=== PATIENT | female | born 1995 | race Caucasian/White ===

== ENCOUNTER 2024-02-11 08:08 | Outpatient (OUT) | payer OTHER, SELFPAY ==
--- NOTE | 2024-02-11 08:11 | US_ITS ---
[address] [address] Patient Name: RADAMES BENJAMIN MRN: [id number] date: 1995 Sex: F Assigned Patient Location: [facility] Current Patient Location: [facility] Accession/Order Number: [id number] Exam Date: 02/11/2024 08:11 Report Date: 02/11/2024 08:47 At the request of: SCOTTY SULLIVAN Procedure: US OB transvaginal EXAMINATION: US OB transvaginal HISTORY: MISSED MENSES COMPARISON: No relevant comparison available. FINDINGS: Gutierres intrauterine gestation Gestational sac: Normal morphology, 2.27 cm, 6 weeks 6 days CRL: 4.6 mm, 6 weeks 1 day Yolk sac: 1.5 mm Heart rate: 142 beats minute Cervix: Closed, 3.5 cm The uterus is normal, anteverted, retroflexed The right ovary is normal. The left ovary is not visualized Clinical age: 7 weeks 3 days Clinical SUSANNA: 09/26/2024 Ultrasound age: 6 weeks 1 day Ultrasound SUSANNA: 10/05/2024 US/US OB transvaginal IMPRESSION: Viable gutierres intrauterine gestation measuring 6 weeks 1 day Electronically authenticated by: IRINEO COMBS Date: 02/11/2024 08:47
== END 2024-02-11 08:09 | disposition home or self-care (01) ==
LOC: NOMS 08:08
PROVIDERS: PCP Family Medicine; Visit Provider Obstetrics & Gynecology
DX: Z34.91 Encounter for supervision of normal pregnancy, unspecified, first trimester (principal)
CPT/HCPCS: 76817

== ENCOUNTER 2024-02-18 11:48 | Emergency (ER) | payer SELFPAY ==
[2024-02-18 12:01] VITALS: BP 160/84; PULSE 98; TEMP 36.8; O2SAT 98
[2024-02-18 12:43] LABS: Bilirubin Urine NEGATIVE (NEGATIVE); Blood Urine NEGATIVE (NEGATIVE); Clarity Urine CLEAR (CLEAR); Color Urine YELLOW (YELLOW); Glucose Urine UA NEGATIVE (NEGATIVE); Ketones Urine NEGATIVE (NEGATIVE); Leukocyte Esterase Urine NEGATIVE (NEGATIVE); Nitrite Urine NEGATIVE (NEGATIVE); Protein Urine NEGATIVE (NEG/TRACE); Specific Gravity Urine 1.025 (1.005-1.025); pH Urine 6.5 (5.0-9.0)
[2024-02-18 12:55] LABS: Bacteria Urine MODERATE #/HPF (NONE SEEN); Cast Seen? NONE SEEN #/LPF (NONE SEEN); Crystals Seen? None Seen #/HPF (None Seen); Mucus Urine LARGE (NONE SEEN); RBC Urine 0-2 #/HPF (0-2); Squamous Epithelial Cell Urine MODERATE #/LPF (NONE/RARE); Urine Culture Indicated YES
[2024-02-18 13:38] VITALS: BP 131/77
--- NOTE | 2024-02-18 14:21 | ED.GENADUL1 ---
HPI HPI - General Adult General Chief complaint: OB/Uterine Contractions Stated complaint: HIGH BLOOD PRESSURE Time Seen by Provider: 02/18/24 13:44 Source: patient Mode of arrival: walk-in History of Present Illness HPI narrative: Pt is a 28yo female who is presenting to the ER today with chief complaint of hypertension. Patient has multiple mild side effects that she is relating to either side effects of labetalol or hypertension. Patient is a . Patient's [employer] is Dr. Dhillon. Patient came into the ER today because she knows that her [employer] will be out of town tomorrow. Patient had elevated blood pressure at home today so came to the ER for evaluation and helps to get recommendations from Dr. Dhillon and what to do with her blood pressure before he goes out of town. Patient has a intake appointment next week on February 23. Patient has no vaginal bleeding, no discharge. No belly pain nausea or vomiting. Patient intermittently feels lightheaded, sometimes dizzy, sometimes minimal headache. Patient sometimes feels itchy. Patient has been on labetalol, she increased her dose from 100 to 200 mg twice a day. Patient was sitting in the ER secondary to ER volume and computer national difficulties with [employer]. Patient blood pressure came down to the 130s over 70s in the ER. Patient will check her blood pressure with a wrist cuff at work. Patient does not have her own blood pressure cuff at home. Patient had hypertension throughout her first . No other acute complaints at this time. Patient currently has no headache, vision or hearing changes. No chest pain or shortness of breath. Patient has 2 family members at bedside. REVIEW OF SYSTEMS: Unless otherwise stated in this report the patient's positive and negative responses for review of systems for constitutional, eyes, ENT, cardiovascular, respiratory, gastrointestinal, neurological, , musculoskeletal, and integument systems and related systems to the presenting problem are either stated in the history of present illness or were not pertinent or were negative for the symptoms and/or complaints related to the presenting medical problem vital signs reviewed and patient is not hypoxic. ? General: The patient appears well and in no apparent distress. Patient is resting comfortably on cart. Not toxic, lethargic, or listless. Skin: Warm, dry, no pallor noted. There is no rash noted. Head: Normocephalic, atraumatic Eye: Normal conjunctiva, no drainage, EOMI. PERRL. Ears, Nose, Mouth, and Throat: oral mucosa is moist. Nares patent. Mouth without vesicles. Cardiovascular: Regular Rate and Rhythm, no murmurs, gallops, or rubs Respiratory: Patient is in no distress, no accessory muscle use, lungs are clear to auscultation, no wheezing, rales or rhonchi Back: non-tender, no CVA tenderness bilaterally to percussion. NO CTLS midline or paracervical tenderness to palpation. GI: Soft, no tenderness to palpation, no masses appreciated. No rebound, guarding, or rigidity noted. Musculoskeletal: The patient has full range of motion of all extremities and joints with no difficulty. Patient has no motor, no sensory deficits. Neurological: A&O x4, normal speech, no focal neurological deficits. Psychiatric: Cooperative Musculoskeletal: The patient has full range of motion of all extremities and joints with no difficulty. Patient has no motor, no sensory deficits. Neurological: A&O x4, normal speech, no focal neurological deficits. Psychiatric: Cooperative Related Data Home Medications ?Medication ?Instructions ?Recorded ?Confirmed citalopram 20 mg tablet 20 mg PO DAILY 02/18/24 02/18/24 labetalol 100 mg tablet 200 mg PO Q12H 02/18/24 02/18/24 Previous Rx's ?Medication ?Instructions ?Recorded ondansetron 4 mg disintegrating 4 mg PO Q4H PRN nausea and 02/18/24 tablet vomiting 3 days #6 tabs Allergies Allergy/AdvReac Type Severity Reaction Status Date / Time No Known Drug Allergies Allergy Verified 02/18/24 12:01 Opioid HPI Opioid Management Most Recent Opioid Data: No Data to Display Exam Constitutional Vital Signs, click to edit/add: Last Vital Signs Temp 98.2 F 02/18/24 12:01 Pulse 82 02/18/24 14:25 Resp 18 02/18/24 14:25 BP 130/70 02/18/24 14:25 Pulse Ox 100 02/18/24 14:25 O2 Del Method Room Air 02/18/24 12:01 Course Vital Signs Vital signs: Vital Signs Temperature 98.2 F 02/18/24 12:01 Pulse Rate 98 H 02/18/24 12:01 Respiratory Rate 18 02/18/24 12:01 Blood Pressure 160/84 H 02/18/24 12:01 Pulse Oximetry 98 02/18/24 12:01 Oxygen Delivery Method Room Air 02/18/24 12:01 Temperature 98.2 F 02/18/24 12:01 Pulse Rate 82 02/18/24 14:25 Respiratory Rate 18 02/18/24 14:25 Blood Pressure 130/70 02/18/24 14:25 Pulse Oximetry 100 02/18/24 14:25 Oxygen Delivery Method Room Air 02/18/24 12:01 Medical Decision Making MDM Narrative Medical decision making narrative: Patient blood pressure has come down on its own. Patient's case was discussed with LUIS F Ceballos from the [employer] office who is also working the ER today. I also discussed the case with Dr. Dhillon. Patient will be starting to take 200 mg of labetalol 3 times a day. Patient will follow-up next Wednesday on February 21 in the office with Madisyn Silvestre for reevaluation of hypertension in the OB office. Patient is asymptomatic at discharge. Dr. Dhillon was kind enough to speak to the patient in the room on the telephone in the ER today. Madisyn Silvestre spoke to the patient at discharge as well and spoke to members in the room in the ER Lab Data Labs: Lab Results 02/18/24 Range/Units 12:07 Urine Color Yellow (YELLOW) Urine Clarity Clear (CLEAR) Urine pH 6.5 (5.0-9.0) Ur Specific [place] 1.025 (1.005-1.025) Urine Protein Negative (NEG/TRACE) mg/dL Urine Glucose (UA) Negative (NEGATIVE) mg/dL Urine Ketones Negative (NEGATIVE) mg/dL Urine Occult Blood Negative (NEGATIVE) Urine Nitrite Negative (NEGATIVE) Urine Bilirubin Negative (NEGATIVE) Urine Urobilinogen 1.0 (0.2-1.0) EU/dL Ur Leukocyte Esterase Negative (NEGATIVE) Urine RBC 0-2 (0-2) #/HPF Urine WBC 2-5 A (NONE SEEN) #/HPF Ur Squamous Epith Cells Moderate A (NONE/RARE) #/LPF Urine Crystals None seen (None Seen) #/HPF Urine Bacteria Moderate A (NONE SEEN) #/HPF Urine Casts None seen (NONE SEEN) #/LPF Urine Mucus Large A (NONE SEEN) Ur Culture Indicated? Yes Discharge Plan Discharge Stand Alone Forms: Portal Instructions Chief Complaint: OB/Uterine Contractions Clinical Impression: Hypertension, Patient Disposition: Home, Self-Care Time of Disposition Decision: 14:16 Condition: Fair Prescriptions / Home Meds: New ondansetron 4 mg tablet,disintegrating 4 mg PO Q4H PRN (Reason: nausea and vomiting) 3 Days Qty: 6 0RF No Action citalopram 20 mg tablet 20 mg PO DAILY labetalol 100 mg tablet 200 mg PO Q12H Print Language: Luxembourger Instructions: (ED), Hypertension (ED) Additional Instructions: Increase your labetolol 200mg to three times a day Call Wednesday AM to be on the schedule for Wednesday to Madisyn KERNS in Dr Dhillon office Use zofran as needed for nausea Referrals: Hernán Mccarthy MD [Primary Care Provider] - 1 week Discharge Date/Time: 02/18/24 14:26
[2024-02-18 14:25] VITALS: BP 130/70; PULSE 82; O2SAT 100
== END 2024-02-18 14:26 | disposition home or self-care (01) ==
PROVIDERS: Emergency Provider Emergency Medicine; PCP Family Medicine
DX: O16.1 Unspecified maternal hypertension, first trimester (principal); Z3A.08 8 weeks gestation of pregnancy
CPT/HCPCS: 81001; 87086; 99283

== ENCOUNTER 2024-03-15 13:40 | Outpatient (OUT) | payer OTHER, SELFPAY ==
[2024-03-15 14:59] LABS: Basophils Absolute Auto 0.1 10^3/uL (0.0-0.1); Basophils Percent Auto 0.4 % (0.2-2.0); Eosinophils Absolute Auto 0.1 10^3/uL (0.0-0.7); Eosinophils Percent Auto 0.3 % (0.9-7.0); Hematocrit 42.7 % (36.0-48.0); Hemoglobin 14.7 g/dL (12.0-16.0); Immature Granulocytes Abs Auto 0.17 10^3/uL (0.00-0.03); Lymphocytes Absolute Auto 1.8 10^3/uL (1.2-3.8); Lymphocytes Percent Auto 10.4 % (20.5-60.0); Mean Corpuscular HGB Conc 34.4 g/dL (29.9-35.2); Mean Corpuscular Hemoglobin 31.1 pg (26.7-34.0); Mean Corpuscular Volume 90.3 fL (81.0-99.0); Mean Platelet Volume 10.8 fL (9.5-13.5); Monocytes Absolute Auto 0.8 10^3/uL (0.3-0.8); Monocytes Percent Auto 4.5 % (1.7-12.0); Neutrophils Absolute Auto 14.1 10^3/uL (1.4-6.5); Neutrophils Percent Auto 83.4 % (43.0-75.0); Platelet Count 278 10^3/uL (150-450); Red Blood Count 4.73 10^6/uL (4.20-5.40); Red Cell Distribution Width 11.6 % (11.0-15.0); White Blood Count 16.8 10^3/uL (4.0-11.0)
[2024-03-15 16:12] LABS: Estimated Average Glucose 91 mg/dL; Glycohemoglobin A1C 4.8 % (4.5-6.2)
[2024-03-16 06:10] LABS: HBsAg Screen Negative (Negative); HCV Ab Non Reactive (Non Reactive)
[2024-03-16 07:11] LABS: Rubella Antibodies, IgG 1.94 index (Immune >0.99)
[2024-03-16 13:09] LABS: Rapid Plasma Reagin, Quant Non Reactive titer (NonRea<1:1)
[2024-03-18 01:08] LABS: Final Interpretation HIV Negative (.); HIV 1 Ab Non Reactive (Non Reactive); HIV 2 Ab Non Reactive (Non Reactive); HIV Ab/p24 Ag Screen Preliminary Reactive (Non Reactive); HIV-1 RNA Non Reactive (Non Reactive); HIV-2 RNA Non Reactive (Non Reactive); Interpretation: Negative (.)
== END 2024-03-15 13:41 | disposition home or self-care (01) ==
LOC: LAB 13:41
PROVIDERS: PCP Family Medicine; Visit Provider Obstetrics & Gynecology
DX: Z36.0 Encounter for antenatal screening for chromosomal anomalies (principal); N92.6 Irregular menstruation, unspecified
CPT/HCPCS: 36415; 83036; 85025; 86592; 86702; 86762; 86803; 86850; 86900; 86901; 87086; 87340; 87389; 87535

== ENCOUNTER 2024-05-18 10:35 | Outpatient (OUT) | payer OTHER, SELFPAY ==
--- NOTE | 2024-05-18 10:39 | US_ITS ---
[address] [address] Patient Name: RADAMES BENJAMIN MRN: [id number] date: 1995 Sex: F Assigned Patient Location: [facility] Current Patient Location: [facility] Accession/Order Number: [id number] Exam Date: 05/18/2024 10:40 Report Date: 05/18/2024 12:45 At the request of: SCOTTY SULLIVAN Procedure: US OB anatomy EXAMINATION: US OB anatomy, US OB cervical length HISTORY: ANATOMY COMPARISON: No relevant comparison available. TECHNIQUE: Transabdominal sonographic examination was performed for obstetrical and evaluation. FINDINGS: Number: 1 Heart Rate: 159 bpm H.B. /min Amniotic Fluid Volume: Subjectively normal position: Transverse presentation, transverse lie Placental Location: Anterior, the placental edge is 5.4 cm in the internal cervical os Cervix Length: 4.91 cm , closed Normal anatomy: Lateral ventricles, cerebellum, posterior fossa, nose, lips, orbits, four-chamber heart, diaphragm, stomach, kidneys, abdominal cord insertion, bladder, umbilical arteries, extremities Nonvisualized: RVOT, LVOT Suboptimal visualization, three-vessel cord, spine BIOMETRY: BPD: 4.82 cm; 20 weeks 4 days; 73.50 % HC: 18.55 cm; 20 weeks 6 days; 80.70 % AC: 17.28 cm; 22 weeks 2 days; 96.20 % FL: 3.29 cm; 20 weeks 2 days; 52.60 % EFW:433.92 g; 97 %, 15 ounces FL/AC: 19.04 FL/BPD: 68.26 HC/AC: 1.07 GESTATIONAL AGE: Age by EDC: 20 weeks 0 days SUSANNA by EDC: 2024-10-05 Age by current US: 21 weeks 0 days SUSANNA by current US: 2024-09-28 US/US OB anatomy IMPRESSION: Suboptimal nonvisualization of anatomy as detailed related to maternal body habitus and position Viable intrauterine gestation measuring 20 weeks 0 days Closed cervix measuring 5 cm in length *Reference: [employer] Practice Guideline for the performance of Obstetric Ultrasound Examinations, May 02, 2007. Electronically authenticated by: IRINEO COMBS Date: 05/18/2024 12:45
--- NOTE | 2024-05-18 10:39 | US_ITS ---
[address] [address] Patient Name: RADAMES BENJAMIN MRN: [id number] date: 1995 Sex: F Assigned Patient Location: [facility] Current Patient Location: [facility] Accession/Order Number: [id number] Exam Date: 05/18/2024 10:40 Report Date: 05/18/2024 12:45 At the request of: SCOTTY SULLIVAN Procedure: US OB cervical length EXAMINATION: US OB anatomy, US OB cervical length HISTORY: ANATOMY COMPARISON: No relevant comparison available. TECHNIQUE: Transabdominal sonographic examination was performed for obstetrical and evaluation. FINDINGS: Number: 1 Heart Rate: 159 bpm H.B. /min Amniotic Fluid Volume: Subjectively normal position: Transverse presentation, transverse lie Placental Location: Anterior, the placental edge is 5.4 cm in the internal cervical os Cervix Length: 4.91 cm , closed Normal anatomy: Lateral ventricles, cerebellum, posterior fossa, nose, lips, orbits, four-chamber heart, diaphragm, stomach, kidneys, abdominal cord insertion, bladder, umbilical arteries, extremities Nonvisualized: RVOT, LVOT Suboptimal visualization, three-vessel cord, spine BIOMETRY: BPD: 4.82 cm; 20 weeks 4 days; 73.50 % HC: 18.55 cm; 20 weeks 6 days; 80.70 % AC: 17.28 cm; 22 weeks 2 days; 96.20 % FL: 3.29 cm; 20 weeks 2 days; 52.60 % EFW:433.92 g; 97 %, 15 ounces FL/AC: 19.04 FL/BPD: 68.26 HC/AC: 1.07 GESTATIONAL AGE: Age by EDC: 20 weeks 0 days SUSANNA by EDC: 2024-10-05 Age by current US: 21 weeks 0 days SUSANNA by current US: 2024-09-28 US/US OB cervical length IMPRESSION: Suboptimal nonvisualization of anatomy as detailed related to maternal body habitus and position Viable intrauterine gestation measuring 20 weeks 0 days Closed cervix measuring 5 cm in length *Reference: [employer] Practice Guideline for the performance of Obstetric Ultrasound Examinations, May 02, 2007. Electronically authenticated by: IRINEO COMBS Date: 05/18/2024 12:45
--- OUTSIDE RECORDS SUMMARY | 2024-05-18 10:39 | XMS_ITS | CCD ---
Author Organization [facility] Care Team Providers Care Client Director Name Role Phone LAURIE, DR FAJARDO Consulting Unavailable LAURIE, DR FAJARDO Primary Care Unavailable LAURIE, DR FAJARDO Attending Unavailable LAURIE, DR FAJARDO Admitting Unavailable LAURIE, DR FAJARDO Consulting Unavailable LUIS MIGUEL, PENELOPE Admitting Unavailable LUIS MIGUEL, PENELOPE Attending Unavailable MIGUEL ÁNGEL, DR HANNA Primary Care Unavailable DOMINGO, DR MICHELLE Matthews Consulting Unavailable PENELOPE BOLANOS Consulting Unavailable LAURIE, DR FAJARDO Consulting Unavailable LAURIE, DR FAJARDO Attending Unavailable MIGUEL ÁNGEL, DR HANNA Primary Care Unavailable LAURIE, DR FAJARDO Admitting Unavailable LAURIE, DR FAJARDO Attending Unavailable CIRO, DR HILL Consulting Unavailable MIGUEL ÁNGEL, DR HANNA Primary Care Unavailable LAURIE, DR FAJARDO Admitting Unavailable LAURIE, DR FAJARDO Procedure Practitioner Unavailab le LAUIRE, DR FAJARDO Consulting Unavailable PILY VANG Consulting Unavailab LEXIE Bender Consulting Unavailable LAURIE, DR FAJARDO Admitting Unavailable MIGUEL ÁNGEL, DR HANNA Primary Care Unavailable LAURIE, DR FAJARDO Attending Unavailable LAURIE, DR FAJARDO Consulting Unavailable LAURIE, DR FAJARDO Attending Unavailable MIGUEL ÁNGEL, DR HANNA Primary Care Unavailable LAURIE, DR FAJARDO Admitting Unavailable LAURIE, DR FAJARDO Consulting Unavailable LAURIE, DR FAJARDO Admitting Unavailable LAURIE, DR FAJARDO Attending Unavailable MIGUEL ÁNGEL, DR HANNA Primary Care Unavailable GARRET, DR IRINEO Pompa Consulting Unavailable LAURIE, DR FAJARDO Attending Unavailable LAURIE, DR FAJARDO Admitting Unavailable MIGUEL ÁNGEL, DR HANNA Primary Care Unavailable LAURIE, DR FAJARDO Consulting Unavailable LAURIE, DR FAJARDO Attending Unavailable LAURIE, DR FAJARDO Consulting Unavailable MIGUEL ÁNGEL, DR HANNA Primary Care Unavailable LAURIE, DR FAJARDO Admitting Unavailable LAURIE, DR FAJARDO Consulting Unavailable PENELOPE BOLANOS Admitting Unavailable MIGUEL ÁNGEL, DR HANNA [facility] Care Unavailable PENELOPE BOLANOS Attending Unavailable MANUELEBER, DR MICHELLE Matthews Consulting Unavailable PENELOPE BOLANOS Consulting Unavailable MIGUEL ÁNGEL, DR HANNA [facility] Care Unavailable GARRET, DR IRINEO [place] Consulting Unavailable LAURIE, DR FAJARDO Attending Unavailable LAURIE, DR FAJARDO Admitting Unavailable LAURIE, DR FAJARDO Consulting Unavailable LAURIE, DR FAJARDO Consulting Unavailable LUIS MIGUEL, PENELOPE Admitting Unavailable LUIS MIGUEL, PENELOPE Attending Unavailable MIGUEL ÁNGEL, DR HANNA [facility] Care Unavailable DOMNIGO, DR MICHELLE Matthews Consulting Unavailable LAURIE, DR FAJARDO Attending Unavailable LAURIE, DR FAJARDO Admitting Unavailable DAIANAY, DR HANNA [facility] Care Unavailable DAIANAY, DR HANNA [facility] Care Unavailable LAURIE, DR FAJARDO Attending Unavailable LAURIE, DR FAJARDO Admitting Unavailable LAURIE, DR FAJARDO Attending Unavailable LAURIE, DR FAJARDO Admitting Unavailable DAIANAY, DR HANNA [facility] Unavailable LAURIE, DR FAJARDO Consulting Unavailable LAURIE, DR FAJARDO Attending Unavailable MIGUEL ÁNGEL, DR HANNA [facility] Unavailable LAURIE, DR FAJARDO Admitting Unavailable LAURIE, DR FAJARDO Admitting Unavailable GARRET, DR IRINEO [place] Consulting Unavailable MIGUEL ÁNGEL, DR HANNA [facility] Unavailable LAURIE, DR FAJARDO Attending Unavailable LAURIE, DR FAJARDO Consulting Unavailable LAURIE, DR FAJARDO Attending Unavailable MIGUEL ÁNGEL, DR HANNA [facility] Unavailable LAURIE, DR FAJARDO Admitting Unavailable MD Jacques Mccarthy Primary Care Provider [phone] DO Terry Dudley Emergency Provider Terry Dudley Admitting Unavailable Terry Dudley Attending Unavailable Jacques Mccarthy Primary Care Unavailable SCOTTY SULLIVAN Attending Unavailable CARYL GAONA Attending Unavailable SCOTTY SULLIVAN Attending Unavailable CARYL GAONA Attending Unavailable Medications Current Medications Medication Drug Class(es) Dates Sig (Normalized) Sig (Original) citalopram 20 mg oral tablet (1 source) Serotonin Reuptake Inhibitor Start: 01-31-2024 take 1 tablet by mouth once daily Citalopram (Celexa) 20 mg tablet Active 20 MG PO Daily January 31, 2024 12:00am labetalol hydrochloride 100 mg oral tablet (1 source) beta-Adrenergic All Start: 01-31-2024 take 100 mg by mouth twice daily Labetalol Active 100 MG PO Twice daily January 31, 2024 12:00am Problems Active Problems Problem Classification Problem Date Documented Date Episodic/Chronic Anxiety disorders (1 source) Anxiety disorder, unspecified; Translations: [ANXIETY DISORDER UNSPECIFIED] Onset: 01-15-2021 Chronic Essential hypertension (1 source) Hypertensive disorder; Translations: [Essential (primary) hypertension] 01-31-2024 Chronic Hypertension complicating ; childbirth and the puerperium (9 sources) Unspecified pre-existing hypertension complicating , third trimester; Translations: [Pre-existing hypertension with pre-eclampsia, complicating childbirth] Onset: 01-08-2021 Chronic Hypertension complicating ; childbirth and the puerperium (5 sources) Unspecified pre-eclampsia, third trimester; Translations: [Gestational [-induced] hypertension without significant proteinuria, first trimester] Onset: 01-14-2021 Episodic Immunizations and screening for infectious disease (1 source) Encounter for screening for human papillomavirus (HPV); Translations: [ENC SCREENING HUMAN PAPILLOMAVIRUS] Onset: 10-09-2021 Episodic Other and delivery including normal (6 sources) Encounter for care and examination of lactating mother; Translations: [Single live ] Onset: 02-11-2021 Episodic Other screening for suspected conditions (not mental disorders or infectious disease) (12 sources) Encounter for screening for malignant neoplasm of cervix; Translations: [Encounter for screening for Streptococcus B] Onset: 12-05-2020 Episodic Unclassified (1 source) CONTACT W/AND (SUSP) EXPOS COVID-19; Translations: [CONTACT W/AND (SUSP) EXPOS COVID-19] Onset: 02-27-2021 Past or Other Problems Problem Classification Problem Date Documented Da te Episodic/Chronic Diabetes mellitus without complication (4 sources) Other abnormal glucose; Translations: [OTHER ABNORMAL GLUCOSE] Onset: 12-12-2020 Episodic Diabetes or abnormal glucose tolerance complicating ; childbirth; or the puerperium (6 sources) Gestational diabetes mellitus in childbirth, diet controlled; Translations: [Gestational diabetes mellitus in , diet controlled] Onset: 05-20-2021 Episodic distress and abnormal forces of labor (1 source) Labor and delivery complicated by stress, unspecified; Translations: [LABOR AND DEL COMP STRESS UNS] Onset: 02-27-2021 Episodic Other complications of (1 source) Other mental disorders complicating , third trimester; Translations: [OTH MENTAL D/O COMP PREG THIRD TRI] Onset: 01-15-2021 Episodic Other connective tissue disease (3 sources) Other specified soft tissue disorders; Translations: [OTHER SPEC SOFT TISSUE DISORDERS] Onset: 01-13-2021 Episodic Residual codes; unclassified (1 source) 37 weeks gestation of ; Translations: [37 WEEKS GESTATION OF ] Onset: 02-27-2021 Episodic Residual codes; unclassified (1 source) 36 weeks gestation of ; Translations: [36 WEEKS GESTATION OF ] Onset: 01-31-2021 Episodic Residual codes; unclassified (1 source) 35 weeks gestation of ; Translations: [35 WEEKS GESTATION OF ] Onset: 01-26-2021 Episodic Residual codes; unclassified (1 source) 34 weeks gestation of ; Translations: [34 WEEKS GESTATION OF ] Onset: 01-24-2021 Episodic Residual codes; unclassified (1 source) 28 weeks gestation of ; Translations: [28 WEEKS GESTATION OF ] Onset: 12-10-2020 Episodic Results Test Name Value Interpretation Reference Range Facility Activated partial thrombopla stin time (aPTT) in platelet poor plasma by coagulation aOrdered By: Terry Dudley on 01-31-2024 aPTT Coag (PPP) [Time] 26.1 s 25.1-36.5 [facility] Comment on above: A hematocrit value g reater than 55% may lead to inaccurate results in coagulation testing. Patients having hematocrit values >55% require a special collection tube for coagulation studies. Please contact the laboratory at [phone] for redraw instructions. Alanine aminotransferase [En zymatic activity/volume] in Serum or PlasmaOrdered By: Terry Dudley on 01-31-2024 ALT [Catalytic activity/Vol] 22 U/L Normal 7-52 [facility] Comment on above: Performed By: #### H S TROP, PTT, CMP, DDIMER, BNP, CK, PT, CBC #### [address] Albumin [Mass/volume] in Ser um or Plasma by Bromocresol green (BCG) dye binding methoOrdered By: Terry Dudley on 01-31-2024 Albumin BCG dye [Mass/Vol] 4.7 g/dL 3.5-5.7 [facility] Alkaline phosphatase [Enzyma tic activity/volume] in Serum or PlasmaOrdered By: Terry Dudley on 01-31-2024 ALP [Catalytic activity/Vol] 67 U/L Normal 34-104 [facility] Comment on above: Performed By: #### H S TROP, PTT, CMP, DDIMER, BNP, CK, PT, CBC #### [address] Aspartate aminotransferase [ Enzymatic activity/volume] in Serum or PlasmaOrdered By: Terry Dudley on 01-31-2024 AST [Catalytic activity/Vol] 17 U/L Normal 13-39 [facility] Comment on above: Performed By: #### H S TROP, PTT, CMP, DDIMER, BNP, CK, PT, CBC #### [address] Automated basophil %Ordered By: Terry Dudley on 01-31-2024 Basophils/100 WBC (Bld) 0.6 % Normal . [facility] Comment on above: Performed By: #### H S TROP, PTT, CMP, DDIMER, BNP, CK, PT, CBC #### [address] Automated basophil countOrde red By: Terry Dudley on 01-31-2024 Basophils (Bld) [#/Vol] 0.1 10*3/uL Normal 0.0-0.2 [facility] Comment on above: Result Comment: PERF ORMED BY: [place] [address] PATHOLOGIST MEDICAL APPOINTMENT CLERK CARLOS HITCHCOCK M.D. Performed By: #### H S TROP, PTT, CMP, DDIMER, BNP, CK, PT, CBC #### [address] Automated blood monocyte cou ntOrdered By: Terry Dudley on 01-31-2024 Monocytes (Bld) [#/Vol] 1.3 10*3/uL High 0.0-0.8 [facility] Comment on above: Performed By: #### H S TROP, PTT, CMP, DDIMER, BNP, CK, PT, CBC #### [facility] [address] [place] [address] Automated eosinophil %Ordere d By: Terry Dudley on 01-31-2024 Eosinophils/100 WBC (Bld) 0.3 % Normal . [facility] Comment on above: Performed By: #### H S TROP, PTT, CMP, DDIMER, BNP, CK, PT, CBC #### [address] Automated eosinophil countOr dered By: Terry Dudley on 01-31-2024 Eosinophils (Bld) [#/Vol] 0.1 10*3/uL Normal 0.0-0.45 [facility] Comment on above: Performed By: #### H S TROP, PTT, CMP, DDIMER, BNP, CK, PT, CBC #### [address] Automated monocyte %Ordered By: Terry Dudley on 01-31-2024 Monocytes/100 WBC (Bld) 7.5 % Normal . [facility] Comment on above: Performed By: #### H S TROP, PTT, CMP, DDIMER, BNP, CK, PT, CBC #### [address] Automated neutrophil %Ordere d By: Terry Dudley on 01-31-2024 Neutrophils/100 WBC (Bld) 79.8 % Normal . [facility] Comment on above: Performed By: #### H S TROP, PTT, CMP, DDIMER, BNP, CK, PT, CBC #### [address] BNP ser/plasOrdered By: Delgado Dudley on 01-31-2024 Natriuretic peptide B (Bld) [Mass/Vol] 30.0 pg/mL Normal 5-100 [facility] Comment on above: Result Comment: PERF ORMED BY: [place] [address] PATHOLOGIST MEDICAL APPOINTMENT CLERK CARLOS HITCHCOCK M.D. Performed By: #### H S TROP, PTT, CMP, DDIMER, BNP, CK, PT, CBC #### [address] Bilirubin Test strip Ql (U)O rdered By: Terry Dudley on 01-31-2024 Bilirubin Ql (U) Negative Negative [facility] Bilirubin.total [Mass/volume ] in Serum or PlasmaOrdered By: Terry Dudley on 01-31-2024 Bilirubin [Mass/Vol] 0.5 mg/dL Normal 0.3-1.0 [facility] Comment on above: Performed By: #### H S TROP, PTT, CMP, DDIMER, BNP, CK, PT, CBC #### [place] [address] [place] Calcium [Mass/volume] in Ser um or PlasmaOrdered By: Terry Dudley on 01-31-2024 Calcium [Mass/Vol] 9.6 mg/dL Normal 8.6-10.3 [facility] Comment on above: Performed By: #### H S TROP, PTT, CMP, DDIMER, BNP, CK, PT, CBC #### [place] [address] [place] Carbon dioxide, total [Moles /volume] in Serum or PlasmaOrdered By: Terry Dudley on 01-31-2024 CO2 [Moles/Vol] 30.1 mmol/L Normal 21.0-31.0 [facility] Comment on above: Performed By: #### H S TROP, PTT, CMP, DDIMER, BNP, CK, PT, CBC #### [place] [address] [place] Chloride [Moles/volume] in S marty or PlasmaOrdered By: Terry Dudley on 01-31-2024 Chloride [Moles/Vol] 101 mmol/L Normal 98-107 [facility] Comment on above: Performed By: #### H S TROP, PTT, CMP, DDIMER, BNP, CK, PT, CBC #### [address] Color of Urine by AutoOrdere d By: Terry Dudley on 01-31-2024 Color (U) Colorless Normal Yellow [facility] Comment on above: Order Comment: Name Collection Type:: Clean-Voided Midstream Performed By: #### U A, UHCG #### [address] Complete Blood Count Auto Di ffon 01-31-2024 Mean Corpuscular HGB Conc 34.6 g/dL Normal 32.0-35.0 [facility] Comment on above: Performed By: #### H S TROP, PTT, CMP, DDIMER, BNP, CK, PT, CBC #### [address] Monocytes/100 WBC (Bld) 14.85 % Normal 0.00-20.00 [facility] Comment on above: Performed By: #### H S TROP, PTT, CMP, DDIMER, BNP, CK, PT, CBC #### [address] NRBC% 0.0 /100{WBC} Normal 0-0.5 [facility] Comment on above: Performed By: #### H S TROP, PTT, CMP, DDIMER, BNP, CK, PT, CBC #### [address] Comprehensive Metabolic Pane urszula 01-31-2024 Albumin [Mass/Vol] 4.7 g/dL Normal 3.5-5.7 [facility] Comment on above: Performed By: #### H S TROP, PTT, CMP, DDIMER, BNP, CK, PT, CBC #### [address] Creatinine Clr Calc Pharmacy 119.17 Normal [facility] Comment on above: Result Comment: PERF ORMED BY: [place] [address] PATHOLOGIST MEDICAL APPOINTMENT CLERK CARLOS HITCHCOCK M.D. Performed By: #### H S TROP, PTT, CMP, DDIMER, BNP, CK, PT, CBC #### [address] GFR/1.73 sq M.predicted MDRD (S/P/Bld) [Vol rate/Area] mL/min/{1.73_m2} Normal [facility] Comment on above: Performed By: #### H S TROP, PTT, CMP, DDIMER, BNP, CK, PT, CBC #### [address] Creatine kinase [Enzymatic a ctivity/volume] in Serum or PlasmaOrdered By: Terry Dudley on 01-31-2024 CK [Catalytic activity/Vol] 76 U/L Normal 30-223 [facility] Comment on above: Performed By: #### H S TROP, PTT, CMP, DDIMER, BNP, CK, PT, CBC #### [address] Creatinine [Mass/volume] in Serum or PlasmaOrdered By: Terry Dudley on 01-31-2024 Creatinine [Mass/Vol] 0.80 mg/dL Normal 0.60-1.20 [facility] Comment on above: Performed By: #### H S TROP, PTT, CMP, DDIMER, BNP, CK, PT, CBC #### [address] D-Dimer High Sensitivityon 0 01-31-2024 D-Dimer High Sensitivity < 200 Normal 0-243 [facility] Comment on above: Result Comment: The reference range for D-dimer is <243 ng/mL D-dimer units. D-dimer results must be used in conjunction with a clinical pretest probability (PTP) assessment model for deep vein thrombosis (DVT) and pulmonary embolism (PE). Results <230 ng/mL d-dimer units can be used as a negative predictor in patients with low or moderate probability for DVT/PE. Results above the exclusion threshold of 230 ng/ml D-dimer units for DVT/PE may indicate the need for further diagnostic testing. D-Dimer can be increased in hospitalized patients due to co-morbid conditions. A hematocrit value greater than 55% may lead to inaccurate results in coagulation testing. Patients having hematocrit values >55% require a special collection tube for coagulation studies. Please contact the laboratory at [phone] for redraw instructions. PERFORMED BY: [place] [address] PATHOLOGIST MEDICAL APPOINTMENT CLERK CARLOS HITCHCOCK M.D. Performed By: #### H S TROP, PTT, CMP, DDIMER, BNP, CK, PT, CBC #### [place] [id number] [facility] ECG 12 lead ECGon 01-31-2024 ECG 12 lead ECG [facility] [place] [address] [place] [address] Electrocardiograph Report Signed Patient: Samantha Benjamin MR#: [id number] : 1995 Acct:[id number] Age/Sex: 28 / F ADM Date: 01/31/24 Loc: ER Room: Type: [facility] ER Attending Dr: Ordering Provider: Terry Dudley DO Date of Service: 01/31/2408/25/1404 ECG/ECG 12 lead ECG: Recheck/Abnormal Lab/Rx Copies to: Test Reason : Blood Pressure : 168/091 mmHG Vent. Rate : 111 BPM Atrial Rate : 111 BPM P-R Int : 126 ms QRS Dur : 080 ms QT Int : 318 ms P-R-T Axes : 079 098 057 degrees QTc Int : 432 ms Sinus tachycardia Rightward axis Borderline ECG No previous ECGs available Confirmed by TERRY DUDLEY DO ([id number]) on 01/31/2024 7:24:49 PM Referred By: Electronically Signed By:TERRY DUDLEY DO Transcribed By: MUS Signed By Terry Dudley DO 1923 Normal [facility] Erythrocyte distribution wid th [Ratio] by Automated countOrdered By: Terry Dudley on 01-31-2024 Erythrocyte distribution width (RBC) [Ratio] 12.4 % Normal 11.9-15.3 [facility] Comment on above: Performed By: #### H S TROP, PTT, CMP, DDIMER, BNP, CK, PT, CBC #### [facility] [address] [id number] [facility] Erythrocytes [#/volume] in B lood by Automated countOrdered By: Terry Dudley on 01-31-2024 RBC (Bld) [#/Vol] 4.93 10*6/uL Normal 3.60-5.00 [facility] Comment on above: Performed By: #### H S TROP, PTT, CMP, DDIMER, BNP, CK, PT, CBC #### [facility] [address] [place] [address] [facility] Fibrin D-dimer [Presence] in Platelet poor plasma by Latex agglutinationOrdered By: Terry Dudley on 01-31-2024 Fibrin D-dimer LA Ql (PPP) < 200 ng/mL 0-243 [facility] Comment on above: The reference range for D-dimer is <243 ng/mL D-dimer units.D-dimer results must be used in conjunction with a clinicalpretest probability (PTP) assessment model for deep veinthrombosis (DVT) and pulmonary embolism (PE). Results <230ng/mL d-dimer units can be used as a negative predictor inpatients with low or moderate probability for DVT/PE.Results above the exclusion threshold of 230 ng/ml D-dimerunits for DVT/PE may indicate the need for furtherdiagnostic testing.D-Dimer can be increased in hospitalized patients due toco-morbid conditions.A hematocrit value greater than 55% may lead to inaccurate results in coagulation testing. Patients having hematocrit values >55% require a special collection tube for coagulation studies. Please contact the laboratory at [phone] for redraw instructions. Glucose [Mass/volume] in Ser um or PlasmaOrdered By: Terry Dudley on 01-31-2024 Glucose [Mass/Vol] 91 mg/dL Normal 70-100 [facility] Comment on above: ADA recommended refe rence rangeRandom Glucose Reference Range is dependent on time and content of last meal. Glucose of more than 200 mg/dL in a nonstressed, ambulatory subject supports the diagnosis of Diabetes Mellitus. Result Comment: [place] om Glucose Reference Range is dependent on time and content of last meal. Glucose of more than 200 mg/dL in a nonstressed, ambulatory subject supports the diagnosis of Diabetes Mellitus. ADA recommended reference range Performed By: #### H S TROP, PTT, CMP, DDIMER, BNP, CK, PT, CBC #### [facility] [address] [place] [address] Glucose [Mass/volume] in Uri ne by Test stripOrdered By: Terry Dudley on 01-31-2024 Glucose Test strip (U) [Mass/Vol] Normal mg/dL Normal [facility] HCG ( test) IA.rapi d Ql (U)Ordered By: Terry Dudley on 01-31-2024 HCG ( test) Ql (U) Positive High [facility] HCG,Urineon 01-31-2024 Beta HCG ( test) Ql (U) Positive High [facility] Comment on above: Order Comment: Name Collection Type:: Clean-Voided Midstream Result Comment: PERF ORMED BY: [place] [address] PATHOLOGIST MEDICAL APPOINTMENT CLERK CARLOS HITCHCOCK M.D. Performed By: #### H S TROP, PTT, CMP, DDIMER, BNP, CK, PT, CBC #### [address] Hematocrit [Volume Fraction] of Blood by Automated countOrdered By: Terry Dudley on 01-31-2024 Hematocrit (Bld) [Volume fraction] 45.1 % Normal 34.0-46.4 [facility] Comment on above: Performed By: #### H S TROP, PTT, CMP, DDIMER, BNP, CK, PT, CBC #### [address] Hemoglobin Test strip Ql (U) Ordered By: Terry Dudley on 01-31-2024 Hemoglobin Ql (U) Negative Negative [facility] Hemoglobin [Mass/volume] in BloodOrdered By: Terry Dudley on 01-31-2024 Hemoglobin (Bld) [Mass/Vol] 15.6 g/dL High 11.8-15.4 [facility] Comment on above: Performed By: #### H S TROP, PTT, CMP, DDIMER, BNP, CK, PT, CBC #### [facility] [address] [place] [address] [place] INR in Platelet poor plasma by Coagulation assayOrdered By: Terry Dudley on 01-31-2024 INR Coag (PPP) [Relative time] 1.2 {INR} Normal [facility] Comment on above: INR Therapeutic Rang e A) Pre- and Peroperative OAT started two weeks before surgery. NOT HIP SURGERY: 1.5 - 2.5 HIP SURGERY: 2 - 3B) Primary and secondary prevention of venous THROMBOSIS: 2 - 3C) Active venous thrombosis, pulmonary embolismand prevention of recurrent venous thrombosis: 2 - 3D) Prevention of arterial thromboembolismincluding patients with mechanical heart valves: 3 - 4.5 Result Comment: INR Therapeutic Range A) Pre- and Peroperative OAT started two weeks before surgery. NOT HIP SURGERY: 1.5 - 2.5 HIP SURGERY: 2 - 3 B) Primary and secondary prevention of venous THROMBOSIS: 2 - 3 C) Active venous thrombosis, pulmonary embolism and prevention of recurrent venous thrombosis: 2 - 3 D) Prevention of arterial thromboembolism including patients with mechanical heart valves: 3 - 4.5 Performed By: #### H S TROP, PTT, CMP, DDIMER, BNP, CK, PT, CBC #### [facility] [address] [place] [address] [place] Ketones [Presence] in Urine by Test stripOrdered By: Terry Dudley on 01-31-2024 Ketones Ql (U) Negative Normal Negative [facility] Comment on above: Order Comment: Name Collection Type:: Clean-Voided Midstream Performed By: #### U A, UHCG #### [facility] [address] [place] [address] [place] Leukocyte esterase [Presence ] in Urine by Test stripOrdered By: Terry Dudley on 01-31-2024 Leukocyte esterase Test strip Ql (U) Negative Normal Negative [facility] Comment on above: Order Comment: Name Collection Type:: Clean-Voided Midstream Performed By: #### U A, UHCG #### [place] [address] [place] Leukocytes [#/volume] correc edna for nucleated erythrocytes in Blood by Automated counOrdered By: Terry Dudley on 01-31-2024 WBC corrected for nucl RBC Auto (Bld) [#/Vol] 17.5 10*3/uL High 3.8-11.6 [facility] Leukocytes [#/volume] in Blo od by Automated countOrdered By: Terry Dudley on 01-31-2024 WBC (Bld) [#/Vol] 17.5 10*3/uL High 3.8-11.6 [facility] Comment on above: Performed By: #### H S TROP, PTT, CMP, DDIMER, BNP, CK, PT, CBC #### [facility] [address] [place] [address] Lymphocytes [#/volume] in Bl ood by Automated countOrdered By: Terry Dudley on 01-31-2024 Lymphocytes (Bld) [#/Vol] 2.1 10*3/uL Normal 1.00-4.8 [facility] Comment on above: Performed By: #### H S TROP, PTT, CMP, DDIMER, BNP, CK, PT, CBC #### [facility] [address] [place] [address] [place] Lymphocytes/100 leukocytes i n Blood by Automated countOrdered By: Terry Dudley on 01-31-2024 Lymphocytes/100 WBC (Bld) 11.8 % Normal . [facility] Comment on above: Performed By: #### H S TROP, PTT, CMP, DDIMER, BNP, CK, PT, CBC #### [facility] [address] [place] [address] [place] MCH [Entitic mass] by Automa edna countOrdered By: Terry Dudley on 01-31-2024 MCH (RBC) [Entitic mass] 31.7 pg Normal 24.7-34.3 [facility] Comment on above: Performed By: #### H S TROP, PTT, CMP, DDIMER, BNP, CK, PT, CBC #### [facility] [address] [place] [address] MCHC Auto (RBC) [Mass/Vol]Or dered By: Terry Dudley on 01-31-2024 MCHC (RBC) [Mass/Vol] 34.6 g/dL 32.0-35.0 [facility] MCV [Entitic volume] by Auto mated countOrdered By: Terry Dudley on 01-31-2024 MCV (RBC) [Entitic vol] 91.4 fL Normal 80-100 [facility] Comment on above: Performed By: #### H S TROP, PTT, CMP, DDIMER, BNP, CK, PT, CBC #### [facility] [address] [place] [address] [place] Monocyte distribution width [Entitic volume] in Blood by AutomatedOrdered By: Terry Dudley on 01-31-2024 Monocyte distribution width Auto (Bld) [Entitic vol] 14.85 % 0.00-20.00 [facility] Neutrophils [#/volume] in Bl ood by Automated countOrdered By: Terry Dudley on 01-31-2024 Neutrophils (Bld) [#/Vol] 14.0 10*3/uL High 1.8-7.7 [facility] Comment on above: Performed By: #### H S TROP, PTT, CMP, DDIMER, BNP, CK, PT, CBC #### [facility] [address] Nitrite Test strip Ql (U)Ord ered By: Terry Dudley on 01-31-2024 Nitrite Ql (U) Negative Negative [facility] No Panel InformationOrdered By: Terry Dudley on 01-31-2024 Estimated GFR (CKD-EPI) > 60.0 mL/Min [facility] Creatinine Clearance (Chem 119.17 [facility] Nucleated erythrocytes [Pres ence] in Blood by Automated countOrdered By: Terry Dudley on 01-31-2024 Nucleated RBC Auto Ql (Bld) 0.0 /100{WBC} 0-0.5 [facility] Partial Thromboplastin Timeo n 01-31-2024 aPTT Coag (Bld) [Time] 26.1 s Normal 25.1-36.5 [facility] e [facility] Comment on above: Result Comment: A he matocrit value greater than 55% may lead to inaccurate results in coagulation testing. Patients having hematocrit values >55% require a special collection tube for coagulation studies. Please contact the laboratory at [phone] for redraw instructions. Performed By: #### H S TROP, PTT, CMP, DDIMER, BNP, CK, PT, CBC #### [facility] [address] Platelet mean volume [Entiti c volume] in Blood by Automated countOrdered By: Terry Dudley on 01-31-2024 Platelet mean volume (Bld) [Entitic vol] 8.7 fL Normal 6.3-10.7 [facility] Comment on above: Performed By: #### H S TROP, PTT, CMP, DDIMER, BNP, CK, PT, CBC #### [facility] [address] Platelets [#/volume] in Bloo d by Automated countOrdered By: Terry Dudley on 01-31-2024 Platelets (Bld) [#/Vol] 297 10*3/uL Normal 150-450 [facility] Comment on above: Performed By: #### H S TROP, PTT, CMP, DDIMER, BNP, CK, PT, CBC #### [facility] [address] Potassium [Moles/volume] in Serum or PlasmaOrdered By: Terry Dudley on 01-31-2024 Potassium [Moles/Vol] 3.4 mmol/L Low 3.5-5.1 [facility] Comment on above: Performed By: #### H S TROP, PTT, CMP, DDIMER, BNP, CK, PT, CBC #### [facility] [address] Protein Test strip (U) [Mass /Vol]Ordered By: Terry Dudley on 01-31-2024 Protein (U) [Mass/Vol] Negative Negative [facility] Protein [Mass/volume] in Ser um or PlasmaOrdered By: Terry Dudley on 01-31-2024 Protein [Mass/Vol] 7.7 g/dL Normal 6.4-8.9 [facility] Comment on above: Performed By: #### H S TROP, PTT, CMP, DDIMER, BNP, CK, PT, CBC #### [facility] [address] [place] [address] Prothrombin time (PT)Ordered By: Terry Dudley on 01-31-2024 PT Coag (PPP) [Time] 14.0 s High 9.0-12.9 [facility] Comment on above: A hematocrit value g reater than 55% may lead to inaccurate results in coagulation testing. Patients having hematocrit values >55% require a special collection tube for coagulation studies. Please contact the laboratory at [phone] for redraw instructions. Result Comment: A he matocrit value greater than 55% may lead to inaccurate results in coagulation testing. Patients having hematocrit values >55% require a special collection tube for coagulation studies. Please contact the laboratory at [phone] for redraw instructions. Performed By: #### H S TROP, PTT, CMP, DDIMER, BNP, CK, PT, CBC #### [address] Serum globulin measurement b y calculation (mass/volume)Ordered By: Terry Dudley on 01-31-2024 Globulin (S) [Mass/Vol] 3.0 g/dL [facility] Comment on above: Performed By: #### H S TROP, PTT, CMP, DDIMER, BNP, CK, PT, CBC #### [address] Serum or plasma albumin/glob ulin mass ratioOrdered By: Terry Dudley on 01-31-2024 Albumin/Globulin [Mass ratio] 1.6 {ratio} [facility] Comment on above: Performed By: #### H S TROP, PTT, CMP, DDIMER, BNP, CK, PT, CBC #### [address] Serum or plasma anion gap de terminationOrdered By: Terry Dudley on 01-31-2024 Anion gap [Moles/Vol] 8.3 mmol/L Normal 6.0-15.0 [facility] Comment on above: Performed By: #### H S TROP, PTT, CMP, DDIMER, BNP, CK, PT, CBC #### [facility] [address] Sodium [Moles/volume] in Ser um or PlasmaOrdered By: Terry Dudley on 01-31-2024 Sodium [Moles/Vol] 136 mmol/L Normal 136-145 [facility] Comment on above: Performed By: #### H S TROP, PTT, CMP, DDIMER, BNP, CK, PT, CBC #### [address] Specific gravity Test strip (U) [Rel density]Ordered By: Terry Dudley on 01-31-2024 Specific gravity (U) [Rel density] 1.005 1.001-1.030 [facility] Troponin I High Sensitivityo n 01-31-2024 Troponin I High Sensitivity 3.5 pg/mL Normal 0.0-15.0 [facility] Comment on above: Result Comment: PERF ORMED BY: [place] [address] PATHOLOGIST MEDICAL APPOINTMENT CLERK CARLOS HITCHCOCK M.D. Performed By: #### H S TROP, PTT, CMP, DDIMER, BNP, CK, PT, CBC #### [address] Troponin I.cardiac [Mass/vol ume] in Serum or Plasma by Detection limit <= 0.01 ng/Ordered By: Terry Dudley on 01-31-2024 Troponin I.cardiac DL <= 0.01 ng/mL [Mass/Vol] 3.5 pg/mL 0.0-15.0 [facility] Urea nitrogen [Mass/volume] in Serum or PlasmaOrdered By: Terry Dudley on 01-31-2024 Urea nitrogen [Mass/Vol] 10 mg/dL Normal 7-25 [facility] Comment on above: Performed By: #### H S TROP, PTT, CMP, DDIMER, BNP, CK, PT, CBC #### [address] Urinalysison 01-31-2024 Bilirubin,Urine Negative Normal Negative [facility] Comment on above: Order Comment: Name Collection Type:: Clean-Voided Midstream Performed By: #### U A, UHCG #### [address] Glucose Ql (U) Normal Normal Normal [facility] Comment on above: Order Comment: Name Collection Type:: Clean-Voided Midstream Performed By: #### U A, UHCG #### [address] Nitrite,Urine Negative Normal Negative [facility] Comment on above: Order Comment: Name Collection Type:: Clean-Voided Midstream Performed By: #### U A, UHCG #### [address] Occult Blood,Urine Negative Normal Negative [facility] Comment on above: Order Comment: Name Collection Type:: Clean-Voided Midstream Performed By: #### U A, UHCG #### [address] Protein,Urine Negative Normal Negative [facility] Comment on above: Order Comment: Name Collection Type:: Clean-Voided Midstream Performed By: #### U A, UHCG #### [address] Specificy [place],Urine 1.005 Normal 1.001-1.030 [facility] Comment on above: Order Comment: Name Collection Type:: Clean-Voided Midstream Performed By: #### U A, UHCG #### [address] Urobilinogen,Urine Normal Normal Normal [facility] Comment on above: Order Comment: Name Collection Type:: Clean-Voided Midstream Performed By: #### U A, UHCG #### [address] Urine appearanceOrdered By: Terry Dudley on 01-31-2024 Appearance (U) Clear Normal Clear [facility] Comment on above: Order Comment: Name Collection Type:: Clean-Voided Midstream Performed By: #### U A, UHCG #### [facility] [address] [place] [id number] [facility] Urobilinogen Test strip (U) [Mass/Vol]Ordered By: Terrythom Dudley on 01-31-2024 Urobilinogen (U) [Mass/Vol] Normal mg/dL Normal [facility] pH of Urine by Test stripOrd ered By: Terrythom Dudley on 01-31-2024 pH (U) 6.5 [pH] Normal 5.0-9.0 [facility] Comment on above: Order Comment: Name Collection Type:: Clean-Voided Midstream Performed By: #### U A, UHCG #### [facility] [address] PAP ACOG PANEL 2: 23 to 31on 10-14-2021 . . Normal [facility] Comment on above: Performed By: #### P TT #### [facility] [address] [place] [address] Kaela Dimas Age Gdln ACOG Testing - Normal [facility] Comment on above: Performed By: #### P TT #### [facility] [address] [place] [address] Kaela Dimas DIAGNOSIS: Comment Normal [facility] Comment on above: Result Comment: NEGA TIVE FOR INTRAEPITHELIAL LESION OR MALIGNANCY. CELLULAR CHANGES ASSOCIATED WITH INFLAMMATION ARE PRESENT. Performed By: #### P TT #### [facility] [address] [place] [address] Kaela Dimas Methodology: Comment Normal [facility] Comment on above: Result Comment: This liquid based ThinPrep(R) pap test was screened with the use of an image guided system. Performed By: #### P TT #### [facility] [address] [place] [address] Kaela Dimas Note: Comment Normal [facility] Comment on above: Result Comment: The Pap smear is a screening test designed to aid in the detection of premalignant and malignant conditions of the uterine cervix. It is not a diagnostic procedure and should not be used as the sole means of detecting cervical cancer. Both false-positive and false-negative reports do occur. . Performed By: #### P TT #### [facility] [address] [place] [address] Kaela Judie Performed by: Comment Normal [facility] Comment on above: Result Comment: Nancy Collins, Photocopy Operator (ASCP) Performed By: #### P TT #### [facility] [address] [place] [address] Kaela Judie Reflex Criteria: Comment Normal [facility] Comment on above: Result Comment: The HPV DNA reflex criteria were not met with this specimen result therefore, no HPV testing was performed. . Performed By: #### P TT #### [facility] [address] [place] [address] Kaela Judie Specimen adequacy: Comment Normal [facility] Comment on above: Result Comment: Sati sfactory for evaluation. Endocervical and/or squamous metaplastic cells (endocervical component) are present. Performed By: #### P TT #### [facility] [address] [place] [address] Kaela Judie CBC AUTO DIFFon 02-07-2021 BASO # 0.1 103/ul Normal 0.0-0.1 [facility] Comment on above: Performed By: #### C BC #### [facility] [address] [place] [address] Kaela Judie Basophils/100 WBC (Bld) 0.3 % Normal 0.2-2.0 [facility] Comment on above: Performed By: #### C BC #### [facility] [address] [place] [address] Kaela Judie EO # 0.1 103/ul Normal 0.0-0.7 [facility] Comment on above: Performed By: #### C BC #### [facility] [address] [place] [address] Kaela Judie Eosinophils/100 WBC (Bld) 0.5 % Critically low 0.9-7.0 [facility] Comment on above: Performed By: #### C BC #### [facility] [address] [place] [address] Kaela Judie Erythrocyte distribution width (RBC) [Ratio] 12.3 % Normal 11.0-15.0 [facility] Comment on above: Performed By: #### C BC #### [facility] [address] [place] [address] Kaela Dimas Hematocrit (Bld) [Volume fraction] 33.8 % Critically low 36.0-48.0 [facility] Comment on above: Performed By: #### C BC #### [facility] [address] [place] [address] Kaela Dimas Hemoglobin (Bld) [Mass/Vol] 11.6 g/dL Critically low 12.0-16.0 [facility] Comment on above: Performed By: #### C BC #### [facility] [address] [place] [address] Kaela Dimas IG # 0.20 10e3/ul Critically high 0.00-0.03 [facility] Comment on above: Performed By: #### C BC #### [facility] [address] [place] [address] Kaela Dimas IG % 1.2 % Critically high 0.0-0.5 [facility] Comment on above: Performed By: #### C BC #### [facility] [address] [place] [address] Kaela Dimas LYMPH # 1.6 103/ul Normal 1.2-3.8 [facility] Comment on above: Performed By: #### C BC #### [facility] [address] [place] [address] Kaela Dimas Lymphocytes/100 WBC (Bld) 9.2 % Critically low 20.5-60.0 [facility] Comment on above: Performed By: #### C BC #### [facility] [address] [place] [address] Kaela Dimas MANUAL DIFF REQ NO Normal [facility] Comment on above: Performed By: #### C BC #### [facility] [address] [place] [address] Kaela Dimas MCH (RBC) [Entitic mass] 30.8 pg Normal 26.7-34.0 [facility] Comment on above: Performed By: #### C BC #### [facility] [address] [place], [place] [address] Kaelastephanie Dimas MCHC (RBC) [Mass/Vol] 34.3 g/dL Normal 29.9-35.2 [facility] Comment on above: Performed By: #### C BC #### [facility] [address] [place], [place] [address] Kaelastephanie Dimas MCV (RBC) [Entitic vol] 89.7 fL Normal 81.0-99.0 [facility] Comment on above: Performed By: #### C BC #### [facility] [address] [place] [id number] Kaela Judie MONO # 0.9 103/ul Critically high 0.3-0.8 [facility] Comment on above: Performed By: #### C BC #### [facility] [address] [place] [id number] Kaela Judie Monocytes/100 WBC (Bld) 5.5 % Normal 1.7-12.0 [facility] Comment on above: Performed By: #### C BC #### [facility] [address] [place] [id number] Kaela Judie NEUT # 14.1 103/ul Critically high 1.4-6.5 [facility] Comment on above: Performed By: #### C BC #### [facility] [address] [place], [place] [id number] Kaela Judie Neutrophils/100 WBC (Bld) 83.3 % Critically high 43.0-75.0 [facility] Comment on above: Performed By: #### C BC #### [facility] [address] [place], [place] [address] Kaela Judie Platelet mean volume (Bld) [Entitic vol] 11.0 fL Normal 9.5-13.5 [facility] Comment on above: Performed By: #### C BC #### [facility] [address] [place], [place] [address] Kaela Judie PLT 192 103/ul Normal 150-450 [facility] Comment on above: Performed By: #### C BC #### [facility] [address] [place] [address] Kaela Dimas RBC 3.77 106/ul Critically low 4.20-5.40 [facility] Comment on above: Performed By: #### C BC #### [facility] [address] [place], [place] [address] Kaela Dimas WBC 16.9 103/ul Critically high 4.0-11.0 [facility] Comment on above: Performed By: #### C BC #### [facility] [address] [place], [place] [address] Kaela Dimas ASYMPTOMATIC COVID-19 ANTIGE Non 02-05-2021 EUA Statement SEE BELOW Normal [facility] Comment on above: Result Comment: This test has not been FDA cleared or approved, but has been authorized by the FDA under an Emergency Use Authorization (EUA) for use by authorized laboratories certified under CLIA that meet the requirements to perform moderate or high complexity testing. This test has been authorized only for the detection of proteins from SARS-CoV-2, not for any other viruses or pathogens. The emergency use of this test is authorized for the duration of the declaration that circumstances exist justifying the authorization of emergency use of in vitro diagnostic tests for detection and/or diagnosis of Covid-19 under section 564(b)(1) of the Act, 21 U.S.C. 360bbb-3(b)(1), unless the declaration is terminated or authorization is revoked sooner. Performed By: #### G TT3P #### [facility] [address] [place] [address] Kaela Dimas SARS-CoV-2 (COVID-19) RNA RIGOBERTO+probe Ql (Unsp spec) Negative Normal NEGATIVE [facility] Comment on above: Result Comment: Nega tive results are presumptive. They do not preclude infection and should not be used as the sole basis for treatment decisions. Additional confirmatory testing by a molecular method should be considered. Performed By: #### G TT3P #### [facility] [address] [place] [address] Kaela Dimas CBC AUTO DIFFon 02-05-2021 BASO # 0.1 103/ul Normal 0.0-0.1 [facility] Comment on above: Performed By: #### C BC #### [facility] [address] [place], [place] [address] Kaela Judie Basophils/100 WBC (Bld) 0.3 % Normal 0.2-2.0 [facility] Comment on above: Performed By: #### C BC #### [facility] [address] [place] [id number] Kaela Judie EO # 0.1 103/ul Normal 0.0-0.7 [facility] Comment on above: Performed By: #### C BC #### [facility] [address] [place] [address] Kaela Judie Eosinophils/100 WBC (Bld) 0.3 % Critically low 0.9-7.0 [facility] Comment on above: Performed By: #### C BC #### [facility] [address] [place], [place] [address] Kaela Judie Erythrocyte distribution width (RBC) [Ratio] 12.0 % Normal 11.0-15.0 [facility] Comment on above: Performed By: #### C BC #### [facility] [address] [place], [place] [address] Kaela Judie Hematocrit (Bld) [Volume fraction] 36.9 % Normal 36.0-48.0 [facility] Comment on above: Performed By: #### C BC #### [facility] [address] [place], [place] [address] Kaela Judie Hemoglobin (Bld) [Mass/Vol] 12.7 g/dL Normal 12.0-16.0 [facility] Comment on above: Performed By: #### C BC #### [facility] [address] [place] [address] Kaela Judie IG # 0.19 10e3/ul Critically high 0.00-0.03 [facility] Comment on above: Performed By: #### C BC #### [facility] [address] [place], [place] [address] Kaela Judie IG % 1.0 % Critically high 0.0-0.5 [facility] Comment on above: Performed By: #### C BC #### [facility] [address] [place] [address] Kaela Judie LYMPH # 1.4 103/ul Normal 1.2-3.8 [facility] Comment on above: Performed By: #### C BC #### [facility] [address] [place] [id number] Kaela Judie Lymphocytes/100 WBC (Bld) 7.6 % Critically low 20.5-60.0 [facility] Comment on above: Performed By: #### C BC #### [facility] [address] [place], [place] [address] Kaela Judie MANUAL DIFF REQ NO Normal [facility] Comment on above: Performed By: #### C BC #### [facility] [address] [place] [address] Kaela Judie MCH (RBC) [Entitic mass] 30.5 pg Normal 26.7-34.0 [facility] Comment on above: Performed By: #### C BC #### [facility] [address] [place], [place] [address] Kaela Judie MCHC (RBC) [Mass/Vol] 34.4 g/dL Normal 29.9-35.2 [facility] Comment on above: Performed By: #### C BC #### [facility] [address] [place], [place] [address] Kaela Judie MCV (RBC) [Entitic vol] 88.5 fL Normal 81.0-99.0 [facility] Comment on above: Performed By: #### C BC #### [facility] [address] [place], [place] [address] Kaela Judie MONO # 1.0 103/ul Critically high 0.3-0.8 [facility] Comment on above: Performed By: #### C BC #### [facility] [address] [place], [place] [address] Kaela Judie Monocytes/100 WBC (Bld) 5.5 % Normal 1.7-12.0 [facility] Comment on above: Performed By: #### C BC #### [facility] [address] [place] [address] Kaela Dimas NEUT # 15.7 103/ul Critically high 1.4-6.5 [facility] Comment on above: Performed By: #### C BC #### [facility] [address] [place], [place] [address] Kaela Dimas Neutrophils/100 WBC (Bld) 85.3 % Critically high 43.0-75.0 [facility] Comment on above: Performed By: #### C BC #### [facility] [address] [place], [place] [address] Kaela Dimas Platelet mean volume (Bld) [Entitic vol] 11.8 fL Normal 9.5-13.5 [facility] Comment on above: Performed By: #### C BC #### [facility] [address] [place] [address] Kaela Sahuen PLT 226 103/ul Normal 150-450 [facility] Comment on above: Performed By: #### C BC #### [facility] [address] [place] [address] Kaela Judie RBC 4.17 106/ul Critically low 4.20-5.40 [facility] Comment on above: Performed By: #### C BC #### [facility] [address] [place], [place] [address] Kaela Dimas WBC 18.5 103/ul Critically high 4.0-11.0 [facility] Comment on above: Performed By: #### C BC #### [facility] [address] [place], [place] [id number] Kaela Dimas DRUG SCREEN RAPID (URINE)on 02-05-2021 AMP Negative Normal NEGATIVE [facility] Comment on above: Performed By: #### D RUGRPD #### [facility] [address] [place], [place] [id number] Kaela Judie BAR Negative Normal NEGATIVE [facility] Comment on above: Performed By: #### D RUGRPD #### [facility] [address] [place], [place] [id number] Kaela Judie BUP Negative Normal NEGATIVE The [facility] Comment on above: Performed By: #### D RUGRPD #### [facility] [address] [place] [address] Kaela Judie BZO Negative Normal NEGATIVE [facility] Comment on above: Performed By: #### D RUGRPD #### [facility] [address] [place] [address] Kaela Judie JERRY Negative Normal NEGATIVE [facility] Comment on above: Performed By: #### D RUGRPD #### [facility] [address] [place] [address] Kaela Judie CUT-OFFS SEE BELOW Normal [facility] Comment on above: Result Comment: AMP (Amphetamine): 500ng/mL, BAR (Barbituates): 200 ng/mL, BZO (Benzodiazepines): 150 ng/mL, BUP (Buprenorphine): 10 ng/mL, JERRY (Cocaine): 150 ng/mL, mAMP (Methamphetamine): 500 ng/mL, MTD (Methadone): 200 ng/mL, OPI (Opiates): 100 ng/mL, OXY (Oxycodone): 100 ng/mL, PCP (Phencyclidine): 25 ng/mL, PPX (Propoxyphene): 300 ng/mL, THC (Cannabinoids): 50 ng/mL, TCA (Trycyclic Antidepressants): 300 ng/mL Performed By: #### D RUGRPD #### [facility] [address] [place] [address] Kaela Judie DRUG CUT HEADER DRUG CLASS TEST SYST EM CUT-OFF CONCENTRATIONS ARE FOLLOWS: Normal [facility] Comment on above: Performed By: #### D RUGRPD #### [facility] [address] [place] [address] Kaeal Judie mAMP Negative Normal NEGATIVE The [facility] Comment on above: Performed By: #### D RUGRPD #### [facility] [address] [place] [address] Kaela Judie MTD Negative Normal NEGATIVE The [facility] Comment on above: Performed By: #### D RUGRPD #### [facility] [address] [place] [address] Kaela Judie OPI Negative Normal NEGATIVE [facility] Comment on above: Performed By: #### D RUGRPD #### [facility] [address] [place] [address] Kaela Judie OXY Negative Normal NEGATIVE The [facility] Comment on above: Performed By: #### D RUGRPD #### [facility] [address] [place] [address] Kaela Judie PCP Negative Normal NEGATIVE [facility] Comment on above: Performed By: #### D RUGRPD #### [facility] [address] [place] [address] Kaela Judie PPX Negative Normal NEGATIVE [facility] Comment on above: Performed By: #### D RUGRPD #### [facility] [address] [place] [address] Kaela Judie TCA Negative Normal NEGATIVE [facility] Comment on above: Performed By: #### D RUGRPD #### [facility] [address] [place] [address] Kaela Judie THC Negative Normal NEGATIVE [facility] Comment on above: Performed By: #### D RUGRPD #### [facility] [address] [place] [address] Kaela Judie TYPE AND SCREENon 02-05-2021 TYPE AND SCREEN Negative Normal [facility] Comment on above: Performed By: #### P TT #### [facility] [address] [place] [address] Kaelastephanie Dimas GROUP B STREP CULTUREon S. agalactiae Ag Ql (Unsp spec) Culture Observations: NEGATIVE FOR GROUP B STREPTOCOCCUS. Normal [facility] Comment on above: Performed By: #### P TT #### [facility] [address] [place] [address] Kaela Judie US PREG BIOPHY W NON STRESSo n 01-30-2021 US PREG BIOPHY W NON STRESS EXAMINATION: US PREG BIOPHY W NON STRESS HISTORY: Pre-existing hypertension complicating , childbirth and puerperium COMPARISON: Ultrasound biophysical 01/22/2021 TECHNIQUE: Ultrasound biophysical profile was performed in the radiology department. non-reactive stress testing was performed by nursing staff in the birthing center. FINDINGS: BREATHING MOVEMENTS: 2.0 GROSS BODY MOVEMENTS: 2.0 TONE: 2.0 QUALITATIVE AMNIOTIC FLUID VOLUME: 2.0 PRESENTATION: CEPHALIC HEART RATE: 136.7 bpm AMNIOTIC FLUID VOLUME: 14.8 cm GESTATIONAL AGE: 36 weeks 2 days IMPRESSION: Total biophysical profile score: 8.0 Electronically authenticated by: MICHELLE LANE Date: 2021-01-30 08:23 Normal [facility] US PREG GROWTHon 01-30-2021 US PREG GROWTH EXAMINATION: US PREG GROWTH HISTORY: Pre-existing hypertension complicating , childbirth and puerperium COMPARISON: Ultrasound gross 12/31/2020 FINDINGS: Heart Rate: 136.7 bpm Number: 1.0 Position: CEPHALIC Amniotic Fluid Volume: 14.8 cm Maximum Vertical Pocket: 4.6 cm BIOMETRY: BPD: 8.5 cm cm; 34 weeks 2 days HC: 31.0 cmcm; 34 weeks 5 days AC: 30.3 cm cm; 34 weeks 2 days FL: 6.5 cm cm; 33 weeks 2 days EFW: 2337.4 grams; 7th percentile FL/AC: 21.3 FL/BPD: 75.7 HC/AC: 1.0 GESTATIONAL AGE: Age by EDC: 36 weeks 2 days SUSANNA by EDC: 02/24/2021 Age by US: 34 weeks, 1 day SUSANNA by US: 03/11/2021 IMPRESSION: 1. Single live intrauterine with growth detailed above. 2. Estimated weight is at 7th percentile. Head circumference and femur length are less than 3rd percentile. Electronically authenticated by: MICHELLE LANE Date: 2021-01-30 08:25 Normal [facility] US PREG BIOPHY W NON STRESSo n 01-23-2021 US PREG BIOPHY W NON STRESS EXAMINATION: US PREG BIOPHY W NON STRESS HISTORY: Pre-existing hypertension complicating , childbirth and puerperium COMPARISON: No relevant comparison available. TECHNIQUE: Ultrasound biophysical profile was performed in the radiology department. non-reactive stress testing was performed by nursing staff in the birthing center. FINDINGS: BREATHING MOVEMENTS: 2.0 GROSS BODY MOVEMENTS: 2.0 TONE: 2.0 QUALITATIVE AMNIOTIC FLUID VOLUME: 2.0 PRESENTATION: CEPHALIC HEART RATE: 142.1 bpm AMNIOTIC FLUID VOLUME: 15.6 cm GESTATIONAL AGE: 35 weeks 2 days IMPRESSION: Total biophysical profile score: 8.0 Electronically authenticated by: MICHELLE LANE Date: 2021-01-23 07:22 Normal [facility] US PREG BIOPHY W NON STRESSo n 01-16-2021 US PREG BIOPHY W NON STRESS EXAMINATION: US PREG BIOPHY W NON STRESS HISTORY: Pre-existing hypertension complicating , childbirth and puerperium COMPARISON: No relevant comparison available. TECHNIQUE: Ultrasound biophysical profile was performed in the radiology department. non-reactive stress testing was performed by nursing staff in the birthing center. FINDINGS: BREATHING MOVEMENTS: 0.0 GROSS BODY MOVEMENTS: 2.0 TONE: 2.0 QUALITATIVE AMNIOTIC FLUID VOLUME: 2.0 PRESENTATION: CEPHALIC HEART RATE: 145.6 bpm AMNIOTIC FLUID VOLUME: 12.1 cm GESTATIONAL AGE: 34 weeks 2 days IMPRESSION: Total biophysical profile score: 6.0 Electronically authenticated by: MICHELLE LANE Date: 2021-01-16 07:31 Normal [facility] PROTEIN 24HR URINEon 021 T PROT, 24 HR UR 603.9 mg/24 hr Critically high 42.0-225.0 [facility] Comment on above: Performed By: #### G TT3P #### [facility] [address] [place] [address] Kaela Judie UR PROT 12.2 mg/dL Critically high <=12.0 [facility] Comment on above: Performed By: #### G TT3P #### [facility] [address] [place] [address] Kaela Judie UR TOT VOL 4950 ml/24 HR Normal [facility] Comment on above: Performed By: #### G TT3P #### [facility] [address] [place] [address] Kaela Judie CBC AUTO DIFFon 01-13-2021 BASO # 0.0 103/ul Normal 0.0-0.1 [facility] Comment on above: Performed By: #### G TT3P #### [facility] [address] [place] [address] Kaela Judie Basophils/100 WBC (Bld) 0.2 % Normal 0.2-2.0 [facility] Comment on above: Performed By: #### G TT3P #### [facility] [address] [place], [place] [address] Kaela Judie EO # 0.1 103/ul Normal 0.0-0.7 [facility] Comment on above: Performed By: #### G TT3P #### [facility] [address] [place] [address] Kaela Judie Eosinophils/100 WBC (Bld) 0.6 % Critically low 0.9-7.0 [facility] Comment on above: Performed By: #### G TT3P #### [facility] [address] [place] [address] Kaela Judie Erythrocyte distribution width (RBC) [Ratio] 11.7 % Normal 11.0-15.0 [facility] Comment on above: Performed By: #### G TT3P #### [facility] [address] [place] [address] Kaela Judie Hematocrit (Bld) [Volume fraction] 34.5 % Critically low 36.0-48.0 [facility] Comment on above: Performed By: #### G TT3P #### [facility] [address] [place] [address] Kaela Judie Hemoglobin (Bld) [Mass/Vol] 12.1 g/dL Normal 12.0-16.0 [facility] Comment on above: Performed By: #### G TT3P #### [facility] [address] [place] [address] Kaela Judie IG # 0.20 10e3/ul Critically high 0.00-0.03 [facility] Comment on above: Performed By: #### G TT3P #### [facility] [address] [place] [address] Kaela Judie IG % 1.2 % Critically high 0.0-0.5 [facility] Comment on above: Performed By: #### G TT3P #### [facility] [address] [place] [address] Kaela Judie LYMPH # 1.5 103/ul Normal 1.2-3.8 [facility] Comment on above: Performed By: #### G TT3P #### [facility] [address] [place], [place] [address] Kaelastephanie Dimas Lymphocytes/100 WBC (Bld) 8.6 % Critically low 20.5-60.0 [facility] Comment on above: Performed By: #### G TT3P #### [facility] [address] [place], [place] [address] Kaela Judie MANUAL DIFF REQ NO Normal [facility] Comment on above: Performed By: #### G TT3P #### [facility] [address] [place], [place] [address] Kaelastephanie Dimas MCH (RBC) [Entitic mass] 30.6 pg Normal 26.7-34.0 [facility] Comment on above: Performed By: #### G TT3P #### [facility] [address] [place] [address] Kaelastephanie Dimas MCHC (RBC) [Mass/Vol] 35.1 g/dL Normal 29.9-35.2 [facility] Comment on above: Performed By: #### G TT3P #### [facility] [address] [place] [address] Kaelastephanie Dimas MCV (RBC) [Entitic vol] 87.3 fL Normal 81.0-99.0 [facility] Comment on above: Performed By: #### G TT3P #### [facility] [address] [place] [address] Kaela Judie MONO # 1.2 103/ul Critically high 0.3-0.8 [facility] Comment on above: Performed By: #### G TT3P #### [facility] [address] [place] [address] Kaela Judie Monocytes/100 WBC (Bld) 6.6 % Normal 1.7-12.0 [facility] Comment on above: Performed By: #### G TT3P #### [facility] [address] [place] [address] Kaela Judie NEUT # 14.4 103/ul Critically high 1.4-6.5 [facility] Comment on above: Performed By: #### G TT3P #### [facility] [address] [id number] Kaela Dimas Neutrophils/100 WBC (Bld) 82.8 % Critically high 43.0-75.0 [facility] Comment on above: Performed By: #### G TT3P #### [facility] [address] [place] [id number] Kaela Dimas Platelet mean volume (Bld) [Entitic vol] 12.1 fL Normal 9.5-13.5 [facility] Comment on above: Performed By: #### G TT3P #### [facility] [address] [place], [place] [address] Kaela Dimas PLT 216 103/ul Normal 150-450 [facility] Comment on above: Performed By: #### G TT3P #### [facility] [address] [place] [address] Kaela Dimas RBC 3.95 106/ul Critically low 4.20-5.40 [facility] Comment on above: Performed By: #### G TT3P #### [facility] [address] [place] [address] Kaela Dimas WBC 17.4 103/ul Critically high 4.0-11.0 [facility] Comment on above: Performed By: #### G TT3P #### [facility] [address] [place], [place] [address] Kaela Dimas CULTURE URINEon 01-13-2021 CULTURE URINE Culture Observations : LIGHT GROWTH OF MIXED GENITAL TINO. NO POTENTIAL PATHOGENS SEEN. Normal [facility] Comment on above: Performed By: #### P TT #### [facility] [address] [place], [place] [address] Kaela Diams LDHon 01-13-2021 LDH 194 U/L Normal 122-222 [facility] Comment on above: Performed By: #### U ELIZABETH, LDH #### [facility] [address] [place], [place] [address] Kaela Dimas PROF 14(COMP METB)on 021 Albumin [Mass/Vol] 2.7 g/dL Critically low 3.5-5.0 [facility] Comment on above: Performed By: #### G TT3P #### [facility] [address] [id number] Kaela Judie Albumin/Globulin [Mass ratio] 0.9 {ratio} Normal [facility] Comment on above: Performed By: #### G TT3P #### [facility] [address] [address] Kaela Judie ALP [Catalytic activity/Vol] 134 U/L Critically high 38-126 [facility] Comment on above: Performed By: #### G TT3P #### [facility] [address] [place] [address] Kaela Judie ALT [Catalytic activity/Vol] 21 U/L Normal 9-52 [facility] Comment on above: Performed By: #### G TT3P #### [facility] [address] [place] [address] Kaela Judie Anion gap [Moles/Vol] 11.6 mmol/L Normal [facility] Comment on above: Performed By: #### G TT3P #### [facility] [address] [place] [address] Kaela Judie AST [Catalytic activity/Vol] 17 U/L Normal 14-36 [facility] Comment on above: Performed By: #### G TT3P #### [facility] [address] [place] [address] Kaela Judie Bilirubin [Mass/Vol] 0.2 mg/dL Normal 0.2-1.3 [facility] Comment on above: Performed By: #### G TT3P #### [facility] [address] [place] [address] Kaela Judie Calcium [Mass/Vol] 9.1 mg/dL Normal 8.4-10.2 [facility] Comment on above: Performed By: #### G TT3P #### [facility] [address] [place] [address] Kaela Judie Chloride [Moles/Vol] 106 mmol/L Normal 98-107 [facility] Comment on above: Performed By: #### G TT3P #### [facility] [address] [place] [address] Kaela Judie CO2 [Moles/Vol] 25.8 mmol/L Normal 22.0-30.0 [facility] Comment on above: Performed By: #### G TT3P #### [facility] [address] [place] [address] Kaela Judie Creatinine [Mass/Vol] 0.53 mg/dL Normal 0.52-1.04 [facility] Comment on above: Performed By: #### G TT3P #### [facility] [address] [place] [address] Kaela Judie EGFR-AF ITALIAN >60 Normal >=60 [facility] Comment on above: Performed By: #### G TT3P #### [facility] [address] [place] [address] Kaela Judie EGFR-NON AF ITALIAN >60 Normal >=60 [facility] Comment on above: Performed By: #### G TT3P #### [facility] [address] [place] [address] Kaela Judie Globulin (S) [Mass/Vol] 3.0 g/dL Normal [facility] Comment on above: Performed By: #### G TT3P #### [facility] [address] [place] [address] Kaela Judie Glucose [Mass/Vol] 85 mg/dL Normal 74-106 [facility] Comment on above: Performed By: #### G TT3P #### [facility] [address] [place] [address] Kaela Judie Potassium [Moles/Vol] 3.4 mmol/L Normal 3.4-5.0 [facility] Comment on above: Performed By: #### G TT3P #### [facility] [address] [place] [address] Kaela Judie Protein [Mass/Vol] 5.7 g/dL Critically low 6.1-8.2 Th e [facility] Comment on above: Performed By: #### G TT3P #### [facility] [address] [place] [address] Kaela Judie Sodium [Moles/Vol] 140 mmol/L Normal 137-145 [facility] Comment on above: Performed By: #### G TT3P #### [facility] [address] [place] [address] Kaela Judie Urea nitrogen [Mass/Vol] 10.0 mg/dL Normal 7.0-17.0 [facility] Comment on above: Performed By: #### G TT3P #### [facility] [address] [place] [address] Kaela Judie Urea nitrogen/Creatinine [Mass ratio] 18.9 mg/mg Normal [facility] Comment on above: Performed By: #### G TT3P #### [facility] [address] [place] [address] Kaela Judie PTTon 01-13-2021 aPTT Coag (Bld) [Time] 23.6 s Normal 22.3-36.2 Th [facility] Comment on above: Performed By: #### P TT #### [facility] [address] [place] [address] Kaela Judie URIC ACID SERUMon 01-13-2021 Urate [Mass/Vol] 3.7 mg/dL Normal 2.5-6.2 [facility] Comment on above: Performed By: #### U ELIZABETH, LDH #### [facility] [address] [place] [address] Kaela Judie UA (CLEAN/CATCH) 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 YELLOW Normal YELLOW [facility] Comment on above: Performed By: #### U MICRO, UACSIND #### [facility] [address] [place] [address] Kaela Judie Glucose Ql (U) Negative Normal NEGATIVE The [facility] Comment on above: Performed By: #### U MICRO, UACSIND #### [facility] [address] [place] [address] Kaela Judie Hemoglobin Ql (U) Negative Normal NEGATIVE [facility] Comment on above: Performed By: #### U MICRO, UACSIND #### [facility] [address] [place] [address] Kaela Judie Ketones Ql (U) Negative Normal NEGATIVE The [facility] Comment on above: Performed By: #### U MICRO, UACSIND #### [facility] [address] [place] [address] Kaela Judie LEUKOCYTES TRACE Abnormal NEGATIVE [facility] Comment on above: Performed By: #### U MICRO, UACSIND #### [facility] [address] [place] [address] Kaela Judie Nitrite Ql (U) Negative Normal NEGATIVE [facility] Comment on above: Performed By: #### U MICRO, UACSIND #### [facility] [address] [place] [address] Kaela Judie pH (U) 6.0 [pH] Normal 5-9 [facility] Comment on above: Performed By: #### U MICRO, UACSIND #### [facility] [address] [place] [address] Kaela Judie SPEC GRAVITY 1.025 Normal 1.005-<=1.0 25 [facility] Comment on above: Performed By: #### U MICRO, UACSIND #### [facility] [address] [place] [address] Kaela Judie UA PROTEIN Negative Normal NEGATIVE/ TRACE The [facility] Comment on above: Performed By: #### U MICRO, UACSIND #### [facility] [address] [place] [address] Kaela Judie UR MICRO IND INDICATED Normal [facility] Comment on above: Performed By: #### U MICRO, UACSIND #### [facility] [address] [place] [address] Kaela Judie Urobilinogen Qn (U) 0.2 {Sylvester'U}/dL Normal 0.2 - 1. 0 The [facility] Comment on above: Performed By: #### U MICRO, UACSIND #### [facility] [address] [place] [address] Kaela Judie URINE MICROSCOPIC ONLYon BACTERIA TRACE Abnormal NONE SEEN The [facility] Comment on above: Performed By: #### U MICRO, UACSIND #### [facility] [address] [place] [address] Kaela Judie Bacteria identified Cx Nom (U) INDICATED Normal [facility] Comment on above: Performed By: #### U MICRO, UACSIND #### [facility] [address] [place] [address] Kaela Judie CAST NONE SEEN Normal NONE SEEN The [facility] Comment on above: Performed By: #### U MICRO, UACSIND #### [facility] [address] [place] [address] Kaela Judie Crystals LM Nom (Urine sed) NONE SEEN Normal NONE SEEN [facility] Comment on above: Performed By: #### U MICRO, UACSIND #### [facility] [address] [place] [address] Kaela Judie Epithelial cells LM Ql (Urine sed) FEW Abnormal NONE SEEN /RARE [facility] Comment on above: Performed By: #### U MICRO, UACSIND #### [facility] [address] [place] [address] Kaela Judie MUCOUS SMALL Abnormal NONE SEEN The [facility] Comment on above: Performed By: #### U MICRO, UACSIND #### [facility] [address] [place] [address] Kaela Judie RBC 0-2 Normal 0-2 The [facility] Comment on above: Performed By: #### U MICRO, UACSIND #### [facility] [address] [place] [address] Kaela Judie WBC 2-5 Abnormal NONE SEEN The [facility] Comment on above: Performed By: #### U MICRO, UACSIND #### [facility] [address] [place], [place] [id number] Kaela Dimas US PREG BIOPHY W NON STRESSo n 01-09-2021 US PREG BIOPHY W NON STRESS EXAMINATION: US PREG BIOPHY W NON STRESS HISTORY: Pre-existing hypertension complicating , childbirth and puerperium COMPARISON: No relevant comparison available. TECHNIQUE: Ultrasound biophysical profile was performed in the radiology department. non-reactive stress testing was performed by nursing staff in the birthing center. FINDINGS: BREATHING MOVEMENTS: 2.0 GROSS BODY MOVEMENTS: 2.0 TONE: 2.0 QUALITATIVE AMNIOTIC FLUID VOLUME: 2.0 PRESENTATION: CEPHALIC HEART RATE: 141.0 bpm H.B./min AMNIOTIC FLUID VOLUME: 17.9 cm cm GESTATIONAL AGE: 33 weeks 2 days CONCLUSION: Total biophysical profile score: 8.0 Electronically authenticated by: IRINEO COMBS Date: 2021-01-09 07:18 Normal The [facility] US PREG GROWTHon 12-31-2020 US PREG GROWTH EXAMINATION: US PREG GROWTH HISTORY: Pre-existing hypertension complicating , childbirth and puerperium COMPARISON: No relevant comparison available. FINDINGS: Heart Rate: 131 Amniotic Fluid Volume: 11.2 cm Number: 1.0 Position: Cephalic presentation, longitudinal lie Maximum Vertical Pocket: 3.0 cm cm 2.1 cm cm 3.5 cm cm 2.8 cm cm BIOMETRY: BPD: 8.1 cm cm; 32 weeks 2 days; HC: 28.7 cmcm; 31 weeks 4 days AC: 27.8 cm cm; 31 weeks 5 days FL: 6.3 cm cm; 32 weeks 2 days; % EFW: 4.407340, 39% FL/AC: 0.373396 FL/BPD: 0.781959 HC/AC: 1.101701 GESTATIONAL AGE: Age by EDC: 32 weeks 1 day SUSANNA by EDC: 02/24/2021 Age by US: 32 weeks 0 days SUSANNA by US: 02/25/2021 IMPRESSION: Normal interval growth Electronically authenticated by: IRINEO COMBS Date: 2020-12-31 09:38 Normal [facility] GTT 3 HR PREGon 12-12-2020 Glucose [Mass/Vol] 86 mg/dL Normal 74-106 [facility] Comment on above: Performed By: #### G TT3P #### [facility] [address] [id number] Kaela Judie Glucose [Mass/Vol] 179 mg/dL Normal [facility] Comment on above: Performed By: #### G TT3P #### [facility] [address] [id number] Kaela Judie Glucose [Mass/Vol] 131 mg/dL Normal [facility] Comment on above: Performed By: #### G TT3P #### [facility] [address] [address] Kaela Judie Glucose [Mass/Vol] 145 mg/dL Normal [facility] Comment on above: Performed By: #### G TT3P #### [facility] [address] [place] [address] Kaela Judie GLUCOSE - 1HRon 12-05-2020 Glucose [Mass/Vol] 151 mg/dL Critically high 74-106 T he [facility] Comment on above: Result Comment: sherri ent was approximately 5 minutes late for draw Performed By: #### G LU1HR #### [facility] [address] [place] [address] Kaela Judie HEMOGRAM AND PLATELon 2020 Hematocrit (Bld) [Volume fraction] 38.4 % Normal 36.0-48.0 [facility] Comment on above: Performed By: #### G TT3P #### [facility] [address] [place], [place] [id number] Kaela Judie Hemoglobin (Bld) [Mass/Vol] 13.2 g/dL Normal 12.0-16.0 [facility] Comment on above: Performed By: #### G TT3P #### [facility] [address] [place], [place] [id number] Kaela Judie MCH (RBC) [Entitic mass] 30.8 pg Normal 26.7-34.0 [facility] Comment on above: Performed By: #### G TT3P #### [facility] [address] [place], [place] [address] Kaela Judie MCHC (RBC) [Mass/Vol] 34.4 g/dL Normal 29.9-35.2 [facility] Comment on above: Performed By: #### G TT3P #### [facility] [address] [place], [place] [address] Kaela Dimas MCV (RBC) [Entitic vol] 89.5 fL Normal 81.0-99.0 [facility] Comment on above: Performed By: #### G TT3P #### [facility] [address] [place], [place] [address] Kaela Dimas PLT 238 103/ul Normal 150-450 The [facility] Comment on above: Performed By: #### G TT3P #### [facility] [address] [place], [place] [address] Kaela Dimas RBC 4.29 106/ul Normal 4.20-5.40 The [facility] Comment on above: Performed By: #### G TT3P #### [facility] [address] [place], [place] [address] Kaela Dimas WBC 17.0 103/ul Critically high 4.0-11.0 [facility] Comment on above: Performed By: #### G TT3P #### [facility] [address] [place], [place] [address] Kaela Dimas US PREG GROWTHon 12-03-2020 US PREG GROWTH EXAMINATION: US PREG GROWTH HISTORY: Pre-existing hypertension complicating , childbirth and puerperium COMPARISON: No relevant comparison available. FINDINGS: Heart Rate: 140 Amniotic Fluid Volume: 19.1 cm Number: 1.0 Position: Cephalic presentation, longitudinal lie Maximum Vertical Pocket: 7.1 cm cm 3.5 cm cm 3.3 cm cm 5.2 cm cm BIOMETRY: BPD: 7.3 cm cm; 29 weeks 2 days; HC: 26.0 cmcm; 28 weeks 1 days AC: 23.9 cm cm; 28 weeks 1 days FL: 5.3 cm cm; 28 weeks 0 days; % EFW: 2.507278, 2 lbs. 10 oz., 40% FL/AC: 0.964876 FL/BPD: 0.548794 HC/AC: 1.540463 GESTATIONAL AGE: Age by EDC: 28 weeks 1 day SUSANNA by EDC: 02/24/2021 Age by US: 20 weeks 2 days SUSANNA by US: 02/23/2021 IMPRESSION: Normal interval growth Electronically authenticated by: IRINEO COMBS Date: 2020-12-03 10:04 Normal [facility] Vital Signs Date Time Vital Sign Value Performing Clinician Zen desouza 01-31-2024 18:14-0400 Diastolic blood pressure 74 mm[Hg] MD Jacques Mccarthy Work Phone: [facility] 01-31-2024 18:14-0400 Heart rate 100 /min MD Jacques Mccarthy Work Phone: [facility] 01-31-2024 18:14-0400 Respiratory rate 18 /min MD Jacques Mccarthy Work Phone: [facility] 01-31-2024 18:14-0400 SaO2% (BldA) [Mass fraction] 100 % MD Jacques Mccarthy Work Phone: [facility] 01-31-2024 18:14-0400 Systolic blood pressure 156 mm[Hg] MD Jacques Mccarthy Work Phone: [facility] 01-31-2024 14:04-0400 Body height 160.02 cm MD Jacques Mccarthy Work Phone: [facility] 01-31-2024 14:04-0400 Body temperature 97.4 [degF] MD Jacques Mccarthy Work Phone: [facility] 01-31-2024 14:04-0400 Body weight 98.5 kg MD Jacques Mccarthy Work Phone: [facility] Encounters Encounter Date Encounter Type Care Provider Facility Start: 04-20-2024 End: 04-20-2024 ambulatory CARYL JIMENEZ Not Available Start: 03-22-2024 End: 03-22-2024 ambulatory SCOTTY LAURIE Not Available Start: 02-24-2024 End: 02-24-2024 ambulatory SCOTTY LAURIE Not Available Start: 02-22-2024 End: 02-22-2024 ambulatory CARYL JIMENEZ Not Available Start: 02-11-2024 End: 02-11-2024 ambulatory SCOTTY LAURIE Not Available Start: 02-08-2024 End: 02-08-2024 ambulatory SCOTTY SULLIVAN Not Available Start: 01-31-2024 End: 01-31-2024 Emergency department patient visit MD Jacques Mccarthy Work Phone: [facility] Work Phone: Start: 10-08-2021 End: 10-08-[address] SCOTTY SULLIVAN Facility:[facility] Start: 02-19-[address] SCOTTY SULLIVAN Facility :[facility] Start: 02-11-2021 End: 02-11-[address] SCOTTY SULLIVAN Facility:[facility] Start: 02-06-2021 Evaluation and management of inpatient DR SCOTTY SULLIVAN Facility:[facility] Start: 02-05-2021 End: 02-09-2021 Evaluation and management of inpatient DR SCOTTY SULLIVAN Facility:[facility] Start: 01-30-2021 End: 01-30-[address] SCOTTY SULLIVAN Facility:[facility] Start: 01-29-2021 End: 01-29-[address] SCOTTY SULLIVAN Facility:[facility] Start: 01-22-2021 End: 01-22-[address] SCOTTY SULLIVAN Facility:[facility] Start: 01-15-2021 End: 01-15-[address] SCOTTY SULLIVAN Facility:[facility] Start: 01-14-2021 End: 01-14-[address] SCOTTY SULLIVAN Facility:[facility] Start: 01-13-2021 End: 01-13-[address] SCOTTY SULLIVAN Facility:[facility] Start: 01-08-2021 End: 01-08-[address] JACQUES MCCARTHY Facility:[facility] Start: 12-31-2020 End: 01-01-[address] IRINEO COMBS Facility:[facility] Start: 12-19-2020 End: 12-20-[address] JACQUES MCCARTHY Facility:[facility] Start: 12-12-2020 End: 12-13-[address] SCOTTY SULLIVAN Facility:[facility] Start: 12-05-2020 End: 12-06-[address] SCOTTY SULLIVAN Facility:[facility] Start: 12-03-2020 End: 12-04-[address] SCOTTY SULLIVAN Facility:[facility] Start: 11-01-[address] SCOTTY SULLIVAN Facility :[facility] Procedures Date Procedure Procedure Detail Performing Clinician Start: 02-06-2021 Extraction of Produc ts of Conception, Low Cervical, Open Approach DR SCOTTY SULLIVAN Start: 02-05-2021 Introduction of Othe r Hormone into Peripheral Vein, Percutaneous Approach DR SCOTTY SULLIVAN Plan of Treatment Date Care Activity Detail Author Patient Education - Th e Second Month High Blood Pressure ED [facility] Work Phone: Patient referral [facility] Work Phone: Payers Date Payer Category Payer Private Health Insurance [id number] [id number] Self-pay 1997 Unknown [id number] 2.16.84 0.1.017378.3.579.2.593 1997 Unknown [id number] 2.16.84 0.1.645645.3.579.2.593 1997 Unknown [id number] 2.16.84 0.1.036266.3.579.2.593 1997 Unknown [id number] 2.16.84 0.1.785018.3.579.2.593 1997 Unknown [id number] 2.16.84 0.1.047664.3.579.2.593 1997 Unknown [id number] 2.16.84 0.1.825668.3.579.2.593 1997 Unknown [id number] 2.16.84 0.1.511818.3.579.2.593 1997 Unknown [id number] 2.16.84 0.1.681700.3.579.2.593 1997 Unknown [id number] 2.16.84 0.1.585896.3.579.2.593 1997 Unknown [id number] 2.16.84 0.1.597813.3.579.2.593 1997 Unknown [id number] 2.16.84 0.1.803413.3.579.2.593 1997 Unknown [id number] 2.16.84 0.1.006850.3.579.2.593 1997 Unknown [id number] 2.16.84 0.1.085570.3.579.2.593 1997 Unknown [id number] 2.16.84 0.1.813250.3.579.2.593 1997 Unknown [id number] 2.16.84 0.1.053822.3.579.2.593 1997 Unknown [id number] 2.16.84 0.1.927347.3.579.2.593 1997 Unknown [id number] 2.16.84 0.1.422652.3.579.2.593 1997 Unknown [id number] 2.16.84 0.1.604933.3.579.2.593 1997 Unknown [id number] 2.16.84 0.1.189652.3.579.2.9 1997 Unknown [id number] 2.16.84 0.1.931513.3.579.2.9 1997 Unknown [id number] 2.16.84 0.1.082743.3.579.2.9 1997 Unknown [id number] 2.16.84 0.1.031995.3.579.2.1259 1997 Unknown [id number] 2.16.84 0.1.103678.3.579.2.9 1997 Unknown [id number] 2.16.84 0.1.929985.3.579.2.1259 1959 Unknown [id number] 1959 Unknown [id number] 1959 Unknown [id number] Unknown [id number] 2.16.8 40.1.425904.3.579.2.531 Social History Date Type Detail Facility [facility] Start: 01-31-2024 Tobacco smoking stat us NHIS Never smoked tobacco (finding) [facility] Start: 1995 Sex Assigned At Female F [facility] Clinical Note 02-05-2021 Note Date & Type Note Facility 02-05-2021 Note OPERATIVE NOTE OPERATION DATE: 02-06-21 ANESTHETIC:Spinal with Duramorph. CLINICAL HAEMATOLOGIST:ELVIA Prajapati PREOPERATIVE DIAGNOSIS: 1. Intrauterine at 37 weeks and 3/7 days. 2. Chronic hypertension. 3. Gestational diabetes mellitus, diet controlled. POSTOPERATIVE DIAGNOSIS:Same as above. PROCEDURE NAME:Primary low transverse Caesarean section. URINE OUTPUT: Yellow and clear. BLOOD LOSS:575 mL. FINDINGS: Viable , Apgars and weight unknown at this time. SPECIMEN:Placenta. PROCEDURE: Patient was taken back to the Operating Room where she was given a spinal anesthesia with Duramorph without difficulty. She was prepped and draped in the normal sterile fashion. A Pfannenstiel skin incision was then made 2 cm above the symphysis pubis and carried down to underlying rectus fascia using a Bovie. The fascia was incised in the midline and extended laterally using Webb scissors. Two Chidi clamps were placed on the superior aspect of the fascia and dissected off the underlying rectus muscles. The same was performed on the inferior aspect as well. The muscles were then in the midline. Peritoneum was identified and entered bluntly. The peritoneum was then extended superiorly and inferiorly with good visualization of the bladder. The bladder blade was inserted. Vesicouterine peritoneum was identified, tented up, and entered with Metzenbaum scissors. A bladder flap was then created digitally. The bladder blade was reinserted. A low transverse incision was made on the patient's uterus and extended laterally digitally. The infant was then delivered atraumatically after the bladder blade was removed in the cephalic position. The cord was clamped and cut. Cord blood was obtained. The was handed off to awaiting team. The patient's placenta was spontaneously delivered. The uterus was then exteriorized. The uterus was cleared of all clots and debris. The bladder blade was reinserted. The patient's uterine incision was closed using #0 Vicryl in a running lock fashion. Excellent hemostasis was assured. The uterus was then returned to the patient's abdomen. The patient's abdomen was copiously irrigated using warm saline. Peritoneal gutters were cleared of all clots and debris. Again excellent hemostasis was assured. The patient's peritoneum was closed using 3-0 Vicryl in a running fashion. The patient's fascia was closed using #0 Vicryl in a running fashion. The patient's skin was closed using 4-0 Vicryl subcuticularly. The patient tolerated the procedure well. Sponge, lap, and needle counts were correct x2. The patient was taken to the Recovery Room in stable condition. [facility] Signed and Approved by: DR SCOTTY SULLIVAN . 02/11/2021 11:15:00 [facility] Discharge summary note 02-05-2021 Note Date & Type Note Facility 02-05-2021 Note DISCHARGE SUMMARY Discharge Date: 02-09-21 PRIMARY DIAGNOSIS: 1. Intrauterine at 37 and 3/7 weeks. 2. Chronic hypertension. 3. Gestational diabetes mellitus, diet controlled. PROCEDURE: Primary low transverse Caesarean section. CONSULTATION: Anesthesia. HOSPITAL COURSE: Was as expected, please see chart for full details. LABS: Please see chart. DISCHARGE CONDITION: Stable. DISCHARGE PLAN: ACTIVITY: Pelvic rest for 6 weeks. No heavy lifting for 6 weeks greater than [address] when pain free and no longer on narcotics. DIET: Regular. MEDICATIONS: Percocet, 5/325, 1-2 p.o. q4-5h p.r.n. pain. Motrin, 800, 1 p.o. q8h p.r.n. pain. FOLLOW-UP: In 1 week. The patient was instructed to return to the hospital with any vaginal bleeding greater than a period. Any fever unrelieved by Tylenol, any abdominal pain unrelieved with narcotics. [facility] Signed and Approved by: DR SCOTTY SULLIVAN . 02/25/2021 23:13:00 [facility] Evaluation note Note Date & Type Note Facility Evaluation note No assessment information availa [facility] Work Phone: Summary Purpose Family History No Family History Records FoundNo Family History Records FoundNo Family History Records Found Advance Directives No Advanced Directives Records Found Advance Directive Response Recorded Date/ Time Advance Directives No January 30 3:45pm Chief Complaint and Reason for Visit Chief Complaint 6 wks high blood pressure Additional Source Comments INFORMATION SOURCE (unrecogn ized section and content) DATE CREATED AUTHOR 10/15/2021 [facility] DATE CREATED AUTHOR AUTHOR'S ORGANIZ ATION 02/19/2024 [facility] DATE CREATED AUTHOR AUTHOR'S ORGANIZ ATION 04/22/2024 [facility] EPIC Care Teams (unrecognized sec tion and content) Team Status: Active Member Role Status Dates Jacques Mccarthy MD Primary Care Provider Active Team Status: Inactive Member Role Status Dates Jacques Mccarthy MD Primary Care Provider Active Start: January 31, 2024 End: January 31, 2024 Terry Dudley DO Emergency Provider Active St art: January 31, 2024 End: January 31, 2024 Goals (unrecognized section and content) Goals may be documented in a n alternate section FOR RECORDS PERTAINING TO PATIENTS WHO ARE OR HAVE BEEN ENROLLED IN A CHEMICAL DEPENDENCY/SUBSTANCEABUSE PROGRAM, SOME INFORMATION MAY BE OMITTED. This clinical summary was aggregated from multiple sources. Caution should be exercised in using it in the provision of clinical care. This summary normalizes information from multiple sources, and as a consequence, information in this document may materially change the coding, format and clinical context of patient data. In addition, data may be omitted in some cases. CLINICAL DECISIONS SHOULD BE BASED ON THE PRIMARY CLINICAL RECORDS. [facility]. provides no warranty or guarantee of the accuracy or completeness of information in this document.
== END 2024-05-18 10:36 | disposition home or self-care (01) ==
LOC: NOMS 10:36
PROVIDERS: PCP Family Medicine; Visit Provider Obstetrics & Gynecology
DX: Z36.89 Encounter for other specified antenatal screening (principal); Z3A.20 20 weeks gestation of pregnancy
CPT/HCPCS: 76805; 76817

== ENCOUNTER 2024-06-15 14:39 | Outpatient (OUT) | payer OTHER, SELFPAY ==
--- NOTE | 2024-06-15 14:40 | US_ITS ---
[address] [address] Patient Name: RADAMES BENJAMIN MRN: [id number] date: 1995 Sex: F Assigned Patient Location: [facility] Current Patient Location: [facility] Accession/Order Number: [id number] Exam Date: 06/15/2024 14:41 Report Date: 06/17/2024 06:19 At the request of: SCOTTY SULLIVAN Procedure: US OB incomplete anatomy EXAM: US OB incomplete anatomy HISTORY: INCOMPLETE ANATOMY COMPARISON: Ultrasound OB anatomy 05/18/2024 TECHNIQUE: Transabdominal ultrasound FINDINGS: Presentation: Cephalic Heart rate: 154 bpm Anatomy: Spine, three-vessel cord, cord insertion visualized without appreciable abnormality. Suboptimally anatomy: Cardiac outflow tracts could not be adequately evaluated on today's study. GA: 24 weeks 0 days SUSANNA: 10/05/2024 US/US OB incomplete anatomy IMPRESSION: 1. Suboptimal visualization of the cardiac outflow tracts. 2. Adequate visualization of the spine, three-vessel cord, cord insertion; no appreciable abnormality. Electronically authenticated by: MICHELLE LANE Date: 06/17/2024 06:19
== END 2024-06-15 14:40 | disposition home or self-care (01) ==
LOC: NOMS 14:39
PROVIDERS: PCP Family Medicine; Visit Provider Obstetrics & Gynecology
DX: Z36.2 Encounter for other antenatal screening follow-up (principal); Z3A.24 24 weeks gestation of pregnancy
CPT/HCPCS: 76815

== ENCOUNTER 2024-07-13 15:06 | Outpatient (OUT) | payer MEDICAID, SELFPAY ==
--- OUTSIDE RECORDS SUMMARY | 2024-07-13 15:22 | XMS_ITS | CCD ---
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 Name Role Phone JACQUIE, DR FAJARDO Consulting Unavailable JACQUIE, DR FAJARDO Primary Care Unavailable JACQUIE, DR FAJARDO Attending Unavailable JACQUIE, DR FAJARDO Admitting Unavailable JACQUIE, DR FAJARDO Consulting Unavailable LUIS MIGUEL, PENELOPE Admitting Unavailable LUIS MIGUEL, PENELOPE Attending Unavailable MIGUEL ÁNGEL, DR HANNA Primary Care Unavailable DOMINGO, DR MICHELLE Matthews Consulting Unavailable PENELOPE BOLANOS Consulting Unavailable JACQUIE, DR FAJARDO Consulting Unavailable JACQUIE, DR FAJARDO Attending Unavailable MIGUEL ÁNGEL, DR HANNA Primary Care Unavailable JACQUIE, DR FAJARDO Admitting Unavailable JACQUIE, DR FAJARDO Attending Unavailable KARALIZAK, DR HILL Consulting Unavailable MIGUEL ÁNGEL, DR HANNA Primary Care Unavailable JACQUIE, DR FAJARDO Admitting Unavailable JACQUIE, DR FAJARDO Procedure Practitioner Unavailab le JACQUIE, DR FAJARDO Consulting Unavailable PILY VANG Consulting Unavailab LEXIE Bender Consulting Unavailable JACQUIE, DR FAJARDO Admitting Unavailable MIGUEL ÁNGEL, DR HANNA Primary Care Unavailable JACQUIE, DR FAJARDO Attending Unavailable JACQUIE, DR FAJARDO Consulting Unavailable JACQUIE, DR FAJARDO Attending Unavailable MIGUEL ÁNGEL, DR HANNA Primary Care Unavailable JACQUIE, DR FAJARDO Admitting Unavailable JACQUIE, DR FAJARDO Consulting Unavailable JACQUIE, DR FAJARDO Admitting Unavailable JACQUIE, DR FAJARDO Attending Unavailable MIGUEL ÁNGEL, DR HANNA Primary Care Unavailable ASHLEY, DR IRINEO Pompa Consulting Unavailable JACQUIE, DR FAJARDO Attending Unavailable JACQUIE, DR FAJARDO Admitting Unavailable MIGUEL ÁNGEL, DR HANNA Primary Care Unavailable JACQUIE, DR FAJARDO Consulting Unavailable JACQUIE, DR FAJARDO Attending Unavailable JACQUIE, DR FAJARDO Consulting Unavailable MIGUEL ÁNGEL, DR HANNA Primary Care Unavailable JACQUIE, DR FAJARDO Admitting Unavailable JACQUIE, DR FAJARDO Consulting Unavailable PENELOPE BOLANOS Admitting Unavailable MIGUEL ÁNGEL, DR HANNA Primary Care Unavailable PENELOPE BOLANOS Attending Unavailable DOMINGO, DR MICHELLE Matthews Consulting Unavailable PENELOPE BOLANOS Consulting Unavailable MIGUEL ÁNGEL, DR HANNA Primary Care Unavailable GARRET, DR IRINEO Pompa Consulting Unavailable JACQUIE, DR FAJARDO Attending Unavailable JACQUIE, DR FAJARDO Admitting Unavailable JACQUIE, DR FAJARDO Consulting Unavailable JACQUIE, DR FAJARDO Consulting Unavailable LUIS MIGUEL, PENELOPE Admitting Unavailable PENELOPE BOLANOS Attending Unavailable MIGUEL ÁNGEL, DR HANNA Primary Care Unavailable ZIEBER, DR MICHELLE Matthews Consulting Unavailable JACQUIE, DR FAJARDO Attending Unavailable JACQUIE, DR FAJARDO Admitting Unavailable DAIANAY, DR HANNA [facility] Care Unavailable DAIANAY, DR HANNA [facility] Care Unavailable JACQUIE, DR FAJARDO Attending Unavailable JACQUIE, DR FAJARDO Admitting Unavailable JACQUIE, DR FAJARDO Attending Unavailable JACQUIE, DR FAJARDO Admitting Unavailable DAIANAY, DR HANNA [facility] Care Unavailable JACQUIE, DR FAJARDO Consulting Unavailable JACQUIE, DR FAJARDO Attending Unavailable HOY, DR HANNA [facility] Care Unavailable JACQUIE, DR FAJARDO Admitting Unavailable JACQUIE, DR FAJARDO Admitting Unavailable GARRET, DR IRINEO [place] Consulting Unavailable MIGUEL ÁNGEL, DR HANNA [facility] Unavailable JACQUIE, DR FAJARDO Attending Unavailable JACQUIE, DR FAJARDO Consulting Unavailable JACQUIE, DR FAJARDO Attending Unavailable MIGUEL ÁNGEL, DR HANNA [facility] Unavailable JACQUIE, DR FAJARDO Admitting Unavailable MD Jacques Mccarthy Primary Care Provider [phone] DO Terry Dudley Emergency Provider Terry Dudley Admitting Unavailable Terry Dudley Attending Unavailable Jacques Mccarthy Primary Care Unavailable Jacques Mccarthy MD Primary Care Provider [phone] SCOTTY DHILLON Attending Unavailable MADISYN GAONA Attending Unavailable SCOTTY DHILLON Attending Unavailable MADISYN GAONA Attending Unavailable SCOTTY DHILLON Attending Unavailable MADISYN GAONA Attending Unavailable Jacques Mccarthy MD Primary Care Provider [phone] Medications Current Medications Medication Drug Class(es) Dates Sig (Normalized) Sig (Original) citalopram 20 mg oral tablet (8 sources) Serotonin Reuptake Inhibitor Start: 04-04-2024 End: 03-14-2028 take 1 tablet by mouth in the morning citalopram (CeleXA) 20 MG tablet Indications: Anxiety, generalized (CMS/HCC) Take 1 tablet (20 mg) by mouth in the morning. 360 tablet 3 04/04/2024 03/14/2028 Active Start: 01-31-2024 take 1 tablet by yasmeen th once daily Citalopram (Celexa) 20 mg tablet Active 20 MG PO Daily January 31, 2024 12:00am take 2 tablets by mo uth in the morning citalopram (CeleXA) 10 mg tablet Take 2 tablets (20 mg total) by mouth in the morning. Active miscellaneous medical supply misc (1 source) miscellaneous me dical supply misc by miscellaneous route once. Active omeprazole 20 mg delayed release oral capsule (3 sources) Proton Pump Inhibitor Start: 06-15-20 End: 06-15-20 25 take 1 capsule by mouth once before mealtime omeprazole (PriLOSEC) [address] capsule Indications: Heartburn during in second trimester Take 1 capsule (20 mg) by mouth in the morning. Take before meals. Do not crush or chew.. 30 capsule 06/15/2024 06/15/2025 Active take 1 capsule by mouth in the m orning omeprazole (PriLOSEC) 20 mg capsule Take 1 capsule (20 mg total) by mouth in the morning. Active ondansetron 4 mg oral tablet (1 source) Serotonin-3 Receptor Antagonist take 1 tablet by mouth every eight hours as needed for nausea and vomiting ondansetron (ZOFRAN) 4 mg tablet Take 4 mg by mouth every 8 (eight) hours as needed for nausea or vomiting. Active vits62/FA/om3/dha/epa ( GUMMY ORAL) (1 source) vits62/FA/om3/dha/epa ( GUMMY ORAL) Take by mouth. Active Completed/Discontinued Medications Medication Drug Class(es) Dates Sig (Normalized) Sig (Original) labetalol hydrochloride 200 mg oral tablet (10 sources) beta-Adrenergic All Start: 05-01-2024 End: 09-13-2024 take 1 tablet by mouth in the morning, then take 1 tablet by mouth in the evening, then take 1 tablet by mouth at bedtime labetalol (Normodyne) 200 MG tablet Indications: Elevated blood pressure affecting in first trimester, antepartum , High blood pressure affecting in first trimester, antepartum Take 1 tablet (200 mg) by mouth in the morning and 1 tablet (200 mg) in the evening and 1 tablet (200 mg) before bedtime. 270 tablet 05/29/2024 06/15/2024 Discontinued (Reorder) Start: 01-31-2024 take 100 mg by mouth twice kandace ly Labetalol Active 100 MG PO Twice daily January 31, 2024 12:00am take 2 tablets by mo uth in the morning, then take 2 tablets by mouth at bedtime labetaloL (NORMODYNE) 100 mg tablet Take 2 tablets (200 mg total) by mouth in the morning and 2 tablets (200 mg total) before bedtime. Active Problems Active Problems Problem Classification Problem Date Documented Date Episodic/Chronic Anxiety disorders (1 source) Anxiety disorder, unspecified; Translations: [ANXIETY DISORDER UNSPECIFIED] Onset: 01-15-2021 Chronic Diabetes or abnormal glucose tolerance complicating ; childbirth; or the puerperium (7 sources) Gestational diabetes mellitus in childbirth, diet controlled; Translations: [Gestational diabetes mellitus in , diet controlled] Onset: 12-19-2020 Episodic Essential hypertension (1 source) Hypertensive disorder; Translations: [Essential (primary) hypertension] 01-31-2024 Chronic Hypertension complicating ; childbirth and the puerperium (14 sources) Unspecified pre-existing hypertension complicating , third [...] SCREENING HUMAN PAPILLOMAVIRUS] Onset: 10-09-2021 Episodic Other complications of (1 source) ultrasound scan abnormal; Translations: [Abnormal ultrasonic finding on screening of mother] Onset: 06-21-2024 06-21-2024 Episodic Other complications of (2 sources) Heartburn; Translations: [Other specified related conditions, second trimester] 06-15-2024 Episodic Other nutritional; endocrine; and metabolic disorders (1 source) Body mass index 40+ - severely obese; Translations: [Body mass index (BMI) 40.0-44.9, adult] Onset: 06-21-2024 06-21-2024 Chronic Other and delivery including normal (10 sources) Encounter for care and examination of lactating mother; Translations: [Single live ] Onset: 02-11-2021 Episodic Other screening for suspected conditions (not mental disorders or infectious disease) (14 sources) Encounter for screening for malignant neoplasm of cervix; Translations: [Encounter for screening for Streptococcus B] Onset: 12-05-2020 Episodic Residual codes; unclassified (2 sources) Gestation period, 20 weeks; Translations: [20 weeks gestation of ] 05-18-2024 Episodic Residual codes; unclassified (2 sources) Gestation period, 24 weeks; Translations: [24 weeks gestation of ] 06-15-2024 Episodic Unclassified (1 source) CONTACT W/AND (SUSP) EXPOS COVID-19; Translations: [CONTACT W/AND (SUSP) EXPOS COVID-19] Onset: 02-27-2021 Past or Other Problems Problem Classification Problem Date Documented Da te Episodic/Chronic Diabetes mellitus without complication (4 sources) Other abnormal glucose; Translations: [OTHER ABNORMAL GLUCOSE] Onset: 12-12-2020 Episodic distress and abnormal forces of labor [...] Test Name Value Interpretation Reference Range Facility Urinalysis macro (dipstick) panel (U)on 06-15-2024 Bilirubin, UA Negative Negative - 4(70) +++ mg/dL [facility] Blood, UA Negative Negative - 50 Hardeep/mcL [facility] Clarity, UA Clear [facility] Color, UA Yellow [facility] Glucose, UA Positive Negative - 1999(110) ++++ mg/dL [facility] Interpretation and review of laboratory results Abnormal [facility] Ketones, UA Negative Negative - 160(16) ++++ mg/dL [facility] Leukocytes, UA Positive Negative - 500+++ Renee/mcL [facility] Nitrite, UA Negative Negative - Positive [facility] pH, UA 5.5 5 - 9 [facility] Protein, UA Negative Negative - 1999(20) ++++ mg/dL [facility] Spec Grav, UA 1.02 1 - 1.03 [facility] Urobilinogen, UA 1.0 0.2 - 12 mg/dL [facility] Urinalysis macro (dipstick) panel (U)on 05-18-2024 Bilirubin, UA Negative Negative - 4(70) +++ mg/dL [facility] Blood, UA Negative Negative - 50 Hardeep/mcL [facility] Clarity, UA Clear [facility] Color, UA Yellow [facility] Glucose, UA Negative Negative - 1999(110) ++++ mg/dL [facility] Interpretation and review of laboratory results Normal [facility] Ketones, UA Negative Negative - 160(16) ++++ mg/dL [facility] Leukocytes, UA Negative Negative - 500+++ Renee/mcL [facility] Nitrite, UA Negative Negative - Positive [facility] pH, UA 7 5 - 9 [facility] Protein, UA Negative Negative - 1999(20) ++++ mg/dL [facility] Spec Grav, UA 1.025 1 - 1.03 [facility] Urobilinogen, UA 0.2 0.2 - 12 mg/dL [facility] Activated partial thrombopla stin time (aPTT) in platelet poor plasma by coagulation aOrdered By: Terry Dudley on 01-31-2024 aPTT Coag (PPP) [Time] 26.1 s 25.1-36.5 [facility] Comment on above: A hematocrit value g reater than 55% may lead to inaccurate results in coagulation testing. Patients having hematocrit values >55% require a special collection tube for coagulation studies. Please contact the laboratory at [phone] for redraw instructions. Alanine aminotransferase [En zymatic activity/volume] in Serum or PlasmaOrdered By: Terry Dudley on 01-31-2024 ALT [Catalytic activity/Vol] 22 U/L Normal 7-52 [facility] Comment on above: Performed By: #### H S TROP, PTT, CMP, DDIMER, BNP, CK, PT, CBC #### [facility] [address] [place] [address] [place] Albumin [Mass/volume] in Ser um or Plasma by Bromocresol green (BCG) dye binding methoOrdered By: Terry Dudley on 01-31-2024 Albumin BCG dye [Mass/Vol] 4.7 g/dL 3.5-5.7 [facility] Alkaline phosphatase [Enzyma tic activity/volume] in Serum or PlasmaOrdered By: Terry Dudley on 01-31-2024 ALP [Catalytic activity/Vol] 67 U/L Normal 34-104 [facility] Comment on above: Performed By: #### H S TROP, PTT, CMP, DDIMER, BNP, CK, PT, CBC #### [facility] [address] [place] [address] [place] Aspartate aminotransferase [ Enzymatic activity/volume] in Serum or PlasmaOrdered By: Terry Dudley on 01-31-2024 AST [Catalytic activity/Vol] 17 U/L Normal 13-39 [facility] Comment on above: Performed By: #### H S TROP, PTT, CMP, DDIMER, BNP, CK, PT, CBC #### [address] Automated basophil %Ordered By: Terry Dudley on 01-31-2024 Basophils/100 WBC (Bld) 0.6 % Normal . [facility] Comment on above: Performed By: #### H S TROP, PTT, CMP, DDIMER, BNP, CK, PT, CBC #### [address] Automated basophil countOrde red By: Terry Dudley on 01-31-2024 Basophils (Bld) [#/Vol] 0.1 10*3/uL Normal 0.0-0.2 [facility] Comment on above: Result Comment: PERF ORMED BY: [place] [address] PATHOLOGIST [employer] CARLOS HITCHCOCK M.D. Performed By: #### H S TROP, PTT, CMP, DDIMER, BNP, CK, PT, CBC #### [address] Automated blood monocyte cou ntOrdered By: Terry Dudley on 01-31-2024 Monocytes (Bld) [#/Vol] 1.3 10*3/uL High 0.0-0.8 [facility] Comment on above: Performed By: #### H S TROP, PTT, CMP, DDIMER, BNP, CK, PT, CBC #### [address] Automated eosinophil %Ordere d By: Terry Dudley on 01-31-2024 Eosinophils/100 WBC (Bld) 0.3 % Normal . [facility] Comment on above: Performed By: #### H S TROP, PTT, CMP, DDIMER, BNP, CK, PT, CBC #### [address] Automated eosinophil countOr dered By: Terry Dudley on 01-31-2024 Eosinophils (Bld) [#/Vol] 0.1 10*3/uL Normal 0.0-0.45 [facility] Comment on above: Performed By: #### H S TROP, PTT, CMP, DDIMER, BNP, CK, PT, CBC #### [address] Automated monocyte %Ordered By: Terry Dudley on 01-31-2024 Monocytes/100 WBC (Bld) 7.5 % Normal . [facility] Comment on above: Performed By: #### H S TROP, PTT, CMP, DDIMER, BNP, CK, PT, CBC #### [address] Automated neutrophil %Ordere d By: Terry Dudley on 01-31-2024 Neutrophils/100 WBC (Bld) 79.8 % Normal . [facility] Comment on above: Performed By: #### H S TROP, PTT, CMP, DDIMER, BNP, CK, PT, CBC #### [address] BNP ser/plasOrdered By: Delgado Dudley on 01-31-2024 Natriuretic peptide B (Bld) [Mass/Vol] 30.0 pg/mL Normal 5-100 [facility] Comment on above: Result Comment: PERF ORMED BY: [place] [address] PATHOLOGIST [employer] CARLOS HITCHCOCK M.D. Performed By: #### H S TROP, PTT, CMP, DDIMER, BNP, CK, PT, CBC #### [address] Bilirubin Test strip Ql (U)O rdered By: Terry Dudley on 01-31-2024 Bilirubin Ql (U) Negative Negative [facility] Bilirubin.total [Mass/volume ] in Serum or PlasmaOrdered By: Terry Dudley on 01-31-2024 Bilirubin [Mass/Vol] 0.5 mg/dL Normal 0.3-1.0 [facility] Comment on above: Performed By: #### H S TROP, PTT, CMP, DDIMER, BNP, CK, PT, CBC #### [address] Calcium [Mass/volume] in Ser um or PlasmaOrdered By: Terry Dudley on 01-31-2024 Calcium [Mass/Vol] 9.6 mg/dL Normal 8.6-10.3 [facility] Comment on above: Performed By: #### H S TROP, PTT, CMP, DDIMER, BNP, CK, PT, CBC #### [facility] [address] Carbon dioxide, total [Moles /volume] in Serum or PlasmaOrdered By: Terry Dudley on 01-31-2024 CO2 [Moles/Vol] 30.1 mmol/L Normal 21.0-31.0 [facility] Comment on above: Performed By: #### H S TROP, PTT, CMP, DDIMER, BNP, CK, PT, CBC #### [address] Chloride [Moles/volume] in S marty or PlasmaOrdered By: Terry Dudley on 01-31-2024 Chloride [Moles/Vol] 101 mmol/L Normal 98-107 [facility] Comment on above: Performed By: #### H S TROP, PTT, CMP, DDIMER, BNP, CK, PT, CBC #### [address] Color of Urine by AutoOrdere d By: Terry Dudley on 01-31-2024 Color (U) Colorless Normal Yellow [facility] Comment on above: Order Comment: Name Collection Type:: Clean-Voided Midstream Performed By: #### U A, UHCG #### [address] Complete Blood Count Auto Di ffon 01-31-2024 Mean Corpuscular HGB Conc 34.6 g/dL Normal 32.0-35.0 [facility] Comment on above: Performed By: #### H S TROP, PTT, CMP, DDIMER, BNP, CK, PT, CBC #### [place] [address] [place] Monocytes/100 WBC (Bld) 14.85 % Normal 0.00-20.00 [facility] Comment on above: Performed By: #### H S TROP, PTT, CMP, DDIMER, BNP, CK, PT, CBC #### [address] NRBC% 0.0 /100{WBC} Normal 0-0.5 [facility] Comment on above: Performed By: #### H S TROP, PTT, CMP, DDIMER, BNP, CK, PT, CBC #### [address] Comprehensive Metabolic Pane urszula 01-31-2024 Albumin [Mass/Vol] 4.7 g/dL Normal 3.5-5.7 [facility] Comment on above: Performed By: #### H S TROP, PTT, CMP, DDIMER, BNP, CK, PT, CBC #### [address] Creatinine Clr Calc Pharmacy 119.17 Normal [facility] Comment on above: Result Comment: PERF ORMED BY: [place] [address] PATHOLOGIST [employer] CARLOS HITCHCOCK M.D. Performed By: #### H S TROP, PTT, CMP, DDIMER, BNP, CK, PT, CBC #### [address] GFR/1.73 sq M.predicted MDRD (S/P/Bld) [Vol rate/Area] mL/min/{1.73_m2} Normal [facility] Comment on above: Performed By: #### H S TROP, PTT, CMP, DDIMER, BNP, CK, PT, CBC #### [address] Creatine kinase [Enzymatic a ctivity/volume] in Serum or PlasmaOrdered By: Terry Dudley on 01-31-2024 CK [Catalytic activity/Vol] 76 U/L Normal 30-223 [facility] Comment on above: Performed By: #### H S TROP, PTT, CMP, DDIMER, BNP, CK, PT, CBC #### [address] [place] [address] [facility] Creatinine [Mass/volume] in Serum or PlasmaOrdered By: Terry Dudley on 01-31-2024 Creatinine [Mass/Vol] 0.80 mg/dL Normal 0.60-1.20 [facility] Comment on above: Performed By: #### H S TROP, PTT, CMP, DDIMER, BNP, CK, PT, CBC #### [facility] [address] [place] [id number] [facility] D-Dimer High Sensitivityon 0 01-31-2024 D-Dimer High Sensitivity < 200 Normal 0-243 [facility] Comment on above: Result Comment: [...] coagulation studies. Please contact the laboratory at [phone] for redraw instructions. PERFORMED BY: [place] [address] PATHOLOGIST [employer] CARLOS HITCHCOCK M.D. Performed By: #### H S TROP, PTT, CMP, DDIMER, BNP, CK, PT, CBC #### [address] [address] [facility] ECG 12 lead ECGon 01-31-2024 ECG 12 lead ECG [facility] Main [place] [address] [place], [place] [id number] Electrocardiograph Report Signed Patient: Samantha Taylor MR#: [id number] : 1995 Acct:[id number] Age/Sex: 28 / F ADM Date: 01/31/24 Loc: ER Room: Type: [facility] ER Attending Dr: Ordering Provider: [...] By Terry Dudley DO 1923 Normal [facility] Erythrocyte distribution wid th [Ratio] by Automated countOrdered By: Terry Dudley on 01-31-2024 Erythrocyte distribution width (RBC) [Ratio] 12.4 % Normal 11.9-15.3 [facility] Comment on above: Performed By: #### H S TROP, PTT, CMP, DDIMER, BNP, CK, PT, CBC #### [facility] [address] Erythrocytes [#/volume] in B lood by Automated countOrdered By: Terry Dudley on 01-31-2024 RBC (Bld) [#/Vol] 4.93 10*6/uL Normal 3.60-5.00 [facility] Comment on above: Performed By: #### H S TROP, PTT, CMP, DDIMER, BNP, CK, PT, CBC #### [facility] [address] Fibrin D-dimer [Presence] in Platelet poor plasma by Latex agglutinationOrdered By: Terry Dudley on 01-31-2024 Fibrin D-dimer LA Ql (PPP) < 200 ng/mL 0-243 [facility] Comment on above: The reference range for [...] coagulation studies. Please contact the laboratory at [phone] for redraw instructions. Glucose [Mass/volume] in Ser um or PlasmaOrdered By: Terry Dudley on 01-31-2024 Glucose [Mass/Vol] 91 mg/dL Normal 70-100 [facility] Comment on above: ADA recommended refe rence rangeRandom Glucose Reference Range is dependent on time and content of last meal. Glucose of more than 200 mg/dL in a nonstressed, ambulatory subject supports the diagnosis of Diabetes Mellitus. Result Comment: [place] om Glucose Reference Range is dependent on time and content of last meal. Glucose of more than 200 mg/dL in a nonstressed, ambulatory subject supports the diagnosis of Diabetes Mellitus. ADA recommended reference range Performed By: #### H S TROP, PTT, CMP, DDIMER, BNP, CK, PT, CBC #### [place] [id number] [facility] Glucose [Mass/volume] in Uri ne by Test stripOrdered By: Terry Dudley on 01-31-2024 Glucose Test strip (U) [Mass/Vol] Normal mg/dL Normal [facility] HCG ( test) IA.rapi d Ql (U)Ordered By: Terry Dudley on 01-31-2024 HCG ( test) Ql (U) Positive [facility] HCG,Urineon 01-31-2024 Beta HCG ( test) Ql (U) Positive High [facility] Comment on above: Order Comment: Name Collection Type:: Clean-Voided Midstream Result Comment: PERF ORMED BY: [place] [address] PATHOLOGIST [employer] CARLOS HITCHCOCK M.D. Performed By: #### H S TROP, PTT, CMP, DDIMER, BNP, CK, PT, CBC #### [facility] [address] Hematocrit [Volume Fraction] of Blood by Automated countOrdered By: Terry Dudley on 01-31-2024 Hematocrit (Bld) [Volume fraction] 45.1 % Normal 34.0-46.4 [facility] Comment on above: Performed By: #### H S TROP, PTT, CMP, DDIMER, BNP, CK, PT, CBC #### [facility] [address] Hemoglobin Test strip Ql (U) Ordered By: Terry Dudley on 01-31-2024 Hemoglobin Ql (U) Negative Negative [facility] Hemoglobin [Mass/volume] in BloodOrdered By: Terry Dudley on 01-31-2024 Hemoglobin (Bld) [Mass/Vol] 15.6 g/dL High 11.8-15.4 [facility] Comment on above: Performed By: #### H S TROP, PTT, CMP, DDIMER, BNP, CK, PT, CBC #### [facility] [address] INR in Platelet poor plasma by Coagulation assayOrdered By: Terry Dudley on 01-31-2024 INR Coag (PPP) [Relative time] 1.2 {INR} Normal [facility] Comment on above: INR Therapeutic Rang e [...] CMP, DDIMER, BNP, CK, PT, CBC #### [address] Ketones [Presence] in Urine by Test stripOrdered By: Terry Dudley on 01-31-2024 Ketones Ql (U) Negative Normal Negative [facility] Comment on above: Order Comment: Name Collection Type:: Clean-Voided Midstream Performed By: #### U A, CG #### [address] Leukocyte esterase [Presence ] in Urine by Test stripOrdered By: Terry Dudley on 01-31-2024 Leukocyte esterase Test strip Ql (U) Negative Normal Negative [facility] Comment on above: Order Comment: Name Collection Type:: Clean-Voided Midstream Performed By: #### U A, UHCG #### [address] Leukocytes [#/volume] correc edna for nucleated erythrocytes in Blood by Automated counOrdered By: Terry Dudley on 01-31-2024 WBC corrected for nucl RBC Auto (Bld) [#/Vol] 17.5 10*3/uL High 3.8-11.6 [facility] Leukocytes [#/volume] in Blo od by Automated countOrdered By: Terry Dudley on 01-31-2024 WBC (Bld) [#/Vol] 17.5 10*3/uL High 3.8-11.6 [facility] Comment on above: Performed By: #### H S TROP, PTT, CMP, DDIMER, BNP, CK, PT, CBC #### [address] Lymphocytes [#/volume] in Bl ood by Automated countOrdered By: Terry Dudley on 01-31-2024 Lymphocytes (Bld) [#/Vol] 2.1 10*3/uL Normal 1.00-4.8 [facility] Comment on above: Performed By: #### H S TROP, PTT, CMP, DDIMER, BNP, CK, PT, CBC #### [facility] [address] [place] [address] Lymphocytes/100 leukocytes i n Blood by Automated countOrdered By: Terry Dudley on 01-31-2024 Lymphocytes/100 WBC (Bld) 11.8 % Normal . [facility] Comment on above: Performed By: #### H S TROP, PTT, CMP, DDIMER, BNP, CK, PT, CBC #### [facility] [address] [place] [address] MCH [Entitic mass] by Automa edna countOrdered By: Terry Dudley on 01-31-2024 MCH (RBC) [Entitic mass] 31.7 pg Normal 24.7-34.3 [facility] Comment on above: Performed By: #### H S TROP, PTT, CMP, DDIMER, BNP, CK, PT, CBC #### [address] MCHC Auto (RBC) [Mass/Vol]Or dered By: Terry Dudley on 01-31-2024 MCHC (RBC) [Mass/Vol] 34.6 g/dL 32.0-35.0 [facility] MCV [Entitic volume] by Auto mated countOrdered By: Terry Dudley on 01-31-2024 MCV (RBC) [Entitic vol] 91.4 fL Normal 80-100 [facility] Comment on above: Performed By: #### H S TROP, PTT, CMP, DDIMER, BNP, CK, PT, CBC #### [facility] [address] [place] [address] Monocyte distribution width [Entitic volume] in Blood by AutomatedOrdered By: Terry Dudley on 01-31-2024 Monocyte distribution width Auto (Bld) [Entitic vol] 14.85 % 0.00-20.00 [facility] Neutrophils [#/volume] in Bl ood by Automated countOrdered By: Terry Dudley on 01-31-2024 Neutrophils (Bld) [#/Vol] 14.0 10*3/uL High 1.8-7.7 [facility] Comment on above: Performed By: #### H S TROP, PTT, CMP, DDIMER, BNP, CK, PT, CBC #### [facility] [address] Nitrite Test strip Ql (U)Ord ered By: Terry Dudley on 01-31-2024 Nitrite Ql (U) Negative Negative [facility] No Panel InformationOrdered By: Terry Dudley on 01-31-2024 Estimated GFR (CKD-EPI) > 60.0 mL/Min [facility] Creatinine Clearance (Chem 119.17 [facility] Nucleated erythrocytes [Pres ence] in Blood by Automated countOrdered By: Terry Dudley on 01-31-2024 Nucleated RBC Auto Ql (Bld) 0.0 /100{WBC} 0-0.5 [facility] Partial Thromboplastin Timeo n 01-31-2024 aPTT Coag (Bld) [Time] 26.1 s Normal 25.1-36.5 [facility] Comment on above: Result Comment: A he matocrit value greater than 55% may lead to inaccurate results in coagulation testing. Patients having hematocrit values >55% require a special collection tube for coagulation studies. Please contact the laboratory at [phone] for redraw instructions. Performed By: #### H S TROP, PTT, CMP, DDIMER, BNP, CK, PT, CBC #### [facility] [address] Platelet mean volume [Entiti c volume] in Blood by Automated countOrdered By: Terry Dudley on 01-31-2024 Platelet mean volume (Bld) [Entitic vol] 8.7 fL Normal 6.3-10.7 [facility] Comment on above: Performed By: #### H S TROP, PTT, CMP, DDIMER, BNP, CK, PT, CBC #### [facility] [address] [place] [address] [place] Platelets [#/volume] in Bloo d by Automated countOrdered By: Terry Dudley on 01-31-2024 Platelets (Bld) [#/Vol] 297 10*3/uL Normal 150-450 [facility] Comment on above: Performed By: #### H S TROP, PTT, CMP, DDIMER, BNP, CK, PT, CBC #### [facility] [address] [place] [address] [place] Potassium [Moles/volume] in Serum or PlasmaOrdered By: Terry Dudley on 01-31-2024 Potassium [Moles/Vol] 3.4 mmol/L Low 3.5-5.1 [facility] Comment on above: Performed By: #### H S TROP, PTT, CMP, DDIMER, BNP, CK, PT, CBC #### [facility] [address] [place] [id number] [facility] Protein Test strip (U) [Mass /Vol]Ordered By: Terry Dudley on 01-31-2024 Protein (U) [Mass/Vol] Negative Negative [facility] Protein [Mass/volume] in Ser um or PlasmaOrdered By: Terry Dudley on 01-31-2024 Protein [Mass/Vol] 7.7 g/dL Normal 6.4-8.9 [facility] Comment on above: Performed By: #### H S TROP, PTT, CMP, DDIMER, BNP, CK, PT, CBC #### [facility] [address] [place] [id number] [facility] Prothrombin time (PT)Ordered By: Terry Dudley on 01-31-2024 PT Coag (PPP) [Time] 14.0 s High 9.0-12.9 [facility] Comment on above: A hematocrit value g reater than 55% may lead to inaccurate results in coagulation testing. Patients having hematocrit values >55% require a special collection tube for coagulation studies. Please contact the laboratory at [phone] for redraw instructions. Result Comment: A he matocrit value greater than 55% may lead to inaccurate results in coagulation testing. Patients having hematocrit values >55% require a special collection tube for coagulation studies. Please contact the laboratory at [phone] for redraw instructions. Performed By: #### H S TROP, PTT, CMP, DDIMER, BNP, CK, PT, CBC #### [facility] [address] Serum globulin measurement b y calculation (mass/volume)Ordered By: Terry Dudley on 01-31-2024 Globulin (S) [Mass/Vol] 3.0 g/dL Normal [facility] Comment on above: Performed By: #### H S TROP, PTT, CMP, DDIMER, BNP, CK, PT, CBC #### [facility] [address] [place] [address] Serum or plasma albumin/glob ulin mass ratioOrdered By: Terry Dudley on 01-31-2024 Albumin/Globulin [Mass ratio] 1.6 {ratio} [facility] Comment on above: Performed By: #### H S TROP, PTT, CMP, DDIMER, BNP, CK, PT, CBC #### [facility] [address] [place] [address] Serum or plasma anion gap de terminationOrdered By: Terry Dudley on 01-31-2024 Anion gap [Moles/Vol] 8.3 mmol/L Normal 6.0-15.0 [facility] Comment on above: Performed By: #### H S TROP, PTT, CMP, DDIMER, BNP, CK, PT, CBC #### [address] Sodium [Moles/volume] in Ser um or PlasmaOrdered By: Terry Dudley on 01-31-2024 Sodium [Moles/Vol] 136 mmol/L Normal 136-145 [facility] Comment on above: Performed By: #### H S TROP, PTT, CMP, DDIMER, BNP, CK, PT, CBC #### [address] Specific gravity Test strip (U) [Rel density]Ordered By: Terry Dudley on 01-31-2024 Specific gravity (U) [Rel density] 1.005 1.001-1.03 0 [facility] Troponin I High Sensitivityo n 01-31-2024 Troponin I High Sensitivity 3.5 pg/mL Normal 0.0-15.0 [facility] Comment on above: Result Comment: PERF ORMED BY: [place] [address] PATHOLOGIST [employer] CARLOS HITCHCOCK M.D. Performed By: #### H S TROP, PTT, CMP, DDIMER, BNP, CK, PT, CBC #### [facility] [address] [place] [address] [place] Troponin I.cardiac [Mass/vol ume] in Serum or Plasma by Detection limit <= 0.01 ng/Ordered By: Terry Dudley on 01-31-2024 Troponin I.cardiac DL <= 0.01 ng/mL [Mass/Vol] 3.5 pg/mL 0.0-15.0 [facility] Urea nitrogen [Mass/volume] in Serum or PlasmaOrdered By: Terry Dudley on 01-31-2024 Urea nitrogen [Mass/Vol] 10 mg/dL Normal 7-25 [facility] Comment on above: Performed By: #### H S TROP, PTT, CMP, DDIMER, BNP, CK, PT, CBC #### [facility] [address] [place] [address] [place] Urinalysison 01-31-2024 Bilirubin,Urine Negative Normal Negative [facility] Comment on above: Order Comment: Name Collection Type:: Clean-Voided Midstream Performed By: #### U A, UHCG #### [facility] [address] [place] [address] [place] Glucose Ql (U) Normal Normal Normal [facility] Comment on above: Order Comment: Name Collection Type:: Clean-Voided Midstream Performed By: #### U A, UHCG #### [place] [address] [place] Nitrite,Urine Negative Normal Negative [facility] Comment on above: Order Comment: Name Collection Type:: Clean-Voided Midstream Performed By: #### U A, UHCG #### [facility] [address] [place] [id number] [place] Occult Blood,Urine Negative Normal Negative [facility] Comment on above: Order Comment: Name Collection Type:: Clean-Voided Midstream Performed By: #### U A, UHCG #### [facility] [address] [place] [id number] [place] Protein,Urine Negative Normal Negative [facility] Comment on above: Order Comment: Name Collection Type:: Clean-Voided Midstream Performed By: #### U A, UHCG #### [address] Specificy Chauncey,Urine 1.005 Normal 1.001-1.03 0 [facility] Comment on above: Order Comment: Name Collection Type:: Clean-Voided Midstream Performed By: #### U A, UHCG #### [address] Urobilinogen,Urine Normal Normal Normal [facility] Comment on above: Order Comment: Name Collection Type:: Clean-Voided Midstream Performed By: #### U A, UHCG #### [address] Urine appearanceOrdered By: Terry Dudley on 01-31-2024 Appearance (U) Clear Normal Clear [facility] Comment on above: Order Comment: Name Collection Type:: Clean-Voided Midstream Performed By: #### U A, UHCG #### [address] Urobilinogen Test strip (U) [Mass/Vol]Ordered By: Terry Dudley on 01-31-2024 Urobilinogen (U) [Mass/Vol] Normal mg/dL Normal [facility] pH of Urine by Test stripOrd ered By: Terry Dudley on 01-31-2024 pH (U) 6.5 [pH] Normal 5.0-9.0 [facility] Comment on above: Order Comment: Name Collection Type:: Clean-Voided Midstream Performed By: #### U A, UHCG #### [address] PAP ACOG PANEL 2: 23 to 31on 10-14-2021 . . Normal [facility] Comment on above: Performed By: #### P TT #### [facility] [address] [address] Kaela Dimas Age Gdln ACOG Testing - Normal [facility] Comment on above: Performed By: #### P TT #### [facility] [address] [address] Kaela Dimas DIAGNOSIS: Comment Normal [facility] Comment on above: Result Comment: NEGA TIVE FOR INTRAEPITHELIAL LESION OR MALIGNANCY. CELLULAR CHANGES ASSOCIATED WITH INFLAMMATION ARE PRESENT. Performed By: #### P TT #### [facility] [address] [place] [address] Kaela Dimas Methodology: Comment Normal [facility] Comment on above: Result Comment: This liquid based ThinPrep(R) pap test was screened with the use of an image guided system. Performed By: #### P TT #### [facility] [address] [place] [address] Kaela Dimas Note: Comment Normal [facility] Comment on above: Result Comment: The Pap smear is a screening test designed to aid in the detection of premalignant and malignant conditions of the uterine cervix. It is not a diagnostic procedure and should not be used as the sole means of detecting cervical cancer. Both false-positive and false-negative reports do occur. . Performed By: #### P TT #### [facility] [address] [place] [address] Kaela Dimas Performed by: Comment Normal [facility] Comment on above: Result Comment: Nancy Collins, Bonded Structures Repairer (ASCP) Performed By: #### P TT #### [facility] [address] [place] [address] Kaela iDmas Reflex Criteria: Comment Normal [facility] Comment on above: Result Comment: The HPV DNA reflex criteria were not met with this specimen result therefore, no HPV testing was performed. . Performed By: #### P TT #### [facility] [address] [place] [address] Kaela Dimas Specimen adequacy: Comment Normal [facility] Comment on above: Result Comment: Sati sfactory for evaluation. Endocervical and/or squamous metaplastic cells (endocervical component) are present. Performed By: #### P TT #### [facility] [address] [place] [address] Kaela Dimas CBC AUTO DIFFon 02-07-2021 BASO # 0.1 103/ul Normal 0.0-0.1 [facility] Comment on above: Performed By: #### C BC #### [facility] [address] [place], [place] [id number] Kaela Judie Basophils/100 WBC (Bld) 0.3 % Normal 0.2-2.0 [facility] Comment on above: Performed By: #### C BC #### [facility] [address] [place], [place] [id number] Kaela Judie EO # 0.1 103/ul Normal 0.0-0.7 [facility] Comment on above: Performed By: #### C BC #### [facility] [address] [place], [place] [id number] Kaela Judie Eosinophils/100 WBC (Bld) 0.5 % Critically low 0.9-7.0 [facility] Comment on above: Performed By: #### C BC #### [facility] [address] [place], [place] [id number] Kaela Judie Erythrocyte distribution width (RBC) [Ratio] 12.3 % Normal 11.0-15.0 [facility] Comment on above: Performed By: #### C BC #### [facility] [address] [place], [place] [id number] Kaela Judie Hematocrit (Bld) [Volume fraction] 33.8 % Critically low 36.0-48.0 [facility] Comment on above: Performed By: #### C BC #### [facility] [address] [place], [place] [id number] Kaela Judie Hemoglobin (Bld) [Mass/Vol] 11.6 g/dL Critically low 12.0-16.0 [facility] Comment on above: Performed By: #### C BC #### [facility] [address] [place], [place] [id number] Kaela Judie IG # 0.20 10e3/ul Critically high 0.00-0.03 [facility] Comment on above: Performed By: #### C BC #### [facility] [address] [place], [place] [id number] Kaela Judie IG % 1.2 % Critically high 0.0-0.5 [facility] Comment on above: Performed By: #### C BC #### [facility] [address] [place] [address] Kaela Dimas LYMPH # 1.6 103/ul Normal 1.2-3.8 [facility] Comment on above: Performed By: #### C BC #### [facility] [address] [place], [place] [id number] Kaela Dimas Lymphocytes/100 WBC (Bld) 9.2 % Critically low 20.5-60.0 [facility] Comment on above: Performed By: #### C BC #### [facility] [address] [place] [address] Kaela Dimas MANUAL DIFF REQ NO Normal [facility] Comment on above: Performed By: #### C BC #### [facility] [address] [place] [address] Kaela Dimas MCH (RBC) [Entitic mass] 30.8 pg Normal 26.7-34.0 [facility] Comment on above: Performed By: #### C BC #### [facility] [address] [place], [place] [id number] Kaela Dimas MCHC (RBC) [Mass/Vol] 34.3 g/dL Normal 29.9-35.2 [facility] Comment on above: Performed By: #### C BC #### [facility] [address] [place] [address] Kaela Dimas MCV (RBC) [Entitic vol] 89.7 fL Normal 81.0-99.0 [facility] Comment on above: Performed By: #### C BC #### [facility] [address] [place], [place] [id number] Kaela Judie MONO # 0.9 103/ul Critically high 0.3-0.8 [facility] Comment on above: Performed By: #### C BC #### [facility] [address] [place] [address] Kaela Dimas Monocytes/100 WBC (Bld) 5.5 % Normal 1.7-12.0 [facility] Comment on above: Performed By: #### C BC #### [facility] [address] [id number] Kaela Dimas NEUT # 14.1 103/ul Critically high 1.4-6.5 [facility] Comment on above: Performed By: #### C BC #### [facility] [address] [place] [address] Kaela Dimas Neutrophils/100 WBC (Bld) 83.3 % Critically high 43.0-75.0 [facility] Comment on above: Performed By: #### C BC #### [facility] [address] [place] [address] Kaela Dimas Platelet mean volume (Bld) [Entitic vol] 11.0 fL Normal 9.5-13.5 [facility] Comment on above: Performed By: #### C BC #### [facility] [address] [place] [address] Kaela Dimas PLT 192 103/ul Normal 150-450 [facility] Comment on above: Performed By: #### C BC #### [facility] [address] [place] [address] Kaela Dimas RBC 3.77 106/ul Critically low 4.20-5.40 [facility] Comment on above: Performed By: #### C BC #### [facility] [address] [place] [address] Kaela Dimas WBC 16.9 103/ul Critically high 4.0-11.0 [facility] Comment on above: Performed By: #### C BC #### [facility] [address] [place], [place] [id number] Kaela Dimas ASYMPTOMATIC COVID-19 ANTIGE Non 02-05-2021 EUA Statement SEE BELOW Normal [facility] Comment on above: Result Comment: This test [...] sooner. Performed By: #### G TT3P #### [facility] [address] [place] [address] Kaela Dimas SARS-CoV-2 (COVID-19) RNA RIGOBERTO+probe Ql (Unsp spec) Negative Normal NEGATIVE [facility] Comment on above: Result Comment: Nega tive results are presumptive. They do not preclude infection and should not be used as the sole basis for treatment decisions. Additional confirmatory testing by a molecular method should be considered. Performed By: #### G TT3P #### [facility] [address] [place] [address] Kaela Dimas CBC AUTO DIFFon 02-05-2021 BASO # 0.1 103/ul Normal 0.0-0.1 [facility] Comment on above: Performed By: #### C BC #### [facility] [address] [place] [address] Kaela Dimas Basophils/100 WBC (Bld) 0.3 % Normal 0.2-2.0 [facility] Comment on above: Performed By: #### C BC #### [facility] [address] [place] [address] Kaela Dimas EO # 0.1 103/ul Normal 0.0-0.7 [facility] Comment on above: Performed By: #### C BC #### [facility] [address] [place], [place] [id number] Kaela Dimas Eosinophils/100 WBC (Bld) 0.3 % Critically low 0.9-7.0 [facility] Comment on above: Performed By: #### C BC #### [facility] [address] [place] [address] Kaela Dimas Erythrocyte distribution width (RBC) [Ratio] 12.0 % Normal 11.0-15.0 [facility] Comment on above: Performed By: #### C BC #### [facility] [address] [place] [address] Kaela Dimas Hematocrit (Bld) [Volume fraction] 36.9 % Normal 36.0-48.0 [facility] Comment on above: Performed By: #### C BC #### [facility] [address] [place], [place] [id number] Kaela Dimas Hemoglobin (Bld) [Mass/Vol] 12.7 g/dL Normal 12.0-16.0 [facility] Comment on above: Performed By: #### C BC #### [facility] [address] [place] [address] Kaela Dimas IG # 0.19 10e3/ul Critically high 0.00-0.03 [facility] Comment on above: Performed By: #### C BC #### [facility] [address] [place] [address] Kaela Dimas IG % 1.0 % Critically high 0.0-0.5 [facility] Comment on above: Performed By: #### C BC #### [facility] [address] [place] [address] Kaela Dimas LYMPH # 1.4 103/ul Normal 1.2-3.8 [facility] Comment on above: Performed By: #### C BC #### [facility] [address] [place] [address] Kaela Dimas Lymphocytes/100 WBC (Bld) 7.6 % Critically low 20.5-60.0 [facility] Comment on above: Performed By: #### C BC #### [facility] [address] [place], [place] [id number] Kaela Dimas MANUAL DIFF REQ NO Normal [facility] Comment on above: Performed By: #### C BC #### [facility] [address] [place], [place] [id number] Kaela Dimas MCH (RBC) [Entitic mass] 30.5 pg Normal 26.7-34.0 [facility] Comment on above: Performed By: #### C BC #### [facility] [address] [place], [place] [address] Kaela Dimas MCHC (RBC) [Mass/Vol] 34.4 g/dL Normal 29.9-35.2 [facility] Comment on above: Performed By: #### C BC #### [facility] [address] [place], [place] [address] Kaela Dimas MCV (RBC) [Entitic vol] 88.5 fL Normal 81.0-99.0 [facility] Comment on above: Performed By: #### C BC #### [facility] [address] [place], [place] [address] Kaela Judie MONO # 1.0 103/ul Critically high 0.3-0.8 [facility] Comment on above: Performed By: #### C BC #### [facility] [address] [place] [id number] Kaela Judie Monocytes/100 WBC (Bld) 5.5 % Normal 1.7-12.0 [facility] Comment on above: Performed By: #### C BC #### [facility] [address] [place], [place] [address] Kaela Judie NEUT # 15.7 103/ul Critically high 1.4-6.5 [facility] Comment on above: Performed By: #### C BC #### [facility] [address] [place], [place] [address] Kaela Judie Neutrophils/100 WBC (Bld) 85.3 % Critically high 43.0-75.0 [facility] Comment on above: Performed By: #### C BC #### [facility] [address] [place], [place] [address] Kaelastephanie Dimas Platelet mean volume (Bld) [Entitic vol] 11.8 fL Normal 9.5-13.5 [facility] Comment on above: Performed By: #### C BC #### [facility] [address] [place], [place] [address] Kaela Judie PLT 226 103/ul Normal 150-450 [facility] Comment on above: Performed By: #### C BC #### [facility] [address] [place] [address] Kaela Dimas RBC 4.17 106/ul Critically low 4.20-5.40 [facility] Comment on above: Performed By: #### C BC #### [facility] [address] [place] [address] Kaela Dimas WBC 18.5 103/ul Critically high 4.0-11.0 [facility] Comment on above: Performed By: #### C BC #### [facility] [address] [place] [address] Kaela Dimas DRUG SCREEN RAPID (URINE)on 02-05-2021 AMP Negative Normal NEGATIVE [facility] Comment on above: Performed By: #### D RUGRPD #### [facility] [address] [place] [address] Kaelastephanie Dimas BAR Negative Normal NEGATIVE [facility] Comment on above: Performed By: #### D RUGRPD #### [facility] [address] [place] [address] Kaela Judie BUP Negative Normal NEGATIVE [facility] Comment on above: Performed By: #### D RUGRPD #### [facility] [address] [place] [address] Kaela Judie BZO Negative Normal NEGATIVE [facility] Comment on above: Performed By: #### D RUGRPD #### [facility] [address] [place] [address] Kaela Judie JERRY Negative Normal NEGATIVE [facility] Comment on above: Performed By: #### D RUGRPD #### [facility] [address] [place] [address] Kaelastephanie Dimas CUT-OFFS SEE BELOW Normal [facility] Comment on above: Result Comment: AMP (Amphetamine): 500ng/mL, BAR (Barbituates): 200 ng/mL, BZO (Benzodiazepines): 150 ng/mL, BUP (Buprenorphine): 10 ng/mL, JERRY (Cocaine): 150 ng/mL, mAMP (Methamphetamine): 500 ng/mL, MTD (Methadone): 200 ng/mL, OPI (Opiates): 100 ng/mL, OXY (Oxycodone): 100 ng/mL, PCP (Phencyclidine): 25 ng/mL, PPX (Propoxyphene): 300 ng/mL, THC (Cannabinoids): 50 ng/mL, TCA (Trycyclic Antidepressants): 300 ng/mL Performed By: #### D RUGRPD #### [facility] [address] [place] [address] Kaela Judie DRUG CUT HEADER DRUG CLASS TEST SYST EM CUT-OFF CONCENTRATIONS ARE FOLLOWS: Normal [facility] Comment on above: Performed By: #### D RUGRPD #### [facility] [address] [place] [address] Kaela Judie mAMP Negative Normal NEGATIVE [facility] Comment on above: Performed By: #### D RUGRPD #### [facility] [address] [place] [address] Kaela Judie MTD Negative Normal NEGATIVE [facility] Comment on above: Performed By: #### Roxanne RUGRPD #### [facility] [address] [place] [address] Kaela Judie OPI Negative Normal NEGATIVE [facility] Comment on above: Performed By: #### Roxanne RUGRPD #### [facility] [address] [place] [address] Kaela Judie OXY Negative Normal NEGATIVE [facility] Comment on above: Performed By: #### D RUGRPD #### [facility] [address] [place] [address] Kaela Judie PCP Negative Normal NEGATIVE [facility] Comment on above: Performed By: #### D RUGRPD #### [facility] [address] [place] [address] Kalea Judie PPX Negative Normal NEGATIVE [facility] Comment on above: Performed By: #### D RUGRPD #### [facility] [address] [place] [address] Kaela Judie TCA Negative Normal NEGATIVE [facility] Comment on above: Performed By: #### Roxanne RUGRPD #### [facility] [address] [place] [address] Kaela Judie THC Negative Normal NEGATIVE [facility] Comment on above: Performed By: #### D RUGRPD #### [facility] [address], [place] [address] Kaela Dimas TYPE AND SCREENon 02-05-2021 TYPE AND SCREEN Negative Normal [facility] Comment on above: Performed By: #### P TT #### [facility] [address], [place] [address] Kaela Dimas GROUP B STREP CULTUREon S. agalactiae Ag Ql (Unsp spec) Culture Observations: NEGATIVE FOR GROUP B STREPTOCOCCUS. Normal [facility] Comment on above: Performed By: #### P TT #### [facility] [address], [place] [address] Kaela Dimas US PREG BIOPHY W NON [...] by: MICHELLE LANE Date: 2021-01-30 08:23 Normal [facility] US PREG GROWTHon 01-30-2021 US PREG GROWTH [...] by: MICHELLE LANE Date: 2021-01-30 08:25 Normal [facility] US PREG BIOPHY W NON [...] by: MICHELLE LANE Date: 2021-01-23 07:22 Normal [facility] US PREG BIOPHY W NON [...] by: MICHELLE LANE Date: 2021-01-16 07:31 Normal [facility] PROTEIN 24HR URINEon 021 T PROT, 24 HR UR 603.9 mg/24 hr Critically high 42.0-225.0 [facility] Comment on above: Performed By: #### G TT3P #### [facility] [address] [place], [place] [id number] Kaelastephanie Sahuen UR PROT 12.2 mg/dL Critically high <=12.0 [facility] Comment on above: Performed By: #### G TT3P #### [facility] [address] [place], [place] [id number] Kaela Judie UR TOT VOL 4950 ml/24 HR Normal [facility] Comment on above: Performed By: #### G TT3P #### [facility] [address] [place] [address] Kaela Judie CBC AUTO DIFFon 01-13-2021 BASO # 0.0 103/ul Normal 0.0-0.1 [facility] Comment on above: Performed By: #### G TT3P #### [facility] [address] [place] [address] Kaela Dimas Basophils/100 WBC (Bld) 0.2 % Normal 0.2-2.0 [facility] Comment on above: Performed By: #### G TT3P #### [facility] [address] [place], [place] [id number] Kaelastephanie Dimas EO # 0.1 103/ul Normal 0.0-0.7 [facility] Comment on above: Performed By: #### G TT3P #### [facility] [address] [place] [address] Kaela Dimas Eosinophils/100 WBC (Bld) 0.6 % Critically low 0.9-7.0 [facility] Comment on above: Performed By: #### G TT3P #### [facility] [address] [place], [place] [id number] Kaelastephanie Dimas Erythrocyte distribution width (RBC) [Ratio] 11.7 % Normal 11.0-15.0 [facility] Comment on above: Performed By: #### G TT3P #### [facility] [address] [place], [place] [id number] Kaela Judie Hematocrit (Bld) [Volume fraction] 34.5 % Critically low 36.0-48.0 [facility] Comment on above: Performed By: #### G TT3P #### [facility] [address] [place] [address] Kaela Dimas Hemoglobin (Bld) [Mass/Vol] 12.1 g/dL Normal 12.0-16.0 [facility] Comment on above: Performed By: #### G TT3P #### [facility] [address] [place] [address] Kaela Dimas IG # 0.20 10e3/ul Critically high 0.00-0.03 [facility] Comment on above: Performed By: #### G TT3P #### [facility] [address] [place] [address] Kaela Dimas IG % 1.2 % Critically high 0.0-0.5 [facility] Comment on above: Performed By: #### G TT3P #### [facility] [address] [place] [address] Kaela Dimas LYMPH # 1.5 103/ul Normal 1.2-3.8 [facility] Comment on above: Performed By: #### G TT3P #### [facility] [address] [place] [address] Kaela Dimas Lymphocytes/100 WBC (Bld) 8.6 % Critically low 20.5-60.0 [facility] Comment on above: Performed By: #### G TT3P #### [facility] [address] [place] [address] Kaela Dimas MANUAL DIFF REQ NO Normal [facility] Comment on above: Performed By: #### G TT3P #### [facility] [address] [place] [address] Kaela Dimas MCH (RBC) [Entitic mass] 30.6 pg Normal 26.7-34.0 [facility] Comment on above: Performed By: #### G TT3P #### [facility] [address] [place] [address] Kaela Dimas MCHC (RBC) [Mass/Vol] 35.1 g/dL Normal 29.9-35.2 [facility] Comment on above: Performed By: #### G TT3P #### [facility] [address], [place] [address] Kaela Dimas MCV (RBC) [Entitic vol] 87.3 fL Normal 81.0-99.0 [facility] Comment on above: Performed By: #### G TT3P #### [facility] [address], [place] [address] Kaela Dimas MONO # 1.2 103/ul Critically high 0.3-0.8 [facility] Comment on above: Performed By: #### G TT3P #### [facility] [address] [place], [place] [address] Kaela Dimas Monocytes/100 WBC (Bld) 6.6 % Normal 1.7-12.0 [facility] Comment on above: Performed By: #### G TT3P #### [facility] [address] [place], [place] [address] Kaela Sahuen NEUT # 14.4 103/ul Critically high 1.4-6.5 [facility] Comment on above: Performed By: #### G TT3P #### [facility] [address] [place], [place] [address] Kaela Dimas Neutrophils/100 WBC (Bld) 82.8 % Critically high 43.0-75.0 [facility] Comment on above: Performed By: #### G TT3P #### [facility] [address] [place], [place] [address] Kaela Dimas Platelet mean volume (Bld) [Entitic vol] 12.1 fL Normal 9.5-13.5 [facility] Comment on above: Performed By: #### G TT3P #### [facility] [address] [place], [place] [address] Kaela Judie PLT 216 103/ul Normal 150-450 [facility] Comment on above: Performed By: #### G TT3P #### [facility] [address] [place], [place] [address] Kaela Judie RBC 3.95 106/ul Critically low 4.20-5.40 [facility] Comment on above: Performed By: #### G TT3P #### [facility] [address] [place] [address] Kaela Judie WBC 17.4 103/ul Critically high 4.0-11.0 [facility] Comment on above: Performed By: #### G TT3P #### [facility] [address] [place] [address] Kaela Judie CULTURE URINEon 01-13-2021 CULTURE URINE Culture Observations : LIGHT GROWTH OF MIXED GENITAL TINO. NO POTENTIAL PATHOGENS SEEN. Normal [facility] Comment on above: Performed By: #### P TT #### [facility] [address] [place], [place] [id number] Kaela Judie LDHon 01-13-2021 LDH 194 U/L Normal 122-222 [facility] Comment on above: Performed By: #### U ELIZABETH, LDH #### [facility] [address] [place] [address] Kaelastephanie Sahuen PROF 14(COMP METB)on 021 Albumin [Mass/Vol] 2.7 g/dL Critically low 3.5-5.0 [facility] Comment on above: Performed By: #### G TT3P #### [facility] [address] [place], [place] [id number] Kaela Judie Albumin/Globulin [Mass ratio] 0.9 {ratio} Normal [facility] Comment on above: Performed By: #### G TT3P #### [facility] [address] [place], [place] [id number] Kaela Judie ALP [Catalytic activity/Vol] 134 U/L Critically high 38-126 [facility] Comment on above: Performed By: #### G TT3P #### [facility] [address] [place], [place] [id number] Kaela Judie ALT [Catalytic activity/Vol] 21 U/L Normal 9-52 [facility] Comment on above: Performed By: #### G TT3P #### [facility] [address] [place], [place] [id number] Kaela Judie Anion gap [Moles/Vol] 11.6 mmol/L Normal [facility] Comment on above: Performed By: #### G TT3P #### [facility] [address] [place] [id number] Kaela Judie AST [Catalytic activity/Vol] 17 U/L Normal 14-36 [facility] Comment on above: Performed By: #### G TT3P #### [facility] [address] [place] [id number] Kaela Judie Bilirubin [Mass/Vol] 0.2 mg/dL Normal 0.2-1.3 [facility] Comment on above: Performed By: #### G TT3P #### [facility] [address] [place] [address] Kaela Judie Calcium [Mass/Vol] 9.1 mg/dL Normal 8.4-10.2 [facility] Comment on above: Performed By: #### G TT3P #### [facility] [address] [place] [address] Kaela Judie Chloride [Moles/Vol] 106 mmol/L Normal 98-107 [facility] Comment on above: Performed By: #### G TT3P #### [facility] [address] [place] [address] Kaela Judie CO2 [Moles/Vol] 25.8 mmol/L Normal 22.0-30.0 [facility] Comment on above: Performed By: #### G TT3P #### [facility] [address] [place] [address] Kaela Judie Creatinine [Mass/Vol] 0.53 mg/dL Normal 0.52-1.04 [facility] Comment on above: Performed By: #### G TT3P #### [facility] [address] [place], [place] [id number] Kaela Judie EGFR-AF KENYAN >60 Normal >=60 [facility] Comment on above: Performed By: #### G TT3P #### [facility] [address] [place], [place] [id number] Kaela Judie EGFR-NON AF KENYAN >60 Normal >=60 [facility] Comment on above: Performed By: #### G TT3P #### [facility] [address] [place], [place] [id number] Kaela Judie Globulin (S) [Mass/Vol] 3.0 g/dL Normal [facility] Comment on above: Performed By: #### G TT3P #### [facility] [address] [place] [address] Kaela Judie Glucose [Mass/Vol] 85 mg/dL Normal 74-106 [facility] Comment on above: Performed By: #### G TT3P #### [facility] [address] [place] [address] Kaela Judie Potassium [Moles/Vol] 3.4 mmol/L Normal 3.4-5.0 [facility] Comment on above: Performed By: #### G TT3P #### [facility] [address] [place] [address] Kaela Judie Protein [Mass/Vol] 5.7 g/dL Critically low 6.1-8.2 [facility] Comment on above: Performed By: #### G TT3P #### [facility] [address] [place] [address] Kaela Judie Sodium [Moles/Vol] 140 mmol/L Normal 137-145 [facility] Comment on above: Performed By: #### G TT3P #### [facility] [address] [place] [address] Kaela Judie Urea nitrogen [Mass/Vol] 10.0 mg/dL Normal 7.0-17.0 [facility] Comment on above: Performed By: #### G TT3P #### [facility] [address] [place], [place] [id number] Kaela Judie Urea nitrogen/Creatinine [Mass ratio] 18.9 mg/mg Normal [facility] Comment on above: Performed By: #### G TT3P #### [facility] [address] [place], [place] [id number] Kaela Judie PTTon 01-13-2021 aPTT Coag (Bld) [Time] 23.6 s Normal 22.3-36.2 Th [facility] Comment on above: Performed By: #### P TT #### [facility] [address] [place], [place] [id number] Kaela Judie URIC ACID SERUMon 01-13-2021 Urate [Mass/Vol] 3.7 mg/dL Normal 2.5-6.2 [facility] Comment on above: Performed By: #### U ELIZABETH, LDH #### [facility] [address] [place] [address] Kaela Judie UA (CLEAN/CATCH) LODE MINER BLASTING/MICRO I F IND.on 01-12-2021 Bilirubin Ql (U) Negative Normal NEGATIVE [facility] Comment on above: Performed By: #### U MICRO, UACSIND #### [facility] [address] [place] [address] Kaela Judie Clarity (U) CLEAR Normal CLEAR [facility] Comment on above: Performed By: #### U MICRO, UACSIND #### [facility] [address] [place] [address] Kaela Judie Color (U) LT. YELLOW Normal YELLOW [facility] Comment on above: Performed By: #### U MICRO, UACSIND #### [facility] [address] [place] [address] Kaela Judie Glucose Ql (U) Negative Normal NEGATIVE [facility] Comment on above: Performed By: #### U MICRO, UACSIND #### [facility] [address] [place] [address] Kaela Judie Hemoglobin Ql (U) Negative Normal NEGATIVE [facility] Comment on above: Performed By: #### U MICRO, UACSIND #### [facility] [address] [place] [address] Kaela Judie Ketones Ql (U) Negative Normal NEGATIVE [facility] Comment on above: Performed By: #### U MICRO, UACSIND #### [facility] [address] [place] [address] Kaela Judie LEUKOCYTES TRACE Abnormal NEGATIVE [facility] Comment on above: Performed By: #### U MICRO, UACSIND #### [facility] [address] [place] [address] Kaela Judie Nitrite Ql (U) Negative Normal NEGATIVE [facility] Comment on above: Performed By: #### U MICRO, UACSIND #### [facility] [address] [place] [address] Kaela Dimas pH (U) 6.0 [pH] Normal 5-9 [facility] Comment on above: Performed By: #### U MICRO, UACSIND #### [facility] [address] [place] [address] Kaela Dimas SPEC GRAVITY 1.025 Normal 1.005-<=1. 025 [facility] Comment on above: Performed By: #### U MICRO, UACSIND #### [facility] [address] [place] [address] Kaela Dimas UA PROTEIN Negative Normal NEGATIVE/ TRACE [facility] Comment on above: Performed By: #### U MICRO, UACSIND #### [facility] [address] [place] [address] Kaela Dimas UR MICRO IND INDICATED Normal [facility] Comment on above: Performed By: #### U MICRO, UACSIND #### [facility] [address] [place] [address] Kaela Dimas Urobilinogen Qn (U) 0.2 {Sylvester'U}/dL Normal 0.2 - 1. 0 [facility] Comment on above: Performed By: #### U MICRO, UACSIND #### [facility] [address] [place] [address] Kaela Dimas URINE MICROSCOPIC ONLYon BACTERIA TRACE Abnormal NONE SEEN [facility] Comment on above: Performed By: #### U MICRO, UACSIND #### [facility] [address] [place] [address] Kaela Dimas Bacteria identified Cx Nom (U) INDICATED Normal [facility] Comment on above: Performed By: #### U MICRO, UACSIND #### [facility] [address] [place] [address] Kaelastephanie Dimas CAST NONE SEEN Normal NONE SEEN [facility] Comment on above: Performed By: #### U MICRO, UACSIND #### [facility] [address] [place] [address] Kaelastephanie Dimas Crystals LM Nom (Urine sed) NONE SEEN Normal NONE SEEN [facility] Comment on above: Performed By: #### U MICRO, UACSIND #### [facility] [address] [place] [address] Kaela Judie Epithelial cells LM Ql (Urine sed) FEW Abnormal NONE SEEN /RARE [facility] Comment on above: Performed By: #### U MICRO, UACSIND #### [facility] [address] [place] [address] Kaela Judie MUCOUS SMALL Abnormal NONE SEEN [facility] Comment on above: Performed By: #### U MICRO, UACSIND #### [facility] [address] [place] [address] Kaela Judie RBC 0-2 Normal 0-2 [facility] Comment on above: Performed By: #### U MICRO, UACSIND #### [facility] [address] [place] [address] Kaela Judie WBC 2-5 Abnormal NONE SEEN [facility] Comment on above: Performed By: #### U MICRO, UACSIND #### [facility] [address] [place], [place] [id number] Kaela Judie US PREG BIOPHY W NON [...] IRINEO COMBS Date: 2021-01-09 07:18 Normal [facility] US PREG GROWTHon 12-31-2020 US PREG GROWTH [...] cm; 32 weeks 2 days; % EFW: [id number], 39% FL/AC: [id number] FL/BPD: [id number] HC/AC: 1.892382 GESTATIONAL AGE: Age by EDC: 32 weeks 1 day SUSANNA by EDC: 02/24/2021 Age by US: 32 weeks 0 days SUSANNA by US: 02/25/2021 IMPRESSION: Normal interval growth Electronically authenticated by: IRINEO COMBS Date: 2020-12-31 09:38 Normal [facility] GTT 3 HR PREGon 12-12-2020 Glucose [Mass/Vol] 86 mg/dL Normal 74-106 [facility] Comment on above: Performed By: #### G TT3P #### [facility] [address] [place] [address] Kaela Judie Glucose [Mass/Vol] 179 mg/dL Normal [facility] Comment on above: Performed By: #### G TT3P #### [facility] [address] [place] [address] Kaela Judie Glucose [Mass/Vol] 131 mg/dL Normal [facility] Comment on above: Performed By: #### G TT3P #### [facility] [address] [place] [address] Kaela Judie Glucose [Mass/Vol] 145 mg/dL Normal [facility] Comment on above: Performed By: #### G TT3P #### [facility] [address] [place] [address] Kaela Judie GLUCOSE - 1HRon 12-05-2020 Glucose [Mass/Vol] 151 mg/dL Critically high 74-106 [facility] Comment on above: Result Comment: sherri ent was approximately 5 minutes late for draw Performed By: #### G LU1HR #### [facility] [address] [place] [address] Kaela Dimas HEMOGRAM AND PLATELon 2020 Hematocrit (Bld) [Volume fraction] 38.4 % Normal 36.0-48.0 [facility] Comment on above: Performed By: #### G TT3P #### [facility] [address] [place] [address] Kaela Judie Hemoglobin (Bld) [Mass/Vol] 13.2 g/dL Normal 12.0-16.0 [facility] [place] Comment on above: Performed By: #### G TT3P #### [facility] [address] [place] [address] Kaela Dimas MCH (RBC) [Entitic mass] 30.8 pg Normal 26.7-34.0 [facility] Comment on above: Performed By: #### G TT3P #### [facility] [address] [place] [address] Kaela Dimas MCHC (RBC) [Mass/Vol] 34.4 g/dL Normal 29.9-35.2 [facility] Comment on above: Performed By: #### G TT3P #### [facility] [address] [place] [address] Kaela Dimas MCV (RBC) [Entitic vol] 89.5 fL Normal 81.0-99.0 [facility] Comment on above: Performed By: #### G TT3P #### [facility] [address] [place] [address] Kaelastephanie Sahuen PLT 238 103/ul Normal 150-450 [facility] Comment on above: Performed By: #### G TT3P #### [facility] [address] [place] [address] Kaela Judie RBC 4.29 106/ul Normal 4.20-5.40 [facility] Comment on above: Performed By: #### G TT3P #### [facility] [address] [place] [address] Kaela Judie WBC 17.0 103/ul Critically high 4.0-11.0 [facility] Comment on above: Performed By: #### G TT3P #### [facility] [address] [place] [address] Kaela Dimas PREG GROWTHon 12-03-2020 US PREG GROWTH EXAMINATION: [...] cm; 28 weeks 0 days; % EFW: 2.544064, 2 lbs. 10 oz., 40% FL/AC: 0.173736 FL/BPD: 0.370961 HC/AC: 1.088141 GESTATIONAL AGE: Age by EDC: 28 weeks 1 day SUSANNA by EDC: 02/24/2021 Age by US: 20 weeks 2 days SUSANNA by US: 02/23/2021 IMPRESSION: Normal interval growth Electronically authenticated by: IRINEO COMBS Date: 2020-12-03 10:04 Normal [facility] Vital Signs Date Time Vital Sign Value Performing Clinician Facility 06-15-2024 15:34-0500 Body mass index (BMI) [Ratio] 40.6 kg/m2 Madisyn KERNS Work Phone: [facility] 06-15-2024 15:34-0500 Body weight 103.96 kg Madisyn KERNS Work Phone: [facility] 06-15-2024 15:34-0500 Diastolic blood pressure 76 mm[Hg] Madisyn KERNS Work Phone: [facility] 06-15-2024 15:34-0500 Systolic blood pressure 122 mm[Hg] Madisyn KERNS Work Phone: [facility] 05-18-2024 12:07-0400 Body mass index (BMI) [Ratio] 39.5 kg/m2 Scotty Jacquie DO Work Phone: [facility] 05-18-2024 12:07-0400 Body weight 101.15 kg Scotty Jacquie DO Work Phone: [facility] 05-18-2024 12:07-0400 Diastolic blood pressure 78 mm[Hg] Scotty Jacquie DO Work Phone: [facility] 05-18-2024 12:07-0400 Systolic blood pressure 124 mm[Hg] Scotty Jacquie DO Work Phone: [facility] 01-31-2024 18:14-0400 Diastolic blood pressure 74 mm[Hg] MD Jacques Mccarthy Work Phone: [facility] 01-31-2024 18:14-0400 Heart rate 100 /min MD Jacques Mccarthy Work Phone: [facility] 01-31-2024 18:14-0400 Respiratory rate 18 /min MD Jacques Mccarthy Work Phone: [facility] 01-31-2024 18:14-0400 SaO2% (BldA) [Mass fraction] 100 % MD Jacques Mccarthy Work Phone: [facility] 01-31-2024 18:14-0400 Systolic blood pressure 156 mm[Hg] MD Jacques Mccarthy Work Phone: [facility] 01-31-2024 14:04-0400 Body height 160.02 cm MD Jacques Mccarthy Work Phone: [facility] 01-31-2024 14:04-0400 Body temperature 97.4 [degF] MD Jacques Mccarthy Work Phone: [facility] 01-31-2024 14:04-0400 Body weight 98.5 kg MD Jacques Mccarthy Work Phone: [facility] Encounters Encounter Date Encounter Type Care Provider Facility Start: 06-21-2024 End: 06-21-2024 Chart abstracting Aniceto Esteban MD Work Phone: [facility] Start: 06-15-2024 End: 06-15-2024 flow sheet Madisyn KERNS Work Phone: [facility] Comment on above: Second trimester pre gnancy; 24 weeks gestation of ; Diabetes mellitus screening; Elevated blood pressure affecting in first trimester, antepartum; High blood pressure affecting in first trimester, antepartum; Heartburn during in second trimester Start: 06-15-2024 End: 06-15-2024 ambulatory MADISYN GAONA Not Available Start: 06-15-2024 End: 06-15-2024 Bamboo flowsheet Madisyn KERNS Work Phone: [facility] Start: 06-15-2024 End: 06-15-2024 Bamboo flowsheet Madisyn KERNS Work Phone: [facility] Start: 05-18-2024 End: 05-18-2024 Bamboo flowsheet Scotty Jacquie DO Work Phone: [facility] Start: 05-18-2024 End: 05-18-2024 Bamboo flowsheet Scotty Jacquie DO Work Phone: [facility] Start: 05-18-2024 End: 05-18-2024 ambulatory SCOTTY JACQUIE Not Available Start: 05-18-2024 End: 05-18-2024 flow sheet Scotty Jacquie DO Work Phone: [facility] Comment on above: 20 weeks gestation o f ; Second trimester Start: 04-20-2024 End: 04-20-2024 ambulatory MADISYN JIMENEZ Not Available Start: 03-22-2024 End: 03-22-2024 ambulatory SCOTTY JACQUIE Not Available Start: 02-24-2024 End: 02-24-2024 ambulatory SCOTTY JACQUIE Not Available Start: 02-22-2024 End: 02-22-2024 ambulatory MADISYN JIMENEZ Not Available Start: 02-11-2024 End: 02-11-2024 ambulatory SCOTTY JACQUIE Not Available Start: 02-08-2024 End: 02-08-2024 ambulatory SCOTTY JACQUIE Not Available Start: 01-31-2024 End: 01-31-2024 Emergency department patient visit MD Jacques Mccarthy Work Phone: [facility] Work Phone: Start: 10-08-2021 End: 10-08-[address] SCOTTY DHILLON Facility:[facility]1 Start: 02-19-[address] SCOTTY DHILLON Facility :[facility] Start: 02-11-2021 End: 02-11-[address] SCOTTY DHILLON Facility:[facility] Start: 02-06-2021 Evaluation and management of inpatient DR SCOTTY DHILLON Facility:[facility] Start: 02-05-2021 End: 02-09-2021 Evaluation and management of inpatient DR SCOTTY DHILLON Facility:[facility] Start: 01-30-2021 End: 01-30-[address] SCOTTY DHILLON Facility:[facility] Start: 01-29-2021 End: 01-29-[address] SCOTTY DHILLON Facility:[facility] Start: 01-22-2021 End: 01-22-[address] SCOTTY DHILLON Facility:[facility] Start: 01-15-2021 End: 01-15-[address] SCOTTY DHILLON Facility:[facility] Start: 01-14-2021 End: 01-14-[address] SCOTTY DHILLON Facility:[facility] Start: 01-13-2021 End: 01-13-[address] SCOTTY DHILLON Facility:[facility] Start: 01-08-2021 End: 01-08-[address] JACQUES MCCARTHY Facility:[facility] Start: 12-31-2020 End: 01-01-[address] IRINEO COMBS Facility:[facility] Start: 12-19-2020 End: 12-20-[address] JACQUES MCCARTHY Facility:[facility] Start: 12-12-2020 End: 12-13-[address] SCOTTY DHILLON Facility:[facility] Start: 12-05-2020 End: 12-06-[address] SCOTTY DHILLON Facility:[facility] Start: 12-03-2020 End: 12-04-[address] SCOTTY DHILLON Facility:[facility] Start: 11-01-[address] SCOTTY DHILLON Facility :[facility]1 Procedures Date Procedure Procedure Detail Performing Clinician Start: 06-15-2024 Urnls dip stick/tabl et rgnt non-auto w/o micrscp Madisyn KERNS Work Phone: Start: 05-18-2024 Urnls dip stick/tabl et rgnt non-auto w/o micrscp Scotty Dhillon DO Work Phone: Start: 02-06-2021 Extraction of Produc ts of Conception, Low Cervical, Open Approach DR SCOTTY DHILLON Start: 02-05-2021 Introduction of Othe r Hormone into Peripheral Vein, Percutaneous Approach DR SCOTTY DHILLON Plan of Treatment Date Care Activity Detail Author Start: 07-17-2024 End: 07-17-2024 Patient encounter procedure 07/17/2024 3:20 PM EST Routine [facility] [address] [place] [id number] Scotty Dhillon, [address] [place] [address] [facility] Start: 07-17-2024 End: 07-17-2024 Professional / ancillary services management 07/17/2024 3:00 PM EST Ancillary Procedure [facility] [address] [place] [id number] [facility] Start: 07-14-2024 End: 07-14-2024 Patient encounter procedure [facility] Start: 06-15-2024 End: 06-15-2024 Patient encounter procedure 06/15/2024 3:30 PM EST Routine [facility] [address] [place] [phone] Madisyn Gaona PA [address] [place], [place] [id number] [facility] Start: 06-15-2024 End: 06-15-2025 CBC panel - Blood by Automated count CBC Lab Routine Diabetes mellitus screening Expected: 06/15/2024 (Approximate), Expires: 06/15/2025 [facility] Work Phone: Comment on above: Expected: 06/15/2024 (Approximate), Expires: 06/15/2025 Start: 06-15-2024 End: 06-15-2025 Measurement of glucose 1 hour after glucose challenge for glucose tolerance test Glucose tolerance, 1 hour Lab Routine Diabetes mellitus screening Expected: 06/15/2024 (Approximate), Expires: 06/15/2025 [facility] Comment on above: Expected: 06/15/2024 (Approximate), Expires: 06/15/2025 Start: 04-02-2024 Influenza vaccination Influenza Vacc ine [facility] Start: 2018 Screening for malign ant neoplasm of cervix Pap Smear [facility] Start: 2016 DTaP,Tdap and Td Vaccines (1 - Tdap) DTaP,Tdap and Td Vaccines (1 - Tdap) [facility] Start: 2015 Adult BMI Screening Adult BMI Screen ing [facility] Start: 2009 Depression Screening Depression Scre ening [facility] Start: 2009 Tobacco Screening Tobacco Screening [facility] Patient Education - Th e Second Month High Blood Pressure ED [facility] Work Phone: Patient referral [facility] Work Phone: Payers Date Payer Category Payer Private Health Insurance [id number] 2024 Private Health Insurance [id number] 2024 Self-pay 2022 Medicaid [facility] [id number] 1997 Unknown [id number] 2.16.840.1.764128.3.579.2. 593 1997 Unknown [id number] 2.16.840.1.629050.3.579.2. 593 1997 Unknown [id number] 2.16.840.1.981515.3.579.2. 593 1997 Unknown [id number] 2.16.840.1.053097.3.579.2. 593 1997 Unknown [id number] 2.16.840.1.340853.3.579.2. 593 1997 Unknown [id number] 2.16.840.1.259030.3.579.2. 593 1997 Unknown [id number] 2.16.840.1.504125.3.579.2. 593 1997 Unknown [id number] 2.16.840.1.001616.3.579.2. 593 1997 Unknown [id number] 2.16.840.1.403970.3.579.2. 593 1997 Unknown [id number] 2.16.840.1.676919.3.579.2. 593 1997 Unknown [id number] 2.16.840.1.206785.3.579.2. 593 1997 Unknown [id number] 2.16.840.1.964706.3.579.2. 593 1997 Unknown [id number] 2.16.840.1.153693.3.579.2. 593 1997 Unknown [id number] 2.16.840.1.266119.3.579.2. 593 1997 Unknown [id number] 2.16.840.1.059589.3.579.2. 593 1997 Unknown [id number] 2.16.840.1.821265.3.579.2. 593 1997 Unknown [id number] 2.16.840.1.606118.3.579.2. 593 1997 Unknown [id number] 2.16.840.1.220544.3.579.2. 593 1997 Unknown [id number] 2.16.840.1.233551.3.579.2. 1259 1997 Unknown [id number] 2.16.840.1.216532.3.579.2. 9 1997 Unknown [id number] 2.16.840.1.408853.3.579.2. 9 1997 Unknown [id number] 2.16.840.1.319525.3.579.2. 9 1997 Unknown [id number] 2.16.840.1.491663.3.579.2. 9 1997 Unknown [id number] 2.16.840.1.852168.3.579.2. 9 1997 Unknown [id number] 2.16.840.1.038979.3.579.2. 9 1997 Unknown [id number] 2.16840.1.553742.3.579.2. 1259 1959 Unknown [id number] 1959 Unknown [id number] 1959 Unknown [id number] Unknown [id number] 2.16.840.1.852291.3.579.2. 531 Social History Date Type Detail Facility Start: 01-13-2024 [facility] Start: 01-31-2024 Tobacco smoking stat [facility] Never smoked tobacco (finding) [facility] Start: 1997 Sex Assigned At Female [facility] smoking consumption unknown [facility] Start: 1997 Sex assigned at Not on file [facility] Start: 08-23-2020 End: 06-21-2024 Gender identity Not on file [facility] Start: 10-07-2020 Tobacco [facility] History of tobacco use Current smoker [facility] Start: 10-07-2020 Tobacco use and exposure Smokeless tobacco non-user [facility] Start: 06-21-2024 Alcoholic beverage intake Ex-drinker (finding) [facility] Start: 08-23-2020 End: 06-21-2024 History of Social function [facility] Childcare Unknown [facility] Start: 10-07-2020 Tobacco Comment quit 3 years ago [facility] Start: 08-23-2020 Sex Female (finding) [facility] History of Present illness Narrative 06-15-2024 LUIS F Tarango - 06/15/2024 3:30 PM EST Note Date & Type Note Facility 06-15-2024 History of Presen t illness Narrative Reason for Appointment: Patient ID: Samantha Taylor is a 29 y.o. female who presents for Routine Visit Patient presents today for Return OB appointment. MEDICATIONS Current Outpatient Medications Medication Instructions citalopram (CELEXA) 20 mg, Oral, Every morning labetalol (NORMODYNE) 200 mg, Oral, 3 times daily omeprazole (PRILOSEC) 20 mg, Oral, Daily before breakfast, Do not crush or chew. ALLERGIES No Known Allergies PROBLEMS Active Ambulatory Problems Diagnosis Date Noted No Active Ambulatory Problems Resolved Ambulatory Problems Diagnosis Date Noted No Resolved Ambulatory Problems No Additional Past Medical History HISTORY PAST MEDICAL HISTORY SOCIAL HISTORY History reviewed. No pertinent past medical history. Social History Tobacco Use Smoking status: Not on file Smokeless tobacco: Not on file Substance Use Topics Alcohol use: Not on file Drug use: Not on file FAMILY HISTORY Family History Problem Relation Name Age of Onset Sleep apnea Father SURGICAL HISTORY Past Surgical History: Procedure Laterality Date SECTION, LOW TRANSVERSE REVIEW OF SYSTEMS Review of Systems: Review of Systems Constitutional: Negative. HENT: Negative. Eyes: Negative. Respiratory: Negative. Cardiovascular: Negative. Gastrointestinal: Negative. Genitourinary: Negative. Musculoskeletal: Negative. Skin: Negative. Neurological: Negative. All other systems reviewed and are negative. Hematological: Negative. Endocrine: Negative. Allergic/Immunologic: Negative. OBJECTIVE Objective: Physical Exam Constitutional: Appearance: Normal appearance. She is normal weight. HENT: Head: Normocephalic. Cardiovascular: Rate and Rhythm: Normal rate. Pulses: Normal pulses. Pulmonary: Effort: Pulmonary effort is normal. Breath sounds: Normal breath sounds. Abdominal: Palpations: Abdomen is soft. Musculoskeletal: General: Normal range of motion. Neurological: General: No focal deficit present. Mental Status: She is alert and oriented to person, place, and time. Psychiatric: Mood and Affect: Mood normal. Behavior: Behavior normal. Thought Content: Thought content normal. Judgment: Judgment normal. Vitals and nursing note reviewed. Vitals: Estimated body mass index is 40.6 kg/m as calculated from the following: Height as of 02/22/24: 5' 3 . Weight as of this encounter: 229 lb 3.2 oz. BP: 122/76 Patient's last menstrual period was 12/21/2023. ASSESSMENT & PLAN ICD-10-CM 1. Second trimester Z34.92 POCT urinalysis dipstick manually resulted 2. 24 weeks gestation of Z3A.24 POCT urinalysis dipstick manually resulted 3. Diabetes mellitus screening Z13.1 CBC Glucose tolerance, 1 hour 4. Elevated blood pressure affecting in first trimester, antepartum O16.1 labetalol (Normodyne) 200 MG tablet 5. High blood pressure affecting in first trimester, antepartum O16.1 labetalol (Normodyne) 200 MG tablet 6. Heartburn during in second trimester O26.892 omeprazole (PriLOSEC) [address] capsule R12 Return OB: Patient presents today for a routine obstetrics appointment. Patient is currently 24w0d . Patient states she is doing well but has complaints of being tired due to current . Patient has verbalizes frequent movement. Orders Placed This Encounter Procedures CBC Glucose tolerance, 1 hour POCT urinalysis dipstick manually resulted Follow Up: Patient is to return to office in 4 week for routine OB appointment. Documented by LUIS F Tarango on behalf of: LUIS F Tarango documented in this encounter [facility] History of Present illness Narrative 05-18-2024 Angela AISA Butt - 05/18/2024 11:40 AM EDT Note Date & Type Note Facility 05-18-2024 History of Presen t illness Narrative Reason for Appointment: Patient ID: Samantha Taylor is a 29 y.o. female who presents for Routine Visit Patient presents today for Return OB appointment. MEDICATIONS Current Outpatient Medications Medication Instructions citalopram (CELEXA) 20 mg, Oral, Every morning labetalol (NORMODYNE) 200 mg, Oral, 3 times daily ALLERGIES No Known Allergies PROBLEMS Active Ambulatory Problems Diagnosis Date Noted No Active Ambulatory Problems Resolved Ambulatory Problems Diagnosis Date Noted No Resolved Ambulatory Problems No Additional Past Medical History HISTORY PAST MEDICAL HISTORY SOCIAL HISTORY History reviewed. No pertinent past medical history. Social History Tobacco Use Smoking status: Not on file Smokeless tobacco: Not on file Substance Use Topics Alcohol use: Not on file Drug use: Not on file FAMILY HISTORY Family History Problem Relation Name Age of Onset Sleep apnea Father SURGICAL HISTORY Past Surgical History: Procedure Laterality Date SECTION, LOW TRANSVERSE REVIEW OF SYSTEMS Review of Systems: Review of Systems All other systems reviewed and are negative. OBJECTIVE Objective: Physical Exam Constitutional: Appearance: Normal appearance. She is well-developed. Cardiovascular: Rate and Rhythm: Normal rate and regular rhythm. Pulmonary: Effort: Pulmonary effort is normal. Breath sounds: Normal breath sounds. Abdominal: General: Bowel sounds are normal. There is no distension. Palpations: Abdomen is soft. Tenderness: There is no abdominal tenderness. There is no guarding or rebound. Musculoskeletal: General: No swelling. Normal range of motion. Right lower leg: No edema. Left lower leg: No edema. Neurological: Mental Status: She is alert and oriented to person, place, and time. Skin: General: Skin is warm and dry. Psychiatric: Mood and Affect: Mood normal. Behavior: Behavior normal. Vitals and nursing note reviewed. Exam conducted with a greenhouse superintendent present. Vitals: Estimated body mass index is 39.5 kg/m as calculated from the following: Height as of 02/22/24: 5' 3 . Weight as of this encounter: 223 lb. BP: 124/78 Patient's last menstrual period was 12/21/2023. ASSESSMENT & PLAN ICD-10-CM 1. 20 weeks gestation of Z3A.20 2. Second trimester Z34.92 POCT urinalysis dipstick manually resulted CANCELED: Alpha fetoprotein, maternal CANCELED: Alpha fetoprotein, maternal Patient presents today for a routine obstetrics appointment. Patient is currently 20w0d with a Estimated Date of Delivery: 10/05/24. Patient had anatomy scan done today, so annual appointment will be deferred to next appointment. Patient to return to clinic in 4 weeks for routine OB annual appointment. Patients BP's are doing well at the moment on current regimen. Patient was given printout of MSAFP orders to have drawn at [facility] in [place]. Documented by Angela Butt LPN on behalf of: Scotty Dhillon DO documented in this encounter [facility] Clinical Note 02-05-2021 Note Date & Type Note Facility 02-05-2021 Note OPERATIVE NOTE OPERATION DATE: 02-06-21 ANESTHETIC:Spinal with Duramorph. WORK ORDER SORTING CLERK:ELVIA Prajapati PREOPERATIVE DIAGNOSIS: 1. Intrauterine at 37 [...] and cut. Cord blood was obtained. The infant was handed off to awaiting team. The [...] to the Recovery Room in stable condition. [facility] Signed and Approved by: DR SCOTTY DHILLON . 02/11/2021 11:15:00 [facility] Discharge summary note 02-05-2021 Note Date & [...] Tylenol, any abdominal pain unrelieved with narcotics. [facility] Signed and Approved by: DR SCOTTY DHILLON . 02/25/2021 23:13:00 [facility] Evaluation note Note Date & Type Note Facility Evaluation note No assessment information availa [facility] Work Phone: Evaluation note Note Date & Type Note Facility Evaluation note Diagnosis 20 weeks gestation of Second trimester state, incidental documented in this encounter [facility] Evaluation note Note Date & Type Note Facility Evaluation note Diagnosis Second trimester state, incidental 24 weeks gestation of Diabetes mellitus screening Screening for diabetes mellitus Elevated blood pressure affecting in first trimester, antepartum High blood pressure affecting in first trimester, antepartum Heartburn during in second trimester documented in this encounter [facility] Instructions Note Date & Type Note Facility Instructions Not on filedocumented in this en counter [facility] Summary Purpose Family History No Family History Records FoundNo Family History Records FoundNo Family History Records Found Advance Directives Advance Directive Response Recorded Date/ Time Advance Directives No January 30 3:45pm Chief Complaint and Reason for Visit Chief Complaint 6 wks high blood pressure Additional Source Comments INFORMATION SOURCE (unrecogn ized section and content) DATE CREATED AUTHOR 10/15/[address] [facility] DATE CREATED AUTHOR AUTHOR'S ORGANIZ ATION 02/19/2024 [facility] DATE CREATED AUTHOR AUTHOR'S ORGANIZ ATION 06/18/2024 [facility] EPIC Care Teams (unrecognized sec tion and content) Team Status: Active Member Role Status Dates Jacques Mccarthy MD Primary Care Provider Active Team Status: Inactive Member Role Status Dates Jacques Mccarthy MD Primary Care Provider Active Start: January 31, 2024 End: January 31, 2024 Terry Dudley DO Emergency Provider Active St art: January 31, 2024 End: January 31, 2024 Flooring Mechanic Relationship Specialty Start Date End Date Jacques Mccarthy MD [address] [place] [phone] PCP - General Family Medicine 02/08/24 Flooring Mechanic Relationship Specialty Start Date End Date Jacques Mccarthy MD [address] [place] [address] PCP - General Family Medicine 02/08/24 Flooring Mechanic Relationship Specialty Start Date End Date Jacques Mccarthy MD PCP - General Family Medicine 10/07/20 Flooring Mechanic Relationship Specialty Start Date End Date Jacques Mccarthy MD [address] [place] [address] PCP - General Family Medicine 02/08/24 Flooring Mechanic Relationship Specialty Start Date End Date Jacques Mccarthy MD [address] [place] [address] PCP - General Family Medicine 02/08/24 Goals (unrecognized section and content) Goals may be documented in a n alternate sectionNot on filedocumented as of this encounter Reason for Visit (unrecogniz ed section and content) Reason Comments Routine Visit FOR RECORDS PERTAINING TO PATIENTS WHO ARE [...] BE BASED ON THE PRIMARY CLINICAL RECORDS. [employer] provides no warranty or guarantee of the accuracy or completeness of information in this document.
[2024-07-13 16:55] LABS: Basophils Absolute Auto 0.1 10^3/uL (0.0-0.1); Basophils Percent Auto 0.3 % (0.2-2.0); Eosinophils Absolute Auto 0.1 10^3/uL (0.0-0.7); Eosinophils Percent Auto 0.3 % (0.9-7.0); Hematocrit 37.3 % (36.0-48.0); Hemoglobin 12.7 g/dL (12.0-16.0); Immature Granulocytes Abs Auto 0.32 10^3/uL (0.00-0.03); Immature Granulocytes Pct Auto 1.8 % (0.0-0.5); Lymphocytes Absolute Auto 1.5 10^3/uL (1.2-3.8); Lymphocytes Percent Auto 8.3 % (20.5-60.0); Mean Corpuscular Hemoglobin 30.3 pg (26.7-34.0); Mean Platelet Volume 10.4 fL (9.5-13.5); Monocytes Absolute Auto 0.9 10^3/uL (0.3-0.8); Monocytes Percent Auto 5.2 % (1.7-12.0); Neutrophils Percent Auto 84.1 % (43.0-75.0); Platelet Count 255 10^3/uL (150-450); Red Blood Count 4.19 10^6/uL (4.20-5.40); Red Cell Distribution Width 12.1 % (11.0-15.0); White Blood Count 17.8 10^3/uL (4.0-11.0)
[2024-07-13 17:10] LABS: Glucose 1 Hour 160 mg/dL (<130)
== END 2024-07-13 15:07 | disposition home or self-care (01) ==
LOC: LAB 15:11
PROVIDERS: PCP Family Medicine; Visit Provider Physician Assistant
DX: Z13.1 Encounter for screening for diabetes mellitus (principal)
CPT/HCPCS: 36415; 82950; 85025

== ENCOUNTER 2024-07-17 15:07 | Outpatient (OUT) | payer MEDICAID, SELFPAY ==
--- NOTE | 2024-07-17 15:10 | US_ITS ---
[address] [address] Patient Name: RADAMES BENJAMIN MRN: [id number] date: 1995 Sex: F Assigned Patient Location: [facility] Current Patient Location: [facility] Accession/Order Number: [id number] Exam Date: 07/17/2024 15:11 Report Date: 07/17/2024 15:54 At the request of: SCOTTY SULLIVAN Procedure: US OB incomplete anatomy EXAM: US OB incomplete anatomy HISTORY: Follow-up ultrasound of anatomy Z36.2 COMPARISON: 06/15/2024 TECHNIQUE: Transabdominal images FINDINGS: position: Breech presentation, oblique lie Heart rate: 167 beats minute Normal observed anatomy: RVOT, four-chamber heart Non observed anatomy: LVOT Abnormalities: Incidental hyperechogenic focus in the ventricle US/US OB incomplete anatomy IMPRESSION: The left ventricular outflow track could not be visualized Electronically authenticated by: IRINEO COMBS Date: 07/17/2024 15:54
== END 2024-07-17 15:08 | disposition home or self-care (01) ==
LOC: NOMS 15:07
PROVIDERS: PCP Family Medicine; Visit Provider Obstetrics & Gynecology
DX: Z36.2 Encounter for other antenatal screening follow-up (principal)
CPT/HCPCS: 76815

== ENCOUNTER 2024-08-04 13:56 | Observation (INO) | payer OTHER, MEDICAID, SELFPAY ==
--- OUTSIDE RECORDS SUMMARY | 2024-08-04 14:03 | XMS_ITS | CCD ---
Author Organization [facility] Care Team Providers Care Renal Nurse Name Role Phone JACQUIE, DR FAJARDO Consulting Unavailable JACQUIE, DR FAJARDO Primary Care Unavailable JACQUIE, DR FAJARDO Attending Unavailable JACQUIE, DR FAJARDO Admitting Unavailable JACQUIE, DR FAJARDO Consulting Unavailable PENELOPE BOLANOS Admitting Unavailable LUIS MIGUEL, PENELOPE Attending Unavailable [...] MIGUEL ÁNGEL, DR HANNA Primary Care Unavailable CHOTEAU, DR IRINEO Pompa Consulting Unavailable JACQUIE, DR FAJARDO Attending Unavailable JACQUIE, DR FAJARDO Admitting Unavailable MIGUEL ÁNGEL, DR HANNA Primary Care Unavailable JACQUIE, DR FAJARDO Consulting Unavailable JACQUIE, DR FAJARDO Attending Unavailable JACQUIE, DR FAJARDO Consulting Unavailable MIGUEL ÁNGEL, DR HANNA Primary Care Unavailable JACQUIE, DR FAJARDO Admitting Unavailable JACQUIE, DR FAJARDO Consulting Unavailable LUIS MIGUEL, PENELOPE Admitting Unavailable DAIANAY, DR HANNA Primary Care Unavailable LUIS MIGUEL, PENELOPE Attending Unavailable ZIEBER, DR MICHELLE Matthews Consulting Unavailable LUIS MIGUEL, PENELOPE Consulting Unavailable DAIANAY, DR HANNA Primary Care Unavailable WEST, DR IRINEO [place] Consulting Unavailable JACQUIE, DR FAJARDO Attending Unavailable JACQUIE, DR FAJARDO Admitting Unavailable JACQUIE, DR FAJARDO Consulting Unavailable JACQUIE, DR FAJARDO Consulting Unavailable LUIS MIGUEL, PENELOPE Admitting Unavailable LUIS MIGUEL, PENELOPE Attending Unavailable DAIANAY, DR HANNA Primary Care Unavailable ZIEBER, DR MICHELLE Matthews Consulting Unavailable JACQUIE, DR FAJARDO Attending Unavailable JACQUIE, DR FAJARDO Admitting Unavailable DAIANAY, DR HANNA [facility] Care Unavailable DAIANAY, DR HANNA Primary Care Unavailable JACQUIE, DR FAJARDO Attending Unavailable JACQUIE, DR FAJARDO Admitting Unavailable JACQUIE, DR FAJARDO Attending Unavailable JACQUIE, DR FAJARDO Admitting Unavailable DAIANAY, DR HANNA [facility] Care Unavailable JACQUIE, DR FAJARDO Consulting Unavailable JACQUIE, DR FAJARDO Attending Unavailable HOY, DR HANNA [facility] Care Unavailable JACQUIE, DR FAJARDO Admitting Unavailable JACQUIE, DR FAJARDO Admitting Unavailable WEST, DR IRINEO [place] Consulting Unavailable MIGUEL ÁNGEL, DR HANNA [facility] Care Unavailable JACQUIE, DR FAJARDO Attending Unavailable JACQUIE, DR FAJARDO Consulting Unavailable JACQUIE, DR FAJARDO Attending Unavailable MIGUEL ÁNGEL, DR HANNA [facility] Unavailable JACQUIE, DR FAJARDO Admitting Unavailable MD Jacques Mccarthy Primary Care Provider [phone] DO Terry Dudley Emergency Provider [phone] Terry Dudley Admitting Unavailable Terry Dudley Attending Unavailable Jacques Mccarthy Primary Care Unavailable Jacques Mccarthy MD Primary Care Provider [phone] Jacques Mccarthy MD Primary Care Provider [phone] ANICETO FOX Attending Unavailable SCOTTY DHILLON R Referring Unavailable JACQUES MCCARTHY Primary Care Unavailable SCOTTY DHILLON Attending Unavailable JIMENEZ, MADISYN Attending Unavailable SCOTTY DHILLON Attending Unavailable JIMENEZ, MADISYN Attending Unavailable JACQUIESCOTTY CARR Attending Unavailable JIMENEZ, MADISYN Attending Unavailable JACQUIE, SCOTTY Attending Unavailable JIMENEZ, MADISYN Attending Unavailable Medications Current Medications Medication Drug Class(es) Dates Sig (Normalized) Sig (Original) Blood Glucose Monitoring Suppl (D-Care Glucometer) w/Device kit (5 sources) Start: 07-17-2024 End: 07-17-2025 Blood Glucose Monitoring Suppl (D-Care Glucometer) w/Device kit Indications: Gestational diabetes mellitus (GDM) in third trimester, gestational diabetes method of control unspecified , Gestational diabetes mellitus (GDM), antepartum, gestational diabetes method of control unspecified , Elevated glucose tolerance test 1 kit Daily Use four times daily to check FSBS. In the morning prior to breakfast & 1 hour after each meal for a total of 4times daily. 1 kit 07/17/2024 07/17/2025 Active citalopram 20 mg oral tablet (20 sources) Serotonin Reuptake Inhibitor Start: 10-05-2023 End: 03-14-2028 take 1 tablet by mouth in the morning citalopram (CeleXA) 20 MG tablet Indications: Anxiety, generalized (CMS/HCC) Take 1 tablet (20 mg) by mouth in the morning. 360 tablet 3 04/04/2024 03/14/2028 Active End: 07-14-2024 take 2 tablets by mouth in the morning citalopram (CeleXA) 10 mg tablet Take 2 tablets (20 mg total) by mouth in the morning. 07/14/2024 Discontinued (Reorder) isopropyl alcohol 0.7 ml/ml medicated pad (5 sources) Start: 07-17-2024 Alcohol Swabs (Alcohol Prep Pad) 70 % pads Indications: Gestational diabetes mellitus (GDM) in third trimester, gestational diabetes method of control unspecified , Gestational diabetes mellitus (GDM), antepartum, gestational diabetes method of control unspecified , Elevated glucose tolerance test Apply 1 Pad topically Daily Use four times daily to check FSBS. 150 each 3 07/17/2024 Active labetalol hydrochloride 200 mg oral tablet (20 sources) beta-Adrenergi c All Start: 05-01-2024 End: 09-13-2024 take 1 [...] tablet (200 mg) before bedtime. 270 tablet 06/15/2024 09/13/2024 Active Start: 03-02-2024 End: 04-01-2024 take 1 tablet by mouth in the morning labetalol (Normodyne) 200 MG tablet Indications: Elevated blood pressure affecting in first trimester, antepartum , High blood pressure affecting in first trimester, antepartum Take 1 tablet (200 mg) by mouth in the morning and 1 tablet (200 mg) before bedtime. 60 tablet 6 03/02/2024 Active Start: 01-31-2024 take 100 mg by mouth twice daily Labetalol Active 100 MG PO Twice daily January 31, 2024 12:00am labetaloL (NORMO DYNE) 100 mg tablet Take 2 tablets (200 mg total) by mouth in the morning and 2 tablets (200 mg total) at noon and 2 tablets (200 mg total) in the evening. Active miscellaneous medical supply misc (2 sources) miscellaneous me dical supply misc by miscellaneous route once. Active omeprazole 20 mg delayed release oral capsule (11 sources) Proton Pump Inhibitor Start: End: take 1 capsule by mouth in the morning omeprazole (PriLOSEC) 20 mg capsule Indications: Gestational diabetes mellitus (GDM), antepartum, gestational diabetes method of control unspecified Take 1 capsule (20 mg total) by mouth in the morning. 90 capsule 3 07/14/2024 Active Start: 06-15-2024 End: 06-15-2025 take 1 capsule by mouth once before mealtime omeprazole (PriLOSEC) [address] capsule Indications: Heartburn during in second trimester Take 1 capsule (20 mg) by mouth in the morning. Take before meals. Do not crush or chew.. 30 capsule 06/15/2024 06/15/2025 Active ondansetron 4 mg oral tablet (2 sources) Serotonin-3 Receptor Antagonist take 1 tablet by mouth every eight hours as needed for nausea and vomiting ondansetron (ZOFRAN) 4 mg tablet Take 4 mg by mouth every 8 (eight) hours as needed for nausea or vomiting. Active vits62/FA/om3/dha/epa ( GUMMY ORAL) (2 sources) vits62/FA/om3/dha/epa ( GUMMY ORAL) Take by mouth. Active Problems Active Problems Problem Classification Problem Date Documented Date Episodic/Chronic Anxiety disorders (1 source) Anxiety disorder, unspecified; Translations: [ANXIETY DISORDER UNSPECIFIED] Onset: 01-15-2021 Chronic Diabetes mellitus without complication (6 sources) Other abnormal glucose; Translations: [Abnormal glucose tolerance test] Onset: 12-12-2020 Episodic Diabetes or abnormal glucose tolerance complicating ; childbirth; or the puerperium (14 sources) Gestational diabetes mellitus in childbirth, diet controlled; Translations: [Gestational diabetes mellitus in , diet controlled] Onset: 12-19-2020 Episodic Essential hypertension (4 sources) Hypertensive disorder; Translations: [Essential (primary) hypertension] Onset: 07-14-2024 01-31-2024 Chronic Hypertension complicating ; childbirth and the puerperium (17 sources) Unspecified pre-existing hypertension complicating , third trimester; Translations: [Pre-existing hypertension with pre-eclampsia, complicating childbirth] Onset: 08-26-2020 Chronic Hypertension complicating ; childbirth and the puerperium (5 sources) Unspecified pre-eclampsia, third trimester; Translations: [Gestational [-induced] hypertension without significant proteinuria, first trimester] Onset: 01-14-2021 Episodic Other complications of (2 sources) ultrasound scan abnormal; Translations: [Abnormal ultrasonic finding on screening of mother] Onset: 06-21-2024 06-21-2024 Episodic Other complications of (2 sources) Heartburn; Translations: [Other specified related conditions, second trimester] 06-15-2024 Episodic Other nutritional; endocrine; and metabolic disorders (2 sources) Body mass index 40+ - severely obese; Translations: [Body mass index (BMI) 40.0-44.9, adult] Onset: 06-21-2024 06-21-2024 Chronic Other and delivery including normal (18 sources) Encounter for care and examination of lactating mother; Translations: [Single live ] Onset: 02-11-2021 Episodic Other screening for suspected conditions (not mental disorders or infectious disease) (18 sources) Encounter for screening for malignant neoplasm of cervix; Translations: [Encounter for screening for Streptococcus B] Onset: 12-05-2020 Episodic Residual codes; unclassified (2 sources) Gestation period, 20 weeks; Translations: [20 weeks gestation of ] 05-18-2024 Episodic Residual codes; unclassified (2 sources) Gestation period, 24 weeks; Translations: [24 weeks gestation of ] 06-15-2024 Episodic Residual codes; unclassified (2 sources) Gestation period, 28 weeks; Translations: [28 weeks gestation of ] 07-17-2024 Episodic Residual codes; unclassified (2 sources) Gestation period, 30 weeks; Translations: [30 weeks gestation of ] 07-31-2024 Episodic Unclassified (1 source) CONTACT W/AND (SUSP) EXPOS COVID-19; Translations: [CONTACT W/AND (SUSP) EXPOS COVID-19] Onset: 02-27-2021 Unclassified (1 source) elevated blood glucose levels Onset: 07-14-2024 Past or Other Problems Problem Classification Problem Date Documented Date Episodic/Chronic distress and abnormal forces of labor (1 source) Labor and delivery complicated by stress, unspecified; Translations: [LABOR AND DEL COMP STRESS UNS] Onset: 02-27-2021 Episodic Immunizations and screening for infectious disease (3 sources) Encounter for screening for human papillomavirus (HPV); Translations: [Patient encounter status] Onset: 10-09-2021 04-20-2024 Episodic Other complications of (1 source) Other mental disorders complicating , third trimester; Translations: [OTH MENTAL D/O COMP PREG THIRD TRI] Onset: 01-15-2021 Episodic Other connective tissue disease (3 sources) Other specified soft tissue disorders; Translations: [OTHER SPEC SOFT TISSUE DISORDERS] Onset: 01-13-2021 Episodic Other female genital disorders (2 sources) Vaginal discharge; Translations: [Other specified noninflammatory disorders of vagina] 04-20-2024 Episodic Residual codes; unclassified (1 source) 37 weeks gestation of ; Translations: [37 WEEKS GESTATION OF ] Onset: 02-27-2021 Episodic Residual codes; unclassified (1 source) 36 weeks gestation of ; Translations: [36 WEEKS GESTATION OF ] Onset: 07-02-2021 Episodic Residual codes; unclassified (1 source) 35 [...] [facility] Facility Urinalysis macro (dipstick) panel (U)on 07-31-2024 Bilirubin, UA Negative Negative - 4(70) +++ mg/dL [facility] Blood, UA Positive Negative - 50 Hardeep/mcL [facility] Comment on above: small Clarity, UA Clear [facility] Color, UA Yellow [facility] Glucose, UA Positive Negative - 1999(110) ++++ mg/dL [facility] Comment on above: 250 Interpretation and review of laboratory results Abnormal [facility] Ketones, UA Negative Negative - 160(16) ++++ mg/dL [facility] Leukocytes, UA Negative Negative - 500+++ Renee/mcL [facility] Nitrite, UA Negative Negative - Positive [facility] pH, UA 6 5 - 9 [facility] Protein, UA Trace Negative - 1999(20) ++++ mg/dL [facility] Spec Grav, UA 1.02 1 - 1.03 [facility] Urobilinogen, UA 0.2 0.2 - 12 mg/dL [facility] Urinalysis macro (dipstick) panel (U)on 07-17-2024 Bilirubin, UA Negative Negative - 4(70) +++ mg/dL [facility] Blood, UA Negative Negative - 50 Hardeep/mcL [facility] Clarity, UA Clear [facility] Color, UA Yellow [facility] Glucose, UA Positive Negative - 1999(110) ++++ mg/dL [facility] Comment on above: 500 Interpretation and review of laboratory results Abnormal [facility] Ketones, UA Positive Negative - 160(16) ++++ mg/dL [facility] Comment on above: TRACE Leukocytes, UA Negative Negative - 500+++ Renee/mcL [facility] Nitrite, UA Negative Negative - Positive [facility] pH, UA 5.5 5 - 9 [facility] Protein, UA Negative Negative - 1999(20) ++++ mg/dL [facility] Spec Grav, UA 1.02 1 - 1.03 [facility] Urobilinogen, UA 0.2 0.2 - 12 mg/dL [facility] Glucose random or fasting- P OCTon 07-14-2024 External Glucose Fasting Or Random (Fbs) 169 [facility] ALL CBC WITH AUTO DIFFon BASOPHILS ABSOLUTE AUTO 0.1 [facility] Basophils/100 WBC (Bld) 0.3 % 0.2 - 2.0 % [facility] Eosinophils/100 WBC (Bld) 0.3 % Low 0.9 - 7.0 % [facility] Erythrocyte distribution width (RBC) [Ratio] 12.1 % 11.0 - 15.0 % [facility] Hematocrit (Bld) [Volume fraction] 37.3 % 36.0 - 48.0 % [facility] Hemoglobin (Bld) [Mass/Vol] 12.7 g/dL 12.0 - 16.0 g/dL [facility] IMMATURE GRANULOCYTES ABS AUTO 0.32 High [facility] Immature granulocytes/100 WBC (Bld) 1.8 % High 0.0 - 0.5 % [facility] Interpretation and review of laboratory results Abnormal [facility] LYMPHOCYTES ABSOLUTE AUTO 1.5 [facility] Lymphocytes/100 WBC (Bld) 8.3 % Low 20.5 - 60.0 % [facility] MCH (RBC) [Entitic mass] 30.3 pg 26.7 - 34.0 pg [facility] MCHC (RBC) [Mass/Vol] 34 g/dL 29.9 - 35.2 g/dL [facility] MCV (RBC) [Entitic vol] 89 fL 81.0 - 99.0 fL [facility] MONOCYTES ABSOLUTE AUTO 0.9 High [facility] Monocytes/100 WBC (Bld) 5.2 % 1.7 - 12.0 % [facility] NEUTROPHILS ABSOLUTE AUTO 15 High [facility] Neutrophils/100 WBC (Bld) 84.1 % High 43.0 - 75.0 % [facility] Platelet mean volume (Bld) [Entitic vol] 10.4 fL 9.5 - 13.5 fL [facility] TBH EO # 0.1 [facility] TB PLT [address] [facility] RBC 4.[address] [facility] WBC 17.8 High [facility] Urinalysis macro (dipstick) panel (U)on 06-15-2024 Bilirubin, UA Negative Negative - 4(70) +++ mg/dL [facility] Blood, UA Negative Negative - 50 Hardeep/mcL [facility] Clarity, UA Clear [facility] Color, UA Yellow [facility] Glucose, UA Positive Negative - 1999(110) ++++ mg/dL [facility] Interpretation and review of laboratory results Abnormal [facility] Ketones, UA Negative Negative - 160(16) ++++ mg/dL [facility] Leukocytes, UA Positive Negative - 500+++ Renee/mcL [facility] Nitrite, UA Negative Negative - Positive [facility] pH, UA 5.5 5 - 9 [facility] Protein, UA Negative Negative - 1999(20) ++++ mg/dL [facility] Spec Grav, UA 1.02 1 - 1.03 [facility] Urobilinogen, UA 1.0 0.2 - 12 mg/dL [facility] Urinalysis macro (dipstick) panel (U)on 05-18-2024 Bilirubin, UA Negative Negative - 4(70) +++ mg/dL [facility] Blood, UA Negative Negative - 50 Hardeep/mcL [facility] Clarity, UA Clear [facility] Color, UA Yellow [facility] Glucose, UA Negative Negative - 1999(110) ++++ mg/dL [facility] Interpretation and review of laboratory results Normal [facility] Ketones, UA Negative Negative - 160(16) ++++ mg/dL [facility] Leukocytes, UA Negative Negative - 500+++ Renee/mcL [facility] Nitrite, UA Negative Negative - Positive [facility] pH, UA 7 5 - 9 [facility] Protein, UA Negative Negative - 1999(20) ++++ mg/dL [facility] Spec Grav, UA 1.025 1 - 1.03 [facility] Urobilinogen, UA 0.2 0.2 - 12 mg/dL [facility] Urinalysis macro (dipstick) panel (U)on 04-20-2024 Bilirubin, UA Positive Negative - 4(70) +++ mg/dL [facility] Comment on above: small Blood, UA Negative Negative - 50 Hardeep/mcL [facility] Clarity, UA Clear [facility] Color, UA Yellow [facility] Glucose, UA Negative Negative - 2000(110) ++++ mg/dL [facility] Interpretation and review of laboratory results Abnormal [facility] Ketones, UA Positive Negative - 160(16) ++++ mg/dL [facility] Comment on above: trace Leukocytes, UA Negative Negative - 500+++ Renee/mcL [facility] Nitrite, UA Negative Negative - Positive [facility] pH, UA 6.5 5 - 9 [facility] Protein, UA Trace Negative - 1999(20) ++++ mg/dL [facility] Spec Grav, UA 1.030 1 - 1.03 [facility] Urobilinogen, UA 1.0 0.2 - 12 mg/dL [facility] Activated partial thrombopla stin time (aPTT) in platelet poor plasma by coagulation aOrdered By: Terry Dudley on 01-31-2024 aPTT Coag (PPP) [Time] 26.1 s 25.1-36.5 [facility] Comment on above: A hematocrit value g reater than 55% may lead to inaccurate results in coagulation testing. Patients having hematocrit values >55% require a special collection tube for coagulation studies. Please contact the laboratory at [phone] for redraw instructions. Alanine aminotransferase [En zymatic activity/volume] in Serum or PlasmaOrdered By: Terry Dudley on 01-31-2024 ALT [Catalytic activity/Vol] 22 U/L Normal 7-52 [facility] Comment on above: Performed By: #### H S TROP, PTT, CMP, DDIMER, BNP, CK, PT, CBC #### [facility] [address] Albumin [Mass/volume] in Ser um or Plasma by Bromocresol green (BCG) dye binding methoOrdered By: Terry Dudley on 01-31-2024 Albumin BCG dye [Mass/Vol] 4.7 g/dL 3.5-5.7 [facility] Alkaline phosphatase [Enzyma tic activity/volume] in Serum or PlasmaOrdered By: Terry Dudley on 01-31-2024 ALP [Catalytic activity/Vol] 67 U/L Normal 34-104 [facility] Comment on above: Performed By: #### H S TROP, PTT, CMP, DDIMER, BNP, CK, PT, CBC #### [address] Aspartate aminotransferase [ Enzymatic activity/volume] in Serum or PlasmaOrdered By: Terry Dudley on 01-31-2024 AST [Catalytic activity/Vol] 17 U/L Normal 13-39 [facility] Comment on above: Performed By: #### H S TROP, PTT, CMP, DDIMER, BNP, CK, PT, CBC #### [address] Automated basophil %Ordered By: Terry Dudley on 01-31-2024 Basophils/100 WBC (Bld) 0.6 % Normal . [facility] Comment on above: Performed By: #### H S TROP, PTT, CMP, DDIMER, BNP, CK, PT, CBC #### [address] Automated basophil countOrde red By: Terry Dudley on 01-31-2024 Basophils (Bld) [#/Vol] 0.1 10*3/uL Normal 0.0-0.2 [facility] Comment on above: Result Comment: PERF ORMED BY: [place] [address] PATHOLOGIST CALCULATION REVIEWER CARLOS HITCHCOCK M.D. Performed By: #### H S TROP, PTT, CMP, DDIMER, BNP, CK, PT, CBC #### [address] Automated blood monocyte cou ntOrdered By: Terry Dudley on 01-31-2024 Monocytes (Bld) [#/Vol] 1.3 10*3/uL High 0.0-0.8 [facility] Comment on above: Performed By: #### H S TROP, PTT, CMP, DDIMER, BNP, CK, PT, CBC #### [address] Automated eosinophil %Ordere d By: Terry Dudley on 07-01-2024 Eosinophils/100 WBC (Bld) 0.3 % Normal . [facility] Comment on above: Performed By: #### H S TROP, PTT, CMP, DDIMER, BNP, CK, PT, CBC #### [address] Automated eosinophil countOr dered By: Terry Dudley on 01-31-2024 Eosinophils (Bld) [#/Vol] 0.1 10*3/uL Normal 0.0-0.45 [facility] Comment on above: Performed By: #### H S TROP, PTT, CMP, DDIMER, BNP, CK, PT, CBC #### [address] Automated monocyte %Ordered By: Terry Dudley on 01-31-2024 Monocytes/100 WBC (Bld) 7.5 % Normal . [facility] Comment on above: Performed By: #### H S TROP, PTT, CMP, DDIMER, BNP, CK, PT, CBC #### [address] Automated neutrophil %Ordere d By: Terry Dudley on 01-31-2024 Neutrophils/100 WBC (Bld) 79.8 % Normal . [facility] Comment on above: Performed By: #### H S TROP, PTT, CMP, DDIMER, BNP, CK, PT, CBC #### [address] BNP ser/plasOrdered By: Delgado Dudley on 01-31-2024 Natriuretic peptide B (Bld) [Mass/Vol] 30.0 pg/mL Normal 5-100 [facility] Comment on above: Result Comment: PERF ORMED BY: [place] [address] PATHOLOGIST CALCULATION REVIEWER CARLOS HITCHCOCK M.D. Performed By: #### H S TROP, PTT, CMP, DDIMER, BNP, CK, PT, CBC #### [address] Bilirubin Test strip Ql (U)O rdered By: Terry Dudley on 01-31-2024 Bilirubin Ql (U) Negative Negative [facility] Bilirubin.total [Mass/volume ] in Serum or PlasmaOrdered By: Terry Luis Enrique on 01-31-2024 Bilirubin [Mass/Vol] 0.5 mg/dL Normal 0.3-1.0 [facility] Comment on above: Performed By: #### H S TROP, PTT, CMP, DDIMER, BNP, CK, PT, CBC #### [facility] [address] [place] [address] [place] Calcium [Mass/volume] in Ser um or PlasmaOrdered By: Terry Dudley on 01-31-2024 Calcium [Mass/Vol] 9.6 mg/dL Normal 8.6-10.3 [facility] Comment on above: Performed By: #### H S TROP, PTT, CMP, DDIMER, BNP, CK, PT, CBC #### [place] [address] [place] Carbon dioxide, total [Moles /volume] in Serum or PlasmaOrdered By: Terry Dudley on 01-31-2024 CO2 [Moles/Vol] 30.1 mmol/L Normal 21.0-31.0 [facility] Comment on above: Performed By: #### H S TROP, PTT, CMP, DDIMER, BNP, CK, PT, CBC #### [place] [address] [place] Chloride [Moles/volume] in S marty or PlasmaOrdered By: Terry Dudley on 01-31-2024 Chloride [Moles/Vol] 101 mmol/L Normal 98-107 [facility] Comment on above: Performed By: #### H S TROP, PTT, CMP, DDIMER, BNP, CK, PT, CBC #### [facility] [address] [place] [address] [place] Color of Urine by AutoOrdere d By: Terry Dudley on 01-31-2024 Color (U) Colorless Normal Yellow [facility] Comment on above: Order Comment: Name Collection Type:: Clean-Voided Midstream Performed By: #### U A, UHCG #### [address] Complete Blood Count Auto Di ffon 01-31-2024 Mean Corpuscular HGB Conc 34.6 g/dL Normal 32.0-35.0 [facility] Comment on above: Performed By: #### H S TROP, PTT, CMP, DDIMER, BNP, CK, PT, CBC #### [address] Monocytes/100 WBC (Bld) 14.85 % Normal 0.00-20.00 [facility] Comment on above: Performed By: #### H S TROP, PTT, CMP, DDIMER, BNP, CK, PT, CBC #### [address] NRBC% 0.0 /100{WBC} Normal 0-0.5 [facility] Comment on above: Performed By: #### H S TROP, PTT, CMP, DDIMER, BNP, CK, PT, CBC #### [address] Comprehensive Metabolic Pane urszula 01-31-2024 Albumin [Mass/Vol] 4.7 g/dL Normal 3.5-5.7 [facility] Comment on above: Performed By: #### H S TROP, PTT, CMP, DDIMER, BNP, CK, PT, CBC #### [address] Creatinine Clr Calc Pharmacy 119.17 Normal [facility] Comment on above: Result Comment: PERF ORMED BY: [place] [address] PATHOLOGIST CALCULATION REVIEWER CARLOS HITCHCOCK M.D. Performed By: #### H S TROP, PTT, CMP, DDIMER, BNP, CK, PT, CBC #### [address] GFR/1.73 sq M.predicted MDRD (S/P/Bld) [Vol rate/Area] mL/min/{1.73_m2} Normal [facility] Comment on above: Performed By: #### H S TROP, PTT, CMP, DDIMER, BNP, CK, PT, CBC #### [address] Creatine kinase [Enzymatic a ctivity/volume] in Serum or PlasmaOrdered By: Terry Luis Enrique on 01-31-2024 CK [Catalytic activity/Vol] 76 U/L Normal 30-223 [facility] Comment on above: Performed By: #### H S TROP, PTT, CMP, DDIMER, BNP, CK, PT, CBC #### [address] Creatinine [Mass/volume] in Serum or PlasmaOrdered By: Terry Dudley on 01-31-2024 Creatinine [Mass/Vol] 0.80 mg/dL Normal 0.60-1.[address] [facility] Comment on above: Performed By: #### H S TROP, PTT, CMP, DDIMER, BNP, CK, PT, CBC #### [address] D-Dimer High Sensitivityon 0 01-31-2024 D-Dimer High Sensitivity < 200 Normal 0-243 [facility] Comment on above: Result Comment: [...] coagulation studies. Please contact the laboratory at [phone] for redraw instructions. PERFORMED BY: [place] [address] PATHOLOGIST CALCULATION REVIEWER CARLOS HITCHCOCK M.D. Performed By: #### H S TROP, PTT, CMP, DDIMER, BNP, CK, PT, CBC #### [facility] [address] [id number] [facility] ECG 12 lead ECGon 01-31-2024 ECG 12 lead ECG [facility] [place] [address] [place] [address] Electrocardiograph Report Signed Patient: Samantha Taylor MR#: [id number] : 1995 Acct:[id number] Age/Sex: 28 / F ADM Date: 01/31/24 Loc: ER Room: Type: [facility] ER Attending Dr: Ordering Provider: [...] By Terry Dudley DO 1923 Normal [facility] Erythrocyte distribution wid th [Ratio] by Automated countOrdered By: Terry Dudley on 01-31-2024 Erythrocyte distribution width (RBC) [Ratio] 12.4 % Normal 11.9-15.3 [facility] Comment on above: Performed By: #### H S TROP, PTT, CMP, DDIMER, BNP, CK, PT, CBC #### [facility] [address] [place] [address] Erythrocytes [#/volume] in B lood by Automated countOrdered By: Terry Dudley on 01-31-2024 RBC (Bld) [#/Vol] 4.93 10*6/uL Normal 3.60-5.00 [facility] Comment on above: Performed By: #### H S TROP, PTT, CMP, DDIMER, BNP, CK, PT, CBC #### [facility] [address] Fibrin D-dimer [Presence] in Platelet poor plasma by Latex agglutinationOrdered By: Terry Dudley on 01-31-2024 Fibrin D-dimer LA Ql (PPP) < 200 ng/mL 0-243 [facility] Comment on above: The reference range for [...] coagulation studies. Please contact the laboratory at [phone] for redraw instructions. Glucose [Mass/volume] in Ser um or PlasmaOrdered By: Terry Dudley on 01-31-2024 Glucose [Mass/Vol] 91 mg/dL Normal 70-100 [facility] Comment on above: ADA recommended refe rence rangeRandom Glucose Reference Range is dependent on time and content of last meal. Glucose of more than 200 mg/dL in a nonstressed, ambulatory subject supports the diagnosis of Diabetes Mellitus. Result Comment: Gordon om Glucose Reference Range is dependent on time and content of last meal. Glucose of more than 200 mg/dL in a nonstressed, ambulatory subject supports the diagnosis of Diabetes Mellitus. ADA recommended reference range Performed By: #### H S TROP, PTT, CMP, DDIMER, BNP, CK, PT, CBC #### [facility] [address] [id number] [facility] Glucose [Mass/volume] in Uri ne by Test stripOrdered By: Terry Dudley on 01-31-2024 Glucose Test strip (U) [Mass/Vol] Normal mg/dL Normal [facility] HCG ( test) IA.rapi d Ql (U)Ordered By: Terry Dudley on 01-31-2024 HCG ( test) Ql (U) Positive High [facility] HCG,Urineon 01-31-2024 Beta HCG ( test) Ql (U) Positive [facility] Comment on above: Order Comment: Name Collection Type:: Clean-Voided Midstream Result Comment: PERF ORMED BY: [place] [address] PATHOLOGIST CALCULATION REVIEWER CARLOS HITCHCOCK M.D. Performed By: #### H S TROP, PTT, CMP, DDIMER, BNP, CK, PT, CBC #### [facility] [address] Hematocrit [Volume Fraction] of Blood by Automated countOrdered By: Terry Dudley on 01-31-2024 Hematocrit (Bld) [Volume fraction] 45.1 % Normal 34.0-46.4 [facility] Comment on above: Performed By: #### H S TROP, PTT, CMP, DDIMER, BNP, CK, PT, CBC #### [facility] [address] Hemoglobin Test strip Ql (U) Ordered By: Terry Dudley on 01-31-2024 Hemoglobin Ql (U) Negative Negative [facility] Hemoglobin [Mass/volume] in BloodOrdered By: Terry Dudley on 01-31-2024 Hemoglobin (Bld) [Mass/Vol] 15.6 g/dL High 11.8-15.4 [facility] Comment on above: Performed By: #### H S TROP, PTT, CMP, DDIMER, BNP, CK, PT, CBC #### [facility] [address] [place] [address] [place] INR in Platelet poor plasma by Coagulation assayOrdered By: Terry Dudley on 01-31-2024 INR Coag (PPP) [Relative time] 1.2 {INR} Normal [facility] Comment on above: INR Therapeutic Rang e [...] CMP, DDIMER, BNP, CK, PT, CBC #### [facility] [address] [place] [address] [place] Ketones [Presence] in Urine by Test stripOrdered By: Terry Dudley on 01-31-2024 Ketones Ql (U) Negative Normal Negative [facility] Comment on above: Order Comment: Name Collection Type:: Clean-Voided Midstream Performed By: #### U A, UHCG #### [place] [address] [place] Leukocyte esterase [Presence ] in Urine by Test stripOrdered By: Terry Dudley on 01-31-2024 Leukocyte esterase Test strip Ql (U) Negative Normal Negative [facility] Comment on above: Order Comment: Name Collection Type:: Clean-Voided Midstream Performed By: #### U A, UHCG #### [address] Leukocytes [#/volume] correc edna for nucleated erythrocytes in Blood by Automated counOrdered By: Terry Dudley on 01-31-2024 WBC corrected for nucl RBC Auto (Bld) [#/Vol] 17.5 10*3/uL High 3.8-11.6 [facility] Leukocytes [#/volume] in Blo od by Automated countOrdered By: Terry Dudley on 01-31-2024 WBC (Bld) [#/Vol] 17.5 10*3/uL High 3.8-11.6 [facility] Comment on above: Performed By: #### H S TROP, PTT, CMP, DDIMER, BNP, CK, PT, CBC #### [address] Lymphocytes [#/volume] in Bl ood by Automated countOrdered By: Terry Dudley on 01-31-2024 Lymphocytes (Bld) [#/Vol] 2.1 10*3/uL Normal 1.00-4.8 [facility] Comment on above: Performed By: #### H S TROP, PTT, CMP, DDIMER, BNP, CK, PT, CBC #### [address] Lymphocytes/100 leukocytes i n Blood by Automated countOrdered By: Terry Dudley on 01-31-2024 Lymphocytes/100 WBC (Bld) 11.8 % Normal . [facility] Comment on above: Performed By: #### H S TROP, PTT, CMP, DDIMER, BNP, CK, PT, CBC #### [address] MCH [Entitic mass] by Automa edna countOrdered By: Terry Dudley on 01-31-2024 MCH (RBC) [Entitic mass] 31.7 pg Normal 24.7-34.3 [facility] Comment on above: Performed By: #### H S TROP, PTT, CMP, DDIMER, BNP, CK, PT, CBC #### [address] MCHC Auto (RBC) [Mass/Vol]Or dered By: Terry Dudley on 01-31-2024 MCHC (RBC) [Mass/Vol] 34.6 g/dL 32.0-35.[address] [facility] MCV [Entitic volume] by Auto mated countOrdered By: Terry Dudley on 01-31-2024 MCV (RBC) [Entitic vol] 91.4 fL Normal 80-100 [facility] Comment on above: Performed By: #### H S TROP, PTT, CMP, DDIMER, BNP, CK, PT, CBC #### [place] [address] [place] Monocyte distribution width [Entitic volume] in Blood by AutomatedOrdered By: Terry Dudley on 01-31-2024 Monocyte distribution width Auto (Bld) [Entitic vol] 14.85 % 0.00-20.00 [facility] Neutrophils [#/volume] in Bl ood by Automated countOrdered By: Terry Dudley on 01-31-2024 Neutrophils (Bld) [#/Vol] 14.0 10*3/uL High 1.8-7.7 [facility] Comment on above: Performed By: #### H S TROP, PTT, CMP, DDIMER, BNP, CK, PT, CBC #### [facility] [address] Nitrite Test strip Ql (U)Ord ered By: Terry Dudley on 01-31-2024 Nitrite Ql (U) Negative Negative [facility] No Panel InformationOrdered By: Terry Dudley on 01-31-2024 Estimated GFR (CKD-EPI) > 60.0 mL/Min [facility] Pharmacy Creatinine Clearance (Chem 119.17 [facility] Nucleated erythrocytes [Pres ence] in Blood by Automated countOrdered By: Terry Dudley on 01-31-2024 Nucleated RBC Auto Ql (Bld) 0.0 /100{WBC} 0-0.5 [facility] Partial Thromboplastin Timeo n 01-31-2024 aPTT Coag (Bld) [Time] 26.1 s Normal 25.1-36.5 [facility] Comment on above: Result Comment: A he matocrit value greater than 55% may lead to inaccurate results in coagulation testing. Patients having hematocrit values >55% require a special collection tube for coagulation studies. Please contact the laboratory at [phone] for redraw instructions. Performed By: #### H S TROP, PTT, CMP, DDIMER, BNP, CK, PT, CBC #### [facility] [address] Platelet mean volume [Entiti c volume] in Blood by Automated countOrdered By: Terry Dudley on 01-31-2024 Platelet mean volume (Bld) [Entitic vol] 8.7 fL Normal 6.3-10.7 [facility] Comment on above: Performed By: #### H S TROP, PTT, CMP, DDIMER, BNP, CK, PT, CBC #### [facility] [address] [place] [address] [place] Platelets [#/volume] in Bloo d by Automated countOrdered By: Terry Dudley on 01-31-2024 Platelets (Bld) [#/Vol] 297 10*3/uL Normal 150-450 [facility] Comment on above: Performed By: #### H S TROP, PTT, CMP, DDIMER, BNP, CK, PT, CBC #### [facility] [address] Potassium [Moles/volume] in Serum or PlasmaOrdered By: Terry Dudley on 01-31-2024 Potassium [Moles/Vol] 3.4 mmol/L Low 3.5-5.[address] [facility] Comment on above: Performed By: #### H S TROP, PTT, CMP, DDIMER, BNP, CK, PT, CBC #### [facility] [address] Protein Test strip (U) [Mass /Vol]Ordered By: Terry Dudley on 01-31-2024 Protein (U) [Mass/Vol] Negative Negative [facility] Protein [Mass/volume] in Ser um or PlasmaOrdered By: Terry Dudley on 01-31-2024 Protein [Mass/Vol] 7.7 g/dL Normal 6.4-8.9 [facility] Comment on above: Performed By: #### H S TROP, PTT, CMP, DDIMER, BNP, CK, PT, CBC #### [facility] [address] [id number] [facility] Prothrombin time (PT)Ordered By: Terry Dudley on 01-31-2024 PT Coag (PPP) [Time] 14.0 s High 9.0-12.9 [facility] Comment on above: A hematocrit value g reater than 55% may lead to inaccurate results in coagulation testing. Patients having hematocrit values >55% require a special collection tube for coagulation studies. Please contact the laboratory at [phone] for redraw instructions. Result Comment: A he matocrit value greater than 55% may lead to inaccurate results in coagulation testing. Patients having hematocrit values >55% require a special collection tube for coagulation studies. Please contact the laboratory at [phone] for redraw instructions. Performed By: #### H S TROP, PTT, CMP, DDIMER, BNP, CK, PT, CBC #### [address] Serum globulin measurement b y calculation (mass/volume)Ordered By: Terry Dudley on 01-31-2024 Globulin (S) [Mass/Vol] 3.0 g/dL [facility] Comment on above: Performed By: #### H S TROP, PTT, CMP, DDIMER, BNP, CK, PT, CBC #### [address] Serum or plasma albumin/glob ulin mass ratioOrdered By: Terry Dudley on 01-31-2024 Albumin/Globulin [Mass ratio] 1.6 {ratio} [facility] Comment on above: Performed By: #### H S TROP, PTT, CMP, DDIMER, BNP, CK, PT, CBC #### [address] Serum or plasma anion gap de terminationOrdered By: Terry Dudley on 01-31-2024 Anion gap [Moles/Vol] 8.3 mmol/L Normal 6.0-15.[address] [facility] Comment on above: Performed By: #### H S TROP, PTT, CMP, DDIMER, BNP, CK, PT, CBC #### [address] Sodium [Moles/volume] in Ser um or PlasmaOrdered By: Terry Dudley on 01-31-2024 Sodium [Moles/Vol] 136 mmol/L Normal 136-145 [facility] Comment on above: Performed By: #### H S TROP, PTT, CMP, DDIMER, BNP, CK, PT, CBC #### [address] Specific gravity Test strip (U) [Rel density]Ordered By: Terry Dudley on 01-31-2024 Specific gravity (U) [Rel density] 1.005 1.001-1.03 0 [facility] Troponin I High Sensitivityo n 01-31-2024 Troponin I High Sensitivity 3.5 pg/mL Normal 0.0-15.0 [facility] Comment on above: Result Comment: PERF ORMED BY: [place] [address] PATHOLOGIST CALCULATION REVIEWER CARLOS HITCHCOCK M.D. Performed By: #### H S TROP, PTT, CMP, DDIMER, BNP, CK, PT, CBC #### [facility] [address] [place] [address] Troponin I.cardiac [Mass/vol ume] in Serum or Plasma by Detection limit <= 0.01 ng/Ordered By: Terry Dudley on 01-31-2024 Troponin I.cardiac DL <= 0.01 ng/mL [Mass/Vol] 3.5 pg/mL 0.0-15.0 [facility] Urea nitrogen [Mass/volume] in Serum or PlasmaOrdered By: Terry Dudley on 01-31-2024 Urea nitrogen [Mass/Vol] 10 mg/dL Normal 7-25 [facility] Comment on above: Performed By: #### H S TROP, PTT, CMP, DDIMER, BNP, CK, PT, CBC #### [facility] [address] [place] [address] [place] Urinalysison 01-31-2024 Bilirubin,Urine Negative Normal Negative [facility] Comment on above: Order Comment: Name Collection Type:: Clean-Voided Midstream Performed By: #### U A, UHCG #### [place] [address] [place] Glucose Ql (U) Normal Normal Normal [facility] Comment on above: Order Comment: Name Collection Type:: Clean-Voided Midstream Performed By: #### U A, UHCG #### [place] [address] [place] Nitrite,Urine Negative Normal Negative [facility] Comment on above: Order Comment: Name Collection Type:: Clean-Voided Midstream Performed By: #### U A, UHCG #### [address] Occult Blood,Urine Negative Normal Negative [facility] Comment on above: Order Comment: Name Collection Type:: Clean-Voided Midstream Performed By: #### U A, UHCG #### [address] Protein,Urine Negative Normal Negative [facility] Comment on above: Order Comment: Name Collection Type:: Clean-Voided Midstream Performed By: #### U A, UHCG #### [address] Specificy [place],Urine 1.005 Normal 1.001-1.03 0 [facility] Comment on above: Order Comment: Name Collection Type:: Clean-Voided Midstream Performed By: #### U A, UHCG #### [address] Urobilinogen,Urine Normal Normal Normal [facility] Comment on above: Order Comment: Name Collection Type:: Clean-Voided Midstream Performed By: #### U A, UHCG #### [address] Urine appearanceOrdered By: Terry Dudley on 01-31-2024 Appearance (U) Clear Normal Clear [facility] Comment on above: Order Comment: Name Collection Type:: Clean-Voided Midstream Performed By: #### U A, UHCG #### [address] Urobilinogen Test strip (U) [Mass/Vol]Ordered By: Terry Dudley on 01-31-2024 Urobilinogen (U) [Mass/Vol] Normal mg/dL Normal [facility] pH of Urine by Test stripOrd ered By: Terry Dudley on 01-31-2024 pH (U) 6.5 [pH] Normal 5.0-9.0 [facility] Comment on above: Order Comment: Name Collection Type:: Clean-Voided Midstream Performed By: #### [place], [facility] #### [facility] [address] PAP ACOG PANEL 2: 21 to 29on 10-14-2021 . . Normal [facility] Comment on above: Performed By: #### P TT #### [facility] [address] [place] [address] Kaela Judie Age Gdln ACOG Testing 21-29 Normal [facility] Comment on above: Performed By: #### P TT #### [facility] [address] [address] Kaelastephanie Sahuen DIAGNOSIS: Comment Normal [facility] Comment on above: Result Comment: NEGA TIVE FOR INTRAEPITHELIAL LESION OR MALIGNANCY. CELLULAR CHANGES ASSOCIATED WITH INFLAMMATION ARE PRESENT. Performed By: #### P TT #### [facility] [address] [place] [address] Kaela Dimas Methodology: Comment Normal [facility] Comment on above: Result Comment: This liquid based ThinPrep(R) pap test was screened with the use of an image guided system. Performed By: #### P TT #### [facility] [address] [place] [address] Kaela Dimas Note: Comment [facility] Comment on above: Result Comment: The Pap smear is a screening test designed to aid in the detection of premalignant and malignant conditions of the uterine cervix. It is not a diagnostic procedure and should not be used as the sole means of detecting cervical cancer. Both false-positive and false-negative reports do occur. . Performed By: #### P TT #### [facility] [address] [place] [address] Kaela Dimas Performed by: Comment [facility] Comment on above: Result Comment: Nancy Collins, Certified Lactation Educator (ASCP) Performed By: #### P TT #### [facility] [address] [place] [address] Kaela Dimas Reflex Criteria: Comment [facility] Comment on above: Result Comment: The HPV DNA reflex criteria were not met with this specimen result therefore, no HPV testing was performed. . Performed By: #### P TT #### [facility] [address] [place], [place] [id number] Kaela Judie Specimen adequacy: Comment Normal [facility] Comment on above: Result Comment: Sati sfactory for evaluation. Endocervical and/or squamous metaplastic cells (endocervical component) are present. Performed By: #### P TT #### [facility] [address] [place] [address] Kaela Judie CBC AUTO DIFFon 02-07-2021 BASO # 0.1 103/ul Normal 0.0-0.1 [facility] Comment on above: Performed By: #### C BC #### [facility] [address] [place] [address] Kaela Judie Basophils/100 WBC (Bld) 0.3 % Normal 0.2-2.0 [facility] Comment on above: Performed By: #### C BC #### [facility] [address] [place] [address] Kaela Judie EO # 0.1 103/ul Normal 0.0-0.7 [facility] Comment on above: Performed By: #### C BC #### [facility] [address] [place] [address] Kaela Judie Eosinophils/100 WBC (Bld) 0.5 % Critically low 0.9-7.0 [facility] Comment on above: Performed By: #### C BC #### [facility] [address] [place] [address] Kaela Judie Erythrocyte distribution width (RBC) [Ratio] 12.3 % Normal 11.0-15.0 [facility] Comment on above: Performed By: #### C BC #### [facility] [address] [place], [place] [id number] Kaela Judie Hematocrit (Bld) [Volume fraction] 33.8 % Critically low 36.0-48.0 [facility] Comment on above: Performed By: #### C BC #### [facility] [address] [place] [address] Kaela Judie Hemoglobin (Bld) [Mass/Vol] 11.6 g/dL Critically low 12.0-16.0 [facility] Comment on above: Performed By: #### C BC #### [facility] [address] [place] [address] Kaela Dimas IG # 0.20 10e3/ul Critically high 0.00-0.03 [facility] Comment on above: Performed By: #### C BC #### [facility] [address] [place] [address] Kaealstephanie Dimas IG % 1.2 % Critically high 0.0-0.5 [facility] Comment on above: Performed By: #### C BC #### [facility] [address] [place] [address] Kaela Dimas LYMPH # 1.6 103/ul Normal 1.2-3.8 [facility] Comment on above: Performed By: #### C BC #### [facility] [address] [place] [address] Kaela Dimas Lymphocytes/100 WBC (Bld) 9.2 % Critically low 20.5-60.0 [facility] Comment on above: Performed By: #### C BC #### [facility] [address] [place] [address] Kaela Dimas MANUAL DIFF REQ NO Normal [facility] Comment on above: Performed By: #### C BC #### [facility] [address] [place] [address] Kaela Dimas MCH (RBC) [Entitic mass] 30.8 pg Normal 26.7-34.0 [facility] Comment on above: Performed By: #### C BC #### [facility] [address] [place] [address] Kaelastephanie Dimas MCHC (RBC) [Mass/Vol] 34.3 g/dL Normal 29.9-35.2 [facility] Comment on above: Performed By: #### C BC #### [facility] [address] [place] [address] Kaelastephanie Dimas MCV (RBC) [Entitic vol] 89.7 fL Normal 81.0-99.0 [facility] Comment on above: Performed By: #### C BC #### [facility] [address] [place], [place] [address] Kaela Judie MONO # 0.9 103/ul Critically high 0.3-0.8 [facility] Comment on above: Performed By: #### C BC #### [facility] [address] [id number] Kaela Sahuen Monocytes/100 WBC (Bld) 5.5 % Normal 1.7-12.0 [facility] Comment on above: Performed By: #### C BC #### [facility] [address] [address] Kaela Judie NEUT # 14.1 103/ul Critically high 1.4-6.5 [facility] Comment on above: Performed By: #### C BC #### [facility] [address] [place] [address] Kaela Judie Neutrophils/100 WBC (Bld) 83.3 % Critically high 43.0-75.0 [facility] Comment on above: Performed By: #### C BC #### [facility] [address] [place], [place] [id number] Kaela Sahuen Platelet mean volume (Bld) [Entitic vol] 11.0 fL Normal 9.5-13.5 [facility] Comment on above: Performed By: #### C BC #### [facility] [address] [place], [place] [id number] Kaela Judie PLT 192 103/ul Normal 150-450 [facility] Comment on above: Performed By: #### C BC #### [facility] [facility] [address] [place], [place] [id number] Kaela Judie RBC 3.77 106/ul Critically low 4.20-5.40 [facility] Comment on above: Performed By: #### C BC #### [facility] [address] [place] [address] Kaela Judie WBC 16.9 103/ul Critically high 4.0-11.0 [facility] Comment on above: Performed By: #### C BC #### [facility] [address] [place] [address] Kaela Dimas ASYMPTOMATIC COVID-19 ANTIGE Non 02-05-2021 EUA Statement SEE BELOW Normal [facility] Comment on above: Result Comment: This [...] sooner. Performed By: #### G TT3P #### [facility] [address] [place] [address] Kaela Dimas SARS-CoV-2 (COVID-19) RNA RIGOBERTO+probe Ql (Unsp spec) Negative Normal NEGATIVE [facility] Comment on above: Result Comment: Nega tive results are presumptive. They do not preclude infection and should not be used as the sole basis for treatment decisions. Additional confirmatory testing by a molecular method should be considered. Performed By: #### G TT3P #### [facility] [address] [place] [address] Kaela Dimas CBC AUTO DIFFon 02-05-2021 BASO # 0.1 103/ul Normal 0.0-0.1 [facility] Comment on above: Performed By: #### C BC #### [facility] [address] [place], [place] [id number] Kaela Dimas Basophils/100 WBC (Bld) 0.3 % Normal 0.2-2.0 [facility] Comment on above: Performed By: #### C BC #### [facility] [address] [place] [address] Kaela Dimas EO # 0.1 103/ul Normal 0.0-0.7 [facility] Comment on above: Performed By: #### C BC #### [facility] [address] [id number] Kaela Judie Eosinophils/100 WBC (Bld) 0.3 % Critically low 0.9-7.0 [facility] Comment on above: Performed By: #### C BC #### [facility] [address] [place], [place] [address] Keala Judie Erythrocyte distribution width (RBC) [Ratio] 12.0 % Normal 11.0-15.0 [facility] Comment on above: Performed By: #### C BC #### [facility] [address] [place], [place] [id number] Kaela Judie Hematocrit (Bld) [Volume fraction] 36.9 % Normal 36.0-48.0 [facility] Comment on above: Performed By: #### C BC #### [facility] [address] [place], [place] [id number] Kaela Judie Hemoglobin (Bld) [Mass/Vol] 12.7 g/dL Normal 12.0-16.0 [facility] Comment on above: Performed By: #### C BC #### [facility] [address] [place] [address] Kaela Judie IG # 0.19 10e3/ul Critically high 0.00-0.03 [facility] Comment on above: Performed By: #### C BC #### [facility] [address] [place], [place] [id number] Kaela Judie IG % 1.0 % Critically high 0.0-0.5 [facility] Comment on above: Performed By: #### C BC #### [facility] [address] [place] [address] Kaela Judie LYMPH # 1.4 103/ul Normal 1.2-3.8 [facility] Comment on above: Performed By: #### C BC #### [facility] [address] [place], [place] [address] Kaela Judie Lymphocytes/100 WBC (Bld) 7.6 % Critically low 20.5-60.0 [facility] Comment on above: Performed By: #### C BC #### [facility] [address] [place], [place] [id number] Kaela Dimas MANUAL DIFF REQ NO Normal [facility] Comment on above: Performed By: #### C BC #### [facility] [address] [place] [address] Kaela Dimas MCH (RBC) [Entitic mass] 30.5 pg Normal 26.7-34.0 [facility] Comment on above: Performed By: #### C BC #### [facility] [address] [place] [address] Kaela Dimas MCHC (RBC) [Mass/Vol] 34.4 g/dL Normal 29.9-35.2 [facility] Comment on above: Performed By: #### C BC #### [facility] [address] [place] [address] Kaela Dimas MCV (RBC) [Entitic vol] 88.5 fL Normal 81.0-99.0 [facility] Comment on above: Performed By: #### C BC #### [facility] [address] [place] [address] Kaela Dimas MONO # 1.0 103/ul Critically high 0.3-0.8 [facility] Comment on above: Performed By: #### C BC #### [facility] [address] [place], [place] [id number] Kaela Dimas Monocytes/100 WBC (Bld) 5.5 % Normal 1.7-12.0 [facility] Comment on above: Performed By: #### C BC #### [facility] [address] [place] [address] Kaela Judie NEUT # 15.7 103/ul Critically high 1.4-6.5 [facility] Comment on above: Performed By: #### C BC #### [facility] [address] [place], [place] [id number] Kaela Dimas Neutrophils/100 WBC (Bld) 85.3 % Critically high 43.0-75.0 [facility] Comment on above: Performed By: #### C BC #### [facility] [address] [place] [address] Kaelastephanie Dimas Platelet mean volume (Bld) [Entitic vol] 11.8 fL Normal 9.5-13.5 [facility] Comment on above: Performed By: #### C BC #### [facility] [address] [place] [address] Kaelastephanie Sahuen PLT 226 103/ul Normal 150-450 [facility] Comment on above: Performed By: #### C BC #### [facility] [address] [place] [address] Kaela Judie RBC 4.17 106/ul Critically low 4.20-5.40 [facility] Comment on above: Performed By: #### C BC #### [facility] [address] [place] [address] Kaelastephanie Sahuen WBC 18.5 103/ul Critically high 4.0-11.0 [facility] Comment on above: Performed By: #### C BC #### [facility] [address] [place] [address] Kaela Judie DRUG SCREEN RAPID (URINE)on 02-05-2021 AMP Negative Normal NEGATIVE [facility] Comment on above: Performed By: #### D RUGRPD #### [facility] [address] [place] [address] Kaela Judie BAR Negative Normal NEGATIVE [facility] Comment on above: Performed By: #### D RUGRPD #### [facility] [address] [place] [address] Kaela Judie BUP Negative Normal NEGATIVE [facility] Comment on above: Performed By: #### D RUGRPD #### [facility] [address] [place] [address] Kaela Judie BZO Negative Normal NEGATIVE [facility] Comment on above: Performed By: #### D RUGRPD #### [facility] [address] [place] [address] Kaeal Judie JERRY Negative Normal NEGATIVE [facility] Comment on above: Performed By: #### D RUGRPD #### [facility] [address] [place] [address] Kaela Judie CUT-OFFS SEE BELOW Normal [facility] Comment on above: Result Comment: AMP (Amphetamine): 500ng/mL, BAR (Barbituates): 200 ng/mL, BZO (Benzodiazepines): 150 ng/mL, BUP (Buprenorphine): 10 ng/mL, JERRY (Cocaine): 150 ng/mL, mAMP (Methamphetamine): 500 ng/mL, MTD (Methadone): 200 ng/mL, OPI (Opiates): 100 ng/mL, OXY (Oxycodone): 100 ng/mL, PCP (Phencyclidine): 25 ng/mL, PPX (Propoxyphene): 300 ng/mL, THC (Cannabinoids): 50 ng/mL, TCA (Trycyclic Antidepressants): 300 ng/mL Performed By: #### D RUGRPD #### [facility] [address] [place] [address] Kaela Dimas DRUG CUT HEADER DRUG CLASS TEST SYST EM CUT-OFF CONCENTRATIONS ARE FOLLOWS: Normal [facility] Comment on above: Performed By: #### D RUGRPD #### [facility] [address] [place] [address] Kaela Judie mAMP Negative Normal NEGATIVE [facility] Comment on above: Performed By: #### D RUGRPD #### [facility] [address] [place] [address] Kaela Judie MTD Negative Normal NEGATIVE [facility] Comment on above: Performed By: #### D RUGRPD #### [facility] [address] [place] [address] Kaela Judie OPI Negative Normal NEGATIVE [facility] Comment on above: Performed By: #### D RUGRPD #### [facility] [address] [place] [address] Kaela Judie OXY Negative Normal NEGATIVE [facility] Comment on above: Performed By: #### D RUGRPD #### [facility] [address] [place] [address] Kaela Judie PCP Negative Normal NEGATIVE [facility] Comment on above: Performed By: #### D RUGRPD #### [facility] [address] [place] [address] Kaela Judie PPX Negative Normal NEGATIVE [facility] Comment on above: Performed By: #### D RUGRPD #### [facility] [address] [place] [address] Kaela Dimas TCA Negative Normal NEGATIVE [facility] Comment on above: Performed By: #### D RUGRPD #### [facility] [address] [place] [address] Kaela Dimas THC Negative Normal NEGATIVE [facility] Comment on above: Performed By: #### D RUGRPD #### [facility] [address] [place] [address] Kaela Sahuen TYPE AND SCREENon 02-05-2021 TYPE AND SCREEN Negative Normal [facility] Comment on above: Performed By: #### P TT #### [facility] [address] [place] [address] Kaela Dimas GROUP B STREP CULTUREon S. agalactiae Ag Ql (Unsp spec) Culture Observations: NEGATIVE FOR GROUP B STREPTOCOCCUS. Normal [facility] Comment on above: Performed By: #### P TT #### [facility] [address] [place] [address] Kaela Dimas US PREG BIOPHY W NON [...] by: MICHELLE LANE Date: 2021-01-30 08:23 Normal [facility] US PREG GROWTHon 01-30-2021 US PREG [...] by: MICHELLE LANE Date: 2021-01-30 08:25 Normal [facility] US PREG BIOPHY W NON STRESSo [...] by: MICHELLE LANE Date: 2021-01-23 07:22 Normal [facility] US PREG BIOPHY W NON STRESSo [...] MICHELLE LANE Date: 2021-01-16 07:31 Normal [facility] PROTEIN 24HR URINEon 021 T PROT, 24 HR UR 603.9 mg/24 hr Critically high 42.0-225.0 [facility] Comment on above: Performed By: #### G TT3P #### [facility] [address] [place] [address] Kaela Judie UR PROT 12.2 mg/dL Critically high <=12.0 [facility] Comment on above: Performed By: #### G TT3P #### [facility] [address] [place] [address] Kaela Judie UR TOT VOL 4950 ml/24 HR Normal [facility] Comment on above: Performed By: #### G TT3P #### [facility] [address] [place], [place] [id number] Kaela Judie CBC AUTO DIFFon 01-13-2021 BASO # 0.0 103/ul Normal 0.0-0.1 [facility] Comment on above: Performed By: #### G TT3P #### [facility] [address] [place] [address] Kaela Judie Basophils/100 WBC (Bld) 0.2 % Normal 0.2-2.0 [facility] Comment on above: Performed By: #### G TT3P #### [facility] [address] [place], [place] [address] Kaela Judie EO # 0.1 103/ul Normal 0.0-0.7 [facility] Comment on above: Performed By: #### G TT3P #### [facility] [address] [place] [address] Kaela Judie Eosinophils/100 WBC (Bld) 0.6 % Critically low 0.9-7.0 [facility] Comment on above: Performed By: #### G TT3P #### [facility] [address] [place] [address] Kaela Dimas Erythrocyte distribution width (RBC) [Ratio] 11.7 % Normal 11.0-15.0 [facility] Comment on above: Performed By: #### G TT3P #### [facility] [address] [place] [address] Kaelastephanie Dimas Hematocrit (Bld) [Volume fraction] 34.5 % Critically low 36.0-48.0 [facility] Comment on above: Performed By: #### G TT3P #### [facility] [address] [place] [address] Kaela Dimas Hemoglobin (Bld) [Mass/Vol] 12.1 g/dL Normal 12.0-16.0 [facility] Comment on above: Performed By: #### G TT3P #### [facility] [address] [place] [address] Kaela Judie IG # 0.20 10e3/ul Critically high 0.00-0.03 [facility] Comment on above: Performed By: #### G TT3P #### [facility] [address] [place] [address] Kaela Judie IG % 1.2 % Critically high 0.0-0.5 [facility] Comment on above: Performed By: #### G TT3P #### [facility] [address] [place] [address] Kaela Judie LYMPH # 1.5 103/ul Normal 1.2-3.8 [facility] Comment on above: Performed By: #### G TT3P #### [facility] [address] [place] [address] Kaela Judie Lymphocytes/100 WBC (Bld) 8.6 % Critically low 20.5-60.0 [facility] Comment on above: Performed By: #### G TT3P #### [facility] [address] [place] [address] Kaela Dimas MANUAL DIFF REQ NO Normal [facility] Comment on above: Performed By: #### G TT3P #### [facility] [address], [place] [address] Kaela Dimas MCH (RBC) [Entitic mass] 30.6 pg Normal 26.7-34.0 [facility] Comment on above: Performed By: #### G TT3P #### [facility] [address] [place], [place] [id number] Kaela Dimas MCHC (RBC) [Mass/Vol] 35.1 g/dL Normal 29.9-35.2 [facility] Comment on above: Performed By: #### G TT3P #### [facility] [address] [place] [address] Kaelastephanie Dimas MCV (RBC) [Entitic vol] 87.3 fL Normal 81.0-99.0 [facility] Comment on above: Performed By: #### G TT3P #### [facility] [address] [place] [address] Kaela Judie MONO # 1.2 103/ul Critically high 0.3-0.8 [facility] Comment on above: Performed By: #### G TT3P #### [facility] [address] [place] [address] Kaela Judie Monocytes/100 WBC (Bld) 6.6 % Normal 1.7-12.0 [facility] Comment on above: Performed By: #### G TT3P #### [facility] [address] [place] [address] Kaelastephanie Sahuen NEUT # 14.4 103/ul Critically high 1.4-6.5 [facility] Comment on above: Performed By: #### G TT3P #### [facility] [address] [place], [place] [address] Kaela Judie Neutrophils/100 WBC (Bld) 82.8 % Critically high 43.0-75.0 [facility] Comment on above: Performed By: #### G TT3P #### [facility] [address] [place], [place] [address] Kaela Judie Platelet mean volume (Bld) [Entitic vol] 12.1 fL Normal 9.5-13.5 [facility] Comment on above: Performed By: #### G TT3P #### [facility] [address], [place] [address] Kaela Judie PLT 216 103/ul Normal 150-450 [facility] Comment on above: Performed By: #### G TT3P #### [facility] [address], [place] [address] Kaela Judie RBC 3.95 106/ul Critically low 4.20-5.40 [facility] Comment on above: Performed By: #### G TT3P #### [facility] [address], [place] [address] Kaela Judie WBC 17.4 103/ul Critically high 4.0-11.0 [facility] Comment on above: Performed By: #### G TT3P #### [facility] [address] [place] [address] Kaela Judie CULTURE URINEon 01-13-2021 CULTURE URINE Culture Observations : LIGHT GROWTH OF MIXED GENITAL TINO. NO POTENTIAL PATHOGENS SEEN. Normal [facility] Comment on above: Performed By: #### P TT #### [facility] [address] [place] [address] Kaela Judie LDHon 01-13-2021 LDH 194 U/L Normal 122-222 [facility] Comment on above: Performed By: #### U ELIZABETH, LDH #### [facility] [address] [place] [address] Kaela Judie PROF 14(COMP METB)on 021 Albumin [Mass/Vol] 2.7 g/dL Critically low 3.5-5.0 [facility] Comment on above: Performed By: #### G TT3P #### [facility] [address] [place] [address] Kaela Judie Albumin/Globulin [Mass ratio] 0.9 {ratio} Normal [facility] Comment on above: Performed By: #### G TT3P #### [facility] [address] [place] [address] Kaela Judie ALP [Catalytic activity/Vol] 134 U/L Critically high 38-126 [facility] Comment on above: Performed By: #### G TT3P #### [facility] [address], [place] [address] Kaela Judie ALT [Catalytic activity/Vol] 21 U/L Normal 9-52 [facility] Comment on above: Performed By: #### G TT3P #### [facility] [address], [place] [address] Kaela Judie Anion gap [Moles/Vol] 11.6 mmol/L Normal Th e [facility] Comment on above: Performed By: #### G TT3P #### [facility] [address] [id number] Kaela Judie AST [Catalytic activity/Vol] 17 U/L Normal 14-36 [facility] Comment on above: Performed By: #### G TT3P #### [facility] [address] [address] Kaela Judie Bilirubin [Mass/Vol] 0.2 mg/dL Normal 0.2-1.3 [facility] Comment on above: Performed By: #### G TT3P #### [facility] [address] [place], [place] [address] Kaela Judie Calcium [Mass/Vol] 9.1 mg/dL Normal 8.4-10.2 [facility] Comment on above: Performed By: #### G TT3P #### [facility] [address] [place] [address] Kaela Judie Chloride [Moles/Vol] 106 mmol/L Normal 98-107 [facility] Comment on above: Performed By: #### G TT3P #### [facility] [address] [address] Kaela Judie CO2 [Moles/Vol] 25.8 mmol/L Normal 22.0-30.0 [facility] Comment on above: Performed By: #### G TT3P #### [facility] [address] [place], [place] [address] Kaela Judie Creatinine [Mass/Vol] 0.53 mg/dL Normal 0.52-1.04 [facility] Comment on above: Performed By: #### G TT3P #### [facility] [address], [place] [address] Kaela Judie EGFR-AF ESTONIAN >60 Normal >=60 [facility] Comment on above: Performed By: #### G TT3P #### [facility] [address] [id number] Kaela Judie EGFR-NON AF ESTONIAN >60 Normal >=60 [facility] Comment on above: Performed By: #### G TT3P #### [facility] [address] [id number] Kaela Judie Globulin (S) [Mass/Vol] 3.0 g/dL Normal [facility] Comment on above: Performed By: #### G TT3P #### [facility] [address] [place] [address] Kaela Judie Glucose [Mass/Vol] 85 mg/dL Normal 74-106 [facility] Comment on above: Performed By: #### G TT3P #### [facility] [address] [place] [address] Kaela Judie Potassium [Moles/Vol] 3.4 mmol/L Normal 3.4-5.0 [facility] Comment on above: Performed By: #### G TT3P #### [facility] [address] [place] [address] Kaela Judie Protein [Mass/Vol] 5.7 g/dL Critically low 6.1-8.[address] [facility] Comment on above: Performed By: #### G TT3P #### [facility] [address] [place] [address] Kaela Judie Sodium [Moles/Vol] 140 mmol/L Normal 137-145 [facility] Comment on above: Performed By: #### G TT3P #### [facility] [address] [place] [address] Kaela Judie Urea nitrogen [Mass/Vol] 10.0 mg/dL Normal 7.0-17.0 [facility] Comment on above: Performed By: #### G TT3P #### [facility] [address] [place] [address] Kaela Judie Urea nitrogen/Creatinine [Mass ratio] 18.9 mg/mg Normal [facility] Comment on above: Performed By: #### G TT3P #### [facility] [address] [place] [address] Kaelastephanie Sahuen PTTon 01-13-2021 aPTT Coag (Bld) [Time] 23.6 s Normal 22.3-36.2 Th e [facility] Comment on above: Performed By: #### P TT #### [facility] [address] [place] [address] Kaela Judie URIC ACID SERUMon 01-13-2021 Urate [Mass/Vol] 3.7 mg/dL Normal 2.5-6.2 [facility] Comment on above: Performed By: #### U ELIZABETH, LDH #### [facility] [address] [place] [address] Kaela Judie UA (CLEAN/CATCH) CHILD CARE TEACHER/MICRO I F IND.on 01-12-2021 Bilirubin Ql (U) Negative Normal NEGATIVE [facility] Comment on above: Performed By: #### U MICRO, UACSIND #### [facility] [address] [place] [address] Kaela Judie Clarity (U) CLEAR Normal CLEAR [facility] Comment on above: Performed By: #### U MICRO, UACSIND #### [facility] [address] [place] [address] Kaela Judie Color (U) LT. YELLOW Normal YELLOW [facility] Comment on above: Performed By: #### U MICRO, UACSIND #### [facility] [address] [place] [address] Kaela Judie Glucose Ql (U) Negative Normal NEGATIVE [facility] Comment on above: Performed By: #### U MICRO, UACSIND #### [facility] [address] [place] [address] Kaela Judie Hemoglobin Ql (U) Negative Normal NEGATIVE [facility] Comment on above: Performed By: #### U MICRO, UACSIND #### [facility] [address] [place] [address] Kaela Judie Ketones Ql (U) Negative Normal NEGATIVE [facility] Comment on above: Performed By: #### U MICRO, UACSIND #### [facility] [address] [place] [address] Kaela Judie LEUKOCYTES TRACE Abnormal NEGATIVE [facility] Comment on above: Performed By: #### U MICRO, UACSIND #### [facility] [address] [place] [address] Kaela Judie Nitrite Ql (U) Negative Normal NEGATIVE [facility] Comment on above: Performed By: #### U MICRO, UACSIND #### [facility] [address] [place] [address] Kaela Judie pH (U) 6.0 [pH] Normal 5-9 [facility] Comment on above: Performed By: #### U MICRO, UACSIND #### [facility] [address] [place] [address] Kaela Dimas SPEC GRAVITY 1.025 Normal 1.005-<=1. 025 [facility] Comment on above: Performed By: #### U MICRO, UACSIND #### [facility] [address] [place] [address] Kaela Judie UA PROTEIN Negative Normal NEGATIVE/ TRACE [facility] Comment on above: Performed By: #### U MICRO, UACSIND #### [facility] [address] [place] [address] Kaela Dimas UR MICRO IND INDICATED Normal [facility] Comment on above: Performed By: #### U MICRO, UACSIND #### [facility] [address] [place] [address] Kaelastephanie Dimas Urobilinogen Qn (U) 0.2 {Sylvester'U}/dL Normal 0.2 - 1. 0 [facility] Comment on above: Performed By: #### U MICRO, UACSIND #### [facility] [address] [place] [address] Kaela Dimas URINE MICROSCOPIC ONLYon BACTERIA TRACE Abnormal NONE SEEN [facility] Comment on above: Performed By: #### U MICRO, UACSIND #### [facility] [address] [place] [address] Kaela Judie Bacteria identified Cx Nom (U) INDICATED Normal [facility] Comment on above: Performed By: #### U MICRO, UACSIND #### [facility] [address] [address] Kaela Judie CAST NONE SEEN Normal NONE SEEN [facility] Comment on above: Performed By: #### U MICRO, UACSIND #### [facility] [address] [address] Kaela Judie Crystals LM Nom (Urine sed) NONE SEEN Normal NONE SEEN [facility] Comment on above: Performed By: #### U MICRO, UACSIND #### [facility] [address] [place] [address] Kaela Judie Epithelial cells LM Ql (Urine sed) FEW Abnormal NONE SEEN /RARE [facility] Comment on above: Performed By: #### U MICRO, UACSIND #### [facility] [address] [place] [address] Kaela Judie MUCOUS SMALL Abnormal NONE SEEN [facility] Comment on above: Performed By: #### U MICRO, UACSIND #### [facility] [address] [place] [address] Kaela Judie RBC 0-2 Normal 0-2 [facility] Comment on above: Performed By: #### U MICRO, UACSIND #### [facility] [address] [place] [address] Kaela Judie WBC 2-5 Abnormal NONE SEEN [facility] Comment on above: Performed By: #### U MICRO, UACSIND #### [facility] [address] [address] Kaela Judie US PREG BIOPHY W NON [...] IRINEO COMBS Date: 2021-01-09 07:18 Normal [facility] US PREG GROWTHon 12-31-2020 US PREG [...] cm; 32 weeks 2 days; % EFW: 4.692738, 39% FL/AC: 0.149756 FL/BPD: 0.342586 HC/AC: 1.525810 GESTATIONAL AGE: Age by EDC: 32 weeks 1 day SUSANNA by EDC: 02/24/2021 Age by US: 32 weeks 0 days SUSANNA by US: 02/25/2021 IMPRESSION: Normal interval growth Electronically authenticated by: IRINEO COMBS Date: 2020-12-31 09:38 Normal [facility] GTT 3 HR PREGon 12-12-2020 Glucose [Mass/Vol] 86 mg/dL Normal 74-106 [facility] Comment on above: Performed By: #### G TT3P #### [facility] [address] [place] [address] Kaela Judie Glucose [Mass/Vol] 179 mg/dL Normal [facility] Comment on above: Performed By: #### G TT3P #### [facility] [address] [place] [address] Kaela Judie Glucose [Mass/Vol] 131 mg/dL Normal [facility] Comment on above: Performed By: #### G TT3P #### [facility] [address] [place] [address] Kaela Dimas Glucose [Mass/Vol] 145 mg/dL Normal [facility] Comment on above: Performed By: #### G TT3P #### [facility] [address] [place], [place] [id number] Kalea Dimas GLUCOSE - 1HRon 12-05-2020 Glucose [Mass/Vol] 151 mg/dL Critically high 74-106 [facility] Comment on above: Result Comment: sherri ent was approximately 5 minutes late for draw Performed By: #### G LU1HR #### [facility] [address] [place], [place] [address] Kaela Dimas HEMOGRAM AND PLATELon 2020 Hematocrit (Bld) [Volume fraction] 38.4 % Normal 36.0-48.0 [facility] Comment on above: Performed By: #### G TT3P #### [facility] [address] [place] [address] Kaela Dimas Hemoglobin (Bld) [Mass/Vol] 13.2 g/dL Normal 12.0-16.0 [facility] Comment on above: Performed By: #### G TT3P #### [facility] [address] [place], [place] [address] Kaela Dimas MCH (RBC) [Entitic mass] 30.8 pg Normal 26.7-34.0 [facility] Comment on above: Performed By: #### G TT3P #### [facility] [address] [place], [place] [address] Kaela Dimas MCHC (RBC) [Mass/Vol] 34.4 g/dL Normal 29.9-35.2 [facility] Comment on above: Performed By: #### G TT3P #### [facility] [address] [place], [place] [address] Kaela Dimas MCV (RBC) [Entitic vol] 89.5 fL Normal 81.0-99.0 [facility] Comment on above: Performed By: #### G TT3P #### [facility] [address] [place], [place] [address] Kaela Dimas PLT 238 103/ul Normal 150-450 [facility] Comment on above: Performed By: #### G TT3P #### [facility] [address], [place] [address] Kaela Dimas RBC 4.29 106/ul Normal 4.20-5.40 [facility] Comment on above: Performed By: #### G TT3P #### [facility] [address], [place] [address] Kaela Dimas WBC 17.0 103/ul Critically high 4.0-11.0 [facility] Comment on above: Performed By: #### G TT3P #### [facility] [address], [place] [address] Kaela Dimas US PREG GROWTHon 12-03-2020 US [...] cm; 28 weeks 0 days; % EFW: 2.185754, 2 lbs. 10 oz., 40% FL/AC: 0.492171 FL/BPD: 0.846692 HC/AC: 1.470367 GESTATIONAL AGE: Age by EDC: 28 weeks 1 day SUSANNA by EDC: 02/24/2021 Age by US: 20 weeks 2 days SUSANNA by US: 02/23/2021 IMPRESSION: Normal interval growth Electronically authenticated by: IRINEO COMBS Date: 2020-12-03 10:04 Normal [facility] Vital Signs Date Time Vital Sign Value Performing Clinician Facility 07-31-2024 15:22-050 Body mass index (BMI) [Ratio] 41.81 kg/m2 Madisyn KERNS Work Phone: [facility] 07-31-2024 15:22-050 Body weight 107.05 kg Madisyn KERNS Work Phone: [facility] 07-31-2024 15:22-0500 Diastolic blood pressure 72 mm[Hg] Madisyn KERNS Work Phone: [facility] 07-31-2024 15:22-0500 Systolic blood pressure 122 mm[Hg] Madisyn KERNS Work Phone: [facility] 07-17-2024 16:19-0500 Body mass index (BMI) [Ratio] 41.81 kg/m2 Scotty Jacquie DO Work Phone: [facility] 07-17-2024 16:19-0500 Body weight 107.05 kg Scotty Jacquie DO Work Phone: [facility] 07-17-2024 16:19-0500 Diastolic blood pressure 72 mm[Hg] Scotty Jacquie DO Work Phone: [facility] 07-17-2024 16:19-0500 Systolic blood pressure 122 mm[Hg] Scotty Jacquie DO Work Phone: [facility] 07-14-2024 11:13-0500 Body height 160 cm Aniceto Fox MD Work Phone: [facility] 07-14-2024 11:13-0500 Body mass index (BMI) [Ratio] 40.74 kg/m2 Aniceto Fox MD Work Phone: [facility] 07-14-2024 11:13-0500 Body weight 104.33 kg Aniceto Fox MD Work Phone: [facility] 07-14-2024 11:13-0500 Diastolic blood pressure 84 mm[Hg] Aniceto Fox MD Work Phone: [facility] 07-14-2024 11:13-0500 Heart rate 104 /min Aniceto Fox MD Work Phone: [facility] 07-14-2024 11:13-0500 Systolic blood pressure 144 mm[Hg] Aniceto Fox MD Work Phone: [facility] 06-15-2024 15:34-0500 Body mass index (BMI) [Ratio] 40.6 kg/m2 Madisyn Jimenez PA Work Phone: [facility] 06-15-2024 15:34-0500 Body weight 103.96 kg Madisyn Jimenez PA Work Phone: [facility] 06-15-2024 15:34-0500 Diastolic blood pressure 76 mm[Hg] Madisyn Jimenez PA Work Phone: [facility] 06-15-2024 15:34-0500 Systolic blood pressure 122 mm[Hg] Madisyn [place]park PA Work Phone: [facility] 05-18-2024 12:07-0400 Body mass index (BMI) [Ratio] 39.5 kg/m2 Scotty Jacquie DO Work Phone: [facility] 05-18-2024 12:07-0400 Body weight 101.15 kg Scotty Jacquie DO Work Phone: [facility] 05-18-2024 12:07-0400 Diastolic blood pressure 78 mm[Hg] Scotty Jacquie DO Work Phone: [facility] 05-18-2024 12:07-0400 Systolic blood pressure 124 mm[Hg] Scotty Jacquie DO Work Phone: [facility] 04-20-2024 08:46-0400 Body mass index (BMI) [Ratio] 39.41 kg/m2 Madisyn Jimenez PA Work Phone: [facility] 04-20-2024 08:46-0400 Body weight 100.92 kg Madisyn Jimenez PA Work Phone: [facility] 04-20-2024 08:46-0400 Diastolic blood pressure 82 mm[Hg] Madisyn Jimenez PA Work Phone: [facility] 04-20-2024 08:46-0400 Systolic blood pressure 122 mm[Hg] Madisyn Jimenez PA Work Phone: [facility] 03-22-2024 11:34-0400 Body mass index (BMI) [Ratio] 39.5 kg/m2 Scotty Jacquie DO Work Phone: [facility] 03-22-2024 11:34-0400 Body weight 101.15 kg Scotty Jacquie DO Work Phone: [facility] 03-22-2024 11:34-0400 Diastolic blood pressure 74 mm[Hg] Scotty Jacquie DO Work Phone: [facility] 03-22-2024 11:34-0400 Systolic blood pressure 122 mm[Hg] Scotty Jacquie DO Work Phone: [facility] 01-31-2024 18:14-0400 Diastolic blood pressure 74 mm[Hg] MD Jacques Mccarthy Work Phone: [facility] 01-31-2024 18:14-0400 Heart rate 100 /min MD Jacques Mccarthy Work Phone: [facility] 01-31-2024 18:14-0400 Respiratory rate 18 /min MD Jacques Mccarthy Work Phone: [facility] 01-31-2024 18:14-0400 SaO2% (BldA) [Mass fraction] 100 % MD Jacques Mccarthy Work Phone: [facility] 01-31-2024 18:14-0400 Systolic blood pressure 156 mm[Hg] MD Jacques Mccarthy Work Phone: [facility] 01-31-2024 14:04-0400 Body height 160.02 cm MD Jacques Mccarthy Work Phone: [facility] 01-31-2024 14:04-0400 Body temperature 97.4 [degF] MD Jacques Mccarthy Work Phone: [facility] 01-31-2024 14:04-0400 Body weight 98.5 kg MD Jacques Mccarthy Work Phone: [facility] Encounters Encounter Date Encounter Type Care Provider Facility Start: 07-31-2024 End: 07-31-2024 flow sheet Madisyn KERNS Work Phone: [facility] Comment on above: Third trimester preg red; 30 weeks gestation of Start: 07-31-2024 End: 07-31-2024 ambulatory MADISYN GAONA Not Available Start: 07-31-2024 End: 07-31-2024 Bamboo flowsheet Madisyn KERNS Work Phone: [facility] Start: 07-31-2024 End: 07-31-2024 Bamboo flowsheet Madisyn KERNS Work Phone: [facility] Start: 07-17-2024 End: 07-17-2024 ambulatory SCOTTY CONNELLYO Not Available Start: 07-17-2024 End: 07-17-2024 flow sheet Scotty Jacquie DO Work Phone: [facility] Comment on above: Third trimester preg red; 28 weeks gestation of ; Gestational diabetes mellitus (GDM) in third trimester, gestational diabetes method of control unspecified; Hypertension, unspecified type ([facility]/HCC); Gestational diabetes mellitus (GDM), antepartum, gestational diabetes method of control unspecified; Elevated glucose tolerance test Start: 07-14-2024 End: 07-14-2024 Office consultation new/estab patient 60 min Aniceto Fox MD Work Phone: [facility] Comment on above: Gestational diabetes mellitus (GDM), antepartum, gestational diabetes method of control unspecified (Primary Dx); Chronic hypertension affecting Start: 07-14-2024 End: 07-14-2024 ambulatory [facility] Start: 07-13-2024 End: 07-13-2024 Clinisync Result Encounter Madisyn KERNS Work Phone: [facility] Unsolicited Start: 07-13-2024 End: 07-13-2024 Clinisync Result Encounter Madisyn KERNS Work Phone: [facility] Unsolicited Start: 06-21-2024 End: 06-21-2024 Chart abstracting Aniceto Fox MD Work Phone: [facility] Start: 06-15-2024 End: 06-15-2024 flow sheet Madisyn KERNS Work Phone: [facility] Comment on above: Second trimester pre gnancy; 24 weeks gestation of ; Diabetes mellitus screening; Elevated blood pressure affecting in first trimester, antepartum; High blood pressure affecting in first trimester, antepartum; Heartburn during in second trimester Start: 06-15-2024 End: 06-15-2024 ambulatory MADISYN GAONA Not Available Start: 06-15-2024 End: 06-15-2024 Bamboo flowsheet Madisyn KERNS Work Phone: [facility] Start: 06-15-2024 End: 06-15-2024 Bamboo flowsheet Madisyn KERNS Work Phone: [facility] Start: 05-18-2024 End: 05-18-2024 Bamboo flowsheet Scotty Jacquie DO Work Phone: [facility] Start: 05-18-2024 End: 05-18-2024 Bamboo flowsheet Scotty Jacquie DO Work Phone: [facility] Start: 05-18-2024 End: 05-18-2024 ambulatory SCOTTY JACQUIE Not Available Start: 05-18-2024 End: 05-18-2024 flow sheet Scotty Jacquie DO Work Phone: [facility] Comment on above: 20 weeks gestation o f ; Second trimester Start: 04-20-2024 End: 04-20-2024 Bamboo flowsheet Madisyn KERNS Work Phone: [facility] Start: 04-20-2024 End: 04-20-2024 Bamboo flowsheet Madisyn KERNS Work Phone: [facility] Start: 04-20-2024 End: 04-20-2024 Office outpatient visit 15 minutes Madisyn KERNS Work Phone: [facility] Comment on above: Screening, , for anatomic survey; Well woman exam with routine gynecological exam; Screen for STD (sexually transmitted disease); Vaginal discharge; Second trimester Start: 04-20-2024 End: 04-20-2024 Patient encounter procedure Madisyn KERNS Work Phone: [facility] Start: 04-20-2024 End: 04-20-2024 ambulatory MADISYN GAONA Not Available Start: 03-22-2024 End: 03-22-2024 Bamboo flowsheet Scotty Jacquie DO Work Phone: [facility] Start: 03-22-2024 End: 03-22-2024 Bamboo flowsheet Scotty Jacquie DO Work Phone: [facility] Start: 03-22-2024 End: 03-22-2024 flow sheet Scotty Jacquie DO Work Phone: [facility] Comment on above: Second trimester pre gnancy; Abnormal CBC Start: 03-22-2024 End: 03-22-2024 ambulatory SCOTTY JACQUIE Not Available Start: 02-24-2024 End: 02-24-2024 ambulatory SCOTTY JACQUIE Not Available Start: 02-22-2024 End: 02-22-2024 ambulatory MADISYN GAONA Not Available Start: 02-11-2024 End: 02-11-2024 ambulatory SCOTTY JACQUIE Not Available Start: 02-08-2024 End: 02-08-2024 ambulatory SCOTTY JACQUIE Not Available Start: 01-31-2024 End: 01-31-2024 Emergency department patient visit MD Jacques Mccarthy Work Phone: [facility] Work Phone: Start: 10-08-2021 End: 10-08-[address] SCOTTY DHILLON Facility:[facility] Start: 02-19-[address] SCOTTY DHILLON Facility :[facility] Start: 02-11-2021 End: 02-11-[address] SCOTTY DHILLON Facility:[facility] Start: 02-06-2021 Evaluation and manag ement of inpatient DR SCOTTY DHILLON Facility:[facility] Start: [...] Date Procedure Procedure Detail Performing Clinician Start: 07-31-2024 Urnls dip stick/tabl et rgnt non-auto w/o micrscp Madisyn KERNS Work Phone: Start: 07-17-2024 Urnls dip stick/tabl et rgnt non-auto w/o micrscp Scotty Dhillon DO Work Phone: Start: 07-14-2024 Glucose quantitative blood xcpt reagent strip Aniceto Fox MD Work Phone: Start: 07-13-2024 ALL CBC WITH AUTO DIFF Madisyn KERNS Work Phone: Start: 06-15-2024 Urnls dip stick/tabl et rgnt non-auto w/o micrscp Madisyn KERNS Work Phone: Start: 05-18-2024 Urnls dip stick/tabl et rgnt non-auto w/o micrscp Scotty Dhillon DO Work Phone: Start: 04-20-2024 Urnls dip stick/tabl et rgnt non-auto w/o micrscp Madisyn KERNS Work Phone: Start: 02-06-2021 Extraction of Produc ts of Conception, Low Cervical, Open Approach DR SCOTTY DHILOLN Start: 02-05-2021 Introduction of Othe r Hormone into Peripheral Vein, Percutaneous Approach DR SCOTTY DHILLON Plan of Treatment Date Care Activity Detail Author Start: 06-21-2025 Adult BMI Screening Adult BMI Screen [facility] Start: 08-14-2024 End: 08-14-2024 Patient encounter procedure 08/14/2024 3:30 PM EST Routine [facility] [address] [place] [phone] Scotty Dhillon, DO [address] [place] [address] [facility] Start: 07-31-2024 End: 07-31-2024 Patient encounter procedure [facility] Comment on above: Arrived Start: 07-17-2024 End: 07-17-2024 Patient encounter procedure 07/17/2024 3:20 PM EST Routine [facility] [address] [place] [id number] Scotty Dhillon, DO [address] [place] [address] [facility] Start: 07-17-2024 End: 07-17-2024 Professional / ancillary services management 07/17/2024 3:00 PM EST Ancillary Procedure [facility] [address] [place] [phone] [facility] Start: 07-17-2024 End: 07-17-2025 US biophysical profile w non stress test US biophysical profile w non stress test Imaging Routine Third trimester Gestational diabetes mellitus (GDM) in third trimester, gestational diabetes method of control unspecified Hypertension, unspecified type (CMS/HCC) Expected: 07/17/2024 (Approximate), Expires: 07/17/2025 [facility] Comment on above: Expected: 07/17/2024 (Approximate), Expires: 07/17/2025 Start: 07-17-2024 End: 07-17-2025 US for US OB SCAN FOR GROWTH Imaging Routine Third trimester Gestational diabetes mellitus (GDM) in third trimester, gestational diabetes method of control unspecified Hypertension, unspecified type (CMS/HCC) Expected: 07/17/2024 (Approximate), Expires: 07/17/2025 [facility] Work Phone: Comment on above: Expected: 07/17/2024 (Approximate), Expires: 07/17/2025 Start: 07-14-2024 End: 07-14-2024 Patient encounter procedure [facility] Start: 06-15-2024 End: 06-15-2024 Patient encounter procedure 06/15/2024 3:30 PM EST Routine [facility] [address] [facility] [place] [phone] Madisyn Gaona PA [address] [facility] [place] [address] [facility] Start: 06-15-2024 End: 06-15-2025 CBC panel - Blood by Automated count CBC Lab Routine Diabetes mellitus screening Expected: 06/15/2024 (Approximate), Expires: 06/15/2025 [facility] Work Phone: Comment on above: Expected: 06/15/2024 (Approximate), Expires: 06/15/2025 Start: 06-15-2024 End: 06-15-2025 Measurement of glucose 1 hour after glucose challenge for glucose tolerance test Glucose tolerance, 1 hour Lab Routine Diabetes mellitus screening Expected: 06/15/2024 (Approximate), Expires: 06/15/2025 [facility] Comment on above: Expected: 06/15/2024 (Approximate), Expires: 06/15/2025 Start: 05-18-2024 End: 05-18-2024 Patient encounter procedure 05/18/2024 11:40 AM EDT Office Visit [facility] [address] [facility] [place] [phone] Scotty Dhillon, DO [address] [place] [address] [facility] Start: 05-18-2024 End: 05-18-2024 Professional / ancillary services management 05/18/2024 10:30 AM EDT Ancillary Procedure [facility] [address] [facility] [place] [phone] [facility] Start: 04-20-2024 End: 04-20-2025 Alpha fetoprotein, maternal Alpha fetoprotein, maternal Lab Routine Second trimester Expected: 04/20/2024 (Approximate), Expires: 04/20/2025 [facility] Work Phone: Comment on above: Expected: 04/20/2024 (Approximate), Expires: 04/20/2025 Start: 04-20-2024 End: 04-20-2025 US for US OB ANATOMY SINGLE W US OB CERVICAL LENGTH Imaging Routine Screening, , for anatomic survey Expected: 04/20/2024 (Approximate), Expires: 04/20/2025 [facility] Comment on above: Expected: 04/20/2024 (Approximate), Expires: 04/20/2025 Start: 04-20-2024 End: 04-20-2024 Patient encounter procedure [facility] Comment on above: Arrived Start: 04-02-2024 Influenza vaccination Influenza Vacc ine [facility] Start: 03-22-2024 End: 03-22-2024 Patient encounter procedure 03/22/2024 11:20 AM EDT Routine [facility] [address] [facility] [place] [phone] Scotty Dhillon, DO [address] [place] [address] Arrived [facility] Comment on above: Arrived Start: 2018 Screening for malign ant neoplasm of cervix Pap Smear [facility] Start: 2016 DTaP,Tdap and Td Vaccines (1 - Tdap) DTaP,Tdap and Td Vaccines (1 - Tdap) [facility] Start: 2015 Adult BMI Follow Up Plan Adult BMI Follow Up Plan [facility] Start: 2015 Adult BMI Screening Adult BMI Screen ing [facility] Start: 2009 Depression Screening Depression Scre ening [facility] Start: 2009 Tobacco Screening Tobacco Screening [facility] CBC W Auto Different ial panel - Blood CBC and differential Lab Routine Abnormal CBC Ordered: 03/22/2024 [facility] Work Phone: Comment on above: Ordered: 03/22/2024 Patient Education - Th e Second Month High Blood Pressure ED [facility] Work Phone: Patient referral [facility] Work Phone: Payers Date Payer Category Payer Medicaid [id number] 2024 Medicaid [id number] 2024 Private Health Insurance [id number] 2024 Private Health Insurance [id number] 2024 Self-pay 2022 Medicaid HMO [employer] [id number] 1997 Unknown [id number] 593 1997 Unknown [id number]. 593 1997 Unknown [id number] [id number]. 593 1997 Unknown [id number] [id number]. 593 1997 Unknown [id number] [id number]. 593 1997 Unknown [id number] [id number]. 593 1997 Unknown [id number] [id number]. 593 1997 Unknown [id number] 2.16.840.1.484149.3.579.2. 593 1997 Unknown [id number] 2.16.840.1.160121.3.579.2. 593 1997 Unknown [id number] 2.16.840.1.627058.3.579.2. 593 1997 Unknown [id number] 2.16.840.1.278898.3.579.2. 593 1997 Unknown [id number] 2.16.840.1.403371.3.579.2. 593 1997 Unknown [id number] 2.16.840.1.726935.3.579.2. 593 1997 Unknown [id number] 2.16.840.1.611393.3.579.2. 593 1997 Unknown [id number] 2.16.840.1.922227.3.579.2. 593 1997 Unknown [id number] 2.16.840.1.918873.3.579.2. 593 1997 Unknown [id number] 2.16.840.1.562642.3.579.2. 593 1997 Unknown [id number] 2.16.840.1.791874.3.579.2. 593 1997 Unknown [id number] 2.16.840.1.339874.3.579.2. 1286 1997 Unknown [id number] 2.16.840.1.140264.3.579.2. 9 1997 Unknown [id number] 2.16.840.1.395262.3.579.2. 9 1997 Unknown [id number] 2.16.840.1.508421.3.579.2. 9 1997 Unknown [id number] 2.16.840.1.187619.3.579.2. 1258 1997 Unknown [id number] 2.16.840.1.807588.3.579.2. 9 1997 Unknown [id number] 2.16.840.1.615693.3.579.2. 9 1997 Unknown [id number] 2.16.840.1.443156.3.579.2. 9 1997 Unknown [id number] 2.16.840.1.418724.3.579.2. 1258 1997 Unknown [id number] 2.16.840.1.186783.3.579.2. 9 1997 Unknown [id number] 2.16.840.1.506306.3.579.2. 9 1959 Unknown [id number] 1959 Unknown [id number] 1959 Unknown [id number] Unknown [id number] 2.16.840.1.390815.3.579.2. 531 Social History Date Type Detail Facility Start: 01-13-2024 [facility] Start: 01-31-2024 Tobacco smoking stat [facility] Never smoked tobacco (finding) [facility] Start: 1997 Sex Assigned At Female [facility] Start: 1997 Sex assigned at Not on file [facility] Start: 08-23-2020 End: 06-21-2024 Gender identity Not on file [facility] Start: 10-07-2020 End: 07-14-2024 Tobacco smoking status NHIS Ex-smoker [facility] History of tobacco use Current smoker [facility] Start: 10-07-2020 End: 07-14-2024 Tobacco use and exposure Smokeless tobacco non-user [facility] Start: 06-21-2024 End: 07-14-2024 Alcoholic beverage intake Ex-drinker (finding) [facility] Start: 08-23-2020 End: 06-21-2024 History of Social function [facility] Childcare Unknown [facility] Start: 10-07-2020 End: 07-14-2024 Tobacco Comment quit 3 years ago [facility] Start: 08-23-2020 Sex Female (finding) [facility] History of tobacco use Cigarette Smoker P [facility] Medical Equipment Procedure Code Equipment Code Equipment Origin al Text Equipment Identifier Dates 1 strip by In Vi tro route Daily Use in the morning prior to breakfast, 1 hour after each meal for a total of 4times daily. [id number] Start: 07-17-2024 End: 08-16-2024 1 each by In Vit ro route Daily Use to check FSBS four times daily [id number] Start: 07-17-2024 End: 08-16-2024 Clinical Notes 02-05-2021 to 07-31-2024 LUIS F Tarango - 07/31/2024 3:10 PM Richar Butt LPN - 07/17/2024 3:20 PM Nixon Nails RN - 07/14/2024 11:00 AM Angel Fox MD - 07/14/2024 11:00 AM EST Note Date & Type Note Facility 07-31-2024 History of Present illness Narrative Reason for Appointment: Patient ID: Samantha Taylor is a 29 y.o. female who presents for Routine Visit Patient presents today for Return OB appointment. MEDICATIONS Current Outpatient Medications Medication Instructions Alcohol Swabs (Alcohol Prep Pad) 70 % pads 1 Pad, Topical, Daily, Use four times daily to check FSBS. Blood Glucose Monitoring Suppl (DICOM Grid Glucometer) w/Device kit 1 kit, Does not apply, Daily, Use four times daily to check FSBS. In the morning prior to breakfast & 1 hour after each meal for a total of 4times daily. citalopram (CELEXA) 20 mg, Oral, Every morning Glucose Blood (Blood Glucose Test) strip 1 strip, In Vitro, Daily, Use in the morning prior to breakfast, 1 hour after each meal for a total of 4times daily. labetalol (NORMODYNE) 200 mg, Oral, 3 times daily Lancets Ultra Thin misc 1 each, In Vitro, Daily, Use to check FSBS four times daily omeprazole (PRILOSEC) 20 mg, Oral, Daily before breakfast, Do not crush or chew. ALLERGIES No Known Allergies PROBLEMS Active Ambulatory Problems Diagnosis Date Noted No Active Ambulatory Problems Resolved Ambulatory Problems Diagnosis Date Noted No Resolved Ambulatory Problems No Additional Past Medical History HISTORY PAST MEDICAL HISTORY SOCIAL HISTORY No past medical history on file. Social History Tobacco Use Smoking status: Not [...] reviewed. Vitals: Estimated body mass index is 41.81 kg/m as calculated from the following: Height as of 02/22/24: 5' 3 . Weight as of 07/17/24: 236 lb. BP: Patient's last menstrual period was 12/21/2023. ASSESSMENT & PLAN ICD-10-CM 1. Third trimester Z34.93 POCT urinalysis dipstick manually resulted 2. 30 weeks gestation of Z3A.30 Return OB: Patient presents today for a routine obstetrics appointment. Patient is currently 30w4d . Patient states she is doing well but has complaints of being tired due to current . Patient has verbalizes frequent movement. labor precautions was discussed/given and patient was instructed to perform kick counts three times a day. Orders Placed This Encounter Procedures POCT urinalysis dipstick manually resulted Follow Up: Patient is to return to office in 2 week for routine OB appointment. Documented by Tashia Moore MA on behalf of: LUIS F Tarango documented in this encounter [facility] 07-17-2024 History of Present illness Narrative Reason for Appointment: Patient ID: [...] History HISTORY PAST MEDICAL HISTORY SOCIAL HISTORY No past medical history on file. Social History Tobacco Use Smoking status: Not [...] systems reviewed and are negative. OBJECTIVE Objective: OBGyn Exam Vitals: Estimated body mass index is 41.81 kg/m as calculated from the following: Height as of 02/22/24: 5' 3 . Weight as of this encounter: 236 lb. BP: 122/72 Patient's last menstrual period was 12/21/2023. ASSESSMENT & PLAN ICD-10-CM 1. Third trimester Z34.93 US OB SCAN FOR GROWTH US biophysical profile w non stress test POCT urinalysis dipstick manually resulted 2. 28 weeks gestation of Z3A.28 3. Gestational diabetes mellitus (GDM) in third trimester, gestational diabetes method of control unspecified O24.419 US OB SCAN FOR GROWTH US biophysical profile w non stress test 4. Hypertension, unspecified type (CMS/HCC) I10 US OB SCAN FOR GROWTH US biophysical profile w non stress test Patient presents today for a routine obstetrics appointment. Patient is currently 28w4d with a Estimated Date of Delivery: 10/05/24. Patient to check FSBS and supplies sent to patients pharmacy. Patient given orders for growth scan and NST/BPP. Patient to return to clinic in 2-3 weeks for routine OB appointment. Documented by Angela Butt LPN on behalf of: Scotty Dhillon DO documented in this encounter [facility] 07-14-2024 History of Present illness Narrative Headache/epigastric pain/blurry vision/swelling? no Cramping/contractions? no Abnormal vaginal discharge? no Spotting/vaginal bleeding? no Loss or gush of fluid like your water may have broken? no Do you have cats at home? no Do you change the litter box (reason: risk of toxoplasmosis)? Genetic testing done this here or other office? yes Have you been seen here at [facility] in a previous ? no Recent ER visits or hospitalizations? no Bring blood sugar log or meter with you today? (Please bring them with you for every visit at [facility]) no Flu vaccine (Jun-September)? no Any concerns that you would like me to mention to the provider today? no REASON FOR CONSULTATION: Maternal Essential hypertension. HISTORY OF PRESENT ILLNESS: Samantha Taylor is a pleasant 29 y.o. G 2 P1 001. at 28w1d due on Estimated Date of Delivery: 10/05/24 . Patient was seen today due to the following 1. Maternal essential hypertension currently on labetalol 200 mg p.o. q.8 hours with good blood pressure control. Low-dose aspirin therapy was started today. 2. Patient failed her 1 hour glucose tolerance test. Patient is going to go through her 3 hour glucose tolerance test. Previous also complicated with gestational diabetes. 3. Limited cardiac use at her OB office. Unfortunately patient came late to her appointment and therefore ultrasound was rescheduled. 4. Maternal increased BMI of 40 and is a candidate for testing. 5. History of prior 1 . Patient is scheduled for repeat at her local hospital. Currently the patient has no complaints. The patient denies nausea, vomiting, abdominal pain, vaginal bleeding, SOB or chest pain. Patient's PMH/PSH,SH,PSYCH Hx, MEDs, ALLERGIES, and ROS were all reviewed and updated in the appropriate sections. 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 (Patient not taking: Reported on 07/14/2024), Disp: , Rfl: labetaloL (NORMODYNE) 100 mg tablet, Take 2 tablets (200 mg total) by mouth in the morning and 2 tablets (200 mg total) at noon and 2 tablets (200 mg total) in the evening., Disp: , Rfl: miscellaneous medical supply [facility], by miscellaneous route once., Disp: , Rfl: omeprazole (PriLOSEC) 20 mg capsule, Take 1 capsule (20 mg total) by mouth in the morning., Disp: , Rfl: ondansetron (ZOFRAN) 4 mg tablet, Take 4 mg by mouth every 8 (eight) hours as needed for nausea or vomiting. (Patient not taking: Reported on 07/14/2024), Disp: , Rfl: vits62/FA/om3/dha/epa ( GUMMY ORAL), Take by mouth., Disp: , Rfl: FAMILY/GENETIC HISTORY: No family history of VTE, cardiac defects and mental retardation . SOCIAL HISTORY:Patient denies tobacco use, alcohol use, or drug use. RECENT HOSPITALIZATION: none I did review all the labs results available in addition to labs which were ordered by the primary care physician, and the other consultants, we search on [employer] and all the available care everywhere epic I did review all the imaging studies of the patient available on EMR, ordered by the primary care physician and the other clinical science consultant HABITS: Patient activity no restrictions, diet no restrictions REVIEW OF SYSTEM: Head and Neck: Negative for any dizziness and headaches. Cardiovascular and Respiratory System: Denies any chest pain, shortness of breath, and coughing. Abdominal and System: Denies any abdominal pain, nausea, vomiting, vaginal bleeding, and vaginal discharge Social Determinants of Health Financial Resource Strain: n Food Insecurity: n Transportation Needs: n Physical Activity: y Social Connections: y Intimate Partner Violence: n Housing Stability: y PHYSICAL EXAMINATION: BP 144/84 (BP Site: Left Arm, BP Postition: Sitting, BP CUFF SIZE: Other) Comment (BP CUFF SIZE): adult 11 navy Pulse 104 LMP 12/21/2023 . Gravid abdomen, Respirations not labored. Well oriented time place person, normal gait MEDICAL DECISION MAKING DISCUSSION: I informed the patient that unlike other hypertensive disorders in essential hypertension needs to be treated with a goal of keeping the blood pressure less than 140/90 and therefore medication can be titrated accordingly. Labetalol can be increased and Procardia can also be added. should be continue with serial growth ultrasounds every 4 weeks at her OB office. Initiate testing at 32 weeks gestation with delivery at 38 weeks gestation via repeat at her local hospital. RECOMMENDATION: 1. Continue labetalol with a goal of keeping the blood pressure below 140/90 and therefore medication can be titrated upwards and Procardia can be added. 2. Patient was started on low-dose aspirin therapy 81 mg p.o. daily which can be discontinued . 3. Serial growth ultrasounds every 4 weeks at her OB office. 4. Initiate testing form once a week NST and JANES 32 weeks gestation. 5. Increase testing twice weekly NST and weekly JANES at 36 weeks gestation OB office. 6. Delivery at 38 weeks gestation via repeat at her local hospital based on maternal essential hypertension on medication criteria. 7. Patient encouraged to complete her 3 hour glucose tolerance test. Patient failed her 3 hour glucose tolerance test, refer M for diabetes management.. 8. Patient came more than 1 hour late for her ultrasound appointment and therefore has been rescheduled at our [facility] site. DISPOSITION: At this point the patient is in complete care of her inventory coordinator. Patient does have ultrasound appointment scheduled with us. Thank you for allowing me to participate in Samantha Taylor . If there any questions please do not hesitate to contact us. Sincerely, ANICETO FOX MD documented in this encounter [facility] 06-15-2024 History of Present illness Narrative Reason for Appointment: Patient ID: [...] LUIS F Tarango documented in this encounter [facility] 05-18-2024 History of Present illness Narrative Reason for Appointment: Patient ID: [...] nursing note reviewed. Exam conducted with a software application tester present. Vitals: Estimated body mass index is [...] of MSAFP orders to have drawn at [facility] in [place]. Documented by Angela Butt LPN on behalf of: Scotty Dhillon DO documented in this encounter [facility] 04-20-2024 History of Present illness Narrative Reason for Appointment: Patient ID: Samantha Taylor is a 29 y.o. female who presents for Routine Visit Patient presents today for Return OB appointment. MEDICATIONS Current Outpatient Medications Medication Instructions citalopram (CELEXA) 20 mg, Oral, Every morning labetalol (NORMODYNE) 200 mg, Oral, 2 times daily ALLERGIES No Known Allergies PROBLEMS [...] reviewed. Vitals: Estimated body mass index is 39.41 kg/m as calculated from the following: Height as of 02/22/24: 5' 3 . Weight as of this encounter: 222 lb 8 oz. BP: 122/82 Patient's last menstrual period was 12/21/2023. ASSESSMENT & PLAN ICD-10-CM 1. Screening, , for anatomic survey Z36.89 US OB ANATOMY SINGLE W US OB CERVICAL LENGTH 2. Well woman exam with routine gynecological exam Z01.419 Pap Smear 3. Screen for STD (sexually transmitted disease) Z11.3 SURESWAB(R) ADVANCED VAGINITIS PLUS, TMA CHLAMYDIA TRACHOMATIS (GENITO/STI) Neisseria gonorrhea DNA probe, direct 4. Vaginal discharge N89.8 SURESWAB(R) ADVANCED VAGINITIS PLUS, TMA CHLAMYDIA TRACHOMATIS (GENITO/STI) Neisseria gonorrhea DNA probe, direct 5. Second trimester Z34.92 POCT urinalysis dipstick manually resulted SURESWAB(R) ADVANCED VAGINITIS PLUS, TMA CHLAMYDIA TRACHOMATIS (GENITO/STI) Neisseria gonorrhea DNA probe, direct Alpha fetoprotein, maternal Alpha fetoprotein, maternal Return OB: Patient presents today for a routine obstetrics appointment. Patient is currently 16w0d . Patient states she is doing well but has complaints of being tired due to current . Patient has verbalizes frequent movement. Pap and cultures at next appointment at 20 weeks Orders Placed This Encounter Procedures US OB ANATOMY SINGLE W US OB CERVICAL LENGTH CHLAMYDIA TRACHOMATIS (GENITO/STI) Neisseria gonorrhea DNA probe, direct Alpha fetoprotein, maternal POCT urinalysis dipstick manually resulted Follow Up: Patient is to return to office in 2 week for routine OB appointment. Documented by LUIS F Tarango on behalf of: LUIS F Tarango documented in this encounter [facility] 03-22-2024 History of Present illness Narrative Reason for Appointment: Patient ID: Samantha Taylor is a 29 y.o. female who presents for Routine Visit Patient presents today for Return OB appointment. MEDICATIONS Current Outpatient Medications Medication Instructions citalopram (CELEXA) 20 mg, Oral, Every morning labetalol (NORMODYNE) 200 mg, Oral, 2 times daily ALLERGIES No Known Allergies PROBLEMS [...] nursing note reviewed. Exam conducted with a software application tester present. Vitals: Estimated body mass index is 39.5 kg/m as calculated from the following: Height as of 02/22/24: 5' 3 . Weight as of this encounter: 223 lb. BP: 122/74 Patient's last menstrual period was 12/21/2023. ASSESSMENT & PLAN ICD-10-CM 1. Second trimester Z34.92 New OB: Patient presents today for 1st time obstetrics appointment with provider. Patient is currently 11w6d . Patients history has been reviewed in great detail including any potential risks. Patient stated she currently has no complaints. Expectations throughout regarding labs, ultrasounds, and appointments have been discussed with the patient in detail. It was reiterated that the patient is to drink 6-8 glasses of water a day, eat 6 small meals a day, do not consume raw or undercooked meat, and stay away from [facility]. Patient has been consulted regarding any further do's and don'ts of . Patient voiced understanding and all questions and concerns were answered. Scheduled 09/14/24. No orders of the defined types were placed in this encounter. Follow Up: Patient is to return in 4 weeks for routine OB appointment. Documented by Judie Gutierrez LPN on behalf of: Scotty Dhillon DO documented in this encounter [facility] 02-05-2021 Note OPERATIVE NOTE OPERATION DATE: 02-06-21 ANESTHETIC:Spinal with Duramorph. CARDIAC RN:ELVIA Prajapati PREOPERATIVE DIAGNOSIS: 1. Intrauterine at 37 weeks and 3/7 days. 2. Chronic hypertension. 3. Gestational diabetes mellitus, diet controlled. POSTOPERATIVE DIAGNOSIS:Same as above. PROCEDURE NAME:Primary low transverse Caesarean section. URINE OUTPUT: Yellow and clear. BLOOD LOSS:575 mL. FINDINGS: Viable infant, Apgars and weight unknown at this time. [...] patient's uterus and extended laterally digitally. The was then delivered atraumatically after the bladder [...] to the Recovery Room in stable condition. [facility] Signed and Approved by: DR SCOTTY DHILLON . 02/11/2021 11:15:00 [facility] 02-05-2021 Note DISCHARGE SUMMARY Discharge Date: 02-09-21 [...] Tylenol, any abdominal pain unrelieved with narcotics. [facility] Signed and Approved by: DR SCOTTY DHILLON . 02/25/2021 23:13:00 [facility] Evaluation note No assessment inform ation available [facility] Work Phone: Evaluation note Diagnosis 20 weeks gestation of Second trimester state, incidental [facility] Diagnosis Second trimester state, incidental 24 weeks gestation of Diabetes mellitus screening Screening for diabetes mellitus Elevated blood pressure affecting in first trimester, antepartum High blood pressure affecting in first trimester, antepartum Heartburn during in second trimester [facility] Diagnosis Gestational diabetes mellitus (GDM), antepartum, gestational diabetes method of control unspecified- Primary Chronic hypertension affecting [facility] Diagnosis Third trimester state, incidental 28 weeks gestation of Gestational diabetes mellitus (GDM) in third trimester, gestational diabetes method of control unspecified Hypertension, unspecified type ([facility]) Gestational diabetes mellitus (GDM), antepartum, gestational diabetes method of control unspecified Elevated glucose tolerance test Impaired glucose tolerance test [facility] Diagnosis Second trimester state, incidental Abnormal CBC Other abnormal blood chemistry [facility] Diagnosis Screening, , for anatomic survey Encounter for anatomic survey Well woman exam with routine gynecological exam Routine gynecological examination Screen for STD (sexually transmitted disease) Screening examination for venereal disease Vaginal discharge Leukorrhea, not specified as infective Second trimester state, incidental [facility] Diagnosis Third trimester state, incidental 30 weeks gestation of documented in this encounter [facility]InstructionsNot on filedocumented in this encounterProMedica Health SystemInstructionsNot on filedocumented in this encounterProMedica Health System Summary Purpose Family History No [...] and content) DATE CREATED AUTHOR 10/15/2021 [facility] DATE CREATED AUTHOR AUTHOR'S ORGANIZ ATION 02/19/2024 [facility] DATE CREATED AUTHOR AUTHOR'S ORGANIZ ATION 07/17/2024 [facility] DATE CREATED AUTHOR AUTHOR'S ORGANIZ ATION 08/02/2024 [facility] [employer] Care Teams (unrecognized sec tion and content) Team Status: Active Member Role Status Dates Jacques Mccarthy MD Primary Care Provider Active Team Status: Inactive Member Role Status Dates Jacques Mccarthy MD Primary Care Provider Active Start: January 31, 2024 End: January 31, 2024 Terry Dudley DO Emergency Provider Active St art: January 31, 2024 End: January 31, 2024 Renal Nurse Relationship Specialty Start Date End Date Jacques Mccarthy MD [address] [place] [address] PCP - General Family Medicine 02/08/24 Renal Nurse Relationship Specialty Start Date End Date Jacques Mccarthy MD [address] [place] [address] PCP - General Family Medicine 02/08/24 Renal Nurse Relationship Specialty Start Date End Date Jacques Mccarthy MD PCP - General Family Medicine 10/07/20 Renal Nurse Relationship Specialty Start Date End Date Jacques Mccarthy MD [address] [place] [facility] [address] PCP - General Family Medicine 02/08/24 Renal Nurse Relationship Specialty Start Date End Date Jacques Mccarthy MD [address] [place] [facility] [address] PCP - General Family Medicine 02/08/24 Renal Nurse Relationship Specialty Start Date End Date Jacques Mccarthy MD [address] [place] [facility] [address] PCP - General Family Medicine 02/08/24 Renal Nurse Relationship Specialty Start Date End Date Jacques Mccarthy MD PCP - General Family Medicine 10/07/20 Renal Nurse Relationship Specialty Start Date End Date Jacques Mccarthy MD [address] [place] [facility] [address] PCP - General Family Medicine 02/08/24 Renal Nurse Relationship Specialty Start Date End Date Jacques Mccarthy MD [address] [place] [facility] [address] PCP - General Family Medicine 02/08/24 Renal Nurse Relationship Specialty Start Date End Date Jacques Mccarthy MD [address] [place] [facility] [address] PCP - General Family Medicine 02/08/24 Renal Nurse Relationship Specialty Start Date End Date Jacques Mccarthy MD [address] [place] [facility] [address] PCP - General Family Medicine 02/08/24 Renal Nurse Relationship Specialty Start Date End Date Jacques Mccarthy MD [address] [facility] [place] [phone] PCP - General Family Medicine 02/08/24 Renal Nurse Relationship Specialty Start Date End Date Jacques Mccarthy MD [address] [facility] [place] [phone] PCP - General Family Medicine 02/08/24 Goals (unrecognized section and content) Goals may be documented in a n alternate sectionNot on filedocumented as of this encounterNot on filedocumented as of this encounter Reason for Visit (unrecogniz ed section and content) Reason Comments Routine Visit Reason Comments elevated blood glucose levels Hypertension FOR RECORDS PERTAINING TO PATIENTS WHO ARE [...] BE BASED ON THE PRIMARY CLINICAL RECORDS. [employer] provides no warranty or guarantee of the accuracy or completeness of information in this document.
[2024-08-04 14:11] VITALS: BP 162/83; PULSE 118
[2024-08-04 14:41] LABS: Bilirubin Urine NEGATIVE (NEGATIVE); Blood Urine NEGATIVE (NEGATIVE); Clarity Urine CLEAR (CLEAR); Color Urine YELLOW (YELLOW); Glucose Urine UA 500 mg/dL (NEGATIVE); Ketones Urine NEGATIVE (NEGATIVE); Leukocyte Esterase Urine NEGATIVE (NEGATIVE); Nitrite Urine NEGATIVE (NEGATIVE); Protein Urine NEGATIVE (NEG/TRACE); Specific Gravity Urine 1.025 (1.005-1.025); Urobilinogen Urine 0.2 EU/dL (0.2-1.0)
[2024-08-04 14:52] LABS: Urine Microscopic Indicated NO
[2024-08-04] MEDS: 0.9 % SODIUM CHLORIDE 1,000 ML 999 ML IV (15:30)
[2024-08-04 15:38] VITALS: BP 155/73; PULSE 99
[2024-08-04] MEDS: FLUCONAZOLE 150 MG TABLET PO (15:38)
[2024-08-04] MEDS: LABETALOL HCL 100 MG TABLET 300 MG PO (15:38)
[2024-08-04 15:43] LABS: Basophils Absolute Auto 0.1 10^3/uL (0.0-0.1); Basophils Percent Auto 0.3 % (0.2-2.0); Eosinophils Percent Auto 0.1 % (0.9-7.0); Hematocrit 36.4 % (36.0-48.0); Hemoglobin 12.7 g/dL (12.0-16.0); Immature Granulocytes Abs Auto 0.38 10^3/uL (0.00-0.03); Lymphocytes Absolute Auto 1.3 10^3/uL (1.2-3.8); Lymphocytes Percent Auto 6.9 % (20.5-60.0); Mean Corpuscular HGB Conc 34.9 g/dL (29.9-35.2); Mean Corpuscular Hemoglobin 30.2 pg (26.7-34.0); Mean Corpuscular Volume 86.7 fL (81.0-99.0); Mean Platelet Volume 10.4 fL (9.5-13.5); Monocytes Absolute Auto 1.1 10^3/uL (0.3-0.8); Monocytes Percent Auto 5.9 % (1.7-12.0); Neutrophils Absolute Auto 16.1 10^3/uL (1.4-6.5); Neutrophils Percent Auto 84.8 % (43.0-75.0); Platelet Count 275 10^3/uL (150-450); Red Cell Distribution Width 12.1 % (11.0-15.0); White Blood Count 19.1 10^3/uL (4.0-11.0)
[2024-08-04 15:57] LABS: Alanine Aminotransferase 16 U/L (14-59); Aspartate Amino Transferase 9 U/L (15-37); Estimated GFR (African America >60 (>=60 mL/min/1.73m^2); Estimated GFR (Non-African Ame >60 (>=60 mL/min/1.73m^2); Prothrombin Time 10.6 sec (9.0-11.6); Uric Acid 2.8 mg/dL (2.6-6.0)
[2024-08-04 15:58] LABS: Lactate Dehydrogenase 163 U/L (81-234)
[2024-08-04 16:18] LABS: Partial Thromboplastin Time <20.0 sec (22.3-36.2)
[2024-08-04] MEDS: 0.9 % SODIUM CHLORIDE 1,000 ML 125 ML IV (16:29)
[2024-08-04 16:32] VITALS: BP 149/71; PULSE 97
--- NOTE | 2024-08-04 17:46 | US_ITS ---
[address] [address] Patient Name: RADAMES BENJAMIN MRN: [id number] date: 1995 Sex: F Assigned Patient Location: [facility] Current Patient Location: [facility] Accession/Order Number: [id number] Exam Date: 08/04/2024 18:00 Report Date: 08/04/2024 21:12 At the request of: SCOTTY SULLIVAN Procedure: US OB cervical length EXAMINATION: US OB placenta, US OB cervical length HISTORY: abdominal pain COMPARISON: Ultrasound OB incomplete anatomy 07/17/2024 FINDINGS: PLACENTA: Anterior. CERVIX LENGTH: 4.0 cm in length with small amount of fluid within cervical canal. HEART RATE: 149 bpm OTHER: Cephalic presentation. AMNIOTIC FLUID: 13.1 cm (polyhydramnios). US/US OB cervical length IMPRESSION: 1. Anterior placenta without evidence of abruption or subchorionic hematoma. 2. Small amount of fluid within the cervical canal. Cervix is 4.0 cm in length. 3. Single live intrauterine . 4. Polyhydramnios. Electronically authenticated by: MICHELLE LANE Date: 08/04/2024 21:12
--- NOTE | 2024-08-04 17:46 | US_ITS ---
[address] [address] Patient Name: RADAMES BENJAMIN MRN: [id number] date: 1995 Sex: F Assigned Patient Location: [facility] Current Patient Location: [facility] Accession/Order Number: [id number] Exam Date: 08/04/2024 18:00 Report Date: 08/04/2024 21:12 At the request of: SCOTTY SULLIVAN Procedure: US OB placenta EXAMINATION: US OB placenta, US OB cervical length HISTORY: abdominal pain COMPARISON: Ultrasound OB incomplete anatomy 07/17/2024 FINDINGS: PLACENTA: Anterior. CERVIX LENGTH: 4.0 cm in length with small amount of fluid within cervical canal. HEART RATE: 149 bpm OTHER: Cephalic presentation. AMNIOTIC FLUID: 13.1 cm (polyhydramnios). US/US OB placenta IMPRESSION: 1. Anterior placenta without evidence of abruption or subchorionic hematoma. 2. Small amount of fluid within the cervical canal. Cervix is 4.0 cm in length. 3. Single live intrauterine . 4. Polyhydramnios. Electronically authenticated by: MICHELLE LANE Date: 08/04/2024 21:12
[2024-08-04] MEDS: AMPICILLIN SODIUM 2,000 MG in 0.9 % SODIUM CHLORIDE 100 ML 200 MG IV (18:13)
--- NOTE | 2024-08-04 18:30 | PC.NURSE ---
1730: Dr Dhillon called and report given. Orders received. Plan of care discussed with patient and mother. 1735- Up to bathroom and 24 hour urine protein started and efm removed. 1800- Transferred from triage to room 258 ambulatory. 1820- US at bedside for placenta and cervical length.
[2024-08-04 21:17] VITALS: BP 145/75; PULSE 101
[2024-08-04] MEDS: LABETALOL HCL 200 MG TABLET 300 MG PO (23:41)
[2024-08-05] MEDS: 0.9 % SODIUM CHLORIDE 1,000 ML 125 ML IV (00:40)
--- NOTE | 2024-08-05 01:21 | P.OBPN_ITS ---
OB - PN: Subj Subjective Interval history: ptc Narrative: 28 yo presents with complaints of lower abdominal cramping and ctxns, ho of non compliant gestational dm, ho chronic htn, pt complains of mild suprapubic pain, pt denies vb, lof, sve cl thick high, cl 4cm, toco q10min labs reviewed, elevated wbc 19 Exam Constitutional Vital Signs, click to edit/add: Last Vital Signs Pulse 101 H 08/04/24 21:17 BP 145/75 H 08/04/24 21:17 Documenting provider has reviewed patient's vital signs: yes Common normals: no apparent distress Respiratory Common normals: clear to auscultation bilaterally Cardio Common normals: regular rate and regular rhythm GI Common normals: Normal to inspection, nondistended, normoactive bowel sounds present Extremity Common normals: normal to inspection and no calf tenderness Results Labs Labs: Short CBC 08/04/24 Range/Units 14:52 WBC 19.1 H (4.0-11.0) 10^3/uL Hgb 12.7 (12.0-16.0) g/dL Hct 36.4 (36.0-48.0) % Plt Count 275 (150-450) 10^3/uL BMP 08/04/24 14:52 BUN 7.0 Creatinine 0.72 Liver Function 08/04/24 Range/Units 14:52 AST 9 L (15-37) U/L ALT 16 (14-59) U/L Urine 08/04/24 Range/Units 14:10 Urine Color Yellow (YELLOW) Urine Clarity Clear (CLEAR) Urine pH 6.0 (5.0-9.0) Ur Specific [place] 1.025 (1.005-1.025) Urine Protein Negative (NEG/TRACE) mg/dL Urine Glucose (UA) 500 A (NEGATIVE) mg/dL OB - PN: A/P Assessment and Plan (1) Intrauterine : (2) Gestational diabetes mellitus: (3) Chronic hypertension: Assessment and Plan: increase labetalol 300mg po tid, start procardia, iv hydration,iv, iv abx, cont efm, repeat labs in am Time Spent with Patient Time: Total time spent is greater than 50% in coordination of care (as documented) at patient's floor/unit and/or counseling patient: Total time spent with greater than 50% in coordination of care (as documented) at patient's floor/unit and/or counseling patient: less than 15 minutes
[2024-08-05] MEDS: AMPICILLIN SODIUM 1,000 MG in 0.9 % SODIUM CHLORIDE 50 ML 100 MG IV (04:46)
[2024-08-05 04:47] VITALS: BP 141/71
[2024-08-05] MEDS: NIFEdipine 10 MG CAPSULE 20 MG PO (04:47)
[2024-08-05 04:48] VITALS: BP 141/71; PULSE 96
[2024-08-05] MEDS: 0.9 % SODIUM CHLORIDE 1,000 ML 999 ML IV (06:07)
[2024-08-05 06:35] LABS: Basophils Absolute Auto 0.1 10^3/uL (0.0-0.1); Basophils Percent Auto 0.3 % (0.2-2.0); Eosinophils Percent Auto 0.2 % (0.9-7.0); Hematocrit 35.3 % (36.0-48.0); Hemoglobin 12.1 g/dL (12.0-16.0); Immature Granulocytes Abs Auto 0.31 10^3/uL (0.00-0.03); Immature Granulocytes Pct Auto 1.7 % (0.0-0.5); Lymphocytes Absolute Auto 1.4 10^3/uL (1.2-3.8); Lymphocytes Percent Auto 7.9 % (20.5-60.0); Mean Corpuscular HGB Conc 34.3 g/dL (29.9-35.2); Mean Corpuscular Hemoglobin 29.8 pg (26.7-34.0); Mean Corpuscular Volume 86.9 fL (81.0-99.0); Mean Platelet Volume 10.5 fL (9.5-13.5); Monocytes Absolute Auto 1.3 10^3/uL (0.3-0.8); Monocytes Percent Auto 7.1 % (1.7-12.0); Neutrophils Absolute Auto 15.1 10^3/uL (1.4-6.5); Neutrophils Percent Auto 82.8 % (43.0-75.0); Platelet Count 217 10^3/uL (150-450); Red Blood Count 4.06 10^6/uL (4.20-5.40); Red Cell Distribution Width 12.1 % (11.0-15.0); White Blood Count 18.2 10^3/uL (4.0-11.0)
[2024-08-05 06:39] VITALS: BP 127/60; PULSE 107
[2024-08-05] MEDS: LABETALOL HCL 200 MG TABLET 300 MG PO (06:40)
[2024-08-05 06:44] LABS: Alanine Aminotransferase 15 U/L (14-59); Aspartate Amino Transferase 10 U/L (15-37); Estimated GFR (African America >60 (>=60 mL/min/1.73m^2); Estimated GFR (Non-African Ame >60 (>=60 mL/min/1.73m^2); Uric Acid 2.8 mg/dL (2.6-6.0)
[2024-08-05 06:45] LABS: INR 1.03; Partial Thromboplastin Time 22.8 sec (22.3-36.2); Prothrombin Time 10.9 sec (9.0-11.6)
[2024-08-05 07:32] VITALS: BP 133/73; PULSE 100; TEMP 36.8
[2024-08-05 08:03] LABS: Glucometer 117 mg/dL (74-106)
[2024-08-05 10:51] LABS: Fibrinogen 425 mg/dL (200-400)
--- NOTE | 2024-08-05 10:59 | US_ITS ---
[address] [address] Patient Name: RADAMES BENJAMIN MRN: [facility]:[id number] date: 1995 Sex: F Assigned Patient Location: [facility] Current Patient Location: Accession/Order Number: [id number] Exam Date: 08/05/2024 11:25 Report Date: 08/05/2024 12:28 At the request of: SCOTTY SULLIVAN Procedure: US OB BPP wo non-stress EXAM: US OB BPP wo non-stress HISTORY: poly COMPARISON: Ultrasound obstetrical placenta dated 08/04/2024. TECHNIQUE: Routine sonographic biophysical profile. FINDINGS: Single live intrauterine in cephalic presentation with a heart rate of 150 bpm. Sonographic biophysical profile: breathing movements: Adequate, score 2 gross body movements: Adequate, score 2 tone: Adequate, score 2 Qualitative amniotic fluid volume: Adequate, score 2 Total sonographic biophysical profile score: 8/8 Polyhydramnios with the amniotic fluid index measuring 27.2 cm with the largest pocket measuring 8.9 cm on the current examination and 30.1 cm with the largest pocket measuring 10 cm on the previous examination. US/US OB BPP wo non-stress IMPRESSION: Single live intrauterine in cephalic presentation with a heart rate of 150 bpm. Normal sonographic physical profile with a score of 8/8. Stable polyhydramnios with the amniotic fluid index measuring 27.2 cm with the largest pocket measuring 8.9 cm Electronically authenticated by: REMI REESE Date: 08/05/2024 12:28
[2024-08-05 19:16] LABS: Protein Creatinine Ratio Urine 0.24
[2024-08-05 19:19] LABS: Creatinine Urine Random 30.54 mg/dL (20.00-300.00); Total Protein Urine Random 7.4 mg/dL (<=11.9)
== END 2024-08-05 12:19 | disposition home or self-care (01) ==
PROVIDERS: Admitting Provider Obstetrics & Gynecology; PCP Family Medicine; Visit Provider Obstetrics & Gynecology
DX: O10.919 Unspecified pre-existing hypertension complicating pregnancy, unspecified trimester (principal); O24.419 Gestational diabetes mellitus in pregnancy, unspecified control; O40.9XX0 Polyhydramnios, unspecified trimester, not applicable or unspecified; Z3A.00 Weeks of gestation of pregnancy not specified; O26.899 Other specified pregnancy related conditions, unspecified trimester; R10.30 Lower abdominal pain, unspecified
CPT/HCPCS: 36415; 59025; 76815; 76817; 76819; 81003; 82565; 82570; 83615; 84156; 84450; 84460; 84520; 84550; 85025; 85384; 85610; 85730; 96365; 96376; G0378; G0379; J0290

== ENCOUNTER 2024-08-07 21:00 | Observation (INO) | payer OTHER, MEDICAID, SELFPAY ==
[2024-08-07 18:07] VITALS: BP 140/67; PULSE 106
--- NOTE | 2024-08-07 18:27 | US_ITS ---
[address] [address] Patient Name: RADAMES BENJAMIN MRN: [facility]:[id number] date: 1995 Sex: F Assigned Patient Location: [facility] Current Patient Location: [facility] Accession/Order Number: [id number] Exam Date: 08/07/2024 18:35 Report Date: 08/08/2024 08:56 At the request of: SCOTTY SULLIVAN Procedure: US OB BPP w non-stress EXAMINATION: US OB BPP w non-stress HISTORY:GDM COMPARISON: Ultrasound OB biophysical 08/05/2024 TECHNIQUE: Ultrasound biophysical profile was performed in the radiology department. BREATHING MOVEMENTS: 0 GROSS BODY MOVEMENTS: 2 TONE: 2 QUALITATIVE AMNIOTIC FLUID VOLUME: 2 PRESENTATION: Cephalic HEART RATE: 142 bpm AMNIOTIC FLUID VOLUME: 29.8 cm (greater than 95th percentile) GESTATIONAL AGE: 31 weeks 4 days US/US OB BPP w non-stress IMPRESSION: 1. Total biophysical profile score: 6 2. Polyhydramnios. Electronically authenticated by: MICHELLE LANE Date: 08/08/2024 08:56
--- NOTE | 2024-08-07 18:48 | US_ITS ---
[address] [address] Patient Name: RADAMES BENJAMIN MRN: [id number] date: 1995 Sex: F Assigned Patient Location: [facility] Current Patient Location: [facility] Accession/Order Number: [id number] Exam Date: 08/07/2024 19:10 Report Date: 08/07/2024 21:20 At the request of: SCOTTY SULLIVAN Procedure: US OB umbilical artery Examination:US OB umbilical artery INDICATION:non reactive NST COMPARISON:08/05/2023 biophysical profile TECHNIQUE:Limited ultrasonography was performed. FINDINGS:There is a single live intrauterine gestation in cephalic presentation demonstrating spontaneous motion. heartbeat 142 bpm was obtained. A three-vessel cord is visualized. There is normal flow of the umbilical arteries. There is persistent polyhydramnios with JANES of 29.8 cm. The largest pocket of fluid measures 9.2 cm. US/US OB umbilical artery IMPRESSION: Single live intrauterine gestation with spontaneous motion and cardiac activity. presentation is cephalic. A three-vessel cord is visualized demonstrating normal flow. Persistent polyhydramnios as discussed above. Electronically authenticated by: MACARIO HURT Date: 08/07/2024 21:20
[2024-08-07 20:35] LABS: Basophils Absolute Auto 0.1 10^3/uL (0.0-0.1); Basophils Percent Auto 0.3 % (0.2-2.0); Eosinophils Absolute Auto 0.1 10^3/uL (0.0-0.7); Eosinophils Percent Auto 0.6 % (0.9-7.0); Hematocrit 36.7 % (36.0-48.0); Hemoglobin 12.5 g/dL (12.0-16.0); Immature Granulocytes Abs Auto 0.33 10^3/uL (0.00-0.03); Lymphocytes Absolute Auto 1.6 10^3/uL (1.2-3.8); Lymphocytes Percent Auto 9.9 % (20.5-60.0); Mean Corpuscular HGB Conc 34.1 g/dL (29.9-35.2); Mean Corpuscular Hemoglobin 29.7 pg (26.7-34.0); Mean Corpuscular Volume 87.2 fL (81.0-99.0); Mean Platelet Volume 10.5 fL (9.5-13.5); Monocytes Percent Auto 6.3 % (1.7-12.0); Neutrophils Absolute Auto 13.2 10^3/uL (1.4-6.5); Neutrophils Percent Auto 80.9 % (43.0-75.0); Platelet Count 247 10^3/uL (150-450); Red Blood Count 4.21 10^6/uL (4.20-5.40); Red Cell Distribution Width 12.2 % (11.0-15.0); White Blood Count 16.3 10^3/uL (4.0-11.0)
[2024-08-07] MEDS: LACTATED RINGER'S SOLUTION 1,000 ML 150 ML IV (21:25)
[2024-08-07 21:26] VITALS: BP 142/66
[2024-08-07] MEDS: NIFEdipine 10 MG CAPSULE PO (21:26)
[2024-08-07 21:28] VITALS: BP 142/66; PULSE 96
[2024-08-07] MEDS: CEPHALEXIN 500 MG CAPSULE PO (21:29)
[2024-08-07] MEDS: LABETALOL HCL 100 MG TABLET 300 MG PO (21:29)
[2024-08-07 21:33] LABS: Estimated Average Glucose 111 mg/dL; Glycohemoglobin A1C 5.5 % (4.5-6.2)
[2024-08-08] MEDS: LACTATED RINGER'S SOLUTION 1,000 ML 150 ML IV (03:35)
[2024-08-08 06:33] VITALS: BP 141/73
[2024-08-08] MEDS: NIFEdipine 10 MG CAPSULE PO (06:33)
[2024-08-08 06:35] VITALS: BP 141/73; PULSE 87
[2024-08-08] MEDS: CEPHALEXIN 500 MG CAPSULE PO (06:35)
[2024-08-08] MEDS: LABETALOL HCL 100 MG TABLET 300 MG PO (06:35)
[2024-08-08 06:38] LABS: Glucometer 88 mg/dL (74-106)
--- NOTE | 2024-08-08 07:00 | US_ITS ---
[address] [address] Patient Name: RADAMES BENJAMIN MRN: [facility]:[id number] date: 1995 Sex: F Assigned Patient Location: [facility] Current Patient Location: [facility] Accession/Order Number: [id number] Exam Date: 08/08/2024 07:01 Report Date: 08/08/2024 08:57 At the request of: SCOTTY SULLIVAN Procedure: US OB BPP wo non-stress EXAMINATION: US OB BPP wo non-stress HISTORY:repeat BPP, 01/07 COMPARISON: Ultrasound OB biophysical 08/07/2024 TECHNIQUE: Ultrasound biophysical profile was performed in the radiology department. BREATHING MOVEMENTS: 0 GROSS BODY MOVEMENTS: 2 TONE: 2 QUALITATIVE AMNIOTIC FLUID VOLUME: 2 PRESENTATION: CEPHALIC HEART RATE: 142.86 bpm AMNIOTIC FLUID VOLUME: 30.44 cm GESTATIONAL AGE: 31 weeks 5 days US/US OB BPP wo non-stress IMPRESSION: 1. Total biophysical profile score: 6 2. Polyhydramnios. Electronically authenticated by: MICHELLE LANE Date: 08/08/2024 08:57
[2024-08-08 07:50] VITALS: BP 119/58; PULSE 110
[2024-08-08] MEDS: CITALOPRAM HYDROBROMIDE 20 MG TABLET PO (09:18)
[2024-08-08] MEDS: ASPIRIN 81 MG TABLET.DR PO (09:18)
[2024-08-08 09:22] VITALS: BP 137/79; PULSE 98
[2024-08-08 10:23] LABS: Glucometer 111 mg/dL (74-106)
--- NOTE | 2024-08-08 10:45 | PC.NURSE ---
given dc instructions and iv removed, bs 118 and reviewed logging sugars and dietary restrictions at home
[2024-08-14 09:41] LABS: Glucometer 129 mg/dL (74-106)
[2024-08-14 09:42] LABS: Glucometer 108 mg/dL (74-106)
== END 2024-08-08 10:49 | disposition home or self-care (01) ==
LOC: FBCO 21:12 → FBC 21:13
PROVIDERS: Admitting Provider Obstetrics & Gynecology; PCP Family Medicine; Visit Provider Obstetrics & Gynecology
DX: O26.893 Other specified pregnancy related conditions, third trimester (principal); O40.3XX0 Polyhydramnios, third trimester, not applicable or unspecified; Z3A.31 31 weeks gestation of pregnancy
CPT/HCPCS: 36415; 59025; 76818; 76819; 76820; 82948; 83036; 85025; G0378; G0379

== ENCOUNTER 2024-08-10 01:15 | Outpatient (OUT) | payer OTHER, MEDICAID, SELFPAY ==
--- NOTE | 2024-08-10 14:12 | US_ITS ---
[address] [address] Patient Name: RADAMES BENJAMIN MRN: [id number] date: 1995 Sex: F Assigned Patient Location: [facility] Current Patient Location: [facility] Accession/Order Number: [id number] Exam Date: 08/10/2024 14:15 Report Date: 08/10/2024 14:45 At the request of: SCOTTY SULLIVAN Procedure: US OB BPP w non-stress EXAMINATION: US OB BPP w non-stress HISTORY: Gestational diabetes mellitus COMPARISON: No relevant comparison available. TECHNIQUE: Ultrasound biophysical profile was performed in the radiology department. non-reactive stress testing was performed by nursing staff in the birthing center. FINDINGS: BREATHING MOVEMENTS: 2 GROSS BODY MOVEMENTS: 2 TONE: 2 QUALITATIVE AMNIOTIC FLUID VOLUME: 2 PRESENTATION: CEPHALIC HEART RATE: 156.98 bpm AMNIOTIC FLUID VOLUME: 28.3 cm, polyhydramnios GESTATIONAL AGE: 32 weeks 0 days US/US OB BPP w non-stress IMPRESSION: Total biophysical profile score: 8 Polyhydramnios Electronically authenticated by: IRINEO COMBS Date: 08/10/2024 14:45
[2024-08-10 14:41] VITALS: BP 149/74; PULSE 106
--- NOTE | 2024-08-10 15:04 | PC.NURSE ---
Reveiwed importance of monitoring carb and protein intake to maintain blood sugars in expected range. Aware of need for FBS to be 60-94, and 1 hour post meals to be below 140. Pt has been logging blood sugars and Fasting blood sugars are all in range, occasional 1 hours sugar is above 140. Aware to continue to monitor blood sugars and report to Dr Dhillon at office visits. Pt verbalized understanding.
== END 2024-08-10 15:50 | disposition home or self-care (01) ==
LOC: FBCO 01:15 → FBC 14:09
PROVIDERS: PCP Family Medicine; Visit Provider Obstetrics & Gynecology
DX: O24.419 Gestational diabetes mellitus in pregnancy, unspecified control (principal); I10 Essential (primary) hypertension; Z3A.32 32 weeks gestation of pregnancy
CPT/HCPCS: 76818

== ENCOUNTER 2024-08-14 00:38 | Outpatient (OUT) | payer OTHER, MEDICAID, SELFPAY ==
--- OUTSIDE RECORDS SUMMARY | 2024-08-14 00:42 | XMS_ITS | CCD ---
Author Organization [facility] Care Team Providers Care Party Plan Sales Unit Advisor Name Role Phone JACQUIE, DR FAJARDO Consulting [...] MIGUEL ÁNGEL, DR HANNA Primary Care Unavailable [place], DR IRINEO [place] Consulting Unavailable JACQUIE, DR [...] DR FAJARDO Admitting Unavailable DAIANAY, DR HANNA [facility] Unavailable DAIANAY, DR HANNA Primary Care Unavailable JACQUIE, DR FAJARDO Attending Unavailable JACQUIE, DR FAJARDO Admitting Unavailable JACQUIE, DR FAJARDO Attending Unavailable JACQUIE, DR FAJARDO Admitting Unavailable DAIANAY, DR HANNA [facility] Unavailable JACQUIE, DR FAJARDO Consulting Unavailable JACQUIE, DR FAJARDO Attending Unavailable HOY, DR HANNA [facility] Unavailable JACQUIE, DR FAJARDO Admitting Unavailable JACQUIE, DR FAJARDO Admitting Unavailable [place]ST, DR IRINEO [place] Consulting Unavailable MIGUEL ÁNGEL, DR HANNA [facility] Unavailable JACQUIE, DR FAJARDO Attending Unavailable JACQUIE, DR FAJARDO Consulting Unavailable JACQUIE, DR FAJARDO Attending Unavailable MIGUEL ÁNGEL, DR HANNA [facility] Unavailable JACQUIE, DR FAJARDO Admitting Unavailable MD Jacques Mccarthy Primary Care Provider [phone] DO Terry Dudley Emergency Provider [phone] Terry Dudley Admitting Unavailable Terry Dudley Attending Unavailable Jacques Mccarthy Primary Care Unavailable Jacques Mccarthy MD Primary Care Provider [phone] Jacques Mccarthy MD Primary Care Provider [phone] ANICETO FOX Attending Unavailable SCOTTY DHILLON R [...] Glucose Monitoring Suppl (D-Care Glucometer) w/Device kit (8 sources) Start: 07-17-2024 End: 07-17-2025 Blood Glucose [...] (Reorder) isopropyl alcohol 0.7 ml/ml medicated pad (8 sources) Start: 07-17-2024 Alcohol Swabs (Alcohol Prep [...] omeprazole 20 mg delayed release oral capsule (14 sources) Proton Pump Inhibitor Start: End: take [...] Test Name Value Interpretation Reference Range Facility ALL CBC WITH AUTO DIFFon BASOPHILS ABSOLUTE AUTO 0.1 [facility] Basophils/100 WBC (Bld) 0.3 % 0.2 - 2.0 % [facility] Eosinophils/100 WBC (Bld) 0.6 % Low 0.9 - 7.0 % [facility] Erythrocyte distribution width (RBC) [Ratio] 12.2 % 11.0 - 15.0 % [facility] Hematocrit (Bld) [Volume fraction] 36.7 % 36.0 - 48.0 % [facility] Hemoglobin (Bld) [Mass/Vol] 12.5 g/dL 12.0 - 16.0 g/dL [facility] IMMATURE GRANULOCYTES ABS AUTO 0.33 High [facility] Immature granulocytes/100 WBC (Bld) 2 % High 0.0 - 0.5 % [facility] Interpretation and review of laboratory results Abnormal [facility] LYMPHOCYTES ABSOLUTE AUTO 1.6 [facility] Lymphocytes/100 WBC (Bld) 9.9 % Low 20.5 - 60.0 % [facility] MCH (RBC) [Entitic mass] 29.7 pg 26.7 - 34.0 pg [facility] MCHC (RBC) [Mass/Vol] 34.1 g/dL 29.9 - 35.2 g/dL [facility] MCV (RBC) [Entitic vol] 87.2 fL 81.0 - 99.0 fL [facility] MONOCYTES ABSOLUTE AUTO 1 High [facility] Monocytes/100 WBC (Bld) 6.3 % 1.7 - 12.0 % [facility] NEUTROPHILS ABSOLUTE AUTO 13.2 High [facility] Neutrophils/100 WBC (Bld) 80.9 % High 43.0 - 75.0 % [facility] Platelet mean volume (Bld) [Entitic vol] 10.5 fL 9.5 - 13.5 fL [facility] EO # 0.1 [facility] PLT 247 [facility] RBC 4.21 [facility] WBC 16.3 High [facility] ALL CBC WITH AUTO DIFFon BASOPHILS ABSOLUTE AUTO 0.1 [facility] Basophils/100 WBC (Bld) 0.3 % 0.2 - 2.0 % [facility] Eosinophils/100 WBC (Bld) 0.2 % Low 0.9 - 7.0 % [facility] Erythrocyte distribution width (RBC) [Ratio] 12.1 % 11.0 - 15.0 % [facility] Hematocrit (Bld) [Volume fraction] 35.3 % Low 36.0 - 48.0 % [facility] Hemoglobin (Bld) [Mass/Vol] 12.1 g/dL 12.0 - 16.0 g/dL [facility] IMMATURE GRANULOCYTES ABS AUTO 0.31 High [facility] Immature granulocytes/100 WBC (Bld) 1.7 % High 0.0 - 0.5 % [facility] Interpretation and review of laboratory results Abnormal [facility] LYMPHOCYTES ABSOLUTE AUTO 1.4 [facility] Lymphocytes/100 WBC (Bld) 7.9 % Low 20.5 - 60.0 % [facility] MCH (RBC) [Entitic mass] 29.8 pg 26.7 - 34.0 pg [facility] MCHC (RBC) [Mass/Vol] 34.3 g/dL 29.9 - 35.2 g/dL [facility] MCV (RBC) [Entitic vol] 86.9 fL 81.0 - 99.0 fL [facility] MONOCYTES ABSOLUTE AUTO 1.3 High [facility] Monocytes/100 WBC (Bld) 7.1 % 1.7 - 12.0 % [facility] NEUTROPHILS ABSOLUTE AUTO 15.1 High [facility] Neutrophils/100 WBC (Bld) 82.8 % High 43.0 - 75.0 % [facility] Platelet mean volume (Bld) [Entitic vol] 10.5 fL 9.5 - 13.5 fL [facility] EO # 0 [facility] PLT 217 [facility] RBC 4.06 Low [facility] WBC 18.2 High [facility] UA (CLEAN/CATCH) MILIT[employer] EXCHANGE WIRELESS MANAGER/KEYLA RO IF IND.on 08-04-2024 BILIRUBIN URINE Negative NEGATIVE [facility] BLOOD URINE Negative NEGATIVE [facility] Clarity (U) CLEAR CLEAR [facility] Color (U) YELLOW YELLOW [facility] GLUCOSE URINE UA 500 mg/dL Abnormal NEGATIVE [facility] Interpretation and review of laboratory results Abnormal [facility] Ketones Ql (U) Negative NEGATIVE mg/dL [facility] Leukocyte esterase Test strip Ql (U) Negative NEGATIVE [facility] NITRITE URINE Negative NEGATIVE [facility] pH (U) 6.0 [pH] 5.0 - 9.0 [facility] PROTEIN URINE Negative NEG/TRACE mg/dL [facility] SPECIFIC GRAVITY URINE 1.025 1.005 - 1.025 [facility] URINE MICROSCOPIC INDICATED NO [facility] UROBILINOGEN URINE 0.2 EU/dL 0.2 - 1.0 EU/dL [facility] Urinalysis macro (dipstick) panel (U)on 07-31-2024 Bilirubin, UA Negative Negative - 4(70) +++ mg/dL [facility] Blood, UA Positive Negative - 50 Hardeep/mcL [facility] Comment on above: small Clarity, UA Clear [facility] Color, UA Yellow [facility] Glucose, UA Positive Negative - 1999(110) ++++ mg/dL [facility] Comment on above: 250 Interpretation and review of laboratory results Abnormal [facility] Ketones, UA Negative Negative - 160(16) ++++ mg/dL [facility] Leukocytes, UA Negative Negative - 500+++ Renee/mcL [facility] Nitrite, UA Negative Negative - Positive [facility] pH, UA 6 5 - 9 [facility] Protein, UA Trace Negative - 1999(20) ++++ mg/dL [facility] Spec Grav, UA 1.02 1 - 1.03 [facility] Urobilinogen, UA 0.2 0.2 - 12 mg/dL [facility] Urinalysis macro (dipstick) panel (U)on 07-17-2024 Bilirubin, UA Negative Negative - 4(70) +++ mg/dL [facility] Blood, UA Negative Negative - 50 Hardeep/mcL [facility] Clarity, UA Clear [facility] Color, UA Yellow [facility] Glucose, UA Positive Negative - 1999(110) ++++ mg/dL [facility] Comment on above: 500 Interpretation and review of laboratory results Abnormal [facility] Ketones, UA Positive Negative - 160(16) ++++ mg/dL [facility] Comment on above: TRACE Leukocytes, UA Negative Negative - 500+++ Renee/mcL [facility] Nitrite, UA Negative Negative - Positive [facility] pH, UA 5.5 5 - 9 [facility] Protein, UA Negative Negative - 2000(20) ++++ mg/dL [facility] Spec Grav, UA 1.02 1 - 1.03 [facility] Urobilinogen, UA 0.2 0.2 - 12 mg/dL [facility] Glucose random or fasting- P OCTon 07-14-2024 External Glucose Fasting Or Random (Fbs) 169 [facility] ALL CBC WITH AUTO DIFFon BASOPHILS ABSOLUTE AUTO 0.1 [facility] Basophils/100 WBC (Bld) 0.3 % 0.2 - 2.0 % [facility] Eosinophils/100 WBC (Bld) 0.3 % Low 0.9 - 7.0 % [facility] Erythrocyte distribution width (RBC) [Ratio] 12.1 % 11.0 - 15.0 % [facility] Hematocrit (Bld) [Volume fraction] 37.3 % 36.0 - 48.0 % [facility] Hemoglobin (Bld) [Mass/Vol] 12.7 g/dL 12.0 - 16.0 g/dL [facility] IMMATURE GRANULOCYTES ABS AUTO 0.32 High [facility] Immature granulocytes/100 WBC (Bld) 1.8 % High 0.0 - 0.5 % [facility] Interpretation and review of laboratory results Abnormal [facility] LYMPHOCYTES ABSOLUTE AUTO 1.5 [facility] Lymphocytes/100 WBC (Bld) 8.3 % Low 20.5 - 60.0 % [facility] MCH (RBC) [Entitic mass] 30.3 pg 26.7 - 34.0 pg [facility] MCHC (RBC) [Mass/Vol] 34 g/dL 29.9 - 35.2 g/dL [facility] MCV (RBC) [Entitic vol] 89 fL 81.0 - 99.0 fL [facility] MONOCYTES ABSOLUTE AUTO 0.9 High [facility] Monocytes/100 WBC (Bld) 5.2 % 1.7 - 12.0 % [facility] NEUTROPHILS ABSOLUTE AUTO 15 High [facility] Neutrophils/100 WBC (Bld) 84.1 % High 43.0 - 75.0 % [facility] Platelet mean volume (Bld) [Entitic vol] 10.4 fL 9.5 - 13.5 fL [facility]1 [facility] PLT 255 [facility] RBC 4.19 Low [facility] WBC 17.8 High [facility] Urinalysis macro (dipstick) panel (U)on 06-15-2024 Bilirubin, UA Negative Negative - 4(70) +++ mg/dL [facility] Blood, UA Negative Negative - 50 Hardeep/mcL [facility] Clarity, UA Clear [facility] Color, UA Yellow [facility] Glucose, UA Positive Negative - 1999(110) ++++ mg/dL [facility] Interpretation and review of laboratory results Abnormal [facility] Ketones, UA Negative Negative - 160(16) ++++ mg/dL [facility] Leukocytes, UA Positive Negative - 500+++ Renee/mcL [facility] Nitrite, UA Negative Negative - Positive [facility] pH, UA 5.5 5 - 9 [facility] Protein, UA Negative Negative - 1999(20) ++++ mg/dL [facility] Spec Grav, UA 1.02 1 - 1.03 [facility] Urobilinogen, UA 1.0 0.2 - 12 mg/dL [facility] Urinalysis macro (dipstick) panel (U)on 05-18-2024 Bilirubin, UA Negative Negative - 4(70) +++ mg/dL [facility] Blood, UA Negative Negative - 50 Hardeep/mcL [facility] Clarity, UA Clear [facility] Color, UA Yellow [facility] Glucose, UA Negative Negative - 1999(110) ++++ mg/dL [facility] Interpretation and review of laboratory results Normal [facility] Ketones, UA Negative Negative - 160(16) ++++ mg/dL [facility] Leukocytes, UA Negative Negative - 500+++ Renee/mcL [facility] Nitrite, UA Negative Negative - Positive [facility] pH, UA 7 5 - 9 [facility] Protein, UA Negative Negative - 1999(20) ++++ mg/dL [facility] Spec Grav, UA 1.025 1 - 1.03 [facility] Urobilinogen, UA 0.2 0.2 - 12 mg/dL [facility] Urinalysis macro (dipstick) panel (U)on 04-20-2024 Bilirubin, UA Positive Negative - 4(70) +++ mg/dL [facility] Comment on above: small Blood, UA Negative Negative - 50 Hardeep/mcL [facility] Clarity, UA Clear [facility] Color, UA Yellow [facility] Glucose, UA Negative Negative - 2000(110) ++++ mg/dL [facility] Interpretation and review of laboratory results Abnormal [facility] Ketones, UA Positive Negative - 160(16) ++++ mg/dL [facility] Comment on above: trace Leukocytes, UA Negative Negative - 500+++ Renee/mcL [facility] Nitrite, UA Negative Negative - Positive [facility] pH, UA 6.5 5 - 9 [facility] Protein, UA Trace Negative - 2000(20) ++++ mg/dL [facility] Spec Grav, UA 1.030 1 - 1.03 [facility] Urobilinogen, UA 1.0 0.2 - 12 mg/dL [facility] Activated partial thrombopla stin time (aPTT) in platelet poor plasma by coagulation aOrdered By: Terry Dudley on 01-31-2024 aPTT Coag (PPP) [Time] 26.1 s 25.1-36.5 [facility] Comment on above: A hematocrit value g reater than 55% may lead to inaccurate results in coagulation testing. Patients having hematocrit values >55% require a special collection tube for coagulation studies. Please contact the laboratory at [phone] for redraw instructions. Alanine aminotransferase [En zymatic activity/volume] in Serum or PlasmaOrdered By: Terry Dudley on 01-31-2024 ALT [Catalytic activity/Vol] 22 U/L Normal 7-52 [facility] Comment on above: Performed By: #### H S TROP, PTT, CMP, DDIMER, BNP, CK, PT, CBC #### [address] Albumin [Mass/volume] in Ser um or Plasma by Bromocresol green (BCG) dye binding methoOrdered By: Terry Dudley on 01-31-2024 Albumin BCG dye [Mass/Vol] 4.7 g/dL 3.5-5.7 [facility] Alkaline phosphatase [Enzyma tic activity/volume] in Serum or PlasmaOrdered By: Terry Dudley on 01-31-2024 ALP [Catalytic activity/Vol] 67 U/L Normal 34-104 [facility] Comment on above: Performed By: #### H S TROP, PTT, CMP, DDIMER, BNP, CK, PT, CBC #### [address] Aspartate aminotransferase [ Enzymatic activity/volume] in Serum or PlasmaOrdered By: Terry Dudley on 01-31-2024 AST [Catalytic activity/Vol] 17 U/L Normal 13-39 [facility] Comment on above: Performed By: #### H S TROP, PTT, CMP, DDIMER, BNP, CK, PT, CBC #### [address] Automated basophil %Ordered By: Terry Dudley on 01-31-2024 Basophils/100 WBC (Bld) 0.6 % Normal . [facility] Comment on above: Performed By: #### H S TROP, PTT, CMP, DDIMER, BNP, CK, PT, CBC #### [address] Automated basophil countOrde red By: Terry Dudley on 01-31-2024 Basophils (Bld) [#/Vol] 0.1 10*3/uL Normal 0.0-0.2 [facility] Comment on above: Result Comment: PERF ORMED BY: [place] [address] PATHOLOGIST AUTOMATIC QUILLING MACHINE OPERATOR CARLOS HITCHCOCK M.D. Performed By: #### H S TROP, PTT, CMP, DDIMER, BNP, CK, PT, CBC #### [address] Automated blood monocyte cou ntOrdered By: Terry Dudley on 01-31-2024 Monocytes (Bld) [#/Vol] 1.3 10*3/uL High 0.0-0.8 [facility] Comment on above: Performed By: #### H S TROP, PTT, CMP, DDIMER, BNP, CK, PT, CBC #### [address] Automated eosinophil %Ordere d By: Terry Dudley on 01-31-2024 Eosinophils/100 WBC (Bld) 0.3 % Normal . [facility] Comment on above: Performed By: #### H S TROP, PTT, CMP, DDIMER, BNP, CK, PT, CBC #### [address] Automated eosinophil countOr dered By: Terry Dudley on 01-31-2024 Eosinophils (Bld) [#/Vol] 0.1 10*3/uL Normal 0.0-0.45 [facility] Comment on above: Performed By: #### H S TROP, PTT, CMP, DDIMER, BNP, CK, PT, CBC #### [address] Automated monocyte %Ordered By: Terry Dudley on 01-31-2024 Monocytes/100 WBC (Bld) 7.5 % Normal . [facility] Comment on above: Performed By: #### H S TROP, PTT, CMP, DDIMER, BNP, CK, PT, CBC #### [address] Automated neutrophil %Ordere d By: Terry Dudley on 01-31-2024 Neutrophils/100 WBC (Bld) 79.8 % Normal . [facility] Comment on above: Performed By: #### H S TROP, PTT, CMP, DDIMER, BNP, CK, PT, CBC #### [address] BNP ser/plasOrdered By: Delgado Dudley on 01-31-2024 Natriuretic peptide B (Bld) [Mass/Vol] 30.0 pg/mL Normal 5-100 [facility] Comment on above: Result Comment: PERF ORMED BY: [place] [address] PATHOLOGIST AUTOMATIC QUILLING MACHINE OPERATOR CARLOS HITCHCOCK M.D. Performed By: #### H S TROP, PTT, CMP, DDIMER, BNP, CK, PT, CBC #### [facility] [address] Bilirubin Test strip Ql (U)O rdered By: Terry Dudley on 01-31-2024 Bilirubin Ql (U) Negative Negative [facility] Bilirubin.total [Mass/volume ] in Serum or PlasmaOrdered By: Terry Dudley on 01-31-2024 Bilirubin [Mass/Vol] 0.5 mg/dL Normal 0.3-1.0 [facility] Comment on above: Performed By: #### H S TROP, PTT, CMP, DDIMER, BNP, CK, PT, CBC #### [facility] [address] Calcium [Mass/volume] in Ser um or PlasmaOrdered By: Terry Dudley on 01-31-2024 Calcium [Mass/Vol] 9.6 mg/dL Normal 8.6-10.3 [facility] Comment on above: Performed By: #### H S TROP, PTT, CMP, DDIMER, BNP, CK, PT, CBC #### [facility] [address] Carbon dioxide, total [Moles /volume] in Serum or PlasmaOrdered By: Terry Dudley on 01-31-2024 CO2 [Moles/Vol] 30.1 mmol/L Normal 21.0-31.0 [facility] Comment on above: Performed By: #### H S TROP, PTT, CMP, DDIMER, BNP, CK, PT, CBC #### [facility] [address] [place] [address] [place] Chloride [Moles/volume] in S marty or PlasmaOrdered By: Terry Dudley on 01-31-2024 Chloride [Moles/Vol] 101 mmol/L Normal 98-107 [facility] Comment on above: Performed By: #### H S TROP, PTT, CMP, DDIMER, BNP, CK, PT, CBC #### [facility] [address] [place] [address] [place] Color of Urine by AutoOrdere d By: Terry Dudley on 01-31-2024 Color (U) Colorless Normal Yellow [facility] Comment on above: Order Comment: Name Collection Type:: Clean-Voided Midstream Performed By: #### U [place], UHCG #### [address] Complete Blood Count Auto Di ffon 01-31-2024 Mean Corpuscular HGB Conc 34.6 g/dL Normal 32.0-35.0 [facility] Comment on above: Performed By: #### H S TROP, PTT, CMP, DDIMER, BNP, CK, PT, CBC #### [address] Monocytes/100 WBC (Bld) 14.85 % Normal 0.00-20.00 [facility] Comment on above: Performed By: #### H S TROP, PTT, CMP, DDIMER, BNP, CK, PT, CBC #### [address] NRBC% 0.0 /100{WBC} Normal 0-0.5 [facility] Comment on above: Performed By: #### H S TROP, PTT, CMP, DDIMER, BNP, CK, PT, CBC #### [address] Comprehensive Metabolic Pane urszula 01-31-2024 Albumin [Mass/Vol] 4.7 g/dL Normal 3.5-5.7 [facility] Comment on above: Performed By: #### H S TROP, PTT, CMP, DDIMER, BNP, CK, PT, CBC #### [address] Creatinine Clr Calc Pharmacy 119.17 Normal [facility] Comment on above: Result Comment: PERF ORMED BY: [place] [address] PATHOLOGIST AUTOMATIC QUILLING MACHINE OPERATOR CARLOS HITCHCOCK M.D. Performed By: #### H S TROP, PTT, CMP, DDIMER, BNP, CK, PT, CBC #### [place] [address] [place] GFR/1.73 sq M.predicted MDRD (S/P/Bld) [Vol rate/Area] mL/min/{1.73_m2} Normal [facility] Comment on above: Performed By: #### H S TROP, PTT, CMP, DDIMER, BNP, CK, PT, CBC #### [facility] [address] Creatine kinase [Enzymatic a ctivity/volume] in Serum or PlasmaOrdered By: Terry Dudley on 01-31-2024 CK [Catalytic activity/Vol] 76 U/L Normal 30-223 [facility] Comment on above: Performed By: #### H S TROP, PTT, CMP, DDIMER, BNP, CK, PT, CBC #### [facility] [address] Creatinine [Mass/volume] in Serum or PlasmaOrdered By: Terry Dudley on 01-31-2024 Creatinine [Mass/Vol] 0.80 mg/dL Normal 0.60-1.20 [facility] Comment on above: Performed By: #### H S TROP, PTT, CMP, DDIMER, BNP, CK, PT, CBC #### [address] D-Dimer High Sensitivityon 0 - D-Dimer High Sensitivity < 200 Normal 0-243 [facility] Comment on above: Result Comment: [...] coagulation studies. Please contact the laboratory at [phone] for redraw instructions. PERFORMED BY: [place] [address] PATHOLOGIST AUTOMATIC QUILLING MACHINE OPERATOR CARLOS HITCHCOCK M.D. Performed By: #### H S TROP, PTT, CMP, DDIMER, BNP, CK, PT, CBC #### [facility] [address] [place], [place] [id number] [facility] [[email or web address]] ECG 12 lead ECGon 01-31-2024 ECG 12 lead ECG [facility] [place] [address] [place] [address] Electrocardiograph Report Signed Patient: Samantha Taylor MR#: [id number] : 1995 Acct:[id number] Age/Sex: 28 / F ADM Date: 01/31/24 Loc: ER Room: Type: [facility] ER Attending Dr: Ordering Provider: Terry Dudley [...] By Terry Dudley DO 1923 Normal [facility] Erythrocyte distribution wid th [Ratio] by Automated countOrdered By: Terry Dudley on 01-31-2024 Erythrocyte distribution width (RBC) [Ratio] 12.4 % Normal 11.9-15.3 [facility] Comment on above: Performed By: #### H S TROP, PTT, CMP, DDIMER, BNP, CK, PT, CBC #### [place] [id number] [place] Erythrocytes [#/volume] in B lood by Automated countOrdered By: Terry Dudley on 01-31-2024 RBC (Bld) [#/Vol] 4.93 10*6/uL Normal 3.60-5.00 [facility] Comment on above: Performed By: #### H S TROP, PTT, CMP, DDIMER, BNP, CK, PT, CBC #### [facility] [address] [place] [address] [facility] [[email or web address]] Fibrin D-dimer [Presence] in Platelet poor plasma by Latex agglutinationOrdered By: Terry Luis Enrique on 01-31-2024 Fibrin D-dimer LA Ql (PPP) < 200 ng/mL 0-243 [facility] Comment on above: The reference range for [...] coagulation studies. Please contact the laboratory at [phone] for redraw instructions. Glucose [Mass/volume] in Ser um or PlasmaOrdered By: Terrythom Dudley on 01-31-2024 Glucose [Mass/Vol] 91 mg/dL Normal 70-100 [facility] Comment on above: ADA recommended refe rence rangeRandom Glucose Reference Range is dependent on time and content of last meal. Glucose of more than 200 mg/dL in a nonstressed, ambulatory subject supports the diagnosis of Diabetes Mellitus. Result Comment: [place] om Glucose Reference Range is dependent on time and content of last meal. Glucose of more than 200 mg/dL in a nonstressed, ambulatory subject supports the diagnosis of Diabetes Mellitus. ADA recommended reference range Performed By: #### H S TROP, PTT, CMP, DDIMER, BNP, CK, PT, CBC #### [facility] [address] [place] [address] Glucose [Mass/volume] in Uri ne by Test stripOrdered By: Terry Dudley on 01-31-2024 Glucose Test strip (U) [Mass/Vol] Normal mg/dL Normal [facility] HCG ( test) [place].rapi d Ql (U)Ordered By: Terry Dudley on 01-31-2024 HCG ( test) Ql (U) Positive High [facility] HCG,Urineon 01-31-2024 Beta HCG ( test) Ql (U) Positive [facility] Comment on above: Order Comment: Name Collection Type:: Clean-Voided Midstream Result Comment: PERF ORMED BY: [place] [address] PATHOLOGIST AUTOMATIC QUILLING MACHINE OPERATOR CARLOS HITCHCOCK M.D. Performed By: #### H S TROP, PTT, CMP, DDIMER, BNP, CK, PT, CBC #### [address] Hematocrit [Volume Fraction] of Blood by Automated countOrdered By: Terry Dudley on 01-31-2024 Hematocrit (Bld) [Volume fraction] 45.1 % Normal 34.0-46.4 [facility] Comment on above: Performed By: #### H S TROP, PTT, CMP, DDIMER, BNP, CK, PT, CBC #### [address] Hemoglobin Test strip Ql (U) Ordered By: Terry Dudley on 01-31-2024 Hemoglobin Ql (U) Negative Negative [facility] Hemoglobin [Mass/volume] in BloodOrdered By: Terry Dudley on 01-31-2024 Hemoglobin (Bld) [Mass/Vol] 15.6 g/dL High 11.8-15.4 [facility] Comment on above: Performed By: #### H S TROP, PTT, CMP, DDIMER, BNP, CK, PT, CBC #### [address] INR in Platelet poor plasma by Coagulation assayOrdered By: Terry Dudley on 01-31-2024 INR Coag (PPP) [Relative time] 1.2 {INR} Normal [facility] Comment on above: INR Therapeutic Rang e [...] CMP, DDIMER, BNP, CK, PT, CBC #### [facility] [address] [place] [address] [place] Ketones [Presence] in Urine by Test stripOrdered By: Terry Dudley on 01-31-2024 Ketones Ql (U) Negative Normal Negative [facility] Comment on above: Order Comment: Name Collection Type:: Clean-Voided Midstream Performed By: #### U A, UHCG #### [facility] [address] [place] [address] [place] Leukocyte esterase [Presence ] in Urine by Test stripOrdered By: Terry Dudley on 01-31-2024 Leukocyte esterase Test strip Ql (U) Negative Normal Negative [facility] Comment on above: Order Comment: Name Collection Type:: Clean-Voided Midstream Performed By: #### U A, UHCG #### [facility] [address] [place] [address] [place] Leukocytes [#/volume] correc edna for nucleated erythrocytes in Blood by Automated counOrdered By: Terry Dudley on 01-31-2024 WBC corrected for nucl RBC Auto (Bld) [#/Vol] 17.5 10*3/uL High 3.8-11.6 [facility] Leukocytes [#/volume] in Blo od by Automated countOrdered By: Terry Dudley on 01-31-2024 WBC (Bld) [#/Vol] 17.5 10*3/uL High 3.8-11.6 [facility] Comment on above: Performed By: #### H S TROP, PTT, CMP, DDIMER, BNP, CK, PT, CBC #### [facility] [address] Lymphocytes [#/volume] in Bl ood by Automated countOrdered By: Terry Dudley on 01-31-2024 Lymphocytes (Bld) [#/Vol] 2.1 10*3/uL Normal 1.00-4.8 [facility] Comment on above: Performed By: #### H S TROP, PTT, CMP, DDIMER, BNP, CK, PT, CBC #### [facility] [address] Lymphocytes/100 leukocytes i n Blood by Automated countOrdered By: Terry Dudley on 01-31-2024 Lymphocytes/100 WBC (Bld) 11.8 % Normal . [facility] Comment on above: Performed By: #### H S TROP, PTT, CMP, DDIMER, BNP, CK, PT, CBC #### [facility] [address] [place] [address] MCH [Entitic mass] by Automa edna countOrdered By: Terry Dudley on 01-31-2024 MCH (RBC) [Entitic mass] 31.7 pg Normal 24.7-34.3 [facility] Comment on above: Performed By: #### H S TROP, PTT, CMP, DDIMER, BNP, CK, PT, CBC #### [facility] [address] [place] [address] MCHC Auto (RBC) [Mass/Vol]Or dered By: Terry Dudley on 01-31-2024 MCHC (RBC) [Mass/Vol] 34.6 g/dL 32.0-35.0 [facility] MCV [Entitic volume] by Auto mated countOrdered By: Terry Dudley on 01-31-2024 MCV (RBC) [Entitic vol] 91.4 fL Normal 80-100 [facility] Comment on above: Performed By: #### H S TROP, PTT, CMP, DDIMER, BNP, CK, PT, CBC #### [facility] [address] Monocyte distribution width [Entitic volume] in Blood by AutomatedOrdered By: Terry Dudley on 01-31-2024 Monocyte distribution width Auto (Bld) [Entitic vol] 14.85 % 0.00-20.00 [facility] Neutrophils [#/volume] in Bl ood by Automated countOrdered By: Terry Dudley on 01-31-2024 Neutrophils (Bld) [#/Vol] 14.0 10*3/uL High 1.8-7.7 [facility] Comment on above: Performed By: #### H S TROP, PTT, CMP, DDIMER, BNP, CK, PT, CBC #### [facility] [address] Nitrite Test strip Ql (U)Ord ered By: Terry Dudley on 01-31-2024 Nitrite Ql (U) Negative Negative [facility] No Panel InformationOrdered By: Terry Dudley on 01-31-2024 Estimated GFR (CKD-EPI) > 60.0 mL/Min [facility] Creatinine Clearance (Chem 119.17 [facility] Nucleated erythrocytes [Pres ence] in Blood by Automated countOrdered By: Terry Dudley on 01-31-2024 Nucleated RBC Auto Ql (Bld) 0.0 /100{WBC} 0-0.5 [facility] Partial Thromboplastin Timeo n 01-31-2024 aPTT Coag (Bld) [Time] 26.1 s Normal 25.1-36.5 [facility] Comment on above: Result Comment: A he matocrit value greater than 55% may lead to inaccurate results in coagulation testing. Patients having hematocrit values >55% require a special collection tube for coagulation studies. Please contact the laboratory at [phone] for redraw instructions. Performed By: #### H S TROP, PTT, CMP, DDIMER, BNP, CK, PT, CBC #### [facility] [address] [place] [address] Platelet mean volume [Entiti c volume] in Blood by Automated countOrdered By: Terry Dudley on 01-31-2024 Platelet mean volume (Bld) [Entitic vol] 8.7 fL Normal 6.3-10.7 [facility] Comment on above: Performed By: #### H S TROP, PTT, CMP, DDIMER, BNP, CK, PT, CBC #### [address] Platelets [#/volume] in Bloo d by Automated countOrdered By: Terry Dudley on 01-31-2024 Platelets (Bld) [#/Vol] 297 10*3/uL Normal 150-450 [facility] Comment on above: Performed By: #### H S TROP, PTT, CMP, DDIMER, BNP, CK, PT, CBC #### [address] Potassium [Moles/volume] in Serum or PlasmaOrdered By: Terry Dudley on 01-31-2024 Potassium [Moles/Vol] 3.4 mmol/L Low 3.5-5.1 [facility] Comment on above: Performed By: #### H S TROP, PTT, CMP, DDIMER, BNP, CK, PT, CBC #### [address] Protein Test strip (U) [Mass /Vol]Ordered By: Terry Dudley on 01-31-2024 Protein (U) [Mass/Vol] Negative Negative [facility] Protein [Mass/volume] in Ser um or PlasmaOrdered By: Terry Dudley on 01-31-2024 Protein [Mass/Vol] 7.7 g/dL Normal 6.4-8.9 [facility] Comment on above: Performed By: #### H S TROP, PTT, CMP, DDIMER, BNP, CK, PT, CBC #### [address] Prothrombin time (PT)Ordered By: Terry Dudley on 01-31-2024 PT Coag (PPP) [Time] 14.0 s High 9.0-12.9 [facility] Comment on above: A hematocrit value g reater than 55% may lead to inaccurate results in coagulation testing. Patients having hematocrit values >55% require a special collection tube for coagulation studies. Please contact the laboratory at [phone] for redraw instructions. Result Comment: A he matocrit value greater than 55% may lead to inaccurate results in coagulation testing. Patients having hematocrit values >55% require a special collection tube for coagulation studies. Please contact the laboratory at [phone] for redraw instructions. Performed By: #### H S TROP, PTT, CMP, DDIMER, BNP, CK, PT, CBC #### [facility] [address] [place] [address] Serum globulin measurement b y calculation (mass/volume)Ordered By: Terry Dudley on 01-31-2024 Globulin (S) [Mass/Vol] 3.0 g/dL [facility] Comment on above: Performed By: #### H S TROP, PTT, CMP, DDIMER, BNP, CK, PT, CBC #### [address] Serum or plasma albumin/glob ulin mass ratioOrdered By: Terry Dudley on 01-31-2024 Albumin/Globulin [Mass ratio] 1.6 {ratio} [facility] Comment on above: Performed By: #### H S TROP, PTT, CMP, DDIMER, BNP, CK, PT, CBC #### [facility] [address] [place] [address] Serum or plasma anion gap de terminationOrdered By: Terry Dudley on 01-31-2024 Anion gap [Moles/Vol] 8.3 mmol/L Normal 6.0-15.0 [facility] Comment on above: Performed By: #### H S TROP, PTT, CMP, DDIMER, BNP, CK, PT, CBC #### [address] Sodium [Moles/volume] in Ser um or PlasmaOrdered By: Terry Dudley on 01-31-2024 Sodium [Moles/Vol] 136 mmol/L Normal 136-145 [facility] Comment on above: Performed By: #### H S TROP, PTT, CMP, DDIMER, BNP, CK, PT, CBC #### [facility] [address] Specific gravity Test strip (U) [Rel density]Ordered By: Terry Dudley on 01-31-2024 Specific gravity (U) [Rel density] 1.005 1.001-1.03 0 [facility] Troponin I High Sensitivityo n 01-31-2024 Troponin I High Sensitivity 3.5 pg/mL Normal 0.0-15.0 [facility] Comment on above: Result Comment: PERF ORMED BY: [place] [address] PATHOLOGIST AUTOMATIC QUILLING MACHINE OPERATOR CARLOS HITCCHOCK M.D. Performed By: #### H S TROP, PTT, CMP, DDIMER, BNP, CK, PT, CBC #### [address] Troponin I.cardiac [Mass/vol ume] in Serum or Plasma by Detection limit <= 0.01 ng/Ordered By: Terry Dudley on 01-31-2024 Troponin I.cardiac DL <= 0.01 ng/mL [Mass/Vol] 3.5 pg/mL 0.0-15.0 [facility] Urea nitrogen [Mass/volume] in Serum or PlasmaOrdered By: Terry Dudley on 01-31-2024 Urea nitrogen [Mass/Vol] 10 mg/dL Normal 7-25 [facility] Comment on above: Performed By: #### H S TROP, PTT, CMP, DDIMER, BNP, CK, PT, CBC #### [facility] [address] Urinalysison 01-31-2024 Bilirubin,Urine Negative Normal Negative [facility] Comment on above: Order Comment: Name Collection Type:: Clean-Voided Midstream Performed By: #### U A, UHCG #### [address] Glucose Ql (U) Normal Normal Normal [facility] Comment on above: Order Comment: Name Collection Type:: Clean-Voided Midstream Performed By: #### U A, UHCG #### [place] [address] [place] Nitrite,Urine Negative Normal Negative [facility] Comment on above: Order Comment: Name Collection Type:: Clean-Voided Midstream Performed By: #### U A, UHCG #### [place] [address] [place] Occult Blood,Urine Negative Normal Negative [facility] Comment on above: Order Comment: Name Collection Type:: Clean-Voided Midstream Performed By: #### U A, UHCG #### [place] [address] [place] Protein,Urine Negative Normal Negative [facility] Comment on above: Order Comment: Name Collection Type:: Clean-Voided Midstream Performed By: #### U A, UHCG #### [address] Specificy [place],Urine 1.005 Normal 1.001-1.03 0 [facility] Comment on above: Order Comment: Name Collection Type:: Clean-Voided Midstream Performed By: #### U A, UHCG #### [address] Urobilinogen,Urine Normal Normal Normal [facility] Comment on above: Order Comment: Name Collection Type:: Clean-Voided Midstream Performed By: #### U A, UHCG #### [address] Urine appearanceOrdered By: Terry Dudley on 01-31-2024 Appearance (U) Clear Normal Clear [facility] Comment on above: Order Comment: Name Collection Type:: Clean-Voided Midstream Performed By: #### U A, UHCG #### [address] Urobilinogen Test strip (U) [Mass/Vol]Ordered By: Terry Dudley on 01-31-2024 Urobilinogen (U) [Mass/Vol] Normal mg/dL Normal [facility] pH of Urine by Test stripOrd ered By: Terry Dudley on 01-31-2024 pH (U) 6.5 [pH] Normal 5.0-9.0 [facility] Comment on above: Order Comment: Name Collection Type:: Clean-Voided Midstream Performed By: #### U A, UHCG #### [facility] [address] PAP ACOG PANEL 2: 23 to 31on 10-14-2021 . . Normal [facility] Comment on above: Performed By: #### P TT #### [facility] [address] [address] Kaela Dimas Age Gdln ACOG Testing [facility] Comment on above: Performed By: #### P TT #### [facility] [address] [place] [address] Kaela Dimas DIAGNOSIS: Comment [facility] Comment on above: Result Comment: NEGA TIVE FOR INTRAEPITHELIAL LESION OR MALIGNANCY. CELLULAR CHANGES ASSOCIATED WITH INFLAMMATION ARE PRESENT. Performed By: #### P TT #### [facility] [address] [address] Kaela Dimas Methodology: Comment [facility] Comment on above: Result Comment: This liquid based ThinPrep(R) pap test was screened with the use of an image guided system. Performed By: #### P TT #### [facility] [address] [address] Kaela Dimas Note: Comment Normal [facility] Comment on above: Result Comment: The Pap smear is a screening test designed to aid in the detection of premalignant and malignant conditions of the uterine cervix. It is not a diagnostic procedure and should not be used as the sole means of detecting cervical cancer. Both false-positive and false-negative reports do occur. . Performed By: #### P TT #### [facility] [address] [address] Kaela Dimas Performed by: Comment [facility] Comment on above: Result Comment: Nancy Collins, Equipment Sterilizer (ASCP) Performed By: #### P TT #### [facility] [address] [place] [address] Kaela Judie Reflex Criteria: Comment Normal [facility] Comment on above: Result Comment: The HPV DNA reflex criteria were not met with this specimen result therefore, no HPV testing was performed. . Performed By: #### P TT #### [facility] [address] [place] [address] Kaela Judie Specimen adequacy: Comment Normal [facility] Comment on above: Result Comment: Sati sfactory for evaluation. Endocervical and/or squamous metaplastic cells (endocervical component) are present. Performed By: #### P TT #### [facility] [address] [place] [address] Kaela Judie CBC AUTO DIFFon 02-07-2021 BASO # 0.1 103/ul Normal 0.0-0.1 [facility] Comment on above: Performed By: #### C BC #### [facility] [address] [place] [address] Kaela Judie Basophils/100 WBC (Bld) 0.3 % Normal 0.2-2.0 [facility] Comment on above: Performed By: #### C BC #### [facility] [address] [place] [address] Kaela Judie EO # 0.1 103/ul Normal 0.0-0.7 [facility] Comment on above: Performed By: #### C BC #### [facility] [address] [place] [address] Kaela Judie Eosinophils/100 WBC (Bld) 0.5 % Critically low 0.9-7.0 [facility] Comment on above: Performed By: #### C BC #### [facility] [address] [place] [address] Kaela Juide Erythrocyte distribution width (RBC) [Ratio] 12.3 % Normal 11.0-15.0 [facility] Comment on above: Performed By: #### C BC #### [facility] [address] [place] [address] Kaela Judie Hematocrit (Bld) [Volume fraction] 33.8 % Critically low 36.0-48.0 [facility] Comment on above: Performed By: #### C BC #### [facility] [address] [place] [address] Kaela Dimas Hemoglobin (Bld) [Mass/Vol] 11.6 g/dL Critically low 12.0-16.0 [facility] Comment on above: Performed By: #### C BC #### [facility] [address] [place] [address] Kaelastephanie Dimas IG # 0.20 10e3/ul Critically high 0.00-0.03 [facility] Comment on above: Performed By: #### C BC #### [facility] [address] [place] [address] Kaela Dimas IG % 1.2 % Critically high 0.0-0.5 [facility] Comment on above: Performed By: #### C BC #### [facility] [address] [place] [address] Kaela Dimas LYMPH # 1.6 103/ul Normal 1.2-3.8 [facility] Comment on above: Performed By: #### C BC #### [facility] [address] [place] [address] Kaela Dimas Lymphocytes/100 WBC (Bld) 9.2 % Critically low 20.5-60.0 [facility] Comment on above: Performed By: #### C BC #### [facility] [address] [place] [address] Kaela Dimas MANUAL DIFF REQ NO Normal [facility] Comment on above: Performed By: #### C BC #### [facility] [address] [place] [address] Kaela Dimas MCH (RBC) [Entitic mass] 30.8 pg Normal 26.7-34.0 [facility] Comment on above: Performed By: #### C BC #### [facility] [address] [place] [address] Kaelastephanie Dimas MCHC (RBC) [Mass/Vol] 34.3 g/dL Normal 29.9-35.2 [facility] Comment on above: Performed By: #### C BC #### [facility] [address] [place], [place] [address] Kaela Dimas MCV (RBC) [Entitic vol] 89.7 fL Normal 81.0-99.0 [facility] Comment on above: Performed By: #### C BC #### [facility] [address] [place], [place] [address] Kaela Dimas MONO # 0.9 103/ul Critically high 0.3-0.8 [facility] Comment on above: Performed By: #### C BC #### [facility] [address] [id number] Kaela Dimas Monocytes/100 WBC (Bld) 5.5 % Normal 1.7-12.0 [facility] Comment on above: Performed By: #### C BC #### [facility] [address] [address] Kaela Sahuen NEUT # 14.1 103/ul Critically high 1.4-6.5 [facility] Comment on above: Performed By: #### C BC #### [facility] [address] [id number] Kaela Dimas Neutrophils/100 WBC (Bld) 83.3 % Critically high 43.0-75.0 [facility] Comment on above: Performed By: #### C BC #### [facility] [address] [place], [place] [address] Kaela Dimas Platelet mean volume (Bld) [Entitic vol] 11.0 fL Normal 9.5-13.5 [facility] Comment on above: Performed By: #### C BC #### [facility] [address] [id number] Kaela Judie PLT 192 103/ul Normal 150-450 [facility] Comment on above: Performed By: #### C BC #### [facility] [address] [place], [place] [address] Kaela Judie RBC 3.77 106/ul Critically low 4.20-5.40 [facility] Comment on above: Performed By: #### C BC #### [facility] [address] [place], [place] [id number] Kaela Dimas WBC 16.9 103/ul Critically high 4.0-11.0 [facility] Comment on above: Performed By: #### C BC #### [facility] [address] [place], [place] [id number] Kaela Dimas ASYMPTOMATIC COVID-19 ANTIGE Non 02-05-2021 EUA Statement SEE BELOW Normal [facility] Comment on above: Result Comment: This test [...] sooner. Performed By: #### G TT3P #### [facility] [address] [place], [place] [id number] Kaela Dimas SARS-CoV-2 (COVID-19) RNA RIGOBERTO+probe Ql (Unsp spec) Negative Normal NEGATIVE [facility] Comment on above: Result Comment: Nega tive results are presumptive. They do not preclude infection and should not be used as the sole basis for treatment decisions. Additional confirmatory testing by a molecular method should be considered. Performed By: #### G TT3P #### [facility] [address] [place], [place] [id number] Kaela Dimas CBC AUTO DIFFon 02-05-2021 BASO # 0.1 103/ul Normal 0.0-0.1 [facility] Comment on above: Performed By: #### C BC #### [facility] [address] [place], [place] [id number] Kaela Dimas Basophils/100 WBC (Bld) 0.3 % Normal 0.2-2.0 [facility] Comment on above: Performed By: #### C BC #### [facility] [address] [place], [place] [id number] Kaela Judie EO # 0.1 103/ul Normal 0.0-0.7 [facility] Comment on above: Performed By: #### C BC #### [facility] [address] [place], [place] [id number] Kaela Judie Eosinophils/100 WBC (Bld) 0.3 % Critically low 0.9-7.0 [facility] Comment on above: Performed By: #### C BC #### [facility] [address] [place] [address] Kaela Judie Erythrocyte distribution width (RBC) [Ratio] 12.0 % Normal 11.0-15.0 [facility] Comment on above: Performed By: #### C BC #### [facility] [address] [place] [address] Kaela Judie Hematocrit (Bld) [Volume fraction] 36.9 % Normal 36.0-48.0 [facility] Comment on above: Performed By: #### C BC #### [facility] [address] [place] [address] Kaela Judie Hemoglobin (Bld) [Mass/Vol] 12.7 g/dL Normal 12.0-16.0 [facility] Comment on above: Performed By: #### C BC #### [facility] [address] [place] [address] Kaela Judie IG # 0.19 10e3/ul Critically high 0.00-0.03 [facility] Comment on above: Performed By: #### C BC #### [facility] [address] [place] [address] Kaela Judie IG % 1.0 % Critically high 0.0-0.5 [facility] Comment on above: Performed By: #### C BC #### [facility] [address] [place] [address] Kaela Judie LYMPH # 1.4 103/ul Normal 1.2-3.8 [facility] Comment on above: Performed By: #### C BC #### [facility] [address] [place], [place] [id number] Kaela Judie Lymphocytes/100 WBC (Bld) 7.6 % Critically low 20.5-60.0 [facility] Comment on above: Performed By: #### C BC #### [facility] [address] [place], [place] [id number] Kaela Judie MANUAL DIFF REQ NO Normal [facility] Comment on above: Performed By: #### C BC #### [facility] [address] [place], [place] [id number] Kaela Judie MCH (RBC) [Entitic mass] 30.5 pg Normal 26.7-34.0 [facility] Comment on above: Performed By: #### C BC #### [facility] [address] [place] [address] Kaelastephanie Dimas MCHC (RBC) [Mass/Vol] 34.4 g/dL Normal 29.9-35.2 [facility] Comment on above: Performed By: #### C BC #### [facility] [address] [place], [place] [id number] Kaela Judie MCV (RBC) [Entitic vol] 88.5 fL Normal 81.0-99.0 [facility] Comment on above: Performed By: #### C BC #### [facility] [address] [place] [address] Kaela Judie MONO # 1.0 103/ul Critically high 0.3-0.8 [facility] Comment on above: Performed By: #### C BC #### [facility] [address] [place], [place] [id number] Kaela Judie Monocytes/100 WBC (Bld) 5.5 % Normal 1.7-12.0 [facility] Comment on above: Performed By: #### C BC #### [facility] [address] [place] [address] Kaela Judie NEUT # 15.7 103/ul Critically high 1.4-6.5 [facility] Comment on above: Performed By: #### C BC #### [facility] [address] [place] [address] Kaela Dimas Neutrophils/100 WBC (Bld) 85.3 % Critically high 43.0-75.0 [facility] Comment on above: Performed By: #### C BC #### [facility] [address] [place], [place] [id number] Kaela Dimas Platelet mean volume (Bld) [Entitic vol] 11.8 fL Normal 9.5-13.5 [facility] [facility] Comment on above: Performed By: #### C BC #### [facility] [address] [place], [place] [id number] Kaelastephanie Dimas PLT 226 103/ul Normal 150-450 [facility] Comment on above: Performed By: #### C BC #### [facility] [address] [place] [address] Kaelastephanie Sahuen RBC 4.17 106/ul Critically low 4.20-5.40 [facility] Comment on above: Performed By: #### C BC #### [facility] [address] [place] [address] Kaelastephanie Dimas WBC 18.5 103/ul Critically high 4.0-11.0 [facility] Comment on above: Performed By: #### C BC #### [facility] [address] [place], [place] [id number] Kaela Dimas DRUG SCREEN RAPID (URINE)on 02-05-2021 AMP Negative Normal NEGATIVE [facility] Comment on above: Performed By: #### D RUGRPD #### [facility] [address] [place], [place] [id number] Kaela Judie BAR Negative Normal NEGATIVE [facility] Comment on above: Performed By: #### D RUGRPD #### [facility] [address] [place], [place] [id number] Kaela Judie BUP Negative Normal NEGATIVE [facility] Comment on above: Performed By: #### D RUGRPD #### [facility] [address] [place], [place] [id number] Kaela Judie BZO Negative Normal NEGATIVE [facility] Comment on above: Performed By: #### D RUGRPD #### [facility] [address] [address] Kaela Judie JERRY Negative Normal NEGATIVE [facility] Comment on above: Performed By: #### D RUGRPD #### [facility] [address] [address] Kaela Judie CUT-OFFS SEE BELOW Normal [facility] Comment on above: Result Comment: AMP [...] ng/mL Performed By: #### D RUGRPD #### [facility] [address] [place] [address] Kaela Judie DRUG CUT HEADER DRUG CLASS TEST SYST EM CUT-OFF CONCENTRATIONS ARE FOLLOWS: Normal [facility] Comment on above: Performed By: #### D RUGRPD #### [facility] [address] [address] Kaela Judie mAMP Negative Normal NEGATIVE [facility] Comment on above: Performed By: #### D RUGRPD #### [facility] [address] [address] Kaela Judie MTD Negative Normal NEGATIVE [facility] Comment on above: Performed By: #### D RUGRPD #### [facility] [address] [address] Kaela Judie OPI Negative Normal NEGATIVE [facility] Comment on above: Performed By: #### D RUGRPD #### [facility] [address] [address] Kaela Judie OXY Negative Normal NEGATIVE [facility] Comment on above: Performed By: #### D RUGRPD #### [facility] [address] [place] [address] Kaela Dimas PCP Negative Normal NEGATIVE [facility] Comment on above: Performed By: #### D RUGRPD #### [facility] [address] [place] [address] Kaela Dimas PPX Negative Normal NEGATIVE [facility] Comment on above: Performed By: #### D RUGRPD #### [facility] [address] [place] [address] Kaela Dimas TCA Negative Normal NEGATIVE [facility] Comment on above: Performed By: #### D RUGRPD #### [facility] [address] [place] [address] Kaela Dimas THC Negative Normal NEGATIVE [facility] Comment on above: Performed By: #### D RUGRPD #### [facility] [address] [place] [address] Kaela Judie TYPE AND SCREENon 02-05-2021 TYPE AND SCREEN Negative Normal [facility] Comment on above: Performed By: #### P TT #### [facility] [address] [place] [address] Kaela Dimas GROUP B STREP CULTUREon S. agalactiae Ag Ql (Unsp spec) Culture Observations: NEGATIVE FOR GROUP B STREPTOCOCCUS. Normal [facility] Comment on above: Performed By: #### P TT #### [facility] [address] [place] [address] Kaela Dimas US PREG BIOPHY W NON [...] by: MICHELLE LANE Date: 2021-01-30 08:23 Normal [facility] US PREG GROWTHon 01-30-2021 US PREG [...] by: MICHELLE LANE Date: 2021-01-30 08:25 Normal [facility] US PREG BIOPHY W NON STRESSo [...] by: MICHELLE LANE Date: 2021-01-23 07:22 Normal [facility] PREG BIOPHY W NON STRESSo n 01-16-2021 [...] by: MICHELLE LANE Date: 2021-01-16 07:31 Normal [facility] PROTEIN 24HR URINEon 021 T PROT, 24 HR UR 603.9 mg/24 hr Critically high 42.0-225.0 [facility] Comment on above: Performed By: #### G TT3P #### [facility] [address] [place], [place] [id number] Kaela Judie UR PROT 12.2 mg/dL Critically high <=12.0 [facility] Comment on above: Performed By: #### G TT3P #### [facility] [address] [place], [place] [address] Kaela Judie UR TOT VOL 4950 ml/24 HR Normal [facility] Comment on above: Performed By: #### G TT3P #### [facility] [address] [place], [place] [address] Kaela Judie CBC AUTO DIFFon 01-13-2021 BASO # 0.0 103/ul Normal 0.0-0.1 [facility] Comment on above: Performed By: #### G TT3P #### [facility] [address] [place], [place] [address] Kaela Judie Basophils/100 WBC (Bld) 0.2 % Normal 0.2-2.0 [facility] Comment on above: Performed By: #### G TT3P #### [facility] [address] [place], [place] [address] Kaela Judie EO # 0.1 103/ul Normal 0.0-0.7 [facility] Comment on above: Performed By: #### G TT3P #### [facility] [address] [place], [place] [address] Kaela Judie Eosinophils/100 WBC (Bld) 0.6 % Critically low 0.9-7.0 [facility] Comment on above: Performed By: #### G TT3P #### [facility] [address] [place], [place] [address] Kaela Judie Erythrocyte distribution width (RBC) [Ratio] 11.7 % Normal 11.0-15.0 [facility] Comment on above: Performed By: #### G TT3P #### [facility] [address] [place] [address] Kaela Judie Hematocrit (Bld) [Volume fraction] 34.5 % Critically low 36.0-48.0 [facility] Comment on above: Performed By: #### G TT3P #### [facility] [address] [place] [address] Kaela Judie Hemoglobin (Bld) [Mass/Vol] 12.1 g/dL Normal 12.0-16.0 [facility] Comment on above: Performed By: #### G TT3P #### [facility] [address] [place] [address] Kaela Judie IG # 0.20 10e3/ul Critically high 0.00-0.03 [facility] Comment on above: Performed By: #### G TT3P #### [facility] [address] [place] [address] Kaela Judie IG % 1.2 % Critically high 0.0-0.5 [facility] Comment on above: Performed By: #### G TT3P #### [facility] [address] [place], [place] [address] Kaela Judie LYMPH # 1.5 103/ul Normal 1.2-3.8 [facility] Comment on above: Performed By: #### G TT3P #### [facility] [address] [place] [address] Kaela Judie Lymphocytes/100 WBC (Bld) 8.6 % Critically low 20.5-60.0 [facility] Comment on above: Performed By: #### G TT3P #### [facility] [address] [place] [address] Kaela Dimas MANUAL DIFF REQ NO Normal [facility] Comment on above: Performed By: #### G TT3P #### [facility] [address] [place] [address] Kaela Dimas MCH (RBC) [Entitic mass] 30.6 pg Normal 26.7-34.0 [facility] Comment on above: Performed By: #### G TT3P #### [facility] [address] [place] [address] Kaela Dimas MCHC (RBC) [Mass/Vol] 35.1 g/dL Normal 29.9-35.2 [facility] Comment on above: Performed By: #### G TT3P #### [facility] [address] [place], [place] [address] Kaelastephanie Dimas MCV (RBC) [Entitic vol] 87.3 fL Normal 81.0-99.0 [facility] Comment on above: Performed By: #### G TT3P #### [facility] [address] [place], [place] [address] Kaela Judie MONO # 1.2 103/ul Critically high 0.3-0.8 [facility] Comment on above: Performed By: #### G TT3P #### [facility] [address] [place], [place] [address] Kaela Judie Monocytes/100 WBC (Bld) 6.6 % Normal 1.7-12.0 [facility] Comment on above: Performed By: #### G TT3P #### [facility] [address] [place], [place] [address] Kaela Judie NEUT # 14.4 103/ul Critically high 1.4-6.5 [facility] Comment on above: Performed By: #### G TT3P #### [facility] [address] [place], [place] [address] Kaela Judie Neutrophils/100 WBC (Bld) 82.8 % Critically high 43.0-75.0 [facility] Comment on above: Performed By: #### G TT3P #### [facility] [address] [place], [place] [address] Kaela Dimas Platelet mean volume (Bld) [Entitic vol] 12.1 fL Normal 9.5-13.5 [facility] Comment on above: Performed By: #### G TT3P #### [facility] [address] [place], [place] [address] Kaelastephanie Dimas PLT 216 103/ul Normal 150-450 [facility] Comment on above: Performed By: #### G TT3P #### [facility] [address] [place], [place] [address] Kaelastephanie Dimas RBC 3.95 106/ul Critically low 4.20-5.40 [facility] Comment on above: Performed By: #### G TT3P #### [facility] [address] [place] [address] Kaela Dimas WBC 17.4 103/ul Critically high 4.0-11.0 [facility] Comment on above: Performed By: #### G TT3P #### [facility] [address] [place], [place] [id number] Kaela Dimas CULTURE URINEon 01-13-2021 CULTURE URINE Culture Observations : LIGHT GROWTH OF MIXED GENITAL TINO. NO POTENTIAL PATHOGENS SEEN. Normal [facility] Comment on above: Performed By: #### P TT #### [facility] [address] [place], [place] [address] Kaela Dimas LDHon 01-13-2021 LDH 194 U/L Normal 122-222 [facility] Comment on above: Performed By: #### U ELIZABETH, LDH #### [facility] [address] [place] [address] Kaela Dimas PROF 14(COMP METB)on 021 Albumin [Mass/Vol] 2.7 g/dL Critically low 3.5-5.0 [facility] Comment on above: Performed By: #### G TT3P #### [facility] [address] [place], [place] [address] Kaela Dimas Albumin/Globulin [Mass ratio] 0.9 {ratio} Normal [facility] Comment on above: Performed By: #### G TT3P #### [facility] [address] [id number] Kaela Judie ALP [Catalytic activity/Vol] 134 U/L Critically high 38-126 [facility] Comment on above: Performed By: #### G TT3P #### [facility] [address] [address] Kaela Judie ALT [Catalytic activity/Vol] 21 U/L Normal 9-52 [facility] Comment on above: Performed By: #### G TT3P #### [facility] [address] [address] Kaela Judie Anion gap [Moles/Vol] 11.6 mmol/L Normal [facility] Comment on above: Performed By: #### G TT3P #### [facility] [address] [place] [address] Kaela Judie AST [Catalytic activity/Vol] 17 U/L Normal 14-36 [facility] Comment on above: Performed By: #### G TT3P #### [facility] [address] [place] [address] Kaela Judie Bilirubin [Mass/Vol] 0.2 mg/dL Normal 0.2-1.3 [facility] Comment on above: Performed By: #### G TT3P #### [facility] [address] [place] [address] Kaela Judie Calcium [Mass/Vol] 9.1 mg/dL Normal 8.4-10.2 [facility] Comment on above: Performed By: #### G TT3P #### [facility] [address] [place] [address] Kaela Judie Chloride [Moles/Vol] 106 mmol/L Normal 98-107 [facility] Comment on above: Performed By: #### G TT3P #### [facility] [address] [place] [address] Kaela Judie CO2 [Moles/Vol] 25.8 mmol/L Normal 22.0-30.0 [facility] Comment on above: Performed By: #### G TT3P #### [facility] [address] [id number] Kaela Judie Creatinine [Mass/Vol] 0.53 mg/dL Normal 0.52-1.04 [facility] Comment on above: Performed By: #### G TT3P #### [facility] [address] [id number] Kaela Judie EGFR-AF SLOVENIAN >60 Normal >=60 [facility] Comment on above: Performed By: #### G TT3P #### [facility] [address] [address] Kaela Judie EGFR-NON AF SLOVENIAN >60 Normal >=60 [facility] Comment on above: Performed By: #### G TT3P #### [facility] [address] [place] [address] Kaela Judie Globulin (S) [Mass/Vol] 3.0 g/dL Normal [facility] Comment on above: Performed By: #### G TT3P #### [facility] [address] [place] [address] Kaela Judie Glucose [Mass/Vol] 85 mg/dL Normal 74-106 [facility] Comment on above: Performed By: #### G TT3P #### [facility] [address] [place] [address] Kaela Judie Potassium [Moles/Vol] 3.4 mmol/L Normal 3.4-5.0 [facility] Comment on above: Performed By: #### G TT3P #### [facility] [address] [place] [address] Kaela Judie Protein [Mass/Vol] 5.7 g/dL Critically low 6.1-8.2 Th [facility] Comment on above: Performed By: #### G TT3P #### [facility] [address] [place] [address] Kaela Judie Sodium [Moles/Vol] 140 mmol/L Normal 137-145 [facility] Comment on above: Performed By: #### G TT3P #### [facility] [address] [place] [address] Kaela Judie Urea nitrogen [Mass/Vol] 10.0 mg/dL Normal 7.0-17.0 [facility] Comment on above: Performed By: #### G TT3P #### [facility] [address] [place] [address] Kaela Dimas Urea nitrogen/Creatinine [Mass ratio] 18.9 mg/mg Normal [facility] Comment on above: Performed By: #### G TT3P #### [facility] [address] [place] [address] Kaelastephanie Sahuen PTTon 01-13-2021 aPTT Coag (Bld) [Time] 23.6 s Normal 22.3-36.2 Th [facility] Comment on above: Performed By: #### P TT #### [facility] [address] [place] [address] Kaela Dimas URIC ACID SERUMon 01-13-2021 Urate [Mass/Vol] 3.7 mg/dL Normal 2.5-6.2 [facility] Comment on above: Performed By: #### U ELIZABETH, LDH #### [facility] [address] [place] [address] Kaela Judie UA (CLEAN/CATCH) [employer] WIRELESS MANAGER/MICRO I F IND.on 01-12-2021 Bilirubin Ql (U) Negative Normal NEGATIVE [facility] Comment on above: Performed By: #### U MICRO, UACSIND #### [facility] [address] [place] [address] Kaela Judie Clarity (U) CLEAR Normal CLEAR [facility] Comment on above: Performed By: #### U MICRO, UACSIND #### [facility] [address] [place] [address] Kaela Judie Color (U) LT. YELLOW Normal YELLOW [facility] Comment on above: Performed By: #### U MICRO, UACSIND #### [facility] [address] [place] [address] Kaela Judie Glucose Ql (U) Negative Normal NEGATIVE [facility] Comment on above: Performed By: #### U MICRO, UACSIND #### [facility] [address] [place] [address] Kaela Judie Hemoglobin Ql (U) Negative Normal NEGATIVE [facility] Comment on above: Performed By: #### U MICRO, UACSIND #### [facility] [address] [place] [address] Kaela Judie Ketones Ql (U) Negative Normal NEGATIVE [facility] Comment on above: Performed By: #### U MICRO, UACSIND #### [facility] [address] [place] [address] Kaela Judie LEUKOCYTES TRACE Abnormal NEGATIVE [facility] Comment on above: Performed By: #### U MICRO, UACSIND #### [facility] [address] [place] [address] Kaela Judie Nitrite Ql (U) Negative Normal NEGATIVE [facility] Comment on above: Performed By: #### U MICRO, UACSIND #### [facility] [address] [place] [address] Kaela Judie pH (U) 6.0 [pH] Normal 5-9 [facility] Comment on above: Performed By: #### U MICRO, UACSIND #### [facility] [address] [place] [address] Kaela Judie SPEC GRAVITY 1.025 Normal 1.005-<=1. 025 [facility] Comment on above: Performed By: #### U MICRO, UACSIND #### [facility] [address] [place] [address] Kaela Judie UA PROTEIN Negative Normal NEGATIVE/ TRACE [facility] Comment on above: Performed By: #### U MICRO, UACSIND #### [facility] [address] [place] [address] Kaela Judie UR MICRO IND INDICATED Normal [facility] Comment on above: Performed By: #### U MICRO, UACSIND #### [facility] [address] [place] [address] Kaela Judie Urobilinogen Qn (U) 0.2 {Sylvester'U}/dL Normal 0.2 - 1. 0 [facility] Comment on above: Performed By: #### U MICRO, UACSIND #### [facility] [address] [place], [place] [id number] Kaela Judie URINE MICROSCOPIC ONLYon BACTERIA TRACE Abnormal NONE SEEN [facility] Comment on above: Performed By: #### U MICRO, UACSIND #### [facility] [address] [place] [address] Kaela Judie Bacteria identified Cx Nom (U) INDICATED Normal [facility] Comment on above: Performed By: #### U MICRO, UACSIND #### [facility] [address] [place] [address] Kaela Judie CAST NONE SEEN Normal NONE SEEN [facility] Comment on above: Performed By: #### U MICRO, UACSIND #### [facility] [address] [place] [address] Kaela Judie Crystals LM Nom (Urine sed) NONE SEEN Normal NONE SEEN [facility] Comment on above: Performed By: #### U MICRO, UACSIND #### [facility] [address] [place] [address] Kaelastephanie Dimas Epithelial cells LM Ql (Urine sed) FEW Abnormal NONE SEEN /RARE [facility] Comment on above: Performed By: #### U MICRO, UACSIND #### [facility] [address] [place] [address] Kaela Judie MUCOUS SMALL Abnormal NONE SEEN [facility] Comment on above: Performed By: #### U MICRO, UACSIND #### [facility] [address] [place] [address] Kaela Judie RBC 0-2 Normal 0-2 [facility] Comment on above: Performed By: #### U MICRO, UACSIND #### [facility] [address] [place] [address] Kaela Judie WBC 2-5 Abnormal NONE SEEN [facility] Comment on above: Performed By: #### U MICRO, UACSIND #### [facility] [address] [place] [address] Kaela Judie US PREG BIOPHY W NON [...] IRINEO COMBS Date: 2021-01-09 07:18 Normal [facility] US PREG GROWTHon 12-31-2020 US PREG GROWTH [...] cm; 32 weeks 2 days; % EFW: [id number], 39% FL/AC: [id number] FL/BPD: 0.647960 HC/AC: 1.333673 GESTATIONAL AGE: Age by EDC: 32 weeks 1 day SUSANNA by EDC: 02/24/2021 Age by US: 32 weeks 0 days SUSANNA by US: 02/25/2021 IMPRESSION: Normal interval growth Electronically authenticated by: IRINEO COMBS Date: 2020-12-31 09:38 Normal [facility] GTT 3 HR PREGon 12-12-2020 Glucose [Mass/Vol] 86 mg/dL Normal 74-106 [facility] Comment on above: Performed By: #### G TT3P #### [facility] [address] [address] Kaela Dimas Glucose [Mass/Vol] 179 mg/dL Normal [facility] Comment on above: Performed By: #### G TT3P #### [facility] [address] [id number] Kaela Judie Glucose [Mass/Vol] 131 mg/dL Normal [facility] Comment on above: Performed By: #### G TT3P #### [facility] [address] [id number] Kaela Judie Glucose [Mass/Vol] 145 mg/dL Normal [facility] Comment on above: Performed By: #### G TT3P #### [facility] [address] [place], [place] [address] Kaela Judie GLUCOSE - 1HRon 12-05-2020 Glucose [Mass/Vol] 151 mg/dL Critically high 74-106 T [facility] Comment on above: Result Comment: sherri ent was approximately 5 minutes late for draw Performed By: #### G LU1HR #### [facility] [address] [place] [address] Kaela Judie HEMOGRAM AND PLATELon 2020 Hematocrit (Bld) [Volume fraction] 38.4 % Normal 36.0-48.0 [facility] Comment on above: Performed By: #### G TT3P #### [facility] [address] [place], [place] [address] Kaela Judie Hemoglobin (Bld) [Mass/Vol] 13.2 g/dL Normal 12.0-16.0 [facility] Comment on above: Performed By: #### G TT3P #### [facility] [address] [place], [place] [address] Kaela Judie MCH (RBC) [Entitic mass] 30.8 pg Normal 26.7-34.0 [facility] Comment on above: Performed By: #### G TT3P #### [facility] [address] [place], [place] [address] Kaelastephanie Sahuen MCHC (RBC) [Mass/Vol] 34.4 g/dL Normal 29.9-35.2 [facility] Comment on above: Performed By: #### G TT3P #### [facility] [address] [place], [place] [address] Kaela Judie MCV (RBC) [Entitic vol] 89.5 fL Normal 81.0-99.0 [facility] Comment on above: Performed By: #### G TT3P #### [facility] [facility] [address], [place] [address] Kaela Dimas PLT 238 103/ul Normal 150-450 [facility] Comment on above: Performed By: #### G TT3P #### [facility] [address] [place], [place] [address] Kaelastephanie Sahuen RBC 4.29 106/ul Normal 4.20-5.40 [facility] Comment on above: Performed By: #### G TT3P #### [facility] [address] [place], [place] [address] Kaela Dimas WBC 17.0 103/ul Critically high 4.0-11.0 [facility] Comment on above: Performed By: #### G TT3P #### [facility] [address] [place], [place] [address] Kaela Dimas US PREG GROWTHon 12-03-2020 US [...] cm; 28 weeks 0 days; % EFW: 2.017603, 2 lbs. 10 oz., 40% FL/AC: 0.702068 FL/BPD: 0.723258 HC/AC: 1.640270 GESTATIONAL AGE: Age by EDC: 28 weeks 1 day SUSANNA by EDC: 02/24/2021 Age by US: 20 weeks 2 days SUSANNA by US: 02/23/2021 IMPRESSION: Normal interval growth Electronically authenticated by: IRINEO COMBS Date: 2020-12-03 10:04 Normal [facility] Vital Signs Date Time Vital Sign Value Performing Clinician Facility 07-31-2024 15:22-0500 Body mass index (BMI) [Ratio] 41.81 kg/m2 Madisyn Gaona PA Work Phone: [facility] 07-31-2024 15:22-0500 Body weight 107.05 kg Madisyn Gaona PA Work Phone: [facility] 07-31-2024 15:22-0500 Diastolic blood pressure 72 mm[Hg] Madisyn Gaona PA Work Phone: [facility] 07-31-2024 15:22-0500 Systolic blood pressure 122 mm[Hg] Madisyn Gaona PA Work Phone: [facility] 07-17-2024 16:19-0500 Body mass index (BMI) [Ratio] 41.81 kg/m2 Scotty Jacquie DO Work Phone: [facility] 07-17-2024 16:19-0500 Body weight 107.05 kg Scotty Jacquie DO Work Phone: [facility] 07-17-2024 16:19-0500 Diastolic blood pressure 72 mm[Hg] Scotty Jacquie DO Work Phone: [facility] 07-17-2024 16:19-0500 Systolic blood pressure 122 mm[Hg] Scotty Jacquie DO Work Phone: [facility] 07-14-2024 11:13-0500 Body height 160 cm Aniceto Fox MD Work Phone: [facility] 07-14-2024 11:13-0500 Body mass index (BMI) [Ratio] 40.74 kg/m2 Aniceto Fox MD Work Phone: [facility] 07-14-2024 11:13-0500 Body weight 104.33 kg Aniceto Fox MD Work Phone: [facility] 07-14-2024 11:13-0500 Diastolic blood pressure 84 mm[Hg] Aniceto Fox MD Work Phone: [facility] 07-14-2024 11:13-0500 Heart rate 104 /min Aniceto Fox MD Work Phone: [facility] 07-14-2024 11:13-0500 Systolic blood pressure 144 mm[Hg] Aniceto Fox MD Work Phone: [facility] 06-15-2024 15:34-0500 Body mass index (BMI) [Ratio] 40.6 kg/m2 Madisyn Jimenez PA Work Phone: [facility] 06-15-2024 15:34-0500 Body weight 103.96 kg Madisyn Noxapater PA Work Phone: [facility] 06-15-2024 15:34-0500 Diastolic blood pressure 76 mm[Hg] Madisyn Noxapater PA Work Phone: [facility] 06-15-2024 15:34-0500 Systolic blood pressure 122 mm[Hg] Madisyn Jimenez PA Work Phone: [facility] 05-18-2024 12:07-0400 Body mass index (BMI) [Ratio] 39.5 kg/m2 Scotty Jacquie DO Work Phone: [facility] 05-18-2024 12:07-0400 Body weight 101.15 kg Scotty Jacquie DO Work Phone: [facility] 05-18-2024 12:07-0400 Diastolic blood pressure 78 mm[Hg] Scotty Jacquie DO Work Phone: [facility] 05-18-2024 12:07-0400 Systolic blood pressure 124 mm[Hg] Scotty Jacquie DO Work Phone: [facility] 04-20-2024 08:46-0400 Body mass index (BMI) [Ratio] 39.41 kg/m2 Madisyn Jimenez PA Work Phone: [facility] 04-20-2024 08:46-0400 Body weight 100.92 kg Madisyn Jimenez PA Work Phone: [facility] 04-20-2024 08:46-0400 Diastolic blood pressure 82 mm[Hg] Madisyn Gaona PA Work Phone: [facility] 04-20-2024 08:46-0400 Systolic blood pressure 122 mm[Hg] Madisyn KERNS Work Phone: [facility] 03-22-2024 11:34-0400 Body mass index (BMI) [Ratio] 39.5 kg/m2 Scotty Jacquie DO Work Phone: [facility] 03-22-2024 11:34-0400 Body weight 101.15 kg Scotty Jacquie DO Work Phone: [facility] 03-22-2024 11:34-0400 Diastolic blood pressure 74 mm[Hg] Scotty Jacquie DO Work Phone: [facility] 03-22-2024 11:34-0400 Systolic blood pressure 122 mm[Hg] Scotty Jacquie DO Work Phone: [facility] 01-31-2024 18:14-0400 Diastolic blood pressure 74 mm[Hg] MD Jacques Mccarthy Work Phone: [facility] 01-31-2024 18:14-0400 Heart rate 100 /min MD Jacques Mccarthy Work Phone: [facility] 01-31-2024 18:14-0400 Respiratory rate 18 /min MD Jacques Mccarthy Work Phone: [facility] 01-31-2024 18:14-0400 SaO2% (BldA) [Mass fraction] 100 % MD Jacques Mccarthy Work Phone: [facility] 01-31-2024 18:14-0400 Systolic blood pressure 156 mm[Hg] MD Jacques Mccarthy Work Phone: [facility] 01-31-2024 14:04-0400 Body height 160.02 cm MD Jacques Mccarthy Work Phone: [facility] 01-31-2024 14:04-0400 Body temperature 97.4 [degF] MD Jacques Mccarthy Work Phone: [facility] 01-31-2024 14:04-0400 Body weight 98.5 kg MD Jacques Mccarthy Work Phone: [facility] Encounters Encounter Date Encounter Type Care Provider Facility Start: 08-07-2024 End: 08-07-2024 Clinisync Result Encounter Scotty Jacquie DO Work Phone: [facility] Unsolicited Start: 08-07-2024 End: 08-07-2024 Clinisync Result Encounter Scotty Jacquie DO Work Phone: [facility] Unsolicited Start: 08-05-2024 End: 08-05-2024 Clinisync Result Encounter Scotty Jacquie DO Work Phone: [facility] Unsolicited Start: 08-05-2024 End: 08-05-2024 Clinisync Result Encounter Scotty Jacquie DO Work Phone: [facility] Unsolicited Start: 08-04-2024 End: 08-04-2024 Clinisync Result Encounter Scotty Jacquie DO Work Phone: [facility] Unsolicited Start: 08-04-2024 End: 08-04-2024 Clinisync Result Encounter Scotty Jacquie DO Work Phone: [facility] Unsolicited Start: 07-31-2024 End: 07-31-2024 flow sheet Madisyn [...] OB Start: 07-17-2024 End: 07-17-2024 ambulatory SCOTTY JACQUIE Not Available Start: 07-17-2024 End: 07-17-2024 flow sheet Scotty Dhillon Work Phone: [facility] Comment on above: Third trimester preg red; 28 weeks gestation of ; Gestational diabetes mellitus (GDM) in third trimester, gestational diabetes method of control unspecified; Hypertension, unspecified type ([facility]/HCC); Gestational diabetes mellitus (GDM), antepartum, gestational diabetes method of control unspecified; Elevated glucose tolerance test Start: 07-14-2024 End: 07-14-2024 Office consultation new/estab patient 60 min Aniceto Fox MD Work Phone: [facility] [place] Comment on above: Gestational diabetes mellitus (GDM), antepartum, gestational diabetes method of control unspecified (Primary Dx); Chronic hypertension affecting Start: 07-14-2024 End: 07-14-2024 ambulatory Health system [facility] Start: 07-13-2024 End: 07-13-2024 Clinisync Result Encounter Madisyn KERNS Work Phone: [facility] External Department Unsolicited Start: 07-13-2024 End: 07-13-2024 Clinisync Result Encounter Madisyn KERNS Work Phone: [facility] External Department Unsolicited Start: 06-21-2024 End: 06-21-2024 Chart abstracting Aniceto Fox MD Work Phone: [facility] Start: 06-15-2024 End: 06-15-2024 flow sheet [...] Bamboo flowsheet Scotty Jacquie DO Work Phone: [facility] Start: 05-18-2024 End: 05-18-2024 Bamboo flowsheet Scotty Jacquie DO Work Phone: [facility] Start: 05-18-2024 End: 05-18-2024 ambulatory SCOTTY JACQUIE Not Available Start: 05-18-2024 End: 05-18-2024 flow sheet Scotty Jacquie DO Work Phone: [facility] Comment on above: 20 weeks gestation o f ; Second trimester Start: 04-20-2024 End: 04-20-2024 Bamboo flowsheet Madisyn KERNS Work Phone: [facility] Start: 04-20-2024 End: 04-20-2024 Bamboo flowsheet Madisyn KERNS Work Phone: [facility] Start: 04-20-2024 End: 04-20-2024 Office outpatient visit 15 minutes Madisyn KERNS Work Phone: [facility] Comment on above: Screening, , for anatomic survey; Well woman exam with routine gynecological exam; Screen for STD (sexually transmitted disease); Vaginal discharge; Second trimester Start: 04-20-2024 End: 04-20-2024 Patient encounter procedure Madisyn KERNS Work Phone: [facility] Start: 04-20-2024 End: 04-20-2024 ambulatory MADISYN GAONA Not Available Start: 03-22-2024 End: 03-22-2024 Bamboo flowsheet Scotty Jacquie DO Work Phone: [facility] Start: 03-22-2024 End: 03-22-2024 Bamboo flowsheet Scotty Jacquie DO Work Phone: [facility] Start: 03-22-2024 End: 03-22-2024 flow sheet Scotty Dhillon DO Work Phone: [facility] Comment on above: Second trimester pre gnancy; Abnormal CBC Start: 03-22-2024 End: 03-22-2024 ambulatory SCOTTY DHILLON Not Available Start: 02-24-2024 End: 02-24-2024 ambulatory SCOTTY CONNELLYO Not Available Start: 02-22-2024 End: 02-22-2024 ambulatory MADISYN GAONA Not Available Start: 02-11-2024 End: 02-11-2024 ambulatory SCOTTY CONNELLYO Not Available Start: 02-08-2024 End: 02-08-2024 ambulatory SCOTTY DHILLON Not Available Start: 01-31-2024 End: 01-31-2024 Emergency department patient visit MD Jacques Mccarthy Work Phone: [place] [facility] Work Phone: Start: 10-08-2021 End: [...] Date Procedure Procedure Detail Performing Clinician Start: 08-07-2024 ALL CBC WITH AUTO DIFF Scotty Jacquie DO Work Phone: Start: 08-05-2024 ALL CBC WITH AUTO DIFF Scotty Jacquie DO Work Phone: Start: 08-04-2024 TB UA (CLEAN/CATCH) MILITARY EXCHANGE WIRELESS MANAGER/MICRO IF IND. Scotty Jacquie DO Work Phone: Start: 07-31-2024 Urnls dip stick/tabl et rgnt non-auto w/o micrscp Madisyn KERNS Work Phone: Start: 07-17-2024 Urnls dip stick/tabl et rgnt non-auto w/o micrscp Scotty Jacquie DO Work Phone: Start: 07-14-2024 Glucose quantitative blood xcpt reagent strip Aniceto Fox MD Work Phone: Start: 07-13-2024 ALL CBC WITH AUTO DIFF Madisyn KERNS Work Phone: Start: 06-15-2024 Urnls dip stick/tabl et rgnt non-auto w/o micrscp Madisyn KERNS Work Phone: Start: 05-18-2024 Urnls dip stick/tabl et rgnt non-auto w/o micrscp Scotty Jacquie DO Work Phone: Start: 04-20-2024 Urnls dip stick/tabl et rgnt non-auto w/o micrscp Madisyn KERNS Work Phone: Start: 02-06-2021 Extraction of Produc ts of Conception, Low Cervical, Open Approach DR SCOTTY DHILLON Start: 02-05-2021 Introduction of Othe r Hormone into Peripheral Vein, Percutaneous Approach DR SCOTTY DHILLON Plan of Treatment Date Care Activity Detail Author Start: 06-21-2025 Adult BMI Screening Adult BMI Screen [facility] Start: 08-14-2024 End: 08-14-2024 Patient encounter procedure 08/14/2024 3:30 PM EST Routine [facility] [address] [place] [id number] Scotty Dhillon, DO [address] [place] [address] [facility] Start: 07-31-2024 End: 07-31-2024 Patient encounter procedure [facility] Comment on above: Arrived Start: 07-17-2024 End: 07-17-2024 Patient encounter procedure 07/17/2024 3:20 PM EST Routine [facility] [address] [place] [phone] Scotty Dhillon, DO [address] [place] [address] [facility] Start: 07-17-2024 End: 07-17-2024 Professional / ancillary services management 07/17/2024 3:00 PM EST Ancillary Procedure [facility] [address] [place] [address] [facility] Start: 07-17-2024 End: 07-17-2025 US biophysical profile w non stress test US biophysical profile w non stress test Imaging Routine Third trimester Gestational diabetes mellitus (GDM) in third trimester, gestational diabetes method of control unspecified Hypertension, unspecified type (CMS/HCC) Expected: 07/17/2024 (Approximate), Expires: 07/17/2025 [facility] Comment on above: Expected: 07/17/2024 (Approximate), Expires: 07/17/2025 Start: 07-17-2024 End: 07-17-2025 US for US OB SCAN FOR GROWTH Imaging Routine Third trimester Gestational diabetes mellitus (GDM) in third trimester, gestational diabetes method of control unspecified Hypertension, unspecified type ([facility]) Expected: 07/17/2024 (Approximate), Expires: 07/17/2025 [facility] Work Phone: Comment on above: Expected: 07/17/2024 (Approximate), Expires: 07/17/2025 Start: 07-14-2024 End: 07-14-2024 Patient encounter procedure [facility] [place] Start: 06-15-2024 End: 06-15-2024 Patient encounter procedure 06/15/2024 3:30 PM EST Routine [facility] [address] [phone] Madisyn Gaona PA [address] [facility] [address] [place], [place] [id number] [facility] Start: 06-15-2024 End: 06-15-2025 CBC panel - Blood by Automated count CBC Lab Routine Diabetes mellitus screening Expected: 06/15/2024 (Approximate), Expires: 06/15/2025 [facility] Work Phone: Comment on above: Expected: 06/15/2024 (Approximate), Expires: 06/15/2025 Start: 06-15-2024 End: 06-15-2025 Measurement of glucose 1 hour after glucose challenge for glucose tolerance test Glucose tolerance, 1 hour Lab Routine Diabetes mellitus screening Expected: 06/15/2024 (Approximate), Expires: 06/15/2025 [facility] Comment on above: Expected: 06/15/2024 (Approximate), Expires: 06/15/2025 Start: 05-18-2024 End: 05-18-2024 Patient encounter procedure 05/18/2024 11:40 AM EDT Office Visit [facility] [address] [facility] [place] [phone] Scotty Dhillon, DO [address] [place] [address] [facility] Start: 05-18-2024 End: 05-18-2024 Professional / ancillary services management 05/18/2024 10:30 AM EDT Ancillary Procedure [facility] [address] [place] [phone] [facility] Start: 04-20-2024 End: 04-20-2025 [...] Start: 04-02-2024 Influenza vaccination Influenza Vacc ine [facility] Start: 03-22-2024 End: 03-22-2024 Patient encounter procedure 03/22/2024 11:20 AM EDT Routine [facility] [address] [place] [phone] Scotty Dhillon, DO [address] [place] [address] Arrived [facility] Comment on above: Arrived Start: 2018 Screening for malign ant neoplasm of cervix Pap Smear [facility] Start: 2016 DTaP,Tdap and Td Vaccines (1 - Tdap) DTaP,Tdap and Td Vaccines (1 - Tdap) [facility] Start: 2015 Adult BMI Follow Up Plan Adult BMI Follow Up Plan [facility] Start: 2015 Adult BMI Screening Adult BMI Screen ing [facility] Start: 2009 Depression Screening Depression Scre ening [facility] Start: 2009 Tobacco Screening Tobacco Screening [facility] CBC W Auto Different ial panel - Blood CBC and differential Lab Routine Abnormal CBC Ordered: 03/22/2024 [facility] Work Phone: Comment on above: Ordered: 03/22/2024 Patient Education - Th e Second Month High Blood Pressure ED [facility] Work Phone: Patient referral [facility] Work Phone: Payers Date Payer Category Payer Medicaid [id number] 2024 Medicaid [id number] 2024 Private Health Insurance [id number] 2024 Private Health Insurance [id number] 2024 Self-pay 2022 Medicaid [facility] [id number] 1997 Unknown [id number] 2.16.840.1.782056.3.579.2. 593 1997 Unknown [id number] 2.16.840.1.103205.3.579.2. 593 1997 Unknown [id number] 2.16.840.1.886103.3.579.2. 593 1997 Unknown [id number] 2.16.840.1.699898.3.579.2. 593 1997 Unknown [id number] 2.16.840.1.920673.3.579.2. 593 1997 Unknown [id number] 2.16.840.1.351990.3.579.2. 593 1997 Unknown [id number] 2.16.840.1.169784.3.579.2. 593 1997 Unknown [id number] 2.16.840.1.787222.3.579.2. 593 1997 Unknown [id number] 2.16.840.1.628218.3.579.2. 593 1997 Unknown [id number] 2.16.840.1.140307.3.579.2. 593 1997 Unknown [id number] 2.16.840.1.303910.3.579.2. 593 1997 Unknown [id number] 2.16.840.1.470971.3.579.2. 593 1997 Unknown [id number] 2.16.840.1.017365.3.579.2. 593 1997 Unknown [id number] 2.16.840.1.870413.3.579.2. 593 1997 Unknown [id number] 2.16.840.1.056633.3.579.2. 593 1997 Unknown [id number] 2.16.840.1.589043.3.579.2. 593 1997 Unknown [id number] 2.16.840.1.402286.3.579.2. 593 1997 Unknown [id number] 2.16.840.1.470099.3.579.2. 593 1997 Unknown [id number] 2.16.840.1.790993.3.579.2. 1286 1997 Unknown [id number] 2.16.840.1.073868.3.579.2. 1259 1997 Unknown [id number] 2.16.840.1.993303.3.579.2. 9 1997 Unknown [id number] 2.16.840.1.109963.3.579.2. 9 1997 Unknown [id number] 2.16.840.1.579500.3.579.2. 9 1997 Unknown [id number] 2.16.840.1.682453.3.579.2. 1259 1997 Unknown [id number] 2.16.840.1.886955.3.579.2. 9 1997 Unknown [id number] 2.16.840.1.853699.3.579.2. 9 1997 Unknown [id number] 2.16.840.1.632052.3.579.2. 9 1997 Unknown [id number] 2.16.840.1.551257.3.579.2. 9 1997 Unknown [id number] 2.16.840.1.633873.3.579.2. 1259 1959 Unknown [id number] 1959 Unknown [id number] 1959 Unknown [id number] Unknown [id number] 2.16.840.1.324065.3.579.2. 531 Social History Date Type Detail Facility Start: 01-13-2024 [facility] Start: 01-31-2024 Tobacco smoking stat [facility] Never smoked tobacco (finding) [facility] Start: 1995 Sex Assigned At Female [facility] Start: 1997 Sex assigned at Not on file [facility] Start: 08-23-2020 End: 06-21-2024 Gender identity Not on file [facility] Start: 10-07-2020 End: 07-14-2024 Tobacco smoking status NHIS Ex-smoker [facility] History of tobacco use Current smoker [facility] Start: 10-07-2020 End: 07-14-2024 Tobacco use and exposure Smokeless tobacco non-user [facility] Start: 06-21-2024 End: 07-14-2024 Alcoholic beverage intake Ex-drinker (finding) [facility] Start: 08-23-2020 End: 06-21-2024 History of Social function [facility] Childcare Unknown [facility] Start: 10-07-2020 End: 07-14-2024 Tobacco Comment quit 3 years ago [facility] Start: 08-23-2020 Sex Female (finding) [facility] History of tobacco use Cigarette Smoker P [facility] Medical Equipment Procedure Code Equipment Code Equipment Origin al Text Equipment Identifier Dates 1 strip by In Vi tro route Daily Use in the morning prior to breakfast, 1 hour after each meal for a total of 4times daily. [id number] Start: 07-17-2024 End: 08-16-2024 1 each by In Vit ro route Daily Use to check FSBS four times daily [id number] Start: 07-17-2024 End: 08-16-2024 Clinical Notes 02-05-2021 to 07-31-2024 LUIS F Tarango - 07/31/2024 3:10 PM Richar Butt LPN - 07/17/2024 3:20 PM Nixon Nalis RN - 07/14/2024 11:00 AM Angel Fox [...] to check FSBS. Blood Glucose Monitoring Suppl ([employer] Glucometer) w/Device kit 1 kit, Does not [...] LUIS F Tarango documented in this encounter [facility] 07-17-2024 History of Present illness Narrative [...] Scotty Dhillon DO documented in this encounter [facility] 07-14-2024 History of Present illness Narrative [...] yes Have you been seen here at [facility] in a previous ? no Recent ER visits or hospitalizations? no Bring blood sugar log or meter with you today? (Please bring them with you for every visit at [facility]) no Flu vaccine (Jun-September)? no Any [...] outflow tracts on ultrasound BMI 40.0-44.9, adult ([facility]) Past Medical History: Diagnosis Date Anxiety Chronic [...] evening., Disp: , Rfl: miscellaneous medical supply [facility] by miscellaneous route once., Disp: , Rfl: [...] and the other consultants, we search on [facility] and all the available care everywhere epic I did review all the imaging studies of the patient available on EMR, ordered by the primary care physician and the other absence management consultant HABITS: Patient activity no restrictions, diet [...] her 3 hour glucose tolerance test, refer [facility] for diabetes management.. 8. Patient came more than 1 hour late for her ultrasound appointment and therefore has been rescheduled at our [facility] site. DISPOSITION: At this point the patient is in complete care of her window framer. Patient does have ultrasound appointment scheduled with us. Thank you for allowing me to participate in Samantha Taylor . If there any questions please do not hesitate to contact us. Sincerely, ANICETO FOX MD documented in this encounter [facility] 06-15-2024 History of Present illness Narrative Reason [...] LUIS F Tarango documented in this encounter [facility] 05-18-2024 History of Present illness Narrative [...] nursing note reviewed. Exam conducted with a hvac field service technician present. Vitals: Estimated body mass index is [...] of MSAFP orders to have drawn at [facility] in [place]. Documented by Angela Butt LPN on behalf of: Scotty Dhillon DO documented in this encounter [facility] 04-20-2024 History of Present illness Narrative [...] LUIS F Tarango documented in this encounter [facility] 03-22-2024 History of Present illness Narrative [...] nursing note reviewed. Exam conducted with a hvac field service technician present. Vitals: Estimated body mass index is [...] or undercooked meat, and stay away from formerly [facility]. Patient has been consulted regarding any [...] Scotty Dhillon DO documented in this encounter [facility] 02-05-2021 Note OPERATIVE NOTE OPERATION DATE: 02-06-21 ANESTHETIC:Spinal with Duramorph. INSPECTOR GENERAL:ELVIA Prajapati PREOPERATIVE DIAGNOSIS: 1. Intrauterine at 39 [...] to the Recovery Room in stable condition. [facility] Signed and Approved by: DR SCOTTY DHILLON . 02/11/2021 11:15:00 [facility] 02-05-2021 Note DISCHARGE SUMMARY Discharge Date: [...] Tylenol, any abdominal pain unrelieved with narcotics. [facility] Signed and Approved by: DR SCOTTY DHILLON . 02/25/2021 23:13:00 [facility] Evaluation note No assessment inform ation available [facility] Work Phone: Evaluation note Diagnosis 20 [...] Chronic hypertension affecting [facility] Diagnosis Third trimester state, incidental 28 weeks gestation of Gestational diabetes mellitus (GDM) in third trimester, gestational diabetes method of control unspecified Hypertension, unspecified type ([facility]) Gestational diabetes mellitus (GDM), antepartum, gestational diabetes [...] encounter [facility] HealthcareInstructionsNot on filedocumented in this encounterProMedi[facility] SystemInstructionsNot on filedocumented in this encounterProMedica Health [...] CREATED AUTHOR AUTHOR'S ORGANIZ ATION 02/19/2024 [facility] DATE CREATED AUTHOR AUTHOR'S ORGANIZ ATION 07/17/2024 [facility] DATE CREATED AUTHOR AUTHOR'S ORGANIZ ATION 08/02/2024 [facility] Special[facility] Care Teams (unrecognized sec tion and content) Team Status: Active Member Role Status Dates Jacques Mccarthy MD Primary Care Provider Active Team Status: Inactive Member Role Status Dates Jacques Mccarthy MD Primary Care Provider Active Start: January 31, 2024 End: January 31, 2024 Terry Dudley DO Emergency Provider Active St art: January 31, 2024 End: January 31, 2024 Party Plan Sales Unit Advisor Relationship Specialty Start Date End Date Jacques Mccarthy MD [address] [place] [address] PCP - General Family Medicine 02/08/24 Party Plan Sales Unit Advisor Relationship Specialty Start Date End Date Jacques Mccarthy MD [address] [place] [address] PCP - General Family Medicine 02/08/24 Party Plan Sales Unit Advisor Relationship Specialty Start Date End Date Jacques Mccarthy MD PCP - General Family Medicine 10/07/20 Party Plan Sales Unit Advisor Relationship Specialty Start Date End Date Jacques Mccarthy MD [address] [place] [address] PCP - General Family Medicine 02/08/24 Party Plan Sales Unit Advisor Relationship Specialty Start Date End Date Jacques Mccarthy MD [address] [place] [phone] PCP - General Family Medicine 02/08/24 Party Plan Sales Unit Advisor Relationship Specialty Start Date End Date Jacques Mccarthy MD [address] [place] [phone] PCP - General Family Medicine 02/08/24 Party Plan Sales Unit Advisor Relationship Specialty Start Date End Date Jacques Mccarthy MD PCP - General Family Medicine 10/07/20 Party Plan Sales Unit Advisor Relationship Specialty Start Date End Date Jacques Mccarthy MD [address] [place] [address] PCP - General Family Medicine 02/08/24 Party Plan Sales Unit Advisor Relationship Specialty Start Date End Date Jacques Mccarthy MD [address] [place] [address] PCP - General Family Medicine 02/08/24 Party Plan Sales Unit Advisor Relationship Specialty Start Date End Date Jacques Mccarthy MD [address] [place] [address] PCP - General Family Medicine 02/08/24 Party Plan Sales Unit Advisor Relationship Specialty Start Date End Date Jacques Mccarthy MD [address] [place] [address] PCP - General Family Medicine 02/08/24 Party Plan Sales Unit Advisor Relationship Specialty Start Date End Date Jacques Mccarthy MD [address] [place] [phone] PCP - General Family Medicine 02/08/24 Party Plan Sales Unit Advisor Relationship Specialty Start Date End Date Jacques Mccarthy MD [address] [facility] [place] [phone] PCP - General Family Medicine 02/08/24 Goals [...] BE BASED ON THE PRIMARY CLINICAL RECORDS. [email or web address] provides no warranty or guarantee of the accuracy or completeness of information in this document.
[2024-08-14 18:11] VITALS: BP 144/88; PULSE 98
--- NOTE | 2024-08-14 19:26 | US_ITS ---
[address] [address] Patient Name: RADAMES BENJAMIN MRN: [id number] date: 1995 Sex: F Assigned Patient Location: [facility] Current Patient Location: [facility] Accession/Order Number: [id number] Exam Date: 08/14/2024 19:50 Report Date: 08/14/2024 20:39 At the request of: SCOTTY SULLIVAN Procedure: US OB BPP wo non-stress EXAMINATION: US OB BPP wo non-stress HISTORY:Non-reactive NST COMPARISON: Ultrasound OB biophysical 08/10/2024 TECHNIQUE: Ultrasound biophysical profile was performed in the radiology department. BREATHING MOVEMENTS: 2 GROSS BODY MOVEMENTS: 2 TONE: 2 QUALITATIVE AMNIOTIC FLUID VOLUME: 2 PRESENTATION: CEPHALIC HEART RATE: 139.90 bpm AMNIOTIC FLUID VOLUME: 30.10 cm GESTATIONAL AGE: 32 weeks 4 days US/US OB BPP wo non-stress IMPRESSION: 1. Total biophysical profile score: 8 2. Polyhydramnios; stable to slightly increased. 3. 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 Electronically authenticated by: MICHELLE LANE Date: 08/14/2024 20:39
== END 2024-08-14 20:24 | disposition home or self-care (01) ==
LOC: FBCO 00:56 → FBC 17:56
PROVIDERS: PCP Family Medicine; Visit Provider Obstetrics & Gynecology
DX: O24.419 Gestational diabetes mellitus in pregnancy, unspecified control (principal); Z3A.32 32 weeks gestation of pregnancy
CPT/HCPCS: 76819

== ENCOUNTER 2024-08-17 01:06 | Outpatient (OUT) | payer OTHER, MEDICAID, SELFPAY ==
--- OUTSIDE RECORDS SUMMARY | 2024-08-17 01:09 | XMS_ITS | CCD ---
Author Organization [facility] Care Team Providers Care Sap Bpc Developer Name Role Phone JACQUIE, DR FAJARDO Consulting [...] JACQUIE, DR FAJARDO Admitting Unavailable JACQUIE, DR FAJRADO Attending Unavailable MIGUEL ÁNGEL, DR HANNA Primary Care Unavailable HOUMA, DR IRINEO Pompa Consulting Unavailable JACQUIE, DR [...] Unavailable DAIANAY, DR HANNA Primary Care Unavailable PENELOPE BOLANOS Attending Unavailable ZIEBER, DR MICHELLE Matthews Consulting Unavailable LUIS MIGUEL, PENELOPE Consulting Unavailable DAIANAY, DR HANNA Primary Care Unavailable HOUMA, DR IRINEO Pompa Consulting Unavailable JACQUIE, DR FAJARDO Attending Unavailable JACQUIE, DR FAJARDO Admitting Unavailable JACQUIE, DR FAJARDO Consulting Unavailable JACQUIE, DR FAJARDO Consulting Unavailable LUIS MIGUEL, PENELOPE Admitting Unavailable LUIS MIGUEL, PENELOPE Attending Unavailable DAIANAY, DR HANNA Primary Care Unavailable ZIEBER, DR MICHELLE Matthews Consulting Unavailable JACQUIE, DR FAJARDO Attending Unavailable JACQUIE, DR FAJARDO Admitting Unavailable DAIANAY, DR HANNA Primary Care Unavailable HOY, DR HANNA Primary Care Unavailable JACQUIE, DR FAJARDO Attending Unavailable JACQUIE, DR FAJARDO Admitting Unavailable JACQUIE, DR FAJARDO Attending Unavailable JACQUIE, DR FAJARDO Admitting Unavailable DAIANAY, DR HANNA [facility] Care Unavailable JACQUIE, DR FAJARDO Consulting Unavailable JACQUIE, DR FAJARDO Attending Unavailable HOY, DR HANNA [facility] Care Unavailable JACQUIE, DR FAJARDO Admitting Unavailable JACQUIE, DR FAJARDO Admitting Unavailable WEST, DR IRINEO Pompa Consulting Unavailable MIGUEL ÁNGEL, DR HANNA [facility] Care Unavailable JACQUIE, DR FAJARDO Attending Unavailable JACQUIE, DR FAJARDO Consulting Unavailable JACQUIE, DR FAJARDO Attending Unavailable MIGUEL ÁNGEL, DR HANNA [facility] Unavailable JACQUIE, DR FAJARDO Admitting Unavailable MD Jacques Mccarthy Primary Care Provider [phone] DO Terry Dudley Emergency Provider Terry Dudley Admitting Unavailable Terry Dudley Attending Unavailable Jacques Mccarthy Primary Care Unavailable Jacques Mccarthy MD Primary Care Provider [phone] Jacques Mccarthy MD Primary Care Provider [phone] ANICETO FOX Attending Unavailable SCOTTY DHILLON R Referring Unavailable JACQUES MCCARTHY Primary Care Unavailable SCOTTY DHILLON Attending Unavailable MADISYN GAONA Attending Unavailable SCOTTY DHILLON Attending Unavailable MADISYN GAONA Attending Unavailable SCOTTY DHILLON Attending Unavailable JIMENEZ, MADISYN Attending Unavailable SCOTTY DHILLON Attending Unavailable MADISYN GAONA Attending Unavailable Medications Current Medications Medication Drug Class(es) Dates Sig (Normalized) Sig (Original) Blood Glucose Monitoring Suppl (D-Care Glucometer) w/Device kit (11 sources) Start: 07-17-2024 End: 07-17-2025 Blood Glucose [...] 4times daily. 1 kit 07/17/2024 07/17/2025 Active cephalexin 500 mg oral capsule (2 sources) Cephalosporin Antibacterial Start: 08-05-2024 cephalexin (Keflex) 500 MG capsule Take 500 mg by mouth in the morning and 500 mg at noon and 500 mg in the evening and 500 mg before bedtime. 08/05/2024 Active citalopram 20 mg oral tablet (20 sources) Serotonin Reuptake Inhibitor Start: 10-05-2023 End: 03-14-2028 take 1 tablet by mouth in the morning citalopram (CeleXA) 20 mg tablet Indications: Gestational diabetes mellitus (GDM), antepartum, gestational diabetes method of control unspecified Take 1 tablet (20 mg total) by mouth in the morning. 30 tablet 07/14/2024 Active End: 07-14-2024 take 2 tablets by mouth in the morning citalopram (CeleXA) 10 mg tablet Take 2 tablets (20 mg total) by mouth in the morning. 07/14/2024 Discontinued (Reorder) isopropyl alcohol 0.7 ml/ml medicated pad (11 sources) Start: 07-17-2024 Alcohol Swabs (Alcohol Prep Pad) 70 % pads Indications: Gestational diabetes mellitus (GDM) in third trimester, gestational diabetes method of control unspecified , Gestational diabetes mellitus (GDM), antepartum, gestational diabetes method of control unspecified , Elevated glucose tolerance test Apply 1 Pad topically Daily Use four times daily to check FSBS. 150 each 3 07/17/2024 Active labetalol hydrochloride 300 mg oral tablet (20 sources) beta-Adrenergi c All Start: 08-05-2024 take 1 tablet by mouth in the morning, then take 1 tablet by mouth in the evening, then take 1 tablet by mouth at bedtime labetalol (Normodyne) 300 MG tablet Take 1 tablet by mouth in the morning and 1 tablet in the evening and 1 tablet before bedtime. 08/05/2024 Active Start: 05-01-2024 End: 09-13-2024 take 1 tablet [...] (200 mg) before bedtime. 270 tablet 06/15/2024 08/14/2024 Discontinued Start: 03-02-2024 End: 04-01-2024 take 1 tablet [...] the evening. Active miscellaneous medical supply misc (5 sources) miscellaneous medical supply misc by miscellaneous route once. Active NIFEdipine 10 mg oral capsule (2 sources) Dihydropyridine Calcium Channel All Start: take 1 capsule by mouth every six hours NIFEdipine (Procardia) 10 MG capsule Take 10 mg by mouth every 6 (six) hours 08/05/2024 Active omeprazole 20 mg delayed release oral capsule (20 sources) Proton Pump Inhibitor Start: End: take [...] Do not crush or chew.. 30 capsule 11 06/15/2024 06/15/2025 Active ondansetron 4 mg oral tablet (5 sources) Serotonin-3 Receptor Antagonist take 1 tablet by mouth every eight hours as needed for nausea and vomiting ondansetron (ZOFRAN) 4 mg tablet Take 4 mg by mouth every 8 (eight) hours as needed for nausea or vomiting. Active vits62/FA/om3/dha/epa ( GUMMY ORAL) (5 sources) vits62/FA/om3/dha/epa ( GUMMY ORAL) Take by mouth. Active Problems Active Problems Problem Classification Problem Date Documented Date Episodic/Chronic Anxiety disorders (1 source) Anxiety disorder, unspecified; Translations: [ANXIETY DISORDER UNSPECIFIED] Onset: 01-15-2021 Chronic Diabetes mellitus without complication (6 sources) Other abnormal glucose; Translations: [Abnormal glucose tolerance test] Onset: 12-12-2020 Episodic Diabetes or abnormal glucose tolerance complicating ; childbirth; or the puerperium (20 sources) Gestational diabetes mellitus in childbirth, diet controlled; Translations: [Gestational diabetes mellitus in , diet controlled] Onset: 12-19-2020 Episodic Essential hypertension (4 sources) Hypertensive disorder; Translations: [Essential (primary) hypertension] Onset: 07-14-2024 01-31-2024 Chronic Hypertension complicating ; childbirth and the puerperium (20 sources) Unspecified pre-existing hypertension complicating , third trimester; Translations: [Pre-existing hypertension with pre-eclampsia, complicating childbirth] Onset: 08-26-2020 Chronic Hypertension complicating ; childbirth and the puerperium (5 sources) Unspecified pre-eclampsia, third trimester; Translations: [Gestational [-induced] hypertension without significant proteinuria, first trimester] Onset: 01-14-2021 Episodic Other complications of (5 sources) ultrasound scan abnormal; Translations: [Abnormal ultrasonic finding on screening of mother] Onset: 06-21-2024 06-21-2024 Episodic Other complications of (2 sources) Heartburn; Translations: [Other specified related conditions, second trimester] 06-15-2024 Episodic Other complications of (4 sources) condition affecting obstetrical care of mother; Translations: [Maternal care for abnormalities of the heart rate or rhythm, unspecified trimester, not applicable or unspecified] Onset: 08-15-2024 08-15-2024 Episodic Other complications of (2 sources) ultrasound scan abnormal; Translations: [Abnormal ultrasonic finding on screening of mother] 08-15-2024 Episodic Other nutritional; endocrine; and metabolic disorders (6 sources) Body mass index 40+ - severely obese; Translations: [Body mass index (BMI) 40.0-44.9, adult] Onset: 06-21-2024 06-21-2024 Chronic Other and delivery including normal (20 sources) Encounter for care and examination of lactating mother; Translations: [Single live ] Onset: 02-11-2021 Episodic Other screening for suspected conditions (not mental disorders or infectious disease) (18 sources) Encounter for screening for malignant neoplasm of cervix; Translations: [Encounter for screening for Streptococcus B] Onset: 12-05-2020 Episodic Polyhydramnios and other problems of amniotic cavity (8 sources) Polyhydramnios; Translations: [Polyhydramnios, unspecified trimester, not applicable or unspecified] Onset: 08-15-2024 08-15-2024 Episodic Residual codes; unclassified (2 sources) Gestation [...] [30 weeks gestation of ] 07-31-2024 Episodic Residual codes; unclassified (3 sources) Gestation period, 32 weeks; Translations: [32 weeks gestation of ] 08-14-2024 Episodic Unclassified (1 source) CONTACT W/AND (SUSP) [...] Range Facility Urinalysis macro (dipstick) panel (U)on 08-14-2024 Bilirubin, UA Negative Negative - 4(70) +++ mg/dL [facility] Blood, UA Positive Negative - 50 Hardeep/mcL [facility] Comment on above: trace-intact Clarity, UA Clear [facility] Color, UA Yellow [facility] Glucose, UA Negative Negative - 1999(110) ++++ mg/dL [facility] Interpretation and review of laboratory results Abnormal [facility] Ketones, UA Positive Negative - 160(16) ++++ mg/dL [facility] Comment on above: 40 Leukocytes, UA Negative Negative - 500+++ Renee/mcL [facility] Nitrite, UA Negative Negative - Positive [facility] pH, UA 6 5 - 9 [facility] Protein, UA Trace Negative - 1999(20) ++++ mg/dL [facility] Spec Grav, UA 1.02 1 - 1.03 [facility] Urobilinogen, UA 0.2 0.2 - 12 mg/dL [facility] ALL CBC WITH AUTO DIFFon BASOPHILS ABSOLUTE AUTO 0.1 [facility] Basophils/100 WBC (Bld) 0.3 % 0.2 - 2.0 % [facility] Eosinophils/100 WBC (Bld) 0.6 % Low 0.9 - 7.0 % [facility] Erythrocyte distribution width (RBC) [Ratio] 12.2 % 11.0 - 15.0 % [facility] Hematocrit (Bld) [Volume fraction] 36.7 % 36.0 - 48.0 % [facility] Hemoglobin (Bld) [Mass/Vol] 12.5 g/dL 12.0 - 16.0 g/dL [facility] IMMATURE GRANULOCYTES ABS AUTO 0.33 High [facility] Immature granulocytes/100 WBC (Bld) 2 % High 0.0 - 0.5 % [facility] Interpretation and review of laboratory results Abnormal [facility] LYMPHOCYTES ABSOLUTE AUTO 1.6 [facility] Lymphocytes/100 WBC (Bld) 9.9 % Low 20.5 - 60.0 % [facility] MCH (RBC) [Entitic mass] 29.7 pg 26.7 - 34.0 pg [facility] MCHC (RBC) [Mass/Vol] 34.1 g/dL 29.9 - 35.2 g/dL [facility] MCV (RBC) [Entitic vol] 87.2 fL 81.0 - 99.0 fL [facility] MONOCYTES ABSOLUTE AUTO 1 High [facility] Monocytes/100 WBC (Bld) 6.3 % 1.7 - 12.0 % [facility] NEUTROPHILS ABSOLUTE AUTO 13.2 High [facility] Neutrophils/100 WBC (Bld) 80.9 % High 43.0 - 75.0 % [facility] Platelet mean volume (Bld) [Entitic vol] 10.5 fL 9.5 - [facility] [facility] PLT 247 [facility] RBC 4.21 [facility] WBC 16.3 High [facility] ALL CBC WITH AUTO DIFFon BASOPHILS ABSOLUTE AUTO 0.1 [facility] Basophils/100 WBC (Bld) 0.3 % 0.2 - 2.0 % [facility] Eosinophils/100 WBC (Bld) 0.2 % Low 0.9 - 7.0 % [facility] Erythrocyte distribution width (RBC) [Ratio] 12.1 % 11.0 - 15.0 % [facility] Hematocrit (Bld) [Volume fraction] 35.3 % Low 36.0 - 48.0 % [facility] Hemoglobin (Bld) [Mass/Vol] 12.1 g/dL 12.0 - 16.0 g/dL [facility] IMMATURE GRANULOCYTES ABS AUTO 0.31 High [facility] Immature granulocytes/100 WBC (Bld) 1.7 % High 0.0 - 0.5 % [facility] Interpretation and review of laboratory results Abnormal [facility] LYMPHOCYTES ABSOLUTE AUTO 1.4 [facility] Lymphocytes/100 WBC (Bld) 7.9 % Low 20.5 - 60.0 % [facility] MCH (RBC) [Entitic mass] 29.8 pg 26.7 - 34.0 pg [facility] MCHC (RBC) [Mass/Vol] 34.3 g/dL 29.9 - 35.2 g/dL [facility] MCV (RBC) [Entitic vol] 86.9 fL 81.0 - 99.0 fL [facility] MONOCYTES ABSOLUTE AUTO 1.3 High [facility] Monocytes/100 WBC (Bld) 7.1 % 1.7 - 12.0 % [facility] NEUTROPHILS ABSOLUTE AUTO 15.1 High [facility] Neutrophils/100 WBC (Bld) 82.8 % High 43.0 - 75.0 % [facility] Platelet mean volume (Bld) [Entitic vol] 10.5 fL 9.5 - 13.[address] [facility] PLT 217 [facility] RBC 4.06 Low [facility] WBC 18.2 High [facility] UA (CLEAN/CATCH) MEDICAL BILLING INSTRUCTOR/KEYLA RO IF IND.on 08-04-2024 BILIRUBIN URINE Negative NEGATIVE [facility] BLOOD URINE Negative NEGATIVE [facility] Clarity (U) CLEAR CLEAR [facility] Color (U) YELLOW YELLOW [facility] GLUCOSE URINE UA 500 mg/dL Abnormal NEGATIVE [facility] Interpretation and review of laboratory results Abnormal [facility] Ketones Ql (U) Negative NEGATIVE mg/dL [facility] Leukocyte esterase Test strip Ql (U) Negative NEGATIVE [facility] NITRITE URINE Negative NEGATIVE [facility] pH (U) 6.0 [pH] 5.0 - 9.0 [facility] PROTEIN URINE Negative NEG/TRACE mg/dL [facility] SPECIFIC GRAVITY URINE 1.025 1.005 - 1.025 [facility] URINE MICROSCOPIC INDICATED NO [facility] UROBILINOGEN URINE 0.2 EU/dL 0.2 - 1.0 EU/dL [facility] Urinalysis macro (dipstick) panel (U)on 07-31-2024 Bilirubin, UA Negative Negative - 4(70) +++ mg/dL [facility] Blood, UA Positive Negative - 50 Hardeep/mcL [facility] Comment on above: small Clarity, UA Clear [facility] Color, UA Yellow [facility] Glucose, UA Positive Negative - 1999(110) ++++ mg/dL [facility] Comment on above: 250 Interpretation and review of laboratory results Abnormal [facility] Ketones, UA Negative Negative - 160(16) ++++ mg/dL [facility] Leukocytes, UA Negative Negative - 500+++ Renee/mcL [facility] Nitrite, UA Negative Negative - Positive [facility] pH, UA 6 5 - 9 [facility] Protein, UA Trace Negative - 1999(20) ++++ mg/dL [facility] Spec Grav, UA 1.02 1 - 1.03 [facility] Urobilinogen, UA 0.2 0.2 - 12 mg/dL [facility] Urinalysis macro (dipstick) panel (U)on 07-17-2024 [...] mg/dL [facility] Comment on above: 500 Interpretation and review of laboratory results Abnormal [facility] Ketones, UA Positive Negative - 160(16) ++++ mg/dL [facility] Comment on above: TRACE Leukocytes, UA Negative [...] Urobilinogen, UA 0.2 0.2 - 12 mg/dL [facility] Glucose random or fasting- P OCTon 07-14-2024 External Glucose Fasting Or Random (Fbs) 169 [facility] ALL CBC WITH AUTO DIFFon BASOPHILS ABSOLUTE AUTO 0.1 [facility] Basophils/100 WBC (Bld) 0.3 % 0.2 - 2.0 % [facility] Eosinophils/100 WBC (Bld) 0.3 % Low 0.9 - 7.0 % [facility] Erythrocyte distribution width (RBC) [Ratio] 12.1 % 11.0 - 15.0 % [facility] Hematocrit (Bld) [Volume fraction] 37.3 % 36.0 - 48.0 % [facility] Hemoglobin (Bld) [Mass/Vol] 12.7 g/dL 12.0 - 16.0 g/dL [facility] IMMATURE GRANULOCYTES ABS AUTO 0.32 High [facility] Immature granulocytes/100 WBC (Bld) 1.8 % High 0.0 - 0.5 % [facility] Interpretation and review of laboratory results Abnormal [facility] LYMPHOCYTES ABSOLUTE AUTO 1.5 [facility] Lymphocytes/100 WBC (Bld) 8.3 % Low 20.5 - 60.0 % [facility] MCH (RBC) [Entitic mass] 30.3 pg 26.7 - 34.0 pg [facility] MCHC (RBC) [Mass/Vol] 34 g/dL 29.9 - 35.2 g/dL [facility] MCV (RBC) [Entitic vol] 89 fL 81.0 - 99.0 fL [facility] MONOCYTES ABSOLUTE AUTO 0.9 High [facility] Monocytes/100 WBC (Bld) 5.2 % 1.7 - 12.0 % [facility] NEUTROPHILS ABSOLUTE AUTO 15 High [facility] Neutrophils/100 WBC (Bld) 84.1 % High 43.0 - 75.0 % [facility] Platelet mean volume (Bld) [Entitic vol] 10.4 fL 9.5 - 13.5 fL [facility] TBH EO # 0.1 [facility] TB PLT 255 [facility] RBC 4.19 Low [facility] WBC 17.8 High [facility] Urinalysis macro (dipstick) panel (U)on 06-15-2024 Bilirubin, [...] Urobilinogen, UA 1.0 0.2 - 12 mg/dL [facility] Urinalysis macro (dipstick) panel (U)on 05-18-2024 [...] [facility] Protein, UA Negative Negative - 2000(20) ++++ mg/dL [facility] Spec Grav, UA 1.025 1 - 1.03 [facility] Urobilinogen, UA 0.2 0.2 - 12 mg/dL [facility] Urinalysis macro (dipstick) panel (U)on 04-20-2024 Bilirubin, UA Positive Negative - 4(70) +++ mg/dL [facility] Comment on above: small Blood, UA Negative [facility] Ketones, UA Positive Negative - 160(16) ++++ mg/dL [facility] Comment on above: trace Leukocytes, UA Negative Negative - 500+++ Renee/mcL [facility] Nitrite, UA Negative Negative - Positive [facility] pH, UA 6.5 5 - 9 [facility] Protein, UA Trace Negative - 1999(20) ++++ mg/dL [facility] Spec Grav, UA 1.030 1 - 1.03 [facility] Urobilinogen, UA 1.0 0.2 - 12 mg/dL [facility] Activated partial thrombopla stin time (aPTT) in platelet poor plasma by coagulation aOrdered By: Terry Dudley on 01-31-2024 aPTT Coag (PPP) [Time] 26.1 s 25.1-36.5 [facility] Comment on above: A hematocrit value g reater than 55% may lead to inaccurate results in coagulation testing. Patients having hematocrit values >55% require a special collection tube for coagulation studies. Please contact the laboratory at [phone] for redraw instructions. Alanine aminotransferase [En zymatic activity/volume] in Serum or PlasmaOrdered By: Terry Dudley on 01-31-2024 ALT [Catalytic activity/Vol] 22 U/L Normal 7-52 [facility] Comment on above: Performed By: #### H S TROP, PTT, CMP, DDIMER, BNP, CK, PT, CBC #### [facility] [address] [place] [address] Albumin [Mass/volume] in Ser um or Plasma by Bromocresol green (BCG) dye binding methoOrdered By: Terry Dudley on 01-31-2024 Albumin BCG dye [Mass/Vol] 4.7 g/dL 3.5-5.7 [facility] Alkaline phosphatase [Enzyma tic activity/volume] in Serum or PlasmaOrdered By: Terry Dudley on 01-31-2024 ALP [Catalytic activity/Vol] 67 U/L Normal 34-104 [facility] Comment on above: Performed By: #### H S TROP, PTT, CMP, DDIMER, BNP, CK, PT, CBC #### [facility] [address] [place] [address] Aspartate aminotransferase [ Enzymatic activity/volume] in Serum or PlasmaOrdered By: Terry Dudley on 01-31-2024 AST [Catalytic activity/Vol] 17 U/L Normal 13-39 [facility] Comment on above: Performed By: #### H S TROP, PTT, CMP, DDIMER, BNP, CK, PT, CBC #### [facility] [address] [place] [address] Automated basophil %Ordered By: Terry Dudley on 01-31-2024 Basophils/100 WBC (Bld) 0.6 % Normal . [facility] Comment on above: Performed By: #### H S TROP, PTT, CMP, DDIMER, BNP, CK, PT, CBC #### [facility] [address] [place] [address] Automated basophil countOrde red By: Terry Dudley on 01-31-2024 Basophils (Bld) [#/Vol] 0.1 10*3/uL Normal 0.0-0.2 [facility] Comment on above: Result Comment: PERF ORMED BY: [place] [address] PATHOLOGIST INSURANCE ACCOUNT REPRESENTATIVE CARLOS HITCHCOCK M.D. Performed By: #### H S TROP, PTT, CMP, DDIMER, BNP, CK, PT, CBC #### [address] Automated blood monocyte cou ntOrdered By: Terry Dudley on 01-31-2024 Monocytes (Bld) [#/Vol] 1.3 10*3/uL High 0.0-0.8 [facility] Comment on above: Performed By: #### H S TROP, PTT, CMP, DDIMER, BNP, CK, PT, CBC #### [address] Automated eosinophil %Ordere d By: Terry Dudley on 01-31-2024 Eosinophils/100 WBC (Bld) 0.3 % Normal . [facility] Comment on above: Performed By: #### H S TROP, PTT, CMP, DDIMER, BNP, CK, PT, CBC #### [address] Automated eosinophil countOr dered By: Terry Dudley on 01-31-2024 Eosinophils (Bld) [#/Vol] 0.1 10*3/uL Normal 0.0-0.45 [facility] Comment on above: Performed By: #### H S TROP, PTT, CMP, DDIMER, BNP, CK, PT, CBC #### [address] Automated monocyte %Ordered By: Terry Dudley on 01-31-2024 Monocytes/100 WBC (Bld) 7.5 % Normal . [facility] Comment on above: Performed By: #### H S TROP, PTT, CMP, DDIMER, BNP, CK, PT, CBC #### [address] Automated neutrophil %Ordere d By: Terry Dudlye on 01-31-2024 Neutrophils/100 WBC (Bld) 79.8 % Normal . [facility] Comment on above: Performed By: #### H S TROP, PTT, CMP, DDIMER, BNP, CK, PT, CBC #### [address] BNP ser/plasOrdered By: Delgado Dudley on 01-31-2024 Natriuretic peptide B (Bld) [Mass/Vol] 30.0 pg/mL Normal 5-100 [facility] Comment on above: Result Comment: PERF ORMED BY: [place] [address] PATHOLOGIST INSURANCE ACCOUNT REPRESENTATIVE CARLOS HITCHCOCK M.D. Performed By: #### H S TROP, PTT, CMP, DDIMER, BNP, CK, PT, CBC #### [address] Bilirubin Test strip Ql (U)O rdered By: Terry Dudley on 01-31-2024 Bilirubin Ql (U) Negative Negative [facility] Bilirubin.total [Mass/volume ] in Serum or PlasmaOrdered By: Terry Dudley on 01-31-2024 Bilirubin [Mass/Vol] 0.5 mg/dL Normal 0.3-1.[address] [facility] Comment on above: Performed By: #### H S TROP, PTT, CMP, DDIMER, BNP, CK, PT, CBC #### [place] [address] [place] Calcium [Mass/volume] in Ser um or PlasmaOrdered By: Terry Dudley on 01-31-2024 Calcium [Mass/Vol] 9.6 mg/dL Normal 8.6-10.3 [facility] Comment on above: Performed By: #### H S TROP, PTT, CMP, DDIMER, BNP, CK, PT, CBC #### [place] [address] [place] Carbon dioxide, total [Moles /volume] in Serum or PlasmaOrdered By: Terry Dudley on 01-31-2024 CO2 [Moles/Vol] 30.1 mmol/L Normal 21.0-31.0 [facility] Comment on above: Performed By: #### H S TROP, PTT, CMP, DDIMER, BNP, CK, PT, CBC #### [facility] [address] [place] [address] [place] Chloride [Moles/volume] in S marty or PlasmaOrdered By: Terry Dudley on 01-31-2024 Chloride [Moles/Vol] 101 mmol/L Normal 98-[address] [facility] Comment on above: Performed By: #### H S TROP, PTT, CMP, DDIMER, BNP, CK, PT, CBC #### [address] Color of Urine by AutoOrdere d By: Terry Dudley on 01-31-2024 Color (U) Colorless Normal Yellow [facility] Comment on above: Order Comment: Name Collection Type:: Clean-Voided Midstream Performed By: #### U A, UHCG #### [address] Complete Blood Count Auto Di ffon 01-31-2024 Mean Corpuscular HGB Conc 34.6 g/dL Normal 32.0-35.0 [facility] Comment on above: Performed By: #### H S TROP, PTT, CMP, DDIMER, BNP, CK, PT, CBC #### [address] Monocytes/100 WBC (Bld) 14.85 % Normal 0.00-20.00 [facility] Comment on above: Performed By: #### H S TROP, PTT, CMP, DDIMER, BNP, CK, PT, CBC #### [address] NRBC% 0.0 /100{WBC} Normal 0-0.5 [facility] Comment on above: Performed By: #### H S TROP, PTT, CMP, DDIMER, BNP, CK, PT, CBC #### [address] Comprehensive Metabolic Pane urszula 01-31-2024 Albumin [Mass/Vol] 4.7 g/dL Normal 3.5-5.7 [facility] Comment on above: Performed By: #### H S TROP, PTT, CMP, DDIMER, BNP, CK, PT, CBC #### [address] Creatinine Clr Calc Pharmacy 119.17 Normal [facility] Comment on above: Result Comment: PERF ORMED BY: [place] [address] PATHOLOGIST INSURANCE ACCOUNT REPRESENTATIVE CARLOS HITCHCOCK M.D. Performed By: #### H S TROP, PTT, CMP, DDIMER, BNP, CK, PT, CBC #### [address] GFR/1.73 sq M.predicted MDRD (S/P/Bld) [Vol rate/Area] mL/min/{1.73_m2} Normal [facility] Comment on above: Performed By: #### H S TROP, PTT, CMP, DDIMER, BNP, CK, PT, CBC #### [address] Creatine kinase [Enzymatic a ctivity/volume] in Serum or PlasmaOrdered By: Terry Dudley on 01-31-2024 CK [Catalytic activity/Vol] 76 U/L Normal 30-223 [facility] Comment on above: Performed By: #### H S TROP, PTT, CMP, DDIMER, BNP, CK, PT, CBC #### [address] Creatinine [Mass/volume] in Serum or PlasmaOrdered By: Terry Dudley on 01-31-2024 Creatinine [Mass/Vol] 0.80 mg/dL Normal 0.60-1.20 [facility] Comment on above: Performed By: #### H S TROP, PTT, CMP, DDIMER, BNP, CK, PT, CBC #### [address] D-Dimer High Sensitivityon 0 01-31-2024 D-Dimer High Sensitivity < 200 Normal 0-243 [facility] Comment on above: Result [...] coagulation studies. Please contact the laboratory at [phone] for redraw instructions. PERFORMED BY: [place] [address] PATHOLOGIST INSURANCE ACCOUNT REPRESENTATIVE CARLOS HITCHCOCK M.D. Performed By: #### H S TROP, PTT, CMP, DDIMER, BNP, CK, PT, CBC #### [place] [id number] [facility] ECG 12 lead ECGon 01-31-2024 ECG 12 lead ECG [facility] [place] [address] [place] [address] Electrocardiograph Report Signed Patient: Samantha Taylor MR#: [id number] : 1995 Acct:[id number] Age/Sex: 28 / F ADM Date: 01/31/24 Loc: ER Room: Type: [facility] ER Attending Dr: Ordering Provider: Terry [...] By Terry Dudley DO 1923 Normal [facility] Erythrocyte distribution wid th [Ratio] by Automated countOrdered By: Terry Dudley on 01-31-2024 Erythrocyte distribution width (RBC) [Ratio] 12.4 % Normal 11.9-15.3 [facility] Comment on above: Performed By: #### H S TROP, PTT, CMP, DDIMER, BNP, CK, PT, CBC #### [facility] [address] Erythrocytes [#/volume] in B lood by Automated countOrdered By: Terry Dudley on 01-31-2024 RBC (Bld) [#/Vol] 4.93 10*6/uL Normal 3.60-5.00 [facility] Comment on above: Performed By: #### H S TROP, PTT, CMP, DDIMER, BNP, CK, PT, CBC #### [facility] [address] Fibrin D-dimer [Presence] in Platelet poor plasma by Latex agglutinationOrdered By: Terry Dudley on 01-31-2024 Fibrin D-dimer LA Ql (PPP) < 200 ng/mL 0-243 [facility] Comment on above: The reference range for [...] coagulation studies. Please contact the laboratory at [phone] for redraw instructions. Glucose [Mass/volume] in Ser um or PlasmaOrdered By: Terry Dudley on 01-31-2024 Glucose [Mass/Vol] 91 mg/dL Normal 70-100 [facility] Comment on above: ADA recommended refe rence rangeRandom Glucose Reference Range is dependent on time and content of last meal. Glucose of more than 200 mg/dL in a nonstressed, ambulatory subject supports the diagnosis of Diabetes Mellitus. Result Comment: [facility] Glucose Reference Range is dependent on time and content of last meal. Glucose of more than 200 mg/dL in a nonstressed, ambulatory subject supports the diagnosis of Diabetes Mellitus. ADA recommended reference range Performed By: #### H S TROP, PTT, CMP, DDIMER, BNP, CK, PT, CBC #### [address] Glucose [Mass/volume] in Uri ne by Test stripOrdered By: Terry Dudley on 01-31-2024 Glucose Test strip (U) [Mass/Vol] Normal mg/dL Normal [facility] HCG ( test) IA.rapi d Ql (U)Ordered By: Terry Dudley on 01-31-2024 HCG ( test) Ql (U) Positive High [facility] HCG,Urineon 01-31-2024 Beta HCG ( test) Ql (U) Positive [facility] Comment on above: Order Comment: Name Collection Type:: Clean-Voided Midstream Result Comment: PERF ORMED BY: [place] [address] PATHOLOGIST INSURANCE ACCOUNT REPRESENTATIVE CARLOS HITCHCOCK M.D. Performed By: #### H S TROP, PTT, CMP, DDIMER, BNP, CK, PT, CBC #### [address] Hematocrit [Volume Fraction] of Blood by Automated countOrdered By: Terry Dudley on 01-31-2024 Hematocrit (Bld) [Volume fraction] 45.1 % Normal 34.0-46.4 [facility] Comment on above: Performed By: #### H S TROP, PTT, CMP, DDIMER, BNP, CK, PT, CBC #### [address] Hemoglobin Test strip Ql (U) Ordered By: Terry Dudley on 01-31-2024 Hemoglobin Ql (U) Negative Negative [facility] Hemoglobin [Mass/volume] in BloodOrdered By: Terry Dudley on 01-31-2024 Hemoglobin (Bld) [Mass/Vol] 15.6 g/dL High 11.8-15.4 [facility] Comment on above: Performed By: #### H S TROP, PTT, CMP, DDIMER, BNP, CK, PT, CBC #### [facility] [address] [place] [address] INR in Platelet poor plasma by Coagulation assayOrdered By: Terry Dudley on 01-31-2024 INR Coag (PPP) [Relative time] 1.2 {INR} Normal [facility] Comment on above: INR Therapeutic Rang e [...] CMP, DDIMER, BNP, CK, PT, CBC #### [facility] [address] [place] [address] [place] Ketones [Presence] in Urine by Test stripOrdered By: Terry Dudley on 01-31-2024 Ketones Ql (U) Negative Normal Negative [facility] Comment on above: Order Comment: Name Collection Type:: Clean-Voided Midstream Performed By: #### U A UHCG #### [facility] [address] [place] [address] [place] Leukocyte esterase [Presence ] in Urine by Test stripOrdered By: Terry Dudley on 01-31-2024 Leukocyte esterase Test strip Ql (U) Negative Normal Negative [facility] Comment on above: Order Comment: Name Collection Type:: Clean-Voided Midstream Performed By: #### U A UHCG #### [address] Leukocytes [#/volume] correc edna for nucleated erythrocytes in Blood by Automated counOrdered By: Terry Dudley on 01-31-2024 WBC corrected for nucl RBC Auto (Bld) [#/Vol] 17.5 10*3/uL High 3.8-11.6 [facility] Leukocytes [#/volume] in Blo od by Automated countOrdered By: Terry Dudley on 01-31-2024 WBC (Bld) [#/Vol] 17.5 10*3/uL High 3.8-11.6 [facility] Comment on above: Performed By: #### H S TROP, PTT, CMP, DDIMER, BNP, CK, PT, CBC #### [address] Lymphocytes [#/volume] in Bl ood by Automated countOrdered By: Terry Dudley on 01-31-2024 Lymphocytes (Bld) [#/Vol] 2.1 10*3/uL Normal 1.00-4.8 [facility] Comment on above: Performed By: #### H S TROP, PTT, CMP, DDIMER, BNP, CK, PT, CBC #### [address] Lymphocytes/100 leukocytes i n Blood by Automated countOrdered By: Terry Dudley on 01-31-2024 Lymphocytes/100 WBC (Bld) 11.8 % Normal . [facility] Comment on above: Performed By: #### H S TROP, PTT, CMP, DDIMER, BNP, CK, PT, CBC #### [address] MCH [Entitic mass] by Automa edna countOrdered By: Terry Dudley on 01-31-2024 MCH (RBC) [Entitic mass] 31.7 pg Normal 24.7-34.3 [facility] Comment on above: Performed By: #### H S TROP, PTT, CMP, DDIMER, BNP, CK, PT, CBC #### [place] [address] [place] MCHC Auto (RBC) [Mass/Vol]Or dered By: Terry Dudley on 01-31-2024 MCHC (RBC) [Mass/Vol] 34.6 g/dL 32.0-35.0 [facility] MCV [Entitic volume] by Auto mated countOrdered By: Terry Dudley on 01-31-2024 MCV (RBC) [Entitic vol] 91.4 fL Normal 80-100 [facility] Comment on above: Performed By: #### H S TROP, PTT, CMP, DDIMER, BNP, CK, PT, CBC #### [facility] [address] [place] [address] [place] Monocyte distribution width [Entitic volume] in Blood by AutomatedOrdered By: Terry Dudley on 01-31-2024 Monocyte distribution width Auto (Bld) [Entitic vol] 14.85 % 0.00-20.00 [facility] Neutrophils [#/volume] in Bl ood by Automated countOrdered By: Terry Dudley on 01-31-2024 Neutrophils (Bld) [#/Vol] 14.0 10*3/uL High 1.8-7.7 [facility] Comment on above: Performed By: #### H S TROP, PTT, CMP, DDIMER, BNP, CK, PT, CBC #### [facility] [address] Nitrite Test strip Ql (U)Ord ered By: Terry Dudley on 01-31-2024 Nitrite Ql (U) Negative Negative [facility] No Panel InformationOrdered By: Terry Dudley on 01-31-2024 Estimated GFR (CKD-EPI) > 60.0 mL/Min [facility] Creatinine Clearance (Chem 119.17 [facility] Nucleated erythrocytes [Pres ence] in Blood by Automated countOrdered By: Terry Dudley on 01-31-2024 Nucleated RBC Auto Ql (Bld) 0.0 /100{WBC} 0-0.5 [facility] Partial Thromboplastin Timeo n 01-31-2024 aPTT Coag (Bld) [Time] 26.1 s Normal 25.1-36.5 [facility] Comment on above: Result Comment: A he matocrit value greater than 55% may lead to inaccurate results in coagulation testing. Patients having hematocrit values >55% require a special collection tube for coagulation studies. Please contact the laboratory at [phone] for redraw instructions. Performed By: #### H S TROP, PTT, CMP, DDIMER, BNP, CK, PT, CBC #### [facility] [address] Platelet mean volume [Entiti c volume] in Blood by Automated countOrdered By: Terry Dudley on 01-31-2024 Platelet mean volume (Bld) [Entitic vol] 8.7 fL Normal 6.3-10.7 [facility] Comment on above: Performed By: #### H S TROP, PTT, CMP, DDIMER, BNP, CK, PT, CBC #### [facility] [address] Platelets [#/volume] in Bloo d by Automated countOrdered By: Terry Dudley on 01-31-2024 Platelets (Bld) [#/Vol] 297 10*3/uL Normal 150-450 [facility] Comment on above: Performed By: #### H S TROP, PTT, CMP, DDIMER, BNP, CK, PT, CBC #### [address] Potassium [Moles/volume] in Serum or PlasmaOrdered By: Terry Dudley on 01-31-2024 Potassium [Moles/Vol] 3.4 mmol/L Low 3.5-5.1 [facility] Comment on above: Performed By: #### H S TROP, PTT, CMP, DDIMER, BNP, CK, PT, CBC #### [address] Protein Test strip (U) [Mass /Vol]Ordered By: Terry Dudley on 01-31-2024 Protein (U) [Mass/Vol] Negative Negative [facility] Protein [Mass/volume] in Ser um or PlasmaOrdered By: Terry Dudley on 01-31-2024 Protein [Mass/Vol] 7.7 g/dL Normal 6.4-8.9 [facility] Comment on above: Performed By: #### H S TROP, PTT, CMP, DDIMER, BNP, CK, PT, CBC #### [address] Prothrombin time (PT)Ordered By: Terry Dudley on 01-31-2024 PT Coag (PPP) [Time] 14.0 s High 9.0-12.[address] [facility] Comment on above: A hematocrit value g reater than 55% may lead to inaccurate results in coagulation testing. Patients having hematocrit values >55% require a special collection tube for coagulation studies. Please contact the laboratory at [phone] for redraw instructions. Result Comment: A he matocrit value greater than 55% may lead to inaccurate results in coagulation testing. Patients having hematocrit values >55% require a special collection tube for coagulation studies. Please contact the laboratory at [phone] for redraw instructions. Performed By: #### H S TROP, PTT, CMP, DDIMER, BNP, CK, PT, CBC #### [address] Serum globulin measurement b y calculation (mass/volume)Ordered By: Terry Dudley on 01-31-2024 Globulin (S) [Mass/Vol] 3.0 g/dL [facility] Comment on above: Performed By: #### H S TROP, PTT, CMP, DDIMER, BNP, CK, PT, CBC #### [facility] [address] [place] [address] Serum or plasma albumin/glob ulin mass ratioOrdered By: Terry Dudley on 01-31-2024 Albumin/Globulin [Mass ratio] 1.6 {ratio} [facility] Comment on above: Performed By: #### H S TROP, PTT, CMP, DDIMER, BNP, CK, PT, CBC #### [address] Serum or plasma anion gap de terminationOrdered By: Terry Dudley on 01-31-2024 Anion gap [Moles/Vol] 8.3 mmol/L Normal 6.0-15.0 [facility] Comment on above: Performed By: #### H S TROP, PTT, CMP, DDIMER, BNP, CK, PT, CBC #### [facility] [address] Sodium [Moles/volume] in Ser um or PlasmaOrdered By: Terry Dudley on 01-31-2024 Sodium [Moles/Vol] 136 mmol/L Normal 136-145 [facility] Comment on above: Performed By: #### H S TROP, PTT, CMP, DDIMER, BNP, CK, PT, CBC #### [address] Specific gravity Test strip (U) [Rel density]Ordered By: Terry Dudley on 01-31-2024 Specific gravity (U) [Rel density] 1.005 1.001-1.03 0 [facility] Troponin I High Sensitivityo n 01-31-2024 Troponin I High Sensitivity 3.5 pg/mL Normal 0.0-15.0 [facility] Comment on above: Result Comment: PERF ORMED BY: [place] [address] PATHOLOGIST INSURANCE ACCOUNT REPRESENTATIVE CARLOS HITCHCOCK M.D. Performed By: #### H S TROP, PTT, CMP, DDIMER, BNP, CK, PT, CBC #### [address] Troponin I.cardiac [Mass/vol ume] in Serum or Plasma by Detection limit <= 0.01 ng/Ordered By: Terry Dudley on 01-31-2024 Troponin I.cardiac DL <= 0.01 ng/mL [Mass/Vol] 3.5 pg/mL 0.0-15.0 [facility] Urea nitrogen [Mass/volume] in Serum or PlasmaOrdered By: Terry Dudley on 01-31-2024 Urea nitrogen [Mass/Vol] 10 mg/dL Normal 7-25 [facility] Comment on above: Performed By: #### H S TROP, PTT, CMP, DDIMER, BNP, CK, PT, CBC #### [facility] [address] Urinalysison 01-31-2024 Bilirubin,Urine Negative Normal Negative [facility] Comment on above: Order Comment: Name Collection Type:: Clean-Voided Midstream Performed By: #### U A, UHCG #### [address] Glucose Ql (U) Normal Normal Normal [facility] Comment on above: Order Comment: Name Collection Type:: Clean-Voided Midstream Performed By: #### U A, UHCG #### [address] Nitrite,Urine Negative Normal Negative [facility] Comment on above: Order Comment: Name Collection Type:: Clean-Voided Midstream Performed By: #### U A, UHCG #### [address] Occult Blood,Urine Negative Normal Negative [facility] Comment on above: Order Comment: Name Collection Type:: Clean-Voided Midstream Performed By: #### U A, UHCG #### [place] [address] [place] Protein,Urine Negative Normal Negative [facility] Comment on above: Order Comment: Name Collection Type:: Clean-Voided Midstream Performed By: #### U A, UHCG #### [address] Specificy [place],Urine 1.005 Normal 1.001-1.03 0 [facility] Comment on above: Order Comment: Name Collection Type:: Clean-Voided Midstream Performed By: #### U A, UHCG #### [place] [address] [place] Urobilinogen,Urine Normal Normal Normal [facility] Comment on above: Order Comment: Name Collection Type:: Clean-Voided Midstream Performed By: #### U A, UHCG #### [address] Urine appearanceOrdered By: Terry Dudley on 01-31-2024 Appearance (U) Clear Normal Clear [facility] Comment on above: Order Comment: Name Collection Type:: Clean-Voided Midstream Performed By: #### U A, UHCG #### [facility] [address] [place] [id number] [facility] Urobilinogen Test strip (U) [Mass/Vol]Ordered By: Terry Dudley on 01-31-2024 Urobilinogen (U) [Mass/Vol] Normal mg/dL Normal [facility] pH of Urine by Test stripOrd ered By: Terry Dudley on 01-31-2024 pH (U) 6.5 [pH] Normal 5.0-9.0 [facility] Comment on above: Order Comment: Name Collection Type:: Clean-Voided Midstream Performed By: #### U [place] UHCG #### [facility] [address] [place] [address] PAP ACOG PANEL 2: 23 to 31on 10-14-2021 . . Normal [facility] Comment on above: Performed By: #### P TT #### [facility] [address] [place] [address] Kaela Judie Age Gdln ACOG Testing 23- Normal [facility] Comment on above: Performed By: #### P TT #### [facility] [address] [place] [address] Kaela Dimas DIAGNOSIS: Comment Normal [facility] Comment on above: Result Comment: NEGA TIVE FOR INTRAEPITHELIAL LESION OR MALIGNANCY. CELLULAR CHANGES ASSOCIATED WITH INFLAMMATION ARE PRESENT. Performed By: #### P TT #### [facility] [address] [place] [address] Kaela Dimas Methodology: Comment Normal [facility] Comment on above: Result Comment: This liquid based ThinPrep(R) pap test was screened with the use of an image guided system. Performed By: #### P TT #### [facility] [address] [place] [address] Kaela Dimas Note: Comment Normal [facility] Comment on above: Result Comment: The Pap smear is a screening test designed to aid in the detection of premalignant and malignant conditions of the uterine cervix. It is not a diagnostic procedure and should not be used as the sole means of detecting cervical cancer. Both false-positive and false-negative reports do occur. . Performed By: #### P TT #### [facility] [address] [place] [address] Kaela Judie Performed by: Comment Normal [facility] Comment on above: Result Comment: Nancy Collins, Wiener Packer (ASCP) Performed By: #### P TT #### [facility] [address] [place] [address] Kaela Judie Reflex Criteria: Comment Normal [facility] Comment on above: Result Comment: The HPV DNA reflex criteria were not met with this specimen result therefore, no HPV testing was performed. . Performed By: #### P TT #### [facility] [address] [place] [address] Kaela Judie Specimen adequacy: Comment Normal [facility] Comment on above: Result Comment: Sati sfactory for evaluation. Endocervical and/or squamous metaplastic cells (endocervical component) are present. Performed By: #### P TT #### [facility] [address] [place] [address] Kaela Judie CBC AUTO DIFFon 02-07-2021 BASO # 0.1 103/ul Normal 0.0-0.1 [facility] Comment on above: Performed By: #### C BC #### [facility] [address] [place] [address] Kaela Judie Basophils/100 WBC (Bld) 0.3 % Normal 0.2-2.0 [facility] Comment on above: Performed By: #### C BC #### [facility] [address] [place] [address] Kaela Judie EO # 0.1 103/ul Normal 0.0-0.7 [facility] Comment on above: Performed By: #### C BC #### [facility] [address] [place] [address] Kaela Judie Eosinophils/100 WBC (Bld) 0.5 % Critically low 0.9-7.0 [facility] Comment on above: Performed By: #### C BC #### [facility] [address] [place] [address] Kaela Judie Erythrocyte distribution width (RBC) [Ratio] 12.3 % Normal 11.0-15.0 [facility] Comment on above: Performed By: #### C BC #### [facility] [address] [place] [address] Kaela Judie Hematocrit (Bld) [Volume fraction] 33.8 % Critically low 36.0-48.0 [facility] Comment on above: Performed By: #### C BC #### [facility] [address] [place] [address] Kaela Judie Hemoglobin (Bld) [Mass/Vol] 11.6 g/dL Critically low 12.0-16.0 [facility] Comment on above: Performed By: #### C BC #### [facility] [address] [place] [address] Kaela Judie IG # 0.20 10e3/ul Critically high 0.00-0.03 [facility] Comment on above: Performed By: #### C BC #### [facility] [address] [place] [address] Kaela Judie IG % 1.2 % Critically high 0.0-0.5 [facility] Comment on above: Performed By: #### C BC #### [facility] [address] [place] [address] Kaela Judie LYMPH # 1.6 103/ul Normal 1.2-3.8 [facility] Comment on above: Performed By: #### C BC #### [facility] [address] [place] [address] Kaela Judie Lymphocytes/100 WBC (Bld) 9.2 % Critically low 20.5-60.0 [facility] Comment on above: Performed By: #### C BC #### [facility] [address] [place] [address] Kaela Judie MANUAL DIFF REQ NO Normal [facility] Comment on above: Performed By: #### C BC #### [facility] [address] [place] [address] Kaela Dimas MCH (RBC) [Entitic mass] 30.8 pg Normal 26.7-34.0 [facility] Comment on above: Performed By: #### C BC #### [facility] [address] [id number] Kaela Dimas MCHC (RBC) [Mass/Vol] 34.3 g/dL Normal 29.9-35.2 [facility] Comment on above: Performed By: #### C BC #### [facility] [address] [place] [id number] Kaela Dimas MCV (RBC) [Entitic vol] 89.7 fL Normal 81.0-99.0 [facility] Comment on above: Performed By: #### C BC #### [facility] [address] [place] [address] Kaela Dimas MONO # 0.9 103/ul Critically high 0.3-0.8 [facility] Comment on above: Performed By: #### C BC #### [facility] [address] [id number] Kaela Dimas Monocytes/100 WBC (Bld) 5.5 % Normal 1.7-12.0 [facility] Comment on above: Performed By: #### C BC #### [facility] [address] [place] [address] Kaela Dimas NEUT # 14.1 103/ul Critically high 1.4-6.5 [facility] Comment on above: Performed By: #### C BC #### [facility] [address] [place], [place] [id number] Kaela Dimas Neutrophils/100 WBC (Bld) 83.3 % Critically high 43.0-75.0 [facility] Comment on above: Performed By: #### C BC #### [facility] [address] [id number] Kaela Dimas Platelet mean volume (Bld) [Entitic vol] 11.0 fL Normal 9.5-13.5 [facility] [facility] Comment on above: Performed By: #### C BC #### [facility] [address] [place] [address] Kaela Dimas PLT 192 103/ul Normal 150-450 [facility] Comment on above: Performed By: #### C BC #### [facility] [address] [place], [place] [id number] Kaela Dimas RBC 3.77 106/ul Critically low 4.20-5.40 [facility] Comment on above: Performed By: #### C BC #### [facility] [address] [place], [place] [id number] Kaela Dimas WBC 16.9 103/ul Critically high 4.0-11.0 [facility] Comment on above: Performed By: #### C BC #### [facility] [address] [place] [address] Kaela Dimas ASYMPTOMATIC COVID-19 ANTIGE Non 02-05-2021 EUA Statement SEE BELOW Normal [facility] Comment on above: Result Comment: This [...] sooner. Performed By: #### G TT3P #### [facility] [address] [place], [place] [id number] Kaela Dimas SARS-CoV-2 (COVID-19) RNA RIGOBERTO+probe Ql (Unsp spec) Negative Normal NEGATIVE [facility] Comment on above: Result Comment: Nega tive results are presumptive. They do not preclude infection and should not be used as the sole basis for treatment decisions. Additional confirmatory testing by a molecular method should be considered. Performed By: #### G TT3P #### [facility] [address] [id number] Kaela Judie CBC AUTO DIFFon 02-05-2021 BASO # 0.1 103/ul Normal 0.0-0.1 [facility] Comment on above: Performed By: #### C BC #### [facility] [address] [id number] Kaela Judie Basophils/100 WBC (Bld) 0.3 % Normal 0.2-2.0 [facility] Comment on above: Performed By: #### C BC #### [facility] [address] [place], [place] [id number] Kaela Judie EO # 0.1 103/ul Normal 0.0-0.7 [facility] Comment on above: Performed By: #### C BC #### [facility] [address] [place], [place] [id number] Kaela Judie Eosinophils/100 WBC (Bld) 0.3 % Critically low 0.9-7.0 [facility] Comment on above: Performed By: #### C BC #### [facility] [address] [place], [place] [id number] Kaela Judie Erythrocyte distribution width (RBC) [Ratio] 12.0 % Normal 11.0-15.0 [facility] Comment on above: Performed By: #### C BC #### [facility] [address] [place], [place] [id number] Kaela Judie Hematocrit (Bld) [Volume fraction] 36.9 % Normal 36.0-48.0 [facility] Comment on above: Performed By: #### C BC #### [facility] [address] [place], [place] [id number] Kaela Judie Hemoglobin (Bld) [Mass/Vol] 12.7 g/dL Normal 12.0-16.0 [facility] Comment on above: Performed By: #### C BC #### [facility] [address] [place], [place] [id number] Kaela Judie IG # 0.19 10e3/ul Critically high 0.00-0.03 [facility] Comment on above: Performed By: #### C BC #### [facility] [address] [place] [address] Kaelastephanie Dimas IG % 1.0 % Critically high 0.0-0.5 [facility] Comment on above: Performed By: #### C BC #### [facility] [address] [place], [place] [id number] Kaelastephanie Dimas LYMPH # 1.4 103/ul Normal 1.2-3.8 [facility] Comment on above: Performed By: #### C BC #### [facility] [address] [place] [address] Kaela Dimas Lymphocytes/100 WBC (Bld) 7.6 % Critically low 20.5-60.0 [facility] Comment on above: Performed By: #### C BC #### [facility] [address] [place] [address] Kaela Dimas MANUAL DIFF REQ NO Normal [facility] Comment on above: Performed By: #### C BC #### [facility] [address] [place] [address] Kaelastephanie Dimas MCH (RBC) [Entitic mass] 30.5 pg Normal 26.7-34.0 [facility] Comment on above: Performed By: #### C BC #### [facility] [address] [place], [place] [id number] Kaela Dimas MCHC (RBC) [Mass/Vol] 34.4 g/dL Normal 29.9-35.2 [facility] Comment on above: Performed By: #### C BC #### [facility] [address] [place] [address] Kaelastephanie Dimas MCV (RBC) [Entitic vol] 88.5 fL Normal 81.0-99.0 [facility] Comment on above: Performed By: #### C BC #### [facility] [address] [place], [place] [id number] Kaela Judie MONO # 1.0 103/ul Critically high 0.3-0.8 [facility] Comment on above: Performed By: #### C BC #### [facility] [address] [place], [place] [address] Kaela Judie Monocytes/100 WBC (Bld) 5.5 % Normal 1.7-12.0 [facility] Comment on above: Performed By: #### C BC #### [facility] [address] [place], [place] [id number] Kaela Dimas NEUT # 15.7 103/ul Critically high 1.4-6.5 [facility] Comment on above: Performed By: #### C BC #### [facility] [address] [place], [place] [id number] Kaela Dimas Neutrophils/100 WBC (Bld) 85.3 % Critically high 43.0-75.0 [facility] Comment on above: Performed By: #### C BC #### [facility] [address] [place], [place] [id number] Kaela Dimas Platelet mean volume (Bld) [Entitic vol] 11.8 fL Normal 9.5-13.5 [facility] Comment on above: Performed By: #### C BC #### [facility] [address] [place] [address] Kaela Dimas PLT 226 103/ul Normal 150-450 [facility] Comment on above: Performed By: #### C BC #### [facility] [address] [place], [place] [address] Kaela Sahuen RBC 4.17 106/ul Critically low 4.20-5.40 [facility] Comment on above: Performed By: #### C BC #### [facility] [address] [place], [place] [id number] Kaela Dimas WBC 18.5 103/ul Critically high 4.0-11.0 [facility] Comment on above: Performed By: #### C BC #### [facility] [address] [place], [place] [id number] Kaela Dimas DRUG SCREEN RAPID (URINE)on 02-05-2021 AMP Negative Normal NEGATIVE [facility] Comment on above: Performed By: #### D RUGRPD #### [facility] [address] [place], [place] [address] Kaela Dimas BAR Negative Normal NEGATIVE [facility] Comment on above: Performed By: #### D RUGRPD #### [facility] [address] [place] [address] Kaela Judie BUP Negative Normal NEGATIVE [facility] Comment on above: Performed By: #### D RUGRPD #### [facility] [address] [place] [address] Kaela Judie BZO Negative Normal NEGATIVE [facility] Comment on above: Performed By: #### D RUGRPD #### [facility] [address] [place] [address] Kaela Judie JERRY Negative Normal NEGATIVE [facility] Comment on above: Performed By: #### D RUGRPD #### [facility] [address] [place] [address] Kaela Judie CUT-OFFS SEE BELOW Normal [facility] Comment on above: Result Comment: AMP [...] ng/mL Performed By: #### D RUGRPD #### [facility] [address] [place] [address] Kaela Judie DRUG CUT HEADER DRUG CLASS TEST SYST EM CUT-OFF CONCENTRATIONS ARE FOLLOWS: Normal [facility] Comment on above: Performed By: #### D RUGRPD #### [facility] [address] [place] [address] Kaela Judie mAMP Negative Normal NEGATIVE [facility] Comment on above: Performed By: #### D RUGRPD #### [facility] [address] [place] [address] Kaela Judie MTD Negative Normal NEGATIVE [facility] Comment on above: Performed By: #### D RUGRPD #### [facility] [address] [place] [address] Kaela Judie OPI Negative Normal NEGATIVE [facility] Comment on above: Performed By: #### D RUGRPD #### [facility] [address] [place] [address] Kaela Judie OXY Negative Normal NEGATIVE [facility] Comment on above: Performed By: #### D RUGRPD #### [facility] [address] [place] [address] Kaela Judie PCP Negative Normal NEGATIVE [facility] Comment on above: Performed By: #### D RUGRPD #### [facility] [address] [place] [address] Kaela Judie PPX Negative Normal NEGATIVE [facility] Comment on above: Performed By: #### D RUGRPD #### [facility] [address] [place] [address] Kaela Judie TCA Negative Normal NEGATIVE [facility] Comment on above: Performed By: #### D RUGRPD #### [facility] [address] [place] [address] Kaela Judie THC Negative Normal NEGATIVE [facility] Comment on above: Performed By: #### D RUGRPD #### [facility] [address] [place] [address] Kaela Judie TYPE AND SCREENon 02-05-2021 TYPE AND SCREEN Negative Normal [facility] Comment on above: Performed By: #### P TT #### [facility] [address] [place] [address] Kaela Dimas GROUP B STREP CULTUREon S. agalactiae Ag Ql (Unsp spec) Culture Observations: NEGATIVE FOR GROUP B STREPTOCOCCUS. Normal [facility] Comment on above: Performed By: #### P TT #### [facility] [address] [place] [address] Kaela Dimas US PREG BIOPHY W NON [...] by: MICHELLE LANE Date: 2021-01-30 08:23 Normal [facility] US PREG GROWTHon 01-30-2021 US PREG [...] by: MICHELLE LANE Date: 2021-01-30 08:25 Normal [facility] US PREG BIOPHY W NON [...] MICHELLE LANE Date: 2021-01-23 07:22 Normal [facility] US PREG BIOPHY W NON STRESSo [...] MICHELLE LANE Date: 2021-01-16 07:31 Normal [facility] PROTEIN 24HR URINEon 021 T PROT, 24 HR UR 603.9 mg/24 hr Critically high 42.0-225.0 [facility] Comment on above: Performed By: #### G TT3P #### [facility] [address] [place] [address] Kaela Judie UR PROT 12.2 mg/dL Critically high <=12.0 [facility] Comment on above: Performed By: #### G TT3P #### [facility] [address] [place] [address] Kaela Judie UR TOT VOL 4950 ml/24 HR Normal [facility] Comment on above: Performed By: #### G TT3P #### [facility] [address] [place] [address] Kaela Judie CBC AUTO DIFFon 01-13-2021 BASO # 0.0 103/ul Normal 0.0-0.1 [facility] Comment on above: Performed By: #### G TT3P #### [facility] [address] [place], [place] [address] Kaela Judie Basophils/100 WBC (Bld) 0.2 % Normal 0.2-2.0 [facility] Comment on above: Performed By: #### G TT3P #### [facility] [address] [id number] Kaela Judie EO # 0.1 103/ul Normal 0.0-0.7 [facility] Comment on above: Performed By: #### G TT3P #### [facility] [address] [id number] Kaela Judie Eosinophils/100 WBC (Bld) 0.6 % Critically low 0.9-7.0 [facility] Comment on above: Performed By: #### G TT3P #### [facility] [address] [place] [address] Kaela Judie Erythrocyte distribution width (RBC) [Ratio] 11.7 % Normal 11.0-15.0 [facility] Comment on above: Performed By: #### G TT3P #### [facility] [address] [place] [address] Kaela Judie Hematocrit (Bld) [Volume fraction] 34.5 % Critically low 36.0-48.0 [facility] Comment on above: Performed By: #### G TT3P #### [facility] [address] [place], [place] [id number] Kaela Judie Hemoglobin (Bld) [Mass/Vol] 12.1 g/dL Normal 12.0-16.0 [facility] Comment on above: Performed By: #### G TT3P #### [facility] [address] [address] Kaela Judie IG # 0.20 10e3/ul Critically high 0.00-0.03 [facility] Comment on above: Performed By: #### G TT3P #### [facility] [address] [address] Kaela Ujdie IG % 1.2 % Critically high 0.0-0.5 [facility] Comment on above: Performed By: #### G TT3P #### [facility] [address] [place] [address] Kaela Judie LYMPH # 1.5 103/ul Normal 1.2-3.8 [facility] Comment on above: Performed By: #### G TT3P #### [facility] [address] [place] [address] Kaelastephanie Dimas Lymphocytes/100 WBC (Bld) 8.6 % Critically low 20.5-60.0 [facility] Comment on above: Performed By: #### G TT3P #### [facility] [address] [place] [address] Kaela Dimas MANUAL DIFF REQ NO Normal [facility] Comment on above: Performed By: #### G TT3P #### [facility] [address] [place] [address] Kaelastephanie Dimas MCH (RBC) [Entitic mass] 30.6 pg Normal 26.7-34.0 [facility] Comment on above: Performed By: #### G TT3P #### [facility] [address] [place] [address] Kaelastephanie Dimas MCHC (RBC) [Mass/Vol] 35.1 g/dL Normal 29.9-35.2 [facility] Comment on above: Performed By: #### G TT3P #### [facility] [address] [place] [address] Kaelastephanie Dimas MCV (RBC) [Entitic vol] 87.3 fL Normal 81.0-99.0 [facility] Comment on above: Performed By: #### G TT3P #### [facility] [address] [place] [address] Kaela Judie MONO # 1.2 103/ul Critically high 0.3-0.8 [facility] Comment on above: Performed By: #### G TT3P #### [facility] [address] [place] [address] Kaela Judie Monocytes/100 WBC (Bld) 6.6 % Normal 1.7-12.0 [facility] Comment on above: Performed By: #### G TT3P #### [facility] [address] [place] [address] Kaela Dimas NEUT # 14.4 103/ul Critically high 1.4-6.5 [facility] Comment on above: Performed By: #### G TT3P #### [facility] [address] [place] [address] Kaela Dimas Neutrophils/100 WBC (Bld) 82.8 % Critically high 43.0-75.0 [facility] Comment on above: Performed By: #### G TT3P #### [facility] [address] [place] [address] Kaela Dimas Platelet mean volume (Bld) [Entitic vol] 12.1 fL Normal 9.5-13.5 [facility] Comment on above: Performed By: #### G TT3P #### [facility] [address] [place] [address] Kaela Dimas PLT 216 103/ul Normal 150-450 [facility] Comment on above: Performed By: #### G TT3P #### [facility] [address] [place] [address] Kaela Dimas RBC 3.95 106/ul Critically low 4.20-5.40 [facility] Comment on above: Performed By: #### G TT3P #### [facility] [address] [place] [address] Kaela Dimas WBC 17.4 103/ul Critically high 4.0-11.0 [facility] Comment on above: Performed By: #### G TT3P #### [facility] [address] [place] [address] Kaela Dimas CULTURE URINEon 01-13-2021 CULTURE URINE Culture Observations : LIGHT GROWTH OF MIXED GENITAL TINO. NO POTENTIAL PATHOGENS SEEN. Normal [facility] Comment on above: Performed By: #### P TT #### [facility] [address] [place] [address] Kaela Dimas LDHon 01-13-2021 LDH 194 U/L Normal 122-222 [facility] Comment on above: Performed By: #### U ELIZABETH, LDH #### [facility] [address] [place] [address] Kaela Sahuen PROF 14(COMP METB)on 021 Albumin [Mass/Vol] 2.7 g/dL Critically low 3.5-5.0 [facility] Comment on above: Performed By: #### G TT3P #### [facility] [address] [place], [place] [id number] Kaela Judie Albumin/Globulin [Mass ratio] 0.9 {ratio} Normal [facility] Comment on above: Performed By: #### G TT3P #### [facility] [address] [place] [address] Kaela Judie ALP [Catalytic activity/Vol] 134 U/L Critically high 38-126 [facility] Comment on above: Performed By: #### G TT3P #### [facility] [address] [place] [address] Kaela Judie ALT [Catalytic activity/Vol] 21 U/L Normal 9-52 [facility] Comment on above: Performed By: #### G TT3P #### [facility] [address] [place] [address] Kaela Judie Anion gap [Moles/Vol] 11.6 mmol/L Normal [facility] Comment on above: Performed By: #### G TT3P #### [facility] [address] [place] [address] Kaela Judie AST [Catalytic activity/Vol] 17 U/L Normal 14-36 [facility] Comment on above: Performed By: #### G TT3P #### [facility] [address] [place] [address] Kaela Judie Bilirubin [Mass/Vol] 0.2 mg/dL Normal 0.2-1.3 [facility] Comment on above: Performed By: #### G TT3P #### [facility] [address] [place] [address] Kaela Judie Calcium [Mass/Vol] 9.1 mg/dL Normal 8.4-10.2 [facility] Comment on above: Performed By: #### G TT3P #### [facility] [address] [place] [address] Kaela Judie Chloride [Moles/Vol] 106 mmol/L Normal 98-107 [facility] Comment on above: Performed By: #### G TT3P #### [facility] [address] [place] [address] Kaela Judie CO2 [Moles/Vol] 25.8 mmol/L Normal 22.0-30.0 [facility] Comment on above: Performed By: #### G TT3P #### [facility] [address] [place] [address] Kaela Judie Creatinine [Mass/Vol] 0.53 mg/dL Normal 0.52-1.04 [facility] Comment on above: Performed By: #### G TT3P #### [facility] [address] [place] [address] Kaela Judie EGFR-AF TONGAN >60 Normal >=60 [facility] Comment on above: Performed By: #### G TT3P #### [facility] [address] [place] [address] Kaela Judie EGFR-NON AF TONGAN >60 Normal >=60 [facility] Comment on above: Performed By: #### G TT3P #### [facility] [address] [place] [address] Kaela Judie Globulin (S) [Mass/Vol] 3.0 g/dL Normal [facility] Comment on above: Performed By: #### G TT3P #### [facility] [address] [place] [address] Kaela Judie Glucose [Mass/Vol] 85 mg/dL Normal 74-106 [facility] Comment on above: Performed By: #### G TT3P #### [facility] [address] [place] [address] Kaela Judie Potassium [Moles/Vol] 3.4 mmol/L Normal 3.4-5.0 [facility] Comment on above: Performed By: #### G TT3P #### [facility] [address] [place] [address] Kaela Judie Protein [Mass/Vol] 5.7 g/dL Critically low 6.1-8.2 [facility] Comment on above: Performed By: #### G TT3P #### [facility] [address] [place] [address] Kaela Judie Sodium [Moles/Vol] 140 mmol/L Normal 137-145 [facility] Comment on above: Performed By: #### G TT3P #### [facility] [address] [place] [address] Kaela Judie Urea nitrogen [Mass/Vol] 10.0 mg/dL Normal 7.0-17.0 [facility] Comment on above: Performed By: #### G TT3P #### [facility] [address] [place] [address] Kaela Judie Urea nitrogen/Creatinine [Mass ratio] 18.9 mg/mg Normal [facility] Comment on above: Performed By: #### G TT3P #### [facility] [address] [place] [address] Kaela Judie PTTon 01-13-2021 aPTT Coag (Bld) [Time] 23.6 s Normal 22.3-36.2 [facility] Comment on above: Performed By: #### P TT #### [facility] [address] [place] [address] Kaelastephanie Dimas URIC ACID SERUMon 01-13-2021 Urate [Mass/Vol] 3.7 mg/dL Normal 2.5-6.2 [facility] Comment on above: Performed By: #### U ELIZABETH, LDH #### [facility] [address] [place] [address] Kaela Judie UA (CLEAN/CATCH) MEDICAL BILLING INSTRUCTOR/MICRO I F IND.on 01-12-2021 Bilirubin Ql (U) Negative Normal NEGATIVE [facility] Comment on above: Performed By: #### U MICRO, UACSIND #### [facility] [address] [place] [address] Kaela Judie Clarity (U) CLEAR Normal CLEAR [facility] Comment on above: Performed By: #### U MICRO, UACSIND #### [facility] [address] [place] [address] Kaela Judie Color (U) LT. YELLOW Normal YELLOW [facility] Comment on above: Performed By: #### U MICRO, UACSIND #### [facility] [address] [address] Kaela Judie Glucose Ql (U) Negative Normal NEGATIVE [facility] Comment on above: Performed By: #### U MICRO, UACSIND #### [facility] [address] [place] [address] Kaela Judie Hemoglobin Ql (U) Negative Normal NEGATIVE [facility] Comment on above: Performed By: #### U MICRO, UACSIND #### [facility] [address] [place] [address] Kaela Judie Ketones Ql (U) Negative Normal NEGATIVE [facility] Comment on above: Performed By: #### U MICRO, UACSIND #### [facility] [address] [place] [address] Kaela Judie LEUKOCYTES TRACE Abnormal NEGATIVE [facility] Comment on above: Performed By: #### U MICRO, UACSIND #### [facility] [address] [place] [address] Kaela Judie Nitrite Ql (U) Negative Normal NEGATIVE [facility] Comment on above: Performed By: #### U MICRO, UACSIND #### [facility] [address] [place] [address] Kaela Judie pH (U) 6.0 [pH] Normal 5-9 [facility] Comment on above: Performed By: #### U MICRO, UACSIND #### [facility] [address] [place] [address] Kaela Judie SPEC GRAVITY 1.025 Normal 1.005-<=1. 025 [facility] Comment on above: Performed By: #### U MICRO, UACSIND #### [facility] [address] [place] [address] Kaela Judie UA PROTEIN Negative Normal NEGATIVE/ TRACE [facility] Comment on above: Performed By: #### U MICRO, UACSIND #### [facility] [address] [place] [address] Kaela Judie UR MICRO IND INDICATED Normal [facility] Comment on above: Performed By: #### U MICRO, UACSIND #### [facility] [address] [place] [address] Kaela Judie Urobilinogen Qn (U) 0.2 {Sylvester'U}/dL Normal 0.2 - 1. 0 [facility] Comment on above: Performed By: #### U MICRO, UACSIND #### [facility] [address] [place] [address] Kaela Judie URINE MICROSCOPIC ONLYon BACTERIA TRACE Abnormal NONE SEEN [facility] Comment on above: Performed By: #### U MICRO, UACSIND #### [facility] [address] [place] [address] Kaela Judie Bacteria identified Cx Nom (U) INDICATED Normal [facility] Comment on above: Performed By: #### U MICRO, UACSIND #### [facility] [address] [place] [address] Kaela Judie CAST NONE SEEN Normal NONE SEEN [facility] Comment on above: Performed By: #### U MICRO, UACSIND #### [facility] [address] [place] [address] Kaela Judie Crystals LM Nom (Urine sed) NONE SEEN Normal NONE SEEN [facility] Comment on above: Performed By: #### U MICRO, UACSIND #### [facility] [address] [place] [address] Kaela Judie Epithelial cells LM Ql (Urine sed) FEW Abnormal NONE SEEN /RARE [facility] Comment on above: Performed By: #### U MICRO, UACSIND #### [facility] [address] [place] [address] Kaela Judie MUCOUS SMALL Abnormal NONE SEEN [facility] Comment on above: Performed By: #### U MICRO, UACSIND #### [facility] [address] [place] [address] Kaela Judie RBC 0-2 Normal 0-2 [facility] Comment on above: Performed By: #### U MICRO, UACSIND #### [facility] [address] [place] [address] Kaela Judie WBC 2-5 Abnormal NONE SEEN [facility] Comment on above: Performed By: #### U MICRO, UACSIND #### [facility] [address] [place] [address] Kaela Dimas US PREG BIOPHY W NON [...] IRINEO COMBS Date: 2021-01-09 07:18 Normal [facility] US PREG GROWTHon 12-31-2020 US PREG [...] cm; 32 weeks 2 days; % EFW: 4.130432, 39% FL/AC: 0.543692 FL/BPD: 0.114169 HC/AC: 1.746408 GESTATIONAL AGE: Age by EDC: 32 weeks 1 day SUSANNA by EDC: 02/24/2021 Age by US: 32 weeks 0 days SUSANNA by US: 02/25/2021 IMPRESSION: Normal interval growth Electronically authenticated by: IRINEO COMBS Date: 2020-12-31 09:38 Normal [facility] GTT 3 HR PREGon 12-12-2020 Glucose [Mass/Vol] 86 mg/dL Normal 74-106 [facility] Comment on above: Performed By: #### G TT3P #### [facility] [address] [place] [address] Kaela Judie Glucose [Mass/Vol] 179 mg/dL Normal [facility] Comment on above: Performed By: #### G TT3P #### [facility] [address] [place] [address] Kaela Judie Glucose [Mass/Vol] 131 mg/dL Normal [facility] Comment on above: Performed By: #### G TT3P #### [facility] [address] [place] [address] Kaela Judie Glucose [Mass/Vol] 145 mg/dL Normal [facility] Comment on above: Performed By: #### G TT3P #### [facility] [address] [place] [address] Kaela Judie GLUCOSE - 1HRon 12-05-2020 Glucose [Mass/Vol] 151 mg/dL Critically high 74-106 T [facility] Comment on above: Result Comment: sherri ent was approximately 5 minutes late for draw Performed By: #### G LU1HR #### [facility] [address] [place] [address] Kaela Judie HEMOGRAM AND PLATELon 2020 Hematocrit (Bld) [Volume fraction] 38.4 % Normal 36.0-48.0 [facility] Comment on above: Performed By: #### G TT3P #### [facility] [address] [place] [address] Kaela Judie Hemoglobin (Bld) [Mass/Vol] 13.2 g/dL Normal 12.0-16.0 [facility] Comment on above: Performed By: #### G TT3P #### [facility] [address] [place] [address] Kaela Judie MCH (RBC) [Entitic mass] 30.8 pg Normal 26.7-34.0 [facility] Comment on above: Performed By: #### G TT3P #### [facility] [address] [place], [place] [address] Kaela Dimas MCHC (RBC) [Mass/Vol] 34.4 g/dL Normal 29.9-35.2 [facility] Comment on above: Performed By: #### G TT3P #### [facility] [address] [place] [address] Kaela Dimas MCV (RBC) [Entitic vol] 89.5 fL Normal 81.0-99.0 [facility] Comment on above: Performed By: #### G TT3P #### [facility] [address] [place] [address] Kaela Dimas PLT 238 103/ul Normal 150-450 [facility] Comment on above: Performed By: #### G TT3P #### [facility] [address] [place], [place] [id number] Kaela Dimas RBC 4.29 106/ul Normal 4.20-5.40 [facility] Comment on above: Performed By: #### G TT3P #### [facility] [address] [place] [address] Kaela Dimas WBC 17.0 103/ul Critically high 4.0-11.0 [facility] Comment on above: Performed By: #### G TT3P #### [facility] [address] [place] [address] Kaela Dimas US PREG GROWTHon 12-03-2020 US [...] cm; 28 weeks 0 days; % EFW: 2.088049, 2 lbs. 10 oz., 40% FL/AC: 0.384500 FL/BPD: 0.266501 HC/AC: 1.176299 GESTATIONAL AGE: Age by EDC: 28 weeks 1 day SUSANNA by EDC: 02/24/2021 Age by US: 20 weeks 2 days SUSANNA by US: 02/23/2021 IMPRESSION: Normal interval growth Electronically authenticated by: IRINEO COMBS Date: 2020-12-03 10:04 Normal [facility] Vital Signs Date Time Vital Sign Value Performing Clinician Facility 08-14-2024 16:26-0500 Body mass index (BMI) [Ratio] 41.65 kg/m2 Scotty Jacquie DO Work Phone: [facility] 08-14-2024 16:26-0500 Body weight 106.65 kg Scotty Jacquie DO Work Phone: [facility] 08-14-2024 16:26-0500 Diastolic blood pressure 80 mm[Hg] Scotty Jacquie DO Work Phone: [facility] 08-14-2024 16:26-0500 Systolic blood pressure 130 mm[Hg] Scotty Jacquie DO Work Phone: [facility] 07-31-2024 15:22-0500 Body mass index (BMI) [Ratio] 41.81 kg/m2 Madisyn KERNS Work Phone: [facility] 07-31-2024 15:22-0500 Body weight 107.05 kg Madisyn KERNS Work Phone: [facility] 07-31-2024 15:22-0500 Diastolic blood pressure 72 mm[Hg] Madisyn Gaona PA Work Phone: [facility] 07-31-2024 15:22-0500 Systolic blood pressure 122 mm[Hg] Madisyn KERNS Work Phone: [facility] 07-17-2024 16:19-0500 Body mass index (BMI) [Ratio] 41.81 kg/m2 Scotty Jacquie DO Work Phone: [facility] 07-17-2024 16:19-0500 Body weight 107.05 kg Scotty Jacquie DO Work Phone: [facility] 07-17-2024 16:19-0500 Diastolic blood pressure 72 mm[Hg] Scotty Jacquie DO Work Phone: [facility] 07-17-2024 16:19-0500 Systolic blood pressure 122 mm[Hg] Scotty Jacquie DO Work Phone: [facility] 07-14-2024 11:13-0500 Body height 160 cm Aniceto Fox MD Work Phone: [facility] 07-14-2024 11:13-0500 Body mass index (BMI) [Ratio] 40.74 kg/m2 Aniceto Fox MD Work Phone: [facility] 07-14-2024 11:13-0500 Body weight 104.33 kg Aniceto Fox MD Work Phone: [facility] 07-14-2024 11:13-0500 Diastolic blood pressure 84 mm[Hg] Aniceto Fox MD Work Phone: [facility] 07-14-2024 11:13-0500 Heart rate 104 /min Aniceto Fox MD Work Phone: [facility] 07-14-2024 11:13-0500 Systolic blood pressure 144 mm[Hg] Aniceto Fox MD Work Phone: [facility] 06-15-2024 15:34-0500 Body mass index (BMI) [...] Phone: [facility] 04-20-2024 08:46-0400 Body mass index (BMI) [Ratio] 39.41 kg/m2 Madisyn Gaona PA Work Phone: [facility] 04-20-2024 08:46-0400 Body weight 100.92 kg Madisyn Jimenez PA Work Phone: [facility] 04-20-2024 08:46-0400 Diastolic blood pressure 82 mm[Hg] Madisyn Meeker PA Work Phone: [facility] 04-20-2024 08:46-0400 Systolic blood pressure 122 mm[Hg] Madisyn Meeker PA Work Phone: [facility] 03-22-2024 11:34-0400 Body mass index (BMI) [Ratio] 39.5 kg/m2 Scotty Jacquie DO Work Phone: [facility] 03-22-2024 11:34-0400 Body weight 101.15 kg Scotty Jacquie DO Work Phone: [facility] 03-22-2024 11:34-0400 Diastolic blood pressure 74 mm[Hg] Scotty Jacquie DO Work Phone: [facility] 03-22-2024 11:34-0400 Systolic blood pressure 122 mm[Hg] Scotty Jacquie DO Work Phone: [facility] 01-31-2024 18:14-0400 Diastolic blood pressure 74 mm[Hg] MD Jacques Mccarthy Work Phone: [facility] 01-31-2024 18:14-0400 Heart rate 100 /min MD Jacques Mccarthy Work Phone: [facility] 01-31-2024 18:14-0400 Respiratory rate 18 /min MD Jacques Mccarthy Work Phone: [facility] 01-31-2024 18:14-0400 SaO2% (BldA) [Mass fraction] 100 % MD Jacques Mccarthy Work Phone: [facility] 01-31-2024 18:14-0400 Systolic blood pressure 156 mm[Hg] MD Jacques Mccarthy Work Phone: [facility] 01-31-2024 14:04-0400 Body height 160.02 cm MD Jacques Mccarthy Work Phone: [facility] 01-31-2024 14:04-0400 Body temperature 97.4 [degF] MD Jacques Mccarthy Work Phone: [facility] 01-31-2024 14:04-0400 Body weight 98.5 kg MD Jacques Mccarthy Work Phone: [facility] Encounters Encounter Date Encounter Type Care Provider Facility Start: 08-16-2024 End: 08-16-2024 Documentation procedure Judie Stearns [facility] Start: 08-15-2024 End: 08-15-2024 Orders Only Judie Stearns [facility] Comment on above: Abnormal ultrasonic finding on screening of mother, antepartum (Primary Dx) Start: 08-15-2024 End: 08-15-2024 Office outpatient visit 25 minutes Terra Lundberg MD Work Phone: [facility] Comment on above: 32 weeks gestation o f (Primary Dx); Gestational diabetes mellitus (GDM) in third trimester, gestational diabetes method of control unspecified; Chronic hypertension affecting ; BMI 40.0-44.9, adult ([facility]); arrhythmia affecting , antepartum; Polyhydramnios affecting ; Separation of chorion and amnion membranes, antepartum Start: 08-14-2024 End: 08-14-2024 flow sheet Scotty Jacquie DO Work Phone: [facility] Comment on above: 32 weeks gestation o f ; Third trimester Start: 08-14-2024 End: 08-14-2024 Bamboo flowsheet Scotty Jacquie DO Work Phone: [facility] Start: 08-14-2024 End: 08-14-2024 Bamboo flowsheet Scotty Jacquie DO Work Phone: [facility] Start: 08-07-2024 End: 08-07-2024 Clinisync Result Encounter [...] 07-31-2024 flow sheet Madisyn KERNS Work Phone: [facility] Comment on above: Third trimester preg red; 30 weeks gestation of Start: 07-31-2024 End: 07-31-2024 ambulatory MADISYN GAONA Not Available Start: 07-31-2024 End: 07-31-2024 Bamboo flowsheet Madisyn KERNS Work Phone: [facility] Start: 07-31-2024 End: 07-31-2024 Bamboo flowsheet Madisyn KERNS Work Phone: [facility] Start: 07-17-2024 End: 07-17-2024 ambulatory SCOTTYNona CONNELLYO Not Available Start: 07-17-2024 End: 07-17-2024 flow sheet Scotty Connellyo DO Work Phone: [facility] Comment on above: Third trimester preg red; 28 weeks gestation of ; Gestational diabetes mellitus (GDM) in third trimester, gestational diabetes method of control unspecified; Hypertension, unspecified type (CMS/HCC); Gestational diabetes mellitus (GDM), antepartum, gestational diabetes method of control unspecified; Elevated glucose tolerance test Start: 07-14-2024 End: 07-14-2024 Office consultation new/estab patient 60 min Aniceto Fox MD Work Phone: [facility] [place] Comment on above: Gestational diabetes mellitus (GDM), antepartum, gestational diabetes method of control unspecified (Primary Dx); Chronic hypertension affecting Start: 07-14-2024 End: 07-14-2024 ambulatory [facility] Start: 07-13-2024 End: 07-13-2024 Clinisync Result Encounter Madisyn KERNS Work Phone: [facility] External Department Unsolicited Start: 07-13-2024 End: 07-13-2024 Clinisync Result Encounter Madisyn KERNS Work Phone: [facility] External Department Unsolicited Start: 06-21-2024 End: 06-21-2024 Chart abstracting Aniceto Fox MD Work Phone: [facility] Start: 06-15-2024 End: 06-15-2024 flow sheet Madisyn [...] 06-15-2024 Bamboo flowsheet Madisyn KERNS Work Phone: [facility] Start: 06-15-2024 End: 06-15-2024 Bamboo flowsheet Madisyn KERNS Work Phone: [facility] Start: 05-18-2024 End: 05-18-2024 Bamboo flowsheet Scotty Jacquie DO Work Phone: [facility] Start: 05-18-2024 End: 05-18-2024 Bamboo flowsheet Scotty Jacquie DO Work Phone: [facility] Start: 05-18-2024 End: 05-18-2024 ambulatory SCOTTY JACQUIE Not Available Start: 05-18-2024 End: 05-18-2024 flow sheet Scotty Jacquie DO Work Phone: [facility] Comment on above: 20 weeks gestation o f ; Second trimester Start: 04-20-2024 End: 04-20-2024 Bamboo flowsheet Madisyn KERNS Work Phone: [facility] Start: 04-20-2024 End: 04-20-2024 Bamboo flowsheet Madisyn KERNS Work Phone: [facility] Start: 04-20-2024 End: 04-20-2024 Office outpatient visit 15 minutes Madisyn KERNS Work Phone: [facility] Comment on above: Screening, , for anatomic survey; Well woman exam with routine gynecological exam; Screen for STD (sexually transmitted disease); Vaginal discharge; Second trimester Start: 04-20-2024 End: 04-20-2024 Patient encounter procedure Madisyn KERNS Work Phone: [facility] Start: 04-20-2024 End: 04-20-2024 ambulatory MADISYN [...] patient visit MD Jacques Mccarthy Work Phone: [facility] Work Phone: Start: 10-08-2021 End: [...] Date Procedure Procedure Detail Performing Clinician Start: 08-14-2024 Urnls dip stick/tabl et rgnt non-auto w/o micrscp Scotty Jacquie DO Work Phone: Start: 08-07-2024 ALL CBC WITH AUTO DIFF Scotty Jacquie DO Work Phone: Start: 08-05-2024 ALL CBC WITH AUTO DIFF Scotty Jacquie DO Work Phone: Start: 08-04-2024 [facility]A (CLEAN/CATCH) MEDICAL BILLING INSTRUCTOR/MICRO IF IND. Scotty Jacquie DO Work Phone: [...] Treatment Date Care Activity Detail Author Start: 08-15-2025 Tobacco Screening Tobacco Screening [facility] Start: 07-14-2025 Adult BMI Screening Adult BMI Screen ing [facility] Start: 06-21-2025 Adult BMI Screening Adult BMI Screen ing [facility] Start: 08-30-2024 End: 08-30-2024 Patient encounter procedure 08/30/2024 10:30 AM EST Office Visit [facility] [address], [place] [id number] Eliud Wilson MD [address] [place] [address] [facility] Start: 08-22-2024 End: 08-22-2024 Patient encounter procedure 08/22/2024 2:30 PM EST Routine [facility] [address] [place] [address] Scotty Dhillon, DO [address] [place] [address] [facility] Start: 08-14-2024 End: 08-14-2024 Patient encounter procedure 08/14/2024 3:30 PM EST Routine [facility] [address] [place] [address] Scotty Dhillon, DO [address] [place] [address] [facility] Start: 07-31-2024 End: 07-31-2024 Patient encounter procedure [facility] Comment on above: Arrived Start: 07-17-2024 End: 07-17-2024 Patient encounter procedure 07/17/2024 3:20 PM EST Routine [facility] [address] [place] [address] Scotty Dhillon, DO [address] [place] [address] [facility] Start: 07-17-2024 End: 07-17-2024 Professional / ancillary services management 07/17/2024 3:00 PM EST Ancillary Procedure [facility] [address] [place] [phone] [facility] Start: 07-17-2024 End: 07-17-2025 US biophysical profile w non stress test US biophysical profile w non stress test Imaging Routine Third trimester Gestational diabetes mellitus (GDM) in third trimester, gestational diabetes method of control unspecified Hypertension, unspecified type ([facility]) Expected: 07/17/2024 (Approximate), Expires: 07/17/2025 [facility] Comment on above: Expected: 07/17/2024 (Approximate), Expires: 07/17/2025 Start: 07-17-2024 End: 07-17-2025 US for US OB SCAN FOR GROWTH Imaging Routine Third trimester Gestational diabetes mellitus (GDM) in third trimester, gestational diabetes method of control unspecified Hypertension, unspecified type ([facility]) Expected: 07/17/2024 (Approximate), Expires: 07/17/2025 [facility] Work Phone: Comment on above: Expected: 07/17/2024 (Approximate), Expires: 07/17/2025 Start: 07-14-2024 End: 07-14-2024 Patient encounter procedure [facility] [place] Start: 06-15-2024 End: 06-15-2024 Patient encounter procedure 06/15/2024 3:30 PM EST Routine [facility] [address] [place] [address] Madisyn Gaona PA [address] [place], [place] [id number] [facility] Start: 06-15-2024 End: 06-15-2025 CBC panel - Blood by Automated count CBC Lab Routine Diabetes mellitus screening Expected: 06/15/2024 (Approximate), Expires: 06/15/2025 [facility] Work Phone: Comment on above: Expected: 06/15/2024 (Approximate), Expires: 06/15/2025 Start: 06-15-2024 End: 06-15-2025 Measurement of glucose 1 hour after glucose challenge for glucose tolerance test Glucose tolerance, 1 hour Lab Routine Diabetes mellitus screening Expected: 06/15/2024 (Approximate), Expires: 06/15/2025 [facility] Comment on above: Expected: 06/15/2024 (Approximate), Expires: 06/15/2025 Start: 05-18-2024 End: 05-18-2024 Patient encounter procedure 05/18/2024 11:40 AM EDT Office Visit [facility] [address] [place] [phone] Scotty Dhillon DO [address] [place], [place] [id number] [facility] Start: 05-18-2024 End: 05-18-2024 Professional / ancillary services management 05/18/2024 10:30 AM EDT Ancillary Procedure [facility] [address] [place] [phone] [facility] Start: 04-20-2024 End: 04-20-2025 [...] Start: 04-20-2024 End: 04-20-2024 Patient encounter procedure [facility] Comment on above: Arrived Start: 04-02-2024 Influenza vaccination Influenza Vacc ine [facility] Start: 03-22-2024 End: 03-22-2024 Patient encounter procedure 03/22/2024 11:20 AM EDT Routine [facility] [address] [place] [phone] Scotty Dhillon DO [address] [place] [address] Arrived [facility] Comment on above: Arrived Start: 2018 Screening for malign ant neoplasm of cervix Pap Smear [facility] Start: 2016 DTaP,Tdap and Td Vaccines (1 - Tdap) DTaP,Tdap and Td Vaccines (1 - Tdap) [facility] Start: 2015 Adult BMI Follow Up Plan Adult BMI Follow Up Plan [facility] Start: 2015 Adult BMI Screening Adult BMI Screen ing [facility] Start: 2009 Depression Screening Depression Scre ening [facility] Start: 2009 Tobacco Screening Tobacco Screening [facility] CBC W Auto Different ial panel - Blood CBC and differential Lab Routine Abnormal CBC Ordered: 03/22/2024 [facility] Work Phone: Comment on above: Ordered: 03/22/2024 Patient Education - Th e Second Month High Blood Pressure ED [facility] Work Phone: Patient referral [facility] Work Phone: Payers Date Payer Category Payer Medicaid [id number] 2024 Medicaid [id number] 2024 Private Health Insurance [id number] 2024 Self-pay 2023 Private Health Insurance [id number] 2022 Medicaid HMO [employer] [id number] 1997 Unknown [id number] 2.16.840.1.873254.3.579.2. 593 1997 Unknown [id number] 2.16.840.1.743046.3.579.2. 593 1997 Unknown [id number] 2.16.840.1.305922.3.579.2. 593 1997 Unknown [id number] 2.16.840.1.760644.3.579.2. 593 1997 Unknown [id number] 2.16.840.1.731645.3.579.2. 593 1997 Unknown [id number] 2.16.840.1.236548.3.579.2. 593 1997 Unknown [id number] 2.16.840.1.986498.3.579.2. 593 1997 Unknown [id number] 2.16.840.1.907709.3.579.2. 593 1997 Unknown [id number] 2.16.840.1.273738.3.579.2. 593 1997 Unknown [id number] 2.16.840.1.966409.3.579.2. 593 1997 Unknown [id number] 2.16.840.1.709332.3.579.2. 593 1997 Unknown [id number] 2.16.840.1.279854.3.579.2. 593 1997 Unknown [id number] 2.16.840.1.487818.3.579.2. 593 1997 Unknown [id number] 2.16.840.1.860308.3.579.2. 593 1997 Unknown [id number] 2.16.840.1.219020.3.579.2. 593 1997 Unknown [id number] 2.16.840.1.035523.3.579.2. 593 1997 Unknown [id number] 2.16.840.1.695108.3.579.2. 593 1997 Unknown [id number] 2.16.840.1.280907.3.579.2. 593 1997 Unknown [id number] 2.16.840.1.264324.3.579.2. 1286 1997 Unknown [id number] 2.16.840.1.053104.3.579.2. 9 1997 Unknown [id number] 2.16.840.1.909004.3.579.2. 9 1997 Unknown [id number] 2.16.840.1.055860.3.579.2. 9 1997 Unknown [id number] 2.16.840.1.872747.3.579.2. 9 1997 Unknown [id number] 2.16.840.1.269837.3.579.2. 9 1997 Unknown [id number] 2.16.840.1.409449.3.579.2. 9 1997 Unknown [id number] 2.16.840.1.901473.3.579.2. 9 1997 Unknown [id number] 2.16.840.1.963149.3.579.2. 9 1997 Unknown [id number] 2.16.840.1.976642.3.579.2. 9 1997 Unknown [id number] 2.16.840.1.097115.3.579.2. 1259 1959 Unknown [id number] 1959 Unknown [id number] 1959 Unknown [id number] Unknown [id number] 2.16.840.1.423543.3.579.2. 531 Social History Date Type Detail Facility Start: 01-13-2024 [facility] Start: 01-31-2024 [facility] Start: 1995 Sex Assigned At [facility] consumption unknown [facility] Start: 1997 Sex assigned at Not on file [facility] Start: 08-23-2020 End: 06-21-2024 Gender identity Not on file [facility] Start: 10-07-2020 End: 07-14-2024 Tobacco smoking status NHIS Ex-smoker [facility] History of tobacco use Current smoker [facility] Start: 10-07-2020 End: 07-14-2024 Tobacco use and exposure Smokeless tobacco non-user [facility] Start: 06-21-2024 End: 08-15-2024 Alcoholic beverage intake Ex-drinker (finding) [facility] Start: 08-23-2020 End: 06-21-2024 History of Social function [facility] Childcare Unknown [facility] Start: 10-07-2020 End: 07-14-2024 Tobacco Comment quit 3 years ago [facility] Start: 08-23-2020 Sex Female (finding) [facility] History of tobacco use Cigarette Smoker P [facility] Medical Equipment Procedure Code Equipment Code Equipment Origin al Text Equipment Identifier Dates 1 strip by In Vi tro route Daily Use in the morning prior to breakfast, 1 hour after each meal for a total of 4times daily. [id number] Start: 07-17-2024 End: 08-16-2024 1 each by In Vit ro route Daily Use to check FSBS four times daily [id number] Start: 07-17-2024 End: 08-16-2024 Clinical Notes 02-05-2021 to 08-16-2024 Judie Stearns RDMS - 08/16/2024 1:35 PM Era Lundberg MD - 08/15/2024 9:15 AM Richar Butt LPN - 08/14/2024 3:30 PM LUIS F Maldonado - 07/31/2024 3:10 PM EST Note Date & Type Note Facility 08-16-2024 History of Present illness Narrative Called patient 08/15/24 and 08/16/24 to inform patient of date and time for the Pediatric Cardiology Consultation. L/M for patient to return my call. documented in this encounter [facility] 08-15-2024 History of Present illness Narrative Video Visit via Real-time Synchronous Audiovisual Provider Location: [facility] AT [address] [facility] [id number] Patient Location: Other [place] Office Patient Location Flight Agent: None Video Visit Consent Statement: I discussed risks, benefits, and alternatives of a real-time synchronous audiovisual consultation with the patient (and any accompanying persons) including the risks that the patient's personal health details and medical records will be discussed over real-time, synchronous, interactive video/audio/telecommunication technology, the visit will not be recorded without the express consent of both the provider and the patient, and that there are some limitations compared to [id number] evaluations. We elected to proceed. REASON FOR OFFICE VISIT: ADD on for polyhydramnios, PACs and chorion amnion separation HISTORY OF PRESENT ILLNESS: Samantha Taylor is a pleasant 29 y.o. G 2 P1 001. at 32w5d due on Estimated Date of Delivery: 10/05/24 . Patient was seen today due to the following 1. Maternal essential hypertension currently on labetalol 300 mg p.o. q.8 hours with good blood pressure control. Low-dose aspirin therapy was started today. BP < 140/90 2. Gestational diabetes managed by the primary OB. Reports fastings 80-93, 1h pp reports <140 aside from 1,2 numbers 3. Maternal increased BMI of 40 and is a candidate for testing. 4. History of prior 1 . Patient is scheduled for repeat at her local hospital. 5. Polyhydramnios 6. PACs 7. Chorion amnion separation Currently the patient has no complaints. The patient denies nausea, vomiting, abdominal pain, vaginal bleeding, SOB or chest pain. Reports good movement. Reports contractions. She tells me she on tocolysis Patient's PMH/PSH,SH,PSYCH Hx, MEDs, ALLERGIES, and ROS were all reviewed and updated in the appropriate sections. Patient Active Problem List Diagnosis Chronic hypertension affecting Gestational diabetes mellitus (GDM), antepartum cardiac outflow tracts on ultrasound BMI 40.0-44.9, adult ([facility]) Past Medical History: Diagnosis Date Anxiety Chronic hypertension affecting PAST OBSTETRICAL HISTORY: OB History 2 Para 1 Term 1 AB Living 1 SAB IAB Ectopic Multiple Live Births 1 SURGICAL HISTORY: Past Surgical History: Procedure Laterality Date SECTION ALLERGIES: No Known Allergies CURRENT MEDICATIONS: Current Outpatient Medications: citalopram (CeleXA) 20 mg tablet, Take 1 tablet (20 mg total) by mouth in the morning., Disp: 30 tablet, Rfl: 0 labetaloL (NORMODYNE) 100 mg tablet, Take 2 tablets (200 mg total) by mouth in the morning and 2 tablets (200 mg total) at noon and 2 tablets (200 mg total) in the evening., Disp: , Rfl: miscellaneous medical supply misc, by miscellaneous route once., Disp: , Rfl: omeprazole (PriLOSEC) 20 mg capsule, Take 1 capsule (20 mg total) by mouth in the morning., Disp: 90 capsule, Rfl: 3 ondansetron (ZOFRAN) 4 mg tablet, Take 4 [...] and the other consultants, we search on [employer] and all the available care everywhere epic I did review all the imaging studies of the patient available on EMR, ordered by the primary care physician and the other life consultant HABITS: Patient activity no restrictions, diet [...] Violence: n Housing Stability: y PHYSICAL EXAMINATION: LMP 12/21/2023 . Video visit appears alert and oriented. Assessment and plan Samantha Taylor is 29 y.o. at 32w5d 1. 32 weeks gestation of 2. Gestational diabetes mellitus (GDM) in third trimester, gestational diabetes method of control unspecified We first started discussing the pathophysiology of metabolic syndrome and gestational diabetes and how it affects her care. We informed the patient that gestational diabetes is a state of carbohydrate intolerance with subsequently insulin resistance and hyperglycemia. This is a malfunction or dysfunction of glucose sensors in the liver with inappropriate release of glucose followed by hyperinsulinemia followed by normal insulin secretion and then relatively deficiency in insulin secretion resulting in both hyperglycemia and associated hypertriglyceridemia. This along with placental hormones such as human placental lactogen and TNF alpha cause hyperglycemia. The patient eventually develops insulin resistance and hyperglycemia Thus the patient's insulin is not sufficient to achieve a normal glycemic state. I informed the patient that maternal hyperglycemia results in hyperglycemia leading to adverse outcomes in the growth and development. This includes development of macrosomia and excess fat deposits in the fetus because of excess insulin released from the pancreas. In addition to that, we spoke to her regarding relative oxygen deficiency resulting in polycythemia. This can result in sludging of blood in small capillaries which if it occurs in critical areas as brain can result in seizures. We also explained regarding the risk of developing hyperbilirubinemia because of rapid destruction of excess red blood cells after the has been delivered. We reviewed with her the strategy for improving and outcome should be to achieve euglycemic state. We explained to the patient that she will need to maintain close contact with or diabetic team both in terms of frequent visits with her during her visits and also through electronic communication. The patient has already initiated this process and is very comfortable with this. We then discussed regarding the monitoring of the fetus in context with these risks and explained to the patient that she would require growth assessment every 4 weeks gestation. Patient was explained that the high risk of shoulder dystocia in fetuses with EFW 4500 gm or higher. I also reviewed with her the long-term risk of developing type 2 diabetes which can be as high as 70-80%. She will need to be screened for diabetes in the . Close follow-up with PCP long-term also recommended. Treatment for diabetes in : Lifestyle modification with a healthy diet and increasing physical activity can help manage hyperglycemia, and is therefore always encouraged. We briefly discussed diet modifications and physical activity. The mainstay of pharmacotherapy for the treatment of diabetes in remains insulin. Oral hypoglycemics, such as metformin, both cross the placenta and are more likely to fail compared to insulin. skilled nursing data on children whose mothers took oral hypoglycemic agents while is limited. Medication is typically initiated when >20-30% of the blood glucose values in one week are out of range. Glucose goals in : Fasting 60 - 95: Mean fasting glucose values are important in managing diabetes in women because they provide overall glycemic estimate, and are predictive of increased fat mass in the women s offspring. Increased fat mass has been shown to be associated with the development of childhood obesity, and diabetes. One hour postprandial 90 - 140: Postprandial measurements are important in management of diabetes in because they are associated with incidence of large for gestational age infants, and lower rates of delivery for cephalopelvic disproportion when well controlled. Discussed monitoring for hypogylcemia, and treatment of hypoglycemia. Discussed her current diet and her awareness of grams of carbohydrate per meal. Encouraged her to be aware of carbohydrate intake and note which foods causing values above goal. Encouraged her on diet modifications. Encouraged patient to check post prandials for all three meals, as we cannot support her to limit risk of hyperglycemia without knowing her BG Also requested she check fasting BG levels 8-10hrs from last eating. The patient desires to have the management of the diabetes by her primary OB and declined further management by MFM 3. Chronic hypertension affecting 4. BMI 40.0-44.9, adult ([facility]) Denies signs and symptoms of preeclampsia and reports stable blood pressure. Precautions given 5. arrhythmia affecting , antepartum premature atrial contractions (PACs) are typically benign, but some cases can be secondary to structural heart disease, and rare cases with frequent PACs can progress to tachyarrhythmia which can compromise well-being. Progression to tachyarrhythmia is more common in cases of frequent PACs, or PACs in a bigeminal or trigeminal pattern. PACs can be intermittent with days or weeks without arrhythmia with later recurrence, but PACs typically improve as gestation progresses. Overall implications of PAC are rare but can result in demise, thus weekly heart-rate monitoring remains advisable to enable early detection of SVT and to prevent cardiac failure. Would recommend at a minimum weekly heart rate evaluation. echocardiogram recommended as congenital heart defects can be associated with the premature atrial contractions. Pediatric cardiology referral initiated I recommended she avoids caffeinated drinks 6. Polyhydramnios affecting Polyhydramnios was noted on sonographic assessment today. The degree of polyhydramnios is frequently categorized as mild, moderate, or severe, based on an JANES of 24.0-29.9 cm, 30.0-34.9 cm, and >=35 cm, or a DVP of 8-11 cm, 12-15 cm, or >=16 cm, respectively. Using these definitions, she has mild polyhydramnios noted today and that accounts for approximately 65-70% of cases. The identification of polyhydramnios should prompt a search for an underlying etiology. The 2 most common causes of polyhydramnios are maternal diabetes mellitus and anomalies. The patient has gestational diabetes. I discussed with the patient the potential etiologies and complications of polyhydramnios. The most common cause is idiopathic with no known etiology. The second most common etiology is diabetes. Other less likely causes include chromosomal or genetic abnormalities and/or anatomic abnormalities that inhibit normal swallowing. I discussed with her the potential for amniocentesis for definitive diagnosis. She desires evaluation if indicated. In addition we discussed the increased risk for complications including premature labor, malpresentation, stillbirth, and hemorrhage. Even in the absence of diabetes, idiopathic polyhydramnios is associated with macrosomia in approximately 15-30% of cases, and affected patients are significantly more likely to undergo delivery. Progression of polyhydramnios is suggestive of an underlying structural or genetic etiology. Reports associating idiopathic polyhydramnios with mortality have been inconsistent and there are no data to suggest that surveillance improves outcomes and surveillance is not required for the sole indication of mild idiopathic polyhydramnios.Women with severe polyhydramnios should be delivered at a tertiary center due to the significant possibility that anomalies may be present. 7. Separation of chorion and amnion membranes, antepartum On ultrasound today there is a chorion amnion separation. This increases the patient risk for complications such as labor, premature rupture of membranes, placental abruption, cord accidents as well as stillbirth. surveillance recommended and weekly fluid checks as well as evaluation of the chorion amnion separation. The patient desires this to be done through primary OB office due to insurance issues. The patient tells me that she has been prescribed nifedipine for contractions. ACOG guidelines were reviewed with the patient. Tocolysis is recommended only for patients receiving corticosteroids to get them through the steroid window. Side effects of the nifedipine were discussed. Long-term use of tocolysis has not been shown to decrease rates of delivery. She desires to further discuss the nifedipine with her primary OB RECOMMENDATION: - Please see original Maternal- medicine consultation note - continue current dose of labetalol - monitor for signs and symptoms of labor - if you would like MFM to start managing the patient diabetes please initiate diabetic education and referral. The patient for now declined - please readdress with the patient the nifedipine use for tocolysis please see above - serial growth ultrasounds every 4 weeks at her OB office - continue with weekly NST and DVP check increase NSTs to twice weekly at 36 weeks. With each ultrasound please evaluate the chorion amnion separation - we will initiate referral to pediatric cardiology - delivery recommended at 37 weeks in the setting of chronic hypertension on medications and now chorion amnion separation. Earlier delivery if indicated clinically - please obtain maternal baseline EKG DISPOSITION: At this point the patient is in complete care of her terminal clerk. Patient does have ultrasound appointment scheduled with us. Thank you for allowing me to participate in Samantha Taylor . If there any questions please do not hesitate to contact us. Sincerely, Terra Lundberg MD, FACOG (she/hers) Maternal- Medicine [address] [place] [address] documented in this encounter [facility] 08-14-2024 History of Present illness Narrative Reason for Appointment: Patient ID: Samantha Taylor is a 29 y.o. female who presents for No chief complaint on file. Patient presents today for Return OB appointment. MEDICATIONS Current Outpatient Medications Medication Instructions Alcohol Swabs (Alcohol Prep Pad) 70 % pads 1 Pad, Topical, Daily, Use four times daily to check FSBS. Blood Glucose Monitoring Suppl ([employer] Glucometer) w/Device kit 1 kit, Does not apply, Daily, Use four times daily to check FSBS. In the morning prior to breakfast & 1 hour after each meal for a total of 4times daily. cephalexin (KEFLEX) 500 mg, 4 times daily citalopram (CELEXA) 20 mg, Oral, Every morning Glucose Blood (Blood Glucose Test) strip 1 strip, In Vitro, Daily, Use in the morning prior to breakfast, 1 hour after each meal for a total of 4times daily. labetalol (Normodyne) 300 MG tablet 1 tablet, 3 times daily Lancets Ultra Thin misc 1 each, In Vitro, Daily, Use to check FSBS four times daily NIFEdipine (PROCARDIA) 10 mg, Every 6 hours scheduled omeprazole (PRILOSEC) 20 mg, Oral, Daily before [...] nursing note reviewed. Exam conducted with a rn long term care present. Vitals: Estimated body mass index is 41.65 kg/m as calculated from the following: Height as of 7/23/24: 5' 3 . Weight as of this encounter: 235 lb 1.9 oz. BP: 130/80 Patient's last menstrual period was 12/21/2023. ASSESSMENT & PLAN ICD-10-CM 1. 32 weeks gestation of Z3A.32 POCT urinalysis dipstick manually resulted 2. Third trimester Z34.93 POCT urinalysis dipstick manually resulted Patient presents today for a routine obstetrics appointment. Patient is currently 32w4d with a Estimated Date of Delivery: 10/05/24. Patient forgot to bring her FSBS log for review. Patient to return to clinic in 1 week. Documented by Angela Butt LPN on behalf of: Scotty Dhillon DO documented in this encounter [facility] 07-31-2024 History of Present illness Narrative Reason for Appointment: Patient ID: Samantha Taylor is a 29 y.o. female who presents for Routine Visit Patient presents today for Return OB appointment. MEDICATIONS Current Outpatient Medications Medication Instructions Alcohol Swabs (Alcohol Prep Pad) 70 % pads 1 Pad, Topical, Daily, Use four times daily to check FSBS. Blood Glucose Monitoring Suppl ([facility] Glucometer) w/Device kit 1 kit, Does not [...] LUIS F Tarango documented in this encounter [facility] 07-17-2024 History of Present illness Narrative Reason [...] encounter [facility] 07-14-2024 History of Present illness Narrative Headache/epigastric pain/blurry vision/swelling? no Cramping/contractions? no Abnormal vaginal discharge? no Spotting/vaginal bleeding? no Loss or gush of fluid like your water may have broken? no Do you have cats at home? no Do you change the litter box (reason: risk of toxoplasmosis)? Genetic testing done this here or other office? yes Have you been seen here at [facility] in a previous ? no Recent ER visits or hospitalizations? no Bring blood sugar log or meter with you today? (Please bring them with you for every visit at [facility]) no Flu vaccine (Jun-September)? no Any [...] outflow tracts on ultrasound BMI 40.0-44.9, adult ([facility]) Past Medical History: Diagnosis Date Anxiety Chronic [...] evening., Disp: , Rfl: miscellaneous medical supply [facility], by miscellaneous route once., Disp: , Rfl: [...] and the other consultants, we search on [employer] and all the available care everywhere [facility] I did review all the imaging studies of the patient available on EMR, ordered by the primary care physician and the other life consultant HABITS: Patient activity no restrictions, diet [...] Other) Comment (BP CUFF SIZE): adult 11 navnona Pulse 104 LMP 12/21/2023 . Gravid abdomen, [...] her 3 hour glucose tolerance test, refer [facility] for diabetes management.. 8. Patient came more than 1 hour late for her ultrasound appointment and therefore has been rescheduled at our [facility] site. DISPOSITION: At this point the patient is in complete care of her terminal clerk. Patient does have ultrasound appointment scheduled with us. Thank you for allowing me to participate in Samantha Taylor . If there any questions please do not hesitate to contact us. Sincerely, ANICETO FOX MD documented in this encounter [facility] 06-15-2024 History of Present illness Narrative Reason [...] LUIS F Tarango documented in this encounter [facility] 05-18-2024 History of Present illness Narrative Reason [...] nursing note reviewed. Exam conducted with a rn long term care present. Vitals: Estimated body mass index is [...] of MSAFP orders to have drawn at [facility] in [place]. Documented by Angela Butt LPN on behalf of: Scotty Dhillon DO documented in this encounter [facility] 04-20-2024 History of Present illness Narrative Reason [...] LUIS F Tarango documented in this encounter [facility] 03-22-2024 History of Present illness Narrative Reason [...] nursing note reviewed. Exam conducted with a rn long term care present. Vitals: Estimated body mass index is [...] or undercooked meat, and stay away from [facility]. Patient has been consulted regarding any further [...] encounter [facility] 02-05-2021 Note OPERATIVE NOTE OPERATION DATE: 02-06-21 ANESTHETIC:Spinal with Duramorph. ENVIRONMENTAL SCIENCE PROFESSOR:ELVIA Prajapati PREOPERATIVE DIAGNOSIS: 1. Intrauterine at 37 [...] to the Recovery Room in stable condition. [facility] Signed and Approved by: DR SCOTTY DHILLON . 02/11/2021 11:15:00 [facility] 02-05-2021 Note DISCHARGE SUMMARY Discharge [...] Tylenol, any abdominal pain unrelieved with narcotics. [facility] Signed and Approved by: DR SCOTTY DHILLON . 02/25/2021 23:13:00 [facility] Evaluation note No assessment inform ation available [facility] Work Phone: Evaluation note Diagnosis [...] Chronic hypertension affecting [facility] Diagnosis Third trimester state, incidental 28 weeks gestation of Gestational diabetes mellitus (GDM) in third trimester, gestational diabetes method of control unspecified Hypertension, unspecified type ([facility]) Gestational diabetes mellitus (GDM), antepartum, [...] gestation of [facility] Diagnosis 32 weeks gestation of Third trimester state, incidental [facility] Diagnosis 32 weeks gestation of - Primary Gestational diabetes mellitus (GDM) in third trimester, gestational diabetes method of control unspecified Chronic hypertension affecting BMI 40.0-44.9, adult ([facility]) arrhythmia affecting , antepartum Abnormality in heart rate/rhythm, antepartum condition or complication Polyhydramnios affecting Separation of chorion and amnion membranes, antepartum [facility] Abnormal ultrasonic finding on screening of mother, antepartum- Primary documented [facility] filedocumented in this encounter [facility] on filedocumented in this [facility]* Attachments The following attachments cannot be sent through Care Everywhere. * Preeclampsia (Serbian) * labor (Serbian) documented in this encounter[facility]ructionsNot on file documented in this encounterProMedin[facility] [employer] SystemInstructionsNot on file [facility] Purpose Family History No Family History Records FoundNo Family History Records FoundNo Family History Records FoundNo Family History Records Found Advance Directives Advance Directive Response Recorded Date/ Time Advance Directives No January 30 4 3:45pm Chief Complaint and Reason for Visit Chief Complaint 6 wks high blood pressure Additional Source Comments INFORMATION SOURCE (unrecogn ized section and content) DATE CREATED AUTHOR 10/15/2021 [facility] DATE CREATED AUTHOR AUTHOR'S ORGANIZ ATION 02/19/2024 [facility] DATE CREATED AUTHOR AUTHOR'S ORGANIZ ATION 07/17/2024 [facility] DATE CREATED AUTHOR AUTHOR'S ORGANIZ ATION 08/02/2024 [facility] EPIC Care Teams (unrecognized sec tion and content) Team Status: Active Member Role Status Dates Jacques Mccarthy MD Primary Care Provider Active Team Status: Inactive Member Role Status Dates Jacques Mccarthy MD Primary Care Provider Active Start: January 31, 2024 End: January 31, 2024 Terry Dudley DO Emergency Provider Active St art: January 31, 2024 End: January 31, 2024 [employer]ap Bpc Developer Relationship Specialty Start Date End Date Jacques Mccarthy MD [address] [place] [address] PCP - General Family Medicine 02/08/24 Sap Bpc Developer Relationship Specialty Start Date End Date Jacques Mccarthy MD [address] [place] [address] PCP - General Family Medicine 02/08/24 Sap Bpc Developer Relationship Specialty Start Date End Date Jacques Mccarthy MD PCP - General Family Medicine 10/07/20 [employer] Bpc Developer Relationship Specialty Start Date End Date Jacques Mccarthy MD [address] [place] [address] PCP - General Family Medicine 02/08/24 Sap Bpc Developer Relationship Specialty Start Date End Date Jacques Mccarthy MD [address] [place] [address] PCP - General Family Medicine 02/08/24 Sap Bpc Developer Relationship Specialty Start Date End Date Jacques Mccarthy MD [address] [facility] [place] [address] PCP - General Family Medicine 02/08/24 Sap Bpc Developer Relationship Specialty Start Date End Date Jacques Mccarthy MD PCP - General Family Medicine 10/07/20 Sap Bpc Developer Relationship Specialty Start Date End Date Jacques Mccarthy MD [address] [facility] [place] [address] PCP - General Family Medicine 02/08/24 Sap Bpc Developer Relationship Specialty Start Date End Date Jacques Mccarthy MD [address] [facility] [place] [address] PCP - General Family Medicine 02/08/24 Sap Bpc Developer Relationship Specialty Start Date End Date Jacques Mccarthy MD [address] [facility] [place] [address] PCP - General Family Medicine 02/08/24 Sap Bpc Developer Relationship Specialty Start Date End Date Jacques Mccarthy MD [address] [facility] [place] [address] PCP - General Family Medicine 02/08/24 Sap Bpc Developer Relationship Specialty Start Date End Date Jacques Mccarthy MD [address] [facility] [place] [place] [address] PCP - General Family Medicine 02/08/24 Sap Bpc Developer Relationship Specialty Start Date End Date Jacques Mccarthy MD [address] [facility] [place] [address] PCP - General Family Medicine 02/08/24 Sap Bpc Developer Relationship Specialty Start Date End Date Jacques Mccarthy MD [address] [place] [address] PCP - General Family Medicine 02/08/24 Sap Bpc Developer Relationship Specialty Start Date End Date Jacques Mccarthy MD [address] [place] [address] PCP - General Family Medicine 02/08/24 Sap Bpc Developer Relationship Specialty Start Date End Date Jacques Mccarthy MD PCP - General Family Medicine 10/07/20 Sap Bpc Developer Relationship Specialty Start Date End Date Jacques Mccarthy MD PCP - General Family Medicine 10/07/20 Sap Bpc Developer Relationship Specialty Start Date End Date Jacques Mccarthy MD PCP - General Family Medicine 10/07/20 Goals (unrecognized section and content) Goals may be documented in a n alternate sectionNot on filedocumented as of this encounterNot on filedocumented as of this encounterNot on filedocumented as of this encounterNot on filedocumented as of this encounterNot on [...] BE BASED ON THE PRIMARY CLINICAL RECORDS. [facility]. provides no warranty or guarantee of the accuracy or completeness of information in this document.
--- NOTE | 2024-08-17 17:08 | US_ITS ---
[address] [address] Patient Name: RADAMES BENJAMIN MRN: [facility]:[id number] date: 1995 Sex: F Assigned Patient Location: [facility] Current Patient Location: Accession/Order Number: [id number] Exam Date: 08/17/2024 17:15 Report Date: 08/17/2024 23:54 At the request of: SCOTTY SULLIVAN Procedure: US OB BPP w non-stress EXAMINATION: US OB BPP w non-stress HISTORY:GESTATIONAL DIABETES MELLITUS O24.419 COMPARISON: Ultrasound OB biophysical 08/10/2024 TECHNIQUE: Ultrasound biophysical profile was performed in the radiology department. BREATHING MOVEMENTS: 2 GROSS BODY MOVEMENTS: 2 TONE: 2 QUALITATIVE AMNIOTIC FLUID VOLUME: 2 PRESENTATION: Cephalic HEART RATE: 148 bpm AMNIOTIC FLUID VOLUME: 25.1 cm; polyhydramnios GESTATIONAL AGE: 33 weeks 0 days US/US OB BPP w non-stress IMPRESSION: 1. Total biophysical profile score: 8 2. Polyhydramnios. Electronically authenticated by: MICHELEL LANE Date: 08/17/2024 23:54
--- NOTE | 2024-08-17 17:10 | US_ITS ---
[address] [address] Patient Name: RADAMES BENJAMIN MRN: [id number] date: 1995 Sex: F Assigned Patient Location: [facility] [place] [facility] [place]ion/Order Number: [id number] Exam Date: 08/17/2024 17:15 Report Date: 08/18/2024 00:01 At the request of: SCOTTY SULLIVAN Procedure: US OB umbilical artery EXAMINATION: US OB umbilical artery HISTORY: GESTATIONAL DIABETES MELLITUS O24.419 COMPARISON: No relevant comparison available. TECHNIQUE: Duplex Doppler evaluation of the umbilical arteries. FINDINGS: HEART RATE: 148 bpm UMBILICAL ARTERIES: 2 GESTATIONAL AGE: 33 weeks 0 days WAVEFORM: Normal upstroke. No notching. Forward flow in diastole. PEAK SYSTOLIC VELOCITY: 78.0 cm/s END DIASTOLIC VELOCITY: 28.3 cm/s SYST/DIAST RATIO (S:D): 2.8 RESISTIVE INDEX: Not calculated US/US OB umbilical artery IMPRESSION: 1. Class 0 = Normal umbilical artery blood velocity Electronically authenticated by: MICHELLE LANE Date: 08/18/2024 00:01
--- NOTE | 2024-08-17 17:22 | US_ITS ---
[address] [address] Patient Name: RADAMES BENJAMIN MRN: [id number] date: 1995 Sex: F Assigned Patient Location: [facility] Current Patient Location: [facility] [place] Accession/Order Number: [id number] Exam Date: 08/17/2024 17:15 Report Date: 08/17/2024 23:58 At the request of: SCOTTY SULLIVAN Procedure: US OB growth EXAMINATION: US OB growth HISTORY: GDM COMPARISON: Ultrasound OB anatomy 05/18/2024 FINDINGS: Heart Rate: 148 bpm Amniotic Fluid Volume: 25.1 cm; greater than 95th percentile. Number: 1 Position: Cephalic BIOMETRY: BPD: 8.94 cm; 36 weeks 1 day; greater than 97th percentile; ; HC: 32.08 cm;; 36 weeks 1 day;; 89% AC: 30.95 cm;; 34 weeks 6 days;; 93% FL: 6.40 cm;; 33 weeks 0 days;; 39% EFW: 2481 g;; 88% FL/AC: 20.66 FL/BPD: 71.57 HC/AC: 1.04 GESTATIONAL AGE: Age by EDC: 33 weeks 0 days SUSANNA by EDC: 10/05/2024 Age by US: 35 weeks 0 days SUSANNA by US: 09/21/2024 US/US OB growth IMPRESSION: 1. Single live intrauterine with growth detailed above. 2. Polyhydramnios. 3. BPD is greater than 97th percentile. Electronically authenticated by: MICHELLE LANE Date: 08/17/2024 23:58
[2024-08-17 18:12] VITALS: BP 142/91; PULSE 86
[2024-08-17 18:23] VITALS: BP 146/91; PULSE 88
[2024-08-17 18:33] VITALS: BP 149/86; PULSE 85
[2024-08-17 18:43] VITALS: BP 165/83; PULSE 86
== END 2024-08-17 18:45 | disposition home or self-care (01) ==
LOC: FBCO 01:06 → FBC 17:02
PROVIDERS: PCP Family Medicine; Visit Provider Obstetrics & Gynecology
DX: O24.419 Gestational diabetes mellitus in pregnancy, unspecified control (principal); O16.3 Unspecified maternal hypertension, third trimester; O41.8X30 Other specified disorders of amniotic fluid and membranes, third trimester, not applicable or unspecified; Z3A.33 33 weeks gestation of pregnancy; O40.3XX0 Polyhydramnios, third trimester, not applicable or unspecified
CPT/HCPCS: 76816; 76818; 76820

== ENCOUNTER 2024-08-21 04:07 | Outpatient (OUT) | payer OTHER, MEDICAID, SELFPAY ==
[2024-08-21] VITALS (11 sets, daily range): BP systolic 144–164; BP diastolic 74–89; PULSE 78–90
--- OUTSIDE RECORDS SUMMARY | 2024-08-21 04:10 | XMS_ITS | CCD ---
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 Name Role Phone JACQUIE, DR FAJARDO Consulting [...] MIGUEL ÁNGEL, DR HANNA Primary Care Unavailable [place], DR IRINEO Pompa Consulting Unavailable JACQUIE, DR [...] Unavailable DAIANAY, DR HANNA Primary Care Unavailable [place], DR IRINEO Pompa Consulting Unavailable JACQUIE, DR [...] DR FAJARDO Admitting Unavailable DAIANAY, DR HANNA [facility] Care Unavailable JACQUIE, DR FAJARDO Consulting Unavailable JACQUIE, DR FAJARDO Attending Unavailable HOY, DR HANNA [facility] Care Unavailable JACQUIE, DR FAJARDO Admitting Unavailable JACQUIE, DR FAJARDO Admitting Unavailable WEST, DR IRINEO Pompa Consulting Unavailable MIGUEL ÁNGEL, DR HANNA [facility] Care Unavailable JACQUIE, DR FAJARDO Attending Unavailable JACQUIE, DR FAJARDO Consulting Unavailable JACQUIE, DR FAJARDO Attending Unavailable MIGUEL ÁNGEL, DR HANNA [facility] Unavailable JACQUIE, DR FAJARDO Admitting Unavailable MD Jacques Mccarthy Primary Care Provider [phone] DO Terry Dudley Emergency Provider Terry Dudley Admitting Unavailable Terry Dudley Attending Unavailable Jacques Mccarthy Primary Care Unavailable Jacques Mccarthy MD Primary Care Provider [phone] Jacques Mccarthy MD Primary Care Provider [phone] ANICETO FOX Attending Unavailable SCOTTY DHILLON R Referring Unavailable JACQUES MCCARTHY Primary Care Unavailable SCOTTY DHILLON Attending Unavailable MADISYN GAONA Attending Unavailable SCOTTY DHILLON Attending Unavailable MADISYN GAONA Attending Unavailable SCOTTY DHILLON Attending Unavailable JIMENEZ, MADISYN Attending Unavailable SCOTTY DHILLON Attending Unavailable MADISYN GAONA Attending Unavailable SCOTTY DHILLON Attending Unavailable JACQUES MCCARTHY Primary Care Unavailable SCOTTY DHILLON Referring Unavailable NUBIA LUNDBERG Attending Unavailable SCOTTY DHILLON Referring Unavailable JACQUES MCCARTHY Primary Care Unavailable Medications Current Medications Medication Drug Class(es) [...] on screening of mother] 08-15-2024 Episodic Other complications of (1 source) Maternal care for abnormalities of the heart rate or rhythm, unspecified trimester, not applicable or unspecified; Translations: [Maternal care for abnormalities of the heart rate or rhythm, unspecified trimester, not applicable or unspecified] Onset: 08-15-2024 Episodic Other nutritional; endocrine; and metabolic disorders (6 sources) Body mass index 40+ - severely obese; Translations: [Body mass index (BMI) 40.0-44.9, adult] Onset: 06-21-2024 06-21-2024 Chronic Other nutritional; endocrine; and metabolic disorders (1 source) Body mass index (BMI) 40.0-44.9, adult; Translations: [Body mass index (BMI) 40.0-44.9, adult] Onset: 06-21-2024 Chronic Other and delivery including normal (20 sources) Encounter for care and examination of lactating mother; Translations: [Single live ] Onset: 02-11-2021 Episodic Other screening for suspected conditions (not mental disorders or infectious disease) (19 sources) Encounter for screening for malignant neoplasm of cervix; Translations: [Encounter for screening for Streptococcus B] Onset: 12-05-2020 Episodic Polyhydramnios and other problems of amniotic cavity (10 sources) Polyhydramnios; Translations: [Polyhydramnios, unspecified trimester, not [...] [32 weeks gestation of ] 08-14-2024 Episodic Residual codes; unclassified (1 source) 32 weeks gestation of ; Translations: [32 weeks gestation of ] Onset: 08-15-2024 Episodic Unclassified (1 source) CONTACT W/AND (SUSP) [...] UA Negative Negative - 4(70) +++ mg/dL [facility] Blood, UA Positive Negative - 50 Hardeep/mcL [facility] Comment on above: trace-intact Clarity, UA Clear [facility] Color, UA Yellow [facility] Glucose, UA Negative Negative - 1999(110) ++++ mg/dL [facility] Interpretation and review of laboratory results Abnormal [facility] Ketones, UA Positive Negative - 160(16) ++++ mg/dL [facility] Comment on above: 40 Leukocytes, UA Negative Negative - 500+++ Renee/mcL [facility] Nitrite, UA Negative Negative - Positive [facility] pH, UA 6 5 - 9 [facility] Protein, UA Trace Negative - 2000(20) ++++ mg/dL [facility] Spec Grav, UA 1.02 1 - 1.03 [facility] Urobilinogen, UA 0.2 0.2 - 12 mg/dL [facility] ALL CBC WITH AUTO DIFFon BASOPHILS ABSOLUTE AUTO 0.1 [facility] Basophils/100 WBC (Bld) 0.3 % 0.2 - 2.0 % [facility] Eosinophils/100 WBC (Bld) 0.6 % Low 0.9 - 7.0 % [facility] Erythrocyte distribution width (RBC) [Ratio] 12.2 % 11.0 - 15.0 % [facility] Hematocrit (Bld) [Volume fraction] 36.7 % 36.0 - 48.0 % [facility] Hemoglobin (Bld) [Mass/Vol] 12.5 g/dL 12.0 - 16.0 g/dL [facility] IMMATURE GRANULOCYTES ABS AUTO 0.33 High [facility] Immature granulocytes/100 WBC (Bld) 2 % High 0.0 - 0.5 % [facility] Interpretation and review of laboratory results Abnormal [facility] LYMPHOCYTES ABSOLUTE AUTO 1.6 [facility] Lymphocytes/100 WBC (Bld) 9.9 % Low 20.5 - 60.0 % [facility] MCH (RBC) [Entitic mass] 29.7 pg 26.7 - 34.0 pg [facility] MCHC (RBC) [Mass/Vol] 34.1 g/dL 29.9 - 35.2 g/dL [facility] MCV (RBC) [Entitic vol] 87.2 fL 81.0 - 99.0 fL [facility] MONOCYTES ABSOLUTE AUTO 1 High [facility] Monocytes/100 WBC (Bld) 6.3 % 1.7 - 12.0 % [facility] NEUTROPHILS ABSOLUTE AUTO 13.2 High [facility] Neutrophils/100 WBC (Bld) 80.9 % High 43.0 - 75.0 % [facility] Platelet mean volume (Bld) [Entitic vol] 10.5 fL 9.5 - 13.5 fL [facility] EO # 0.1 [facility] PLT 247 [facility] RBC 4.21 [facility] WBC 16.3 High [facility] ALL CBC WITH AUTO DIFFon BASOPHILS ABSOLUTE AUTO 0.1 [facility] Basophils/100 WBC (Bld) 0.3 % 0.2 - 2.0 % [facility] Eosinophils/100 WBC (Bld) 0.2 % Low 0.9 - 7.0 % [facility] Erythrocyte distribution width (RBC) [Ratio] 12.1 % 11.0 - 15.0 % [facility] Hematocrit (Bld) [Volume fraction] 35.3 % Low 36.0 - 48.0 % [facility] Hemoglobin (Bld) [Mass/Vol] 12.1 g/dL 12.0 - 16.0 g/dL [facility] IMMATURE GRANULOCYTES ABS AUTO 0.31 High [facility] Immature granulocytes/100 WBC (Bld) 1.7 % High 0.0 - 0.5 % [facility] Interpretation and review of laboratory results Abnormal [facility] LYMPHOCYTES ABSOLUTE AUTO 1.4 [facility] Lymphocytes/100 WBC (Bld) 7.9 % Low 20.5 - 60.0 % [facility] MCH (RBC) [Entitic mass] 29.8 pg 26.7 - 34.0 pg [facility] MCHC (RBC) [Mass/Vol] 34.3 g/dL 29.9 - 35.2 g/dL [facility] MCV (RBC) [Entitic vol] 86.9 fL 81.0 - 99.0 fL [facility] MONOCYTES ABSOLUTE AUTO 1.3 High [facility] Monocytes/100 WBC (Bld) 7.1 % 1.7 - 12.0 % [facility] NEUTROPHILS ABSOLUTE AUTO 15.1 High [facility] Neutrophils/100 WBC (Bld) 82.8 % High 43.0 - 75.0 % [facility] Platelet mean volume (Bld) [Entitic vol] 10.5 fL 9.5 - 13.5 fL [facility] EO # 0 [facility] PLT 217 [facility] RBC 4.06 Low [facility] TB WBC 18.2 High [facility] TB UA (CLEAN/CATCH) WORKFORCE ANALYST/KEYLA RO IF IND.on 08-04-2024 BILIRUBIN URINE Negative NEGATIVE [facility] BLOOD URINE Negative NEGATIVE [facility] Clarity (U) CLEAR CLEAR [facility] Color (U) YELLOW YELLOW [facility] GLUCOSE URINE UA 500 mg/dL Abnormal NEGATIVE [facility] Interpretation and review of laboratory results Abnormal [facility] Ketones Ql (U) Negative NEGATIVE mg/dL [facility] Leukocyte esterase Test strip Ql (U) Negative NEGATIVE [facility] NITRITE URINE Negative NEGATIVE [facility] pH (U) 6.0 [pH] 5.0 - 9.0 [facility] PROTEIN URINE Negative NEG/TRACE mg/dL [facility] SPECIFIC GRAVITY URINE 1.025 1.005 - 1.025 [facility] URINE MICROSCOPIC INDICATED NO [facility] UROBILINOGEN URINE 0.2 EU/dL 0.2 - 1.0 EU/dL [facility] Urinalysis macro (dipstick) panel (U)on 07-31-2024 Bilirubin, UA Negative Negative - 4(70) +++ mg/dL [facility] Blood, UA Positive Negative - 50 Hardeep/mcL [facility] Comment on above: small Clarity, UA Clear [facility] Color, UA Yellow [facility] Glucose, UA Positive Negative - 1999(110) ++++ mg/dL [facility] Comment on above: 250 Interpretation and review of laboratory results Abnormal [facility] Ketones, UA Negative Negative - 160(16) ++++ mg/dL [facility] Leukocytes, UA Negative Negative - 500+++ Renee/mcL [facility] Nitrite, UA Negative Negative - Positive [facility] pH, UA 6 5 - 9 [facility] Protein, UA Trace Negative - 1999(20) ++++ mg/dL [facility] Spec Grav, UA 1.02 1 - 1.03 [facility] Urobilinogen, UA 0.2 0.2 - 12 mg/dL [facility] Urinalysis macro (dipstick) panel (U)on 07-17-2024 Bilirubin, UA Negative Negative - 4(70) +++ mg/dL [facility] Blood, UA Negative Negative - 50 Hardeep/mcL [facility] Clarity, UA Clear [facility] Color, UA Yellow [facility] Glucose, UA Positive Negative - 1999(110) ++++ mg/dL [facility] Comment on above: 500 Interpretation and review of laboratory results Abnormal [facility] Ketones, UA Positive Negative - 160(16) ++++ mg/dL [facility] Comment on above: TRACE Leukocytes, UA Negative Negative - 500+++ Renee/mcL [facility] Nitrite, UA Negative Negative - Positive [facility] pH, UA 5.5 5 - 9 [facility] Protein, UA Negative Negative - 1999(20) ++++ mg/dL [facility] Spec Grav, UA 1.02 1 - 1.03 [facility] Urobilinogen, UA 0.2 0.2 - 12 mg/dL [facility] Glucose random or fasting- P OCTon 07-14-2024 External Glucose Fasting Or Random (Fbs) 169 [facility] ALL CBC WITH AUTO DIFFon BASOPHILS ABSOLUTE AUTO 0.1 [facility] Basophils/100 WBC (Bld) 0.3 % 0.2 - 2.0 % [facility] Eosinophils/100 WBC (Bld) 0.3 % Low 0.9 - 7.0 % [facility] Erythrocyte distribution width (RBC) [Ratio] 12.1 % 11.0 - 15.0 % [facility] Hematocrit (Bld) [Volume fraction] 37.3 % 36.0 - 48.0 % [facility] Hemoglobin (Bld) [Mass/Vol] 12.7 g/dL 12.0 - 16.0 g/dL [facility] IMMATURE GRANULOCYTES ABS AUTO 0.32 High [facility] Immature granulocytes/100 WBC (Bld) 1.8 % High 0.0 - 0.5 % [facility] Interpretation and review of laboratory results Abnormal [facility] LYMPHOCYTES ABSOLUTE AUTO 1.5 [facility] Lymphocytes/100 WBC (Bld) 8.3 % Low 20.5 - 60.0 % [facility] MCH (RBC) [Entitic mass] 30.3 pg 26.7 - 34.0 pg [facility] MCHC (RBC) [Mass/Vol] 34 g/dL 29.9 - 35.2 g/dL [facility] MCV (RBC) [Entitic vol] 89 fL 81.0 - 99.0 fL [facility] MONOCYTES ABSOLUTE AUTO 0.9 High [facility] Monocytes/100 WBC (Bld) 5.2 % 1.7 - 12.0 % [facility] NEUTROPHILS ABSOLUTE AUTO 15 High [facility] Neutrophils/100 WBC (Bld) 84.1 % High 43.0 - 75.0 % [facility] Platelet mean volume (Bld) [Entitic vol] 10.4 fL 9.5 - 13.5 fL [facility] EO # 0.1 [facility] PLT 255 [facility] RBC 4.19 Low [facility] WBC 17.8 High [facility] Urinalysis macro (dipstick) panel (U)on 06-15-2024 Bilirubin, UA Negative Negative - 4(70) +++ mg/dL [facility] Blood, UA Negative Negative - 50 Hardeep/mcL [facility] Clarity, UA Clear [facility] Color, UA Yellow [facility] Glucose, UA Positive Negative - 2000(110) ++++ mg/dL [facility] Interpretation and review of laboratory results Abnormal [facility] Ketones, UA Negative Negative - 160(16) ++++ mg/dL [facility] Leukocytes, UA Positive Negative - 500+++ Renee/mcL [facility] Nitrite, UA Negative Negative - Positive [facility] pH, UA 5.5 5 - 9 [facility] Protein, UA Negative Negative - 1999(20) ++++ mg/dL [facility] Spec Grav, UA 1.02 1 - 1.03 [facility] Urobilinogen, UA 1.0 0.2 - 12 mg/dL [facility] Urinalysis macro (dipstick) panel (U)on 05-18-2024 Bilirubin, UA Negative Negative - 4(70) +++ mg/dL [facility] Blood, UA Negative Negative - 50 Hardeep/mcL [facility] Clarity, UA Clear [facility] Color, UA Yellow [facility] Glucose, UA Negative Negative - 1999(110) ++++ mg/dL [facility] Interpretation and review of laboratory results Normal [facility] Ketones, UA Negative Negative - 160(16) ++++ mg/dL [facility] Leukocytes, UA Negative Negative - 500+++ Renee/mcL [facility] Nitrite, UA Negative Negative - Positive [facility] pH, UA 7 5 - 9 [facility] Protein, UA Negative Negative - 1999(20) ++++ mg/dL [facility] Spec Grav, UA 1.025 1 - 1.03 [facility] Urobilinogen, UA 0.2 0.2 - 12 mg/dL [facility] Urinalysis macro (dipstick) panel (U)on 04-20-2024 Bilirubin, UA Positive Negative - 4(70) +++ mg/dL [facility] Comment on above: small Blood, UA Negative Negative - 50 Hardeep/mcL [facility] Clarity, UA Clear [facility] Color, UA Yellow [facility] Glucose, UA Negative Negative - 1999(110) ++++ mg/dL [facility] Interpretation and review of laboratory results Abnormal [facility] Ketones, UA Positive Negative - 160(16) ++++ mg/dL [facility] Comment on above: trace Leukocytes, UA Negative Negative - 500+++ Renee/mcL [facility] Nitrite, UA Negative Negative - Positive [facility] pH, UA 6.5 5 - 9 [facility] Protein, UA Trace Negative - 1999(20) ++++ mg/dL [facility] Spec Grav, UA 1.030 1 - 1.03 [facility] Urobilinogen, UA 1.0 0.2 - 12 mg/dL [facility] Activated partial thrombopla stin time (aPTT) in platelet poor plasma by coagulation aOrdered By: Terry Dudley on 01-31-2024 aPTT Coag (PPP) [Time] 26.1 s 25.1-36.5 [facility] Comment on above: A hematocrit value g reater than 55% may lead to inaccurate results in coagulation testing. Patients having hematocrit values >55% require a special collection tube for coagulation studies. Please contact the laboratory at [phone] for redraw instructions. Alanine aminotransferase [En zymatic activity/volume] in Serum or PlasmaOrdered By: Terry Dudley on 01-31-2024 ALT [Catalytic activity/Vol] 22 U/L Normal 7-52 [facility] Comment on above: Performed By: #### H S TROP, PTT, CMP, DDIMER, BNP, CK, PT, CBC #### [facility] [address] [place] [address] [place] Albumin [Mass/volume] in Ser um or Plasma by Bromocresol green (BCG) dye binding methoOrdered By: Terry Dudley on 01-31-2024 Albumin BCG dye [Mass/Vol] 4.7 g/dL 3.5-5.7 [facility] Alkaline phosphatase [Enzyma tic activity/volume] in Serum or PlasmaOrdered By: Terry Dudley on 01-31-2024 ALP [Catalytic activity/Vol] 67 U/L Normal 34-104 [facility] Comment on above: Performed By: #### H S TROP, PTT, CMP, DDIMER, BNP, CK, PT, CBC #### [facility] [address] [place] [address] [place] Aspartate aminotransferase [ Enzymatic activity/volume] in Serum or PlasmaOrdered By: Terry Dudley on 01-31-2024 AST [Catalytic activity/Vol] 17 U/L Normal 13-39 [facility] Comment on above: Performed By: #### H S TROP, PTT, CMP, DDIMER, BNP, CK, PT, CBC #### [address] Automated basophil %Ordered By: Terry Dudley on 01-31-2024 Basophils/100 WBC (Bld) 0.6 % Normal . [facility] Comment on above: Performed By: #### H S TROP, PTT, CMP, DDIMER, BNP, CK, PT, CBC #### [address] Automated basophil countOrde red By: Terry Dudley on 01-31-2024 Basophils (Bld) [#/Vol] 0.1 10*3/uL Normal 0.0-0.2 [facility] Comment on above: Result Comment: PERF ORMED BY: [place] [address] PATHOLOGIST [employer] PERSON CARLOS HITCHCOCK M.D. Performed By: #### H S TROP, PTT, CMP, DDIMER, BNP, CK, PT, CBC #### [address] Automated blood monocyte cou ntOrdered By: Terry Dudley on 01-31-2024 Monocytes (Bld) [#/Vol] 1.3 10*3/uL High 0.0-0.8 [facility] Comment on above: Performed By: #### H S TROP, PTT, CMP, DDIMER, BNP, CK, PT, CBC #### [address] Automated eosinophil %Ordere d By: Terry Dudley on 01-31-2024 Eosinophils/100 WBC (Bld) 0.3 % Normal . [facility] Comment on above: Performed By: #### H S TROP, PTT, CMP, DDIMER, BNP, CK, PT, CBC #### [address] Automated eosinophil countOr dered By: Terry Dudley on 01-31-2024 Eosinophils (Bld) [#/Vol] 0.1 10*3/uL Normal 0.0-0.45 [facility] Comment on above: Performed By: #### H S TROP, PTT, CMP, DDIMER, BNP, CK, PT, CBC #### [address] Automated monocyte %Ordered By: Terry Dudley on 01-31-2024 Monocytes/100 WBC (Bld) 7.5 % Normal . [facility] Comment on above: Performed By: #### H S TROP, PTT, CMP, DDIMER, BNP, CK, PT, CBC #### [address] Automated neutrophil %Ordere d By: Terry Dudley on 01-31-2024 Neutrophils/100 WBC (Bld) 79.8 % Normal . [facility] Comment on above: Performed By: #### H S TROP, PTT, CMP, DDIMER, BNP, CK, PT, CBC #### [address] BNP ser/plasOrdered By: Delgado Dudley on 01-31-2024 Natriuretic peptide B (Bld) [Mass/Vol] 30.0 pg/mL Normal 5-100 [facility] Comment on above: Result Comment: PERF ORMED BY: [place] [address] PATHOLOGIST [employer] PERSON CARLOS HITCHCOCK M.D. Performed By: #### H S TROP, PTT, CMP, DDIMER, BNP, CK, PT, CBC #### [address] Bilirubin Test strip Ql (U)O rdered By: Terry Dudley on 01-31-2024 Bilirubin Ql (U) Negative Negative [facility] Bilirubin.total [Mass/volume ] in Serum or PlasmaOrdered By: Terry Dudley on 01-31-2024 Bilirubin [Mass/Vol] 0.5 mg/dL Normal 0.3-1.0 [facility] Comment on above: Performed By: #### H S TROP, PTT, CMP, DDIMER, BNP, CK, PT, CBC #### [address] Calcium [Mass/volume] in Ser um or PlasmaOrdered By: Terry Dudley on 01-31-2024 Calcium [Mass/Vol] 9.6 mg/dL Normal 8.6-10.3 [facility] Comment on above: Performed By: #### H S TROP, PTT, CMP, DDIMER, BNP, CK, PT, CBC #### [address] Carbon dioxide, total [Moles /volume] in Serum or PlasmaOrdered By: Terry Dudley on 01-31-2024 CO2 [Moles/Vol] 30.1 mmol/L Normal 21.0-31.0 [facility] Comment on above: Performed By: #### H S TROP, PTT, CMP, DDIMER, BNP, CK, PT, CBC #### [address] Chloride [Moles/volume] in S marty or PlasmaOrdered By: Terry Dudley on 01-31-2024 Chloride [Moles/Vol] 101 mmol/L Normal 98-107 [facility] Comment on above: Performed By: #### H S TROP, PTT, CMP, DDIMER, BNP, CK, PT, CBC #### [address] Color of Urine by AutoOrdere d By: Terry Dudley on 01-31-2024 Color (U) Colorless Normal Yellow [facility] Comment on above: Order Comment: Name Collection Type:: Clean-Voided Midstream Performed By: #### U A, UHCG #### [address] Complete Blood Count Auto Di ffon 01-31-2024 Mean Corpuscular HGB Conc 34.6 g/dL Normal 32.0-35.0 [facility] Comment on above: Performed By: #### H S TROP, PTT, CMP, DDIMER, BNP, CK, PT, CBC #### [address] Monocytes/100 WBC (Bld) 14.85 % Normal 0.00-20.00 [facility] Comment on above: Performed By: #### H S TROP, PTT, CMP, DDIMER, BNP, CK, PT, CBC #### [address] NRBC% 0.0 /100{WBC} Normal 0-0.5 [facility] Comment on above: Performed By: #### H S TROP, PTT, CMP, DDIMER, BNP, CK, PT, CBC #### [address] Comprehensive Metabolic Pane urszula 01-31-2024 Albumin [Mass/Vol] 4.7 g/dL Normal 3.5-5.7 [facility] Comment on above: Performed By: #### H S TROP, PTT, CMP, DDIMER, BNP, CK, PT, CBC #### [address] Creatinine Clr Calc Pharmacy 119.17 Normal [facility] Comment on above: Result Comment: PERF ORMED BY: [place] [address] PATHOLOGIST [employer] PERSON CARLOS HITCHCOCK M.D. Performed By: #### H S TROP, PTT, CMP, DDIMER, BNP, CK, PT, CBC #### [address] GFR/1.73 sq M.predicted MDRD (S/P/Bld) [Vol rate/Area] mL/min/{1.73_m2} Normal [facility] Comment on above: Performed By: #### H S TROP, PTT, CMP, DDIMER, BNP, CK, PT, CBC #### [address] Creatine kinase [Enzymatic a ctivity/volume] in Serum or PlasmaOrdered By: Terry Dudley on 01-31-2024 CK [Catalytic activity/Vol] 76 U/L Normal 30-223 [facility] Comment on above: Performed By: #### H S TROP, PTT, CMP, DDIMER, BNP, CK, PT, CBC #### [place] [id number] [facility] Creatinine [Mass/volume] in Serum or PlasmaOrdered By: Terry Dudley on 01-31-2024 Creatinine [Mass/Vol] 0.80 mg/dL Normal 0.60-1.20 [facility] Comment on above: Performed By: #### H S TROP, PTT, CMP, DDIMER, BNP, CK, PT, CBC #### [facility] [address] [place] [id number] [facility] D-Dimer High Sensitivityon 0 01-31-2024 D-Dimer High Sensitivity < 200 Normal 0-243 [facility] Comment on above: Result [...] coagulation studies. Please contact the laboratory at [phone] for redraw instructions. PERFORMED BY: [place] [address] PATHOLOGIST [employer] PERSON CARLOS HITCHCOCK M.D. Performed By: #### H S TROP, PTT, CMP, DDIMER, BNP, CK, PT, CBC #### [address] [address] [facility] ECG 12 lead ECGon 01-31-2024 ECG 12 lead ECG [facility] Main [place] [address] [place], [place] [id number] Electrocardiograph Report Signed Patient: Samantha Taylor MR#: [id number] : 1995 Acct:[id number] Age/Sex: 28 / F ADM Date: 01/31/24 Loc: ER Room: Type: DEP ER Attending Dr: Ordering Provider: Terry Dudley [...] Terry Dudley DO 1921 Normal [facility] Erythrocyte distribution wid th [Ratio] by Automated countOrdered By: Terry Dudley on 01-31-2024 Erythrocyte distribution width (RBC) [Ratio] 12.4 % Normal 11.9-15.3 [facility] Comment on above: Performed By: #### H S TROP, PTT, CMP, DDIMER, BNP, CK, PT, CBC #### [facility] [address] Erythrocytes [#/volume] in B lood by Automated countOrdered By: Terry Dudley on 01-31-2024 RBC (Bld) [#/Vol] 4.93 10*6/uL Normal 3.60-5.00 [facility] Comment on above: Performed By: #### H S TROP, PTT, CMP, DDIMER, BNP, CK, PT, CBC #### [facility] [address] Fibrin D-dimer [Presence] in Platelet poor plasma by Latex agglutinationOrdered By: Terry Dudley on 01-31-2024 Fibrin D-dimer LA Ql (PPP) < 200 ng/mL 0-243 [facility] Comment on above: The reference range [...] coagulation studies. Please contact the laboratory at [phone] for redraw instructions. Glucose [Mass/volume] in Ser um or PlasmaOrdered By: Terry Dudley on 01-31-2024 Glucose [Mass/Vol] 91 mg/dL Normal 70-100 [facility] Comment on above: ADA recommended refe rence rangeRandom Glucose Reference Range is dependent on time and content of last meal. Glucose of more than 200 mg/dL in a nonstressed, ambulatory subject supports the diagnosis of Diabetes Mellitus. Result Comment: Valier om Glucose Reference Range is dependent on time and content of last meal. Glucose of more than 200 mg/dL in a nonstressed, ambulatory subject supports the diagnosis of Diabetes Mellitus. ADA recommended reference range Performed By: #### H S TROP, PTT, CMP, DDIMER, BNP, CK, PT, CBC #### [address] Glucose [Mass/volume] in Uri ne by Test stripOrdered By: Terry Dudley on 01-31-2024 Glucose Test strip (U) [Mass/Vol] Normal mg/dL Normal [facility] HCG ( test) IA.rapi d Ql (U)Ordered By: Terry Dudley on 01-31-2024 HCG ( test) Ql (U) Positive High [facility] HCG,Urineon 01-31-2024 Beta HCG ( test) Ql (U) Positive High [facility] Comment on above: Order Comment: Name Collection Type:: Clean-Voided Midstream Result Comment: PERF ORMED BY: [facility] [address] [place] [address] PATHOLOGIST [employer] PERSON CARLOS HITCHCOCK M.D. Performed By: #### H S TROP, PTT, CMP, DDIMER, BNP, CK, PT, CBC #### [facility] [address] Hematocrit [Volume Fraction] of Blood by Automated countOrdered By: Terry Dudley on 01-31-2024 Hematocrit (Bld) [Volume fraction] 45.1 % Normal 34.0-46.4 [facility] Comment on above: Performed By: #### H S TROP, PTT, CMP, DDIMER, BNP, CK, PT, CBC #### [facility] [address] Hemoglobin Test strip Ql (U) Ordered By: Terry Dudley on 01-31-2024 Hemoglobin Ql (U) Negative Negative [facility] Hemoglobin [Mass/volume] in BloodOrdered By: Terry Dudley on 01-31-2024 Hemoglobin (Bld) [Mass/Vol] 15.6 g/dL High 11.8-15.4 [facility] Comment on above: Performed By: #### H S TROP, PTT, CMP, DDIMER, BNP, CK, PT, CBC #### [facility] [address] INR in Platelet poor plasma by Coagulation assayOrdered By: Terry Dudley on 01-31-2024 INR Coag (PPP) [Relative time] 1.2 {INR} Normal [facility] Comment on above: INR Therapeutic Rang [...] CMP, DDIMER, BNP, CK, PT, CBC #### [place] [address] [place] Ketones [Presence] in Urine by Test stripOrdered By: Terry Dudley on 01-31-2024 Ketones Ql (U) Negative Normal Negative [facility] Comment on above: Order Comment: Name Collection Type:: Clean-Voided Midstream Performed By: #### U A, CG #### [address] Leukocyte esterase [Presence ] in Urine by Test stripOrdered By: Terry Dudley on 01-31-2024 Leukocyte esterase Test strip Ql (U) Negative Normal Negative [facility] Comment on above: Order Comment: Name Collection Type:: Clean-Voided Midstream Performed By: #### U A, CG #### [address] Leukocytes [#/volume] correc edna for nucleated erythrocytes in Blood by Automated counOrdered By: Terry Dudley on 01-31-2024 WBC corrected for nucl RBC Auto (Bld) [#/Vol] 17.5 10*3/uL High 3.8-11.6 [facility] Leukocytes [#/volume] in Blo od by Automated countOrdered By: Terry Dudley on 01-31-2024 WBC (Bld) [#/Vol] 17.5 10*3/uL High 3.8-11.6 [facility] Comment on above: Performed By: #### H S TROP, PTT, CMP, DDIMER, BNP, CK, PT, CBC #### [place] [address] [place] Lymphocytes [#/volume] in Bl ood by Automated countOrdered By: Terry Dudley on 01-31-2024 Lymphocytes (Bld) [#/Vol] 2.1 10*3/uL Normal 1.00-4.8 [facility] Comment on above: Performed By: #### H S TROP, PTT, CMP, DDIMER, BNP, CK, PT, CBC #### [facility] [address] Lymphocytes/100 leukocytes i n Blood by Automated countOrdered By: Terry Dudley on 01-31-2024 Lymphocytes/100 WBC (Bld) 11.8 % Normal . [facility] Comment on above: Performed By: #### H S TROP, PTT, CMP, DDIMER, BNP, CK, PT, CBC #### [facility] [address] [place] [address] MCH [Entitic mass] by Automa edna countOrdered By: Terry Dudley on 01-31-2024 MCH (RBC) [Entitic mass] 31.7 pg Normal 24.7-34.3 [facility] Comment on above: Performed By: #### H S TROP, PTT, CMP, DDIMER, BNP, CK, PT, CBC #### [address] MCHC Auto (RBC) [Mass/Vol]Or dered By: Terry Dudley on 01-31-2024 MCHC (RBC) [Mass/Vol] 34.6 g/dL 32.0-35.0 [facility] MCV [Entitic volume] by Auto mated countOrdered By: Terry Dudley on 01-31-2024 MCV (RBC) [Entitic vol] 91.4 fL Normal 80-100 [facility] Comment on above: Performed By: #### H S TROP, PTT, CMP, DDIMER, BNP, CK, PT, CBC #### [address] Monocyte distribution width [Entitic volume] in Blood by AutomatedOrdered By: Terry Dudley on 01-31-2024 Monocyte distribution width Auto (Bld) [Entitic vol] 14.85 % 0.00-20.00 [facility] Neutrophils [#/volume] in Bl ood by Automated countOrdered By: Terry Dudley on 01-31-2024 Neutrophils (Bld) [#/Vol] 14.0 10*3/uL High 1.8-7.7 [facility] Comment on above: Performed By: #### H S TROP, PTT, CMP, DDIMER, BNP, CK, PT, CBC #### [facility] [address] Nitrite Test strip Ql (U)Ord ered By: Terry Dudley on 01-31-2024 Nitrite Ql (U) Negative Negative [facility] No Panel InformationOrdered By: Terry Dudley on 01-31-2024 Estimated GFR (CKD-EPI) > 60.0 mL/Min [facility] Creatinine Clearance (Chem 119.17 [facility] Nucleated erythrocytes [Pres ence] in Blood by Automated countOrdered By: Terry Dudley on 01-31-2024 Nucleated RBC Auto Ql (Bld) 0.0 /100{WBC} 0-0.5 [facility] Partial Thromboplastin Timeo n 01-31-2024 aPTT Coag (Bld) [Time] 26.1 s Normal 25.1-36.5 [facility] Comment on above: Result Comment: A he matocrit value greater than 55% may lead to inaccurate results in coagulation testing. Patients having hematocrit values >55% require a special collection tube for coagulation studies. Please contact the laboratory at [phone] for redraw instructions. Performed By: #### H S TROP, PTT, CMP, DDIMER, BNP, CK, PT, CBC #### [facility] [address] [place] [address] [place] Platelet mean volume [Entiti c volume] in Blood by Automated countOrdered By: Terry Dudley on 01-31-2024 Platelet mean volume (Bld) [Entitic vol] 8.7 fL Normal 6.3-10.7 [facility] Comment on above: Performed By: #### H S TROP, PTT, CMP, DDIMER, BNP, CK, PT, CBC #### [facility] [address] [place] [address] [place] Platelets [#/volume] in Bloo d by Automated countOrdered By: Terry Dudley on 01-31-2024 Platelets (Bld) [#/Vol] 297 10*3/uL Normal 150-450 [facility] Comment on above: Performed By: #### H S TROP, PTT, CMP, DDIMER, BNP, CK, PT, CBC #### [facility] [address] [id number] [facility] Potassium [Moles/volume] in Serum or PlasmaOrdered By: Terry Dudley on 01-31-2024 Potassium [Moles/Vol] 3.4 mmol/L Low 3.5-5.1 [facility] Comment on above: Performed By: #### H S TROP, PTT, CMP, DDIMER, BNP, CK, PT, CBC #### [facility] [address] [id number] [facility] Protein Test strip (U) [Mass /Vol]Ordered By: Terry Dudley on 01-31-2024 Protein (U) [Mass/Vol] Negative Negative [facility] Protein [Mass/volume] in Ser um or PlasmaOrdered By: Terry Dudley on 01-31-2024 Protein [Mass/Vol] 7.7 g/dL Normal 6.4-8.9 [facility] Comment on above: Performed By: #### H S TROP, PTT, CMP, DDIMER, BNP, CK, PT, CBC #### [facility] [address] [place] [address] [facility] Prothrombin time (PT)Ordered By: Terry Dudley on 01-31-2024 PT Coag (PPP) [Time] 14.0 s High 9.0-12.9 [facility] Comment on above: A hematocrit value g reater than 55% may lead to inaccurate results in coagulation testing. Patients having hematocrit values >55% require a special collection tube for coagulation studies. Please contact the laboratory at [phone] for redraw instructions. Result Comment: A he matocrit value greater than 55% may lead to inaccurate results in coagulation testing. Patients having hematocrit values >55% require a special collection tube for coagulation studies. Please contact the laboratory at [phone] for redraw instructions. Performed By: #### H S TROP, PTT, CMP, DDIMER, BNP, CK, PT, CBC #### [facility] [address] [id number] [facility] Serum globulin measurement b y calculation (mass/volume)Ordered By: Terry Dudley on 01-31-2024 Globulin (S) [Mass/Vol] 3.0 g/dL Normal [facility] Comment on above: Performed By: #### H S TROP, PTT, CMP, DDIMER, BNP, CK, PT, CBC #### [facility] [address] Serum or plasma albumin/glob ulin mass ratioOrdered By: Terry Dudley on 01-31-2024 Albumin/Globulin [Mass ratio] 1.6 {ratio} [facility] Comment on above: Performed By: #### H S TROP, PTT, CMP, DDIMER, BNP, CK, PT, CBC #### [facility] [address] [place] [address] Serum or plasma anion gap de terminationOrdered By: Terry Dudley on 01-31-2024 Anion gap [Moles/Vol] 8.3 mmol/L Normal 6.0-15.0 [facility] Comment on above: Performed By: #### H S TROP, PTT, CMP, DDIMER, BNP, CK, PT, CBC #### [address] Sodium [Moles/volume] in Ser um or PlasmaOrdered By: Terry Dudley on 01-31-2024 Sodium [Moles/Vol] 136 mmol/L Normal 136-145 [facility] Comment on above: Performed By: #### H S TROP, PTT, CMP, DDIMER, BNP, CK, PT, CBC #### [facility] [address] [place] [address] Specific gravity Test strip (U) [Rel density]Ordered By: Terry Dudley on 01-31-2024 Specific gravity (U) [Rel density] 1.005 1.001-1.03 0 [facility] Troponin I High Sensitivityo n 01-31-2024 Troponin I High Sensitivity 3.5 pg/mL Normal 0.0-15.0 [facility] Comment on above: Result Comment: PERF ORMED BY: [place] [address] PATHOLOGIST [employer] PERSON CARLOS HITCHCOCK M.D. Performed By: #### H S TROP, PTT, CMP, DDIMER, BNP, CK, PT, CBC #### [facility] [address] [place] [address] [place] Troponin I.cardiac [Mass/vol ume] in Serum or Plasma by Detection limit <= 0.01 ng/Ordered By: Terry Dudley on 01-31-2024 Troponin I.cardiac DL <= 0.01 ng/mL [Mass/Vol] 3.5 pg/mL 0.0-15.0 [facility] Urea nitrogen [Mass/volume] in Serum or PlasmaOrdered By: Terry Dudley on 01-31-2024 Urea nitrogen [Mass/Vol] 10 mg/dL Normal 7-25 [facility] Comment on above: Performed By: #### H S TROP, PTT, CMP, DDIMER, BNP, CK, PT, CBC #### [facility] [address] [place] [address] [place] Urinalysison 01-31-2024 Bilirubin,Urine Negative Normal Negative [facility] Comment on above: Order Comment: Name Collection Type:: Clean-Voided Midstream Performed By: #### U A, UHCG #### [place] [address] [place] Glucose Ql (U) Normal Normal Normal [facility] Comment on above: Order Comment: Name Collection Type:: Clean-Voided Midstream Performed By: #### U A, UHCG #### [place] [address] [place] Nitrite,Urine Negative Normal Negative [facility] Comment on above: Order Comment: Name Collection Type:: Clean-Voided Midstream Performed By: #### U A, UHCG #### [facility] [address] [place] [id number] [place] Occult Blood,Urine Negative Normal Negative [facility] Comment on above: Order Comment: Name Collection Type:: Clean-Voided Midstream Performed By: #### U A, UHCG #### [place] [id number] [place] Protein,Urine Negative Normal Negative [facility] Comment on above: Order Comment: Name Collection Type:: Clean-Voided Midstream Performed By: #### U A, UHCG #### [address] Specificy [place],Urine 1.005 Normal 1.001-1.03 0 [facility] Comment on above: Order Comment: Name Collection Type:: Clean-Voided Midstream Performed By: #### U A, UHCG #### [address] Urobilinogen,Urine Normal Normal Normal [facility] Comment on above: Order Comment: Name Collection Type:: Clean-Voided Midstream Performed By: #### U A, UHCG #### [address] Urine appearanceOrdered By: Terry Dudley on 01-31-2024 Appearance (U) Clear Normal Clear [facility] Comment on above: Order Comment: Name Collection Type:: Clean-Voided Midstream Performed By: #### U A, UHCG #### [address] Urobilinogen Test strip (U) [Mass/Vol]Ordered By: Terry Dudley on 01-31-2024 Urobilinogen (U) [Mass/Vol] Normal mg/dL Normal [facility] pH of Urine by Test stripOrd ered By: Terry Dudley on 01-31-2024 pH (U) 6.5 [pH] Normal 5.0-9.0 [facility] Comment on above: Order Comment: Name Collection Type:: Clean-Voided Midstream Performed By: #### U A, UHCG #### [address] PAP ACOG PANEL 2: 23 to 31on 10-14-2021 . . Normal [facility] Comment on above: Performed By: #### P TT #### [facility] [address] [address] Kaela Dimas Age Gdln ACOG Testing - Normal [facility] Comment on above: Performed By: #### P TT #### [facility] [address] [address] Kaela Dimas DIAGNOSIS: Comment Normal [facility] Comment on above: Result Comment: NEGA TIVE FOR INTRAEPITHELIAL LESION OR MALIGNANCY. CELLULAR CHANGES ASSOCIATED WITH INFLAMMATION ARE PRESENT. Performed By: #### P TT #### [facility] [address] [place] [address] Kaelastephanie Dimas Methodology: Comment Normal [facility] Comment on above: Result Comment: This liquid based ThinPrep(R) pap test was screened with the use of an image guided system. Performed By: #### P TT #### [facility] [address] [place] [address] Kaelastephanie Dimas Note: Comment Normal [facility] Comment on above: Result Comment: The Pap smear is a screening test designed to aid in the detection of premalignant and malignant conditions of the uterine cervix. It is not a diagnostic procedure and should not be used as the sole means of detecting cervical cancer. Both false-positive and false-negative reports do occur. . Performed By: #### P TT #### [facility] [address] [place] [address] Kaela Judie Performed by: Comment Normal [facility] Comment on above: Result Comment: Nancy Collins, Continuous Pillowcase Cutter (ASCP) Performed By: #### P TT #### [facility] [address] [place] [address] Kaela Dimas Reflex Criteria: Comment Normal [facility] Comment on above: Result Comment: The HPV DNA reflex criteria were not met with this specimen result therefore, no HPV testing was performed. . Performed By: #### P TT #### [facility] [address] [place] [address] Kaela Dimas Specimen adequacy: Comment Normal [facility] Comment on above: Result Comment: Sati sfactory for evaluation. Endocervical and/or squamous metaplastic cells (endocervical component) are present. Performed By: #### P TT #### [facility] [address] [place] [address] Kaela Judie CBC AUTO DIFFon 02-07-2021 BASO # 0.1 103/ul Normal 0.0-0.1 [facility] Comment on above: Performed By: #### C BC #### [facility] [address] [place], [place] [id number] Kaela Judie Basophils/100 WBC (Bld) 0.3 % Normal 0.2-2.0 [facility] Comment on above: Performed By: #### C BC #### [facility] [address] [place], [place] [id number] Kaela Judie EO # 0.1 103/ul Normal 0.0-0.7 [facility] Comment on above: Performed By: #### C BC #### [facility] [address] [place], [place] [id number] Kaela Judie Eosinophils/100 WBC (Bld) 0.5 % Critically low 0.9-7.0 [facility] Comment on above: Performed By: #### C BC #### [facility] [address] [place] [address] Kaela Judie Erythrocyte distribution width (RBC) [Ratio] 12.3 % Normal 11.0-15.0 [facility] Comment on above: Performed By: #### C BC #### [facility] [address] [place] [address] Kaela Judie Hematocrit (Bld) [Volume fraction] 33.8 % Critically low 36.0-48.0 [facility] Comment on above: Performed By: #### C BC #### [facility] [address] [place] [address] Kaela Judie Hemoglobin (Bld) [Mass/Vol] 11.6 g/dL Critically low 12.0-16.0 [facility] Comment on above: Performed By: #### C BC #### [facility] [address] [place] [address] Kaela Judie IG # 0.20 10e3/ul Critically high 0.00-0.03 [facility] Comment on above: Performed By: #### C BC #### [facility] [address] [place] [address] Kaela Judie IG % 1.2 % Critically high 0.0-0.5 [facility] Comment on above: Performed By: #### C BC #### [facility] [address] [place], [place] [id number] Kaela Judie LYMPH # 1.6 103/ul Normal 1.2-3.8 [facility] Comment on above: Performed By: #### C BC #### [facility] [address] [place], [place] [id number] Kaela Judie Lymphocytes/100 WBC (Bld) 9.2 % Critically low 20.5-60.0 [facility] Comment on above: Performed By: #### C BC #### [facility] [address] [place], [place] [id number] Kaela Judie MANUAL DIFF REQ NO Normal [facility] Comment on above: Performed By: #### C BC #### [facility] [address] [place] [address] Kaelastephanie Sauhen MCH (RBC) [Entitic mass] 30.8 pg Normal 26.7-34.0 [facility] Comment on above: Performed By: #### C BC #### [facility] [address] [place], [place] [id number] Kaelastephanie Dimas MCHC (RBC) [Mass/Vol] 34.3 g/dL Normal 29.9-35.2 [facility] Comment on above: Performed By: #### C BC #### [facility] [address] [place], [place] [id number] Kaelastephanie Sahuen MCV (RBC) [Entitic vol] 89.7 fL Normal 81.0-99.0 [facility] Comment on above: Performed By: #### C BC #### [facility] [address] [place] [address] Kaela Judie MONO # 0.9 103/ul Critically high 0.3-0.8 [facility] Comment on above: Performed By: #### C BC #### [facility] [address] [place], [place] [id number] Kaela Judie Monocytes/100 WBC (Bld) 5.5 % Normal 1.7-12.0 [facility] Comment on above: Performed By: #### C BC #### [facility] [address] [place] [address] Kaela Dimas NEUT # 14.1 103/ul Critically high 1.4-6.5 [facility] Comment on above: Performed By: #### C BC #### [facility] [address] [place] [address] Kaela Dimas Neutrophils/100 WBC (Bld) 83.3 % Critically high 43.0-75.0 [facility] Comment on above: Performed By: #### C BC #### [facility] [address] [place] [address] Kaela Dimas Platelet mean volume (Bld) [Entitic vol] 11.0 fL Normal 9.5-13.5 [facility] Comment on above: Performed By: #### C BC #### [facility] [address] [place] [address] Kaela Dimas PLT 192 103/ul Normal 150-450 [facility] Comment on above: Performed By: #### C BC #### [facility] [address] [place] [address] Kaela Dimas RBC 3.77 106/ul Critically low 4.20-5.40 [facility] Comment on above: Performed By: #### C BC #### [facility] [address] [place] [address] Kaela Dimas WBC 16.9 103/ul Critically high 4.0-11.0 [facility] Comment on above: Performed By: #### C BC #### [facility] [address] [place] [address] Kaela Dimas ASYMPTOMATIC COVID-19 ANTIGE Non 02-05-2021 EUA Statement SEE BELOW Normal [facility] Comment on above: Result Comment: This [...] sooner. Performed By: #### G TT3P #### [facility] [address] [place] [address] Kaela Dimas SARS-CoV-2 (COVID-19) RNA RIGOBERTO+probe Ql (Unsp spec) Negative Normal NEGATIVE [facility] Comment on above: Result Comment: Nega tive results are presumptive. They do not preclude infection and should not be used as the sole basis for treatment decisions. Additional confirmatory testing by a molecular method should be considered. Performed By: #### G TT3P #### [facility] [address] [place] [address] Kaela Dimas CBC AUTO DIFFon 02-05-2021 BASO # 0.1 103/ul Normal 0.0-0.1 [facility] Comment on above: Performed By: #### C BC #### [facility] [address] [place], [place] [id number] Kaela Dimas Basophils/100 WBC (Bld) 0.3 % Normal 0.2-2.0 [facility] Comment on above: Performed By: #### C BC #### [facility] [address] [place] [address] Kaela Dimas EO # 0.1 103/ul Normal 0.0-0.7 [facility] Comment on above: Performed By: #### C BC #### [facility] [address] [place] [address] Kaela Dimas Eosinophils/100 WBC (Bld) 0.3 % Critically low 0.9-7.0 [facility] Comment on above: Performed By: #### C BC #### [facility] [address] [place] [address] Kaela Dimas Erythrocyte distribution width (RBC) [Ratio] 12.0 % Normal 11.0-15.0 [facility] Comment on above: Performed By: #### C BC #### [facility] [address] [id number] Kaela Dimas Hematocrit (Bld) [Volume fraction] 36.9 % Normal 36.0-48.0 [facility] Comment on above: Performed By: #### C BC #### [facility] [address] [address] Kaelastephanie Dimas Hemoglobin (Bld) [Mass/Vol] 12.7 g/dL Normal 12.0-16.0 [facility] Comment on above: Performed By: #### C BC #### [facility] [address] [place] [address] Kaelastephanie Dimas IG # 0.19 10e3/ul Critically high 0.00-0.03 [facility] Comment on above: Performed By: #### C BC #### [facility] [address] [place] [address] Kaela Judie IG % 1.0 % Critically high 0.0-0.5 [facility] Comment on above: Performed By: #### C BC #### [facility] [address] [place] [address] Kaelastephanie Dimas LYMPH # 1.4 103/ul Normal 1.2-3.8 [facility] Comment on above: Performed By: #### C BC #### [facility] [address] [place] [address] Kaela Dimas Lymphocytes/100 WBC (Bld) 7.6 % Critically low 20.5-60.0 [facility] Comment on above: Performed By: #### C BC #### [facility] [address] [place], [place] [id number] Kaela Dimas MANUAL DIFF REQ NO Normal [facility] Comment on above: Performed By: #### C BC #### [facility] [address] [place], [place] [id number] Kaela Dimas MCH (RBC) [Entitic mass] 30.5 pg Normal 26.7-34.0 [facility] Comment on above: Performed By: #### C BC #### [facility] [address] [place], [place] [address] Kaela Dimas MCHC (RBC) [Mass/Vol] 34.4 g/dL Normal 29.9-35.2 [facility] Comment on above: Performed By: #### C BC #### [facility] [address] [place], [place] [address] Kaela Dimas MCV (RBC) [Entitic vol] 88.5 fL Normal 81.0-99.0 [facility] Comment on above: Performed By: #### C BC #### [facility] [address] [place], [place] [address] Kaela Judie MONO # 1.0 103/ul Critically high 0.3-0.8 [facility] Comment on above: Performed By: #### C BC #### [facility] [address] [id number] Kaela Sahuen Monocytes/100 WBC (Bld) 5.5 % Normal 1.7-12.0 [facility] Comment on above: Performed By: #### C BC #### [facility] [address] [id number] Kaela Judie NEUT # 15.7 103/ul Critically high 1.4-6.5 [facility] Comment on above: Performed By: #### C BC #### [facility] [address] [id number] Kaela Judie Neutrophils/100 WBC (Bld) 85.3 % Critically high 43.0-75.0 [facility] Comment on above: Performed By: #### C BC #### [facility] [address] [place], [place] [address] Kaelastephanie Dimas Platelet mean volume (Bld) [Entitic vol] 11.8 fL Normal 9.5-13.5 [facility] Comment on above: Performed By: #### C BC #### [facility] [address] [id number] Kaela Judie PLT 226 103/ul Normal 150-450 [facility] Comment on above: Performed By: #### C BC #### [facility] [address] [place], [place] [address] Kaela Judie RBC 4.17 106/ul Critically low 4.20-5.40 [facility] Comment on above: Performed By: #### C BC #### [facility] [address] [place] [address] Kaela Dimas WBC 18.5 103/ul Critically high 4.0-11.0 [facility] Comment on above: Performed By: #### C BC #### [facility] [address] [place] [address] Kaela Judie DRUG SCREEN RAPID (URINE)on 02-05-2021 AMP Negative Normal NEGATIVE [facility] Comment on above: Performed By: #### D RUGRPD #### [facility] [address] [place] [address] Kaela Judie BAR Negative Normal NEGATIVE [facility] Comment on above: Performed By: #### D RUGRPD #### [facility] [address] [place] [address] Kaela Judie BUP Negative Normal NEGATIVE [facility] Comment on above: Performed By: #### D RUGRPD #### [facility] [address] [place] [address] Kaela Judie BZO Negative Normal NEGATIVE [facility] Comment on above: Performed By: #### D RUGRPD #### [facility] [address] [place] [address] Kaela Judie JERRY Negative Normal NEGATIVE [facility] Comment on above: Performed By: #### D RUGRPD #### [facility] [address] [place] [address] Kaela Judie CUT-OFFS SEE BELOW Normal [facility] Comment on above: Result Comment: AMP [...] ng/mL Performed By: #### D RUGRPD #### [facility] [address] [place] [address] Kaela Judie DRUG CUT HEADER DRUG CLASS TEST SYST EM CUT-OFF CONCENTRATIONS ARE FOLLOWS: Normal [facility] Comment on above: Performed By: #### D RUGRPD #### [facility] [address] [place] [address] Kaela Judie mAMP Negative Normal NEGATIVE [facility] Comment on above: Performed By: #### D RUGRPD #### [facility] [address] [place] [address] Kaela Judie MTD Negative Normal NEGATIVE [facility] Comment on above: Performed By: #### D RUGRPD #### [facility] [address] [place] [address] Kaela Judie OPI Negative Normal NEGATIVE [facility] Comment on above: Performed By: #### D RUGRPD #### [facility] [address] [place] [address] Kaela Judie OXY Negative Normal NEGATIVE [facility] Comment on above: Performed By: #### D RUGRPD #### [facility] [address] [place] [address] Kaela Judie PCP Negative Normal NEGATIVE [facility] Comment on above: Performed By: #### D RUGRPD #### [facility] [address] [place] [address] Kaela Judie PPX Negative Normal NEGATIVE [facility] Comment on above: Performed By: #### D RUGRPD #### [facility] [address] [place] [address] Kaela Judie TCA Negative Normal NEGATIVE [facility] Comment on above: Performed By: #### D RUGRPD #### [facility] [address] [place] [address] Kaela Judie THC Negative Normal NEGATIVE [facility] Comment on above: Performed By: #### D RUGRPD #### [facility] [address] [place], [place] [address] Kaela Dimas TYPE AND SCREENon 02-05-2021 TYPE AND SCREEN Negative Normal [facility] Comment on above: Performed By: #### P TT #### [facility] [address] [place], [place] [address] Kaela Dimas GROUP B STREP CULTUREon S. agalactiae Ag Ql (Unsp spec) Culture Observations: NEGATIVE FOR GROUP B STREPTOCOCCUS. Normal [facility] Comment on above: Performed By: #### P TT #### [facility] [address] [place], [place] [address] Kaela Dimas US PREG BIOPHY W NON [...] by: MICHELLE LANE Date: 2021-01-30 08:23 Normal [facility] US PREG GROWTHon 01-30-2021 US [...] by: MICHELLE LANE Date: 2021-01-30 08:25 Normal [facility] US PREG BIOPHY W NON [...] by: MICHELLE LANE Date: 2021-01-23 07:22 Normal [facility] US PREG BIOPHY W NON [...] by: MICHELLE LANE Date: 2021-01-16 07:31 Normal [facility] PROTEIN 24HR URINEon 021 T PROT, 24 HR UR 603.9 mg/24 hr Critically high 42.0-225.0 [facility] Comment on above: Performed By: #### G TT3P #### [facility] [address] [place], [place] [address] Kaela Judie UR PROT 12.2 mg/dL Critically high <=12.0 [facility] Comment on above: Performed By: #### G TT3P #### [facility] [address] [place], [place] [address] Kaela Judie UR TOT VOL 4950 ml/24 HR Normal [facility] Comment on above: Performed By: #### G TT3P #### [facility] [address] [place] [address] Kaela Judie CBC AUTO DIFFon 01-13-2021 BASO # 0.0 103/ul Normal 0.0-0.1 [facility] Comment on above: Performed By: #### G TT3P #### [facility] [address] [place], [place] [address] Kaela Judie Basophils/100 WBC (Bld) 0.2 % Normal 0.2-2.0 [facility] Comment on above: Performed By: #### G TT3P #### [facility] [address] [place], [place] [address] Kaela Judie EO # 0.1 103/ul Normal 0.0-0.7 [facility] Comment on above: Performed By: #### G TT3P #### [facility] [address] [place], [place] [address] Kaela Judie Eosinophils/100 WBC (Bld) 0.6 % Critically low 0.9-7.0 [facility] Comment on above: Performed By: #### G TT3P #### [facility] [address] [place], [place] [address] Kaela Judie Erythrocyte distribution width (RBC) [Ratio] 11.7 % Normal 11.0-15.0 [facility] Comment on above: Performed By: #### G TT3P #### [facility] [address] [place], [place] [address] Kaela Judie Hematocrit (Bld) [Volume fraction] 34.5 % Critically low 36.0-48.0 [facility] Comment on above: Performed By: #### G TT3P #### [facility] [address] [address] Kaela Dimas Hemoglobin (Bld) [Mass/Vol] 12.1 g/dL Normal 12.0-16.0 [facility] Comment on above: Performed By: #### G TT3P #### [facility] [address] [address] Kaela Dimas IG # 0.20 10e3/ul Critically high 0.00-0.03 [facility] Comment on above: Performed By: #### G TT3P #### [facility] [address] [place] [address] Kaela Dimas IG % 1.2 % Critically high 0.0-0.5 [facility] Comment on above: Performed By: #### G TT3P #### [facility] [address] [place] [address] Kaela Dimas LYMPH # 1.5 103/ul Normal 1.2-3.8 [facility] Comment on above: Performed By: #### G TT3P #### [facility] [address] [place] [address] Kaela Dimas Lymphocytes/100 WBC (Bld) 8.6 % Critically low 20.5-60.0 [facility] Comment on above: Performed By: #### G TT3P #### [facility] [address] [place] [address] Kaela Dimas MANUAL DIFF REQ NO Normal [facility] Comment on above: Performed By: #### G TT3P #### [facility] [address] [place] [address] Kaela Dimas MCH (RBC) [Entitic mass] 30.6 pg Normal 26.7-34.0 [facility] Comment on above: Performed By: #### G TT3P #### [facility] [address] [place] [address] Kaela Dimas MCHC (RBC) [Mass/Vol] 35.1 g/dL Normal 29.9-35.2 [facility] Comment on above: Performed By: #### G TT3P #### [facility] [address] [place], [place] [address] Kaela Dimas MCV (RBC) [Entitic vol] 87.3 fL Normal 81.0-99.0 [facility] Comment on above: Performed By: #### G TT3P #### [facility] [address] [address] Kaelastephanie Dimas MONO # 1.2 103/ul Critically high 0.3-0.8 [facility] Comment on above: Performed By: #### G TT3P #### [facility] [address] [address] Kaela Judie Monocytes/100 WBC (Bld) 6.6 % Normal 1.7-12.0 [facility] Comment on above: Performed By: #### G TT3P #### [facility] [address] [place] [address] Kaela Judie NEUT # 14.4 103/ul Critically high 1.4-6.5 [facility] Comment on above: Performed By: #### G TT3P #### [facility] [address] [place], [place] [address] Kaela Judie Neutrophils/100 WBC (Bld) 82.8 % Critically high 43.0-75.0 [facility] Comment on above: Performed By: #### G TT3P #### [facility] [address] [place], [place] [address] Kaela Dimas Platelet mean volume (Bld) [Entitic vol] 12.1 fL Normal 9.5-13.5 [facility] Comment on above: Performed By: #### G TT3P #### [facility] [address] [place], [place] [address] Kaela Judie PLT 216 103/ul Normal 150-450 [facility] Comment on above: Performed By: #### G TT3P #### [facility] [address] [address] Kaela Judie RBC 3.95 106/ul Critically low 4.20-5.40 [facility] Comment on above: Performed By: #### G TT3P #### [facility] [address] [place] [address] Kaela Judie WBC 17.4 103/ul Critically high 4.0-11.0 [facility] Comment on above: Performed By: #### G TT3P #### [facility] [address] [place] [address] Kaela Judie CULTURE URINEon 01-13-2021 CULTURE URINE Culture Observations : LIGHT GROWTH OF MIXED GENITAL TINO. NO POTENTIAL PATHOGENS SEEN. Normal [facility] Comment on above: Performed By: #### P TT #### [facility] [address] [place] [address] Kaela Judie LDHon 01-13-2021 LDH 194 U/L Normal 122-222 [facility] Comment on above: Performed By: #### U ELIZABETH, LDH #### [facility] [address] [place] [address] Kaela Judie PROF 14(COMP METB)on 021 Albumin [Mass/Vol] 2.7 g/dL Critically low 3.5-5.0 [facility] Comment on above: Performed By: #### G TT3P #### [facility] [address] [place], [place] [address] Kaela Judie Albumin/Globulin [Mass ratio] 0.9 {ratio} Normal [facility] Comment on above: Performed By: #### G TT3P #### [facility] [address] [place], [place] [address] Kaela Judie ALP [Catalytic activity/Vol] 134 U/L Critically high 38-126 [facility] Comment on above: Performed By: #### G TT3P #### [facility] [address] [place], [place] [address] Kaela Judie ALT [Catalytic activity/Vol] 21 U/L Normal 9-52 [facility] Comment on above: Performed By: #### G TT3P #### [facility] [address] [place], [place] [address] Kaela Judie Anion gap [Moles/Vol] 11.6 mmol/L Normal [facility] Comment on above: Performed By: #### G TT3P #### [facility] [address] [address] Kaela Judie AST [Catalytic activity/Vol] 17 U/L Normal 14-36 [facility] Comment on above: Performed By: #### G TT3P #### [facility] [address] [address] Kaela Judie Bilirubin [Mass/Vol] 0.2 mg/dL Normal 0.2-1.3 [facility] Comment on above: Performed By: #### G TT3P #### [facility] [address] [place] [address] Kaela Judie Calcium [Mass/Vol] 9.1 mg/dL Normal 8.4-10.2 [facility] Comment on above: Performed By: #### G TT3P #### [facility] [address] [place] [address] Kaela Judie Chloride [Moles/Vol] 106 mmol/L Normal 98-107 [facility] Comment on above: Performed By: #### G TT3P #### [facility] [address] [place] [address] Kaela Judie CO2 [Moles/Vol] 25.8 mmol/L Normal 22.0-30.0 [facility] Comment on above: Performed By: #### G TT3P #### [facility] [address] [place], [place] [address] Kaela Judie Creatinine [Mass/Vol] 0.53 mg/dL Normal 0.52-1.04 [facility] Comment on above: Performed By: #### G TT3P #### [facility] [address] [place] [address] Kaela Judie EGFR-AF MALTESE >60 Normal >=60 [facility] Comment on above: Performed By: #### G TT3P #### [facility] [address] [place], [place] [address] Kaela Judie EGFR-NON AF MALTESE >60 Normal >=60 [facility] Comment on above: Performed By: #### G TT3P #### [facility] [address] [place], [place] [address] Kaela Judie Globulin (S) [Mass/Vol] 3.0 g/dL Normal [facility] Comment on above: Performed By: #### G TT3P #### [facility] [address] [place] [address] Kaela Judie Glucose [Mass/Vol] 85 mg/dL Normal 74-106 [facility] Comment on above: Performed By: #### G TT3P #### [facility] [address] [place] [address] Kaela Judie Potassium [Moles/Vol] 3.4 mmol/L Normal 3.4-5.0 [facility] Comment on above: Performed By: #### G TT3P #### [facility] [address] [place] [address] Kaela Judie Protein [Mass/Vol] 5.7 g/dL Critically low 6.1-8.2 [facility] Comment on above: Performed By: #### G TT3P #### [facility] [address] [place] [address] Kaela Judie Sodium [Moles/Vol] 140 mmol/L Normal 137-145 [facility] Comment on above: Performed By: #### G TT3P #### [facility] [address] [place] [address] Kaela Judie Urea nitrogen [Mass/Vol] 10.0 mg/dL Normal 7.0-17.0 [facility] Comment on above: Performed By: #### G TT3P #### [facility] [address] [place] [address] Kaela Judie Urea nitrogen/Creatinine [Mass ratio] 18.9 mg/mg Normal [facility] Comment on above: Performed By: #### G TT3P #### [facility] [address] [place], [place] [address] Kaela Judie PTTon 01-13-2021 aPTT Coag (Bld) [Time] 23.6 s Normal 22.3-36.2 Th [facility] Comment on above: Performed By: #### P TT #### [facility] [address] [place] [address] Kaela Judie URIC ACID SERUMon 01-13-2021 Urate [Mass/Vol] 3.7 mg/dL Normal 2.5-6.2 [facility] Comment on above: Performed By: #### U ELIZABETH, LDH #### [facility] [address] [place] [address] Kaela Judie UA (CLEAN/CATCH) WORKFORCE ANALYST/MICRO I F IND.on 01-12-2021 Bilirubin Ql (U) Negative Normal NEGATIVE [facility] Comment on above: Performed By: #### U MICRO, UACSIND #### [facility] [address] [place] [address] Kaela Judie Clarity (U) CLEAR Normal CLEAR [facility] Comment on above: Performed By: #### U MICRO, UACSIND #### [facility] [address] [place] [address] Kaela Judie Color (U) LT. YELLOW Normal YELLOW [facility] Comment on above: Performed By: #### U MICRO, UACSIND #### [facility] [address] [place] [address] Kaela Judie Glucose Ql (U) Negative Normal NEGATIVE [facility] Comment on above: Performed By: #### U MICRO, UACSIND #### [facility] [address] [place] [address] Kaela Judie Hemoglobin Ql (U) Negative Normal NEGATIVE [facility] Comment on above: Performed By: #### U MICRO, UACSIND #### [facility] [address] [place] [address] Kaela Judie Ketones Ql (U) Negative Normal NEGATIVE [facility] Comment on above: Performed By: #### U MICRO, UACSIND #### [facility] [address] [place] [address] Kaela Judie LEUKOCYTES TRACE Abnormal NEGATIVE [facility] Comment on above: Performed By: #### U MICRO, UACSIND #### [facility] [address] [place] [address] Kaela Judie Nitrite Ql (U) Negative Normal NEGATIVE [facility] Comment on above: Performed By: #### U MICRO, UACSIND #### [facility] [address] [place] [address] Kaela Dimas pH (U) 6.0 [pH] Normal 5-9 [facility] Comment on above: Performed By: #### U MICRO, UACSIND #### [facility] [address] [place] [address] Kaela Dimas SPEC GRAVITY 1.025 Normal 1.005-<=1. 025 [facility] Comment on above: Performed By: #### U MICRO, UACSIND #### [facility] [address] [place] [address] Kaela Dimas UA PROTEIN Negative Normal NEGATIVE/ TRACE [facility] Comment on above: Performed By: #### U MICRO, UACSIND #### [facility] [address] [place] [address] Kaela Dimas UR MICRO IND INDICATED Normal [facility] Comment on above: Performed By: #### U MICRO, UACSIND #### [facility] [address] [place] [address] Kaela Dimas Urobilinogen Qn (U) 0.2 {Sylvester'U}/dL Normal 0.2 - 1. 0 [facility] Comment on above: Performed By: #### U MICRO, UACSIND #### [facility] [address] [place] [address] Kaela Dimas URINE MICROSCOPIC ONLYon BACTERIA TRACE Abnormal NONE SEEN [facility] Comment on above: Performed By: #### U MICRO, UACSIND #### [facility] [address] [place] [address] Kaela Dimas Bacteria identified Cx Nom (U) INDICATED Normal [facility] Comment on above: Performed By: #### U MICRO, UACSIND #### [facility] [address] [place] [address] Kaela Dimas CAST NONE SEEN Normal NONE SEEN [facility] Comment on above: Performed By: #### U MICRO, UACSIND #### [facility] [address] [place] [address] Kaelastephanie Dimas Crystals LM Nom (Urine sed) NONE SEEN Normal NONE SEEN [facility] Comment on above: Performed By: #### U MICRO, UACSIND #### [facility] [address] [id number] Kaela Judie Epithelial cells LM Ql (Urine sed) FEW Abnormal NONE SEEN /RARE [facility] Comment on above: Performed By: #### U MICRO, UACSIND #### [facility] [address] [address] Kaela Judie MUCOUS SMALL Abnormal NONE SEEN [facility] Comment on above: Performed By: #### U MICRO, UACSIND #### [facility] [address] [address] Kaela Judie RBC 0-2 Normal 0-2 [facility] Comment on above: Performed By: #### U MICRO, UACSIND #### [facility] [address] [place] [address] Kaela Judie WBC 2-5 Abnormal NONE SEEN [facility] Comment on above: Performed By: #### U MICRO, UACSIND #### [facility] [address] [place], [place] [address] Kaela Judie US PREG BIOPHY W NON [...] IRINEO COMBS Date: 2021-01-09 07:18 Normal [facility] US PREG GROWTHon 12-31-2020 US PREG [...] cm; 32 weeks 2 days; % EFW: [id number], 39% FL/AC: 0.137386 FL/BPD: 0.036371 HC/AC: 1.726358 GESTATIONAL AGE: Age by EDC: 32 weeks 1 day SUSANNA by EDC: 02/24/2021 Age by US: 32 weeks 0 days SUSANNA by US: 02/25/2021 IMPRESSION: Normal interval growth Electronically authenticated by: IRINEO COMBS Date: 2020-12-31 09:38 Normal [facility] GTT 3 HR PREGon 12-12-2020 Glucose [Mass/Vol] 86 mg/dL Normal 74-106 [facility] Comment on above: Performed By: #### G TT3P #### [facility] [address] [address] Kaela Judie Glucose [Mass/Vol] 179 mg/dL Normal [facility] Comment on above: Performed By: #### G TT3P #### [facility] [address] [address] Kaela Judie Glucose [Mass/Vol] 131 mg/dL Normal [facility] Comment on above: Performed By: #### G TT3P #### [facility] [address] [address] Kaela Judie Glucose [Mass/Vol] 145 mg/dL Normal [facility] Comment on above: Performed By: #### G TT3P #### [facility] [address] [address] Kaela Judie GLUCOSE - 1HRon 12-05-2020 Glucose [Mass/Vol] 151 mg/dL Critically high 74-106 T [facility] Comment on above: Result Comment: sherri ent was approximately 5 minutes late for draw Performed By: #### G LU1HR #### [facility] [address] [place], [place] [id number] Kaela Dimas HEMOGRAM AND PLATELon 2020 Hematocrit (Bld) [Volume fraction] 38.4 % Normal 36.0-48.0 [facility] Comment on above: Performed By: #### G TT3P #### [facility] [address] [place] [address] Kaelastephanie Dimas Hemoglobin (Bld) [Mass/Vol] 13.2 g/dL Normal 12.0-16.0 [facility] Comment on above: Performed By: #### G TT3P #### [facility] [address] [place] [address] Kaela Dimas MCH (RBC) [Entitic mass] 30.8 pg Normal 26.7-34.0 [facility] Comment on above: Performed By: #### G TT3P #### [facility] [address] [place] [address] Kaela Dimas MCHC (RBC) [Mass/Vol] 34.4 g/dL Normal 29.9-35.2 [facility] Comment on above: Performed By: #### G TT3P #### [facility] [address] [place] [address] Kaela Dimas MCV (RBC) [Entitic vol] 89.5 fL Normal 81.0-99.0 [facility] Comment on above: Performed By: #### G TT3P #### [facility] [address] [place] [address] Kaelastephanie Sahuen PLT 238 103/ul Normal 150-450 [facility] Comment on above: Performed By: #### G TT3P #### [facility] [address] [place] [address] Kaela Judie RBC 4.29 106/ul Normal 4.20-5.40 [facility] Comment on above: Performed By: #### G TT3P #### [facility] [address] [place] [address] Kaela Judie WBC 17.0 103/ul Critically high 4.0-11.0 [facility] Comment on above: Performed By: #### G TT3P #### [facility] [address] [address] Kaela Dimas PREG GROWTHon 12-03-2020 US PREG [...] cm; 28 weeks 0 days; % EFW: 2.766827, 2 lbs. 10 oz., 40% FL/AC: 0.356890 FL/BPD: 0.609439 HC/AC: 1.865473 GESTATIONAL AGE: Age by EDC: 28 weeks 1 day SUSANNA by EDC: 02/24/2021 Age by US: 20 weeks 2 days SUSANNA by US: 02/23/2021 IMPRESSION: Normal interval growth Electronically authenticated by: IRINEO COMBS Date: 2020-12-03 10:04 Normal [facility] Vital Signs Date Time Vital Sign Value Performing Clinician Facility 08-14-2024 16:26-0500 Body mass index (BMI) [Ratio] 41.65 kg/m2 [address] Work Phone: [facility] 08-14-2024 16:26-0500 Body weight 106.[address] Work Phone: [facility] 08-14-2024 16:26-0500 Diastolic blood pressure 80 mm[Hg] [address] Work Phone: [facility] 08-14-2024 16:26-0500 Systolic blood pressure 130 mm[Hg] [address] Work Phone: [facility] 07-31-2024 15:22-0500 Body mass index (BMI) [Ratio] 41.81 kg/m2 Madisyn KERNS Work Phone: [facility] 07-31-2024 15:22-0500 Body weight 107.05 kg Madisyn Gaona PA Work Phone: [facility] 07-31-2024 15:22-0500 Diastolic blood pressure 72 mm[Hg] Madisyn Gaona PA Work Phone: [facility] 07-31-2024 15:22-0500 Systolic blood pressure 122 mm[Hg] Madisyn Gaona PA Work Phone: [facility] 07-17-2024 16:19-0500 Body mass index (BMI) [Ratio] 41.81 kg/m2 Scotty Jacquie DO Work Phone: [facility] 07-17-2024 16:19-0500 Body weight 107.05 kg Scotty Jacquie DO Work Phone: [facility] 07-17-2024 16:19-0500 Diastolic blood pressure 72 mm[Hg] Scotty Jacquie DO Work Phone: [facility] 07-17-2024 16:19-0500 Systolic blood pressure 122 mm[Hg] Scotty Jacquie DO Work Phone: [facility] 07-14-2024 11:13-0500 Body height 160 cm Aniceto Fox MD Work Phone: [facility] 07-14-2024 11:13-0500 Body mass index (BMI) [Ratio] 40.74 kg/m2 Aniceto Fox MD Work Phone: [facility] 07-14-2024 11:13-0500 Body weight 104.33 kg Aniceto Fox MD Work Phone: [facility] 07-14-2024 11:13-0500 Diastolic blood pressure 84 mm[Hg] Aniceto Fox MD Work Phone: [facility] 07-14-2024 11:13-0500 Heart rate 104 /min Aniceto Fox MD Work Phone: [facility] 07-14-2024 11:13-0500 Systolic blood pressure 144 mm[Hg] Aniceto Fox MD Work Phone: [facility] 06-15-2024 15:34-0500 Body mass index (BMI) [Ratio] 40.6 kg/m2 Madisyn KERNS Work Phone: [facility] 06-15-2024 15:34-0500 Body weight 103.96 kg Madisyn KERNS Work Phone: [facility] 06-15-2024 15:34-0500 Diastolic blood pressure 76 mm[Hg] Madisyn KERNS Work Phone: [facility] 06-15-2024 15:34-0500 Systolic blood pressure 122 mm[Hg] Madisyn KERNS Work Phone: [facility] 05-18-2024 12:07-0400 Body mass index (BMI) [Ratio] 39.5 kg/m2 Scotty Jacquie DO Work Phone: [facility] 05-18-2024 12:07-0400 Body weight 101.15 kg Scotty Jacquie DO Work Phone: [facility] 05-18-2024 12:07-0400 Diastolic blood pressure 78 mm[Hg] Scotty Jacquie DO Work Phone: [facility] 05-18-2024 12:07-0400 Systolic blood pressure 124 mm[Hg] Scotty Jacquie DO Work Phone: [facility] 04-20-2024 08:46-0400 Body mass index (BMI) [Ratio] 39.41 kg/m2 Madisyn KERNS Work Phone: [facility] 04-20-2024 08:46-0400 Body weight 100.92 kg Madisyn KERNS Work Phone: [facility] 04-20-2024 08:46-0400 Diastolic blood pressure 82 mm[Hg] Madisyn KERNS Work Phone: [facility] 04-20-2024 08:46-0400 Systolic blood pressure 122 mm[Hg] Madisyn Jimenez PA Work Phone: [facility] 03-22-2024 11:34-0400 Body mass index (BMI) [Ratio] 39.5 kg/m2 Scotty Jacquie DO Work Phone: [facility] 03-22-2024 11:34-0400 Body weight 101.15 kg Scotty Jacquie DO Work Phone: [facility] 03-22-2024 11:34-0400 Diastolic blood pressure 74 mm[Hg] Scotty Jacquie DO Work Phone: [facility] 03-22-2024 11:34-0400 Systolic blood pressure 122 mm[Hg] Scotty Jacquie DO Work Phone: [facility] 01-31-2024 18:14-0400 Diastolic blood pressure 74 mm[Hg] MD Jacques Mccarthy Work Phone: [facility] 01-31-2024 18:14-0400 Heart rate 100 /min MD Jacques Mccarthy Work Phone: [facility] 01-31-2024 18:14-0400 Respiratory rate 18 /min MD Jacques Mccarthy Work Phone: [facility] 01-31-2024 18:14-0400 SaO2% (BldA) [Mass fraction] 100 % MD Jacques Mccarthy Work Phone: [facility] 01-31-2024 18:14-0400 Systolic blood pressure 156 mm[Hg] MD Jacques Mccarthy Work Phone: [facility] 01-31-2024 14:04-0400 Body height 160.02 cm MD Jacques Mccarthy Work Phone: [facility] 01-31-2024 14:04-0400 Body temperature 97.4 [degF] MD Jacques Mccarthy Work Phone: [facility] 01-31-2024 14:04-0400 Body weight 98.5 kg MD Jacques Mccarthy Work Phone: [facility] Encounters Encounter Date Encounter Type Care Provider Facility Start: 08-16-2024 End: 08-16-2024 Documentation procedure Judie Stearns [facility]- Medicine at [facility] Start: 08-15-2024 End: 08-15-2024 Office outpatient visit 25 minutes Nubia Lundberg MD Work Phone: [facility] at [facility] Comment on above: 32 weeks gestation o f (Primary Dx); Gestational diabetes mellitus (GDM) in third trimester, gestational diabetes method of control unspecified; Chronic hypertension affecting ; BMI 40.0-44.9, adult ([facility]); arrhythmia affecting , antepartum; Polyhydramnios affecting ; Separation of chorion and amnion membranes, antepartum Start: 08-15-2024 End: 08-15-2024 Orders Only Judie Jinny [facility] Maternal- Medicine at [facility] Comment on above: Abnormal ultrasonic finding on screening of mother, antepartum (Primary Dx) Start: 08-14-2024 End: 08-14-2024 ambulatory SCOTTY JACQUIE Not Available Start: 08-14-2024 End: 08-14-2024 flow sheet Scotty Jacquie DO Work Phone: [facility] Comment on above: 32 weeks gestation o f ; Third trimester Start: 08-14-2024 End: 08-14-2024 Bamboo flowsheet Scotty Jacquie DO Work Phone: [facility] Start: 08-14-2024 End: 08-14-2024 Bamboo [...] Aniceto Fox MD Work Phone: [facility] Comment on above: Gestational diabetes mellitus (GDM), antepartum, gestational diabetes method of control unspecified (Primary Dx); Chronic hypertension affecting Start: 07-14-2024 End: 07-14-2024 ambulatory ANICETO FOX [facility] Start: 07-13-2024 End: 07-13-2024 Clinisync Result Encounter Madisyn KERNS Work Phone: [facility] Unsolicited Start: 07-13-2024 End: 07-13-2024 Clinisync Result Encounter Madisyn KERNS Work Phone: [facility] Unsolicited Start: 06-21-2024 End: 06-21-2024 Chart abstracting Aniceto Fox MD Work Phone: [facility]- Medicine at [facility] Start: 06-15-2024 End: 06-15-2024 flow sheet [...] flow sheet Scotty Jacquie DO Work Phone: [facility] Comment on above: 20 weeks gestation o f ; Second trimester Start: 04-20-2024 End: 04-20-2024 Bamboo flowsheet Madisyn KERNS Work Phone: [facility] Start: 04-20-2024 End: 04-20-2024 Bamboo flowsheet Madisyn KERNS Work Phone: [facility] Start: 04-20-2024 End: 04-20-2024 Office outpatient visit 15 minutes Madisyn KERNS Work Phone: [facility] Comment on above: Screening, , for anatomic survey; Well woman exam with routine gynecological exam; Screen for STD (sexually transmitted disease); Vaginal discharge; Second trimester Start: 04-20-2024 End: 04-20-2024 Patient encounter procedure Madisyn KERNS Work Phone: [facility] Start: 04-20-2024 End: 04-20-2024 ambulatory MADISYN GAONA Not Available Start: 03-22-2024 End: 03-22-2024 Bamboo flowsheet Scotty Jacquie DO Work Phone: [facility] Start: 03-22-2024 End: 03-22-2024 Bamboo flowsheet Scotty Jacquie DO Work Phone: [facility] Start: 03-22-2024 End: 03-22-2024 flow sheet Scotty Jacquie DO Work Phone: [facility] Comment on above: Second trimester pre [...] patient visit MD Jacques Mccarthy Work Phone: [facility] Work Phone: Start: 10-08-2021 End: 10-08-2021 [...] Work Phone: Start: 08-04-2024 [facility] UA (CLEAN/CATCH) WORKFORCE ANALYST/MICRO IF IND. Scotty Dhillon DO Work Phone: Start: 07-31-2024 Urnls dip stick/tabl et rgnt non-auto w/o micrscp Madisyn KERNS Work Phone: Start: 07-17-2024 Urnls dip stick/tabl et rgnt non-auto w/o micrscp Scottynona Braggo DO Work Phone: Start: 07-14-2024 Glucose quantitative blood xcpt reagent strip Aniceto Fox MD Work Phone: Start: 07-13-2024 ALL CBC WITH AUTO DIFF Madisyn KERNS Work Phone: Start: 06-15-2024 Urnls dip stick/tabl et rgnt non-auto w/o micrscp Madisyn KERNS Work Phone: Start: 05-18-2024 Urnls dip stick/tabl et rgnt non-auto w/o micrscp Scottynona Braggo DO Work Phone: Start: 04-20-2024 Urnls dip stick/tabl et rgnt non-auto w/o micrscp Madisyn KERNS Work Phone: Start: 02-06-2021 Extraction of Produc ts of Conception, Low Cervical, Open Approach DR SCOTTY DHILLON Start: 02-05-2021 Introduction of Othe r Hormone into Peripheral Vein, Percutaneous Approach DR SCOTTY DHILLON Plan of Treatment Date Care Activity Detail Author Start: 08-15-2025 Tobacco Screening Tobacco Screening [facility] Start: 07-14-2025 Adult BMI Screening Adult BMI Screen ing [facility] Start: 06-21-2025 Adult BMI Screening Adult BMI Screen ing [facility] Start: 08-30-2024 End: 08-30-2024 Patient encounter procedure 08/30/2024 10:30 AM EST Office Visit [facility] [address] [place] [address] Eliud Wilson MD [address] [place] [address] [facility] Start: 08-22-2024 End: 08-22-2024 Patient encounter procedure 08/22/2024 2:30 PM EST Routine [facility] [address] [place] [phone] Scotty Dhillon, [address] [place] [address] [facility] Start: 08-14-2024 End: 08-14-2024 Patient encounter procedure 08/14/2024 3:30 PM EST Routine [facility] [address] [place] [id number] Scotty Dhillon, [address] [place] [address] [facility] Start: 07-31-2024 End: 07-31-2024 Patient encounter procedure [facility] Comment on above: Arrived Start: 07-17-2024 End: 07-17-2024 Patient encounter procedure 07/17/2024 3:20 PM EST Routine [facility] [address] [place] [phone] Scotty Dhillon, [address] [place] [address] [facility] Start: 07-17-2024 End: 07-17-2024 Professional / ancillary services management 07/17/2024 3:00 PM EST Ancillary Procedure [facility] [address] [place] [phone] [facility] Start: 07-17-2024 End: 07-17-2025 US biophysical profile w non stress test US biophysical profile w non stress test Imaging Routine Third trimester Gestational diabetes mellitus (GDM) in third trimester, gestational diabetes method of control unspecified Hypertension, unspecified type (CMS/HCC) Expected: 07/17/2024 (Approximate), Expires: 07/17/2025 [facility] Comment on above: Expected: 07/17/2024 (Approximate), Expires: 07/17/2025 Start: 07-17-2024 End: 07-17-2025 US for US OB SCAN FOR GROWTH Imaging Routine Third trimester Gestational diabetes mellitus (GDM) in third trimester, gestational diabetes method of control unspecified Hypertension, unspecified type (CMS/HCC) Expected: 07/17/2024 (Approximate), Expires: 07/17/2025 [facility] Work Phone: Comment on above: Expected: 07/17/2024 (Approximate), Expires: 07/17/2025 Start: 07-14-2024 End: 07-14-2024 Patient encounter procedure [facility] Start: 06-15-2024 End: 06-15-2024 Patient encounter procedure 06/15/2024 3:30 PM EST Routine [facility] [address] [place] [phone] Madisyn Gaona PA [address] [place] [address] [facility] Start: 06-15-2024 End: 06-15-2025 CBC panel - Blood by Automated count CBC Lab Routine Diabetes mellitus screening Expected: 06/15/2024 (Approximate), Expires: 06/15/2025 [facility] Work Phone: Comment on above: Expected: 06/15/2024 (Approximate), Expires: 06/15/2025 Start: 06-15-2024 End: 06-15-2025 Measurement of glucose 1 hour after glucose challenge for glucose tolerance test Glucose tolerance, 1 hour Lab Routine Diabetes mellitus screening Expected: 06/15/2024 (Approximate), Expires: 06/15/2025 [facility] Comment on above: Expected: 06/15/2024 (Approximate), Expires: 06/15/2025 Start: 05-18-2024 End: 05-18-2024 Patient encounter procedure 05/18/2024 11:40 AM EDT Office Visit [facility] [address] [place] [address] Scotty Dhillon, DO [address] [place], [place] [id number] [facility] Start: 05-18-2024 End: 05-18-2024 Professional / ancillary services management 05/18/2024 10:30 AM EDT Ancillary Procedure [facility] [address] [place] [place] [address] [facility] Start: 04-20-2024 End: 04-20-2025 Alpha fetoprotein, maternal Alpha fetoprotein, maternal Lab Routine Second trimester Expected: 04/20/2024 (Approximate), Expires: 04/20/2025 [facility] Work Phone: Comment on above: Expected: 04/20/2024 (Approximate), Expires: 04/20/2025 Start: 04-20-2024 End: 04-20-2025 US for US OB ANATOMY SINGLE W US OB CERVICAL LENGTH Imaging Routine Screening, , for anatomic survey Expected: 04/20/2024 (Approximate), Expires: 04/20/2025 [facility] Comment on above: Expected: 04/20/2024 (Approximate), Expires: 04/20/2025 Start: 04-20-2024 End: 04-20-2024 Patient encounter procedure [facility] Comment on above: Arrived Start: 04-02-2024 Influenza vaccination Influenza Vacc ine [facility] Start: 03-22-2024 End: 03-22-2024 Patient encounter procedure 03/22/2024 11:20 AM EDT Routine [facility] [address] [place] [phone] Scotty Dhillon, [address] [facility] [place] [address] Arrived [facility] Comment on above: Arrived Start: 2018 Screening for malign ant neoplasm of cervix Pap Smear [facility] Start: 2016 DTaP,Tdap and Td Vaccines (1 - Tdap) DTaP,Tdap and Td Vaccines (1 - Tdap) [facility] Start: 2015 Adult BMI Follow Up Plan Adult BMI Follow Up Plan [facility] Start: 2015 Adult BMI Screening Adult BMI Screen ing [facility] Start: 2009 Depression Screening Depression Scre ening [facility] Start: 2009 Tobacco Screening Tobacco Screening [facility] CBC W Auto Different ial panel - Blood CBC and differential Lab Routine Abnormal CBC Ordered: 03/22/2024 [facility] Work Phone: Comment on above: Ordered: 03/22/2024 Patient Education - Th e Second Month High Blood Pressure ED [facility] Work Phone: Patient referral [facility] Work Phone: Payers Date Payer Category Payer Medicaid [id number] 2024 Medicaid [id number] 2024 Self-pay 2023 Private Health Insurance [id number] 2023 Private Health Insurance [id number] 2022 Medicaid HMO [facility] MEDIC A[facility] [id number] 1997 Unknown [id number] 2.16.840.1.024808.3.579.2. 593 1997 Unknown [id number] 2.16.840.1.507327.3.579.2. 593 1997 Unknown [id number] 2.16.840.1.176145.3.579.2. 593 1997 Unknown [id number] 2.16.840.1.812572.3.579.2. 593 1997 Unknown [id number] 2.16.840.1.578028.3.579.2. 593 1997 Unknown [id number] 2.16.840.1.106821.3.579.2. 593 1997 Unknown [id number] 2.16.840.1.548353.3.579.2. 593 1997 Unknown [id number] 2.16.840.1.562647.3.579.2. 593 1997 Unknown [id number] 2.16.840.1.861698.3.579.2. 593 1997 Unknown [id number] 2.16.840.1.793835.3.579.2. 593 1997 Unknown [id number] 2.16.840.1.233859.3.579.2. 593 1997 Unknown [id number] 2.16.840.1.954277.3.579.2. 593 1997 Unknown [id number] 2.16.840.1.090280.3.579.2. 593 1997 Unknown [id number] 2.16.840.1.123018.3.579.2. 593 1997 Unknown [id number] 2.16.840.1.969527.3.579.2. 593 1997 Unknown [id number] 2.16.840.1.743540.3.579.2. 593 1997 Unknown [id number] 2.16.840.1.445817.3.579.2. 593 1997 Unknown [id number] 2.16.840.1.924451.3.579.2. 593 1997 Unknown [id number] 2.16.840.1.486284.3.579.2. 1286 1997 Unknown [id number] 2.16.840.1.700602.3.579.2. 1258 1997 Unknown [id number] 2.16.840.1.630406.3.579.2. 9 1997 Unknown [id number] 2.16.840.1.940267.3.579.2. 1259 1997 Unknown [id number] 2.16.840.1.325569.3.579.2. 1259 1997 Unknown [id number] 2.16.840.1.133271.3.579.2. 9 1997 Unknown [id number] 2.16.840.1.030915.3.579.2. 9 1997 Unknown [id number] 2.16.840.1.937845.3.579.2. 9 1997 Unknown [id number] 2.16.840.1.574152.3.579.2. 1259 1997 Unknown [id number] 2.16.840.1.432951.3.579.2. 1259 1997 Unknown [id number] 2.16.840.1.044350.3.579.2. 1259 1997 Unknown [id number] 2.16.840.1.644764.3.579.2. 1259 1997 Unknown [id number] 2.16.840.1.516789.3.579.2. 1286 1997 Unknown [id number] 2.16.840.1.255947.3.579.2. 1286 1959 Unknown [id number] 1959 Unknown [id number] 1959 Unknown [id number] Unknown [id number] 2.16.840.1.935381.3.579.2. 531 Social History Date Type Detail Facility Start: 01-13-2024 [facility] Start: 01-31-2024 Tobacco smoking stat [facility] Never smoked tobacco (finding) [facility] Start: 1995 Sex Assigned At Female F [facility] Tobacco smoking stat [facility] Tobacco smoking consumption unknown [facility] Start: 1997 Sex assigned at Not on file N [facility] Start: 08-23-2020 End: 06-21-2024 Gender identity Not on file [facility] Start: 10-07-2020 End: 07-14-2024 Tobacco smoking status NHIS Ex-smoker [facility] History of tobacco use Current smoker [facility] Start: 10-07-2020 End: 07-14-2024 Tobacco use and exposure Smokeless tobacco non-user [facility] Start: 06-21-2024 End: 08-15-2024 Alcoholic beverage intake Ex-drinker (finding) [facility] Start: 08-23-2020 End: 06-21-2024 History of Social function [facility] Childcare Unknown [facility] Start: 10-07-2020 End: 07-14-2024 Tobacco Comment quit 3 years ago [facility] Start: 08-23-2020 Sex Female (finding) [facility] History of tobacco use Cigarette Smoker P [facility] Medical Equipment Procedure Code Equipment Code Equipment Origin al Text Equipment Identifier Dates 1 strip by In Vi tro route Daily Use in the morning prior to breakfast, 1 hour after each meal for a total of 4times daily. [id number] Start: 07-17-2024 End: 08-16-2024 1 each by In Vit ro route Daily Use to check FSBS four times daily [id number] Start: 07-17-2024 End: 08-16-2024 Clinical Notes 02-05-2021 [...] return my call. documented in this encounter [facility] 08-15-2024 History of Present illness Narrative Video Visit via Real-time Synchronous Audiovisual Provider Location: [facility]- [facility]INE AT [address] [address] Patient Location: Other [place] Office Patient Location Log Stacker Operator: None Video Visit Consent Statement: I discussed [...] that there are some limitations compared to [id number] evaluations. We elected to proceed. REASON FOR [...] outflow tracts on ultrasound BMI 40.0-44.9, adult ([facility]) Past Medical History: Diagnosis Date Anxiety Chronic [...] evening., Disp: , Rfl: miscellaneous medical supply mis, by miscellaneous route once., Disp: , Rfl: [...] and the other consultants, we search on [employer] and all the available care everywhere epic I did review all the imaging studies of the patient available on EMR, ordered by the primary care physician and the other client development consultant HABITS: Patient activity no restrictions, diet [...] more likely to fail compared to insulin. FDC data on children whose mothers took oral [...] Chronic hypertension affecting 4. BMI 40.0-44.9, adult ([facility]) Denies signs and symptoms of preeclampsia and [...] of labor - if you would like [facility] to start managing the patient diabetes please [...] patient is in complete care of her information strategist. Patient does have ultrasound appointment scheduled with us. Thank you for allowing me to participate in Samantha Taylor . If there any questions please do not hesitate to contact us. Sincerely, Nubia Lundberg MD, FACOG (she/hers) Maternal- Medicine [address] [place] [address] documented in this encounter [facility] 08-14-2024 History of Present illness Narrative Reason for Appointment: Patient ID: Samantha Taylor is a 29 y.o. female who presents for No chief complaint on file. Patient presents today for Return OB appointment. MEDICATIONS Current Outpatient Medications Medication Instructions Alcohol Swabs (Alcohol Prep Pad) 70 % pads 1 Pad, Topical, Daily, Use four times daily to check FSBS. Blood Glucose Monitoring Suppl ([employer] Glucometer) w/Device kit 1 kit, Does not [...] nursing note reviewed. Exam conducted with a co founder and director present. Vitals: Estimated body mass index is [...] Scotty Dhillon DO documented in this encounter [facility] 07-31-2024 History of Present illness Narrative Reason for Appointment: Patient ID: Samantha Taylor is a 29 y.o. female who presents for Routine Visit Patient presents today for Return OB appointment. MEDICATIONS Current Outpatient Medications Medication Instructions Alcohol Swabs (Alcohol Prep Pad) 70 % pads 1 Pad, Topical, Daily, Use four times daily to check FSBS. Blood Glucose Monitoring Suppl ([employer] Glucometer) w/Device kit 1 kit, Does not [...] LUIS F Tarango documented in this encounter [facility] 07-17-2024 History of Present illness Narrative [...] Scotty Dhillon DO documented in this encounter [facility] 07-14-2024 History of Present illness Narrative [...] yes Have you been seen here at [facility] in a previous ? no Recent ER visits or hospitalizations? no Bring blood sugar log or meter with you today? (Please bring them with you for every visit at [facility]) no Flu vaccine (Jun-September)? no Any [...] outflow tracts on ultrasound BMI 40.0-44.9, adult ([facility]) Past Medical History: Diagnosis Date Anxiety Chronic [...] and the other consultants, we search on [employer] and all the available care everywhere epic I did review all the imaging studies of the patient available on EMR, ordered by the primary care physician and the other client development consultant HABITS: Patient activity no restrictions, diet [...] and therefore has been rescheduled at our [facility] site. DISPOSITION: At this point the patient is in complete care of her information strategist. Patient does have ultrasound appointment scheduled with us. Thank you for allowing me to participate in Samantha Taylor . If there any questions please do not hesitate to contact us. Sincerely, ANICETO FOX MD documented in this encounter [facility] 06-15-2024 History of Present illness Narrative Reason [...] LUIS F Tarango documented in this encounter [facility] 05-18-2024 History of Present illness Narrative [...] nursing note reviewed. Exam conducted with a co founder and director present. Vitals: Estimated body mass index is [...] of [facility] orders to have drawn at [facility] in [place]. Documented by Angela Butt LPN on behalf of: Scotty Dhillon DO documented in this encounter [facility] 04-20-2024 History of Present illness Narrative [...] LUIS F Tarango documented in this encounter [facility] 03-22-2024 History of Present illness Narrative [...] nursing note reviewed. Exam conducted with a co founder and director present. Vitals: Estimated body mass index is [...] or undercooked meat, and stay away from [facility]. Patient has been consulted regarding any [...] Scotty Dhillon DO documented in this encounter [facility] 02-05-2021 Note OPERATIVE NOTE OPERATION DATE: 02-06-21 ANESTHETIC:Spinal with Duramorph. RESEARCH TECH:ELVIA Prajapati PREOPERATIVE DIAGNOSIS: 1. Intrauterine at 37 [...] to the Recovery Room in stable condition. [facility] Signed and Approved by: DR SCOTTY DHILLON . 02/11/2021 11:15:00 [facility] 02-05-2021 Note DISCHARGE SUMMARY Discharge Date: 02-09-21 [...] Tylenol, any abdominal pain unrelieved with narcotics. [facility] Signed and Approved by: DR SCOTTY DHILLON . 02/25/2021 23:13:00 [facility] Evaluation note No assessment inform ation available [facility] Work Phone: Evaluation note Diagnosis [...] Chronic hypertension affecting [facility] Diagnosis Third trimester state, incidental 28 weeks gestation of Gestational diabetes mellitus (GDM) in third trimester, gestational diabetes method of control unspecified Hypertension, unspecified type ([facility]) Gestational diabetes mellitus (GDM), antepartum, gestational diabetes [...] trimester state, incidental [facility] Diagnosis 32 weeks gestation of - Primary Gestational diabetes mellitus (GDM) in third trimester, gestational diabetes method of control unspecified Chronic hypertension affecting BMI 40.0-44.9, adult ([facility]) arrhythmia affecting , antepartum Abnormality in heart rate/rhythm, antepartum condition or complication Polyhydramnios affecting Separation of chorion and amnion membranes, antepartum [facility] Diagnosis Abnormal ultrasonic finding on screening of mother, antepartum- Primary [facility] filedocumented in [facility] filedocumented in this [facility]* Attachments The following attachments cannot be sent through Care Everywhere. * Preeclampsia (Burmese) * labor (Burmese) [facility] Purpose Family History No Family [...] and content) DATE CREATED AUTHOR 10/15/2021 [facility] DATE CREATED AUTHOR AUTHOR'S ORGANIZ ATION 02/19/2024 [facility] DATE CREATED AUTHOR AUTHOR'S ORGANIZ ATION 07/17/2024 [facility] DATE CREATED AUTHOR AUTHOR'S ORGANIZ ATION 08/18/2024 [facility]IC DATE CREATED AUTHOR AUTHOR'S ORGANIZ ATION 08/18/2024 [facility] DATE CREATED AUTHOR AUTHOR'S ORGANIZ ATION 08/18/2024 [facility] Care Teams (unrecognized sec tion and content) Team Status: Active Member Role Status Dates Jacques Mccarthy MD Primary Care Provider Active Team Status: Inactive Member Role Status Dates Jacques Mccarthy MD Primary Care Provider Active Start: January 31, 2024 End: January 31, 2024 Terry Dudley DO Emergency Provider Active St art: January 31, 2024 End: January 31, 2024 Internal Combustion Engine Inspector Relationship Specialty Start Date End Date Jacques Mccarthy MD [address] [place] [address] PCP - General Family Medicine 02/08/24 Internal Combustion Engine Inspector Relationship Specialty Start Date End Date Jacques Mccarthy MD [address] [place] [address] PCP - General Family Medicine 02/08/24 Internal Combustion Engine Inspector Relationship Specialty Start Date End Date Jacques Mccarthy MD PCP - General Family Medicine 10/07/20 Internal Combustion Engine Inspector Relationship Specialty Start Date End Date Jacques Mccarthy MD [address] [place] [address] PCP - General Family Medicine 02/08/24 Internal Combustion Engine Inspector Relationship Specialty Start Date End Date Jacques Mccarthy MD [address] [place] [address] PCP - General Family Medicine 02/08/24 Internal Combustion Engine Inspector Relationship Specialty Start Date End Date Jacques Mccarthy MD [address] [place] [address] PCP - General Family Medicine 02/08/24 Internal Combustion Engine Inspector Relationship Specialty Start Date End Date Jacques Mccarthy MD PCP - General Family Medicine 10/07/20 Internal Combustion Engine Inspector Relationship Specialty Start Date End Date Jacques Mccarthy MD [address] [place] [facility] [place] [address] PCP - General Family Medicine 02/08/24 Internal Combustion Engine Inspector Relationship Specialty Start Date End Date Jacques Mccarthy MD [address] [place] [facility] [place] [address] PCP - General Family Medicine 02/08/24 Internal Combustion Engine Inspector Relationship Specialty Start Date End Date Jacques Mccarthy MD [address] [place] [facility] [place] [address] PCP - General Family Medicine 02/08/24 Internal Combustion Engine Inspector Relationship Specialty Start Date End Date Jacques Mccarthy MD [address] [place] [facility] [place] [address] PCP - General Family Medicine 02/08/24 Internal Combustion Engine Inspector Relationship Specialty Start Date End Date Jacques Mccarthy MD [address] [place] [facility] [place] [address] PCP - General Family Medicine 02/08/24 Internal Combustion Engine Inspector Relationship Specialty Start Date End Date Jacques Mccarthy MD [address] [place] [facility] [place] [address] PCP - General Family Medicine 02/08/24 Internal Combustion Engine Inspector Relationship Specialty Start Date End Date Jacques Mccarthy MD [address] [place] [facility] [place] [address] PCP - General Family Medicine 02/08/24 Internal Combustion Engine Inspector Relationship Specialty Start Date End Date Jacques Mccarthy MD [address] [place] [address] PCP - General Family Medicine 02/08/24 Internal Combustion Engine Inspector Relationship Specialty Start Date End Date Jacques Mccarthy MD PCP - General Family Medicine 10/07/20 Internal Combustion Engine Inspector Relationship Specialty Start Date End Date Jacques Mccarthy MD PCP - General Family Medicine 10/07/20 Internal Combustion Engine Inspector Relationship Specialty Start Date End Date Jacques [...] BE BASED ON THE PRIMARY CLINICAL RECORDS. [employer] [facility]. provides no warranty or guarantee of the accuracy or completeness of information in this document.
--- NOTE | 2024-08-21 19:26 | US_ITS ---
[address] [address] Patient Name: RADAMES BENJAMIN MRN: [facility]:[id number] date: 1995 Sex: F Assigned Patient Location: [facility] Current Patient Location: [facility] Accession/Order Number: [id number] Exam Date: 08/21/2024 20:06 Report Date: 08/21/2024 22:18 At the request of: KIANNA GOLDSTEIN Procedure: US OB BPP w non-stress EXAM: US OB BPP w non-stress HISTORY: Increased BPs COMPARISON: 08/17/2024 TECHNIQUE: Transabdominal pelvic ultrasound was performed. FINDINGS: There is a single live intrauterine gestation in cephalic presentation. A heartbeat of 138 bpm was obtained. JANES is 24.5 cm program assistant with polyhydramnios. Similar findings were present previously. breathing movements: 2 / 2 Gross body movements: 2 / 2 tone: 2 / 2 Qualitative amniotic fluid volume: 2 / 2 Total biophysical profile score: 8 / 8 US/US OB BPP w non-stress IMPRESSION: 1. Biophysical profile score is 8/8. 2. There is a single live intrauterine gestation. presentation is cephalic. 3. JANES is 24.5 cm consistent with polyhydramnios. Similar findings were seen previously. Electronically authenticated by: MACARIO HURT Date: 08/21/2024 22:18
[2024-08-21 20:13] LABS: Creatinine Urine Random 182.92 mg/dL (20.00-300.00); Protein Creatinine Ratio Urine 0.24; Total Protein Urine Random 44.6 mg/dL (<=11.9)
== END 2024-08-21 21:45 | disposition home or self-care (01) ==
LOC: FBCO 04:07 → FBC 18:05
PROVIDERS: Obstetrics & Gynecology; PCP Family Medicine; Visit Provider Obstetrics & Gynecology
DX: O24.419 Gestational diabetes mellitus in pregnancy, unspecified control (principal); O40.3XX0 Polyhydramnios, third trimester, not applicable or unspecified; Z3A.33 33 weeks gestation of pregnancy
CPT/HCPCS: 59025; 76818; 82570; 84156

== ENCOUNTER 2024-08-24 01:16 | Outpatient (OUT) | payer OTHER, MEDICAID, SELFPAY ==
--- OUTSIDE RECORDS SUMMARY | 2024-08-24 01:21 | XMS_ITS | CCD ---
Author Organization [facility] Care Team Providers Care Drawer Maker Name Role Phone JACQUIE, DR FAJARDO Consulting [...] MIGUEL ÁNGEL, DR HANNA Primary Care Unavailable FAIR[place], DR IRINEO Pompa Consulting Unavailable JACQUIE, DR [...] JACQUIE, DR FAJARDO Consulting Unavailable JACQUIE, DR FJAARDO Consulting Unavailable LUIS MIGUEL, PENELOPE Admitting Unavailable LUIS MIGUEL, PENELOPE Attending Unavailable DAIANAY, DR HANNA Primary Care Unavailable ZIEBER, DR MICHELLE Matthews Consulting Unavailable JACQUIE, DR FAJARDO Attending Unavailable JACQUIE, DR FAJARDO Admitting Unavailable DAIANAY, DR HANNA [facility] Care Unavailable DAIANAY, DR HANNA Primary Care Unavailable JACQUIE, DR FAJARDO Attending Unavailable JACQUIE, DR FAJARDO Admitting Unavailable JACQUIE, DR FAJARDO Attending Unavailable JACQUIE, DR FAJARDO Admitting Unavailable DAIANAY, DR HANNA [facility] Care Unavailable JACQUIE, DR FAJARDO Consulting Unavailable JACQUIE, DR FAJARDO Attending Unavailable HOY, DR HANNA [facility] Care Unavailable JACQUIE, DR FAJARDO Admitting Unavailable JACQUIE, DR FAJARDO Admitting Unavailable WEST, DR IRINEO Pom[place] Consulting Unavailable MIGUEL ÁNGEL, DR HANNA [facility] Care Unavailable JACQUIE, DR FAJARDO Attending Unavailable JACQUIE, DR FAJARDO Consulting Unavailable JACQUIE, DR FAJARDO Attending Unavailable MIGUEL ÁNGEL, DR HANNA [facility] Unavailable JACQUIE, DR FAJARDO Admitting Unavailable MD Jacques Mccarthy Primary Care Provider [phone] DO Terry Dudley Emergency Provider [phone] Terry Dudley Admitting Unavailable Terry Dudley Attending Unavailable Jacques Mccarthy Primary Care Unavailable Jacques Mccarthy MD Primary Care Provider [phone] Jacques Mccarthy MD Primary Care Provider [phone] ANICETO FOX Attending Unavailable SCOTTY DHILLON R Referring Unavailable JACQUES MCCARTHY Primary Care Unavailable SCOTTY DHILLON Attending Unavailable JIMENEZ, MADISYN Attending Unavailable SCOTTY DHILLON Attending Unavailable JIMENEZ, MADISYN Attending Unavailable JACQUIESCOTTY CARR Attending Unavailable JIMENEZ, MADISYN Attending Unavailable JACQUIE, SCOTTY Attending Unavailable JIMENEZ, MADISYN Attending Unavailable SCOTTY DHILLON Attending Unavailable JACQUES MCCARTHY Primary Care Unavailable SCOTTY DHILLON Referring Unavailable NUBIA LUNDBERG Attending Unavailable SCOTTY DHILLON Referring Unavailable JACQUES MCCARTHY Primary Care Unavailable Medications Current Medications Medication Drug Class(es) Dates Sig (Normalized) Sig (Original) Blood Glucose Monitoring Suppl (D-Care Glucometer) w/Device kit (12 sources) Start: 07-17-2024 End: 07-17-2025 Blood Glucose [...] 07/17/2025 Active cephalexin 500 mg oral capsule (3 sources) Cephalosporin Antibacterial Start: 08-05-2024 cephalexin (Keflex) [...] (Reorder) isopropyl alcohol 0.7 ml/ml medicated pad (12 sources) Start: 07-17-2024 Alcohol Swabs (Alcohol Prep [...] once. Active NIFEdipine 10 mg oral capsule (3 sources) Dihydropyridine Calcium Channel All Start: 025 take 1 capsule by mouth every six [...] Hardeep/mcL [facility] Comment on above: trace-intact Clarity, UA Clear [facility] Color, UA Yellow [facility] Glucose, UA Negative Negative - 2000(110) ++++ mg/dL [facility] Interpretation and review of laboratory results Abnormal [facility] Ketones, UA Positive Negative - 160(16) ++++ mg/dL [facility] Comment on above: 40 Leukocytes, UA Negative Negative - 500+++ Renee/mcL [facility] Nitrite, UA Negative Negative - Positive [facility] pH, UA 6 5 - 9 [facility] Protein, UA Trace Negative - 2000(20) ++++ mg/dL [facility] Spec Grav, UA 1.02 1 - 1.03 [facility] Urobilinogen, UA 0.2 0.2 - 12 mg/dL [facility] ALL CBC WITH AUTO DIFFon BASOPHILS ABSOLUTE [...] vol] 10.5 fL 9.5 - 13.5 [facility] PLT 247 [facility] RBC 4.21 [facility] WBC 16.3 High [facility] CLINISYNC [...] vol] 10.5 fL 9.5 - 13.5 fL [facility] EO # 0 [facility] PLT 217 [facility] RBC 4.06 Low [facility] TB WBC 18.2 High [facility] TB UA (CLEAN/CATCH) SPOT WELDER/KEYLA RO IF IND.on 08-04-2024 BILIRUBIN URINE Negative [...] Urobilinogen, UA 0.2 0.2 - 12 mg/dL [facility] Urinalysis macro (dipstick) panel (U)on 07-17-2024 Bilirubin, [...] Urobilinogen, UA 0.2 0.2 - 12 mg/dL [facility] Glucose random or fasting- P OCTon 07-14-2024 External Glucose Fasting Or Random (Fbs) 169 [facility] ALL CBC WITH AUTO DIFFon BASOPHILS ABSOLUTE [...] vol] 10.4 fL 9.5 - 13.5 fL [facility] TBH EO # 0.1 [facility] PLT 255 [facility] RBC 4.19 Low [facility] WBC 17.8 High [facility] Urinalysis macro (dipstick) panel (U)on 06-15-2024 Bilirubin, UA Negative Negative - 4(70) +++ mg/dL [facility] Blood, UA Negative Negative - 50 Hardeep/mcL [facility] Clarity, UA Clear [facility] Color, UA Yellow [facility] Glucose, UA Positive Negative - 2000(110) ++++ mg/dL [facility] Interpretation and review of laboratory results Abnormal [facility] Ketones, UA Negative Negative - 160(16) ++++ mg/dL [facility] Leukocytes, UA Positive Negative - 500+++ Renee/mcL [facility] Nitrite, UA Negative Negative - Positive [facility] pH, UA 5.5 5 - 9 [facility] Protein, UA Negative Negative - 1999(20) ++++ mg/dL [facility] Spec Grav, UA 1.02 1 - 1.03 [facility] Urobilinogen, UA 1.0 0.2 - 12 mg/dL [facility] Urinalysis macro (dipstick) panel (U)on 05-18-2024 Bilirubin, [...] Urobilinogen, UA 0.2 0.2 - 12 mg/dL [facility] Urinalysis macro (dipstick) panel (U)on 04-20-2024 Bilirubin, UA Positive Negative - 4(70) +++ mg/dL [facility] Comment on above: small Blood, UA Negative Negative - 50 Hardeep/mcL [facility] Clarity, UA Clear [facility] Color, [...] Hospital pH, UA 6.5 5 - 9 [facility] Protein, UA Trace Negative - 1999(20) ++++ mg/dL [facility] Spec Grav, UA 1.030 1 - 1.03 [facility] Urobilinogen, UA 1.0 0.2 - 12 mg/dL [facility] Activated partial thrombopla stin time (aPTT) in platelet poor plasma by coagulation aOrdered By: Terry Dudley on 01-31-2024 aPTT Coag (PPP) [Time] 26.1 s 25.1-36.[address] [facility] Comment on above: A hematocrit value g reater than 55% may lead to inaccurate results in coagulation testing. Patients having hematocrit values >55% require a special collection tube for coagulation studies. Please contact the laboratory at [phone] for redraw instructions. Alanine aminotransferase [En zymatic activity/volume] in Serum or PlasmaOrdered By: Terry Dudley on 01-31-2024 ALT [Catalytic activity/Vol] 22 U/L Normal 7-52 [facility] Comment on above: Performed By: #### H S TROP, PTT, CMP, DDIMER, BNP, CK, PT, CBC #### [facility] [address] [place] [address] [place] Albumin [Mass/volume] in Ser um or Plasma by Bromocresol green (BCG) dye binding methoOrdered By: Terry Dudley on 01-31-2024 Albumin BCG dye [Mass/Vol] 4.7 g/dL 3.5-5.7 [facility] Alkaline phosphatase [Enzyma tic activity/volume] in Serum or PlasmaOrdered By: Terry Dudley on 01-31-2024 ALP [Catalytic activity/Vol] 67 U/L Normal 34-104 [facility] Comment on above: Performed By: #### H S TROP, PTT, CMP, DDIMER, BNP, CK, PT, CBC #### [facility] [address] [place] [address] [place] Aspartate aminotransferase [ Enzymatic activity/volume] in Serum or PlasmaOrdered By: Terry Dudley on 01-31-2024 AST [Catalytic activity/Vol] 17 U/L Normal 13-39 [facility] Comment on above: Performed By: #### H S TROP, PTT, CMP, DDIMER, BNP, CK, PT, CBC #### [address] Automated basophil %Ordered By: Terry Dudley on 01-31-2024 Basophils/100 WBC (Bld) 0.6 % Normal . [facility] Comment on above: Performed By: #### H S TROP, PTT, CMP, DDIMER, BNP, CK, PT, CBC #### [address] Automated basophil countOrde red By: Terry Dudley on 01-31-2024 Basophils (Bld) [#/Vol] 0.1 10*3/uL Normal 0.0-0.2 [facility] Comment on above: Result Comment: PERF ORMED BY: [place] [address] PATHOLOGIST SUPERVISOR [employer] CARLOS HITCHCOCK M.D. Performed By: #### H S TROP, PTT, CMP, DDIMER, BNP, CK, PT, CBC #### [address] Automated blood monocyte cou ntOrdered By: Terry Dudley on 01-31-2024 Monocytes (Bld) [#/Vol] 1.3 10*3/uL High 0.0-0.8 [facility] Comment on above: Performed By: #### H S TROP, PTT, CMP, DDIMER, BNP, CK, PT, CBC #### [address] Automated eosinophil %Ordere d By: Terry Dudley on 01-31-2024 Eosinophils/100 WBC (Bld) 0.3 % Normal . [facility] Comment on above: Performed By: #### H S TROP, PTT, CMP, DDIMER, BNP, CK, PT, CBC #### [address] Automated eosinophil countOr dered By: Terry Dudley on 01-31-2024 Eosinophils (Bld) [#/Vol] 0.1 10*3/uL Normal 0.0-0.45 [facility] Comment on above: Performed By: #### H S TROP, PTT, CMP, DDIMER, BNP, CK, PT, CBC #### [address] Automated monocyte %Ordered By: Terry Dudley on 01-31-2024 Monocytes/100 WBC (Bld) 7.5 % Normal . [facility] Comment on above: Performed By: #### H S TROP, PTT, CMP, DDIMER, BNP, CK, PT, CBC #### [address] Automated neutrophil %Ordere d By: Terry Dudley on 01-31-2024 Neutrophils/100 WBC (Bld) 79.8 % Normal . [facility] Comment on above: Performed By: #### H S TROP, PTT, CMP, DDIMER, BNP, CK, PT, CBC #### [address] BNP ser/plasOrdered By: Delgado Dudley on 01-31-2024 Natriuretic peptide B (Bld) [Mass/Vol] 30.0 pg/mL Normal 5-100 [facility] Comment on above: Result Comment: PERF ORMED BY: [place] [address] PATHOLOGIST SUPERVISOR [employer] CARLOS HITCHCOCK M.D. Performed By: #### H S TROP, PTT, CMP, DDIMER, BNP, CK, PT, CBC #### [address] Bilirubin Test strip Ql (U)O rdered By: Terry Dudley on 01-31-2024 Bilirubin Ql (U) Negative Negative [facility] Bilirubin.total [Mass/volume ] in Serum or PlasmaOrdered By: Terry Dudley on 01-31-2024 Bilirubin [Mass/Vol] 0.5 mg/dL Normal 0.3-1.0 [facility] Comment on above: Performed By: #### H S TROP, PTT, CMP, DDIMER, BNP, CK, PT, CBC #### [address] Calcium [Mass/volume] in Ser um or PlasmaOrdered By: Terry Dudley on 01-31-2024 Calcium [Mass/Vol] 9.6 mg/dL Normal 8.6-10.3 [facility] Comment on above: Performed By: #### H S TROP, PTT, CMP, DDIMER, BNP, CK, PT, CBC #### [address] Carbon dioxide, total [Moles /volume] in Serum or PlasmaOrdered By: Terry Dudley on 01-31-2024 CO2 [Moles/Vol] 30.1 mmol/L Normal 21.0-31.0 [facility] Comment on above: Performed By: #### H S TROP, PTT, CMP, DDIMER, BNP, CK, PT, CBC #### [address] Chloride [Moles/volume] in S marty or PlasmaOrdered By: Terry Dudley on 01-31-2024 Chloride [Moles/Vol] 101 mmol/L Normal 98-107 [facility] Comment on above: Performed By: #### H S TROP, PTT, CMP, DDIMER, BNP, CK, PT, CBC #### [address] Color of Urine by AutoOrdere d By: Terry Dudley on 01-31-2024 Color (U) Colorless Normal Yellow [facility] Comment on above: Order Comment: Name Collection Type:: Clean-Voided Midstream Performed By: #### U A, UHCG #### [address] Complete Blood Count Auto Di ffon 01-31-2024 Mean Corpuscular HGB Conc 34.6 g/dL Normal 32.0-35.0 [facility] Comment on above: Performed By: #### H S TROP, PTT, CMP, DDIMER, BNP, CK, PT, CBC #### [place] [address] [place] Monocytes/100 WBC (Bld) 14.85 % Normal 0.00-20.00 [facility] Comment on above: Performed By: #### H S TROP, PTT, CMP, DDIMER, BNP, CK, PT, CBC #### [address] NRBC% 0.0 /100{WBC} Normal 0-0.5 [facility] Comment on above: Performed By: #### H S TROP, PTT, CMP, DDIMER, BNP, CK, PT, CBC #### [address] Comprehensive Metabolic Pane urszula 01-31-2024 Albumin [Mass/Vol] 4.7 g/dL Normal 3.5-5.7 [facility] Comment on above: Performed By: #### H S TROP, PTT, CMP, DDIMER, BNP, CK, PT, CBC #### [address] Creatinine Clr Calc Pharmacy 119.17 Normal [facility] Comment on above: Result Comment: PERF ORMED BY: [place] [address] PATHOLOGIST SUPERVISOR [employer] CARLOS HITCHCOCK M.D. Performed By: #### H S TROP, PTT, CMP, DDIMER, BNP, CK, PT, CBC #### [address] GFR/1.73 sq M.predicted MDRD (S/P/Bld) [Vol rate/Area] mL/min/{1.73_m2} Normal [facility] Comment on above: Performed By: #### H S TROP, PTT, CMP, DDIMER, BNP, CK, PT, CBC #### [address] Creatine kinase [Enzymatic a ctivity/volume] in Serum or PlasmaOrdered By: Terry Dudley on 01-31-2024 CK [Catalytic activity/Vol] 76 U/L Normal 30-223 [facility] Comment on above: Performed By: #### H S TROP, PTT, CMP, DDIMER, BNP, CK, PT, CBC #### [address] Creatinine [Mass/volume] in Serum or PlasmaOrdered By: Terry Dudley on 01-31-2024 Creatinine [Mass/Vol] 0.80 mg/dL Normal 0.60-1.20 [facility] Comment on above: Performed By: #### H S TROP, PTT, CMP, DDIMER, BNP, CK, PT, CBC #### [place] [id number] [facility] D-Dimer High Sensitivityon 0 01-31-2024 D-Dimer High Sensitivity < 200 Normal 0-243 [facility] Comment on above: Result Comment: [...] coagulation studies. Please contact the laboratory at [phone] for redraw instructions. PERFORMED BY: [place] [address] PATHOLOGIST SUPERVISOR [employer] CARLOS HITCHCOCK M.D. Performed By: #### H S TROP, PTT, CMP, DDIMER, BNP, CK, PT, CBC #### [address] [address] [facility] ECG 12 lead ECGon 01-31-2024 ECG 12 lead ECG [facility] [place] [address] [place] [address] Electrocardiograph Report Signed Patient: Samantha Taylor MR#: [id number] : 1995 Acct:[id number] Age/Sex: 28 / F ADM Date: 01/31/24 Loc: ER Room: Type: [facility] ER Attending Dr: Ordering Provider: Terry [...] Terry Dudley DO 1921 Normal [facility] Erythrocyte distribution wid th [Ratio] by Automated countOrdered By: Terry Dudley on 01-31-2024 Erythrocyte distribution width (RBC) [Ratio] 12.4 % Normal 11.9-15.3 [facility] Comment on above: Performed By: #### H S TROP, PTT, CMP, DDIMER, BNP, CK, PT, CBC #### [facility] [address] Erythrocytes [#/volume] in B lood by Automated countOrdered By: Terry Dudley on 01-31-2024 RBC (Bld) [#/Vol] 4.93 10*6/uL Normal 3.60-5.00 [facility] Comment on above: Performed By: #### H S TROP, PTT, CMP, DDIMER, BNP, CK, PT, CBC #### [facility] [address] Fibrin D-dimer [Presence] in Platelet poor plasma by Latex agglutinationOrdered By: Terry Dudley on 01-31-2024 Fibrin D-dimer LA Ql (PPP) < 200 ng/mL 0-243 [facility] Comment on above: The reference range [...] coagulation studies. Please contact the laboratory at [phone] for redraw instructions. Glucose [Mass/volume] in Ser um or PlasmaOrdered By: Terry Dudley on 01-31-2024 Glucose [Mass/Vol] 91 mg/dL Normal 70-100 [facility] Comment on above: ADA recommended refe rence rangeRandom Glucose Reference Range is dependent on time and content of last meal. Glucose of more than 200 mg/dL in a nonstressed, ambulatory subject supports the diagnosis of Diabetes Mellitus. Result Comment: [place] om Glucose Reference Range is dependent on time and content of last meal. Glucose of more than 200 mg/dL in a nonstressed, ambulatory subject supports the diagnosis of Diabetes Mellitus. ADA recommended reference range Performed By: #### H S TROP, PTT, CMP, DDIMER, BNP, CK, PT, CBC #### [address] Glucose [Mass/volume] in Uri ne by Test stripOrdered By: Terry Dudley on 01-31-2024 Glucose Test strip (U) [Mass/Vol] Normal mg/dL Normal [facility] HCG ( test) IA.rapi d Ql (U)Ordered By: Terry Dudley on 01-31-2024 HCG ( test) Ql (U) Positive [facility] HCG,Urineon 01-31-2024 Beta HCG ( test) Ql (U) Positive High [facility] Comment on above: Order Comment: Name Collection Type:: Clean-Voided Midstream Result Comment: PERF ORMED BY: [facility] [address] [place] [address] PATHOLOGIST SUPERVISOR [employer]MING JIANLAN SUN M.D. Performed By: #### H S TROP, PTT, CMP, DDIMER, BNP, CK, PT, CBC #### [facility] [address] Hematocrit [Volume Fraction] of Blood by Automated countOrdered By: Terry Dudley on 01-31-2024 Hematocrit (Bld) [Volume fraction] 45.1 % Normal 34.0-46.4 [facility] Comment on above: Performed By: #### H S TROP, PTT, CMP, DDIMER, BNP, CK, PT, CBC #### [facility] [address] Hemoglobin Test strip Ql (U) Ordered By: Terry Dudley on 01-31-2024 Hemoglobin Ql (U) Negative Negative [facility] Hemoglobin [Mass/volume] in BloodOrdered By: Terry Dudley on 01-31-2024 Hemoglobin (Bld) [Mass/Vol] 15.6 g/dL High 11.8-15.4 [facility] Comment on above: Performed By: #### H S TROP, PTT, CMP, DDIMER, BNP, CK, PT, CBC #### [address] INR in Platelet poor plasma by Coagulation assayOrdered By: Terry Dudley on 01-31-2024 INR Coag (PPP) [Relative time] 1.2 {INR} Normal [facility] Comment on above: INR Therapeutic Rang [...] CMP, DDIMER, BNP, CK, PT, CBC #### [place] [address] [place] Ketones [Presence] in Urine by Test stripOrdered By: Terry Dudley on 01-31-2024 Ketones Ql (U) Negative Normal Negative [facility] Comment on above: Order Comment: Name Collection Type:: Clean-Voided Midstream Performed By: #### U A, CG #### [facility] [address] Leukocyte esterase [Presence ] in Urine by Test stripOrdered By: Terry Dudley on 01-31-2024 Leukocyte esterase Test strip Ql (U) Negative Normal Negative [facility] Comment on above: Order Comment: Name Collection Type:: Clean-Voided Midstream Performed By: #### U A, CG #### [address] Leukocytes [#/volume] correc edna for nucleated erythrocytes in Blood by Automated counOrdered By: Terry Dudley on 01-31-2024 WBC corrected for nucl RBC Auto (Bld) [#/Vol] 17.5 10*3/uL High 3.8-11.6 [facility] Leukocytes [#/volume] in Blo od by Automated countOrdered By: Terry Dudley on 01-31-2024 WBC (Bld) [#/Vol] 17.5 10*3/uL High 3.8-11.6 [facility] Comment on above: Performed By: #### H S TROP, PTT, CMP, DDIMER, BNP, CK, PT, CBC #### [place] [address] [place] Lymphocytes [#/volume] in Bl ood by Automated countOrdered By: Terry Dudley on 01-31-2024 Lymphocytes (Bld) [#/Vol] 2.1 10*3/uL Normal 1.00-4.8 [facility] Comment on above: Performed By: #### H S TROP, PTT, CMP, DDIMER, BNP, CK, PT, CBC #### [place] [address] [place] Lymphocytes/100 leukocytes i n Blood by Automated countOrdered By: Terry Dudley on 01-31-2024 Lymphocytes/100 WBC (Bld) 11.8 % Normal . [facility] Comment on above: Performed By: #### H S TROP, PTT, CMP, DDIMER, BNP, CK, PT, CBC #### [facility] [address] [place] [address] MCH [Entitic mass] by Automa edna countOrdered By: Terry Dudley on 01-31-2024 MCH (RBC) [Entitic mass] 31.7 pg Normal 24.7-34.3 [facility] Comment on above: Performed By: #### H S TROP, PTT, CMP, DDIMER, BNP, CK, PT, CBC #### [address] MCHC Auto (RBC) [Mass/Vol]Or dered By: Terry Dudley on 01-31-2024 MCHC (RBC) [Mass/Vol] 34.6 g/dL 32.0-35.0 [facility] MCV [Entitic volume] by Auto mated countOrdered By: Terry Dudley on 01-31-2024 MCV (RBC) [Entitic vol] 91.4 fL Normal 80-100 [facility] Comment on above: Performed By: #### H S TROP, PTT, CMP, DDIMER, BNP, CK, PT, CBC #### [address] Monocyte distribution width [Entitic volume] in Blood by AutomatedOrdered By: Terry Dudley on 01-31-2024 Monocyte distribution width Auto (Bld) [Entitic vol] 14.85 % 0.00-20.00 [facility] Neutrophils [#/volume] in Bl ood by Automated countOrdered By: Terry Dudley on 01-31-2024 Neutrophils (Bld) [#/Vol] 14.0 10*3/uL High 1.8-7.7 [facility] Comment on above: Performed By: #### H S TROP, PTT, CMP, DDIMER, BNP, CK, PT, CBC #### [facility] [address] Nitrite Test strip Ql (U)Ord ered By: Terry Dudley on 01-31-2024 Nitrite Ql (U) Negative Negative [facility] No Panel InformationOrdered By: Terry Dudley on 01-31-2024 Estimated GFR (CKD-EPI) > 60.0 mL/Min [facility] Creatinine Clearance (Chem 119.17 [facility] Nucleated erythrocytes [Pres ence] in Blood by Automated countOrdered By: Terry Dudley on 01-31-2024 Nucleated RBC Auto Ql (Bld) 0.0 /100{WBC} 0-0.5 [facility] Partial Thromboplastin Timeo n 01-31-2024 aPTT Coag (Bld) [Time] 26.1 s Normal 25.1-36.5 [facility] Comment on above: Result Comment: A he matocrit value greater than 55% may lead to inaccurate results in coagulation testing. Patients having hematocrit values >55% require a special collection tube for coagulation studies. Please contact the laboratory at [phone] for redraw instructions. Performed By: #### H S TROP, PTT, CMP, DDIMER, BNP, CK, PT, CBC #### [facility] [address] [place] [address] Platelet mean volume [Entiti c volume] in Blood by Automated countOrdered By: Terry Dudley on 01-31-2024 Platelet mean volume (Bld) [Entitic vol] 8.7 fL Normal 6.3-10.7 [facility] Comment on above: Performed By: #### H S TROP, PTT, CMP, DDIMER, BNP, CK, PT, CBC #### [facility] [address] [place] [address] [place] Platelets [#/volume] in Bloo d by Automated countOrdered By: Terry Dudley on 01-31-2024 Platelets (Bld) [#/Vol] 297 10*3/uL Normal 150-450 [facility] Comment on above: Performed By: #### H S TROP, PTT, CMP, DDIMER, BNP, CK, PT, CBC #### [facility] [address] Potassium [Moles/volume] in Serum or PlasmaOrdered By: Terry Dudley on 01-31-2024 Potassium [Moles/Vol] 3.4 mmol/L Low 3.5-5.1 [facility] Comment on above: Performed By: #### H S TROP, PTT, CMP, DDIMER, BNP, CK, PT, CBC #### [facility] [address] Protein Test strip (U) [Mass /Vol]Ordered By: Terry Dudley on 01-31-2024 Protein (U) [Mass/Vol] Negative Negative [facility] Protein [Mass/volume] in Ser um or PlasmaOrdered By: Terry Dudley on 01-31-2024 Protein [Mass/Vol] 7.7 g/dL Normal 6.4-8.9 [facility] Comment on above: Performed By: #### H S TROP, PTT, CMP, DDIMER, BNP, CK, PT, CBC #### [facility] [address] [place] [id number] [facility] Prothrombin time (PT)Ordered By: Terry Dudley on 01-31-2024 PT Coag (PPP) [Time] 14.0 s High 9.0-12.9 [facility] Comment on above: A hematocrit value g reater than 55% may lead to inaccurate results in coagulation testing. Patients having hematocrit values >55% require a special collection tube for coagulation studies. Please contact the laboratory at [phone] for redraw instructions. Result Comment: A he matocrit value greater than 55% may lead to inaccurate results in coagulation testing. Patients having hematocrit values >55% require a special collection tube for coagulation studies. Please contact the laboratory at [phone] for redraw instructions. Performed By: #### H S TROP, PTT, CMP, DDIMER, BNP, CK, PT, CBC #### [facility] [address] [place] [address] [facility] Serum globulin measurement b y calculation (mass/volume)Ordered By: Terry Dudley on 01-31-2024 Globulin (S) [Mass/Vol] 3.0 g/dL [facility] Comment on above: Performed By: #### H S TROP, PTT, CMP, DDIMER, BNP, CK, PT, CBC #### [facility] [address] [place] [address] Serum or plasma albumin/glob ulin mass ratioOrdered By: Terry Dudley on 01-31-2024 Albumin/Globulin [Mass ratio] 1.6 {ratio} [facility] Comment on above: Performed By: #### H S TROP, PTT, CMP, DDIMER, BNP, CK, PT, CBC #### [address] Serum or plasma anion gap de terminationOrdered By: Terry Dudley on 01-31-2024 Anion gap [Moles/Vol] 8.3 mmol/L Normal 6.0-15.0 [facility] Comment on above: Performed By: #### H S TROP, PTT, CMP, DDIMER, BNP, CK, PT, CBC #### [address] Sodium [Moles/volume] in Ser um or PlasmaOrdered By: Terry Dudley on 01-31-2024 Sodium [Moles/Vol] 136 mmol/L Normal 136-145 [facility] Comment on above: Performed By: #### H S TROP, PTT, CMP, DDIMER, BNP, CK, PT, CBC #### [address] Specific gravity Test strip (U) [Rel density]Ordered By: Terry Dudley on 01-31-2024 Specific gravity (U) [Rel density] 1.005 1.001-1.03 0 [facility] Troponin I High Sensitivityo n 01-31-2024 Troponin I High Sensitivity 3.5 pg/mL Normal 0.0-15.0 [facility] Comment on above: Result Comment: PERF ORMED BY: [place] [address] PATHOLOGIST SUPER[employer] JIANLAN SUN M.D. Performed By: #### H S TROP, PTT, CMP, DDIMER, BNP, CK, PT, CBC #### [facility] [address] [place] [address] [place] Troponin I.cardiac [Mass/vol ume] in Serum or Plasma by Detection limit <= 0.01 ng/Ordered By: Terry Dudley on 01-31-2024 Troponin I.cardiac DL <= 0.01 ng/mL [Mass/Vol] 3.5 pg/mL 0.0-15.0 [facility] Urea nitrogen [Mass/volume] in Serum or PlasmaOrdered By: Terry Dudley on 01-31-2024 Urea nitrogen [Mass/Vol] 10 mg/dL Normal 7-25 [facility] Comment on above: Performed By: #### H S TROP, PTT, CMP, DDIMER, BNP, CK, PT, CBC #### [facility] [address] [place] [address] [place] Urinalysison 01-31-2024 Bilirubin,Urine Negative Normal Negative [facility] Comment on above: Order Comment: Name Collection Type:: Clean-Voided Midstream Performed By: #### U A, UHCG #### [facility] [address] [place] [address] [place] Glucose Ql (U) Normal Normal Normal [facility] Comment on above: Order Comment: Name Collection Type:: Clean-Voided Midstream Performed By: #### U A, UHCG #### [facility] [address] [place] [address] [place] Nitrite,Urine Negative Normal Negative [facility] Comment on above: Order Comment: Name Collection Type:: Clean-Voided Midstream Performed By: #### U A, UHCG #### [facility] [address] [place] [id number] [place] Occult Blood,Urine Negative Normal Negative [facility] Comment on above: Order Comment: Name Collection Type:: Clean-Voided Midstream Performed By: #### U A, UHCG #### [facility] [address] [place] [id number] [place] Protein,Urine Negative Normal Negative [facility] Comment on above: Order Comment: Name Collection Type:: Clean-Voided Midstream Performed By: #### U A, UHCG #### [address] Specificy [place],Urine 1.005 Normal 1.001-1.03 0 [facility] Comment on above: Order Comment: Name Collection Type:: Clean-Voided Midstream Performed By: #### U A, UHCG #### [address] Urobilinogen,Urine Normal Normal Normal [facility] Comment on above: Order Comment: Name Collection Type:: Clean-Voided Midstream Performed By: #### U A, UHCG #### [address] Urine appearanceOrdered By: Terry Dudely on 01-31-2024 Appearance (U) Clear Normal Clear [facility] Comment on above: Order Comment: Name Collection Type:: Clean-Voided Midstream Performed By: #### U A, UHCG #### [address] Urobilinogen Test strip (U) [Mass/Vol]Ordered By: Terry Dudley on 01-31-2024 Urobilinogen (U) [Mass/Vol] Normal mg/dL Normal [facility] pH of Urine by Test stripOrd ered By: Terry Dudley on 01-31-2024 pH (U) 6.5 [pH] Normal 5.0-9.0 [facility] Comment on above: Order Comment: Name Collection Type:: Clean-Voided Midstream Performed By: #### U A, UHCG #### [address] PAP ACOG PANEL 2: 23 to 31on 10-14-2021 . . Normal [facility] Comment on above: Performed By: #### P TT #### [facility] [address] [address] Kaela Dimas Age Gdln ACOG Testing - Normal [facility] Comment on above: Performed By: #### P TT #### [facility] [address] [address] Kaela Judie DIAGNOSIS: Comment Normal [facility] Comment on above: Result Comment: NEGA TIVE FOR INTRAEPITHELIAL LESION OR MALIGNANCY. CELLULAR CHANGES ASSOCIATED WITH INFLAMMATION ARE PRESENT. Performed By: #### P TT #### [facility] [address] [place] [address] Kaela Judie Methodology: Comment Normal [facility] Comment on above: Result Comment: This liquid based ThinPrep(R) pap test was screened with the use of an image guided system. Performed By: #### P TT #### [facility] [address] [place] [address] Kaela Judie Note: Comment Normal [facility] Comment on above: Result Comment: The Pap smear is a screening test designed to aid in the detection of premalignant and malignant conditions of the uterine cervix. It is not a diagnostic procedure and should not be used as the sole means of detecting cervical cancer. Both false-positive and false-negative reports do occur. . Performed By: #### P TT #### [facility] [address] [place] [address] Kaelastephanie Dimas Performed by: Comment Normal [facility] Comment on above: Result Comment: Nancy Collins, Recovery Auditor (ASCP) Performed By: #### P TT #### [facility] [address] [place] [address] Kaelastephanie Dimas Reflex Criteria: Comment Normal [facility] Comment on above: Result Comment: The HPV DNA reflex criteria were not met with this specimen result therefore, no HPV testing was performed. . Performed By: #### P TT #### [facility] [address] [place] [address] Kaela Judie Specimen adequacy: Comment Normal [facility] Comment on above: Result Comment: Sati sfactory for evaluation. Endocervical and/or squamous metaplastic cells (endocervical component) are present. Performed By: #### P TT #### [facility] [address] [place] [address] Kaela Judie CBC AUTO DIFFon 02-07-2021 BASO # 0.1 103/ul Normal 0.0-0.1 [facility] Comment on above: Performed By: #### C BC #### [facility] [address] [place], [place] [address] Kaela Judie Basophils/100 WBC (Bld) 0.3 % Normal 0.2-2.0 [facility] Comment on above: Performed By: #### C BC #### [facility] [address] [place], [place] [address] Kaela Judie EO # 0.1 103/ul Normal 0.0-0.7 [facility] Comment on above: Performed By: #### C BC #### [facility] [address] [place], [place] [address] Kaela Judie Eosinophils/100 WBC (Bld) 0.5 % Critically low 0.9-7.0 [facility] Comment on above: Performed By: #### C BC #### [facility] [address] [place] [address] Kaela Judie Erythrocyte distribution width (RBC) [Ratio] 12.3 % Normal 11.0-15.0 [facility] Comment on above: Performed By: #### C BC #### [facility] [address] [place], [place] [address] Kaela Judie Hematocrit (Bld) [Volume fraction] 33.8 % Critically low 36.0-48.0 [facility] Comment on above: Performed By: #### C BC #### [facility] [address] [place], [place] [address] Kaela Judie Hemoglobin (Bld) [Mass/Vol] 11.6 g/dL Critically low 12.0-16.0 [facility] Comment on above: Performed By: #### C BC #### [facility] [address] [place], [place] [address] Kaela Judie IG # 0.20 10e3/ul Critically high 0.00-0.03 [facility] Comment on above: Performed By: #### C BC #### [facility] [address] [place], [place] [address] Kaela Judie IG % 1.2 % Critically high 0.0-0.5 [facility] Comment on above: Performed By: #### C BC #### [facility] [address] [place], [place] [address] Kaela Judie LYMPH # 1.6 103/ul Normal 1.2-3.8 [facility] Comment on above: Performed By: #### C BC #### [facility] [address] [place], [place] [address] Kaela Judie Lymphocytes/100 WBC (Bld) 9.2 % Critically low 20.5-60.0 [facility] Comment on above: Performed By: #### C BC #### [facility] [address] [place], [place] [address] Kaela Judie MANUAL DIFF REQ NO Normal [facility] Comment on above: Performed By: #### C BC #### [facility] [address] [place] [address] Kaela Judie MCH (RBC) [Entitic mass] 30.8 pg Normal 26.7-34.0 [facility] Comment on above: Performed By: #### C BC #### [facility] [address] [place], [place] [address] Kaelastephanie Dimas MCHC (RBC) [Mass/Vol] 34.3 g/dL Normal 29.9-35.2 [facility] Comment on above: Performed By: #### C BC #### [facility] [address] [place], [place] [address] Kaela Judie MCV (RBC) [Entitic vol] 89.7 fL Normal 81.0-99.0 [facility] Comment on above: Performed By: #### C BC #### [facility] [address] [place], [place] [address] Kaela Judie MONO # 0.9 103/ul Critically high 0.3-0.8 [facility] Comment on above: Performed By: #### C BC #### [facility] [address] [place], [place] [address] Kaela Judie Monocytes/100 WBC (Bld) 5.5 % Normal 1.7-12.0 [facility] Comment on above: Performed By: #### C BC #### [facility] [address] [place] [address] Kaela Dimas NEUT # 14.1 103/ul Critically high 1.4-6.5 [facility] Comment on above: Performed By: #### C BC #### [facility] [address] [place] [address] Kaela Dimas Neutrophils/100 WBC (Bld) 83.3 % Critically high 43.0-75.0 [facility] Comment on above: Performed By: #### C BC #### [facility] [address] [place] [address] Kaela Dimas Platelet mean volume (Bld) [Entitic vol] 11.0 fL Normal 9.5-13.5 [facility] Comment on above: Performed By: #### C BC #### [facility] [address] [place] [address] Kaela Sahuen PLT 192 103/ul Normal 150-450 [facility] Comment on above: Performed By: #### C BC #### [facility] [address] [place] [address] Kaela Sahuen RBC 3.77 106/ul Critically low 4.20-5.40 [facility] Comment on above: Performed By: #### C BC #### [facility] [address] [place] [address] Kaela Dimas WBC 16.9 103/ul Critically high 4.0-11.0 [facility] Comment on above: Performed By: #### C BC #### [facility] [address] [place] [address] Kaela Dimas ASYMPTOMATIC COVID-19 ANTIGE Non 02-05-2021 EUA Statement SEE BELOW Normal [facility] Comment on above: Result [...] sooner. Performed By: #### G TT3P #### [facility] [address] [place] [address] Kaela Dimas SARS-CoV-2 (COVID-19) RNA RIGOBERTO+probe Ql (Unsp spec) Negative Normal NEGATIVE [facility] Comment on above: Result Comment: Nega tive results are presumptive. They do not preclude infection and should not be used as the sole basis for treatment decisions. Additional confirmatory testing by a molecular method should be considered. Performed By: #### G TT3P #### [facility] [address] [place] [address] Kaela Dimas CBC AUTO DIFFon 02-05-2021 BASO # 0.1 103/ul Normal 0.0-0.1 [facility] Comment on above: Performed By: #### C BC #### [facility] [address] [place], [place] [address] Kaela Dimas Basophils/100 WBC (Bld) 0.3 % Normal 0.2-2.0 [facility] Comment on above: Performed By: #### C BC #### [facility] [address] [place], [place] [address] Kaela Dimas EO # 0.1 103/ul Normal 0.0-0.7 [facility] Comment on above: Performed By: #### C BC #### [facility] [address] [place], [place] [address] Kaela Dimas Eosinophils/100 WBC (Bld) 0.3 % Critically low 0.9-7.0 [facility] Comment on above: Performed By: #### C BC #### [facility] [address] [place], [place] [address] Kaela Dimas Erythrocyte distribution width (RBC) [Ratio] 12.0 % Normal 11.0-15.0 [facility] Comment on above: Performed By: #### C BC #### [facility] [address] [place] [address] Kaelastephanie Dimas Hematocrit (Bld) [Volume fraction] 36.9 % Normal 36.0-48.0 [facility] Comment on above: Performed By: #### C BC #### [facility] [address] [place] [address] Kaela Judie Hemoglobin (Bld) [Mass/Vol] 12.7 g/dL Normal 12.0-16.0 [facility] Comment on above: Performed By: #### C BC #### [facility] [address] [place] [address] Kaela Judie IG # 0.19 10e3/ul Critically high 0.00-0.03 [facility] Comment on above: Performed By: #### C BC #### [facility] [address] [place] [address] Kaela Judie IG % 1.0 % Critically high 0.0-0.5 [facility] Comment on above: Performed By: #### C BC #### [facility] [address] [place] [address] Kaela Judie LYMPH # 1.4 103/ul Normal 1.2-3.8 [facility] Comment on above: Performed By: #### C BC #### [facility] [address] [place] [address] Kaela Dimas Lymphocytes/100 WBC (Bld) 7.6 % Critically low 20.5-60.0 [facility] Comment on above: Performed By: #### C BC #### [facility] [address] [place] [address] Kaela Sahuen MANUAL DIFF REQ NO Normal [facility] Comment on above: Performed By: #### C BC #### [facility] [address] [place] [address] Kaela Judie MCH (RBC) [Entitic mass] 30.5 pg Normal 26.7-34.0 [facility] Comment on above: Performed By: #### C BC #### [facility] [address] [place], [place] [address] Kaela Dimas MCHC (RBC) [Mass/Vol] 34.4 g/dL Normal 29.9-35.2 [facility] Comment on above: Performed By: #### C BC #### [facility] [address] [place], [place] [address] Kaela Dimas MCV (RBC) [Entitic vol] 88.5 fL Normal 81.0-99.0 [facility] Comment on above: Performed By: #### C BC #### [facility] [address] [place], [place] [address] Kaela Dimas MONO # 1.0 103/ul Critically high 0.3-0.8 [facility] Comment on above: Performed By: #### C BC #### [facility] [address] [place], [place] [address] Kaela Dimas Monocytes/100 WBC (Bld) 5.5 % Normal 1.7-12.0 [facility] Comment on above: Performed By: #### C BC #### [facility] [address] [place], [place] [address] Kaela Sahuen NEUT # 15.7 103/ul Critically high 1.4-6.5 [facility] Comment on above: Performed By: #### C BC #### [facility] [address] [place], [place] [address] Kaela Dimas Neutrophils/100 WBC (Bld) 85.3 % Critically high 43.0-75.0 [facility] Comment on above: Performed By: #### C BC #### [facility] [address] [place], [place] [address] Kaela Dimas Platelet mean volume (Bld) [Entitic vol] 11.8 fL Normal 9.5-13.5 [facility] Comment on above: Performed By: #### C BC #### [facility] [address] [place], [place] [address] Kaela Judie PLT 226 103/ul Normal 150-450 [facility] Comment on above: Performed By: #### C BC #### [facility] [address] [place], [place] [address] Kaela Judie RBC 4.17 106/ul Critically low 4.20-5.40 [facility] Comment on above: Performed By: #### C BC #### [facility] [address] [place] [address] Kaela Dimas WBC 18.5 103/ul Critically high 4.0-11.0 [facility] Comment on above: Performed By: #### C BC #### [facility] [address] [place] [address] Kaela Dimas DRUG SCREEN RAPID (URINE)on 02-05-2021 AMP Negative Normal NEGATIVE [facility] Comment on above: Performed By: #### D RUGRPD #### [facility] [address] [place] [address] Kaelastephanie Dimas BAR Negative Normal NEGATIVE [facility] Comment on above: Performed By: #### D RUGRPD #### [facility] [address] [place] [address] Kaelastephanie Sahuen BUP Negative Normal NEGATIVE [facility] Comment on above: Performed By: #### D RUGRPD #### [facility] [address] [place] [address] Kaela Judie BZO Negative Normal NEGATIVE [facility] Comment on above: Performed By: #### D RUGRPD #### [facility] [address] [place] [address] Kaelastephanie Dimas JERRY Negative Normal NEGATIVE [facility] Comment on above: Performed By: #### D RUGRPD #### [facility] [address] [place] [address] Kaela Dmias CUT-OFFS SEE BELOW Normal [facility] Comment on above: Result Comment: AMP [...] ng/mL Performed By: #### D RUGRPD #### [facility] [address] [place] [address] Kaela Judie DRUG CUT HEADER DRUG CLASS TEST SYST EM CUT-OFF CONCENTRATIONS ARE FOLLOWS: Normal [facility] Comment on above: Performed By: #### D RUGRPD #### [facility] [address] [address] Kaela Judie mAMP Negative Normal NEGATIVE [facility] Comment on above: Performed By: #### D RUGRPD #### [facility] [address] [place] [address] Kaela Judie MTD Negative Normal NEGATIVE [facility] Comment on above: Performed By: #### D RUGRPD #### [facility] [address] [place] [address] Kaela Judie OPI Negative Normal NEGATIVE [facility] Comment on above: Performed By: #### D RUGRPD #### [facility] [address] [place] [address] Kaela Judie OXY Negative Normal NEGATIVE [facility] Comment on above: Performed By: #### D RUGRPD #### [facility] [address] [place] [address] Kaela Judie PCP Negative Normal NEGATIVE [facility] Comment on above: Performed By: #### D RUGRPD #### [facility] [address] [place] [address] Kaela Judie PPX Negative Normal NEGATIVE [facility] Comment on above: Performed By: #### D RUGRPD #### [facility] [address] [place] [address] Kaela Judie TCA Negative Normal NEGATIVE [facility] Comment on above: Performed By: #### D RUGRPD #### [facility] [address] [place] [address] Kaela Judie THC Negative Normal NEGATIVE [facility] Comment on above: Performed By: #### D RUGRPD #### [facility] [address] [place], [place] [address] Kaela Dimas TYPE AND SCREENon 02-05-2021 TYPE AND SCREEN Negative Normal [facility] Comment on above: Performed By: #### P TT #### [facility] [address] [place], [place] [address] Kaela Dimas GROUP B STREP CULTUREon - S. agalactiae Ag Ql (Unsp spec) Culture Observations: NEGATIVE FOR GROUP B STREPTOCOCCUS. Normal [facility] Comment on above: Performed By: #### P TT #### [facility] [address] [place], [place] [address] Kaela Dimas US PREG BIOPHY W NON [...] by: MICHELLE LANE Date: 2021-01-30 08:23 Normal [facility] US PREG GROWTHon 01-30-2021 US PREG GROWTH [...] MICHELLE LANE Date: 2021-01-30 08:25 Normal [facility] US PREG BIOPHY W [...] MICHELLE LANE Date: 2021-01-23 07:22 Normal [facility] US PREG BIOPHY W [...] by: MICHELLE LANE Date: 2021-01-16 07:31 Normal [facility] PROTEIN 24HR URINEon 021 T PROT, 24 HR UR 603.9 mg/24 hr Critically high 42.0-225.0 [facility] Comment on above: Performed By: #### G TT3P #### [facility] [address] [place] [id number] Kaela Judie UR PROT 12.2 mg/dL Critically high <=12.0 [facility] Comment on above: Performed By: #### G TT3P #### [facility] [address] [place], [place] [address] Kaela Judie UR TOT VOL 4950 ml/24 HR Normal [facility] Comment on above: Performed By: #### G TT3P #### [facility] [address] [place] [address] Kaela Judie CBC AUTO DIFFon 01-13-2021 BASO # 0.0 103/ul Normal 0.0-0.1 [facility] Comment on above: Performed By: #### G TT3P #### [facility] [address] [place], [place] [address] Kaela Judie Basophils/100 WBC (Bld) 0.2 % Normal 0.2-2.0 [facility] Comment on above: Performed By: #### G TT3P #### [facility] [address] [place], [place] [address] Kaela Judie EO # 0.1 103/ul Normal 0.0-0.7 [facility] Comment on above: Performed By: #### G TT3P #### [facility] [address] [place], [place] [address] Kaela Judie Eosinophils/100 WBC (Bld) 0.6 % Critically low 0.9-7.0 [facility] Comment on above: Performed By: #### G TT3P #### [facility] [address] [place], [place] [address] Kaela Judie Erythrocyte distribution width (RBC) [Ratio] 11.7 % Normal 11.0-15.0 [facility] Comment on above: Performed By: #### G TT3P #### [facility] [address] [place], [place] [address] Kaela Judie Hematocrit (Bld) [Volume fraction] 34.5 % Critically low 36.0-48.0 [facility] Comment on above: Performed By: #### G TT3P #### [facility] [address] [id number] Kaela Judie Hemoglobin (Bld) [Mass/Vol] 12.1 g/dL Normal 12.0-16.0 [facility] Comment on above: Performed By: #### G TT3P #### [facility] [address] [id number] Kaela Judie IG # 0.20 10e3/ul Critically high 0.00-0.03 [facility] Comment on above: Performed By: #### G TT3P #### [facility] [address] [id number] Kaela Judie IG % 1.2 % Critically high 0.0-0.5 [facility] Comment on above: Performed By: #### G TT3P #### [facility] [address] [id number] Kaela Judie LYMPH # 1.5 103/ul Normal 1.2-3.8 [facility] Comment on above: Performed By: #### G TT3P #### [facility] [address] [place], [place] [id number] Kaela Dimas Lymphocytes/100 WBC (Bld) 8.6 % Critically low 20.5-60.0 [facility] Comment on above: Performed By: #### G TT3P #### [facility] [address] [place], [place] [id number] Kaela Dimas MANUAL DIFF REQ NO Normal [facility] Comment on above: Performed By: #### G TT3P #### [facility] [address] [place], [place] [id number] Kaela Dimas MCH (RBC) [Entitic mass] 30.6 pg Normal 26.7-34.0 [facility] Comment on above: Performed By: #### G TT3P #### [facility] [address] [id number] Kaela Dimas MCHC (RBC) [Mass/Vol] 35.1 g/dL Normal 29.9-35.2 [facility] Comment on above: Performed By: #### G TT3P #### [facility] [address] [id number] Kaela Dimas MCV (RBC) [Entitic vol] 87.3 fL Normal 81.0-99.0 [facility] Comment on above: Performed By: #### G TT3P #### [facility] [address] [id number] Kaelastephanie Sahuen MONO # 1.2 103/ul Critically high 0.3-0.8 [facility] Comment on above: Performed By: #### G TT3P #### [facility] [address] [address] Kaela Judie Monocytes/100 WBC (Bld) 6.6 % Normal 1.7-12.0 [facility] Comment on above: Performed By: #### G TT3P #### [facility] [address] [place] [address] Kaela Judie NEUT # 14.4 103/ul Critically high 1.4-6.5 [facility] Comment on above: Performed By: #### G TT3P #### [facility] [address] [place], [place] [id number] Kaela Judie Neutrophils/100 WBC (Bld) 82.8 % Critically high 43.0-75.0 [facility] Comment on above: Performed By: #### G TT3P #### [facility] [address] [place], [place] [id number] Kaela Dimas Platelet mean volume (Bld) [Entitic vol] 12.1 fL Normal 9.5-13.5 [facility] Comment on above: Performed By: #### G TT3P #### [facility] [address] [place] [address] Kaela Judie PLT 216 103/ul Normal 150-450 [facility] Comment on above: Performed By: #### G TT3P #### [facility] [address] [id number] Kaela Judie RBC 3.95 106/ul Critically low 4.20-5.40 [facility] Comment on above: Performed By: #### G TT3P #### [facility] [address] [place], [place] [address] Kaela Judie WBC 17.4 103/ul Critically high 4.0-11.0 [facility] Comment on above: Performed By: #### G TT3P #### [facility] [address] [place] [id number] Kaela Judie CULTURE URINEon 01-13-2021 CULTURE URINE Culture Observations : LIGHT GROWTH OF MIXED GENITAL TINO. NO POTENTIAL PATHOGENS SEEN. Normal [facility] Comment on above: Performed By: #### P TT #### [facility] [address] [place] [id number] Kaela Judie LDHon 01-13-2021 LDH 194 U/L Normal 122-222 [facility] Comment on above: Performed By: #### U ELIZABETH, LDH #### [facility] [address] [place], [place] [id number] Kaela Judie PROF 14(COMP METB)on 021 Albumin [Mass/Vol] 2.7 g/dL Critically low 3.5-5.0 [facility] Comment on above: Performed By: #### G TT3P #### [facility] [address] [place], [place] [id number] Kaela Judie Albumin/Globulin [Mass ratio] 0.9 {ratio} Normal [facility] Comment on above: Performed By: #### G TT3P #### [facility] [address] [place], [place] [id number] Kaela Judie ALP [Catalytic activity/Vol] 134 U/L Critically high 38-126 [facility] Comment on above: Performed By: #### G TT3P #### [facility] [address] [place] [id number] Kaela Judie ALT [Catalytic activity/Vol] 21 U/L Normal 9-52 [facility] Comment on above: Performed By: #### G TT3P #### [facility] [address] [place] [address] Kaela Judie Anion gap [Moles/Vol] 11.6 mmol/L Normal [facility] Comment on above: Performed By: #### G TT3P #### [facility] [address] [address] Kaela Judie AST [Catalytic activity/Vol] 17 U/L Normal 14-36 [facility] Comment on above: Performed By: #### G TT3P #### [facility] [address] [address] Kaela Judie Bilirubin [Mass/Vol] 0.2 mg/dL Normal 0.2-1.3 [facility] Comment on above: Performed By: #### G TT3P #### [facility] [address] [address] Kaela Judie Calcium [Mass/Vol] 9.1 mg/dL Normal 8.4-10.2 [facility] Comment on above: Performed By: #### G TT3P #### [facility] [address] [place] [address] Kaela Judie Chloride [Moles/Vol] 106 mmol/L Normal 98-107 [facility] Comment on above: Performed By: #### G TT3P #### [facility] [address] [place] [address] Kaela Judie CO2 [Moles/Vol] 25.8 mmol/L Normal 22.0-30.0 [facility] Comment on above: Performed By: #### G TT3P #### [facility] [address] [place] [address] Kaela Judie Creatinine [Mass/Vol] 0.53 mg/dL Normal 0.52-1.04 [facility] Comment on above: Performed By: #### G TT3P #### [facility] [address] [place] [address] Kaela Judie EGFR-AF MACEDONIAN >60 Normal >=60 [facility] Comment on above: Performed By: #### G TT3P #### [facility] [address] [place] [address] Kaela Judie EGFR-NON AF MACEDONIAN >60 Normal >=60 [facility] Comment on above: Performed By: #### G TT3P #### [facility] [address] [place] [address] Kaela Judie Globulin (S) [Mass/Vol] 3.0 g/dL Normal [facility] Comment on above: Performed By: #### G TT3P #### [facility] [address] [place], [place] [id number] Kaela Judie Glucose [Mass/Vol] 85 mg/dL Normal 74-106 [facility] Comment on above: Performed By: #### G TT3P #### [facility] [address] [place], [place] [phone] Kaela Judie Potassium [Moles/Vol] 3.4 mmol/L Normal 3.4-5.0 [facility] Comment on above: Performed By: #### G TT3P #### [facility] [address] [place] [address] Kaela Judie Protein [Mass/Vol] 5.7 g/dL Critically low 6.1-8.2 [facility] Comment on above: Performed By: #### G TT3P #### [facility] [address] [place] [address] Kaela Judie Sodium [Moles/Vol] 140 mmol/L Normal 137-145 [facility] Comment on above: Performed By: #### G TT3P #### [facility] [address] [place] [address] Kaela Judie Urea nitrogen [Mass/Vol] 10.0 mg/dL Normal 7.0-17.0 [facility] Comment on above: Performed By: #### G TT3P #### [facility] [address] [place], [place] [id number] Kaela Judie Urea nitrogen/Creatinine [Mass ratio] 18.9 mg/mg Normal [facility] Comment on above: Performed By: #### G TT3P #### [facility] [address] [place] [address] Kaela Judie PTTon 01-13-2021 aPTT Coag (Bld) [Time] 23.6 s Normal 22.3-36.2 [facility] Comment on above: Performed By: #### P TT #### [facility] [address] [place], [place] [phone] Kaela Judie URIC ACID SERUMon 01-13-2021 Urate [Mass/Vol] 3.7 mg/dL Normal 2.5-6.2 [facility] Comment on above: Performed By: #### U ELIZABETH, LDH #### [facility] [address] [place] [address] Kaela Judie UA (CLEAN/CATCH) SPOT WELDER/MICRO I F IND.on 01-12-2021 Bilirubin Ql (U) Negative Normal NEGATIVE [facility] Comment on above: Performed By: #### U MICRO, UACSIND #### [facility] [address] [place] [address] Kaela Judie Clarity (U) CLEAR Normal CLEAR [facility] Comment on above: Performed By: #### U MICRO, UACSIND #### [facility] [address] [place] [address] Kaela Judie Color (U) LT. YELLOW Normal YELLOW [facility] Comment on above: Performed By: #### U MICRO, UACSIND #### [facility] [address] [place] [address] Kaela Judie Glucose Ql (U) Negative Normal NEGATIVE [facility] Comment on above: Performed By: #### U MICRO, UACSIND #### [facility] [address] [place] [address] Kaela Judie Hemoglobin Ql (U) Negative Normal NEGATIVE [facility] Comment on above: Performed By: #### U MICRO, UACSIND #### [facility] [address] [place] [address] Kaela Judie Ketones Ql (U) Negative Normal NEGATIVE [facility] Comment on above: Performed By: #### U MICRO, UACSIND #### [facility] [address] [place] [address] Kaela Judie LEUKOCYTES TRACE Abnormal NEGATIVE [facility] Comment on above: Performed By: #### U MICRO, UACSIND #### [facility] [address] [place] [address] Kaela Judie Nitrite Ql (U) Negative Normal NEGATIVE [facility] Comment on above: Performed By: #### U MICRO, UACSIND #### [facility] [address] [place] [address] Kaela Dimas pH (U) 6.0 [pH] Normal 5-9 [facility] Comment on above: Performed By: #### U MICRO, UACSIND #### [facility] [address] [place] [address] Kaela Dimas SPEC GRAVITY 1.025 Normal 1.005-<=1. 025 [facility] Comment on above: Performed By: #### U MICRO, UACSIND #### [facility] [address] [place] [address] Kaela Dimas UA PROTEIN Negative Normal NEGATIVE/ TRACE [facility] Comment on above: Performed By: #### U MICRO, UACSIND #### [facility] [address] [place] [address] Kaela Dimas UR MICRO IND INDICATED Normal [facility] Comment on above: Performed By: #### U MICRO, UACSIND #### [facility] [address] [place] [address] Kaela Dimas Urobilinogen Qn (U) 0.2 {Sylvester'U}/dL Normal 0.2 - 1. 0 [facility] Comment on above: Performed By: #### U MICRO, UACSIND #### [facility] [address] [place] [address] Kaela Dimas URINE MICROSCOPIC ONLYon BACTERIA TRACE Abnormal NONE SEEN [facility] Comment on above: Performed By: #### U MICRO, UACSIND #### [facility] [address] [place] [address] Kaela Dimas Bacteria identified Cx Nom (U) INDICATED Normal [facility] Comment on above: Performed By: #### U MICRO, UACSIND #### [facility] [address] [place] [address] Kaelastephanie Dimas CAST NONE SEEN Normal NONE SEEN [facility] Comment on above: Performed By: #### U MICRO, UACSIND #### [facility] [address] [place] [address] Kaela Sahuen Crystals LM Nom (Urine sed) NONE SEEN Normal NONE SEEN [facility] Comment on above: Performed By: #### U MICRO, UACSIND #### [facility] [address] [place], [place] [address] Kaela Judie Epithelial cells LM Ql (Urine sed) FEW Abnormal NONE SEEN /RARE [facility] Comment on above: Performed By: #### U MICRO, UACSIND #### [facility] [address] [id number] Kaela Judie MUCOUS SMALL Abnormal NONE SEEN [facility] Comment on above: Performed By: #### U MICRO, UACSIND #### [facility] [address] [phone] Kaela Judie RBC 0-2 Normal 0-2 [facility] Comment on above: Performed By: #### U MICRO, UACSIND #### [facility] [address] [address] Kaela Judie WBC 2-5 Abnormal NONE SEEN [facility] Comment on above: Performed By: #### U MICRO, UACSIND #### [facility] [address] [id number] Kaela Judie US PREG BIOPHY W NON [...] IRINEO COMBS Date: 2021-01-09 07:18 Normal [facility] US PREG GROWTHon 12-31-2020 [...] cm; 32 weeks 2 days; % EFW: 4.028931, 39% FL/AC: 0.855607 FL/BPD: 0.604114 HC/AC: 1.432797 GESTATIONAL AGE: Age by EDC: 32 weeks 1 day SUSANNA by EDC: 02/24/2021 Age by US: 32 weeks 0 days SUSANNA by US: 02/25/2021 IMPRESSION: Normal interval growth Electronically authenticated by: IRINEO COMBS Date: 2020-12-31 09:38 Normal [facility] GTT 3 HR PREGon 12-12-2020 Glucose [Mass/Vol] 86 mg/dL Normal 74-106 [facility] Comment on above: Performed By: #### G TT3P #### [facility] [address] [place] [address] Kaela Judie Glucose [Mass/Vol] 179 mg/dL Normal [facility] Comment on above: Performed By: #### G TT3P #### [facility] [address] [place] [address] Kaela Judie Glucose [Mass/Vol] 131 mg/dL Normal [facility] Comment on above: Performed By: #### G TT3P #### [facility] [address] [address] Kaela Judie Glucose [Mass/Vol] 145 mg/dL Normal [facility] Comment on above: Performed By: #### G TT3P #### [facility] [address] [place] [address] Kaela Judie GLUCOSE - 1HRon 12-05-2020 Glucose [Mass/Vol] 151 mg/dL Critically high 74-106 [facility] Comment on above: Result Comment: sherri ent was approximately 5 minutes late for draw Performed By: #### G LU1HR #### [facility] [address] [place] [address] Kaela Dimas HEMOGRAM AND PLATELon 2020 Hematocrit (Bld) [Volume fraction] 38.4 % Normal 36.0-48.0 [facility] Comment on above: Performed By: #### G TT3P #### [facility] [address] [place] [address] Kaela Judie Hemoglobin (Bld) [Mass/Vol] 13.2 g/dL Normal 12.0-16.0 [facility] Comment on above: Performed By: #### G TT3P #### [facility] [address] [place] [address] Kaela Dimas MCH (RBC) [Entitic mass] 30.8 pg Normal 26.7-34.0 [facility] Comment on above: Performed By: #### G TT3P #### [facility] [address] [place] [address] Kaela Dimas MCHC (RBC) [Mass/Vol] 34.4 g/dL Normal 29.9-35.2 [facility] Comment on above: Performed By: #### G TT3P #### [facility] [address] [place] [address] Kaela Dimas MCV (RBC) [Entitic vol] 89.5 fL Normal 81.0-99.0 [facility] Comment on above: Performed By: #### G TT3P #### [facility] [address] [place] [address] Kaelastephanie Sahuen PLT 238 103/ul Normal 150-450 [facility] Comment on above: Performed By: #### G TT3P #### [facility] [address] [place] [address] Kaela Judie RBC 4.29 106/ul Normal 4.20-5.40 [facility] Comment on above: Performed By: #### G TT3P #### [facility] [address] [place] [address] Kaela Judie WBC 17.0 103/ul Critically high 4.0-11.0 [facility] Comment on above: Performed By: #### G TT3P #### [facility] [address] [place] [address] Kaela Dimas PREG GROWTHon 12-03-2020 US PREG [...] cm; 28 weeks 0 days; % EFW: 2.525142, 2 lbs. 10 oz., 40% FL/AC: 0.091042 FL/BPD: 0.912485 HC/AC: 1.981994 GESTATIONAL AGE: Age by EDC: 28 weeks 1 day SUSANNA by EDC: 02/24/2021 Age by US: 20 weeks 2 days SUSANNA by US: 02/23/2021 IMPRESSION: Normal interval growth Electronically authenticated by: IRINEO COMBS Date: 2020-12-03 10:04 Normal [facility] Vital Signs Date Time Vital Sign Value Performing Clinician Facility 08-14-2024 16:26-0500 Body mass index (BMI) [Ratio] 41.65 kg/m2 [employer] Work Phone: [facility] 08-14-2024 16:26-0500 Body weight 106.65 kg [employer] Work Phone: [facility] 08-14-2024 16:26-0500 Diastolic blood pressure 80 mm[Hg] [employer] Work Phone: [facility] 08-14-2024 16:26-0500 Systolic blood pressure 130 mm[Hg] [employer] Work Phone: [facility] 07-31-2024 15:22-0500 Body mass index (BMI) [Ratio] 41.81 kg/m2 Madisyn KERNS Work Phone: [facility] 07-31-2024 15:22-0500 Body weight 107.05 kg Madisyn KERNS Work Phone: [facility] 07-31-2024 15:22-0500 Diastolic blood pressure 72 mm[Hg] Madisyn KERNS Work Phone: [facility] 07-31-2024 15:22-0500 Systolic blood pressure 122 mm[Hg] Madisyn KERNS Work Phone: [facility] 07-17-2024 16:19-0500 [...] 160 cm Aniceto Fox MD Work Phone: [facility] 07-14-2024 11:13-0500 Body mass index (BMI) [Ratio] 40.74 kg/m2 Aniceto Fox MD Work Phone: [facility] 07-14-2024 11:13-0500 Body weight 104.33 kg Aniceto Fox MD Work Phone: [facility] 07-14-2024 11:13-0500 Diastolic blood pressure 84 mm[Hg] Aniceto Fox MD Work Phone: [facility] 07-14-2024 11:13-0500 Heart rate 104 /min Aniceto Fox MD Work Phone: [facility] 07-14-2024 11:13-0500 Systolic blood pressure 144 mm[Hg] Aniceto Fox MD Work Phone: [facility] 06-15-2024 15:34-0500 Body mass index (BMI) [Ratio] 40.6 kg/m2 Madisyn KERNS Work Phone: [facility] 06-15-2024 15:34-0500 Body weight 103.96 kg Madisyn KERNS Work Phone: [facility] 06-15-2024 15:34-0500 Diastolic blood pressure 76 mm[Hg] Madisyn KERNS Work Phone: [facility] 06-15-2024 15:34-0500 Systolic blood pressure 122 mm[Hg] Madisyn KERNS Work Phone: [facility] 05-18-2024 12:07-0400 [...] [Ratio] 39.41 kg/m2 Madisyn KERNS Work Phone: [facility] 04-20-2024 08:46-0400 Body weight 100.92 kg Madisyn KERNS Work Phone: [facility] 04-20-2024 08:46-0400 Diastolic blood pressure 82 mm[Hg] Madisyn KERNS Work Phone: [facility] 04-20-2024 08:46-0400 Systolic blood pressure 122 mm[Hg] Madisyn Gaona PA Work Phone: [facility] 03-22-2024 11:34-0400 [...] 74 mm[Hg] MD Jacques Mccarthy Work Phone: [facility] 01-31-2024 18:14-0400 Heart rate 100 /min MD Jacques Mccarthy Work Phone: [facility] 01-31-2024 18:14-0400 Respiratory rate 18 /min MD Jacques Mccarthy Work Phone: [facility] 01-31-2024 18:14-0400 SaO2% (BldA) [Mass fraction] 100 % MD Jacques Mccarthy Work Phone: [facility] 01-31-2024 18:14-0400 Systolic blood pressure 156 mm[Hg] MD Jacques Mccarthy Work Phone: [facility] 01-31-2024 14:04-0400 Body height 160.02 cm MD Jacques Mccarthy Work Phone: [facility] 01-31-2024 14:04-0400 Body temperature 97.4 [degF] MD Jacques Mccarthy Work Phone: [facility] 01-31-2024 14:04-0400 Body weight 98.5 kg MD Jacques Mccarthy Work Phone: [facility] Encounters Encounter Date Encounter Type Care Provider Facility Start: 08-22-2024 End: 08-22-2024 Bamboo flowsheet Scotty Jacquie DO Work Phone: [facility] Start: 08-22-2024 End: 08-22-2024 Bamboo flowsheet Scotty Jacquie DO Work Phone: [facility] Start: 08-16-2024 End: 08-16-2024 Documentation procedure Judie Stearns [facility] Start: 08-15-2024 End: 08-15-2024 Office outpatient visit 25 minutes Nubia Lundberg MD Work Phone: [facility] Comment on above: 32 weeks gestation o f (Primary Dx); Gestational diabetes mellitus (GDM) in third trimester, gestational diabetes method of control unspecified; Chronic hypertension affecting ; BMI 40.0-44.9, adult ([facility]); arrhythmia affecting , antepartum; Polyhydramnios affecting ; Separation of chorion and amnion membranes, antepartum Start: 08-15-2024 End: 08-15-2024 Orders Only Judie Stearns [facility] Comment on above: Abnormal ultrasonic finding [...] method of control unspecified; Hypertension, unspecified type ([facility]); Gestational diabetes mellitus (GDM), antepartum, gestational diabetes method of control unspecified; Elevated glucose tolerance test Start: 07-14-2024 End: 07-14-2024 Office consultation new/estab patient 60 min Aniceto Fox MD Work Phone: [facility] Comment on above: Gestational diabetes mellitus (GDM), antepartum, gestational diabetes method of control unspecified (Primary Dx); Chronic hypertension affecting Start: 07-14-2024 End: 07-14-2024 ambulatory [facility] Start: 07-13-2024 End: 07-13-2024 Clinisync Result Encounter Madisyn KERNS Work Phone: [facility] Unsolicited Start: 07-13-2024 End: 07-13-2024 Clinisync Result Encounter Madisyn KERNS Work Phone: [facility] Unsolicited Start: 06-21-2024 End: 06-21-2024 Chart abstracting Aniceto Fox MD Work Phone: [facility] Start: 06-15-2024 End: 06-15-2024 flow sheet [...] Bamboo flowsheet Scotty Jacquie DO Work Phone: [facility] Start: 05-18-2024 End: 05-18-2024 Bamboo flowsheet Scotty Jacquie DO Work Phone: [facility] Start: 05-18-2024 End: 05-18-2024 ambulatory SCOTTY JACQUIE Not Available Start: 05-18-2024 End: 05-18-2024 flow sheet Scotty Jacquie DO Work Phone: [facility] Comment on above: 20 weeks gestation o f ; Second trimester Start: 04-20-2024 End: 04-20-2024 Bamboo flowsheet Madisyn KERNS Work Phone: [facility] Start: 04-20-2024 End: 04-20-2024 Bamboo flowsheet Madisyn KERNS Work Phone: [facility] Start: 04-20-2024 End: 04-20-2024 Office outpatient visit 15 minutes Madisyn KERNS Work Phone: [facility] Comment on above: Screening, , for anatomic survey; Well woman exam with routine gynecological exam; Screen for STD (sexually transmitted disease); Vaginal discharge; Second trimester Start: 04-20-2024 End: 04-20-2024 Patient encounter procedure Madisyn KERNS Work Phone: [facility] Start: 04-20-2024 End: 04-20-2024 ambulatory MADISYN GAONA Not Available Start: 03-22-2024 End: 03-22-2024 Bamboo flowsheet Scotty Jacquie DO Work Phone: [facility] Start: 03-22-2024 End: 03-22-2024 Bamboo flowsheet Scotty Jacquie DO Work Phone: [facility] Start: 03-22-2024 End: 03-22-2024 flow sheet Scotty Jacquie DO Work Phone: [employer] [facility] [facility] [facility] Comment on above: Second trimester pre gnancy; Abnormal CBC Start: 03-22-2024 End: 03-22-2024 ambulatory SCOTTY JACQUIE Not Available Start: 02-24-2024 End: 02-24-2024 ambulatory SCOTTY DHILLON Not Available Start: 02-22-2024 End: 02-22-2024 ambulatory MADISYN GAONA Not Available Start: 02-11-2024 End: 02-11-2024 ambulatory SCOTTY DHILLON Not Available Start: 02-08-2024 End: 02-08-2024 ambulatory SCOTTY DHILLON Not Available Start: 01-31-2024 End: 01-31-2024 Emergency department patient visit MD Jacques Mccarthy Work Phone: [facility] Work Phone: Start: 10-08-2021 End: 10-08-[address] SCOTTY DHILLON Facility:H1 Start: 02-19-[address] SCOTTY DHILLON Facility :H1 Start: 02-11-2021 End: 02-11-[address] SCOTTY DHILOLN Facility:H1 Start: 02-06-2021 Evaluation and manag ement [...] stick/tabl et rgnt non-auto w/o micrscp Scotty Jacqiue DO Work Phone: Start: 08-07-2024 ALL CBC WITH AUTO DIFF Scotty Jacquie DO Work Phone: Start: 08-05-2024 ALL CBC WITH AUTO DIFF Scotty Jacquie DO Work Phone: Start: 08-04-2024 [facility] UA (CLEAN/CATCH) SPOT WELDER/MICRO IF IND. Scotty Jacquie DO Work Phone: [...] Author Start: 08-15-2025 Tobacco Screening Tobacco Screening [facility] Start: 07-14-2025 Adult BMI Screening Adult BMI Screen ing [facility] Start: 06-21-2025 Adult BMI Screening Adult BMI Screen ing [facility] Start: 08-30-2024 End: 08-30-2024 Patient encounter procedure 08/30/2024 10:30 AM EST Office Visit [facility] [address] [place] [address] Eliud Wilson MD [address] [place] [address] [facility] Start: 08-22-2024 End: 08-22-2024 Patient encounter procedure 08/22/2024 2:30 PM EST Routine [facility] [address] [place] [phone] Scotty Dhillon, DO [address] [place] [address] [facility] Start: 08-14-2024 End: 08-14-2024 Patient encounter procedure 08/14/2024 3:30 PM EST Routine [facility] [address] [place] [address] Scotty Dhillon, DO [address] [place], [place] [id number] [facility] Start: 07-31-2024 End: 07-31-2024 Patient encounter procedure [facility] Comment on above: Arrived Start: 07-17-2024 End: 07-17-2024 Patient encounter procedure 07/17/2024 3:20 PM EST Routine [facility] [address] [place] [place] [phone] Scotty Dhillon DO [address] [place] [address] [facility] Start: 07-17-2024 End: 07-17-2024 Professional / ancillary services management 07/17/2024 3:00 PM EST Ancillary Procedure [facility] [address] [facility] [place] [address] [facility] Start: 07-17-2024 End: [...] type (CMS/HCC) Expected: 07/17/2024 (Approximate), Expires: 07/17/2025 [facility] Work Phone: Comment on above: Expected: 07/17/2024 (Approximate), Expires: 07/17/2025 Start: 07-14-2024 End: 07-14-2024 Patient encounter procedure [facility] Start: 06-15-2024 End: 06-15-2024 Patient encounter procedure 06/15/2024 3:30 PM EST Routine [facility] [address] [facility] [place] [phone] Madisyn Gaona PA [address] [place] [address] [facility] Start: 06-15-2024 End: 06-15-2025 CBC panel - Blood by Automated count CBC Lab Routine Diabetes mellitus screening Expected: 06/15/2024 (Approximate), Expires: 06/15/2025 [facility] Work Phone: Comment on above: Expected: 06/15/2024 (Approximate), Expires: 06/15/2025 Start: 06-15-2024 End: 06-15-2025 Measurement of glucose 1 hour after glucose challenge for glucose tolerance test Glucose tolerance, 1 hour Lab Routine Diabetes mellitus screening Expected: 06/15/2024 (Approximate), Expires: 06/15/2025 [facility] Comment on above: Expected: 06/15/2024 (Approximate), Expires: 06/15/2025 Start: 05-18-2024 End: 05-18-2024 Patient encounter procedure 05/18/2024 11:40 AM EDT Office Visit [facility] [address] [place] [phone] Scotty Dhillon, DO [address] [place] [address] [facility] Start: 05-18-2024 End: 05-18-2024 Professional / ancillary services management 05/18/2024 10:30 AM EDT Ancillary Procedure [facility] [address] [place] [phone] [facility] Start: 04-20-2024 End: 04-20-2025 Alpha fetoprotein, maternal Alpha fetoprotein, maternal Lab Routine Second trimester Expected: 04/20/2024 (Approximate), Expires: 04/20/2025 [facility] Work Phone: Comment on above: [...] Start: 04-02-2024 Influenza vaccination Influenza Vacc ine [facility] Start: 03-22-2024 End: 03-22-2024 Patient encounter procedure 03/22/2024 11:20 AM EDT Routine [facility] [address] [place] [address] Scotty Dhillon DO [address] [facility] [place] [address] Arrived [facility] Comment on above: Arrived Start: 2018 Screening for malign ant neoplasm of cervix Pap Smear [facility] Start: 2016 DTaP,Tdap and Td Vaccines (1 - Tdap) DTaP,Tdap and Td Vaccines (1 - Tdap) [facility] Start: 2015 Adult BMI Follow Up Plan Adult BMI Follow Up Plan [facility] Start: 2015 Adult BMI Screening Adult BMI Screen ing [facility] Start: 2009 Depression Screening Depression Scre ening [facility] Start: 2009 Tobacco Screening Tobacco Screening [facility] CBC W Auto Different ial panel - Blood CBC and differential Lab Routine Abnormal CBC Ordered: 03/22/2024 [facility] Work Phone: Comment on above: Ordered: 03/22/2024 Patient Education - Th e Second Month High Blood Pressure ED [facility] Work Phone: Patient referral [facility] Work Phone: Payers Date Payer Category Payer Medicaid [id number] 2024 Medicaid [id number] 2024 Self-pay 2023 Private Health Insurance [id number] 2023 Private Health Insurance [id number] 2022 Medicaid O [employer] [id number] 1997 Unknown [id number] 2.16.840.1.702479.3.579.2. 593 1997 Unknown [id number] 2.16.840.1.141288.3.579.2. 593 1997 Unknown [id number] 2.16.840.1.446864.3.579.2. 593 1997 Unknown [id number] 2.16.840.1.492793.3.579.2. 593 1997 Unknown [id number] 2.16.840.1.577056.3.579.2. 593 1997 Unknown [id number] 2.16.840.1.475238.3.579.2. 593 1997 Unknown [id number] 2.16.840.1.095860.3.579.2. 593 1997 Unknown [id number] 2.16.840.1.359434.3.579.2. 593 1997 Unknown [id number] 2.16.840.1.616377.3.579.2. 593 1997 Unknown [id number] 2.16.840.1.374172.3.579.2. 593 1997 Unknown [id number] 2.16.840.1.559196.3.579.2. 593 1997 Unknown [id number] 2.16.840.1.595092.3.579.2. 593 1997 Unknown [id number] 2.16.840.1.992487.3.579.2. 593 1997 Unknown [id number] 2.16.840.1.281105.3.579.2. 593 1997 Unknown [id number] 2.16.840.1.833024.3.579.2. 593 1997 Unknown [id number] 2.16.840.1.086695.3.579.2. 593 1997 Unknown [id number] 2.16.840.1.778398.3.579.2. 593 1997 Unknown [id number] 2.16.840.1.146620.3.579.2. 593 1997 Unknown [id number] 2.16.840.1.214667.3.579.2. 1286 1997 Unknown [id number] 2.16.840.1.461550.3.579.2. 1259 1997 Unknown [id number] 2.16.840.1.416978.3.579.2. 1259 1997 Unknown [id number] 2.16.840.1.423267.3.579.2. 9 1997 Unknown [id number] 2.16.840.1.098429.3.579.2. 1259 1997 Unknown [id number] 2.16.840.1.647101.3.579.2. 1259 1997 Unknown [id number] 2.16.840.1.737797.3.579.2. 9 1997 Unknown [id number] 2.16.840.1.066742.3.579.2. 9 1997 Unknown [id number] 2.16.840.1.269997.3.579.2. 1258 1997 Unknown [id number] 2.16.840.1.078667.3.579.2. 1258 1997 Unknown [id number] 2.16.840.1.019379.3.579.2. 1258 1997 Unknown [id number] 2.16.840.1.304795.3.579.2. 9 1997 Unknown [id number] 2.16.840.1.201084.3.579.2. 6 1997 Unknown [id number] 2.16.840.1.228631.3.579.2. 1286 1959 Unknown [id number] 1959 Unknown [id number] 1959 Unknown [id number] Unknown [id number] 2.16.840.1.099326.3.579.2. 531 Social History Date Type Detail Facility Start: 01-13-2024 [facility] Start: 01-31-2024 [facility] Start: 1995 Sex Assigned At Female F [facility] consumption unknown [facility] Start: 1997 Sex assigned at Not on file N [facility] Start: 08-23-2020 End: 06-21-2024 Gender identity Not on file [facility] Start: 10-07-2020 End: 07-14-2024 Tobacco smoking status AKIS Ex-smoker [facility] History of tobacco use Current smoker [facility] Start: 10-07-2020 End: 07-14-2024 Tobacco use and exposure Smokeless tobacco non-user [facility] Start: 06-21-2024 End: 08-15-2024 Alcoholic beverage intake Ex-drinker (finding) [facility] Start: 08-23-2020 End: 06-21-2024 History of Social function [facility] Childcare Unknown [facility] Start: 10-07-2020 End: 07-14-2024 Tobacco Comment quit 3 years ago [facility] Start: 08-23-2020 Sex Female (finding) [facility] History of tobacco use Cigarette Smoker P [facility] Medical Equipment Procedure Code Equipment Code Equipment Origin al Text Equipment Identifier Dates 1 strip by In Vi tro route Daily Use in the morning prior to breakfast, 1 hour after each meal for a total of 4times daily. [id number] Start: 07-17-2024 End: 08-16-2024 1 each by In Vit ro route Daily Use to check FSBS four times daily [id number] Start: 07-17-2024 End: 08-16-2024 Clinical Notes 02-05-2021 [...] return my call. 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 We elected to proceed. REASON FOR [...] outflow tracts on ultrasound BMI 40.0-44.9, adult ([facility]) Past Medical History: Diagnosis Date Anxiety Chronic [...] evening., Disp: , Rfl: miscellaneous medical supply [facility], by miscellaneous route once., Disp: , Rfl: [...] and the other consultants, we search on Superplayer and all the available care everywhere epic I did review all the imaging studies of the patient available on EMR, ordered by the primary care physician and the other real estate consultant HABITS: Patient activity no restrictions, diet [...] more likely to fail compared to insulin. terminal block assembler data on children whose mothers took oral [...] Chronic hypertension affecting 4. BMI 40.0-44.9, adult ([facility]) Denies signs and symptoms of preeclampsia and [...] of labor - if you would like M to start managing the patient diabetes please [...] patient is in complete care of her hospice rn. Patient does have ultrasound appointment scheduled with us. Thank you for allowing me to participate in Samantha Taylor . If there any questions please do not hesitate to contact us. Sincerely, Nubia Lundberg MD, FACOG (she/hers) Maternal- Medicine [address] [place] [address] documented in this encounter [facility] 08-14-2024 History of Present illness Narrative [...] nursing note reviewed. Exam conducted with a bottom ironer present. Vitals: Estimated body mass index is [...] documented in this encounter [facility] 07-31-2024 History of Present illness Narrative Reason for Appointment: Patient ID: Samantha Taylor is a 29 y.o. female who presents for Routine Visit Patient presents today for Return OB appointment. MEDICATIONS Current Outpatient Medications Medication Instructions Alcohol Swabs (Alcohol Prep Pad) 70 % pads 1 Pad, Topical, Daily, Use four times daily to check FSBS. Blood Glucose Monitoring Suppl ([employer] Glucometer) w/Device kit 1 kit, Does not [...] yes Have you been seen here at [facility] in a previous ? no Recent ER visits or hospitalizations? no Bring blood sugar log or meter with you today? (Please bring them with you for every visit at [facility]) no Flu vaccine (Jun-September)? no Any [...] outflow tracts on ultrasound BMI 40.0-44.9, adult ([facility]) Past Medical History: Diagnosis Date Anxiety Chronic [...] evening., Disp: , Rfl: miscellaneous medical supply [facility], by miscellaneous route once., Disp: , Rfl: [...] and the other consultants, we search on Superplayer and all the available care everywhere epic I did review all the imaging studies of the patient available on EMR, ordered by the primary care physician and the other real estate consultant HABITS: Patient activity no restrictions, diet [...] her 3 hour glucose tolerance test, refer [facility] for diabetes management.. 8. Patient came more than 1 hour late for her ultrasound appointment and therefore has been rescheduled at our [facility] site. DISPOSITION: At this point the patient is in complete care of her hospice rn. Patient does have ultrasound appointment scheduled with us. Thank you for allowing me to participate in Samantha Taylor . If there any questions please do not hesitate to contact us. Sincerely, ANICETO FOX MD documented in this encounter [address] 06-15-2024 History of Present illness Narrative Reason [...] nursing note reviewed. Exam conducted with a bottom ironer present. Vitals: Estimated body mass index is [...] of MSAFP orders to have drawn at [facility] in [place]. Documented by Angela Butt LPN on behalf [...] nursing note reviewed. Exam conducted with a bottom ironer present. Vitals: Estimated body mass index is [...] or undercooked meat, and stay away from [facility]. Patient has been consulted regarding any [...] OPERATION DATE: 02-06-21 ANESTHETIC:Spinal with Duramorph. CLINICAL MEDICAL ASSISTANT:ELVIA Prajapati PREOPERATIVE DIAGNOSIS: 1. Intrauterine at 37 [...] to the Recovery Room in stable condition. [facility] Signed and Approved by: DR SCOTTY DHILLON . 02/11/2021 11:15:00 [facility] 02-05-2021 Note DISCHARGE SUMMARY Discharge Date: 02-09-21 [...] Tylenol, any abdominal pain unrelieved with narcotics. [facility] Signed and Approved by: DR SCOTTY DHILLON . 02/25/2021 23:13:00 [facility] Evaluation note No assessment inform ation available [facility] Work Phone: Evaluation note Diagnosis 20 [...] hypertension affecting [facility] this encounter [facility]* Diagnosis Third trimester state, incidental 28 weeks gestation of Gestational diabetes mellitus (GDM) in third trimester, gestational diabetes method of control unspecified Hypertension, unspecified type ([facility]) Gestational diabetes mellitus (GDM), antepartum, gestational diabetes [...] unspecified Chronic hypertension affecting BMI 40.0-44.9, adult ([facility]) arrhythmia affecting , antepartum Abnormality in heart rate/rhythm, antepartum condition or complication Polyhydramnios affecting Separation of chorion and amnion membranes, antepartum [facility] in [facility]* Diagnosis Abnormal ultrasonic finding on screening of mother, antepartum- Primary documented in this encounter [facility] SystemInstructionsNot on filedocumented in this encounter [facility] SystemInstructionsNot on filedocumented in this encounter [facility]* Attachments The following attachments cannot be sent through Care Everywhere. * Preeclampsia (Angolan) * labor (Angolan) [facility] System[facility]ructionsNot on file documented in [facility] SystemInstructionsNot on file [facility] Summary Purpose Family History No [...] content) DATE CREATED AUTHOR 10/15/2021 [facility] DATE CREATED AUTHOR AUTHOR'S ORGANIZ ATION 02/19/2024 [facility] DATE CREATED AUTHOR AUTHOR'S ORGANIZ ATION 07/17/2024 [facility] DATE CREATED AUTHOR AUTHOR'S ORGANIZ ATION 08/18/2024 [facility] EPIC DATE CREATED AUTHOR AUTHOR'S ORGANIZ ATION 08/18/2024 [facility] DATE CREATED AUTHOR AUTHOR'S ORGANIZ ATION 08/18/2024 [facility] Care Teams (unrecognized sec tion and content) Team Status: Active Member Role Status Dates Jacques Mccarthy MD Primary Care Provider Active Team Status: Inactive Member Role Status Dates Jacques Mccarthy MD Primary Care Provider Active Start: January 31, 2024 End: January 31, 2024 Terry Dudley DO Emergency Provider Active St art: January 31, 2024 End: January 31, 2024 Drawer Maker Relationship Specialty Start Date End Date Jacques Mccarthy MD [address] [place] [address] PCP - General Family Medicine 02/08/24 Drawer Maker Relationship Specialty Start Date End Date Jacques Mccarthy MD [address] [place] [address] PCP - General Family Medicine 02/08/24 Drawer Maker Relationship Specialty Start Date End Date Jacques Mccarthy MD PCP - General Family Medicine 10/07/20 Drawer Maker Relationship Specialty Start Date End Date Jacques Mccarthy MD [address] [place] [address] PCP - General Family Medicine 02/08/24 Drawer Maker Relationship Specialty Start Date End Date Jacques Mccarthy MD [address] [place] [address] PCP - General Family Medicine 02/08/24 Drawer Maker Relationship Specialty Start Date End Date Jacques Mccarthy MD [address] [place] [address] PCP - General Family Medicine 02/08/24 Drawer Maker Relationship Specialty Start Date End Date Jacques Mccarthy MD PCP - General Family Medicine 10/07/20 Drawer Maker Relationship Specialty Start Date End Date Jacques Mccarthy MD [address] [place] [facility] [address] PCP - General Family Medicine 02/08/24 Drawer Maker Relationship Specialty Start Date End Date Jacques Mccarthy MD [address] [place] [facility] [address] PCP - General Family Medicine 02/08/24 Drawer Maker Relationship Specialty Start Date End Date Jacques Mccarthy MD [address] [place] [facility] [address] PCP - General Family Medicine 02/08/24 Drawer Maker Relationship Specialty Start Date End Date Jacques Mccarthy MD [address] [place] [facility] [address] PCP - General Family Medicine 02/08/24 Drawer Maker Relationship Specialty Start Date End Date Jacques Mccarthy MD [address] [place] [facility] [address] PCP - General Family Medicine 02/08/24 Drawer Maker Relationship Specialty Start Date End Date Jacques Mccarthy MD [address] [place] [facility] [address] PCP - General Family Medicine 02/08/24 Drawer Maker Relationship Specialty Start Date End Date Jacques Mccarthy MD [address] [place] [address] PCP - General Family Medicine 02/08/24 Drawer Maker Relationship Specialty Start Date End Date Jacques Mccarthy MD [address] [place] [address] PCP - General Family Medicine 02/08/24 Drawer Maker Relationship Specialty Start Date End Date Jacques Mccarthy MD PCP - General Family Medicine 10/07/20 Drawer Maker Relationship Specialty Start Date End Date Jacques Mccarthy MD PCP - General Family Medicine 10/07/20 Drawer Maker Relationship Specialty Start Date End Date Jacques Mccarthy MD PCP - General Family Medicine 10/07/20 Drawer Maker Relationship Specialty Start Date End Date Jacques Mccarthy MD [address] [place] [address] PCP - General Family Medicine 02/08/24 Goals [...] BE BASED ON THE PRIMARY CLINICAL RECORDS. [employer] [facility]. provides no warranty or guarantee of the accuracy or completeness of information in this document.
--- NOTE | 2024-08-24 17:09 | US_ITS ---
[address] [address] Patient Name: RADAMES BENJAMIN MRN: [id number] date: 1995 Sex: F Assigned Patient Location: US Current Patient Location: US Accession/Order Number: [id number] Exam Date: 08/24/2024 17:13 Report Date: 08/25/2024 06:26 At the request of: SCOTTY SULLIVAN Procedure: US OB growth EXAMINATION: US OB growth HISTORY: GESTATIONAL DIABETES MELLITUS O24.419 COMPARISON: Ultrasound OB growth 08/17/2024 FINDINGS: Heart Rate: 153 bpm Amniotic Fluid Volume: 28.1 cm; greater than 95th percentile Number: One Position: Cephalic BIOMETRY: BPD: 8.58 cm;; 34 weeks 4 days;; 66% HC: 31.39 cm; ; 35 weeks 1 day;; 44% AC: 31.82 cm;; ; 35 weeks 5 days; 92% FL: 6.56 cm;; 33 weeks 6 days;; 35% EFW: 2582 g;; 75% FL/AC: 20.62 FL/BPD: 76.44 HC/AC: 0.99 GESTATIONAL AGE: Age by EDC: 34 weeks 0 days SUSANNA by EDC: 10/05/2024 Age by US: 34 weeks 6 days SUSANNA by US: 09/29/2024 US/US OB growth IMPRESSION: 1. Single live intrauterine with growth detailed above. 2. Abdominal circumference is at 92nd percentile. 3. Polyhydramnios which is increased since prior study. Electronically authenticated by: MICHELLE LANE Date: 08/25/2024 06:26
--- NOTE | 2024-08-24 17:09 | US_ITS ---
[address] [address] Patient Name: RADAMES BENJAMIN MRN: [id number] date: 1995 Sex: F Assigned Patient Location: US Current Patient Location: US Accession/Order Number: [id number] Exam Date: 08/24/2024 17:13 Report Date: 08/25/2024 06:28 At the request of: SCOTTY SULLIVAN Procedure: US OB umbilical artery EXAMINATION: US OB umbilical artery HISTORY: GESTATIONAL DIABETES MELLITUS O24.419 COMPARISON: Ultrasound umbilical artery 08/17/2024 TECHNIQUE: Duplex Doppler evaluation of the umbilical arteries. FINDINGS: HEART RATE: 153 bpm UMBILICAL ARTERIES: 2 GESTATIONAL AGE: 34 weeks 0 days WAVEFORM: Normal upstroke. No notching. Forward flow in diastole. PEAK SYSTOLIC VELOCITY: 86 cm/s END DIASTOLIC VELOCITY: 33 cm/s SYST/DIAST RATIO (S:D): 2.6 RESISTIVE INDEX: 0.6 US/US OB umbilical artery IMPRESSION: 1. Class 0 = Normal umbilical artery blood velocity Electronically authenticated by: MICHELLE LANE Date: 08/25/2024 06:28
--- NOTE | 2024-08-24 17:09 | US_ITS ---
[address] [address] Patient Name: RADAMES BENJAMIN MRN: [id number] date: 1995 Sex: F Assigned Patient Location: US Current Patient Location: Accession/Order Number: [id number] Exam Date: 08/24/2024 17:13 Report Date: 08/25/2024 06:22 At the request of: SCOTTY SULLIVAN Procedure: US OB BPP w non-stress EXAMINATION: US OB BPP w non-stress HISTORY:GESTATIONAL DIABETES MELLITUS O24.419 COMPARISON: Ultrasound OB biophysical 08/21/2024 TECHNIQUE: Ultrasound biophysical profile was performed in the radiology department. BREATHING MOVEMENTS: 2 GROSS BODY MOVEMENTS: 2 TONE: 2 QUALITATIVE AMNIOTIC FLUID VOLUME: 2 PRESENTATION: Cephalic HEART RATE: 153 bpm AMNIOTIC FLUID VOLUME: 28.1 cm; greater than 95th percentile. GESTATIONAL AGE: 34 weeks 0 days US/US OB BPP w non-stress IMPRESSION: 1. Total biophysical profile score: 8 2. Polyhydramnios; increased since prior study. Electronically authenticated by: MICHELLE LANE Date: 08/25/2024 06:22
[2024-08-24 18:24] VITALS: BP 141/83; PULSE 97
== END 2024-08-24 18:30 | disposition home or self-care (01) ==
LOC: US 15:39 → FBC 17:06
PROVIDERS: PCP Family Medicine; Visit Provider Obstetrics & Gynecology
DX: O24.419 Gestational diabetes mellitus in pregnancy, unspecified control (principal); Z3A.34 34 weeks gestation of pregnancy; O40.3XX0 Polyhydramnios, third trimester, not applicable or unspecified
CPT/HCPCS: 76816; 76818; 76820

== ENCOUNTER 2024-08-25 14:05 | Outpatient (OUT) | payer MEDICAID, OTHER, SELFPAY ==
--- NOTE | 2024-08-25 14:16 | CA_ITS ---
Patient Name: RADAMES BENJAMIN MR#: [id number] : 1995 Exam Date: 08/25/2024 Ordering Doctor: DR Zhen Dhillon . ECHOCARDIOGRAM REPORT PROCEDURE: CA ECHO DOPPLER COMPLETE INDICATIONS: Hypertension in COMPARISON: None. DESCRIPTION: COMPLETE ECHOCARDIOGRAM Real-time transthoracic echocardiography with 2D, M-mode, spectral and color flow Doppler performed. QUALITY: Technical quality was good. LEFT VENTRICLE: Normal chamber size. Mild concentric left ventricular hypertrophy. Global left ventricular systolic function is normal. LV EF: Calculated left ventricular ejection fraction is 68%. DIASTOLIC: Diastolic function is indeterminate. ATRIAL SEPTUM: LEFT ATRIUM: Normal chamber size. RIGHT ATRIUM: Normal chamber size. RIGHT VENTRICLE: Normal chamber size. Normal right ventricular systolic function. TRICUSPID VALVE: Normal mobility and thickness. No stenosis with trivial regurgitation. Mild pulmonary hypertension. RVSP 37 mmHg MITRAL VALVE: Normal mobility and thickness. No evidence of mitral valve stenosis. There is no mitral annular calcification. No mitral regurgitation. AORTIC VALVE: Normal trileaflet appearance. No visible sclerosis. Normal leaflet mobility. No evidence of aortic valve stenosis. No aortic regurgitation. AORTIC ROOT: Normal diameter and appearance. PULMONIC VALVE: Normal thickness and mobility. No stenosis. Trivial regurgitation. PERICARDIUM: Trivial pericardial effusion. IVC: Collapses with inspirations. Normal size. PLEURA: CONCLUSION: 1. The left ventricle exhibits mild concentric hypertrophy with normal systolic function. Calculated LVEF is 68%. 2. Normal right ventricular size and systolic function. 3. No significant valvular dysfunction. 4. Mildly elevated right-sided pressures. 5. Trivial pericardial effusion. Adult Echocardiography Procedure Report Left Ventricle LVEDD (3.7 - 5.6 cm): 4.85 cm LVESD (2.2 - 4.0 cm): 3.33 cm LVIVS thickness (0.6 - 1.2 cm): 1.04 cm LVPW thickness (0.5 - 1.0 cm): 1.15 cm e': 0.09 m/s E - e': 8.24 LVOT Max Gradient: 6.38 mm[Hg] LVOT Area (cm2): 1.26 m/s Peak Velocity (LVOT): 1.26 m/s Mean Velocity (LVOT): 0.78 m/s LVOT Diameter 1.86 cm Left Ventricular Ejection Fraction: 68.19 % Left Atrium LA Volume Index (2D A2C): 30.30 ml/m2 Left Atrium Systolic Dimension: 3.73 cm Mitral Valve MV E to A Ratio: 1.39, 1.38 Mitral Valve A-Wave Peak Velocity: 0.56 m/s Mitral Valve E-Wave Peak Velocity: 0.78 m/s Right Ventricle RV Internal Diastolic Dimension: 3.23 cm Aorta AO Root Diam: 2.67 cm Ascending Ao Diam: 2.65 cm Aortic Valve AoV Area (Peak Buster): 2.04 cm2, 1.99 cm2 AoV Area (VTI): 1.87 cm2, 1.85 cm2 Peak Velocity(Antegrade Flow): 1.72 m/s, 1.64 m/s Peak Gradient(Antegrade Flow): 11.84 mm[Hg], 10.75 mm[Hg] Mean Velocity(Antegrade Flow): 1.10 m/s, 1.07 m/s Mean Gradient(Antegrade Flow): 5.77 mm[Hg], 5.46 mm[Hg] Velocity Time Integral: 34.61 cm, 33.99 cm Tricuspid Valve Peak Velocity (Regurgitant Flow): 2.34 m/s, 2.72 m/s, 2.63 m/s, 2.91 m/s Pulmonic Valve Mean Gradient: 4.47 mm[Hg], 4.52 mm[Hg], 5.19 mm[Hg], 5.13 mm[Hg] Mean Velocity: 0.99 m/s, 1.00 m/s, 1.07 m/s, 1.07 m/s Peak Velocity: 1.41 m/s Peak Gradient: 7.33 mm[Hg], 7.33 mm[Hg], 8.93 mm[Hg], 8.42 mm[Hg] Right Atrium Right Atrium Systolic Pressure: 46.98 ml, 46.98 ml Dictated by: Juan Bonilla M.D. on 08/28/2024 at 10:23 Approved by: Juan Bonilla M.D. on 08/28/2024 at 10:29
--- OUTSIDE RECORDS SUMMARY | 2024-08-25 14:19 | XMS_ITS | CCD ---
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 Name Role Phone JACQUIE, DR FAJARDO Consulting [...] Admitting Unavailable JACQUIE, DR FAJARDO Attending Unavailable CIRO, DR HILL [...] Unavailable DAIANAY, DR HANNA Primary Care Unavailable GARRET, DR [...] Attending Unavailable JACQUIE, DR FAJARDO Admitting Unavailable HOY, DR HANNA Primary Care Unavailable HOY, DR HANNA Primary Care Unavailable JACQUIE, DR FAJARDO Attending Unavailable JACQUIE, DR FAJARDO Admitting Unavailable JACQUIE, DR FAJARDO Attending Unavailable JACQUIE, DR FAJARDO Admitting Unavailable HOY, DR HANNA [facility] Care Unavailable JACQUIE, DR FAJARDO Consulting Unavailable JACQUIE, DR FAJARDO Attending Unavailable DAIANAY, DR HANNA [facility] Care Unavailable JACQUIE, DR FAJARDO Admitting Unavailable JACQUIE, DR FAJARDO Admitting Unavailable GARRET, DR IRINEO [place] Consulting Unavailable MIGUEL ÁNGEL, DR HANNA [facility] Care Unavailable JACQUIE, DR FAJARDO Attending Unavailable JACQUIE, DR FAJARDO Consulting Unavailable JACQUIE, DR FAJARDO Attending Unavailable MIGUEL ÁNGEL, DR HANNA [facility] Care Unavailable JACQUIE, DR FAJARDO Admitting Unavailable MD Jacques Mccarthy Primary Care Provider [phone] DO Terry Dudley Emergency Provider Terry Dudley Admitting Unavailable Terry Dudley Attending Unavailable Jacques Mccarthy Primary Care Unavailable Jacuqes Mccarthy MD Primary Care Provider [phone] Jacques Mccarthy MD Primary Care Provider [phone] ANICETO FOX Attending Unavailable SCOTTY DHILLON Referring Unavailable JACQUES MCCARTHY Primary Care Unavailable JACQUES MCCARTHY Primary Care Unavailable SCOTTY DHILLON Referring Unavailable NUBIA LUNDBERG Attending Unavailable JACQUIE, SCOTTY R Referring Unavailable JACQUES MCCARTHY Primary Care Unavailable JACQUIE, SCOTTY Attending Unavailable JACQUIE, SCOTTY Attending Unavailable JIMENEZ, MADISYN Attending Unavailable JACQUIE, SCOTTY Attending Unavailable JIMENEZ, MADISYN Attending Unavailable JACQUIE, SCOTTY Attending Unavailable JIMENEZ, MADISYN Attending Unavailable JACQUIE, SCOTTY Attending Unavailable JIMENEZ, MADISYN Attending Unavailable JACQUIE, SCOTTY Attending Unavailable Medications Current Medications Medication Drug [...] (3 sources) Dihydropyridine Calcium Channel All Start: 01-04-2 025 take 1 capsule by mouth every [...] UA Negative Negative - 4(70) +++ mg/dL [facility] Blood, UA Positive Negative - 50 Hardeep/mcL [facility] Comment on above: trace-intact Clarity, UA Clear [facility] Color, UA Yellow [facility] Glucose, UA Negative Negative - 1999(110) ++++ mg/dL [facility] Interpretation and review of laboratory results Abnormal [facility] Ketones, UA Positive Negative - 160(16) ++++ mg/dL [facility] Comment on above: 40 Leukocytes, UA Negative Negative - 500+++ Renee/mcL [facility] Nitrite, UA Negative Negative - Positive [facility] pH, UA 6 5 - 9 [facility] Protein, UA Trace Negative - 1999(20) ++++ mg/dL [facility] Spec Grav, UA 1.02 1 - 1.03 [facility] Urobilinogen, UA 0.2 0.2 - 12 mg/dL [facility] ALL CBC WITH AUTO DIFFon BASOPHILS ABSOLUTE AUTO 0.1 [facility] Basophils/100 WBC (Bld) 0.3 % 0.2 - 2.0 % [facility] Eosinophils/100 WBC (Bld) 0.6 % Low 0.9 - 7.0 % [facility] Erythrocyte distribution width (RBC) [Ratio] 12.2 % 11.0 - 15.0 % [facility] Hematocrit (Bld) [Volume fraction] 36.7 % 36.0 - 48.0 % [facility] Hemoglobin (Bld) [Mass/Vol] 12.5 g/dL 12.0 - 16.0 g/dL [facility] IMMATURE GRANULOCYTES ABS AUTO 0.33 High [facility] Immature granulocytes/100 WBC (Bld) 2 % High 0.0 - 0.5 % [facility] Interpretation and review of laboratory results Abnormal [facility] LYMPHOCYTES ABSOLUTE AUTO 1.6 [facility] Lymphocytes/100 WBC (Bld) 9.9 % Low 20.5 - 60.0 % [facility] MCH (RBC) [Entitic mass] 29.7 pg 26.7 - 34.0 pg [facility] MCHC (RBC) [Mass/Vol] 34.1 g/dL 29.9 - 35.2 g/dL [facility] MCV (RBC) [Entitic vol] 87.2 fL 81.0 - 99.0 fL [facility] MONOCYTES ABSOLUTE AUTO 1 High [facility] Monocytes/100 WBC (Bld) 6.3 % 1.7 - 12.0 % [facility] NEUTROPHILS ABSOLUTE AUTO 13.2 High [facility] Neutrophils/100 WBC (Bld) 80.9 % High 43.0 - 75.0 % [facility] Platelet mean volume (Bld) [Entitic vol] 10.5 fL 9.5 - 13.5 fL [facility] EO # 0.1 [facility] PLT 247 [facility] RBC 4.21 [facility] WBC 16.3 High [facility] ALL CBC WITH AUTO DIFFon BASOPHILS ABSOLUTE AUTO 0.1 [facility] Basophils/100 WBC (Bld) 0.3 % 0.2 - 2.0 % [facility] Eosinophils/100 WBC (Bld) 0.2 % Low 0.9 - 7.0 % [facility] Erythrocyte distribution width (RBC) [Ratio] 12.1 % 11.0 - 15.0 % [facility] Hematocrit (Bld) [Volume fraction] 35.3 % Low 36.0 - 48.0 % [facility] Hemoglobin (Bld) [Mass/Vol] 12.1 g/dL 12.0 - 16.0 g/dL [facility] IMMATURE GRANULOCYTES ABS AUTO 0.31 High [facility] Immature granulocytes/100 WBC (Bld) 1.7 % High 0.0 - 0.5 % [facility] Interpretation and review of laboratory results Abnormal [facility] LYMPHOCYTES ABSOLUTE AUTO 1.4 [facility] Lymphocytes/100 WBC (Bld) 7.9 % Low 20.5 - 60.0 % [facility] MCH (RBC) [Entitic mass] 29.8 pg 26.7 - 34.0 pg [facility] MCHC (RBC) [Mass/Vol] 34.3 g/dL 29.9 - 35.2 g/dL [facility] MCV (RBC) [Entitic vol] 86.9 fL 81.0 - 99.0 fL [facility] MONOCYTES ABSOLUTE AUTO 1.3 High [facility] Monocytes/100 WBC (Bld) 7.1 % 1.7 - 12.0 % [facility] NEUTROPHILS ABSOLUTE AUTO 15.1 High [facility] Neutrophils/100 WBC (Bld) 82.8 % High 43.0 - 75.0 % [facility] Platelet mean volume (Bld) [Entitic vol] 10.5 fL 9.5 - 13.5 fL [facility] EO # 0 [facility] PLT 217 [facility] RBC 4.06 Low [facility] WBC 18.2 High [facility] UA (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/CATCH) 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.on 08-04-2024 BILIRUBIN URINE Negative NEGATIVE [facility] BLOOD URINE Negative NEGATIVE [facility] Clarity (U) CLEAR CLEAR [facility] Color (U) YELLOW YELLOW [facility] GLUCOSE URINE UA 500 mg/dL Abnormal NEGATIVE [facility] Interpretation and review of laboratory results Abnormal [facility] Ketones Ql (U) Negative NEGATIVE mg/dL [facility] Leukocyte esterase Test strip Ql (U) Negative NEGATIVE [facility] NITRITE URINE Negative NEGATIVE [facility] pH (U) 6.0 [pH] 5.0 - 9.0 [facility] PROTEIN URINE Negative NEG/TRACE mg/dL [facility] SPECIFIC GRAVITY URINE 1.025 1.005 - 1.025 [facility] URINE MICROSCOPIC INDICATED NO [facility] UROBILINOGEN URINE 0.2 EU/dL 0.2 - 1.0 EU/dL [facility] Urinalysis macro (dipstick) panel (U)on 07-31-2024 Bilirubin, UA Negative Negative - 4(70) +++ mg/dL [facility] Blood, UA Positive Negative - 50 Hardeep/mcL [facility] Comment on above: small Clarity, UA Clear [facility] Color, UA Yellow [facility] Glucose, UA Positive Negative - 1999(110) ++++ mg/dL [facility] Comment on above: 250 Interpretation and review of laboratory results Abnormal [facility] Ketones, UA Negative Negative - 160(16) ++++ mg/dL [facility] Leukocytes, UA Negative Negative - 500+++ Renee/mcL [facility] Nitrite, UA Negative Negative - Positive [facility] pH, UA 6 5 - 9 [facility] Protein, UA Trace Negative - 1999(20) ++++ mg/dL [facility] Spec Grav, UA 1.02 1 - 1.03 [facility] Urobilinogen, UA 0.2 0.2 - 12 mg/dL [facility] Urinalysis macro (dipstick) panel (U)on 07-17-2024 Bilirubin, UA Negative Negative - 4(70) +++ mg/dL [facility] Blood, UA Negative Negative - 50 Hardeep/mcL [facility] Clarity, UA Clear [facility] Color, UA Yellow [facility] Glucose, UA Positive Negative - 1999(110) ++++ mg/dL [facility] Comment on above: 500 Interpretation and review of laboratory results Abnormal [facility] Ketones, UA Positive Negative - 160(16) ++++ mg/dL [facility] Comment on above: TRACE Leukocytes, UA Negative Negative - 500+++ Renee/mcL [facility] Nitrite, UA Negative Negative - Positive [facility] pH, UA 5.5 5 - 9 [facility] Protein, UA Negative Negative - 1999(20) ++++ mg/dL [facility] Spec Grav, UA 1.02 1 - 1.03 [facility] Urobilinogen, UA 0.2 0.2 - 12 mg/dL [facility] Glucose random or fasting- P OCTon 07-14-2024 External Glucose Fasting Or Random (Fbs) 169 [facility] ALL CBC WITH AUTO DIFFon BASOPHILS ABSOLUTE AUTO 0.1 [facility] Basophils/100 WBC (Bld) 0.3 % 0.2 - 2.0 % [facility] Eosinophils/100 WBC (Bld) 0.3 % Low 0.9 - 7.0 % [facility] Erythrocyte distribution width (RBC) [Ratio] 12.1 % 11.0 - 15.0 % [facility] Hematocrit (Bld) [Volume fraction] 37.3 % 36.0 - 48.0 % [facility] Hemoglobin (Bld) [Mass/Vol] 12.7 g/dL 12.0 - 16.0 g/dL [facility] IMMATURE GRANULOCYTES ABS AUTO 0.32 High [facility] Immature granulocytes/100 WBC (Bld) 1.8 % High 0.0 - 0.5 % [facility] Interpretation and review of laboratory results Abnormal [facility] LYMPHOCYTES ABSOLUTE AUTO 1.5 [facility] Lymphocytes/100 WBC (Bld) 8.3 % Low 20.5 - 60.0 % [facility] MCH (RBC) [Entitic mass] 30.3 pg 26.7 - 34.0 pg [facility] MCHC (RBC) [Mass/Vol] 34 g/dL 29.9 - 35.2 g/dL [facility] MCV (RBC) [Entitic vol] 89 fL 81.0 - 99.0 fL [facility] MONOCYTES ABSOLUTE AUTO 0.9 High [facility] Monocytes/100 WBC (Bld) 5.2 % 1.7 - 12.0 % [facility] NEUTROPHILS ABSOLUTE AUTO 15 High [facility] Neutrophils/100 WBC (Bld) 84.1 % High 43.0 - 75.0 % [facility] Platelet mean volume (Bld) [Entitic vol] 10.4 fL 9.5 - 13.5 fL [facility] EO # 0.1 [facility] PLT 255 [facility] RBC 4.19 Low [facility] WBC 17.8 High [facility] Urinalysis macro (dipstick) panel (U)on 06-15-2024 Bilirubin, UA Negative Negative - 4(70) +++ mg/dL [facility] Blood, UA Negative Negative - 50 Hardeep/mcL [facility] Clarity, UA Clear [facility] Color, UA Yellow [facility] Glucose, UA Positive Negative - 2000(110) ++++ mg/dL [facility] Interpretation and review of laboratory results Abnormal [facility] Ketones, UA Negative Negative - 160(16) ++++ mg/dL [facility] Leukocytes, UA Positive Negative - 500+++ Renee/mcL [facility] Nitrite, UA Negative Negative - Positive [facility] pH, UA 5.5 5 - 9 [facility] Protein, UA Negative Negative - 1999(20) ++++ mg/dL [facility] Spec Grav, UA 1.02 1 - 1.03 [facility] Urobilinogen, UA 1.0 0.2 - 12 mg/dL [facility] Urinalysis macro (dipstick) panel (U)on 05-18-2024 Bilirubin, UA Negative Negative - 4(70) +++ mg/dL [facility] Blood, UA Negative Negative - 50 Hardeep/mcL [facility] Clarity, UA Clear [facility] Color, UA Yellow [facility] Glucose, UA Negative Negative - 1999(110) ++++ mg/dL [facility] Interpretation and review of laboratory results Normal [facility] Ketones, UA Negative Negative - 160(16) ++++ mg/dL [facility] Leukocytes, UA Negative Negative - 500+++ Renee/mcL [facility] Nitrite, UA Negative Negative - Positive [facility] pH, UA 7 5 - 9 [facility] Protein, UA Negative Negative - 1999(20) ++++ mg/dL [facility] Spec Grav, UA 1.025 1 - 1.03 [facility] Urobilinogen, UA 0.2 0.2 - 12 mg/dL [facility] Urinalysis macro (dipstick) panel (U)on 04-20-2024 Bilirubin, UA Positive Negative - 4(70) +++ mg/dL [facility] Comment on above: small Blood, UA Negative Negative - 50 Hardeep/mcL [facility] Clarity, UA Clear [facility] Color, UA Yellow [facility] Glucose, UA Negative Negative - 1999(110) ++++ mg/dL [facility] Interpretation and review of laboratory results Abnormal [facility] Ketones, UA Positive Negative - 160(16) ++++ mg/dL [facility] Comment on above: trace Leukocytes, UA Negative Negative - 500+++ Renee/mcL [facility] Nitrite, UA Negative Negative - Positive [facility] pH, UA 6.5 5 - 9 [facility] Protein, UA Trace Negative - 2000(20) ++++ mg/dL [facility] Spec Grav, UA 1.030 1 - 1.03 [facility] Urobilinogen, UA 1.0 0.2 - 12 mg/dL [facility] Activated partial thrombopla stin time (aPTT) in platelet poor plasma by coagulation aOrdered By: Terry Dudley on 01-31-2024 aPTT Coag (PPP) [Time] 26.1 s 25.1-36.5 [facility] Comment on above: A hematocrit value g reater than 55% may lead to inaccurate results in coagulation testing. Patients having hematocrit values >55% require a special collection tube for coagulation studies. Please contact the laboratory at [phone] for redraw instructions. Alanine aminotransferase [En zymatic activity/volume] in Serum or PlasmaOrdered By: Terry Dudley on 01-31-2024 ALT [Catalytic activity/Vol] 22 U/L Normal 7-52 [facility] Comment on above: Performed By: #### H S TROP, PTT, CMP, DDIMER, BNP, CK, PT, CBC #### [facility] [address] [id number] [place] Albumin [Mass/volume] in Ser um or Plasma by Bromocresol green (BCG) dye binding methoOrdered By: Terry Dudley on 01-31-2024 Albumin BCG dye [Mass/Vol] 4.7 g/dL 3.5-5.7 [facility] Alkaline phosphatase [Enzyma tic activity/volume] in Serum or PlasmaOrdered By: Terry Dudley on 01-31-2024 ALP [Catalytic activity/Vol] 67 U/L Normal 34-104 [facility] Comment on above: Performed By: #### H S TROP, PTT, CMP, DDIMER, BNP, CK, PT, CBC #### [facility] [address] [id number] [place] Aspartate aminotransferase [ Enzymatic activity/volume] in Serum or PlasmaOrdered By: Terry Dudley on 01-31-2024 AST [Catalytic activity/Vol] 17 U/L Normal 13-39 [facility] Comment on above: Performed By: #### H S TROP, PTT, CMP, DDIMER, BNP, CK, PT, CBC #### [address] Automated basophil %Ordered By: Terry Dudley on 01-31-2024 Basophils/100 WBC (Bld) 0.6 % Normal . [facility] Comment on above: Performed By: #### H S TROP, PTT, CMP, DDIMER, BNP, CK, PT, CBC #### [address] Automated basophil countOrde red By: Terry Dudley on 01-31-2024 Basophils (Bld) [#/Vol] 0.1 10*3/uL Normal 0.0-0.2 [facility] Comment on above: Result Comment: PERF ORMED BY: [place] [address] PATHOLOGIST COTTON WEIGHER CARLOS HITCHCOCK M.D. Performed By: #### H S TROP, PTT, CMP, DDIMER, BNP, CK, PT, CBC #### [address] Automated blood monocyte cou ntOrdered By: Terry Dudley on 01-31-2024 Monocytes (Bld) [#/Vol] 1.3 10*3/uL High 0.0-0.8 [facility] Comment on above: Performed By: #### H S TROP, PTT, CMP, DDIMER, BNP, CK, PT, CBC #### [address] Automated eosinophil %Ordere d By: Terry Dudley on 01-31-2024 Eosinophils/100 WBC (Bld) 0.3 % Normal . [facility] Comment on above: Performed By: #### H S TROP, PTT, CMP, DDIMER, BNP, CK, PT, CBC #### [address] Automated eosinophil countOr dered By: Terry Dudley on 01-31-2024 Eosinophils (Bld) [#/Vol] 0.1 10*3/uL Normal 0.0-0.45 [facility] Comment on above: Performed By: #### H S TROP, PTT, CMP, DDIMER, BNP, CK, PT, CBC #### [address] Automated monocyte %Ordered By: Terry Dudley on 01-31-2024 Monocytes/100 WBC (Bld) 7.5 % Normal . [facility] Comment on above: Performed By: #### H S TROP, PTT, CMP, DDIMER, BNP, CK, PT, CBC #### [address] Automated neutrophil %Ordere d By: Terry Dudley on 01-31-2024 Neutrophils/100 WBC (Bld) 79.8 % Normal . [facility] Comment on above: Performed By: #### H S TROP, PTT, CMP, DDIMER, BNP, CK, PT, CBC #### [address] BNP ser/plasOrdered By: Delgado Dudley on 01-31-2024 Natriuretic peptide B (Bld) [Mass/Vol] 30.0 pg/mL Normal 5-100 [facility] Comment on above: Result Comment: PERF ORMED BY: [place] [address] PATHOLOGIST COTTON WEIGHER CARLOS HITCHCOCK M.D. Performed By: #### H S TROP, PTT, CMP, DDIMER, BNP, CK, PT, CBC #### [address] Bilirubin Test strip Ql (U)O rdered By: Terry Dudley on 01-31-2024 Bilirubin Ql (U) Negative Negative [facility] Bilirubin.total [Mass/volume ] in Serum or PlasmaOrdered By: eTrry Dudley on 01-31-2024 Bilirubin [Mass/Vol] 0.5 mg/dL Normal 0.3-1.0 [facility] Comment on above: Performed By: #### H S TROP, PTT, CMP, DDIMER, BNP, CK, PT, CBC #### [facility] [address] Calcium [Mass/volume] in Ser um or PlasmaOrdered By: Terry Dudley on 01-31-2024 Calcium [Mass/Vol] 9.6 mg/dL Normal 8.6-10.3 [facility] Comment on above: Performed By: #### H S TROP, PTT, CMP, DDIMER, BNP, CK, PT, CBC #### [address] Carbon dioxide, total [Moles /volume] in Serum or PlasmaOrdered By: Terry Dudley on 01-31-2024 CO2 [Moles/Vol] 30.1 mmol/L Normal 21.0-31.0 [facility] Comment on above: Performed By: #### H S TROP, PTT, CMP, DDIMER, BNP, CK, PT, CBC #### [address] Chloride [Moles/volume] in S marty or PlasmaOrdered By: Terry Dudley on 01-31-2024 Chloride [Moles/Vol] 101 mmol/L Normal 98-107 [facility] Comment on above: Performed By: #### H S TROP, PTT, CMP, DDIMER, BNP, CK, PT, CBC #### [address] Color of Urine by AutoOrdere d By: Terry Dudley on 01-31-2024 Color (U) Colorless Normal Yellow [facility] Comment on above: Order Comment: Name Collection Type:: Clean-Voided Midstream Performed By: #### U A, UHCG #### [address] Complete Blood Count Auto Di ffon 01-31-2024 Mean Corpuscular HGB Conc 34.6 g/dL Normal 32.0-35.0 [facility] Comment on above: Performed By: #### H S TROP, PTT, CMP, DDIMER, BNP, CK, PT, CBC #### [place] [address] [place] Monocytes/100 WBC (Bld) 14.85 % Normal 0.00-20.00 [facility] Comment on above: Performed By: #### H S TROP, PTT, CMP, DDIMER, BNP, CK, PT, CBC #### [address] NRBC% 0.0 /100{WBC} Normal 0-0.5 [facility] Comment on above: Performed By: #### H S TROP, PTT, CMP, DDIMER, BNP, CK, PT, CBC #### [address] Comprehensive Metabolic Pane urszula 01-31-2024 Albumin [Mass/Vol] 4.7 g/dL Normal 3.5-5.7 [facility] Comment on above: Performed By: #### H S TROP, PTT, CMP, DDIMER, BNP, CK, PT, CBC #### [address] Creatinine Clr Calc Pharmacy 119.17 Normal [facility] Comment on above: Result Comment: PERF ORMED BY: [place] [address] PATHOLOGIST COTTON WEIGHER CARLOS HITCHCOCK M.D. Performed By: #### H S TROP, PTT, CMP, DDIMER, BNP, CK, PT, CBC #### [address] GFR/1.73 sq M.predicted MDRD (S/P/Bld) [Vol rate/Area] mL/min/{1.73_m2} Normal [facility] Comment on above: Performed By: #### H S TROP, PTT, CMP, DDIMER, BNP, CK, PT, CBC #### [address] Creatine kinase [Enzymatic a ctivity/volume] in Serum or PlasmaOrdered By: Terry Dudley on 01-31-2024 CK [Catalytic activity/Vol] 76 U/L Normal 30-223 [facility] Comment on above: Performed By: #### H S TROP, PTT, CMP, DDIMER, BNP, CK, PT, CBC #### [address] [id number] [facility] Creatinine [Mass/volume] in Serum or PlasmaOrdered By: Terry Dudley on 01-31-2024 Creatinine [Mass/Vol] 0.80 mg/dL Normal 0.60-1.20 [facility] Comment on above: Performed By: #### H S TROP, PTT, CMP, DDIMER, BNP, CK, PT, CBC #### [address] [id number] [facility] D-Dimer High Sensitivityon 0 01-31-2024 D-Dimer High Sensitivity < 200 Normal 0-243 [facility] Comment on above: Result Comment: [...] coagulation studies. Please contact the laboratory at [phone] for redraw instructions. PERFORMED BY: [place] [address] PATHOLOGIST COTTON WEIGHER CARLOS HITCHCOCK M.D. Performed By: #### H S TROP, PTT, CMP, DDIMER, BNP, CK, PT, CBC #### [address] [id number] [facility] ECG 12 lead ECGon 01-31-2024 ECG 12 lead ECG [facility] [place] [address] [place] [id number] Electrocardiograph Report Signed Patient: Samantha Benjamin MR#: [id number] : 1995 Acct:[id number] Age/Sex: 28 / F ADM Date: 01/31/24 Loc: ER Room: Type: [facility] ER Attending Dr: Ordering Provider: Terry [...] Terry Dudley DO 1921 Normal [facility] Erythrocyte distribution wid th [Ratio] by Automated countOrdered By: Terry Dudley on 01-31-2024 Erythrocyte distribution width (RBC) [Ratio] 12.4 % Normal 11.9-15.3 [facility] Comment on above: Performed By: #### H S TROP, PTT, CMP, DDIMER, BNP, CK, PT, CBC #### [facility] [address] [place] [address] [place] Erythrocytes [#/volume] in B lood by Automated countOrdered By: Terry Dudley on 01-31-2024 RBC (Bld) [#/Vol] 4.93 10*6/uL Normal 3.60-5.00 [facility] Comment on above: Performed By: #### H S TROP, PTT, CMP, DDIMER, BNP, CK, PT, CBC #### [facility] [address] Fibrin D-dimer [Presence] in Platelet poor plasma by Latex agglutinationOrdered By: Terry Dudley on 01-31-2024 Fibrin D-dimer LA Ql (PPP) < 200 ng/mL 0-243 [facility] Comment on above: The reference range [...] coagulation studies. Please contact the laboratory at [phone] for redraw instructions. Glucose [Mass/volume] in Ser um or PlasmaOrdered By: Terry Dudley on 01-31-2024 Glucose [Mass/Vol] 91 mg/dL Normal 70-100 [facility] Comment on above: ADA recommended refe rence rangeRandom Glucose Reference Range is dependent on time and content of last meal. Glucose of more than 200 mg/dL in a nonstressed, ambulatory subject supports the diagnosis of Diabetes Mellitus. Result Comment: [place] om Glucose Reference Range is dependent on time and content of last meal. Glucose of more than 200 mg/dL in a nonstressed, ambulatory subject supports the diagnosis of Diabetes Mellitus. ADA recommended reference range Performed By: #### H S TROP, PTT, CMP, DDIMER, BNP, CK, PT, CBC #### [address] Glucose [Mass/volume] in Uri ne by Test stripOrdered By: Terry Dudley on 01-31-2024 Glucose Test strip (U) [Mass/Vol] Normal mg/dL Normal [facility] HCG ( test) IA.rapi d Ql (U)Ordered By: Terry Dudley on 01-31-2024 HCG ( test) Ql (U) Positive High [facility] HCG,Urineon 01-31-2024 Beta HCG ( test) Ql (U) Positive High [facility] Comment on above: Order Comment: Name Collection Type:: Clean-Voided Midstream Result Comment: PERF ORMED BY: [facility] [address] [place] [address] PATHOLOGIST COTTON WEIGHER CARLOS HITCHCOCK M.D. Performed By: #### H S TROP, PTT, CMP, DDIMER, BNP, CK, PT, CBC #### [facility] [address] Hematocrit [Volume Fraction] of Blood by Automated countOrdered By: Terry Dudley on 01-31-2024 Hematocrit (Bld) [Volume fraction] 45.1 % Normal 34.0-46.4 [facility] Comment on above: Performed By: #### H S TROP, PTT, CMP, DDIMER, BNP, CK, PT, CBC #### [facility] [address] Hemoglobin Test strip Ql (U) Ordered By: Terry Dudley on 01-31-2024 Hemoglobin Ql (U) Negative Negative [facility] Hemoglobin [Mass/volume] in BloodOrdered By: Terry Dudley on 01-31-2024 Hemoglobin (Bld) [Mass/Vol] 15.6 g/dL High 11.8-15.4 [facility] Comment on above: Performed By: #### H S TROP, PTT, CMP, DDIMER, BNP, CK, PT, CBC #### [facility] [address] INR in Platelet poor plasma by Coagulation assayOrdered By: Terry Dudley on 01-31-2024 INR Coag (PPP) [Relative time] 1.2 {INR} Normal [facility] Comment on above: INR Therapeutic Rang [...] CMP, DDIMER, BNP, CK, PT, CBC #### [facility] [address] Ketones [Presence] in Urine by Test stripOrdered By: Terry Dudley on 01-31-2024 Ketones Ql (U) Negative Normal Negative [facility] Comment on above: Order Comment: Name Collection Type:: Clean-Voided Midstream Performed By: #### U A, UHCG #### [address] Leukocyte esterase [Presence ] in Urine by Test stripOrdered By: Terry Dudley on 01-31-2024 Leukocyte esterase Test strip Ql (U) Negative Normal Negative [facility] Comment on above: Order Comment: Name Collection Type:: Clean-Voided Midstream Performed By: #### U A, UHCG #### [address] Leukocytes [#/volume] correc edna for nucleated erythrocytes in Blood by Automated counOrdered By: Terry Dudley on 01-31-2024 WBC corrected for nucl RBC Auto (Bld) [#/Vol] 17.5 10*3/uL High 3.8-11.6 [facility] Leukocytes [#/volume] in Blo od by Automated countOrdered By: Terry Dudley on 01-31-2024 WBC (Bld) [#/Vol] 17.5 10*3/uL High 3.8-11.6 [facility] Comment on above: Performed By: #### H S TROP, PTT, CMP, DDIMER, BNP, CK, PT, CBC #### [address] Lymphocytes [#/volume] in Bl ood by Automated countOrdered By: Terry Dudley on 01-31-2024 Lymphocytes (Bld) [#/Vol] 2.1 10*3/uL Normal 1.00-4.8 [facility] Comment on above: Performed By: #### H S TROP, PTT, CMP, DDIMER, BNP, CK, PT, CBC #### [facility] [address] [place] [address] Lymphocytes/100 leukocytes i n Blood by Automated countOrdered By: Terry Dudley on 01-31-2024 Lymphocytes/100 WBC (Bld) 11.8 % Normal . [facility] Comment on above: Performed By: #### H S TROP, PTT, CMP, DDIMER, BNP, CK, PT, CBC #### [facility] [address] MCH [Entitic mass] by Automa edna countOrdered By: Terry Dudley on 01-31-2024 MCH (RBC) [Entitic mass] 31.7 pg Normal 24.7-34.3 [facility] Comment on above: Performed By: #### H S TROP, PTT, CMP, DDIMER, BNP, CK, PT, CBC #### [address] MCHC Auto (RBC) [Mass/Vol]Or dered By: Terry Dudley on 01-31-2024 MCHC (RBC) [Mass/Vol] 34.6 g/dL 32.0-35.0 [facility] MCV [Entitic volume] by Auto mated countOrdered By: Terry Dudley on 01-31-2024 MCV (RBC) [Entitic vol] 91.4 fL Normal 80-100 [facility] Comment on above: Performed By: #### H S TROP, PTT, CMP, DDIMER, BNP, CK, PT, CBC #### [address] Monocyte distribution width [Entitic volume] in Blood by AutomatedOrdered By: Terry Dudley on 01-31-2024 Monocyte distribution width Auto (Bld) [Entitic vol] 14.85 % 0.00-20.00 [facility] Neutrophils [#/volume] in Bl ood by Automated countOrdered By: Terry Dudley on 01-31-2024 Neutrophils (Bld) [#/Vol] 14.0 10*3/uL High 1.8-7.7 [facility] Comment on above: Performed By: #### H S TROP, PTT, CMP, DDIMER, BNP, CK, PT, CBC #### [facility] [address] Nitrite Test strip Ql (U)Ord ered By: Terry Dudley on 01-31-2024 Nitrite Ql (U) Negative Negative [facility] No Panel InformationOrdered By: Terry Dudley on 01-31-2024 Estimated GFR (CKD-EPI) > 60.0 mL/Min [facility] Creatinine Clearance (Chem 119.17 [facility] Nucleated erythrocytes [Pres ence] in Blood by Automated countOrdered By: Terry Dudley on 01-31-2024 Nucleated RBC Auto Ql (Bld) 0.0 /100{WBC} 0-0.5 [facility] Partial Thromboplastin Timeo n 01-31-2024 aPTT Coag (Bld) [Time] 26.1 s Normal 25.1-36.5 [facility] Comment on above: Result Comment: A he matocrit value greater than 55% may lead to inaccurate results in coagulation testing. Patients having hematocrit values >55% require a special collection tube for coagulation studies. Please contact the laboratory at [phone] for redraw instructions. Performed By: #### H S TROP, PTT, CMP, DDIMER, BNP, CK, PT, CBC #### [facility] [address] [place] [address] Platelet mean volume [Entiti c volume] in Blood by Automated countOrdered By: Terry Dudley on 01-31-2024 Platelet mean volume (Bld) [Entitic vol] 8.7 fL Normal 6.3-10.7 [facility] Comment on above: Performed By: #### H S TROP, PTT, CMP, DDIMER, BNP, CK, PT, CBC #### [facility] [address] Platelets [#/volume] in Bloo d by Automated countOrdered By: Terry Dudley on 01-31-2024 Platelets (Bld) [#/Vol] 297 10*3/uL Normal 150-450 [facility] Comment on above: Performed By: #### H S TROP, PTT, CMP, DDIMER, BNP, CK, PT, CBC #### [facility] [address] Potassium [Moles/volume] in Serum or PlasmaOrdered By: Terry Dudley on 01-31-2024 Potassium [Moles/Vol] 3.4 mmol/L Low 3.5-5.1 [facility] Comment on above: Performed By: #### H S TROP, PTT, CMP, DDIMER, BNP, CK, PT, CBC #### [facility] [address] [place], [place] [address] Protein Test strip (U) [Mass /Vol]Ordered By: Terry Dudley on 01-31-2024 Protein (U) [Mass/Vol] Negative Negative [facility] Protein [Mass/volume] in Ser um or PlasmaOrdered By: Terry Dudley on 01-31-2024 Protein [Mass/Vol] 7.7 g/dL Normal 6.4-8.9 [facility] Comment on above: Performed By: #### H S TROP, PTT, CMP, DDIMER, BNP, CK, PT, CBC #### [facility] [address] [place] [id number] [facility] Prothrombin time (PT)Ordered By: Terry Dudley on 01-31-2024 PT Coag (PPP) [Time] 14.0 s High 9.0-12.9 [facility] Comment on above: A hematocrit value g reater than 55% may lead to inaccurate results in coagulation testing. Patients having hematocrit values >55% require a special collection tube for coagulation studies. Please contact the laboratory at [phone] for redraw instructions. Result Comment: A he matocrit value greater than 55% may lead to inaccurate results in coagulation testing. Patients having hematocrit values >55% require a special collection tube for coagulation studies. Please contact the laboratory at [phone] for redraw instructions. Performed By: #### H S TROP, PTT, CMP, DDIMER, BNP, CK, PT, CBC #### [facility] [address] [place] [id number] [facility] Serum globulin measurement b y calculation (mass/volume)Ordered By: Terry Dudley on 01-31-2024 Globulin (S) [Mass/Vol] 3.0 g/dL Normal [facility] Comment on above: Performed By: #### H S TROP, PTT, CMP, DDIMER, BNP, CK, PT, CBC #### [facility] [address] [place] [address] Serum or plasma albumin/glob ulin mass ratioOrdered By: Terry Dudley on 01-31-2024 Albumin/Globulin [Mass ratio] 1.6 {ratio} [facility] Comment on above: Performed By: #### H S TROP, PTT, CMP, DDIMER, BNP, CK, PT, CBC #### [address] Serum or plasma anion gap de terminationOrdered By: Terry Dudley on 01-31-2024 Anion gap [Moles/Vol] 8.3 mmol/L Normal 6.0-15.0 [facility] Comment on above: Performed By: #### H S TROP, PTT, CMP, DDIMER, BNP, CK, PT, CBC #### [address] Sodium [Moles/volume] in Ser um or PlasmaOrdered By: Terry Dudley on 01-31-2024 Sodium [Moles/Vol] 136 mmol/L Normal 136-145 [facility] Comment on above: Performed By: #### H S TROP, PTT, CMP, DDIMER, BNP, CK, PT, CBC #### [address] Specific gravity Test strip (U) [Rel density]Ordered By: Terry Dudley on 01-31-2024 Specific gravity (U) [Rel density] 1.005 1.001-1.03 0 [facility] Troponin I High Sensitivityo n 01-31-2024 Troponin I High Sensitivity 3.5 pg/mL Normal 0.0-15.0 [facility] Comment on above: Result Comment: PERF ORMED BY: [place] [address] PATHOLOGIST COTTON WEIGHER CARLOS HITCHCOCK M.D. Performed By: #### H S TROP, PTT, CMP, DDIMER, BNP, CK, PT, CBC #### [facility] [address] Troponin I.cardiac [Mass/vol ume] in Serum or Plasma by Detection limit <= 0.01 ng/Ordered By: Terry Dudley on 01-31-2024 Troponin I.cardiac DL <= 0.01 ng/mL [Mass/Vol] 3.5 pg/mL 0.0-15.0 [facility] Urea nitrogen [Mass/volume] in Serum or PlasmaOrdered By: Terry Dudley on 01-31-2024 Urea nitrogen [Mass/Vol] 10 mg/dL Normal 7-25 [facility] Comment on above: Performed By: #### H S TROP, PTT, CMP, DDIMER, BNP, CK, PT, CBC #### [address] Urinalysison 01-31-2024 Bilirubin,Urine Negative Normal Negative [facility] Comment on above: Order Comment: Name Collection Type:: Clean-Voided Midstream Performed By: #### U A, UHCG #### [address] Glucose Ql (U) Normal Normal Normal [facility] Comment on above: Order Comment: Name Collection Type:: Clean-Voided Midstream Performed By: #### U A, UHCG #### [place] [address] [place] Nitrite,Urine Negative Normal Negative [facility] Comment on above: Order Comment: Name Collection Type:: Clean-Voided Midstream Performed By: #### U A, UHCG #### [place] [id number] [place] Occult Blood,Urine Negative Normal Negative [facility] Comment on above: Order Comment: Name Collection Type:: Clean-Voided Midstream Performed By: #### U A, UHCG #### [place] [address] [place] Protein,Urine Negative Normal Negative [facility] Comment on above: Order Comment: Name Collection Type:: Clean-Voided Midstream Performed By: #### U A, UHCG #### [address] Specificy [place],Urine 1.005 Normal 1.001-1.03 0 [facility] Comment on above: Order Comment: Name Collection Type:: Clean-Voided Midstream Performed By: #### U A, UHCG #### [address] Urobilinogen,Urine Normal Normal Normal [facility] Comment on above: Order Comment: Name Collection Type:: Clean-Voided Midstream Performed By: #### U A, UHCG #### [address] Urine appearanceOrdered By: Terry Dudley on 01-31-2024 Appearance (U) Clear Normal Clear [facility] Comment on above: Order Comment: Name Collection Type:: Clean-Voided Midstream Performed By: #### U A, UHCG #### [address] Urobilinogen Test strip (U) [Mass/Vol]Ordered By: Terry Dudley on 01-31-2024 Urobilinogen (U) [Mass/Vol] Normal mg/dL Normal [facility] pH of Urine by Test stripOrd ered By: Terry Dudley on 01-31-2024 pH (U) 6.5 [pH] Normal 5.0-9.0 [facility] Comment on above: Order Comment: Name Collection Type:: Clean-Voided Midstream Performed By: #### U A, UHCG #### [address] PAP ACOG PANEL 2: 21 to 29on 10-14-2021 . . Normal [facility] Comment on above: Performed By: #### P TT #### [facility] [address] [place] [address] Kaela Judie Age Gdln ACOG Testing 21-29 Normal [facility] Comment on above: Performed By: #### P TT #### [facility] [address] [place] [address] Kaela Dimas DIAGNOSIS: Comment Normal [facility] Comment on above: Result Comment: NEGA TIVE FOR INTRAEPITHELIAL LESION OR MALIGNANCY. CELLULAR CHANGES ASSOCIATED WITH INFLAMMATION ARE PRESENT. Performed By: #### P TT #### [facility] [address] [place] [address] Kaela Dimas Methodology: Comment Normal [facility] Comment on above: Result Comment: This liquid based ThinPrep(R) pap test was screened with the use of an image guided system. Performed By: #### P TT #### [facility] [address] [place] [address] Kaela Dimas Note: Comment Normal [facility] Comment on above: Result Comment: The Pap smear is a screening test designed to aid in the detection of premalignant and malignant conditions of the uterine cervix. It is not a diagnostic procedure and should not be used as the sole means of detecting cervical cancer. Both false-positive and false-negative reports do occur. . Performed By: #### P TT #### [facility] [address] [place] [address] Kaela Dimas Performed by: Comment [facility] Comment on above: Result Comment: Nancy Collins, All Source Intelligence Analyst (ASCP) Performed By: #### P TT #### [facility] [address] [place] [address] Kaela Dimas Reflex Criteria: Comment Normal [facility] Comment on above: Result Comment: The HPV DNA reflex criteria were not met with this specimen result therefore, no HPV testing was performed. . Performed By: #### P TT #### [facility] [address] [place] [address] Kaela Dimas Specimen adequacy: Comment [facility] Comment on above: Result Comment: Sati sfactory for evaluation. Endocervical and/or squamous metaplastic cells (endocervical component) are present. Performed By: #### P TT #### [facility] [address] [place] [address] Kaela Judie CBC AUTO DIFFon 02-07-2021 BASO # 0.1 103/ul Normal 0.0-0.1 [facility] Comment on above: Performed By: #### C BC #### [facility] [address] [id number] Kaela Dimas Basophils/100 WBC (Bld) 0.3 % Normal 0.2-2.0 [facility] Comment on above: Performed By: #### C BC #### [facility] [address] [place] [address] Kaela Judie EO # 0.1 103/ul Normal 0.0-0.7 [facility] Comment on above: Performed By: #### C BC #### [facility] [address] [place] [address] Kaela Judie Eosinophils/100 WBC (Bld) 0.5 % Critically low 0.9-7.0 [facility] Comment on above: Performed By: #### C BC #### [facility] [address] [place] [address] Kaela Dimas Erythrocyte distribution width (RBC) [Ratio] 12.3 % Normal 11.0-15.0 [facility] Comment on above: Performed By: #### C BC #### [facility] [address] [place] [address] Kaela Sahuen Hematocrit (Bld) [Volume fraction] 33.8 % Critically low 36.0-48.0 [facility] Comment on above: Performed By: #### C BC #### [facility] [address] [place] [address] Kaela Judie Hemoglobin (Bld) [Mass/Vol] 11.6 g/dL Critically low 12.0-16.0 [facility] Comment on above: Performed By: #### C BC #### [facility] [address] [place] [address] Kaela Judie IG # 0.20 10e3/ul Critically high 0.00-0.03 [facility] Comment on above: Performed By: #### C BC #### [facility] [address] [place] [address] Kaelastephanie Sahuen IG % 1.2 % Critically high 0.0-0.5 [facility] Comment on above: Performed By: #### C BC #### [facility] [address] [place] [address] Kaelastephanie Dimas LYMPH # 1.6 103/ul Normal 1.2-3.8 [facility] Comment on above: Performed By: #### C BC #### [facility] [address] [place], [place] [id number] Kaela Dimas Lymphocytes/100 WBC (Bld) 9.2 % Critically low 20.5-60.0 [facility] Comment on above: Performed By: #### C BC #### [facility] [address] [place] [address] Kaela Dimas MANUAL DIFF REQ NO Normal [facility] Comment on above: Performed By: #### C BC #### [facility] [address] [place] [address] Kaelastephanie Dimas MCH (RBC) [Entitic mass] 30.8 pg Normal 26.7-34.0 [facility] Comment on above: Performed By: #### C BC #### [facility] [address] [place] [address] Kaela Dimas MCHC (RBC) [Mass/Vol] 34.3 g/dL Normal 29.9-35.2 [facility] Comment on above: Performed By: #### C BC #### [facility] [address] [place] [address] Kaela Dimas MCV (RBC) [Entitic vol] 89.7 fL Normal 81.0-99.0 [facility] Comment on above: Performed By: #### C BC #### [facility] [address] [place], [place] [id number] Kaela Judie MONO # 0.9 103/ul Critically high 0.3-0.8 [facility] Comment on above: Performed By: #### C BC #### [facility] [address] [place], [place] [id number] Kaelastephanie Dimas Monocytes/100 WBC (Bld) 5.5 % Normal 1.7-12.0 [facility] Comment on above: Performed By: #### C BC #### [facility] [address] [place] [address] Kaela Dimas NEUT # 14.1 103/ul Critically high 1.4-6.5 [facility] Comment on above: Performed By: #### C BC #### [facility] [address] [place], [place] [id number] Kaela Dimas Neutrophils/100 WBC (Bld) 83.3 % Critically high 43.0-75.0 [facility] Comment on above: Performed By: #### C BC #### [facility] [address] [place], [place] [id number] Kaela Dimas Platelet mean volume (Bld) [Entitic vol] 11.0 fL Normal 9.5-13.5 [facility] Comment on above: Performed By: #### C BC #### [facility] [address] [place] [address] Kaela Dimas PLT 192 103/ul Normal 150-450 [facility] Comment on above: Performed By: #### C BC #### [facility] [address] [place], [place] [id number] Kaela Dimas RBC 3.77 106/ul Critically low 4.20-5.40 [facility] Comment on above: Performed By: #### C BC #### [facility] [address] [place], [place] [id number] Kaela Dimas WBC 16.9 103/ul Critically high 4.0-11.0 [facility] Comment on above: Performed By: #### C BC #### [facility] [address] [place] [address] Kaela Dimas ASYMPTOMATIC COVID-19 ANTIGE Non 02-05-2021 EUA Statement SEE BELOW Normal [facility] Comment on above: Result Comment: This test [...] sooner. Performed By: #### G TT3P #### [facility] [address] [place] [address] Kaela Dimas SARS-CoV-2 (COVID-19) RNA RIGOBERTO+probe Ql (Unsp spec) Negative Normal NEGATIVE [facility] Comment on above: Result Comment: Nega tive results are presumptive. They do not preclude infection and should not be used as the sole basis for treatment decisions. Additional confirmatory testing by a molecular method should be considered. Performed By: #### G TT3P #### [facility] [address] [place] [address] Kaela Dimas CBC AUTO DIFFon 02-05-2021 BASO # 0.1 103/ul Normal 0.0-0.1 [facility] Comment on above: Performed By: #### C BC #### [facility] [address] [place], [place] [id number] Kaela Dimas Basophils/100 WBC (Bld) 0.3 % Normal 0.2-2.0 [facility] Comment on above: Performed By: #### C BC #### [facility] [address] [place] [address] Kaela Judie EO # 0.1 103/ul Normal 0.0-0.7 [facility] Comment on above: Performed By: #### C BC #### [facility] [address] [place], [place] [id number] Kaela Judie Eosinophils/100 WBC (Bld) 0.3 % Critically low 0.9-7.0 [facility] Comment on above: Performed By: #### C BC #### [facility] [address] [place] [address] Kaela Dimas Erythrocyte distribution width (RBC) [Ratio] 12.0 % Normal 11.0-15.0 [facility] Comment on above: Performed By: #### C BC #### [facility] [address] [place] [address] Kaela Dimas Hematocrit (Bld) [Volume fraction] 36.9 % Normal 36.0-48.0 [facility] Comment on above: Performed By: #### C BC #### [facility] [address] [place] [address] Kaela Dimas Hemoglobin (Bld) [Mass/Vol] 12.7 g/dL Normal 12.0-16.0 [facility] Comment on above: Performed By: #### C BC #### [facility] [address] [place], [place] [address] Kaela Dimas IG # 0.19 10e3/ul Critically high 0.00-0.03 [facility] Comment on above: Performed By: #### C BC #### [facility] [address] [place] [address] Kaela Dimas IG % 1.0 % Critically high 0.0-0.5 [facility] Comment on above: Performed By: #### C BC #### [facility] [address] [place] [address] Kaela Dimas LYMPH # 1.4 103/ul Normal 1.2-3.8 [facility] Comment on above: Performed By: #### C BC #### [facility] [address] [place] [address] Kaela Dimas Lymphocytes/100 WBC (Bld) 7.6 % Critically low 20.5-60.0 [facility] Comment on above: Performed By: #### C BC #### [facility] [address] [place] [address] Kaela Dimas MANUAL DIFF REQ NO Normal [facility] Comment on above: Performed By: #### C BC #### [facility] [address] [place] [address] Kaela Dimas MCH (RBC) [Entitic mass] 30.5 pg Normal 26.7-34.0 [facility] Comment on above: Performed By: #### C BC #### [facility] [address] [place], [place] [address] Kaela Dimas MCHC (RBC) [Mass/Vol] 34.4 g/dL Normal 29.9-35.2 [facility] Comment on above: Performed By: #### C BC #### [facility] [address] [place], [place] [address] Kaelastephanie Dimas MCV (RBC) [Entitic vol] 88.5 fL Normal 81.0-99.0 [facility] Comment on above: Performed By: #### C BC #### [facility] [address] [place], [place] [address] Kaela Judie MONO # 1.0 103/ul Critically high 0.3-0.8 [facility] Comment on above: Performed By: #### C BC #### [facility] [address] [place] [id number] Kaela Judie Monocytes/100 WBC (Bld) 5.5 % Normal 1.7-12.0 [facility] Comment on above: Performed By: #### C BC #### [facility] [address] [id number] Kaela Judie NEUT # 15.7 103/ul Critically high 1.4-6.5 [facility] Comment on above: Performed By: #### C BC #### [facility] [address] [id number] Kaela Judie Neutrophils/100 WBC (Bld) 85.3 % Critically high 43.0-75.0 [facility] Comment on above: Performed By: #### C BC #### [facility] [address] [place], [place] [address] Kaela Judie Platelet mean volume (Bld) [Entitic vol] 11.8 fL Normal 9.5-13.5 [facility] Comment on above: Performed By: #### C BC #### [facility] [address] [place], [place] [address] Kaela Judie PLT 226 103/ul Normal 150-450 [facility] Comment on above: Performed By: #### C BC #### [facility] [address] [place] [address] Kaela Dimas RBC 4.17 106/ul Critically low 4.20-5.40 [facility] Comment on above: Performed By: #### C BC #### [facility] [address] [place] [address] Kaela Dimas WBC 18.5 103/ul Critically high 4.0-11.0 [facility] Comment on above: Performed By: #### C BC #### [facility] [address] [place] [address] Kaelastephanie Dimas DRUG SCREEN RAPID (URINE)on 02-05-2021 AMP Negative Normal NEGATIVE [facility] Comment on above: Performed By: #### D RUGRPD #### [facility] [address] [place] [address] Kaela Judie BAR Negative Normal NEGATIVE [facility] Comment on above: Performed By: #### D RUGRPD #### [facility] [address] [place] [address] Kaela Judie BUP Negative Normal NEGATIVE [facility] Comment on above: Performed By: #### D RUGRPD #### [facility] [address] [place] [address] Kaela Judie BZO Negative Normal NEGATIVE [facility] Comment on above: Performed By: #### D RUGRPD #### [facility] [address] [place] [address] Kaela Judie JERRY Negative Normal NEGATIVE [facility] Comment on above: Performed By: #### D RUGRPD #### [facility] [address] [place] [address] Kaela Judie CUT-OFFS SEE BELOW Normal [facility] Comment on above: Result Comment: AMP (Amphetamine): 500ng/mL, BAR (Barbituates): 200 ng/mL, BZO (Benzodiazepines): 150 ng/mL, BUP (Buprenorphine): 10 ng/mL, JERRY (Cocaine): 150 ng/mL, mAMP (Methamphetamine): 500 ng/mL, MTD (Methadone): 200 ng/mL, OPI (Opiates): 100 ng/mL, OXY (Oxycodone): 100 ng/mL, PCP (Phencyclidine): 25 ng/mL, PPX (Propoxyphene): 300 ng/mL, THC (Cannabinoids): 50 ng/mL, TCA (Trycyclic Antidepressants): 300 ng/mL Performed By: #### D RUGRPD #### [facility] [address] [place] [address] Kaela Judie DRUG CUT HEADER DRUG CLASS TEST SYST EM CUT-OFF CONCENTRATIONS ARE FOLLOWS: Normal [facility] Comment on above: Performed By: #### D RUGRPD #### [facility] [address] [place] [address] Kaela Judie mAMP Negative Normal NEGATIVE [facility] Comment on above: Performed By: #### D RUGRPD #### [facility] [address] [place] [address] Kaela Judie MTD Negative Normal NEGATIVE [facility] Comment on above: Performed By: #### D RUGRPD #### [facility] [address] [place] [address] Kaela Judie OPI Negative Normal NEGATIVE [facility] Comment on above: Performed By: #### D RUGRPD #### [facility] [address] [place] [address] Kaela Judie OXY Negative Normal NEGATIVE [facility] Comment on above: Performed By: #### D RUGRPD #### [facility] [address] [place] [address] Kaela Judie PCP Negative Normal NEGATIVE [facility] Comment on above: Performed By: #### D RUGRPD #### [facility] [address] [place] [address] Kaela Judie PPX Negative Normal NEGATIVE [facility] Comment on above: Performed By: #### D RUGRPD #### [facility] [address] [place] [address] Kaela Judie TCA Negative Normal NEGATIVE [facility] Comment on above: Performed By: #### D RUGRPD #### [facility] [address] [place] [address] Kaela Judie THC Negative Normal NEGATIVE [facility] Comment on above: Performed By: #### D RUGRPD #### [facility] [address] [place], [place] [address] Kaela Dimas TYPE AND SCREENon 02-05-2021 TYPE AND SCREEN Negative Normal [facility] Comment on above: Performed By: #### P TT #### [facility] [address] [place] [address] Kaela Dimas GROUP B STREP CULTUREon S. agalactiae Ag Ql (Unsp spec) Culture Observations: NEGATIVE FOR GROUP B STREPTOCOCCUS. Normal [facility] Comment on above: Performed By: #### P TT #### [facility] [address] [place] [address] Kaela Dimas US PREG BIOPHY W NON [...] by: MICHELLE LANE Date: 2021-01-30 08:23 Normal [facility] US PREG GROWTHon 01-30-2021 US PREG [...] by: MICHELLE LANE Date: 2021-01-30 08:25 Normal [facility] US PREG BIOPHY W NON STRESSo [...] by: MICHELLE LANE Date: 2021-01-23 07:22 Normal [facility] US PREG BIOPHY W NON STRESSo [...] by: MICHELLE LANE Date: 2021-01-16 07:31 Normal [facility] PROTEIN 24HR URINEon 06-15-2 021 T PROT, 24 HR UR 603.9 mg/24 hr Critically high 42.0-225.0 [facility] Comment on above: Performed By: #### G TT3P #### [facility] [address] [place], [place] [id number] Kaelastephanie Dimas UR PROT 12.2 mg/dL Critically high <=12.0 [facility] Comment on above: Performed By: #### G TT3P #### [facility] [address] [place] [address] Kaela Judie UR TOT VOL 4950 ml/24 HR Normal [facility] Comment on above: Performed By: #### G TT3P #### [facility] [address] [place] [address] Kaela Judie CBC AUTO DIFFon 01-13-2021 BASO # 0.0 103/ul Normal 0.0-0.1 [facility] Comment on above: Performed By: #### G TT3P #### [facility] [address] [place] [address] Kaelastephanie Sahuen Basophils/100 WBC (Bld) 0.2 % Normal 0.2-2.0 [facility] Comment on above: Performed By: #### G TT3P #### [facility] [address] [place] [address] Kaelastephanie Sahuen EO # 0.1 103/ul Normal 0.0-0.7 [facility] Comment on above: Performed By: #### G TT3P #### [facility] [address] [place] [address] Kaelastephanie Dimas Eosinophils/100 WBC (Bld) 0.6 % Critically low 0.9-7.0 [facility] Comment on above: Performed By: #### G TT3P #### [facility] [address] [place] [address] Kaela Judie Erythrocyte distribution width (RBC) [Ratio] 11.7 % Normal 11.0-15.0 [facility] Comment on above: Performed By: #### G TT3P #### [facility] [address] [place] [address] Kaela Judie Hematocrit (Bld) [Volume fraction] 34.5 % Critically low 36.0-48.0 [facility] Comment on above: Performed By: #### G TT3P #### [facility] [address] [place] [address] Kaela Dimas Hemoglobin (Bld) [Mass/Vol] 12.1 g/dL Normal 12.0-16.0 [facility] Comment on above: Performed By: #### G TT3P #### [facility] [address] [place] [address] Kaela Dimas IG # 0.20 10e3/ul Critically high 0.00-0.03 [facility] Comment on above: Performed By: #### G TT3P #### [facility] [address] [place] [address] Kaela Dimas IG % 1.2 % Critically high 0.0-0.5 [facility] Comment on above: Performed By: #### G TT3P #### [facility] [address] [place] [address] Kaela Dimas LYMPH # 1.5 103/ul Normal 1.2-3.8 [facility] Comment on above: Performed By: #### G TT3P #### [facility] [address] [place] [address] Kaela Dimas Lymphocytes/100 WBC (Bld) 8.6 % Critically low 20.5-60.0 [facility] Comment on above: Performed By: #### G TT3P #### [facility] [address] [place] [address] Kaela Dimas MANUAL DIFF REQ NO Normal [facility] Comment on above: Performed By: #### G TT3P #### [facility] [address] [place], [place] [id number] Kaela Dimas MCH (RBC) [Entitic mass] 30.6 pg Normal 26.7-34.0 [facility] Comment on above: Performed By: #### G TT3P #### [facility] [address] [place] [address] Kaela Dimas MCHC (RBC) [Mass/Vol] 35.1 g/dL Normal 29.9-35.2 [facility] Comment on above: Performed By: #### G TT3P #### [facility] [address] [place] [id number] Kaela Dimas MCV (RBC) [Entitic vol] 87.3 fL Normal 81.0-99.0 [facility] Comment on above: Performed By: #### G TT3P #### [facility] [address] [place] [id number] Kaela Dimas MONO # 1.2 103/ul Critically high 0.3-0.8 [facility] Comment on above: Performed By: #### G TT3P #### [facility] [address] [place] [address] Kaela Dimas Monocytes/100 WBC (Bld) 6.6 % Normal 1.7-12.0 [facility] Comment on above: Performed By: #### G TT3P #### [facility] [address] [place] [address] Kaela Dimas NEUT # 14.4 103/ul Critically high 1.4-6.5 [facility] Comment on above: Performed By: #### G TT3P #### [facility] [address] [place], [place] [address] Kaela Dimas Neutrophils/100 WBC (Bld) 82.8 % Critically high 43.0-75.0 [facility] Comment on above: Performed By: #### G TT3P #### [facility] [address] [place] [address] Kaela Dimas Platelet mean volume (Bld) [Entitic vol] 12.1 fL Normal 9.5-13.5 [facility] Comment on above: Performed By: #### G TT3P #### [facility] [address] [place], [place] [address] Kaela Dimas PLT 216 103/ul Normal 150-450 [facility] Comment on above: Performed By: #### G TT3P #### [facility] [address] [place] [address] Kaela Judie RBC 3.95 106/ul Critically low 4.20-5.40 [facility] Comment on above: Performed By: #### G TT3P #### [facility] [address] [place] [address] Kaelastephanie Dimas WBC 17.4 103/ul Critically high 4.0-11.0 [facility] Comment on above: Performed By: #### G TT3P #### [facility] [address] [place] [address] Kaelastephanie Dimas CULTURE URINEon 01-13-2021 CULTURE URINE Culture Observations : LIGHT GROWTH OF MIXED GENITAL TINO. NO POTENTIAL PATHOGENS SEEN. Normal [facility] Comment on above: Performed By: #### P TT #### [facility] [address] [place] [address] Kaelastephanie Sahuen LDHon 01-13-2021 LDH 194 U/L Normal 122-222 [facility] Comment on above: Performed By: #### U ELIZABETH, LDH #### [facility] [address] [place], [place] [address] Kaela Dimas PROF 14(COMP METB)on 021 Albumin [Mass/Vol] 2.7 g/dL Critically low 3.5-5.0 [facility] Comment on above: Performed By: #### G TT3P #### [facility] [address] [place], [place] [address] Kaelastephanie Dimas Albumin/Globulin [Mass ratio] 0.9 {ratio} Normal [facility] Comment on above: Performed By: #### G TT3P #### [facility] [address] [place], [place] [address] Kaela Judie ALP [Catalytic activity/Vol] 134 U/L Critically high 38-126 [facility] Comment on above: Performed By: #### G TT3P #### [facility] [address] [place], [place] [address] Kaela Judie ALT [Catalytic activity/Vol] 21 U/L Normal 9-52 [facility] Comment on above: Performed By: #### G TT3P #### [facility] [address] [place], [place] [address] Kaela Judie Anion gap [Moles/Vol] 11.6 mmol/L Normal [facility] Comment on above: Performed By: #### G TT3P #### [facility] [address] [place] [id number] Kaela Judie AST [Catalytic activity/Vol] 17 U/L Normal 14-36 [facility] Comment on above: Performed By: #### G TT3P #### [facility] [address] [place] [id number] Kaela Judie Bilirubin [Mass/Vol] 0.2 mg/dL Normal 0.2-1.3 [facility] Comment on above: Performed By: #### G TT3P #### [facility] [address] [place] [address] Kaela Judie Calcium [Mass/Vol] 9.1 mg/dL Normal 8.4-10.2 [facility] Comment on above: Performed By: #### G TT3P #### [facility] [address] [place] [address] Kaela Judie Chloride [Moles/Vol] 106 mmol/L Normal 98-107 [facility] Comment on above: Performed By: #### G TT3P #### [facility] [address] [place] [address] Kaela Judie CO2 [Moles/Vol] 25.8 mmol/L Normal 22.0-30.0 [facility] Comment on above: Performed By: #### G TT3P #### [facility] [address] [place] [id number] Kaela Judie Creatinine [Mass/Vol] 0.53 mg/dL Normal 0.52-1.04 [facility] Comment on above: Performed By: #### G TT3P #### [facility] [address] [place] [id number] Kaela Judie EGFR-AF BELARUSIAN >60 Normal >=60 [facility] Comment on above: Performed By: #### G TT3P #### [facility] [address] [place] [id number] Kaela Judie EGFR-NON AF BELARUSIAN >60 Normal >=60 [facility] Comment on above: Performed By: #### G TT3P #### [facility] [address] [place] [address] Kaela Judie Globulin (S) [Mass/Vol] 3.0 g/dL Normal [facility] Comment on above: Performed By: #### G TT3P #### [facility] [address] [place], [place] [address] Kaela Judie Glucose [Mass/Vol] 85 mg/dL Normal 74-106 [facility] Comment on above: Performed By: #### G TT3P #### [facility] [address] [place] [address] Kaela Judie Potassium [Moles/Vol] 3.4 mmol/L Normal 3.4-5.0 [facility] Comment on above: Performed By: #### G TT3P #### [facility] [address] [place] [address] Kaela Judie Protein [Mass/Vol] 5.7 g/dL Critically low 6.1-8.2 [facility] Comment on above: Performed By: #### G TT3P #### [facility] [address] [place] [address] Kaela Judie Sodium [Moles/Vol] 140 mmol/L Normal 137-145 [facility] Comment on above: Performed By: #### G TT3P #### [facility] [address] [place] [address] Kaela Judie Urea nitrogen [Mass/Vol] 10.0 mg/dL Normal 7.0-17.0 [facility] Comment on above: Performed By: #### G TT3P #### [facility] [address] [place] [address] Kaela Judie Urea nitrogen/Creatinine [Mass ratio] 18.9 mg/mg Normal [facility] Comment on above: Performed By: #### G TT3P #### [facility] [address] [place], [place] [address] Kaela Judie PTTon 01-13-2021 aPTT Coag (Bld) [Time] 23.6 s Normal 22.3-36.2 Th [facility] Comment on above: Performed By: #### P TT #### [facility] [address] [place] [address] Kaela Judie URIC ACID SERUMon 01-13-2021 Urate [Mass/Vol] 3.7 mg/dL Normal 2.5-6.2 [facility] Comment on above: Performed By: #### U ELIZABETH, LDH #### [facility] [address] [place] [address] Kaela Judie UA (CLEAN/CATCH) SHOW OPERATIONS SUPERVISOR/MICRO I F IND.on 01-12-2021 Bilirubin Ql (U) Negative Normal NEGATIVE [facility] Comment on above: Performed By: #### U MICRO, UACSIND #### [facility] [address] [place] [address] Kaela Judie Clarity (U) CLEAR Normal CLEAR [facility] Comment on above: Performed By: #### U MICRO, UACSIND #### [facility] [address] [place] [address] Kaela Judie Color (U) LT. YELLOW Normal YELLOW [facility] Comment on above: Performed By: #### U MICRO, UACSIND #### [facility] [address] [place] [address] Kaela Judie Glucose Ql (U) Negative Normal NEGATIVE [facility] Comment on above: Performed By: #### U MICRO, UACSIND #### [facility] [address] [place] [address] Kaela Judie Hemoglobin Ql (U) Negative Normal NEGATIVE [facility] Comment on above: Performed By: #### U MICRO, UACSIND #### [facility] [address] [place] [address] Kaela Judie Ketones Ql (U) Negative Normal NEGATIVE [facility] Comment on above: Performed By: #### U MICRO, UACSIND #### [facility] [address] [place] [address] Kaela Judie LEUKOCYTES TRACE Abnormal NEGATIVE [facility] Comment on above: Performed By: #### U MICRO, UACSIND #### [facility] [address] [place] [address] Kaela Judie Nitrite Ql (U) Negative Normal NEGATIVE [facility] Comment on above: Performed By: #### U MICRO, UACSIND #### [facility] [address] [place] [address] Kaelastephanie Dimas pH (U) 6.0 [pH] Normal 5-9 [facility] Comment on above: Performed By: #### U MICRO, UACSIND #### [facility] [address] [place] [address] Kaelastephanie Dimas SPEC GRAVITY 1.025 Normal 1.005-<=1. 025 [facility] Comment on above: Performed By: #### U MICRO, UACSIND #### [facility] [address] [place] [address] Kaela Judie UA PROTEIN Negative Normal NEGATIVE/ TRACE [facility] Comment on above: Performed By: #### U MICRO, UACSIND #### [facility] [address] [place] [address] Kaelastephanie Dimas UR MICRO IND INDICATED Normal [facility] Comment on above: Performed By: #### U MICRO, UACSIND #### [facility] [address] [place] [address] Kaelastephanie Dimas Urobilinogen Qn (U) 0.2 {Sylvester'U}/dL Normal 0.2 - 1. 0 [facility] Comment on above: Performed By: #### U MICRO, UACSIND #### [facility] [address] [place] [address] Kaelastephanie Dimas URINE MICROSCOPIC ONLYon BACTERIA TRACE Abnormal NONE SEEN [facility] Comment on above: Performed By: #### U MICRO, UACSIND #### [facility] [address] [place] [address] Kaela Judie Bacteria identified Cx Nom (U) INDICATED Normal [facility] Comment on above: Performed By: #### U MICRO, UACSIND #### [facility] [address] [place] [address] Kaela Judie CAST NONE SEEN Normal NONE SEEN [facility] Comment on above: Performed By: #### U MICRO, UACSIND #### [facility] [address] [place] [address] Kaela Judie Crystals LM Nom (Urine sed) NONE SEEN Normal NONE SEEN [facility] Comment on above: Performed By: #### U MICRO, UACSIND #### [facility] [address] [place] [address] Kaelastephanie Dimas Epithelial cells LM Ql (Urine sed) FEW Abnormal NONE SEEN /RARE [facility] Comment on above: Performed By: #### U MICRO, UACSIND #### [facility] [address] [place] [address] Kaela Judie MUCOUS SMALL Abnormal NONE SEEN [facility] Comment on above: Performed By: #### U MICRO, UACSIND #### [facility] [address] [place] [address] Kaela Judie RBC 0-2 Normal 0-2 [facility] Comment on above: Performed By: #### U MICRO, UACSIND #### [facility] [address] [place] [address] Kaelastephanie Sahuen WBC 2-5 Abnormal NONE SEEN [facility] Comment on above: Performed By: #### U MICRO, UACSIND #### [facility] [address] [place] [address] Kaelastephanie Sahuen US PREG BIOPHY W NON STRESSo n [...] IRINEO COMBS Date: 2021-01-09 07:18 Normal [facility] US PREG GROWTHon 12-31-2020 US PREG GROWTH [...] cm; 32 weeks 2 days; % EFW: [id number], 39% FL/AC: 0.280700 FL/BPD: 0.735158 HC/AC: 1.928299 GESTATIONAL AGE: Age by EDC: 32 weeks 1 day SUSANNA by EDC: 02/24/2021 Age by US: 32 weeks 0 days SUSANNA by US: 02/25/2021 IMPRESSION: Normal interval growth Electronically authenticated by: IRINEO COMBS Date: 2020-12-31 09:38 Normal [facility] GTT 3 HR PREGon 12-12-2020 Glucose [Mass/Vol] 86 mg/dL Normal 74-106 [facility] Comment on above: Performed By: #### G TT3P #### [facility] [address] [place] [address] Kaela Judie Glucose [Mass/Vol] 179 mg/dL Normal [facility] Comment on above: Performed By: #### G TT3P #### [facility] [address] [place] [address] Kaela Judie Glucose [Mass/Vol] 131 mg/dL Normal [facility] Comment on above: Performed By: #### G TT3P #### [facility] [address] [address] Kaela Judie Glucose [Mass/Vol] 145 mg/dL Normal [facility] Comment on above: Performed By: #### G TT3P #### [facility] [address] [place] [address] Kaela Judie GLUCOSE - 1HRon 12-05-2020 Glucose [Mass/Vol] 151 mg/dL Critically high 74-106 [facility] Comment on above: Result Comment: sherri ent was approximately 5 minutes late for draw Performed By: #### G LU1HR #### [facility] [address] [place] [address] Kaela Dimas HEMOGRAM AND PLATELon 2020 Hematocrit (Bld) [Volume fraction] 38.4 % Normal 36.0-48.0 [facility] Comment on above: Performed By: #### G TT3P #### [facility] [address] [place] [address] Kaela Dimas Hemoglobin (Bld) [Mass/Vol] 13.2 g/dL Normal 12.0-16.0 [facility] Comment on above: Performed By: #### G TT3P #### [facility] [address] [place] [address] Kaela Dimas MCH (RBC) [Entitic mass] 30.8 pg Normal 26.7-34.0 [facility] Comment on above: Performed By: #### G TT3P #### [facility] [address] [place] [address] Kaela Dimas MCHC (RBC) [Mass/Vol] 34.4 g/dL Normal 29.9-35.2 [facility] Comment on above: Performed By: #### G TT3P #### [facility] [address] [place] [address] Kaela Dimas MCV (RBC) [Entitic vol] 89.5 fL Normal 81.0-99.0 [facility] Comment on above: Performed By: #### G TT3P #### [facility] [address] [place] [address] Kaelastephanie Sahuen PLT 238 103/ul Normal 150-450 [facility] Comment on above: Performed By: #### G TT3P #### [facility] [address] [place] [address] Kaelastephanie Dimas RBC 4.29 106/ul Normal 4.20-5.40 [facility] Comment on above: Performed By: #### G TT3P #### [facility] [address] [place] [address] Kaelastephanie Sahuen WBC 17.0 103/ul Critically high 4.0-11.0 [facility] Comment on above: Performed By: #### G TT3P #### [facility] [address] [place] [address] Kaela Dimas PREG GROWTHon 12-03-2020 PREG GROWTH EXAMINATION: US PREG GROWTH HISTORY: [...] cm; 28 weeks 0 days; % EFW: 2.657350, 2 lbs. 10 oz., 40% FL/AC: 0.209599 FL/BPD: 0.736138 HC/AC: 1.621659 GESTATIONAL AGE: Age by EDC: 28 weeks 1 day SUSANNA by EDC: 02/24/2021 Age by US: 20 weeks 2 days SUSANNA by US: 02/23/2021 IMPRESSION: Normal interval growth Electronically authenticated by: IRINEO COMBS Date: 2020-12-03 10:04 Normal [facility] Vital Signs Date Time Vital Sign Value Performing Clinician Facility 08-14-2024 16:26-0500 Body mass index (BMI) [Ratio] 41.65 kg/m2 [employer] Work Phone: [facility] 08-14-2024 16:26-0500 Body weight 106.65 kg [employer] Work Phone: [facility] 08-14-2024 16:26-0500 Diastolic blood pressure 80 mm[Hg] [employer] Work Phone: [facility] 08-14-2024 16:26-0500 Systolic blood pressure 130 mm[Hg] [employer] Work Phone: [facility] 07-31-2024 15:22-0500 Body mass index (BMI) [Ratio] 41.81 kg/m2 Madisyn Gaona PA Work Phone: [facility] 07-31-2024 15:22-0500 Body weight 107.05 kg Madisyn Gaona PA Work Phone: [facility] 07-31-2024 15:22-0500 Diastolic blood pressure 72 mm[Hg] Madisyn Gaona PA Work Phone: [facility] 07-31-2024 15:22-0500 Systolic blood pressure 122 mm[Hg] Madisyn Gaona PA Work Phone: [facility] 07-17-2024 16:19-0500 Body mass index (BMI) [Ratio] 41.81 kg/m2 Scotty Jacquie DO Work Phone: [facility] 07-17-2024 16:19-0500 Body weight 107.05 kg Scotty Jacquie DO Work Phone: [facility] 07-17-2024 16:19-0500 Diastolic blood pressure 72 mm[Hg] Scotty Jacquie DO Work Phone: [facility] 07-17-2024 16:19-0500 Systolic blood pressure 122 mm[Hg] Scotty Jacquie DO Work Phone: [facility] 07-14-2024 11:13-0500 Body height 160 cm Aniceto Fox MD Work Phone: [facility] 07-14-2024 11:13-0500 Body mass index (BMI) [Ratio] 40.74 kg/m2 Aniceto Fox MD Work Phone: [facility] 07-14-2024 11:13-0500 Body weight 104.33 kg Aniceto Fox MD Work Phone: [facility] 07-14-2024 11:13-0500 Diastolic blood pressure 84 mm[Hg] Aniceto Fox MD Work Phone: [facility] 07-14-2024 11:13-0500 Heart rate 104 /min Aniceto Fox MD Work Phone: [facility] 07-14-2024 11:13-0500 Systolic blood pressure 144 mm[Hg] Aniceto Fox MD Work Phone: [facility] 06-15-2024 15:34-0500 Body mass index (BMI) [Ratio] 40.6 kg/m2 Madisyn Gaona PA Work Phone: [facility] 06-15-2024 15:34-0500 Body weight 103.96 kg Madisyn Jimenez PA Work Phone: [facility] 06-15-2024 15:34-0500 Diastolic blood pressure 76 mm[Hg] Madisyn Jimenez PA Work Phone: [facility] 06-15-2024 15:34-0500 Systolic blood pressure 122 mm[Hg] Madisyn Jimenez PA Work Phone: [facility] 05-18-2024 12:07-0400 Body mass index (BMI) [Ratio] 39.5 kg/m2 Scotty Jacquie DO Work Phone: [facility] 05-18-2024 12:07-0400 Body weight 101.15 kg Scotty Jacquie DO Work Phone: [facility] 05-18-2024 12:07-0400 Diastolic blood pressure 78 mm[Hg] Scotty Jacquie DO Work Phone: [facility] 05-18-2024 12:07-0400 Systolic blood pressure 124 mm[Hg] Scotty Jacquie DO Work Phone: [facility] 04-20-2024 08:46-0400 Body mass index (BMI) [Ratio] 39.41 kg/m2 Madisyn Gaona PA Work Phone: [facility] 04-20-2024 08:46-0400 Body weight 100.92 kg Madisyn Gaona PA Work Phone: [facility] 04-20-2024 08:46-0400 Diastolic blood pressure 82 mm[Hg] Madisyn Gaona PA Work Phone: [facility] 04-20-2024 08:46-0400 Systolic blood pressure 122 mm[Hg] Madisyn Jimenez PA Work Phone: [facility] 03-22-2024 11:34-0400 Body mass index (BMI) [Ratio] 39.5 kg/m2 Scotty Jacquie DO Work Phone: [facility] 03-22-2024 11:34-0400 Body weight 101.15 kg Scotty Jacquie DO Work Phone: [facility] 03-22-2024 11:34-0400 Diastolic blood pressure 74 mm[Hg] Scotty Jacquie DO Work Phone: [facility] 03-22-2024 11:34-0400 Systolic blood pressure 122 mm[Hg] Scotty Jacquie DO Work Phone: [facility] 01-31-2024 18:14-0400 Diastolic blood pressure 74 mm[Hg] MD Jacques Mccarthy Work Phone: [facility] 01-31-2024 18:14-0400 Heart rate 100 /min MD Jacques Mccarthy Work Phone: [facility] 01-31-2024 18:14-0400 Respiratory rate 18 /min MD Jacques Mccarthy Work Phone: [facility] 01-31-2024 18:14-0400 SaO2% (BldA) [Mass fraction] 100 % MD Jacques Mccarthy Work Phone: [facility] 01-31-2024 18:14-0400 Systolic blood pressure 156 mm[Hg] MD Jacques Mccarthy Work Phone: [facility] 01-31-2024 14:04-0400 Body height 160.02 cm MD Jacques Mccarthy Work Phone: [facility] 01-31-2024 14:04-0400 Body temperature 97.4 [degF] MD Jacques Mccarthy Work Phone: [facility] 01-31-2024 14:04-0400 Body weight 98.5 kg MD Jacques Mccarthy Work Phone: [facility] Encounters Encounter Date Encounter Type Care Provider Facility Start: 08-22-2024 End: 08-22-2024 ambulatory SCOTTY JACQUIE Not Available Start: 08-22-2024 End: 08-22-2024 Bamboo flowsheet Scotty Jacquie DO Work Phone: [facility] Start: 08-22-2024 End: 08-22-2024 Bamboo flowsheet Scotty Jacquie DO Work Phone: [facility] Start: 08-16-2024 End: 08-16-2024 Documentation procedure Judie Stearns [facility] at [facility] Start: 08-15-2024 End: 08-15-2024 Office outpatient visit 25 minutes Nubia Lundberg MD Work Phone: [facility] Comment on above: 32 weeks gestation o f (Primary Dx); Gestational diabetes mellitus (GDM) in third trimester, gestational diabetes method of control unspecified; Chronic hypertension affecting ; BMI 40.0-44.9, adult ([facility]); arrhythmia affecting , antepartum; Polyhydramnios affecting ; Separation of chorion and amnion membranes, antepartum Start: 08-15-2024 End: 08-15-2024 Orders Only Judie Stearns [facility] at [facility] Comment on above: Abnormal ultrasonic finding [...] Aniceto Fox MD Work Phone: [facility] [place] Comment on above: Gestational diabetes mellitus (GDM), antepartum, gestational diabetes method of control unspecified (Primary Dx); Chronic hypertension affecting Start: 07-14-2024 End: 07-14-2024 ambulatory [facility] Start: 07-13-2024 End: 07-13-2024 Clinisync Result Encounter Madisyn KERNS Work Phone: [facility] External Department Unsolicited Start: 07-13-2024 End: 07-13-2024 Clinisync Result Encounter Madisyn KERNS Work Phone: [facility] External Department Unsolicited Start: 06-21-2024 End: 06-21-2024 Chart abstracting Aniceto Fox MD Work Phone: [facility] Start: 06-15-2024 End: 06-15-2024 flow sheet [...] 06-15-2024 Bamboo flowsheet Madisyn KERNS Work Phone: [facility] Start: 05-18-2024 End: 05-18-2024 Bamboo flowsheet Scotty Jacquie DO Work Phone: [facility] Start: 05-18-2024 End: 05-18-2024 Bamboo flowsheet Scotty Jacquie DO Work Phone: [facility] Start: 05-18-2024 End: 05-18-2024 ambulatory SCOTTY JACQUIE Not Available Start: 05-18-2024 End: 05-18-2024 flow sheet Scotty Jacquie DO Work Phone: [facility] Comment on above: 20 weeks gestation o f ; Second trimester Start: 04-20-2024 End: 04-20-2024 Bamboo flowsheet Madisyn KERNS Work Phone: [facility] Start: 04-20-2024 End: 04-20-2024 Bamboo flowsheet Madisyn KERNS Work Phone: [facility] Start: 04-20-2024 End: 04-20-2024 Office outpatient visit 15 minutes Madisyn KERNS Work Phone: [facility] Comment on above: Screening, , for anatomic survey; Well woman exam with routine gynecological exam; Screen for STD (sexually transmitted disease); Vaginal discharge; Second trimester Start: 04-20-2024 End: 04-20-2024 Patient encounter procedure Madisyn KERNS Work Phone: [facility] Start: 04-20-2024 End: 04-20-2024 ambulatory MADISYN GAONA Not Available Start: 03-22-2024 End: 03-22-2024 Bamboo flowsheet Scotty Jacquie DO Work Phone: [facility] Start: 03-22-2024 End: 03-22-2024 Bamboo flowsheet Scotty Jacquie DO Work Phone: [facility] Start: 03-22-2024 End: 03-22-2024 [...] patient visit MD Jacques Mccarthy Work Phone: [facility] Work Phone: Start: 10-08-2021 End: [...] Work Phone: Start: 08-04-2024 [facility] (CLEAN/CATCH) SHOW OPERATIONS SUPERVISOR/MICRO IF IND. Scotty Jacquie DO Work Phone: [...] Author Start: 08-15-2025 Tobacco Screening Tobacco Screening [facility] Start: 07-14-2025 Adult BMI Screening Adult BMI Screen ing [facility] Start: 06-21-2025 Adult BMI Screening Adult BMI Screen ing [facility] Start: 08-30-2024 End: 08-30-2024 Patient encounter procedure 08/30/2024 10:30 AM EST Office Visit [facility] [address] [place] [id number] Eliud Wilson MD [address] [place] [address] [facility] Start: 08-22-2024 End: 08-22-2024 Patient encounter procedure 08/22/2024 2:30 PM EST Routine [facility] [address] [facility] [place] [address] Scotty Dhillon, DO [address] [place] [address] [facility] Start: 08-14-2024 End: 08-14-2024 Patient encounter procedure 08/14/2024 3:30 PM EST Routine [facility] [address] [place] [address] Scotty Dhillon, DO [address] [place], [place] [id number] [facility] Start: 07-31-2024 End: 07-31-2024 Patient encounter procedure [facility] Comment on above: Arrived Start: 07-17-2024 End: 07-17-2024 Patient encounter procedure 07/17/2024 3:20 PM EST Routine [facility] [address] [place] [phone] Scotty Dhillon, [address] [facility] [place] [address] [facility] Start: 07-17-2024 End: 07-17-2024 Professional / ancillary services management 07/17/2024 3:00 PM EST Ancillary Procedure [facility] [address] [place] [phone] [facility] Start: 07-17-2024 End: 07-17-2025 US biophysical profile w non stress test US biophysical profile w non stress test Imaging Routine Third trimester Gestational diabetes mellitus (GDM) in third trimester, gestational diabetes method of control unspecified Hypertension, unspecified type (CMS/HCC) Expected: 07/17/2024 (Approximate), Expires: 07/17/2025 [facility] Comment on above: Expected: 07/17/2024 (Approximate), Expires: 07/17/2025 Start: 07-17-2024 End: 07-17-2025 US for US OB SCAN FOR GROWTH Imaging Routine Third trimester Gestational diabetes mellitus (GDM) in third trimester, gestational diabetes method of control unspecified Hypertension, unspecified type (CMS/HCC) Expected: 07/17/2024 (Approximate), Expires: 07/17/2025 [facility] Work Phone: Comment on above: Expected: 07/17/2024 (Approximate), Expires: 07/17/2025 Start: 07-14-2024 End: 07-14-2024 Patient encounter procedure [facility] [place] Start: 06-15-2024 End: 06-15-2024 Patient encounter procedure 06/15/2024 3:30 PM EST Routine [facility] [address] [facility] [place] [phone] Madisyn Gaona PA [address] [facility] [address] [place], [place] [id number] [facility] Start: 06-15-2024 End: 06-15-2025 [...] EDT Office Visit [facility] [address] [place] [phone] Scotty Dhillon DO [address] [facility] [place] [address] [facility] Start: 05-18-2024 End: 05-18-2024 Professional / ancillary services management 05/18/2024 10:30 AM EDT Ancillary Procedure [facility] [address] [facility] [place] [phone] [facility] Start: 04-20-2024 End: 04-20-2025 Alpha fetoprotein, maternal Alpha fetoprotein, maternal Lab Routine Second trimester Expected: 04/20/2024 (Approximate), Expires: 04/20/2025 [facility] Work Phone: Comment on above: Expected: 04/20/2024 (Approximate), Expires: 04/20/2025 Start: 04-20-2024 End: 04-20-2025 US for US OB ANATOMY SINGLE W US OB CERVICAL LENGTH Imaging Routine Screening, , for anatomic survey Expected: 04/20/2024 (Approximate), Expires: 04/20/2025 [facility] Comment on above: Expected: 04/20/2024 (Approximate), Expires: 04/20/2025 Start: 04-20-2024 End: 04-20-2024 Patient encounter procedure [facility] Comment on above: Arrived Start: 04-02-2024 Influenza vaccination Influenza Vacc ine [facility] Start: 03-22-2024 End: 03-22-2024 Patient encounter procedure 03/22/2024 11:20 AM EDT Routine [facility] [address] [place] [address] Scotty Dhillon, DO [address] [facility] [address] [place], [place] [phone] Arrived [facility] Comment on above: Arrived Start: 2018 Screening for malign ant neoplasm of cervix Pap Smear [facility] Start: 2016 DTaP,Tdap and Td Vaccines (1 - Tdap) DTaP,Tdap and Td Vaccines (1 - Tdap) [facility] Start: 2015 Adult BMI Follow Up Plan Adult BMI Follow Up Plan [facility] Start: 2015 Adult BMI Screening Adult BMI Screen ing [facility] Start: 2009 Depression Screening Depression Scre ening [facility] Start: 2009 Tobacco Screening Tobacco Screening [facility] CBC W Auto Different ial panel - Blood CBC and differential Lab Routine Abnormal CBC Ordered: 03/22/2024 [facility] Work Phone: Comment on above: Ordered: 03/22/2024 Patient Education - Th e Second Month High Blood Pressure ED [facility] Work Phone: Patient referral [facility] Work Phone: Payers Date Payer Category Payer Medicaid [id number] 2024 Medicaid [id number] 2024 Self-pay 2023 Private Health Insurance [id number] 2023 Private Health Insurance [id number] 2022 Medicaid HMO [employer] [id number] 1997 Unknown [id number] 2.16.840.1.435422.3.579.2. 593 1997 Unknown [id number] 2.16.840.1.680654.3.579.2. 593 1997 Unknown [id number] 2.16.840.1.291826.3.579.2. 593 1997 Unknown [id number] 2.16.840.1.618074.3.579.2. 593 1997 Unknown [id number] 2.16.840.1.075565.3.579.2. 593 1997 Unknown [id number] 2.16.840.1.414997.3.579.2. 593 1997 Unknown [id number] 2.16.840.1.501202.3.579.2. 593 1997 Unknown [id number] 2.16.840.1.475519.3.579.2. 593 1997 Unknown [id number] 2.16.840.1.915433.3.579.2. 593 1997 Unknown [id number] 2.16.840.1.387050.3.579.2. 593 1997 Unknown [id number] 2.16.840.1.277926.3.579.2. 593 1997 Unknown [id number] 2.16.840.1.190091.3.579.2. 593 1997 Unknown [id number] 2.16.840.1.683343.3.579.2. 593 1997 Unknown [id number] 2.16.840.1.343043.3.579.2. 593 1997 Unknown [id number] 2.16.840.1.772782.3.579.2. 593 1997 Unknown [id number] 2.16.840.1.076326.3.579.2. 593 1997 Unknown [id number] 2.16.840.1.757942.3.579.2. 593 1997 Unknown [id number] 2.16.840.1.783446.3.579.2. 593 1997 Unknown [id number] 2.16.840.1.661501.3.579.2. 1286 1997 Unknown [id number] 2.16.840.1.917255.3.579.2. 1286 1997 Unknown [id number] 2.16.840.1.115975.3.579.2. 1286 1997 Unknown [id number] 2.16.840.1.924919.3.579.2. 1259 1997 Unknown [id number] 2.16.840.1.402462.3.579.2. 9 1997 Unknown [id number] 2.16.840.1.427801.3.579.2. 1258 1997 Unknown [id number] 2.16.840.1.952828.3.579.2. 9 1997 Unknown [id number] 2.16.840.1.015239.3.579.2. 1258 1997 Unknown [id number] 2.16.840.1.683957.3.579.2. 1258 1997 Unknown [id number] 2.16.840.1.972883.3.579.2. 1258 1997 Unknown [id number] 2.16.840.1.339286.3.579.2. 1258 1997 Unknown [id number] 2.16.840.1.228960.3.579.2. 1258 1997 Unknown [id number] 2.16.840.1.515427.3.579.2. 1258 1997 Unknown [id number] 2.16.840.1.520291.3.579.2. 1258 1997 Unknown [id number] 2.16.840.1.951727.3.579.2. 1259 1959 Unknown [id number] 1959 Unknown [id number] 1959 Unknown [id number] Unknown [id number] 2.16.840.1.340130.3.579.2. 531 Social History Date Type Detail Facility Start: 01-13-2024 [facility] Start: 01-31-2024 [facility] Start: 1995 Sex Assigned At Female F [facility] smoking consumption unknown [facility] Start: 1997 Sex assigned at Not on file [facility] Start: 08-23-2020 End: 06-21-2024 Gender identity Not on file [facility] Start: 10-07-2020 End: 07-14-2024 Tobacco smoking status [facility]IS Ex-smoker [facility] History of tobacco use Current smoker [facility] Start: 10-07-2020 End: 07-14-2024 Tobacco use and exposure Smokeless tobacco non-user [facility] Start: 06-21-2024 End: 08-15-2024 Alcoholic beverage intake Ex-drinker (finding) [facility] Start: 08-23-2020 End: 06-21-2024 History of Social function [facility] Childcare Unknown [facility] Start: 10-07-2020 End: 07-14-2024 Tobacco Comment quit 3 years ago [facility] Start: 08-23-2020 Sex Female (finding) [facility] History of tobacco use Cigarette Smoker P [facility] Medical Equipment Procedure Code Equipment Code Equipment Origin al Text Equipment Identifier Dates 1 strip by In Vi tro route Daily Use in the morning prior to breakfast, 1 hour after each meal for a total of 4times daily. [id number] Start: 07-17-2024 End: 08-16-2024 1 each by In Vit ro route Daily Use to check FSBS four times daily [id number] Start: 07-17-2024 End: 08-16-2024 Clinical Notes 02-05-2021 [...] return my call. documented in this encounter [facility] 08-15-2024 History of Present illness Narrative Video Visit via Real-time Synchronous Audiovisual Provider Location: [facility]- [facility]ICINE AT [address] [address] Patient Location: Other [place] Office Patient Location [employer] Labourer: None Video Visit Consent Statement: I discussed [...] that there are some limitations compared to [id number] evaluations. We elected to proceed. REASON FOR OFFICE VISIT: ADD on for polyhydramnios, PACs and chorion amnion separation HISTORY OF PRESENT ILLNESS: Samantha Benjamin is a pleasant 29 y.o. G 2 [...] on ultrasound BMI 40.0-44.9, adult ([facility]) Past Medical History: Diagnosis Date Anxiety Chronic [...] and the other consultants, we search on [facility] and all the available care everywhere [facility] I did review all the imaging studies of the patient available on EMR, ordered by the primary care physician and the other car sales consultant HABITS: Patient activity no restrictions, diet [...] alert and oriented. Assessment and plan Samantha Benjamin is 29 y.o. at 32w5d 1. 32 [...] more likely to fail compared to insulin. 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 BMI 40.0-44.9, adult ([facility]) Denies signs and symptoms of preeclampsia and [...] of labor - if you would like [facility] to start managing the patient diabetes [...] patient is in complete care of her drawbridge tender. Patient does have ultrasound appointment scheduled with us. Thank you for allowing me to participate in Samantha Benjamin . If there any questions please do not hesitate to contact us. Sincerely, Nubia Lundberg MD, FACOG (she/hers) [facility] [address] [place] [address] documented in this encounter [facility] 08-14-2024 History of Present illness Narrative Reason for Appointment: Patient ID: Samantha Benjamin is a 29 y.o. female who presents [...] nursing note reviewed. Exam conducted with a it investment/portfolio manager present. Vitals: Estimated body mass index is [...] Scotty Dhillon DO documented in this encounter [facility] 07-31-2024 History of Present illness Narrative Reason for Appointment: Patient ID: Samantha Benjamin is a 29 y.o. female who presents for Routine Visit Patient presents today for Return OB appointment. MEDICATIONS Current Outpatient Medications Medication Instructions Alcohol Swabs (Alcohol Prep Pad) 70 % pads 1 Pad, Topical, Daily, Use four times daily to check FSBS. Blood Glucose Monitoring Suppl (D-Satmex Glucometer) w/Device kit 1 kit, Does not [...] LUIS F Tarango documented in this encounter [facility] 07-17-2024 History of Present illness Narrative Reason for Appointment: Patient ID: Samantha Benjamin is a 29 y.o. female who presents [...] Scotty Dhillon DO documented in this encounter [facility] 07-14-2024 History of Present [...] yes Have you been seen here at [facility] in a previous ? no Recent ER visits or hospitalizations? no Bring blood sugar log or meter with you today? (Please bring them with you for every visit at [facility]) no Flu vaccine (Jun-September)? no Any concerns that you would like me to mention to the provider today? no REASON FOR CONSULTATION: Maternal Essential hypertension. HISTORY OF PRESENT ILLNESS: Samantha Benjamin is a pleasant 29 y.o. G 2 [...] on ultrasound BMI 40.0-44.9, adult ([facility]) Past Medical History: Diagnosis Date Anxiety Chronic [...] evening., Disp: , Rfl: miscellaneous medical supply [facility], by miscellaneous route once., Disp: , Rfl: [...] and the other consultants, we search on [facility] and all the available care everywhere epic I did review all the imaging studies of the patient available on EMR, ordered by the primary care physician and the other car sales consultant HABITS: Patient activity no restrictions, diet [...] Other) Comment (BP CUFF SIZE): adult 11 Pulse 104 LMP 12/21/2023 . Gravid abdomen, [...] her 3 hour glucose tolerance test, refer [facility] for diabetes management.. 8. Patient came more than 1 hour late for her ultrasound appointment and therefore has been rescheduled at our [facility] site. DISPOSITION: At this point the patient is in complete care of her drawbridge tender. Patient does have ultrasound appointment scheduled with us. Thank you for allowing me to participate in Samantha Benjamin . If there any questions please do not hesitate to contact us. Sincerely, ANICETO FOX MD documented in this encounter [facility] [employer] 06-15-2024 History of Present illness Narrative Reason for Appointment: Patient ID: Samantha Benjamin is a 29 y.o. female who presents [...] LUIS F Tarango documented in this encounter [facility] 05-18-2024 History of Present illness Narrative Reason for Appointment: Patient ID: Samantha Benjamin is a 29 y.o. female who presents [...] nursing note reviewed. Exam conducted with a it investment/portfolio manager present. Vitals: Estimated body mass index is [...] have drawn at [facility] in [place]. Documented by Angela Butt LPN on behalf of: Scotty Dhillon DO documented in this encounter [facility] 04-20-2024 History of Present illness Narrative Reason for Appointment: Patient ID: Samantha Benjamin is a 29 y.o. female who presents [...] LUIS F Tarango documented in this encounter [facility] 03-22-2024 History of Present illness Narrative Reason for Appointment: Patient ID: Samantha Benjamin is a 29 y.o. female who presents [...] nursing note reviewed. Exam conducted with a it investment/portfolio manager present. Vitals: Estimated body mass index is [...] undercooked meat, and stay away from [facility]. Patient has been consulted regarding any [...] Scotty Dhillon DO documented in this encounter [facility] 02-05-2021 Note OPERATIVE NOTE OPERATION DATE: 02-06-21 ANESTHETIC:Spinal with [employer]am[employer]. PATIENT ACCESS REGISTRAR:ELVIA Prajapati PREOPERATIVE DIAGNOSIS: 1. Intrauterine at 37 [...] to the Recovery Room in stable condition. [facility] Signed and Approved by: DR SCOTTY DHILLON . 02/11/2021 11:15:00 [facility] 02-05-2021 Note DISCHARGE SUMMARY Discharge Date: [...] Tylenol, any abdominal pain unrelieved with narcotics. [facility] Signed and Approved by: DR SCOTTY DHILLON . 02/25/2021 23:13:00 [facility] Evaluation note No assessment inform ation available [facility] Work Phone: Evaluation note [...] Chronic hypertension affecting [facility] Diagnosis Third trimester state, incidental 28 weeks gestation of Gestational diabetes mellitus (GDM) in third trimester, gestational diabetes method of control unspecified Hypertension, unspecified type ([facility]) Gestational diabetes mellitus (GDM), antepartum, gestational diabetes [...] unspecified Chronic hypertension affecting BMI 40.0-44.9, adult ([facility]) arrhythmia affecting , antepartum Abnormality in heart [...] be sent through Care Everywhere. * Preeclampsia ([place]) * labor ([place]) documented in [facility] SystemInstructionsNot on file documented in this encounterProMedipr Health SystemInstructionsNot on file documented in this [facility]Pro[facility] Summary Purpose Family History No Family [...] and content) DATE CREATED AUTHOR 10/15/2021 [facility] DATE CREATED AUTHOR AUTHOR'S ORGANIZ ATION 02/19/2024 [facility] DATE CREATED AUTHOR AUTHOR'S ORGANIZ ATION 07/17/2024 [facility] DATE CREATED AUTHOR AUTHOR'S ORGANIZ ATION 08/18/2024 [facility] DATE CREATED AUTHOR AUTHOR'S ORGANIZ ATION 08/18/2024 [facility] DATE CREATED AUTHOR AUTHOR'S ORGANIZ ATION 08/24/2024 [facility] EPIC Care Teams (unrecognized sec tion and content) Team Status: Active Member Role Status Dates Jacques Mccarthy MD Primary Care Provider Active Team Status: Inactive Member Role Status Dates Jacques Mccarthy MD Primary Care Provider Active Start: January 31, 2024 End: January 31, 2024 Terry Dudley DO Emergency Provider Active St art: January 31, 2024 End: January 31, 2024 Paint Prepper Relationship Specialty Start Date End Date Jacques Mccarthy MD [address] [place] [address] PCP - General Family Medicine 02/08/24 Paint Prepper Relationship Specialty Start Date End Date Jacques Mccarthy MD [address] [place] [address] PCP - General Family Medicine 02/08/24 Paint Prepper Relationship Specialty Start Date End Date Jacques Mccarthy MD PCP - General Family Medicine 10/07/20 Paint Prepper Relationship Specialty Start Date End Date Jacques Mccarthy MD [address] [place] [address] PCP - General Family Medicine 02/08/24 Paint Prepper Relationship Specialty Start Date End Date Jacques Mccarthy MD [address] [place] [facility] [address] PCP - General Family Medicine 02/08/24 Paint Prepper Relationship Specialty Start Date End Date Jacques Mccarthy MD [address] [place] [facility] [address] PCP - General Family Medicine 02/08/24 Paint Prepper Relationship Specialty Start Date End Date Jacques Mccarthy MD PCP - General Family Medicine 10/07/20 Paint Prepper Relationship Specialty Start Date End Date Jacques Mccarthy MD [address] [place] [facility] [address] PCP - General Family Medicine 02/08/24 Paint Prepper Relationship Specialty Start Date End Date Jacques Mccarthy MD [address] [place] [facility] [address] PCP - General Family Medicine 02/08/24 Paint Prepper Relationship Specialty Start Date End Date Jacques Mccarthy MD [address] [place] [facility] [address] PCP - General Family Medicine 02/08/24 Paint Prepper Relationship Specialty Start Date End Date Jacques Mccarthy MD [address] [place] [facility] [place] [address] PCP - General Family Medicine 02/08/24 Paint Prepper Relationship Specialty Start Date End Date Jacques Mccarthy MD [address] [place] [facility] [place] [address] PCP - General Family Medicine 02/08/24 Paint Prepper Relationship Specialty Start Date End Date Jacques Mccarthy MD [address] [place] [facility] [address] PCP - General Family Medicine 02/08/24 Paint Prepper Relationship Specialty Start Date End Date Jacques Mccarthy MD [address] [place] [facility] [address] PCP - General Family Medicine 02/08/24 Paint Prepper Relationship Specialty Start Date End Date Jacques Mccarthy MD [address] [place] [facility] [address] PCP - General Family Medicine 02/08/24 Paint Prepper Relationship Specialty Start Date End Date Jacques Mccarthy MD PCP - General Family Medicine 10/07/20 Paint Prepper Relationship Specialty Start Date End Date Jacques Mccarthy MD PCP - General Family Medicine 10/07/20 Paint Prepper Relationship Specialty Start Date End Date Jacques Mccarthy MD PCP - General Family Medicine 10/07/20 Paint Prepper Relationship Specialty Start Date End Date Jacques Mccarthy MD [address] [place] [facility] [place] [address] PCP - General Family Medicine 02/08/24 Goals [...] BE BASED ON THE PRIMARY CLINICAL RECORDS. [employer] [facility]. provides no warranty or guarantee of the accuracy or completeness of information in this document.
== END 2024-08-25 14:06 | disposition home or self-care (01) ==
PROVIDERS: PCP Family Medicine; Visit Provider Obstetrics & Gynecology
DX: O16.3 Unspecified maternal hypertension, third trimester (principal)
CPT/HCPCS: 93306

== ENCOUNTER 2024-08-28 01:17 | Outpatient (OUT) | payer OTHER, MEDICAID, SELFPAY ==
--- OUTSIDE RECORDS SUMMARY | 2024-08-28 01:22 | XMS_ITS | CCD ---
Author Organization [facility] ion [facility] Care Team Providers Care Agricultural Inspector Name Role Phone JACQUIE, DR FAJARDO [...] JACQUIE, DR FAJARDO Attending Unavailable JACQUIE, DR FJAARDO Admitting Unavailable MIGUEL ÁNGEL, DR HANNA Primary [...] DR FAJARDO Admitting Unavailable HOY, DR HANNA [facility] Care Unavailable JACQUIE, DR FAJARDO Consulting Unavailable JACQUIE, DR FAJARDO Attending Unavailable DAIANAY, DR HANNA [facility] Care Unavailable JACQUIE, DR FAJARDO Admitting Unavailable JACQUIE, DR FAJARDO Admitting Unavailable GARRET, DR IRINEO [place] Consulting Unavailable MIGUEL ÁNGEL, DR HANNA [facility] Care Unavailable JACQUIE, DR FAJARDO Attending Unavailable JACQUIE, DR FAJARDO Consulting Unavailable JACQUIE, DR FAJARDO Attending Unavailable MIGUEL ÁNGEL, DR HANNA [facility] Care Unavailable JACQUIE, DR FAJARDO Admitting Unavailable MD Jacques Mccarthy Primary Care Provider [phone] DO Terry Dudley Emergency Provider Terry Dudley Admitting Unavailable Terry Dudley Attending Unavailable Jacques Mccarthy Primary Care Unavailable Jacques Mccarthy MD Primary Care Provider [phone] Jacques Mccarthy MD Primary Care Provider [phone] ANICETO FOX Attending Unavailable SCOTTY DHILLON Referring [...] UA Negative Negative - 4(70) +++ mg/dL [facility] Blood, UA Positive Negative - 50 Hardeep/mcL [facility] Comment on above: trace-intact Clarity, UA Clear [facility] Color, UA Yellow [facility] Glucose, UA Negative Negative - 1999(110) ++++ mg/dL [facility] Interpretation and review of laboratory results Abnormal [facility] Ketones, UA Positive Negative - 160(16) ++++ mg/dL [facility] Comment on above: 40 Leukocytes, UA Negative Negative - 500+++ Renee/mcL [facility] Nitrite, UA Negative Negative - Positive [facility] pH, UA 6 5 - 9 [facility] Protein, UA Trace Negative - 1999(20) ++++ mg/dL [facility] Spec Grav, UA 1.02 1 - 1.03 [facility] Urobilinogen, UA 0.2 0.2 - 12 mg/dL [facility] ALL CBC WITH AUTO DIFFon BASOPHILS ABSOLUTE AUTO 0.1 [facility] Basophils/100 WBC (Bld) 0.3 % 0.2 - 2.0 % [facility] Eosinophils/100 WBC (Bld) 0.6 % Low 0.9 - 7.0 % [facility] Erythrocyte distribution width (RBC) [Ratio] 12.2 % 11.0 - 15.0 % [facility] Hematocrit (Bld) [Volume fraction] 36.7 % 36.0 - 48.0 % [facility] Hemoglobin (Bld) [Mass/Vol] 12.5 g/dL 12.0 - 16.0 g/dL [facility] IMMATURE GRANULOCYTES ABS AUTO 0.33 High [facility] Immature granulocytes/100 WBC (Bld) 2 % High 0.0 - 0.5 % [facility] Interpretation and review of laboratory results Abnormal [facility] LYMPHOCYTES ABSOLUTE AUTO 1.6 [facility] Lymphocytes/100 WBC (Bld) 9.9 % Low 20.5 - 60.0 % [facility] MCH (RBC) [Entitic mass] 29.7 pg 26.7 - 34.0 pg [facility] MCHC (RBC) [Mass/Vol] 34.1 g/dL 29.9 - 35.2 g/dL [facility] MCV (RBC) [Entitic vol] 87.2 fL 81.0 - 99.0 fL [facility] MONOCYTES ABSOLUTE AUTO 1 High [facility] Monocytes/100 WBC (Bld) 6.3 % 1.7 - 12.0 % [facility] NEUTROPHILS ABSOLUTE AUTO 13.2 High [facility] Neutrophils/100 WBC (Bld) 80.9 % High 43.0 - 75.0 % [facility] Platelet mean volume (Bld) [Entitic vol] 10.5 fL 9.5 - 13.5 fL [facility] EO # 0.1 [facility] PLT 247 [facility] RBC 4.21 [facility] WBC 16.3 High [facility] ALL CBC WITH AUTO DIFFon BASOPHILS ABSOLUTE AUTO 0.1 [facility] Basophils/100 WBC (Bld) 0.3 % 0.2 - 2.0 % [facility] Eosinophils/100 WBC (Bld) 0.2 % Low 0.9 - 7.0 % [facility] Erythrocyte distribution width (RBC) [Ratio] 12.1 % 11.0 - 15.0 % [facility] Hematocrit (Bld) [Volume fraction] 35.3 % Low 36.0 - 48.0 % [facility] Hemoglobin (Bld) [Mass/Vol] 12.1 g/dL 12.0 - 16.0 g/dL [facility] IMMATURE GRANULOCYTES ABS AUTO 0.31 High [facility] Immature granulocytes/100 WBC (Bld) 1.7 % High 0.0 - 0.5 % [facility] Interpretation and review of laboratory results Abnormal [facility] LYMPHOCYTES ABSOLUTE AUTO 1.4 [facility] Lymphocytes/100 WBC (Bld) 7.9 % Low 20.5 - 60.0 % [facility] MCH (RBC) [Entitic mass] 29.8 pg 26.7 - 34.0 pg [facility] MCHC (RBC) [Mass/Vol] 34.3 g/dL 29.9 - 35.2 g/dL [facility] MCV (RBC) [Entitic vol] 86.9 fL 81.0 - 99.0 fL [facility] MONOCYTES ABSOLUTE AUTO 1.3 High [facility] Monocytes/100 WBC (Bld) 7.1 % 1.7 - 12.0 % [facility] NEUTROPHILS ABSOLUTE AUTO 15.1 High [facility] Neutrophils/100 WBC (Bld) 82.8 % High 43.0 - 75.0 % [facility] Platelet mean volume (Bld) [Entitic vol] 10.5 fL 9.5 - 13.5 fL [facility] EO # 0 [facility] PLT 217 [facility] RBC 4.06 Low [facility] WBC 18.2 High [facility] UA (CLEAN/CATCH) BOW MAKER/KEYLA RO IF IND.on 08-04-2024 BILIRUBIN URINE Negative NEGATIVE [facility] BLOOD URINE Negative NEGATIVE [facility] Clarity (U) CLEAR CLEAR [facility] Color (U) YELLOW YELLOW [facility] GLUCOSE URINE UA 500 mg/dL Abnormal NEGATIVE [facility] Interpretation and review of laboratory results Abnormal [facility] Ketones Ql (U) Negative NEGATIVE mg/dL [facility] Leukocyte esterase Test strip Ql (U) Negative NEGATIVE [facility] NITRITE URINE Negative NEGATIVE [facility] pH (U) 6.0 [pH] 5.0 - 9.0 [facility] PROTEIN URINE Negative NEG/TRACE mg/dL [facility] SPECIFIC GRAVITY URINE 1.025 1.005 - 1.025 [facility] URINE MICROSCOPIC INDICATED NO [facility] UROBILINOGEN URINE 0.2 EU/dL 0.2 - 1.0 EU/dL [facility] Urinalysis macro (dipstick) panel (U)on 07-31-2024 Bilirubin, UA Negative Negative - 4(70) +++ mg/dL [facility] Blood, UA Positive Negative - 50 Hardeep/mcL [facility] Comment on above: small Clarity, UA Clear [facility] Color, UA Yellow [facility] Glucose, UA Positive Negative - 1999(110) ++++ mg/dL [facility] Comment on above: 250 Interpretation and review of laboratory results Abnormal [facility] Ketones, UA Negative Negative - 160(16) ++++ mg/dL [facility] Leukocytes, UA Negative Negative - 500+++ Renee/mcL [facility] Nitrite, UA Negative Negative - Positive [facility] pH, UA 6 5 - 9 [facility] Protein, UA Trace Negative - 1999(20) ++++ mg/dL [facility] Spec Grav, UA 1.02 1 - 1.03 [facility] Urobilinogen, UA 0.2 0.2 - 12 mg/dL [facility] Urinalysis macro (dipstick) panel (U)on 07-17-2024 Bilirubin, UA Negative Negative - 4(70) +++ mg/dL [facility] Blood, UA Negative Negative - 50 Hardeep/mcL [facility] Clarity, UA Clear [facility] Color, UA Yellow [facility] Glucose, UA Positive Negative - 1999(110) ++++ mg/dL [facility] Comment on above: 500 Interpretation and review of laboratory results Abnormal [facility] Ketones, UA Positive Negative - 160(16) ++++ mg/dL [facility] Comment on above: TRACE Leukocytes, UA Negative Negative - 500+++ Renee/mcL [facility] Nitrite, UA Negative Negative - Positive [facility] pH, UA 5.5 5 - 9 [facility] Protein, UA Negative Negative - 1999(20) ++++ mg/dL [facility] Spec Grav, UA 1.02 1 - 1.03 [facility] Urobilinogen, UA 0.2 0.2 - 12 mg/dL [facility] Glucose random or fasting- P OCTon 07-14-2024 External Glucose Fasting Or Random (Fbs) 169 [facility] ALL CBC WITH AUTO DIFFon BASOPHILS ABSOLUTE AUTO 0.1 [facility] Basophils/100 WBC (Bld) 0.3 % 0.2 - 2.0 % [facility] Eosinophils/100 WBC (Bld) 0.3 % Low 0.9 - 7.0 % [facility] Erythrocyte distribution width (RBC) [Ratio] 12.1 % 11.0 - 15.0 % [facility] Hematocrit (Bld) [Volume fraction] 37.3 % 36.0 - 48.0 % [facility] Hemoglobin (Bld) [Mass/Vol] 12.7 g/dL 12.0 - 16.0 g/dL [facility] IMMATURE GRANULOCYTES ABS AUTO 0.32 High [facility] Immature granulocytes/100 WBC (Bld) 1.8 % High 0.0 - 0.5 % [facility] Interpretation and review of laboratory results Abnormal [facility] LYMPHOCYTES ABSOLUTE AUTO 1.5 [facility] Lymphocytes/100 WBC (Bld) 8.3 % Low 20.5 - 60.0 % [facility] MCH (RBC) [Entitic mass] 30.3 pg 26.7 - 34.0 pg [facility] MCHC (RBC) [Mass/Vol] 34 g/dL 29.9 - 35.2 g/dL [facility] MCV (RBC) [Entitic vol] 89 fL 81.0 - 99.0 fL [facility] MONOCYTES ABSOLUTE AUTO 0.9 High [facility] Monocytes/100 WBC (Bld) 5.2 % 1.7 - 12.0 % [facility] NEUTROPHILS ABSOLUTE AUTO 15 High [facility] Neutrophils/100 WBC (Bld) 84.1 % High 43.0 - 75.0 % [facility] Platelet mean volume (Bld) [Entitic vol] 10.4 fL 9.5 - 13.5 fL [facility] EO # 0.1 [facility] PLT 255 [facility] RBC 4.19 Low [facility] WBC 17.8 High [facility] Urinalysis macro (dipstick) panel (U)on 06-15-2024 Bilirubin, UA Negative Negative - 4(70) +++ mg/dL [facility] Blood, UA Negative Negative - 50 Hardeep/mcL [facility] Clarity, UA Clear [facility] Color, UA Yellow [facility] Glucose, UA Positive Negative - 2000(110) ++++ mg/dL [facility] Interpretation and review of laboratory results Abnormal [facility] Ketones, UA Negative Negative - 160(16) ++++ mg/dL [facility] Leukocytes, UA Positive Negative - 500+++ Renee/mcL [facility] Nitrite, UA Negative Negative - Positive [facility] pH, UA 5.5 5 - 9 [facility] Protein, UA Negative Negative - 1999(20) ++++ mg/dL [facility] Spec Grav, UA 1.02 1 - 1.03 [facility] Urobilinogen, UA 1.0 0.2 - 12 mg/dL [facility] Urinalysis macro (dipstick) panel (U)on 05-18-2024 Bilirubin, UA Negative Negative - 4(70) +++ mg/dL [facility] Blood, UA Negative Negative - 50 Hardeep/mcL [facility] Clarity, UA Clear [facility] Color, UA Yellow [facility] Glucose, UA Negative Negative - 1999(110) ++++ mg/dL [facility] Interpretation and review of laboratory results Normal [facility] Ketones, UA Negative Negative - 160(16) ++++ mg/dL [facility] Leukocytes, UA Negative Negative - 500+++ Renee/mcL [facility] Nitrite, UA Negative Negative - Positive [facility] pH, UA 7 5 - 9 [facility] Protein, UA Negative Negative - 1999(20) ++++ mg/dL [facility] Spec Grav, UA 1.025 1 - 1.03 [facility] Urobilinogen, UA 0.2 0.2 - 12 mg/dL [facility] Urinalysis macro (dipstick) panel (U)on 04-20-2024 Bilirubin, UA Positive Negative - 4(70) +++ mg/dL [facility] Comment on above: small Blood, UA Negative Negative - 50 Hardeep/mcL [facility] Clarity, UA Clear [facility] Color, UA Yellow [facility] Glucose, UA Negative Negative - 1999(110) ++++ mg/dL [facility] Interpretation and review of laboratory results Abnormal [facility] Ketones, UA Positive Negative - 160(16) ++++ mg/dL [facility] Comment on above: trace Leukocytes, UA Negative Negative - 500+++ Renee/mcL [facility] Nitrite, UA Negative Negative - Positive [facility] pH, UA 6.5 5 - 9 [facility] Protein, UA Trace Negative - 2000(20) ++++ mg/dL [facility] Spec Grav, UA 1.030 1 - 1.03 [facility] Urobilinogen, UA 1.0 0.2 - 12 mg/dL [facility] Activated partial thrombopla stin time (aPTT) in platelet poor plasma by coagulation aOrdered By: Terry Dudley on 01-31-2024 aPTT Coag (PPP) [Time] 26.1 s 25.1-36.5 [facility] Comment on above: A hematocrit value g reater than 55% may lead to inaccurate results in coagulation testing. Patients having hematocrit values >55% require a special collection tube for coagulation studies. Please contact the laboratory at [phone] for redraw instructions. Alanine aminotransferase [En zymatic activity/volume] in Serum or PlasmaOrdered By: Terry Dudley on 01-31-2024 ALT [Catalytic activity/Vol] 22 U/L Normal 7-52 [facility] Comment on above: Performed By: #### H S TROP, PTT, CMP, DDIMER, BNP, CK, PT, CBC #### [facility] [address] [place] [id number] [place] Albumin [Mass/volume] in Ser um or Plasma by Bromocresol green (BCG) dye binding methoOrdered By: Terry Dudley on 01-31-2024 Albumin BCG dye [Mass/Vol] 4.7 g/dL 3.5-5.7 [facility] Alkaline phosphatase [Enzyma tic activity/volume] in Serum or PlasmaOrdered By: Terry Dudley on 01-31-2024 ALP [Catalytic activity/Vol] 67 U/L Normal 34-104 [facility] Comment on above: Performed By: #### H S TROP, PTT, CMP, DDIMER, BNP, CK, PT, CBC #### [facility] [address] [place] [id number] [place] Aspartate aminotransferase [ Enzymatic activity/volume] in Serum or PlasmaOrdered By: Terry Dudley on 01-31-2024 AST [Catalytic activity/Vol] 17 U/L Normal 13-39 [facility] Comment on above: Performed By: #### H S TROP, PTT, CMP, DDIMER, BNP, CK, PT, CBC #### [address] Automated basophil %Ordered By: Terry Dudley on 01-31-2024 Basophils/100 WBC (Bld) 0.6 % Normal . [facility] Comment on above: Performed By: #### H S TROP, PTT, CMP, DDIMER, BNP, CK, PT, CBC #### [address] Automated basophil countOrde red By: Terry Dudley on 01-31-2024 Basophils (Bld) [#/Vol] 0.1 10*3/uL Normal 0.0-0.2 [facility] Comment on above: Result Comment: PERF ORMED BY: [place] [address] PATHOLOGIST [employer] CARLOS HITCHCOCK M.D. Performed By: #### H S TROP, PTT, CMP, DDIMER, BNP, CK, PT, CBC #### [address] Automated blood monocyte cou ntOrdered By: Terry Dudley on 01-31-2024 Monocytes (Bld) [#/Vol] 1.3 10*3/uL High 0.0-0.8 [facility] Comment on above: Performed By: #### H S TROP, PTT, CMP, DDIMER, BNP, CK, PT, CBC #### [address] Automated eosinophil %Ordere d By: Terry Dudley on 01-31-2024 Eosinophils/100 WBC (Bld) 0.3 % Normal . [facility] Comment on above: Performed By: #### H S TROP, PTT, CMP, DDIMER, BNP, CK, PT, CBC #### [address] Automated eosinophil countOr dered By: Terry Dudley on 01-31-2024 Eosinophils (Bld) [#/Vol] 0.1 10*3/uL Normal 0.0-0.45 [facility] Comment on above: Performed By: #### H S TROP, PTT, CMP, DDIMER, BNP, CK, PT, CBC #### [address] Automated monocyte %Ordered By: Terry Dudley on 01-31-2024 Monocytes/100 WBC (Bld) 7.5 % Normal . [facility] Comment on above: Performed By: #### H S TROP, PTT, CMP, DDIMER, BNP, CK, PT, CBC #### [address] Automated neutrophil %Ordere d By: Terry Dudley on 01-31-2024 Neutrophils/100 WBC (Bld) 79.8 % Normal . [facility] Comment on above: Performed By: #### H S TROP, PTT, CMP, DDIMER, BNP, CK, PT, CBC #### [address] BNP ser/plasOrdered By: Delgado Dudley on 01-31-2024 Natriuretic peptide B (Bld) [Mass/Vol] 30.0 pg/mL Normal 5-100 [facility] Comment on above: Result Comment: PERF ORMED BY: [place] [address] PATHOLOGIST [employer] CARLOS HITCHCOCK M.D. Performed By: #### H S TROP, PTT, CMP, DDIMER, BNP, CK, PT, CBC #### [address] Bilirubin Test strip Ql (U)O rdered By: Terry Dudley on 01-31-2024 Bilirubin Ql (U) Negative Negative [facility] Bilirubin.total [Mass/volume ] in Serum or PlasmaOrdered By: Terry Dudley on 01-31-2024 Bilirubin [Mass/Vol] 0.5 mg/dL Normal 0.3-1.0 [facility] Comment on above: Performed By: #### H S TROP, PTT, CMP, DDIMER, BNP, CK, PT, CBC #### [facility] [address] Calcium [Mass/volume] in Ser um or PlasmaOrdered By: Terry Dudley on 01-31-2024 Calcium [Mass/Vol] 9.6 mg/dL Normal 8.6-10.3 [facility] Comment on above: Performed By: #### H S TROP, PTT, CMP, DDIMER, BNP, CK, PT, CBC #### [address] Carbon dioxide, total [Moles /volume] in Serum or PlasmaOrdered By: Terry Dudley on 01-31-2024 CO2 [Moles/Vol] 30.1 mmol/L Normal 21.0-31.0 [facility] Comment on above: Performed By: #### H S TROP, PTT, CMP, DDIMER, BNP, CK, PT, CBC #### [address] Chloride [Moles/volume] in S marty or PlasmaOrdered By: Terry Dudley on 01-31-2024 Chloride [Moles/Vol] 101 mmol/L Normal 98-107 [facility] Comment on above: Performed By: #### H S TROP, PTT, CMP, DDIMER, BNP, CK, PT, CBC #### [address] Color of Urine by AutoOrdere d By: Terry Dudley on 01-31-2024 Color (U) Colorless Normal Yellow [facility] Comment on above: Order Comment: Name Collection Type:: Clean-Voided Midstream Performed By: #### U A, UHCG #### [address] Complete Blood Count Auto Di ffon 01-31-2024 Mean Corpuscular HGB Conc 34.6 g/dL Normal 32.0-35.0 [facility] Comment on above: Performed By: #### H S TROP, PTT, CMP, DDIMER, BNP, CK, PT, CBC #### [place] [address] [place] Monocytes/100 WBC (Bld) 14.85 % Normal 0.00-20.00 [facility] Comment on above: Performed By: #### H S TROP, PTT, CMP, DDIMER, BNP, CK, PT, CBC #### [address] NRBC% 0.0 /100{WBC} Normal 0-0.5 [facility] Comment on above: Performed By: #### H S TROP, PTT, CMP, DDIMER, BNP, CK, PT, CBC #### [address] Comprehensive Metabolic Pane urszula 01-31-2024 Albumin [Mass/Vol] 4.7 g/dL Normal 3.5-5.7 [facility] Comment on above: Performed By: #### H S TROP, PTT, CMP, DDIMER, BNP, CK, PT, CBC #### [address] Creatinine Clr Calc Pharmacy 119.17 Normal [facility] Comment on above: Result Comment: PERF ORMED BY: [place] [address] PATHOLOGIST [employer] CARLOS HITCHCOCK M.D. Performed By: #### H S TROP, PTT, CMP, DDIMER, BNP, CK, PT, CBC #### [address] GFR/1.73 sq M.predicted MDRD (S/P/Bld) [Vol rate/Area] mL/min/{1.73_m2} Normal [facility] Comment on above: Performed By: #### H S TROP, PTT, CMP, DDIMER, BNP, CK, PT, CBC #### [address] Creatine kinase [Enzymatic a ctivity/volume] in Serum or PlasmaOrdered By: Terry Dudley on 01-31-2024 CK [Catalytic activity/Vol] 76 U/L Normal 30-223 [facility] Comment on above: Performed By: #### H S TROP, PTT, CMP, DDIMER, BNP, CK, PT, CBC #### [place] [id number] [facility] Creatinine [Mass/volume] in Serum or PlasmaOrdered By: Terry Dudley on 01-31-2024 Creatinine [Mass/Vol] 0.80 mg/dL Normal 0.60-1.20 [facility] Comment on above: Performed By: #### H S TROP, PTT, CMP, DDIMER, BNP, CK, PT, CBC #### [place] [id number] [facility] D-Dimer High Sensitivityon 0 01-31-2024 D-Dimer High Sensitivity < 200 Normal 0-243 [facility] Comment on above: Result [...] coagulation studies. Please contact the laboratory at [phone] for redraw instructions. PERFORMED BY: [place] [address] PATHOLOGIST [employer] CARLOS HITCHCOCK M.D. Performed By: #### H S TROP, PTT, CMP, DDIMER, BNP, CK, PT, CBC #### [address] [id number] [facility] ECG 12 lead ECGon 01-31-2024 ECG 12 lead ECG [facility] [place] [address] [place] [id number] Electrocardiograph Report Signed Patient: Saamntha Benjamin MR#: [id number] : 1995 Acct:[id number] Age/Sex: 28 / F ADM Date: 01/31/24 Loc: ER Room: Type: [facility] ER Attending Dr: Ordering [...] By Terry Dudley DO 1923 Normal [facility] Erythrocyte distribution wid th [Ratio] by Automated countOrdered By: Terry Dudley on 01-31-2024 Erythrocyte distribution width (RBC) [Ratio] 12.4 % Normal 11.9-15.3 [facility] Comment on above: Performed By: #### H S TROP, PTT, CMP, DDIMER, BNP, CK, PT, CBC #### [facility] [address] [place] [address] [place] Erythrocytes [#/volume] in B lood by Automated countOrdered By: Terry Dudley on 01-31-2024 RBC (Bld) [#/Vol] 4.93 10*6/uL Normal 3.60-5.00 [facility] Comment on above: Performed By: #### H S TROP, PTT, CMP, DDIMER, BNP, CK, PT, CBC #### [facility] [address] Fibrin D-dimer [Presence] in Platelet poor plasma by Latex agglutinationOrdered By: Terry Dudley on 01-31-2024 Fibrin D-dimer LA Ql (PPP) < 200 ng/mL 0-243 [facility] Comment on above: The reference range [...] coagulation studies. Please contact the laboratory at [phone] for redraw instructions. Glucose [Mass/volume] in Ser um or PlasmaOrdered By: Terry Dudley on 01-31-2024 Glucose [Mass/Vol] 91 mg/dL Normal 70-100 [facility] Comment on above: ADA recommended refe rence rangeRandom Glucose Reference Range is dependent on time and content of last meal. Glucose of more than 200 mg/dL in a nonstressed, ambulatory subject supports the diagnosis of Diabetes Mellitus. Result Comment: [place] om Glucose Reference Range is dependent on time and content of last meal. Glucose of more than 200 mg/dL in a nonstressed, ambulatory subject supports the diagnosis of Diabetes Mellitus. ADA recommended reference range Performed By: #### H S TROP, PTT, CMP, DDIMER, BNP, CK, PT, CBC #### [address] Glucose [Mass/volume] in Uri ne by Test stripOrdered By: Terry Dudley on 01-31-2024 Glucose Test strip (U) [Mass/Vol] Normal mg/dL Normal [facility] HCG ( test) IA.rapi d Ql (U)Ordered By: Terry Dudley on 01-31-2024 HCG ( test) Ql (U) Positive High [facility] HCG,Urineon 01-31-2024 Beta HCG ( test) Ql (U) Positive High [facility] Comment on above: Order Comment: Name Collection Type:: Clean-Voided Midstream Result Comment: PERF ORMED BY: [facility] [address] [place] [address] PATHOLOGIST [employer] CARLOS HITCHCOCK M.D. Performed By: #### H S TROP, PTT, CMP, DDIMER, BNP, CK, PT, CBC #### [facility] [address] Hematocrit [Volume Fraction] of Blood by Automated countOrdered By: Terry Dudley on 01-31-2024 Hematocrit (Bld) [Volume fraction] 45.1 % Normal 34.0-46.4 [facility] Comment on above: Performed By: #### H S TROP, PTT, CMP, DDIMER, BNP, CK, PT, CBC #### [facility] [address] Hemoglobin Test strip Ql (U) Ordered By: Terry Dudley on 01-31-2024 Hemoglobin Ql (U) Negative Negative [facility] Hemoglobin [Mass/volume] in BloodOrdered By: Terry Dudley on 01-31-2024 Hemoglobin (Bld) [Mass/Vol] 15.6 g/dL High 11.8-15.4 [facility] Comment on above: Performed By: #### H S TROP, PTT, CMP, DDIMER, BNP, CK, PT, CBC #### [facility] [address] INR in Platelet poor plasma by Coagulation assayOrdered By: Terry Dudley on 01-31-2024 INR Coag (PPP) [Relative time] 1.2 {INR} Normal [facility] Comment on above: INR Therapeutic Rang [...] CMP, DDIMER, BNP, CK, PT, CBC #### [facility] [address] Ketones [Presence] in Urine by Test stripOrdered By: Terry Dudley on 01-31-2024 Ketones Ql (U) Negative Normal Negative [facility] Comment on above: Order Comment: Name Collection Type:: Clean-Voided Midstream Performed By: #### U A, UHCG #### [address] Leukocyte esterase [Presence ] in Urine by Test stripOrdered By: Terry Dudley on 01-31-2024 Leukocyte esterase Test strip Ql (U) Negative Normal Negative [facility] Comment on above: Order Comment: Name Collection Type:: Clean-Voided Midstream Performed By: #### U A, UHCG #### [address] Leukocytes [#/volume] correc edna for nucleated erythrocytes in Blood by Automated counOrdered By: Terry Dudley on 01-31-2024 WBC corrected for nucl RBC Auto (Bld) [#/Vol] 17.5 10*3/uL High 3.8-11.6 [facility] Leukocytes [#/volume] in Blo od by Automated countOrdered By: Terry Dudley on 01-31-2024 WBC (Bld) [#/Vol] 17.5 10*3/uL High 3.8-11.6 [facility] Comment on above: Performed By: #### H S TROP, PTT, CMP, DDIMER, BNP, CK, PT, CBC #### [address] Lymphocytes [#/volume] in Bl ood by Automated countOrdered By: Terry Dudley on 01-31-2024 Lymphocytes (Bld) [#/Vol] 2.1 10*3/uL Normal 1.00-4.8 [facility] Comment on above: Performed By: #### H S TROP, PTT, CMP, DDIMER, BNP, CK, PT, CBC #### [facility] [address] [place] [address] Lymphocytes/100 leukocytes i n Blood by Automated countOrdered By: Terry Dudley on 01-31-2024 Lymphocytes/100 WBC (Bld) 11.8 % Normal . [facility] Comment on above: Performed By: #### H S TROP, PTT, CMP, DDIMER, BNP, CK, PT, CBC #### [facility] [address] MCH [Entitic mass] by Automa edna countOrdered By: Terry Dudley on 01-31-2024 MCH (RBC) [Entitic mass] 31.7 pg Normal 24.7-34.3 [facility] Comment on above: Performed By: #### H S TROP, PTT, CMP, DDIMER, BNP, CK, PT, CBC #### [address] MCHC Auto (RBC) [Mass/Vol]Or dered By: Terry Dudley on 01-31-2024 MCHC (RBC) [Mass/Vol] 34.6 g/dL 32.0-35.0 [facility] MCV [Entitic volume] by Auto mated countOrdered By: Terry Dudley on 01-31-2024 MCV (RBC) [Entitic vol] 91.4 fL Normal 80-100 [facility] Comment on above: Performed By: #### H S TROP, PTT, CMP, DDIMER, BNP, CK, PT, CBC #### [address] Monocyte distribution width [Entitic volume] in Blood by AutomatedOrdered By: Terry Dudley on 01-31-2024 Monocyte distribution width Auto (Bld) [Entitic vol] 14.85 % 0.00-20.00 [facility] Neutrophils [#/volume] in Bl ood by Automated countOrdered By: Terry Dudley on 01-31-2024 Neutrophils (Bld) [#/Vol] 14.0 10*3/uL High 1.8-7.7 [facility] Comment on above: Performed By: #### H S TROP, PTT, CMP, DDIMER, BNP, CK, PT, CBC #### [facility] [address] Nitrite Test strip Ql (U)Ord ered By: Terry Dudley on 01-31-2024 Nitrite Ql (U) Negative Negative [facility] No Panel InformationOrdered By: Terry Dudley on 01-31-2024 Estimated GFR (CKD-EPI) > 60.0 mL/Min [facility] Creatinine Clearance (Chem 119.17 [facility] Nucleated erythrocytes [Pres ence] in Blood by Automated countOrdered By: Terry Dudley on 01-31-2024 Nucleated RBC Auto Ql (Bld) 0.0 /100{WBC} 0-0.5 [facility] Partial Thromboplastin Timeo n 01-31-2024 aPTT Coag (Bld) [Time] 26.1 s Normal 25.1-36.5 [facility] Comment on above: Result Comment: A he matocrit value greater than 55% may lead to inaccurate results in coagulation testing. Patients having hematocrit values >55% require a special collection tube for coagulation studies. Please contact the laboratory at [phone] for redraw instructions. Performed By: #### H S TROP, PTT, CMP, DDIMER, BNP, CK, PT, CBC #### [facility] [address] [place] [address] Platelet mean volume [Entiti c volume] in Blood by Automated countOrdered By: Terry Dudley on 01-31-2024 Platelet mean volume (Bld) [Entitic vol] 8.7 fL Normal 6.3-10.7 [facility] Comment on above: Performed By: #### H S TROP, PTT, CMP, DDIMER, BNP, CK, PT, CBC #### [facility] [address] Platelets [#/volume] in Bloo d by Automated countOrdered By: Terry Dudley on 01-31-2024 Platelets (Bld) [#/Vol] 297 10*3/uL Normal 150-450 [facility] Comment on above: Performed By: #### H S TROP, PTT, CMP, DDIMER, BNP, CK, PT, CBC #### [facility] [address] Potassium [Moles/volume] in Serum or PlasmaOrdered By: Terry Dudley on 01-31-2024 Potassium [Moles/Vol] 3.4 mmol/L Low 3.5-5.1 [facility] Comment on above: Performed By: #### H S TROP, PTT, CMP, DDIMER, BNP, CK, PT, CBC #### [facility] [address] [place], [place] [address] Protein Test strip (U) [Mass /Vol]Ordered By: Terry Dudley on 01-31-2024 Protein (U) [Mass/Vol] Negative Negative [facility] Protein [Mass/volume] in Ser um or PlasmaOrdered By: Terry Dudley on 01-31-2024 Protein [Mass/Vol] 7.7 g/dL Normal 6.4-8.9 [facility] Comment on above: Performed By: #### H S TROP, PTT, CMP, DDIMER, BNP, CK, PT, CBC #### [facility] [address] [place] [id number] [facility] Prothrombin time (PT)Ordered By: Terry Dudley on 01-31-2024 PT Coag (PPP) [Time] 14.0 s High 9.0-12.9 [facility] Comment on above: A hematocrit value g reater than 55% may lead to inaccurate results in coagulation testing. Patients having hematocrit values >55% require a special collection tube for coagulation studies. Please contact the laboratory at [phone] for redraw instructions. Result Comment: A he matocrit value greater than 55% may lead to inaccurate results in coagulation testing. Patients having hematocrit values >55% require a special collection tube for coagulation studies. Please contact the laboratory at [phone] for redraw instructions. Performed By: #### H S TROP, PTT, CMP, DDIMER, BNP, CK, PT, CBC #### [facility] [address] [place] [id number] [facility] Serum globulin measurement b y calculation (mass/volume)Ordered By: Terry Dudley on 01-31-2024 Globulin (S) [Mass/Vol] 3.0 g/dL Normal [facility] Comment on above: Performed By: #### H S TROP, PTT, CMP, DDIMER, BNP, CK, PT, CBC #### [facility] [address] [place] [address] Serum or plasma albumin/glob ulin mass ratioOrdered By: Terry Dudley on 01-31-2024 Albumin/Globulin [Mass ratio] 1.6 {ratio} [facility] Comment on above: Performed By: #### H S TROP, PTT, CMP, DDIMER, BNP, CK, PT, CBC #### [address] Serum or plasma anion gap de terminationOrdered By: Terry Dudley on 01-31-2024 Anion gap [Moles/Vol] 8.3 mmol/L Normal 6.0-15.0 [facility] Comment on above: Performed By: #### H S TROP, PTT, CMP, DDIMER, BNP, CK, PT, CBC #### [address] Sodium [Moles/volume] in Ser um or PlasmaOrdered By: Terry Dudley on 01-31-2024 Sodium [Moles/Vol] 136 mmol/L Normal 136-145 [facility] Comment on above: Performed By: #### H S TROP, PTT, CMP, DDIMER, BNP, CK, PT, CBC #### [address] Specific gravity Test strip (U) [Rel density]Ordered By: Terry Dudley on 01-31-2024 Specific gravity (U) [Rel density] 1.005 1.001-1.03 0 [facility] Troponin I High Sensitivityo n 01-31-2024 Troponin I High Sensitivity 3.5 pg/mL Normal 0.0-15.0 [facility] Comment on above: Result Comment: PERF ORMED BY: [place] [address] PATHOLOGIST [employer] CARLOS HITCHCOCK M.D. Performed By: #### H S TROP, PTT, CMP, DDIMER, BNP, CK, PT, CBC #### [facility] [address] Troponin I.cardiac [Mass/vol ume] in Serum or Plasma by Detection limit <= 0.01 ng/Ordered By: Terry Dudley on 01-31-2024 Troponin I.cardiac DL <= 0.01 ng/mL [Mass/Vol] 3.5 pg/mL 0.0-15.0 [facility] Urea nitrogen [Mass/volume] in Serum or PlasmaOrdered By: Terry Dudley on 01-31-2024 Urea nitrogen [Mass/Vol] 10 mg/dL Normal 7-25 [facility] Comment on above: Performed By: #### H S TROP, PTT, CMP, DDIMER, BNP, CK, PT, CBC #### [address] Urinalysison 01-31-2024 Bilirubin,Urine Negative Normal Negative [facility] Comment on above: Order Comment: Name Collection Type:: Clean-Voided Midstream Performed By: #### U A, UHCG #### [address] Glucose Ql (U) Normal Normal Normal [facility] Comment on above: Order Comment: Name Collection Type:: Clean-Voided Midstream Performed By: #### U A, UHCG #### [place] [address] [place] Nitrite,Urine Negative Normal Negative [facility] Comment on above: Order Comment: Name Collection Type:: Clean-Voided Midstream Performed By: #### U A, UHCG #### [place] [id number] [place] Occult Blood,Urine Negative Normal Negative [facility] Comment on above: Order Comment: Name Collection Type:: Clean-Voided Midstream Performed By: #### U A, UHCG #### [place] [address] [place] Protein,Urine Negative Normal Negative [facility] Comment on above: Order Comment: Name Collection Type:: Clean-Voided Midstream Performed By: #### U A, UHCG #### [address] Specificy Lyles,Urine 1.005 Normal 1.001-1.03 0 [facility] Comment on above: Order Comment: Name Collection Type:: Clean-Voided Midstream Performed By: #### U A, UHCG #### [address] Urobilinogen,Urine Normal Normal Normal [facility] Comment on above: Order Comment: Name Collection Type:: Clean-Voided Midstream Performed By: #### U A, UHCG #### [address] Urine appearanceOrdered By: Terry Dudley on 01-31-2024 Appearance (U) Clear Normal Clear [facility] Comment on above: Order Comment: Name Collection Type:: Clean-Voided Midstream Performed By: #### U A, UHCG #### [address] Urobilinogen Test strip (U) [Mass/Vol]Ordered By: Terry Dudley on 01-31-2024 Urobilinogen (U) [Mass/Vol] Normal mg/dL Normal [facility] pH of Urine by Test stripOrd ered By: Terry Dudley on 01-31-2024 pH (U) 6.5 [pH] Normal 5.0-9.0 [facility] Comment on above: Order Comment: Name Collection Type:: Clean-Voided Midstream Performed By: #### U A, UHCG #### [address] PAP ACOG PANEL 2: 21 to 29on 10-14-2021 . . Normal [facility] Comment on above: Performed By: #### P TT #### [facility] [address] [address] Kaela Judie Age Gdln ACOG Testing 21-29 Normal [facility] Comment on above: Performed By: #### P TT #### [facility] [address] [address] Kaela Dimas DIAGNOSIS: Comment Normal [facility] Comment on above: Result Comment: NEGA TIVE FOR INTRAEPITHELIAL LESION OR MALIGNANCY. CELLULAR CHANGES ASSOCIATED WITH INFLAMMATION ARE PRESENT. Performed By: #### P TT #### [facility] [address] [place] [address] Kaela Dimas Methodology: Comment Normal [facility] Comment on above: Result Comment: This liquid based ThinPrep(R) pap test was screened with the use of an image guided system. Performed By: #### P TT #### [facility] [address] [place] [address] Kaela Dimas Note: Comment Normal [facility] Comment on above: Result Comment: The Pap smear is a screening test designed to aid in the detection of premalignant and malignant conditions of the uterine cervix. It is not a diagnostic procedure and should not be used as the sole means of detecting cervical cancer. Both false-positive and false-negative reports do occur. . Performed By: #### P TT #### [facility] [address] [place] [address] Kaela Dimas Performed by: Comment [facility] Comment on above: Result Comment: Nancy Collins, Weight Tester (ASCP) Performed By: #### P TT #### [facility] [address] [place] [address] Kaela Dimas Reflex Criteria: Comment Normal [facility] Comment on above: Result Comment: The HPV DNA reflex criteria were not met with this specimen result therefore, no HPV testing was performed. . Performed By: #### P TT #### [facility] [address] [place] [address] Kaela Dimas Specimen adequacy: Comment [facility] Comment on above: Result Comment: Sati sfactory for evaluation. Endocervical and/or squamous metaplastic cells (endocervical component) are present. Performed By: #### P TT #### [facility] [address] [place] [address] Kaela Judie CBC AUTO DIFFon 02-07-2021 BASO # 0.1 103/ul Normal 0.0-0.1 [facility] Comment on above: Performed By: #### C BC #### [facility] [address] [id number] Kaela Dimas Basophils/100 WBC (Bld) 0.3 % Normal 0.2-2.0 [facility] Comment on above: Performed By: #### C BC #### [facility] [address] [address] Kaela Judie EO # 0.1 103/ul Normal 0.0-0.7 [facility] Comment on above: Performed By: #### C BC #### [facility] [address] [place] [address] Kaela Judie Eosinophils/100 WBC (Bld) 0.5 % Critically low 0.9-7.0 [facility] Comment on above: Performed By: #### C BC #### [facility] [address] [place] [address] Kaela iDmas Erythrocyte distribution width (RBC) [Ratio] 12.3 % Normal 11.0-15.0 [facility] Comment on above: Performed By: #### C BC #### [facility] [address] [place] [address] Kaela Sahuen Hematocrit (Bld) [Volume fraction] 33.8 % Critically low 36.0-48.0 [facility] Comment on above: Performed By: #### C BC #### [facility] [address] [place] [address] Kaela Judie Hemoglobin (Bld) [Mass/Vol] 11.6 g/dL Critically low 12.0-16.0 [facility] Comment on above: Performed By: #### C BC #### [facility] [address] [place] [address] Kaela Judie IG # 0.20 10e3/ul Critically high 0.00-0.03 [facility] Comment on above: Performed By: #### C BC #### [facility] [address] [place] [address] Kaelastephanie Sahuen IG % 1.2 % Critically high 0.0-0.5 [facility] Comment on above: Performed By: #### C BC #### [facility] [address] [place] [address] Kaelastephanie Dimas LYMPH # 1.6 103/ul Normal 1.2-3.8 [facility] Comment on above: Performed By: #### C BC #### [facility] [address] [place], [place] [id number] Kaela Dimas Lymphocytes/100 WBC (Bld) 9.2 % Critically low 20.5-60.0 [facility] Comment on above: Performed By: #### C BC #### [facility] [address] [place] [address] Kaela Dimas MANUAL DIFF REQ NO Normal [facility] Comment on above: Performed By: #### C BC #### [facility] [address] [place] [address] Kaelastephanie Dimas MCH (RBC) [Entitic mass] 30.8 pg Normal 26.7-34.0 [facility] Comment on above: Performed By: #### C BC #### [facility] [address] [place] [address] Kaela Dimas MCHC (RBC) [Mass/Vol] 34.3 g/dL Normal 29.9-35.2 [facility] Comment on above: Performed By: #### C BC #### [facility] [address] [place] [address] Kaela Dimas MCV (RBC) [Entitic vol] 89.7 fL Normal 81.0-99.0 [facility] Comment on above: Performed By: #### C BC #### [facility] [address] [place], [place] [address] Kaela Judie MONO # 0.9 103/ul Critically high 0.3-0.8 [facility] Comment on above: Performed By: #### C BC #### [facility] [address] [place], [place] [address] Kaelastephanie Dimas Monocytes/100 WBC (Bld) 5.5 % Normal 1.7-12.0 [facility] Comment on above: Performed By: #### C BC #### [facility] [address] [place] [address] Kaela Dimas NEUT # 14.1 103/ul Critically high 1.4-6.5 [facility] Comment on above: Performed By: #### C BC #### [facility] [address] [place], [place] [address] Kaela Dimas Neutrophils/100 WBC (Bld) 83.3 % Critically high 43.0-75.0 [facility] Comment on above: Performed By: #### C BC #### [facility] [address] [place], [place] [address] Kaela Dimas Platelet mean volume (Bld) [Entitic vol] 11.0 fL Normal 9.5-13.5 [facility] Comment on above: Performed By: #### C BC #### [facility] [address] [place] [address] Kaela Dimas PLT 192 103/ul Normal 150-450 [facility] Comment on above: Performed By: #### C BC #### [facility] [address] [place], [place] [address] Kaela Dimas RBC 3.77 106/ul Critically low 4.20-5.40 [facility] Comment on above: Performed By: #### C BC #### [facility] [address] [place], [place] [address] Kaela Dimas WBC 16.9 103/ul Critically high 4.0-11.0 [facility] Comment on above: Performed By: #### C BC #### [facility] [address] [place] [address] Kaela Dimas ASYMPTOMATIC COVID-19 ANTIGE Non 02-05-2021 EUA Statement SEE BELOW Normal [facility] Comment on above: Result Comment: [...] sooner. Performed By: #### G TT3P #### [facility] [address] [place] [address] Kaela Dimas SARS-CoV-2 (COVID-19) RNA RIGOBERTO+probe Ql (Unsp spec) Negative Normal NEGATIVE [facility] Comment on above: Result Comment: Nega tive results are presumptive. They do not preclude infection and should not be used as the sole basis for treatment decisions. Additional confirmatory testing by a molecular method should be considered. Performed By: #### G TT3P #### [facility] [address] [place] [address] Kaela Dimas CBC AUTO DIFFon 02-05-2021 BASO # 0.1 103/ul Normal 0.0-0.1 [facility] Comment on above: Performed By: #### C BC #### [facility] [address] [place], [place] [address] Kaela Dimas Basophils/100 WBC (Bld) 0.3 % Normal 0.2-2.0 [facility] Comment on above: Performed By: #### C BC #### [facility] [address] [place] [address] Kaela Judie EO # 0.1 103/ul Normal 0.0-0.7 [facility] Comment on above: Performed By: #### C BC #### [facility] [address] [place], [place] [address] Kaela Judie Eosinophils/100 WBC (Bld) 0.3 % Critically low 0.9-7.0 [facility] Comment on above: Performed By: #### C BC #### [facility] [address] [place] [address] Kaela Dimas Erythrocyte distribution width (RBC) [Ratio] 12.0 % Normal 11.0-15.0 [facility] Comment on above: Performed By: #### C BC #### [facility] [address] [place] [address] Kaela Dimas Hematocrit (Bld) [Volume fraction] 36.9 % Normal 36.0-48.0 [facility] Comment on above: Performed By: #### C BC #### [facility] [address] [place] [address] Kaela Dimas Hemoglobin (Bld) [Mass/Vol] 12.7 g/dL Normal 12.0-16.0 [facility] Comment on above: Performed By: #### C BC #### [facility] [address] [place] [address] Kaela Dimas IG # 0.19 10e3/ul Critically high 0.00-0.03 [facility] Comment on above: Performed By: #### C BC #### [facility] [address] [place] [address] Kaela Dimas IG % 1.0 % Critically high 0.0-0.5 [facility] Comment on above: Performed By: #### C BC #### [facility] [address] [place] [address] Kaela Dimas LYMPH # 1.4 103/ul Normal 1.2-3.8 [facility] Comment on above: Performed By: #### C BC #### [facility] [address] [place] [address] Kaela Dimas Lymphocytes/100 WBC (Bld) 7.6 % Critically low 20.5-60.0 [facility] Comment on above: Performed By: #### C BC #### [facility] [address] [place] [address] Kaela Dimas MANUAL DIFF REQ NO Normal [facility] Comment on above: Performed By: #### C BC #### [facility] [address] [place] [address] Kaela Dimas MCH (RBC) [Entitic mass] 30.5 pg Normal 26.7-34.0 [facility] Comment on above: Performed By: #### C BC #### [facility] [address] [place], [place] [address] Kaela Dimas MCHC (RBC) [Mass/Vol] 34.4 g/dL Normal 29.9-35.2 [facility] Comment on above: Performed By: #### C BC #### [facility] [address] [place], [place] [address] Kaelastephanie Dimas MCV (RBC) [Entitic vol] 88.5 fL Normal 81.0-99.0 [facility] Comment on above: Performed By: #### C BC #### [facility] [address] [place], [place] [address] Kaela Judie MONO # 1.0 103/ul Critically high 0.3-0.8 [facility] Comment on above: Performed By: #### C BC #### [facility] [address] [address] Kaela Judie Monocytes/100 WBC (Bld) 5.5 % Normal 1.7-12.0 [facility] Comment on above: Performed By: #### C BC #### [facility] [address] [address] Kaela Judie NEUT # 15.7 103/ul Critically high 1.4-6.5 [facility] Comment on above: Performed By: #### C BC #### [facility] [address] [address] Kaela Judei Neutrophils/100 WBC (Bld) 85.3 % Critically high 43.0-75.0 [facility] Comment on above: Performed By: #### C BC #### [facility] [address] [place], [place] [address] Kaela Judie Platelet mean volume (Bld) [Entitic vol] 11.8 fL Normal 9.5-13.5 [facility] Comment on above: Performed By: #### C BC #### [facility] [address] [place], [place] [address] Kaela Judie PLT 226 103/ul Normal 150-450 [facility] Comment on above: Performed By: #### C BC #### [facility] [address] [place] [address] Kaela Dimas RBC 4.17 106/ul Critically low 4.20-5.40 [facility] Comment on above: Performed By: #### C BC #### [facility] [address] [place] [address] Kaela Dimas WBC 18.5 103/ul Critically high 4.0-11.0 [facility] Comment on above: Performed By: #### C BC #### [facility] [address] [place] [address] Kaelastephanie Dimas DRUG SCREEN RAPID (URINE)on 02-05-2021 AMP Negative Normal NEGATIVE [facility] Comment on above: Performed By: #### D RUGRPD #### [facility] [address] [place] [address] Kaela Judie BAR Negative Normal NEGATIVE [facility] Comment on above: Performed By: #### D RUGRPD #### [facility] [address] [place] [address] Kaela Judie BUP Negative Normal NEGATIVE [facility] Comment on above: Performed By: #### D RUGRPD #### [facility] [address] [place] [address] Kaela Judie BZO Negative Normal NEGATIVE [facility] Comment on above: Performed By: #### D RUGRPD #### [facility] [address] [place] [address] Kaela Judie JERRY Negative Normal NEGATIVE [facility] Comment on above: Performed By: #### D RUGRPD #### [facility] [address] [place] [address] Kaela Judie CUT-OFFS SEE BELOW Normal [facility] Comment on above: Result Comment: [...] ng/mL Performed By: #### D RUGRPD #### [facility] [address] [place] [address] Kaela Judie DRUG CUT HEADER DRUG CLASS TEST SYST EM CUT-OFF CONCENTRATIONS ARE FOLLOWS: Normal [facility] Comment on above: Performed By: #### D RUGRPD #### [facility] [address] [place] [address] Kaela Judie mAMP Negative Normal NEGATIVE [facility] Comment on above: Performed By: #### D RUGRPD #### [facility] [address] [place] [address] Kaela Judie MTD Negative Normal NEGATIVE [facility] Comment on above: Performed By: #### D RUGRPD #### [facility] [address] [place] [address] Kaela Judie OPI Negative Normal NEGATIVE [facility] Comment on above: Performed By: #### D RUGRPD #### [facility] [address] [place] [address] Kaela Judie OXY Negative Normal NEGATIVE [facility] Comment on above: Performed By: #### D RUGRPD #### [facility] [address] [place] [address] Kaela Judie PCP Negative Normal NEGATIVE [facility] Comment on above: Performed By: #### D RUGRPD #### [facility] [address] [place] [address] Kaela Judie PPX Negative Normal NEGATIVE [facility] Comment on above: Performed By: #### D RUGRPD #### [facility] [address] [place] [address] Kaela Judie TCA Negative Normal NEGATIVE [facility] Comment on above: Performed By: #### D RUGRPD #### [facility] [address] [place] [address] Keala Judie THC Negative Normal NEGATIVE [facility] Comment on above: Performed By: #### D RUGRPD #### [facility] [address], [place] [address] Kaela Dimas TYPE AND SCREENon 02-05-2021 TYPE AND SCREEN Negative Normal [facility] Comment on above: Performed By: #### P TT #### [facility] [address] [address] Kaela Dimas GROUP B STREP CULTUREon S. agalactiae Ag Ql (Unsp spec) Culture Observations: NEGATIVE FOR GROUP B STREPTOCOCCUS. Normal [facility] Comment on above: Performed By: #### P TT #### [facility] [address] [place] [address] Kaela Dimas US PREG BIOPHY W NON [...] by: MICHELLE LANE Date: 2021-01-30 08:23 Normal [facility] US PREG GROWTHon 01-30-2021 US PREG [...] by: MICHELLE LANE Date: 2021-01-30 08:25 Normal [facility] US PREG BIOPHY W NON STRESSo [...] by: MICHELLE LANE Date: 2021-01-23 07:22 Normal [facility] US PREG BIOPHY W NON STRESSo [...] by: MICHELLE LANE Date: 2021-01-16 07:31 Normal [facility] PROTEIN 24HR URINEon 06-15-2 021 T PROT, 24 HR UR 603.9 mg/24 hr Critically high 42.0-225.0 [facility] Comment on above: Performed By: #### G TT3P #### [facility] [address] [place], [place] [id number] Kaelastephanie Dimas UR PROT 12.2 mg/dL Critically high <=12.0 [facility] Comment on above: Performed By: #### G TT3P #### [facility] [address] [place] [address] Kaela Judie UR TOT VOL 4950 ml/24 HR Normal [facility] Comment on above: Performed By: #### G TT3P #### [facility] [address] [place] [address] Kaela Judie CBC AUTO DIFFon 01-13-2021 BASO # 0.0 103/ul Normal 0.0-0.1 [facility] Comment on above: Performed By: #### G TT3P #### [facility] [address] [place] [address] Kaelastephanie Sahuen Basophils/100 WBC (Bld) 0.2 % Normal 0.2-2.0 [facility] Comment on above: Performed By: #### G TT3P #### [facility] [address] [place] [address] Kaelastephanie Sahuen EO # 0.1 103/ul Normal 0.0-0.7 [facility] Comment on above: Performed By: #### G TT3P #### [facility] [address] [place] [address] Kaelastephanie Dimas Eosinophils/100 WBC (Bld) 0.6 % Critically low 0.9-7.0 [facility] Comment on above: Performed By: #### G TT3P #### [facility] [address] [place] [address] Kaela Judie Erythrocyte distribution width (RBC) [Ratio] 11.7 % Normal 11.0-15.0 [facility] Comment on above: Performed By: #### G TT3P #### [facility] [address] [place] [address] Kaela Judie Hematocrit (Bld) [Volume fraction] 34.5 % Critically low 36.0-48.0 [facility] Comment on above: Performed By: #### G TT3P #### [facility] [address] [place] [address] Kaela Dimas Hemoglobin (Bld) [Mass/Vol] 12.1 g/dL Normal 12.0-16.0 [facility] Comment on above: Performed By: #### G TT3P #### [facility] [address] [place] [address] Kaela Dimas IG # 0.20 10e3/ul Critically high 0.00-0.03 [facility] Comment on above: Performed By: #### G TT3P #### [facility] [address] [place] [address] Kaela Dimas IG % 1.2 % Critically high 0.0-0.5 [facility] Comment on above: Performed By: #### G TT3P #### [facility] [address] [place] [address] Kaela Dimas LYMPH # 1.5 103/ul Normal 1.2-3.8 [facility] Comment on above: Performed By: #### G TT3P #### [facility] [address] [place] [address] Kaela Dimas Lymphocytes/100 WBC (Bld) 8.6 % Critically low 20.5-60.0 [facility] Comment on above: Performed By: #### G TT3P #### [facility] [address] [place] [address] Kaela Dimas MANUAL DIFF REQ NO Normal [facility] Comment on above: Performed By: #### G TT3P #### [facility] [address] [place], [place] [address] Kaela Dimas MCH (RBC) [Entitic mass] 30.6 pg Normal 26.7-34.0 [facility] Comment on above: Performed By: #### G TT3P #### [facility] [address] [place] [address] Kaela Dimas MCHC (RBC) [Mass/Vol] 35.1 g/dL Normal 29.9-35.2 [facility] Comment on above: Performed By: #### G TT3P #### [facility] [address] [id number] Kaela Dimas MCV (RBC) [Entitic vol] 87.3 fL Normal 81.0-99.0 [facility] Comment on above: Performed By: #### G TT3P #### [facility] [address] [address] Kaela Dimas MONO # 1.2 103/ul Critically high 0.3-0.8 [facility] Comment on above: Performed By: #### G TT3P #### [facility] [address] [place] [address] Kaela Dimas Monocytes/100 WBC (Bld) 6.6 % Normal 1.7-12.0 [facility] Comment on above: Performed By: #### G TT3P #### [facility] [address] [place] [address] Kaela Dimas NEUT # 14.4 103/ul Critically high 1.4-6.5 [facility] Comment on above: Performed By: #### G TT3P #### [facility] [address] [place], [place] [address] Kaela Dimas Neutrophils/100 WBC (Bld) 82.8 % Critically high 43.0-75.0 [facility] Comment on above: Performed By: #### G TT3P #### [facility] [address] [place] [address] Kaela Dimas Platelet mean volume (Bld) [Entitic vol] 12.1 fL Normal 9.5-13.5 [facility] Comment on above: Performed By: #### G TT3P #### [facility] [address] [place], [place] [address] Kaela Dimas PLT 216 103/ul Normal 150-450 [facility] Comment on above: Performed By: #### G TT3P #### [facility] [address] [place] [address] Kaela Judie RBC 3.95 106/ul Critically low 4.20-5.40 [facility] Comment on above: Performed By: #### G TT3P #### [facility] [address] [place] [address] Kaelastephanie Dimas WBC 17.4 103/ul Critically high 4.0-11.0 [facility] Comment on above: Performed By: #### G TT3P #### [facility] [address] [place] [address] Kaelastephanie Dimas CULTURE URINEon 01-13-2021 CULTURE URINE Culture Observations : LIGHT GROWTH OF MIXED GENITAL TINO. NO POTENTIAL PATHOGENS SEEN. Normal [facility] Comment on above: Performed By: #### P TT #### [facility] [address] [place] [address] Kaelastephanie Sahuen LDHon 01-13-2021 LDH 194 U/L Normal 122-222 [facility] Comment on above: Performed By: #### U ELIZABETH, LDH #### [facility] [address] [place], [place] [address] Kaela Dimas PROF 14(COMP METB)on 021 Albumin [Mass/Vol] 2.7 g/dL Critically low 3.5-5.0 [facility] Comment on above: Performed By: #### G TT3P #### [facility] [address] [place], [place] [address] Kaelastephanie Dimas Albumin/Globulin [Mass ratio] 0.9 {ratio} Normal [facility] Comment on above: Performed By: #### G TT3P #### [facility] [address] [place], [place] [address] Kaela Judie ALP [Catalytic activity/Vol] 134 U/L Critically high 38-126 [facility] Comment on above: Performed By: #### G TT3P #### [facility] [address] [place], [place] [address] Kaela Judie ALT [Catalytic activity/Vol] 21 U/L Normal 9-52 [facility] Comment on above: Performed By: #### G TT3P #### [facility] [address] [place], [place] [address] Kaela Judie Anion gap [Moles/Vol] 11.6 mmol/L Normal [facility] Comment on above: Performed By: #### G TT3P #### [facility] [address] [address] Kaela Judie AST [Catalytic activity/Vol] 17 U/L Normal 14-36 [facility] Comment on above: Performed By: #### G TT3P #### [facility] [address] [address] Kaela Judie Bilirubin [Mass/Vol] 0.2 mg/dL Normal 0.2-1.3 [facility] Comment on above: Performed By: #### G TT3P #### [facility] [address] [address] Kaela Judie Calcium [Mass/Vol] 9.1 mg/dL Normal 8.4-10.2 [facility] Comment on above: Performed By: #### G TT3P #### [facility] [address] [address] Kaela Judie Chloride [Moles/Vol] 106 mmol/L Normal 98-107 [facility] Comment on above: Performed By: #### G TT3P #### [facility] [address] [address] Kaela Judie CO2 [Moles/Vol] 25.8 mmol/L Normal 22.0-30.0 [facility] Comment on above: Performed By: #### G TT3P #### [facility] [address] [address] Kaela Judie Creatinine [Mass/Vol] 0.53 mg/dL Normal 0.52-1.04 [facility] Comment on above: Performed By: #### G TT3P #### [facility] [address] [address] Kaela Judie EGFR-AF BANGLADESHI >60 Normal >=60 [facility] Comment on above: Performed By: #### G TT3P #### [facility] [address] [address] Kaela Judie EGFR-NON AF BANGLADESHI >60 Normal >=60 [facility] Comment on above: Performed By: #### G TT3P #### [facility] [address] [address] Kaela Judie Globulin (S) [Mass/Vol] 3.0 g/dL Normal [facility] Comment on above: Performed By: #### G TT3P #### [facility] [address] [place], [place] [address] Kaela Judie Glucose [Mass/Vol] 85 mg/dL Normal 74-106 [facility] Comment on above: Performed By: #### G TT3P #### [facility] [address] [address] Kaela Judie Potassium [Moles/Vol] 3.4 mmol/L Normal 3.4-5.0 [facility] Comment on above: Performed By: #### G TT3P #### [facility] [address] [place] [address] Kaela Judie Protein [Mass/Vol] 5.7 g/dL Critically low 6.1-8.2 [facility] Comment on above: Performed By: #### G TT3P #### [facility] [address] [place] [address] Kaela Judie Sodium [Moles/Vol] 140 mmol/L Normal 137-145 [facility] Comment on above: Performed By: #### G TT3P #### [facility] [address] [place] [address] Kaela Judie Urea nitrogen [Mass/Vol] 10.0 mg/dL Normal 7.0-17.0 [facility] Comment on above: Performed By: #### G TT3P #### [facility] [address] [place] [address] Kaela Judie Urea nitrogen/Creatinine [Mass ratio] 18.9 mg/mg Normal [facility] Comment on above: Performed By: #### G TT3P #### [facility] [address] [place], [place] [address] Kaela Judie PTTon 01-13-2021 aPTT Coag (Bld) [Time] 23.6 s Normal 22.3-36.2 Th [facility] Comment on above: Performed By: #### P TT #### [facility] [address] [place] [address] Kaela Judie URIC ACID SERUMon 01-13-2021 Urate [Mass/Vol] 3.7 mg/dL Normal 2.5-6.2 [facility] Comment on above: Performed By: #### U ELIZABETH, LDH #### [facility] [address] [place] [address] Kaela Judie UA (CLEAN/CATCH) BOW MAKER/MICRO I F IND.on 01-12-2021 Bilirubin Ql (U) Negative Normal NEGATIVE [facility] Comment on above: Performed By: #### U MICRO, UACSIND #### [facility] [address] [place] [address] Kaela Judie Clarity (U) CLEAR Normal CLEAR [facility] Comment on above: Performed By: #### U MICRO, UACSIND #### [facility] [address] [place] [address] Kaela Judie Color (U) LT. YELLOW Normal YELLOW [facility] Comment on above: Performed By: #### U MICRO, UACSIND #### [facility] [address] [place] [address] Kaela Judie Glucose Ql (U) Negative Normal NEGATIVE [facility] Comment on above: Performed By: #### U MICRO, UACSIND #### [facility] [address] [place] [address] Kaela Judie Hemoglobin Ql (U) Negative Normal NEGATIVE [facility] Comment on above: Performed By: #### U MICRO, UACSIND #### [facility] [address] [place] [address] Kaela Judie Ketones Ql (U) Negative Normal NEGATIVE [facility] Comment on above: Performed By: #### U MICRO, UACSIND #### [facility] [address] [place] [address] Kaela Judie LEUKOCYTES TRACE Abnormal NEGATIVE [facility] Comment on above: Performed By: #### U MICRO, UACSIND #### [facility] [address] [place] [address] Kaela Judie Nitrite Ql (U) Negative Normal NEGATIVE [facility] Comment on above: Performed By: #### U MICRO, UACSIND #### [facility] [address] [place] [address] Kaelastephanie Dimas pH (U) 6.0 [pH] Normal 5-9 [facility] Comment on above: Performed By: #### U MICRO, UACSIND #### [facility] [address] [place] [address] Kaelastephanie Dimas SPEC GRAVITY 1.025 Normal 1.005-<=1. 025 [facility] Comment on above: Performed By: #### U MICRO, UACSIND #### [facility] [address] [place] [address] Kaela Judie UA PROTEIN Negative Normal NEGATIVE/ TRACE [facility] Comment on above: Performed By: #### U MICRO, UACSIND #### [facility] [address] [place] [address] Kaelastephanie Dimas UR MICRO IND INDICATED Normal [facility] Comment on above: Performed By: #### U MICRO, UACSIND #### [facility] [address] [place] [address] Kaelastephanie Dimas Urobilinogen Qn (U) 0.2 {Sylvester'U}/dL Normal 0.2 - 1. 0 [facility] Comment on above: Performed By: #### U MICRO, UACSIND #### [facility] [address] [place] [address] Kaelastephanie Dimas URINE MICROSCOPIC ONLYon BACTERIA TRACE Abnormal NONE SEEN [facility] Comment on above: Performed By: #### U MICRO, UACSIND #### [facility] [address] [place] [address] Kaela Judie Bacteria identified Cx Nom (U) INDICATED Normal [facility] Comment on above: Performed By: #### U MICRO, UACSIND #### [facility] [address] [place] [address] Kaela Judie CAST NONE SEEN Normal NONE SEEN [facility] Comment on above: Performed By: #### U MICRO, UACSIND #### [facility] [address] [place] [address] Kaela Judie Crystals LM Nom (Urine sed) NONE SEEN Normal NONE SEEN [facility] Comment on above: Performed By: #### U MICRO, UACSIND #### [facility] [address] [place] [address] Kaelastephanie Dimas Epithelial cells LM Ql (Urine sed) FEW Abnormal NONE SEEN /RARE [facility] Comment on above: Performed By: #### U MICRO, UACSIND #### [facility] [address] [place] [address] Kaela Judie MUCOUS SMALL Abnormal NONE SEEN [facility] Comment on above: Performed By: #### U MICRO, UACSIND #### [facility] [address] [place] [address] Kaela Judie RBC 0-2 Normal 0-2 [facility] Comment on above: Performed By: #### U MICRO, UACSIND #### [facility] [address] [place] [address] Kaelastephanie Sahuen WBC 2-5 Abnormal NONE SEEN [facility] Comment on above: Performed By: #### U MICRO, UACSIND #### [facility] [address] [place] [address] Kaelastephanie Sahuen US PREG BIOPHY W NON [...] IRINEO COMBS Date: 2021-01-09 07:18 Normal [facility] US PREG GROWTHon 12-31-2020 US [...] cm; 32 weeks 2 days; % EFW: [id number], 39% FL/AC: [id number] FL/BPD: [id number] HC/AC: 1.584617 GESTATIONAL AGE: Age by EDC: 32 weeks 1 day SUSANNA by EDC: 02/24/2021 Age by US: 32 weeks 0 days SUSANNA by US: 02/25/2021 IMPRESSION: Normal interval growth Electronically authenticated by: IRINEO COMBS Date: 2020-12-31 09:38 Normal [facility] GTT 3 HR PREGon 12-12-2020 Glucose [Mass/Vol] 86 mg/dL Normal 74-106 [facility] Comment on above: Performed By: #### G TT3P #### [facility] [address] [place] [address] Kaela Judie Glucose [Mass/Vol] 179 mg/dL Normal [facility] Comment on above: Performed By: #### G TT3P #### [facility] [address] [address] Kaela Judie Glucose [Mass/Vol] 131 mg/dL Normal [facility] Comment on above: Performed By: #### G TT3P #### [facility] [address] [address] Kaela Judie Glucose [Mass/Vol] 145 mg/dL Normal [facility] Comment on above: Performed By: #### G TT3P #### [facility] [address] [place] [address] Kaela Judie GLUCOSE - 1HRon 12-05-2020 Glucose [Mass/Vol] 151 mg/dL Critically high 74-106 [facility] Comment on above: Result Comment: sherri ent was approximately 5 minutes late for draw Performed By: #### G LU1HR #### [facility] [address] [place] [address] Kaela Dimas HEMOGRAM AND PLATELon 2020 Hematocrit (Bld) [Volume fraction] 38.4 % Normal 36.0-48.0 [facility] Comment on above: Performed By: #### G TT3P #### [facility] [address] [place] [address] Kaela Dimas Hemoglobin (Bld) [Mass/Vol] 13.2 g/dL Normal 12.0-16.0 [facility] Comment on above: Performed By: #### G TT3P #### [facility] [address] [place] [address] Kaela Dimas MCH (RBC) [Entitic mass] 30.8 pg Normal 26.7-34.0 [facility] Comment on above: Performed By: #### G TT3P #### [facility] [address] [place] [address] Kaela Dimas MCHC (RBC) [Mass/Vol] 34.4 g/dL Normal 29.9-35.2 [facility] Comment on above: Performed By: #### G TT3P #### [facility] [address] [place] [address] Kaela Dimas MCV (RBC) [Entitic vol] 89.5 fL Normal 81.0-99.0 [facility] Comment on above: Performed By: #### G TT3P #### [facility] [address] [place] [address] Kaelastephanie Sahuen PLT 238 103/ul Normal 150-450 [facility] Comment on above: Performed By: #### G TT3P #### [facility] [address] [place] [address] Kaelastephanie Dimas RBC 4.29 106/ul Normal 4.20-5.40 [facility] Comment on above: Performed By: #### G TT3P #### [facility] [address] [place] [address] Kaelastephanie Sahuen WBC 17.0 103/ul Critically high 4.0-11.0 [facility] Comment on above: Performed By: #### G TT3P #### [facility] [address] [place] [address] Kaela Dimas PREG GROWTHon 12-03-2020 PREG GROWTH [...] cm; 28 weeks 0 days; % EFW: 2.118801, 2 lbs. 10 oz., 40% FL/AC: 0.553742 FL/BPD: 0.261745 HC/AC: 1.493278 GESTATIONAL AGE: Age by EDC: 28 weeks 1 day SUSANNA by EDC: 02/24/2021 Age by US: 20 weeks 2 days SUSANNA by US: 02/23/2021 IMPRESSION: Normal interval growth Electronically authenticated by: IRINEO COMBS Date: 2020-12-03 10:04 Normal [facility] Vital Signs Date Time Vital Sign Value Performing Clinician Facility 08-14-2024 16:26-0500 Body mass index (BMI) [Ratio] 41.65 kg/m2 [facility] Work Phone: [facility] 08-14-2024 16:26-0500 Body weight 106.65 kg [facility] Work Phone: [facility] 08-14-2024 16:26-0500 Diastolic blood pressure 80 mm[Hg] [facility] Work Phone: [facility] 08-14-2024 16:26-0500 Systolic blood pressure 130 mm[Hg] [facility] Work Phone: [facility] 07-31-2024 15:22-0500 Body mass index (BMI) [Ratio] 41.81 kg/m2 Madisyn Gaona PA Work Phone: [facility] 07-31-2024 15:22-0500 Body weight 107.05 kg Madisyn Gaona PA Work Phone: [facility] 07-31-2024 15:22-0500 Diastolic blood pressure 72 mm[Hg] Madisyn Gaona PA Work Phone: [facility] 07-31-2024 15:22-0500 Systolic blood pressure 122 mm[Hg] Madisyn Gaona PA Work Phone: [facility] 07-17-2024 16:19-0500 Body mass index (BMI) [Ratio] 41.81 kg/m2 Scotty Jacquie DO Work Phone: [facility] 07-17-2024 16:19-0500 Body weight 107.05 kg Scotty Jacquie DO Work Phone: [facility] 07-17-2024 16:19-0500 Diastolic blood pressure 72 mm[Hg] Scotty Jacquie DO Work Phone: [facility] 07-17-2024 16:19-0500 Systolic blood pressure 122 mm[Hg] Scotty Jacquie DO Work Phone: [facility] 07-14-2024 11:13-0500 Body height 160 cm Aniceto Fox MD Work Phone: [facility] 07-14-2024 11:13-0500 Body mass index (BMI) [Ratio] 40.74 kg/m2 Aniceto Fox MD Work Phone: [facility] 07-14-2024 11:13-0500 Body weight 104.33 kg Aniceto Fox MD Work Phone: [facility] 07-14-2024 11:13-0500 Diastolic blood pressure 84 mm[Hg] Aniceto Fox MD Work Phone: [facility] 07-14-2024 11:13-0500 Heart rate 104 /min Aniceto Fox MD Work Phone: [facility] 07-14-2024 11:13-0500 Systolic blood pressure 144 mm[Hg] Aniceto Fox MD Work Phone: [facility] 06-15-2024 15:34-0500 Body mass index (BMI) [Ratio] 40.6 kg/m2 Madisyn Gaona PA Work Phone: [facility] 06-15-2024 15:34-0500 Body weight 103.96 kg Madisyn Jimenez PA Work Phone: [facility] 06-15-2024 15:34-0500 Diastolic blood pressure 76 mm[Hg] Madisyn Jimenez PA Work Phone: [facility] 06-15-2024 15:34-0500 Systolic blood pressure 122 mm[Hg] Madisyn Jimenez PA Work Phone: [facility] 05-18-2024 12:07-0400 Body mass index (BMI) [Ratio] 39.5 kg/m2 Scotty Jacquie DO Work Phone: [facility] 05-18-2024 12:07-0400 Body weight 101.15 kg Scotty Jacquie DO Work Phone: [facility] 05-18-2024 12:07-0400 Diastolic blood pressure 78 mm[Hg] Scotty Jacquie DO Work Phone: [facility] 05-18-2024 12:07-0400 Systolic blood pressure 124 mm[Hg] Scotty Jacquie DO Work Phone: [facility] 04-20-2024 08:46-0400 Body mass index (BMI) [Ratio] 39.41 kg/m2 Madisyn Gaona PA Work Phone: [facility] 04-20-2024 08:46-0400 Body weight 100.92 kg Madisyn Gaona PA Work Phone: [facility] 04-20-2024 08:46-0400 Diastolic blood pressure 82 mm[Hg] Madisyn Gaona PA Work Phone: [facility] 04-20-2024 08:46-0400 Systolic blood pressure 122 mm[Hg] Madisyn Jimenez PA Work Phone: [facility] 03-22-2024 11:34-0400 Body mass index (BMI) [Ratio] 39.5 kg/m2 Scotty Jacquie DO Work Phone: [facility] 03-22-2024 11:34-0400 Body weight 101.15 kg Scotty Jacquie DO Work Phone: [facility] 03-22-2024 11:34-0400 Diastolic blood pressure 74 mm[Hg] Scotty Jacquie DO Work Phone: [facility] 03-22-2024 11:34-0400 Systolic blood pressure 122 mm[Hg] Scotty Jacquie DO Work Phone: [facility] 01-31-2024 18:14-0400 Diastolic blood pressure 74 mm[Hg] MD Jacques Mccarthy Work Phone: [facility] 01-31-2024 18:14-0400 Heart rate 100 /min MD Jacques Mccarthy Work Phone: [facility] 01-31-2024 18:14-0400 Respiratory rate 18 /min MD Jacques Mccarthy Work Phone: [facility] 01-31-2024 18:14-0400 SaO2% (BldA) [Mass fraction] 100 % MD Jacques Mccarthy Work Phone: [facility] 01-31-2024 18:14-0400 Systolic blood pressure 156 mm[Hg] MD Jacques Mccarthy Work Phone: [facility] 01-31-2024 14:04-0400 Body height 160.02 cm MD Jacques Mccarthy Work Phone: [facility] 01-31-2024 14:04-0400 Body temperature 97.4 [degF] MD Jacques Mccarthy Work Phone: [facility] 01-31-2024 14:04-0400 Body weight 98.5 kg MD Jacques Mccarthy Work Phone: [facility] Encounters Encounter Date Encounter Type Care Provider Facility Start: 08-22-2024 End: 08-22-2024 ambulatory SCOTTY JACQUIE Not Available Start: 08-22-2024 End: 08-22-2024 Bamboo flowsheet Scotty Jacquie DO Work Phone: [facility] Start: 08-22-2024 End: 08-22-2024 Bamboo flowsheet Scotty Jacquie DO Work Phone: [facility] Start: 08-16-2024 End: 08-16-2024 Documentation procedure Judie Stearns [facility] Start: 08-15-2024 End: 08-15-2024 Office outpatient visit 25 minutes Nubia Lundberg MD Work Phone: [facility] Comment on above: 32 weeks gestation o f (Primary Dx); Gestational diabetes mellitus (GDM) in third trimester, gestational diabetes method of control unspecified; Chronic hypertension affecting ; BMI 40.0-44.9, adult ([facility]); arrhythmia affecting , antepartum; Polyhydramnios affecting ; Separation of chorion and amnion membranes, antepartum Start: 08-15-2024 End: 08-15-2024 Orders Only Judie Stearns [facility] Comment on above: Abnormal ultrasonic finding on [...] Aniceto Fox MD Work Phone: [facility] [place] Comment on above: Gestational diabetes mellitus (GDM), antepartum, gestational diabetes method of control unspecified (Primary Dx); Chronic hypertension affecting Start: 07-14-2024 End: 07-14-2024 [facility] Start: 07-13-2024 End: 07-13-2024 Clinisync Result Encounter Madisyn KERNS Work Phone: [facility] External Department Unsolicited Start: 07-13-2024 End: 07-13-2024 Clinisync Result Encounter Madisyn KERNS Work Phone: [facility] External Department Unsolicited Start: 06-21-2024 End: 06-21-2024 Chart abstracting Aniceto Fox MD Work Phone: [facility] Start: 06-15-2024 End: 06-15-2024 flow sheet Madisyn [...] 06-15-2024 Bamboo flowsheet Madisyn KERNS Work Phone: [facility] Start: 05-18-2024 End: 05-18-2024 Bamboo flowsheet Scotty Jacquie DO Work Phone: [facility] Start: 05-18-2024 End: 05-18-2024 Bamboo flowsheet Scotty Jacquie DO Work Phone: [facility] Start: 05-18-2024 End: 05-18-2024 ambulatory SCOTTY JACQUIE Not Available Start: 05-18-2024 End: 05-18-2024 flow sheet Scotty Jacquie DO Work Phone: [facility] Comment on above: 20 weeks gestation o f ; Second trimester Start: 04-20-2024 End: 04-20-2024 Bamboo flowsheet Madisyn KERNS Work Phone: [facility] Start: 04-20-2024 End: 04-20-2024 Bamboo flowsheet Madisyn KERNS Work Phone: [facility] Start: 04-20-2024 End: 04-20-2024 Office outpatient visit 15 minutes Madisyn KERNS Work Phone: [facility] Comment on above: Screening, , for anatomic survey; Well woman exam with routine gynecological exam; Screen for STD (sexually transmitted disease); Vaginal discharge; Second trimester Start: 04-20-2024 End: 04-20-2024 Patient encounter procedure Madisyn KERNS Work Phone: [facility] Start: 04-20-2024 End: 04-20-2024 ambulatory MADISYN GAONA Not Available Start: 03-22-2024 End: 03-22-2024 Bamboo flowsheet Scotty Jacquie DO Work Phone: [facility] Start: 03-22-2024 End: 03-22-2024 Bamboo flowsheet Scotty Jacquie DO Work Phone: [facility] Start: 03-22-2024 End: 03-22-2024 flow [...] patient visit MD Jacques Mccarthy Work Phone: [facility] Work Phone: Start: 10-08-2021 End: 10-08-2021 [...] Work Phone: Start: 08-04-2024 [facility] UA (CLEAN/CATCH) BOW MAKER/MICRO IF IND. Scotty Jacquie DO Work Phone: [...] Author Start: 08-15-2025 Tobacco Screening Tobacco Screening [facility] Start: 07-14-2025 Adult BMI Screening Adult BMI Screen ing [facility] Start: 06-21-2025 Adult BMI Screening Adult BMI Screen ing [facility] Start: 08-30-2024 End: 08-30-2024 Patient encounter procedure 08/30/2024 10:30 AM EST Office Visit [facility] [address] [place] [phone] Eliud Wilson MD [address] [place] [address] [facility] Start: 08-22-2024 End: 08-22-2024 Patient encounter procedure 08/22/2024 2:30 PM EST Routine [facility] [address] [facility] [place] [address] Scotty Dhillon, DO [address] [place] [address] [facility] Start: 08-14-2024 End: 08-14-2024 Patient encounter procedure 08/14/2024 3:30 PM EST Routine [facility] [address] [place] [address] Scotty Dhillon, DO [address] [place], [place] [id number] [facility] Start: 07-31-2024 End: 07-31-2024 Patient encounter procedure [facility] Comment on above: Arrived Start: 07-17-2024 End: 07-17-2024 Patient encounter procedure 07/17/2024 3:20 PM EST Routine [facility] [address] [facility] [address] [phone] Scotty Dhillon, [address] [facility] [place] [address] [facility] Start: 07-17-2024 End: 07-17-2024 Professional / ancillary services management 07/17/2024 3:00 PM EST Ancillary Procedure [facility] [address] [facility] [place] [phone] [facility] Start: 07-17-2024 End: 07-17-2025 US biophysical profile w non stress test US biophysical profile w non stress test Imaging Routine Third trimester Gestational diabetes mellitus (GDM) in third trimester, gestational diabetes method of control unspecified Hypertension, unspecified type (CMS/HCC) Expected: 07/17/2024 (Approximate), Expires: 07/17/2025 [facility] Comment on above: Expected: 07/17/2024 (Approximate), [...] End: 07-14-2024 Patient encounter procedure [facility] [place] Start: 06-15-2024 End: 06-15-2024 Patient encounter procedure 06/15/2024 3:30 PM EST Routine [facility] [address] [facility] [phone] Madisyn Gaona PA [address] [facility] [address] [place], [place] [phone] [facility] Start: 06-15-2024 End: 06-15-2025 [...] EDT Office Visit [facility] [address] [place] [phone] Scotty Dhillon DO [address] [facility] [place] [address] [facility] Start: 05-18-2024 End: 05-18-2024 Professional / ancillary services management 05/18/2024 10:30 AM EDT Ancillary Procedure [facility] [address] [facility] [place] [phone] [facility] Start: 04-20-2024 End: 04-20-2025 Alpha fetoprotein, maternal Alpha fetoprotein, maternal Lab Routine Second trimester Expected: 04/20/2024 (Approximate), Expires: 04/20/2025 [facility] Work Phone: Comment on above: Expected: 04/20/2024 (Approximate), Expires: 04/20/2025 Start: 04-20-2024 End: 04-20-2025 US for US OB ANATOMY SINGLE W US OB CERVICAL LENGTH Imaging Routine Screening, , for anatomic survey Expected: 04/20/2024 (Approximate), Expires: 04/20/2025 [facility] Comment on above: Expected: 04/20/2024 (Approximate), Expires: 04/20/2025 Start: 04-20-2024 End: 04-20-2024 Patient encounter procedure [facility] Comment on above: Arrived Start: 04-02-2024 Influenza vaccination Influenza Vacc ine [facility] Start: 03-22-2024 End: 03-22-2024 Patient encounter procedure 03/22/2024 11:20 AM EDT Routine [facility] [address] [place] [address] Scotty Dhillon, DO [address] [facility] [address] [place] [place], [place] [phone] Arrived [facility] Comment on above: Arrived Start: 2018 Screening for malign ant neoplasm of cervix Pap Smear [facility] Start: 2016 DTaP,Tdap and Td Vaccines (1 - Tdap) DTaP,Tdap and Td Vaccines (1 - Tdap) [facility] Start: 2015 Adult BMI Follow Up Plan Adult BMI Follow Up Plan [facility] Start: 2015 Adult BMI Screening Adult BMI Screen ing [facility] Start: 2009 Depression Screening Depression Scre ening [facility] Start: 2009 Tobacco Screening Tobacco Screening [facility] CBC W Auto Different ial panel - Blood CBC and differential Lab Routine Abnormal CBC Ordered: 03/22/2024 [facility] Work Phone: Comment on above: Ordered: 03/22/2024 Patient Education - Th e Second Month High Blood Pressure ED [facility] Work Phone: Patient referral [facility] Work Phone: Payers Date Payer Category Payer Medicaid [id number] 2024 Medicaid [id number] 2024 Self-pay 2023 Private Health Insurance [id number] 2023 Private Health Insurance [id number] 2022 Medicaid HMO [employer] [id number] 1997 Unknown [id number] 2.16.840.1.199701.3.579.2. 593 1997 Unknown [id number] 2.16.840.1.435232.3.579.2. 593 1997 Unknown [id number] 2.16.840.1.445136.3.579.2. 593 1997 Unknown [id number] 2.16.840.1.167212.3.579.2. 593 1997 Unknown [id number] 2.16.840.1.816087.3.579.2. 593 1997 Unknown [id number] 2.16.840.1.836647.3.579.2. 593 1997 Unknown [id number] 2.16.840.1.645035.3.579.2. 593 1997 Unknown [id number] 2.16.840.1.971983.3.579.2. 593 1997 Unknown [id number] 2.16.840.1.145485.3.579.2. 593 1997 Unknown [id number] 2.16.840.1.961734.3.579.2. 593 1997 Unknown [id number] 2.16.840.1.176328.3.579.2. 593 1997 Unknown [id number] 2.16.840.1.400096.3.579.2. 593 1997 Unknown [id number] 2.16.840.1.314375.3.579.2. 593 1997 Unknown [id number] 2.16.840.1.297158.3.579.2. 593 1997 Unknown [id number] 2.16.840.1.731129.3.579.2. 593 1997 Unknown [id number] 2.16.840.1.608869.3.579.2. 593 1997 Unknown [id number] 2.16.840.1.953619.3.579.2. 593 1997 Unknown [id number] 2.16.840.1.647422.3.579.2. 593 1997 Unknown [id number] 2.16.840.1.931042.3.579.2. 1286 1997 Unknown [id number] 2.16.840.1.340891.3.579.2. 1286 1997 Unknown [id number] 2.16.840.1.460140.3.579.2. 1286 1997 Unknown [id number] 2.16.840.1.103047.3.579.2. 1259 1997 Unknown [id number] 2.16.840.1.894305.3.579.2. 9 1997 Unknown [id number] 2.16.840.1.460965.3.579.2. 1258 1997 Unknown [id number] 2.16.840.1.200106.3.579.2. 9 1997 Unknown [id number] 2.16.840.1.570175.3.579.2. 1258 1997 Unknown [id number] 2.16.840.1.703154.3.579.2. 1258 1997 Unknown [id number] 2.16.840.1.360003.3.579.2. 1258 1997 Unknown [id number] 2.16.840.1.761042.3.579.2. 1258 1997 Unknown [id number] 2.16.840.1.182830.3.579.2. 1258 1997 Unknown [id number] 2.16.840.1.713047.3.579.2. 1258 1997 Unknown [id number] 2.16.840.1.524918.3.579.2. 1258 1997 Unknown [id number] 2.16.840.1.531549.3.579.2. 1259 1959 Unknown [id number] 1959 Unknown [id number] 1959 Unknown [id number] Unknown [id number] 2.16.840.1.315830.3.579.2. 531 Social History Date Type Detail Facility Start: 01-13-2024 [facility] Start: 01-31-2024 [facility] Start: 1995 Sex Assigned At Female F [facility] consumption unknown [facility] Start: 1997 Sex assigned at Not on file [facility] Start: 08-23-2020 End: 06-21-2024 Gender identity Not on file [facility] Start: 10-07-2020 End: 07-14-2024 Tobacco smoking status NHIS Ex-smoker [facility] History of tobacco use Current smoker [facility] Start: 10-07-2020 End: 07-14-2024 Tobacco use and exposure Smokeless tobacco non-user [facility] Start: 06-21-2024 End: 08-15-2024 Alcoholic beverage intake Ex-drinker (finding) [facility] Start: 08-23-2020 End: 06-21-2024 History of Social function [facility] Childcare Unknown [facility] Start: 10-07-2020 End: 07-14-2024 Tobacco Comment quit 3 years ago [facility] Start: 08-23-2020 Sex Female (finding) [facility] History of tobacco use Cigarette Smoker P [facility] Medical Equipment Procedure Code Equipment Code Equipment Origin al Text Equipment Identifier Dates 1 strip by In Vi tro route Daily Use in the morning prior to breakfast, 1 hour after each meal for a total of 4times daily. [id number] Start: 07-17-2024 End: 08-16-2024 1 each by In Vit ro route Daily Use to check FSBS four times daily [id number] Start: 07-17-2024 End: 08-16-2024 Clinical Notes 02-05-2021 [...] return my call. documented in this encounter [facility] 08-15-2024 History of Present illness Narrative Video Visit via Real-time Synchronous Audiovisual Provider Location: [facility]- MEDICINE AT [address] [address] Patient Location: Other [place] Office Patient Location Quality Control: None Video Visit Consent Statement: I discussed [...] that there are some limitations compared to [id number]-[id number] evaluations. We elected to proceed. REASON FOR [...] outflow tracts on ultrasound BMI 40.0-44.9, adult ([facility]) Past Medical History: Diagnosis Date Anxiety Chronic [...] and the other consultants, we search on [employer] and all the available care everywhere [facility] I did review all the imaging studies of the patient available on EMR, ordered by the primary care physician and the other sales consultant residential manager HABITS: Patient activity no restrictions, diet no [...] more likely to fail compared to insulin. sign wirer data on children whose mothers took oral [...] Chronic hypertension affecting 4. BMI 40.0-44.9, adult ([facility]) Denies signs and symptoms of preeclampsia and [...] of labor - if you would like [facility] to start managing the patient diabetes [...] patient is in complete care of her acoustical carpenter. Patient does have ultrasound appointment scheduled with us. Thank you for allowing me to participate in Samantah Benjamin . If there any questions please do not hesitate to contact us. Sincerely, Nubia Lundberg MD, FACOG (she/hers) [facility] [address] [place] [address] documented in this encounter [facility] 08-14-2024 History of Present illness Narrative [...] nursing note reviewed. Exam conducted with a drywall foreman present. Vitals: Estimated body mass index is [...] Scotty Dhillon DO documented in this encounter [facility] 07-31-2024 History of Present illness Narrative Reason for Appointment: Patient ID: Samantha Benjamin is a 29 y.o. female who presents for Routine Visit Patient presents today for Return OB appointment. MEDICATIONS Current Outpatient Medications Medication Instructions Alcohol Swabs (Alcohol Prep Pad) 70 % pads 1 Pad, Topical, Daily, Use four times daily to check FSBS. Blood Glucose Monitoring Suppl ([employer] [facility] Glucometer) w/Device kit 1 kit, Does [...] LUIS F Tarango documented in this encounter [facility] 07-17-2024 History of Present illness Narrative Reason [...] Scotty Dhillon DO documented in this encounter [facility] 07-14-2024 History of Present illness Narrative Headache/epigastric pain/blurry vision/swelling? no Cramping/contractions? no Abnormal vaginal discharge? no Spotting/vaginal bleeding? no Loss or gush of fluid like your water may have broken? no Do you have cats at home? no Do you change the litter box (reason: risk of toxoplasmosis)? Genetic testing done this here or other office? yes Have you been seen here at [facility] in a previous ? no Recent ER visits or hospitalizations? no Bring blood sugar log or meter with you today? (Please bring them with you for every visit at [facility]) no Flu vaccine (Jun-September)? no Any [...] outflow tracts on ultrasound BMI 40.0-44.9, adult ([facility]) Past Medical History: Diagnosis Date Anxiety Chronic [...] evening., Disp: , Rfl: miscellaneous medical supply [facility] by miscellaneous route once., Disp: , Rfl: [...] and the other consultants, we search on [employer] and all the available care everywhere [facility] I did review all the imaging studies of the patient available on EMR, ordered by the primary care physician and the other sales consultant residential manager HABITS: Patient activity no restrictions, diet no [...] her 3 hour glucose tolerance test, refer [facility] for diabetes management.. 8. Patient came more than 1 hour late for her ultrasound appointment and therefore has been rescheduled at our [facility] site. DISPOSITION: At this point the patient is in complete care of her acoustical carpenter. Patient does have ultrasound appointment scheduled with us. Thank you for allowing me to participate in Samantha Benjamin . If there any questions please do not hesitate to contact us. Sincerely, ANICETO FOX MD documented in this encounter [facility] 06-15-2024 History of Present illness Narrative Reason [...] LUIS F Tarango documented in this encounter [facility] 05-18-2024 History of Present illness Narrative Reason [...] nursing note reviewed. Exam conducted with a drywall foreman present. Vitals: Estimated body mass index is [...] of MSAFP orders to have drawn at [facility] in [place]. Documented by Angela Butt LPN on behalf of: Scotty Dhillon DO documented in this encounter [facility] 04-20-2024 History of Present illness Narrative Reason [...] LUIS F Tarango documented in this encounter [facility] 03-22-2024 History of Present illness Narrative Reason [...] nursing note reviewed. Exam conducted with a drywall foreman present. Vitals: Estimated body mass index is [...] or undercooked meat, and stay away from [facility]. Patient has been consulted regarding any [...] Scotty Dhillon DO documented in this encounter [facility] 02-05-2021 Note OPERATIVE NOTE OPERATION DATE: 02-06-21 ANESTHETIC:Spinal with [employer]. BUSINESS SERVICES SALES REPRESENTATIVE:ELVIA Prajapati PREOPERATIVE DIAGNOSIS: 1. Intrauterine at 37 [...] the Recovery Room in stable condition. [facility] Signed and Approved by: DR SCOTTY DHILLON . 02/11/2021 11:15:00 [facility] 02-05-2021 Note DISCHARGE SUMMARY Discharge Date: [...] any abdominal pain unrelieved with narcotics. [facility] Signed and Approved by: DR SCOTTY DHILLON . 02/25/2021 23:13:00 [facility] Evaluation note No assessment inform ation available [facility] Work Phone: Evaluation note Diagnosis 20 [...] Chronic hypertension affecting documented in this encounter [facility]* Diagnosis Third trimester state, incidental 28 weeks gestation of Gestational diabetes mellitus (GDM) in third trimester, gestational diabetes method of control unspecified Hypertension, unspecified type ([facility]) Gestational diabetes mellitus (GDM), antepartum, gestational diabetes [...] unspecified Chronic hypertension affecting BMI 40.0-44.9, adult ([facility]) arrhythmia affecting , antepartum Abnormality in heart [...] be sent through Care Everywhere. * Preeclampsia (Kinyarwanda) * labor (Kinyarwanda) documented in this encounterProMediar Health SystemInstructionsNot on file documented in this encounterProMediar Health SystemInstructionsNot on file documented in this encounterProHolzer Health System System Summary Purpose Family History No Family [...] and content) DATE CREATED AUTHOR 10/15/2021 [facility] DATE CREATED AUTHOR AUTHOR'S ORGANIZ ATION 02/19/2024 [facility] DATE CREATED AUTHOR AUTHOR'S ORGANIZ ATION 07/17/2024 [facility] DATE CREATED AUTHOR AUTHOR'S ORGANIZ ATION 08/18/2024 [facility] DATE CREATED AUTHOR AUTHOR'S ORGANIZ ATION 08/18/2024 [facility] DATE CREATED AUTHOR AUTHOR'S ORGANIZ ATION 08/24/2024 [facility] EPIC Care Teams (unrecognized sec tion and content) Team Status: Active Member Role Status Dates Jacques Mccarthy MD Primary Care Provider Active Team Status: Inactive Member Role Status Dates Jacques Mccarthy MD Primary Care Provider Active Start: January 31, 2024 End: January 31, 2024 Terry Dudley DO Emergency Provider Active St art: January 31, 2024 End: January 31, 2024 Agricultural Inspector Relationship Specialty Start Date End Date Jacques Mccarthy MD [address] [place] [address] PCP - General Family Medicine 02/08/24 Agricultural Inspector Relationship Specialty Start Date End Date Jacques Mccarthy MD [address] [place] [address] PCP - General Family Medicine 02/08/24 Agricultural Inspector Relationship Specialty Start Date End Date Jacques Mccarthy MD PCP - General Family Medicine 10/07/20 Agricultural Inspector Relationship Specialty Start Date End Date Jacques Mccarthy MD [address] [place] [address] PCP - General Family Medicine 02/08/24 Agricultural Inspector Relationship Specialty Start Date End Date Jacques Mccarthy MD [address] [facility] [place] [address] PCP - General Family Medicine 02/08/24 Agricultural Inspector Relationship Specialty Start Date End Date Jacques Mccarthy MD [address] [facility] [place] [address] PCP - General Family Medicine 02/08/24 Agricultural Inspector Relationship Specialty Start Date End Date Jacques Mccarthy MD PCP - General Family Medicine 10/07/20 Agricultural Inspector Relationship Specialty Start Date End Date Jacques Mccarthy MD [address] [facility] [place] [address] PCP - General Family Medicine 02/08/24 Agricultural Inspector Relationship Specialty Start Date End Date Jacques Mccarthy MD [address] [facility] [place] [address] PCP - General Family Medicine 02/08/24 Agricultural Inspector Relationship Specialty Start Date End Date Jacques Mccarthy MD [address] [facility] [place] [address] PCP - General Family Medicine 02/08/24 Agricultural Inspector Relationship Specialty Start Date End Date Jacques Mccarthy MD [address] [facility] [place] [address] PCP - General Family Medicine 02/08/24 Agricultural Inspector Relationship Specialty Start Date End Date Jacques Mccarthy MD [address] [facility] [place] [address] PCP - General Family Medicine 02/08/24 Agricultural Inspector Relationship Specialty Start Date End Date Jacques Mccarthy MD [address] [facility] [place] [address] PCP - General Family Medicine 02/08/24 Agricultural Inspector Relationship Specialty Start Date End Date Jacques Mccarthy MD [address] [facility] [place] [address] PCP - General Family Medicine 02/08/24 Agricultural Inspector Relationship Specialty Start Date End Date Jacques Mccarthy MD [address] [facility] [place] [address] PCP - General Family Medicine 02/08/24 Agricultural Inspector Relationship Specialty Start Date End Date Jacques Mccarthy MD PCP - General Family Medicine 10/07/20 Agricultural Inspector Relationship Specialty Start Date End Date Jacques Mccarthy MD PCP - General Family Medicine 10/07/20 Agricultural Inspector Relationship Specialty Start Date End Date Jacques Mccarthy MD PCP - General Family Medicine 10/07/20 Agricultural Inspector Relationship Specialty Start Date End Date Jacques Mccarthy MD [address] [facility] [place] [address] PCP - General Family Medicine 02/08/24 Goals [...] BE BASED ON THE PRIMARY CLINICAL RECORDS. [employer] [facility]. provides no warranty or guarantee of the accuracy or completeness of information in this document.
[2024-08-28 18:15] VITALS: BP 149/87; PULSE 102
[2024-08-28 18:30] VITALS: BP 145/84; PULSE 99
[2024-08-28 18:45] VITALS: BP 148/77; PULSE 93
--- OUTSIDE RECORDS SUMMARY | 2024-08-31 05:43 | XMS_ITS | CCD ---
Author Organization [facility] Care Team Providers Care Loss Prevention Guard Name Role Phone JACQUIE, DR FAJARDO Consulting Unavailable JACQUIE, DR FAJARDO Primary Care Unavailable JACQUIE, DR FAJARDO Attending Unavailable JACQUIE, DR FAJARDO Admitting Unavailable JACQUIE, DR FAJARDO Consulting Unavailable PENELOPE BOLANOS Admitting Unavailable LUIS MIGUEL, PENELOPE Attending Unavailable MIGUEL ÁNEGL, DR HANNA Primary Care Unavailable DOMINGO, DR [...] MIGUEL ÁNGEL, DR HANNA Primary Care Unavailable DULUTH, DR IRINEO [place] Consulting Unavailable JACQUIE, DR [...] MIGUEL ÁNGEL, DR HANNA [facility] Care Unavailable JACQUIE, DR FAJARDO Attending Unavailable JACQUIE, DR FAJARDO Consulting Unavailable JACQUIE, DR FAJARDO Attending Unavailable HOY, DR HANNA [facility] Care Unavailable JACQUIE, DR FAJARDO Admitting Unavailable MD Jacques Mccarthy Primary Care Provider [phone] DO Terry Dudley Emergency Provider Terry Dudley Admitting Unavailable Terry Dudley Attending Unavailable Jacques Mccarthy Primary Care Unavailable Jacques Mccarthy MD Primary Care Provider [phone] Jacques Mccarthy MD Primary Care Provider [phone] ANICETO FOX Attending Unavailable SCOTTY DHILLON Referring Unavailable JACQUES MCCARTHY Primary Care Unavailable JACQUES MCCARTHY Primary Care Unavailable SCOTTY DHILLON Referring Unavailable NUBAI LUNDBERG Attending Unavailable SCOTTY DHILLON Referring Unavailable JACQUES MCCARTHY Primary Care Unavailable JACQUIE, SCOTTY Attending Unavailable JACQUIE, SCOTTY Attending Unavailable JACQUIE, SCOTTY Attending Unavailable JIMENEZ, MADISYN Attending Unavailable JACQUIE, SCOTTY Attending Unavailable JIMENEZ, MADISYN Attending Unavailable JACQUIE, SCOTTY Attending Unavailable JIMENEZ, MADISYN Attending Unavailable JACQUIE, SCOTTY Attending Unavailable JIMENEZ, MADISYN Attending Unavailable JACQUIE, SCOTTY Attending Unavailable Medications Current Medications Medication Drug Class(es) Dates Sig (Normalized) Sig (Original) aspirin 81 mg delayed release oral tablet (4 sources) Platelet Aggregation Inhibitor, Nonsteroidal Anti-inflammatory Drug take 1 tablet by mouth once daily aspirin 81 MG EC tablet Take 81 mg by mouth Daily Active Blood Glucose Monitoring Suppl (D-Care Glucometer) w/Device kit (19 sources) Start: 07-17-2024 End: 07-17-2025 Blood Glucose [...] ml insulin glargine 100 unt/ml pen injector (9 sources) Insulin Analog Start: 08-23-2024 End: 09-22-2024 [...] Discontinued isopropyl alcohol 0.7 ml/ml medicated pad (19 sources) Start: 07-17-2024 Alcohol Swabs (Alcohol Prep [...] (20 sources) beta-Adrenergi c All Start: 08-05-2024 End: 09-22-2024 take 1 tablet by mouth in the morning, then take 1 tablet by mouth in the evening, then take 1 tablet by mouth at bedtime labetalol (Normodyne) 300 MG tablet Indications: Hypertension, unspecified type (CMS/HCC) Take 1 tablet (300 mg) by mouth in the morning and 1 tablet (300 mg) in the evening and 1 tablet (300 mg) before bedtime. 90 tablet 08/23/2024 09/22/2024 Active Start: 05-01-2024 End: 09-13-2024 take 1 [...] miscellaneous medical supply misc (5 sources) miscellaneous me dical supply misc by [...] Drug Class(es) Dates Sig (Normalized) Sig (Original) cephalexin 500 mg oral capsule (8 sources) Cephalosporin Antibacterial Start: 08-05-2024 End: 08-29-2024 cephalexin (Keflex) 500 MG capsule Take 500 mg by mouth in the morning and 500 mg at noon and 500 mg in the evening and 500 mg before bedtime. 08/05/2024 08/29/2024 Discontinued NIFEdipine 10 mg oral capsule (5 sources) [...] ] Onset: 08-15-2024 Episodic Residual codes; unclassified (4 sources) Gestation period, 34 weeks; Translations: [34 [...] Test Name Value Interpretation Reference Range Facility [facility] UA (CLEAN/CATCH) PARENT TRAINER/KEYLA RO IF IND.on 08-30-2024 BILIRUBIN URINE Negative NEGATIVE [facility] BLOOD URINE Negative NEGATIVE [facility] Clarity (U) CLEAR CLEAR [facility] Color (U) YELLOW YELLOW [facility] GLUCOSE URINE UA Negative NEGATIVE mg/dL [facility] Interpretation and review of laboratory results Abnormal [facility] Ketones Ql (U) 15 mg/dL Abnormal NEGATIVE [facility] Leukocyte esterase Test strip Ql (U) Negative NEGATIVE [facility] NITRITE URINE Negative NEGATIVE [facility] pH (U) 6.0 [pH] 5.0 - 9.0 [facility] Protein (U) [Mass/Vol] 30 mg/dL Abnormal NEG/TRACE NO [facility] SPECIFIC GRAVITY URINE >=1.030 Abnormal 1.005 - 1.025 [facility] URINE MICROSCOPIC INDICATED YES [facility] UROBILINOGEN URINE 0.2 EU/dL 0.2 - 1.0 EU/dL [facility] US OB BPP W NON-STRESS on 08-30-2024 [place] [address] Ultrasound Report Signed Patient: SAMANTHA BENJAMIN MR#: [id number] : 1995 Acct:[id number] Age/Sex: 29 / F ADM Date: 08/30/24 Loc: [facility] 250-[address]: Scotty Dhillon D.O. Ordering Physician: Scotty Dhillon D.O. Date of Service: 08/30/24 Procedure(s): US OB BPP w non-stress Accession Number(s): [id number] cc: Scotty Dhillon D.O.; Jacques Mccarthy M.D. [address] [address] Patient Name: SAMANTHA BENJAMIN MRN: [id number] date: 1995 Sex: F Assigned Patient Location: [facility] Current Patient Location: [facility] Accession/Order Number: [id number] Exam Date: 08/30/2024 13:43 Report Date: 08/30/2024 14:27 At the request of: SCOTTY DHILLON Procedure: US OB BPP w non-stress Ultrasound biophysical profile CLINICAL: Evaluate well-being. Clinical gestational age of 34 weeks 6 days. TECHNIQUE: Dedicated ultrasound imaging of the fetus was performed to include the senior digital designer's evaluation of biophysical profile. FINDINGS: Comparison: Ultrasound 08/24/2024 FETUS: There is a single living intrauterine fetus in vertex presentation. heart rate of 151 beats per minute. PLACENTA: The placenta is anterior in location. AMNIOTIC FLUID: The amniotic fluid index is 17.46 cm, with maximum vertical pocket of 7.12 cm. BIOPHYSICAL PROFILE: motion: 2 out of 2. tone: 2 out of 2. breathin out of 2. Amniotic fluid volume: 2 out of 2. Total score: 8 out of 8. OTHER FINDINGS: None. US/US OB BPP w non-stress IMPRESSION: 1. Single viable fetus in vertex presentation with heart rate of 151 beats per minute. 2. Total biophysical profile score of 8 out of 8. 3. Amniotic fluid index of 17.46 cm, with maximum vertical pocket of 7.12 cm. This is between the 50th and 95th percentile for clinical gestational age. Amniotic fluid index on prior study 08/24/2024 was 28.09 cm. Electronically authenticated by: ANTOINE TRAYLOR Date: 08/30/2024 14:27 Dictated By: Antoine Traylor M.D. Signed By: 08/30/24 1430 DD/ 1427 TD/TT: Broommaker: [facility] Radiology, Radiologi MD barb - 08/30/2024 [place] [address] Ultrasound Report Signed Patient: SAMANTHA BENJAMIN MR#: [id number] : 1995 Acct:[id number] Age/Sex: 29 / F ADM Date: 08/30/24 Loc: [facility] 250-[address]: Scotty Dhillon D.O. Ordering Physician: Jacquie,Scotty D.O. Date of Service: 08/30/24 Procedure(s): US OB BPP w non-stress Accession Number(s): [id number] cc: Scotty Dhillon D.O.; Jacques Mccarthy M.D. [place] [address] Patient Name: SAMANTHA BENJAMIN MRN: [facility]:[id number] date: 1995 Sex: F Assigned Patient Location: [facility] Current Patient Location: [facility] Accession/Order Number: [id number] Exam Date: 08/30/2024 13:43 Report Date: 08/30/2024 14:27 At the request of: SCOTTY DHILLON Procedure: US OB BPP w non-stress Ultrasound biophysical profile CLINICAL: Evaluate well-being. Clinical gestational age of 34 weeks 6 days. TECHNIQUE: Dedicated ultrasound imaging of the fetus was performed to include the senior digital designer's evaluation of biophysical profile. FINDINGS: Comparison: Ultrasound 08/24/2024 FETUS: There is a single living intrauterine fetus in vertex presentation. heart rate of 151 beats per minute. PLACENTA: The placenta is anterior in location. AMNIOTIC FLUID: The amniotic fluid index is 17.46 cm, with maximum vertical pocket of 7.12 cm. BIOPHYSICAL PROFILE: motion: 2 out of 2. tone: 2 out of 2. breathin out of 2. Amniotic fluid volume: 2 out of 2. Total score: 8 out of 8. OTHER FINDINGS: None. US/US OB BPP w non-stress IMPRESSION: 1. Single viable fetus in vertex presentation with heart rate of 151 beats per minute. 2. Total biophysical profile score of 8 out of 8. 3. Amniotic fluid index of 17.46 cm, with maximum vertical pocket of 7.12 cm. This is between the 50th and 95th percentile for clinical gestational age. Amniotic fluid index on prior study 08/24/2024 was 28.09 cm. Electronically authenticated by: ANTOINE TRAYLOR Date: 08/30/2024 14:27 Dictated By: Antoine Traylor M.D. Signed By: 08/30/24 1430 DD/ 1427 TD/TT: Broommaker: [facility] Radiology Study observation (narrative) [facility] US OB BPP W NON-STRESS Ordered By: Radiologist Radiology on 08-30-2024 [facility] Work Phone: Urinalysis macro (dipstick) panel (U)on 08-29-2024 Bilirubin, UA Negative Negative - 4(70) +++ mg/dL [facility] Blood, UA Negative Negative - 50 Hardeep/mcL [facility] Clarity, UA Clear [facility] Color, UA Yellow [facility] Glucose, UA Positive Negative - 1999(110) ++++ mg/dL [facility] Comment on above: 100 Interpretation and review of laboratory results Abnormal [facility] Ketones, UA Negative Negative - 160(16) ++++ mg/dL [facility] Leukocytes, UA Negative Negative - 500+++ Renee/mcL [facility] Nitrite, UA Negative Negative - Positive [facility] pH, UA 7 5 - 9 [facility] Protein, UA Positive Negative - 1999(20) ++++ mg/dL [facility] Comment on above: 30 Spec Grav, UA 1.02 1 - 1.03 [facility] Urobilinogen, UA 1.0 0.2 - 12 mg/dL [facility] Urinalysis macro (dipstick) panel (U)on 08-22-2024 Bilirubin, UA Negative Negative - 4(70) +++ mg/dL [facility] Blood, UA Negative Negative - 50 Hardeep/mcL [facility] Clarity, UA Clear [facility] Color, UA Yellow [facility] Glucose, UA Negative Negative - 1999(110) ++++ mg/dL [facility] Interpretation and review of laboratory results Normal [facility] Ketones, UA Negative Negative - 160(16) ++++ mg/dL [facility] Leukocytes, UA Negative Negative - 500+++ Renee/mcL [facility] Nitrite, UA Negative Negative - Positive [facility] pH, UA 7 5 - 9 [facility] Protein, UA Negative Negative - 1999(20) ++++ mg/dL [facility] Spec Grav, UA 1.015 1 - 1.03 [facility] Urobilinogen, UA 0.2 0.2 - 12 mg/dL [facility] Urinalysis macro (dipstick) panel (U)on 08-14-2024 Bilirubin, UA Negative Negative - 4(70) +++ mg/dL [facility] Blood, UA Positive Negative - 50 Hardeep/mcL [facility] Comment on above: trace-intact Clarity, UA Clear [facility] Color, UA Yellow [facility] Glucose, UA Negative Negative - 1999(110) ++++ mg/dL [facility] Interpretation and review of laboratory results Abnormal [facility] Ketones, UA Positive Negative - 160(16) ++++ mg/dL [facility] Comment on above: 40 Leukocytes, UA Negative Negative - 500+++ Renee/mcL [facility] Nitrite, UA Negative Negative - Positive [facility] pH, UA 6 5 - 9 [facility] Protein, UA Trace Negative - 1999(20) ++++ mg/dL [facility] Spec Grav, UA 1.02 1 - 1.03 [facility] Urobilinogen, UA 0.2 0.2 - 12 mg/dL [facility] ALL CBC WITH AUTO DIFFon BASOPHILS ABSOLUTE AUTO 0.1 [facility] Basophils/100 WBC (Bld) 0.3 % 0.2 - 2.0 % [facility] Eosinophils/100 WBC (Bld) 0.6 % Low 0.9 - 7.0 % [facility] Erythrocyte distribution width (RBC) [Ratio] 12.2 % 11.0 - 15.0 % [facility] Hematocrit (Bld) [Volume fraction] 36.7 % 36.0 - 48.0 % [facility] Hemoglobin (Bld) [Mass/Vol] 12.5 g/dL 12.0 - 16.0 g/dL [facility] IMMATURE GRANULOCYTES ABS AUTO 0.33 High [facility] Immature granulocytes/100 WBC (Bld) 2 % High 0.0 - 0.5 % [facility] Interpretation and review of laboratory results Abnormal [facility] LYMPHOCYTES ABSOLUTE AUTO 1.6 [facility] Lymphocytes/100 WBC (Bld) 9.9 % Low 20.5 - 60.0 % [facility] MCH (RBC) [Entitic mass] 29.7 pg 26.7 - 34.0 pg [facility] MCHC (RBC) [Mass/Vol] 34.1 g/dL 29.9 - 35.2 g/dL [facility] MCV (RBC) [Entitic vol] 87.2 fL 81.0 - 99.0 fL [facility] MONOCYTES ABSOLUTE AUTO 1 High [facility] Monocytes/100 WBC (Bld) 6.3 % 1.7 - 12.0 % [facility] NEUTROPHILS ABSOLUTE AUTO 13.2 High [facility] Neutrophils/100 WBC (Bld) 80.9 % High 43.0 - 75.0 % [facility] Platelet mean volume (Bld) [Entitic vol] 10.5 fL 9.5 - 13.5 fL [facility] EO # 0.1 [facility] PLT 247 [facility] RBC 4.21 [facility] WBC 16.3 High [facility] ALL CBC WITH AUTO DIFFon BASOPHILS ABSOLUTE AUTO 0.1 [facility] Basophils/100 WBC (Bld) 0.3 % 0.2 - 2.0 % [facility] Eosinophils/100 WBC (Bld) 0.2 % Low 0.9 - 7.0 % [facility] Erythrocyte distribution width (RBC) [Ratio] 12.1 % 11.0 - 15.0 % [facility] Hematocrit (Bld) [Volume fraction] 35.3 % Low 36.0 - 48.0 % [facility] Hemoglobin (Bld) [Mass/Vol] 12.1 g/dL 12.0 - 16.0 g/dL [facility] IMMATURE GRANULOCYTES ABS AUTO 0.31 High [facility] Immature granulocytes/100 WBC (Bld) 1.7 % High 0.0 - 0.5 % [facility] Interpretation and review of laboratory results Abnormal [facility] LYMPHOCYTES ABSOLUTE AUTO 1.4 [facility] Lymphocytes/100 WBC (Bld) 7.9 % Low 20.5 - 60.0 % [facility] MCH (RBC) [Entitic mass] 29.8 pg 26.7 - 34.0 pg [facility] MCHC (RBC) [Mass/Vol] 34.3 g/dL 29.9 - 35.2 g/dL [facility] MCV (RBC) [Entitic vol] 86.9 fL 81.0 - 99.0 fL [facility] MONOCYTES ABSOLUTE AUTO 1.3 High [facility] Monocytes/100 WBC (Bld) 7.1 % 1.7 - 12.0 % [facility] NEUTROPHILS ABSOLUTE AUTO 15.1 High [facility] Neutrophils/100 WBC (Bld) 82.8 % High 43.0 - 75.0 % [facility] Platelet mean volume (Bld) [Entitic vol] 10.5 fL 9.5 - 13.5 fL [facility] EO # 0 [facility] PLT 217 [facility] RBC 4.06 Low [facility] WBC 18.2 High [facility] UA (CLEAN/CATCH) PARENT TRAINER/KEYLA RO IF IND.on 08-04-2024 BILIRUBIN URINE Negative NEGATIVE [facility] BLOOD URINE Negative NEGATIVE [facility] Clarity (U) CLEAR CLEAR [facility] Color (U) YELLOW YELLOW [facility] GLUCOSE URINE UA 500 mg/dL Abnormal NEGATIVE [facility] Interpretation and review of laboratory results Abnormal [facility] Ketones Ql (U) Negative NEGATIVE mg/dL [facility] Leukocyte esterase Test strip Ql (U) Negative NEGATIVE [facility] NITRITE URINE Negative NEGATIVE [facility] pH (U) 6.0 [pH] 5.0 - 9.0 [facility] PROTEIN URINE Negative NEG/TRACE mg/dL [facility] SPECIFIC GRAVITY URINE 1.025 1.005 - 1.025 [facility] URINE MICROSCOPIC INDICATED NO [facility] UROBILINOGEN URINE 0.2 EU/dL 0.2 - 1.0 EU/dL [facility] Urinalysis macro (dipstick) panel (U)on 07-31-2024 Bilirubin, UA Negative Negative - 4(70) +++ mg/dL [facility] Blood, UA Positive Negative - 50 Hardeep/mcL [facility] Comment on above: small Clarity, UA Clear [facility] Color, UA Yellow [facility] Glucose, UA Positive Negative - 1999(110) ++++ mg/dL [facility] Comment on above: 250 Interpretation and review of laboratory results Abnormal [facility] Ketones, UA Negative Negative - 160(16) ++++ mg/dL [facility] Leukocytes, UA Negative Negative - 500+++ Renee/mcL [facility] Nitrite, UA Negative Negative - Positive [facility] pH, UA 6 5 - 9 [facility] Protein, UA Trace Negative - 2000(20) ++++ mg/dL [facility] Spec Grav, UA 1.02 1 - 1.03 [facility] Urobilinogen, UA 0.2 0.2 - 12 mg/dL [facility] Urinalysis macro (dipstick) panel (U)on 07-17-2024 Bilirubin, UA Negative Negative - 4(70) +++ mg/dL [facility] Blood, UA Negative Negative - 50 Hardeep/mcL [facility] Clarity, UA Clear [facility] Color, UA Yellow [facility] Glucose, UA Positive Negative - 1999(110) ++++ mg/dL [facility] Comment on above: 500 Interpretation and review of laboratory results Abnormal [facility] Ketones, UA Positive Negative - 160(16) ++++ mg/dL [facility] Comment on above: TRACE Leukocytes, UA Negative Negative - 500+++ Renee/mcL [facility] Nitrite, UA Negative Negative - Positive [facility] pH, UA 5.5 5 - 9 [facility] Protein, UA Negative Negative - 1999(20) ++++ mg/dL [facility] Spec Grav, UA 1.02 1 - 1.03 [facility] Urobilinogen, UA 0.2 0.2 - 12 mg/dL [facility] Glucose random or fasting- P OCTon 07-14-2024 External Glucose Fasting Or Random (Fbs) 169 [facility] ALL CBC WITH AUTO DIFFon BASOPHILS ABSOLUTE AUTO 0.1 [facility] Basophils/100 WBC (Bld) 0.3 % 0.2 - 2.0 % [facility] Eosinophils/100 WBC (Bld) 0.3 % Low 0.9 - 7.0 % [facility] Erythrocyte distribution width (RBC) [Ratio] 12.1 % 11.0 - 15.0 % [facility] Hematocrit (Bld) [Volume fraction] 37.3 % 36.0 - 48.0 % [facility] Hemoglobin (Bld) [Mass/Vol] 12.7 g/dL 12.0 - 16.0 g/dL [facility] IMMATURE GRANULOCYTES ABS AUTO 0.32 High [facility] Immature granulocytes/100 WBC (Bld) 1.8 % High 0.0 - 0.5 % [facility] Interpretation and review of laboratory results Abnormal [facility] LYMPHOCYTES ABSOLUTE AUTO 1.5 [facility] Lymphocytes/100 WBC (Bld) 8.3 % Low 20.5 - 60.0 % [facility] MCH (RBC) [Entitic mass] 30.3 pg 26.7 - 34.0 pg [facility] MCHC (RBC) [Mass/Vol] 34 g/dL 29.9 - 35.2 g/dL [facility] MCV (RBC) [Entitic vol] 89 fL 81.0 - 99.0 fL [facility] MONOCYTES ABSOLUTE AUTO 0.9 High [facility] Monocytes/100 WBC (Bld) 5.2 % 1.7 - 12.0 % [facility] NEUTROPHILS ABSOLUTE AUTO 15 High [facility] Neutrophils/100 WBC (Bld) 84.1 % High 43.0 - 75.0 % [facility] Platelet mean volume (Bld) [Entitic vol] 10.4 fL 9.5 - 13.5 fL [facility] EO # 0.1 [facility] TB PLT 255 [facility] RBC 4.19 Low [facility] WBC 17.8 High [facility] Urinalysis macro (dipstick) panel (U)on 06-15-2024 Bilirubin, UA Negative Negative - 4(70) +++ mg/dL [facility] Blood, UA Negative Negative - 50 Hardeep/mcL [facility] Clarity, UA Clear [facility] Color, UA Yellow [facility] Glucose, UA Positive Negative - 1999(110) ++++ mg/dL [facility] Interpretation and review of laboratory results Abnormal [facility] Ketones, UA Negative Negative - 160(16) ++++ mg/dL [facility] Leukocytes, UA Positive Negative - 500+++ Renee/mcL [facility] Nitrite, UA Negative Negative - Positive [facility] pH, UA 5.5 5 - 9 [facility] Protein, UA Negative Negative - 1999(20) ++++ mg/dL [facility] Spec Grav, UA 1.02 1 - 1.03 [facility] Urobilinogen, UA 1.0 0.2 - 12 mg/dL [facility] Urinalysis macro (dipstick) panel (U)on 05-18-2024 Bilirubin, UA Negative Negative - 4(70) +++ mg/dL [facility] Blood, UA Negative Negative - 50 Hardeep/mcL [facility] Clarity, UA Clear [facility] Color, UA Yellow [facility] Glucose, UA Negative Negative - 1999(110) ++++ mg/dL [facility] Interpretation and review of laboratory results Normal [facility] Ketones, UA Negative Negative - 160(16) ++++ mg/dL [facility] Leukocytes, UA Negative Negative - 500+++ Renee/mcL [facility] Nitrite, UA Negative Negative - Positive [facility] pH, UA 7 5 - 9 [facility] Protein, UA Negative Negative - 2000(20) ++++ mg/dL [facility] Spec Grav, UA 1.025 1 - 1.03 [facility] Urobilinogen, UA 0.2 0.2 - 12 mg/dL [facility] Urinalysis macro (dipstick) panel (U)on 04-20-2024 Bilirubin, UA Positive Negative - 4(70) +++ mg/dL [facility] Comment on above: small Blood, UA Negative Negative - 50 Hardeep/mcL [facility] Clarity, UA Clear [facility] Color, UA Yellow [facility] Glucose, UA Negative Negative - 1999(110) ++++ mg/dL [facility] Interpretation and review of laboratory results Abnormal [facility] Ketones, UA Positive Negative - 160(16) ++++ mg/dL [facility] Comment on above: trace Leukocytes, UA Negative Negative - 500+++ Renee/mcL [facility] Nitrite, UA Negative Negative - Positive [facility] pH, UA 6.5 5 - 9 [facility] Protein, UA Trace Negative - 2000(20) ++++ mg/dL [facility] Spec Grav, UA 1.030 1 - 1.03 [facility] Urobilinogen, UA 1.0 0.2 - 12 mg/dL [facility] Activated partial thrombopla stin time (aPTT) in platelet poor plasma by coagulation aOrdered By: Terry Dudley on 01-31-2024 aPTT Coag (PPP) [Time] 26.1 s 25.1-36.5 [facility] Comment on above: A hematocrit value g reater than 55% may lead to inaccurate results in coagulation testing. Patients having hematocrit values >55% require a special collection tube for coagulation studies. Please contact the laboratory at [phone] for redraw instructions. Alanine aminotransferase [En zymatic activity/volume] in Serum or PlasmaOrdered By: Terry Dudley on 01-31-2024 ALT [Catalytic activity/Vol] 22 U/L Normal 7-52 [facility] Comment on above: Performed By: #### H S TROP, PTT, CMP, DDIMER, BNP, CK, PT, CBC #### [facility] [address] [place] [address] Albumin [Mass/volume] in Ser um or Plasma by Bromocresol green (BCG) dye binding methoOrdered By: Terry Dudley on 01-31-2024 Albumin BCG dye [Mass/Vol] 4.7 g/dL 3.5-5.7 [facility] Alkaline phosphatase [Enzyma tic activity/volume] in Serum or PlasmaOrdered By: Terry Dudley on 01-31-2024 ALP [Catalytic activity/Vol] 67 U/L Normal 34-104 [facility] Comment on above: Performed By: #### H S TROP, PTT, CMP, DDIMER, BNP, CK, PT, CBC #### [address] Aspartate aminotransferase [ Enzymatic activity/volume] in Serum or PlasmaOrdered By: Terry Dudley on 01-31-2024 AST [Catalytic activity/Vol] 17 U/L Normal 13-39 [facility] Comment on above: Performed By: #### H S TROP, PTT, CMP, DDIMER, BNP, CK, PT, CBC #### [address] Automated basophil %Ordered By: Terry Dudley on 01-31-2024 Basophils/100 WBC (Bld) 0.6 % Normal . [facility] Comment on above: Performed By: #### H S TROP, PTT, CMP, DDIMER, BNP, CK, PT, CBC #### [address] Automated basophil countOrde red By: Terry Dudley on 01-31-2024 Basophils (Bld) [#/Vol] 0.1 10*3/uL Normal 0.0-0.2 [facility] Comment on above: Result Comment: PERF ORMED BY: [place] [address] PATHOLOGIST NETWORK OPERATIONS ANALYST CARLOS HITCHCOCK M.D. Performed By: #### H S TROP, PTT, CMP, DDIMER, BNP, CK, PT, CBC #### [address] Automated blood monocyte cou ntOrdered By: Terry Dudley on 01-31-2024 Monocytes (Bld) [#/Vol] 1.3 10*3/uL High 0.0-0.8 [facility] Comment on above: Performed By: #### H S TROP, PTT, CMP, DDIMER, BNP, CK, PT, CBC #### [address] Automated eosinophil %Ordere d By: Terry Dudley on 01-31-2024 Eosinophils/100 WBC (Bld) 0.3 % Normal . [facility] Comment on above: Performed By: #### H S TROP, PTT, CMP, DDIMER, BNP, CK, PT, CBC #### [address] Automated eosinophil countOr dered By: Terry Dudley on 01-31-2024 Eosinophils (Bld) [#/Vol] 0.1 10*3/uL Normal 0.0-0.45 [facility] Comment on above: Performed By: #### H S TROP, PTT, CMP, DDIMER, BNP, CK, PT, CBC #### [address] Automated monocyte %Ordered By: Terry Dudley on 01-31-2024 Monocytes/100 WBC (Bld) 7.5 % Normal . [facility] Comment on above: Performed By: #### H S TROP, PTT, CMP, DDIMER, BNP, CK, PT, CBC #### [address] Automated neutrophil %Ordere d By: Terry Dudley on 01-31-2024 Neutrophils/100 WBC (Bld) 79.8 % Normal . [facility] Comment on above: Performed By: #### H S TROP, PTT, CMP, DDIMER, BNP, CK, PT, CBC #### [address] BNP ser/plasOrdered By: Delgado Dudley on 01-31-2024 Natriuretic peptide B (Bld) [Mass/Vol] 30.0 pg/mL Normal 5-100 [facility] Comment on above: Result Comment: PERF ORMED BY: [place] [address] PATHOLOGIST NETWORK OPERATIONS ANALYST CARLOS HITCHCOCK M.D. Performed By: #### H S TROP, PTT, CMP, DDIMER, BNP, CK, PT, CBC #### [address] Bilirubin Test strip Ql (U)O rdered By: Terry Dudley on 01-31-2024 Bilirubin Ql (U) Negative Negative [facility] Bilirubin.total [Mass/volume ] in Serum or PlasmaOrdered By: Terry Dudley on 01-31-2024 Bilirubin [Mass/Vol] 0.5 mg/dL Normal 0.3-1.0 [facility] Comment on above: Performed By: #### H S TROP, PTT, CMP, DDIMER, BNP, CK, PT, CBC #### [place] [address] [place] Calcium [Mass/volume] in Ser um or PlasmaOrdered By: Terry Dudley on 01-31-2024 Calcium [Mass/Vol] 9.6 mg/dL Normal 8.6-10.3 [facility] Comment on above: Performed By: #### H S TROP, PTT, CMP, DDIMER, BNP, CK, PT, CBC #### [address] Carbon dioxide, total [Moles /volume] in Serum or PlasmaOrdered By: Terry Dudley on 01-31-2024 CO2 [Moles/Vol] 30.1 mmol/L Normal 21.0-31.0 [facility] Comment on above: Performed By: #### H S TROP, PTT, CMP, DDIMER, BNP, CK, PT, CBC #### [facility] [address] [place] [address] [place] Chloride [Moles/volume] in S marty or PlasmaOrdered By: Terry Dudley on 01-31-2024 Chloride [Moles/Vol] 101 mmol/L Normal 98-107 [facility] Comment on above: Performed By: #### H S TROP, PTT, CMP, DDIMER, BNP, CK, PT, CBC #### [address] Color of Urine by AutoOrdere d By: Terry Dudley on 01-31-2024 Color (U) Colorless Normal Yellow [facility] Comment on above: Order Comment: Name Collection Type:: Clean-Voided Midstream Performed By: #### U A, UHCG #### [address] Complete Blood Count Auto Di ffon 01-31-2024 Mean Corpuscular HGB Conc 34.6 g/dL Normal 32.0-35.0 [facility] Comment on above: Performed By: #### H S TROP, PTT, CMP, DDIMER, BNP, CK, PT, CBC #### [address] Monocytes/100 WBC (Bld) 14.85 % Normal 0.00-20.00 [facility] Comment on above: Performed By: #### H S TROP, PTT, CMP, DDIMER, BNP, CK, PT, CBC #### [address] NRBC% 0.0 /100{WBC} Normal 0-0.5 [facility] Comment on above: Performed By: #### H S TROP, PTT, CMP, DDIMER, BNP, CK, PT, CBC #### [address] Comprehensive Metabolic Pane urszula 01-31-2024 Albumin [Mass/Vol] 4.7 g/dL Normal 3.5-5.7 [facility] Comment on above: Performed By: #### H S TROP, PTT, CMP, DDIMER, BNP, CK, PT, CBC #### [address] Creatinine Clr Calc Pharmacy 119.17 Normal [facility] Comment on above: Result Comment: PERF ORMED BY: [place] [address] PATHOLOGIST NETWORK OPERATIONS ANALYST CARLOS HITCHCOCK M.D. Performed By: #### H S TROP, PTT, CMP, DDIMER, BNP, CK, PT, CBC #### [address] GFR/1.73 sq M.predicted MDRD (S/P/Bld) [Vol rate/Area] mL/min/{1.73_m2} Normal [facility] Comment on above: Performed By: #### H S TROP, PTT, CMP, DDIMER, BNP, CK, PT, CBC #### [address] Creatine kinase [Enzymatic a ctivity/volume] in Serum or PlasmaOrdered By: Terry Dudley on 01-31-2024 CK [Catalytic activity/Vol] 76 U/L Normal 30-223 [facility] Comment on above: Performed By: #### H S TROP, PTT, CMP, DDIMER, BNP, CK, PT, CBC #### [address] Creatinine [Mass/volume] in Serum or PlasmaOrdered By: Terry Dudley on 01-31-2024 Creatinine [Mass/Vol] 0.80 mg/dL Normal 0.60-1.20 [facility] Comment on above: Performed By: #### H S TROP, PTT, CMP, DDIMER, BNP, CK, PT, CBC #### [address] D-Dimer High Sensitivityon 0 01-31-2024 D-Dimer High Sensitivity < 200 Normal 0-243 [facility] Comment on above: Result [...] coagulation studies. Please contact the laboratory at [phone] for redraw instructions. PERFORMED BY: [place] [address] PATHOLOGIST NETWORK OPERATIONS ANALYST CARLOS HITCHCOCK M.D. Performed By: #### H S TROP, PTT, CMP, DDIMER, BNP, CK, PT, CBC #### [place] [id number] [facility] ECG 12 lead ECGon 01-31-2024 ECG 12 lead ECG [facility] [place] [address] [place] [address] Electrocardiograph Report Signed Patient: Samantha Benjamin MR#: [id number] : 1995 Acct:[id number] Age/Sex: 28 / F ADM Date: 01/31/24 Loc: ER Room: Type: [facility] ER Attending Dr: Ordering Provider: Terry Dudley [...] By Terry Dudley DO 1923 Normal [facility] Erythrocyte distribution wid th [Ratio] by Automated countOrdered By: Terry Dudley on 01-31-2024 Erythrocyte distribution width (RBC) [Ratio] 12.4 % Normal 11.9-15.3 [facility] Comment on above: Performed By: #### H S TROP, PTT, CMP, DDIMER, BNP, CK, PT, CBC #### [facility] [address] Erythrocytes [#/volume] in B lood by Automated countOrdered By: Terry Dudley on 01-31-2024 RBC (Bld) [#/Vol] 4.93 10*6/uL Normal 3.60-5.00 [facility] Comment on above: Performed By: #### H S TROP, PTT, CMP, DDIMER, BNP, CK, PT, CBC #### [facility] [address] Fibrin D-dimer [Presence] in Platelet poor plasma by Latex agglutinationOrdered By: Terry Dudley on 01-31-2024 Fibrin D-dimer LA Ql (PPP) < 200 ng/mL 0-243 [facility] Comment on above: The reference range [...] coagulation studies. Please contact the laboratory at [phone] for redraw instructions. Glucose [Mass/volume] in Ser um or PlasmaOrdered By: Terry Dudley on 01-31-2024 Glucose [Mass/Vol] 91 mg/dL Normal 70-100 [facility] Comment on above: ADA recommended refe rence rangeRandom Glucose Reference Range is dependent on time and content of last meal. Glucose of more than 200 mg/dL in a nonstressed, ambulatory subject supports the diagnosis of Diabetes Mellitus. Result Comment: [facility] Glucose Reference Range is dependent on time and content of last meal. Glucose of more than 200 mg/dL in a nonstressed, ambulatory subject supports the diagnosis of Diabetes Mellitus. ADA recommended reference range Performed By: #### H S TROP, PTT, CMP, DDIMER, BNP, CK, PT, CBC #### [address] Glucose [Mass/volume] in Uri ne by Test stripOrdered By: Terry Dudley on 01-31-2024 Glucose Test strip (U) [Mass/Vol] Normal mg/dL Normal [facility] HCG ( test) IA.rapi d Ql (U)Ordered By: Terry Dudley on 01-31-2024 HCG ( test) Ql (U) Positive High [facility] HCG,Urineon 01-31-2024 Beta HCG ( test) Ql (U) Positive High [facility] Comment on above: Order Comment: Name Collection Type:: Clean-Voided Midstream Result Comment: PERF ORMED BY: [place] [address] PATHOLOGIST [employer]PER[employer] ANALYST CARLOS HITCHCOCK M.D. Performed By: #### H S TROP, PTT, CMP, DDIMER, BNP, CK, PT, CBC #### [address] Hematocrit [Volume Fraction] of Blood by Automated countOrdered By: Terry Dudley on 01-31-2024 Hematocrit (Bld) [Volume fraction] 45.1 % Normal 34.0-46.4 [facility] Comment on above: Performed By: #### H S TROP, PTT, CMP, DDIMER, BNP, CK, PT, CBC #### [address] Hemoglobin Test strip Ql (U) Ordered By: Terry Dudley on 01-31-2024 Hemoglobin Ql (U) Negative Negative [facility] Hemoglobin [Mass/volume] in BloodOrdered By: Terry Dudley on 01-31-2024 Hemoglobin (Bld) [Mass/Vol] 15.6 g/dL High 11.8-15.4 [facility] Comment on above: Performed By: #### H S TROP, PTT, CMP, DDIMER, BNP, CK, PT, CBC #### [facility] [address] INR in Platelet poor plasma by Coagulation assayOrdered By: Terry Dudley on 01-31-2024 INR Coag (PPP) [Relative time] 1.2 {INR} Normal [facility] Comment on above: INR Therapeutic Rang [...] CMP, DDIMER, BNP, CK, PT, CBC #### [facility] [address] [place] [address] [place] Ketones [Presence] in Urine by Test stripOrdered By: Terry Dudley on 01-31-2024 Ketones Ql (U) Negative Normal Negative [facility] Comment on above: Order Comment: Name Collection Type:: Clean-Voided Midstream Performed By: #### U A, CG #### [facility] [address] [place] [address] [place] Leukocyte esterase [Presence ] in Urine by Test stripOrdered By: Terry Dudley on 01-31-2024 Leukocyte esterase Test strip Ql (U) Negative Normal Negative [facility] Comment on above: Order Comment: Name Collection Type:: Clean-Voided Midstream Performed By: #### U A, UHCG #### [address] Leukocytes [#/volume] correc edna for nucleated erythrocytes in Blood by Automated counOrdered By: Terry Dudley on 01-31-2024 WBC corrected for nucl RBC Auto (Bld) [#/Vol] 17.5 10*3/uL High 3.8-11.6 [facility] Leukocytes [#/volume] in Blo od by Automated countOrdered By: Terry Dudley on 01-31-2024 WBC (Bld) [#/Vol] 17.5 10*3/uL High 3.8-11.6 [facility] Comment on above: Performed By: #### H S TROP, PTT, CMP, DDIMER, BNP, CK, PT, CBC #### [address] Lymphocytes [#/volume] in Bl ood by Automated countOrdered By: Terry Dudley on 01-31-2024 Lymphocytes (Bld) [#/Vol] 2.1 10*3/uL Normal 1.00-4.8 [facility] Comment on above: Performed By: #### H S TROP, PTT, CMP, DDIMER, BNP, CK, PT, CBC #### [address] Lymphocytes/100 leukocytes i n Blood by Automated countOrdered By: Terry Dudley on 01-31-2024 Lymphocytes/100 WBC (Bld) 11.8 % Normal . [facility] Comment on above: Performed By: #### H S TROP, PTT, CMP, DDIMER, BNP, CK, PT, CBC #### [address] MCH [Entitic mass] by Automa edna countOrdered By: Terry Dudley on 01-31-2024 MCH (RBC) [Entitic mass] 31.7 pg Normal 24.7-34.3 [facility] Comment on above: Performed By: #### H S TROP, PTT, CMP, DDIMER, BNP, CK, PT, CBC #### [address] MCHC Auto (RBC) [Mass/Vol]Or dered By: Terry Dudley on 01-31-2024 MCHC (RBC) [Mass/Vol] 34.6 g/dL 32.0-35.0 [facility] MCV [Entitic volume] by Auto mated countOrdered By: Terry Dudley on 01-31-2024 MCV (RBC) [Entitic vol] 91.4 fL Normal 80-100 [facility] Comment on above: Performed By: #### H S TROP, PTT, CMP, DDIMER, BNP, CK, PT, CBC #### [facility] [address] Monocyte distribution width [Entitic volume] in Blood by AutomatedOrdered By: Terry Dudley on 01-31-2024 Monocyte distribution width Auto (Bld) [Entitic vol] 14.85 % 0.00-20.00 [facility] Neutrophils [#/volume] in Bl ood by Automated countOrdered By: Terry Dudley on 01-31-2024 Neutrophils (Bld) [#/Vol] 14.0 10*3/uL High 1.8-7.7 [facility] Comment on above: Performed By: #### H S TROP, PTT, CMP, DDIMER, BNP, CK, PT, CBC #### [facility] [address] Nitrite Test strip Ql (U)Ord ered By: Terry Dudley on 01-31-2024 Nitrite Ql (U) Negative Negative [facility] No Panel InformationOrdered By: Terry Dudley on 01-31-2024 Estimated GFR (CKD-EPI) > 60.0 mL/Min [facility] Creatinine Clearance (Chem 119.17 [facility] Nucleated erythrocytes [Pres ence] in Blood by Automated countOrdered By: Terry Dudley on 01-31-2024 Nucleated RBC Auto Ql (Bld) 0.0 /100{WBC} 0-0.5 [facility] Partial Thromboplastin Timeo n 01-31-2024 aPTT Coag (Bld) [Time] 26.1 s Normal 25.1-36.5 [facility] Comment on above: Result Comment: A he matocrit value greater than 55% may lead to inaccurate results in coagulation testing. Patients having hematocrit values >55% require a special collection tube for coagulation studies. Please contact the laboratory at [phone] for redraw instructions. Performed By: #### H S TROP, PTT, CMP, DDIMER, BNP, CK, PT, CBC #### [facility] [address] Platelet mean volume [Entiti c volume] in Blood by Automated countOrdered By: Terry Dudley on 01-31-2024 Platelet mean volume (Bld) [Entitic vol] 8.7 fL Normal 6.3-10.7 [facility] Comment on above: Performed By: #### H S TROP, PTT, CMP, DDIMER, BNP, CK, PT, CBC #### [address] Platelets [#/volume] in Bloo d by Automated countOrdered By: Terry Dudley on 01-31-2024 Platelets (Bld) [#/Vol] 297 10*3/uL Normal 150-450 [facility] Comment on above: Performed By: #### H S TROP, PTT, CMP, DDIMER, BNP, CK, PT, CBC #### [address] Potassium [Moles/volume] in Serum or PlasmaOrdered By: Terry Dudley on 01-31-2024 Potassium [Moles/Vol] 3.4 mmol/L Low 3.5-5.1 [facility] Comment on above: Performed By: #### H S TROP, PTT, CMP, DDIMER, BNP, CK, PT, CBC #### [address] Protein Test strip (U) [Mass /Vol]Ordered By: Terry Dudley on 01-31-2024 Protein (U) [Mass/Vol] Negative Negative [facility] Protein [Mass/volume] in Ser um or PlasmaOrdered By: Terry Dudley on 01-31-2024 Protein [Mass/Vol] 7.7 g/dL Normal 6.4-8.9 [facility] Comment on above: Performed By: #### H S TROP, PTT, CMP, DDIMER, BNP, CK, PT, CBC #### [address] Prothrombin time (PT)Ordered By: Terry Dudley on 01-31-2024 PT Coag (PPP) [Time] 14.0 s High 9.0-12.9 [facility] Comment on above: A hematocrit value g reater than 55% may lead to inaccurate results in coagulation testing. Patients having hematocrit values >55% require a special collection tube for coagulation studies. Please contact the laboratory at [phone] for redraw instructions. Result Comment: A he matocrit value greater than 55% may lead to inaccurate results in coagulation testing. Patients having hematocrit values >55% require a special collection tube for coagulation studies. Please contact the laboratory at [phone] for redraw instructions. Performed By: #### H S TROP, PTT, CMP, DDIMER, BNP, CK, PT, CBC #### [address] Serum globulin measurement b y calculation (mass/volume)Ordered By: Terry Dudley on 01-31-2024 Globulin (S) [Mass/Vol] 3.0 g/dL [facility] Comment on above: Performed By: #### H S TROP, PTT, CMP, DDIMER, BNP, CK, PT, CBC #### [facility] [address] [place] [address] Serum or plasma albumin/glob ulin mass ratioOrdered By: Terry Dudley on 01-31-2024 Albumin/Globulin [Mass ratio] 1.6 {ratio} [facility] Comment on above: Performed By: #### H S TROP, PTT, CMP, DDIMER, BNP, CK, PT, CBC #### [address] Serum or plasma anion gap de terminationOrdered By: Terry Dudley on 01-31-2024 Anion gap [Moles/Vol] 8.3 mmol/L Normal 6.0-15.0 [facility] Comment on above: Performed By: #### H S TROP, PTT, CMP, DDIMER, BNP, CK, PT, CBC #### [address] Sodium [Moles/volume] in Ser um or PlasmaOrdered By: Terry Dudley on 01-31-2024 Sodium [Moles/Vol] 136 mmol/L Normal 136-145 [facility] Comment on above: Performed By: #### H S TROP, PTT, CMP, DDIMER, BNP, CK, PT, CBC #### [address] Specific gravity Test strip (U) [Rel density]Ordered By: Terry Dudley on 01-31-2024 Specific gravity (U) [Rel density] 1.005 1.001-1.03 0 [facility] Troponin I High Sensitivityo n 01-31-2024 Troponin I High Sensitivity 3.5 pg/mL Normal 0.0-15.0 [facility] Comment on above: Result Comment: PERF ORMED BY: [place] [address] PATHOLOGIST NETWORK OPERATIONS ANALYST CARLOS HITCHCOCK M.D. Performed By: #### H S TROP, PTT, CMP, DDIMER, BNP, CK, PT, CBC #### [address] Troponin I.cardiac [Mass/vol ume] in Serum or Plasma by Detection limit <= 0.01 ng/Ordered By: Terry Dudley on 01-31-2024 Troponin I.cardiac DL <= 0.01 ng/mL [Mass/Vol] 3.5 pg/mL 0.0-15.0 [facility] Urea nitrogen [Mass/volume] in Serum or PlasmaOrdered By: Terry Dudley on 01-31-2024 Urea nitrogen [Mass/Vol] 10 mg/dL Normal 7-25 [facility] Comment on above: Performed By: #### H S TROP, PTT, CMP, DDIMER, BNP, CK, PT, CBC #### [place] [address] [place] Urinalysison 01-31-2024 Bilirubin,Urine Negative Normal Negative [facility] Comment on above: Order Comment: Name Collection Type:: Clean-Voided Midstream Performed By: #### U A, UHCG #### [facility] [address] Glucose Ql (U) Normal Normal Normal [facility] Comment on above: Order Comment: Name Collection Type:: Clean-Voided Midstream Performed By: #### U A, UHCG #### [place] [address] [place] Nitrite,Urine Negative Normal Negative [facility] Comment on above: Order Comment: Name Collection Type:: Clean-Voided Midstream Performed By: #### U A, UHCG #### [address] Occult Blood,Urine Negative Normal Negative [facility] Comment on above: Order Comment: Name Collection Type:: Clean-Voided Midstream Performed By: #### U A, UHCG #### [place] [address] [place] Protein,Urine Negative Normal Negative [facility] Comment on above: Order Comment: Name Collection Type:: Clean-Voided Midstream Performed By: #### U A, UHCG #### [facility] [address] [place] [address] Specificy [place],Urine 1.005 Normal 1.001-1.03 0 [facility] Comment on above: Order Comment: Name Collection Type:: Clean-Voided Midstream Performed By: #### U A, UHCG #### [facility] [address] [place] [address] [place] Urobilinogen,Urine Normal Normal Normal [facility] Comment on above: Order Comment: Name Collection Type:: Clean-Voided Midstream Performed By: #### U A, UHCG #### [facility] [address] [place], [place] [id number] [facility] Urine appearanceOrdered By: Terry Dudley on 01-31-2024 Appearance (U) Clear Normal Clear [facility] Comment on above: Order Comment: Name Collection Type:: Clean-Voided Midstream Performed By: #### U A, UHCG #### [facility] [address] [id number] [facility] Urobilinogen Test strip (U) [Mass/Vol]Ordered By: Terry Dudley on 01-31-2024 Urobilinogen (U) [Mass/Vol] Normal mg/dL Normal [facility] pH of Urine by Test stripOrd ered By: Terry Dudley on 01-31-2024 pH (U) 6.5 [pH] Normal 5.0-9.0 [facility] Comment on above: Order Comment: Name Collection Type:: Clean-Voided Midstream Performed By: #### U A UHCG #### [facility] [address] [place] [address] PAP ACOG PANEL 2: 23 to 31on 10-14-2021 . . Normal [facility] Comment on above: Performed By: #### P TT #### [facility] [address] [place] [address] Kaela Dimas Age Gdln ACOG Testing 23- Normal [facility] Comment on above: Performed By: #### P TT #### [facility] [address] [address] Kaela Dimas DIAGNOSIS: Comment Normal [facility] Comment on above: Result Comment: NEGA TIVE FOR INTRAEPITHELIAL LESION OR MALIGNANCY. CELLULAR CHANGES ASSOCIATED WITH INFLAMMATION ARE PRESENT. Performed By: #### P TT #### [facility] [address] [address] Kaela Dimas Methodology: Comment Normal [facility] Comment on above: Result Comment: This liquid based ThinPrep(R) pap test was screened with the use of an image guided system. Performed By: #### P TT #### [facility] [address] [place] [address] Kaela Dimas Note: Comment Normal [facility] Comment on above: Result Comment: The Pap smear is a screening test designed to aid in the detection of premalignant and malignant conditions of the uterine cervix. It is not a diagnostic procedure and should not be used as the sole means of detecting cervical cancer. Both false-positive and false-negative reports do occur. . Performed By: #### P TT #### [facility] [address] [place] [address] Kaela Judie Performed by: Comment Normal [facility] Comment on above: Result Comment: Nancy Collins, [employer] (ASCP) Performed By: #### P TT #### [facility] [address] [place] [address] Kaela Judie Reflex Criteria: Comment Normal [facility] Comment on above: Result Comment: The HPV DNA reflex criteria were not met with this specimen result therefore, no HPV testing was performed. . Performed By: #### P TT #### [facility] [address] [place] [address] Kaela Judie Specimen adequacy: Comment Normal [facility] Comment on above: Result Comment: Sati sfactory for evaluation. Endocervical and/or squamous metaplastic cells (endocervical component) are present. Performed By: #### P TT #### [facility] [address] [place] [address] Kaeal Judie CBC AUTO DIFFon 02-07-2021 BASO # 0.1 103/ul Normal 0.0-0.1 [facility] Comment on above: Performed By: #### C BC #### [facility] [address] [place] [address] Kaela Judie Basophils/100 WBC (Bld) 0.3 % Normal 0.2-2.0 [facility] Comment on above: Performed By: #### C BC #### [facility] [address] [place] [address] Kaela Judie EO # 0.1 103/ul Normal 0.0-0.7 [facility] Comment on above: Performed By: #### C BC #### [facility] [address] [place] [address] Kaela Judie Eosinophils/100 WBC (Bld) 0.5 % Critically low 0.9-7.0 [facility] Comment on above: Performed By: #### C BC #### [facility] [address] [place], [place] [id number] Kaela Judie Erythrocyte distribution width (RBC) [Ratio] 12.3 % Normal 11.0-15.0 [facility] Comment on above: Performed By: #### C BC #### [facility] [address] [place] [address] Kaela Judie Hematocrit (Bld) [Volume fraction] 33.8 % Critically low 36.0-48.0 [facility] Comment on above: Performed By: #### C BC #### [facility] [address] [place] [address] Kaela Judie Hemoglobin (Bld) [Mass/Vol] 11.6 g/dL Critically low 12.0-16.0 [facility] Comment on above: Performed By: #### C BC #### [facility] [address] [place] [address] Kaela Judie IG # 0.20 10e3/ul Critically high 0.00-0.03 [facility] Comment on above: Performed By: #### C BC #### [facility] [address] [place] [address] Kaela Judie IG % 1.2 % Critically high 0.0-0.5 [facility] Comment on above: Performed By: #### C BC #### [facility] [address] [place] [address] Kaela Judie LYMPH # 1.6 103/ul Normal 1.2-3.8 [facility] Comment on above: Performed By: #### C BC #### [facility] [address] [place] [address] Kaela Judie Lymphocytes/100 WBC (Bld) 9.2 % Critically low 20.5-60.0 [facility] Comment on above: Performed By: #### C BC #### [facility] [address] [place] [address] Kaela Judie MANUAL DIFF REQ NO Normal [facility] Comment on above: Performed By: #### C BC #### [facility] [address] [place] [address] Kaela Dimas MCH (RBC) [Entitic mass] 30.8 pg Normal 26.7-34.0 [facility] Comment on above: Performed By: #### C BC #### [facility] [address] [place], [place] [id number] Kaela Dimas MCHC (RBC) [Mass/Vol] 34.3 g/dL Normal 29.9-35.2 [facility] Comment on above: Performed By: #### C BC #### [facility] [address] [address] Kaela Dimas MCV (RBC) [Entitic vol] 89.7 fL Normal 81.0-99.0 [facility] Comment on above: Performed By: #### C BC #### [facility] [address] [place] [address] Kaela Dimas MONO # 0.9 103/ul Critically high 0.3-0.8 [facility] Comment on above: Performed By: #### C BC #### [facility] [address] [place] [address] Kaela Dimas Monocytes/100 WBC (Bld) 5.5 % Normal 1.7-12.0 [facility] Comment on above: Performed By: #### C BC #### [facility] [address] [place] [address] Kaela Dimas NEUT # 14.1 103/ul Critically high 1.4-6.5 [facility] Comment on above: Performed By: #### C BC #### [facility] [address] [place] [address] Kaela Dimas Neutrophils/100 WBC (Bld) 83.3 % Critically high 43.0-75.0 [facility] Comment on above: Performed By: #### C BC #### [facility] [address] [place], [place] [id number] Kaela Dimas Platelet mean volume (Bld) [Entitic vol] 11.0 fL Normal 9.5-13.5 [facility] Comment on above: Performed By: #### C BC #### [facility] [address] [place], [place] [id number] Kaela Dimas PLT 192 103/ul Normal 150-450 [facility] Comment on above: Performed By: #### C BC #### [facility] [address] [place] [address] Kaela Dimas RBC 3.77 106/ul Critically low 4.20-5.40 [facility] Comment on above: Performed By: #### C BC #### [facility] [address] [id number] Kaela Dimas WBC 16.9 103/ul Critically high 4.0-11.0 [facility] Comment on above: Performed By: #### C BC #### [facility] [address] [place] [address] Kaela Dimas ASYMPTOMATIC COVID-19 ANTIGE Non 02-05-2021 EUA Statement SEE BELOW Normal [facility] Comment on above: Result Comment: This [...] By: #### G TT3P #### [facility] [address] [place] [address] Kaela Dimas SARS-CoV-2 (COVID-19) RNA RIGOBERTO+probe Ql (Unsp spec) Negative Normal NEGATIVE [facility] Comment on above: Result Comment: Nega tive results are presumptive. They do not preclude infection and should not be used as the sole basis for treatment decisions. Additional confirmatory testing by a molecular method should be considered. Performed By: #### G TT3P #### [facility] [address] [place] [address] Kaela Judie CBC AUTO DIFFon 02-05-2021 BASO # 0.1 103/ul Normal 0.0-0.1 [facility] Comment on above: Performed By: #### C BC #### [facility] [address] [id number] Kaela Judie Basophils/100 WBC (Bld) 0.3 % Normal 0.2-2.0 [facility] Comment on above: Performed By: #### C BC #### [facility] [address] [id number] Kaela Judie EO # 0.1 103/ul Normal 0.0-0.7 [facility] Comment on above: Performed By: #### C BC #### [facility] [address] [place] [address] Kaela Judie Eosinophils/100 WBC (Bld) 0.3 % Critically low 0.9-7.0 [facility] Comment on above: Performed By: #### C BC #### [facility] [address] [place], [place] [id number] Kaela Judie Erythrocyte distribution width (RBC) [Ratio] 12.0 % Normal 11.0-15.0 [facility] Comment on above: Performed By: #### C BC #### [facility] [address] [place], [place] [id number] Kaela Judie Hematocrit (Bld) [Volume fraction] 36.9 % Normal 36.0-48.0 [facility] Comment on above: Performed By: #### C BC #### [facility] [address] [place], [place] [id number] Kaela Judie Hemoglobin (Bld) [Mass/Vol] 12.7 g/dL Normal 12.0-16.0 [facility] Comment on above: Performed By: #### C BC #### [facility] [address] [place], [place] [id number] Kaela Judie IG # 0.19 10e3/ul Critically high 0.00-0.03 [facility] Comment on above: Performed By: #### C BC #### [facility] [address] [place] [address] Kaela Dimas IG % 1.0 % Critically high 0.0-0.5 [facility] Comment on above: Performed By: #### C BC #### [facility] [address] [place] [address] Kaelastephanie Dimas LYMPH # 1.4 103/ul Normal 1.2-3.8 [facility] Comment on above: Performed By: #### C BC #### [facility] [address] [place] [address] Kaela Dimas Lymphocytes/100 WBC (Bld) 7.6 % Critically low 20.5-60.0 [facility] Comment on above: Performed By: #### C BC #### [facility] [address] [place] [address] Kaela Dimas MANUAL DIFF REQ NO Normal [facility] Comment on above: Performed By: #### C BC #### [facility] [address] [place] [address] Kaela Dimas MCH (RBC) [Entitic mass] 30.5 pg Normal 26.7-34.0 [facility] Comment on above: Performed By: #### C BC #### [facility] [address] [place] [address] Kaela Dimas MCHC (RBC) [Mass/Vol] 34.4 g/dL Normal 29.9-35.2 [facility] Comment on above: Performed By: #### C BC #### [facility] [address] [place] [address] Kaela Dimas MCV (RBC) [Entitic vol] 88.5 fL Normal 81.0-99.0 [facility] Comment on above: Performed By: #### C BC #### [facility] [address] [place], [place] [id number] Kaelastephanie Sahuen MONO # 1.0 103/ul Critically high 0.3-0.8 [facility] Comment on above: Performed By: #### C BC #### [facility] [address] [place], [place] [id number] Kaela Dimas Monocytes/100 WBC (Bld) 5.5 % Normal 1.7-12.0 [facility] Comment on above: Performed By: #### C BC #### [facility] [address] [place], [place] [id number] Kaela Dimas NEUT # 15.7 103/ul Critically high 1.4-6.5 [facility] Comment on above: Performed By: #### C BC #### [facility] [address] [place], [place] [id number] Kaela Dimas Neutrophils/100 WBC (Bld) 85.3 % Critically high 43.0-75.0 [facility] Comment on above: Performed By: #### C BC #### [facility] [address] [place], [place] [id number] Kaela Dimas Platelet mean volume (Bld) [Entitic vol] 11.8 fL Normal 9.5-13.5 [facility] Comment on above: Performed By: #### C BC #### [facility] [address] [place], [place] [id number] Kaela Dimas PLT 226 103/ul Normal 150-450 [facility] Comment on above: Performed By: #### C BC #### [facility] [address] [place], [place] [id number] Kaela Sahuen RBC 4.17 106/ul Critically low 4.20-5.40 [facility] Comment on above: Performed By: #### C BC #### [facility] [address] [place], [place] [id number] Kaela Sahuen WBC 18.5 103/ul Critically high 4.0-11.0 [facility] Comment on above: Performed By: #### C BC #### [facility] [address] [place] [id number] Kaela Dimas DRUG SCREEN RAPID (URINE)on 02-05-2021 AMP Negative Normal NEGATIVE [facility] Comment on above: Performed By: #### D RUGRPD #### [facility] [address] [place], [place] [id number] Kaela Dimas BAR Negative Normal NEGATIVE [facility] Comment on above: Performed By: #### D RUGRPD #### [facility] [address] [address] Kaela Judie BUP Negative Normal NEGATIVE [facility] Comment on above: Performed By: #### D RUGRPD #### [facility] [address] [address] Kaela Judie BZO Negative Normal NEGATIVE [facility] Comment on above: Performed By: #### D RUGRPD #### [facility] [address] [address] Kaela Judie JERRY Negative Normal NEGATIVE [facility] Comment on above: Performed By: #### D RUGRPD #### [facility] [address] [place] [address] Kaela Judie CUT-OFFS SEE BELOW Normal [facility] Comment on above: Result Comment: [...] By: #### D RUGRPD #### [facility] [address] [place] [address] Kaela Judie DRUG CUT HEADER DRUG CLASS TEST SYST EM CUT-OFF CONCENTRATIONS ARE FOLLOWS: Normal [facility] Comment on above: Performed By: #### D RUGRPD #### [facility] [address] [place] [address] Kaela Judie mAMP Negative Normal NEGATIVE [facility] Comment on above: Performed By: #### D RUGRPD #### [facility] [address] [address] Kaela Judie MTD Negative Normal NEGATIVE [facility] Comment on above: Performed By: #### D RUGRPD #### [facility] [address] [place] [address] Kaela Judie OPI Negative Normal NEGATIVE [facility] Comment on above: Performed By: #### D RUGRPD #### [facility] [address] [place] [address] Kaela Judie OXY Negative Normal NEGATIVE [facility] Comment on above: Performed By: #### D RUGRPD #### [facility] [address] [place] [address] Kaela Judie PCP Negative Normal NEGATIVE [facility] Comment on above: Performed By: #### D RUGRPD #### [facility] [address] [place] [address] Kaela Judie PPX Negative Normal NEGATIVE [facility] Comment on above: Performed By: #### D RUGRPD #### [facility] [address] [place] [address] Kaela Judie TCA Negative Normal NEGATIVE [facility] Comment on above: Performed By: #### D RUGRPD #### [facility] [address] [place] [address] Kaela Judie THC Negative Normal NEGATIVE [facility] Comment on above: Performed By: #### D RUGRPD #### [facility] [address] [place] [address] Kaela Judie TYPE AND SCREENon 02-05-2021 TYPE AND SCREEN Negative Normal [facility] Comment on above: Performed By: #### P TT #### [facility] [address] [place] [address] Kaela Dimas GROUP B STREP CULTUREon S. agalactiae Ag Ql (Unsp spec) Culture Observations: NEGATIVE FOR GROUP B STREPTOCOCCUS. Normal [facility] Comment on above: Performed By: #### P TT #### [facility] [address] [place] [address] Kaela Dimas US PREG BIOPHY W NON [...] by: MICHELLE LANE Date: 2021-01-30 08:23 Normal [facility] US PREG GROWTHon 01-30-2021 US PREG [...] by: MICHELLE LANE Date: 2021-01-30 08:25 Normal [facility] US PREG BIOPHY W NON STRESSo [...] Date: 2021-01-23 07:22 Normal [facility] US PREG BIOPHY W NON [...] Date: 2021-01-16 07:31 Normal [facility] PROTEIN 24HR URINEon 021 T PROT, 24 HR UR 603.9 mg/24 hr Critically high 42.0-225.0 [facility] Comment on above: Performed By: #### G TT3P #### [facility] [address] [place] [address] Kaela Judie UR PROT 12.2 mg/dL Critically high <=12.0 [facility] Comment on above: Performed By: #### G TT3P #### [facility] [address] [place] [address] Kaela Judie UR TOT VOL 4950 ml/24 HR Normal [facility] Comment on above: Performed By: #### G TT3P #### [facility] [address] [place] [address] Kaela Judie CBC AUTO DIFFon 01-13-2021 BASO # 0.0 103/ul Normal 0.0-0.1 [facility] Comment on above: Performed By: #### G TT3P #### [facility] [address] [id number] Kaela Judie Basophils/100 WBC (Bld) 0.2 % Normal 0.2-2.0 [facility] Comment on above: Performed By: #### G TT3P #### [facility] [address] [place] [address] Kaela Judie EO # 0.1 103/ul Normal 0.0-0.7 [facility] Comment on above: Performed By: #### G TT3P #### [facility] [address] [place], [place] [id number] Kaela Judie Eosinophils/100 WBC (Bld) 0.6 % Critically low 0.9-7.0 [facility] Comment on above: Performed By: #### G TT3P #### [facility] [address] [place] [address] Kaela Judie Erythrocyte distribution width (RBC) [Ratio] 11.7 % Normal 11.0-15.0 [facility] Comment on above: Performed By: #### G TT3P #### [facility] [address] [place] [address] Kaela Judie Hematocrit (Bld) [Volume fraction] 34.5 % Critically low 36.0-48.0 [facility] Comment on above: Performed By: #### G TT3P #### [facility] [address] [place], [place] [id number] Kaela Judie Hemoglobin (Bld) [Mass/Vol] 12.1 g/dL Normal 12.0-16.0 [facility] Comment on above: Performed By: #### G TT3P #### [facility] [address] [place] [address] Kaela Judie IG # 0.20 10e3/ul Critically high 0.00-0.03 [facility] Comment on above: Performed By: #### G TT3P #### [facility] [address] [place] [address] Kaela Judie IG % 1.2 % Critically high 0.0-0.5 [facility] Comment on above: Performed By: #### G TT3P #### [facility] [address] [place] [address] Kaela Judie LYMPH # 1.5 103/ul Normal 1.2-3.8 [facility] Comment on above: Performed By: #### G TT3P #### [facility] [address] [place], [place] [id number] Kaela Dimas Lymphocytes/100 WBC (Bld) 8.6 % Critically low 20.5-60.0 [facility] Comment on above: Performed By: #### G TT3P #### [facility] [address] [place] [address] Kaela Dmias MANUAL DIFF REQ NO Normal [facility] Comment on above: Performed By: #### G TT3P #### [facility] [address] [place] [address] Kaelastephanie Dimas MCH (RBC) [Entitic mass] 30.6 pg Normal 26.7-34.0 [facility] Comment on above: Performed By: #### G TT3P #### [facility] [address] [place] [address] Kaelastephanie Dimas MCHC (RBC) [Mass/Vol] 35.1 g/dL Normal 29.9-35.2 [facility] Comment on above: Performed By: #### G TT3P #### [facility] Laboratory [address] [place] [address] Kaelastephanie Dimas MCV (RBC) [Entitic vol] 87.3 fL Normal 81.0-99.0 [facility] Comment on above: Performed By: #### G TT3P #### [facility] Laboratory [address] [place] [address] Kaela Judie MONO # 1.2 103/ul Critically high 0.3-0.8 [facility] Comment on above: Performed By: #### G TT3P #### [facility] Laboratory [address] [place], [place] [id number] Kaelastephanie Dimas Monocytes/100 WBC (Bld) 6.6 % Normal 1.7-12.0 [facility] Comment on above: Performed By: #### G TT3P #### [facility] Laboratory [address] [place] [address] Kaela Dimas NEUT # 14.4 103/ul Critically high 1.4-6.5 [facility] Comment on above: Performed By: #### G TT3P #### [facility] Laboratory [address] [place] [address] Kaela Dimas Neutrophils/100 WBC (Bld) 82.8 % Critically high 43.0-75.0 [facility] Comment on above: Performed By: #### G TT3P #### [facility] Laboratory [address] [place] [address] Kaela Dimas Platelet mean volume (Bld) [Entitic vol] 12.1 fL Normal 9.5-13.5 [facility] Comment on above: Performed By: #### G TT3P #### [facility] Laboratory [address] [place] [address] Kaela Dimas PLT 216 103/ul Normal 150-450 [facility] Comment on above: Performed By: #### G TT3P #### [facility] Laboratory [address] [place] [address] Kaela Dimas RBC 3.95 106/ul Critically low 4.20-5.40 [facility] Comment on above: Performed By: #### G TT3P #### [facility] Laboratory [address] [place] [address] Kaela Dimas WBC 17.4 103/ul Critically high 4.0-11.0 [facility] Comment on above: Performed By: #### G TT3P #### [facility] Laboratory [address] [place] [address] Kaela Dimas CULTURE URINEon 01-13-2021 CULTURE URINE Culture Observations : LIGHT GROWTH OF MIXED GENITAL TINO. NO POTENTIAL PATHOGENS SEEN. Normal [facility] Comment on above: Performed By: #### P TT #### [facility] Laboratory [address] [place] [address] Kaela Dimas LDHon 01-13-2021 LDH 194 U/L Normal 122-222 [facility] Comment on above: Performed By: #### U ELIZABETH, LDH #### [facility] Laboratory [address] [place], [place] [id number] Kaela Dimas PROF 14(COMP METB)on 021 Albumin [Mass/Vol] 2.7 g/dL Critically low 3.5-5.0 [facility] Comment on above: Performed By: #### G TT3P #### [facility] Laboratory [address] [place], [place] [id number] Kaela Judie Albumin/Globulin [Mass ratio] 0.9 {ratio} Normal [facility] Comment on above: Performed By: #### G TT3P #### [facility] Laboratory [address] [place] [address] Kaela Judie ALP [Catalytic activity/Vol] 134 U/L Critically high 38-126 [facility] Comment on above: Performed By: #### G TT3P #### [facility] Laboratory [address] [place] [address] Kaela Judie ALT [Catalytic activity/Vol] 21 U/L Normal 9-52 [facility] Comment on above: Performed By: #### G TT3P #### [facility] Laboratory [address] [place] [address] Kaela Judie Anion gap [Moles/Vol] 11.6 mmol/L Normal [facility] Comment on above: Performed By: #### G TT3P #### [facility] Laboratory [address] [place] [address] Kaela Judie AST [Catalytic activity/Vol] 17 U/L Normal 14-36 [facility] Comment on above: Performed By: #### G TT3P #### [facility] Laboratory [address] [place] [address] Kaela Judie Bilirubin [Mass/Vol] 0.2 mg/dL Normal 0.2-1.3 [facility] Comment on above: Performed By: #### G TT3P #### [facility] Laboratory [address] [place], [place] [id number] Kaela Judie Calcium [Mass/Vol] 9.1 mg/dL Normal 8.4-10.2 [facility] Comment on above: Performed By: #### G TT3P #### [facility] Laboratory [address] [place] [address] Kaela Judie Chloride [Moles/Vol] 106 mmol/L Normal 98-107 [facility] Comment on above: Performed By: #### G TT3P #### [facility] Laboratory [address] [place] [address] Kaela Judie CO2 [Moles/Vol] 25.8 mmol/L Normal 22.0-30.0 [facility] Comment on above: Performed By: #### G TT3P #### [facility] Laboratory [address] [place] [address] Kaela Judie Creatinine [Mass/Vol] 0.53 mg/dL Normal 0.52-1.04 [facility] Comment on above: Performed By: #### G TT3P #### [facility] Laboratory [address] [place] [address] Kaela Judie EGFR-AF LAO >60 Normal >=60 [facility] Comment on above: Performed By: #### G TT3P #### [facility] Laboratory [address] [place] [address] Kaela Judie EGFR-NON AF LAO >60 Normal >=60 [facility] Comment on above: Performed By: #### G TT3P #### [facility] Laboratory [address] [place] [address] Kaela Judie Globulin (S) [Mass/Vol] 3.0 g/dL Normal [facility] Comment on above: Performed By: #### G TT3P #### [facility] Laboratory [address] [place] [address] Keala Judie Glucose [Mass/Vol] 85 mg/dL Normal 74-106 [facility] Comment on above: Performed By: #### G TT3P #### [facility] Laboratory [address] [place] [address] Kaela Judie Potassium [Moles/Vol] 3.4 mmol/L Normal 3.4-5.0 [facility] Comment on above: Performed By: #### G TT3P #### [facility] Laboratory [address] [place] [address] Kaela Judie Protein [Mass/Vol] 5.7 g/dL Critically low 6.1-8.2 [facility] Comment on above: Performed By: #### G TT3P #### [facility] Laboratory [address] [place] [address] Kaela Judie Sodium [Moles/Vol] 140 mmol/L Normal 137-145 [facility] Comment on above: Performed By: #### G TT3P #### [facility] Laboratory [address] [place] [address] Kaela Judie Urea nitrogen [Mass/Vol] 10.0 mg/dL Normal 7.0-17.0 [facility] Comment on above: Performed By: #### G TT3P #### [facility] Laboratory [address] [place] [address] Kaela Judie Urea nitrogen/Creatinine [Mass ratio] 18.9 mg/mg Normal [facility] Comment on above: Performed By: #### G TT3P #### [facility] Laboratory [address] [place] [address] Kaela Judie PTTon 01-13-2021 aPTT Coag (Bld) [Time] 23.6 s Normal 22.3-36.[address] [facility] Comment on above: Performed By: #### P TT #### [facility] Laboratory [address] [place] [address] Kaela Judie URIC ACID SERUMon 01-13-2021 Urate [Mass/Vol] 3.7 mg/dL Normal 2.5-6.2 [facility] Comment on above: Performed By: #### U ELIZABETH, LDH #### [facility] Laboratory [address] [place] [address] Kaela Judie UA (CLEAN/CATCH) PARENT TRAINER/MICRO I F IND.on 01-12-2021 Bilirubin Ql (U) Negative Normal NEGATIVE [facility] Comment on above: Performed By: #### U MICRO, UACSIND #### [facility] Laboratory [address] [place] [address] Kaela Judie Clarity (U) CLEAR Normal CLEAR [facility] Comment on above: Performed By: #### U MICRO, UACSIND #### [facility] Laboratory [address] [place] [address] Kaela Judie Color (U) LT. YELLOW Normal YELLOW [facility] Comment on above: Performed By: #### U MICRO, UACSIND #### [facility] Laboratory [address] [address] Kaela Judie Glucose Ql (U) Negative Normal NEGATIVE [facility] Comment on above: Performed By: #### U MICRO, UACSIND #### [facility] Laboratory [address] [place] [address] Kaela Judie Hemoglobin Ql (U) Negative Normal NEGATIVE [facility] Comment on above: Performed By: #### U MICRO, UACSIND #### [facility] Laboratory [address] [place] [address] Kaela Judie Ketones Ql (U) Negative Normal NEGATIVE [facility] Comment on above: Performed By: #### U MICRO, UACSIND #### [facility] Laboratory [address] [place] [address] Kaela Judie LEUKOCYTES TRACE Abnormal NEGATIVE [facility] Comment on above: Performed By: #### U MICRO, UACSIND #### [facility] Laboratory [address] [place] [address] Kaela Judie Nitrite Ql (U) Negative Normal NEGATIVE [facility] Comment on above: Performed By: #### U MICRO, UACSIND #### [facility] Laboratory [address] [place] [address] Kaela Judie pH (U) 6.0 [pH] Normal 5-9 [facility] Comment on above: Performed By: #### U MICRO, UACSIND #### [facility] Laboratory [address] [place] [address] Kaela Judie SPEC GRAVITY 1.025 Normal 1.005-<=1. 025 [facility] Comment on above: Performed By: #### U MICRO, UACSIND #### [facility] Laboratory [address] [place] [address] Kaela Judie UA PROTEIN Negative Normal NEGATIVE/ TRACE [facility] Comment on above: Performed By: #### U MICRO, UACSIND #### [facility] [address] [place] [address] Kaela Judie UR MICRO IND INDICATED Normal [facility] Comment on above: Performed By: #### U MICRO, UACSIND #### [facility] Laboratory [address] [place] [address] Kaela Judie Urobilinogen Qn (U) 0.2 {Sylvester'U}/dL Normal 0.2 - 1. 0 [facility] Comment on above: Performed By: #### U MICRO, UACSIND #### [facility] Laboratory [address] [place] [address] Kaela Judie URINE MICROSCOPIC ONLYon BACTERIA TRACE Abnormal NONE SEEN [facility] Comment on above: Performed By: #### U MICRO, UACSIND #### [facility] Laboratory [address] [place] [address] Kaela Judie Bacteria identified Cx Nom (U) INDICATED Normal [facility] Comment on above: Performed By: #### U MICRO, UACSIND #### [facility] Laboratory [address] [place] [address] Kaela Judie CAST NONE SEEN Normal NONE SEEN [facility] Comment on above: Performed By: #### U MICRO, UACSIND #### [facility] Laboratory [address] [place] [address] Kaela Judie Crystals LM Nom (Urine sed) NONE SEEN Normal NONE SEEN [facility] Comment on above: Performed By: #### U MICRO, UACSIND #### [facility] Laboratory [address] [place] [address] Kaela Judie Epithelial cells LM Ql (Urine sed) FEW Abnormal NONE SEEN /RARE [facility] Comment on above: Performed By: #### U MICRO, UACSIND #### [facility] Laboratory [address] [place] [address] Kaela Judie MUCOUS SMALL Abnormal NONE SEEN [facility] Comment on above: Performed By: #### U MICRO, UACSIND #### [facility] [address] [place] [address] Kaela Judie RBC 0-2 Normal 0-2 [facility] Comment on above: Performed By: #### U MICRO, UACSIND #### [facility] Laboratory [address] [place] [address] Kaela Judie WBC 2-5 Abnormal NONE SEEN [facility] Comment on above: Performed By: #### U MICRO, UACSIND #### [facility] Laboratory [address] [place] [address] Kaela Dimas US PREG BIOPHY W NON [...] Date: 2021-01-09 07:18 Normal [facility] US PREG GROWTHon 12-31-2020 US [...] cm; 32 weeks 2 days; % EFW: 4.446825, 39% FL/AC: 0.911951 FL/BPD: 0.024144 HC/AC: 1.236385 GESTATIONAL AGE: Age by EDC: 32 weeks 1 day SUSANNA by EDC: 02/24/2021 Age by US: 32 weeks 0 days SUSANNA by US: 02/25/2021 IMPRESSION: Normal interval growth Electronically authenticated by: IRINEO COMBS Date: 2020-12-31 09:38 Normal [facility] GTT 3 HR PREGon 12-12-2020 Glucose [Mass/Vol] 86 mg/dL Normal 74-106 [facility] Comment on above: Performed By: #### G TT3P #### [facility] Laboratory [address] [place] [address] Kaela Judie Glucose [Mass/Vol] 179 mg/dL Normal [facility] Comment on above: Performed By: #### G TT3P #### [facility] Laboratory [address] [place] [address] Kaela Judie Glucose [Mass/Vol] 131 mg/dL Normal [facility] Comment on above: Performed By: #### G TT3P #### [facility] Laboratory [address] [place] [address] Kaela Judie Glucose [Mass/Vol] 145 mg/dL Normal [facility] Comment on above: Performed By: #### G TT3P #### [facility] Laboratory [address] [place] [address] Kaela Judie GLUCOSE - 1HRon 12-05-2020 Glucose [Mass/Vol] 151 mg/dL Critically high 74-106 [facility] Comment on above: Result Comment: sherri ent was approximately 5 minutes late for draw Performed By: #### G LU1HR #### [facility] Laboratory [address] [place] [address] Kaela Judie HEMOGRAM AND PLATELon 2020 Hematocrit (Bld) [Volume fraction] 38.4 % Normal 36.0-48.0 [facility] Comment on above: Performed By: #### G TT3P #### [facility] Laboratory [address] [place] [address] Kaela Judie Hemoglobin (Bld) [Mass/Vol] 13.2 g/dL Normal 12.0-16.0 [facility] Comment on above: Performed By: #### G TT3P #### [facility] Laboratory [address] [place] [address] Kaela Judie MCH (RBC) [Entitic mass] 30.8 pg Normal 26.7-34.0 [facility] Comment on above: Performed By: #### G TT3P #### [facility] Laboratory [address] [address] Kaela Dimas MCHC (RBC) [Mass/Vol] 34.4 g/dL Normal 29.9-35.2 [facility] Comment on above: Performed By: #### G TT3P #### [facility] Laboratory [address] [place], [place] [id number] Kaela Dimas MCV (RBC) [Entitic vol] 89.5 fL Normal 81.0-99.0 [facility] Comment on above: Performed By: #### G TT3P #### [facility] Laboratory [address] [place] [address] Kaela Dimas PLT 238 103/ul Normal 150-450 [facility] Comment on above: Performed By: #### G TT3P #### [facility] [address] [place] [address] Kaela Dimas RBC 4.29 106/ul Normal 4.20-5.40 [facility] Comment on above: Performed By: #### G TT3P #### [facility] Laboratory [address] [place] [address] Kaela Dimas WBC 17.0 103/ul Critically high 4.0-11.0 [facility] Comment on above: Performed By: #### G TT3P #### [facility] Laboratory [address] [place], [place] [id number] Kaela Dimas US PREG GROWTHon 12-03-2020 PREG GROWTH EXAMINATION: US [...] cm; 28 weeks 0 days; % EFW: 2.322147, 2 lbs. 10 oz., 40% FL/AC: 0.590483 FL/BPD: 0.157356 HC/AC: 1.327826 GESTATIONAL AGE: Age by EDC: 28 weeks 1 day SUSANNA by EDC: 02/24/2021 Age by US: 20 weeks 2 days SUSANNA by US: 02/23/2021 IMPRESSION: Normal interval growth Electronically authenticated by: IRINEO COMBS Date: 2020-12-03 10:04 Normal [facility] Vital Signs Date Time Vital Sign Value Performing Clinician Facility 08-29-2024 14:37-0500 Body mass index (BMI) [Ratio] 41.42 kg/m2 Scotty Jacquie DO Work Phone: [facility] 08-29-2024 14:37-0500 Body weight 106.05 kg Scotty Jacquie DO Work Phone: [facility] 08-29-2024 14:37-0500 Diastolic blood pressure 78 mm[Hg] Scotty Jacquie DO Work Phone: [facility] 08-29-2024 14:37-0500 Systolic blood pressure 128 mm[Hg] Scotty Jacquie DO Work Phone: [facility] 08-22-2024 15:09-0500 Body mass index (BMI) [Ratio] 41.45 kg/m2 Scotty Jacquie DO Work Phone: [facility] 08-22-2024 15:09-0500 Body weight 106.14 kg Scotty Jacquie DO Work Phone: [facility] 08-22-2024 15:09-0500 Diastolic blood pressure 80 mm[Hg] Scotty Jacquie DO Work Phone: [facility] 08-22-2024 15:09-0500 Systolic blood pressure 132 mm[Hg] Scotty Jacquie DO Work Phone: [facility] 08-14-2024 16:26-0500 Body mass index (BMI) [Ratio] 41.65 kg/m2 Scotty Jacquie DO Work Phone: [facility] 08-14-2024 16:26-0500 Body weight 106.65 kg Scotty Jacquie DO Work Phone: [facility] 08-14-2024 16:26-0500 Diastolic blood pressure 80 mm[Hg] Scotty Jacquie DO Work Phone: [facility] 08-14-2024 16:26-0500 Systolic blood pressure 130 mm[Hg] Scotty Jacquie DO Work Phone: [facility] 07-31-2024 15:22-0500 Body mass index (BMI) [Ratio] 41.81 kg/m2 Madisyn KERNS Work Phone: [facility] 07-31-2024 15:22-0500 Body weight 107.05 kg Madisyn KERNS Work Phone: [facility] 07-31-2024 15:22-0500 Diastolic blood pressure 72 mm[Hg] Madisyn KERNS Work Phone: [facility] 07-31-2024 15:22-0500 Systolic blood pressure 122 mm[Hg] Madisyn KERNS Work Phone: [facility] 07-17-2024 16:19-0500 Body mass index (BMI) [Ratio] 41.81 kg/m2 Scotty Jacquie DO Work Phone: [facility] 07-17-2024 16:19-0500 Body weight 107.05 kg Scotty Jacquie DO Work Phone: [facility] 07-17-2024 16:19-0500 Diastolic blood pressure 72 mm[Hg] Scotty Jacquie DO Work Phone: [facility] 07-17-2024 16:19-0500 Systolic blood pressure 122 mm[Hg] Scotty Jacquie DO Work Phone: [facility] 07-14-2024 11:13-0500 Body height 160 cm Aniceto Fox MD Work Phone: [facility] 07-14-2024 11:13-0500 Body mass index (BMI) [Ratio] 40.74 kg/m2 Aniceto Fox MD Work Phone: [facility] 07-14-2024 11:13-0500 Body weight 104.33 kg Aniceto Fox MD Work Phone: [facility] 07-14-2024 11:13-0500 Diastolic blood pressure 84 mm[Hg] Aniceto Fox MD Work Phone: [facility] 07-14-2024 11:13-0500 Heart rate 104 /min Aniceto Fox MD Work Phone: [facility] 07-14-2024 11:13-0500 Systolic blood pressure 144 mm[Hg] Aniceto Fox MD Work Phone: [facility] 06-15-2024 15:34-0500 Body mass index (BMI) [Ratio] 40.6 kg/m2 Madisyn KERNS Work Phone: [facility] 06-15-2024 15:34-0500 Body weight 103.96 kg Madisyn KERNS Work Phone: [facility] 06-15-2024 15:34-0500 Diastolic blood pressure 76 mm[Hg] Madisyn Gaona PA Work Phone: [facility] 06-15-2024 15:34-0500 Systolic blood pressure 122 mm[Hg] Madisyn Gaona PA Work Phone: [facility] 05-18-2024 12:07-0400 Body mass index (BMI) [Ratio] 39.5 kg/m2 Scotty Jacquie DO Work Phone: [facility] 05-18-2024 12:07-0400 Body weight 101.15 kg Scotty Jacquie DO Work Phone: [facility] 05-18-2024 12:07-0400 Diastolic blood pressure 78 mm[Hg] Scotty Jacquie DO Work Phone: [facility] 05-18-2024 12:07-0400 Systolic blood pressure 124 mm[Hg] Scotty Jacquie DO Work Phone: [facility] 04-20-2024 08:46-0400 Body mass index (BMI) [Ratio] 39.41 kg/m2 Madisyn Gaona PA Work Phone: [facility] 04-20-2024 08:46-0400 Body weight 100.92 kg Madisyn Gaona PA Work Phone: [facility] 04-20-2024 08:46-0400 Diastolic blood pressure 82 mm[Hg] Madisyn Gaona PA Work Phone: [facility] 04-20-2024 08:46-0400 Systolic blood pressure 122 mm[Hg] Madisyn Gaona PA Work Phone: [facility] 03-22-2024 11:34-0400 Body mass index (BMI) [Ratio] 39.5 kg/m2 Scotty Jacquie DO Work Phone: [facility] 03-22-2024 11:34-0400 Body weight 101.15 kg Scotty Jacquie DO Work Phone: [facility] 03-22-2024 11:34-0400 Diastolic blood pressure 74 mm[Hg] Scotty Jacquie DO Work Phone: [facility] 03-22-2024 11:34-0400 Systolic blood pressure 122 mm[Hg] Scotty Jacquie DO Work Phone: [facility] 01-31-2024 18:14-0400 Diastolic blood pressure 74 mm[Hg] MD Jacques Mccarthy Work Phone: [facility] 01-31-2024 18:14-0400 Heart rate 100 /min MD Jacques Mccarthy Work Phone: [facility] 01-31-2024 18:14-0400 Respiratory rate 18 /min MD Jacques Mccarthy Work Phone: [facility] 01-31-2024 18:14-0400 SaO2% (BldA) [Mass fraction] 100 % MD Jacques Mccarthy Work Phone: [facility] 01-31-2024 18:14-0400 Systolic blood pressure 156 mm[Hg] MD Jacques Mccarthy Work Phone: [facility] 01-31-2024 14:040 Body height 160.02 cm MD Jacques Mccarthy Work Phone: [facility] 01-31-2024 14:04-040 Body temperature 97.4 [degF] MD Jacques Mccarthy Work Phone: [facility] 01-31-2024 14:040 Body weight 98.5 kg MD Jacques Mccarthy Work Phone: [facility] Encounters Encounter Date Encounter Type Care Provider Facility Start: 08-30-2024 End: 08-30-2024 Clinisync Result Encounter Scotty Jacquie DO Work Phone: [facility] Unsolicited Start: 08-30-2024 End: 08-30-2024 Clinisync Result Encounter Scotty Jacquie DO Work Phone: [facility] Unsolicited Start: 08-29-2024 End: 08-29-2024 flow sheet Scotty Jacquie DO Work Phone: [facility] Comment on above: 34 weeks gestation o f ; Third trimester Start: 08-29-2024 End: 08-29-2024 ambulatory SCOTTY JACQUIE Not Available Start: 08-29-2024 End: 08-29-2024 Bamboo flowsheet Scotty Jacquie DO Work Phone: [facility] Start: 08-29-2024 End: 08-29-2024 Bamboo flowsheet Scotty Jacquie DO Work Phone: [facility] Start: 08-22-2024 End: 08-22-2024 ambulatory SCOTTY JACQUIE [...] 08-16-2024 End: 08-16-2024 Documentation procedure Judie Stearns [facility] at [facility] Start: 08-15-2024 End: 08-15-2024 Office outpatient visit 25 minutes Nubia Lundberg MD Work Phone: [facility]- Medicine at [facility] Comment on above: 32 weeks gestation o f (Primary Dx); Gestational diabetes mellitus (GDM) in third trimester, gestational diabetes method of control unspecified; Chronic hypertension affecting ; BMI 40.0-44.9, adult ([facility]); arrhythmia affecting , antepartum; Polyhydramnios affecting ; Separation of chorion and amnion membranes, antepartum Start: 08-15-2024 End: 08-15-2024 Orders Only Judie Stearns [facility] at [facility] Comment on above: Abnormal ultrasonic finding on [...] 07-31-2024 flow sheet Madisyn KERNS Work Phone: [facility] Comment on above: Third trimester preg red; 30 weeks gestation of Start: 07-31-2024 End: 07-31-2024 ambulatory MADISYN GAONA Not Available Start: 07-31-2024 End: 07-31-2024 Bamboo flowsheet Madisyn KERNS Work Phone: [facility] Start: 07-31-2024 End: 07-31-2024 Bamboo flowsheet Madisyn KERNS Work Phone: [facility] Start: 07-17-2024 End: 07-17-2024 ambulatory SCOTTY JACQUIE Not Available Start: 07-17-2024 End: 07-17-2024 flow sheet Scotty Jacquie DO Work Phone: [facility] Comment on above: Third [...] Aniceto Fox MD Work Phone: [facility] Comment on above: Gestational diabetes mellitus (GDM), antepartum, gestational diabetes method of control unspecified (Primary Dx); Chronic hypertension affecting Start: 07-14-2024 End: 07-14-2024 ambulatory [facility] Start: 07-13-2024 End: 07-13-2024 Clinisync Result Encounter Madisyn KERNS Work Phone: [facility] Unsolicited Start: 07-13-2024 End: 07-13-2024 Clinisync Result Encounter Madisyn KERNS Work Phone: [facility] Unsolicited Start: 06-21-2024 End: 06-21-2024 Chart abstracting Aniceto Fox MD Work Phone: Maternal- Medicine [facility] Start: 06-15-2024 End: 06-15-2024 flow sheet [...] Start: 05-18-2024 End: 05-18-2024 Bamboo flowsheet Scotty Jacquierbandin SAUCEDO Work Phone: [facility] Start: 05-18-2024 End: 05-18-2024 Bamboo flowsheet Scotty Jacquie DO Work Phone: [facility] Start: 05-18-2024 End: 05-18-2024 ambulatory SCOTTY JACQUIE Not Available Start: 05-18-2024 End: 05-18-2024 flow sheet Scotty Jacquie DO Work Phone: [facility] Comment on above: 20 weeks gestation o f ; Second trimester Start: 04-20-2024 End: 04-20-2024 Bamboo flowsheet Madisyn KERNS Work Phone: [facility] Start: 04-20-2024 End: 04-20-2024 Bamboo flowsheet Madisyn KERNS Work Phone: [facility] Start: 04-20-2024 End: 04-20-2024 Office outpatient visit 15 minutes Madisyn KERNS Work Phone: [facility] Comment on above: Screening, , for anatomic survey; Well woman exam with routine gynecological exam; Screen for STD (sexually transmitted disease); Vaginal discharge; Second trimester Start: 04-20-2024 End: 04-20-2024 Patient encounter procedure Madisyn KERNS Work Phone: [facility] Start: 04-20-2024 End: 04-20-2024 ambulatory MADISYN GAONA Not Available Start: 03-22-2024 End: 03-22-2024 Bamboo flowsheet Scotty Jacquie DO Work Phone: [facility] Start: 03-22-2024 End: 03-22-2024 Bamboo flowsheet Scotty Jacquie DO Work Phone: [facility] Start: 03-22-2024 End: 03-22-2024 flow sheet Scotty Jacquie DO Work Phone: [facility] Comment on above: Second trimester [...] patient visit MD Jacques Mccarthy Work Phone: [facility] Work Phone: Start: 10-08-2021 End: [...] Facility:[facility] Start: 01-08-2021 End: 01-08-[address] JCAQUES MCCARTHY Facility:[facility] Start: 12-31-2020 End: 01-01-[address] IRINEO COMBS Facility:[facility] Start: 12-19-2020 End: 12-20-[address] JACQUES MCCARTHY Facility:[facility] Start: 12-12-2020 End: 12-13-[address] SCOTTY DHILLON Facility:[facility] Start: 12-05-2020 End: 12-06-[address] SCOTTY DHILLON Facility:[facility] Start: 12-03-2020 End: 12-04-[address] SCOTTY DHILLON Facility:[facility] Start: 11-01-[address] SCOTTY DHILLON Facility :[facility]1 Procedures Date Procedure Procedure Detail Performing Clinician Start: 08-30-2024 OB BPP W NON-STRESS Scotty Jacquie DO Work Phone: Start: 08-30-2024 [facility] UA (CLEAN/CATCH) PARENT TRAINER/MICRO IF IND. Scotty Jacquie DO Work Phone: Start: 08-29-2024 Urnls dip stick/tabl et rgnt non-auto w/o micrscp Scotty Jacquei DO Work Phone: Start: 08-22-2024 Urnls dip stick/tabl et rgnt non-auto w/o micrscp Scotty Jacquie DO Work Phone: Start: 08-14-2024 Urnls dip stick/tabl et rgnt non-auto w/o micrscp Scotty Jacquie DO Work Phone: Start: 08-07-2024 ALL CBC WITH AUTO DIFF Scotty Jacquie DO Work Phone: Start: 08-05-2024 ALL CBC WITH AUTO DIFF Scotty Jacquie DO Work Phone: Start: 08-04-2024 [facility] UA (CLEAN/CATCH) PARENT TRAINER/MICRO IF IND. Scotty Jacquie DO Work Phone: [...] Author Start: 08-15-2025 Tobacco Screening Tobacco Screening [facility] Start: 07-14-2025 Adult BMI Screening Adult BMI Screen ing [facility] Start: 06-21-2025 Adult BMI Screening Adult BMI Screen ing [facility] Start: 09-05-2024 End: 09-05-2024 Patient encounter procedure 09/05/2024 10:40 AM EST Routine [facility] [address] [place] [address] Scotty Dhillon, DO [address] [place] [address] [facility] Start: 08-30-2024 End: 08-30-2024 Patient encounter procedure 08/30/2024 10:30 AM EST Office Visit [facility] [address], [place] [phone] Eliud Wilson MD [address] [place] [address] [facility] Start: 08-29-2024 End: 08-29-2024 Patient encounter procedure [facility] Comment on above: Arrived Start: 08-22-2024 End: 08-22-2024 Patient encounter procedure 08/22/2024 2:30 PM EST Routine [facility] [address] [place] [address] Scotty Dhillon, DO [address] [place] [address] [facility] Start: 08-14-2024 End: 08-14-2024 Patient encounter procedure 08/14/2024 3:30 PM EST Routine [facility] [address] [place] [address] Scotty Dhillon, DO [address] [place] [address] [facility] Start: 07-31-2024 End: 07-31-2024 Patient encounter procedure [facility] Comment on above: Arrived Start: 07-17-2024 End: 07-17-2024 Patient encounter procedure 07/17/2024 3:20 PM EST Routine [facility] [address] [place] [address] Scotty Dhillon, DO [address] [place] [address] [facility] Start: 07-17-2024 End: 07-17-2024 Professional / ancillary services management 07/17/2024 3:00 PM EST Ancillary Procedure [facility] [address] [place] [phone] [facility] Start: 07-17-2024 End: 07-17-2025 US biophysical profile w non stress test US biophysical profile w non stress test Imaging Routine Third trimester Gestational diabetes mellitus (GDM) in third trimester, gestational diabetes method of control unspecified Hypertension, unspecified type ([facility]) Expected: 07/17/2024 (Approximate), Expires: 07/17/2025 [facility] Comment on above: Expected: 07/17/2024 (Approximate), Expires: 07/17/2025 Start: 07-17-2024 End: 07-17-2025 US for US OB SCAN FOR GROWTH Imaging Routine Third trimester Gestational diabetes mellitus (GDM) in third trimester, gestational diabetes method of control unspecified Hypertension, unspecified type ([facility]) Expected: 07/17/2024 (Approximate), Expires: 07/17/2025 [facility] Work Phone: Comment on above: Expected: 07/17/2024 (Approximate), Expires: 07/17/2025 Start: 07-14-2024 End: 07-14-2024 Patient encounter procedure [facility] Start: 06-15-2024 End: 06-15-2024 Patient encounter procedure 06/15/2024 3:30 PM EST Routine [facility] [address] [place] [id number] Madisyn Gaona PA [address] [place], [place] [id number] [facility] Start: 06-15-2024 End: 06-15-2025 CBC panel - Blood by Automated count CBC Lab Routine Diabetes mellitus screening Expected: 06/15/2024 (Approximate), Expires: 06/15/2025 [facility] Work Phone: Comment on above: Expected: 06/15/2024 (Approximate), Expires: 06/15/2025 Start: 06-15-2024 End: 06-15-2025 Measurement of glucose 1 hour after glucose challenge for glucose tolerance test Glucose tolerance, 1 hour Lab Routine Diabetes mellitus screening Expected: 06/15/2024 (Approximate), Expires: 06/15/2025 [facility] Comment on above: Expected: 06/15/2024 (Approximate), Expires: 06/15/2025 Start: 05-18-2024 End: 05-18-2024 Patient encounter procedure 05/18/2024 11:40 AM EDT Office Visit [facility] [address] [place] [address] Scotty Dhillon, DO [address] [place] [address] [facility] Start: 05-18-2024 End: 05-18-2024 Professional / ancillary services management 05/18/2024 10:30 AM EDT Ancillary Procedure [facility] [address] [place] [place] [address] [facility] Start: 04-20-2024 End: 04-20-2025 [...] Start: 04-02-2024 Influenza vaccination Influenza Vacc ine [facility] Start: 03-22-2024 End: 03-22-2024 Patient encounter procedure 03/22/2024 11:20 AM EDT Routine [facility] [address] [place] [address] Scotty Dhillon, DO [address] [place] [address] Arrived [facility] Comment on above: Arrived Start: 2018 Screening for malign ant neoplasm of cervix Pap Smear [facility] Start: 2016 DTaP,Tdap and Td Vaccines (1 - Tdap) DTaP,Tdap and Td Vaccines (1 - Tdap) [facility] Start: 2015 Adult BMI Follow Up Plan Adult BMI Follow Up Plan [facility] Start: 2015 Adult BMI Screening Adult BMI Screen ing [facility] Start: 2009 Depression Screening Depression Scre ening [facility] Start: 2009 Tobacco Screening Tobacco Screening [facility] CBC W Auto Different ial panel - Blood CBC and differential Lab Routine Abnormal CBC Ordered: 03/22/2024 [facility] Work Phone: Comment on above: Ordered: 03/22/2024 Patient Education - Th e Second Month High Blood Pressure ED [facility] Work Phone: Patient referral [facility] Work Phone: Payers Date Payer Category Payer Medicaid [id number] 2024 Medicaid [id number] 2024 Self-pay 2023 Private Health Insurance [id number] 2023 Private Health Insurance [id number] 2022 Medicaid HMO [employer] [id number] 1997 Unknown [id number] 2.16.840.1.038552.3.579.2. 593 1997 Unknown [id number] 2.16.840.1.715301.3.579.2. 593 1997 Unknown [id number] 2.16.840.1.712936.3.579.2. 593 1997 Unknown [id number] 2.16.840.1.006038.3.579.2. 593 1997 Unknown [id number] 2.16.840.1.516142.3.579.2. 593 1997 Unknown [id number] 2.16.840.1.208916.3.579.2. 593 1997 Unknown [id number] 2.16.840.1.313895.3.579.2. 593 1997 Unknown [id number] 2.16.840.1.131302.3.579.2. 593 1997 Unknown [id number] 2.16.840.1.655395.3.579.2. 593 1997 Unknown [id number] 2.16.840.1.940851.3.579.2. 593 1997 Unknown [id number] 2.16.840.1.493915.3.579.2. 593 1997 Unknown [id number] 2.16.840.1.116331.3.579.2. 593 1997 Unknown [id number] 2.16.840.1.459859.3.579.2. 593 1997 Unknown [id number] 2.16.840.1.523132.3.579.2. 593 1997 Unknown [id number] 2.16.840.1.121187.3.579.2. 593 1997 Unknown [id number] 2.16.840.1.680734.3.579.2. 593 1997 Unknown [id number] 2.16.840.1.144795.3.579.2. 593 1997 Unknown [id number] 2.16.840.1.412524.3.579.2. 593 1997 Unknown [id number] 2.16.840.1.393774.3.579.2. 1286 1997 Unknown [id number] 2.16.840.1.328877.3.579.2. 1286 1997 Unknown [id number] 2.16.840.1.797630.3.579.2. 1285 1997 Unknown [id number] 2.16.840.1.034873.3.579.2. 9 1997 Unknown [id number] 2.16840.1.685686.3.579.2. 1258 1997 Unknown [id number] 2.16.840.1.511139.3.579.2. 1258 1997 Unknown [id number] 2.16.840.1.306526.3.579.2. 1258 1997 Unknown [id number] 2.16.840.1.373698.3.579.2. 1258 1997 Unknown [id number] 2.16.840.1.581205.3.579.2. 1258 1997 Unknown [id number] 2.16.840.1.869906.3.579.2. 9 1997 Unknown [id number] 2.16.840.1.096507.3.579.2. 1258 1997 Unknown [id number] 2.16.840.1.820784.3.579.2. 1258 1997 Unknown [id number] 2.16.840.1.104599.3.579.2. 1258 1997 Unknown [id number] 2.16.840.1.628049.3.579.2. 1259 1997 Unknown [id number] 2.16.840.1.492943.3.579.2. 1259 1997 Unknown [id number] 2.16.840.1.895306.3.579.2. 1259 1959 Unknown [id number] 1959 Unknown [id number] 1959 Unknown [id number] Unknown [id number] 2.16.840.1.556388.3.579.2. 531 Social History Date Type Detail Facility Start: 01-13-2024 [facility] Start: 01-31-2024 Tobacco smoking stat [facility] Never smoked tobacco (finding) [facility] Start: 1997 Sex Assigned At Female [facility] Tobacco smoking stat [facility] Tobacco smoking consumption unknown [facility] Start: 1997 Sex assigned at Not on file [facility] Start: 08-23-2020 End: 06-21-2024 Gender identity Not on file [facility] Start: 10-07-2020 End: 07-14-2024 Tobacco smoking status LAIS Ex-smoker [facility] History of tobacco use Current smoker [facility] Start: 10-07-2020 End: 07-14-2024 Tobacco use and exposure Smokeless tobacco non-user [facility] Start: 06-21-2024 End: 08-15-2024 Alcoholic beverage intake Ex-drinker (finding) [facility] Start: 08-23-2020 End: 06-21-2024 History of Social function [facility] Childcare Unknown [facility] Start: 10-07-2020 End: 07-14-2024 Tobacco Comment quit 3 years ago [facility] Start: 08-23-2020 Sex Female (finding) [facility] History of tobacco use Cigarette Smoker P [facility] Medical Equipment Procedure Code Equipment Code Equipment Original Text Equipment Identifier Dates 1 strip by In Vi tro route Daily Use in the morning prior to breakfast, 1 hour after each meal for a total of 4times daily. [id number] Start: 07-17-2024 End: 08-16-2024 1 each by In Vit ro route Daily Use to check FSBS four times daily [id number] Start: 07-17-2024 End: 08-16-2024 Inject 1 each un jany the skin Daily [id number] Start: 08-23-2024 End: 09-22-2024 Inject 1 each un jany the skin See administration instructions Use four times daily with insulin pen. [id number] Start: 08-22-2024 End: 08-23-2024 Clinical Notes 02-05-2021 to 08-29-2024 Judie Gutierrez LPN - 08/29/2024 2:20 PM Lorene Gutierrez LPN - 08/22/2024 2:30 PM Lorene Stearns RDMS - 08/16/2024 1:35 PM Era Lundberg MD - 08/15/2024 9:15 AM EST Note Date & Type Note Facility 08-29-2024 History of Present illness Narrative Reason for Appointment: Patient ID: Samantha Benjamin is a 29 y.o. female who presents for Routine Visit Patient presents today for Return OB appointment. MEDICATIONS Current Outpatient Medications Medication Instructions Alcohol Swabs (Alcohol Prep Pad) 70 % pads 1 Pad, Topical, Daily, Use four times daily to check FSBS. aspirin 81 mg, Daily Blood Glucose Monitoring Suppl ([employer] Glucometer) w/Device kit 1 kit, Does not apply, Daily, Use four times daily to check FSBS. In the morning prior to breakfast & 1 hour after each meal for a total of 4times daily. citalopram (CELEXA) 20 mg, Oral, Every morning insulin pen needle 29G x 8mm misc 1 each, Subcutaneous, Daily labetalol (NORMODYNE) 300 mg, Oral, 3 times daily Lantus SoloStar 10 Units, Subcutaneous, Nightly omeprazole (PRILOSEC) 20 mg, Oral, Daily before [...] nursing note reviewed. Exam conducted with a drier operator present. Vitals: Estimated body mass index is 41.42 kg/m as calculated from the following: Height as of 02/22/24: 5' 3 . Weight as of this encounter: 233 lb 12.8 oz. BP: 128/78 Patient's last menstrual period was 12/21/2023. ASSESSMENT & PLAN ICD-10-CM 1. 34 weeks gestation of Z3A.34 POCT urinalysis dipstick manually resulted 2. Third trimester Z34.93 POCT urinalysis dipstick manually resulted Return OB: Patient presents today for a routine obstetrics appointment. Patient is currently 34w5d . Patient states she is doing well but has complaints of being tired due to current . Patient has verbalizes frequent movement. labor precautions was discussed/given and patient was instructed to perform kick counts three times a day. Orders Placed This Encounter Procedures POCT urinalysis dipstick manually resulted Follow Up: Patient is to return to office in 1 week for routine OB appointment. Documented by Judie Gutierrez LPN on behalf of: Scotty Dhillon DO documented in this encounter [facility] 08-22-2024 History of Present illness Narrative Reason for Appointment: Patient ID: Samantha Benjamin is a 29 y.o. female who presents for Routine Visit Patient presents today for Return OB appointment. MEDICATIONS Current Outpatient Medications Medication Instructions Alcohol Swabs (Alcohol Prep Pad) 70 % pads 1 Pad, Topical, Daily, Use four times daily to check FSBS. Blood Glucose Monitoring Suppl ([employer] Glucometer) w/Device kit 1 kit, Does not [...] nursing note reviewed. Exam conducted with a drier operator present. Vitals: Estimated body mass index is [...] times a day. Pt has appt at [facility] on 08/30/24. Reviewed glucose log with pt - initial prescription of Lantus sent in for pt. Pt to stay on labetalol 300 TID. Orders Placed This Encounter Procedures POCT urinalysis dipstick manually resulted Follow Up: Patient is to return to office in 2 week for routine OB appointment. Documented by Judie Gutierrez LPN on behalf of: Scotty Dhillon DO documented in this encounter [facility] 08-16-2024 History of Present illness Narrative Called patient 08/15/24 and 08/16/24 to inform patient of date and time for the Pediatric Cardiology Consultation. L/M for patient to return my call. documented in this encounter [facility] 08-15-2024 History of Present illness Narrative Video Visit via Real-time Synchronous Audiovisual Provider Location: [facility] AT [address] [address] Patient Location: [facility] Patient Location Contact Person: None Video Visit Consent Statement: I discussed [...] that there are some limitations compared to [id number] evaluations. We elected to proceed. REASON FOR [...] outflow tracts on ultrasound BMI 40.0-44.9, adult ([facility]) Past Medical History: Diagnosis Date Anxiety Chronic [...] evening., Disp: , Rfl: miscellaneous medical supply [facility], by miscellaneous route once., Disp: , Rfl: [...] and the other consultants, we search on [employer] and all the available care everywhere epic I did review all the imaging studies of the patient available on EMR, ordered by the primary care physician and the other business information consultant HABITS: Patient activity no restrictions, diet [...] more likely to fail compared to insulin. buttermaker helper data on children whose mothers took oral [...] Chronic hypertension affecting 4. BMI 40.0-44.9, adult ([facility]) Denies signs and symptoms of preeclampsia and [...] of labor - if you would like [facility] to start managing the patient diabetes please [...] patient is in complete care of her thermostatic controls supervisor. Patient does have ultrasound appointment scheduled with us. Thank you for allowing me to participate in Samantha Pierce Brandon . If there any questions please do not hesitate to contact us. Sincerely, Nubia Lundberg MD, FACOG (she/hers) Maternal- Medicine [facility] [address] [place] [address] documented in this encounter [facility] 08-14-2024 History of Present illness [...] to check FSBS. Blood Glucose Monitoring Suppl ([employer] Glucometer) w/Device kit 1 kit, Does not [...] nursing note reviewed. Exam conducted with a drier operator present. Vitals: Estimated body mass index is [...] Scotty Dhillon DO documented in this encounter [facility] 07-31-2024 History of Present illness Narrative [...] LUIS F Tarango documented in this encounter [facility] 07-17-2024 History of Present illness Narrative [...] Scotty Dhillon DO documented in this encounter [facility] 07-14-2024 History of Present illness Narrative [...] yes Have you been seen here at [facility] in a previous ? no Recent ER visits or hospitalizations? no Bring blood sugar log or meter with you today? (Please bring them with you for every visit at [facility]) no Flu vaccine (Jun-September)? no Any concerns [...] outflow tracts on ultrasound BMI 40.0-44.9, adult ([facility]) Past Medical History: Diagnosis Date Anxiety Chronic [...] evening., Disp: , Rfl: miscellaneous medical supply [facility], by miscellaneous route once., Disp: , Rfl: [...] and the other consultants, we search on epic and all the available care everywhere epic I did review all the imaging studies of the patient available on EMR, ordered by the primary care physician and the other business information consultant HABITS: Patient activity no restrictions, diet [...] her 3 hour glucose tolerance test, refer [facility] for diabetes management.. 8. Patient came more than 1 hour late for her ultrasound appointment and therefore has been rescheduled at our [facility] site. DISPOSITION: At this point the patient is in complete care of her thermostatic controls supervisor. Patient does have ultrasound appointment scheduled with us. Thank you for allowing me to participate in Samantha Benjamin . If there any questions please do not hesitate to contact us. Sincerely, ANICETO FOX MD documented in this encounter [facility] 06-15-2024 History of Present illness Narrative Reason [...] LUIS F Tarango documented in this encounter [facility] 05-18-2024 History of Present illness Narrative [...] nursing note reviewed. Exam conducted with a drier operator present. Vitals: Estimated body mass index is [...] of MSA[facility] orders to have drawn at [facility] in [place]. Documented by Angela Butt LPN on behalf of: Scotty Dhillon DO documented in this encounter [facility] 04-20-2024 History of Present illness Narrative [...] LUIS F Tarango documented in this encounter [facility] 03-22-2024 History of Present illness Narrative [...] nursing note reviewed. Exam conducted with a drier operator present. Vitals: Estimated body mass index is [...] or undercooked meat, and stay [facility] Patient has been consulted regarding any further do's and don'ts of . Patient voiced understanding and all questions and concerns were answered. Scheduled 09/14/24. No orders of the defined types were placed in this encounter. Follow Up: Patient is to return in 4 weeks for routine OB appointment. Documented by Judie Gutierrez LPN on behalf of: Scotty Dhillon DO documented in this encounter [facility] 02-05-2021 Note OPERATIVE NOTE OPERATION DATE: 02-06-21 ANESTHETIC:Spinal with Duramorph. CERTIFIED VETERINARY TECHNICIAN:ELVIA Prajapati PREOPERATIVE DIAGNOSIS: 1. Intrauterine at 39 [...] to the Recovery Room in stable condition. [facility] Signed and Approved by: DR SCOTTY DHILLON . 02/11/2021 11:15:00 [facility] 02-05-2021 Note DISCHARGE SUMMARY Discharge Date: [...] Tylenol, any abdominal pain unrelieved with narcotics. [facility] Signed and Approved by: DR SCOTTY DHILLON . 02/25/2021 23:13:00 [facility] Evaluation note No assessment inform ation available [facility] Work Phone: Evaluation note [...] Chronic hypertension affecting documented in this encounter [facility]* Diagnosis Third trimester state, incidental 28 weeks gestation of Gestational diabetes mellitus (GDM) in third trimester, gestational diabetes method of control unspecified Hypertension, unspecified type ([facility]) Gestational diabetes mellitus (GDM), antepartum, gestational diabetes [...] unspecified Chronic hypertension affecting BMI 40.0-44.9, adult ([facility]) arrhythmia affecting , antepartum Abnormality in heart rate/rhythm, antepartum condition or complication Polyhydramnios affecting Separation of chorion and amnion membranes, antepartum documented in this encounter [facility] SystemEvaluation [facility]* Diagnosis Abnormal ultrasonic finding on screening of mother, antepartum- Primary documented in this encounter [facility] note* Diagnosis Third trimester state, incidental 34 weeks gestation of Insulin controlled gestational diabetes mellitus (GDM) during , antepartum [facility] Diagnosis 34 weeks gestation of Third trimester state, incidental documented in this encounter [facility] HealthcareInstructionsNot on filedocumented in this encounterProMedica Health SystemInstructionsNot on filedocumented in this encounterProC[facility] SystemInstructions* Attachments The following attachments cannot be sent through Care Everywhere. * Preeclampsia ([place]) * labor ([place]) documented in this [facility] SystemInstructionsNot on file documented in this encounterProC[facility] SystemInstructionsNot on file documented in [facility] Summary Purpose Family History [...] and content) DATE CREATED AUTHOR 10/15/2021 [facility] DATE CREATED AUTHOR AUTHOR'S ORGANIZ ATION 02/19/2024 [facility] DATE CREATED AUTHOR AUTHOR'S ORGANIZ ATION 07/17/2024 [facility] DATE CREATED AUTHOR AUTHOR'S ORGANIZ ATION 08/18/2024 [facility] DATE CREATED AUTHOR AUTHOR'S ORGANIZ ATION 08/18/2024 [facility] DATE CREATED AUTHOR AUTHOR'S ORGANIZ ATION 08/31/2024 [facility] EPIC Care Teams (unrecognized sec tion and content) Team Status: Active Member Role Status Dates Jacques Mccarthy MD Primary Care Provider Active Team Status: Inactive Member Role Status Dates Jacques Mccarthy MD Primary Care Provider Active Start: January 31, 2024 End: January 31, 2024 Terry Dudley DO Emergency Provider Active St art: January 31, 2024 End: January 31, 2024 Loss Prevention Guard Relationship Specialty Start Date End Date Jacques Mccarthy MD [address] [place] [address] PCP - General Family Medicine 02/08/24 Loss Prevention Guard Relationship Specialty Start Date End Date Jacques Mccarthy MD [address] [place] [address] PCP - General Family Medicine 02/08/24 Loss Prevention Guard Relationship Specialty Start Date End Date Jacques Mccarthy MD PCP - General Family Medicine 10/07/20 Loss Prevention Guard Relationship Specialty Start Date End Date Jacques Mccarthy MD [address] [place] [phone] PCP - General Family Medicine 02/08/24 Loss Prevention Guard Relationship Specialty Start Date End Date Jacques Mccarthy MD [address] [place] [address] PCP - General Family Medicine 02/08/24 Loss Prevention Guard Relationship Specialty Start Date End Date Jacques Mccarthy MD [address] [place] [address] PCP - General Family Medicine 02/08/24 Loss Prevention Guard Relationship Specialty Start Date End Date Jacques Mccarthy MD PCP - General Family Medicine 10/07/20 Loss Prevention Guard Relationship Specialty Start Date End Date Jacques Mccarthy MD [address] [facility] [place] [address] PCP - General Family Medicine 02/08/24 Loss Prevention Guard Relationship Specialty Start Date End Date Jacques Mccarthy MD [address] [facility] [place] [address] PCP - General Family Medicine 02/08/24 Loss Prevention Guard Relationship Specialty Start Date End Date Jacques Mccarthy MD [address] [facility] [place] [address] PCP - General Family Medicine 02/08/24 Loss Prevention Guard Relationship Specialty Start Date End Date Jacques Mccarthy MD [address] [facility] [place] [address] PCP - General Family Medicine 02/08/24 Loss Prevention Guard Relationship Specialty Start Date End Date Jacques Mccarthy MD [address] [facility] [place] [address] PCP - General Family Medicine 02/08/24 Loss Prevention Guard Relationship Specialty Start Date End Date Jacques Mccarthy MD [address] [facility] [place] [address] PCP - General Family Medicine 02/08/24 Loss Prevention Guard Relationship Specialty Start Date End Date Jacques Mccarthy MD [address] [facility] [place] [address] PCP - General Family Medicine 02/08/24 Loss Prevention Guard Relationship Specialty Start Date End Date Jacques Mccarthy MD [address] [facility] [place] [address] PCP - General Family Medicine 02/08/24 Loss Prevention Guard Relationship Specialty Start Date End Date Jacques Mccarthy MD PCP - General Family Medicine 10/07/20 Loss Prevention Guard Relationship Specialty Start Date End Date Jacques Mccarthy MD PCP - General Family Medicine 10/07/20 Loss Prevention Guard Relationship Specialty Start Date End Date Jacques Mccarthy MD PCP - General Family Medicine 10/07/20 Loss Prevention Guard Relationship Specialty Start Date End Date Jacques Mccarthy MD [address] [facility] [place] [address] PCP - General Family Medicine 02/08/24 Loss Prevention Guard Relationship Specialty Start Date End Date Jacques Mccarthy MD [address] [facility] [place] [address] PCP - General Family Medicine 02/08/24 Loss Prevention Guard Relationship Specialty Start Date End Date Jacques Mccarthy MD [address] [facility] [place] [address] PCP - General Family Medicine 02/08/24 Goals [...] BE BASED ON THE PRIMARY CLINICAL RECORDS. [employer] [facility]. provides no warranty or guarantee of the accuracy or completeness of information in this document.
== END 2024-08-28 18:55 | disposition home or self-care (01) ==
LOC: FBCO 18:07 → FBC 18:10
PROVIDERS: PCP Family Medicine; Visit Provider Obstetrics & Gynecology
DX: O99.283 Endocrine, nutritional and metabolic diseases complicating pregnancy, third trimester (principal); Z3A.34 34 weeks gestation of pregnancy
CPT/HCPCS: 59025

== ENCOUNTER 2024-08-30 06:42 | Observation (INO) | payer OTHER, MEDICAID, SELFPAY ==
[2024-08-30] VITALS (7 sets, daily range): BP systolic 128–165; BP diastolic 64–100; PULSE 105–116; TEMP 36.5–37.1; O2SAT 98; BMI 40.7
--- OUTSIDE RECORDS SUMMARY | 2024-08-30 06:50 | XMS_ITS | CCD ---
Author Organization [facility] Care Team Providers Care Account Group Supervisor Name Role Phone JACQUIE, DR FAJARDO Consulting [...] MIGUEL ÁNGEL, DR HANNA Primary Care Unavailable GRAYS KNOB, DR IRINEO Pompa Consulting Unavailable JACQUIE, DR [...] Unavailable DAIANAY, DR HANNA Primary Care Unavailable DAIANAY, DR HANNA Primary Care Unavailable JACQUEI, DR FAJARDO Attending Unavailable JACQUIE, DR FAJARDO Admitting Unavailable JACQUIE, DR FAJARDO Attending Unavailable JACQUIE, DR FAJARDO Admitting Unavailable DAIANAY, DR HANNA Primary Care Unavailable JACQUIE, DR FAJARDO Consulting Unavailable JACQUIE, DR FAJARDO Attending Unavailable HOY, DR HANNA Primary Care Unavailable [...] Unavailable MD Jacques Mccarthy Primary Care Provider [phone] DO Terry Dudley Emergency Provider [phone] Terry Dudley Admitting Unavailable Terry Dudley Attending Unavailable Jacques Mccarthy Primary Care Unavailable Jacques Mccarthy MD Primary Care Provider [phone] Jacques Mccarthy MD Primary Care Provider [phone] ANICETO FOX Attending Unavailable SCOTTY DHILLON Referring [...] Glucose Monitoring Suppl (D-Care Glucometer) w/Device kit (14 sources) Start: 07-17-2024 End: 07-17-2025 Blood Glucose [...] 07/17/2025 Active cephalexin 500 mg oral capsule (5 sources) Cephalosporin Antibacterial Start: 08-05-2024 cephalexin (Keflex) [...] mouth in the morning. 07/14/2024 Discontinued (Reorder) 3 ml insulin glargine 100 unt/ml pen injector (4 sources) Insulin Analog Start: 08-23-2024 End: 09-22-2024 inject 10 [IU] by subcutaneous injection at bedtime insulin glargine (Lantus SoloStar) 100 UNIT/ML pen Indications: Insulin controlled gestational diabetes mellitus (GDM) during , antepartum Inject 10 Units under the skin at bedtime 3 mL 3 08/23/2024 09/22/2024 Active Start: 08-22-2024 End: 08-23-2024 inject 10 [IU] by subcutaneous injection in the evening insulin glargine (Lantus) 100 UNIT/ML injection Indications: Hyperglycemia , GESTATIONAL DIABETES Inject 10 Units under the skin in the evening 3 mL 08/22/2024 08/23/2024 Discontinued isopropyl alcohol 0.7 ml/ml medicated pad (14 sources) Start: 07-17-2024 Alcohol Swabs (Alcohol Prep Pad) 70 % pads Indications: Gestational diabetes mellitus (GDM) in third trimester, gestational diabetes method of control unspecified , Gestational diabetes mellitus (GDM), antepartum, gestational diabetes method of control unspecified , Elevated glucose tolerance test Apply 1 Pad topically Daily Use four times daily to check FSBS. 150 each 3 07/17/2024 Active miscellaneous medical supply misc (5 sources) miscellaneous medical supply misc by miscellaneous route once. Active omeprazole 20 mg delayed release oral capsule (20 sources) Proton Pump Inhibitor Start: 07-14-2024 End: 07-14-2024 take 1 capsule by mouth in the [...] Dates Sig (Normalized) Sig (Original) labetalol hydrochloride 300 mg oral tablet (20 sources) beta-Adrenergic All Start: 08-05-2024 End: 08-23-2024 take 1 tablet by mouth in the morning, then take 1 tablet by mouth in the evening, then take 1 tablet by mouth at bedtime labetalol (Normodyne) 300 MG tablet Take 1 tablet by mouth in the morning and 1 tablet in the evening and 1 tablet before bedtime. 08/05/2024 08/23/2024 Discontinued (Reorder) Start: 05-01-2024 End: 09-13-2024 take 1 tablet [...] (200 mg total) in the evening. Active NIFEdipine 10 mg oral capsule (5 sources) Dihydropyridine Calcium Channel All Start: 08-05-2024 End: 08-22-2024 take 1 capsule by mouth every six hours NIFEdipine (Procardia) 10 MG capsule Take 10 mg by mouth every 6 (six) hours 08/05/2024 08/22/2024 Discontinued Problems Active Problems Problem Classification Problem Date [...] weeks gestation of ] Onset: 08-15-2024 Episodic Residual codes; unclassified (2 sources) Gestation period, 34 weeks; Translations: [34 weeks gestation of ] 08-22-2024 Episodic Unclassified (1 source) CONTACT W/AND (SUSP) [...] mental disorders complicating , third trimester; Translations: [[facility] MENTAL D/O COMP PREG THIRD TRI] Onset: [...] [facility] Facility Urinalysis macro (dipstick) panel (U)on 08-22-2024 Bilirubin, UA Negative Negative - 4(70) +++ mg/dL [facility] Blood, UA Negative Negative - 50 Hardeep/mcL [facility] Clarity, UA Clear [facility] Color, UA Yellow [facility] Glucose, UA Negative Negative - 1999(110) ++++ mg/dL [facility] Interpretation and review of laboratory results Normal [facility] Ketones, UA Negative Negative - 160(16) ++++ mg/dL [facility] Leukocytes, UA Negative Negative - 500+++ Renee/mcL [facility] Nitrite, UA Negative Negative - Positive [facility] pH, UA 7 5 - 9 [facility] Protein, UA Negative Negative - 2000(20) ++++ mg/dL [facility] Spec Grav, UA 1.015 1 - 1.03 [facility] Urobilinogen, UA 0.2 0.2 - 12 mg/dL [facility] Urinalysis macro (dipstick) panel (U)on 08-14-2024 Bilirubin, UA Negative Negative - 4(70) +++ mg/dL [facility] Blood, UA Positive Negative - 50 Hardeep/mcL [facility] Comment on above: trace-intact Clarity, UA Clear [facility] Color, UA Yellow [facility] Glucose, UA Negative Negative - 1999(110) ++++ mg/dL [facility] Interpretation and review of laboratory results Abnormal [facility] Ketones, UA Positive Negative - 160(16) ++++ mg/dL [facility] Comment on above: 40 Leukocytes, UA Negative Negative - 500+++ Renee/mcL [facility] Nitrite, UA Negative Negative - Positive [facility] pH, UA 6 5 - 9 [facility] Protein, UA Trace Negative - 1999(20) ++++ mg/dL [facility] Spec Grav, UA 1.02 1 - 1.03 [facility] Urobilinogen, UA 0.2 0.2 - 12 mg/dL [facility] ALL CBC WITH AUTO DIFFon BASOPHILS ABSOLUTE AUTO 0.1 [facility] Basophils/100 WBC (Bld) 0.3 % 0.2 - 2.0 % [facility] Eosinophils/100 WBC (Bld) 0.6 % Low 0.9 - 7.0 % [facility] Erythrocyte distribution width (RBC) [Ratio] 12.2 % 11.0 - 15.0 % [facility] Hematocrit (Bld) [Volume fraction] 36.7 % 36.0 - 48.0 % [facility] Hemoglobin (Bld) [Mass/Vol] 12.5 g/dL 12.0 - 16.0 g/dL [facility] IMMATURE GRANULOCYTES ABS AUTO 0.33 High [facility] Immature granulocytes/100 WBC (Bld) 2 % High 0.0 - 0.5 % [facility] Interpretation and review of laboratory results Abnormal [facility] LYMPHOCYTES ABSOLUTE AUTO 1.6 [facility] Lymphocytes/100 WBC (Bld) 9.9 % Low 20.5 - 60.0 % [facility] MCH (RBC) [Entitic mass] 29.7 pg 26.7 - 34.0 pg [facility] MCHC (RBC) [Mass/Vol] 34.1 g/dL 29.9 - 35.2 g/dL [facility] MCV (RBC) [Entitic vol] 87.2 fL 81.0 - 99.0 fL [facility] MONOCYTES ABSOLUTE AUTO 1 High [facility] Monocytes/100 WBC (Bld) 6.3 % 1.7 - 12.0 % [facility] NEUTROPHILS ABSOLUTE AUTO 13.2 High [facility] Neutrophils/100 WBC (Bld) 80.9 % High 43.0 - 75.0 % [facility] Platelet mean volume (Bld) [Entitic vol] 10.5 fL 9.5 - 13.5 [facility] PLT 247 [facility] RBC 4.21 [facility] WBC 16.3 High [facility] ALL CBC WITH AUTO DIFFon BASOPHILS ABSOLUTE AUTO 0.1 [facility] Basophils/100 WBC (Bld) 0.3 % 0.2 - 2.0 % [facility] Eosinophils/100 WBC (Bld) 0.2 % Low 0.9 - 7.0 % [facility] Erythrocyte distribution width (RBC) [Ratio] 12.1 % 11.0 - 15.0 % [facility] Hematocrit (Bld) [Volume fraction] 35.3 % Low 36.0 - 48.0 % [facility] Hemoglobin (Bld) [Mass/Vol] 12.1 g/dL 12.0 - 16.0 g/dL [facility] IMMATURE GRANULOCYTES ABS AUTO 0.31 High [facility] Immature granulocytes/100 WBC (Bld) 1.7 % High 0.0 - 0.5 % [facility] Interpretation and review of laboratory results Abnormal [facility] LYMPHOCYTES ABSOLUTE AUTO 1.4 [facility] Lymphocytes/100 WBC (Bld) 7.9 % Low 20.5 - 60.0 % [facility] MCH (RBC) [Entitic mass] 29.8 pg 26.7 - 34.0 pg [facility] MCHC (RBC) [Mass/Vol] 34.3 g/dL 29.9 - 35.2 g/dL [facility] MCV (RBC) [Entitic vol] 86.9 fL 81.0 - 99.0 fL [facility] MONOCYTES ABSOLUTE AUTO 1.3 High [facility] Monocytes/100 WBC (Bld) 7.1 % 1.7 - 12.0 % [facility] NEUTROPHILS ABSOLUTE AUTO 15.1 High [facility] Neutrophils/100 WBC (Bld) 82.8 % High 43.0 - 75.0 % [facility] Platelet mean volume (Bld) [Entitic vol] 10.5 fL 9.5 - 13.5 fL [facility] EO # 0 [facility] PLT 217 [facility] RBC 4.06 Low [facility] WBC 18.2 High [facility] UA (CLEAN/CATCH) DIRECTOR OF SPECIAL EDUCATION/KEYLA RO IF IND.on 08-04-2024 BILIRUBIN URINE Negative NEGATIVE [facility] BLOOD URINE Negative NEGATIVE [facility] Clarity (U) CLEAR CLEAR [facility] Color (U) YELLOW YELLOW [facility] GLUCOSE URINE UA 500 mg/dL Abnormal NEGATIVE [facility] Interpretation and review of laboratory results Abnormal [facility] Ketones Ql (U) Negative NEGATIVE mg/dL [facility] Leukocyte esterase Test strip Ql (U) Negative NEGATIVE [facility] NITRITE URINE Negative NEGATIVE [facility] pH (U) 6.0 [pH] 5.0 - 9.0 [facility] PROTEIN URINE Negative NEG/TRACE mg/dL [facility] SPECIFIC GRAVITY URINE 1.025 1.005 - 1.025 [facility] URINE MICROSCOPIC INDICATED NO [facility] UROBILINOGEN URINE 0.2 EU/dL 0.2 - 1.0 EU/dL [facility] Urinalysis macro (dipstick) panel (U)on 07-31-2024 Bilirubin, UA Negative Negative - 4(70) +++ mg/dL [facility] Blood, UA Positive Negative - 50 Hardeep/mcL [facility] Comment on above: small Clarity, UA Clear [facility] Color, UA Yellow [facility] Glucose, UA Positive Negative - 1999(110) ++++ mg/dL [facility] Comment on above: 250 Interpretation and review of laboratory results Abnormal [facility] Ketones, UA Negative Negative - 160(16) ++++ mg/dL [facility] Leukocytes, UA Negative Negative - 500+++ Renee/mcL [facility] Nitrite, UA Negative Negative - Positive [facility] pH, UA 6 5 - 9 [facility] Protein, UA Trace Negative - 1999(20) ++++ mg/dL [facility] Spec Grav, UA 1.02 1 - 1.03 [facility] Urobilinogen, UA 0.2 0.2 - 12 mg/dL [facility] Urinalysis macro (dipstick) panel (U)on 07-17-2024 Bilirubin, UA Negative Negative - 4(70) +++ mg/dL [facility] Blood, UA Negative Negative - 50 Hardeep/mcL [facility] Clarity, UA Clear [facility] Color, UA Yellow [facility] Glucose, UA Positive Negative - 1999(110) ++++ mg/dL [facility] Comment on above: 500 Interpretation and review of laboratory results Abnormal [facility] Ketones, UA Positive Negative - 160(16) ++++ mg/dL [facility] Comment on above: TRACE Leukocytes, UA Negative Negative - 500+++ Renee/mcL [facility] Nitrite, UA Negative Negative - Positive [facility] pH, UA 5.5 5 - 9 [facility] Protein, UA Negative Negative - 1999(20) ++++ mg/dL [facility] Spec Grav, UA 1.02 1 - 1.03 [facility] Urobilinogen, UA 0.2 0.2 - 12 mg/dL [facility] Glucose random or fasting- P OCTon 07-14-2024 External Glucose Fasting Or Random (Fbs) 169 [facility] ALL CBC WITH AUTO DIFFon BASOPHILS ABSOLUTE AUTO 0.1 [facility] Basophils/100 WBC (Bld) 0.3 % 0.2 - 2.0 % [facility] Eosinophils/100 WBC (Bld) 0.3 % Low 0.9 - 7.0 % [facility] Erythrocyte distribution width (RBC) [Ratio] 12.1 % 11.0 - 15.0 % [facility] Hematocrit (Bld) [Volume fraction] 37.3 % 36.0 - 48.0 % [facility] Hemoglobin (Bld) [Mass/Vol] 12.7 g/dL 12.0 - 16.0 g/dL [facility] IMMATURE GRANULOCYTES ABS AUTO 0.32 High [facility] Immature granulocytes/100 WBC (Bld) 1.8 % High 0.0 - 0.5 % [facility] Interpretation and review of laboratory results Abnormal [facility] LYMPHOCYTES ABSOLUTE AUTO 1.5 [facility] Lymphocytes/100 WBC (Bld) 8.3 % Low 20.5 - 60.0 % [facility] MCH (RBC) [Entitic mass] 30.3 pg 26.7 - 34.0 pg [facility] MCHC (RBC) [Mass/Vol] 34 g/dL 29.9 - 35.2 g/dL [facility] MCV (RBC) [Entitic vol] 89 fL 81.0 - 99.0 fL [facility] MONOCYTES ABSOLUTE AUTO 0.9 High [facility] Monocytes/100 WBC (Bld) 5.2 % 1.7 - 12.0 % [facility] NEUTROPHILS ABSOLUTE AUTO 15 High [facility] Neutrophils/100 WBC (Bld) 84.1 % High 43.0 - 75.0 % [facility] Platelet mean volume (Bld) [Entitic vol] 10.4 fL 9.5 - 13.5 fL [facility] TBH EO # 0.1 [facility] TB PLT 255 [facility] RBC 4.19 Low [facility] WBC 17.8 High [facility] Urinalysis macro (dipstick) panel (U)on 06-15-2024 Bilirubin, UA Negative Negative - 4(70) +++ mg/dL [facility] Blood, UA Negative Negative - 50 Hardeep/mcL [facility] Clarity, UA Clear [facility] Color, UA Yellow [facility] Glucose, UA Positive Negative - 2000(110) ++++ mg/dL [facility] Interpretation and review of laboratory results Abnormal [facility] Ketones, UA Negative Negative - 160(16) ++++ mg/dL [facility] Leukocytes, UA Positive Negative - 500+++ Renee/mcL [facility] Nitrite, UA Negative Negative - Positive [facility] pH, UA 5.5 5 - 9 [facility] Protein, UA Negative Negative - 1999(20) ++++ mg/dL [facility] Spec Grav, UA 1.02 1 - 1.03 [facility] Urobilinogen, UA 1.0 0.2 - 12 mg/dL [facility] Urinalysis macro (dipstick) panel (U)on 05-18-2024 Bilirubin, UA Negative Negative - 4(70) +++ mg/dL [facility] Blood, UA Negative Negative - 50 Hardeep/mcL [facility] Clarity, UA Clear [facility] Color, UA Yellow [facility] Glucose, UA Negative Negative - 1999(110) ++++ mg/dL [facility] Interpretation and review of laboratory results Normal [facility] Ketones, UA Negative Negative - 160(16) ++++ mg/dL [facility] Leukocytes, UA Negative Negative - 500+++ Renee/mcL [facility] Nitrite, UA Negative Negative - Positive [facility] pH, UA 7 5 - 9 [facility] Protein, UA Negative Negative - 1999(20) ++++ mg/dL [facility] Spec Grav, UA 1.025 1 - 1.03 [facility] Urobilinogen, UA 0.2 0.2 - 12 mg/dL [facility] Urinalysis macro (dipstick) panel (U)on 04-20-2024 Bilirubin, UA Positive Negative - 4(70) +++ mg/dL [facility] Comment on above: small Blood, UA Negative Negative - 50 Hardeep/mcL [facility] Clarity, UA Clear [facility] Color, UA Yellow [facility] Glucose, UA Negative Negative - 1999(110) ++++ mg/dL [facility] Interpretation and review of laboratory results Abnormal [facility] Ketones, UA Positive Negative - 160(16) ++++ mg/dL [facility] Comment on above: trace Leukocytes, UA Negative Negative - 500+++ Renee/mcL [facility] Nitrite, UA Negative Negative - Positive [facility] pH, UA 6.5 5 - 9 [facility] Protein, UA Trace Negative - 1999(20) ++++ mg/dL [facility] Spec Grav, UA 1.030 1 - 1.03 [facility] Urobilinogen, UA 1.0 0.2 - 12 mg/dL [facility] Activated partial thrombopla stin time (aPTT) in platelet poor plasma by coagulation aOrdered By: Terry Dudley on 01-31-2024 aPTT Coag (PPP) [Time] 26.1 s 25.1-36.5 [facility] Comment on above: A hematocrit value g reater than 55% may lead to inaccurate results in coagulation testing. Patients having hematocrit values >55% require a special collection tube for coagulation studies. Please contact the laboratory at [phone] for redraw instructions. Alanine aminotransferase [En zymatic activity/volume] in Serum or PlasmaOrdered By: Terry Dudley on 01-31-2024 ALT [Catalytic activity/Vol] 22 U/L Normal 7-52 [facility] Comment on above: Performed By: #### H S TROP, PTT, CMP, DDIMER, BNP, CK, PT, CBC #### [facility] [address] [place] [address] [place] Albumin [Mass/volume] in Ser um or Plasma by Bromocresol green (BCG) dye binding methoOrdered By: Terry Dudley on 01-31-2024 Albumin BCG dye [Mass/Vol] 4.7 g/dL 3.5-5.7 [facility] Alkaline phosphatase [Enzyma tic activity/volume] in Serum or PlasmaOrdered By: Terry Dudley on 01-31-2024 ALP [Catalytic activity/Vol] 67 U/L Normal 34-104 [facility] Comment on above: Performed By: #### H S TROP, PTT, CMP, DDIMER, BNP, CK, PT, CBC #### [facility] [address] [place] [id number] [facility] [[email or web address]] Aspartate aminotransferase [ Enzymatic activity/volume] in Serum or PlasmaOrdered By: Terry Dudley on 01-31-2024 AST [Catalytic activity/Vol] 17 U/L Normal 13-39 [facility] Comment on above: Performed By: #### H S TROP, PTT, CMP, DDIMER, BNP, CK, PT, CBC #### [facility] [address] [place] [id number] [place] Automated basophil %Ordered By: Terry Dudley on 01-31-2024 Basophils/100 WBC (Bld) 0.6 % Normal . [facility] Comment on above: Performed By: #### H S TROP, PTT, CMP, DDIMER, BNP, CK, PT, CBC #### [address] Automated basophil countOrde red By: Terry Dudley on 01-31-2024 Basophils (Bld) [#/Vol] 0.1 10*3/uL Normal 0.0-0.2 [facility] Comment on above: Result Comment: PERF ORMED BY: [place] [address] PATHOLOGIST VINYL HANGER CARLOS HITCHCOCK M.D. Performed By: #### H S TROP, PTT, CMP, DDIMER, BNP, CK, PT, CBC #### [address] Automated blood monocyte cou ntOrdered By: Terry Dudley on 01-31-2024 Monocytes (Bld) [#/Vol] 1.3 10*3/uL High 0.0-0.8 [facility] Comment on above: Performed By: #### H S TROP, PTT, CMP, DDIMER, BNP, CK, PT, CBC #### [address] Automated eosinophil %Ordere d By: Terry Dudley on 01-31-2024 Eosinophils/100 WBC (Bld) 0.3 % Normal . [facility] Comment on above: Performed By: #### H S TROP, PTT, CMP, DDIMER, BNP, CK, PT, CBC #### [address] Automated eosinophil countOr dered By: Terry Dudley on 01-31-2024 Eosinophils (Bld) [#/Vol] 0.1 10*3/uL Normal 0.0-0.45 [facility] Comment on above: Performed By: #### H S TROP, PTT, CMP, DDIMER, BNP, CK, PT, CBC #### [address] Automated monocyte %Ordered By: Terry Dudley on 01-31-2024 Monocytes/100 WBC (Bld) 7.5 % Normal . [facility] Comment on above: Performed By: #### H S TROP, PTT, CMP, DDIMER, BNP, CK, PT, CBC #### [address] Automated neutrophil %Ordere d By: Terry Dudley on 01-31-2024 Neutrophils/100 WBC (Bld) 79.8 % Normal . [facility] Comment on above: Performed By: #### H S TROP, PTT, CMP, DDIMER, BNP, CK, PT, CBC #### [address] BNP ser/plasOrdered By: Delgado Dudley on 01-31-2024 Natriuretic peptide B (Bld) [Mass/Vol] 30.0 pg/mL Normal 5-100 [facility] Comment on above: Result Comment: PERF ORMED BY: [place] [address] PATHOLOGIST VINYL HANGER CARLOS HITCHCOCK M.D. Performed By: #### H S TROP, PTT, CMP, DDIMER, BNP, CK, PT, CBC #### [address] Bilirubin Test strip Ql (U)O rdered By: Terry Dudley on 01-31-2024 Bilirubin Ql (U) Negative Negative [facility] Bilirubin.total [Mass/volume ] in Serum or PlasmaOrdered By: Terry Dudley on 01-31-2024 Bilirubin [Mass/Vol] 0.5 mg/dL Normal 0.3-1.[address] [facility] Comment on above: Performed By: #### H S TROP, PTT, CMP, DDIMER, BNP, CK, PT, CBC #### [address] Calcium [Mass/volume] in Ser um or PlasmaOrdered By: Terry Dudley on 01-31-2024 Calcium [Mass/Vol] 9.6 mg/dL Normal 8.6-10.3 [facility] Comment on above: Performed By: #### H S TROP, PTT, CMP, DDIMER, BNP, CK, PT, CBC #### [address] Carbon dioxide, total [Moles /volume] in Serum or PlasmaOrdered By: Terry Dudley on 01-31-2024 CO2 [Moles/Vol] 30.1 mmol/L Normal 21.0-31.0 [facility] Comment on above: Performed By: #### H S TROP, PTT, CMP, DDIMER, BNP, CK, PT, CBC #### [address] Chloride [Moles/volume] in S marty or PlasmaOrdered By: Terry Dudley on 01-31-2024 Chloride [Moles/Vol] 101 mmol/L Normal 98-[address] [facility] Comment on above: Performed By: #### H S TROP, PTT, CMP, DDIMER, BNP, CK, PT, CBC #### [address] Color of Urine by AutoOrdere d By: Terry Dudley on 01-31-2024 Color (U) Colorless Normal Yellow [facility] Comment on above: Order Comment: Name Collection Type:: Clean-Voided Midstream Performed By: #### U A, UHCG #### [address] Complete Blood Count Auto Di ffon 01-31-2024 Mean Corpuscular HGB Conc 34.6 g/dL Normal 32.0-35.0 [facility] Comment on above: Performed By: #### H S TROP, PTT, CMP, DDIMER, BNP, CK, PT, CBC #### [place] [address] [place] Monocytes/100 WBC (Bld) 14.85 % Normal 0.00-20.00 [facility] Comment on above: Performed By: #### H S TROP, PTT, CMP, DDIMER, BNP, CK, PT, CBC #### [address] NRBC% 0.0 /100{WBC} Normal 0-0.5 [facility] Comment on above: Performed By: #### H S TROP, PTT, CMP, DDIMER, BNP, CK, PT, CBC #### [address] Comprehensive Metabolic Pane urszula 01-31-2024 Albumin [Mass/Vol] 4.7 g/dL Normal 3.5-5.7 [facility] Comment on above: Performed By: #### H S TROP, PTT, CMP, DDIMER, BNP, CK, PT, CBC #### [address] Creatinine Clr Calc Pharmacy 119.17 Normal [facility] Comment on above: Result Comment: PERF ORMED BY: [place] [address] PATHOLOGIST VINYL HANGER CARLOS HITCHCOCK M.D. Performed By: #### H S TROP, PTT, CMP, DDIMER, BNP, CK, PT, CBC #### [address] GFR/1.73 sq M.predicted MDRD (S/P/Bld) [Vol rate/Area] mL/min/{1.73_m2} Normal [facility] Comment on above: Performed By: #### H S TROP, PTT, CMP, DDIMER, BNP, CK, PT, CBC #### [address] Creatine kinase [Enzymatic a ctivity/volume] in Serum or PlasmaOrdered By: Terry Dudley on 01-31-2024 CK [Catalytic activity/Vol] 76 U/L Normal 30-223 [facility] Comment on above: Performed By: #### H S TROP, PTT, CMP, DDIMER, BNP, CK, PT, CBC #### [address] Creatinine [Mass/volume] in Serum or PlasmaOrdered By: Terry Dudley on 01-31-2024 Creatinine [Mass/Vol] 0.80 mg/dL Normal 0.60-1.20 [facility] Comment on above: Performed By: #### H S TROP, PTT, CMP, DDIMER, BNP, CK, PT, CBC #### [place] [id number] [facility] [[email or web address]] D-Dimer High Sensitivityon 0 01-31-2024 D-Dimer High [...] coagulation studies. Please contact the laboratory at [phone] for redraw instructions. PERFORMED BY: [place] [address] PATHOLOGIST VINYL HANGER CARLOS HITCHCOCK M.D. Performed By: #### H S TROP, PTT, CMP, DDIMER, BNP, CK, PT, CBC #### [place] [id number] [facility] [[email or web address]] ECG 12 lead ECGon 01-31-2024 ECG 12 lead ECG [facility] [place] [address] [place] [address] Electrocardiograph Report Signed Patient: Samantha Taylor MR#: [id number] : 1995 Acct:[id number] Age/Sex: 28 / F ADM Date: 01/31/24 Loc: ER Room: Type: [facility] ER Attending Dr: Ordering Provider: Terry Dudley, DO Date of Service: 01/31/2408/25/1404 ECG/ECG 12 [...] By: MUS Signed By Terry Dudley DO 192 Normal [facility] Erythrocyte distribution wid th [Ratio] by Automated countOrdered By: Terry Dudley on 01-31-2024 Erythrocyte distribution width (RBC) [Ratio] 12.4 % Normal 11.9-15.3 [facility] Comment on above: Performed By: #### H S TROP, PTT, CMP, DDIMER, BNP, CK, PT, CBC #### [facility] [address] Erythrocytes [#/volume] in B lood by Automated countOrdered By: Terry Dudley on 01-31-2024 RBC (Bld) [#/Vol] 4.93 10*6/uL Normal 3.60-5.00 [facility] Comment on above: Performed By: #### H S TROP, PTT, CMP, DDIMER, BNP, CK, PT, CBC #### [facility] [address] Fibrin D-dimer [Presence] in Platelet poor plasma by Latex agglutinationOrdered By: Terry Dudley on 01-31-2024 Fibrin D-dimer LA Ql (PPP) < 200 ng/mL 0-243 [facility] Comment on above: The reference range [...] coagulation studies. Please contact the laboratory at [phone] for redraw instructions. Glucose [Mass/volume] in Ser um or PlasmaOrdered By: Terry Dudley on 01-31-2024 Glucose [Mass/Vol] 91 mg/dL Normal 70-100 [facility] Comment on above: ADA recommended refe rence rangeRandom Glucose Reference Range is dependent on time and content of last meal. Glucose of more than 200 mg/dL in a nonstressed, ambulatory subject supports the diagnosis of Diabetes Mellitus. Result Comment: Dwarf om Glucose Reference Range is dependent on time and content of last meal. Glucose of more than 200 mg/dL in a nonstressed, ambulatory subject supports the diagnosis of Diabetes Mellitus. ADA recommended reference range Performed By: #### H S TROP, PTT, CMP, DDIMER, BNP, CK, PT, CBC #### [facility] [address] Glucose [Mass/volume] in Uri ne by Test stripOrdered By: Terry Dudley on 01-31-2024 Glucose Test strip (U) [Mass/Vol] Normal mg/dL Normal [facility] HCG ( test) IA.rapi d Ql (U)Ordered By: Terry Dudley on 01-31-2024 HCG ( test) Ql (U) Positive [facility] HCG,Urineon 01-31-2024 Beta HCG ( test) Ql (U) Positive [facility] Comment on above: Order Comment: Name Collection Type:: Clean-Voided Midstream Result Comment: PERF ORMED BY: [facility] [address] [place] [address] PATHOLOGIST VINYL HANGER CARLOS HITCHCOCK M.D. Performed By: #### H S TROP, PTT, CMP, DDIMER, BNP, CK, PT, CBC #### [facility] [address] Hematocrit [Volume Fraction] of Blood by Automated countOrdered By: Terry Luis Enrique on 01-31-2024 Hematocrit (Bld) [Volume fraction] 45.1 % Normal 34.0-46.4 [facility] Comment on above: Performed By: #### H S TROP, PTT, CMP, DDIMER, BNP, CK, PT, CBC #### [address] Hemoglobin Test strip Ql (U) Ordered By: Terry Dudley on 01-31-2024 Hemoglobin Ql (U) Negative Negative [facility] Hemoglobin [Mass/volume] in BloodOrdered By: Terry Dudley on 01-31-2024 Hemoglobin (Bld) [Mass/Vol] 15.6 g/dL High 11.8-15.4 [facility] Comment on above: Performed By: #### H S TROP, PTT, CMP, DDIMER, BNP, CK, PT, CBC #### [address] INR in Platelet poor plasma by Coagulation assayOrdered By: Terry Dudley on 01-31-2024 INR Coag (PPP) [Relative time] 1.2 {INR} Normal [facility] Comment on above: INR Therapeutic Rang [...] CMP, DDIMER, BNP, CK, PT, CBC #### [facility] [address] [place] [address] [place] Ketones [Presence] in Urine by Test stripOrdered By: Terry Dudley on 01-31-2024 Ketones Ql (U) Negative Normal Negative [facility] Comment on above: Order Comment: Name Collection Type:: Clean-Voided Midstream Performed By: #### U A, UHCG #### [place] [address] [place] Leukocyte esterase [Presence ] in Urine by Test stripOrdered By: Terry Dudley on 01-31-2024 Leukocyte esterase Test strip Ql (U) Negative Normal Negative [facility] Comment on above: Order Comment: Name Collection Type:: Clean-Voided Midstream Performed By: #### U A, UHCG #### [place] [address] [place] Leukocytes [#/volume] correc edna for nucleated erythrocytes in Blood by Automated counOrdered By: Terry Dudley on 01-31-2024 WBC corrected for nucl RBC Auto (Bld) [#/Vol] 17.5 10*3/uL High 3.8-11.6 [facility] Leukocytes [#/volume] in Blo od by Automated countOrdered By: Terry Dudley on 01-31-2024 WBC (Bld) [#/Vol] 17.5 10*3/uL High 3.8-11.6 [facility] Comment on above: Performed By: #### H S TROP, PTT, CMP, DDIMER, BNP, CK, PT, CBC #### [place] [address] [place] Lymphocytes [#/volume] in Bl ood by Automated countOrdered By: Terry Dudley on 01-31-2024 Lymphocytes (Bld) [#/Vol] 2.1 10*3/uL Normal 1.00-4.8 [facility] Comment on above: Performed By: #### H S TROP, PTT, CMP, DDIMER, BNP, CK, PT, CBC #### [place] [address] [place] Lymphocytes/100 leukocytes i n Blood by Automated countOrdered By: Terry Dudley on 01-31-2024 Lymphocytes/100 WBC (Bld) 11.8 % Normal . [facility] Comment on above: Performed By: #### H S TROP, PTT, CMP, DDIMER, BNP, CK, PT, CBC #### [address] MCH [Entitic mass] by Automa edna countOrdered By: Terry Dudley on 01-31-2024 MCH (RBC) [Entitic mass] 31.7 pg Normal 24.7-34.3 [facility] Comment on above: Performed By: #### H S TROP, PTT, CMP, DDIMER, BNP, CK, PT, CBC #### [address] MCHC Auto (RBC) [Mass/Vol]Or dered By: Terry Dudley on 01-31-2024 MCHC (RBC) [Mass/Vol] 34.6 g/dL 32.0-35.0 [facility] MCV [Entitic volume] by Auto mated countOrdered By: Terry Dudley on 01-31-2024 MCV (RBC) [Entitic vol] 91.4 fL Normal 80-100 [facility] Comment on above: Performed By: #### H S TROP, PTT, CMP, DDIMER, BNP, CK, PT, CBC #### [address] Monocyte distribution width [Entitic volume] in Blood by AutomatedOrdered By: Terry Dudley on 01-31-2024 Monocyte distribution width Auto (Bld) [Entitic vol] 14.85 % 0.00-20.00 [facility] Neutrophils [#/volume] in Bl ood by Automated countOrdered By: Terry Dudley on 01-31-2024 Neutrophils (Bld) [#/Vol] 14.0 10*3/uL High 1.8-7.7 [facility] Comment on above: Performed By: #### H S TROP, PTT, CMP, DDIMER, BNP, CK, PT, CBC #### [place] [address] [place] Nitrite Test strip Ql (U)Ord ered By: Terry Dudley on 01-31-2024 Nitrite Ql (U) Negative Negative [facility] No Panel InformationOrdered By: Terry Dudley on 01-31-2024 Estimated GFR (CKD-EPI) > 60.0 mL/Min [facility] Creatinine Clearance (Chem 119.17 [facility] Nucleated erythrocytes [Pres ence] in Blood by Automated countOrdered By: Terry Dudley on 01-31-2024 Nucleated RBC Auto Ql (Bld) 0.0 /100{WBC} 0-0.5 [facility] Partial Thromboplastin Timeo n 01-31-2024 aPTT [...] coagulation studies. Please contact the laboratory at [phone] for redraw instructions. Performed By: #### H S TROP, PTT, CMP, DDIMER, BNP, CK, PT, CBC #### [facility] [address] Platelet mean volume [Entiti c volume] in Blood by Automated countOrdered By: Terry Dudley on 01-31-2024 Platelet mean volume (Bld) [Entitic vol] 8.7 fL Normal 6.3-10.7 [facility] Comment on above: Performed By: #### H S TROP, PTT, CMP, DDIMER, BNP, CK, PT, CBC #### [facility] [address] Platelets [#/volume] in Bloo d by Automated countOrdered By: Terry Dudley on 01-31-2024 Platelets (Bld) [#/Vol] 297 10*3/uL Normal 150-450 [facility] Comment on above: Performed By: #### H S TROP, PTT, CMP, DDIMER, BNP, CK, PT, CBC #### [facility] [address] [place] [address] [place] Potassium [Moles/volume] in Serum or PlasmaOrdered By: Terry Dudley on 01-31-2024 Potassium [Moles/Vol] 3.4 mmol/L Low 3.5-5.1 [facility] Comment on above: Performed By: #### H S TROP, PTT, CMP, DDIMER, BNP, CK, PT, CBC #### [facility] [address] Protein Test strip (U) [Mass /Vol]Ordered By: Terry Dudley on 01-31-2024 Protein (U) [Mass/Vol] Negative Negative [facility] Protein [Mass/volume] in Ser um or PlasmaOrdered By: Terry Dudley on 01-31-2024 Protein [Mass/Vol] 7.7 g/dL Normal 6.4-8.9 [facility] Comment on above: Performed By: #### H S TROP, PTT, CMP, DDIMER, BNP, CK, PT, CBC #### [facility] [address] Prothrombin time (PT)Ordered By: Terry Dudley on 01-31-2024 PT Coag (PPP) [Time] 14.0 s High 9.0-12.[address] [facility] Comment on above: A hematocrit value g reater than 55% may lead to inaccurate results in coagulation testing. Patients having hematocrit values >55% require a special collection tube for coagulation studies. Please contact the laboratory at [phone] for redraw instructions. Result Comment: A he matocrit value greater than 55% may lead to inaccurate results in coagulation testing. Patients having hematocrit values >55% require a special collection tube for coagulation studies. Please contact the laboratory at [phone] for redraw instructions. Performed By: #### H S TROP, PTT, CMP, DDIMER, BNP, CK, PT, CBC #### [facility] [address] [place] [id number] [facility] [[email or web address]] Serum globulin measurement b y calculation (mass/volume)Ordered By: Terry Dudley on 01-31-2024 Globulin (S) [Mass/Vol] 3.0 g/dL Normal [facility] Comment on above: Performed By: #### H S TROP, PTT, CMP, DDIMER, BNP, CK, PT, CBC #### [facility] [address] [place] [address] Serum or plasma albumin/glob ulin mass ratioOrdered By: Terry Dudley on 01-31-2024 Albumin/Globulin [Mass ratio] 1.6 {ratio} Normal [facility] Comment on above: Performed By: #### H S TROP, PTT, CMP, DDIMER, BNP, CK, PT, CBC #### [address] Serum or plasma anion gap de terminationOrdered By: Terry Dudley on 01-31-2024 Anion gap [Moles/Vol] 8.3 mmol/L Normal 6.0-15.0 [facility] Comment on above: Performed By: #### H S TROP, PTT, CMP, DDIMER, BNP, CK, PT, CBC #### [address] Sodium [Moles/volume] in Ser um or PlasmaOrdered By: Terry Dudley on 01-31-2024 Sodium [Moles/Vol] 136 mmol/L Normal 136-145 [facility] Comment on above: Performed By: #### H S TROP, PTT, CMP, DDIMER, BNP, CK, PT, CBC #### [address] Specific gravity Test strip (U) [Rel density]Ordered By: Terry Dudley on 01-31-2024 Specific gravity (U) [Rel density] 1.005 1.001-1.03 0 [facility] Troponin I High Sensitivityo n 01-31-2024 Troponin I High Sensitivity 3.5 pg/mL Normal 0.0-15.0 [facility] Comment on above: Result Comment: PERF ORMED BY: [place] [address] PATHOLOGIST VINYL HANGER CARLOS HITCHCOCK M.D. Performed By: #### H S TROP, PTT, CMP, DDIMER, BNP, CK, PT, CBC #### [facility] [address] Troponin I.cardiac [Mass/vol ume] in Serum or Plasma by Detection limit <= 0.01 ng/Ordered By: Terry Dudley on 01-31-2024 Troponin I.cardiac DL <= 0.01 ng/mL [Mass/Vol] 3.5 pg/mL 0.0-15.0 [facility] Urea nitrogen [Mass/volume] in Serum or PlasmaOrdered By: Terry Dudley on 01-31-2024 Urea nitrogen [Mass/Vol] 10 mg/dL Normal 7-25 [facility] Comment on above: Performed By: #### H S TROP, PTT, CMP, DDIMER, BNP, CK, PT, CBC #### [facility] [address] Urinalysison 01-31-2024 Bilirubin,Urine Negative Normal Negative [facility] Comment on above: Order Comment: Name Collection Type:: Clean-Voided Midstream Performed By: #### U A, UHCG #### [address] Glucose Ql (U) Normal Normal Normal [facility] Comment on above: Order Comment: Name Collection Type:: Clean-Voided Midstream Performed By: #### U A, UHCG #### [place] [address] [place] Nitrite,Urine Negative Normal Negative [facility] Comment on above: Order Comment: Name Collection Type:: Clean-Voided Midstream Performed By: #### U A, UHCG #### [place] [id number] [place] Occult Blood,Urine Negative Normal Negative [facility] Comment on above: Order Comment: Name Collection Type:: Clean-Voided Midstream Performed By: #### U A, UHCG #### [place] [id number] [place] Protein,Urine Negative Normal Negative [facility] Comment on above: Order Comment: Name Collection Type:: Clean-Voided Midstream Performed By: #### U A, UHCG #### [address] Specificy [place],Urine 1.005 Normal 1.001-1.03 0 [facility] Comment on above: Order Comment: Name Collection Type:: Clean-Voided Midstream Performed By: #### U A, UHCG #### [address] Urobilinogen,Urine Normal Normal Normal [facility] Comment on above: Order Comment: Name Collection Type:: Clean-Voided Midstream Performed By: #### U A, UHCG #### [address] Urine appearanceOrdered By: Terry Dudley on 01-31-2024 Appearance (U) Clear Normal Clear [facility] Comment on above: Order Comment: Name Collection Type:: Clean-Voided Midstream Performed By: #### U A, CG #### [address] Urobilinogen Test strip (U) [Mass/Vol]Ordered By: Terry Dudley on 01-31-2024 Urobilinogen (U) [Mass/Vol] Normal mg/dL Normal [facility] pH of Urine by Test stripOrd ered By: Terry Dudley on 01-31-2024 pH (U) 6.5 [pH] Normal 5.0-9.0 [facility] Comment on above: Order Comment: Name Collection Type:: Clean-Voided Midstream Performed By: #### U A, CG #### [address] PAP ACOG PANEL 2: 23 to 31on 10-14-2021 . . Normal [facility] Comment on above: Performed By: #### P TT #### [facility] [address] [place] [address] Kaela Dimas Age Gdln ACOG Testing - Normal [facility] Comment on above: Performed By: #### P TT #### [facility] [address] [place] [address] Kaela Dimas DIAGNOSIS: Comment Normal [facility] Comment on above: Result Comment: NEGA TIVE FOR INTRAEPITHELIAL LESION OR MALIGNANCY. CELLULAR CHANGES ASSOCIATED WITH INFLAMMATION ARE PRESENT. Performed By: #### P TT #### [facility] [address] [place] [address] Kaela Dimas Methodology: Comment Normal [facility] Comment on above: Result Comment: This liquid based ThinPrep(R) pap test was screened with the use of an image guided system. Performed By: #### P TT #### [facility] [address] [place] [address] Kaela Dimas Note: Comment Normal [facility] Comment on above: Result Comment: The Pap smear is a screening test designed to aid in the detection of premalignant and malignant conditions of the uterine cervix. It is not a diagnostic procedure and should not be used as the sole means of detecting cervical cancer. Both false-positive and false-negative reports do occur. . Performed By: #### P TT #### [facility] [address] [place] [address] Kaela Dimas Performed by: Comment Normal [facility] Comment on above: Result Comment: Nancy Collins, Principal Technical Architect (ASCP) Performed By: #### P TT #### [facility] [address] [place] [address] Kaela Dimas Reflex Criteria: Comment Normal [facility] Comment on above: Result Comment: The HPV DNA reflex criteria were not met with this specimen result therefore, no HPV testing was performed. . Performed By: #### P TT #### [facility] [address] [place] [address] Kaela Dimas Specimen adequacy: Comment Normal [facility] Comment on above: Result Comment: Sati sfactory for evaluation. Endocervical and/or squamous metaplastic cells (endocervical component) are present. Performed By: #### P TT #### [facility] [address] [place] [address] Kaela Dimas CBC AUTO DIFFon 02-07-2021 BASO # 0.1 103/ul Normal 0.0-0.1 [facility] Comment on above: Performed By: #### C BC #### [facility] [address] [place] [id number] Kaela Judie Basophils/100 WBC (Bld) 0.3 % Normal 0.2-2.0 [facility] Comment on above: Performed By: #### C BC #### [facility] [address] [place] [address] Kaela Judie EO # 0.1 103/ul Normal 0.0-0.7 [facility] Comment on above: Performed By: #### C BC #### [facility] [address] [place], [place] [id number] Kaela Judie Eosinophils/100 WBC (Bld) 0.5 % Critically low 0.9-7.0 [facility] Comment on above: Performed By: #### C BC #### [facility] [address] [place] [address] Kaela Judie Erythrocyte distribution width (RBC) [Ratio] 12.3 % Normal 11.0-15.0 [facility] Comment on above: Performed By: #### C BC #### [facility] [address] [place] [address] Kaela Judie Hematocrit (Bld) [Volume fraction] 33.8 % Critically low 36.0-48.0 [facility] Comment on above: Performed By: #### C BC #### [facility] [address] [place], [place] [id number] Kaela Judie Hemoglobin (Bld) [Mass/Vol] 11.6 g/dL Critically low 12.0-16.0 [facility] Comment on above: Performed By: #### C BC #### [facility] [address] [place] [address] Kaela Judie IG # 0.20 10e3/ul Critically high 0.00-0.03 [facility] Comment on above: Performed By: #### C BC #### [facility] [address] [place], [place] [id number] Kaela Judie IG % 1.2 % Critically high 0.0-0.5 [facility] Comment on above: Performed By: #### C BC #### [facility] [address] [place], [place] [id number] Kaela Judie LYMPH # 1.6 103/ul Normal 1.2-3.8 [facility] Comment on above: Performed By: #### C BC #### [facility] [address] [place], [place] [id number] Kaela Judie Lymphocytes/100 WBC (Bld) 9.2 % Critically low 20.5-60.0 [facility] Comment on above: Performed By: #### C BC #### [facility] [address] [place], [place] [id number] Kaela Judie MANUAL DIFF REQ NO Normal [facility] Comment on above: Performed By: #### C BC #### [facility] [address] [place], [place] [id number] Kaela Judie MCH (RBC) [Entitic mass] 30.8 pg Normal 26.7-34.0 [facility] Comment on above: Performed By: #### C BC #### [facility] [address] [place] [address] Kaela Judie MCHC (RBC) [Mass/Vol] 34.3 g/dL Normal 29.9-35.2 [facility] Comment on above: Performed By: #### C BC #### [facility] [address] [place], [place] [id number] Kaela Judie MCV (RBC) [Entitic vol] 89.7 fL Normal 81.0-99.0 [facility] Comment on above: Performed By: #### C BC #### [facility] [address] [place] [address] Kaela Judie MONO # 0.9 103/ul Critically high 0.3-0.8 [facility] Comment on above: Performed By: #### C BC #### [facility] [address] [place], [place] [id number] Kaela Judie Monocytes/100 WBC (Bld) 5.5 % Normal 1.7-12.0 [facility] Comment on above: Performed By: #### C BC #### [facility] [address] [place], [place] [id number] Kaela Judie NEUT # 14.1 103/ul Critically high 1.4-6.5 [facility] Comment on above: Performed By: #### C BC #### [facility] [address] [place] [address] Kaela Dimas Neutrophils/100 WBC (Bld) 83.3 % Critically high 43.0-75.0 [facility] Comment on above: Performed By: #### C BC #### [facility] [address] [place] [address] Kaela Dimas Platelet mean volume (Bld) [Entitic vol] 11.0 fL Normal 9.5-13.5 [facility] Comment on above: Performed By: #### C BC #### [facility] [address] [place] [address] Kaela Dimas PLT 192 103/ul Normal 150-450 [facility] Comment on above: Performed By: #### C BC #### [facility] [address] [place] [address] Kaela Dimas RBC 3.77 106/ul Critically low 4.20-5.40 [facility] Comment on above: Performed By: #### C BC #### [facility] [address] [place] [address] Kaela Dimas WBC 16.9 103/ul Critically high 4.0-11.0 [facility] Comment on above: Performed By: #### C BC #### [facility] [address] [place] [address] Kaela Dimas ASYMPTOMATIC COVID-19 ANTIGE Non 02-05-2021 EUA Statement SEE BELOW Normal [facility] Comment on above: Result Comment: [...] sooner. Performed By: #### G TT3P #### [facility] [address] [place] [address] Kaela Dimas SARS-CoV-2 (COVID-19) RNA RIGOBERTO+probe Ql (Unsp spec) Negative Normal NEGATIVE [facility] Comment on above: Result Comment: Nega tive results are presumptive. They do not preclude infection and should not be used as the sole basis for treatment decisions. Additional confirmatory testing by a molecular method should be considered. Performed By: #### G TT3P #### [facility] [address] [place] [address] Kaela Judie CBC AUTO DIFFon 02-05-2021 BASO # 0.1 103/ul Normal 0.0-0.1 [facility] Comment on above: Performed By: #### C BC #### [facility] [address] [place] [address] Kaela Judie Basophils/100 WBC (Bld) 0.3 % Normal 0.2-2.0 [facility] Comment on above: Performed By: #### C BC #### [facility] [address] [place] [address] Kaela Judie EO # 0.1 103/ul Normal 0.0-0.7 [facility] Comment on above: Performed By: #### C BC #### [facility] [address] [place] [address] Kaela Judie Eosinophils/100 WBC (Bld) 0.3 % Critically low 0.9-7.0 [facility] Comment on above: Performed By: #### C BC #### [facility] [address] [place] [address] Kaela Judie Erythrocyte distribution width (RBC) [Ratio] 12.0 % Normal 11.0-15.0 [facility] Comment on above: Performed By: #### C BC #### [facility] [address] [place] [address] Kaela Dimas Hematocrit (Bld) [Volume fraction] 36.9 % Normal 36.0-48.0 [facility] Comment on above: Performed By: #### C BC #### [facility] [address] [place] [address] Kaela Dimas Hemoglobin (Bld) [Mass/Vol] 12.7 g/dL Normal 12.0-16.0 [facility] Comment on above: Performed By: #### C BC #### [facility] [address] [place] [address] Kaelastephanie Dimas IG # 0.19 10e3/ul Critically high 0.00-0.03 [facility] Comment on above: Performed By: #### C BC #### [facility] [address] [place] [address] Kaela Dimas IG % 1.0 % Critically high 0.0-0.5 [facility] Comment on above: Performed By: #### C BC #### [facility] [address] [place] [address] Kaela Dimas LYMPH # 1.4 103/ul Normal 1.2-3.8 [facility] Comment on above: Performed By: #### C BC #### [facility] [address] [place] [address] Kaela Dimas Lymphocytes/100 WBC (Bld) 7.6 % Critically low 20.5-60.0 [facility] Comment on above: Performed By: #### C BC #### [facility] [address] [place] [address] Kaela Dimas MANUAL DIFF REQ NO Normal [facility] Comment on above: Performed By: #### C BC #### [facility] [address] [place], [place] [id number] Kaela Dimas MCH (RBC) [Entitic mass] 30.5 pg Normal 26.7-34.0 [facility] Comment on above: Performed By: #### C BC #### [facility] [address] [place] [address] Kaela Dimas MCHC (RBC) [Mass/Vol] 34.4 g/dL Normal 29.9-35.2 [facility] Comment on above: Performed By: #### C BC #### [facility] [address] [place], [place] [id number] Kaela Dimas MCV (RBC) [Entitic vol] 88.5 fL Normal 81.0-99.0 [facility] Comment on above: Performed By: #### C BC #### [facility] [address] [place], [place] [id number] Kaela Dimas MONO # 1.0 103/ul Critically high 0.3-0.8 [facility] Comment on above: Performed By: #### C BC #### [facility] [address] [place], [place] [id number] Kaela Dimas Monocytes/100 WBC (Bld) 5.5 % Normal 1.7-12.0 [facility] Comment on above: Performed By: #### C BC #### [facility] [address] [place], [place] [id number] Kaela Dimas NEUT # 15.7 103/ul Critically high 1.4-6.5 [facility] Comment on above: Performed By: #### C BC #### [facility] [address] [place], [place] [id number] Kaela Dimas Neutrophils/100 WBC (Bld) 85.3 % Critically high 43.0-75.0 [facility] Comment on above: Performed By: #### C BC #### [facility] [address] [place], [place] [id number] Kaela Dimas Platelet mean volume (Bld) [Entitic vol] 11.8 fL Normal 9.5-13.5 [facility] Comment on above: Performed By: #### C BC #### [facility] [address] [place], [place] [id number] Kaelastephanie Sahuen PLT 226 103/ul Normal 150-450 [facility] Comment on above: Performed By: #### C BC #### [facility] [address] [place], [place] [id number] Kaela Judie RBC 4.17 106/ul Critically low 4.20-5.40 [facility] Comment on above: Performed By: #### C BC #### [facility] [address] [address] Kaelastephanie Dimas WBC 18.5 103/ul Critically high 4.0-11.0 [facility] Comment on above: Performed By: #### C BC #### [facility] [address] [address] Kaelastephanie Dimas DRUG SCREEN RAPID (URINE)on 02-05-2021 AMP Negative Normal NEGATIVE [facility] Comment on above: Performed By: #### D RUGRPD #### [facility] [address] [place] [address] Kaela Judie BAR Negative Normal NEGATIVE [facility] Comment on above: Performed By: #### D RUGRPD #### [facility] [address] [place] [address] Kaela Judie BUP Negative Normal NEGATIVE [facility] Comment on above: Performed By: #### D RUGRPD #### [facility] [address] [place] [address] Kaela Judie BZO Negative Normal NEGATIVE [facility] Comment on above: Performed By: #### D RUGRPD #### [facility] [address] [place] [address] Kaela Judie JERRY Negative Normal NEGATIVE [facility] Comment on above: Performed By: #### D RUGRPD #### [facility] [address] [place] [address] Kaela Judie CUT-OFFS SEE BELOW Normal [facility] Comment on above: Result Comment: [...] ng/mL Performed By: #### D RUGRPD #### [facility] [address] [address] Kaela Judie DRUG CUT HEADER DRUG CLASS TEST SYST EM CUT-OFF CONCENTRATIONS ARE FOLLOWS: Normal [facility] Comment on above: Performed By: #### D RUGRPD #### [facility] [address] [place] [address] Kaela Judie mAMP Negative Normal NEGATIVE [facility] Comment on above: Performed By: #### D RUGRPD #### [facility] [address] [place] [address] Kaela Judie MTD Negative Normal NEGATIVE [facility] Comment on above: Performed By: #### D RUGRPD #### [facility] [address] [place] [address] Kaela Judie OPI Negative Normal NEGATIVE [facility] Comment on above: Performed By: #### D RUGRPD #### [facility] [address] [place] [address] Kaela Judie OXY Negative Normal NEGATIVE [facility] Comment on above: Performed By: #### D RUGRPD #### [facility] [address] [place] [address] Kaela Judie PCP Negative Normal NEGATIVE [facility] Comment on above: Performed By: #### D RUGRPD #### [facility] [address] [place] [address] Kaela Judie PPX Negative Normal NEGATIVE [facility] Comment on above: Performed By: #### D RUGRPD #### [facility] [address] [place] [address] Kaela Judie TCA Negative Normal NEGATIVE [facility] Comment on above: Performed By: #### D RUGRPD #### [facility] [address] [place] [address] Kaela Judie THC Negative Normal NEGATIVE [facility] Comment on above: Performed By: #### D RUGRPD #### [facility] [address] [place] [address] Kaela Judie TYPE AND SCREENon 02-05-2021 TYPE AND SCREEN Negative Normal [facility] Comment on above: Performed By: #### P TT #### [facility] [address] [place] [address] Kaela Dimas GROUP B STREP CULTUREon S. agalactiae Ag Ql (Unsp spec) Culture Observations: NEGATIVE FOR GROUP B STREPTOCOCCUS. Normal [facility] Comment on above: Performed By: #### P TT #### [facility] [address] [place] [address] Kaela Dimas US PREG BIOPHY W NON [...] by: MICHELLE LANE Date: 2021-01-30 08:23 Normal [facility] US PREG GROWTHon 01-30-2021 US [...] MICHELLE LANE Date: 2021-01-30 08:25 Normal [facility] US PREG BIOPHY W NON [...] MICHELLE LANE Date: 2021-01-23 07:22 Normal [facility] US PREG BIOPHY W NON [...] MICHELLE LANE Date: 2021-01-16 07:31 Normal [facility] PROTEIN 24HR URINEon 021 T PROT, 24 HR UR 603.9 mg/24 hr Critically high 42.0-225.0 [facility] Comment on above: Performed By: #### G TT3P #### [facility] [address] [id number] Kaela Judie UR PROT 12.2 mg/dL Critically high <=12.0 [facility] Comment on above: Performed By: #### G TT3P #### [facility] [address] [place] [address] Kaela Judie UR TOT VOL 4950 ml/24 HR Normal [facility] Comment on above: Performed By: #### G TT3P #### [facility] [address] [place], [place] [id number] Kaela Judie CBC AUTO DIFFon 01-13-2021 BASO # 0.0 103/ul Normal 0.0-0.1 [facility] Comment on above: Performed By: #### G TT3P #### [facility] [address] [place] [address] Kaela Judie Basophils/100 WBC (Bld) 0.2 % Normal 0.2-2.0 [facility] Comment on above: Performed By: #### G TT3P #### [facility] [address] [place] [address] Kaela Judie EO # 0.1 103/ul Normal 0.0-0.7 [facility] Comment on above: Performed By: #### G TT3P #### [facility] [address] [place] [address] Kaela Judie Eosinophils/100 WBC (Bld) 0.6 % Critically low 0.9-7.0 [facility] Comment on above: Performed By: #### G TT3P #### [facility] [address] [place] [address] Kaela Judie Erythrocyte distribution width (RBC) [Ratio] 11.7 % Normal 11.0-15.0 [facility] Comment on above: Performed By: #### G TT3P #### [facility] [address] [place], [place] [id number] Kaela Judie Hematocrit (Bld) [Volume fraction] 34.5 % Critically low 36.0-48.0 [facility] Comment on above: Performed By: #### G TT3P #### [facility] [address] [address] Kaela Judie Hemoglobin (Bld) [Mass/Vol] 12.1 g/dL Normal 12.0-16.0 [facility] Comment on above: Performed By: #### G TT3P #### [facility] [address] [place] [address] Kaela Judie IG # 0.20 10e3/ul Critically high 0.00-0.03 [facility] Comment on above: Performed By: #### G TT3P #### [facility] [address] [place] [address] Kaela Judie IG % 1.2 % Critically high 0.0-0.5 [facility] Comment on above: Performed By: #### G TT3P #### [facility] [address] [place] [address] Kaela Judie LYMPH # 1.5 103/ul Normal 1.2-3.8 [facility] Comment on above: Performed By: #### G TT3P #### [facility] [address] [place] [address] Kaela Judie Lymphocytes/100 WBC (Bld) 8.6 % Critically low 20.5-60.0 [facility] Comment on above: Performed By: #### G TT3P #### [facility] [address] [place] [address] Kaelastephanie Dimas MANUAL DIFF REQ NO Normal [facility] Comment on above: Performed By: #### G TT3P #### [facility] [address] [place] [address] Kaelastephanie Sahuen MCH (RBC) [Entitic mass] 30.6 pg Normal 26.7-34.0 [facility] Comment on above: Performed By: #### G TT3P #### [facility] [address] [place] [address] Kaela Judie MCHC (RBC) [Mass/Vol] 35.1 g/dL Normal 29.9-35.2 [facility] Comment on above: Performed By: #### G TT3P #### [facility] [address] [place] [address] Kaela Dimas MCV (RBC) [Entitic vol] 87.3 fL Normal 81.0-99.0 [facility] Comment on above: Performed By: #### G TT3P #### [facility] [address] [place] [address] Kaela Dimas MONO # 1.2 103/ul Critically high 0.3-0.8 [facility] Comment on above: Performed By: #### G TT3P #### [facility] [address] [place] [address] Kaela Dimas Monocytes/100 WBC (Bld) 6.6 % Normal 1.7-12.0 [facility] Comment on above: Performed By: #### G TT3P #### [facility] [address] [place] [address] Kaela Dimas NEUT # 14.4 103/ul Critically high 1.4-6.5 [facility] Comment on above: Performed By: #### G TT3P #### [facility] [address] [place] [address] Kaela Dimas Neutrophils/100 WBC (Bld) 82.8 % Critically high 43.0-75.0 [facility] Comment on above: Performed By: #### G TT3P #### [facility] [address] [place] [address] Kaela Dimas Platelet mean volume (Bld) [Entitic vol] 12.1 fL Normal 9.5-13.5 [facility] Comment on above: Performed By: #### G TT3P #### [facility] [address] [place] [address] Kaelastephanie Sahuen PLT 216 103/ul Normal 150-450 [facility] Comment on above: Performed By: #### G TT3P #### [facility] [address] [place] [address] Kaela Judei RBC 3.95 106/ul Critically low 4.20-5.40 [facility] Comment on above: Performed By: #### G TT3P #### [facility] [address] [place] [address] Kaela Judie WBC 17.4 103/ul Critically high 4.0-11.0 [facility] Comment on above: Performed By: #### G TT3P #### [facility] [address] [place], [place] [id number] Kaela Judie CULTURE URINEon 01-13-2021 CULTURE URINE Culture Observations : LIGHT GROWTH OF MIXED GENITAL TINO. NO POTENTIAL PATHOGENS SEEN. Normal [facility] Comment on above: Performed By: #### P TT #### [facility] [address] [place], [place] [id number] Kaela Judie LDHon 01-13-2021 LDH 194 U/L Normal 122-222 [facility] Comment on above: Performed By: #### U ELIZABETH, LDH #### [facility] [address] [place], [place] [id number] Kaelastephanie Sahuen PROF 14(COMP METB)on 021 Albumin [Mass/Vol] 2.7 g/dL Critically low 3.5-5.0 [facility] Comment on above: Performed By: #### G TT3P #### [facility] [address] [place], [place] [id number] Kaela Judie Albumin/Globulin [Mass ratio] 0.9 {ratio} Normal [facility] Comment on above: Performed By: #### G TT3P #### [facility] [address] [place], [place] [id number] Kaela Judie ALP [Catalytic activity/Vol] 134 U/L Critically high 38-126 [facility] Comment on above: Performed By: #### G TT3P #### [facility] [address] [place], [place] [id number] Kaela Judie ALT [Catalytic activity/Vol] 21 U/L Normal 9-52 [facility] Comment on above: Performed By: #### G TT3P #### [facility] [address] [place], [place] [id number] Kaela Judie Anion gap [Moles/Vol] 11.6 mmol/L Normal [facility] Comment on above: Performed By: #### G TT3P #### [facility] [address] [place], [place] [id number] Kaela Judie AST [Catalytic activity/Vol] 17 U/L Normal 14-36 [facility] Comment on above: Performed By: #### G TT3P #### [facility] [address] [place] [address] Kaela Judie Bilirubin [Mass/Vol] 0.2 mg/dL Normal 0.2-1.3 [facility] Comment on above: Performed By: #### G TT3P #### [facility] [address] [place] [address] Kaela Judie Calcium [Mass/Vol] 9.1 mg/dL Normal 8.4-10.2 [facility] Comment on above: Performed By: #### G TT3P #### [facility] [address] [place] [address] Kaela Judie Chloride [Moles/Vol] 106 mmol/L Normal 98-107 [facility] Comment on above: Performed By: #### G TT3P #### [facility] [address] [place] [address] Kaela Judie CO2 [Moles/Vol] 25.8 mmol/L Normal 22.0-30.0 [facility] Comment on above: Performed By: #### G TT3P #### [facility] [address] [place] [address] Kaela Judie Creatinine [Mass/Vol] 0.53 mg/dL Normal 0.52-1.04 [facility] Comment on above: Performed By: #### G TT3P #### [facility] [address] [place] [address] Kaela Judie EGFR-AF SCOTTISH >60 Normal >=60 [facility] Comment on above: Performed By: #### G TT3P #### [facility] [address] [place] [address] Kaela Judie EGFR-NON AF SCOTTISH >60 Normal >=60 [facility] Comment on above: Performed By: #### G TT3P #### [facility] [address] [place] [address] Kaela Judie Globulin (S) [Mass/Vol] 3.0 g/dL Normal [facility] Comment on above: Performed By: #### G TT3P #### [facility] [address] [place], [place] [address] Kaela Judie Glucose [Mass/Vol] 85 mg/dL Normal 74-106 [facility] Comment on above: Performed By: #### G TT3P #### [facility] [address] [place], [place] [address] Kaela Judie Potassium [Moles/Vol] 3.4 mmol/L Normal 3.4-5.0 [facility] Comment on above: Performed By: #### G TT3P #### [facility] [address] [address] Kaela Judie Protein [Mass/Vol] 5.7 g/dL Critically low 6.1-8.2 [facility] Comment on above: Performed By: #### G TT3P #### [facility] [address] [place] [address] Kaela Judie Sodium [Moles/Vol] 140 mmol/L Normal 137-145 [facility] Comment on above: Performed By: #### G TT3P #### [facility] [address] [place] [address] Kaela Judie Urea nitrogen [Mass/Vol] 10.0 mg/dL Normal 7.0-17.0 [facility] Comment on above: Performed By: #### G TT3P #### [facility] [address] [place], [place] [id number] Kaela Judie Urea nitrogen/Creatinine [Mass ratio] 18.9 mg/mg Normal [facility] Comment on above: Performed By: #### G TT3P #### [facility] [address] [place] [id number] Kaela Judie PTTon 01-13-2021 aPTT Coag (Bld) [Time] 23.6 s Normal 22.3-36.2 [facility] Comment on above: Performed By: #### P TT #### [facility] [address] [place], [place] [id number] Kaela Judie URIC ACID SERUMon 01-13-2021 Urate [Mass/Vol] 3.7 mg/dL Normal 2.5-6.2 [facility] Comment on above: Performed By: #### U ELIZABETH, LDH #### [facility] [address] [place] [address] Kaela Judie UA (CLEAN/CATCH) DIRECTOR OF SPECIAL EDUCATION/MICRO I F IND.on 01-12-2021 Bilirubin Ql (U) Negative Normal NEGATIVE [facility] Comment on above: Performed By: #### U MICRO, UACSIND #### [facility] [address] [place] [address] Kaela Judie Clarity (U) CLEAR Normal CLEAR [facility] Comment on above: Performed By: #### U MICRO, UACSIND #### [facility] [address] [place] [address] Kaela Judie Color (U) LT. YELLOW Normal YELLOW [facility] Comment on above: Performed By: #### U MICRO, UACSIND #### [facility] [address] [place] [address] Kaela Judie Glucose Ql (U) Negative Normal NEGATIVE [facility] Comment on above: Performed By: #### U MICRO, UACSIND #### [facility] [address] [place] [address] Kaela Judie Hemoglobin Ql (U) Negative Normal NEGATIVE [facility] Comment on above: Performed By: #### U MICRO, UACSIND #### [facility] [address] [place] [address] Kaela Judie Ketones Ql (U) Negative Normal NEGATIVE [facility] Comment on above: Performed By: #### U MICRO, UACSIND #### [facility] [address] [place] [address] Kaela Judie LEUKOCYTES TRACE Abnormal NEGATIVE [facility] Comment on above: Performed By: #### U MICRO, UACSIND #### [facility] [address] [place] [address] Kaela Judie Nitrite Ql (U) Negative Normal NEGATIVE [facility] Comment on above: Performed By: #### U MICRO, UACSIND #### [facility] [address] [place] [address] Akela Judie pH (U) 6.0 [pH] Normal 5-9 [facility] Comment on above: Performed By: #### U MICRO, UACSIND #### [facility] [address] [place] [address] Kaela Dimas SPEC GRAVITY 1.025 Normal 1.005-<=1. 025 [facility] Comment on above: Performed By: #### U MICRO, UACSIND #### [facility] [address] [place] [address] Kaelastephanie Dimas UA PROTEIN Negative Normal NEGATIVE/ TRACE [facility] Comment on above: Performed By: #### U MICRO, UACSIND #### [facility] [address] [place] [address] Kaela Dimas UR MICRO IND INDICATED Normal [facility] Comment on above: Performed By: #### U MICRO, UACSIND #### [facility] [address] [place] [address] Kaela Dimas Urobilinogen Qn (U) 0.2 {Sylvester'U}/dL Normal 0.2 - 1. 0 [facility] Comment on above: Performed By: #### U MICRO, UACSIND #### [facility] [address] [place] [address] Kaela Dimas URINE MICROSCOPIC ONLYon BACTERIA TRACE Abnormal NONE SEEN [facility] Comment on above: Performed By: #### U MICRO, UACSIND #### [facility] [address] [place] [address] Kaela Dimas Bacteria identified Cx Nom (U) INDICATED Normal [facility] Comment on above: Performed By: #### U MICRO, UACSIND #### [facility] [address] [place] [address] Kaela Judie CAST NONE SEEN Normal NONE SEEN [facility] Comment on above: Performed By: #### U MICRO, UACSIND #### [facility] [address] [place] [address] Kaela Dimas Crystals LM Nom (Urine sed) NONE SEEN Normal NONE SEEN [facility] Comment on above: Performed By: #### U MICRO, UACSIND #### [facility] [address] [place] [address] Kaelastephanie Dimas Epithelial cells LM Ql (Urine sed) FEW Abnormal NONE SEEN /RARE [facility] Comment on above: Performed By: #### U MICRO, UACSIND #### [facility] [address] [place] [address] Kaela Judie MUCOUS SMALL Abnormal NONE SEEN [facility] Comment on above: Performed By: #### U MICRO, UACSIND #### [facility] [address] [place] [address] Kaela Judie RBC 0-2 Normal 0-2 [facility] Comment on above: Performed By: #### U MICRO, UACSIND #### [facility] [address] [place] [address] Kaela Judie WBC 2-5 Abnormal NONE SEEN [facility] Comment on above: Performed By: #### U MICRO, UACSIND #### [facility] [address] [place] [address] Kaela Judie US PREG BIOPHY W NON [...] IRINEO COMBS Date: 2021-01-09 07:18 Normal [facility] US PREG GROWTHon 12-31-2020 US [...] cm; 32 weeks 2 days; % EFW: 4.996467, 39% FL/AC: 0.662479 FL/BPD: 0.131415 HC/AC: 1.778310 GESTATIONAL AGE: Age by EDC: 32 weeks 1 day SUSANNA by EDC: 02/24/2021 Age by US: 32 weeks 0 days SUSANNA by US: 02/25/2021 IMPRESSION: Normal interval growth Electronically authenticated by: IRINEO COMBS Date: 2020-12-31 09:38 Normal [facility] GTT 3 HR PREGon 12-12-2020 Glucose [Mass/Vol] 86 mg/dL Normal 74-106 [facility] Comment on above: Performed By: #### G TT3P #### [facility] [address] [place] [address] Kaela Judie Glucose [Mass/Vol] 179 mg/dL Normal [facility] Comment on above: Performed By: #### G TT3P #### [facility] [address] [place] [address] Kaela Judie Glucose [Mass/Vol] 131 mg/dL Normal [facility] Comment on above: Performed By: #### G TT3P #### [facility] [address] [place] [address] Kaela Judie Glucose [Mass/Vol] 145 mg/dL Normal [facility] Comment on above: Performed By: #### G TT3P #### [facility] [address] [place] [address] Kaela Judie GLUCOSE - 1HRon 12-05-2020 Glucose [Mass/Vol] 151 mg/dL Critically high 74-106 T [facility] Comment on above: Result Comment: sherri ent was approximately 5 minutes late for draw Performed By: #### G LU1HR #### [facility] [address] [place] [address] Kaela Judie HEMOGRAM AND PLATELon 2020 Hematocrit (Bld) [Volume fraction] 38.4 % Normal 36.0-48.0 [facility] Comment on above: Performed By: #### G TT3P #### [facility] [address] [place], [place] [id number] Kaela Dimas Hemoglobin (Bld) [Mass/Vol] 13.2 g/dL Normal 12.0-16.0 [facility] Comment on above: Performed By: #### G TT3P #### [facility] [address] [place] [address] Kaela Dimas MCH (RBC) [Entitic mass] 30.8 pg Normal 26.7-34.0 [facility] Comment on above: Performed By: #### G TT3P #### [facility] [address] [place] [address] Kaela Dimas MCHC (RBC) [Mass/Vol] 34.4 g/dL Normal 29.9-35.2 [facility] Comment on above: Performed By: #### G TT3P #### [facility] [address] [place] [address] Kaela Dimas MCV (RBC) [Entitic vol] 89.5 fL Normal 81.0-99.0 [facility] Comment on above: Performed By: #### G TT3P #### [facility] [address] [place], [place] [id number] Kaelastephanie Dimas PLT 238 103/ul Normal 150-450 [facility] Comment on above: Performed By: #### G TT3P #### [facility] [address] [place] [address] Kaelastephanie Dimas RBC 4.29 106/ul Normal 4.20-5.40 [facility] Comment on above: Performed By: #### G TT3P #### [facility] [address] [place], [place] [id number] Kaelastephanie Dimas WBC 17.0 103/ul Critically high 4.0-11.0 [facility] Comment on above: Performed By: #### G TT3P #### [facility] [address] [place], [place] [id number] Kaelastephanie Dimas US PREG GROWTHon 12-03-2020 US PREG [...] cm; 28 weeks 0 days; % EFW: 2.082701, 2 lbs. 10 oz., 40% FL/AC: 0.986915 FL/BPD: 0.220061 HC/AC: 1.967235 GESTATIONAL AGE: Age by EDC: 28 weeks 1 day SUSANNA by EDC: 02/24/2021 Age by US: 20 weeks 2 days SUSANNA by US: 02/23/2021 IMPRESSION: Normal interval growth Electronically authenticated by: IRINEO COMBS Date: 2020-12-03 10:04 Normal [facility] Vital Signs Date Time Vital Sign Value Performing Clinician Facility 08-22-2024 15:09-0500 Body mass index (BMI) [Ratio] 41.45 kg/m2 [place] Work Phone: [facility] 08-22-2024 15:09-0500 Body weight 106.14 kg [place] Work Phone: [facility] 08-22-2024 15:09-0500 Diastolic blood pressure 80 mm[Hg] [place] Work Phone: [facility] 08-22-2024 15:09-0500 Systolic blood pressure 132 mm[Hg] [place] Work Phone: [facility] 08-14-2024 16:26-0500 Body mass index (BMI) [Ratio] 41.65 kg/m2 [place] Work Phone: [facility] 08-14-2024 16:26-0500 Body weight 106.65 kg Scotty Jacquie DO Work Phone: [facility] 08-14-2024 16:26-0500 Diastolic blood pressure 80 mm[Hg] Scotty Jacquie DO Work Phone: [facility] 08-14-2024 16:26-0500 Systolic blood pressure 130 mm[Hg] Scotty Jacquie DO Work Phone: [facility] 07-31-2024 15:22-0500 Body mass index (BMI) [Ratio] 41.81 kg/m2 Madisyn KERNS Work Phone: [facility] 07-31-2024 15:22-0500 Body weight 107.05 kg Madisyn KERNS Work Phone: [facility] 07-31-2024 15:22-0500 Diastolic blood pressure 72 mm[Hg] Madisyn KERNS Work Phone: [facility] 07-31-2024 15:22-0500 Systolic blood pressure 122 mm[Hg] Madisyn KERNS Work Phone: [facility] 07-17-2024 16:19-0500 Body mass index (BMI) [Ratio] 41.81 kg/m2 Scotty Jacquie DO Work Phone: [facility] 07-17-2024 16:19-0500 Body weight 107.05 kg Scotty Jacquie DO Work Phone: [facility] 07-17-2024 16:19-0500 Diastolic blood pressure 72 mm[Hg] Scotty Jaqcuie DO Work Phone: [facility] 07-17-2024 16:19-0500 Systolic blood pressure 122 mm[Hg] Scotty Jacquie DO Work Phone: [facility] 07-14-2024 11:13-0500 Body height 160 cm Aniceto Fox MD Work Phone: [facility] 07-14-2024 11:13-0500 Body mass index (BMI) [Ratio] 40.74 kg/m2 Aniceto Fox MD Work Phone: [facility] 07-14-2024 11:13-0500 Body weight 104.33 kg Aniceto Fox MD Work Phone: [facility] 07-14-2024 11:13-0500 Diastolic blood pressure 84 mm[Hg] Aniceto Fox MD Work Phone: [facility] 07-14-2024 11:13-0500 Heart rate 104 /min Aniceto Fox MD Work Phone: [facility] 07-14-2024 11:13-0500 Systolic blood pressure 144 mm[Hg] Aniceto Fox MD Work Phone: [facility] 06-15-2024 15:34-0500 Body mass index (BMI) [Ratio] 40.6 kg/m2 Madisyn KERNS Work Phone: [facility] 06-15-2024 15:34-0500 Body weight 103.96 kg Madisyn KERNS Work Phone: [facility] 06-15-2024 15:34-0500 Diastolic blood pressure 76 mm[Hg] Madisyn KERNS Work Phone: [facility] 06-15-2024 15:34-0500 Systolic blood pressure 122 mm[Hg] Madisyn KERNS Work Phone: [facility] 05-18-2024 12:07-0400 Body mass index (BMI) [Ratio] 39.5 kg/m2 Scotty Jacquie DO Work Phone: [facility] 05-18-2024 12:07-0400 Body weight 101.15 kg Scotty Jacquie DO Work Phone: [facility] 05-18-2024 12:07-0400 Diastolic blood pressure 78 mm[Hg] Scotty Jacquie DO Work Phone: [facility] 05-18-2024 12:07-0400 Systolic blood pressure 124 mm[Hg] Scotty Jacquie DO Work Phone: [facility] 04-20-2024 08:46-0400 Body mass index (BMI) [Ratio] 39.41 kg/m2 Madisyn Gaona PA Work Phone: [facility] 04-20-2024 08:46-0400 Body weight 100.92 kg Madisyn Gaona PA Work Phone: [facility] 04-20-2024 08:46-0400 Diastolic blood pressure 82 mm[Hg] Madisyn Gaona PA Work Phone: [facility] 04-20-2024 08:46-0400 Systolic blood pressure 122 mm[Hg] Madisyn Gaona PA Work Phone: [facility] 03-22-2024 11:34-0400 Body mass index (BMI) [Ratio] 39.5 kg/m2 Scotty Jacquie DO Work Phone: [facility] 03-22-2024 11:34-0400 Body weight 101.15 kg Scotty Jacquie DO Work Phone: [facility] 03-22-2024 11:34-0400 Diastolic blood pressure 74 mm[Hg] Scotty Jacquie DO Work Phone: [facility] 03-22-2024 11:34-0400 Systolic blood pressure 122 mm[Hg] Scotty Jacquie DO Work Phone: [facility] 01-31-2024 18:14-0400 Diastolic blood pressure 74 mm[Hg] MD Jacques Mccarthy Work Phone: [facility] 01-31-2024 18:14-0400 Heart rate 100 /min MD Jacques Mccarthy Work Phone: [facility] 01-31-2024 18:14-0400 Respiratory rate 18 /min MD Jacques Mccarthy Work Phone: [facility] 01-31-2024 18:14-0400 SaO2% (BldA) [Mass fraction] 100 % MD Jacques Mccarthy Work Phone: [facility] 01-31-2024 18:14-0400 Systolic blood pressure 156 mm[Hg] MD Jacques Mccarthy Work Phone: [facility] 01-31-2024 14:04-040 Body height 160.02 cm MD Jacques Mccarthy Work Phone: [facility] 01-31-2024 14:04-0400 Body temperature 97.4 [degF] MD Jacques Mccarthy Work Phone: [facility] 01-31-2024 14:04040 Body weight 98.5 kg MD Jacques Mccarthy Work Phone: [facility] Encounters Encounter Date Encounter Type Care Provider Facility Start: 08-22-2024 End: 08-22-2024 ambulatory SCOTTY JACQUIE Not Available Start: 08-22-2024 End: 08-22-2024 flow sheet Scotty Jacquie DO Work Phone: [facility] Comment on above: Third trimester preg red; 34 weeks gestation of ; Insulin controlled gestational diabetes mellitus (GDM) during , antepartum Start: 08-22-2024 End: 08-22-2024 Bamboo flowsheet Scotty Jacquie DO Work Phone: [facility] Start: 08-22-2024 End: 08-22-2024 Bamboo flowsheet Scotty Jacquie DO Work Phone: [facility] Start: 08-16-2024 End: 08-16-2024 Documentation procedure Judie Stearns [facility] Start: 08-15-2024 End: 08-15-2024 Office outpatient visit 25 minutes Nubia Lundberg MD Work Phone: [facility] Comment on above: 32 weeks gestation o f (Primary Dx); Gestational diabetes mellitus (GDM) in third trimester, gestational diabetes method of control unspecified; Chronic hypertension affecting ; BMI 40.0-44.9, adult ([facility]); arrhythmia affecting , antepartum; Polyhydramnios affecting ; Separation of chorion and amnion membranes, antepartum Start: 08-15-2024 End: 08-15-2024 Orders Only Judiechristal Stearns [facility] Comment on above: Abnormal ultrasonic finding on [...] Aniceto Fox MD Work Phone: [facility] Comment on above: Gestational diabetes mellitus (GDM), antepartum, gestational diabetes method of control unspecified (Primary Dx); Chronic hypertension affecting Start: 07-14-2024 End: 07-14-[address] [facility] Start: 07-13-2024 End: 07-13-2024 Clinisync Result Encounter Madisyn KERNS Work Phone: [facility] Unsolicited Start: 07-13-2024 End: 07-13-2024 Clinisync Result Encounter Madisyn KERNS Work Phone: [facility] Unsolicited Start: 06-21-2024 End: 06-21-2024 Chart abstracting Aniceto Fox MD Work Phone: [facility] Start: 06-15-2024 End: 06-15-2024 flow [...] OB Start: 04-20-2024 End: 04-20-2024 Bamboo flowsheet Mdaisyn KERNS Work Phone: [facility] Start: 04-20-2024 End: 04-20-2024 Office outpatient visit 15 minutes Madisyn KERNS Work Phone: [facility] Comment on above: Screening, , for anatomic survey; Well woman exam with routine gynecological exam; Screen for STD (sexually transmitted disease); Vaginal discharge; Second trimester Start: 04-20-2024 End: 04-20-2024 Patient encounter procedure Madisyn KERNS Work Phone: [facility] Start: 04-20-2024 End: 04-20-2024 ambulatory MADISYN GAONA Not Available Start: 03-22-2024 End: 03-22-2024 Bamboo flowsheet Scotty Jacquie DO Work Phone: [facility] Start: 03-22-2024 End: 03-22-2024 Bamboo [...] patient visit MD Jacques Mccarthy Work Phone: [facility] Work Phone: Start: 10-08-2021 End: [...] Date Procedure Procedure Detail Performing Clinician Start: 08-22-2024 Urnls dip stick/tabl et rgnt non-auto w/o micrscp Scotty Jacquie DO Work Phone: Start: 08-14-2024 Urnls dip stick/tabl et rgnt non-auto w/o micrscp Scotty Jacquie DO Work Phone: Start: 08-07-2024 ALL CBC WITH AUTO DIFF Scotty Jacquie DO Work Phone: Start: 08-05-2024 ALL CBC WITH AUTO DIFF Scotty Jacquie DO Work Phone: Start: 08-04-2024 [facility] UA (CLEAN/CATCH) DIRECTOR OF SPECIAL EDUCATION/MICRO IF IND. Scotty Dhillon DO Work Phone: [...] Author Start: 08-15-2025 Tobacco Screening Tobacco Screening [facility] Start: 07-14-2025 Adult BMI Screening Adult BMI Screen ing [facility] Start: 06-21-2025 Adult BMI Screening Adult BMI Screen ing [facility] Start: 08-30-2024 End: 08-30-2024 Patient encounter procedure 08/30/2024 10:30 AM EST Office Visit [facility] [address] [address] Eliud Wilson MD [address] [place] [address] [facility] Start: 08-29-2024 End: 08-29-2024 Patient encounter procedure 08/29/2024 2:20 PM EST Routine [facility] [address] [place] [phone] Scotty Dhillon, DO [address] [place] [address] [facility] Start: 08-22-2024 End: 08-22-2024 Patient encounter procedure 08/22/2024 2:30 PM EST Routine [facility] [address] [place] [phone] Scotty Dhillon, DO [address] [place] [address] [facility] Start: 08-14-2024 End: 08-14-2024 Patient encounter procedure 08/14/2024 3:30 PM EST Routine [facility] [address] [place] [phone] Scotty Dhillon, DO [address] [place] [address] [facility] Start: 07-31-2024 End: 07-31-2024 Patient encounter procedure [facility] Comment on above: Arrived Start: 07-17-2024 End: 07-17-2024 Patient encounter procedure 07/17/2024 3:20 PM EST Routine [facility] [address] [place] [phone] Scotty Dhillon, DO [address] [place] [address] [facility] Start: 07-17-2024 End: 07-17-2024 Professional / ancillary services management 07/17/2024 3:00 PM EST Ancillary Procedure [facility] [address] [place] [phone] [facility] Start: 07-17-2024 End: 07-17-2025 US biophysical profile w non stress test US biophysical profile w non stress test Imaging Routine Third trimester Gestational diabetes mellitus (GDM) in third trimester, gestational diabetes method of control unspecified Hypertension, unspecified type (CMS/HCC) Expected: 07/17/2024 (Approximate), Expires: 07/17/2025 [facility] Comment on above: Expected: 07/17/2024 (Approximate), Expires: 07/17/2025 Start: 07-17-2024 End: 07-17-2025 US for US OB SCAN FOR GROWTH Imaging Routine Third trimester Gestational diabetes mellitus (GDM) in third trimester, gestational diabetes method of control unspecified Hypertension, unspecified type (CMS/HCC) Expected: 07/17/2024 (Approximate), Expires: 07/17/2025 [facility] Work Phone: Comment on above: Expected: 07/17/2024 (Approximate), Expires: 07/17/2025 Start: 07-14-2024 End: 07-14-2024 Patient encounter procedure [facility] Start: 06-15-2024 End: 06-15-2024 Patient encounter procedure 06/15/2024 3:30 PM EST Routine [facility] [address] [facility] [facility] [place] [phone] Madisyn Gaona PA [address] [place] [address] [facility] Start: 06-15-2024 End: 06-15-2025 CBC panel - Blood by Automated count CBC Lab Routine Diabetes mellitus screening Expected: 06/15/2024 (Approximate), Expires: 06/15/2025 [facility] Work Phone: Comment on above: Expected: 06/15/2024 (Approximate), Expires: 06/15/2025 Start: 06-15-2024 End: 06-15-2025 Measurement of glucose 1 hour after glucose challenge for glucose tolerance test Glucose tolerance, 1 hour Lab Routine Diabetes mellitus screening Expected: 06/15/2024 (Approximate), Expires: 06/15/2025 [facility] Comment on above: Expected: 06/15/2024 (Approximate), Expires: 06/15/2025 Start: 05-18-2024 End: 05-18-2024 Patient encounter procedure 05/18/2024 11:40 AM EDT Office Visit [facility] [address] [facility] [place] [address] Scotty Dhillon, DO [address] [place] [address] [facility] Start: 05-18-2024 End: 05-18-2024 Professional / ancillary services management 05/18/2024 10:30 AM EDT Ancillary Procedure [facility] [address] [place] [place] [address] [facility] Start: 04-20-2024 End: 04-20-2025 Alpha fetoprotein, maternal Alpha fetoprotein, maternal Lab Routine Second trimester Expected: 04/20/2024 (Approximate), Expires: 04/20/2025 [facility] Work Phone: Comment on above: Expected: 04/20/2024 (Approximate), Expires: 04/20/2025 Start: 04-20-2024 End: 04-20-2025 US for US OB ANATOMY SINGLE W US OB CERVICAL LENGTH Imaging Routine Screening, , for anatomic survey Expected: 04/20/2024 (Approximate), Expires: 04/20/2025 [facility] Comment on above: Expected: 04/20/2024 (Approximate), Expires: 04/20/2025 Start: 04-20-2024 End: 04-20-2024 [facility] Comment on above: Arrived Start: 04-02-2024 Influenza vaccination Influenza Vacc ine [facility] Start: 03-22-2024 End: 03-22-2024 Patient encounter procedure 03/22/2024 11:20 AM EDT Routine [facility] [address] [place] [address] Scotty Dhillon, [address] [place] [address] Arrived [facility] Comment on above: Arrived Start: 2018 Screening for malign ant neoplasm of cervix Pap Smear [facility] Start: 2016 DTaP,Tdap and Td Vaccines (1 - Tdap) DTaP,Tdap and Td Vaccines (1 - Tdap) [facility] Start: 2015 Adult BMI Follow Up Plan Adult BMI Follow Up Plan [facility] Start: 2015 Adult BMI Screening Adult BMI Screen ing [facility] Start: 2009 Depression Screening Depression Scre ening [facility] Start: 2009 Tobacco Screening Tobacco Screening [facility] CBC W Auto Different ial panel - Blood CBC and differential Lab Routine Abnormal CBC Ordered: 03/22/2024 [facility] Work Phone: Comment on above: Ordered: 03/22/2024 Patient Education - Th e Second Month High Blood Pressure ED [facility] Work Phone: Patient referral [facility] Work Phone: Payers Date Payer Category Payer Medicaid [id number] 2024 Medicaid [id number] 2024 Self-pay 2023 Private Health Insurance [id number] 2023 Private Health Insurance [id number] 2022 Medicaid HMO [employer] [id number] 1997 Unknown [id number] 2.16.840.1.976348.3.579.2. 593 1997 Unknown [id number] 2.16.840.1.538842.3.579.2. 593 1997 Unknown [id number] 2.16.840.1.392096.3.579.2. 593 1997 Unknown [id number] 2.16.840.1.845172.3.579.2. 593 1997 Unknown [id number] 2.16.840.1.983449.3.579.2. 593 1997 Unknown [id number] 2.16.840.1.796729.3.579.2. 593 1997 Unknown [id number] 2.16.840.1.469750.3.579.2. 593 1997 Unknown [id number] 2.16.840.1.426050.3.579.2. 593 1997 Unknown [id number] 2.16.840.1.615717.3.579.2. 593 1997 Unknown [id number] 2.16.840.1.564075.3.579.2. 593 1997 Unknown [id number] 2.16.840.1.994423.3.579.2. 593 1997 Unknown [id number] 2.16.840.1.800562.3.579.2. 593 1997 Unknown [id number] 2.16.840.1.103677.3.579.2. 593 1997 Unknown [id number] 2.16.840.1.555960.3.579.2. 593 1997 Unknown [id number] 2.16.840.1.264369.3.579.2. 593 1997 Unknown [id number] 2.16.840.1.416282.3.579.2. 593 1997 Unknown [id number] 2.16.840.1.499580.3.579.2. 593 1997 Unknown [id number] 2.16.840.1.572769.3.579.2. 593 1997 Unknown [id number] 2.16.840.1.755021.3.579.2. 1286 1997 Unknown [id number] 2.16.840.1.693418.3.579.2. 1286 1997 Unknown [id number] 2.16.840.1.513768.3.579.2. 1286 1997 Unknown [id number] 2.16.840.1.701306.3.579.2. 9 1997 Unknown [id number] 2.16.840.1.934695.3.579.2. 9 1997 Unknown [id number] 2.16.840.1.936650.3.579.2. 1259 1997 Unknown [id number] 2.16.840.1.555878.3.579.2. 9 1997 Unknown [id number] 2.16.840.1.476285.3.579.2. 9 1997 Unknown [id number] 2.16.840.1.410855.3.579.2. 1259 1997 Unknown [id number] 2.16.840.1.215504.3.579.2. 1259 1997 Unknown [id number] 2.16.840.1.058888.3.579.2. 9 1997 Unknown [id number] 2.16.840.1.786405.3.579.2. 1259 1997 Unknown [id number] 2.16.840.1.081569.3.579.2. 9 1997 Unknown [id number] 2.16.840.1.795994.3.579.2. 9 1997 Unknown [id number] 2.16.840.1.576533.3.579.2. 1259 1959 Unknown [id number] 1959 Unknown [id number] 1959 Unknown [id number] Unknown [id number] 2.16.840.1.512431.3.579.2. 531 Social History Date Type Detail Facility Start: 01-13-2024 [facility] Start: 01-31-2024 Tobacco smoking stat [facility] Never smoked tobacco (finding) [facility] Start: 1997 Sex Assigned At Female F [facility] Tobacco smoking stat [facility] Tobacco smoking consumption unknown [facility] Start: 1997 Sex assigned at Not on file N [facility] Start: 08-23-2020 End: 06-21-2024 Gender identity Not on file [facility] Start: 10-07-2020 End: 07-14-2024 Tobacco smoking status NHIS Ex-smoker [facility] History of tobacco use Current smoker [facility] Start: 10-07-2020 End: 07-14-2024 Tobacco use and exposure Smokeless tobacco non-user [facility] Start: 06-21-2024 End: 08-15-2024 Alcoholic beverage intake Ex-drinker (finding) [facility] Start: 08-23-2020 End: 06-21-2024 History of Social function [facility] Childcare Unknown [facility] Start: 10-07-2020 End: 07-14-2024 Tobacco Comment quit 3 years ago [facility] Start: 08-23-2020 Sex Female (finding) [facility] History of tobacco use Cigarette Smoker P [facility] Equipment Procedure Code Equipment Code Equipment Original Text Equipment Identifier Dates 1 strip by In Vi tro route Daily Use in the morning prior to breakfast, 1 hour after each meal for a total of 4times daily. [id number] Start: 07-17-2024 End: 08-16-2024 1 each by In Vit ro route Daily Use to check FSBS four times daily [id number] Start: 07-17-2024 End: 08-16-2024 Inject 1 each un jany the skin Daily [id number] Start: 08-23-2024 End: 09-22-2024 Inject 1 each un jany the skin See administration instructions Use four times daily with insulin pen. [id number] Start: 08-22-2024 End: 08-23-2024 Clinical Notes 02-05-2021 to 08-22-2024 Judie Gutierrez LPN - 08/22/2024 2:30 PM Lorene Stearns RDMS - 08/16/2024 1:35 PM Era Lundberg MD - 08/15/2024 9:15 AM Richar Butt LPN - 08/14/2024 3:30 PM EST Note Date & Type Note Facility 08-22-2024 History of Present illness Narrative Reason for [...] citalopram (CELEXA) 20 mg, Oral, Every morning insulin glargine (LANTUS) 10 Units, Subcutaneous, Every evening insulin pen needle 29G x 8mm misc 1 each, Subcutaneous, See admin instructions, Use four times daily with insulin pen. labetalol (Normodyne) 300 MG tablet 1 tablet, 3 times daily NIFEdipine (PROCARDIA) 10 mg, Every [...] nursing note reviewed. Exam conducted with a kit planner present. Vitals: Estimated body mass index is 41.45 kg/m as calculated from the following: Height as of 02/22/24: 5' 3 . Weight as of this encounter: 234 lb. BP: 132/80 Patient's last menstrual period was 12/21/2023. ASSESSMENT & PLAN ICD-10-CM 1. Third trimester Z34.93 POCT urinalysis dipstick manually resulted 2. 34 weeks gestation of Z3A.34 3. Insulin controlled gestational diabetes mellitus (GDM) during , antepartum O24.414 insulin pen needle 29G x 8mm misc insulin glargine (Lantus) 100 UNIT/ML injection Return OB: Patient presents today for a routine obstetrics appointment. Patient is currently 33w5d . Patient states she is doing well but has complaints of being tired due to current . Patient has verbalizes frequent movement. labor precautions was discussed/given and patient was instructed to perform kick counts three times a day. Pt has appt at [facility] on 08/30/24. Reviewed glucose log with pt - initial prescription of Lantus sent in for pt. Pt to stay on labetalol 300 TID. Orders Placed This Encounter Procedures POCT urinalysis dipstick manually resulted Follow Up: Patient is to return to office in 2 week for routine OB appointment. Documented by Judie Gutierrez LPN on behalf of: Scotty Dhillon DO documented in this encounter [facility] 08-16-2024 History of Present illness Narrative Called patient 08/15/24 and 08/16/24 to inform patient of date and time for the Pediatric Cardiology Consultation. L/M for patient to return my call. documented in this encounter [facility] 08-15-2024 History of Present illness Narrative Video Visit via Real-time Synchronous Audiovisual Provider Location: [facility] MATER[facility]- MEDICINE AT [address] [address] Patient Location: Other [place] Office Patient Location Processing Assistant: None Video Visit Consent Statement: I discussed [...] that there are some limitations compared to tbcx-cm-gwys evaluations. We elected to proceed. REASON FOR [...] outflow tracts on ultrasound BMI 40.0-44.9, adult ([facility]) Past Medical History: Diagnosis Date Anxiety [...] and the other consultants, we search on Memvu and all the available care everywhere epic I did review all the imaging studies of the patient available on EMR, ordered by the primary care physician and the other senior solutions workflow consultant HABITS: Patient activity no restrictions, diet [...] of excess red blood cells after the infant has been delivered. We reviewed with her [...] more likely to fail compared to insulin. 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 BMI 40.0-44.9, adult ([facility]) Denies signs and symptoms of preeclampsia [...] patient is in complete care of her law professor. Patient does have ultrasound appointment scheduled with us. Thank you for allowing me to participate in Samantha Taylor . If there any questions please do not hesitate to contact us. Sincerely, Nubia Lundberg MD, FACOG (she/hers) Maternal- Medicine [address] [place] [address] documented in this encounter [facility] 08-14-2024 History of Present illness [...] nursing note reviewed. Exam conducted with a kit planner present. Vitals: Estimated body mass index is [...] Scotty Dhillon DO documented in this encounter [facility] 07-31-2024 History of Present illness Narrative Reason for Appointment: Patient ID: Samantha Taylor is a 29 y.o. female who presents for Routine Visit Patient presents today for Return OB appointment. MEDICATIONS Current Outpatient Medications Medication Instructions Alcohol Swabs (Alcohol Prep Pad) 70 % pads 1 Pad, Topical, Daily, Use four times daily to check FSBS. Blood Glucose Monitoring Suppl (e-Tag Glucometer) w/Device kit 1 kit, Does not [...] LUIS F Tarango documented in this encounter [facility] 07-17-2024 History of Present illness [...] Scotty Dhillon DO documented in this encounter [facility] 07-14-2024 History of Present illness [...] yes Have you been seen here at [facility] in a previous ? no Recent ER visits or hospitalizations? no Bring blood sugar log or meter with you today? (Please bring them with you for every visit at [facility]) no Flu vaccine (Jun-September)? no Any [...] outflow tracts on ultrasound BMI 40.0-44.9, adult ([facility]) Past Medical History: Diagnosis Date Anxiety [...] and the other consultants, we search on Memvu and all the available care everywhere epic I did review all the imaging studies of the patient available on EMR, ordered by the primary care physician and the other senior solutions workflow consultant HABITS: Patient activity no restrictions, diet [...] and therefore has been rescheduled at our [facility] site. DISPOSITION: At this point the patient is in complete care of her law professor. Patient does have ultrasound appointment scheduled with us. Thank you for allowing me to participate in Samantha Taylor . If there any questions please do not hesitate to contact us. Sincerely, ANICETO FOX MD documented in this encounter [facility] 06-15-2024 History of Present illness Narrative Reason [...] LUIS F Tarango documented in this encounter [facility] 05-18-2024 History of Present illness [...] nursing note reviewed. Exam conducted with a kit planner present. Vitals: Estimated body mass index is [...] MSAFP orders to have drawn at [facility] in [place]. Documented by Angela Butt LPN on behalf of: Scotty Dhillon DO documented in this encounter [facility] 04-20-2024 History of Present illness Narrative Reason for Appointment: Patient ID: Samantha Tayolr is a 29 y.o. female who presents [...] LUIS F Tarango documented in this encounter [facility] 03-22-2024 History of Present illness [...] nursing note reviewed. Exam conducted with a kit planner present. Vitals: Estimated body mass index is [...] or undercooked meat, and stay away from [facility]. Patient has been consulted regarding any [...] Scotty Dhillon DO documented in this encounter [facility] 02-05-2021 Note OPERATIVE NOTE OPERATION DATE: 02-06-21 ANESTHETIC:Spinal with Duramorph. RECLAMATION KETTLE TENDER:ELVIA Prajapati PREOPERATIVE DIAGNOSIS: 1. Intrauterine at 37 [...] by: DR SCOTTY DHILLON . 02/11/2021 11:15:00 [facility] 02-05-2021 Note DISCHARGE SUMMARY Discharge [...] by: DR SCOTTY DHILLON . 02/25/2021 23:13:00 [facility] Evaluation note No assessment inform ation available [facility] Work Phone: Evaluation note Diagnosis [...] Chronic hypertension affecting [facility]* Diagnosis Third trimester state, incidental 28 weeks gestation of Gestational diabetes mellitus (GDM) in third trimester, gestational diabetes method of control unspecified Hypertension, unspecified type (CMS/HCC) Gestational diabetes mellitus (GDM), antepartum, gestational diabetes [...] trimester state, incidental documented in this encounter [facility] HealthcareEvaluation note* Diagnosis 32 weeks gestation of - Primary Gestational diabetes mellitus (GDM) in third trimester, gestational diabetes method of control unspecified Chronic hypertension affecting BMI 40.0-44.9, adult ([facility]) arrhythmia affecting , antepartum Abnormality in heart rate/rhythm, antepartum condition or complication Polyhydramnios affecting Separation of chorion and amnion membranes, antepartum [facility]* Diagnosis Abnormal ultrasonic finding on screening of mother, antepartum- Primary [facility]* Diagnosis Third trimester state, incidental 34 weeks gestation of Insulin controlled gestational diabetes mellitus (GDM) during , antepartum documented in this encounter [facility] HealthcareInstructionsNot on filedocumented in [facility] SystemInstructionsNot on filedocumented in this encounterTr[facility] SystemInstructions* Attachments The following attachments cannot be sent through Care Everywhere. * Preeclampsia (Vincentian) * labor (Vincentian) documented [facility] SystemInstructionsNot on file documented in [facility] encounterTr[facility] SystemInstructionsNot on file documented [facility] Summary Purpose Family History No [...] DATE CREATED AUTHOR 10/15/2021 [facility] DATE CREATED AUTHOR AUTHOR'S ORGANIZ ATION 02/19/2024 [facility] DATE CREATED AUTHOR AUTHOR'S ORGANIZ ATION 07/17/2024 [facility] DATE CREATED AUTHOR AUTHOR'S ORGANIZ ATION 08/18/2024 [facility] DATE CREATED AUTHOR AUTHOR'S ORGANIZ ATION 08/18/2024 [facility] DATE CREATED AUTHOR AUTHOR'S ORGANIZ ATION 08/24/2024 [facility] EPIC Care [...] January 31, 2024 End: January 31, 2024 Account Group Supervisor Relationship Specialty Start Date End Date Jacques Mccarthy MD [address] [facility] [place] [address] PCP - General Family Medicine 02/08/24 Account Group Supervisor Relationship Specialty Start Date End Date Jacques Mccarthy MD [address] [facility] [place] [address] PCP - General Family Medicine 02/08/24 Account Group Supervisor Relationship Specialty Start Date End Date Jacques Mccarhty MD PCP - General Family Medicine 10/07/20 Account Group Supervisor Relationship Specialty Start Date End Date Jacques Mccarthy MD [address] [facility] [place] [address] PCP - General Family Medicine 02/08/24 Account Group Supervisor Relationship Specialty Start Date End Date Jacques Mccarthy MD [address] [facility] [place] [address] PCP - General Family Medicine 02/08/24 Account Group Supervisor Relationship Specialty Start Date End Date Jacques Mccarthy MD [address] [facility] [place] [address] PCP - General Family Medicine 02/08/24 Account Group Supervisor Relationship Specialty Start Date End Date Jacques Mccarthy MD PCP - General Family Medicine 10/07/20 Account Group Supervisor Relationship Specialty Start Date End Date Jacques Mccarthy MD [address] [facility] [place] [address] PCP - General Family Medicine 02/08/24 Account Group Supervisor Relationship Specialty Start Date End Date Jacques Mccarthy MD [address] [facility] [place] [address] PCP - General Family Medicine 02/08/24 Account Group Supervisor Relationship Specialty Start Date End Date Jacques Mccarthy MD [address] [facility] [place] [address] PCP - General Family Medicine 02/08/24 Account Group Supervisor Relationship Specialty Start Date End Date Jacques Mccarthy MD [address] [facility] [place] [address] PCP - General Family Medicine 02/08/24 Account Group Supervisor Relationship Specialty Start Date End Date Jacques Mccarthy MD [address] [facility] [place] [address] PCP - General Family Medicine 02/08/24 Account Group Supervisor Relationship Specialty Start Date End Date Jacques Mccarthy MD [address] [facility] [place] [address] PCP - General Family Medicine 02/08/24 Account Group Supervisor Relationship Specialty Start Date End Date Jacques Mccarthy MD [address] [facility] [place] [address] PCP - General Family Medicine 02/08/24 Account Group Supervisor Relationship Specialty Start Date End Date Jacques Mccarthy MD [address] [place] [address] PCP - General Family Medicine 02/08/24 Account Group Supervisor Relationship Specialty Start Date End Date Jacques Mccarthy MD PCP - General Family Medicine 10/07/20 Account Group Supervisor Relationship Specialty Start Date End Date Jacques Mccarthy MD PCP - General Family Medicine 10/07/20 Account Group Supervisor Relationship Specialty Start Date End Date Jacques Mccarthy MD PCP - General Family Medicine 10/07/20 Account Group Supervisor Relationship Specialty Start Date End Date Jacques Mccarthy MD [address] [place] [address] PCP - [facility] 02/08/24 Goals (unrecognized section and content) Goals [...] BE BASED ON THE PRIMARY CLINICAL RECORDS. [facility] Center[facility]. provides no warranty or guarantee of the accuracy or completeness of information in this document.
--- OUTSIDE RECORDS SUMMARY | 2024-08-30 06:59 | XMS_ITS | CCD ---
Author Organization [facility] Care Team Providers Care Children Teacher Name Role Phone JACQUIE, DR FAJARDO Consulting [...] MIGUEL ÁNGEL, DR HANNA Primary Care Unavailable GREGORY, DR IRINEO [facility] Unavailable JACQUIE, DR [...] [employer] Unavailable MIGUEL ÁNGEL, DR HANNA [facility] Unavailable JACQUIE, DR FAJARDO Attending Unavailable JACQUIE, DR FAJARDO Consulting Unavailable JACQUIE, DR FAJARDO Attending Unavailable HOY, DR HANNA [facility] Care Unavailable JACQUIE, DR FAJARDO Admitting Unavailable MD Jacques Mccarthy Primary Care Provider [phone] DO Terry Dudley Emergency Provider [phone] Terry Dudley Admitting Unavailable Terry Dudley Attending Unavailable Jacques Mccarthy Primary Care Unavailable Jacques Mccarthy MD Primary Care Provider [phone] Jacques Mccarthy MD Primary Care Provider [phone] ANICETO FOX Attending Unavailable SCOTTY DHILLON Referring [...] mental disorders complicating , third trimester; Translations: [[facility] MENTAL D/O COMP PREG THIRD TRI] Onset: [...] Negative Negative - 4(70) +++ mg/dL [facility] Blood, UA Negative Negative - 50 Hardeep/mcL [facility] Clarity, UA Clear [facility] Color, UA Yellow [facility] Glucose, UA Negative Negative - 1999(110) ++++ mg/dL [facility] Interpretation and review of laboratory results Normal [facility] Ketones, UA Negative Negative - 160(16) ++++ mg/dL [facility] Leukocytes, UA Negative Negative - 500+++ Renee/mcL [facility] Nitrite, UA Negative Negative - Positive [facility] pH, UA 7 5 - 9 [facility] Protein, UA Negative Negative - 2000(20) ++++ mg/dL [facility] Spec Grav, UA 1.015 1 - 1.03 [facility] Urobilinogen, UA 0.2 0.2 - 12 mg/dL [facility] Urinalysis macro (dipstick) panel (U)on 08-14-2024 Bilirubin, UA Negative Negative - 4(70) +++ mg/dL [facility] Blood, UA Positive Negative - 50 Hardeep/mcL [facility] Comment on above: trace-intact Clarity, UA Clear [facility] Color, UA Yellow [facility] Glucose, UA Negative Negative - 1999(110) ++++ mg/dL [facility] Interpretation and review of laboratory results Abnormal [facility] Ketones, UA Positive Negative - 160(16) ++++ mg/dL [facility] Comment on above: 40 Leukocytes, UA Negative Negative - 500+++ Renee/mcL [facility] Nitrite, UA Negative Negative - Positive [facility] pH, UA 6 5 - 9 [facility] Protein, UA Trace Negative - 1999(20) ++++ mg/dL [facility] Spec Grav, UA 1.02 1 - 1.03 [facility] Urobilinogen, UA 0.2 0.2 - 12 mg/dL [facility] ALL CBC WITH AUTO DIFFon BASOPHILS ABSOLUTE AUTO 0.1 [facility] Basophils/100 WBC (Bld) 0.3 % 0.2 - 2.0 % [facility] Eosinophils/100 WBC (Bld) 0.6 % Low 0.9 - 7.0 % [facility] Erythrocyte distribution width (RBC) [Ratio] 12.2 % 11.0 - 15.0 % [facility] Hematocrit (Bld) [Volume fraction] 36.7 % 36.0 - 48.0 % [facility] Hemoglobin (Bld) [Mass/Vol] 12.5 g/dL 12.0 - 16.0 g/dL [facility] IMMATURE GRANULOCYTES ABS AUTO 0.33 High [facility] Immature granulocytes/100 WBC (Bld) 2 % High 0.0 - 0.5 % [facility] Interpretation and review of laboratory results Abnormal [facility] LYMPHOCYTES ABSOLUTE AUTO 1.6 [facility] Lymphocytes/100 WBC (Bld) 9.9 % Low 20.5 - 60.0 % [facility] MCH (RBC) [Entitic mass] 29.7 pg 26.7 - 34.0 pg [facility] MCHC (RBC) [Mass/Vol] 34.1 g/dL 29.9 - 35.2 g/dL [facility] MCV (RBC) [Entitic vol] 87.2 fL 81.0 - 99.0 fL [facility] MONOCYTES ABSOLUTE AUTO 1 High [facility] Monocytes/100 WBC (Bld) 6.3 % 1.7 - 12.0 % [facility] NEUTROPHILS ABSOLUTE AUTO 13.2 High [facility] Neutrophils/100 WBC (Bld) 80.9 % High 43.0 - 75.0 % [facility] Platelet mean volume (Bld) [Entitic vol] 10.5 fL 9.5 - 13.5 [facility]L [facility] PLT 247 [facility] RBC 4.21 [facility] WBC 16.3 High [facility] ALL CBC WITH AUTO DIFFon BASOPHILS ABSOLUTE AUTO 0.1 [facility] Basophils/100 WBC (Bld) 0.3 % 0.2 - 2.0 % [facility] Eosinophils/100 WBC (Bld) 0.2 % Low 0.9 - 7.0 % [facility] Erythrocyte distribution width (RBC) [Ratio] 12.1 % 11.0 - 15.0 % [facility] Hematocrit (Bld) [Volume fraction] 35.3 % Low 36.0 - 48.0 % [facility] Hemoglobin (Bld) [Mass/Vol] 12.1 g/dL 12.0 - 16.0 g/dL [facility] IMMATURE GRANULOCYTES ABS AUTO 0.31 High [facility] Immature granulocytes/100 WBC (Bld) 1.7 % High 0.0 - 0.5 % [facility] Interpretation and review of laboratory results Abnormal [facility] LYMPHOCYTES ABSOLUTE AUTO 1.4 [facility] Lymphocytes/100 WBC (Bld) 7.9 % Low 20.5 - 60.0 % [facility] MCH (RBC) [Entitic mass] 29.8 pg 26.7 - 34.0 pg [facility] MCHC (RBC) [Mass/Vol] 34.3 g/dL 29.9 - 35.2 g/dL [facility] MCV (RBC) [Entitic vol] 86.9 fL 81.0 - 99.0 fL [facility] MONOCYTES ABSOLUTE AUTO 1.3 High [facility] Monocytes/100 WBC (Bld) 7.1 % 1.7 - 12.0 % [facility] NEUTROPHILS ABSOLUTE AUTO 15.1 High [facility] Neutrophils/100 WBC (Bld) 82.8 % High 43.0 - 75.0 % [facility] Platelet mean volume (Bld) [Entitic vol] 10.5 fL 9.5 - 13.5 fL [facility] EO # 0 [facility] PLT 217 [facility] RBC 4.06 Low [facility] WBC 18.2 High [facility] UA (CLEAN/CATCH) CONTROL PANEL OPERATOR CRUDE UNIT/KEYLA RO IF IND.on 08-04-2024 BILIRUBIN URINE Negative NEGATIVE [facility] BLOOD URINE Negative NEGATIVE [facility] Clarity (U) CLEAR CLEAR [facility] Color (U) YELLOW YELLOW [facility] GLUCOSE URINE UA 500 mg/dL Abnormal NEGATIVE [facility] Interpretation and review of laboratory results Abnormal [facility] Ketones Ql (U) Negative NEGATIVE mg/dL [facility] Leukocyte esterase Test strip Ql (U) Negative NEGATIVE [facility] NITRITE URINE Negative NEGATIVE [facility] pH (U) 6.0 [pH] 5.0 - 9.0 [facility] PROTEIN URINE Negative NEG/TRACE mg/dL [facility] SPECIFIC GRAVITY URINE 1.025 1.005 - 1.025 [facility] URINE MICROSCOPIC INDICATED NO [facility] UROBILINOGEN URINE 0.2 EU/dL 0.2 - 1.0 EU/dL [facility] Urinalysis macro (dipstick) panel (U)on 07-31-2024 Bilirubin, UA Negative Negative - 4(70) +++ mg/dL [facility] Blood, UA Positive Negative - 50 Hardeep/mcL [facility] Comment on above: small Clarity, UA Clear [facility] Color, UA Yellow [facility] Glucose, UA Positive Negative - 1999(110) ++++ mg/dL [facility] Comment on above: 250 Interpretation and review of laboratory results Abnormal [facility] Ketones, UA Negative Negative - 160(16) ++++ mg/dL [facility] Leukocytes, UA Negative Negative - 500+++ Renee/mcL [facility] Nitrite, UA Negative Negative - Positive [facility] pH, UA 6 5 - 9 [facility] Protein, UA Trace Negative - 1999(20) ++++ mg/dL [facility] Spec Grav, UA 1.02 1 - 1.03 [facility] Urobilinogen, UA 0.2 0.2 - 12 mg/dL [facility] Urinalysis macro (dipstick) panel (U)on 07-17-2024 Bilirubin, UA Negative Negative - 4(70) +++ mg/dL [facility] Blood, UA Negative Negative - 50 Hardeep/mcL [facility] Clarity, UA Clear [facility] Color, UA Yellow [facility] Glucose, UA Positive Negative - 1999(110) ++++ mg/dL [facility] Comment on above: 500 Interpretation and review of laboratory results Abnormal [facility] Ketones, UA Positive Negative - 160(16) ++++ mg/dL [facility] Comment on above: TRACE Leukocytes, UA Negative Negative - 500+++ Renee/mcL [facility] Nitrite, UA Negative Negative - Positive [facility] pH, UA 5.5 5 - 9 [facility] Protein, UA Negative Negative - 1999(20) ++++ mg/dL [facility] Spec Grav, UA 1.02 1 - 1.03 [facility] Urobilinogen, UA 0.2 0.2 - 12 mg/dL [facility] Glucose random or fasting- P OCTon 07-14-2024 External Glucose Fasting Or Random (Fbs) 169 [facility] ALL CBC WITH AUTO DIFFon BASOPHILS ABSOLUTE AUTO 0.1 [facility] Basophils/100 WBC (Bld) 0.3 % 0.2 - 2.0 % [facility] Eosinophils/100 WBC (Bld) 0.3 % Low 0.9 - 7.0 % [facility] Erythrocyte distribution width (RBC) [Ratio] 12.1 % 11.0 - 15.0 % [facility] Hematocrit (Bld) [Volume fraction] 37.3 % 36.0 - 48.0 % [facility] Hemoglobin (Bld) [Mass/Vol] 12.7 g/dL 12.0 - 16.0 g/dL [facility] IMMATURE GRANULOCYTES ABS AUTO 0.32 High [facility] Immature granulocytes/100 WBC (Bld) 1.8 % High 0.0 - 0.5 % [facility] Interpretation and review of laboratory results Abnormal [facility] LYMPHOCYTES ABSOLUTE AUTO 1.5 [facility] Lymphocytes/100 WBC (Bld) 8.3 % Low 20.5 - 60.0 % [facility] MCH (RBC) [Entitic mass] 30.3 pg 26.7 - 34.0 pg [facility] MCHC (RBC) [Mass/Vol] 34 g/dL 29.9 - 35.2 g/dL [facility] MCV (RBC) [Entitic vol] 89 fL 81.0 - 99.0 fL [facility] MONOCYTES ABSOLUTE AUTO 0.9 High [facility] Monocytes/100 WBC (Bld) 5.2 % 1.7 - 12.0 % [facility] NEUTROPHILS ABSOLUTE AUTO 15 High [facility] Neutrophils/100 WBC (Bld) 84.1 % High 43.0 - 75.0 % [facility] Platelet mean volume (Bld) [Entitic vol] 10.4 fL 9.5 - 13.5 fL [facility] TBH EO # 0.1 [facility] TB PLT 255 [facility] RBC 4.19 Low [facility] WBC 17.8 High [facility] Urinalysis macro (dipstick) panel (U)on 06-15-2024 Bilirubin, UA Negative Negative - 4(70) +++ mg/dL [facility] Blood, UA Negative Negative - 50 Hardeep/mcL [facility] Clarity, UA Clear [facility] Color, UA Yellow [facility] Glucose, UA Positive Negative - 2000(110) ++++ mg/dL [facility] Interpretation and review of laboratory results Abnormal [facility] Ketones, UA Negative Negative - 160(16) ++++ mg/dL [facility] Leukocytes, UA Positive Negative - 500+++ Renee/mcL [facility] Nitrite, UA Negative Negative - Positive [facility] pH, UA 5.5 5 - 9 [facility] Protein, UA Negative Negative - 1999(20) ++++ mg/dL [facility] Spec Grav, UA 1.02 1 - 1.03 [facility] Urobilinogen, UA 1.0 0.2 - 12 mg/dL [facility] Urinalysis macro (dipstick) panel (U)on 05-18-2024 Bilirubin, UA Negative Negative - 4(70) +++ mg/dL [facility] Blood, UA Negative Negative - 50 Hardeep/mcL [facility] Clarity, UA Clear [facility] Color, UA Yellow [facility] Glucose, UA Negative Negative - 1999(110) ++++ mg/dL [facility] Interpretation and review of laboratory results Normal [facility] Ketones, UA Negative Negative - 160(16) ++++ mg/dL [facility] Leukocytes, UA Negative Negative - 500+++ Renee/mcL [facility] Nitrite, UA Negative Negative - Positive [facility] pH, UA 7 5 - 9 [facility] Protein, UA Negative Negative - 1999(20) ++++ mg/dL [facility] Spec Grav, UA 1.025 1 - 1.03 [facility] Urobilinogen, UA 0.2 0.2 - 12 mg/dL [facility] Urinalysis macro (dipstick) panel (U)on 04-20-2024 Bilirubin, UA Positive Negative - 4(70) +++ mg/dL [facility] Comment on above: small Blood, UA Negative Negative - 50 Hardeep/mcL [facility] Clarity, UA Clear [facility] Color, UA Yellow [facility] Glucose, UA Negative Negative - 1999(110) ++++ mg/dL [facility] Interpretation and review of laboratory results Abnormal [facility] Ketones, UA Positive Negative - 160(16) ++++ mg/dL [facility] Comment on above: trace Leukocytes, UA Negative Negative - 500+++ Renee/mcL [facility] Nitrite, UA Negative Negative - Positive [facility] pH, UA 6.5 5 - 9 [facility] Protein, UA Trace Negative - 1999(20) ++++ mg/dL [facility] Spec Grav, UA 1.030 1 - 1.03 [facility] Urobilinogen, UA 1.0 0.2 - 12 mg/dL [facility] Activated partial thrombopla stin time (aPTT) in platelet poor plasma by coagulation aOrdered By: Terry Dudley on 01-31-2024 aPTT Coag (PPP) [Time] 26.1 s 25.1-36.5 [facility] Comment on above: A hematocrit value g reater than 55% may lead to inaccurate results in coagulation testing. Patients having hematocrit values >55% require a special collection tube for coagulation studies. Please contact the laboratory at [phone] for redraw instructions. Alanine aminotransferase [En zymatic activity/volume] in Serum or PlasmaOrdered By: Terry Dudley on 01-31-2024 ALT [Catalytic activity/Vol] 22 U/L Normal 7-52 [facility] Comment on above: Performed By: #### H S TROP, PTT, CMP, DDIMER, BNP, CK, PT, CBC #### [facility] [address] [place] [address] [place] Albumin [Mass/volume] in Ser um or Plasma by Bromocresol green (BCG) dye binding methoOrdered By: Terry Dudley on 01-31-2024 Albumin BCG dye [Mass/Vol] 4.7 g/dL 3.5-5.7 [facility] Alkaline phosphatase [Enzyma tic activity/volume] in Serum or PlasmaOrdered By: Terry Dudley on 01-31-2024 ALP [Catalytic activity/Vol] 67 U/L Normal 34-104 [facility] Comment on above: Performed By: #### H S TROP, PTT, CMP, DDIMER, BNP, CK, PT, CBC #### [facility] [address] [place] [id number] [facility] Aspartate aminotransferase [ Enzymatic activity/volume] in Serum or PlasmaOrdered By: Terry Dudley on 01-31-2024 AST [Catalytic activity/Vol] 17 U/L Normal 13-39 [facility] Comment on above: Performed By: #### H S TROP, PTT, CMP, DDIMER, BNP, CK, PT, CBC #### [facility] [address] [place] [id number] [place] Automated basophil %Ordered By: Terry Dudley on 01-31-2024 Basophils/100 WBC (Bld) 0.6 % Normal . [facility] Comment on above: Performed By: #### H S TROP, PTT, CMP, DDIMER, BNP, CK, PT, CBC #### [address] Automated basophil countOrde red By: Terry Dudley on 01-31-2024 Basophils (Bld) [#/Vol] 0.1 10*3/uL Normal 0.0-0.2 [facility] Comment on above: Result Comment: PERF ORMED BY: [place] [address] PATHOLOGIST [employer] SPECIALIST CARLOS HITCHCOCK M.D. Performed By: #### H S TROP, PTT, CMP, DDIMER, BNP, CK, PT, CBC #### [address] Automated blood monocyte cou ntOrdered By: Terry Dudley on 01-31-2024 Monocytes (Bld) [#/Vol] 1.3 10*3/uL High 0.0-0.8 [facility] Comment on above: Performed By: #### H S TROP, PTT, CMP, DDIMER, BNP, CK, PT, CBC #### [address] Automated eosinophil %Ordere d By: Terry Dudley on 01-31-2024 Eosinophils/100 WBC (Bld) 0.3 % Normal . [facility] Comment on above: Performed By: #### H S TROP, PTT, CMP, DDIMER, BNP, CK, PT, CBC #### [address] Automated eosinophil countOr dered By: Terry Dudley on 01-31-2024 Eosinophils (Bld) [#/Vol] 0.1 10*3/uL Normal 0.0-0.45 [facility] Comment on above: Performed By: #### H S TROP, PTT, CMP, DDIMER, BNP, CK, PT, CBC #### [address] Automated monocyte %Ordered By: Terry Dudley on 01-31-2024 Monocytes/100 WBC (Bld) 7.5 % Normal . [facility] Comment on above: Performed By: #### H S TROP, PTT, CMP, DDIMER, BNP, CK, PT, CBC #### [address] Automated neutrophil %Ordere d By: Terry Dudley on 01-31-2024 Neutrophils/100 WBC (Bld) 79.8 % Normal . [facility] Comment on above: Performed By: #### H S TROP, PTT, CMP, DDIMER, BNP, CK, PT, CBC #### [address] BNP ser/plasOrdered By: Delgado Dudley on 01-31-2024 Natriuretic peptide B (Bld) [Mass/Vol] 30.0 pg/mL Normal 5-100 [facility] Comment on above: Result Comment: PERF ORMED BY: [place] [address] PATHOLOGIST [employer] SPECIALIST CARLOS HITCHCOCK M.D. Performed By: #### H S TROP, PTT, CMP, DDIMER, BNP, CK, PT, CBC #### [address] Bilirubin Test strip Ql (U)O rdered By: Terry Dudley on 01-31-2024 Bilirubin Ql (U) Negative Negative [facility] Bilirubin.total [Mass/volume ] in Serum or PlasmaOrdered By: Terry Dudley on 01-31-2024 Bilirubin [Mass/Vol] 0.5 mg/dL Normal 0.3-1.0 [facility] Comment on above: Performed By: #### H S TROP, PTT, CMP, DDIMER, BNP, CK, PT, CBC #### [address] Calcium [Mass/volume] in Ser um or PlasmaOrdered By: Terry Dudley on 01-31-2024 Calcium [Mass/Vol] 9.6 mg/dL Normal 8.6-10.3 [facility] Comment on above: Performed By: #### H S TROP, PTT, CMP, DDIMER, BNP, CK, PT, CBC #### [address] Carbon dioxide, total [Moles /volume] in Serum or PlasmaOrdered By: Terry Dudley on 01-31-2024 CO2 [Moles/Vol] 30.1 mmol/L Normal 21.0-31.0 [facility] Comment on above: Performed By: #### H S TROP, PTT, CMP, DDIMER, BNP, CK, PT, CBC #### [address] Chloride [Moles/volume] in S marty or PlasmaOrdered By: Terry Dudley on 01-31-2024 Chloride [Moles/Vol] 101 mmol/L Normal 98-107 [facility] Comment on above: Performed By: #### H S TROP, PTT, CMP, DDIMER, BNP, CK, PT, CBC #### [address] Color of Urine by AutoOrdere d By: Terry Dudley on 01-31-2024 Color (U) Colorless Normal Yellow [facility] Comment on above: Order Comment: Name Collection Type:: Clean-Voided Midstream Performed By: #### U A, UHCG #### [address] Complete Blood Count Auto Di ffon 01-31-2024 Mean Corpuscular HGB Conc 34.6 g/dL Normal 32.0-35.0 [facility] Comment on above: Performed By: #### H S TROP, PTT, CMP, DDIMER, BNP, CK, PT, CBC #### [place] [address] [place] Monocytes/100 WBC (Bld) 14.85 % Normal 0.00-20.00 [facility] Comment on above: Performed By: #### H S TROP, PTT, CMP, DDIMER, BNP, CK, PT, CBC #### [address] NRBC% 0.0 /100{WBC} Normal 0-0.5 [facility] Comment on above: Performed By: #### H S TROP, PTT, CMP, DDIMER, BNP, CK, PT, CBC #### [address] Comprehensive Metabolic Pane urszula 01-31-2024 Albumin [Mass/Vol] 4.7 g/dL Normal 3.5-5.7 [facility] Comment on above: Performed By: #### H S TROP, PTT, CMP, DDIMER, BNP, CK, PT, CBC #### [address] Creatinine Clr Calc Pharmacy 119.17 Normal [facility] Comment on above: Result Comment: PERF ORMED BY: [place] [address] PATHOLOGIST [employer] SPECIALIST CARLOS HITCHCOCK M.D. Performed By: #### H S TROP, PTT, CMP, DDIMER, BNP, CK, PT, CBC #### [address] GFR/1.73 sq M.predicted MDRD (S/P/Bld) [Vol rate/Area] mL/min/{1.73_m2} Normal [facility] Comment on above: Performed By: #### H S TROP, PTT, CMP, DDIMER, BNP, CK, PT, CBC #### [address] Creatine kinase [Enzymatic a ctivity/volume] in Serum or PlasmaOrdered By: Terry Dudley on 01-31-2024 CK [Catalytic activity/Vol] 76 U/L Normal 30-223 [facility] Comment on above: Performed By: #### H S TROP, PTT, CMP, DDIMER, BNP, CK, PT, CBC #### [address] Creatinine [Mass/volume] in Serum or PlasmaOrdered By: Terry Dudley on 01-31-2024 Creatinine [Mass/Vol] 0.80 mg/dL Normal 0.60-1.20 [facility] Comment on above: Performed By: #### H S TROP, PTT, CMP, DDIMER, BNP, CK, PT, CBC #### [place] [id number] [facility] D-Dimer High Sensitivityon 0 01-31-2024 D-Dimer High Sensitivity < 200 Normal 0-243 [facility] Comment on above: Result Comment: [...] coagulation studies. Please contact the laboratory at [phone] for redraw instructions. PERFORMED BY: [place] [address] PATHOLOGIST DIVERSITY SPECIALIST CARLOS HITCHCOCK M.D. Performed By: #### H S TROP, PTT, CMP, DDIMER, BNP, CK, PT, CBC #### [place] [id number] [facility] ECG 12 lead ECGon 01-31-2024 ECG 12 lead ECG [facility] [place] [address] [place] [address] Electrocardiograph Report Signed Patient: Samantha Taylor MR#: [id number] : 1995 Acct:[id number] Age/Sex: 28 / F ADM Date: 01/31/24 Loc: ER Room: Type: [facility] ER Attending Dr: Ordering Provider: [...] By Terry Dudley DO 192 Normal [facility] Erythrocyte distribution wid th [Ratio] by Automated countOrdered By: Terry Dudley on 01-31-2024 Erythrocyte distribution width (RBC) [Ratio] 12.4 % Normal 11.9-15.3 [facility] Comment on above: Performed By: #### H S TROP, PTT, CMP, DDIMER, BNP, CK, PT, CBC #### [facility] [address] Erythrocytes [#/volume] in B lood by Automated countOrdered By: Terry Dudley on 01-31-2024 RBC (Bld) [#/Vol] 4.93 10*6/uL Normal 3.60-5.00 [facility] Comment on above: Performed By: #### H S TROP, PTT, CMP, DDIMER, BNP, CK, PT, CBC #### [facility] [address] Fibrin D-dimer [Presence] in Platelet poor plasma by Latex agglutinationOrdered By: Terry Dudley on 01-31-2024 Fibrin D-dimer LA Ql (PPP) < 200 ng/mL 0-243 [facility] Comment on above: The reference [...] coagulation studies. Please contact the laboratory at [phone] for redraw instructions. Glucose [Mass/volume] in Ser um or PlasmaOrdered By: Terry Dudley on 01-31-2024 Glucose [Mass/Vol] 91 mg/dL Normal 70-100 [facility] Comment on above: ADA recommended refe rence rangeRandom Glucose Reference Range is dependent on time and content of last meal. Glucose of more than 200 mg/dL in a nonstressed, ambulatory subject supports the diagnosis of Diabetes Mellitus. Result Comment: [place] om Glucose Reference Range is dependent on time and content of last meal. Glucose of more than 200 mg/dL in a nonstressed, ambulatory subject supports the diagnosis of Diabetes Mellitus. ADA recommended reference range Performed By: #### H S TROP, PTT, CMP, DDIMER, BNP, CK, PT, CBC #### [facility] [address] Glucose [Mass/volume] in Uri ne by Test stripOrdered By: Terry Dudley on 01-31-2024 Glucose Test strip (U) [Mass/Vol] Normal mg/dL Normal [facility] HCG ( test) IA.rapi d Ql (U)Ordered By: Terry Dudley on 01-31-2024 HCG ( test) Ql (U) Positive [facility] HCG,Urineon 01-31-2024 Beta HCG ( test) Ql (U) Positive [facility] Comment on above: Order Comment: Name Collection Type:: Clean-Voided Midstream Result Comment: PERF ORMED BY: [facility] [address] [place] [address] PATHOLOGIST DIVERSITY SPECIALIST CARLOS HITCHCOCK M.D. Performed By: #### H S TROP, PTT, CMP, DDIMER, BNP, CK, PT, CBC #### [facility] [address] Hematocrit [Volume Fraction] of Blood by Automated countOrdered By: Terry Luis Enrique on 01-31-2024 Hematocrit (Bld) [Volume fraction] 45.1 % Normal 34.0-46.4 [facility] Comment on above: Performed By: #### H S TROP, PTT, CMP, DDIMER, BNP, CK, PT, CBC #### [address] Hemoglobin Test strip Ql (U) Ordered By: Terry Dudley on 01-31-2024 Hemoglobin Ql (U) Negative Negative [facility] Hemoglobin [Mass/volume] in BloodOrdered By: Terry Dudley on 01-31-2024 Hemoglobin (Bld) [Mass/Vol] 15.6 g/dL High 11.8-15.4 [facility] Comment on above: Performed By: #### H S TROP, PTT, CMP, DDIMER, BNP, CK, PT, CBC #### [address] INR in Platelet poor plasma by Coagulation assayOrdered By: Terry Dudley on 01-31-2024 INR Coag (PPP) [Relative time] 1.2 {INR} Normal [facility] Comment on above: INR Therapeutic [...] CMP, DDIMER, BNP, CK, PT, CBC #### [facility] [address] [place] [address] [place] Ketones [Presence] in Urine by Test stripOrdered By: Terry Dudley on 01-31-2024 Ketones Ql (U) Negative Normal Negative [facility] Comment on above: Order Comment: Name Collection Type:: Clean-Voided Midstream Performed By: #### U A, UHCG #### [place] [address] [place] Leukocyte esterase [Presence ] in Urine by Test stripOrdered By: Terry Dudley on 01-31-2024 Leukocyte esterase Test strip Ql (U) Negative Normal Negative [facility] Comment on above: Order Comment: Name Collection Type:: Clean-Voided Midstream Performed By: #### U A, UHCG #### [place] [address] [place] Leukocytes [#/volume] correc edna for nucleated erythrocytes in Blood by Automated counOrdered By: Terry Dudley on 01-31-2024 WBC corrected for nucl RBC Auto (Bld) [#/Vol] 17.5 10*3/uL High 3.8-11.6 [facility] Leukocytes [#/volume] in Blo od by Automated countOrdered By: Terry Dudley on 01-31-2024 WBC (Bld) [#/Vol] 17.5 10*3/uL High 3.8-11.6 [facility] Comment on above: Performed By: #### H S TROP, PTT, CMP, DDIMER, BNP, CK, PT, CBC #### [place] [address] [place] Lymphocytes [#/volume] in Bl ood by Automated countOrdered By: Terry Dudley on 01-31-2024 Lymphocytes (Bld) [#/Vol] 2.1 10*3/uL Normal 1.00-4.8 [facility] Comment on above: Performed By: #### H S TROP, PTT, CMP, DDIMER, BNP, CK, PT, CBC #### [place] [address] [place] Lymphocytes/100 leukocytes i n Blood by Automated countOrdered By: Terry Dudley on 01-31-2024 Lymphocytes/100 WBC (Bld) 11.8 % Normal . [facility] Comment on above: Performed By: #### H S TROP, PTT, CMP, DDIMER, BNP, CK, PT, CBC #### [address] MCH [Entitic mass] by Automa edna countOrdered By: Terry Dudley on 01-31-2024 MCH (RBC) [Entitic mass] 31.7 pg Normal 24.7-34.3 [facility] Comment on above: Performed By: #### H S TROP, PTT, CMP, DDIMER, BNP, CK, PT, CBC #### [address] MCHC Auto (RBC) [Mass/Vol]Or dered By: Terry Dudley on 01-31-2024 MCHC (RBC) [Mass/Vol] 34.6 g/dL 32.0-35.0 [facility] MCV [Entitic volume] by Auto mated countOrdered By: Terry Dudley on 01-31-2024 MCV (RBC) [Entitic vol] 91.4 fL Normal 80-100 [facility] Comment on above: Performed By: #### H S TROP, PTT, CMP, DDIMER, BNP, CK, PT, CBC #### [address] Monocyte distribution width [Entitic volume] in Blood by AutomatedOrdered By: Terry Dudley on 01-31-2024 Monocyte distribution width Auto (Bld) [Entitic vol] 14.85 % 0.00-20.00 [facility] Neutrophils [#/volume] in Bl ood by Automated countOrdered By: Terry Dudley on 01-31-2024 Neutrophils (Bld) [#/Vol] 14.0 10*3/uL High 1.8-7.7 [facility] Comment on above: Performed By: #### H S TROP, PTT, CMP, DDIMER, BNP, CK, PT, CBC #### [place] [address] [place] Nitrite Test strip Ql (U)Ord ered By: Terry Dudley on 01-31-2024 Nitrite Ql (U) Negative Negative [facility] No Panel InformationOrdered By: Terry Dudley on 01-31-2024 Estimated GFR (CKD-EPI) > 60.0 mL/Min [facility] Creatinine Clearance (Chem 119.17 [facility] Nucleated erythrocytes [Pres ence] in Blood by Automated countOrdered By: Terry Dudley on 01-31-2024 Nucleated RBC Auto Ql (Bld) 0.0 /100{WBC} 0-0.5 [facility] Partial Thromboplastin Timeo n 01-31-2024 aPTT Coag (Bld) [Time] 26.1 s Normal 25.1-36.5 [facility] Comment on above: Result Comment: A he matocrit value greater than 55% may lead to inaccurate results in coagulation testing. Patients having hematocrit values >55% require a special collection tube for coagulation studies. Please contact the laboratory at [phone] for redraw instructions. Performed By: #### H S TROP, PTT, CMP, DDIMER, BNP, CK, PT, CBC #### [facility] [address] Platelet mean volume [Entiti c volume] in Blood by Automated countOrdered By: Terry Dudley on 01-31-2024 Platelet mean volume (Bld) [Entitic vol] 8.7 fL Normal 6.3-10.7 [facility] Comment on above: Performed By: #### H S TROP, PTT, CMP, DDIMER, BNP, CK, PT, CBC #### [facility] [address] Platelets [#/volume] in Bloo d by Automated countOrdered By: Terry Dudley on 01-31-2024 Platelets (Bld) [#/Vol] 297 10*3/uL Normal 150-450 [facility] Comment on above: Performed By: #### H S TROP, PTT, CMP, DDIMER, BNP, CK, PT, CBC #### [facility] [address] [place] [address] [place] Potassium [Moles/volume] in Serum or PlasmaOrdered By: Terry Dudley on 01-31-2024 Potassium [Moles/Vol] 3.4 mmol/L Low 3.5-5.1 [facility] Comment on above: Performed By: #### H S TROP, PTT, CMP, DDIMER, BNP, CK, PT, CBC #### [facility] [address] Protein Test strip (U) [Mass /Vol]Ordered By: Terry Dudley on 01-31-2024 Protein (U) [Mass/Vol] Negative Negative [facility] Protein [Mass/volume] in Ser um or PlasmaOrdered By: Terry Dudley on 01-31-2024 Protein [Mass/Vol] 7.7 g/dL Normal 6.4-8.9 [facility] Comment on above: Performed By: #### H S TROP, PTT, CMP, DDIMER, BNP, CK, PT, CBC #### [facility] [address] Prothrombin time (PT)Ordered By: Terry Dudley on 01-31-2024 PT Coag (PPP) [Time] 14.0 s High 9.0-12.9 [facility] Comment on above: A hematocrit value g reater than 55% may lead to inaccurate results in coagulation testing. Patients having hematocrit values >55% require a special collection tube for coagulation studies. Please contact the laboratory at [phone] for redraw instructions. Result Comment: A he matocrit value greater than 55% may lead to inaccurate results in coagulation testing. Patients having hematocrit values >55% require a special collection tube for coagulation studies. Please contact the laboratory at [phone] for redraw instructions. Performed By: #### H S TROP, PTT, CMP, DDIMER, BNP, CK, PT, CBC #### [facility] [address] [place] [id number] [facility] Serum globulin measurement b y calculation (mass/volume)Ordered By: Terry Duldey on 01-31-2024 Globulin (S) [Mass/Vol] 3.0 g/dL Normal [facility] Comment on above: Performed By: #### H S TROP, PTT, CMP, DDIMER, BNP, CK, PT, CBC #### [facility] [address] [place] [address] Serum or plasma albumin/glob ulin mass ratioOrdered By: Terry Dudley on 01-31-2024 Albumin/Globulin [Mass ratio] 1.6 {ratio} Normal [facility] Comment on above: Performed By: #### H S TROP, PTT, CMP, DDIMER, BNP, CK, PT, CBC #### [address] Serum or plasma anion gap de terminationOrdered By: Terry Dudley on 01-31-2024 Anion gap [Moles/Vol] 8.3 mmol/L Normal 6.0-15.0 [facility] Comment on above: Performed By: #### H S TROP, PTT, CMP, DDIMER, BNP, CK, PT, CBC #### [address] Sodium [Moles/volume] in Ser um or PlasmaOrdered By: Terry Dudley on 01-31-2024 Sodium [Moles/Vol] 136 mmol/L Normal 136-145 [facility] Comment on above: Performed By: #### H S TROP, PTT, CMP, DDIMER, BNP, CK, PT, CBC #### [address] Specific gravity Test strip (U) [Rel density]Ordered By: Terry Dudley on 01-31-2024 Specific gravity (U) [Rel density] 1.005 1.001-1.03 0 [facility] Troponin I High Sensitivityo n 01-31-2024 Troponin I High Sensitivity 3.5 pg/mL Normal 0.0-15.0 [facility] Comment on above: Result Comment: PERF ORMED BY: [place] [address] PATHOLOGIST DIVERSITY SPECIALIST CARLOS HITCHCOCK M.D. Performed By: #### H S TROP, PTT, CMP, DDIMER, BNP, CK, PT, CBC #### [facility] [address] Troponin I.cardiac [Mass/vol ume] in Serum or Plasma by Detection limit <= 0.01 ng/Ordered By: Terry Dudley on 01-31-2024 Troponin I.cardiac DL <= 0.01 ng/mL [Mass/Vol] 3.5 pg/mL 0.0-15.0 [facility] Urea nitrogen [Mass/volume] in Serum or PlasmaOrdered By: Terry Dudley on 01-31-2024 Urea nitrogen [Mass/Vol] 10 mg/dL Normal 7-25 [facility] Comment on above: Performed By: #### H S TROP, PTT, CMP, DDIMER, BNP, CK, PT, CBC #### [facility] [address] Urinalysison 01-31-2024 Bilirubin,Urine Negative Normal Negative [facility] Comment on above: Order Comment: Name Collection Type:: Clean-Voided Midstream Performed By: #### U A, UHCG #### [address] Glucose Ql (U) Normal Normal Normal [facility] Comment on above: Order Comment: Name Collection Type:: Clean-Voided Midstream Performed By: #### U A, UHCG #### [place] [address] [place] Nitrite,Urine Negative Normal Negative [facility] Comment on above: Order Comment: Name Collection Type:: Clean-Voided Midstream Performed By: #### U A, UHCG #### [place] [id number] [place] Occult Blood,Urine Negative Normal Negative [facility] Comment on above: Order Comment: Name Collection Type:: Clean-Voided Midstream Performed By: #### U A, UHCG #### [place] [id number] [place] Protein,Urine Negative Normal Negative [facility] Comment on above: Order Comment: Name Collection Type:: Clean-Voided Midstream Performed By: #### U A, UHCG #### [address] Specificy [place],Urine 1.005 Normal 1.001-1.03 0 [facility] Comment on above: Order Comment: Name Collection Type:: Clean-Voided Midstream Performed By: #### U A, UHCG #### [address] Urobilinogen,Urine Normal Normal Normal [facility] Comment on above: Order Comment: Name Collection Type:: Clean-Voided Midstream Performed By: #### U A, UHCG #### [address] Urine appearanceOrdered By: Terry Dudley on 01-31-2024 Appearance (U) Clear Normal Clear [facility] Comment on above: Order Comment: Name Collection Type:: Clean-Voided Midstream Performed By: #### U A, CG #### [address] Urobilinogen Test strip (U) [Mass/Vol]Ordered By: Terry Dudley on 01-31-2024 Urobilinogen (U) [Mass/Vol] Normal mg/dL Normal [facility] pH of Urine by Test stripOrd ered By: Terry Dudley on 01-31-2024 pH (U) 6.5 [pH] Normal 5.0-9.0 [facility] Comment on above: Order Comment: Name Collection Type:: Clean-Voided Midstream Performed By: #### U A, CG #### [address] PAP ACOG PANEL 2: 23 to 31on 10-14-2021 . . Normal [facility] Comment on above: Performed By: #### P TT #### [facility] [address] [place] [address] Kaela Dimas Age Gdln ACOG Testing - Normal [facility] Comment on above: Performed By: #### P TT #### [facility] [address] [place] [address] Kaela Dimas DIAGNOSIS: Comment Normal [facility] Comment on above: Result Comment: NEGA TIVE FOR INTRAEPITHELIAL LESION OR MALIGNANCY. CELLULAR CHANGES ASSOCIATED WITH INFLAMMATION ARE PRESENT. Performed By: #### P TT #### [facility] [address] [place] [address] Kaela Dimas Methodology: Comment Normal [facility] Comment on above: Result Comment: This liquid based ThinPrep(R) pap test was screened with the use of an image guided system. Performed By: #### P TT #### [facility] [address] [place] [address] Kaela Dimas Note: Comment Normal [facility] Comment on above: Result Comment: The Pap smear is a screening test designed to aid in the detection of premalignant and malignant conditions of the uterine cervix. It is not a diagnostic procedure and should not be used as the sole means of detecting cervical cancer. Both false-positive and false-negative reports do occur. . Performed By: #### P TT #### [facility] [address] [place] [address] Kaela Dimas Performed by: Comment Normal [facility] Comment on above: Result Comment: Nancy Collins, Retail Stock Clerk (ASCP) Performed By: #### P TT #### [facility] [address] [place] [address] Kaela Dimas Reflex Criteria: Comment Normal [facility] Comment on above: Result Comment: The HPV DNA reflex criteria were not met with this specimen result therefore, no HPV testing was performed. . Performed By: #### P TT #### [facility] [address] [place] [address] Kaela Dimas Specimen adequacy: Comment Normal [facility] Comment on above: Result Comment: Sati sfactory for evaluation. Endocervical and/or squamous metaplastic cells (endocervical component) are present. Performed By: #### P TT #### [facility] [address] [place] [address] Kaela Dimas CBC AUTO DIFFon 02-07-2021 BASO # 0.1 103/ul Normal 0.0-0.1 [facility] Comment on above: Performed By: #### C BC #### [facility] [address] [place] [id number] Kaela Judie Basophils/100 WBC (Bld) 0.3 % Normal 0.2-2.0 [facility] Comment on above: Performed By: #### C BC #### [facility] [address] [place] [address] Kaela Judie EO # 0.1 103/ul Normal 0.0-0.7 [facility] Comment on above: Performed By: #### C BC #### [facility] [address] [place], [place] [address] Kaela Judie Eosinophils/100 WBC (Bld) 0.5 % Critically low 0.9-7.0 [facility] Comment on above: Performed By: #### C BC #### [facility] [address] [place] [address] Kaela Judie Erythrocyte distribution width (RBC) [Ratio] 12.3 % Normal 11.0-15.0 [facility] Comment on above: Performed By: #### C BC #### [facility] [address] [place] [address] Kaela Judie Hematocrit (Bld) [Volume fraction] 33.8 % Critically low 36.0-48.0 [facility] Comment on above: Performed By: #### C BC #### [facility] [address] [place], [place] [address] Kaela Judie Hemoglobin (Bld) [Mass/Vol] 11.6 g/dL Critically low 12.0-16.0 [facility] Comment on above: Performed By: #### C BC #### [facility] [address] [place] [address] Kaela Judie IG # 0.20 10e3/ul Critically high 0.00-0.03 [facility] Comment on above: Performed By: #### C BC #### [facility] [address] [place], [place] [address] Kaela Judie IG % 1.2 % Critically high 0.0-0.5 [facility] Comment on above: Performed By: #### C BC #### [facility] [address] [place], [place] [address] Kaela Judie LYMPH # 1.6 103/ul Normal 1.2-3.8 [facility] Comment on above: Performed By: #### C BC #### [facility] [address] [place], [place] [address] Kaela Judie Lymphocytes/100 WBC (Bld) 9.2 % Critically low 20.5-60.0 [facility] Comment on above: Performed By: #### C BC #### [facility] [address] [place], [place] [address] Kaela Judie MANUAL DIFF REQ NO Normal [facility] Comment on above: Performed By: #### C BC #### [facility] [address] [place], [place] [address] Kaela Judie MCH (RBC) [Entitic mass] 30.8 pg Normal 26.7-34.0 [facility] Comment on above: Performed By: #### C BC #### [facility] [address] [place] [address] Kaela Judie MCHC (RBC) [Mass/Vol] 34.3 g/dL Normal 29.9-35.2 [facility] Comment on above: Performed By: #### C BC #### [facility] [address] [place], [place] [address] Kaela Judie MCV (RBC) [Entitic vol] 89.7 fL Normal 81.0-99.0 [facility] Comment on above: Performed By: #### C BC #### [facility] [address] [place] [address] Kaela Judie MONO # 0.9 103/ul Critically high 0.3-0.8 [facility] Comment on above: Performed By: #### C BC #### [facility] [address] [place], [place] [address] Kaela Judie Monocytes/100 WBC (Bld) 5.5 % Normal 1.7-12.0 [facility] Comment on above: Performed By: #### C BC #### [facility] [address] [place], [place] [address] Kaela Judie NEUT # 14.1 103/ul Critically high 1.4-6.5 [facility] Comment on above: Performed By: #### C BC #### [facility] [address] [place] [address] Kaela Dimas Neutrophils/100 WBC (Bld) 83.3 % Critically high 43.0-75.0 [facility] Comment on above: Performed By: #### C BC #### [facility] [address] [place] [address] Kaela Dimas Platelet mean volume (Bld) [Entitic vol] 11.0 fL Normal 9.5-13.5 [facility] Comment on above: Performed By: #### C BC #### [facility] [address] [place] [address] Kaela Dimas PLT 192 103/ul Normal 150-450 [facility] Comment on above: Performed By: #### C BC #### [facility] [address] [place] [address] Kaela Dimas RBC 3.77 106/ul Critically low 4.20-5.40 [facility] Comment on above: Performed By: #### C BC #### [facility] [address] [place] [address] Kaela Dimas WBC 16.9 103/ul Critically high 4.0-11.0 [facility] Comment on above: Performed By: #### C BC #### [facility] [address] [place] [address] Kaela Dimas ASYMPTOMATIC COVID-19 ANTIGE Non 02-05-2021 EUA Statement SEE BELOW Normal [facility] Comment on above: Result Comment: This [...] sooner. Performed By: #### G TT3P #### [facility] [address] [place] [address] Kaela Dimas SARS-CoV-2 (COVID-19) RNA RIGOBERTO+probe Ql (Unsp spec) Negative Normal NEGATIVE [facility] Comment on above: Result Comment: Nega tive results are presumptive. They do not preclude infection and should not be used as the sole basis for treatment decisions. Additional confirmatory testing by a molecular method should be considered. Performed By: #### G TT3P #### [facility] [address] [place] [address] Kaela Judie CBC AUTO DIFFon 02-05-2021 BASO # 0.1 103/ul Normal 0.0-0.1 [facility] Comment on above: Performed By: #### C BC #### [facility] [address] [place] [address] Kaela Judie Basophils/100 WBC (Bld) 0.3 % Normal 0.2-2.0 [facility] Comment on above: Performed By: #### C BC #### [facility] [address] [place] [address] Kaela Judie EO # 0.1 103/ul Normal 0.0-0.7 [facility] Comment on above: Performed By: #### C BC #### [facility] [address] [place] [address] Kaela Judie Eosinophils/100 WBC (Bld) 0.3 % Critically low 0.9-7.0 [facility] Comment on above: Performed By: #### C BC #### [facility] [address] [place] [address] Kaela Judie Erythrocyte distribution width (RBC) [Ratio] 12.0 % Normal 11.0-15.0 [facility] Comment on above: Performed By: #### C BC #### [facility] [address] [place] [address] Kaela Dimas Hematocrit (Bld) [Volume fraction] 36.9 % Normal 36.0-48.0 [facility] Comment on above: Performed By: #### C BC #### [facility] [address] [place] [address] Kaela Dimas Hemoglobin (Bld) [Mass/Vol] 12.7 g/dL Normal 12.0-16.0 [facility] Comment on above: Performed By: #### C BC #### [facility] [address] [place] [address] Kaelastephanie Dimas IG # 0.19 10e3/ul Critically high 0.00-0.03 [facility] Comment on above: Performed By: #### C BC #### [facility] [address] [place] [address] Kaela Dimas IG % 1.0 % Critically high 0.0-0.5 [facility] Comment on above: Performed By: #### C BC #### [facility] [address] [place] [address] Kaela Dimas LYMPH # 1.4 103/ul Normal 1.2-3.8 [facility] Comment on above: Performed By: #### C BC #### [facility] [address] [place] [address] Kaela Dimas Lymphocytes/100 WBC (Bld) 7.6 % Critically low 20.5-60.0 [facility] Comment on above: Performed By: #### C BC #### [facility] [address] [place] [address] Kaela Dimas MANUAL DIFF REQ NO Normal [facility] Comment on above: Performed By: #### C BC #### [facility] [address] [place], [place] [address] Kaela Dimas MCH (RBC) [Entitic mass] 30.5 pg Normal 26.7-34.0 [facility] Comment on above: Performed By: #### C BC #### [facility] [address] [place] [address] Kaela Dimas MCHC (RBC) [Mass/Vol] 34.4 g/dL Normal 29.9-35.2 [facility] Comment on above: Performed By: #### C BC #### [facility] [address] [place], [place] [address] Kaela Dimas MCV (RBC) [Entitic vol] 88.5 fL Normal 81.0-99.0 [facility] Comment on above: Performed By: #### C BC #### [facility] [address] [place], [place] [address] Kaela Dimas MONO # 1.0 103/ul Critically high 0.3-0.8 [facility] Comment on above: Performed By: #### C BC #### [facility] [address] [place], [place] [address] Kaela Dimas Monocytes/100 WBC (Bld) 5.5 % Normal 1.7-12.0 [facility] Comment on above: Performed By: #### C BC #### [facility] [address] [place], [place] [address] Kaela Dimas NEUT # 15.7 103/ul Critically high 1.4-6.5 [facility] Comment on above: Performed By: #### C BC #### [facility] [address] [place], [place] [address] Kaela Dimas Neutrophils/100 WBC (Bld) 85.3 % Critically high 43.0-75.0 [facility] [facility] Comment on above: Performed By: #### C BC #### [facility] [address] [place], [place] [address] Kaela Dimas Platelet mean volume (Bld) [Entitic vol] 11.8 fL Normal 9.5-13.5 [facility] Comment on above: Performed By: #### C BC #### [facility] [address] [place], [place] [address] Kaelastephanie Sahuen PLT 226 103/ul Normal 150-450 [facility] Comment on above: Performed By: #### C BC #### [facility] [address] [place], [place] [address] Kaela Judie RBC 4.17 106/ul Critically low 4.20-5.40 [facility] Comment on above: Performed By: #### C BC #### [facility] [address] [address] Kaelastephanie Dimas WBC 18.5 103/ul Critically high 4.0-11.0 [facility] Comment on above: Performed By: #### C BC #### [facility] [address] [address] Kaelastephanie Dimas DRUG SCREEN RAPID (URINE)on 02-05-2021 AMP Negative Normal NEGATIVE [facility] Comment on above: Performed By: #### D RUGRPD #### [facility] [address] [place] [address] Kaela Judie BAR Negative Normal NEGATIVE [facility] Comment on above: Performed By: #### D RUGRPD #### [facility] [address] [place] [address] Kaela Judie BUP Negative Normal NEGATIVE [facility] Comment on above: Performed By: #### D RUGRPD #### [facility] [address] [place] [address] Kaela Judie BZO Negative Normal NEGATIVE [facility] Comment on above: Performed By: #### D RUGRPD #### [facility] [address] [place] [address] Kaela Judie JERRY Negative Normal NEGATIVE [facility] Comment on above: Performed By: #### D RUGRPD #### [facility] [address] [place] [address] Kaela Judie CUT-OFFS SEE BELOW Normal [facility] Comment on above: Result Comment: AMP [...] ng/mL Performed By: #### D RUGRPD #### [facility] [address] [address] Kaela Judie DRUG CUT HEADER DRUG CLASS TEST SYST EM CUT-OFF CONCENTRATIONS ARE FOLLOWS: Normal [facility] Comment on above: Performed By: #### D RUGRPD #### [facility] [address] [place] [address] Kaela Judie mAMP Negative Normal NEGATIVE [facility] Comment on above: Performed By: #### D RUGRPD #### [facility] [address] [place] [address] Kaela Judie MTD Negative Normal NEGATIVE [facility] Comment on above: Performed By: #### D RUGRPD #### [facility] [address] [place] [address] Kaela Judie OPI Negative Normal NEGATIVE [facility] Comment on above: Performed By: #### D RUGRPD #### [facility] [address] [place] [address] Kaela Judie OXY Negative Normal NEGATIVE [facility] Comment on above: Performed By: #### D RUGRPD #### [facility] [address] [place] [address] Kaela Judie PCP Negative Normal NEGATIVE [facility] Comment on above: Performed By: #### D RUGRPD #### [facility] [address] [place] [address] Kaela Judie PPX Negative Normal NEGATIVE [facility] Comment on above: Performed By: #### D RUGRPD #### [facility] [address] [place] [address] Kaela Judie TCA Negative Normal NEGATIVE [facility] Comment on above: Performed By: #### D RUGRPD #### [facility] [address] [place] [address] Kaela Judie THC Negative Normal NEGATIVE [facility] Comment on above: Performed By: #### D RUGRPD #### [facility] [address] [place] [address] Kaela Judie TYPE AND SCREENon 02-05-2021 TYPE AND SCREEN Negative Normal [facility] Comment on above: Performed By: #### P TT #### [facility] [address] [place] [address] Kaela Dimas GROUP B STREP CULTUREon S. agalactiae Ag Ql (Unsp spec) Culture Observations: NEGATIVE FOR GROUP B STREPTOCOCCUS. Normal [facility] Comment on above: Performed By: #### P TT #### [facility] [address] [place] [address] Kaela Dimas US PREG BIOPHY W NON [...] by: MICHELLE LANE Date: 2021-01-30 08:23 Normal [facility] US PREG GROWTHon 01-30-2021 US [...] MICHELLE LANE Date: 2021-01-30 08:25 Normal [facility] US PREG BIOPHY W NON STRESSo [...] MICHELLE LANE Date: 2021-01-23 07:22 Normal [facility] US PREG BIOPHY W NON STRESSo [...] MICHELLE LANE Date: 2021-01-16 07:31 Normal [facility] PROTEIN 24HR URINEon 021 T PROT, 24 HR UR 603.9 mg/24 hr Critically high 42.0-225.0 [facility] Comment on above: Performed By: #### G TT3P #### [facility] [address] [id number] Kaela Judie UR PROT 12.2 mg/dL Critically high <=12.0 [facility] Comment on above: Performed By: #### G TT3P #### [facility] [address] [place] [address] Kaela Judie UR TOT VOL 4950 ml/24 HR Normal [facility] Comment on above: Performed By: #### G TT3P #### [facility] [address] [place], [place] [address] Kaela Judie CBC AUTO DIFFon 01-13-2021 BASO # 0.0 103/ul Normal 0.0-0.1 [facility] Comment on above: Performed By: #### G TT3P #### [facility] [address] [place] [address] Kaela Judie Basophils/100 WBC (Bld) 0.2 % Normal 0.2-2.0 [facility] Comment on above: Performed By: #### G TT3P #### [facility] [address] [place] [address] Kaela Judie EO # 0.1 103/ul Normal 0.0-0.7 [facility] Comment on above: Performed By: #### G TT3P #### [facility] [address] [place] [address] Kaela Judie Eosinophils/100 WBC (Bld) 0.6 % Critically low 0.9-7.0 [facility] Comment on above: Performed By: #### G TT3P #### [facility] [address] [place] [address] Keala Judie Erythrocyte distribution width (RBC) [Ratio] 11.7 % Normal 11.0-15.0 [facility] Comment on above: Performed By: #### G TT3P #### [facility] [address] [place], [place] [address] Kaela Judie Hematocrit (Bld) [Volume fraction] 34.5 % Critically low 36.0-48.0 [facility] Comment on above: Performed By: #### G TT3P #### [facility] [address] [address] Kaela Judie Hemoglobin (Bld) [Mass/Vol] 12.1 g/dL Normal 12.0-16.0 [facility] Comment on above: Performed By: #### G TT3P #### [facility] [address] [place] [address] Kaela Judie IG # 0.20 10e3/ul Critically high 0.00-0.03 [facility] Comment on above: Performed By: #### G TT3P #### [facility] [address] [place] [address] Kaela Judie IG % 1.2 % Critically high 0.0-0.5 [facility] Comment on above: Performed By: #### G TT3P #### [facility] [address] [place] [address] Kaela Judie LYMPH # 1.5 103/ul Normal 1.2-3.8 [facility] Comment on above: Performed By: #### G TT3P #### [facility] [address] [place] [address] Kaela Judie Lymphocytes/100 WBC (Bld) 8.6 % Critically low 20.5-60.0 [facility] Comment on above: Performed By: #### G TT3P #### [facility] [address] [place] [address] Kaelastephanie Dimas MANUAL DIFF REQ NO Normal [facility] Comment on above: Performed By: #### G TT3P #### [facility] [address] [place] [address] Kaelastephanie Sahuen MCH (RBC) [Entitic mass] 30.6 pg Normal 26.7-34.0 [facility] Comment on above: Performed By: #### G TT3P #### [facility] [address] [place] [address] Kaela Judie MCHC (RBC) [Mass/Vol] 35.1 g/dL Normal 29.9-35.2 [facility] Comment on above: Performed By: #### G TT3P #### [facility] [address] [place] [address] Kaela Dimas MCV (RBC) [Entitic vol] 87.3 fL Normal 81.0-99.0 [facility] Comment on above: Performed By: #### G TT3P #### [facility] [address] [place] [address] Kaela Dimas MONO # 1.2 103/ul Critically high 0.3-0.8 [facility] Comment on above: Performed By: #### G TT3P #### [facility] [address] [place] [address] Kaela Dimas Monocytes/100 WBC (Bld) 6.6 % Normal 1.7-12.0 [facility] Comment on above: Performed By: #### G TT3P #### [facility] [address] [place] [address] Kaela Dimas NEUT # 14.4 103/ul Critically high 1.4-6.5 [facility] Comment on above: Performed By: #### G TT3P #### [facility] [address] [place] [address] Kaela Dimas Neutrophils/100 WBC (Bld) 82.8 % Critically high 43.0-75.0 [facility] Comment on above: Performed By: #### G TT3P #### [facility] [address] [place] [address] Kaela Dimas Platelet mean volume (Bld) [Entitic vol] 12.1 fL Normal 9.5-13.5 [facility] Comment on above: Performed By: #### G TT3P #### [facility] [address] [place] [address] Kaelastephanie Sahuen PLT 216 103/ul Normal 150-450 [facility] Comment on above: Performed By: #### G TT3P #### [facility] [address] [place] [address] Kaela Judie RBC 3.95 106/ul Critically low 4.20-5.40 [facility] Comment on above: Performed By: #### G TT3P #### [facility] [address] [place] [address] Kaela Judie WBC 17.4 103/ul Critically high 4.0-11.0 [facility] Comment on above: Performed By: #### G TT3P #### [facility] [address] [place], [place] [address] Kaela Judie CULTURE URINEon 01-13-2021 CULTURE URINE Culture Observations : LIGHT GROWTH OF MIXED GENITAL TINO. NO POTENTIAL PATHOGENS SEEN. Normal [facility] Comment on above: Performed By: #### P TT #### [facility] [address] [place], [place] [address] Kaela Judie LDHon 01-13-2021 LDH 194 U/L Normal 122-222 [facility] Comment on above: Performed By: #### U ELIZABETH, LDH #### [facility] [address] [place], [place] [address] Kaelastephanie Sahuen PROF 14(COMP METB)on 021 Albumin [Mass/Vol] 2.7 g/dL Critically low 3.5-5.0 [facility] Comment on above: Performed By: #### G TT3P #### [facility] [address] [place], [place] [address] Kaela Judie Albumin/Globulin [Mass ratio] 0.9 {ratio} Normal [facility] Comment on above: Performed By: #### G TT3P #### [facility] [address] [place], [place] [address] Kaela Judie ALP [Catalytic activity/Vol] 134 U/L Critically high 38-126 [facility] Comment on above: Performed By: #### G TT3P #### [facility] [address] [place], [place] [address] Kaela Judie ALT [Catalytic activity/Vol] 21 U/L Normal 9-52 [facility] Comment on above: Performed By: #### G TT3P #### [facility] [address] [place], [place] [address] Kaela Judie Anion gap [Moles/Vol] 11.6 mmol/L Normal [facility] Comment on above: Performed By: #### G TT3P #### [facility] [address] [place], [place] [address] Kaela Judie AST [Catalytic activity/Vol] 17 U/L Normal 14-36 [facility] Comment on above: Performed By: #### G TT3P #### [facility] [address] [place] [address] Kaela Judie Bilirubin [Mass/Vol] 0.2 mg/dL Normal 0.2-1.3 [facility] Comment on above: Performed By: #### G TT3P #### [facility] [address] [place] [address] Kaela Judie Calcium [Mass/Vol] 9.1 mg/dL Normal 8.4-10.2 [facility] Comment on above: Performed By: #### G TT3P #### [facility] [address] [place] [address] Kaela Judie Chloride [Moles/Vol] 106 mmol/L Normal 98-107 [facility] Comment on above: Performed By: #### G TT3P #### [facility] [address] [place] [address] Kaela Judie CO2 [Moles/Vol] 25.8 mmol/L Normal 22.0-30.0 [facility] Comment on above: Performed By: #### G TT3P #### [facility] [address] [place] [address] Kaela Judie Creatinine [Mass/Vol] 0.53 mg/dL Normal 0.52-1.04 [facility] Comment on above: Performed By: #### G TT3P #### [facility] [address] [place] [address] Kaela Judie EGFR-AF YEMENI >60 Normal >=60 [facility] Comment on above: Performed By: #### G TT3P #### [facility] [address] [place] [address] Kaela Judie EGFR-NON AF YEMENI >60 Normal >=60 [facility] Comment on above: Performed By: #### G TT3P #### [facility] [address] [place] [address] Kaela Judie Globulin (S) [Mass/Vol] 3.0 g/dL Normal [facility] Comment on above: Performed By: #### G TT3P #### [facility] [address] [place], [place] [address] Kaela Judie Glucose [Mass/Vol] 85 mg/dL Normal 74-106 [facility] Comment on above: Performed By: #### G TT3P #### [facility] [address] [place], [place] [address] Kaela Judie Potassium [Moles/Vol] 3.4 mmol/L Normal 3.4-5.0 [facility] Comment on above: Performed By: #### G TT3P #### [facility] [address] [address] Kaela Judie Protein [Mass/Vol] 5.7 g/dL Critically low 6.1-8.2 [facility] Comment on above: Performed By: #### G TT3P #### [facility] [address] [place] [address] Kaela Judie Sodium [Moles/Vol] 140 mmol/L Normal 137-145 [facility] Comment on above: Performed By: #### G TT3P #### [facility] [address] [place] [address] Kaela Judie Urea nitrogen [Mass/Vol] 10.0 mg/dL Normal 7.0-17.0 [facility] Comment on above: Performed By: #### G TT3P #### [facility] [address] [place], [place] [address] Kaela Judie Urea nitrogen/Creatinine [Mass ratio] 18.9 mg/mg Normal [facility] Comment on above: Performed By: #### G TT3P #### [facility] [address] [place] [address] Kaela Judie PTTon 01-13-2021 aPTT Coag (Bld) [Time] 23.6 s Normal 22.3-36.2 [facility] Comment on above: Performed By: #### P TT #### [facility] [address] [place], [place] [address] Kaela Judie URIC ACID SERUMon 01-13-2021 Urate [Mass/Vol] 3.7 mg/dL Normal 2.5-6.2 [facility] Comment on above: Performed By: #### U ELIZABETH, LDH #### [facility] [address] [place] [address] Kaela Judie UA (CLEAN/CATCH) CONTROL PANEL OPERATOR CRUDE UNIT/MICRO I F IND.on 01-12-2021 Bilirubin Ql (U) Negative Normal NEGATIVE [facility] Comment on above: Performed By: #### U MICRO, UACSIND #### [facility] [address] [place] [address] Kaela Judie Clarity (U) CLEAR Normal CLEAR [facility] Comment on above: Performed By: #### U MICRO, UACSIND #### [facility] [address] [place] [address] Kaela Judie Color (U) LT. YELLOW Normal YELLOW [facility] Comment on above: Performed By: #### U MICRO, UACSIND #### [facility] [address] [place] [address] Kaela Judie Glucose Ql (U) Negative Normal NEGATIVE [facility] Comment on above: Performed By: #### U MICRO, UACSIND #### [facility] [address] [place] [address] Kaela Judie Hemoglobin Ql (U) Negative Normal NEGATIVE [facility] Comment on above: Performed By: #### U MICRO, UACSIND #### [facility] [address] [place] [address] Kaela Judie Ketones Ql (U) Negative Normal NEGATIVE [facility] Comment on above: Performed By: #### U MICRO, UACSIND #### [facility] [address] [place] [address] Kaela Judie LEUKOCYTES TRACE Abnormal NEGATIVE [facility] Comment on above: Performed By: #### U MICRO, UACSIND #### [facility] [address] [place] [address] Kaela Judie Nitrite Ql (U) Negative Normal NEGATIVE [facility] Comment on above: Performed By: #### U MICRO, UACSIND #### [facility] [address] [place] [address] Kaela Judie pH (U) 6.0 [pH] Normal 5-9 [facility] Comment on above: Performed By: #### U MICRO, UACSIND #### [facility] [address] [place] [address] Kaela Dimas SPEC GRAVITY 1.025 Normal 1.005-<=1. 025 [facility] Comment on above: Performed By: #### U MICRO, UACSIND #### [facility] [address] [place] [address] Kaelastephanie Dimas UA PROTEIN Negative Normal NEGATIVE/ TRACE [facility] Comment on above: Performed By: #### U MICRO, UACSIND #### [facility] [address] [place] [address] Kaela Dimas UR MICRO IND INDICATED Normal [facility] Comment on above: Performed By: #### U MICRO, UACSIND #### [facility] [address] [place] [address] Kaela Dimas Urobilinogen Qn (U) 0.2 {Sylvester'U}/dL Normal 0.2 - 1. 0 [facility] Comment on above: Performed By: #### U MICRO, UACSIND #### [facility] [address] [place] [address] Kaela Dimas URINE MICROSCOPIC ONLYon BACTERIA TRACE Abnormal NONE SEEN [facility] Comment on above: Performed By: #### U MICRO, UACSIND #### [facility] [address] [place] [address] Kaela Dimas Bacteria identified Cx Nom (U) INDICATED Normal [facility] Comment on above: Performed By: #### U MICRO, UACSIND #### [facility] [address] [place] [address] Kaela Judie CAST NONE SEEN Normal NONE SEEN [facility] Comment on above: Performed By: #### U MICRO, UACSIND #### [facility] [address] [place] [address] Kaela Dimas Crystals LM Nom (Urine sed) NONE SEEN Normal NONE SEEN [facility] Comment on above: Performed By: #### U MICRO, UACSIND #### [facility] [address] [place] [address] Kaelastephanie Dimas Epithelial cells LM Ql (Urine sed) FEW Abnormal NONE SEEN /RARE [facility] Comment on above: Performed By: #### U MICRO, UACSIND #### [facility] [address] [place] [address] Kaela Judie MUCOUS SMALL Abnormal NONE SEEN [facility] Comment on above: Performed By: #### U MICRO, UACSIND #### [facility] [address] [place] [address] Kaela Judie RBC 0-2 Normal 0-2 [facility] Comment on above: Performed By: #### U MICRO, UACSIND #### [facility] [address] [place] [address] Kaela Judie WBC 2-5 Abnormal NONE SEEN [facility] Comment on above: Performed By: #### U MICRO, UACSIND #### [facility] [address] [place] [address] Kaela Judie US PREG BIOPHY W NON [...] IRINEO COMBS Date: 2021-01-09 07:18 Normal [facility] US PREG GROWTHon 12-31-2020 US PREG [...] cm; 32 weeks 2 days; % EFW: 4.005558, 39% FL/AC: 0.487773 FL/BPD: 0.892193 HC/AC: 1.520651 GESTATIONAL AGE: Age by EDC: 32 weeks 1 day SUSANNA by EDC: 02/24/2021 Age by US: 32 weeks 0 days SUSANNA by US: 02/25/2021 IMPRESSION: Normal interval growth Electronically authenticated by: IRINEO COMBS Date: 2020-12-31 09:38 Normal [facility] GTT 3 HR PREGon 12-12-2020 Glucose [Mass/Vol] 86 mg/dL Normal 74-106 [facility] Comment on above: Performed By: #### G TT3P #### [facility] [address] [place] [address] Kaela Judie Glucose [Mass/Vol] 179 mg/dL Normal [facility] Comment on above: Performed By: #### G TT3P #### [facility] [address] [place] [address] Kaela Judie Glucose [Mass/Vol] 131 mg/dL Normal [facility] Comment on above: Performed By: #### G TT3P #### [facility] [address] [place] [address] Kaela Judie Glucose [Mass/Vol] 145 mg/dL Normal [facility] Comment on above: Performed By: #### G TT3P #### [facility] [address] [place] [address] Kaela Judie GLUCOSE - 1HRon 12-05-2020 Glucose [Mass/Vol] 151 mg/dL Critically high 74-106 [facility] Comment on above: Result Comment: sherri ent was approximately 5 minutes late for draw Performed By: #### G LU1HR #### [facility] [address] [place] [address] Kaela Judie HEMOGRAM AND PLATELon 2020 Hematocrit (Bld) [Volume fraction] 38.4 % Normal 36.0-48.0 [facility] Comment on above: Performed By: #### G TT3P #### [facility] [address] [place], [place] [address] Kaela Dimas Hemoglobin (Bld) [Mass/Vol] 13.2 g/dL Normal 12.0-16.0 [facility] Comment on above: Performed By: #### G TT3P #### [facility] [address] [place] [address] Kaela Dimas MCH (RBC) [Entitic mass] 30.8 pg Normal 26.7-34.0 [facility] Comment on above: Performed By: #### G TT3P #### [facility] [address] [place] [address] Kaela Dimas MCHC (RBC) [Mass/Vol] 34.4 g/dL Normal 29.9-35.2 [facility] Comment on above: Performed By: #### G TT3P #### [facility] [address] [place] [address] Kaela Dimas MCV (RBC) [Entitic vol] 89.5 fL Normal 81.0-99.0 [facility] Comment on above: Performed By: #### G TT3P #### [facility] [address] [place], [place] [address] Kaelastephanie Dimas PLT 238 103/ul Normal 150-450 [facility] Comment on above: Performed By: #### G TT3P #### [facility] [address] [place] [address] Kaelastephanie Dimas RBC 4.29 106/ul Normal 4.20-5.40 [facility] Comment on above: Performed By: #### G TT3P #### [facility] [address] [place], [place] [address] Kaelastephanie Dimas WBC 17.0 103/ul Critically high 4.0-11.0 [facility] Comment on above: Performed By: #### G TT3P #### [facility] [address] [place], [place] [address] Kaelastephanie Dimas US PREG GROWTHon 12-03-2020 US [...] cm; 28 weeks 0 days; % EFW: 2.952819, 2 lbs. 10 oz., 40% FL/AC: 0.028910 FL/BPD: 0.235348 HC/AC: 1.687110 GESTATIONAL AGE: Age by EDC: 28 weeks 1 day SUSANNA by EDC: 02/24/2021 Age by US: 20 weeks 2 days SUSANNA by US: 02/23/2021 IMPRESSION: Normal interval growth Electronically authenticated by: IRINEO COMBS Date: 2020-12-03 10:04 Normal [facility] Vital Signs Date Time Vital Sign Value Performing Clinician Facility 08-22-2024 15:09-0500 Body mass index (BMI) [Ratio] 41.45 kg/m2 [employer] Work Phone: [facility] 08-22-2024 15:09-0500 Body weight 106.14 kg [employer] Work Phone: [facility] 08-22-2024 15:09-0500 Diastolic blood pressure 80 mm[Hg] [employer] Work Phone: [facility] 08-22-2024 15:09-0500 Systolic blood pressure 132 mm[Hg] [employer] Work Phone: [facility] 08-14-2024 16:26-0500 Body mass index (BMI) [Ratio] 41.65 kg/m2 [employer] Work Phone: [facility] 08-14-2024 16:26-0500 Body weight 106.65 kg Scotty Jacquie DO Work Phone: [facility] 08-14-2024 16:26-0500 Diastolic blood pressure 80 mm[Hg] Scotty Jacquie DO Work Phone: [facility] 08-14-2024 16:26-0500 Systolic blood pressure 130 mm[Hg] Scotty Jacquie DO Work Phone: [facility] 07-31-2024 15:22-0500 Body mass index (BMI) [Ratio] 41.81 kg/m2 Madisyn KERNS Work Phone: [facility] 07-31-2024 15:22-0500 Body weight 107.05 kg Madisyn KERNS Work Phone: [facility] 07-31-2024 15:22-0500 Diastolic blood pressure 72 mm[Hg] Madisyn KERNS Work Phone: [facility] 07-31-2024 15:22-0500 Systolic blood pressure 122 mm[Hg] Madisyn KERNS Work Phone: [facility] 07-17-2024 16:19-0500 Body mass index (BMI) [Ratio] 41.81 kg/m2 Scotty Jacquie DO Work Phone: [facility] 07-17-2024 16:19-0500 Body weight 107.05 kg Scotty Jacquie DO Work Phone: [facility] 07-17-2024 16:19-0500 Diastolic blood pressure 72 mm[Hg] Scotty Jacquie DO Work Phone: [facility] 07-17-2024 16:19-0500 Systolic blood pressure 122 mm[Hg] Scotty Jacquie DO Work Phone: [facility] 07-14-2024 11:13-0500 Body height 160 cm Aniceto Fox MD Work Phone: [facility] 07-14-2024 11:13-0500 Body mass index (BMI) [Ratio] 40.74 kg/m2 Aniceto Fox MD Work Phone: [facility] 07-14-2024 11:13-0500 Body weight 104.33 kg Aniceto Fox MD Work Phone: [facility] 07-14-2024 11:13-0500 Diastolic blood pressure 84 mm[Hg] Aniceto Fox MD Work Phone: [facility] 07-14-2024 11:13-0500 Heart rate 104 /min Aniceto Fox MD Work Phone: [facility] 07-14-2024 11:13-0500 Systolic blood pressure 144 mm[Hg] Aniceto Fox MD Work Phone: [facility] 06-15-2024 15:34-0500 Body mass index (BMI) [Ratio] 40.6 kg/m2 Madisyn KERNS Work Phone: [facility] 06-15-2024 15:34-0500 Body weight 103.96 kg Madisyn KERNS Work Phone: [facility] 06-15-2024 15:34-0500 Diastolic blood pressure 76 mm[Hg] Madisyn KERNS Work Phone: [facility] 06-15-2024 15:34-0500 Systolic blood pressure 122 mm[Hg] Madisyn KERNS Work Phone: [facility] 05-18-2024 12:07-0400 Body mass index (BMI) [Ratio] 39.5 kg/m2 Scotty Jacquie DO Work Phone: [facility] 05-18-2024 12:07-0400 Body weight 101.15 kg Scotty Jacquie DO Work Phone: [facility] 05-18-2024 12:07-0400 Diastolic blood pressure 78 mm[Hg] Scotty Jacquie DO Work Phone: [facility] 05-18-2024 12:07-0400 Systolic blood pressure 124 mm[Hg] Scotty Jacquie DO Work Phone: [facility] 04-20-2024 08:46-0400 Body mass index (BMI) [Ratio] 39.41 kg/m2 Madisyn Gaona PA Work Phone: [facility] 04-20-2024 08:46-0400 Body weight 100.92 kg Madisyn Gaona PA Work Phone: [facility] 04-20-2024 08:46-0400 Diastolic blood pressure 82 mm[Hg] Madisyn Gaona PA Work Phone: [facility] 04-20-2024 08:46-0400 Systolic blood pressure 122 mm[Hg] Madisyn Gaona PA Work Phone: [facility] 03-22-2024 11:34-0400 Body mass index (BMI) [Ratio] 39.5 kg/m2 Scotty Jacquie DO Work Phone: [facility] 03-22-2024 11:34-0400 Body weight 101.15 kg Scotty Jacquie DO Work Phone: [facility] 03-22-2024 11:34-0400 Diastolic blood pressure 74 mm[Hg] Scotty Jacquie DO Work Phone: [facility] 03-22-2024 11:34-0400 Systolic blood pressure 122 mm[Hg] Scotty Jacquie DO Work Phone: [facility] 01-31-2024 18:14-0400 Diastolic blood pressure 74 mm[Hg] MD Jacques Mccarthy Work Phone: [facility] 01-31-2024 18:14-0400 Heart rate 100 /min MD Jacques Mccarthy Work Phone: [facility] 01-31-2024 18:14-0400 Respiratory rate 18 /min MD Jacques Mccarthy Work Phone: [facility] 01-31-2024 18:14-0400 SaO2% (BldA) [Mass fraction] 100 % MD Jacques Mccarthy Work Phone: [facility] 01-31-2024 18:14-0400 Systolic blood pressure 156 mm[Hg] MD Jacques Mccarthy Work Phone: [facility] 01-31-2024 14:04-040 Body height 160.02 cm MD Jacques Mccarthy Work Phone: [facility] 01-31-2024 14:04-0400 Body temperature 97.4 [degF] MD Jacques Mccarthy Work Phone: [facility] 01-31-2024 14:04040 Body weight 98.5 kg MD Jacques Mccarthy Work Phone: [facility] Encounters Encounter Date Encounter Type Care Provider Facility Start: 08-22-2024 End: 08-22-2024 ambulatory SCOTTY JACQUIE Not Available Start: 08-22-2024 End: 08-22-2024 flow sheet Scotty Jacquie DO Work Phone: [facility] Comment on above: Third trimester preg red; 34 weeks gestation of ; Insulin controlled gestational diabetes mellitus (GDM) during , antepartum Start: 08-22-2024 End: 08-22-2024 Bamboo flowsheet Scotty Jacquie DO Work Phone: [facility] Start: 08-22-2024 End: 08-22-2024 Bamboo flowsheet Scotty Jacquie DO Work Phone: [facility] Start: 08-16-2024 End: 08-16-2024 Documentation procedure Judie Stearns [facility] Start: 08-15-2024 End: 08-15-2024 Office outpatient visit 25 minutes Nubia Lundberg MD Work Phone: [facility] Comment on above: 32 weeks gestation o f (Primary Dx); Gestational diabetes mellitus (GDM) in third trimester, gestational diabetes method of control unspecified; Chronic hypertension affecting ; BMI 40.0-44.9, adult ([facility]); arrhythmia affecting , antepartum; Polyhydramnios affecting ; Separation of chorion and amnion membranes, antepartum Start: 08-15-2024 End: 08-15-2024 Orders Only Judiechristal Stearns [facility] Comment on above: Abnormal ultrasonic finding [...] Aniceto Fox MD Work Phone: [facility] [place] Comment on above: Gestational diabetes mellitus (GDM), antepartum, gestational diabetes method of control unspecified (Primary Dx); Chronic hypertension affecting Start: 07-14-2024 End: 07-14-2024 ambulatory [facility] Start: 07-13-2024 End: 07-13-2024 Clinisync Result Encounter Madisyn KERNS Work Phone: [facility] Unsolicited Start: 07-13-2024 End: 07-13-2024 Clinisync Result Encounter Madisyn KERNS Work Phone: [facility] Unsolicited Start: 06-21-2024 End: 06-21-2024 Chart abstracting Aniceto Fox MD Work Phone: [facility] Start: 06-15-2024 End: 06-15-2024 flow sheet Madisyn KERNS Work Phone: [facility] Comment on above: Second trimester pre gnancy; 24 weeks gestation of ; Diabetes mellitus screening; Elevated blood pressure affecting in first trimester, antepartum; High blood pressure affecting in first trimester, antepartum; Heartburn during in second trimester Start: 06-15-2024 End: 06-15-2024 ambulatory MADISYN GOANA Not Available Start: 06-15-2024 End: 06-15-2024 Bamboo flowsheet Madiysn KERNS Work Phone: [facility] Start: [...] Start: 04-20-2024 End: 04-20-2024 Bamboo flowsheet Madisyn EKRNS Work Phone: [facility] Start: 04-20-2024 End: 04-20-2024 Office outpatient visit 15 minutes Madisyn KERNS Work Phone: [facility] Comment on above: Screening, , for anatomic survey; Well woman exam with routine gynecological exam; Screen for STD (sexually transmitted disease); Vaginal discharge; Second trimester Start: 04-20-2024 End: 04-20-2024 Patient encounter procedure Madisyn KERNS Work Phone: [facility] Start: 04-20-2024 End: 04-20-2024 ambulatory MADISYN GAONA Not Available Start: 03-22-2024 End: 03-22-2024 Bamboo flowsheet Scotty Jacquie DO Work Phone: [facility] Start: 03-22-2024 End: 03-22-2024 [...] patient visit MD Jacques Mccarthy Work Phone: [facility] Work Phone: Start: 10-08-2021 End: 10-08-[address] SCOTTY DHILLON Facility:[facility] Start: 02-19-[address] SCOTTY DHILLON Facility :[facility] Start: 02-11-2021 End: 02-11-[address] SCOTTY DHILLON Facility:[facility] Start: 02-06-2021 Evaluation and manag ement of inpatient DR SCOTTY DHLILON Facility:[facility] Start: 02-05-2021 End: 02-09-2021 Evaluation and [...] Work Phone: Start: 08-04-2024 [facility] (CLEAN/CATCH) CONTROL PANEL OPERATOR CRUDE UNIT/MICRO IF IND. Scotty Dhillon DO Work Phone: [...] Author Start: 08-15-2025 Tobacco Screening Tobacco Screening [facility] Start: 07-14-2025 Adult BMI Screening Adult BMI Screen ing [facility] Start: 06-21-2025 Adult BMI Screening Adult BMI Screen ing [facility] Start: 08-30-2024 End: 08-30-2024 Patient encounter procedure 08/30/2024 10:30 AM EST Office Visit [facility] [address] [address] Eliud Wilson MD [address] [place] [address] [facility] Start: 08-29-2024 End: 08-29-2024 Patient encounter procedure 08/29/2024 2:20 PM EST Routine [facility] [address] [place] [phone] Scotty Dhillon, DO [address] [place] [address] [facility] Start: 08-22-2024 End: 08-22-2024 Patient encounter procedure 08/22/2024 2:30 PM EST Routine [facility] [address] [place] [id number] Scotty Dhillon, DO [address] [place] [address] [facility] Start: 08-14-2024 End: 08-14-2024 Patient encounter procedure 08/14/2024 3:30 PM EST Routine [facility] [address] [place] [phone] Scotty Dhillon, DO [address] [place] [address] [facility] Start: 07-31-2024 End: 07-31-2024 Patient encounter procedure [facility] Comment on above: Arrived Start: 07-17-2024 End: 07-17-2024 Patient encounter procedure 07/17/2024 3:20 PM EST Routine [facility] [address] [place] [phone] Scotty Dhillon, DO [address] [place] [address] [facility] Start: 07-17-2024 End: 07-17-2024 Professional / ancillary services management 07/17/2024 3:00 PM EST Ancillary Procedure [facility] [address] [phone] [facility] Start: 07-17-2024 End: 07-17-2025 US biophysical profile w non stress test US biophysical profile w non stress test Imaging Routine Third trimester Gestational diabetes mellitus (GDM) in third trimester, gestational diabetes method of control unspecified Hypertension, unspecified type (CMS/HCC) Expected: 07/17/2024 (Approximate), Expires: 07/17/2025 [facility] Comment on above: Expected: 07/17/2024 (Approximate), Expires: 07/17/2025 Start: 07-17-2024 End: 07-17-2025 US for US OB SCAN FOR GROWTH Imaging Routine Third trimester Gestational diabetes mellitus (GDM) in third trimester, gestational diabetes method of control unspecified Hypertension, unspecified type (CMS/HCC) Expected: 07/17/2024 (Approximate), Expires: 07/17/2025 [facility] Work Phone: Comment on above: Expected: 07/17/2024 (Approximate), Expires: 07/17/2025 Start: 07-14-2024 End: 07-14-2024 Patient encounter procedure [facility] [place] Start: 06-15-2024 End: 06-15-2024 Patient encounter procedure 06/15/2024 3:30 PM EST Routine [facility] [address] [facility] [place] [address] Madisyn Gaona PA [address] [place] [address] [facility] Start: 06-15-2024 End: 06-15-2025 CBC panel - Blood by Automated count CBC Lab Routine Diabetes mellitus screening Expected: 06/15/2024 (Approximate), Expires: 06/15/2025 [facility] Work Phone: Comment on above: Expected: 06/15/2024 (Approximate), Expires: 06/15/2025 Start: 06-15-2024 End: 06-15-2025 Measurement of glucose 1 hour after glucose challenge for glucose tolerance test Glucose tolerance, 1 hour Lab Routine Diabetes mellitus screening Expected: 06/15/2024 (Approximate), Expires: 06/15/2025 [facility] Comment on above: Expected: 06/15/2024 (Approximate), Expires: 06/15/2025 Start: 05-18-2024 End: 05-18-2024 Patient encounter procedure 05/18/2024 11:40 AM EDT Office Visit [facility] [address] [facility] [place] [address] Scotty Dhillon, DO [address] [place] [address] [facility] Start: 05-18-2024 End: 05-18-2024 Professional / ancillary services management 05/18/2024 10:30 AM EDT Ancillary Procedure [facility] [address] [facility] [place] [address] [facility] Start: 04-20-2024 End: [...] Start: 04-20-2024 End: 04-20-2024 [facility] Comment on above: Arrived Start: 04-02-2024 Influenza vaccination Influenza Vacc ine [facility] Start: 03-22-2024 End: 03-22-2024 Patient encounter procedure 03/22/2024 11:20 AM EDT Routine [facility] [address] [place] [address] Scotty Dhillon, [address] [place] [address] Arrived [facility] Comment on above: Arrived Start: 2018 Screening for malign ant neoplasm of cervix Pap Smear [facility] Start: 2016 DTaP,Tdap and Td Vaccines (1 - Tdap) DTaP,Tdap and Td Vaccines (1 - Tdap) [facility] Start: 2015 Adult BMI Follow Up Plan Adult BMI Follow Up Plan [facility] Start: 2015 Adult BMI Screening Adult BMI Screen ing [facility] Start: 2009 Depression Screening Depression Scre ening [facility] Start: 2009 Tobacco Screening Tobacco Screening [facility] CBC W Auto Different ial panel - Blood CBC and differential Lab Routine Abnormal CBC Ordered: 03/22/2024 [facility] Work Phone: Comment on above: Ordered: 03/22/2024 Patient Education - Th e Second Month High Blood Pressure ED [facility] Work Phone: Patient referral [facility] Work Phone: Payers Date Payer Category Payer Medicaid [id number] 2024 Medicaid [id number] 2024 Self-pay 2023 Private Health Insurance [id number] 2023 Private Health Insurance [id number] 2022 Medicaid HMO [employer] [id number] 1997 Unknown [id number] 2.16.840.1.858659.3.579.2. 593 1997 Unknown [id number] 2.16.840.1.502289.3.579.2. 593 1997 Unknown [id number] 2.16.840.1.174468.3.579.2. 593 1997 Unknown [id number] 2.16.840.1.292170.3.579.2. 593 1997 Unknown [id number] 2.16.840.1.676787.3.579.2. 593 1997 Unknown [id number] 2.16.840.1.386754.3.579.2. 593 1997 Unknown [id number] 2.16.840.1.064508.3.579.2. 593 1997 Unknown [id number] 2.16.840.1.522426.3.579.2. 593 1997 Unknown [id number] 2.16.840.1.590310.3.579.2. 593 1997 Unknown [id number] 2.16.840.1.421198.3.579.2. 593 1997 Unknown [id number] 2.16.840.1.650268.3.579.2. 593 1997 Unknown [id number] 2.16.840.1.927240.3.579.2. 593 1997 Unknown [id number] 2.16.840.1.526062.3.579.2. 593 1997 Unknown [id number] 2.16.840.1.582619.3.579.2. 593 1997 Unknown [id number] 2.16.840.1.565910.3.579.2. 593 1997 Unknown [id number] 2.16.840.1.079388.3.579.2. 593 1997 Unknown [id number] 2.16.840.1.324884.3.579.2. 593 1997 Unknown [id number] 2.16.840.1.109903.3.579.2. 593 1997 Unknown [id number] 2.16.840.1.533158.3.579.2. 1286 1997 Unknown [id number] 2.16.840.1.820902.3.579.2. 1286 1997 Unknown [id number] 2.16.840.1.670832.3.579.2. 1286 1997 Unknown [id number] 2.16.840.1.459126.3.579.2. 9 1997 Unknown [id number] 2.16.840.1.997200.3.579.2. 9 1997 Unknown [id number] 2.16.840.1.373857.3.579.2. 1259 1997 Unknown [id number] 2.16.840.1.414637.3.579.2. 9 1997 Unknown [id number] 2.16.840.1.690172.3.579.2. 9 1997 Unknown [id number] 2.16.840.1.616972.3.579.2. 1259 1997 Unknown [id number] 2.16.840.1.269873.3.579.2. 1259 1997 Unknown [id number] 2.16.840.1.333213.3.579.2. 9 1997 Unknown [id number] 2.16.840.1.233106.3.579.2. 1259 1997 Unknown [id number] 2.16.840.1.932516.3.579.2. 9 1997 Unknown [id number] 2.16.840.1.628544.3.579.2. 9 1997 Unknown [id number] 2.16.840.1.733103.3.579.2. 1259 1959 Unknown [id number] 1959 Unknown [id number] 1959 Unknown [id number] Unknown [id number] 2.16.840.1.099193.3.579.2. 531 Social History Date Type Detail Facility Start: 01-13-2024 [facility] Start: 01-31-[address] [facility] Never smoked tobacco (finding) [facility] Start: 1997 Sex Assigned At Female F [facility] Tobacco smoking stat [facility] Tobacco smoking consumption unknown [facility] Start: 1997 Sex assigned at Not on file [facility] Start: 08-23-2020 End: 06-21-2024 Gender identity Not on file [facility] Start: 10-07-2020 End: 07-14-2024 Tobacco smoking status NHIS Ex-smoker [facility] History of tobacco use Current smoker [facility] Start: 10-07-2020 End: 07-14-2024 Tobacco use and exposure Smokeless tobacco non-user [facility] Start: 06-21-2024 End: 08-15-2024 Alcoholic beverage intake Ex-drinker (finding) [facility] Start: 08-23-2020 End: 06-21-2024 History of Social function [facility] Childcare Unknown [facility] Start: 10-07-2020 End: 07-14-2024 Tobacco Comment quit 3 years ago [facility] Start: 08-23-2020 Sex Female (finding) [facility] History of tobacco use Cigarette Smoker P [facility] Medical Equipment Procedure Code Equipment Code Equipment Original Text Equipment Identifier Dates 1 strip by In Vi tro route Daily Use in the morning prior to breakfast, 1 hour after each meal for a total of 4times daily. [id number] Start: 07-17-2024 End: 08-16-2024 1 each by In Vit ro route Daily Use to check FSBS four times daily [id number] Start: 07-17-2024 End: 08-16-2024 Inject 1 each un jany the skin Daily [id number] Start: 08-23-2024 End: 09-22-2024 Inject 1 each un jany the skin See administration instructions Use four times daily with insulin pen. [id number] Start: 08-22-2024 End: 08-23-2024 Clinical Notes 02-05-2021 [...] nursing note reviewed. Exam conducted with a director of transportation present. Vitals: Estimated body mass index is [...] times a day. Pt has appt at [facility] on 08/30/24. Reviewed glucose log with [...] Scotty Dhillon DO documented in this encounter [facility] 08-16-2024 History of Present illness Narrative Called patient 08/15/24 and 08/16/24 to inform patient of date and time for the Pediatric Cardiology Consultation. L/M for patient to return my call. documented in this encounter [facility] 08-15-2024 History of Present illness Narrative Video Visit via Real-time Synchronous Audiovisual Provider Location: [facility] AT [address] [address] Patient Location: Other [place] Office Patient Location Travel Service Consultant: None Video Visit Consent Statement: I discussed [...] that there are some limitations compared to keeq-rb-hrtm evaluations. We elected to proceed. REASON FOR [...] outflow tracts on ultrasound BMI 40.0-44.9, adult ([facility]) Past Medical History: Diagnosis Date Anxiety [...] and the other consultants, we search on [employer] and all the available care everywhere epic I did review all the imaging studies of the patient available on EMR, ordered by the primary care physician and the other furniture rental consultant HABITS: Patient activity no restrictions, diet [...] more likely to fail compared to insulin. exterminator data on children whose mothers took oral [...] Chronic hypertension affecting 4. BMI 40.0-44.9, adult ([facility]) Denies signs and symptoms of preeclampsia [...] patient is in complete care of her block captain. Patient does have ultrasound appointment scheduled with us. Thank you for allowing me to participate in Samantha Taylor . If there any questions please do not hesitate to contact us. Sincerely, Nubia Lundberg MD, FACOG (she/hers) [facility] [address] [place] [address] documented in this encounter [facility] 08-14-2024 History of Present illness Narrative [...] nursing note reviewed. Exam conducted with a director of transportation present. Vitals: Estimated body mass index is [...] Scotty Dhillon DO documented in this encounter [facility] 07-31-2024 History of Present illness Narrative Reason for Appointment: Patient ID: Samantha Taylor is a 29 y.o. female who presents for Routine Visit Patient presents today for Return OB appointment. MEDICATIONS Current Outpatient Medications Medication Instructions Alcohol Swabs (Alcohol Prep Pad) 70 % pads 1 Pad, Topical, Daily, Use four times daily to check FSBS. Blood Glucose Monitoring Suppl (Potential Glucometer) w/Device kit 1 kit, Does not [...] LUIS F Tarango documented in this encounter [facility] 07-17-2024 History of Present illness [...] Scotty Dhillon DO documented in this encounter [facility] 07-14-2024 History of Present illness [...] yes Have you been seen here at [facility] in a previous ? no Recent ER visits or hospitalizations? no Bring blood sugar log or meter with you today? (Please bring them with you for every visit at [facility]) no Flu vaccine (Jun-September)? no [...] outflow tracts on ultrasound BMI 40.0-44.9, adult ([facility]) Past Medical History: Diagnosis Date Anxiety [...] and the other consultants, we search on [employer] and all the available care everywhere epic I did review all the imaging studies of the patient available on EMR, ordered by the primary care physician and the other furniture rental consultant HABITS: Patient activity no restrictions, diet [...] and therefore has been rescheduled at our [facility] site. DISPOSITION: At this point the patient is in complete care of her block captain. Patient does have ultrasound appointment scheduled with us. Thank you for allowing me to participate in Samantha Taylor . If there any questions please do not hesitate to contact us. Sincerely, ANICETO FOX MD documented in this encounter [facility] [employer] 06-15-2024 History of Present illness Narrative Reason [...] LUIS F Tarango documented in this encounter [facility] 05-18-2024 History of Present illness [...] nursing note reviewed. Exam conducted with a director of transportation present. Vitals: Estimated body mass index is [...] of MSAFP orders to have drawn at [facility] in [place]. Documented by Angela Butt LPN on behalf of: Scotty Dhillon DO documented in this encounter [facility] 04-20-2024 History of Present illness [...] LUIS F Tarango documented in this encounter [facility] 03-22-2024 History of Present illness [...] nursing note reviewed. Exam conducted with a director of transportation present. Vitals: Estimated body mass index is [...] or undercooked meat, and stay away from [facility]. Patient has been consulted regarding any [...] Scotty Dhillon DO documented in this encounter [facility] 02-05-2021 Note OPERATIVE NOTE OPERATION DATE: 02-06-21 ANESTHETIC:Spinal with Duramorph. ACCOUNTANT TAX:ELVIA Prajapati PREOPERATIVE DIAGNOSIS: 1. Intrauterine at 39 [...] to the Recovery Room in stable condition. [facility] Signed and Approved by: DR SCOTTY DHILLON . 02/11/2021 11:15:00 [facility] 02-05-2021 Note DISCHARGE SUMMARY Discharge [...] Tylenol, any abdominal pain unrelieved with narcotics. [facility] Signed and Approved by: DR SCOTTY DHILLON . 02/25/2021 23:13:00 [facility] Evaluation note No assessment inform ation available [facility] Work Phone: Evaluation note [...] Chronic hypertension affecting documented in this encounter [facility] SystemEvaluation note* Diagnosis Third trimester [...] trimester state, incidental documented in this encounter [facility] HealthcareEvaluation note* Diagnosis 32 weeks gestation of - Primary Gestational diabetes mellitus (GDM) in third trimester, gestational diabetes method of control unspecified Chronic hypertension affecting BMI 40.0-44.9, adult ([facility]) arrhythmia affecting , antepartum Abnormality in heart rate/rhythm, antepartum condition or complication Polyhydramnios affecting Separation of chorion and amnion membranes, antepartum documented in this encounter [facility] SystemEvaluation note* Diagnosis Abnormal ultrasonic finding on screening of mother, antepartum- Primary documented in this encounter [facility] SystemEvaluation note* Diagnosis Third trimester state, incidental 34 weeks gestation of Insulin controlled gestational diabetes mellitus (GDM) during , antepartum documented in this encounter [facility] HealthcareInstructionsNot on filedocumented in this encounterProPomerene [facility] SystemInstructionsNot on filedocumented in this encounterUniversity [facility]als [facility] SystemInstructions* Attachments The following attachments cannot be sent through Care Everywhere. * Preeclampsia ([place]) * labor ([place]) documented in this encounterProPome[facility] SystemInstructionsNot on file documented in this encounterUniversity [facility] SystemInstructionsNot on file documented in this encounterUniversity [facility]als [facility] Summary Purpose Family History [...] and content) DATE CREATED AUTHOR 10/15/2021 [facility] DATE CREATED AUTHOR AUTHOR'S ORGANIZ ATION 02/19/2024 [facility] DATE CREATED AUTHOR AUTHOR'S ORGANIZ ATION 07/17/2024 [facility] DATE CREATED AUTHOR AUTHOR'S ORGANIZ ATION 08/18/2024 [facility] DATE CREATED AUTHOR AUTHOR'S ORGANIZ ATION 08/18/2024 [facility] DATE CREATED AUTHOR AUTHOR'S ORGANIZ ATION 08/24/2024 [facility] EPIC Care Teams (unrecognized sec tion and content) Team Status: Active Member Role Status Dates Jacques Mccarthy MD Primary Care Provider Active Team Status: Inactive Member Role Status Dates Jacques Mccarthy MD Primary Care Provider Active Start: January 31, 2024 End: January 31, 2024 Terry Dudley DO Emergency Provider Active St art: January 31, 2024 End: January 31, 2024 Children Teacher Relationship Specialty Start Date End Date Jacques Mccarthy MD [address] [place] [facility] [address] PCP - General Family Medicine 02/08/24 Children Teacher Relationship Specialty Start Date End Date Jacques Mccarthy MD [address] [place] [facility] [address] PCP - General Family Medicine 02/08/24 Children Teacher Relationship Specialty Start Date End Date Jacques Mccarthy MD PCP - General Family Medicine 10/07/20 Children Teacher Relationship Specialty Start Date End Date Jacques Mccarthy MD [address] [place] [facility] [address] PCP - General Family Medicine 02/08/24 Children Teacher Relationship Specialty Start Date End Date Jacques Mccarthy MD [address] [place] [facility] [address] PCP - General Family Medicine 02/08/24 Children Teacher Relationship Specialty Start Date End Date Jacques Mccarthy MD [address] [place] [facility] [address] PCP - General Family Medicine 02/08/24 Children Teacher Relationship Specialty Start Date End Date Jacques Mccarthy MD PCP - General Family Medicine 10/07/20 Children Teacher Relationship Specialty Start Date End Date Jacques Mccarthy MD [address] [place] [facility] [address] PCP - General Family Medicine 02/08/24 Children Teacher Relationship Specialty Start Date End Date Jacques Mccarthy MD [address] [place] [facility] [address] PCP - General Family Medicine 02/08/24 Children Teacher Relationship Specialty Start Date End Date Jacques Mccarthy MD [address] [place] [facility] [address] PCP - General Family Medicine 02/08/24 Children Teacher Relationship Specialty Start Date End Date Jacques Mccarthy MD [address] [place] [facility] [address] PCP - General Family Medicine 02/08/24 Children Teacher Relationship Specialty Start Date End Date Jacques Mccarthy MD [address] [place] [facility] [address] PCP - General Family Medicine 02/08/24 Children Teacher Relationship Specialty Start Date End Date Jacques Mccarthy MD [address] [place] [facility] [address] PCP - General Family Medicine 02/08/24 Children Teacher Relationship Specialty Start Date End Date Jacques Mccarthy MD [address] [place] [facility] [address] PCP - General Family Medicine 02/08/24 Children Teacher Relationship Specialty Start Date End Date aJcques Mccarthy MD [address] [place] [address] PCP - General Family Medicine 02/08/24 Children Teacher Relationship Specialty Start Date End Date Jacques Mccarthy MD PCP - General Family Medicine 10/07/20 Children Teacher Relationship Specialty Start Date End Date Jacques Mccarthy MD PCP - General Family Medicine 10/07/20 Children Teacher Relationship Specialty Start Date End Date Jacques Mccarthy MD PCP - General Family Medicine 10/07/20 Children Teacher Relationship Specialty Start Date End Date Jacques Mccarthy MD [address] [place] [address] PCP - [facility] 02/08/24 Goals (unrecognized section and content) Goals [...] THE PRIMARY CLINICAL RECORDS. [facility]. provides no warranty or guarantee of the accuracy or completeness of information in this document.
[2024-08-30 08:10] LABS: Bilirubin Urine NEGATIVE (NEGATIVE); Blood Urine NEGATIVE (NEGATIVE); Clarity Urine CLEAR (CLEAR); Color Urine YELLOW (YELLOW); Glucose Urine UA NEGATIVE (NEGATIVE); Ketones Urine 15 mg/dL (NEGATIVE); Leukocyte Esterase Urine NEGATIVE (NEGATIVE); Nitrite Urine NEGATIVE (NEGATIVE); Protein Urine 30 mg/dL (NEG/TRACE); Specific Gravity Urine >=1.030 (1.005-1.025); Urobilinogen Urine 0.2 EU/dL (0.2-1.0)
[2024-08-30 08:12] LABS: Urine Microscopic Indicated YES
[2024-08-30 08:19] LABS: Bacteria Urine SMALL #/HPF (NONE SEEN); Mucus Urine LARGE (NONE SEEN); RBC Urine 0-2 #/HPF (0-2); WBC Urine 0-2 #/HPF (NONE SEEN)
[2024-08-30 08:20] LABS: Cast Seen? NONE SEEN #/LPF (NONE SEEN); Crystals Seen? None Seen #/HPF (None Seen); Squamous Epithelial Cell Urine MANY #/LPF (NONE/RARE); Urine Culture Indicated YES
[2024-08-30] MEDS: ONDANSETRON PF 4 MG/2 ML VIAL IV (08:43)
[2024-08-30] MEDS: LABETALOL HCL 100 MG TABLET 300 MG PO (08:43)
[2024-08-30] MEDS: 0.9 % SODIUM CHLORIDE 1,000 ML 1000 ML IV (08:43)
[2024-08-30 08:45] LABS: Alanine Aminotransferase 30 U/L (14-59); Albumin Globulin Ratio 0.7; Albumin Level 2.8 g/dL (3.4-5.0); Alkaline Phosphatase 156 U/L (46-116); Aspartate Amino Transferase 18 U/L (15-37); BUN Creatinine Ratio 20.4; Bilirubin Total 0.5 mg/dL (0.2-1.0); Chloride 102 mmol/L (98-107); Estimated GFR (African America >60 (>=60 mL/min/1.73m^2); Estimated GFR (Non-African Ame >60 (>=60 mL/min/1.73m^2); Globulin 4.2 g/dL; Glucose 112 mg/dL (74-106); Sodium 137 mmol/L (136-145)
[2024-08-30] MEDS: PROMETHAZINE HCL 12.5 MG in 0.9 % SODIUM CHLORIDE 50 ML 202 MG IV (08:49)
[2024-08-30 09:57] LABS: Influenza Virus A Antigen Negative; Influenza Virus B Antigen Negative; Internal Control Within Normal Limits
--- NOTE | 2024-08-30 13:42 | US_ITS ---
The [address] [address] Patient Name: RADAMES BENJAMIN MRN: [id number] date: 1995 Sex: F Assigned Patient Location: [facility] Current Patient Location: [facility] Accession/Order Number: [id number] Exam Date: 08/30/2024 13:43 Report Date: 08/30/2024 14:27 At the request of: SCOTTY SULLIVAN Procedure: US OB BPP w non-stress Ultrasound biophysical profile CLINICAL: Evaluate well-being. Clinical gestational age of 34 weeks 6 days. TECHNIQUE: Dedicated ultrasound imaging of the fetus was performed to include the swamper's evaluation of biophysical profile. FINDINGS: Comparison: Ultrasound 08/24/2024 FETUS: There is a single living intrauterine fetus in vertex presentation. heart rate of 151 beats per minute. PLACENTA: The placenta is anterior in location. AMNIOTIC FLUID: The amniotic fluid index is 17.46 cm, with maximum vertical pocket of 7.12 cm. BIOPHYSICAL PROFILE: motion: 2 out of 2. tone: 2 out of 2. breathin out of 2. Amniotic fluid volume: 2 out of 2. Total score: 8 out of 8. OTHER FINDINGS: None. US/US OB BPP w non-stress IMPRESSION: 1. Single viable fetus in vertex presentation with heart rate of 151 beats per minute. 2. Total biophysical profile score of 8 out of 8. 3. Amniotic fluid index of 17.46 cm, with maximum vertical pocket of 7.12 cm. This is between the 50th and 95th percentile for clinical gestational age. Amniotic fluid index on prior study 08/24/2024 was 28.09 cm. Electronically authenticated by: GREGORIA TRAYLOR Date: 08/30/2024 14:27
== END 2024-08-30 14:50 | disposition home or self-care (01) ==
LOC: ER 06:49 → FBC 06:56
PROVIDERS: Admitting Provider Obstetrics & Gynecology; Emergency Provider Emergency Medicine; PCP Family Medicine; Visit Provider Obstetrics & Gynecology
DX: O21.9 Vomiting of pregnancy, unspecified (principal); Z3A.00 Weeks of gestation of pregnancy not specified; O16.9 Unspecified maternal hypertension, unspecified trimester
CPT/HCPCS: 36415; 59025; 76818; 80053; 81001; 87086; 87804; 96374; 96375; G0378; J2405; J2550

== ENCOUNTER 2024-09-04 02:03 | Outpatient (OUT) | payer OTHER, MEDICAID, SELFPAY ==
--- OUTSIDE RECORDS SUMMARY | 2024-09-04 02:06 | XMS_ITS | CCD ---
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 Role Phone JACQUIE, DR FAJARDO Consulting [...] MIGUEL ÁNGEL, DR HANNA Primary Care Unavailable [place], DR IRINEO [facility] Unavailable JACQUIE, DR [...] [facility] Unavailable MIGUEL ÁNGEL, DR HANNA [facility] Care Unavailable JACQUIE, DR FAJARDO Attending Unavailable JACQUIE, DR FAJARDO Consulting Unavailable JACQUIE, DR FAJARDO Attending Unavailable HOY, DR HANNA [facility] Care Unavailable JACQUIE, DR FAJARDO Admitting Unavailable MD Jacques Mccarthy Primary Care Provider [phone] DO Terry Dudley Emergency Provider [phone] Terry Dudley Admitting Unavailable Terry Dudley Attending Unavailable Jacques Mccarthy Primary Care Unavailable Jacques Mccarthy MD Primary Care Provider [phone] Jacques Mccarthy MD Primary Care Provider [phone] ANICETO FOX Attending Unavailable SCOTTY DHILLON Referring [...] Test Name Value Interpretation Reference Range Facility [facility] UA (CLEAN/CATCH) FINANCIAL INSTITUTION BRANCH MANAGER/KEYLA RO IF IND.on 08-30-2024 BILIRUBIN URINE Negative NEGATIVE [facility] BLOOD URINE Negative NEGATIVE [facility] Clarity (U) CLEAR CLEAR [facility] Color (U) YELLOW YELLOW [facility] GLUCOSE URINE UA Negative NEGATIVE mg/dL [facility] Interpretation and review of laboratory results Abnormal [facility] Ketones Ql (U) 15 mg/dL Abnormal NEGATIVE [facility] Leukocyte esterase Test strip Ql (U) Negative NEGATIVE [facility] NITRITE URINE Negative NEGATIVE [facility] pH (U) 6.0 [pH] 5.0 - 9.0 [facility] Protein (U) [Mass/Vol] 30 mg/dL Abnormal NEG/TRACE NO [facility] SPECIFIC GRAVITY URINE >=1.030 Abnormal 1.005 - 1.025 [facility] URINE MICROSCOPIC INDICATED YES [facility] UROBILINOGEN URINE 0.2 EU/dL 0.2 - 1.0 EU/dL [facility] US OB BPP W NON-STRESS on 08-30-2024 [place] [address] Ultrasound Report Signed Patient: SAMANTHA BENJAMIN MR#: [id number] : 1995 Acct:[id number] Age/Sex: 29 / F ADM Date: 08/30/24 Loc: [facility] 250-[address]: Scotty Dhillon D.O. Ordering Physician: Scotty Dhillon D.O. Date of Service: 08/30/24 Procedure(s): US OB BPP w non-stress Accession Number(s): [id number] cc: Scotty Dhillon D.O.; Jacques Mccarthy M.D. [address] [address] Patient Name: SAMANTHA BENJAMIN MRN: [id number] date: 1995 Sex: F Assigned Patient Location: [facility] Current Patient Location: [facility] Accession/Order Number: [id number] Exam Date: 08/30/2024 13:43 Report Date: 08/30/2024 14:27 At the request of: SCOTTY DHILLON Procedure: US OB BPP w non-stress Ultrasound biophysical profile CLINICAL: Evaluate well-being. Clinical gestational age of 34 weeks 6 days. TECHNIQUE: Dedicated ultrasound imaging of the fetus was performed to include the government relations director's evaluation of biophysical profile. FINDINGS: Comparison: Ultrasound [...] Signed By: 08/30/24 1430 DD/ 1427 TD/TT: Decorator Consultant: [facility] Radiology, Radiologi MD barb - 08/30/2024 [place] [address] Ultrasound Report Signed Patient: SAMANTHA BENJAMIN MR#: [id number] : 1995 Acct:[id number] Age/Sex: 29 / F ADM Date: 08/30/24 Loc: [facility] 250-[address]: Scotty Dhillon D.O. Ordering Physician: Jacquie,Scotty D.O. Date of Service: 08/30/24 Procedure(s): US OB BPP w non-stress Accession Number(s): [id number] cc: Scotty Dhillon D.O.; Jacques Mccarthy M.D. [place] [address] Patient Name: SAMANTHA BENJAMIN MRN: [facility]:[id number] date: 1995 Sex: F Assigned Patient Location: [facility] Current Patient Location: [facility] Accession/Order Number: [id number] Exam Date: 08/30/2024 13:43 Report Date: 08/30/2024 14:27 At the request of: SCOTTY DHILLON Procedure: US OB BPP w non-stress Ultrasound biophysical profile CLINICAL: Evaluate well-being. Clinical gestational age of 34 weeks 6 days. TECHNIQUE: Dedicated ultrasound imaging of the fetus was performed to include the government relations director's evaluation of biophysical profile. FINDINGS: Comparison: Ultrasound [...] Signed By: 08/30/24 1430 DD/ 1427 TD/TT: Decorator Consultant: [facility] Radiology Study observation (narrative) [facility] US OB BPP W NON-STRESS Ordered By: Radiologist Radiology on 08-30-2024 [facility] Work Phone: Urinalysis macro (dipstick) panel (U)on 08-29-2024 Bilirubin, UA Negative Negative - 4(70) +++ mg/dL [facility] Blood, UA Negative Negative - 50 Hardeep/mcL [facility] Clarity, UA Clear [facility] Color, UA Yellow [facility] Glucose, UA Positive Negative - 1999(110) ++++ mg/dL [facility] Comment on above: 100 Interpretation and review of laboratory results Abnormal [facility] Ketones, UA Negative Negative - 160(16) ++++ mg/dL [facility] Leukocytes, UA Negative Negative - 500+++ Renee/mcL [facility] Nitrite, UA Negative Negative - Positive [facility] pH, UA 7 5 - 9 [facility] Protein, UA Positive Negative - 1999(20) ++++ mg/dL [facility] Comment on above: 30 Spec Grav, UA 1.02 1 - 1.03 [facility] Urobilinogen, UA 1.0 0.2 - 12 mg/dL [facility] Urinalysis macro (dipstick) panel (U)on 08-22-2024 Bilirubin, UA Negative Negative - 4(70) +++ mg/dL [facility] Blood, UA Negative Negative - 50 Hardeep/mcL [facility] Clarity, UA Clear [facility] Color, UA Yellow [facility] Glucose, UA Negative Negative - 1999(110) ++++ mg/dL [facility] Interpretation and review of laboratory results Normal [facility] Ketones, UA Negative Negative - 160(16) ++++ mg/dL [facility] Leukocytes, UA Negative Negative - 500+++ Renee/mcL [facility] Nitrite, UA Negative Negative - Positive [facility] pH, UA 7 5 - 9 [facility] Protein, UA Negative Negative - 1999(20) ++++ mg/dL [facility] Spec Grav, UA 1.015 1 - 1.03 [facility] Urobilinogen, UA 0.2 0.2 - 12 mg/dL [facility] Urinalysis macro (dipstick) panel (U)on 08-14-2024 Bilirubin, UA Negative Negative - 4(70) +++ mg/dL [facility] Blood, UA Positive Negative - 50 Hardeep/mcL [facility] Comment on above: trace-intact Clarity, UA Clear [facility] Color, UA Yellow [facility] Glucose, UA Negative Negative - 1999(110) ++++ mg/dL [facility] Interpretation and review of laboratory results Abnormal [facility] Ketones, UA Positive Negative - 160(16) ++++ mg/dL [facility] Comment on above: 40 Leukocytes, UA Negative Negative - 500+++ Renee/mcL [facility] Nitrite, UA Negative Negative - Positive [facility] pH, UA 6 5 - 9 [facility] Protein, UA Trace Negative - 1999(20) ++++ mg/dL [facility] Spec Grav, UA 1.02 1 - 1.03 [facility] Urobilinogen, UA 0.2 0.2 - 12 mg/dL [facility] ALL CBC WITH AUTO DIFFon BASOPHILS ABSOLUTE AUTO 0.1 [facility] Basophils/100 WBC (Bld) 0.3 % 0.2 - 2.0 % [facility] Eosinophils/100 WBC (Bld) 0.6 % Low 0.9 - 7.0 % [facility] Erythrocyte distribution width (RBC) [Ratio] 12.2 % 11.0 - 15.0 % [facility] Hematocrit (Bld) [Volume fraction] 36.7 % 36.0 - 48.0 % [facility] Hemoglobin (Bld) [Mass/Vol] 12.5 g/dL 12.0 - 16.0 g/dL [facility] IMMATURE GRANULOCYTES ABS AUTO 0.33 High [facility] Immature granulocytes/100 WBC (Bld) 2 % High 0.0 - 0.5 % [facility] Interpretation and review of laboratory results Abnormal [facility] LYMPHOCYTES ABSOLUTE AUTO 1.6 [facility] Lymphocytes/100 WBC (Bld) 9.9 % Low 20.5 - 60.0 % [facility] MCH (RBC) [Entitic mass] 29.7 pg 26.7 - 34.0 pg [facility] MCHC (RBC) [Mass/Vol] 34.1 g/dL 29.9 - 35.2 g/dL [facility] MCV (RBC) [Entitic vol] 87.2 fL 81.0 - 99.0 fL [facility] MONOCYTES ABSOLUTE AUTO 1 High [facility] Monocytes/100 WBC (Bld) 6.3 % 1.7 - 12.0 % [facility] NEUTROPHILS ABSOLUTE AUTO 13.2 High [facility] Neutrophils/100 WBC (Bld) 80.9 % High 43.0 - 75.0 % [facility] Platelet mean volume (Bld) [Entitic vol] 10.5 fL 9.5 - 13.5 fL [facility] EO # 0.1 [facility] PLT 247 [facility] RBC 4.21 [facility] WBC 16.3 High [facility] ALL CBC WITH AUTO DIFFon BASOPHILS ABSOLUTE AUTO 0.1 [facility] Basophils/100 WBC (Bld) 0.3 % 0.2 - 2.0 % [facility] Eosinophils/100 WBC (Bld) 0.2 % Low 0.9 - 7.0 % [facility] Erythrocyte distribution width (RBC) [Ratio] 12.1 % 11.0 - 15.0 % [facility] Hematocrit (Bld) [Volume fraction] 35.3 % Low 36.0 - 48.0 % [facility] Hemoglobin (Bld) [Mass/Vol] 12.1 g/dL 12.0 - 16.0 g/dL [facility] IMMATURE GRANULOCYTES ABS AUTO 0.31 High [facility] Immature granulocytes/100 WBC (Bld) 1.7 % High 0.0 - 0.5 % [facility] Interpretation and review of laboratory results Abnormal [facility] LYMPHOCYTES ABSOLUTE AUTO 1.4 [facility] Lymphocytes/100 WBC (Bld) 7.9 % Low 20.5 - 60.0 % [facility] MCH (RBC) [Entitic mass] 29.8 pg 26.7 - 34.0 pg [facility] MCHC (RBC) [Mass/Vol] 34.3 g/dL 29.9 - 35.2 g/dL [facility] MCV (RBC) [Entitic vol] 86.9 fL 81.0 - 99.0 fL [facility] MONOCYTES ABSOLUTE AUTO 1.3 High [facility] Monocytes/100 WBC (Bld) 7.1 % 1.7 - 12.0 % [facility] NEUTROPHILS ABSOLUTE AUTO 15.1 High [facility] Neutrophils/100 WBC (Bld) 82.8 % High 43.0 - 75.0 % [facility] Platelet mean volume (Bld) [Entitic vol] 10.5 fL 9.5 - 13.5 fL [facility] EO # 0 [facility] PLT 217 [facility] RBC 4.06 Low [facility] WBC 18.2 High [facility] UA (CLEAN/CATCH) FINANCIAL INSTITUTION BRANCH MANAGER/KEYLA RO IF IND.on 08-04-2024 BILIRUBIN URINE Negative NEGATIVE [facility] BLOOD URINE Negative NEGATIVE [facility] Clarity (U) CLEAR CLEAR [facility] Color (U) YELLOW YELLOW [facility] GLUCOSE URINE UA 500 mg/dL Abnormal NEGATIVE [facility] Interpretation and review of laboratory results Abnormal [facility] Ketones Ql (U) Negative NEGATIVE mg/dL [facility] Leukocyte esterase Test strip Ql (U) Negative NEGATIVE [facility] NITRITE URINE Negative NEGATIVE [facility] pH (U) 6.0 [pH] 5.0 - 9.0 [facility] PROTEIN URINE Negative NEG/TRACE mg/dL [facility] SPECIFIC GRAVITY URINE 1.025 1.005 - 1.025 [facility] URINE MICROSCOPIC INDICATED NO [facility] UROBILINOGEN URINE 0.2 EU/dL 0.2 - 1.0 EU/dL [facility] Urinalysis macro (dipstick) panel (U)on 07-31-2024 Bilirubin, UA Negative Negative - 4(70) +++ mg/dL [facility] Blood, UA Positive Negative - 50 Hardeep/mcL [facility] Comment on above: small Clarity, UA Clear [facility] Color, UA Yellow [facility] Glucose, UA Positive Negative - 1999(110) ++++ mg/dL [facility] Comment on above: 250 Interpretation and review of laboratory results Abnormal [facility] Ketones, UA Negative Negative - 160(16) ++++ mg/dL [facility] Leukocytes, UA Negative Negative - 500+++ Renee/mcL [facility] Nitrite, UA Negative Negative - Positive [facility] pH, UA 6 5 - 9 [facility] Protein, UA Trace Negative - 2000(20) ++++ mg/dL [facility] Spec Grav, UA 1.02 1 - 1.03 [facility] Urobilinogen, UA 0.2 0.2 - 12 mg/dL [facility] Urinalysis macro (dipstick) panel (U)on 07-17-2024 Bilirubin, UA Negative Negative - 4(70) +++ mg/dL [facility] Blood, UA Negative Negative - 50 Hardeep/mcL [facility] Clarity, UA Clear [facility] Color, UA Yellow [facility] Glucose, UA Positive Negative - 1999(110) ++++ mg/dL [facility] Comment on above: 500 Interpretation and review of laboratory results Abnormal [facility] Ketones, UA Positive Negative - 160(16) ++++ mg/dL [facility] Comment on above: TRACE Leukocytes, UA Negative Negative - 500+++ Renee/mcL [facility] Nitrite, UA Negative Negative - Positive [facility] pH, UA 5.5 5 - 9 [facility] Protein, UA Negative Negative - 1999(20) ++++ mg/dL [facility] Spec Grav, UA 1.02 1 - 1.03 [facility] Urobilinogen, UA 0.2 0.2 - 12 mg/dL [facility] Glucose random or fasting- P OCTon 07-14-2024 External Glucose Fasting Or Random (Fbs) 169 [facility] ALL CBC WITH AUTO DIFFon BASOPHILS ABSOLUTE AUTO 0.1 [facility] Basophils/100 WBC (Bld) 0.3 % 0.2 - 2.0 % [facility] Eosinophils/100 WBC (Bld) 0.3 % Low 0.9 - 7.0 % [facility] Erythrocyte distribution width (RBC) [Ratio] 12.1 % 11.0 - 15.0 % [facility] Hematocrit (Bld) [Volume fraction] 37.3 % 36.0 - 48.0 % [facility] Hemoglobin (Bld) [Mass/Vol] 12.7 g/dL 12.0 - 16.0 g/dL [facility] IMMATURE GRANULOCYTES ABS AUTO 0.32 High [facility] Immature granulocytes/100 WBC (Bld) 1.8 % High 0.0 - 0.5 % [facility] Interpretation and review of laboratory results Abnormal [facility] LYMPHOCYTES ABSOLUTE AUTO 1.5 [facility] Lymphocytes/100 WBC (Bld) 8.3 % Low 20.5 - 60.0 % [facility] MCH (RBC) [Entitic mass] 30.3 pg 26.7 - 34.0 pg [facility] MCHC (RBC) [Mass/Vol] 34 g/dL 29.9 - 35.2 g/dL [facility] MCV (RBC) [Entitic vol] 89 fL 81.0 - 99.0 fL [facility] MONOCYTES ABSOLUTE AUTO 0.9 High [facility] Monocytes/100 WBC (Bld) 5.2 % 1.7 - 12.0 % [facility] NEUTROPHILS ABSOLUTE AUTO 15 High [facility] Neutrophils/100 WBC (Bld) 84.1 % High 43.0 - 75.0 % [facility] Platelet mean volume (Bld) [Entitic vol] 10.4 fL 9.5 - 13.5 fL [facility] TBH EO # 0.1 [facility] TB PLT 255 [facility] RBC 4.19 Low [facility] WBC 17.8 High [facility] Urinalysis macro (dipstick) panel (U)on 06-15-2024 Bilirubin, UA Negative Negative - 4(70) +++ mg/dL [facility] Blood, UA Negative Negative - 50 Hardeep/mcL [facility] Clarity, UA Clear [facility] Color, UA Yellow [facility] Glucose, UA Positive Negative - 1999(110) ++++ mg/dL [facility] Interpretation and review of laboratory results Abnormal [facility] Ketones, UA Negative Negative - 160(16) ++++ mg/dL [facility] Leukocytes, UA Positive Negative - 500+++ Renee/mcL [facility] Nitrite, UA Negative Negative - Positive [facility] pH, UA 5.5 5 - 9 [facility] Protein, UA Negative Negative - 1999(20) ++++ mg/dL [facility] Spec Grav, UA 1.02 1 - 1.03 [facility] Urobilinogen, UA 1.0 0.2 - 12 mg/dL [facility] Urinalysis macro (dipstick) panel (U)on 05-18-2024 Bilirubin, UA Negative Negative - 4(70) +++ mg/dL [facility] Blood, UA Negative Negative - 50 Hardeep/mcL [facility] Clarity, UA Clear [facility] Color, UA Yellow [facility] Glucose, UA Negative Negative - 1999(110) ++++ mg/dL [facility] Interpretation and review of laboratory results Normal [facility] Ketones, UA Negative Negative - 160(16) ++++ mg/dL [facility] Leukocytes, UA Negative Negative - 500+++ Renee/mcL [facility] Nitrite, UA Negative Negative - Positive [facility] pH, UA 7 5 - 9 [facility] Protein, UA Negative Negative - 2000(20) ++++ mg/dL [facility] Spec Grav, UA 1.025 1 - 1.03 [facility] Urobilinogen, UA 0.2 0.2 - 12 mg/dL [facility] Urinalysis macro (dipstick) panel (U)on 04-20-2024 Bilirubin, UA Positive Negative - 4(70) +++ mg/dL [facility] Comment on above: small Blood, UA Negative Negative - 50 Hardeep/mcL [facility] Clarity, UA Clear [facility] Color, UA Yellow [facility] Glucose, UA Negative Negative - 1999(110) ++++ mg/dL [facility] Interpretation and review of laboratory results Abnormal [facility] Ketones, UA Positive Negative - 160(16) ++++ mg/dL [facility] Comment on above: trace Leukocytes, UA Negative Negative - 500+++ Renee/mcL [facility] Nitrite, UA Negative Negative - Positive [facility] pH, UA 6.5 5 - 9 [facility] Protein, UA Trace Negative - 2000(20) ++++ mg/dL [facility] Spec Grav, UA 1.030 1 - 1.03 [facility] Urobilinogen, UA 1.0 0.2 - 12 mg/dL [facility] Activated partial thrombopla stin time (aPTT) in platelet poor plasma by coagulation aOrdered By: Terry Dudley on 01-31-2024 aPTT Coag (PPP) [Time] 26.1 s 25.1-36.5 [facility] Comment on above: A hematocrit value g reater than 55% may lead to inaccurate results in coagulation testing. Patients having hematocrit values >55% require a special collection tube for coagulation studies. Please contact the laboratory at [phone] for redraw instructions. Alanine aminotransferase [En zymatic activity/volume] in Serum or PlasmaOrdered By: Terry Dudley on 01-31-2024 ALT [Catalytic activity/Vol] 22 U/L Normal 7-52 [facility] Comment on above: Performed By: #### H S TROP, PTT, CMP, DDIMER, BNP, CK, PT, CBC #### [facility] [address] [place] [address] Albumin [Mass/volume] in Ser um or Plasma by Bromocresol green (BCG) dye binding methoOrdered By: Terry Dudley on 01-31-2024 Albumin BCG dye [Mass/Vol] 4.7 g/dL 3.5-5.7 [facility] Alkaline phosphatase [Enzyma tic activity/volume] in Serum or PlasmaOrdered By: Terry Dudley on 01-31-2024 ALP [Catalytic activity/Vol] 67 U/L Normal 34-104 [facility] Comment on above: Performed By: #### H S TROP, PTT, CMP, DDIMER, BNP, CK, PT, CBC #### [address] Aspartate aminotransferase [ Enzymatic activity/volume] in Serum or PlasmaOrdered By: Terry Dudley on 01-31-2024 AST [Catalytic activity/Vol] 17 U/L Normal 13-39 [facility] Comment on above: Performed By: #### H S TROP, PTT, CMP, DDIMER, BNP, CK, PT, CBC #### [address] Automated basophil %Ordered By: Terry Dudley on 01-31-2024 Basophils/100 WBC (Bld) 0.6 % Normal . [facility] Comment on above: Performed By: #### H S TROP, PTT, CMP, DDIMER, BNP, CK, PT, CBC #### [address] Automated basophil countOrde red By: Terry Dudley on 01-31-2024 Basophils (Bld) [#/Vol] 0.1 10*3/uL Normal 0.0-0.2 [facility] Comment on above: Result Comment: PERF ORMED BY: [place] [id number] PATHOLOGIST ADOPTION AGENT CARLOS HITCHCOCK M.D. Performed By: #### H S TROP, PTT, CMP, DDIMER, BNP, CK, PT, CBC #### [address] Automated blood monocyte cou ntOrdered By: Terry Dudley on 01-31-2024 Monocytes (Bld) [#/Vol] 1.3 10*3/uL High 0.0-0.8 [facility] Comment on above: Performed By: #### H S TROP, PTT, CMP, DDIMER, BNP, CK, PT, CBC #### [address] Automated eosinophil %Ordere d By: Terry Dudley on 01-31-2024 Eosinophils/100 WBC (Bld) 0.3 % Normal . [facility] Comment on above: Performed By: #### H S TROP, PTT, CMP, DDIMER, BNP, CK, PT, CBC #### [address] Automated eosinophil countOr dered By: Terry Dudley on 01-31-2024 Eosinophils (Bld) [#/Vol] 0.1 10*3/uL Normal 0.0-0.45 [facility] Comment on above: Performed By: #### H S TROP, PTT, CMP, DDIMER, BNP, CK, PT, CBC #### [address] Automated monocyte %Ordered By: Terry Dudley on 01-31-2024 Monocytes/100 WBC (Bld) 7.5 % Normal . [facility] Comment on above: Performed By: #### H S TROP, PTT, CMP, DDIMER, BNP, CK, PT, CBC #### [address] Automated neutrophil %Ordere d By: Terry Dudley on 01-31-2024 Neutrophils/100 WBC (Bld) 79.8 % Normal . [facility] Comment on above: Performed By: #### H S TROP, PTT, CMP, DDIMER, BNP, CK, PT, CBC #### [address] BNP ser/plasOrdered By: Delgado Dudley on 01-31-2024 Natriuretic peptide B (Bld) [Mass/Vol] 30.0 pg/mL Normal 5-100 [facility] Comment on above: Result Comment: PERF ORMED BY: [place] [id number] PATHOLOGIST [employer] AGENT CARLOS HITCHCOCK M.D. Performed By: #### H S TROP, PTT, CMP, DDIMER, BNP, CK, PT, CBC #### [address] Bilirubin Test strip Ql (U)O rdered By: Terry Dudley on 01-31-2024 Bilirubin Ql (U) Negative Negative [facility] Bilirubin.total [Mass/volume ] in Serum or PlasmaOrdered By: Terry Dudley on 01-31-2024 Bilirubin [Mass/Vol] 0.5 mg/dL Normal 0.3-1.0 [facility] Comment on above: Performed By: #### H S TROP, PTT, CMP, DDIMER, BNP, CK, PT, CBC #### [place] [address] [place] Calcium [Mass/volume] in Ser um or PlasmaOrdered By: Terry Dudley on 01-31-2024 Calcium [Mass/Vol] 9.6 mg/dL Normal 8.6-10.3 [facility] Comment on above: Performed By: #### H S TROP, PTT, CMP, DDIMER, BNP, CK, PT, CBC #### [address] Carbon dioxide, total [Moles /volume] in Serum or PlasmaOrdered By: Terry Dudley on 01-31-2024 CO2 [Moles/Vol] 30.1 mmol/L Normal 21.0-31.0 [facility] Comment on above: Performed By: #### H S TROP, PTT, CMP, DDIMER, BNP, CK, PT, CBC #### [facility] [address] [place] [address] [place] Chloride [Moles/volume] in S marty or PlasmaOrdered By: Terry Dudley on 01-31-2024 Chloride [Moles/Vol] 101 mmol/L Normal 98-107 [facility] Comment on above: Performed By: #### H S TROP, PTT, CMP, DDIMER, BNP, CK, PT, CBC #### [address] Color of Urine by AutoOrdere d By: Terry Dudley on 01-31-2024 Color (U) Colorless Normal Yellow [facility] Comment on above: Order Comment: Name Collection Type:: Clean-Voided Midstream Performed By: #### U A, UHCG #### [address] Complete Blood Count Auto Di ffon 01-31-2024 Mean Corpuscular HGB Conc 34.6 g/dL Normal 32.0-35.0 [facility] Comment on above: Performed By: #### H S TROP, PTT, CMP, DDIMER, BNP, CK, PT, CBC #### [address] Monocytes/100 WBC (Bld) 14.85 % Normal 0.00-20.00 [facility] Comment on above: Performed By: #### H S TROP, PTT, CMP, DDIMER, BNP, CK, PT, CBC #### [address] NRBC% 0.0 /100{WBC} Normal 0-0.5 [facility] Comment on above: Performed By: #### H S TROP, PTT, CMP, DDIMER, BNP, CK, PT, CBC #### [address] Comprehensive Metabolic Pane urszula 01-31-2024 Albumin [Mass/Vol] 4.7 g/dL Normal 3.5-5.7 [facility] Comment on above: Performed By: #### H S TROP, PTT, CMP, DDIMER, BNP, CK, PT, CBC #### [address] Creatinine Clr Calc Pharmacy 119.17 Normal [facility] Comment on above: Result Comment: PERF ORMED BY: [place] [id number] PATHOLOGIST [employer] AGENT CARLOS HITCHCOCK M.D. Performed By: #### H S TROP, PTT, CMP, DDIMER, BNP, CK, PT, CBC #### [address] GFR/1.73 sq M.predicted MDRD (S/P/Bld) [Vol rate/Area] mL/min/{1.73_m2} Normal [facility] Comment on above: Performed By: #### H S TROP, PTT, CMP, DDIMER, BNP, CK, PT, CBC #### [address] Creatine kinase [Enzymatic a ctivity/volume] in Serum or PlasmaOrdered By: Terry Dudley on 01-31-2024 CK [Catalytic activity/Vol] 76 U/L Normal 30-223 [facility] Comment on above: Performed By: #### H S TROP, PTT, CMP, DDIMER, BNP, CK, PT, CBC #### [address] Creatinine [Mass/volume] in Serum or PlasmaOrdered By: Terry Dudley on 01-31-2024 Creatinine [Mass/Vol] 0.80 mg/dL Normal 0.60-1.20 [facility] Comment on above: Performed By: #### H S TROP, PTT, CMP, DDIMER, BNP, CK, PT, CBC #### [address] D-Dimer High Sensitivityon 0 01-31-2024 D-Dimer High Sensitivity < 200 Normal 0-243 [facility] Comment on above: Result Comment: [...] coagulation studies. Please contact the laboratory at [phone] for redraw instructions. PERFORMED BY: [place] [id number] PATHOLOGIST [employer]ION AGENT CARLOS HITCHCOCK M.D. Performed By: #### H S TROP, PTT, CMP, DDIMER, BNP, CK, PT, CBC #### [place] [id number] [facility] ECG 12 lead ECGon 01-31-2024 ECG 12 lead ECG [facility] Main [place] [address] [place] [address] Electrocardiograph Report Signed Patient: Samantha Benjamin MR#: [id number] : 1995 Acct:[id number] Age/Sex: 28 / F ADM Date: 01/31/24 Loc: ER Room: Type: [facility] ER Attending Dr: Ordering Provider: Terry [...] Dudley DO 1923 Normal [facility] Erythrocyte distribution wid th [Ratio] by Automated countOrdered By: Terry Dudley on 01-31-2024 Erythrocyte distribution width (RBC) [Ratio] 12.4 % Normal 11.9-15.3 [facility] Comment on above: Performed By: #### H S TROP, PTT, CMP, DDIMER, BNP, CK, PT, CBC #### [facility] [address] Erythrocytes [#/volume] in B lood by Automated countOrdered By: Terry Dudley on 01-31-2024 RBC (Bld) [#/Vol] 4.93 10*6/uL Normal 3.60-5.00 [facility] Comment on above: Performed By: #### H S TROP, PTT, CMP, DDIMER, BNP, CK, PT, CBC #### [facility] [address] Fibrin D-dimer [Presence] in Platelet poor plasma by Latex agglutinationOrdered By: Terry Dudley on 01-31-2024 Fibrin D-dimer LA Ql (PPP) < 200 ng/mL 0-243 [facility] Comment on above: The reference range [...] coagulation studies. Please contact the laboratory at [phone] for redraw instructions. Glucose [Mass/volume] in Ser um or PlasmaOrdered By: Terry Dudley on 01-31-2024 Glucose [Mass/Vol] 91 mg/dL Normal 70-100 [facility] Comment on above: ADA recommended refe rence rangeRandom Glucose Reference Range is dependent on time and content of last meal. Glucose of more than 200 mg/dL in a nonstressed, ambulatory subject supports the diagnosis of Diabetes Mellitus. Result Comment: [facility] Glucose Reference Range is dependent on time and content of last meal. Glucose of more than 200 mg/dL in a nonstressed, ambulatory subject supports the diagnosis of Diabetes Mellitus. ADA recommended reference range Performed By: #### H S TROP, PTT, CMP, DDIMER, BNP, CK, PT, CBC #### [address] Glucose [Mass/volume] in Uri ne by Test stripOrdered By: Terry Dudley on 01-31-2024 Glucose Test strip (U) [Mass/Vol] Normal mg/dL Normal [facility] HCG ( test) IA.rapi d Ql (U)Ordered By: Terry Dudley on 01-31-2024 HCG ( test) Ql (U) Positive High [facility] HCG,Urineon 01-31-2024 Beta HCG ( test) Ql (U) Positive High [facility] Comment on above: Order Comment: Name Collection Type:: Clean-Voided Midstream Result Comment: PERF ORMED BY: [place] [id number] PATHOLOGIST [employer] AGENT CARLOS HITCHCOCK M.D. Performed By: #### H S TROP, PTT, CMP, DDIMER, BNP, CK, PT, CBC #### [address] Hematocrit [Volume Fraction] of Blood by Automated countOrdered By: Terry Dudley on 01-31-2024 Hematocrit (Bld) [Volume fraction] 45.1 % Normal 34.0-46.4 [facility] Comment on above: Performed By: #### H S TROP, PTT, CMP, DDIMER, BNP, CK, PT, CBC #### [address] Hemoglobin Test strip Ql (U) Ordered By: Terry Dudley on 01-31-2024 Hemoglobin Ql (U) Negative Negative [facility] Hemoglobin [Mass/volume] in BloodOrdered By: Terry Dudley on 01-31-2024 Hemoglobin (Bld) [Mass/Vol] 15.6 g/dL High 11.8-15.4 [facility] Comment on above: Performed By: #### H S TROP, PTT, CMP, DDIMER, BNP, CK, PT, CBC #### [facility] [address] INR in Platelet poor plasma by Coagulation assayOrdered By: Terry Dudley on 01-31-2024 INR Coag (PPP) [Relative time] 1.2 {INR} Normal [facility] Comment on above: INR Therapeutic Rang [...] CMP, DDIMER, BNP, CK, PT, CBC #### [facility] [address] [place] [address] [place] Ketones [Presence] in Urine by Test stripOrdered By: Terry Dudley on 01-31-2024 Ketones Ql (U) Negative Normal Negative [facility] Comment on above: Order Comment: Name Collection Type:: Clean-Voided Midstream Performed By: #### U A, CG #### [facility] [address] [place] [address] [place] Leukocyte esterase [Presence ] in Urine by Test stripOrdered By: Terry Dudley on 01-31-2024 Leukocyte esterase Test strip Ql (U) Negative Normal Negative [facility] Comment on above: Order Comment: Name Collection Type:: Clean-Voided Midstream Performed By: #### U A, UHCG #### [address] Leukocytes [#/volume] correc edna for nucleated erythrocytes in Blood by Automated counOrdered By: Terry Dudley on 01-31-2024 WBC corrected for nucl RBC Auto (Bld) [#/Vol] 17.5 10*3/uL High 3.8-11.6 [facility] Leukocytes [#/volume] in Blo od by Automated countOrdered By: Terry Dudley on 01-31-2024 WBC (Bld) [#/Vol] 17.5 10*3/uL High 3.8-11.6 [facility] Comment on above: Performed By: #### H S TROP, PTT, CMP, DDIMER, BNP, CK, PT, CBC #### [address] Lymphocytes [#/volume] in Bl ood by Automated countOrdered By: Terry Dduley on 01-31-2024 Lymphocytes (Bld) [#/Vol] 2.1 10*3/uL Normal 1.00-4.8 [facility] Comment on above: Performed By: #### H S TROP, PTT, CMP, DDIMER, BNP, CK, PT, CBC #### [address] Lymphocytes/100 leukocytes i n Blood by Automated countOrdered By: Terry Dudley on 01-31-2024 Lymphocytes/100 WBC (Bld) 11.8 % Normal . [facility] Comment on above: Performed By: #### H S TROP, PTT, CMP, DDIMER, BNP, CK, PT, CBC #### [address] MCH [Entitic mass] by Automa edna countOrdered By: Terry Dudley on 01-31-2024 MCH (RBC) [Entitic mass] 31.7 pg Normal 24.7-34.3 [facility] Comment on above: Performed By: #### H S TROP, PTT, CMP, DDIMER, BNP, CK, PT, CBC #### [address] MCHC Auto (RBC) [Mass/Vol]Or dered By: Terry Dudley on 01-31-2024 MCHC (RBC) [Mass/Vol] 34.6 g/dL 32.0-35.0 [facility] MCV [Entitic volume] by Auto mated countOrdered By: Terry Dudley on 01-31-2024 MCV (RBC) [Entitic vol] 91.4 fL Normal 80-100 [facility] Comment on above: Performed By: #### H S TROP, PTT, CMP, DDIMER, BNP, CK, PT, CBC #### [facility] [address] Monocyte distribution width [Entitic volume] in Blood by AutomatedOrdered By: Terry Dudley on 01-31-2024 Monocyte distribution width Auto (Bld) [Entitic vol] 14.85 % 0.00-20.00 [facility] Neutrophils [#/volume] in Bl ood by Automated countOrdered By: Terry Dudley on 01-31-2024 Neutrophils (Bld) [#/Vol] 14.0 10*3/uL High 1.8-7.7 [facility] Comment on above: Performed By: #### H S TROP, PTT, CMP, DDIMER, BNP, CK, PT, CBC #### [facility] [address] Nitrite Test strip Ql (U)Ord ered By: Terry Dudley on 01-31-2024 Nitrite Ql (U) Negative Negative [facility] No Panel InformationOrdered By: Terry Dudley on 01-31-2024 Estimated GFR (CKD-EPI) > 60.0 mL/Min [facility] Creatinine Clearance (Chem 119.17 [facility] Nucleated erythrocytes [Pres ence] in Blood by Automated countOrdered By: Terry Dudley on 01-31-2024 Nucleated RBC Auto Ql (Bld) 0.0 /100{WBC} 0-0.5 [facility] Partial Thromboplastin Timeo n 01-31-2024 aPTT Coag (Bld) [Time] 26.1 s Normal 25.1-36.5 [facility] Comment on above: Result Comment: A he matocrit value greater than 55% may lead to inaccurate results in coagulation testing. Patients having hematocrit values >55% require a special collection tube for coagulation studies. Please contact the laboratory at [phone] for redraw instructions. Performed By: #### H S TROP, PTT, CMP, DDIMER, BNP, CK, PT, CBC #### [facility] [address] Platelet mean volume [Entiti c volume] in Blood by Automated countOrdered By: Terry Dudley on 01-31-2024 Platelet mean volume (Bld) [Entitic vol] 8.7 fL Normal 6.3-10.7 [facility] Comment on above: Performed By: #### H S TROP, PTT, CMP, DDIMER, BNP, CK, PT, CBC #### [address] Platelets [#/volume] in Bloo d by Automated countOrdered By: Terry Dudley on 01-31-2024 Platelets (Bld) [#/Vol] 297 10*3/uL Normal 150-450 [facility] Comment on above: Performed By: #### H S TROP, PTT, CMP, DDIMER, BNP, CK, PT, CBC #### [address] Potassium [Moles/volume] in Serum or PlasmaOrdered By: Terry Dudley on 01-31-2024 Potassium [Moles/Vol] 3.4 mmol/L Low 3.5-5.1 [facility] Comment on above: Performed By: #### H S TROP, PTT, CMP, DDIMER, BNP, CK, PT, CBC #### [address] Protein Test strip (U) [Mass /Vol]Ordered By: Terry Dudley on 01-31-2024 Protein (U) [Mass/Vol] Negative Negative [facility] Protein [Mass/volume] in Ser um or PlasmaOrdered By: Terry Dudley on 01-31-2024 Protein [Mass/Vol] 7.7 g/dL Normal 6.4-8.9 [facility] Comment on above: Performed By: #### H S TROP, PTT, CMP, DDIMER, BNP, CK, PT, CBC #### [address] Prothrombin time (PT)Ordered By: Terry Dudley on 01-31-2024 PT Coag (PPP) [Time] 14.0 s High 9.0-12.9 [facility] Comment on above: A hematocrit value g reater than 55% may lead to inaccurate results in coagulation testing. Patients having hematocrit values >55% require a special collection tube for coagulation studies. Please contact the laboratory at [phone] for redraw instructions. Result Comment: A he matocrit value greater than 55% may lead to inaccurate results in coagulation testing. Patients having hematocrit values >55% require a special collection tube for coagulation studies. Please contact the laboratory at [phone] for redraw instructions. Performed By: #### H S TROP, PTT, CMP, DDIMER, BNP, CK, PT, CBC #### [address] Serum globulin measurement b y calculation (mass/volume)Ordered By: Terry Dudley on 01-31-2024 Globulin (S) [Mass/Vol] 3.0 g/dL [facility] Comment on above: Performed By: #### H S TROP, PTT, CMP, DDIMER, BNP, CK, PT, CBC #### [facility] [address] [place] [address] Serum or plasma albumin/glob ulin mass ratioOrdered By: Terry Dudley on 01-31-2024 Albumin/Globulin [Mass ratio] 1.6 {ratio} [facility] Comment on above: Performed By: #### H S TROP, PTT, CMP, DDIMER, BNP, CK, PT, CBC #### [address] Serum or plasma anion gap de terminationOrdered By: Terry Dudley on 01-31-2024 Anion gap [Moles/Vol] 8.3 mmol/L Normal 6.0-15.0 [facility] Comment on above: Performed By: #### H S TROP, PTT, CMP, DDIMER, BNP, CK, PT, CBC #### [address] Sodium [Moles/volume] in Ser um or PlasmaOrdered By: Terry Dudley on 01-31-2024 Sodium [Moles/Vol] 136 mmol/L Normal 136-145 [facility] Comment on above: Performed By: #### H S TROP, PTT, CMP, DDIMER, BNP, CK, PT, CBC #### [address] Specific gravity Test strip (U) [Rel density]Ordered By: Terry Dudley on 01-31-2024 Specific gravity (U) [Rel density] 1.005 1.001-1.[address] [facility] Troponin I High Sensitivityo n 01-31-2024 Troponin I High Sensitivity 3.5 pg/mL Normal 0.0-15.0 [facility] Comment on above: Result Comment: PERF ORMED BY: [place] [address] PATHOLOGIST [employer] AGENT CARLOS HITCHCOCK M.D. Performed By: #### H S TROP, PTT, CMP, DDIMER, BNP, CK, PT, CBC #### [address] Troponin I.cardiac [Mass/vol ume] in Serum or Plasma by Detection limit <= 0.01 ng/Ordered By: Terry Dudley on 01-31-2024 Troponin I.cardiac DL <= 0.01 ng/mL [Mass/Vol] 3.5 pg/mL 0.0-15.0 [facility] Urea nitrogen [Mass/volume] in Serum or PlasmaOrdered By: Terry Dudley on 01-31-2024 Urea nitrogen [Mass/Vol] 10 mg/dL Normal 7-25 [facility] Comment on above: Performed By: #### H S TROP, PTT, CMP, DDIMER, BNP, CK, PT, CBC #### [place] [address] [place] Urinalysison 01-31-2024 Bilirubin,Urine Negative Normal Negative [facility] Comment on above: Order Comment: Name Collection Type:: Clean-Voided Midstream Performed By: #### U A, UHCG #### [facility] [address] Glucose Ql (U) Normal Normal Normal [facility] Comment on above: Order Comment: Name Collection Type:: Clean-Voided Midstream Performed By: #### U A, UHCG #### [place] [address] [place] Nitrite,Urine Negative Normal Negative [facility] Comment on above: Order Comment: Name Collection Type:: Clean-Voided Midstream Performed By: #### U A, UHCG #### [address] Occult Blood,Urine Negative Normal Negative [facility] Comment on above: Order Comment: Name Collection Type:: Clean-Voided Midstream Performed By: #### U A, UHCG #### [place] [address] [place] Protein,Urine Negative Normal Negative [facility] Comment on above: Order Comment: Name Collection Type:: Clean-Voided Midstream Performed By: #### U A, UHCG #### [facility] [address] [place] [address] Specificy [place],Urine 1.005 Normal 1.001-1.03 0 [facility] Comment on above: Order Comment: Name Collection Type:: Clean-Voided Midstream Performed By: #### U A, UHCG #### [facility] [address] [place] [address] [place] Urobilinogen,Urine Normal Normal Normal [facility] Comment on above: Order Comment: Name Collection Type:: Clean-Voided Midstream Performed By: #### U A, UHCG #### [facility] [address] [place], [place] [id number] [facility] Urine appearanceOrdered By: Trery Dudley on 01-31-2024 Appearance (U) Clear Normal Clear [facility] Comment on above: Order Comment: Name Collection Type:: Clean-Voided Midstream Performed By: #### U A, UHCG #### [facility] [address] [place] [id number] [facility] Urobilinogen Test strip (U) [Mass/Vol]Ordered By: Terry Dudley on 01-31-2024 Urobilinogen (U) [Mass/Vol] Normal mg/dL Normal [facility] pH of Urine by Test stripOrd ered By: Terry Dudley on 01-31-2024 pH (U) 6.5 [pH] Normal 5.0-9.0 [facility] Comment on above: Order Comment: Name Collection Type:: Clean-Voided Midstream Performed By: #### U A UHCG #### [facility] [address] [place] [address] PAP ACOG PANEL 2: 23 to 31on 10-14-2021 . . Normal [facility] Comment on above: Performed By: #### P TT #### [facility] [address] [place] [address] Kaela Dimas Age Gdln ACOG Testing 23- Normal [facility] Comment on above: Performed By: #### P TT #### [facility] [address] [address] Kaela Dimas DIAGNOSIS: Comment Normal [facility] Comment on above: Result Comment: NEGA TIVE FOR INTRAEPITHELIAL LESION OR MALIGNANCY. CELLULAR CHANGES ASSOCIATED WITH INFLAMMATION ARE PRESENT. Performed By: #### P TT #### [facility] [address] [address] Kaela Dimas Methodology: Comment Normal [facility] Comment on above: Result Comment: This liquid based ThinPrep(R) pap test was screened with the use of an image guided system. Performed By: #### P TT #### [facility] [address] [place] [address] Kaela Dimas Note: Comment Normal [facility] Comment on above: Result Comment: The Pap smear is a screening test designed to aid in the detection of premalignant and malignant conditions of the uterine cervix. It is not a diagnostic procedure and should not be used as the sole means of detecting cervical cancer. Both false-positive and false-negative reports do occur. . Performed By: #### P TT #### [facility] [address] [place] [address] Kaela Judie Performed by: Comment Normal [facility] Comment on above: Result Comment: Nancy Collins, Electronic Service Technician (ASCP) Performed By: #### P TT #### [facility] [address] [place] [address] Kaela Judie Reflex Criteria: Comment Normal [facility] Comment on above: Result Comment: The HPV DNA reflex criteria were not met with this specimen result therefore, no HPV testing was performed. . Performed By: #### P TT #### [facility] [address] [place] [address] Kaela Judie Specimen adequacy: Comment Normal [facility] Comment on above: Result Comment: Sati sfactory for evaluation. Endocervical and/or squamous metaplastic cells (endocervical component) are present. Performed By: #### P TT #### [facility] [address] [place] [address] Kaela Judie CBC AUTO DIFFon 02-07-2021 BASO # 0.1 103/ul Normal 0.0-0.1 [facility] Comment on above: Performed By: #### C BC #### [facility] [address] [place] [address] Kaela Judie Basophils/100 WBC (Bld) 0.3 % Normal 0.2-2.0 [facility] Comment on above: Performed By: #### C BC #### [facility] [address] [place] [address] Kaela Judie EO # 0.1 103/ul Normal 0.0-0.7 [facility] Comment on above: Performed By: #### C BC #### [facility] [address] [place] [address] Kaela Ujdie Eosinophils/100 WBC (Bld) 0.5 % Critically low 0.9-7.0 [facility] Comment on above: Performed By: #### C BC #### [facility] [address] [place], [place] [id number] Kaela Judie Erythrocyte distribution width (RBC) [Ratio] 12.3 % Normal 11.0-15.0 [facility] Comment on above: Performed By: #### C BC #### [facility] [address] [place] [address] Kaela Judie Hematocrit (Bld) [Volume fraction] 33.8 % Critically low 36.0-48.0 [facility] Comment on above: Performed By: #### C BC #### [facility] [address] [place] [address] Kaela Judie Hemoglobin (Bld) [Mass/Vol] 11.6 g/dL Critically low 12.0-16.0 [facility] Comment on above: Performed By: #### C BC #### [facility] [address] [place] [address] Kaela Judie IG # 0.20 10e3/ul Critically high 0.00-0.03 [facility] Comment on above: Performed By: #### C BC #### [facility] [address] [place] [address] Kaela Judie IG % 1.2 % Critically high 0.0-0.5 [facility] Comment on above: Performed By: #### C BC #### [facility] [address] [place] [address] Kaela Judie LYMPH # 1.6 103/ul Normal 1.2-3.8 [facility] Comment on above: Performed By: #### C BC #### [facility] [address] [place] [address] Kaela Judie Lymphocytes/100 WBC (Bld) 9.2 % Critically low 20.5-60.0 [facility] Comment on above: Performed By: #### C BC #### [facility] [address] [place] [address] Kaela Judie MANUAL DIFF REQ NO Normal [facility] Comment on above: Performed By: #### C BC #### [facility] [address] [place] [address] Kaela Dimas MCH (RBC) [Entitic mass] 30.8 pg Normal 26.7-34.0 [facility] Comment on above: Performed By: #### C BC #### [facility] [address] [place], [place] [id number] Kaela Dimas MCHC (RBC) [Mass/Vol] 34.3 g/dL Normal 29.9-35.2 [facility] Comment on above: Performed By: #### C BC #### [facility] [address] [address] Kaela Dimas MCV (RBC) [Entitic vol] 89.7 fL Normal 81.0-99.0 [facility] Comment on above: Performed By: #### C BC #### [facility] [address] [place] [address] Kaela Dimas MONO # 0.9 103/ul Critically high 0.3-0.8 [facility] Comment on above: Performed By: #### C BC #### [facility] [address] [place] [address] Kaela Dimas Monocytes/100 WBC (Bld) 5.5 % Normal 1.7-12.0 [facility] Comment on above: Performed By: #### C BC #### [facility] [address] [place] [address] Kaela Dimas NEUT # 14.1 103/ul Critically high 1.4-6.5 [facility] Comment on above: Performed By: #### C BC #### [facility] [address] [place] [address] Kaela Dimas Neutrophils/100 WBC (Bld) 83.3 % Critically high 43.0-75.0 [facility] Comment on above: Performed By: #### C BC #### [facility] [address] [place], [place] [id number] Kaela Dimas Platelet mean volume (Bld) [Entitic vol] 11.0 fL Normal 9.5-13.5 [facility] Comment on above: Performed By: #### C BC #### [facility] [address] [place], [place] [id number] Kaela Dimas PLT 192 103/ul Normal 150-450 [facility] Comment on above: Performed By: #### C BC #### [facility] [address] [place] [address] Kaela Dimas RBC 3.77 106/ul Critically low 4.20-5.40 [facility] Comment on above: Performed By: #### C BC #### [facility] [address] [id number] Kaela Dimas WBC 16.9 103/ul Critically high 4.0-11.0 [facility] Comment on above: Performed By: #### C BC #### [facility] [address] [place] [address] Kaela Dimas ASYMPTOMATIC COVID-19 ANTIGE Non 02-05-2021 EUA Statement SEE BELOW Normal [facility] Comment on above: Result Comment: This test [...] sooner. Performed By: #### G TT3P #### [facility] [address] [place] [address] Kaela Dimas SARS-CoV-2 (COVID-19) RNA RIGOBERTO+probe Ql (Unsp spec) Negative Normal NEGATIVE [facility] Comment on above: Result Comment: Nega tive results are presumptive. They do not preclude infection and should not be used as the sole basis for treatment decisions. Additional confirmatory testing by a molecular method should be considered. Performed By: #### G TT3P #### [facility] [address] [place] [address] Kaela Judie CBC AUTO DIFFon 02-05-2021 BASO # 0.1 103/ul Normal 0.0-0.1 [facility] Comment on above: Performed By: #### C BC #### [facility] [address] [id number] Kaela Judie Basophils/100 WBC (Bld) 0.3 % Normal 0.2-2.0 [facility] Comment on above: Performed By: #### C BC #### [facility] [address] [id number] Kaela Judie EO # 0.1 103/ul Normal 0.0-0.7 [facility] Comment on above: Performed By: #### C BC #### [facility] [address] [place] [address] Kaela Judie Eosinophils/100 WBC (Bld) 0.3 % Critically low 0.9-7.0 [facility] Comment on above: Performed By: #### C BC #### [facility] [address] [place], [place] [id number] Kaela Judie Erythrocyte distribution width (RBC) [Ratio] 12.0 % Normal 11.0-15.0 [facility] Comment on above: Performed By: #### C BC #### [facility] [address] [place], [place] [id number] Kaela Judie Hematocrit (Bld) [Volume fraction] 36.9 % Normal 36.0-48.0 [facility] Comment on above: Performed By: #### C BC #### [facility] [address] [place], [place] [id number] Kaela Judie Hemoglobin (Bld) [Mass/Vol] 12.7 g/dL Normal 12.0-16.0 [facility] Comment on above: Performed By: #### C BC #### [facility] [address] [place], [place] [address] Kaela Judie IG # 0.19 10e3/ul Critically high 0.00-0.03 [facility] Comment on above: Performed By: #### C BC #### [facility] [address] [place] [address] Kaela Dimas IG % 1.0 % Critically high 0.0-0.5 [facility] Comment on above: Performed By: #### C BC #### [facility] [address] [place] [address] Kaelastephanie Dimas LYMPH # 1.4 103/ul Normal 1.2-3.8 [facility] Comment on above: Performed By: #### C BC #### [facility] [address] [place] [address] Kaela Dimas Lymphocytes/100 WBC (Bld) 7.6 % Critically low 20.5-60.0 [facility] Comment on above: Performed By: #### C BC #### [facility] [address] [place] [address] Kaela Dimas MANUAL DIFF REQ NO Normal [facility] Comment on above: Performed By: #### C BC #### [facility] [address] [place] [address] Kaela Dimas MCH (RBC) [Entitic mass] 30.5 pg Normal 26.7-34.0 [facility] Comment on above: Performed By: #### C BC #### [facility] [address] [place] [address] Kaela Dimas MCHC (RBC) [Mass/Vol] 34.4 g/dL Normal 29.9-35.2 [facility] Comment on above: Performed By: #### C BC #### [facility] [address] [place] [address] Kaela Dimas MCV (RBC) [Entitic vol] 88.5 fL Normal 81.0-99.0 [facility] Comment on above: Performed By: #### C BC #### [facility] [address] [place], [place] [address] Kaelastephanie Sahuen MONO # 1.0 103/ul Critically high 0.3-0.8 [facility] Comment on above: Performed By: #### C BC #### [facility] [address] [place], [place] [address] Kaela Dimas Monocytes/100 WBC (Bld) 5.5 % Normal 1.7-12.0 [facility] Comment on above: Performed By: #### C BC #### [facility] [address] [place], [place] [address] Kaela Dimas NEUT # 15.7 103/ul Critically high 1.4-6.5 [facility] Comment on above: Performed By: #### C BC #### [facility] [address] [place], [place] [address] Kaela Dimas Neutrophils/100 WBC (Bld) 85.3 % Critically high 43.0-75.0 [facility] Comment on above: Performed By: #### C BC #### [facility] [address] [place], [place] [address] Kaela Dimas Platelet mean volume (Bld) [Entitic vol] 11.8 fL Normal 9.5-13.5 [facility] Comment on above: Performed By: #### C BC #### [facility] [address] [place], [place] [address] Kaela Dimas PLT 226 103/ul Normal 150-450 [facility] Comment on above: Performed By: #### C BC #### [facility] [address] [place], [place] [address] Kaela Sahuen RBC 4.17 106/ul Critically low 4.20-5.40 [facility] Comment on above: Performed By: #### C BC #### [facility] [address] [place], [place] [address] Kaela Sahuen WBC 18.5 103/ul Critically high 4.0-11.0 [facility] Comment on above: Performed By: #### C BC #### [facility] [address] [place] [address] Kaela Dimas DRUG SCREEN RAPID (URINE)on 02-05-2021 AMP Negative Normal NEGATIVE [facility] Comment on above: Performed By: #### D RUGRPD #### [facility] [address] [place], [place] [address] Kaela Dimas BAR Negative Normal NEGATIVE [facility] Comment on above: Performed By: #### D RUGRPD #### [facility] [address] [address] Kaela Judie BUP Negative Normal NEGATIVE [facility] Comment on above: Performed By: #### D RUGRPD #### [facility] [address] [address] Kaela Judie BZO Negative Normal NEGATIVE [facility] Comment on above: Performed By: #### D RUGRPD #### [facility] [address] [address] Kaela Judie JERRY Negative Normal NEGATIVE [facility] Comment on above: Performed By: #### D RUGRPD #### [facility] [address] [place] [address] Kaela Judie CUT-OFFS SEE BELOW Normal [facility] Comment on above: Result Comment: AMP (Amphetamine): 500ng/mL, BAR (Barbituates): 200 ng/mL, BZO (Benzodiazepines): 150 ng/mL, BUP (Buprenorphine): 10 ng/mL, JERRY (Cocaine): 150 ng/mL, mAMP (Methamphetamine): 500 ng/mL, MTD (Methadone): 200 ng/mL, OPI (Opiates): 100 ng/mL, OXY (Oxycodone): 100 ng/mL, PCP (Phencyclidine): 25 ng/mL, PPX (Propoxyphene): 300 ng/mL, THC (Cannabinoids): 50 ng/mL, TCA (Trycyclic Antidepressants): 300 ng/mL Performed By: #### D RUGRPD #### [facility] [address] [place] [address] Kaela Judie DRUG CUT HEADER DRUG CLASS TEST SYST EM CUT-OFF CONCENTRATIONS ARE FOLLOWS: Normal [facility] Comment on above: Performed By: #### D RUGRPD #### [facility] [address] [place] [address] Kaela Judie mAMP Negative Normal NEGATIVE [facility] Comment on above: Performed By: #### D RUGRPD #### [facility] [address] [address] Kaela Judie MTD Negative Normal NEGATIVE [facility] Comment on above: Performed By: #### D RUGRPD #### [facility] [address] [place] [address] Kaela Judie OPI Negative Normal NEGATIVE [facility] Comment on above: Performed By: #### D RUGRPD #### [facility] [address] [place] [address] Kaela Judie OXY Negative Normal NEGATIVE [facility] Comment on above: Performed By: #### D RUGRPD #### [facility] [address] [place] [address] Kaela Judie PCP Negative Normal NEGATIVE [facility] Comment on above: Performed By: #### D RUGRPD #### [facility] [address] [place] [address] Kaela Judie PPX Negative Normal NEGATIVE [facility] Comment on above: Performed By: #### D RUGRPD #### [facility] [address] [place] [address] Kaela Judie TCA Negative Normal NEGATIVE [facility] Comment on above: Performed By: #### D RUGRPD #### [facility] [address] [place] [address] Kaela Judie THC Negative Normal NEGATIVE [facility] Comment on above: Performed By: #### D RUGRPD #### [facility] [address] [place] [address] Kaela Judie TYPE AND SCREENon 02-05-2021 TYPE AND SCREEN Negative Normal [facility] Comment on above: Performed By: #### P TT #### [facility] [address] [place] [address] Kaela Dimas GROUP B STREP CULTUREon S. agalactiae Ag Ql (Unsp spec) Culture Observations: NEGATIVE FOR GROUP B STREPTOCOCCUS. Normal [facility] Comment on above: Performed By: #### P TT #### [facility] [address] [place] [address] Kaela Dimas US PREG BIOPHY W NON [...] by: MICHELLE LANE Date: 2021-01-30 08:23 Normal [facility] US PREG GROWTHon 01-30-2021 US PREG GROWTH [...] by: MICHELLE LANE Date: 2021-01-30 08:25 Normal [facility] US PREG BIOPHY W NON STRESSo n [...] MICHELLE LANE Date: 2021-01-23 07:22 Normal [facility] US PREG BIOPHY W NON STRESSo n [...] MICHELLE LANE Date: 2021-01-16 07:31 Normal [facility] PROTEIN 24HR URINEon 021 T PROT, 24 HR UR 603.9 mg/24 hr Critically high 42.0-225.0 [facility] Comment on above: Performed By: #### G TT3P #### [facility] [address] [place] [address] Kaela Judie UR PROT 12.2 mg/dL Critically high <=12.0 [facility] Comment on above: Performed By: #### G TT3P #### [facility] [address] [place] [address] Kaela Judie UR TOT VOL 4950 ml/24 HR Normal [facility] Comment on above: Performed By: #### G TT3P #### [facility] [address] [place] [address] Kaela Judie CBC AUTO DIFFon 01-13-2021 BASO # 0.0 103/ul Normal 0.0-0.1 [facility] Comment on above: Performed By: #### G TT3P #### [facility] [address] [id number] Kaela Judie Basophils/100 WBC (Bld) 0.2 % Normal 0.2-2.0 [facility] Comment on above: Performed By: #### G TT3P #### [facility] [address] [place] [address] Kaela Judie EO # 0.1 103/ul Normal 0.0-0.7 [facility] Comment on above: Performed By: #### G TT3P #### [facility] [address] [place], [place] [address] Kaela Judie Eosinophils/100 WBC (Bld) 0.6 % Critically low 0.9-7.0 [facility] Comment on above: Performed By: #### G TT3P #### [facility] [address] [place] [address] Kaela Judie Erythrocyte distribution width (RBC) [Ratio] 11.7 % Normal 11.0-15.0 [facility] Comment on above: Performed By: #### G TT3P #### [facility] [address] [place] [address] Kaela Judie Hematocrit (Bld) [Volume fraction] 34.5 % Critically low 36.0-48.0 [facility] Comment on above: Performed By: #### G TT3P #### [facility] [address] [place], [place] [address] Kaela Judie Hemoglobin (Bld) [Mass/Vol] 12.1 g/dL Normal 12.0-16.0 [facility] Comment on above: Performed By: #### G TT3P #### [facility] [address] [place] [address] Kaela Judie IG # 0.20 10e3/ul Critically high 0.00-0.03 [facility] Comment on above: Performed By: #### G TT3P #### [facility] [address] [place] [address] Kaela Judie IG % 1.2 % Critically high 0.0-0.5 [facility] Comment on above: Performed By: #### G TT3P #### [facility] [address] [place] [address] Kaela Judie LYMPH # 1.5 103/ul Normal 1.2-3.8 [facility] Comment on above: Performed By: #### G TT3P #### [facility] [address] [place], [place] [address] Kaela Dimas Lymphocytes/100 WBC (Bld) 8.6 % Critically low 20.5-60.0 [facility] Comment on above: Performed By: #### G TT3P #### [facility] [address] [place] [address] Kaela Dimas MANUAL DIFF REQ NO Normal [facility] Comment on above: Performed By: #### G TT3P #### [facility] [address] [place] [address] Kaelastephanie Dimas MCH (RBC) [Entitic mass] 30.6 pg Normal 26.7-34.0 [facility] Comment on above: Performed By: #### G TT3P #### [facility] [address] [place] [address] Kaelastephanie Dimas MCHC (RBC) [Mass/Vol] 35.1 g/dL Normal 29.9-35.2 [facility] Comment on above: Performed By: #### G TT3P #### [facility] [address] [place] [address] Kaelastephanie Dimas MCV (RBC) [Entitic vol] 87.3 fL Normal 81.0-99.0 [facility] Comment on above: Performed By: #### G TT3P #### [facility] [address] [place] [address] Kaela Judie MONO # 1.2 103/ul Critically high 0.3-0.8 [facility] Comment on above: Performed By: #### G TT3P #### [facility] [address] [place], [place] [address] Kaelastephanie Dimas Monocytes/100 WBC (Bld) 6.6 % Normal 1.7-12.0 [facility] Comment on above: Performed By: #### G TT3P #### [facility] [address] [place] [address] Kaela Dimas NEUT # 14.4 103/ul Critically high 1.4-6.5 [facility] Comment on above: Performed By: #### G TT3P #### [facility] [address] [place] [address] Kaela Dimas Neutrophils/100 WBC (Bld) 82.8 % Critically high 43.0-75.0 [facility] Comment on above: Performed By: #### G TT3P #### [facility] [address] [place] [address] Kaela Dimas Platelet mean volume (Bld) [Entitic vol] 12.1 fL Normal 9.5-13.5 [facility] Comment on above: Performed By: #### G TT3P #### [facility] [address] [place] [address] Kaela Dimas PLT 216 103/ul Normal 150-450 [facility] Comment on above: Performed By: #### G TT3P #### [facility] [address] [place] [address] Kaela Dimas RBC 3.95 106/ul Critically low 4.20-5.40 [facility] Comment on above: Performed By: #### G TT3P #### [facility] [address] [place] [address] Kaela Dimas WBC 17.4 103/ul Critically high 4.0-11.0 [facility] Comment on above: Performed By: #### G TT3P #### [facility] [address] [place] [address] Kaela Dimas CULTURE URINEon 01-13-2021 CULTURE URINE Culture Observations : LIGHT GROWTH OF MIXED GENITAL TINO. NO POTENTIAL PATHOGENS SEEN. Normal [facility] Comment on above: Performed By: #### P TT #### [facility] [address] [place] [address] Kaela Dimas LDHon 01-13-2021 LDH 194 U/L Normal 122-222 [facility] Comment on above: Performed By: #### U ELIZABETH, LDH #### [facility] [address] [place], [place] [address] Kaela Dimas PROF 14(COMP METB)on 021 Albumin [Mass/Vol] 2.7 g/dL Critically low 3.5-5.0 Th [facility] Comment on above: Performed By: #### G TT3P #### [facility] [address] [place], [place] [address] Kaela Judie Albumin/Globulin [Mass ratio] 0.9 {ratio} Normal [facility] Comment on above: Performed By: #### G TT3P #### [facility] [address] [place] [address] Kaela Judie ALP [Catalytic activity/Vol] 134 U/L Critically high 38-126 [facility] Comment on above: Performed By: #### G TT3P #### [facility] [address] [place] [address] Kaela Judie ALT [Catalytic activity/Vol] 21 U/L Normal 9-52 [facility] Comment on above: Performed By: #### G TT3P #### [facility] [address] [place] [address] Kaela Judie Anion gap [Moles/Vol] 11.6 mmol/L Normal Th [facility] Comment on above: Performed By: #### G TT3P #### [facility] [address] [place] [address] Kaela Judie AST [Catalytic activity/Vol] 17 U/L Normal 14-36 [facility] Comment on above: Performed By: #### G TT3P #### [facility] [address] [place] [address] Kaela Judie Bilirubin [Mass/Vol] 0.2 mg/dL Normal 0.2-1.3 [facility] Comment on above: Performed By: #### G TT3P #### [facility] [address] [place], [place] [address] Kaela Judie Calcium [Mass/Vol] 9.1 mg/dL Normal 8.4-10.2 [facility] Comment on above: Performed By: #### G TT3P #### [facility] [address] [place] [address] Kaela Judie Chloride [Moles/Vol] 106 mmol/L Normal 98-107 [facility] Comment on above: Performed By: #### G TT3P #### [facility] [address] [place] [address] Kaela Judie CO2 [Moles/Vol] 25.8 mmol/L Normal 22.0-30.0 [facility] Comment on above: Performed By: #### G TT3P #### [facility] [address] [place] [address] Kaela Judie Creatinine [Mass/Vol] 0.53 mg/dL Normal 0.52-1.04 [facility] Comment on above: Performed By: #### G TT3P #### [facility] [address] [place] [address] Kaela Judie EGFR-AF BHUTANESE >60 Normal >=60 [facility] Comment on above: Performed By: #### G TT3P #### [facility] [address] [place] [address] Kaela Judie EGFR-NON AF BHUTANESE >60 Normal >=60 [facility] Comment on above: Performed By: #### G TT3P #### [facility] [address] [place] [address] Kaela Judie Globulin (S) [Mass/Vol] 3.0 g/dL Normal [facility] Comment on above: Performed By: #### G TT3P #### [facility] [address] [place] [address] Kaela Judie Glucose [Mass/Vol] 85 mg/dL Normal 74-106 [facility] Comment on above: Performed By: #### G TT3P #### [facility] [address] [place] [address] Kaela Judie Potassium [Moles/Vol] 3.4 mmol/L Normal 3.4-5.0 [facility] Comment on above: Performed By: #### G TT3P #### [facility] [address] [place] [address] Kaela Judie Protein [Mass/Vol] 5.7 g/dL Critically low 6.1-8.2 Th [facility] Comment on above: Performed By: #### G TT3P #### [facility] [address] [place] [address] Kaela Judie Sodium [Moles/Vol] 140 mmol/L Normal 137-145 [facility] Comment on above: Performed By: #### G TT3P #### [facility] [address] [place] [address] Kaela Judie Urea nitrogen [Mass/Vol] 10.0 mg/dL Normal 7.0-17.0 [facility] Comment on above: Performed By: #### G TT3P #### [facility] [address] [place] [address] Kaela Judie Urea nitrogen/Creatinine [Mass ratio] 18.9 mg/mg Normal [facility] Comment on above: Performed By: #### G TT3P #### [facility] [address] [place] [address] Kaela Judie PTTon 01-13-2021 aPTT Coag (Bld) [Time] 23.6 s Normal 22.3-36.2 [facility] Comment on above: Performed By: #### P TT #### [facility] [address] [place] [address] Kaela Judie URIC ACID SERUMon 01-13-2021 Urate [Mass/Vol] 3.7 mg/dL Normal 2.5-6.2 [facility] Comment on above: Performed By: #### U ELIZABETH, LDH #### [facility] [address] [place] [address] Kaela Judie UA (CLEAN/CATCH) [employer]NAGER/MICRO I F IND.on 01-12-2021 Bilirubin Ql (U) Negative Normal NEGATIVE [facility] Comment on above: Performed By: #### U MICRO, UACSIND #### [facility] [address] [place] [address] Kaela Judie Clarity (U) CLEAR Normal CLEAR [facility] Comment on above: Performed By: #### U MICRO, UACSIND #### [facility] [address] [place] [address] Kaela Judie Color (U) LT. YELLOW Normal YELLOW [facility] Comment on above: Performed By: #### U MICRO, UACSIND #### [facility] [address] [address] Kaela Judie Glucose Ql (U) Negative Normal NEGATIVE [facility] Comment on above: Performed By: #### U MICRO, UACSIND #### [facility] [address] [place] [address] Kaela Judie Hemoglobin Ql (U) Negative Normal NEGATIVE [facility] Comment on above: Performed By: #### U MICRO, UACSIND #### [facility] [address] [place] [address] Kaela Judie Ketones Ql (U) Negative Normal NEGATIVE [facility] Comment on above: Performed By: #### U MICRO, UACSIND #### [facility] [address] [place] [address] Kaela Judie LEUKOCYTES TRACE Abnormal NEGATIVE [facility] Comment on above: Performed By: #### U MICRO, UACSIND #### [facility] [address] [place] [address] Kaela Judie Nitrite Ql (U) Negative Normal NEGATIVE [facility] Comment on above: Performed By: #### U MICRO, UACSIND #### [facility] [address] [place] [address] Kaela Judie pH (U) 6.0 [pH] Normal 5-9 [facility] Comment on above: Performed By: #### U MICRO, UACSIND #### [facility] [address] [place] [address] Kaela Judie SPEC GRAVITY 1.025 Normal 1.005-<=1. 025 [facility] Comment on above: Performed By: #### U MICRO, UACSIND #### [facility] [address] [place] [address] Kaela Judie UA PROTEIN Negative Normal NEGATIVE/ TRACE [facility] Comment on above: Performed By: #### U MICRO, UACSIND #### [facility] [address] [place] [address] Kaela Judie UR MICRO IND INDICATED Normal [facility] Comment on above: Performed By: #### U MICRO, UACSIND #### [facility] [address] [place] [address] Kaela Judie Urobilinogen Qn (U) 0.2 {Sylvester'U}/dL Normal 0.2 - 1. 0 [facility] Comment on above: Performed By: #### U MICRO, UACSIND #### [facility] [address] [place] [address] Kaela Judie URINE MICROSCOPIC ONLYon BACTERIA TRACE Abnormal NONE SEEN [facility] Comment on above: Performed By: #### U MICRO, UACSIND #### [facility] [address] [place] [address] Kaela Judie Bacteria identified Cx Nom (U) INDICATED Normal [facility] Comment on above: Performed By: #### U MICRO, UACSIND #### [facility] [address] [place] [address] Kaela Judie CAST NONE SEEN Normal NONE SEEN [facility] Comment on above: Performed By: #### U MICRO, UACSIND #### [facility] [address] [place] [address] Kaela Judie Crystals LM Nom (Urine sed) NONE SEEN Normal NONE SEEN [facility] Comment on above: Performed By: #### U MICRO, UACSIND #### [facility] [address] [place] [address] Kaela Judie Epithelial cells LM Ql (Urine sed) FEW Abnormal NONE SEEN /RARE [facility] Comment on above: Performed By: #### U MICRO, UACSIND #### [facility] [address] [place] [address] Kaela Judie MUCOUS SMALL Abnormal NONE SEEN [facility] Comment on above: Performed By: #### U MICRO, UACSIND #### [facility] [address] [place] [address] Kaela Judie RBC 0-2 Normal 0-2 [facility] Comment on above: Performed By: #### U MICRO, UACSIND #### [facility] [address] [place] [address] Kaela Judie WBC 2-5 Abnormal NONE SEEN [facility] Comment on above: Performed By: #### U MICRO, UACSIND #### [facility] [address] [place] [address] Kaela Dimas US PREG BIOPHY W NON [...] IRINEO COMBS Date: 2021-01-09 07:18 Normal [facility] US PREG GROWTHon 12-31-2020 US PREG GROWTH [...] cm; 32 weeks 2 days; % EFW: [id number], 39% FL/AC: 0.301982 FL/BPD: 0.541398 HC/AC: 1.037300 GESTATIONAL AGE: Age by EDC: 32 weeks 1 day SUSANNA by EDC: 02/24/2021 Age by US: 32 weeks 0 days SUSANNA by US: 02/25/2021 IMPRESSION: Normal interval growth Electronically authenticated by: IRINEO COMBS Date: 2020-12-31 09:38 Normal [facility] GTT 3 HR PREGon 12-12-2020 Glucose [Mass/Vol] 86 mg/dL Normal 74-106 [facility] Comment on above: Performed By: #### G TT3P #### [facility] [address] [place] [address] Kaela Judie Glucose [Mass/Vol] 179 mg/dL Normal [facility] Comment on above: Performed By: #### G TT3P #### [facility] [address] [place] [address] Kaela Judie Glucose [Mass/Vol] 131 mg/dL Normal [facility] Comment on above: Performed By: #### G TT3P #### [facility] [address] [place] [address] Kaela Judie Glucose [Mass/Vol] 145 mg/dL Normal [facility] Comment on above: Performed By: #### G TT3P #### [facility] [address] [place] [address] Kaela Judie GLUCOSE - 1HRon 12-05-2020 Glucose [Mass/Vol] 151 mg/dL Critically high 74-106 [facility] Comment on above: Result Comment: sherri ent was approximately 5 minutes late for draw Performed By: #### G LU1HR #### [facility] [address] [place] [address] Kaela Judie HEMOGRAM AND PLATELon 2020 Hematocrit (Bld) [Volume fraction] 38.4 % Normal 36.0-48.0 [facility] Comment on above: Performed By: #### G TT3P #### [facility] [address] [place] [address] Kaela Judie Hemoglobin (Bld) [Mass/Vol] 13.2 g/dL Normal 12.0-16.0 [facility] Comment on above: Performed By: #### G TT3P #### [facility] [address] [place] [address] Kaela Judie MCH (RBC) [Entitic mass] 30.8 pg Normal 26.7-34.0 [facility] Comment on above: Performed By: #### G TT3P #### [facility] [address] [address] Kaela Dimas MCHC (RBC) [Mass/Vol] 34.4 g/dL Normal 29.9-35.2 [facility] Comment on above: Performed By: #### G TT3P #### [facility] [address] [place], [place] [id number] Kaela Dimas MCV (RBC) [Entitic vol] 89.5 fL Normal 81.0-99.0 [facility] Comment on above: Performed By: #### G TT3P #### [facility] [address] [place] [address] Kaela Dimas PLT 238 103/ul Normal 150-450 [facility] Comment on above: Performed By: #### G TT3P #### [facility] [address] [place] [address] Kaela Dimas RBC 4.29 106/ul Normal 4.20-5.40 [facility] Comment on above: Performed By: #### G TT3P #### [facility] [address] [place] [address] Kaela Dimas WBC 17.0 103/ul Critically high 4.0-11.0 [facility] Comment on above: Performed By: #### G TT3P #### [facility] [address] [place], [place] [id number] Kaela Dimas US PREG GROWTHon 12-03-2020 PREG [...] cm; 28 weeks 0 days; % EFW: 2.549093, 2 lbs. 10 oz., 40% FL/AC: 0.635661 FL/BPD: 0.530236 HC/AC: 1.557596 GESTATIONAL AGE: Age by EDC: 28 weeks 1 day SUSANNA by EDC: 02/24/2021 Age by US: 20 weeks 2 days SUSANNA by US: 02/23/2021 IMPRESSION: Normal interval growth Electronically authenticated by: IRINEO COMBS Date: 2020-12-03 10:04 Normal [facility] Vital Signs Date Time Vital Sign Value Performing Clinician Facility 08-29-2024 14:37-0500 Body mass index (BMI) [Ratio] 41.42 kg/m2 Scotty Jacquie DO Work Phone: [facility] 08-29-2024 14:37-0500 Body weight 106.05 kg Scotty Jacquie DO Work Phone: [facility] 08-29-2024 14:37-0500 Diastolic blood pressure 78 mm[Hg] Scotty Jacquie DO Work Phone: [facility] 08-29-2024 14:37-0500 Systolic blood pressure 128 mm[Hg] Scotty Jacquie DO Work Phone: [facility] 08-22-2024 15:09-0500 Body mass index (BMI) [Ratio] 41.45 kg/m2 Scotty Jacquie DO Work Phone: [facility] 08-22-2024 15:09-0500 Body weight 106.14 kg Scotty Jacquie DO Work Phone: [facility] 08-22-2024 15:09-0500 Diastolic blood pressure 80 mm[Hg] Scotty Jacquie DO Work Phone: [facility] 08-22-2024 15:09-0500 Systolic blood pressure 132 mm[Hg] Scotty Jacquie DO Work Phone: [facility] 08-14-2024 16:26-0500 Body mass index (BMI) [Ratio] 41.65 kg/m2 Scotty Jacquie DO Work Phone: [facility] 08-14-2024 16:26-0500 Body weight 106.65 kg Scotty Jacquie DO Work Phone: [facility] 08-14-2024 16:26-0500 Diastolic blood pressure 80 mm[Hg] Scotty Jacquie DO Work Phone: [facility] 08-14-2024 16:26-0500 Systolic blood pressure 130 mm[Hg] Scotty Jacquie DO Work Phone: [facility] 07-31-2024 15:22-0500 Body mass index (BMI) [Ratio] 41.81 kg/m2 Madisyn KERNS Work Phone: [facility] 07-31-2024 15:22-0500 Body weight 107.05 kg Madisyn KERNS Work Phone: [facility] 07-31-2024 15:22-0500 Diastolic blood pressure 72 mm[Hg] Madisyn KERNS Work Phone: [facility] 07-31-2024 15:22-0500 Systolic blood pressure 122 mm[Hg] Madisyn KERNS Work Phone: [facility] 07-17-2024 16:19-0500 Body mass index (BMI) [Ratio] 41.81 kg/m2 Scotty Jacquie DO Work Phone: [facility] 07-17-2024 16:19-0500 Body weight 107.05 kg Scotty Jacquie DO Work Phone: [facility] 07-17-2024 16:19-0500 Diastolic blood pressure 72 mm[Hg] Scotty Jacquie DO Work Phone: [facility] 07-17-2024 16:19-0500 Systolic blood pressure 122 mm[Hg] Scotty Jacquie DO Work Phone: [facility] 07-14-2024 11:13-0500 Body height 160 cm Aniceto Fox MD Work Phone: [facility] 07-14-2024 11:13-0500 Body mass index (BMI) [Ratio] 40.74 kg/m2 Aniceto Fox MD Work Phone: [facility] 07-14-2024 11:13-0500 Body weight 104.33 kg Aniceto Fox MD Work Phone: [facility] 07-14-2024 11:13-0500 Diastolic blood pressure 84 mm[Hg] Aniceto Fox MD Work Phone: [facility] 07-14-2024 11:13-0500 Heart rate 104 /min Aniceto Fox MD Work Phone: [facility] 07-14-2024 11:13-0500 Systolic blood pressure 144 mm[Hg] Aniceto Fox MD Work Phone: [facility] 06-15-2024 15:34-0500 Body mass index (BMI) [Ratio] 40.6 kg/m2 Madisyn KERNS Work Phone: [facility] 06-15-2024 15:34-0500 Body weight 103.96 kg Madisyn KERNS Work Phone: [facility] 06-15-2024 15:34-0500 Diastolic blood pressure 76 mm[Hg] Madisyn Gaona PA Work Phone: [facility] 06-15-2024 15:34-0500 Systolic blood pressure 122 mm[Hg] Madisyn Gaona PA Work Phone: [facility] 05-18-2024 12:07-0400 Body mass index (BMI) [Ratio] 39.5 kg/m2 Scotty Jacquie DO Work Phone: [facility] 05-18-2024 12:07-0400 Body weight 101.15 kg Scotty Jacquie DO Work Phone: [facility] 05-18-2024 12:07-0400 Diastolic blood pressure 78 mm[Hg] Scotty Jacquie DO Work Phone: [facility] 05-18-2024 12:07-0400 Systolic blood pressure 124 mm[Hg] Scotty Jacquie DO Work Phone: [facility] 04-20-2024 08:46-0400 Body mass index (BMI) [Ratio] 39.41 kg/m2 Madisyn Gaona PA Work Phone: [facility] 04-20-2024 08:46-0400 Body weight 100.92 kg Madisyn Gaona PA Work Phone: [facility] 04-20-2024 08:46-0400 Diastolic blood pressure 82 mm[Hg] Madisyn Gaona PA Work Phone: [facility] 04-20-2024 08:46-0400 Systolic blood pressure 122 mm[Hg] Madisyn Gaona PA Work Phone: [facility] 03-22-2024 11:34-0400 Body mass index (BMI) [Ratio] 39.5 kg/m2 Scotty Jacquie DO Work Phone: [facility] 03-22-2024 11:34-0400 Body weight 101.15 kg Scotty Jacquie DO Work Phone: [facility] 03-22-2024 11:34-0400 Diastolic blood pressure 74 mm[Hg] Scotty Jacquie DO Work Phone: [facility] 03-22-2024 11:34-0400 Systolic blood pressure 122 mm[Hg] Scotty Jacquie DO Work Phone: [facility] 01-31-2024 18:14-0400 Diastolic blood pressure 74 mm[Hg] MD Jacques Mccarthy Work Phone: [facility] 01-31-2024 18:14-0400 Heart rate 100 /min MD Jacques Mccarthy Work Phone: [facility] 01-31-2024 18:14-0400 Respiratory rate 18 /min MD Jacques Mccarthy Work Phone: [facility] 01-31-2024 18:14-0400 SaO2% (BldA) [Mass fraction] 100 % MD Jacques Mccarthy Work Phone: [facility] 01-31-2024 18:14-0400 Systolic blood pressure 156 mm[Hg] MD Jacques Mccarthy Work Phone: [facility] 01-31-2024 14:040 Body height 160.02 cm MD Jacques Mccarthy Work Phone: [facility] 01-31-2024 14:04-040 Body temperature 97.4 [degF] MD Jacques Mccarthy Work Phone: [facility] 01-31-2024 14:040 Body weight 98.5 kg MD Jacques Mccarthy Work Phone: [facility] Encounters Encounter Date Encounter Type Care [...] 08-16-2024 End: 08-16-2024 Documentation procedure Judie Stearns [facility] Start: 08-15-2024 End: 08-15-2024 Office outpatient visit 25 minutes Nubia Lundberg MD Work Phone: [facility] Comment on above: 32 weeks gestation o f (Primary Dx); Gestational diabetes mellitus (GDM) in third trimester, gestational diabetes method of control unspecified; Chronic hypertension affecting ; BMI 40.0-44.9, adult ([facility]); arrhythmia affecting , antepartum; Polyhydramnios affecting ; Separation of chorion and amnion membranes, antepartum Start: 08-15-2024 End: 08-15-2024 Orders Only Judie Stearns [facility] Comment on above: Abnormal ultrasonic finding [...] 07-31-2024 flow sheet Madisyn KERNS Work Phone: [facility] Comment on above: Third trimester preg red; 30 weeks gestation of Start: 07-31-2024 End: 07-31-2024 ambulatory MADISYN GAONA Not Available Start: 07-31-2024 End: 07-31-2024 Bamboo flowsheet Madisyn KERNS Work Phone: [facility] Start: 07-31-2024 End: 07-31-2024 Bamboo flowsheet Madisyn KENRS Work Phone: [facility] Start: 07-17-2024 End: 07-17-2024 [...] Aniceto Fox MD Work Phone: [facility] [place] Comment on above: Gestational diabetes mellitus (GDM), antepartum, gestational diabetes method of control unspecified (Primary Dx); Chronic hypertension affecting Start: 07-14-2024 End: 07-14-2024 ambulatory [facility] Start: 07-13-2024 End: 07-13-2024 Clinisync Result Encounter Madisyn KERNS Work Phone: [facility] Unsolicited Start: 07-13-2024 End: 07-13-2024 Clinisync Result Encounter Madisyn KERNS Work Phone: [facility] Unsolicited Start: 06-21-2024 End: 06-21-2024 Chart abstracting Aniceto Fox MD Work Phone: [facility] Start: 06-15-2024 End: 06-15-2024 flow sheet [...] Start: 05-18-2024 End: 05-18-2024 Bamboo flowsheet Scotty Jacquiebrandin SAUCEDO Work Phone: [facility] Start: 05-18-2024 End: 05-18-2024 Bamboo flowsheet Scotty Jacquie DO Work Phone: [facility] Start: 05-18-2024 End: 05-18-2024 ambulatory SCOTTY JACQUIE Not Available Start: 05-18-2024 End: 05-18-2024 flow sheet Scotty Jacquie DO Work Phone: [facility] Comment on above: 20 weeks gestation o f ; Second trimester Start: 04-20-2024 End: 04-20-2024 Bamboo flowsheet Madisyn KERNS Work Phone: [facility] Start: 04-20-2024 End: 04-20-2024 Bamboo flowsheet Madisyn KERNS Work Phone: [facility] Start: 04-20-2024 End: 04-20-2024 Office outpatient visit 15 minutes Madisyn KERNS Work Phone: [facility] Comment on above: Screening, , for anatomic survey; Well woman exam with routine gynecological exam; Screen for STD (sexually transmitted disease); Vaginal discharge; Second trimester Start: 04-20-2024 End: 04-20-2024 Patient encounter procedure Madisyn KERNS Work Phone: [facility] Start: 04-20-2024 End: 04-20-2024 ambulatory MADISYN GAONA Not Available Start: 03-22-2024 End: 03-22-2024 Bamboo flowsheet Scotty Jacquie DO Work Phone: [facility] Start: 03-22-2024 End: 03-22-2024 Bamboo flowsheet Scotty Jacquie DO Work Phone: [facility] Start: 03-22-2024 End: 03-22-2024 flow sheet Scotty Jacquie DO Work Phone: [facility] Comment on above: Second [...] patient visit MD Jacques Mccarthy Work Phone: [facility] Work Phone: Start: 10-08-2021 End: [...] Work Phone: Start: 08-30-2024 [facility] UA (CLEAN/CATCH) FINANCIAL INSTITUTION BRANCH MANAGER/MICRO IF IND. 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 Scotty Jacquie DO Work [...] Author Start: 08-15-2025 Tobacco Screening Tobacco Screening [facility] Start: 07-14-2025 Adult BMI Screening Adult BMI Screen ing [facility] Start: 06-21-2025 Adult BMI Screening Adult BMI Screen ing [facility] Start: 09-05-2024 End: 09-05-2024 Patient encounter procedure 09/05/2024 10:40 AM EST Routine [facility] [address] [place] [address] Scotty Dhillon, DO [address] [place] [address] [facility] Start: 08-30-2024 End: 08-30-2024 Patient encounter procedure 08/30/2024 10:30 AM EST Office Visit [facility] [address], [place] [phone] Eliud Wilson MD [address] [place] [address] [facility] Start: 08-29-2024 End: 08-29-2024 Patient encounter procedure [facility] Comment on above: Arrived Start: 08-22-2024 End: 08-22-2024 Patient encounter procedure 08/22/2024 2:30 PM EST Routine [facility] [address] [place] [address] Scotty Dhillon, DO [address] [place] [address] [facility] Start: 08-14-2024 End: 08-14-2024 Patient encounter procedure 08/14/2024 3:30 PM EST Routine [facility] [address] [place] [phone] Scotty Dhillon, DO [address] [place] [address] [facility] Start: 07-31-2024 End: 07-31-2024 Patient encounter procedure [facility] Comment on above: Arrived Start: 07-17-2024 End: 07-17-2024 Patient encounter procedure 07/17/2024 3:20 PM EST Routine [facility] [address] [place] [address] Scotty Dhillon, DO [address] [place] [address] [facility] Start: 07-17-2024 End: 07-17-2024 Professional / ancillary services management 07/17/2024 3:00 PM EST Ancillary Procedure [facility] [address] [place] [id number] [facility] Start: 07-17-2024 End: 07-17-2025 US biophysical profile w non stress test US biophysical profile w non stress test Imaging Routine Third trimester Gestational diabetes mellitus (GDM) in third trimester, gestational diabetes method of control unspecified Hypertension, unspecified type ([facility]) Expected: 07/17/2024 (Approximate), Expires: 07/17/2025 [facility] Comment on above: Expected: 07/17/2024 (Approximate), Expires: 07/17/2025 Start: 07-17-2024 End: 07-17-2025 US for US OB SCAN FOR GROWTH Imaging Routine Third trimester Gestational diabetes mellitus (GDM) in third trimester, gestational diabetes method of control unspecified Hypertension, unspecified type ([facility]) Expected: 07/17/2024 (Approximate), Expires: 07/17/2025 [facility] Work Phone: Comment on above: Expected: 07/17/2024 (Approximate), Expires: 07/17/2025 Start: 07-14-2024 End: 07-14-2024 Patient encounter procedure [facility] [place] Start: 06-15-2024 End: 06-15-2024 Patient encounter procedure 06/15/2024 3:30 PM EST Routine [facility] [address] [place] [phone] Madisyn Gaona PA [address] [place], [place] [id number] [facility] Start: 06-15-2024 End: 06-15-2025 CBC panel - Blood by Automated count CBC Lab Routine Diabetes mellitus screening Expected: 06/15/2024 (Approximate), Expires: 06/15/2025 [facility] Work Phone: Comment on above: Expected: 06/15/2024 (Approximate), Expires: 06/15/2025 Start: 06-15-2024 End: 06-15-2025 Measurement of glucose 1 hour after glucose challenge for glucose tolerance test Glucose tolerance, 1 hour Lab Routine Diabetes mellitus screening Expected: 06/15/2024 (Approximate), Expires: 06/15/2025 [facility] Comment on above: Expected: 06/15/2024 (Approximate), Expires: 06/15/2025 Start: 05-18-2024 End: 05-18-2024 Patient encounter procedure 05/18/2024 11:40 AM EDT Office Visit [facility] [address] [facility] [place] [address] Scotty Dhillon, DO [address] [place] [address] [facility] Start: 05-18-2024 End: 05-18-2024 Professional / ancillary services management 05/18/2024 10:30 AM EDT Ancillary Procedure [facility] [address] [facility] [place] [address] [facility] Start: 04-20-2024 End: 04-20-2025 [...] Start: 04-02-2024 Influenza vaccination Influenza Vacc ine [facility] Start: 03-22-2024 End: 03-22-2024 Patient encounter procedure 03/22/2024 11:20 AM EDT Routine [facility] [address] [place] [address] Scotty Dhillon, DO [address] [place] [address] Arrived [facility] Comment on above: Arrived Start: 2018 Screening for malign ant neoplasm of cervix Pap Smear [facility] Start: 2016 DTaP,Tdap and Td Vaccines (1 - Tdap) DTaP,Tdap and Td Vaccines (1 - Tdap) [facility] Start: 2015 Adult BMI Follow Up Plan Adult BMI Follow Up Plan [facility] Start: 2015 Adult BMI Screening Adult BMI Screen ing [facility] Start: 2009 Depression Screening Depression Scre ening [facility] Start: 2009 Tobacco Screening Tobacco Screening [facility] CBC W Auto Different ial panel - Blood CBC and differential Lab Routine Abnormal CBC Ordered: 03/22/2024 [facility] Work Phone: Comment on above: Ordered: 03/22/2024 Patient Education - Th e Second Month High Blood Pressure ED [facility] Work Phone: Patient referral [facility] Work Phone: Payers Date Payer Category Payer Medicaid [id number] 2024 Medicaid [id number] 2024 Self-pay 2023 Private Health Insurance [id number] 2023 Private Health Insurance [id number] 2022 Medicaid HMO [employer] [id number] 1997 Unknown [id number] 2.16.840.1.476178.3.579.2. 593 1997 Unknown [id number] 2.16.840.1.514245.3.579.2. 593 1997 Unknown [id number] 2.16.840.1.095318.3.579.2. 593 1997 Unknown [id number] 2.16.840.1.596342.3.579.2. 593 1997 Unknown [id number] 2.16.840.1.735244.3.579.2. 593 1997 Unknown [id number] 2.16.840.1.506125.3.579.2. 593 1997 Unknown [id number] 2.16.840.1.420841.3.579.2. 593 1997 Unknown [id number] 2.16.840.1.113251.3.579.2. 593 1997 Unknown [id number] 2.16.840.1.916569.3.579.2. 593 1997 Unknown [id number] 2.16.840.1.061477.3.579.2. 593 1997 Unknown [id number] 2.16.840.1.253925.3.579.2. 593 1997 Unknown [id number] 2.16.840.1.735564.3.579.2. 593 1997 Unknown [id number] 2.16.840.1.163379.3.579.2. 593 1997 Unknown [id number] 2.16.840.1.347273.3.579.2. 593 1997 Unknown [id number] 2.16.840.1.092231.3.579.2. 593 1997 Unknown [id number] 2.16.840.1.678081.3.579.2. 593 1997 Unknown [id number] 2.16.840.1.913518.3.579.2. 593 1997 Unknown [id number] 2.16.840.1.201175.3.579.2. 593 1997 Unknown [id number] 2.16.840.1.029737.3.579.2. 1286 1997 Unknown [id number] 2.16.840.1.077303.3.579.2. 1286 1997 Unknown [id number] 2.16.840.1.187679.3.579.2. 1285 1997 Unknown [id number] 2.16.840.1.592319.3.579.2. 9 1997 Unknown [id number] 2.16840.1.284667.3.579.2. 1258 1997 Unknown [id number] 2.16.840.1.009347.3.579.2. 1258 1997 Unknown [id number] 2.16.840.1.646891.3.579.2. 1258 1997 Unknown [id number] 2.16.840.1.382645.3.579.2. 1258 1997 Unknown [id number] 2.16.840.1.038831.3.579.2. 1258 1997 Unknown [id number] 2.16.840.1.822690.3.579.2. 9 1997 Unknown [id number] 2.16.840.1.423965.3.579.2. 1258 1997 Unknown [id number] 2.16.840.1.211727.3.579.2. 1258 1997 Unknown [id number] 2.16.840.1.908780.3.579.2. 1258 1997 Unknown [id number] 2.16.840.1.060831.3.579.2. 1259 1997 Unknown [id number] 2.16.840.1.045959.3.579.2. 1259 1997 Unknown [id number] 2.16.840.1.054768.3.579.2. 1259 1959 Unknown [id number] 1959 Unknown [id number] 1959 Unknown [id number] Unknown [id number] 2.16.840.1.743432.3.579.2. 531 Social History Date Type Detail Facility Start: 01-13-2024 [facility] Start: 01-31-2024 Tobacco smoking stat [facility] Never smoked tobacco (finding) [facility] Start: 1997 Sex Assigned At Female F [facility] Tobacco smoking stat [facility] Tobacco smoking consumption unknown [facility] Start: 1997 Sex assigned at Not on file [facility] Start: 08-23-2020 End: 06-21-2024 Gender identity Not on file [facility] Start: 10-07-2020 End: 07-14-2024 Tobacco smoking status PRIS Ex-smoker [facility] History of tobacco use Current smoker [facility] Start: 10-07-2020 End: 07-14-2024 Tobacco use and exposure Smokeless tobacco non-user [facility] Start: 06-21-2024 End: 08-15-2024 Alcoholic beverage intake Ex-drinker (finding) [facility] Start: 08-23-2020 End: 06-21-2024 History of Social function [facility] Childcare Unknown [facility] Start: 10-07-2020 End: 07-14-2024 Tobacco Comment quit 3 years ago [facility] Start: 08-23-2020 Sex Female (finding) [facility] History of tobacco use Cigarette Smoker P [facility] Medical Equipment Procedure Code Equipment Code Equipment Original Text Equipment Identifier Dates 1 strip by In Vi tro route Daily Use in the morning prior to breakfast, 1 hour after each meal for a total of 4times daily. [id number] Start: 07-17-2024 End: 08-16-2024 1 each by In Vit ro route Daily Use to check FSBS four times daily [id number] Start: 07-17-2024 End: 08-16-2024 Inject 1 each un jany the skin Daily [id number] Start: 08-23-2024 End: 09-22-2024 Inject 1 each un jany the skin See administration instructions Use four times daily with insulin pen. [id number] Start: 08-22-2024 End: 08-23-2024 Clinical Notes 02-05-2021 [...] nursing note reviewed. Exam conducted with a hand miter operator present. Vitals: Estimated body mass index [...] Dhillon DO documented in this encounter [facility] 08-22-2024 History of Present illness Narrative Reason for Appointment: Patient ID: Samantha Benjamin is a 29 y.o. female who presents for Routine Visit Patient presents today for Return OB appointment. MEDICATIONS Current Outpatient Medications Medication Instructions Alcohol Swabs (Alcohol Prep Pad) 70 % pads 1 Pad, Topical, Daily, Use four times daily to check FSBS. Blood Glucose Monitoring Suppl ([employer]-PoolCubes Glucometer) w/Device kit 1 kit, Does not [...] nursing note reviewed. Exam conducted with a hand miter operator present. Vitals: Estimated body mass index [...] times a day. Pt has appt at [facility] on 08/30/24. Reviewed glucose log with [...] return my call. documented in this encounter [facility] [place] 08-15-2024 History of Present illness Narrative Video Visit via Real-time Synchronous Audiovisual Provider Location: [facility]ICINE AT [address] [address] Patient Location: [facility] Office Patient Location Raisin Washer: None Video Visit Consent Statement: I discussed [...] that there are some limitations compared to [id number] evaluations. We elected to proceed. REASON FOR [...] outflow tracts on ultrasound BMI 40.0-44.9, adult ([facility]) Past Medical History: Diagnosis Date Anxiety Chronic [...] evening., Disp: , [place] [facility] [place]., [...] and the other consultants, we search on [employer] and all the available care everywhere epic I did review all the imaging studies of the patient available on EMR, ordered by the primary care physician and the other pre sales technical consultant HABITS: Patient activity no restrictions, diet [...] likely to fail compared to insulin. 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 BMI 40.0-44.9, adult ([facility]) Denies signs and symptoms of preeclampsia and [...] of labor - if you would like [facility] to start managing the patient diabetes [...] patient is in complete care of her automatic pilot mechanic. Patient does have ultrasound appointment scheduled with us. Thank you for allowing me to participate in Samantha Pierce Brandon . If there any questions please do not hesitate to contact us. Sincerely, Nubia Lundberg MD, FACOG (she/hers) Maternal- Medicine [facility] [address] [place] [address] documented in this encounter [facility] 08-14-2024 History of Present illness Narrative Reason for Appointment: Patient ID: Samantha Benjamin is a 29 y.o. female who presents for No chief complaint on file. Patient presents today for Return OB appointment. MEDICATIONS Current Outpatient Medications Medication Instructions Alcohol Swabs (Alcohol Prep Pad) 70 % pads 1 Pad, Topical, Daily, Use four times daily to check FSBS. Blood Glucose Monitoring Suppl (D-PoolCubes Glucometer) w/Device kit 1 kit, Does not [...] nursing note reviewed. Exam conducted with a hand miter operator present. Vitals: Estimated body mass index [...] Dhillon DO documented in this encounter [facility] 07-31-2024 History of Present illness Narrative [...] F Tarango documented in this encounter [facility] 07-17-2024 History of Present illness Narrative [...] Dhillon DO documented in this encounter [facility] 07-14-2024 History of Present illness Narrative [...] yes Have you been seen here at [facility] in a previous ? no Recent ER visits or hospitalizations? no Bring blood sugar log or meter with you today? (Please bring them with you for every visit at [facility]) no Flu vaccine (Jun-September)? no Any [...] outflow tracts on ultrasound BMI 40.0-44.9, adult ([facility]) Past Medical History: Diagnosis Date [...] evening., Disp: , [place]fl[place] [facility] [place]., [...] the primary care physician and the other pre sales technical consultant HABITS: Patient activity no restrictions, diet [...] her 3 hour glucose tolerance test, refer [facility] for diabetes management.. 8. Patient came more than 1 hour late for her ultrasound appointment and therefore has been rescheduled at our [facility] site. DISPOSITION: At this point the patient is in complete care of her automatic pilot mechanic. Patient does have ultrasound appointment scheduled with us. Thank you for allowing me to participate in Samantha Benjamin . If there any questions please do not hesitate to contact us. Sincerely, ANICETO FOX MD documented in this encounter [facility] 06-15-2024 History of Present illness Narrative Reason [...] F Tarango documented in this encounter [facility] 05-18-2024 History of Present illness Narrative [...] nursing note reviewed. Exam conducted with a hand miter operator present. Vitals: Estimated body mass index [...] of [facility]SAFP orders to have drawn at [facility] in [place]. Documented by Angela Butt LPN on behalf of: Scotty Dhillon DO documented in this encounter [facility] 04-20-2024 History of Present illness Narrative [...] F Tarango documented in this encounter [facility] 03-22-2024 History of Present illness Narrative [...] nursing note reviewed. Exam conducted with a hand miter operator present. Vitals: Estimated body mass index [...] or undercooked meat, and stay away from [facility]. Patient has been consulted regarding any [...] Dhillon DO documented in this encounter [facility] 02-05-2021 Note OPERATIVE NOTE OPERATION DATE: 02-06-21 ANESTHETIC:Spinal with Duramorph. LOTTERY MANAGER:ELVIA Prajapati PREOPERATIVE DIAGNOSIS: 1. Intrauterine at 37 [...] to the Recovery Room in stable condition. [facility] Signed and Approved by: DR SCOTTY DHILLON . 02/11/2021 11:15:00 [facility] 02-05-2021 Note DISCHARGE SUMMARY Discharge Date: 02-09-21 [...] Tylenol, any abdominal pain unrelieved with narcotics. [facility] Signed and Approved by: DR SCOTTY DHILLON . 02/25/2021 23:13:00 [facility] Evaluation note No assessment inform ation available [facility] Work Phone: Evaluation note [...] Chronic hypertension affecting documented [facility]* Diagnosis Third trimester state, incidental 28 weeks gestation of Gestational diabetes mellitus (GDM) in third trimester, gestational diabetes method of control unspecified Hypertension, unspecified type ([facility]) Gestational diabetes mellitus (GDM), antepartum, [...] unspecified Chronic hypertension affecting BMI 40.0-44.9, adult ([facility]) arrhythmia affecting , antepartum Abnormality in heart rate/rhythm, antepartum condition or complication Polyhydramnios affecting Separation of chorion and amnion membranes, antepartum documented in [facility] encounter [facility]* Diagnosis Abnormal ultrasonic finding on screening of mother, antepartum- Primary documented in this encounter [facility]* Diagnosis Third trimester state, incidental 34 weeks gestation of Insulin controlled gestational diabetes mellitus (GDM) during , antepartum [facility] Diagnosis 34 weeks gestation of Third trimester state, incidental documented in this encounter [facility]InstructionsNot on filedocumented in this encounter[facility] SystemInstructionsNot on filedocumented in this encounter[facility] SystemInstructions* Attachments The following attachments cannot be sent through Care Everywhere. * Preeclampsia ([place]) * labor ([place]) documented in this [facility] SystemInstructionsNot on file documented in this [facility] SystemInstructionsNot on file documented [facility] Summary Purpose Family [...] and content) DATE CREATED AUTHOR 10/15/2021 [facility] DATE CREATED AUTHOR AUTHOR'S ORGANIZ ATION 02/19/2024 [facility] DATE CREATED AUTHOR AUTHOR'S ORGANIZ ATION 07/17/2024 [facility] DATE CREATED AUTHOR AUTHOR'S ORGANIZ ATION 08/18/2024 [facility] DATE CREATED AUTHOR AUTHOR'S ORGANIZ ATION 08/18/2024 [facility] DATE CREATED AUTHOR AUTHOR'S ORGANIZ ATION 08/31/[address] [facility] EPIC Care Teams (unrecognized sec tion and content) Team Status: Active Member Role Status Dates Jacques Mccarthy MD Primary Care Provider Active Team Status: Inactive Member Role Status Dates Jacques Mccarthy MD Primary Care Provider Active Start: January 31, 2024 End: January 31, 2024 Terry Dudley DO Emergency Provider Active St art: January 31, 2024 End: January 31, 2024 Banding Machine Operator Relationship Specialty Start Date End Date Jacques Mccarthy MD [address] [place] [address] PCP - General Family Medicine 02/08/24 Banding Machine Operator Relationship Specialty Start Date End Date Jacques Mccarthy MD [address] [place] [address] PCP - General Family Medicine 02/08/24 Banding Machine Operator Relationship Specialty Start Date End Date Jacques Mccarthy MD PCP - General Family Medicine 10/07/20 Banding Machine Operator Relationship Specialty Start Date End Date Jacques Mccarthy MD [address] [place] [id number] PCP - General Family Medicine 02/08/24 Banding Machine Operator Relationship Specialty Start Date End Date Jacques Mccarthy MD [address] [place] [address] PCP - General Family Medicine 02/08/24 Banding Machine Operator Relationship Specialty Start Date End Date Jacques Mccarthy MD [address] [place] [address] PCP - General Family Medicine 02/08/24 Banding Machine Operator Relationship Specialty Start Date End Date Jacques Mccarthy MD PCP - General Family Medicine 10/07/20 Banding Machine Operator Relationship Specialty Start Date End Date Jacques Mccarthy MD [address] [facility] [place] [address] PCP - General Family Medicine 02/08/24 Banding Machine Operator Relationship Specialty Start Date End Date Jacques Mccarthy MD [address] [facility] [place] [address] PCP - General Family Medicine 02/08/24 Banding Machine Operator Relationship Specialty Start Date End Date Jacques Mccarthy MD [address] [facility] [place] [address] PCP - General Family Medicine 02/08/24 Banding Machine Operator Relationship Specialty Start Date End Date Jacques Mccarthy MD [address] [facility] [place] [address] PCP - General Family Medicine 02/08/24 Banding Machine Operator Relationship Specialty Start Date End Date Jacques Mccarthy MD [address] [facility] [place] [address] PCP - General Family Medicine 02/08/24 Banding Machine Operator Relationship Specialty Start Date End Date Jacques Mccarthy MD [address] [facility] [place] [address] PCP - General Family Medicine 02/08/24 Banding Machine Operator Relationship Specialty Start Date End Date Jacques Mccarthy MD [address] [facility] [place] [address] PCP - General Family Medicine 02/08/24 Banding Machine Operator Relationship Specialty Start Date End Date Jacques Mccarthy MD [address] [facility] [place] [address] PCP - General Family Medicine 02/08/24 Banding Machine Operator Relationship Specialty Start Date End Date Jacques Mccarthy MD PCP - General Family Medicine 10/07/20 Banding Machine Operator Relationship Specialty Start Date End Date Jacques Mccarthy MD PCP - General Family Medicine 10/07/20 Banding Machine Operator Relationship Specialty Start Date End Date Jacques Mccarthy MD PCP - General Family Medicine 10/07/20 Banding Machine Operator Relationship Specialty Start Date End Date Jacques Mccarthy MD [address] [facility] [place] [address] PCP - General Family Medicine 02/08/24 Banding Machine Operator Relationship Specialty Start Date End Date Jacques Mccarthy MD [address] [facility] [place] [address] PCP - General Family Medicine 02/08/24 Banding Machine Operator Relationship Specialty Start Date End Date Jacques Mccarthy MD [address] [facility] [place] [address] PCP - General Family Medicine 02/08/24 Goals [...] BE BASED ON THE PRIMARY CLINICAL RECORDS. [facility]. provides no warranty or guarantee of the accuracy or completeness of information in this document.
[2024-09-04 18:14] VITALS: BP 142/87; PULSE 103
[2024-09-04 18:33] VITALS: BP 135/86; PULSE 100
== END 2024-09-04 18:45 | disposition home or self-care (01) ==
LOC: FBCO 17:55 → FBC 18:10
PROVIDERS: PCP Family Medicine; Visit Provider Obstetrics & Gynecology
DX: O47.03 False labor before 37 completed weeks of gestation, third trimester (principal)
CPT/HCPCS: 59025

== ENCOUNTER 2024-09-07 00:28 | Outpatient (OUT) | payer OTHER, MEDICAID, SELFPAY ==
--- OUTSIDE RECORDS SUMMARY | 2024-09-07 00:31 | XMS_ITS | CCD ---
Author Organization [facility] Care Team Providers Care Chief Gauger Name Role Phone JACQUIE, DR FAJARDO Consulting [...] Admitting Unavailable JACQUIE, DR FAJARDO Attending Unavailable KARDANIELA, DR HILL Consulting Unavailable MIGUEL ÁNGEL, DR [...] MIGUEL ÁNGEL, DR HANNA Primary Care Unavailable COPEN, DR IRINEO Pompa Consulting Unavailable JACQUIE, DR [...] Unavailable PENELOPE BOLANOS Attending Unavailable ZIEBER, DR MICHLELE Matthews Consulting Unavailable LUIS MIGUEL, PENELOPE Consulting Unavailable DAIANAY, DR HANNA Primary Care Unavailable COPEN, DR IRINEO Pompa Consulting Unavailable JACQUIE, DR FAJARDO Attending Unavailable JACQUIE, DR FAJARDO Admitting Unavailable JACQUIE, DR FAJARDO Consulting Unavailable JACQUIE, DR FAJARDO Consulting Unavailable LUIS MIGUEL, PENELOPE Admitting Unavailable LUIS MIGUEL, PENELOPE Attending Unavailable HOY, DR HANNA Primary Care Unavailable ZIEBER, DR [...] Unavailable WEST, DR IRINEO Pompa Consulting Unavailable DAIANAY, DR HANNA [facility] Care Unavailable JACQUIE, DR FAJARDO Attending Unavailable JACQUIE, DR FAJARDO Consulting Unavailable JACQUIE, DR FAJARDO Attending Unavailable DAIANAY, DR HANNA [facility] Care Unavailable JACQUIE, DR FAJARDO Admitting Unavailable MD Jacques Mccarthy Primary Care Provider [phone] DO Terry Dudley Emergency Provider [phone] Terry Dudley Admitting Unavailable Terry Dudley Attending Unavailable Jacques Mccarthy Primary Care Unavailable Jacques Mccarthy MD Primary Care Provider [phone] Jacques Mccarthy MD Primary Care Provider [phone] ANICETO FOX Attending Unavailable SCOTTY DHILLON Referring [...] aspirin 81 mg delayed release oral tablet (7 sources) Platelet Aggregation Inhibitor, Nonsteroidal Anti-inflammatory Drug take 1 tablet by mouth in the morning aspirin 81 mg Take 1 tablet (81 mg total) by mouth in the morning. Active Blood Glucose Monitoring Suppl (D-Care Glucometer) [...] ml insulin glargine 100 unt/ml pen injector (12 sources) Insulin Analog Start: 08-23-2024 End: 09-22-2024 inject 10 [IU] by subcutaneous injection at bedtime insulin glargine (Lantus SoloStar) 100 UNIT/ML pen Indications: Insulin controlled gestational diabetes mellitus (GDM) during , antepartum Inject 10 Units under the skin at bedtime 3 mL 3 08/23/2024 09/22/2024 Active Start: 08-22-2024 LANTUS U-100 I NSULIN 100 unit/mL injection 0.1 mL (10 Units total) nightly. 08/22/2024 Active Start: 08-22-2024 End: 08-23-2024 inject 10 [IU] by subcutaneous injection in the evening insulin glargine (Lantus) 100 UNIT/ML injection Indications: Hyperglycemia , GESTATIONAL DIABETES Inject 10 Units under the skin in the evening 3 mL 08/22/2024 08/23/2024 Discontinued isopropyl alcohol 0.7 ml/ml medicated pad (20 sources) Start: 07-17-2024 ALCOHOL PREP P ADS pads, medicated Apply 1 Pad topically in the morning. 07/17/2024 Active labetalol hydrochloride 300 mg oral tablet (20 sources) beta-Adrenergic All Start: 08-05-2024 End: 09-22-2024 take 1 [...] labetaloL (NORMO DYNE) 100 mg tablet Take 3 tablets (300 mg total) by mouth in the morning and 3 tablets (300 mg total) at noon and 3 tablets (300 mg total) in the evening. Active labetaloL (NORMO DYNE) 100 mg tablet Take [...] (20 sources) Proton Pump Inhibitor Start: End: 4 take 1 capsule by mouth in the [...] 06/15/2025 Active ondansetron 4 mg oral tablet (8 sources) Serotonin-3 Receptor Antagonist take 1 tablet by mouth every eight hours as needed for nausea and vomiting ondansetron (ZOFRAN) 4 mg tablet Take 4 mg by mouth every 8 (eight) hours as needed for nausea or vomiting. Active ONETOUCH ULTRA2 METER misc (3 sources) Start: 4 ONETOUCH ULTRA2 METER misc USE TO CHECK FASTING BLOOD SUGAR BEFORE BREAKFAST & 1 HR AFTER EACH MEAL FOR TOTAL OF 4 TIMES DAILY 07/31/2024 Active vits62/FA/om3/dha/ep a ( GUMMY ORAL) (8 sources) vits62/FA/om3/dha/e pa ( GUMMY ORAL) Take by mouth. Active [...] trimester] Onset: 01-14-2021 Episodic Other complications of (8 sources) ultrasound scan abnormal; Translations: [Abnormal ultrasonic finding on screening of mother] Onset: 06-21-2024 06-21-2024 Episodic Other complications of (2 sources) Heartburn; Translations: [Other specified related conditions, second trimester] 06-15-2024 Episodic Other complications of (7 sources) condition affecting obstetrical care of mother; [...] Episodic Other nutritional; endocrine; and metabolic disorders (9 sources) Body mass index 40+ - severely [...] Polyhydramnios and other problems of amniotic cavity (16 sources) Polyhydramnios; Translations: [Polyhydramnios, unspecified trimester, not applicable or unspecified] Onset: 08-15-2024 08-15-2024 Episodic Pulmonary heart disease (2 sources) Pulmonary hypertension; Translations: [Pulmonary hypertension, unspecified] 09-05-2024 Chronic Residual codes; unclassified (2 sources) Gestation period, [...] [34 weeks gestation of ] 08-22-2024 Episodic Residual codes; unclassified (2 sources) Gestation period, 35 weeks; Translations: [35 weeks gestation of ] 09-05-2024 Episodic Unclassified (1 source) CONTACT W/AND (SUSP) [...] Test Name Value Interpretation Reference Range Facility [facility] UA (CLEAN/CATCH) INSOLE PRESSER/KEYLA RO IF IND.on 08-30-2024 BILIRUBIN URINE Negative NEGATIVE [facility] BLOOD URINE Negative NEGATIVE [facility] Clarity (U) CLEAR CLEAR [facility] Color (U) YELLOW YELLOW [facility] GLUCOSE URINE UA Negative NEGATIVE mg/dL [facility] Interpretation and review of laboratory results Abnormal [facility] Ketones Ql (U) 15 mg/dL Abnormal NEGATIVE [facility] Leukocyte esterase Test strip Ql (U) Negative NEGATIVE [facility] NITRITE URINE Negative NEGATIVE [facility] pH (U) 6.0 [pH] 5.0 - 9.0 [facility] Protein (U) [Mass/Vol] 30 mg/dL Abnormal NEG/TRACE NO [facility] SPECIFIC GRAVITY URINE >=1.030 Abnormal 1.005 - 1.025 [facility] URINE MICROSCOPIC INDICATED YES [facility] UROBILINOGEN URINE 0.2 EU/dL 0.2 - 1.0 EU/dL [facility] US OB BPP W NON-STRESS on 08-30-[address] [address] Ultrasound Report Signed Patient: SAMANTHA BENJAMIN MR#: [id number] : 1995 Acct:[id number] Age/Sex: 29 / F ADM Date: 08/30/24 Loc: [facility] 250-[address]: Scotty Dhillon D.O. Ordering Physician: Scotty Dhillon D.O. Date of Service: 08/30/24 Procedure(s): US OB BPP w non-stress Accession Number(s): [id number] cc: Scotty Dhillon D.O.; Jacques Mccarthy M.D. [place] [id number] Patient Name: SAMANTHA BENJAMIN MRN: [id number] date: 1995 Sex: F Assigned Patient Location: [facility] Current Patient Location: [facility] Accession/Order Number: [id number] Exam Date: 08/30/2024 13:43 Report Date: 08/30/2024 14:27 At the request of: SCOTTY DHILLON Procedure: US OB BPP w non-stress Ultrasound biophysical profile CLINICAL: Evaluate well-being. Clinical gestational age of 34 weeks 6 days. TECHNIQUE: Dedicated ultrasound imaging of the fetus was performed to include the orthotic practitioner's evaluation of biophysical profile. FINDINGS: Comparison: Ultrasound [...] Signed By: 08/30/24 1430 DD/ 1427 TD/TT: Industrial Technologist: [facility] RadiologyHyunogadelfo day MD - 08/30/2024 [place] [address] Ultrasound Report Signed Patient: SAMANTHA BENJAMIN MR#: [id number] : 1995 Acct:[id number] Age/Sex: 29 / F ADM Date: 08/30/24 Loc: [facility] 250-[address]: Scotty Dhillon D.O. Ordering Physician: Scotty Dhillon D.O. Date of Service: 08/30/24 Procedure(s): US OB BPP w non-stress Accession Number(s): [id number] cc: Scotty Dhillon D.O.; Jacques Mccarthy M.D. The [place] [id number] Patient Name: SAMANTHA BENJAMIN MRN: [id number] date: 1995 Sex: F Assigned Patient Location: [facility] Current Patient Location: [facility] Accession/Order Number: [id number] Exam Date: 08/30/2024 13:43 Report Date: 08/30/2024 14:27 At the request of: SCOTTY DHILLON Procedure: US OB BPP w non-stress Ultrasound biophysical profile CLINICAL: Evaluate well-being. Clinical gestational age of 34 weeks 6 days. TECHNIQUE: Dedicated ultrasound imaging of the fetus was performed to include the orthotic practitioner's evaluation of biophysical profile. FINDINGS: Comparison: Ultrasound [...] Signed By: 08/30/24 1430 DD/ 1427 TD/TT: Industrial Technologist: [facility] Radiology Study observation (narrative) [facility] US OB BPP W NON-STRESS Ordered By: Radiologist Radiology on 08-30-2024 [facility] Work Phone: Urinalysis macro (dipstick) panel (U)on 08-29-2024 Bilirubin, UA Negative Negative - 4(70) +++ mg/dL [facility] Blood, UA Negative Negative - 50 Hardeep/mcL [facility] Clarity, UA Clear [facility] Color, UA Yellow [facility] Glucose, UA Positive Negative - 1999(110) ++++ mg/dL [facility] Comment on above: 100 Interpretation and review of laboratory results Abnormal [facility] Ketones, UA Negative Negative - 160(16) ++++ mg/dL [facility] Leukocytes, UA Negative Negative - 500+++ Renee/mcL [facility] Nitrite, UA Negative Negative - Positive [facility] pH, UA 7 5 - 9 [facility] Protein, UA Positive Negative - 1999(20) ++++ mg/dL [facility] Comment on above: 30 Spec Grav, UA 1.02 1 - 1.03 [facility] Urobilinogen, UA 1.0 0.2 - 12 mg/dL [facility] Urinalysis macro (dipstick) panel (U)on 08-22-2024 Bilirubin, UA Negative Negative - 4(70) +++ mg/dL [facility] Blood, UA Negative Negative - 50 Hardeep/mcL [facility] Clarity, UA Clear [facility] Color, UA Yellow [facility] Glucose, UA Negative Negative - 1999(110) ++++ mg/dL [facility] Interpretation and review of laboratory results Normal [facility] Ketones, UA Negative Negative - 160(16) ++++ mg/dL [facility] Leukocytes, UA Negative Negative - 500+++ Renee/mcL [facility] Nitrite, UA Negative Negative - Positive [facility] pH, UA 7 5 - 9 [facility] Protein, UA Negative Negative - 1999(20) ++++ mg/dL [facility] Spec Grav, UA 1.015 1 - 1.03 [facility] Urobilinogen, UA 0.2 0.2 - 12 mg/dL [facility] Urinalysis macro (dipstick) panel (U)on 08-14-2024 Bilirubin, UA Negative Negative - 4(70) +++ mg/dL [facility] Blood, UA Positive Negative - 50 Hardeep/mcL [facility] Comment on above: trace-intact Clarity, UA Clear [facility] Color, UA Yellow [facility] Glucose, UA Negative Negative - 1999(110) ++++ mg/dL [facility] Interpretation and review of laboratory results Abnormal [facility] Ketones, UA Positive Negative - 160(16) ++++ mg/dL [facility] Comment on above: 40 Leukocytes, UA Negative Negative - 500+++ Renee/mcL [facility] Nitrite, UA Negative Negative - Positive [facility] pH, UA 6 5 - 9 [facility] Protein, UA Trace Negative - 1999(20) ++++ mg/dL [facility] Spec Grav, UA 1.02 1 - 1.03 [facility] Urobilinogen, UA 0.2 0.2 - 12 mg/dL [facility] ALL CBC WITH AUTO DIFFon BASOPHILS ABSOLUTE AUTO 0.1 [facility] Basophils/100 WBC (Bld) 0.3 % 0.2 - 2.0 % [facility] Eosinophils/100 WBC (Bld) 0.6 % Low 0.9 - 7.0 % [facility] Erythrocyte distribution width (RBC) [Ratio] 12.2 % 11.0 - 15.0 % [facility] Hematocrit (Bld) [Volume fraction] 36.7 % 36.0 - 48.0 % [facility] Hemoglobin (Bld) [Mass/Vol] 12.5 g/dL 12.0 - 16.0 g/dL [facility] IMMATURE GRANULOCYTES ABS AUTO 0.33 High [facility] Immature granulocytes/100 WBC (Bld) 2 % High 0.0 - 0.5 % [facility] Interpretation and review of laboratory results Abnormal [facility] LYMPHOCYTES ABSOLUTE AUTO 1.6 [facility] Lymphocytes/100 WBC (Bld) 9.9 % Low 20.5 - 60.0 % [facility] MCH (RBC) [Entitic mass] 29.7 pg 26.7 - 34.0 pg [facility] MCHC (RBC) [Mass/Vol] 34.1 g/dL 29.9 - 35.2 g/dL [facility] MCV (RBC) [Entitic vol] 87.2 fL 81.0 - 99.0 fL [facility] MONOCYTES ABSOLUTE AUTO 1 High [facility] Monocytes/100 WBC (Bld) 6.3 % 1.7 - 12.0 % [facility] NEUTROPHILS ABSOLUTE AUTO 13.2 High [facility] Neutrophils/100 WBC (Bld) 80.9 % High 43.0 - 75.0 % [facility] Platelet mean volume (Bld) [Entitic vol] 10.5 fL 9.5 - 13.5 fL [facility] EO # 0.1 [facility] PLT 247 [facility] RBC 4.21 [facility] WBC 16.3 High [facility] ALL CBC WITH AUTO DIFFon BASOPHILS ABSOLUTE AUTO 0.1 [facility] Basophils/100 WBC (Bld) 0.3 % 0.2 - 2.0 % [facility] Eosinophils/100 WBC (Bld) 0.2 % Low 0.9 - 7.0 % [facility] Erythrocyte distribution width (RBC) [Ratio] 12.1 % 11.0 - 15.0 % [facility] Hematocrit (Bld) [Volume fraction] 35.3 % Low 36.0 - 48.0 % [facility] Hemoglobin (Bld) [Mass/Vol] 12.1 g/dL 12.0 - 16.0 g/dL [facility] IMMATURE GRANULOCYTES ABS AUTO 0.31 High [facility] Immature granulocytes/100 WBC (Bld) 1.7 % High 0.0 - 0.5 % [facility] Interpretation and review of laboratory results Abnormal [facility] LYMPHOCYTES ABSOLUTE AUTO 1.4 [facility] Lymphocytes/100 WBC (Bld) 7.9 % Low 20.5 - 60.0 % [facility] MCH (RBC) [Entitic mass] 29.8 pg 26.7 - 34.0 pg [facility] MCHC (RBC) [Mass/Vol] 34.3 g/dL 29.9 - 35.2 g/dL [facility] MCV (RBC) [Entitic vol] 86.9 fL 81.0 - 99.0 fL [facility] MONOCYTES ABSOLUTE AUTO 1.3 High [facility] Monocytes/100 WBC (Bld) 7.1 % 1.7 - 12.0 % [facility] NEUTROPHILS ABSOLUTE AUTO 15.1 High [facility] Neutrophils/100 WBC (Bld) 82.8 % High 43.0 - 75.0 % [facility] Platelet mean volume (Bld) [Entitic vol] 10.5 fL 9.5 - 13.5 fL [facility] EO # 0 [facility] PLT 217 [facility] RBC 4.06 Low [facility] WBC 18.2 High [facility] UA (CLEAN/CATCH) INSOLE PRESSER/KEYLA RO IF IND.on 08-04-2024 BILIRUBIN URINE Negative NEGATIVE [facility] BLOOD URINE Negative NEGATIVE [facility] Clarity (U) CLEAR CLEAR [facility] Color (U) YELLOW YELLOW [facility] GLUCOSE URINE UA 500 mg/dL Abnormal NEGATIVE [facility] Interpretation and review of laboratory results Abnormal [facility] Ketones Ql (U) Negative NEGATIVE mg/dL [facility] Leukocyte esterase Test strip Ql (U) Negative NEGATIVE [facility] NITRITE URINE Negative NEGATIVE [facility] pH (U) 6.0 [pH] 5.0 - 9.0 [facility] PROTEIN URINE Negative NEG/TRACE mg/dL [facility] SPECIFIC GRAVITY URINE 1.025 1.005 - 1.025 [facility] URINE MICROSCOPIC INDICATED NO [facility] UROBILINOGEN URINE 0.2 EU/dL 0.2 - 1.0 EU/dL [facility] Urinalysis macro (dipstick) panel (U)on 07-31-2024 Bilirubin, UA Negative Negative - 4(70) +++ mg/dL [facility] Blood, UA Positive Negative - 50 Hardeep/mcL [facility] Comment on above: small Clarity, UA Clear [facility] Color, UA Yellow [facility] Glucose, UA Positive Negative - 1999(110) ++++ mg/dL [facility] Comment on above: 250 Interpretation and review of laboratory results Abnormal [facility] Ketones, UA Negative Negative - 160(16) ++++ mg/dL [facility] Leukocytes, UA Negative Negative - 500+++ Renee/mcL [facility] Nitrite, UA Negative Negative - Positive [facility] pH, UA 6 5 - 9 [facility] Protein, UA Trace Negative - 1999(20) ++++ mg/dL [facility] Spec Grav, UA 1.02 1 - 1.03 [facility] Urobilinogen, UA 0.2 0.2 - 12 mg/dL [facility] Urinalysis macro (dipstick) panel (U)on 07-17-2024 Bilirubin, UA Negative Negative - 4(70) +++ mg/dL [facility] Blood, UA Negative Negative - 50 Hardeep/mcL [facility] Clarity, UA Clear [facility] Color, UA Yellow [facility] Glucose, UA Positive Negative - 1999(110) ++++ mg/dL [facility] Comment on above: 500 Interpretation and review of laboratory results Abnormal [facility] Ketones, UA Positive Negative - 160(16) ++++ mg/dL [facility] Comment on above: TRACE Leukocytes, UA Negative Negative - 500+++ Renee/mcL [facility] Nitrite, UA Negative Negative - Positive [facility] pH, UA 5.5 5 - 9 [facility] Protein, UA Negative Negative - 1999(20) ++++ mg/dL [facility] Spec Grav, UA 1.02 1 - 1.03 [facility] Urobilinogen, UA 0.2 0.2 - 12 mg/dL [facility] Glucose random or fasting- P OCTon 07-14-2024 External Glucose Fasting Or Random (Fbs) 169 [facility] ALL CBC WITH AUTO DIFFon BASOPHILS ABSOLUTE AUTO 0.1 [facility] Basophils/100 WBC (Bld) 0.3 % 0.2 - 2.0 % [facility] Eosinophils/100 WBC (Bld) 0.3 % Low 0.9 - 7.0 % [facility] Erythrocyte distribution width (RBC) [Ratio] 12.1 % 11.0 - 15.0 % [facility] Hematocrit (Bld) [Volume fraction] 37.3 % 36.0 - 48.0 % [facility] Hemoglobin (Bld) [Mass/Vol] 12.7 g/dL 12.0 - 16.0 g/dL [facility] IMMATURE GRANULOCYTES ABS AUTO 0.32 High [facility] Immature granulocytes/100 WBC (Bld) 1.8 % High 0.0 - 0.5 % [facility] Interpretation and review of laboratory results Abnormal [facility] LYMPHOCYTES ABSOLUTE AUTO 1.5 [facility] Lymphocytes/100 WBC (Bld) 8.3 % Low 20.5 - 60.0 % [facility] MCH (RBC) [Entitic mass] 30.3 pg 26.7 - 34.0 pg [facility] MCHC (RBC) [Mass/Vol] 34 g/dL 29.9 - 35.2 g/dL [facility] MCV (RBC) [Entitic vol] 89 fL 81.0 - 99.0 fL [facility] MONOCYTES ABSOLUTE AUTO 0.9 High [facility] Monocytes/100 WBC (Bld) 5.2 % 1.7 - 12.0 % [facility] NEUTROPHILS ABSOLUTE AUTO 15 High [facility] Neutrophils/100 WBC (Bld) 84.1 % High 43.0 - 75.0 % [facility] Platelet mean volume (Bld) [Entitic vol] 10.4 fL 9.5 - 13.5 fL [facility] EO # 0.1 [facility] PLT 255 [facility] RBC 4.19 Low [facility] WBC 17.8 High [facility] Urinalysis macro (dipstick) panel (U)on 06-15-2024 Bilirubin, UA Negative Negative - 4(70) +++ mg/dL [facility] Blood, UA Negative Negative - 50 Hardeep/mcL [facility] Clarity, UA Clear [facility] Color, UA Yellow [facility] Glucose, UA Positive Negative - 1999(110) ++++ mg/dL [facility] Interpretation and review of laboratory results Abnormal [facility] Ketones, UA Negative Negative - 160(16) ++++ mg/dL [facility] Leukocytes, UA Positive Negative - 500+++ Renee/mcL [facility] Nitrite, UA Negative Negative - Positive [facility] pH, UA 5.5 5 - 9 [facility] Protein, UA Negative Negative - 1999(20) ++++ mg/dL [facility] Spec Grav, UA 1.02 1 - 1.03 [facility] Urobilinogen, UA 1.0 0.2 - 12 mg/dL [facility] Urinalysis macro (dipstick) panel (U)on 05-18-2024 Bilirubin, UA Negative Negative - 4(70) +++ mg/dL [facility] Blood, UA Negative Negative - 50 Hardeep/mcL [facility] Clarity, UA Clear [facility] Color, UA Yellow [facility] Glucose, UA Negative Negative - 1999(110) ++++ mg/dL [facility] Interpretation and review of laboratory results Normal [facility] Ketones, UA Negative Negative - 160(16) ++++ mg/dL [facility] Leukocytes, UA Negative Negative - 500+++ Renee/mcL [facility] Nitrite, UA Negative Negative - Positive [facility] pH, UA 7 5 - 9 [facility] Protein, UA Negative Negative - 1999(20) ++++ mg/dL [facility] Spec Grav, UA 1.025 1 - 1.03 [facility] Urobilinogen, UA 0.2 0.2 - 12 mg/dL [facility] Urinalysis macro (dipstick) panel (U)on 04-20-2024 Bilirubin, UA Positive Negative - 4(70) +++ mg/dL [facility] Comment on above: small Blood, UA Negative Negative - 50 Hardeep/mcL [facility] Clarity, UA Clear [facility] Color, UA Yellow [facility] Glucose, UA Negative Negative - 1999(110) ++++ mg/dL [facility] Interpretation and review of laboratory results Abnormal [facility] Ketones, UA Positive Negative - 160(16) ++++ mg/dL [facility] Comment on above: trace Leukocytes, UA Negative Negative - 500+++ Renee/mcL [facility] Nitrite, UA Negative Negative - Positive [facility] pH, UA 6.5 5 - 9 [facility] Protein, UA Trace Negative - 1999(20) ++++ mg/dL [facility] Spec Grav, UA 1.030 1 - 1.03 [facility] Urobilinogen, UA 1.0 0.2 - 12 mg/dL [facility] [facility] partial thrombopla stin time (aPTT) in platelet poor plasma by coagulation aOrdered By: Terry Dudley on 01-31-2024 aPTT Coag (PPP) [Time] 26.1 s 25.1-36.5 [facility] Comment on above: A hematocrit value g reater than 55% may lead to inaccurate results in coagulation testing. Patients having hematocrit values >55% require a special collection tube for coagulation studies. Please contact the laboratory at [phone] for redraw instructions. Alanine aminotransferase [En zymatic activity/volume] in Serum or PlasmaOrdered By: Terry Dudley on 01-31-2024 ALT [Catalytic activity/Vol] 22 U/L Normal 7-52 [facility] Comment on above: Performed By: #### H S TROP, PTT, CMP, DDIMER, BNP, CK, PT, CBC #### [facility] [address] Albumin [Mass/volume] in Ser um or Plasma by Bromocresol green (BCG) dye binding methoOrdered By: Terry Dudley on 01-31-2024 Albumin BCG dye [Mass/Vol] 4.7 g/dL 3.5-5.7 [facility] Alkaline phosphatase [Enzyma tic activity/volume] in Serum or PlasmaOrdered By: Terry Dudley on 01-31-2024 ALP [Catalytic activity/Vol] 67 U/L Normal 34-104 [facility] Comment on above: Performed By: #### H S TROP, PTT, CMP, DDIMER, BNP, CK, PT, CBC #### [facility] [address] Aspartate aminotransferase [ Enzymatic activity/volume] in Serum or PlasmaOrdered By: Terry Dudley on 01-31-2024 AST [Catalytic activity/Vol] 17 U/L Normal 13-39 [facility] Comment on above: Performed By: #### H S TROP, PTT, CMP, DDIMER, BNP, CK, PT, CBC #### [facility] [address] [place] [id number] [facility] Automated basophil %Ordered By: Terry Dudley on 01-31-2024 Basophils/100 WBC (Bld) 0.6 % Normal . [facility] Comment on above: Performed By: #### H S TROP, PTT, CMP, DDIMER, BNP, CK, PT, CBC #### [facility] [address] [place] [address] Automated basophil countOrde red By: Terry Dudley on 01-31-2024 Basophils (Bld) [#/Vol] 0.1 10*3/uL Normal 0.0-0.2 [facility] Comment on above: Result Comment: PERF ORMED BY: [place] [address] PATHOLOGIST CRYPTOGRAPHER CARLOS HITCHCOCK M.D. Performed By: #### H S TROP, PTT, CMP, DDIMER, BNP, CK, PT, CBC #### [address] Automated blood monocyte cou ntOrdered By: Terry Dudley on 01-31-2024 Monocytes (Bld) [#/Vol] 1.3 10*3/uL High 0.0-0.8 [facility] Comment on above: Performed By: #### H S TROP, PTT, CMP, DDIMER, BNP, CK, PT, CBC #### [address] Automated eosinophil %Ordere d By: Terry Dudley on 01-31-2024 Eosinophils/100 WBC (Bld) 0.3 % Normal . [facility] Comment on above: Performed By: #### H S TROP, PTT, CMP, DDIMER, BNP, CK, PT, CBC #### [address] Automated eosinophil countOr dered By: Terry Dudley on 01-31-2024 Eosinophils (Bld) [#/Vol] 0.1 10*3/uL Normal 0.0-0.45 [facility] Comment on above: Performed By: #### H S TROP, PTT, CMP, DDIMER, BNP, CK, PT, CBC #### [address] Automated monocyte %Ordered By: Terry Dudley on 01-31-2024 Monocytes/100 WBC (Bld) 7.5 % Normal . [facility] Comment on above: Performed By: #### H S TROP, PTT, CMP, DDIMER, BNP, CK, PT, CBC #### [address] Automated neutrophil %Ordere d By: Terry Dudley on 01-31-2024 Neutrophils/100 WBC (Bld) 79.8 % Normal . [facility] Comment on above: Performed By: #### H S TROP, PTT, CMP, DDIMER, BNP, CK, PT, CBC #### [address] BNP ser/plasOrdered By: Delgado Dudley on 01-31-2024 Natriuretic peptide B (Bld) [Mass/Vol] 30.0 pg/mL Normal 5-100 [facility] Comment on above: Result Comment: PERF ORMED BY: [place] [address] PATHOLOGIST CRYPTOGRAPHER CARLOS HITCHCOCK M.D. Performed By: #### H S TROP, PTT, CMP, DDIMER, BNP, CK, PT, CBC #### [address] Bilirubin Test strip Ql (U)O rdered By: Terry Dudley on 01-31-2024 Bilirubin Ql (U) Negative Negative [facility] Bilirubin.total [Mass/volume ] in Serum or PlasmaOrdered By: Terry Dudley on 01-31-2024 Bilirubin [Mass/Vol] 0.5 mg/dL Normal 0.3-1.0 [facility] Comment on above: Performed By: #### H S TROP, PTT, CMP, DDIMER, BNP, CK, PT, CBC #### [address] Calcium [Mass/volume] in Ser um or PlasmaOrdered By: Terry Dudley on 01-31-2024 Calcium [Mass/Vol] 9.6 mg/dL Normal 8.6-10.3 [facility] Comment on above: Performed By: #### H S TROP, PTT, CMP, DDIMER, BNP, CK, PT, CBC #### [address] Carbon dioxide, total [Moles /volume] in Serum or PlasmaOrdered By: Terry Dudley on 01-31-2024 CO2 [Moles/Vol] 30.1 mmol/L Normal 21.0-31.[address] [facility] Comment on above: Performed By: #### H S TROP, PTT, CMP, DDIMER, BNP, CK, PT, CBC #### [address] Chloride [Moles/volume] in S marty or PlasmaOrdered By: Terry Dudley on 01-31-2024 Chloride [Moles/Vol] 101 mmol/L Normal 98-107 [facility] Comment on above: Performed By: #### H S TROP, PTT, CMP, DDIMER, BNP, CK, PT, CBC #### [address] Color of Urine by AutoOrdere d By: Terry Dudley on 01-31-2024 Color (U) Colorless Normal Yellow [facility] Comment on above: Order Comment: Name Collection Type:: Clean-Voided Midstream Performed By: #### U A, UHCG #### [address] Complete Blood Count Auto Di ffon 01-31-2024 Mean Corpuscular HGB Conc 34.6 g/dL Normal 32.0-35.0 [facility] Comment on above: Performed By: #### H S TROP, PTT, CMP, DDIMER, BNP, CK, PT, CBC #### [address] Monocytes/100 WBC (Bld) 14.85 % Normal 0.00-20.00 [facility] Comment on above: Performed By: #### H S TROP, PTT, CMP, DDIMER, BNP, CK, PT, CBC #### [address] NRBC% 0.0 /100{WBC} Normal 0-0.5 [facility] Comment on above: Performed By: #### H S TROP, PTT, CMP, DDIMER, BNP, CK, PT, CBC #### [address] Comprehensive Metabolic Pane urszula 01-31-2024 Albumin [Mass/Vol] 4.7 g/dL Normal 3.5-5.7 [facility] Comment on above: Performed By: #### H S TROP, PTT, CMP, DDIMER, BNP, CK, PT, CBC #### [address] Creatinine Clr Calc Pharmacy 119.17 Normal [facility] Comment on above: Result Comment: PERF ORMED BY: [place] [address] PATHOLOGIST CRYPTOGRAPHER CARLOS HITCHCOCK M.D. Performed By: #### H S TROP, PTT, CMP, DDIMER, BNP, CK, PT, CBC #### [address] GFR/1.73 sq M.predicted MDRD (S/P/Bld) [Vol rate/Area] mL/min/{1.73_m2} Normal [facility] Comment on above: Performed By: #### H S TROP, PTT, CMP, DDIMER, BNP, CK, PT, CBC #### [address] Creatine kinase [Enzymatic a ctivity/volume] in Serum or PlasmaOrdered By: Terry Dudley on 01-31-2024 CK [Catalytic activity/Vol] 76 U/L Normal 30-223 [facility] Comment on above: Performed By: #### H S TROP, PTT, CMP, DDIMER, BNP, CK, PT, CBC #### [place] [address] [place] Creatinine [Mass/volume] in Serum or PlasmaOrdered By: Terry Dudley on 01-31-2024 Creatinine [Mass/Vol] 0.80 mg/dL Normal 0.60-1.20 [facility] Comment on above: Performed By: #### H S TROP, PTT, CMP, DDIMER, BNP, CK, PT, CBC #### [place] [id number] [facility] D-Dimer High Sensitivityon 0 01-31-2024 D-Dimer High Sensitivity < 200 Normal 0-243 [facility] Comment on above: Result Comment: [...] coagulation studies. Please contact the laboratory at [phone] for redraw instructions. PERFORMED BY: [place] [address] PATHOLOGIST CRYPTOGRAPHER CARLOS HITCHCOCK M.D. Performed By: #### H S TROP, PTT, CMP, DDIMER, BNP, CK, PT, CBC #### [place] [id number] [facility] ECG 12 lead ECGon 01-31-2024 ECG 12 lead ECG [facility] [place] [address] Electrocardiograph Report Signed Patient: Samantha Benjamin MR#: [id number] : 1995 Acct:[id number] Age/Sex: 28 / F ADM Date: 01/31/24 Loc: ER Room: Type: [facility] ER Attending Dr: Ordering Provider: Terry Dudley [...] Terry Dudley DO 192 Normal [facility] Erythrocyte distribution wid th [Ratio] by Automated countOrdered By: Terry Dudley on 01-31-2024 Erythrocyte distribution width (RBC) [Ratio] 12.4 % Normal 11.9-15.3 [facility] Comment on above: Performed By: #### H S TROP, PTT, CMP, DDIMER, BNP, CK, PT, CBC #### [facility] [address] Erythrocytes [#/volume] in B lood by Automated countOrdered By: Terry Dudley on 01-31-2024 RBC (Bld) [#/Vol] 4.93 10*6/uL Normal 3.60-5.00 [facility] Comment on above: Performed By: #### H S TROP, PTT, CMP, DDIMER, BNP, CK, PT, CBC #### [facility] [address] Fibrin D-dimer [Presence] in Platelet poor plasma by Latex agglutinationOrdered By: Terry Dudley on 01-31-2024 Fibrin D-dimer LA Ql (PPP) < 200 ng/mL 0-243 [facility] Comment on above: The reference range [...] coagulation studies. Please contact the laboratory at [phone] for redraw instructions. Glucose [Mass/volume] in Ser um or PlasmaOrdered By: Terry Dudley on 01-31-2024 Glucose [Mass/Vol] 91 mg/dL Normal 70-100 [facility] Comment on above: ADA recommended refe rence rangeRandom Glucose Reference Range is dependent on time and content of last meal. Glucose of more than 200 mg/dL in a nonstressed, ambulatory subject supports the diagnosis of Diabetes Mellitus. Result Comment: Beauty om Glucose Reference Range is dependent on time and content of last meal. Glucose of more than 200 mg/dL in a nonstressed, ambulatory subject supports the diagnosis of Diabetes Mellitus. ADA recommended reference range Performed By: #### H S TROP, PTT, CMP, DDIMER, BNP, CK, PT, CBC #### [facility] [address] [place] [address] [facility] Glucose [Mass/volume] in Uri ne by Test stripOrdered By: Terry Dudley on 01-31-2024 Glucose Test strip (U) [Mass/Vol] Normal mg/dL Normal [facility] HCG ( test) IA.rapi d Ql (U)Ordered By: Terry Dudley on 01-31-2024 HCG ( test) Ql (U) Positive [facility] HCG,Urineon 01-31-2024 Beta HCG ( test) Ql (U) Positive [facility] Comment on above: Order Comment: Name Collection Type:: Clean-Voided Midstream Result Comment: PERF ORMED BY: [address] [address] PATHOLOGIST CRYPTOGRAPHER CARLOS HITCHCOCK M.D. Performed By: #### H S TROP, PTT, CMP, DDIMER, BNP, CK, PT, CBC #### [address] [address] [facility] Hematocrit [Volume Fraction] of Blood by Automated countOrdered By: Terry Benitezpk on 01-31-2024 Hematocrit (Bld) [Volume fraction] 45.1 % Normal 34.0-46.4 [facility] Comment on above: Performed By: #### H S TROP, PTT, CMP, DDIMER, BNP, CK, PT, CBC #### [facility] [address] Hemoglobin Test strip Ql (U) Ordered By: Terry Dudley on 01-31-2024 Hemoglobin Ql (U) Negative Negative [facility] Hemoglobin [Mass/volume] in BloodOrdered By: Terry Dudley on 01-31-2024 Hemoglobin (Bld) [Mass/Vol] 15.6 g/dL High 11.8-15.4 [facility] Comment on above: Performed By: #### H S TROP, PTT, CMP, DDIMER, BNP, CK, PT, CBC #### [facility] [address] INR in Platelet poor plasma by Coagulation assayOrdered By: Terry Dudley on 01-31-2024 INR Coag (PPP) [Relative time] 1.2 {INR} Normal [facility] Comment on above: INR Therapeutic Rang [...] DDIMER, BNP, CK, PT, CBC #### [address] Ketones [Presence] in Urine by Test stripOrdered By: Terry Dudley on 01-31-2024 Ketones Ql (U) Negative Normal Negative [facility] Comment on above: Order Comment: Name Collection Type:: Clean-Voided Midstream Performed By: #### U A, UHCG #### [place] [address] [place] Leukocyte esterase [Presence ] in Urine by Test stripOrdered By: Terry Dudley on 01-31-2024 Leukocyte esterase Test strip Ql (U) Negative Normal Negative [facility] Comment on above: Order Comment: Name Collection Type:: Clean-Voided Midstream Performed By: #### U A, UHCG #### [place] [address] [place] Leukocytes [#/volume] correc edna for nucleated erythrocytes in Blood by Automated counOrdered By: Terry Dudley on 01-31-2024 WBC corrected for nucl RBC Auto (Bld) [#/Vol] 17.5 10*3/uL High 3.8-11.6 [facility] Leukocytes [#/volume] in Blo od by Automated countOrdered By: Terry Dudley on 01-31-2024 WBC (Bld) [#/Vol] 17.5 10*3/uL High 3.8-11.6 [facility] Comment on above: Performed By: #### H S TROP, PTT, CMP, DDIMER, BNP, CK, PT, CBC #### [facility] [address] [place] [address] [place] Lymphocytes [#/volume] in Bl ood by Automated countOrdered By: Terry Dudley on 01-31-2024 Lymphocytes (Bld) [#/Vol] 2.1 10*3/uL Normal 1.00-4.8 [facility] Comment on above: Performed By: #### H S TROP, PTT, CMP, DDIMER, BNP, CK, PT, CBC #### [facility] [address] [place] [address] [place] Lymphocytes/100 leukocytes i n Blood by Automated countOrdered By: Terry Dudley on 01-31-2024 Lymphocytes/100 WBC (Bld) 11.8 % Normal . [facility] Comment on above: Performed By: #### H S TROP, PTT, CMP, DDIMER, BNP, CK, PT, CBC #### [facility] [address] MCH [Entitic mass] by Automa edna countOrdered By: Terry Dudley on 01-31-2024 MCH (RBC) [Entitic mass] 31.7 pg Normal 24.7-34.3 [facility] Comment on above: Performed By: #### H S TROP, PTT, CMP, DDIMER, BNP, CK, PT, CBC #### [facility] [address] MCHC Auto (RBC) [Mass/Vol]Or dered By: Terry Dudley on 01-31-2024 MCHC (RBC) [Mass/Vol] 34.6 g/dL 32.0-35.0 [facility] MCV [Entitic volume] by Auto mated countOrdered By: Terry Dudley on 01-31-2024 MCV (RBC) [Entitic vol] 91.4 fL Normal 80-100 [facility] Comment on above: Performed By: #### H S TROP, PTT, CMP, DDIMER, BNP, CK, PT, CBC #### [facility] [address] [place] [address] Monocyte distribution width [Entitic volume] in Blood by AutomatedOrdered By: Terry Dudley on 01-31-2024 Monocyte distribution width Auto (Bld) [Entitic vol] 14.85 % 0.00-20.00 [facility] Neutrophils [#/volume] in Bl ood by Automated countOrdered By: Terry Dudley on 01-31-2024 Neutrophils (Bld) [#/Vol] 14.0 10*3/uL High 1.8-7.7 [facility] Comment on above: Performed By: #### H S TROP, PTT, CMP, DDIMER, BNP, CK, PT, CBC #### [facility] [address] [place] [address] Nitrite Test strip Ql (U)Ord ered By: Terry Dudley on 01-31-2024 Nitrite Ql (U) Negative Negative [facility] No Panel InformationOrdered By: Terry Luis Enrique on 01-31-2024 Estimated GFR (CKD-EPI) > 60.0 mL/Min [facility] Creatinine Clearance (Chem 119.17 [facility] Nucleated erythrocytes [Pres ence] in Blood by Automated countOrdered By: Terry Dudley on 01-31-2024 Nucleated RBC Auto Ql (Bld) 0.0 /100{WBC} 0-0.5 [facility] Partial Thromboplastin Timeo n 01-31-2024 aPTT Coag (Bld) [Time] 26.1 s Normal 25.1-36.5 [facility] Comment on above: Result Comment: A he matocrit value greater than 55% may lead to inaccurate results in coagulation testing. Patients having hematocrit values >55% require a special collection tube for coagulation studies. Please contact the laboratory at [phone] for redraw instructions. Performed By: #### H S TROP, PTT, CMP, DDIMER, BNP, CK, PT, CBC #### [facility] [address] [place] [address] [place] Platelet mean volume [Entiti c volume] in Blood by Automated countOrdered By: Terry Dudley on 01-31-2024 Platelet mean volume (Bld) [Entitic vol] 8.7 fL Normal 6.3-10.7 [facility] Comment on above: Performed By: #### H S TROP, PTT, CMP, DDIMER, BNP, CK, PT, CBC #### [facility] [address] [place] [address] [place] Platelets [#/volume] in Bloo d by Automated countOrdered By: Terry Dudley on 01-31-2024 Platelets (Bld) [#/Vol] 297 10*3/uL Normal 150-450 [facility] Comment on above: Performed By: #### H S TROP, PTT, CMP, DDIMER, BNP, CK, PT, CBC #### [facility] [address] [place] [id number] [place] Potassium [Moles/volume] in Serum or PlasmaOrdered By: Terry Dudley on 01-31-2024 Potassium [Moles/Vol] 3.4 mmol/L Low 3.5-5.1 [facility] Comment on above: Performed By: #### H S TROP, PTT, CMP, DDIMER, BNP, CK, PT, CBC #### [facility] [address] Protein Test strip (U) [Mass /Vol]Ordered By: Terry Dudley on 01-31-2024 Protein (U) [Mass/Vol] Negative Negative [facility] Protein [Mass/volume] in Ser um or PlasmaOrdered By: Terry Dudley on 01-31-2024 Protein [Mass/Vol] 7.7 g/dL Normal 6.4-8.9 [facility] Comment on above: Performed By: #### H S TROP, PTT, CMP, DDIMER, BNP, CK, PT, CBC #### [facility] [address] Prothrombin time (PT)Ordered By: Terry Dudley on 01-31-2024 PT Coag (PPP) [Time] 14.0 s High 9.0-12.9 [facility] Comment on above: A hematocrit value g reater than 55% may lead to inaccurate results in coagulation testing. Patients having hematocrit values >55% require a special collection tube for coagulation studies. Please contact the laboratory at [phone] for redraw instructions. Result Comment: A he matocrit value greater than 55% may lead to inaccurate results in coagulation testing. Patients having hematocrit values >55% require a special collection tube for coagulation studies. Please contact the laboratory at [phone] for redraw instructions. Performed By: #### H S TROP, PTT, CMP, DDIMER, BNP, CK, PT, CBC #### [facility] [address] [place] [id number] [facility] Serum globulin measurement b y calculation (mass/volume)Ordered By: Terry Dudley on 01-31-2024 Globulin (S) [Mass/Vol] 3.0 g/dL Normal [facility] Comment on above: Performed By: #### H S TROP, PTT, CMP, DDIMER, BNP, CK, PT, CBC #### [address] Serum or plasma albumin/glob ulin mass ratioOrdered By: Terry Dudley on 01-31-2024 Albumin/Globulin [Mass ratio] 1.6 {ratio} Normal [facility] Comment on above: Performed By: #### H S TROP, PTT, CMP, DDIMER, BNP, CK, PT, CBC #### [address] Serum or plasma anion gap de terminationOrdered By: Terry Dudley on 01-31-2024 Anion gap [Moles/Vol] 8.3 mmol/L Normal 6.0-15.0 [facility] Comment on above: Performed By: #### H S TROP, PTT, CMP, DDIMER, BNP, CK, PT, CBC #### [address] Sodium [Moles/volume] in Ser um or PlasmaOrdered By: Terry Dudley on 01-31-2024 Sodium [Moles/Vol] 136 mmol/L Normal 136-145 [facility] Comment on above: Performed By: #### H S TROP, PTT, CMP, DDIMER, BNP, CK, PT, CBC #### [address] Specific gravity Test strip (U) [Rel density]Ordered By: Terry Dudley on 01-31-2024 Specific gravity (U) [Rel density] 1.005 1.001-1.03 0 [facility] Troponin I High Sensitivityo n 01-31-2024 Troponin I High Sensitivity 3.5 pg/mL Normal 0.0-15.0 [facility] Comment on above: Result Comment: PERF ORMED BY: [place] [address] PATHOLOGIST CRYPTOGRAPHER CARLOS HITCHCOCK M.D. Performed By: #### H S TROP, PTT, CMP, DDIMER, BNP, CK, PT, CBC #### [facility] [address] [place] [address] [place] Troponin I.cardiac [Mass/vol ume] in Serum or Plasma by Detection limit <= 0.01 ng/Ordered By: Terrythom Dudley on 01-31-2024 Troponin I.cardiac DL <= 0.01 ng/mL [Mass/Vol] 3.5 pg/mL 0.0-15.0 [facility] Urea nitrogen [Mass/volume] in Serum or PlasmaOrdered By: Terry Dudley on 01-31-2024 Urea nitrogen [Mass/Vol] 10 mg/dL Normal 7-25 [facility] Comment on above: Performed By: #### H S TROP, PTT, CMP, DDIMER, BNP, CK, PT, CBC #### [facility] [address] Urinalysison 01-31-2024 Bilirubin,Urine Negative Normal Negative [facility] Comment on above: Order Comment: Name Collection Type:: Clean-Voided Midstream Performed By: #### U A, UHCG #### [address] Glucose Ql (U) Normal Normal Normal [facility] Comment on above: Order Comment: Name Collection Type:: Clean-Voided Midstream Performed By: #### U A, UHCG #### [place] [address] [place] Nitrite,Urine Negative Normal Negative [facility] Comment on above: Order Comment: Name Collection Type:: Clean-Voided Midstream Performed By: #### U A, UHCG #### [place] [address] [place] Occult Blood,Urine Negative Normal Negative [facility] Comment on above: Order Comment: Name Collection Type:: Clean-Voided Midstream Performed By: #### U A, UHCG #### [place] [id number] [place] Protein,Urine Negative Normal Negative [facility] Comment on above: Order Comment: Name Collection Type:: Clean-Voided Midstream Performed By: #### U A, UHCG #### [place] [id number] [place] Specificy [place],Urine 1.005 Normal 1.001-1.03 0 [facility] Comment on above: Order Comment: Name Collection Type:: Clean-Voided Midstream Performed By: #### U A, UHCG #### [address] Urobilinogen,Urine Normal Normal Normal [facility] Comment on above: Order Comment: Name Collection Type:: Clean-Voided Midstream Performed By: #### U A, UHCG #### [address] Urine appearanceOrdered By: Terry Dudley on 01-31-2024 Appearance (U) Clear Normal Clear [facility] Comment on above: Order Comment: Name Collection Type:: Clean-Voided Midstream Performed By: #### U A, UHCG #### [address] Urobilinogen Test strip (U) [Mass/Vol]Ordered By: Terry Dudley on 01-31-2024 Urobilinogen (U) [Mass/Vol] Normal mg/dL Normal [facility] pH of Urine by Test stripOrd ered By: Terry Dudley on 01-31-2024 pH (U) 6.5 [pH] Normal 5.0-9.0 [facility] Comment on above: Order Comment: Name Collection Type:: Clean-Voided Midstream Performed By: #### U A, UHCG #### [address] PAP ACOG PANEL 2: 23 to 31on 10-14-2021 . . Normal [facility] Comment on above: Performed By: #### P TT #### [facility] [address] [address] Kaelastephanie Dimas Age Gdln ACOG Testing Normal [facility] Comment on above: Performed By: #### P TT #### [facility] [address] [id number] Kaelastephanie Dimas DIAGNOSIS: Comment Normal [facility] Comment on above: Result Comment: NEGA TIVE FOR INTRAEPITHELIAL LESION OR MALIGNANCY. CELLULAR CHANGES ASSOCIATED WITH INFLAMMATION ARE PRESENT. Performed By: #### P TT #### [facility] [address] [place] [address] Kaela Dimas Methodology: Comment Normal [facility] Comment on above: Result Comment: This liquid based ThinPrep(R) pap test was screened with the use of an image guided system. Performed By: #### P TT #### [facility] [address] [place] [address] Kaela Dimas Note: Comment Normal [facility] Comment on above: Result Comment: The Pap smear is a screening test designed to aid in the detection of premalignant and malignant conditions of the uterine cervix. It is not a diagnostic procedure and should not be used as the sole means of detecting cervical cancer. Both false-positive and false-negative reports do occur. . Performed By: #### P TT #### [facility] [address] [place] [address] Kaela Dimas Performed by: Comment Normal [facility] Comment on above: Result Comment: Nancy Collins, Metallurgical Engineer (ASCP) Performed By: #### P TT #### [facility] [address] [place] [address] Kaela iDmas Reflex Criteria: Comment Normal [facility] Comment on above: Result Comment: The HPV DNA reflex criteria were not met with this specimen result therefore, no HPV testing was performed. . Performed By: #### P TT #### [facility] [address] [place] [address] Kaela Dimas Specimen adequacy: Comment Normal [facility] Comment on above: Result Comment: Sati sfactory for evaluation. Endocervical and/or squamous metaplastic cells (endocervical component) are present. Performed By: #### P TT #### [facility] [address] [place] [address] Kaela Dimas CBC AUTO DIFFon 02-07-2021 BASO # 0.1 103/ul Normal 0.0-0.1 [facility] Comment on above: Performed By: #### C BC #### [facility] [address] [place] [address] Kaela Judie Basophils/100 WBC (Bld) 0.3 % Normal 0.2-2.0 [facility] Comment on above: Performed By: #### C BC #### [facility] [address] [place] [address] Kaela Judie EO # 0.1 103/ul Normal 0.0-0.7 [facility] Comment on above: Performed By: #### C BC #### [facility] [address] [place] [address] Kaela Judie Eosinophils/100 WBC (Bld) 0.5 % Critically low 0.9-7.0 [facility] Comment on above: Performed By: #### C BC #### [facility] [address] [place] [address] Kaela Judie Erythrocyte distribution width (RBC) [Ratio] 12.3 % Normal 11.0-15.0 [facility] Comment on above: Performed By: #### C BC #### [facility] [address] [place] [address] Kaela Judie Hematocrit (Bld) [Volume fraction] 33.8 % Critically low 36.0-48.0 [facility] Comment on above: Performed By: #### C BC #### [facility] [address] [place] [address] Kaela Judie Hemoglobin (Bld) [Mass/Vol] 11.6 g/dL Critically low 12.0-16.0 [facility] Comment on above: Performed By: #### C BC #### [facility] [address] [place] [address] Kaela Judie IG # 0.20 10e3/ul Critically high 0.00-0.03 [facility] Comment on above: Performed By: #### C BC #### [facility] [address] [place] [address] Kaela Judie IG % 1.2 % Critically high 0.0-0.5 [facility] Comment on above: Performed By: #### C BC #### [facility] [address] [place] [address] Kaela Judie LYMPH # 1.6 103/ul Normal 1.2-3.8 [facility] Comment on above: Performed By: #### C BC #### [facility] [address] [place], [place] [id number] Kaela Dimas Lymphocytes/100 WBC (Bld) 9.2 % Critically low 20.5-60.0 [facility] Comment on above: Performed By: #### C BC #### [facility] [address] [place], [place] [id number] Kaela Dimas MANUAL DIFF REQ NO Normal [facility] Comment on above: Performed By: #### C BC #### [facility] [address] [place] [address] Kaela Dimas MCH (RBC) [Entitic mass] 30.8 pg Normal 26.7-34.0 [facility] Comment on above: Performed By: #### C BC #### [facility] [address] [place] [address] Kaela Dimas MCHC (RBC) [Mass/Vol] 34.3 g/dL Normal 29.9-35.2 [facility] Comment on above: Performed By: #### C BC #### [facility] [address] [place] [address] Kaela Dimas MCV (RBC) [Entitic vol] 89.7 fL Normal 81.0-99.0 [facility] Comment on above: Performed By: #### C BC #### [facility] [address] [place] [address] Kaela Dimas MONO # 0.9 103/ul Critically high 0.3-0.8 [facility] Comment on above: Performed By: #### C BC #### [facility] [address] [place], [place] [id number] Kaela Dimas Monocytes/100 WBC (Bld) 5.5 % Normal 1.7-12.0 [facility] Comment on above: Performed By: #### C BC #### [facility] [address] [place] [address] Kaela Judie NEUT # 14.1 103/ul Critically high 1.4-6.5 [facility] Comment on above: Performed By: #### C BC #### [facility] [address] [place], [place] [address] Kaela Dimas Neutrophils/100 WBC (Bld) 83.3 % Critically high 43.0-75.0 [facility] Comment on above: Performed By: #### C BC #### [facility] [address] [place], [place] [address] Kaela Dimas Platelet mean volume (Bld) [Entitic vol] 11.0 fL Normal 9.5-13.5 [facility] Comment on above: Performed By: #### C BC #### [facility] [address] [place], [place] [id number] Kaela Dimas PLT 192 103/ul Normal 150-450 [facility] Comment on above: Performed By: #### C BC #### [facility] [address] [place], [place] [id number] Kaela Dimas RBC 3.77 106/ul Critically low 4.20-5.40 [facility] Comment on above: Performed By: #### C BC #### [facility] [address] [place] [address] Kaela Dimas WBC 16.9 103/ul Critically high 4.0-11.0 [facility] Comment on above: Performed By: #### C BC #### [facility] [address] [place] [address] Kaela Dimas ASYMPTOMATIC COVID-19 ANTIGE Non 02-05-2021 EUA Statement SEE BELOW Normal [facility] Comment on above: Result [...] sooner. Performed By: #### G TT3P #### [facility] [address] [place], [place] [id number] Kaela Dimas SARS-CoV-2 (COVID-19) RNA RIGOBERTO+probe Ql (Unsp spec) Negative Normal NEGATIVE [facility] Comment on above: Result Comment: Nega tive results are presumptive. They do not preclude infection and should not be used as the sole basis for treatment decisions. Additional confirmatory testing by a molecular method should be considered. Performed By: #### G TT3P #### [facility] [address] [place] [address] Kaela Dimas CBC AUTO DIFFon 02-05-2021 BASO # 0.1 103/ul Normal 0.0-0.1 [facility] Comment on above: Performed By: #### C BC #### [facility] [address] [place] [address] Kaela Dimas Basophils/100 WBC (Bld) 0.3 % Normal 0.2-2.0 [facility] Comment on above: Performed By: #### C BC #### [facility] [address] [place] [address] Kaela Dimas EO # 0.1 103/ul Normal 0.0-0.7 [facility] Comment on above: Performed By: #### C BC #### [facility] [address] [place] [address] Kaela Dimas Eosinophils/100 WBC (Bld) 0.3 % Critically low 0.9-7.0 [facility] Comment on above: Performed By: #### C BC #### [facility] [address] [place], [place] [id number] Kaela Dimas Erythrocyte distribution width (RBC) [Ratio] 12.0 % Normal 11.0-15.0 [facility] Comment on above: Performed By: #### C BC #### [facility] [address] [place] [address] Kaela Dimas Hematocrit (Bld) [Volume fraction] 36.9 % Normal 36.0-48.0 [facility] Comment on above: Performed By: #### C BC #### [facility] [address] [place], [place] [address] Kaela Dimas Hemoglobin (Bld) [Mass/Vol] 12.7 g/dL Normal 12.0-16.0 [facility] Comment on above: Performed By: #### C BC #### [facility] [address] [place], [place] [address] Kaela Dimas IG # 0.19 10e3/ul Critically high 0.00-0.03 [facility] Comment on above: Performed By: #### C BC #### [facility] [address] [place] [address] Kaela Dimas IG % 1.0 % Critically high 0.0-0.5 [facility] Comment on above: Performed By: #### C BC #### [facility] [address] [place] [address] Kaela Judie LYMPH # 1.4 103/ul Normal 1.2-3.8 [facility] Comment on above: Performed By: #### C BC #### [facility] [address] [place], [place] [id number] Kaela Dimas Lymphocytes/100 WBC (Bld) 7.6 % Critically low 20.5-60.0 [facility] Comment on above: Performed By: #### C BC #### [facility] [address] [place], [place] [id number] Kaela Dimas MANUAL DIFF REQ NO Normal [facility] Comment on above: Performed By: #### C BC #### [facility] [address] [place] [address] Kaela Dimas MCH (RBC) [Entitic mass] 30.5 pg Normal 26.7-34.0 [facility] Comment on above: Performed By: #### C BC #### [facility] [address] [place] [address] Kaela Dimas MCHC (RBC) [Mass/Vol] 34.4 g/dL Normal 29.9-35.2 [facility] Comment on above: Performed By: #### C BC #### [facility] [address] [place], [place] [address] Kaela Dimas MCV (RBC) [Entitic vol] 88.5 fL Normal 81.0-99.0 [facility] Comment on above: Performed By: #### C BC #### [facility] [address] [place], [place] [address] Kaelastephanie Dimas MONO # 1.0 103/ul Critically high 0.3-0.8 [facility] Comment on above: Performed By: #### C BC #### [facility] [address] [place] [id number] Kaelastephanie Sahuen Monocytes/100 WBC (Bld) 5.5 % Normal 1.7-12.0 [facility] Comment on above: Performed By: #### C BC #### [facility] [address] [place], [place] [address] Kaelastephanie Sahuen NEUT # 15.7 103/ul Critically high 1.4-6.5 [facility] Comment on above: Performed By: #### C BC #### [facility] [address] [place], [place] [address] Kaela Dimas Neutrophils/100 WBC (Bld) 85.3 % Critically high 43.0-75.0 [facility] Comment on above: Performed By: #### C BC #### [facility] [address] [place], [place] [id number] Kaela Dimas Platelet mean volume (Bld) [Entitic vol] 11.8 fL Normal 9.5-13.5 [facility] Comment on above: Performed By: #### C BC #### [facility] [address] [place] [address] Kaela Judie PLT 226 103/ul Normal 150-450 [facility] Comment on above: Performed By: #### C BC #### [facility] [address] [place], [place] [address] Kaela Judie RBC 4.17 106/ul Critically low 4.20-5.40 [facility] Comment on above: Performed By: #### C BC #### [facility] [address] [place] [address] Kaela Dimas WBC 18.5 103/ul Critically high 4.0-11.0 [facility] Comment on above: Performed By: #### C BC #### [facility] [address] [place] [address] Kaela Dimas DRUG SCREEN RAPID (URINE)on 02-05-2021 AMP Negative Normal NEGATIVE [facility] Comment on above: Performed By: #### D RUGRPD #### [facility] [address] [place] [address] Kaela Judie BAR Negative Normal NEGATIVE [facility] Comment on above: Performed By: #### D RUGRPD #### [facility] [address] [place] [address] Kaela Judie BUP Negative Normal NEGATIVE [facility] Comment on above: Performed By: #### D RUGRPD #### [facility] [address] [place] [address] Kaelastephanie Dimas BZO Negative Normal NEGATIVE [facility] Comment on above: Performed By: #### D RUGRPD #### [facility] [address] [place] [address] Kaela Dimas JERRY Negative Normal NEGATIVE [facility] Comment on above: Performed By: #### D RUGRPD #### [facility] [address] [place] [address] Kaela Dimas CUT-OFFS SEE BELOW Normal [facility] Comment on above: Result [...] ng/mL Performed By: #### D RUGRPD #### [facility] [address] [place] [id number] Kaela Judie DRUG CUT HEADER DRUG CLASS TEST SYST EM CUT-OFF CONCENTRATIONS ARE FOLLOWS: Normal [facility] Comment on above: Performed By: #### D RUGRPD #### [facility] [address] [place] [address] Kaela Judie mAMP Negative Normal NEGATIVE [facility] Comment on above: Performed By: #### D RUGRPD #### [facility] [address] [place] [address] Kaela Judie MTD Negative Normal NEGATIVE [facility] Comment on above: Performed By: #### D RUGRPD #### [facility] [address] [place] [address] Kaela Judie OPI Negative Normal NEGATIVE [facility] Comment on above: Performed By: #### D RUGRPD #### [facility] [address] [place] [address] Kaela Judie OXY Negative Normal NEGATIVE [facility] Comment on above: Performed By: #### D RUGRPD #### [facility] [address] [place] [address] Kaela Judie PCP Negative Normal NEGATIVE [facility] Comment on above: Performed By: #### D RUGRPD #### [facility] [address] [place] [address] Kaela Judie PPX Negative Normal NEGATIVE [facility] Comment on above: Performed By: #### D RUGRPD #### [facility] [address] [place] [address] Kaela Judie TCA Negative Normal NEGATIVE [facility] Comment on above: Performed By: #### D RUGRPD #### [facility] [address] [place] [id number] Kaela Judie THC Negative Normal NEGATIVE [facility] Comment on above: Performed By: #### D RUGRPD #### [facility] [address] [place] [address] Kaela Judie TYPE AND SCREENon 02-05-2021 TYPE AND SCREEN Negative Normal [facility] Comment on above: Performed By: #### P TT #### [facility] [address] [place], [place] [address] Kaela Dimas GROUP B STREP CULTUREon S. agalactiae Ag Ql (Unsp spec) Culture Observations: NEGATIVE FOR GROUP B STREPTOCOCCUS. Normal [facility] Comment on above: Performed By: #### P TT #### [facility] [address] [place], [place] [address] Kaela Dimas US PREG BIOPHY W NON [...] 08:23 Normal [facility] US PREG GROWTHon 01-30-2021 US PREG GROWTH [...] MICHELLE LANE Date: 2021-01-30 08:25 Normal [facility] US PREG BIOPHY W NON [...] by: MICHELLE LANE Date: 2021-01-23 07:22 Normal [facility] US PREG BIOPHY W NON STRESSo n [...] by: MICHELLE LANE Date: 2021-01-16 07:31 Normal [facility] PROTEIN 24HR URINEon 021 T PROT, 24 HR UR 603.9 mg/24 hr Critically high 42.0-225.0 [facility] Comment on above: Performed By: #### G TT3P #### [facility] [address] [place] [address] Kaela Dimas UR PROT 12.2 mg/dL Critically high <=12.0 [facility] Comment on above: Performed By: #### G TT3P #### [facility] [address] [place], [place] [id number] Kaela Dimas UR TOT VOL 4950 ml/24 HR Normal [facility] Comment on above: Performed By: #### G TT3P #### [facility] [address] [place], [place] [address] Kaela Judie CBC AUTO DIFFon 01-13-2021 BASO # 0.0 103/ul Normal 0.0-0.1 [facility] Comment on above: Performed By: #### G TT3P #### [facility] [address] [place] [address] Kaela Dimas Basophils/100 WBC (Bld) 0.2 % Normal 0.2-2.0 [facility] Comment on above: Performed By: #### G TT3P #### [facility] [address] [place] [address] Kaelastephanie Dimas EO # 0.1 103/ul Normal 0.0-0.7 [facility] Comment on above: Performed By: #### G TT3P #### [facility] [address] [place] [address] Kaela Dimas Eosinophils/100 WBC (Bld) 0.6 % Critically low 0.9-7.0 [facility] Comment on above: Performed By: #### G TT3P #### [facility] [address] [place] [address] Kaela Dimas Erythrocyte distribution width (RBC) [Ratio] 11.7 % Normal 11.0-15.0 [facility] Comment on above: Performed By: #### G TT3P #### [facility] [address] [place], [place] [address] Kaela Dimas Hematocrit (Bld) [Volume fraction] 34.5 % Critically low 36.0-48.0 [facility] Comment on above: Performed By: #### G TT3P #### [facility] [address] [place], [place] [address] Kaela Judie Hemoglobin (Bld) [Mass/Vol] 12.1 g/dL Normal 12.0-16.0 [facility] Comment on above: Performed By: #### G TT3P #### [facility] [address] [place] [address] Kaela Dimas IG # 0.20 10e3/ul Critically high 0.00-0.03 [facility] Comment on above: Performed By: #### G TT3P #### [facility] [address] [place] [address] Kaelastephanie Dimas IG % 1.2 % Critically high 0.0-0.5 [facility] Comment on above: Performed By: #### G TT3P #### [facility] [address] [place] [address] Kaela Dimas LYMPH # 1.5 103/ul Normal 1.2-3.8 [facility] Comment on above: Performed By: #### G TT3P #### [facility] [address] [place] [address] Kaela Dimas Lymphocytes/100 WBC (Bld) 8.6 % Critically low 20.5-60.0 [facility] Comment on above: Performed By: #### G TT3P #### [facility] [address] [place] [address] Kaela Dimas MANUAL DIFF REQ NO Normal [facility] Comment on above: Performed By: #### G TT3P #### [facility] [address] [place] [address] Kaela Dimas MCH (RBC) [Entitic mass] 30.6 pg Normal 26.7-34.0 [facility] Comment on above: Performed By: #### G TT3P #### [facility] [address] [place] [address] Kaela Dimas MCHC (RBC) [Mass/Vol] 35.1 g/dL Normal 29.9-35.2 [facility] Comment on above: Performed By: #### G TT3P #### [facility] [address] [place] [address] Kaela Dimas MCV (RBC) [Entitic vol] 87.3 fL Normal 81.0-99.0 [facility] Comment on above: Performed By: #### G TT3P #### [facility] [address] [place] [id number] Kaela Dimas MONO # 1.2 103/ul Critically high 0.3-0.8 [facility] Comment on above: Performed By: #### G TT3P #### [facility] [address] [place] [id number] Kaela Dimas Monocytes/100 WBC (Bld) 6.6 % Normal 1.7-12.0 [facility] Comment on above: Performed By: #### G TT3P #### [facility] [address] [place], [place] [address] Kaela Dimas NEUT # 14.4 103/ul Critically high 1.4-6.5 [facility] Comment on above: Performed By: #### G TT3P #### [facility] [address] [place], [place] [address] Kaela Dimas Neutrophils/100 WBC (Bld) 82.8 % Critically high 43.0-75.0 [facility] Comment on above: Performed By: #### G TT3P #### [facility] [address] [place], [place] [address] Kaela Dimas Platelet mean volume (Bld) [Entitic vol] 12.1 fL Normal 9.5-13.5 [facility] Comment on above: Performed By: #### G TT3P #### [facility] [address] [place], [place] [address] Kaela Sahuen PLT 216 103/ul Normal 150-450 [facility] Comment on above: Performed By: #### G TT3P #### [facility] [address] [place], [place] [address] Kaela Judie RBC 3.95 106/ul Critically low 4.20-5.40 [facility] Comment on above: Performed By: #### G TT3P #### [facility] [address] [place] [address] Kaelastephanie Sahuen WBC 17.4 103/ul Critically high 4.0-11.0 [facility] Comment on above: Performed By: #### G TT3P #### [facility] [address] [place] [address] Kaela Judie CULTURE URINEon 01-13-2021 CULTURE URINE Culture Observations : LIGHT GROWTH OF MIXED GENITAL TINO. NO POTENTIAL PATHOGENS SEEN. Normal [facility] Comment on above: Performed By: #### P TT #### [facility] [address] [place] [address] Kaela Judie LDHon 01-13-2021 LDH 194 U/L Normal 122-222 [facility] Comment on above: Performed By: #### U ELIZABETH, LDH #### [facility] [address] [place] [address] Kaela Judie PROF 14(COMP METB)on 021 Albumin [Mass/Vol] 2.7 g/dL Critically low 3.5-5.0 [facility] Comment on above: Performed By: #### G TT3P #### [facility] [address] [place], [place] [address] Kaela Judie Albumin/Globulin [Mass ratio] 0.9 {ratio} Normal [facility] Comment on above: Performed By: #### G TT3P #### [facility] [address] [place], [place] [address] Kaela Judie ALP [Catalytic activity/Vol] 134 U/L Critically high 38-126 [facility] Comment on above: Performed By: #### G TT3P #### [facility] [address] [place], [place] [address] Kaela Judie ALT [Catalytic activity/Vol] 21 U/L Normal 9-52 [facility] Comment on above: Performed By: #### G TT3P #### [facility] [address] [place] [address] Kaela Judie Anion gap [Moles/Vol] 11.6 mmol/L Normal Th [facility] Comment on above: Performed By: #### G TT3P #### [facility] [address] [place], [place] [address] Kaela Judie AST [Catalytic activity/Vol] 17 U/L Normal 14-36 [facility] Comment on above: Performed By: #### G TT3P #### [facility] [address] [place] [address] Kaela Judie Bilirubin [Mass/Vol] 0.2 mg/dL Normal 0.2-1.3 [facility] Comment on above: Performed By: #### G TT3P #### [facility] [address] [place] [address] Kaela Judie Calcium [Mass/Vol] 9.1 mg/dL Normal 8.4-10.2 [facility] Comment on above: Performed By: #### G TT3P #### [facility] [address] [place] [address] Kaela Judie Chloride [Moles/Vol] 106 mmol/L Normal 98-107 [facility] Comment on above: Performed By: #### G TT3P #### [facility] [address] [place] [address] Kaela Judie CO2 [Moles/Vol] 25.8 mmol/L Normal 22.0-30.0 [facility] Comment on above: Performed By: #### G TT3P #### [facility] [address] [place] [address] Kaela Judie Creatinine [Mass/Vol] 0.53 mg/dL Normal 0.52-1.04 [facility] Comment on above: Performed By: #### G TT3P #### [facility] [address] [place], [place] [id number] Kaela Judie EGFR-AF YEMENI >60 Normal >=60 [facility] Comment on above: Performed By: #### G TT3P #### [facility] [address] [place], [place] [id number] Kaela Judie EGFR-NON AF YEMENI >60 Normal >=60 [facility] Comment on above: Performed By: #### G TT3P #### [facility] [address] [place] [address] Kaela Judie Globulin (S) [Mass/Vol] 3.0 g/dL Normal [facility] Comment on above: Performed By: #### G TT3P #### [facility] [address] [place] [address] Kaela Judie Glucose [Mass/Vol] 85 mg/dL Normal 74-106 [facility] Comment on above: Performed By: #### G TT3P #### [facility] [address] [place], [place] [id number] Kaela Judie Potassium [Moles/Vol] 3.4 mmol/L Normal 3.4-5.0 [facility] Comment on above: Performed By: #### G TT3P #### [facility] [address] [place] [address] Kaela Judie Protein [Mass/Vol] 5.7 g/dL Critically low 6.1-8.2 Th [facility] Comment on above: Performed By: #### G TT3P #### [facility] [address] [place] [address] Kaela Judie Sodium [Moles/Vol] 140 mmol/L Normal 137-145 [facility] Comment on above: Performed By: #### G TT3P #### [facility] [address] [place] [address] Kaela Judie Urea nitrogen [Mass/Vol] 10.0 mg/dL Normal 7.0-17.0 [facility] Comment on above: Performed By: #### G TT3P #### [facility] [address] [place] [address] Kaela Judie Urea nitrogen/Creatinine [Mass ratio] 18.9 mg/mg Normal [facility] Comment on above: Performed By: #### G TT3P #### [facility] [address] [place], [place] [id number] Kaela Judie PTTon 01-13-2021 aPTT Coag (Bld) [Time] 23.6 s Normal 22.3-36.2 Th [facility] Comment on above: Performed By: #### P TT #### [facility] [address] [place] [address] Kaela Judie URIC ACID SERUMon 01-13-2021 Urate [Mass/Vol] 3.7 mg/dL Normal 2.5-6.2 [facility] Comment on above: Performed By: #### U ELIZABETH, LDH #### [facility] [address] [place] [address] Kaela Judie UA (CLEAN/CATCH) INSOLE PRESSER/MICRO I F IND.on 01-12-2021 Bilirubin Ql (U) Negative Normal NEGATIVE [facility] Comment on above: Performed By: #### U MICRO, UACSIND #### [facility] [address] [place] [address] Kaela Judie Clarity (U) CLEAR Normal CLEAR [facility] Comment on above: Performed By: #### U MICRO, UACSIND #### [facility] [address] [place] [address] Kaela Judie Color (U) LT. YELLOW Normal YELLOW [facility] Comment on above: Performed By: #### U MICRO, UACSIND #### [facility] [address] [place] [address] Kaela Judie Glucose Ql (U) Negative Normal NEGATIVE [facility] Comment on above: Performed By: #### U MICRO, UACSIND #### [facility] [address] [place] [address] Kaela Judie Hemoglobin Ql (U) Negative Normal NEGATIVE [facility] Comment on above: Performed By: #### U MICRO, UACSIND #### [facility] [address] [place] [address] Kaela Judie Ketones Ql (U) Negative Normal NEGATIVE [facility] Comment on above: Performed By: #### U MICRO, UACSIND #### [facility] [address] [place] [address] Kaela Judie LEUKOCYTES TRACE Abnormal NEGATIVE [facility] Comment on above: Performed By: #### U MICRO, UACSIND #### [facility] [address] [place] [address] Kaela Judie Nitrite Ql (U) Negative Normal NEGATIVE [facility] Comment on above: Performed By: #### U MICRO, UACSIND #### [facility] [address] [place] [address] Kaela Judie pH (U) 6.0 [pH] Normal 5-9 [facility] Comment on above: Performed By: #### U MICRO, UACSIND #### [facility] [address] [place] [address] Kaelastephanie Dimas SPEC GRAVITY 1.025 Normal 1.005-<=1. 025 [facility] Comment on above: Performed By: #### U MICRO, UACSIND #### [facility] [address] [place] [address] Kaela Judie UA PROTEIN Negative Normal NEGATIVE/ TRACE [facility] Comment on above: Performed By: #### U MICRO, UACSIND #### [facility] [address] [place] [address] Kaela Judie UR MICRO IND INDICATED Normal [facility] Comment on above: Performed By: #### U MICRO, UACSIND #### [facility] [address] [place] [address] Kaelastephanie Dimas Urobilinogen Qn (U) 0.2 {Sylvester'U}/dL Normal 0.2 - 1. 0 [facility] Comment on above: Performed By: #### U MICRO, UACSIND #### [facility] [address] [place] [address] Kaelastephanie Dimas URINE MICROSCOPIC ONLYon BACTERIA TRACE Abnormal NONE SEEN [facility] Comment on above: Performed By: #### U MICRO, UACSIND #### [facility] [address] [place] [address] Kaelastephanie Dimas Bacteria identified Cx Nom (U) INDICATED Normal [facility] Comment on above: Performed By: #### U MICRO, UACSIND #### [facility] [address] [place] [address] Kaela Judie CAST NONE SEEN Normal NONE SEEN [facility] Comment on above: Performed By: #### U MICRO, UACSIND #### [facility] [address] [place] [address] Kaela Judie Crystals LM Nom (Urine sed) NONE SEEN Normal NONE SEEN [facility] Comment on above: Performed By: #### U MICRO, UACSIND #### [facility] [address] [place] [address] Kaela Judie Epithelial cells LM Ql (Urine sed) FEW Abnormal NONE SEEN /RARE [facility] Comment on above: Performed By: #### U MICRO, UACSIND #### [facility] [address] [address] Kaela Judie MUCOUS SMALL Abnormal NONE SEEN [facility] Comment on above: Performed By: #### U MICRO, UACSIND #### [facility] [address] [id number] Kaela Judie RBC 0-2 Normal 0-2 [facility] Comment on above: Performed By: #### U MICRO, UACSIND #### [facility] [address] [address] Kaela Judie WBC 2-5 Abnormal NONE SEEN [facility] Comment on above: Performed By: #### U MICRO, UACSIND #### [facility] [address] [place], [place] [id number] Kaela Sahuen US PREG BIOPHY W NON STRESSo [...] IRINEO COMBS Date: 2021-01-09 07:18 Normal [facility] US PREG GROWTHon 12-31-2020 US [...] cm; 32 weeks 2 days; % EFW: 4.694195, 39% FL/AC: 0.344386 FL/BPD: 0.264844 HC/AC: 1.618206 GESTATIONAL AGE: Age by EDC: 32 weeks 1 day SUSANNA by EDC: 02/24/2021 Age by US: 32 weeks 0 days SUSANNA by US: 02/25/2021 IMPRESSION: Normal interval growth Electronically authenticated by: IRINEO COMBS Date: 2020-12-31 09:38 Normal [facility] GTT 3 HR PREGon 12-12-2020 Glucose [Mass/Vol] 86 mg/dL Normal 74-106 [facility] Comment on above: Performed By: #### G TT3P #### [facility] [address] [place] [address] Kaela Judie Glucose [Mass/Vol] 179 mg/dL Normal [facility] Comment on above: Performed By: #### G TT3P #### [facility] [address] [address] Kaela Judie Glucose [Mass/Vol] 131 mg/dL Normal [facility] Comment on above: Performed By: #### G TT3P #### [facility] [address] [place] [address] Kaela Judie Glucose [Mass/Vol] 145 mg/dL Normal [facility] Comment on above: Performed By: #### G TT3P #### [facility] [address] [place] [address] Kaela Judie GLUCOSE - 1HRon 12-05-2020 Glucose [Mass/Vol] 151 mg/dL Critically high 74-106 [facility] Comment on above: Result Comment: sherri ent was approximately 5 minutes late for draw Performed By: #### G LU1HR #### [facility] [address] [place] [address] Kaela Judie HEMOGRAM AND PLATELon 2020 Hematocrit (Bld) [Volume fraction] 38.4 % Normal 36.0-48.0 [facility] Comment on above: Performed By: #### G TT3P #### [facility] [address] [place] [address] Kaela Dimas Hemoglobin (Bld) [Mass/Vol] 13.2 g/dL Normal 12.0-16.0 [facility] Comment on above: Performed By: #### G TT3P #### [facility] [address] [place] [address] Kaela Dimas MCH (RBC) [Entitic mass] 30.8 pg Normal 26.7-34.0 [facility] Comment on above: Performed By: #### G TT3P #### [facility] [address] [place] [address] Kaela Dimas MCHC (RBC) [Mass/Vol] 34.4 g/dL Normal 29.9-35.2 [facility] Comment on above: Performed By: #### G TT3P #### [facility] [address] [place] [address] Kaela Dimas MCV (RBC) [Entitic vol] 89.5 fL Normal 81.0-99.0 [facility] Comment on above: Performed By: #### G TT3P #### [facility] [address] [place] [address] Kaela Dimas PLT 238 103/ul Normal 150-450 [facility] Comment on above: Performed By: #### G TT3P #### [facility] [address] [place] [address] Kaela Sahuen RBC 4.29 106/ul Normal 4.20-5.40 [facility] Comment on above: Performed By: #### G TT3P #### [facility] [address] [place] [address] Kaelastephanie Dimas WBC 17.0 103/ul Critically high 4.0-11.0 [facility] Comment on above: Performed By: #### G TT3P #### [facility] [address] [place] [address] Kaela Dimas US PREG GROWTHon 12-03-2020 US [...] cm; 28 weeks 0 days; % EFW: 2.694427, 2 lbs. 10 oz., 40% FL/AC: 0.367596 FL/BPD: 0.066967 HC/AC: 1.127337 GESTATIONAL AGE: Age by EDC: 28 weeks 1 day SUSANNA by EDC: 02/24/2021 Age by US: 20 weeks 2 days SUSANNA by US: 02/23/2021 IMPRESSION: Normal interval growth Electronically authenticated by: IRINEO COMBS Date: 2020-12-03 10:04 Normal [facility] Vital Signs Date Time Vital Sign Value Performing Clinician Facility 08-29-2024 14:37-0500 Body mass index (BMI) [Ratio] 41.42 kg/m2 WITOI Work Phone: [facility] 08-29-2024 14:37-0500 Body weight 106.05 kg WITOI Work Phone: [facility] 08-29-2024 14:37-0500 Diastolic blood pressure 78 mm[Hg] WITOI Work Phone: [facility] 08-29-2024 14:37-0500 Systolic blood pressure 128 mm[Hg] WITOI Work Phone: [facility] 08-22-2024 15:09-0500 Body mass index (BMI) [Ratio] 41.45 kg/m2 WITOI Work Phone: [facility] 08-22-2024 15:09-0500 Body weight 106.14 kg WITOI Work Phone: [facility] 08-22-2024 15:09-0500 Diastolic blood pressure 80 mm[Hg] Scotty Jacquie DO Work Phone: [facility] 08-22-2024 15:09-0500 Systolic blood pressure 132 mm[Hg] Scotty Jacquie DO Work Phone: [facility] 08-14-2024 16:26-0500 Body mass index (BMI) [Ratio] 41.65 kg/m2 Scotty Jacqiue DO Work Phone: [facility] 08-14-2024 16:26-0500 Body weight 106.65 kg Scotty Jacquie DO Work Phone: [facility] 08-14-2024 16:26-0500 Diastolic blood pressure 80 mm[Hg] Scotty Jacquie DO Work Phone: [facility] 08-14-2024 16:26-0500 Systolic blood pressure 130 mm[Hg] Scotty Jacquie DO Work Phone: [facility] 07-31-2024 15:22-0500 Body mass index (BMI) [Ratio] 41.81 kg/m2 Madisyn Jimenez PA Work Phone: [facility] 07-31-2024 15:22-0500 Body weight 107.05 kg Madisyn Jimenez PA Work Phone: [facility] 07-31-2024 15:22-0500 Diastolic blood pressure 72 mm[Hg] Madisyn Jimenez PA Work Phone: [facility] 07-31-2024 15:22-0500 Systolic blood pressure 122 mm[Hg] Madisyn Jimenez PA Work Phone: [facility] 07-17-2024 16:19-0500 Body mass index (BMI) [Ratio] 41.81 kg/m2 Scotty Jacquie DO Work Phone: [facility] 07-17-2024 16:19-0500 Body weight 107.05 kg Scotty Jacquie DO Work Phone: [facility] 07-17-2024 16:19-0500 Diastolic blood pressure 72 mm[Hg] Scotty Jacquie DO Work Phone: [facility] 07-17-2024 16:19-0500 Systolic blood pressure 122 mm[Hg] Scotty Jacquie DO Work Phone: [facility] 07-14-2024 11:13-0500 Body height 160 cm Aniceto Fox MD Work Phone: [facility] 07-14-2024 11:13-0500 Body mass index (BMI) [Ratio] 40.74 kg/m2 Aniceto Fox MD Work Phone: [facility] 07-14-2024 11:13-0500 Body weight 104.33 kg Aniceto Fox MD Work Phone: [facility] 07-14-2024 11:13-0500 Diastolic blood pressure 84 mm[Hg] Aniceto Fox MD Work Phone: [facility] 07-14-2024 11:13-0500 Heart rate 104 /min Aniceto Fox MD Work Phone: [facility] 07-14-2024 11:13-0500 Systolic blood pressure 144 mm[Hg] Aniceto Fox MD Work Phone: [facility] 06-15-2024 15:34-0500 Body mass index (BMI) [Ratio] 40.6 kg/m2 Madisyn KERNS Work Phone: [facility] 06-15-2024 15:34-0500 Body weight 103.96 kg Madisyn KERNS Work Phone: [facility] 06-15-2024 15:34-0500 Diastolic blood pressure 76 mm[Hg] Madisyn KERNS Work Phone: [facility] 06-15-2024 15:34-0500 Systolic blood pressure 122 mm[Hg] Madisyn KERNS Work Phone: [facility] 05-18-2024 12:07-0400 Body mass index (BMI) [Ratio] 39.5 kg/m2 Scotty Jacquie DO Work Phone: [facility] 05-18-2024 12:07-0400 Body weight 101.15 kg Scotty Jacquie DO Work Phone: [facility] 05-18-2024 12:07-0400 Diastolic blood pressure 78 mm[Hg] Scotty Jacquie DO Work Phone: [facility] 05-18-2024 12:07-0400 Systolic blood pressure 124 mm[Hg] Scotty Jacquie DO Work Phone: [facility] 04-20-2024 08:46-0400 Body mass index (BMI) [Ratio] 39.41 kg/m2 Madisyn KERNS Work Phone: [facility] 04-20-2024 08:46-0400 Body weight 100.92 kg Madisyn KERNS Work Phone: [facility] 04-20-2024 08:46-0400 Diastolic blood pressure 82 mm[Hg] Madisyn KERNS Work Phone: [facility] 04-20-2024 08:46-0400 Systolic blood pressure 122 mm[Hg] Madisyn KERNS Work Phone: [facility] 03-22-2024 11:34-0400 Body mass index (BMI) [Ratio] 39.5 kg/m2 Scotty Jacquie DO Work Phone: [facility] 03-22-2024 11:34-0400 Body weight 101.15 kg Scotty Jacquie DO Work Phone: [facility] 03-22-2024 11:34-0400 Diastolic blood pressure 74 mm[Hg] Scotty Jacquie DO Work Phone: [facility] 03-22-2024 11:34-0400 Systolic blood pressure 122 mm[Hg] Scotty Jacquie DO Work Phone: [facility] 01-31-2024 18:14-0400 Diastolic blood pressure 74 mm[Hg] MD Jacques Mccarthy Work Phone: [facility] 01-31-2024 18:14-0400 Heart rate 100 /min MD Jacques Mccarthy Work Phone: [facility] 01-31-2024 18:14-0400 Respiratory rate 18 /min MD Jacques Mccarthy Work Phone: [facility] 01-31-2024 18:14-0400 SaO2% (BldA) [Mass fraction] 100 % MD Jacques Mccarthy Work Phone: [facility] 01-31-2024 18:14-0400 Systolic blood pressure 156 mm[Hg] MD Jacques Mccarthy Work Phone: [facility] 01-31-2024 14:04-0400 Body height 160.02 cm MD Jacques Mccarthy Work Phone: [facility] 01-31-2024 14:04-0400 Body temperature 97.4 [degF] MD Jacques Mccarthy Work Phone: [facility] 01-31-2024 14:04-0400 Body weight 98.5 kg MD Jacques Mccarthy Work Phone: [facility] Encounters Encounter Date Encounter Type Care Provider Facility Start: 09-05-2024 End: 09-05-2024 Telephone encounter Nubia Lundberg MD Work Phone: [facility] Start: 08-30-2024 End: 08-30-2024 Clinisync Result Encounter [...] 08-16-2024 End: 08-16-2024 Documentation procedure Judie Stearns [facility] Start: 08-15-2024 End: 08-15-2024 Office outpatient visit 25 minutes Nubia Lundberg MD Work Phone: [facility] Comment on above: 32 weeks gestation o f (Primary Dx); Gestational diabetes mellitus (GDM) in third trimester, gestational diabetes method of control unspecified; Chronic hypertension affecting ; BMI 40.0-44.9, adult ([facility]); arrhythmia affecting , antepartum; Polyhydramnios affecting ; Separation of chorion and amnion membranes, antepartum Start: 08-15-2024 End: 08-15-2024 Orders Only Judie Stearns [facility] Comment on above: Abnormal ultrasonic finding on screening of mother, antepartum (Primary Dx) Start: 08-14-2024 End: 08-14-2024 ambulatory SCOTTY JACQUIE Not Available Start: 08-14-2024 End: 08-14-2024 flow sheet Scotty Jacquie DO Work Phone: [facility] Comment on above: 32 weeks gestation o f ; Third trimester Start: 08-14-2024 End: 08-14-2024 Bamboo flowsheet Sctoty Jacquie DO Work Phone: [facility] [...] Start: 07-31-2024 End: 07-31-2024 flow sheet Madisyn Gaona PA Work Phone: [facility] Comment on above: Third trimester preg red; 30 weeks gestation of Start: 07-31-2024 End: 07-31-2024 ambulatory MADISYN GAONA Not Available Start: 07-31-2024 End: 07-31-2024 Bamboo flowsheet Madisyn KERNS Work Phone: [facility] Start: 07-31-2024 End: 07-31-2024 Bamboo flowsheet Madisyn KERNS Work Phone: [facility] Start: 07-17-2024 End: 07-17-2024 ambulatory SCOTTY DHILLON Not Available Start: 07-17-2024 End: 07-17-2024 flow sheet Scotty Dhillon DO Work Phone: [...] Aniceto Fox MD Work Phone: [facility] Comment on above: Gestational diabetes mellitus (GDM), antepartum, gestational diabetes method of control unspecified (Primary Dx); Chronic hypertension affecting Start: 07-14-2024 End: 07-14-2024 ambulatory [facility] Start: 07-13-2024 End: 07-13-2024 Clinisync Result Encounter Madisyn KERNS Work Phone: [facility] Unsolicited Start: 07-13-2024 End: 07-13-2024 Clinisync Result Encounter Madisyn KERNS Work Phone: [facility] Unsolicited Start: 06-21-2024 End: 06-21-2024 Chart abstracting Aniceto Fox MD Work Phone: [facility] Start: 06-15-2024 End: 06-15-2024 flow sheet [...] 06-15-2024 Bamboo flowsheet Madisyn KERNS Work Phone: [facility] Start: 06-15-2024 End: 06-15-2024 Bamboo flowsheet Madisyn KERNS Work Phone: [facility] Start: 05-18-2024 End: 05-18-2024 Bamboo flowsheet Scotty Jacquie DO Work Phone: [facility] Start: 05-18-2024 End: 05-18-2024 Bamboo flowsheet Scotty Jacquie DO Work Phone: [facility] Start: 05-18-2024 End: 05-18-2024 ambulatory SCOTTY JACQUIE Not Available Start: 05-18-2024 End: 05-18-2024 flow sheet Scotty Jacquie DO Work Phone: [facility] Comment on above: 20 weeks gestation o f ; Second trimester Start: 04-20-2024 End: 04-20-2024 Bamboo flowsheet Madisyn KERNS Work Phone: [facility] Start: 04-20-2024 End: 04-20-2024 Bamboo flowsheet Madisyn KERNS Work Phone: [facility] Start: 04-20-2024 End: 04-20-2024 Office outpatient visit 15 minutes Madisyn KERNS Work Phone: [facility] Comment on above: Screening, [...] patient visit MD Jacques Mccarthy Work Phone: [facility] Work Phone: Start: 10-08-2021 [...] Procedure Procedure Detail Performing Clinician Start: 08-30-2024 US OB BPP W NON-STRESS Scotty Jacquie DO Work Phone: Start: 08-30-2024 [facility] UA (CLEAN/CATCH) INSOLE PRESSER/MICRO IF IND. Scotty Jacquie DO Work Phone: [...] Work Phone: Start: 08-04-2024 [facility] UA (CLEAN/CATCH) INSOLE PRESSER/MICRO IF IND. Scotty Jacquie DO Work Phone: [...] 08-15-2025 Tobacco Screening Tobacco Screening [facility] Start: 07-14-2025 Adult BMI Screening Adult BMI Screen ing [facility] Start: 06-21-2025 Adult BMI Screening Adult BMI Screen ing [facility] Start: 09-05-2024 End: 09-05-2024 Patient encounter procedure 09/05/2024 10:40 AM EST Routine [facility] [address] [place] [address] Scotty Dhillon, DO [address] [place] [address] [facility] Start: 08-30-2024 End: 08-30-2024 Patient encounter procedure 08/30/2024 10:30 AM EST Office Visit [facility] [address] [place] [id number] Eliud Wilson MD [address] [place] [address] [facility] Start: 08-29-2024 End: 08-29-2024 Patient encounter procedure [facility] Comment on above: Arrived Start: 08-22-2024 End: 08-22-2024 Patient encounter procedure 08/22/2024 2:30 PM EST Routine [facility] [address] [place] [id number] Scotty Dhillon, DO [address] [place] [address] [facility] Start: 08-14-2024 End: 08-14-2024 Patient encounter procedure 08/14/2024 3:30 PM EST Routine [facility] [address] [place] [address] Scotty Dhillon, DO [address] [place] [address] [facility] Start: 07-31-2024 End: 07-31-2024 Patient encounter procedure [facility] Comment on above: Arrived Start: 07-17-2024 End: 07-17-2024 Patient encounter procedure 07/17/2024 3:20 PM EST Routine [facility] [address] [facility] [place] [phone] Scotty Dhillon DO [address] [place], [place] [id number] [facility] Start: 07-17-2024 End: 07-17-2024 Professional / ancillary services management 07/17/2024 3:00 PM EST Ancillary Procedure [facility] [address] [facility] [place] [id number] [facility] Start: 07-17-2024 End: 07-17-2025 US biophysical profile w non stress test US biophysical profile w non stress test Imaging Routine Third trimester Gestational diabetes mellitus (GDM) in third trimester, gestational diabetes method of control unspecified Hypertension, unspecified type (CMS/HCC) Expected: 07/17/2024 (Approximate), Expires: 07/17/2025 [facility] Comment on above: Expected: 07/17/2024 (Approximate), Expires: 07/17/2025 Start: 07-17-2024 End: 07-17-2025 US for US OB SCAN FOR GROWTH Imaging Routine Third trimester Gestational diabetes mellitus (GDM) in third trimester, gestational diabetes method of control unspecified Hypertension, unspecified type (CMS/HCC) Expected: 07/17/2024 (Approximate), Expires: 07/17/2025 [facility] Work Phone: Comment on above: Expected: 07/17/2024 (Approximate), Expires: 07/17/2025 Start: 07-14-2024 End: 07-14-2024 Patient encounter procedure [facility] Start: 06-15-2024 End: 06-15-2024 Patient encounter procedure 06/15/2024 3:30 PM EST Routine [facility] [address] [place] [phone] Madisyn Gaona PA [address] [place], [place] [id number] [facility] Start: 06-15-2024 End: 06-15-2025 CBC panel - Blood by Automated count CBC Lab Routine Diabetes mellitus screening Expected: 06/15/2024 (Approximate), Expires: 06/15/2025 [facility] Healthcare Work Phone: Comment on above: Expected: 06/15/2024 (Approximate), Expires: 06/15/2025 Start: 06-15-2024 End: 06-15-2025 Measurement of glucose 1 hour after glucose challenge for glucose tolerance test Glucose tolerance, 1 hour Lab Routine Diabetes mellitus screening Expected: 06/15/2024 (Approximate), Expires: 06/15/2025 [facility] Comment on above: Expected: 06/15/2024 (Approximate), Expires: 06/15/2025 Start: 05-18-2024 End: 05-18-2024 Patient encounter procedure 05/18/2024 11:40 AM EDT Office Visit [facility] [address] [place] [address] Scotty Dhillon, [address] [place] [address] [facility] Start: 05-18-2024 End: 05-18-2024 Professional / ancillary services management 05/18/2024 10:30 AM EDT Ancillary Procedure [facility] [address] [place] [address] [facility] Start: 04-20-2024 End: 04-20-2025 Alpha fetoprotein, maternal Alpha fetoprotein, maternal Lab Routine Second trimester Expected: 04/20/2024 (Approximate), Expires: 04/20/2025 [facility] Healthcare Work Phone: Comment on above: Expected: [...] Influenza vaccination Influenza Vacc ine [facility] Start: 03-22-2024 End: 03-22-2024 Patient encounter procedure 03/22/2024 11:20 AM EDT Routine [facility] [address] [place] [address] Scotty Dhillon, DO [address] [place] [address] Arrived [facility] Comment on above: Arrived Start: 2018 Screening for malign ant neoplasm of cervix Pap Smear [facility] Start: 2016 DTaP,Tdap and Td Vaccines (1 - Tdap) DTaP,Tdap and Td Vaccines (1 - Tdap) [facility] Start: 2015 Adult BMI Follow Up Plan Adult BMI Follow Up Plan [facility] Start: 2015 Adult BMI Screening Adult BMI Screen ing [facility] Start: 2009 Depression Screening Depression Scre ening [facility] Start: 2009 Tobacco Screening Tobacco Screening [facility] CBC W Auto Different ial panel - Blood CBC and differential Lab Routine Abnormal CBC Ordered: 03/22/2024 [facility] Healthcare Work Phone: Comment on above: Ordered: 03/22/2024 Patient Education - Th e Second Month High Blood Pressure ED [facility] Work Phone: Patient referral [facility] Work Phone: Payers Date Payer Category Payer Medicaid [id number] 2024 Medicaid [id number] 2024 Self-pay 2023 Private Health Insurance [id number] 2023 Private Health Insurance [id number] 2022 Medicaid HMO [employer] [id number] 1997 Unknown [id number] 2.16.840.1.375691.3.579.2. 593 1997 Unknown [id number] 2.16.840.1.228071.3.579.2. 593 1997 Unknown [id number] 2.16.840.1.408460.3.579.2. 593 1997 Unknown [id number] 2.16.840.1.638491.3.579.2. 593 1997 Unknown [id number] 2.16.840.1.302004.3.579.2. 593 1997 Unknown [id number] 2.16.840.1.678804.3.579.2. 593 1997 Unknown [id number] 2.16.840.1.848838.3.579.2. 593 1997 Unknown [id number] 2.16.840.1.785346.3.579.2. 593 1997 Unknown [id number] 2.16.840.1.012582.3.579.2. 593 1997 Unknown [id number] 2.16.840.1.860421.3.579.2. 593 1997 Unknown [id number] 2.16.840.1.140960.3.579.2. 593 1997 Unknown [id number] 2.16.840.1.208938.3.579.2. 593 1997 Unknown [id number] 2.16.840.1.862023.3.579.2. 593 1997 Unknown [id number] 2.16.840.1.997103.3.579.2. 593 1997 Unknown [id number] 2.16.840.1.567297.3.579.2. 593 1997 Unknown [id number] 2.16.840.1.053057.3.579.2. 593 1997 Unknown [id number] 2.16.840.1.450682.3.579.2. 593 1997 Unknown [id number] 2.16.840.1.794251.3.579.2. 593 1997 Unknown [id number] 2.16.840.1.236913.3.579.2. 1286 1997 Unknown [id number] 2.16.840.1.390857.3.579.2. 1286 1997 Unknown [id number] 2.16.840.1.257325.3.579.2. 1286 1997 Unknown [id number] 2.16.840.1.017517.3.579.2. 1259 1997 Unknown [id number] 2.16.840.1.299693.3.579.2. 1259 1997 Unknown [id number] 2.16.840.1.134643.3.579.2. 1259 1997 Unknown [id number] 2.16.840.1.640425.3.579.2. 9 1997 Unknown [id number] 2.16.840.1.219189.3.579.2. 9 1997 Unknown [id number] 2.16.840.1.838674.3.579.2. 9 1997 Unknown [id number] 2.16.840.1.776786.3.579.2. 9 1997 Unknown [id number] 2.16.840.1.660907.3.579.2. 9 1997 Unknown [id number] 2.16.840.1.083015.3.579.2. 9 1997 Unknown [id number] 2.16.840.1.692870.3.579.2. 9 1997 Unknown [id number] 2.16.840.1.130804.3.579.2. 1258 1997 Unknown [id number] 2.16.840.1.144738.3.579.2. 9 1997 Unknown [id number] 2.16.840.1.414419.3.579.2. 9 1959 Unknown [id number] 1959 Unknown [id number] 1959 Unknown [id number] Unknown [id number] 2.16.840.1.367062.3.579.2. 531 Social History Date Type Detail Facility Start: 01-13-2024 [facility] Start: 01-31-2024 [facility] Start: 1997 Sex Assigned At Female F [facility] smoking consumption unknown [facility] Start: 1997 Sex assigned at Not on file [facility] Start: 08-23-2020 End: 06-21-2024 Gender identity Not on file [facility] Start: 10-07-2020 End: 07-14-2024 Tobacco smoking status [facility] Ex-smoker [facility] History of tobacco use Current smoker [facility] Start: 10-07-2020 End: 07-14-2024 Tobacco use and exposure Smokeless tobacco non-user [facility] Start: 06-21-2024 End: 09-05-2024 Alcoholic beverage intake Ex-drinker (finding) [facility] Start: 08-23-2020 End: 06-21-2024 History of Social function [facility] Childcare Unknown [facility] Start: 10-07-2020 End: 07-14-2024 Tobacco Comment quit 3 years ago [facility] Start: 08-23-2020 Sex Female (finding) [facility] History of tobacco use Cigarette Smoker P [facility] Medical Equipment Procedure Code Equipment Code Equipment Original Text Equipment Identifier Dates [id number] Start: 07-17-2024 End: 08-16-2024 1 each by In Vit ro route Daily Use to check FSBS four times daily [id number] Start: 07-17-2024 End: 08-16-2024 Inject 1 each un jany the skin Daily [id number] Start: 08-23-2024 End: 09-22-2024 Inject 1 each un jany the skin See administration instructions Use four times daily with insulin pen. [id number] Start: 08-22-2024 End: 08-23-2024 Clinical Notes 02-05-2021 to 09-05-2024 Telephone Encounter - Nubia Lundberg MD - 09/05/2024 4:42 PM ESTTelephone Encounter - Nubia Lundberg MD - 09/05/2024 4:42 PM Lorene Gutierrez LPN - 08/29/2024 2:20 PM EST Note Date & Type Note Facility 09-05-2024 Miscellaneous Notes I called Dr Dhillon and reviewed with him recommendations for delivery at a tertiary care center as well as the necessity for cardiology evaluation He agrees with the plan Due to advanced gestational age the patient is to continue with the care with him until we can arrange for transfer of care NUBIA LUNDBERG MD documented in this encounter [facility] 09-05-2024 Telephone encounter Note I called Dr Dhillon and reviewed with him recommendations for delivery at a tertiary care center as well as the necessity for cardiology evaluation He agrees with the plan Due to advanced gestational age the patient is to continue with the care with him until we can arrange for transfer of care NUBIA LUNDBERG MD [facility] 09-05-2024 Miscellaneous Notes Called patient with report from her echocardiogram Mild pulmonary hypertension on report with RVSP 37 mmgh The patient denies any cardiac symptoms. No OB complaints. I reviewed with the patient that I would recommend urgent cardiology evaluation and delivery at tertiary care center. Delivery has been recommended at 37 weeks by repeat . We will also reach to the patient primary OB to convey these recommendations Before not able to arrange outpatient Cardiology the patient will have to be admitted prior to delivery for cardiology consultation and evaluation of the pulmonary hypertension NUBIA LUNDBERG MD documented in this encounter [facility] 09-05-2024 Telephone encounter Note Called patient with report from her echocardiogram Mild pulmonary hypertension on report with RVSP 37 mmgh The patient denies any cardiac symptoms. No OB complaints. I reviewed with the patient that I would recommend urgent cardiology evaluation and delivery at tertiary care center. Delivery has been recommended at 37 weeks by repeat . We will also reach to the patient primary OB to convey these recommendations Before not able to arrange outpatient Cardiology the patient will have to be admitted prior to delivery for cardiology consultation and evaluation of the pulmonary hypertension NUBIA LUNDBERG MD [facility] 08-29-2024 History of Present illness Narrative Reason for Appointment: Patient ID: Samantha Benjamin is a 29 y.o. female who presents for Routine Visit Patient presents today for Return OB appointment. MEDICATIONS Current Outpatient Medications Medication Instructions Alcohol Swabs (Alcohol Prep Pad) 70 % pads 1 Pad, Topical, Daily, Use four times daily to check FSBS. aspirin 81 mg, Daily Blood Glucose Monitoring Suppl (Educanon Glucometer) w/Device kit 1 kit, Does not [...] nursing note reviewed. Exam conducted with a beauty therapist present. Vitals: Estimated body mass index is [...] Scotty Dhillon DO documented in this encounter [facility] 08-22-2024 History of Present illness Narrative Reason [...] nursing note reviewed. Exam conducted with a beauty therapist present. Vitals: Estimated body mass index is [...] times a day. Pt has appt at [facility] on 08/30/24. Reviewed glucose log with [...] Scotty Dhillon DO documented in this encounter [facility] 08-16-2024 History of Present illness Narrative Called patient 08/15/24 and 08/16/24 to inform patient of date and time for the Pediatric Cardiology Consultation. L/M for patient to return my call. documented in this encounter [facility] 08-15-2024 History of Present illness Narrative Video Visit via Real-time Synchronous Audiovisual Provider Location: [facility] AT [address] [address] Patient Location: Other [place] Office Patient Location Keyboarding Clerk: None Video Visit Consent Statement: I discussed [...] that there are some limitations compared to [id number] evaluations. We elected to proceed. REASON FOR [...] outflow tracts on ultrasound BMI 40.0-44.9, adult ([facility]) Past Medical History: Diagnosis Date [...] and the other consultants, we search on [employer] and all the available care everywhere epic I did review all the imaging studies of the patient available on EMR, ordered by the primary care physician and the other consultant technology HABITS: Patient activity no restrictions, diet no [...] more likely to fail compared to insulin. emt intermediate data on children whose mothers took oral [...] Chronic hypertension affecting 4. BMI 40.0-44.9, adult (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 Patient does have ultrasound appointment scheduled with us. Thank you for allowing me to participate in Samantha Benjamin . If there any questions please do not hesitate to contact us. Sincerely, Nubia Lundberg MD, FACOG (she/hers) Maternal- Medicine [address] [place] [address] documented in this encounter [facility] 08-14-2024 History of Present illness Narrative [...] nursing note reviewed. Exam conducted with a beauty therapist present. Vitals: Estimated body mass index is [...] Scotty Dhillon DO documented in this encounter [facility] 07-31-2024 History of Present illness Narrative Reason for Appointment: Patient ID: Samantha Benjamin is a 29 y.o. female who presents for Routine Visit Patient presents today for Return OB appointment. MEDICATIONS Current Outpatient Medications Medication Instructions Alcohol Swabs (Alcohol Prep Pad) 70 % pads 1 Pad, Topical, Daily, Use four times daily to check FSBS. Blood Glucose Monitoring Suppl (dough-Helpa Glucometer) w/Device kit 1 kit, Does not [...] by Tashia Moore MA on behalf of: PK Tarango documented in this encounter [facility] 07-17-2024 History of Present illness Narrative Reason [...] Scotty Dhillon DO documented in this encounter [facility] 07-14-2024 History of Present illness Narrative Headache/epigastric pain/blurry vision/swelling? no Cramping/contractions? no Abnormal vaginal discharge? no Spotting/vaginal bleeding? no Loss or gush of fluid like your water may have broken? no Do you have cats at home? no Do you change the litter box (reason: risk of toxoplasmosis)? Genetic testing done this here or other office? yes Have you been seen here at [facility] in a previous ? no Recent ER visits or hospitalizations? no Bring blood sugar log or meter with you today? (Please bring them with you for every visit at [facility]) no Flu vaccine (Jun-September)? no Any [...] outflow tracts on ultrasound BMI 40.0-44.9, adult ([facility]) Past Medical History: Diagnosis Date [...] and the other consultants, we search on [employer] and all the available care everywhere epic I did review all the imaging studies of the patient available on EMR, ordered by the primary care physician and the other consultant technology HABITS: Patient activity no restrictions, diet no [...] her 3 hour glucose tolerance test, refer [facility] for diabetes management.. 8. Patient came more than 1 hour late for her ultrasound appointment and therefore has been rescheduled at our [facility] site. 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 Patient does have ultrasound appointment scheduled with us. Thank you for allowing me to participate in Samantha Benjamin . If there any questions please do not hesitate to contact us. Sincerely, ANICETO FOX MD documented in this encounter [facility] 06-15-2024 History of Present illness Narrative [...] week for routine OB appointment. Documented by PK Tarango on behalf of: PK Tarango documented in this encounter [facility] 05-18-2024 History of Present illness Narrative Reason [...] nursing note reviewed. Exam conducted with a beauty therapist present. Vitals: Estimated body mass index is [...] of MSAFP orders to have drawn at [facility] in [place]. Documented by Angela Butt LPN on behalf of: Scotty Dhillon DO documented in this encounter [facility] 04-20-2024 History of Present illness Narrative Reason [...] week for routine OB appointment. Documented by PK Tarango on behalf of: PK Tarango documented in this encounter [facility] 03-22-2024 History of Present illness Narrative Reason [...] nursing note reviewed. Exam conducted with a beauty therapist present. Vitals: Estimated body mass index is [...] or undercooked meat, and [facility] Patient has been consulted regarding any further do's and don'ts of . Patient voiced understanding and all questions and concerns were answered. Scheduled 09/14/24. No orders of the defined types were placed in this encounter. Follow Up: Patient is to return in 4 weeks for routine OB appointment. Documented by Judie Gutierrez LPN on behalf of: Scotty Dhillon DO documented in this encounter [facility] 02-05-2021 Note OPERATIVE NOTE OPERATION DATE: 02-06-21 ANESTHETIC:Spinal with Duramorph. DUMPSTER OPERATOR:ELVIA Prajapati PREOPERATIVE DIAGNOSIS: 1. Intrauterine at 37 [...] to the Recovery Room in stable condition. [facility] Signed and Approved by: DR SCOTTY DHILLON . 02/11/2021 11:15:00 [facility] 02-05-2021 Note DISCHARGE SUMMARY Discharge Date: 02-09-21 [...] Tylenol, any abdominal pain unrelieved with narcotics. [facility] Signed and Approved by: DR SCOTTY DHILLON . 02/25/2021 23:13:00 [facility] Evaluation note No assessment inform ation available [facility] Work Phone: Evaluation note Diagnosis 20 [...] Chronic hypertension affecting [facility] Diagnosis Third trimester state, incidental 28 weeks gestation of Gestational diabetes mellitus (GDM) in third trimester, gestational diabetes method of control unspecified Hypertension, unspecified type ([facility]) Gestational diabetes mellitus (GDM), antepartum, [...] unspecified Chronic hypertension affecting BMI 40.0-44.9, adult ([facility]) arrhythmia affecting , antepartum Abnormality in heart rate/rhythm, antepartum condition or complication Polyhydramnios affecting Separation of chorion and amnion membranes, antepartum [facility] Diagnosis Abnormal ultrasonic finding on screening of mother, antepartum- Primary [facility] Diagnosis Third trimester state, incidental 34 weeks gestation of Insulin controlled gestational diabetes mellitus (GDM) during , antepartum [facility] Diagnosis 34 weeks gestation of Third trimester state, incidental [facility]* Diagnosis Pulmonary hypertension ([facility])- Primary Other chronic pulmonary heart diseases 35 weeks gestation of documented in [facility] encounter [facility] on filedocumented in this encounter [facility]ructionsNot on filedocumented in this encounter [facility]* Attachments The following attachments cannot be sent through Care Everywhere. * Preeclampsia (Gibraltarian) * labor (Gibraltarian) documented in this encounterPro[facility]ica Health SystemInstructionsNot on file documented in this encounterProMedica Health SystemInstructionsNot on file documented in this encounterProMedica Health SystemInstructionsNot on file documented in this encounterProMedica Health SystemInstructionsNot on file documented in this encounterProMediaz Health SystemInstructionsNot on file documented in this encounterProMediAvita [facility] Summary Purpose Family History [...] and content) DATE CREATED AUTHOR 10/15/2021 [facility] DATE CREATED AUTHOR AUTHOR'S ORGANIZ ATION 02/19/2024 [facility] DATE CREATED AUTHOR AUTHOR'S ORGANIZ ATION 07/17/2024 [facility] DATE CREATED AUTHOR AUTHOR'S ORGANIZ ATION 08/18/2024 [facility] DATE CREATED AUTHOR AUTHOR'S ORGANIZ ATION 08/18/2024 [facility] DATE CREATED AUTHOR AUTHOR'S ORGANIZ ATION 08/31/2024 [facility] Care Teams (unrecognized sec tion and content) Team Status: Active Member Role Status Dates Jacques Mccarthy MD Primary Care Provider Active Team Status: Inactive Member Role Status Dates Jacques Mccarthy MD Primary Care Provider Active Start: January 31, 2024 End: January 31, 2024 Terry Dudley DO Emergency Provider Active St art: January 31, 2024 End: January 31, 2024 Chief Gauger Relationship Specialty Start Date End Date Jacques Mccarthy MD [address] [place] [address] PCP - General Family Medicine 02/08/24 Chief Gauger Relationship Specialty Start Date End Date Jacques Mccarthy MD [address] [place] [address] PCP - General Family Medicine 02/08/24 Chief Gauger Relationship Specialty Start Date End Date Jacques Mccarthy MD PCP - General Family Medicine 10/07/20 Chief Gauger Relationship Specialty Start Date End Date Jacques Mccarthy MD [address] [place] [address] PCP - General Family Medicine 02/08/24 Chief Gauger Relationship Specialty Start Date End Date Jacques Mccarthy MD [address] [place] [address] PCP - General Family Medicine 02/08/24 Chief Gauger Relationship Specialty Start Date End Date Jacques Mccarthy MD [address] [place] [facility] [place] [address] PCP - General Family Medicine 02/08/24 Chief Gauger Relationship Specialty Start Date End Date Jacques Mccarthy MD PCP - General Family Medicine 10/07/20 Chief Gauger Relationship Specialty Start Date End Date Jacques Mccarthy MD [address] [place] [facility] [place] [address] PCP - General Family Medicine 02/08/24 Chief Gauger Relationship Specialty Start Date End Date Jacques Mccarthy MD [address] [place] [facility] [place] [address] PCP - General Family Medicine 02/08/24 Chief Gauger Relationship Specialty Start Date End Date Jacques Mccarthy MD [address] [place] [address] PCP - General Family Medicine 02/08/24 Chief Gauger Relationship Specialty Start Date End Date Jacques Mccarthy MD [address] [place] [address] PCP - General Family Medicine 02/08/24 Chief Gauger Relationship Specialty Start Date End Date Jacques Mccarthy MD [address] [place] [address] PCP - General Family Medicine 02/08/24 Chief Gauger Relationship Specialty Start Date End Date Jacques Mccarthy MD [address] [place] [facility] [place] [address] PCP - General Family Medicine 02/08/24 Chief Gauger Relationship Specialty Start Date End Date Jacques Mccarthy MD [address] [place] [facility] [place] [address] PCP - General Family Medicine 02/08/24 Chief Gauger Relationship Specialty Start Date End Date Jacques Mccarthy MD [address] [place] [facility] [place] [address] PCP - General Family Medicine 02/08/24 Chief Gauger Relationship Specialty Start Date End Date Jacques Mccarthy MD PCP - General Family Medicine 10/07/20 Chief Gauger Relationship Specialty Start Date End Date Jacques Mccarthy MD PCP - General Family Medicine 10/07/20 Chief Gauger Relationship Specialty Start Date End Date Jacques Mccarthy MD PCP - General Family Medicine 10/07/20 Chief Gauger Relationship Specialty Start Date End Date Jacques Mccarthy MD [address] [place] [facility] [place] [address] PCP - General Family Medicine 02/08/24 Chief Gauger Relationship Specialty Start Date End Date Jacques Mccarthy MD [address] [place] [facility] [place] [address] PCP - General Family Medicine 02/08/24 Chief Gauger Relationship Specialty Start Date End Date Jacques Mccarthy MD [address] [place] [address] PCP - General Family Medicine 02/08/24 Chief Gauger Relationship Specialty Start Date End Date Jacques Mccarthy MD PCP - General Family Medicine 10/07/20 Chief Gauger Relationship Specialty Start Date End Date Jacques Mccarthy MD PCP - General Family Medicine 10/07/20 Chief Gauger Relationship Specialty Start Date End Date Jacques [...] BE BASED ON THE PRIMARY CLINICAL RECORDS. [employer] provides no warranty or guarantee of the accuracy or completeness of information in this document.
[2024-09-07 17:14] VITALS: BP 152/94; PULSE 100
[2024-09-07 17:38] VITALS: BP 131/61; PULSE 94
--- NOTE | 2024-09-07 17:47 | US_ITS ---
[address] [address] Patient Name: RADAMES BENJAMIN MRN: [id number] date: 1995 Sex: F Assigned Patient Location: US Current Patient Location: US Accession/Order Number: [id number] Exam Date: 09/07/2024 17:55 Report Date: 09/08/2024 07:53 At the request of: SCOTTY SULLIVAN Procedure: US OB BPP w non-stress EXAMINATION: US OB BPP w non-stress HISTORY: GESTATIONAL DIABETES MELLITUS O24.419 COMPARISON: No relevant comparison available. TECHNIQUE: Ultrasound biophysical profile was performed in the radiology department. non-reactive stress testing was performed by nursing staff in the birthing center. FINDINGS: BREATHING MOVEMENTS: 2 GROSS BODY MOVEMENTS: 2 TONE: 2 QUALITATIVE AMNIOTIC FLUID VOLUME: 2 PRESENTATION: Cephalic HEART RATE: 136 bpm AMNIOTIC FLUID VOLUME: 20.7 cm GESTATIONAL AGE: 36 weeks 0 days US/US OB BPP w non-stress IMPRESSION: Total biophysical profile score: 8 Electronically authenticated by: IRINEO COMBS Date: 09/08/2024 07:53
--- NOTE | 2024-09-07 17:48 | US_ITS ---
[address] [address] Patient Name: RADAMES BENJAMIN MRN: [id number] date: 1995 Sex: F Assigned Patient Location: Current Patient Location: US Accession/Order Number: [id number] Exam Date: 09/07/2024 17:55 Report Date: 09/08/2024 08:26 At the request of: SCOTTY SULLIVAN Procedure: US OB umbilical artery EXAMINATION: US OB umbilical artery HISTORY: GESTATIONAL DIABETES MELLITUS O24.419 COMPARISON: No relevant comparison available. TECHNIQUE: Duplex Doppler evaluation of the umbilical arteries. FINDINGS: Umbilical arteries: 2 position: Cephalic presentation, longitudinal lie Amniotic fluid volume 20.7 cm. Largest fluid pocket 3.3 cm Heart rate: 136 bpm Proximal umbilical artery: 69/27 cm/s, resistive index 0.61. Ratio 2.6 Mid umbilical artery: 109/37 cm/s. Resistive index 0.68. Ratio 3.0 Distal umbilical artery: 86/40 cm/s. Resistive index 0.54. Ratio 2.2 Forward flow identified throughout diastole US/US OB umbilical artery IMPRESSION: Normal exam. Class 0 Umbilical Artery: Class 0 = Normal umbilical artery blood velocity Class I = increased RI or PI, but still forward flow in diastole Class II = Absent end diastolic flow (AEDF) Class III = Reversal of end diastolic flow (REDF) Resistive Index (RI)<1 Systolic/Diastolic ratio (S:D): An S:D ratio of 2-3 after 34 wks is normal Systolic/Diastolic ratio (S:D): Age 16: 3.01 for the 10th percentile, 4.25 for the 50th percentile, 6.07 for the 90th percentile Age 20: 3.16 for the 10th percentile, 4.04 for the 50th percentile, 5.24 for the 90th percentile Age 24: 2.70 for the 10th percentile, 3.50 for the 50th percentile, 4.75 for the 90th percentile Age 28: 2.41 for the 10th percentile, 3.02 for the 50th percentile, 3.97 for the 90th percentile Age 30: 2.43 for the 10th percentile, 3.04 for the 50th percentile, 3.80 for the 90th percentile Age 32: 2.27 for the 10th percentile, 2.73 for the 50th percentile, 3.57 for the 90th percentile Age 34: 2.08 for the 10th percentile, 2.52 for the 50th percentile, 3.41 for the 90th percentile Age 36: 1.96 for the 10th percentile, 2.35 for the 50th percentile, 3.15 for the 90th percentile Age 38: 1.89 for the 10th percentile, 2.24 for the 50th percentile, 3.10 for the 90th percentile Age 40: 1.88 for the 10th percentile, 2.22 for the 50th percentile, 2.68 for the 90th percentile Age 41: 1.93 for the 10th percentile, 2.21 for the 50th percentile, 2.55 for the 90th percentile Age 42: 1.91 for the 10th percentile, 2.51 for the 50th percentile, 3.21 for the 90th percentile Uteroplacental Artery: Resistive Index (RI): Normal=<0.55 High Resistance=Bilateral notches (after 26 wks) and RI>0.55. Unilateral notches (after 26 wks) and RI>0.65 Systolic/Diastolic ratio (S:D) = 2-3 is normal after 32 weeks. Electronically authenticated by: IRINEO COMBS Date: 09/08/2024 08:26
--- NOTE | 2024-09-07 17:48 | US_ITS ---
[address] [address] Patient Name: RADAMES BENJAMIN MRN: [id number] date: 1995 Sex: F Assigned Patient Location: Current Patient Location: US Accession/Order Number: [id number] Exam Date: 09/07/2024 17:55 Report Date: 09/08/2024 08:24 At the request of: SCOTTY SULLIVAN Procedure: US OB growth EXAMINATION: US OB growth HISTORY: GESTATIONAL DIABETES MELLITUS O24.419 COMPARISON: No relevant comparison available. FINDINGS: Heart Rate: 136 bpm Amniotic Fluid Volume: 20.68 cm Number: One Position: Cephalic BIOMETRY: BPD: 8.90 cm; 36 weeks 0 days; 59% HC: 32.94 cm; 37 weeks 3 days; 56% AC: 33.95 cm; 37 weeks 6 days; 95% FL: 6.8 cm; 35 weeks 0 days; 20% EFW: 3066 g, 6 lbs. 12 oz.; 76% FL/AC: 20.0 FL/BPD: 76.4 HC/AC: 0.97 GESTATIONAL AGE: Age by EDC: 36 weeks 0 days SUSANNA by EDC: 10/05/2024 Age by US: 36 weeks 4 days SUSANNA by US: 10/01/2024 US/US OB growth IMPRESSION: Normal interval growth, the abdominal circumference is at the 95th percentile Electronically authenticated by: IRINEO COMBS Date: 09/08/2024 08:24
== END 2024-09-07 18:35 | disposition home or self-care (01) ==
LOC: US 00:28 → FBC 17:08
PROVIDERS: PCP Family Medicine; Visit Provider Obstetrics & Gynecology
DX: O24.419 Gestational diabetes mellitus in pregnancy, unspecified control (principal); Z3A.36 36 weeks gestation of pregnancy
CPT/HCPCS: 76816; 76818; 76820

== ENCOUNTER 2024-09-11 01:27 | Outpatient (OUT) | payer OTHER, MEDICAID, SELFPAY ==
--- OUTSIDE RECORDS SUMMARY | 2024-09-11 01:33 | XMS_ITS | CCD ---
Author Organization [facility] Care Team Providers Care Installation Engineer Name Role Phone JACQUIE, DR FAJARDO Consulting [...] MIGUEL ÁNGEL, DR HANNA Primary Care Unavailable HOLTWOOD, DR IRINEO Pom[facility] Consulting Unavailable JACQUIE, DR [...] Unavailable DAIANAY, DR HANNA Primary Care Unavailable HOLTWOOD, DR IRINEO [facility] Consulting Unavailable JACQUIE, DR [...] DR FAJARDO Admitting Unavailable HOY, DR HANNA [facility] Unavailable JACQUIE, DR FAJARDO Consulting Unavailable JACQUIE, DR FAJARDO Attending Unavailable HOY, DR HANNA [facility] Unavailable JACQUIE, DR FAJARDO Admitting Unavailable JACQUIE, DR FAJARDO Admitting Unavailable WEST, DR IRINEO [facility] Consulting Unavailable MIGUEL ÁNGEL, DR HANNA [facility] Unavailable JACQUIE, DR FAJARDO Attending Unavailable JACQUIE, DR FAJARDO Consulting Unavailable JACQUIE, DR FAJARDO Attending Unavailable DAIANAY, DR HANNA [facility] Unavailable JACQUIE, DR FAJARDO Admitting Unavailable MD Jacques Mccarthy Primary Care Provider [phone] DO Kwesi Dudley Emergency Provider Kwesi Dudley Admitting Unavailable Kwesi Dudley Attending Unavailable Jacques Mccarthy Primary Care Unavailable Jacques Mccarthy MD Primary Care Provider [phone] Jacques Mccarthy MD Primary Care Provider [phone] GREGG FOX Attending Unavailable ZHEN DHILLON R Referring Unavailable JACQUES MCCARTHY Primary Care Unavailable ZHEN DHILLON Attending Unavailable ZHEN DHILLON Attending Unavailable ZHEN DHILLON Attending Unavailable MADISYN GAONA Attending Unavailable ZHEN DHILLON Attending Unavailable MADISYN GAONA Attending Unavailable KARLEE DHILLONY Attending Unavailable NIRMALA, MADISYN Attending Unavailable JACQUIE, ZHEN Attending Unavailable NIRMALA, MADISYN Attending Unavailable JACQUIE, ZHEN Attending Unavailable TERRA LUNDBERG Attending Unavailable JACQUIE, ZHEN R Referring Unavailable HOY, JACQUES M Primary Care Unavailable CESARSANAM F Attending Unavaila ble HOY, JACQUES M Referring Unavailable HOY, JACQUES M Primary Care Unavailable PENSACOLASANAM F Referring Unavaila ble HOY, JACQUES M Primary Care Unavailable JACQUIE, ZHEN R Referring Unavailable HOY, JACQUES M Primary Care Unavailable GERARDO DICKEY Attending Unavailable DOCHEVA, NIKOLINA P Referring Unavailable HOY, JACQUES M Primary Care Unavailable Medications Current Medications Medication Drug Class(es) Dates Sig (Normalized) Sig (Original) aspirin 81 mg delayed release oral tablet (14 sources) Platelet Aggregation Inhibitor, Nonsteroidal Anti-inflammatory Drug take 1 tablet by mouth in the morning aspirin 81 mg Take 1 tablet (81 mg total) by mouth in the morning. Active Blood Glucose Monitoring Suppl (D-Care Glucometer) w/Device kit (20 sources) Start: 07-17-2024 End: 07-17-2025 Blood Glucose [...] ml insulin glargine 100 unt/ml pen injector (19 sources) Insulin Analog Start: 08-23-2024 End: 09-22-2024 [...] chew.. 30 capsule 11 06/15/2024 06/15/2025 Active ONETOUCH ULTRA2 METER misc (7 sources) Start: 07-31-2024 ONETOUCH ULTRA 2 METER misc USE TO CHECK FASTING BLOOD SUGAR BEFORE BREAKFAST & 1 HR AFTER EACH MEAL FOR TOTAL OF 4 TIMES DAILY 07/31/2024 Active Completed/Discontinued Medications Medication Drug Class(es) Dates [...] every 6 (six) hours 08/05/2024 08/22/2024 Discontinued ondansetron 4 mg oral tablet (11 sources) Serotonin-3 Receptor Antagonist End: 09-08-2024 take 1 tablet by mouth every eight hours as needed for nausea and vomiting ondansetron (ZOFRAN) 4 mg tablet Take 4 mg by mouth every 8 (eight) hours as needed for nausea or vomiting. 09/08/2024 Discontinued vits62/FA/om3/dha /epa ( GUMMY ORAL) (11 sources) End: 09-08-2024 vits62/FA/om3/dha/ epa ( GUMMY ORAL) Take by mouth. 09/08/2024 Discontinued vits62/ FA/om3/dha/epa ( GUMMY ORAL) Take by mouth. Active Problems Active Problems Problem Classification Problem Date Documented Date Episodic/Chronic Anxiety disorders (1 source) Anxiety disorder, unspecified; Translations: [ANXIETY DISORDER UNSPECIFIED] Onset: 01-15-2021 Chronic Cardiac dysrhythmias (5 sources) Tachycardia; Translations: [Tachycardia, unspecified] Onset: 09-08-2024 09-08-2024 Episodic Diabetes mellitus without complication (6 sources) Other [...] trimester] Onset: 01-14-2021 Episodic Other complications of ; puerperium affecting management of mother (1 source) Abnormality of heart; Translations: [Anomaly of heart of fetus affecting , antepartum, single or unspecified fetus] 09-08-2024 Episodic Other complications of (12 sources) ultrasound scan abnormal; Translations: [Abnormal ultrasonic finding on screening of mother] Onset: 06-21-2024 06-21-2024 Episodic Other complications of (2 sources) Heartburn; Translations: [Other specified related conditions, second trimester] 06-15-2024 Episodic Other complications of (12 sources) condition affecting obstetrical care of mother; Translations: [Maternal care for abnormalities of the heart rate or rhythm, unspecified trimester, not applicable or unspecified] Onset: 08-15-2024 08-15-2024 Episodic Other complications of (3 sources) ultrasound scan abnormal; Translations: [Abnormal ultrasonic finding on screening of mother] 08-15-2024 Episodic Other complications of (1 source) Abnormal ultrasonic finding on screening of mother; Translations: [Abnormal ultrasonic finding on screening of mother] Onset: 06-21-2024 Episodic Other complications of (1 source) Maternal [...] Polyhydramnios and other problems of amniotic cavity (20 sources) Polyhydramnios; Translations: [Polyhydramnios, unspecified trimester, not applicable or unspecified] Onset: 08-15-2024 08-15-2024 Episodic Pulmonary heart disease (4 sources) Pulmonary hypertension; Translations: [Pulmonary hypertension, unspecified] Onset: 09-08-2024 09-05-2024 Chronic Residual codes; unclassified (2 sources) 35 weeks gestation of ; Translations: [35 WEEKS GESTATION OF ] Onset: 01-26-2021 Episodic Residual codes; unclassified (2 sources) Gestation [...] of ] 08-14-2024 Episodic Residual codes; unclassified (4 sources) Gestation period, 34 weeks; Translations: [34 weeks gestation of ] 08-22-2024 Episodic Residual codes; unclassified (3 sources) Gestation period, 35 weeks; Translations: [35 weeks gestation of ] 09-05-2024 Episodic Residual codes; unclassified (1 source) 32 weeks gestation of ; Translations: [32 weeks gestation of ] Onset: 08-15-2024 Episodic Unclassified (1 source) CONTACT W/AND (SUSP) EXPOS COVID-19; Translations: [CONTACT W/AND (SUSP) EXPOS COVID-19] Onset: 02-27-2021 Unclassified (1 source) elevated blood glucose levels Onset: 07-14-2024 Unclassified (1 source) Observation of PACs Onset: 09-05-2024 Unclassified (1 source) New Patient Onset: 09-08-2024 Past or Other Problems Problem Classification Problem [...] specified noninflammatory disorders of vagina] 04-20-2024 Episodic Other nutritional; endocrine; and metabolic disorders (13 sources) Body mass index 40+ - severely obese; Translations: [Body mass index (BMI) 40.0-44.9, adult] Onset: 06-21-2024 Resolved: 09-08-2024 06-21-2024 Chronic Residual codes; unclassified (1 source) 37 weeks gestation of ; Translations: [37 WEEKS GESTATION OF ] Onset: 02-27-2021 Episodic Residual codes; unclassified (1 source) 36 weeks gestation of ; Translations: [36 WEEKS GESTATION OF ] Onset: 01-31-2021 Episodic Residual codes; unclassified (1 source) 34 weeks gestation of ; Translations: [34 WEEKS GESTATION OF ] Onset: 01-24-2021 Episodic Residual codes; unclassified (1 source) 28 weeks gestation of ; Translations: [28 WEEKS GESTATION OF ] Onset: 12-10-2020 Episodic Results Test Name Value Interpretation Reference Range Facility POCT EKGon 09-08-2024 [facility] US OB BPP W NON-STRESS on 09-08-2024 [place] [id number] Ultrasound Report Signed Patient: SAMANTHA BENJAMIN MR#: [id number] : 1995 Acct:[id number] Age/Sex: 29 / F ADM Date: 09/07/24 Loc: US Attending Dr: Zhen Dhillon D.O. Ordering Physician: Zhen Dhillon D.O. Date of Service: 09/07/24 Procedure(s): US OB BPP w non-stress Accession Number(s): [id number] cc: Zhen Dhillon D.O.; Jacques Mccarthy M.D. [address] [address] Patient Name: SAMANTHA BENJAMIN MRN: [facility]:[id number] date: 1995 Sex: F Assigned Patient Location: US Current Patient Location: US Accession/Order Number: [id number] Exam Date: 09/07/2024 17:55 Report Date: 09/08/2024 07:53 At the request of: ZHEN DHILLON Procedure: US OB BPP w non-stress EXAMINATION: US OB BPP w non-stress HISTORY: GESTATIONAL DIABETES MELLITUS O24.419 COMPARISON: No relevant comparison available. TECHNIQUE: Ultrasound biophysical profile was performed in the radiology department. non-reactive stress testing was performed by nursing staff in the birthing center. FINDINGS: BREATHING MOVEMENTS: 2 GROSS BODY MOVEMENTS: 2 TONE: 2 QUALITATIVE AMNIOTIC FLUID VOLUME: 2 PRESENTATION: Cephalic HEART RATE: 136 bpm AMNIOTIC FLUID VOLUME: 20.7 cm GESTATIONAL AGE: 36 weeks 0 days US/US OB BPP w non-stress IMPRESSION: Total biophysical profile score: 8 Electronically authenticated by: IRINEO COMBS Date: 09/08/2024 07:53 Dictated By: Irineo Combs M.D. Signed By: 09/08/24 0755 DD/ 075 TD/TT: Silhouette Artist: [facility] Radiology, Radiologi st, MD - 09/08/2024 [place] [address] Ultrasound Report Signed Patient: SAMANTHA BENJAMIN MR#: [id number] : 1995 Acct:[id number] Age/Sex: 29 / F ADM Date: 09/07/24 Loc: US Attending Dr: Zhen Dhillon D.O. Ordering Physician: Zhen Dhillon D.O. Date of Service: 09/07/24 Procedure(s): US OB BPP w non-stress Accession Number(s): [id number] cc: Zhen Dhillon D.O.; Jacques Mccarthy M.D. The [place] [address] Patient Name: SAMANTHA BENJAMIN MRN: [facility]:[id number] date: 1995 Sex: F Assigned Patient Location: US Current Patient Location: US Accession/Order Number: [id number] Exam Date: 09/07/2024 17:55 Report Date: 09/08/2024 07:53 At the request of: ZHEN DHILLON Procedure: US OB BPP w non-stress EXAMINATION: US OB BPP w non-stress HISTORY: GESTATIONAL DIABETES MELLITUS O24.419 COMPARISON: No relevant comparison available. TECHNIQUE: Ultrasound biophysical profile was performed in the radiology department. non-reactive stress testing was performed by nursing staff in the birthing center. FINDINGS: BREATHING MOVEMENTS: 2 GROSS BODY MOVEMENTS: 2 TONE: 2 QUALITATIVE AMNIOTIC FLUID VOLUME: 2 PRESENTATION: Cephalic HEART RATE: 136 bpm AMNIOTIC FLUID VOLUME: 20.7 cm GESTATIONAL AGE: 36 weeks 0 days US/US OB BPP w non-stress IMPRESSION: Total biophysical profile score: 8 Electronically authenticated by: IRINEO COMBS Date: 09/08/2024 07:53 Dictated By: Irineo Combs M.D. Signed By: 09/08/24 0755 DD/ 075 TD/TT: Silhouette Artist: [facility] Radiology Study observation (narrative) [facility] OB BPP W NON-STRESS Ordered By: Radiologist Radiology on 09-08-2024 [facility] Work Phone: US OB GROWTHon 09-08-2024 [place] [address] Ultrasound Report Signed Patient: SAMANTHA BENJAMIN MR#: [id number] : 1995 Acct:[id number] Age/Sex: 29 / F ADM Date: 09/07/24 Loc: US Attending Dr: Zhen Dhillon D.O. Ordering Physician: Zhen Dhillon D.O. Date of Service: 09/07/24 Procedure(s): US OB growth Accession Number(s): [id number] cc: Zhen Dhillon D.O.; Jacques Mccarthy M.D. [address] [address] Patient Name: SAMANTHA BENJAMIN MRN: [id number] date: 1995 Sex: F Assigned Patient Location: Current Patient Location: US Accession/Order Number: [id number] Exam Date: 09/07/2024 17:55 Report Date: 09/08/2024 08:24 At the request of: ZHEN DHILLON Procedure: US OB growth EXAMINATION: US OB growth HISTORY: GESTATIONAL DIABETES MELLITUS O24.419 COMPARISON: No relevant comparison available. FINDINGS: Heart Rate: 136 bpm Amniotic Fluid Volume: 20.68 cm Number: One Position: Cephalic BIOMETRY: BPD: 8.90 cm; 36 weeks 0 days; 59% HC: 32.94 cm; 37 weeks 3 days; 56% AC: 33.95 cm; 37 weeks 6 days; 95% FL: 6.8 cm; 35 weeks 0 days; 20% EFW: 3066 g, 6 lbs. 12 oz.; 76% FL/AC: 20.0 FL/BPD: 76.4 HC/AC: 0.97 GESTATIONAL AGE: Age by EDC: 36 weeks 0 days SUSANNA by EDC: 10/05/2024 Age by US: 36 weeks 4 days SUSANNA by US: 10/01/2024 US/US OB growth IMPRESSION: Normal interval growth, the abdominal circumference is at the 95th percentile Electronically authenticated by: IRINEO COMBS Date: 09/08/2024 08:24 Dictated By: Irineo Combs M.D. Signed By: 09/08/24826 DD/ 3 TD/TT: Silhouette Artist: [facility] RadiologyHyunogadelfo day MD - 09/08/2024 [place] [address] Ultrasound Report Signed Patient: SAMANTHA BENJAMIN MR#: [id number] : 1995 Acct:[id number] Age/Sex: 29 / F ADM Date: 09/07/24 Loc: US Attending Dr: Zhen Dhillon D.O. Ordering Physician: Zhen Dhillon D.O. Date of Service: 09/07/24 Procedure(s): US OB growth Accession Number(s): [id number] cc: Zhen Dhillon D.O.; Jacques Mccarthy M.D. The [place] [address] Patient Name: SAMANTHA BENJAMIN MRN: [facility]:[id number] date: 1995 Sex: F Assigned Patient Location: Current Patient Location: Accession/Order Number: [id number] Exam Date: 09/07/2024 17:55 Report Date: 09/08/2024 08:24 At the request of: ZHEN DHILLON Procedure: US OB growth EXAMINATION: US OB growth HISTORY: GESTATIONAL DIABETES MELLITUS O24.419 COMPARISON: No relevant comparison available. FINDINGS: Heart Rate: 136 bpm Amniotic Fluid Volume: 20.68 cm Number: One Position: Cephalic BIOMETRY: BPD: 8.90 cm; 36 weeks 0 days; 59% HC: 32.94 cm; 37 weeks 3 days; 56% AC: 33.95 cm; 37 weeks 6 days; 95% FL: 6.8 cm; 35 weeks 0 days; 20% EFW: 3066 g, 6 lbs. 12 oz.; 76% FL/AC: 20.0 FL/BPD: 76.4 HC/AC: 0.97 GESTATIONAL AGE: Age by EDC: 36 weeks 0 days SUSANNA by EDC: 10/05/2024 Age by US: 36 weeks 4 days SUSANNA by US: 10/01/2024 US/US OB growth IMPRESSION: Normal interval growth, the abdominal circumference is at the 95th percentile Electronically authenticated by: IRINEO COMBS Date: 09/08/2024 08:24 Dictated By: Irineo Combs M.D. Signed By: 09/08/24826 DD/ 3 TD/TT: Silhouette Artist: [facility] Radiology Study observation (narrative) [facility] US OB GROWTHOrdered By: Randy ologmai Radiology on 09-08-2024 [facility] Work Phone: US OB UMBILICAL ARTERY DOPPL Yifan 09-08-2024 [place] [address] Ultrasound Report Signed Patient: SAMANTHA BENJAMIN MR#: [id number] : 1995 Acct:[id number] Age/Sex: 29 / F ADM Date: 09/07/24 Loc: US Attending Dr: Zhen Dhillon D.O. Ordering Physician: Zhen Dhillon D.O. Date of Service: 09/07/24 Procedure(s): US OB umbilical artery Accession Number(s): [id number] cc: Zhen Dhillon D.O.; Jacques Mccarthy M.D. [place] [id number] Patient Name: SAMANTHA BENJAMIN MRN: [id number] date: 1995 Sex: F Assigned Patient Location: US Current Patient Location: US Accession/Order Number: [id number] Exam Date: 09/07/2024 17:55 Report Date: 09/08/2024 08:26 At the request of: ZHEN DHILLON Procedure: US OB umbilical artery EXAMINATION: US OB umbilical artery HISTORY: GESTATIONAL DIABETES MELLITUS O24.419 COMPARISON: No relevant comparison available. TECHNIQUE: Duplex Doppler evaluation of the umbilical arteries. FINDINGS: Umbilical arteries: 2 position: Cephalic presentation, longitudinal lie Amniotic fluid volume 20.7 cm. Largest fluid pocket 3.3 cm Heart rate: 136 bpm Proximal umbilical artery: 69/27 cm/s, resistive index 0.61. Ratio 2.6 Mid umbilical artery: 109/37 cm/s. Resistive index 0.68. Ratio 3.0 Distal umbilical artery: 86/40 cm/s. Resistive index 0.54. Ratio 2.2 Forward flow identified throughout diastole US/US OB umbilical artery IMPRESSION: Normal exam. Class 0 Umbilical Artery: Class 0 = Normal umbilical artery blood velocity Class I = increased RI or PI, but still forward flow in diastole Class II = Absent end diastolic flow (AEDF) Class III = Reversal of end diastolic flow (REDF) Resistive Index (RI)<1 Systolic/Diastolic ratio (S:D): An S:D ratio of 2-3 after 34 wks is normal Systolic/Diastolic ratio (S:D): Age 16: 3.01 for the 10th percentile, 4.25 for the 50th percentile, 6.07 for the 90th percentile Age 20: 3.16 for the 10th percentile, 4.04 for the 50th percentile, 5.24 for the 90th percentile Age 24: 2.70 for the 10th percentile, 3.50 for the 50th percentile, 4.75 for the 90th percentile Age 28: 2.41 for the 10th percentile, 3.02 for the 50th percentile, 3.97 for the 90th percentile Age 30: 2.43 for the 10th percentile, 3.04 for the 50th percentile, 3.80 for the 90th percentile Age 32: 2.27 for the 10th percentile, 2.73 for the 50th percentile, 3.57 for the 90th percentile Age 34: 2.08 for the 10th percentile, 2.52 for the 50th percentile, 3.41 for the 90th percentile Age 36: 1.96 for the 10th percentile, 2.35 for the 50th percentile, 3.15 for the 90th percentile Age 38: 1.89 for the 10th percentile, 2.24 for the 50th percentile, 3.10 for the 90th percentile Age 40: 1.88 for the 10th percentile, 2.22 for the 50th percentile, 2.68 for the 90th percentile Age 41: 1.93 for the 10th percentile, 2.21 for the 50th percentile, 2.55 for the 90th percentile Age 42: 1.91 for the 10th percentile, 2.51 for the 50th percentile, 3.21 for the 90th percentile Uteroplacental Artery: Resistive Index (RI): Normal=<0.55 High Resistance=Bilateral notches (after 26 wks) and RI>0.55. Unilateral notches (after 26 wks) and RI>0.65 Systolic/Diastolic ratio (S:D) = 2-3 is normal after 32 weeks. Electronically authenticated by: IRINEO COMBS Date: 09/08/2024 08:26 Dictated By: rIineo Combs M.D. Signed By: 09/08/24828 DD/ 5 TD/TT: Silhouette Artist: [facility] Radiology, Radiologi MD barb - 09/08/2024 [place] [address] Ultrasound Report Signed Patient: SAMANTHA BENJAMIN MR#: [id number] : 1995 Acct:[id number] Age/Sex: 29 / F ADM Date: 09/07/24 Loc: US Attending Dr: Zhen Dhillon D.O. Ordering Physician: Zhen Dhillon D.O. Date of Service: 09/07/24 Procedure(s): US OB umbilical artery Accession Number(s): [id number] cc: Zhen Dhillon D.O.; Jacques Mccarthy M.D. The [place] [id number] Patient Name: SAMANTHA BENJAMIN MRN: [facility]:[id number] date: 1995 Sex: F Assigned Patient Location: US Current Patient Location: US Accession/Order Number: [id number] Exam Date: 09/07/2024 17:55 Report Date: 09/08/2024 08:26 At the request of: ZHEN DHILLON Procedure: US OB umbilical artery EXAMINATION: US OB umbilical artery HISTORY: GESTATIONAL DIABETES MELLITUS O24.419 COMPARISON: No relevant comparison available. TECHNIQUE: Duplex Doppler evaluation of the umbilical arteries. FINDINGS: Umbilical arteries: 2 position: Cephalic presentation, longitudinal lie Amniotic fluid volume 20.7 cm. Largest fluid pocket 3.3 cm Heart rate: 136 bpm Proximal umbilical artery: 69/27 cm/s, resistive index 0.61. Ratio 2.6 Mid umbilical artery: 109/37 cm/s. Resistive index 0.68. Ratio 3.0 Distal umbilical artery: 86/40 cm/s. Resistive index 0.54. Ratio 2.2 Forward flow identified throughout diastole US/US OB umbilical artery IMPRESSION: Normal exam. Class 0 Umbilical Artery: Class 0 = Normal umbilical artery blood velocity Class I = increased RI or PI, but still forward flow in diastole Class II = Absent end diastolic flow (AEDF) Class III = Reversal of end diastolic flow (REDF) Resistive Index (RI)<1 Systolic/Diastolic ratio (S:D): An S:D ratio of 2-3 after 34 wks is normal Systolic/Diastolic ratio (S:D): Age 16: 3.01 for the 10th percentile, 4.25 for the 50th percentile, 6.07 for the 90th percentile Age 20: 3.16 for the 10th percentile, 4.04 for the 50th percentile, 5.24 for the 90th percentile Age 24: 2.70 for the 10th percentile, 3.50 for the 50th percentile, 4.75 for the 90th percentile Age 28: 2.41 for the 10th percentile, 3.02 for the 50th percentile, 3.97 for the 90th percentile Age 30: 2.43 for the 10th percentile, 3.04 for the 50th percentile, 3.80 for the 90th percentile Age 32: 2.27 for the 10th percentile, 2.73 for the 50th percentile, 3.57 for the 90th percentile Age 34: 2.08 for the 10th percentile, 2.52 for the 50th percentile, 3.41 for the 90th percentile Age 36: 1.96 for the 10th percentile, 2.35 for the 50th percentile, 3.15 for the 90th percentile Age 38: 1.89 for the 10th percentile, 2.24 for the 50th percentile, 3.10 for the 90th percentile Age 40: 1.88 for the 10th percentile, 2.22 for the 50th percentile, 2.68 for the 90th percentile Age 41: 1.93 for the 10th percentile, 2.21 for the 50th percentile, 2.55 for the 90th percentile Age 42: 1.91 for the 10th percentile, 2.51 for the 50th percentile, 3.21 for the 90th percentile Uteroplacental Artery: Resistive Index (RI): Normal=<0.55 High Resistance=Bilateral notches (after 26 wks) and RI>0.55. Unilateral notches (after 26 wks) and RI>0.65 Systolic/Diastolic ratio (S:D) = 2-3 is normal after 32 weeks. Electronically authenticated by: IRINEO COMBS Date: 09/08/2024 08:26 Dictated By: Irineo Combs M.D. Signed By: 09/08/24828 DD/ 5 TD/TT: Silhouette Artist: [facility] Radiology Study observation (narrative) [facility] US OB UMBILICAL ARTERY DOPPL EROrdered By: Radiologist Radiology on 09-08-2024 [facility] Work Phone: [facility] UA (CLEAN/CATCH) DISPLAY DIRECTOR/KEYLA RO IF IND.on 08-30-2024 BILIRUBIN URINE Negative NEGATIVE [facility] Healthcare BLOOD URINE Negative NEGATIVE [facility] Clarity (U) CLEAR CLEAR [facility] Healthcare Color (U) YELLOW YELLOW [facility] GLUCOSE URINE UA Negative NEGATIVE mg/dL [facility] Interpretation and review of laboratory results Abnormal [facility] Ketones Ql (U) 15 mg/dL Abnormal NEGATIVE [facility] Leukocyte esterase Test strip Ql (U) Negative NEGATIVE [facility] NITRITE URINE Negative NEGATIVE [facility] pH (U) 6.0 [pH] 5.0 - 9.0 [facility] Protein (U) [Mass/Vol] 30 mg/dL Abnormal NEG/TRACE NO SC [facility] SPECIFIC GRAVITY URINE >=1.030 Abnormal 1.005 - 1.025 [facility] URINE MICROSCOPIC INDICATED YES [facility] UROBILINOGEN URINE 0.2 EU/dL 0.2 - 1.0 EU/dL [facility] US OB BPP W NON-STRESS on 08-30-[address] [address] Ultrasound Report Signed Patient: SAMANTHA BENJAMIN MR#: [id number] : 1995 Acct:[id number] Age/Sex: 29 / F ADM Date: 08/30/24 Loc: [facility] 250-[address]: Zhen Dhillon D.O. Ordering Physician: Zhen Dhillon D.O. Date of Service: 08/30/24 Procedure(s): US OB BPP w non-stress Accession Number(s): [id number] cc: Zhen Dhillon D.O.; Jacques Mccarthy M.D. [place] [id number] Patient Name: SAMANTHA BENJAMIN MRN: [facility]:[id number] date: 1995 Sex: F Assigned Patient Location: [facility] Current Patient Location: [facility] Accession/Order Number: [id number] Exam Date: 08/30/2024 13:43 Report Date: 08/30/2024 14:27 At the request of: ZHEN DHILLON Procedure: US OB BPP w non-stress Ultrasound biophysical profile CLINICAL: Evaluate well-being. Clinical gestational age of 34 weeks 6 days. TECHNIQUE: Dedicated ultrasound imaging of the fetus was performed to include the investment specialist's evaluation of biophysical profile. FINDINGS: Comparison: Ultrasound [...] Signed By: 08/30/24 1430 DD/ 1427 TD/TT: Silhouette Artist: [facility] Radiology, Radiologadelfo day MD - 08/30/2024 [place] [address] Ultrasound Report Signed Patient: SAMANTHA BENJAMIN MR#: [id number] : 1995 Acct:[id number] Age/Sex: 29 / F ADM Date: 08/30/24 Loc: [facility] 250-[address]: Zhen Dhillon D.O. Ordering Physician: Zhen Dhillon D.O. Date of Service: 08/30/24 Procedure(s): US OB BPP w non-stress Accession Number(s): [id number] cc: Zhen Dhillon D.O.; Jacques Mccarthy M.D. The [place] [address] Patient Name: SAMANTHA BENJAMIN MRN: [facility]:[id number] date: 1995 Sex: F Assigned Patient Location: [facility] Current Patient Location: [facility] Accession/Order Number: [id number] Exam Date: 08/30/2024 13:43 Report Date: 08/30/2024 14:27 At the request of: ZHEN DHILLON Procedure: US OB BPP w non-stress Ultrasound biophysical profile CLINICAL: Evaluate well-being. Clinical gestational age of 34 weeks 6 days. TECHNIQUE: Dedicated ultrasound imaging of the fetus was performed to include the investment specialist's evaluation of biophysical profile. FINDINGS: Comparison: Ultrasound [...] Signed By: 08/30/24 1430 DD/ 1427 TD/TT: Silhouette Artist: [facility] Radiology Study observation (narrative) [facility] US OB BPP W NON-STRESS Ordered By: Radiologist Radiology on 08-30-2024 [facility] Work Phone: Urinalysis macro (dipstick) panel (U)on 08-29-2024 Bilirubin, UA Negative Negative - 4(70) +++ mg/dL [facility] Blood, UA Negative Negative - 50 Hardeep/mcL [facility] Clarity, UA Clear [facility] Color, UA Yellow [facility] Glucose, UA Positive Negative - 1999(110) ++++ mg/dL [facility] Comment on above: 100 Interpretation and review of laboratory results Abnormal [facility] Ketones, UA Negative Negative - 160(16) ++++ mg/dL [facility] Leukocytes, UA Negative Negative - 500+++ Renee/mcL [facility] Nitrite, UA Negative Negative - Positive [facility] pH, UA 7 5 - 9 [facility] Protein, UA Positive Negative - 1999(20) ++++ mg/dL [facility] Comment on above: 30 Spec Grav, UA 1.02 1 - 1.03 [facility] Urobilinogen, UA 1.0 0.2 - 12 mg/dL [facility] Urinalysis macro (dipstick) panel (U)on 08-22-2024 Bilirubin, UA Negative Negative - 4(70) +++ mg/dL [facility] Blood, UA Negative Negative - 50 Hardeep/mcL [facility] Clarity, UA Clear [facility] Color, UA Yellow [facility] Glucose, UA Negative Negative - 1999(110) ++++ mg/dL [facility] Interpretation and review of laboratory results Normal [facility] Ketones, UA Negative Negative - 160(16) ++++ mg/dL [facility] Leukocytes, UA Negative Negative - 500+++ Renee/mcL [facility] Nitrite, UA Negative Negative - Positive [facility] pH, UA 7 5 - 9 [facility] Protein, UA Negative Negative - 2000(20) ++++ mg/dL [facility] Spec Grav, UA 1.015 1 - 1.03 [facility] Urobilinogen, UA 0.2 0.2 - 12 mg/dL [facility] Urinalysis macro (dipstick) panel (U)on 08-14-2024 Bilirubin, UA Negative Negative - 4(70) +++ mg/dL [facility] Blood, UA Positive Negative - 50 Hardeep/mcL [facility] Comment on above: trace-intact Clarity, UA Clear [facility] Color, UA Yellow [facility] Glucose, UA Negative Negative - 1999(110) ++++ mg/dL [facility] Interpretation and review of laboratory results Abnormal [facility] Ketones, UA Positive Negative - 160(16) ++++ mg/dL [facility] Comment on above: 40 Leukocytes, UA Negative Negative - 500+++ Renee/mcL [facility] Nitrite, UA Negative Negative - Positive [facility] pH, UA 6 5 - 9 [facility] Protein, UA Trace Negative - 1999(20) ++++ mg/dL [facility] Spec Grav, UA 1.02 1 - 1.03 [facility] Urobilinogen, UA 0.2 0.2 - 12 mg/dL [facility] ALL CBC WITH AUTO DIFFon BASOPHILS ABSOLUTE AUTO 0.1 [facility] Basophils/100 WBC (Bld) 0.3 % 0.2 - 2.0 % [facility] Eosinophils/100 WBC (Bld) 0.6 % Low 0.9 - 7.0 % [facility] Erythrocyte distribution width (RBC) [Ratio] 12.2 % 11.0 - 15.0 % [facility] Hematocrit (Bld) [Volume fraction] 36.7 % 36.0 - 48.0 % [facility] Hemoglobin (Bld) [Mass/Vol] 12.5 g/dL 12.0 - 16.0 g/dL [facility] IMMATURE GRANULOCYTES ABS AUTO 0.33 High [facility] Immature granulocytes/100 WBC (Bld) 2 % High 0.0 - 0.5 % [facility] Interpretation and review of laboratory results Abnormal [facility] LYMPHOCYTES ABSOLUTE AUTO 1.6 [facility] Lymphocytes/100 WBC (Bld) 9.9 % Low 20.5 - 60.0 % [facility] MCH (RBC) [Entitic mass] 29.7 pg 26.7 - 34.0 pg [facility] MCHC (RBC) [Mass/Vol] 34.1 g/dL 29.9 - 35.2 g/dL [facility] MCV (RBC) [Entitic vol] 87.2 fL 81.0 - 99.0 fL [facility] MONOCYTES ABSOLUTE AUTO 1 High [facility] Monocytes/100 WBC (Bld) 6.3 % 1.7 - 12.0 % [facility] NEUTROPHILS ABSOLUTE AUTO 13.2 High [facility] Neutrophils/100 WBC (Bld) 80.9 % High 43.0 - 75.0 % [facility] Platelet mean volume (Bld) [Entitic vol] 10.5 fL 9.5 - 13.[address] [facility] PLT 247 [facility] RBC 4.21 [facility] WBC 16.3 High [facility] ALL CBC WITH AUTO DIFFon BASOPHILS ABSOLUTE AUTO 0.1 [facility] Basophils/100 WBC (Bld) 0.3 % 0.2 - 2.0 % [facility] Eosinophils/100 WBC (Bld) 0.2 % Low 0.9 - 7.0 % [facility] Erythrocyte distribution width (RBC) [Ratio] 12.1 % 11.0 - 15.0 % [facility] Hematocrit (Bld) [Volume fraction] 35.3 % Low 36.0 - 48.0 % [facility] Hemoglobin (Bld) [Mass/Vol] 12.1 g/dL 12.0 - 16.0 g/dL [facility] IMMATURE GRANULOCYTES ABS AUTO 0.31 High [facility] Immature granulocytes/100 WBC (Bld) 1.7 % High 0.0 - 0.5 % [facility] Interpretation and review of laboratory results Abnormal [facility] LYMPHOCYTES ABSOLUTE AUTO 1.4 [facility] Lymphocytes/100 WBC (Bld) 7.9 % Low 20.5 - 60.0 % [facility] MCH (RBC) [Entitic mass] 29.8 pg 26.7 - 34.0 pg [facility] MCHC (RBC) [Mass/Vol] 34.3 g/dL 29.9 - 35.2 g/dL [facility] MCV (RBC) [Entitic vol] 86.9 fL 81.0 - 99.0 fL [facility] MONOCYTES ABSOLUTE AUTO 1.3 High [facility] Monocytes/100 WBC (Bld) 7.1 % 1.7 - 12.0 % [facility] NEUTROPHILS ABSOLUTE AUTO 15.1 High [facility] Neutrophils/100 WBC (Bld) 82.8 % High 43.0 - 75.0 % [facility] Platelet mean volume (Bld) [Entitic vol] 10.5 fL 9.5 - 13.5 fL [facility] EO # 0 [facility] PLT 217 [facility] RBC 4.06 Low [facility] WBC 18.2 High [facility] UA (CLEAN/CATCH) DISPLAY DIRECTOR/KEYLA RO IF IND.on 08-04-2024 BILIRUBIN URINE Negative NEGATIVE [facility] BLOOD URINE Negative NEGATIVE [facility] Clarity (U) CLEAR CLEAR [facility] Color (U) YELLOW YELLOW [facility] GLUCOSE URINE UA 500 mg/dL Abnormal NEGATIVE [facility] Interpretation and review of laboratory results Abnormal [facility] Ketones Ql (U) Negative NEGATIVE mg/dL [facility] Leukocyte esterase Test strip Ql (U) Negative NEGATIVE [facility] NITRITE URINE Negative NEGATIVE [facility] pH (U) 6.0 [pH] 5.0 - 9.0 [facility] PROTEIN URINE Negative NEG/TRACE mg/dL [facility] SPECIFIC GRAVITY URINE 1.025 1.005 - 1.025 [facility] URINE MICROSCOPIC INDICATED NO [facility] UROBILINOGEN URINE 0.2 EU/dL 0.2 - 1.0 EU/dL [facility] Urinalysis macro (dipstick) panel (U)on 07-31-2024 Bilirubin, UA Negative Negative - 4(70) +++ mg/dL [facility] Blood, UA Positive Negative - 50 Hardeep/mcL [facility] Comment on above: small Clarity, UA Clear [facility] Color, UA Yellow [facility] Glucose, UA Positive Negative - 1999(110) ++++ mg/dL [facility] Comment on above: 250 Interpretation and review of laboratory results Abnormal [facility] Ketones, UA Negative Negative - 160(16) ++++ mg/dL [facility] Leukocytes, UA Negative Negative - 500+++ Renee/mcL [facility] Nitrite, UA Negative Negative - Positive [facility] pH, UA 6 5 - 9 [facility] Protein, UA Trace Negative - 1999(20) ++++ mg/dL [facility] Spec Grav, UA 1.02 1 - 1.03 [facility] Urobilinogen, UA 0.2 0.2 - 12 mg/dL [facility] Urinalysis macro (dipstick) panel (U)on 07-17-2024 Bilirubin, UA Negative Negative - 4(70) +++ mg/dL [facility] Blood, UA Negative Negative - 50 Hardeep/mcL [facility] Clarity, UA Clear [facility] Color, UA Yellow [facility] Glucose, UA Positive Negative - 1999(110) ++++ mg/dL [facility] Comment on above: 500 Interpretation and review of laboratory results Abnormal [facility] Ketones, UA Positive Negative - 160(16) ++++ mg/dL [facility] Comment on above: TRACE Leukocytes, UA Negative Negative - 500+++ Renee/mcL [facility] Nitrite, UA Negative Negative - Positive [facility] pH, UA 5.5 5 - 9 [facility] Protein, UA Negative Negative - 1999(20) ++++ mg/dL [facility] Spec Grav, UA 1.02 1 - 1.03 [facility] Urobilinogen, UA 0.2 0.2 - 12 mg/dL [facility] Glucose random or fasting- P OCTon 07-14-2024 External Glucose Fasting Or Random (Fbs) 169 [facility] ALL CBC WITH AUTO DIFFon BASOPHILS ABSOLUTE AUTO 0.1 [facility] Basophils/100 WBC (Bld) 0.3 % 0.2 - 2.0 % [facility] Eosinophils/100 WBC (Bld) 0.3 % Low 0.9 - 7.0 % [facility] Erythrocyte distribution width (RBC) [Ratio] 12.1 % 11.0 - 15.0 % [facility] Hematocrit (Bld) [Volume fraction] 37.3 % 36.0 - 48.0 % [facility] Hemoglobin (Bld) [Mass/Vol] 12.7 g/dL 12.0 - 16.0 g/dL [facility] IMMATURE GRANULOCYTES ABS AUTO 0.32 High [facility] Immature granulocytes/100 WBC (Bld) 1.8 % High 0.0 - 0.5 % [facility] Interpretation and review of laboratory results Abnormal [facility] LYMPHOCYTES ABSOLUTE AUTO 1.5 [facility] Lymphocytes/100 WBC (Bld) 8.3 % Low 20.5 - 60.0 % [facility] MCH (RBC) [Entitic mass] 30.3 pg 26.7 - 34.0 pg [facility] MCHC (RBC) [Mass/Vol] 34 g/dL 29.9 - 35.2 g/dL [facility] MCV (RBC) [Entitic vol] 89 fL 81.0 - 99.0 fL [facility] MONOCYTES ABSOLUTE AUTO 0.9 High [facility] Monocytes/100 WBC (Bld) 5.2 % 1.7 - 12.0 % [facility] NEUTROPHILS ABSOLUTE AUTO 15 High [facility] Neutrophils/100 WBC (Bld) 84.1 % High 43.0 - 75.0 % [facility] Platelet mean volume (Bld) [Entitic vol] 10.4 fL 9.5 - 13.5 fL [facility] TBH EO # 0.1 [facility] TB PLT 255 [facility] RBC 4.19 Low [facility] WBC 17.8 High [facility] Urinalysis macro (dipstick) panel (U)on 06-15-2024 Bilirubin, UA Negative Negative - 4(70) +++ mg/dL [facility] Blood, UA Negative Negative - 50 Hardeep/mcL [facility] Clarity, UA Clear [facility] Color, UA Yellow [facility] Glucose, UA Positive Negative - 2000(110) ++++ mg/dL [facility] Interpretation and review of laboratory results Abnormal [facility] Ketones, UA Negative Negative - 160(16) ++++ mg/dL [facility] Leukocytes, UA Positive Negative - 500+++ Renee/mcL [facility] Nitrite, UA Negative Negative - Positive [facility] pH, UA 5.5 5 - 9 [facility] Protein, UA Negative Negative - 1999(20) ++++ mg/dL [facility] Spec Grav, UA 1.02 1 - 1.03 [facility] Urobilinogen, UA 1.0 0.2 - 12 mg/dL [facility] Urinalysis macro (dipstick) panel (U)on 05-18-2024 Bilirubin, UA Negative Negative - 4(70) +++ mg/dL [facility] Blood, UA Negative Negative - 50 Hardeep/mcL [facility] Clarity, UA Clear [facility] Color, UA Yellow [facility] Glucose, UA Negative Negative - 1999(110) ++++ mg/dL [facility] Interpretation and review of laboratory results Normal [facility] Ketones, UA Negative Negative - 160(16) ++++ mg/dL [facility] Leukocytes, UA Negative Negative - 500+++ Renee/mcL [facility] Nitrite, UA Negative Negative - Positive [facility] pH, UA 7 5 - 9 [facility] Protein, UA Negative Negative - 1999(20) ++++ mg/dL [facility] Spec Grav, UA 1.025 1 - 1.03 [facility] Urobilinogen, UA 0.2 0.2 - 12 mg/dL [facility] Urinalysis macro (dipstick) panel (U)on 04-20-2024 Bilirubin, UA Positive Negative - 4(70) +++ mg/dL [facility] Comment on above: small Blood, UA Negative Negative - 50 Hardeep/mcL [facility] Clarity, UA Clear [facility] Color, UA Yellow [facility] Glucose, UA Negative Negative - 1999(110) ++++ mg/dL [facility] Interpretation and review of laboratory results Abnormal [facility] Ketones, UA Positive Negative - 160(16) ++++ mg/dL [facility] Comment on above: trace Leukocytes, UA Negative Negative - 500+++ Renee/mcL [facility] Nitrite, UA Negative Negative - Positive [facility] pH, UA 6.5 5 - 9 [facility] Protein, UA Trace Negative - 1999(20) ++++ mg/dL [facility] Spec Grav, UA 1.030 1 - 1.03 [facility] Urobilinogen, UA 1.0 0.2 - 12 mg/dL [facility] Activated partial thrombopla stin time (aPTT) in platelet poor plasma by coagulation aOrdered By: Kwesi Dudley on 01-31-2024 aPTT Coag (PPP) [Time] 26.1 s 25.1-36.5 [facility] Comment on above: A hematocrit value g reater than 55% may lead to inaccurate results in coagulation testing. Patients having hematocrit values >55% require a special collection tube for coagulation studies. Please contact the laboratory at [phone] for redraw instructions. Alanine aminotransferase [En zymatic activity/volume] in Serum or PlasmaOrdered By: Kwesi Dudley on 01-31-2024 ALT [Catalytic activity/Vol] 22 U/L Normal 7-52 [facility] Comment on above: Performed By: #### H S TROP, PTT, CMP, DDIMER, BNP, CK, PT, CBC #### [facility] [address] [place] [address] [place] Albumin [Mass/volume] in Ser um or Plasma by Bromocresol green (BCG) dye binding methoOrdered By: Kwesi Dudley on 01-31-2024 Albumin BCG dye [Mass/Vol] 4.7 g/dL 3.5-5.7 [facility] Alkaline phosphatase [Enzyma tic activity/volume] in Serum or PlasmaOrdered By: Kwesi Dudley on 01-31-2024 ALP [Catalytic activity/Vol] 67 U/L Normal 34-104 [facility] Comment on above: Performed By: #### H S TROP, PTT, CMP, DDIMER, BNP, CK, PT, CBC #### [facility] [address] [place] [id number] [facility] Aspartate aminotransferase [ Enzymatic activity/volume] in Serum or PlasmaOrdered By: Kwesi Dudley on 01-31-2024 AST [Catalytic activity/Vol] 17 U/L Normal 13-39 [facility] Comment on above: Performed By: #### H S TROP, PTT, CMP, DDIMER, BNP, CK, PT, CBC #### [facility] [address] [place] [id number] [place] Automated basophil %Ordered By: Kwesi Dudley on 01-31-2024 Basophils/100 WBC (Bld) 0.6 % Normal . [facility] Comment on above: Performed By: #### H S TROP, PTT, CMP, DDIMER, BNP, CK, PT, CBC #### [address] Automated basophil countOrde red By: Kwesi Dudley on 01-31-2024 Basophils (Bld) [#/Vol] 0.1 10*3/uL Normal 0.0-0.2 [facility] Comment on above: Result Comment: PERF ORMED BY: [place] [address] PATHOLOGIST CAREER DEVELOPMENT COUNSELOR CARLOS HITCHCOCK M.D. Performed By: #### H S TROP, PTT, CMP, DDIMER, BNP, CK, PT, CBC #### [address] Automated blood monocyte cou ntOrdered By: Kwesi Dudley on 01-31-2024 Monocytes (Bld) [#/Vol] 1.3 10*3/uL High 0.0-0.8 [facility] Comment on above: Performed By: #### H S TROP, PTT, CMP, DDIMER, BNP, CK, PT, CBC #### [address] Automated eosinophil %Ordere d By: Kwesi Dudley on 01-31-2024 Eosinophils/100 WBC (Bld) 0.3 % Normal . [facility] Comment on above: Performed By: #### H S TROP, PTT, CMP, DDIMER, BNP, CK, PT, CBC #### [address] Automated eosinophil countOr dered By: Kwesi Dudley on 01-31-2024 Eosinophils (Bld) [#/Vol] 0.1 10*3/uL Normal 0.0-0.45 [facility] Comment on above: Performed By: #### H S TROP, PTT, CMP, DDIMER, BNP, CK, PT, CBC #### [address] Automated monocyte %Ordered By: Kwesi Dudley on 01-31-2024 Monocytes/100 WBC (Bld) 7.5 % Normal . [facility] Comment on above: Performed By: #### H S TROP, PTT, CMP, DDIMER, BNP, CK, PT, CBC #### [address] Automated neutrophil %Ordere d By: Kwesi Dudley on 01-31-2024 Neutrophils/100 WBC (Bld) 79.8 % Normal . [facility] Comment on above: Performed By: #### H S TROP, PTT, CMP, DDIMER, BNP, CK, PT, CBC #### [address] BNP ser/plasOrdered By: Delgado Dudley on 01-31-2024 Natriuretic peptide B (Bld) [Mass/Vol] 30.0 pg/mL Normal 5-100 [facility] Comment on above: Result Comment: PERF ORMED BY: [place] [address] PATHOLOGIST CAREER DEVELOPMENT COUNSELOR CARLOS HITCHCOCK M.D. Performed By: #### H S TROP, PTT, CMP, DDIMER, BNP, CK, PT, CBC #### [address] Bilirubin Test strip Ql (U)O rdered By: Kwesi Dduley on 01-31-2024 Bilirubin Ql (U) Negative Negative [facility] Bilirubin.total [Mass/volume ] in Serum or PlasmaOrdered By: Kwesi Dudley on 01-31-2024 Bilirubin [Mass/Vol] 0.5 mg/dL Normal 0.3-1.0 [facility] Comment on above: Performed By: #### H S TROP, PTT, CMP, DDIMER, BNP, CK, PT, CBC #### [address] Calcium [Mass/volume] in Ser um or PlasmaOrdered By: Kwesi Dudley on 01-31-2024 Calcium [Mass/Vol] 9.6 mg/dL Normal 8.6-10.3 [facility] Comment on above: Performed By: #### H S TROP, PTT, CMP, DDIMER, BNP, CK, PT, CBC #### [address] Carbon dioxide, total [Moles /volume] in Serum or PlasmaOrdered By: Kwesi Dudley on 01-31-2024 CO2 [Moles/Vol] 30.1 mmol/L Normal 21.0-31.0 [facility] Comment on above: Performed By: #### H S TROP, PTT, CMP, DDIMER, BNP, CK, PT, CBC #### [address] Chloride [Moles/volume] in S marty or PlasmaOrdered By: Kwesi Dudley on 01-31-2024 Chloride [Moles/Vol] 101 mmol/L Normal 98-107 [facility] Comment on above: Performed By: #### H S TROP, PTT, CMP, DDIMER, BNP, CK, PT, CBC #### [address] Color of Urine by AutoOrdere d By: Kwesi Dudley on 01-31-2024 Color (U) Colorless Normal Yellow [facility] Comment on above: Order Comment: Name Collection Type:: Clean-Voided Midstream Performed By: #### U A, UHCG #### [address] Complete Blood Count Auto Di ffon 01-31-2024 Mean Corpuscular HGB Conc 34.6 g/dL Normal 32.0-35.0 [facility] Comment on above: Performed By: #### H S TROP, PTT, CMP, DDIMER, BNP, CK, PT, CBC #### [place] [address] [place] Monocytes/100 WBC (Bld) 14.85 % Normal 0.00-20.00 [facility] Comment on above: Performed By: #### H S TROP, PTT, CMP, DDIMER, BNP, CK, PT, CBC #### [address] NRBC% 0.0 /100{WBC} Normal 0-0.5 [facility] Comment on above: Performed By: #### H S TROP, PTT, CMP, DDIMER, BNP, CK, PT, CBC #### [address] Comprehensive Metabolic Pane urszula 01-31-2024 Albumin [Mass/Vol] 4.7 g/dL Normal 3.5-5.7 [facility] Comment on above: Performed By: #### H S TROP, PTT, CMP, DDIMER, BNP, CK, PT, CBC #### [address] Creatinine Clr Calc Pharmacy 119.17 Normal [facility] Comment on above: Result Comment: PERF ORMED BY: [place] [address] PATHOLOGIST CAREER DEVELOPMENT COUNSELOR CARLOS HITCHCOCK M.D. Performed By: #### H S TROP, PTT, CMP, DDIMER, BNP, CK, PT, CBC #### [address] GFR/1.73 sq M.predicted MDRD (S/P/Bld) [Vol rate/Area] mL/min/{1.73_m2} Normal [facility] Comment on above: Performed By: #### H S TROP, PTT, CMP, DDIMER, BNP, CK, PT, CBC #### [address] Creatine kinase [Enzymatic a ctivity/volume] in Serum or PlasmaOrdered By: Kwesi Dudley on 01-31-2024 CK [Catalytic activity/Vol] 76 U/L Normal 30-223 [facility] Comment on above: Performed By: #### H S TROP, PTT, CMP, DDIMER, BNP, CK, PT, CBC #### [address] Creatinine [Mass/volume] in Serum or PlasmaOrdered By: Kwesi Dudley on 01-31-2024 Creatinine [Mass/Vol] 0.80 mg/dL Normal 0.60-1.20 [facility] Comment on above: Performed By: #### H S TROP, PTT, CMP, DDIMER, BNP, CK, PT, CBC #### [place] [id number] [facility] D-Dimer High Sensitivityon 0 01-31-2024 D-Dimer High Sensitivity < 200 Normal 0-243 [facility] Comment on above: Result [...] coagulation studies. Please contact the laboratory at [phone] for redraw instructions. PERFORMED BY: [place] [address] PATHOLOGIST CAREER DEVELOPMENT COUNSELOR CARLOS HITCHCOCK M.D. Performed By: #### H S TROP, PTT, CMP, DDIMER, BNP, CK, PT, CBC #### [place] [id number] [facility] ECG 12 lead ECGon 01-31-2024 ECG 12 lead ECG [facility] Main [place] [address] [place] [address] Electrocardiograph Report Signed Patient: Samantha Benjamin MR#: [id number] : 1995 Acct:[id number] Age/Sex: 28 / F ADM Date: 01/31/24 Loc: ER Room: Type: [facility] ER Attending Dr: Ordering Provider: Kwesi Dudley, DO Date of Service: 01/31/2408/25/1404 ECG/ECG [...] ECG No previous ECGs available Confirmed by KWESI DUDLEY DO ([id number]) on 01/31/2024 7:24:49 PM Referred By: Electronically Signed By:KWESI DUDLEY DO Transcribed By: MUS Signed By Kwesi Dudley DO 192 Normal [facility] Erythrocyte distribution wid th [Ratio] by Automated countOrdered By: Kwesi Dudley on 01-31-2024 Erythrocyte distribution width (RBC) [Ratio] 12.4 % Normal 11.9-15.3 [facility] Comment on above: Performed By: #### H S TROP, PTT, CMP, DDIMER, BNP, CK, PT, CBC #### [facility] [address] [address] Erythrocytes [#/volume] in B lood by Automated countOrdered By: Kwesi Dudley on 01-31-2024 RBC (Bld) [#/Vol] 4.93 10*6/uL Normal 3.60-5.00 [facility] Comment on above: Performed By: #### H S TROP, PTT, CMP, DDIMER, BNP, CK, PT, CBC #### [facility] [address] Fibrin D-dimer [Presence] in Platelet poor plasma by Latex agglutinationOrdered By: Kwesi Dudley on 01-31-2024 Fibrin D-dimer LA Ql (PPP) < 200 ng/mL 0-243 [facility] Comment on above: The reference range [...] coagulation studies. Please contact the laboratory at [phone] for redraw instructions. Glucose [Mass/volume] in Ser um or PlasmaOrdered By: Kwesi Dudley on 01-31-2024 Glucose [Mass/Vol] 91 mg/dL Normal 70-100 [facility] Comment on above: ADA recommended refe rence rangeRandom Glucose Reference Range is dependent on time and content of last meal. Glucose of more than 200 mg/dL in a nonstressed, ambulatory subject supports the diagnosis of Diabetes Mellitus. Result Comment: [place] om Glucose Reference Range is dependent on time and content of last meal. Glucose of more than 200 mg/dL in a nonstressed, ambulatory subject supports the diagnosis of Diabetes Mellitus. ADA recommended reference range Performed By: #### H S TROP, PTT, CMP, DDIMER, BNP, CK, PT, CBC #### [facility] [address] Glucose [Mass/volume] in Uri ne by Test stripOrdered By: Kwesi Dudley on 01-31-2024 Glucose Test strip (U) [Mass/Vol] Normal mg/dL Normal [facility] HCG ( test) IA.rapi d Ql (U)Ordered By: Kwesi Dudley on 01-31-2024 HCG ( test) Ql (U) Positive [facility] HCG,Urineon 01-31-2024 Beta HCG ( test) Ql (U) Positive [facility] Comment on above: Order Comment: Name Collection Type:: Clean-Voided Midstream Result Comment: PERF ORMED BY: [facility] [address] [place] [address] PATHOLOGIST CAREER DEVELOPMENT COUNSELOR CARLOS HITCHCOCK M.D. Performed By: #### H S TROP, PTT, CMP, DDIMER, BNP, CK, PT, CBC #### [facility] [address] Hematocrit [Volume Fraction] of Blood by Automated countOrdered By: Kwesi Luis Enrique on 01-31-2024 Hematocrit (Bld) [Volume fraction] 45.1 % Normal 34.0-46.4 [facility] Comment on above: Performed By: #### H S TROP, PTT, CMP, DDIMER, BNP, CK, PT, CBC #### [address] Hemoglobin Test strip Ql (U) Ordered By: Kwesi Dudley on 01-31-2024 Hemoglobin Ql (U) Negative Negative [facility] Hemoglobin [Mass/volume] in BloodOrdered By: Kwesi Dudley on 01-31-2024 Hemoglobin (Bld) [Mass/Vol] 15.6 g/dL High 11.8-15.4 [facility] Comment on above: Performed By: #### H S TROP, PTT, CMP, DDIMER, BNP, CK, PT, CBC #### [address] INR in Platelet poor plasma by Coagulation assayOrdered By: Kwesi Dudley on 01-31-2024 INR Coag (PPP) [Relative time] 1.2 {INR} Normal [facility] Comment on above: INR Therapeutic Rang [...] BNP, CK, PT, CBC #### [facility] [address] [place] [address] [place] Ketones [Presence] in Urine by Test stripOrdered By: Kwesi Dudley on 01-31-2024 Ketones Ql (U) Negative Normal Negative [facility] Comment on above: Order Comment: Name Collection Type:: Clean-Voided Midstream Performed By: #### U A, UHCG #### [place] [address] [place] Leukocyte esterase [Presence ] in Urine by Test stripOrdered By: Kwesi Dudley on 01-31-2024 Leukocyte esterase Test strip Ql (U) Negative Normal Negative [facility] Comment on above: Order Comment: Name Collection Type:: Clean-Voided Midstream Performed By: #### U A, UHCG #### [place] [address] [place] Leukocytes [#/volume] correc edna for nucleated erythrocytes in Blood by Automated counOrdered By: Kwesi Dudley on 01-31-2024 WBC corrected for nucl RBC Auto (Bld) [#/Vol] 17.5 10*3/uL High 3.8-11.6 [facility] Leukocytes [#/volume] in Blo od by Automated countOrdered By: Kwesi Dudley on 01-31-2024 WBC (Bld) [#/Vol] 17.5 10*3/uL High 3.8-11.6 [facility] Comment on above: Performed By: #### H S TROP, PTT, CMP, DDIMER, BNP, CK, PT, CBC #### [place] [address] [place] Lymphocytes [#/volume] in Bl ood by Automated countOrdered By: Kwesi Dudley on 01-31-2024 Lymphocytes (Bld) [#/Vol] 2.1 10*3/uL Normal 1.00-4.8 [facility] Comment on above: Performed By: #### H S TROP, PTT, CMP, DDIMER, BNP, CK, PT, CBC #### [place] [address] [place] Lymphocytes/100 leukocytes i n Blood by Automated countOrdered By: Kweis Dudley on 01-31-2024 Lymphocytes/100 WBC (Bld) 11.8 % Normal . [facility] Comment on above: Performed By: #### H S TROP, PTT, CMP, DDIMER, BNP, CK, PT, CBC #### [address] MCH [Entitic mass] by Automa edna countOrdered By: Kwesi Dudley on 01-31-2024 MCH (RBC) [Entitic mass] 31.7 pg Normal 24.7-34.3 [facility] Comment on above: Performed By: #### H S TROP, PTT, CMP, DDIMER, BNP, CK, PT, CBC #### [address] MCHC Auto (RBC) [Mass/Vol]Or dered By: Kwesi Dudley on 01-31-2024 MCHC (RBC) [Mass/Vol] 34.6 g/dL 32.0-35.0 [facility] MCV [Entitic volume] by Auto mated countOrdered By: Kwesi Dudley on 01-31-2024 MCV (RBC) [Entitic vol] 91.4 fL Normal 80-100 [facility] Comment on above: Performed By: #### H S TROP, PTT, CMP, DDIMER, BNP, CK, PT, CBC #### [address] Monocyte distribution width [Entitic volume] in Blood by AutomatedOrdered By: Kwesi Dudley on 01-31-2024 Monocyte distribution width Auto (Bld) [Entitic vol] 14.85 % 0.00-20.00 [facility] Neutrophils [#/volume] in Bl ood by Automated countOrdered By: Kwesi Dudley on 01-31-2024 Neutrophils (Bld) [#/Vol] 14.0 10*3/uL High 1.8-7.7 [facility] Comment on above: Performed By: #### H S TROP, PTT, CMP, DDIMER, BNP, CK, PT, CBC #### [place] [address] [place] Nitrite Test strip Ql (U)Ord ered By: Kwesi Dudley on 01-31-2024 Nitrite Ql (U) Negative Negative [facility] No Panel InformationOrdered By: Kwesi Dudley on 01-31-2024 Estimated GFR (CKD-EPI) > 60.0 mL/Min [facility] Creatinine Clearance (Chem 119.17 [facility] Nucleated erythrocytes [Pres ence] in Blood by Automated countOrdered By: Kwesi Dudley on 01-31-2024 Nucleated RBC Auto Ql (Bld) 0.0 /100{WBC} 0-0.5 [facility] Partial Thromboplastin Timeo n 01-31-2024 aPTT Coag (Bld) [Time] 26.1 s Normal 25.1-36.5 [facility] Comment on above: Result Comment: A he matocrit value greater than 55% may lead to inaccurate results in coagulation testing. Patients having hematocrit values >55% require a special collection tube for coagulation studies. Please contact the laboratory at [phone] for redraw instructions. Performed By: #### H S TROP, PTT, CMP, DDIMER, BNP, CK, PT, CBC #### [facility] [address] Platelet mean volume [Entiti c volume] in Blood by Automated countOrdered By: Kwesi Dudley on 01-31-2024 Platelet mean volume (Bld) [Entitic vol] 8.7 fL Normal 6.3-10.7 [facility] Comment on above: Performed By: #### H S TROP, PTT, CMP, DDIMER, BNP, CK, PT, CBC #### [facility] [address] Platelets [#/volume] in Bloo d by Automated countOrdered By: Kwesi Dudley on 01-31-2024 Platelets (Bld) [#/Vol] 297 10*3/uL Normal 150-450 [facility] Comment on above: Performed By: #### H S TROP, PTT, CMP, DDIMER, BNP, CK, PT, CBC #### [facility] [address] [place] [address] [place] Potassium [Moles/volume] in Serum or PlasmaOrdered By: Kwesi Dudley on 01-31-2024 Potassium [Moles/Vol] 3.4 mmol/L Low 3.5-5.1 [facility] Comment on above: Performed By: #### H S TROP, PTT, CMP, DDIMER, BNP, CK, PT, CBC #### [facility] [address] Protein Test strip (U) [Mass /Vol]Ordered By: Kwesi Dudley on 01-31-2024 Protein (U) [Mass/Vol] Negative Negative [facility] Protein [Mass/volume] in Ser um or PlasmaOrdered By: Kwesi Dudley on 01-31-2024 Protein [Mass/Vol] 7.7 g/dL Normal 6.4-8.9 [facility] Comment on above: Performed By: #### H S TROP, PTT, CMP, DDIMER, BNP, CK, PT, CBC #### [facility] [address] Prothrombin time (PT)Ordered By: Kwesi Dudley on 01-31-2024 PT Coag (PPP) [Time] 14.0 s High 9.0-12.9 [facility] Comment on above: A hematocrit value g reater than 55% may lead to inaccurate results in coagulation testing. Patients having hematocrit values >55% require a special collection tube for coagulation studies. Please contact the laboratory at [phone] for redraw instructions. Result Comment: A he matocrit value greater than 55% may lead to inaccurate results in coagulation testing. Patients having hematocrit values >55% require a special collection tube for coagulation studies. Please contact the laboratory at [phone] for redraw instructions. Performed By: #### H S TROP, PTT, CMP, DDIMER, BNP, CK, PT, CBC #### [facility] [address] [place] [id number] [facility] Serum globulin measurement b y calculation (mass/volume)Ordered By: Kwesi Dudley on 01-31-2024 Globulin (S) [Mass/Vol] 3.0 g/dL Normal [facility] Comment on above: Performed By: #### H S TROP, PTT, CMP, DDIMER, BNP, CK, PT, CBC #### [facility] [address] [place] [address] Serum or plasma albumin/glob ulin mass ratioOrdered By: Kwesi Dudley on 01-31-2024 Albumin/Globulin [Mass ratio] 1.6 {ratio} Normal [facility] Comment on above: Performed By: #### H S TROP, PTT, CMP, DDIMER, BNP, CK, PT, CBC #### [address] Serum or plasma anion gap de terminationOrdered By: Kwesi Dudley on 01-31-2024 Anion gap [Moles/Vol] 8.3 mmol/L Normal 6.0-15.0 [facility] Comment on above: Performed By: #### H S TROP, PTT, CMP, DDIMER, BNP, CK, PT, CBC #### [address] Sodium [Moles/volume] in Ser um or PlasmaOrdered By: Kwesi Dudley on 01-31-2024 Sodium [Moles/Vol] 136 mmol/L Normal 136-145 [facility] Comment on above: Performed By: #### H S TROP, PTT, CMP, DDIMER, BNP, CK, PT, CBC #### [address] Specific gravity Test strip (U) [Rel density]Ordered By: Kwesi Dudley on 01-31-2024 Specific gravity (U) [Rel density] 1.005 1.001-1.03 0 [facility] Troponin I High Sensitivityo n 01-31-2024 Troponin I High Sensitivity 3.5 pg/mL Normal 0.0-15.0 [facility] Comment on above: Result Comment: PERF ORMED BY: [place] [address] PATHOLOGIST CAREER DEVELOPMENT COUNSELOR CARLOS HITCHCOCK M.D. Performed By: #### H S TROP, PTT, CMP, DDIMER, BNP, CK, PT, CBC #### [facility] [address] Troponin I.cardiac [Mass/vol ume] in Serum or Plasma by Detection limit <= 0.01 ng/Ordered By: Kwesi Dudley on 01-31-2024 Troponin I.cardiac DL <= 0.01 ng/mL [Mass/Vol] 3.5 pg/mL 0.0-15.0 [facility] Urea nitrogen [Mass/volume] in Serum or PlasmaOrdered By: Kwesi Dudley on 01-31-2024 Urea nitrogen [Mass/Vol] 10 mg/dL Normal 7-25 [facility] Comment on above: Performed By: #### H S TROP, PTT, CMP, DDIMER, BNP, CK, PT, CBC #### [facility] [address] Urinalysison 01-31-2024 Bilirubin,Urine Negative Normal Negative [facility] Comment on above: Order Comment: Name Collection Type:: Clean-Voided Midstream Performed By: #### U A, UHCG #### [address] Glucose Ql (U) Normal Normal Normal [facility] Comment on above: Order Comment: Name Collection Type:: Clean-Voided Midstream Performed By: #### U A, UHCG #### [place] [address] [place] Nitrite,Urine Negative Normal Negative [facility] Comment on above: Order Comment: Name Collection Type:: Clean-Voided Midstream Performed By: #### U A, UHCG #### [place] [id number] [place] Occult Blood,Urine Negative Normal Negative [facility] Comment on above: Order Comment: Name Collection Type:: Clean-Voided Midstream Performed By: #### U A, UHCG #### [place] [id number] [place] Protein,Urine Negative Normal Negative [facility] Comment on above: Order Comment: Name Collection Type:: Clean-Voided Midstream Performed By: #### U A, UHCG #### [address] Specificy [place],Urine 1.005 Normal 1.001-1.03 0 [facility] Comment on above: Order Comment: Name Collection Type:: Clean-Voided Midstream Performed By: #### U A, UHCG #### [address] Urobilinogen,Urine Normal Normal Normal [facility] Comment on above: Order Comment: Name Collection Type:: Clean-Voided Midstream Performed By: #### U A, UHCG #### [address] Urine appearanceOrdered By: Kwesi Dudley on 01-31-2024 Appearance (U) Clear Normal Clear [facility] Comment on above: Order Comment: Name Collection Type:: Clean-Voided Midstream Performed By: #### U A, CG #### [address] Urobilinogen Test strip (U) [Mass/Vol]Ordered By: Kwesi Dudley on 01-31-2024 Urobilinogen (U) [Mass/Vol] Normal mg/dL Normal [facility] pH of Urine by Test stripOrd ered By: Kwesi Dudley on 01-31-2024 pH (U) 6.5 [pH] Normal 5.0-9.0 [facility] Comment on above: Order Comment: Name Collection Type:: Clean-Voided Midstream Performed By: #### U A, CG #### [address] PAP ACOG PANEL 2: 23 to 31on 10-14-2021 . . Normal [facility] Comment on above: Performed By: #### P TT #### [facility] [address] [place] [address] Kaela Dimas Age Gdln ACOG Testing - Normal [facility] Comment on above: Performed By: #### P TT #### [facility] [address] [place] [address] Kaela Dimas DIAGNOSIS: Comment Normal [facility] Comment on above: Result Comment: NEGA TIVE FOR INTRAEPITHELIAL LESION OR MALIGNANCY. CELLULAR CHANGES ASSOCIATED WITH INFLAMMATION ARE PRESENT. Performed By: #### P TT #### [facility] [address] [place] [address] Kaela Dimas Methodology: Comment Normal [facility] Comment on above: Result Comment: This liquid based ThinPrep(R) pap test was screened with the use of an image guided system. Performed By: #### P TT #### [facility] [address] [place] [address] Kaela Dimas Note: Comment Normal [facility] [...] . Performed By: #### P TT #### [facility] [address] [place] [address] Kaela Dimas Performed by: Comment Normal [facility] Comment on above: Result Comment: Nancy Collins, Environmental Monitoring Specialist (ASCP) Performed By: #### P TT #### [facility] [address] [place] [address] Kaela Dimas Reflex Criteria: Comment Normal [facility] Comment on above: Result Comment: The HPV DNA reflex criteria were not met with this specimen result therefore, no HPV testing was performed. . Performed By: #### P TT #### [facility] [address] [place] [address] Kaela Dimas Specimen adequacy: Comment Normal [facility] Comment on above: Result Comment: Sati sfactory for evaluation. Endocervical and/or squamous metaplastic cells (endocervical component) are present. Performed By: #### P TT #### [facility] [address] [place] [address] Kaela Dimas CBC AUTO DIFFon 02-07-2021 BASO # 0.1 103/ul Normal 0.0-0.1 [facility] Comment on above: Performed By: #### C BC #### [facility] [address] [place] [id number] Kaela Judie Basophils/100 WBC (Bld) 0.3 % Normal 0.2-2.0 [facility] Comment on above: Performed By: #### C BC #### [facility] [address] [place] [address] Kaela Judie EO # 0.1 103/ul Normal 0.0-0.7 [facility] Comment on above: Performed By: #### C BC #### [facility] [address] [place], [place] [id number] Kaela Judie Eosinophils/100 WBC (Bld) 0.5 % Critically low 0.9-7.0 [facility] Comment on above: Performed By: #### C BC #### [facility] [address] [place] [address] Kaela Judie Erythrocyte distribution width (RBC) [Ratio] 12.3 % Normal 11.0-15.0 [facility] Comment on above: Performed By: #### C BC #### [facility] [address] [place] [address] Kaela Judie Hematocrit (Bld) [Volume fraction] 33.8 % Critically low 36.0-48.0 [facility] Comment on above: Performed By: #### C BC #### [facility] [address] [place], [place] [id number] Kaela Judie Hemoglobin (Bld) [Mass/Vol] 11.6 g/dL Critically low 12.0-16.0 [facility] Comment on above: Performed By: #### C BC #### [facility] [address] [place] [address] Kaela Judie IG # 0.20 10e3/ul Critically high 0.00-0.03 [facility] Comment on above: Performed By: #### C BC #### [facility] [address] [place], [place] [id number] Kaela Judie IG % 1.2 % Critically high 0.0-0.5 [facility] Comment on above: Performed By: #### C BC #### [facility] [address] [place], [place] [id number] Kaela Judie LYMPH # 1.6 103/ul Normal 1.2-3.8 [facility] Comment on above: Performed By: #### C BC #### [facility] [address] [place], [place] [id number] Kaela Judie Lymphocytes/100 WBC (Bld) 9.2 % Critically low 20.5-60.0 [facility] Comment on above: Performed By: #### C BC #### [facility] [address] [place], [place] [id number] Kaela Judie MANUAL DIFF REQ NO Normal [facility] Comment on above: Performed By: #### C BC #### [facility] [address] [place], [place] [id number] Kaela Judie MCH (RBC) [Entitic mass] 30.8 pg Normal 26.7-34.0 [facility] Comment on above: Performed By: #### C BC #### [facility] [address] [place] [address] Kaela Judie MCHC (RBC) [Mass/Vol] 34.3 g/dL Normal 29.9-35.2 [facility] Comment on above: Performed By: #### C BC #### [facility] [address] [place], [place] [id number] Kaela Judie MCV (RBC) [Entitic vol] 89.7 fL Normal 81.0-99.0 [facility] Comment on above: Performed By: #### C BC #### [facility] [address] [place] [address] Kaela Judie MONO # 0.9 103/ul Critically high 0.3-0.8 [facility] Comment on above: Performed By: #### C BC #### [facility] [address] [place], [place] [id number] Kaela Judie Monocytes/100 WBC (Bld) 5.5 % Normal 1.7-12.0 [facility] Comment on above: Performed By: #### C BC #### [facility] [address] [place], [place] [id number] Kaela Judie NEUT # 14.1 103/ul Critically high 1.4-6.5 [facility] Comment on above: Performed By: #### C BC #### [facility] [address] [place] [address] Kaela Dimas Neutrophils/100 WBC (Bld) 83.3 % Critically high 43.0-75.0 [facility] Comment on above: Performed By: #### C BC #### [facility] [address] [place] [address] Kaela Dimas Platelet mean volume (Bld) [Entitic vol] 11.0 fL Normal 9.5-13.5 [facility] Comment on above: Performed By: #### C BC #### [facility] [address] [place] [address] Kaela Dimas PLT 192 103/ul Normal 150-450 [facility] Comment on above: Performed By: #### C BC #### [facility] [address] [place] [address] Kaela Dimas RBC 3.77 106/ul Critically low 4.20-5.40 [facility] Comment on above: Performed By: #### C BC #### [facility] [address] [place] [address] Kaela Dimas WBC 16.9 103/ul Critically high 4.0-11.0 [facility] Comment on above: Performed By: #### C BC #### [facility] [address] [place] [address] Kaela Dimas ASYMPTOMATIC COVID-19 ANTIGE Non 02-05-2021 EUA Statement SEE BELOW Normal [facility] Comment on above: Result Comment: This test [...] sooner. Performed By: #### G TT3P #### [facility] [address] [place] [address] Kaela Dimas SARS-CoV-2 (COVID-19) RNA RIGOBERTO+probe Ql (Unsp spec) Negative Normal NEGATIVE [facility] Comment on above: Result Comment: Nega tive results are presumptive. They do not preclude infection and should not be used as the sole basis for treatment decisions. Additional confirmatory testing by a molecular method should be considered. Performed By: #### G TT3P #### [facility] [address] [place] [address] Kaela Judie CBC AUTO DIFFon 02-05-2021 BASO # 0.1 103/ul Normal 0.0-0.1 [facility] Comment on above: Performed By: #### C BC #### [facility] [address] [place] [address] Kaela Judie Basophils/100 WBC (Bld) 0.3 % Normal 0.2-2.0 [facility] Comment on above: Performed By: #### C BC #### [facility] [address] [place] [address] Kaela Judie EO # 0.1 103/ul Normal 0.0-0.7 [facility] Comment on above: Performed By: #### C BC #### [facility] [address] [place] [address] Kaela Judie Eosinophils/100 WBC (Bld) 0.3 % Critically low 0.9-7.0 [facility] Comment on above: Performed By: #### C BC #### [facility] [address] [place] [address] Kaela Judie Erythrocyte distribution width (RBC) [Ratio] 12.0 % Normal 11.0-15.0 [facility] Comment on above: Performed By: #### C BC #### [facility] [address] [place] [address] Kaela Dimas Hematocrit (Bld) [Volume fraction] 36.9 % Normal 36.0-48.0 [facility] Comment on above: Performed By: #### C BC #### [facility] [address] [place] [address] Kaela Dimas Hemoglobin (Bld) [Mass/Vol] 12.7 g/dL Normal 12.0-16.0 [facility] Comment on above: Performed By: #### C BC #### [facility] [address] [place] [address] Kaelastephanie Dimas IG # 0.19 10e3/ul Critically high 0.00-0.03 [facility] Comment on above: Performed By: #### C BC #### [facility] [address] [place] [address] Kaela Dimas IG % 1.0 % Critically high 0.0-0.5 [facility] Comment on above: Performed By: #### C BC #### [facility] [address] [place] [address] Kaela Dimas LYMPH # 1.4 103/ul Normal 1.2-3.8 [facility] Comment on above: Performed By: #### C BC #### [facility] [address] [place] [address] Kaela Dimas Lymphocytes/100 WBC (Bld) 7.6 % Critically low 20.5-60.0 [facility] Comment on above: Performed By: #### C BC #### [facility] [address] [place] [address] Kaela Dimsa MANUAL DIFF REQ NO Normal [facility] Comment on above: Performed By: #### C BC #### [facility] [address] [place], [place] [id number] Kaela Dimas MCH (RBC) [Entitic mass] 30.5 pg Normal 26.7-34.0 [facility] Comment on above: Performed By: #### C BC #### [facility] [address] [place] [address] Kaela Dimas MCHC (RBC) [Mass/Vol] 34.4 g/dL Normal 29.9-35.2 [facility] Comment on above: Performed By: #### C BC #### [facility] [address] [place], [place] [address] Kaela Dimas MCV (RBC) [Entitic vol] 88.5 fL Normal 81.0-99.0 [facility] Comment on above: Performed By: #### C BC #### [facility] [address] [place], [place] [id number] Kaela Dimas MONO # 1.0 103/ul Critically high 0.3-0.8 [facility] Comment on above: Performed By: #### C BC #### [facility] [address] [place], [place] [id number] Kaela Dimas Monocytes/100 WBC (Bld) 5.5 % Normal 1.7-12.0 [facility] Comment on above: Performed By: #### C BC #### [facility] [address] [place], [place] [id number] Kaela Dimas NEUT # 15.7 103/ul Critically high 1.4-6.5 [facility] Comment on above: Performed By: #### C BC #### [facility] [address] [place], [place] [id number] Kaela Dimas Neutrophils/100 WBC (Bld) 85.3 % Critically high 43.0-75.0 [facility] Comment on above: Performed By: #### C BC #### [facility] [address] [place], [place] [id number] Kaela Dimas Platelet mean volume (Bld) [Entitic vol] 11.8 fL Normal 9.5-13.5 [facility] Comment on above: Performed By: #### C BC #### [facility] [address] [place], [place] [address] Kaelastephanie Sahuen PLT 226 103/ul Normal 150-450 [facility] Comment on above: Performed By: #### C BC #### [facility] [address] [place], [place] [id number] Kaela Judie RBC 4.17 106/ul Critically low 4.20-5.40 [facility] Comment on above: Performed By: #### C BC #### [facility] [address] [address] Kaelastephanie Dimas WBC 18.5 103/ul Critically high 4.0-11.0 [facility] Comment on above: Performed By: #### C BC #### [facility] [address] [address] Kaelastpehanie Dimas DRUG SCREEN RAPID (URINE)on 02-05-2021 AMP Negative Normal NEGATIVE [facility] Comment on above: Performed By: #### D RUGRPD #### [facility] [address] [place] [address] Kaela Judie BAR Negative Normal NEGATIVE [facility] Comment on above: Performed By: #### D RUGRPD #### [facility] [address] [place] [address] Kaela Judie BUP Negative Normal NEGATIVE [facility] Comment on above: Performed By: #### D RUGRPD #### [facility] [address] [place] [address] Kaela Judie BZO Negative Normal NEGATIVE [facility] Comment on above: Performed By: #### D RUGRPD #### [facility] [address] [place] [address] Kaela Judie JERRY Negative Normal NEGATIVE [facility] Comment on above: Performed By: #### D RUGRPD #### [facility] [address] [place] [address] Kaela Judie CUT-OFFS SEE BELOW Normal [facility] Comment on above: Result Comment: AMP (Amphetamine): 500ng/mL, BAR (Barbituates): 200 ng/mL, BZO (Benzodiazepines): 150 ng/mL, BUP (Buprenorphine): 10 ng/mL, JERRY (Cocaine): 150 ng/mL, mAMP (Methamphetamine): 500 ng/mL, MTD (Methadone): 200 ng/mL, OPI (Opiates): 100 ng/mL, OXY (Oxycodone): 100 ng/mL, PCP (Phencyclidine): 25 ng/mL, PPX (Propoxyphene): 300 ng/mL, THC (Cannabinoids): 50 ng/mL, TCA (Trycyclic Antidepressants): 300 ng/mL Performed By: #### D RUGRPD #### [facility] [address] [address] Kaela Judie DRUG CUT HEADER DRUG CLASS TEST SYST EM CUT-OFF CONCENTRATIONS ARE FOLLOWS: Normal [facility] Comment on above: Performed By: #### D RUGRPD #### [facility] [address] [place] [address] Kaela Judie mAMP Negative Normal NEGATIVE [facility] Comment on above: Performed By: #### D RUGRPD #### [facility] [address] [place] [address] Kaela Judie MTD Negative Normal NEGATIVE [facility] Comment on above: Performed By: #### D RUGRPD #### [facility] [address] [place] [address] Kaela Judie OPI Negative Normal NEGATIVE [facility] Comment on above: Performed By: #### D RUGRPD #### [facility] [address] [place] [address] Kaela Judie OXY Negative Normal NEGATIVE [facility] Comment on above: Performed By: #### D RUGRPD #### [facility] [address] [place] [address] Kaela Judie PCP Negative Normal NEGATIVE [facility] Comment on above: Performed By: #### D RUGRPD #### [facility] [address] [place] [address] Kaela Judie PPX Negative Normal NEGATIVE [facility] Comment on above: Performed By: #### D RUGRPD #### [facility] [address] [place] [address] Kaela Judie TCA Negative Normal NEGATIVE [facility] Comment on above: Performed By: #### D RUGRPD #### [facility] [address] [place] [address] Kaela Judie THC Negative Normal NEGATIVE [facility] Comment on above: Performed By: #### D RUGRPD #### [facility] [address] [place] [address] Kaela Judie TYPE AND SCREENon 02-05-2021 TYPE AND SCREEN Negative Normal [facility] Comment on above: Performed By: #### P TT #### [facility] [address] [place] [address] Kaela Dimas GROUP B STREP CULTUREon S. agalactiae Ag Ql (Unsp spec) Culture Observations: NEGATIVE FOR GROUP B STREPTOCOCCUS. Normal [facility] Comment on above: Performed By: #### P TT #### [facility] [address] [place] [address] Kaela Dimas US PREG BIOPHY W NON [...] Age by EDC: 36 weeks 2 days SUSNANA by EDC: 02/24/2021 Age by US: 34 weeks, 1 day SUSANNA by US: 03/11/2021 IMPRESSION: 1. Single live intrauterine with growth detailed above. 2. Estimated weight is at 7th percentile. Head circumference and femur length are less than 3rd percentile. Electronically authenticated by: MICHELLE LANE Date: 2021-01-30 08:25 Normal [facility] US PREG BIOPHY W NON STRESSo n [...] MICHELLE LANE Date: 2021-01-23 07:22 Normal [facility] US PREG BIOPHY W NON STRESSo n [...] MICHELLE LANE Date: 2021-01-16 07:31 Normal [facility] PROTEIN 24HR URINEon 021 T PROT, 24 HR UR 603.9 mg/24 hr Critically high 42.0-225.0 [facility] Comment on above: Performed By: #### G TT3P #### [facility] [address] [id number] Kaela Judie UR PROT 12.2 mg/dL Critically high <=12.0 [facility] Comment on above: Performed By: #### G TT3P #### [facility] [address] [place] [address] Kaela Judie UR TOT VOL 4950 ml/24 HR Normal [facility] Comment on above: Performed By: #### G TT3P #### [facility] [address] [place], [place] [id number] Kaela Judie CBC AUTO DIFFon 01-13-2021 BASO # 0.0 103/ul Normal 0.0-0.1 [facility] Comment on above: Performed By: #### G TT3P #### [facility] [address] [place] [address] Kaela Judie Basophils/100 WBC (Bld) 0.2 % Normal 0.2-2.0 [facility] Comment on above: Performed By: #### G TT3P #### [facility] [address] [place] [address] Kaela Judie EO # 0.1 103/ul Normal 0.0-0.7 [facility] Comment on above: Performed By: #### G TT3P #### [facility] [address] [place] [address] Kaela Judie Eosinophils/100 WBC (Bld) 0.6 % Critically low 0.9-7.0 [facility] Comment on above: Performed By: #### G TT3P #### [facility] [address] [place] [address] Kaela Judie Erythrocyte distribution width (RBC) [Ratio] 11.7 % Normal 11.0-15.0 [facility] Comment on above: Performed By: #### G TT3P #### [facility] [address] [place], [place] [address] Kaela Judie Hematocrit (Bld) [Volume fraction] 34.5 % Critically low 36.0-48.0 [facility] Comment on above: Performed By: #### G TT3P #### [facility] [address] [address] Kaela Judie Hemoglobin (Bld) [Mass/Vol] 12.1 g/dL Normal 12.0-16.0 [facility] Comment on above: Performed By: #### G TT3P #### [facility] [address] [place] [address] Kaela Judie IG # 0.20 10e3/ul Critically high 0.00-0.03 [facility] Comment on above: Performed By: #### G TT3P #### [facility] [address] [place] [address] Kaela Judie IG % 1.2 % Critically high 0.0-0.5 [facility] Comment on above: Performed By: #### G TT3P #### [facility] [address] [place] [address] Kaela Judie LYMPH # 1.5 103/ul Normal 1.2-3.8 [facility] Comment on above: Performed By: #### G TT3P #### [facility] [address] [place] [address] Kaela Judie Lymphocytes/100 WBC (Bld) 8.6 % Critically low 20.5-60.0 [facility] Comment on above: Performed By: #### G TT3P #### [facility] [address] [place] [address] Kaelastephanie Dimas MANUAL DIFF REQ NO Normal [facility] Comment on above: Performed By: #### G TT3P #### [facility] [address] [place] [address] Kaelastephanie Sahuen MCH (RBC) [Entitic mass] 30.6 pg Normal 26.7-34.0 [facility] Comment on above: Performed By: #### G TT3P #### [facility] [address] [place] [address] Kaela Judie MCHC (RBC) [Mass/Vol] 35.1 g/dL Normal 29.9-35.2 [facility] Comment on above: Performed By: #### G TT3P #### [facility] [address] [place] [address] Kaela Dimas MCV (RBC) [Entitic vol] 87.3 fL Normal 81.0-99.0 [facility] Comment on above: Performed By: #### G TT3P #### [facility] [address] [place] [address] Kaela Dimas MONO # 1.2 103/ul Critically high 0.3-0.8 [facility] Comment on above: Performed By: #### G TT3P #### [facility] [address] [place] [address] Kaela Dimas Monocytes/100 WBC (Bld) 6.6 % Normal 1.7-12.0 [facility] Comment on above: Performed By: #### G TT3P #### [facility] [address] [place] [address] Kaela Dimas NEUT # 14.4 103/ul Critically high 1.4-6.5 [facility] Comment on above: Performed By: #### G TT3P #### [facility] [address] [place] [address] Kaela Dimas Neutrophils/100 WBC (Bld) 82.8 % Critically high 43.0-75.0 [facility] Comment on above: Performed By: #### G TT3P #### [facility] [address] [place] [address] Kaela Dimas Platelet mean volume (Bld) [Entitic vol] 12.1 fL Normal 9.5-13.5 [facility] Comment on above: Performed By: #### G TT3P #### [facility] [address] [place] [address] Kaelastephanie Sahuen PLT 216 103/ul Normal 150-450 [facility] Comment on above: Performed By: #### G TT3P #### [facility] [address] [place] [address] Kaela Judie RBC 3.95 106/ul Critically low 4.20-5.40 [facility] Comment on above: Performed By: #### G TT3P #### [facility] [address] [place] [address] Kaela Judie WBC 17.4 103/ul Critically high 4.0-11.0 [facility] Comment on above: Performed By: #### G TT3P #### [facility] [address] [place], [place] [id number] Kaela Judie CULTURE URINEon 01-13-2021 CULTURE URINE Culture Observations : LIGHT GROWTH OF MIXED GENITAL TINO. NO POTENTIAL PATHOGENS SEEN. Normal [facility] Comment on above: Performed By: #### P TT #### [facility] [address] [place], [place] [address] Kaela Judie LDHon 01-13-2021 LDH 194 U/L Normal 122-222 [facility] Comment on above: Performed By: #### U ELIZABETH, LDH #### [facility] [address] [place], [place] [address] Kaelastephanie Sahuen PROF 14(COMP METB)on 021 Albumin [Mass/Vol] 2.7 g/dL Critically low 3.5-5.0 [facility] Comment on above: Performed By: #### G TT3P #### [facility] [address] [place], [place] [address] Kaela Judie Albumin/Globulin [Mass ratio] 0.9 {ratio} Normal [facility] Comment on above: Performed By: #### G TT3P #### [facility] [address] [place], [place] [address] Kaela Judie ALP [Catalytic activity/Vol] 134 U/L Critically high 38-126 [facility] Comment on above: Performed By: #### G TT3P #### [facility] [address] [place], [place] [address] Kaela Judie ALT [Catalytic activity/Vol] 21 U/L Normal 9-52 [facility] Comment on above: Performed By: #### G TT3P #### [facility] [address] [place], [place] [address] Kaela Judie Anion gap [Moles/Vol] 11.6 mmol/L Normal [facility] Comment on above: Performed By: #### G TT3P #### [facility] [address] [place], [place] [address] Kaela Judie AST [Catalytic activity/Vol] 17 U/L Normal 14-36 [facility] Comment on above: Performed By: #### G TT3P #### [facility] [address] [place] [address] Kaela Judie Bilirubin [Mass/Vol] 0.2 mg/dL Normal 0.2-1.3 [facility] Comment on above: Performed By: #### G TT3P #### [facility] [address] [place] [address] Kaela Judie Calcium [Mass/Vol] 9.1 mg/dL Normal 8.4-10.2 [facility] Comment on above: Performed By: #### G TT3P #### [facility] [address] [place] [address] Kaela Judie Chloride [Moles/Vol] 106 mmol/L Normal 98-107 [facility] Comment on above: Performed By: #### G TT3P #### [facility] [address] [place] [address] Kaela Judie CO2 [Moles/Vol] 25.8 mmol/L Normal 22.0-30.0 [facility] Comment on above: Performed By: #### G TT3P #### [facility] [address] [place] [address] Kaela Judie Creatinine [Mass/Vol] 0.53 mg/dL Normal 0.52-1.04 [facility] Comment on above: Performed By: #### G TT3P #### [facility] [address] [place] [address] Kaela Judie EGFR-AF MEXICAN >60 Normal >=60 [facility] Comment on above: Performed By: #### G TT3P #### [facility] [address] [place] [address] Kaela Judie EGFR-NON AF MEXICAN >60 Normal >=60 [facility] Comment on above: Performed By: #### G TT3P #### [facility] [address] [place] [address] Kaela Judie Globulin (S) [Mass/Vol] 3.0 g/dL Normal [facility] Comment on above: Performed By: #### G TT3P #### [facility] [address] [place], [place] [address] Kaela Judie Glucose [Mass/Vol] 85 mg/dL Normal 74-106 [facility] Comment on above: Performed By: #### G TT3P #### [facility] [address] [place], [place] [address] Kaela Judie Potassium [Moles/Vol] 3.4 mmol/L Normal 3.4-5.0 [facility] Comment on above: Performed By: #### G TT3P #### [facility] [address] [address] Kaela Judie Protein [Mass/Vol] 5.7 g/dL Critically low 6.1-8.2 [facility] Comment on above: Performed By: #### G TT3P #### [facility] [address] [place] [address] Kaela Judie Sodium [Moles/Vol] 140 mmol/L Normal 137-145 [facility] Comment on above: Performed By: #### G TT3P #### [facility] [address] [place] [address] Kaela Judie Urea nitrogen [Mass/Vol] 10.0 mg/dL Normal 7.0-17.0 [facility] Comment on above: Performed By: #### G TT3P #### [facility] [address] [place], [place] [address] Kaela Judie Urea nitrogen/Creatinine [Mass ratio] 18.9 mg/mg Normal [facility] Comment on above: Performed By: #### G TT3P #### [facility] [address] [place] [address] Kaela Judie PTTon 01-13-2021 aPTT Coag (Bld) [Time] 23.6 s Normal 22.3-36.2 [facility] Comment on above: Performed By: #### P TT #### [facility] [address] [place], [place] [address] Kaela Judie URIC ACID SERUMon 01-13-2021 Urate [Mass/Vol] 3.7 mg/dL Normal 2.5-6.2 [facility] Comment on above: Performed By: #### U ELIZABETH, LDH #### [facility] [address] [place] [address] Kaela Judie UA (CLEAN/CATCH) DISPLAY DIRECTOR/MICRO I F IND.on 01-12-2021 Bilirubin Ql (U) Negative Normal NEGATIVE [facility] Comment on above: Performed By: #### U MICRO, UACSIND #### [facility] [address] [place] [address] Kaela Judie Clarity (U) CLEAR Normal CLEAR [facility] Comment on above: Performed By: #### U MICRO, UACSIND #### [facility] [address] [place] [address] Kaela Judie Color (U) LT. YELLOW Normal YELLOW [facility] Comment on above: Performed By: #### U MICRO, UACSIND #### [facility] [address] [place] [address] Kaela Judie Glucose Ql (U) Negative Normal NEGATIVE [facility] Comment on above: Performed By: #### U MICRO, UACSIND #### [facility] [address] [place] [address] Kaela Judie Hemoglobin Ql (U) Negative Normal NEGATIVE [facility] Comment on above: Performed By: #### U MICRO, UACSIND #### [facility] [address] [place] [address] Kaela Judie Ketones Ql (U) Negative Normal NEGATIVE [facility] Comment on above: Performed By: #### U MICRO, UACSIND #### [facility] [address] [place] [address] Kaela Judie LEUKOCYTES TRACE Abnormal NEGATIVE [facility] Comment on above: Performed By: #### U MICRO, UACSIND #### [facility] [address] [place] [address] Kaela Judie Nitrite Ql (U) Negative Normal NEGATIVE [facility] Comment on above: Performed By: #### U MICRO, UACSIND #### [facility] [address] [place] [address] Kaela Judie pH (U) 6.0 [pH] Normal 5-9 [facility] Comment on above: Performed By: #### U MICRO, UACSIND #### [facility] [address] [place] [address] Kaela Dimas SPEC GRAVITY 1.025 Normal 1.005-<=1. 025 [facility] Comment on above: Performed By: #### U MICRO, UACSIND #### [facility] [address] [place] [address] Kaelastephanie Dimas UA PROTEIN Negative Normal NEGATIVE/ TRACE [facility] Comment on above: Performed By: #### U MICRO, UACSIND #### [facility] [address] [place] [address] Kaela Dimas UR MICRO IND INDICATED Normal [facility] Comment on above: Performed By: #### U MICRO, UACSIND #### [facility] [address] [place] [address] Kaela Dimas Urobilinogen Qn (U) 0.2 {Sylvester'U}/dL Normal 0.2 - 1. 0 [facility] Comment on above: Performed By: #### U MICRO, UACSIND #### [facility] [address] [place] [address] Kaela Dimas URINE MICROSCOPIC ONLYon BACTERIA TRACE Abnormal NONE SEEN [facility] Comment on above: Performed By: #### U MICRO, UACSIND #### [facility] [address] [place] [address] Kaela Dimas Bacteria identified Cx Nom (U) INDICATED Normal [facility] Comment on above: Performed By: #### U MICRO, UACSIND #### [facility] [address] [place] [address] Kaela Judie CAST NONE SEEN Normal NONE SEEN [facility] Comment on above: Performed By: #### U MICRO, UACSIND #### [facility] [address] [place] [address] Kaela Dimas Crystals LM Nom (Urine sed) NONE SEEN Normal NONE SEEN [facility] Comment on above: Performed By: #### U MICRO, UACSIND #### [facility] [address] [place] [address] Kaelastephanie Dimas Epithelial cells LM Ql (Urine sed) FEW Abnormal NONE SEEN /RARE [facility] Comment on above: Performed By: #### U MICRO, UACSIND #### [facility] [address] [place] [address] Kaela Judie MUCOUS SMALL Abnormal NONE SEEN [facility] Comment on above: Performed By: #### U MICRO, UACSIND #### [facility] [address] [place] [address] Kaela Judie RBC 0-2 Normal 0-2 [facility] Comment on above: Performed By: #### U MICRO, UACSIND #### [facility] [address] [place] [address] Kaela Judie WBC 2-5 Abnormal NONE SEEN [facility] Comment on above: Performed By: #### U MICRO, UACSIND #### [facility] [address] [place] [address] Kaela Judie US PREG BIOPHY W NON [...] IRINEO COMBS Date: 2021-01-09 07:18 Normal [facility] US PREG GROWTHon 12-31-2020 US PREG GROWTH [...] cm; 32 weeks 2 days; % EFW: 4.188127, 39% FL/AC: 0.701798 FL/BPD: 0.189768 HC/AC: 1.479011 GESTATIONAL AGE: Age by EDC: 32 weeks 1 day SUSANNA by EDC: 02/24/2021 Age by US: 32 weeks 0 days SUSANNA by US: 02/25/2021 IMPRESSION: Normal interval growth Electronically authenticated by: IRINEO COMBS Date: 2020-12-31 09:38 Normal [facility] GTT 3 HR PREGon 12-12-2020 Glucose [Mass/Vol] 86 mg/dL Normal 74-106 [facility] Comment on above: Performed By: #### G TT3P #### [facility] [address] [place] [address] Kaela Judie Glucose [Mass/Vol] 179 mg/dL Normal [facility] Comment on above: Performed By: #### G TT3P #### [facility] [address] [place] [address] Kaela Judie Glucose [Mass/Vol] 131 mg/dL Normal [facility] Comment on above: Performed By: #### G TT3P #### [facility] [address] [place] [address] Kaela Judie Glucose [Mass/Vol] 145 mg/dL Normal [facility] Comment on above: Performed By: #### G TT3P #### [facility] [address] [place] [address] Kaela Judie GLUCOSE - 1HRon 12-05-2020 Glucose [Mass/Vol] 151 mg/dL Critically high 74-106 [facility] Comment on above: Result Comment: sherri ent was approximately 5 minutes late for draw Performed By: #### G LU1HR #### [facility] [address] [place] [address] Kaela Judie HEMOGRAM AND PLATELon 2020 Hematocrit (Bld) [Volume fraction] 38.4 % Normal 36.0-48.0 [facility] Comment on above: Performed By: #### G TT3P #### [facility] [address] [place], [place] [id number] Kaela Dimas Hemoglobin (Bld) [Mass/Vol] 13.2 g/dL Normal 12.0-16.0 [facility] Comment on above: Performed By: #### G TT3P #### [facility] [address] [place] [address] Kaela Dimas MCH (RBC) [Entitic mass] 30.8 pg Normal 26.7-34.0 [facility] Comment on above: Performed By: #### G TT3P #### [facility] [address] [place] [address] Kaela Dimas MCHC (RBC) [Mass/Vol] 34.4 g/dL Normal 29.9-35.2 [facility] Comment on above: Performed By: #### G TT3P #### [facility] [address] [place] [address] Kaela Dimas MCV (RBC) [Entitic vol] 89.5 fL Normal 81.0-99.0 [facility] Comment on above: Performed By: #### G TT3P #### [facility] [address] [place], [place] [address] Kaelastephanie Dimas PLT 238 103/ul Normal 150-450 [facility] Comment on above: Performed By: #### G TT3P #### [facility] [address] [place] [address] Kaelastephanie Dimas RBC 4.29 106/ul Normal 4.20-5.40 [facility] Comment on above: Performed By: #### G TT3P #### [facility] [address] [place], [place] [address] Kaelastephanie Dimas WBC 17.0 103/ul Critically high 4.0-11.0 [facility] Comment on above: Performed By: #### G TT3P #### [facility] [address] [place], [place] [address] Kaelastephanie Dimas US PREG GROWTHon 12-03-2020 PREG GROWTH [...] cm; 28 weeks 0 days; % EFW: 2.666899, 2 lbs. 10 oz., 40% FL/AC: 0.533133 FL/BPD: 0.219556 HC/AC: 1.329755 GESTATIONAL AGE: Age by EDC: 28 weeks 1 day SUSANNA by EDC: 02/24/2021 Age by US: 20 weeks 2 days SUSANNA by US: 02/23/2021 IMPRESSION: Normal interval growth Electronically authenticated by: IRINEO COMBS Date: 2020-12-03 10:04 Normal [facility] Vital Signs Date Time Vital Sign Value Performing Clinician Faci lity 09-08-2024 10:31-0500 Body height 160.9 cm Gerardo Dickey MD Work Phone: [facility] 09-08-2024 10:31-0500 Body mass index (BMI) [Ratio] 39.59 kg/m2 Gerardo Dickey MD Work Phone: [facility] 09-08-2024 10:31-0500 Body weight 102.51 kg Gerardo Dickey MD [facility] 09-08-2024 10:31-0500 Diastolic blood pressure 84 mm[Hg] Gerardo Dickey MD Work Phone: [facility] 09-08-2024 10:31-0500 Heart rate 102 /min Gerardo Dickey MD Work Phone: [facility] 09-08-2024 10:31-0500 SaO2% (BldA) [Mass fraction] 97 % Gerardo Dickey MD Work Phone: [facility] 09-08-2024 10:31-0500 Systolic blood pressure 118 mm[Hg] Gerardo Dickey MD Work Phone: [facility] 09-05-2024 11:13-0500 Body height 160.9 cm Sanam Cesar MD Work Phone: [facility] 09-05-2024 11:13-0500 Body mass index (BMI) [Ratio] 39.84 kg/m2 Sanam Cesar MD Work Phone: [facility] 09-05-2024 11:13-0500 Body weight 103.15 kg Sanam Cesar MD Work Phone: [facility] 09-05-2024 11:13-0500 Diastolic blood pressure 82 mm[Hg] Sanam Cesar MD Work Phone: [facility] 09-05-2024 11:13-0500 Heart rate 102 /min Sanam Cesar MD Work Phone: [facility] 09-05-2024 11:13-0500 SaO2% (BldA) [Mass fraction] 99 % Sanam Cesar MD Work Phone: [facility] 09-05-2024 11:13-0500 Systolic blood pressure 141 mm[Hg] Sanam Cesar MD Work Phone: [facility] 08-29-2024 14:37-0500 Body mass index (BMI) [Ratio] 41.42 kg/m2 Zhen Jacquie DO Work Phone: [facility] 08-29-2024 14:37-0500 Body weight 106.05 kg Hzen Jacquie DO Work Phone: [facility] 08-29-2024 14:37-0500 Diastolic blood pressure 78 mm[Hg] Zhen Jacquie DO Work Phone: [facility] 08-29-2024 14:37-0500 Systolic blood pressure 128 mm[Hg] Zhen Jacquie DO Work Phone: [facility] 08-22-2024 15:09-0500 Body mass index (BMI) [Ratio] 41.45 kg/m2 Zhen Jacquie DO Work Phone: [facility] 08-22-2024 15:09-0500 Body weight 106.14 kg Zhen Jacquie DO Work Phone: [facility] 08-22-2024 15:09-0500 Diastolic blood pressure 80 mm[Hg] Zhen Jacquie DO Work Phone: [facility] 08-22-2024 15:09-0500 Systolic blood pressure 132 mm[Hg] Zhen Jacquie DO Work Phone: [facility] 08-14-2024 16:26-0500 Body mass index (BMI) [Ratio] 41.65 kg/m2 Zhen Jacquie DO Work Phone: [facility] 08-14-2024 16:26-0500 Body weight 106.65 kg Zhen Jacquie DO Work Phone: [facility] 08-14-2024 16:26-0500 Diastolic blood pressure 80 mm[Hg] Zhen Jacquie DO Work Phone: [facility] 08-14-2024 16:26-0500 Systolic blood pressure 130 mm[Hg] Zhen Jacquie DO Work Phone: [facility] 07-31-2024 15:22-0500 Body mass index (BMI) [Ratio] 41.81 kg/m2 Madisyn KERNS Work Phone: [facility] 07-31-2024 15:22-0500 Body weight 107.05 kg Madisyn KERNS Work Phone: [facility] 07-31-2024 15:22-0500 Diastolic blood pressure 72 mm[Hg] Madisyn KERNS Work Phone: [facility] 07-31-2024 15:22-0500 Systolic blood pressure 122 mm[Hg] Madisyn KERNS Work Phone: [facility] 07-17-2024 16:19-0500 Body mass index (BMI) [Ratio] 41.81 kg/m2 Zhen Jacquie DO Work Phone: [facility] 07-17-2024 16:19-0500 Body weight 107.05 kg Zhen Jacquie DO Work Phone: [facility] 07-17-2024 16:19-0500 Diastolic blood pressure 72 mm[Hg] Zhen Jacquie DO Work Phone: [facility] 07-17-2024 16:19-0500 Systolic blood pressure 122 mm[Hg] Zhen Jacquie DO Work Phone: [facility] 07-14-2024 11:13-0500 Body height 160 cm Gregg Fox MD Work Phone: [facility] 07-14-2024 11:13-0500 Body mass index (BMI) [Ratio] 40.74 kg/m2 Gregg Fox MD Work Phone: [facility] 07-14-2024 11:13-0500 Body weight 104.33 kg Gregg Fox MD Work Phone: [facility] 07-14-2024 11:13-0500 Diastolic blood pressure 84 mm[Hg] Gregg Fox MD Work Phone: [facility] 07-14-2024 11:13-0500 Heart rate 104 /min Gregg Fox MD Work Phone: [facility] 07-14-2024 11:13-0500 Systolic blood pressure 144 mm[Hg] Gregg Fox MD Work Phone: [facility] 06-15-2024 15:34-0500 Body mass index (BMI) [Ratio] 40.6 kg/m2 Madisyn KERNS Work Phone: [facility] 06-15-2024 15:34-0500 Body weight 103.96 kg Madisyn Gaona PA Work Phone: [facility] 06-15-2024 15:34-0500 Diastolic blood pressure 76 mm[Hg] Madisyn Nirmala PA Work Phone: [facility] 06-15-2024 15:34-0500 Systolic blood pressure 122 mm[Hg] Madisyn Gaona PA Work Phone: [facility] 05-18-2024 12:07-0400 Body mass index (BMI) [Ratio] 39.5 kg/m2 Zhen Jacquie DO Work Phone: [facility] 05-18-2024 12:07-0400 Body weight 101.15 kg Zhen Jacquie DO Work Phone: [facility] 05-18-2024 12:07-0400 Diastolic blood pressure 78 mm[Hg] Zhen Jacquie DO Work Phone: [facility] 05-18-2024 12:07-0400 Systolic blood pressure 124 mm[Hg] Zhen Jacquie DO Work Phone: [facility] 04-20-2024 08:46-0400 Body mass index (BMI) [Ratio] 39.41 kg/m2 Madisyn Gaona PA Work Phone: [facility] 04-20-2024 08:46-0400 Body weight 100.92 kg Madisyn Gaona PA Work Phone: [facility] 04-20-2024 08:46-0400 Diastolic blood pressure 82 mm[Hg] Madisyn Gaona PA Work Phone: [facility] 04-20-2024 08:46-0400 Systolic blood pressure 122 mm[Hg] Madisyn Nirmala PA Work Phone: [facility] 03-22-2024 11:34-0400 Body mass index (BMI) [Ratio] 39.5 kg/m2 Zhen Jacquie DO Work Phone: [facility] 03-22-2024 11:34-0400 Body weight 101.15 kg Zhen Jacquie DO Work Phone: [facility] 03-22-2024 11:34-0400 Diastolic blood pressure 74 mm[Hg] Zhen Jacquie DO Work Phone: [facility] 03-22-2024 11:34-0400 Systolic blood pressure 122 mm[Hg] Zhen Jacquie DO Work Phone: [facility] 01-31-2024 18:14-0400 Diastolic blood pressure 74 mm[Hg] MD Jacques Mccarthy Work Phone: [facility] 01-31-2024 18:14-0400 Heart rate 100 /min MD Jacques Mccarthy Work Phone: [facility] 01-31-2024 18:14-0400 Respiratory rate 18 /min MD Jacques Mccarthy Work Phone: [facility] 01-31-2024 18:14-0400 SaO2% (BldA) [Mass fraction] 100 % MD Jacques Mccarthy Work Phone: [facility] 01-31-2024 18:14-0400 Systolic blood pressure 156 mm[Hg] MD Jacques Mccarthy Work Phone: [facility] 01-31-2024 14:04-0400 Body height 160.02 cm MD Jacques Mccarthy Work Phone: [facility] 01-31-2024 14:04-0400 Body temperature 97.4 [degF] MD Jacques Mccarthy Work Phone: [facility] 01-31-2024 14:04-0400 Body weight 98.5 kg MD Jacques Mccarthy Work Phone: [facility] Encounters Encounter Date Encounter Type Care Provider Facility Start: 09-08-2024 End: 09-08-2024 Clinisync Result Encounter Zhen Jacquie DO Work Phone: [facility] Unsolicited Start: 09-08-2024 End: 09-08-2024 Clinisync Result Encounter Zhen Jacquie DO Work Phone: [facility] Unsolicited Start: 09-08-2024 End: 09-08-2024 Telephone encounter Terra Lundberg MD Work Phone: [facility] Start: 09-08-2024 End: 09-08-2024 Office consultation new/estab patient 60 min Gerardo Dickey MD Work Phone: [facility] Comment on above: Pulmonary hypertensi on (CMS-HCC) (Primary Dx); 35 weeks gestation of ; Chronic hypertension affecting ; Tachycardia Start: 09-08-2024 End: 09-08-2024 ambulatory GERARDO DICKEY [facility] Start: 09-07-2024 End: 09-07-2024 Chart abstracting Scanning Provider External [facility] Start: 09-05-2024 End: 09-05-2024 Telephone encounter Terra Lundberg MD Work Phone: [facility] Start: 09-05-2024 End: 09-05-2024 ambulatory SANAM CESAR [facility] Start: 09-05-2024 End: 09-05-2024 Office consultation new/estab patient 80 min Sanam Cesar MD Work Phone: [facility] Comment on above: arrhythmia aff ecting , antepartum (Primary Dx); Abnormal ultrasonic finding on screening of mother, antepartum; Anomaly of heart of fetus affecting , antepartum, single or unspecified fetus Start: 08-30-2024 End: 08-30-2024 Clinisync Result Encounter Zhen Jacquie DO Work Phone: [facility] Unsolicited Start: 08-30-2024 End: 08-30-2024 Clinisync Result Encounter Zhen Jacquie DO Work Phone: [facility] Unsolicited Start: 08-29-2024 End: 08-29-2024 flow sheet Zhen Jacquie DO Work Phone: [facility] Comment on above: 34 weeks gestation o f ; Third trimester Start: 08-29-2024 End: 08-29-2024 ambulatory ZHEN JACQUIE Not Available Start: 08-29-2024 End: 08-29-2024 Bamboo flowsheet Zhen Jacquie DO Work Phone: [facility] Start: 08-29-2024 End: 08-29-2024 Bamboo flowsheet Zhen Jacquie DO Work Phone: [facility] Start: 08-22-2024 End: 08-22-2024 ambulatory ZHEN JACQUIE Not Available Start: 08-22-2024 End: 08-22-2024 flow sheet Zhen Jacquie DO Work Phone: [facility] Comment on above: Third trimester preg red; 34 weeks gestation of ; Insulin controlled gestational diabetes mellitus (GDM) during , antepartum Start: 08-22-2024 End: 08-22-2024 Bamboo flowsheet Zhen Jacquie DO Work Phone: [facility] Start: 08-22-2024 End: 08-22-2024 Bamboo flowsheet Zhen Jacquie DO Work Phone: [facility] Start: 08-16-2024 End: 08-16-2024 Documentation procedure Judie Stearns [facility] Start: 08-15-2024 End: 08-15-2024 Office outpatient visit 25 minutes Terra Lundberg MD Work Phone: [facility] Comment on above: 32 weeks gestation o f (Primary Dx); Gestational diabetes mellitus (GDM) in third trimester, gestational diabetes method of control unspecified; Chronic hypertension affecting ; BMI 40.0-44.9, adult ([facility]); arrhythmia affecting , antepartum; Polyhydramnios affecting ; Separation of chorion and amnion membranes, antepartum Start: 08-15-2024 End: 08-15-2024 Orders Only Judie Stearns [facility] Comment on above: Abnormal ultrasonic finding on screening of mother, antepartum (Primary Dx) Start: 08-14-2024 End: 08-14-2024 ambulatory ZHEN JACQUIE Not Available Start: 08-14-2024 End: 08-14-2024 flow sheet Zhen Jacquie DO Work Phone: [facility] Comment on above: 32 weeks gestation o f ; Third trimester Start: 08-14-2024 End: 08-14-2024 Bamboo flowsheet Zhen Jacquie DO Work Phone: [facility] Start: 08-14-2024 End: 08-14-2024 Bamboo flowsheet Zhen Jacquie DO Work Phone: [facility] Start: 08-07-2024 End: 08-07-2024 Clinisync Result Encounter Zhen Jacquie DO Work Phone: [facility] Unsolicited Start: 08-07-2024 End: 08-07-2024 Clinisync Result Encounter Zhen Jacquie DO Work Phone: [facility] Unsolicited Start: 08-05-2024 End: 08-05-2024 Clinisync Result Encounter Zhen Jacquie DO Work Phone: [facility] Unsolicited Start: 08-05-2024 End: 08-05-2024 Clinisync Result Encounter Zhen Jacquie DO Work Phone: [facility] Unsolicited Start: 08-04-2024 End: 08-04-2024 Clinisync Result Encounter Zhen Jacquie DO Work Phone: [facility] Unsolicited Start: 08-04-2024 End: 08-04-2024 Clinisync Result Encounter Zhen Jacquie DO Work Phone: [facility] [...] [facility] Start: 07-17-2024 End: 07-17-2024 ambulatory ZHEN CONNELLYO Not Available Start: 07-17-2024 End: 07-17-2024 flow sheet Zhen Connellyo DO Work Phone: [facility] Comment on above: Third trimester preg red; 28 weeks gestation of ; Gestational diabetes mellitus (GDM) in third trimester, gestational diabetes method of control unspecified; Hypertension, unspecified type (CMS/HCC); Gestational diabetes mellitus (GDM), antepartum, gestational diabetes method of control unspecified; Elevated glucose tolerance test Start: 07-14-2024 End: 07-14-2024 Office consultation new/estab patient 60 min Gregg Fox MD Work Phone: [facility] [place] Comment on above: Gestational diabetes mellitus (GDM), antepartum, gestational diabetes method of control unspecified (Primary Dx); Chronic hypertension affecting Start: 07-14-2024 End: 07-14-2024 ambulatory [facility] Start: 07-13-2024 End: 07-13-2024 Clinisync Result Encounter Madisyn KERNS Work Phone: [facility] Unsolicited Start: 07-13-2024 End: 07-13-2024 Clinisync Result Encounter Madisyn KERNS Work Phone: [facility] Unsolicited Start: 06-21-2024 End: 06-21-2024 Chart abstracting Gregg Fox MD Work Phone: [facility] Start: 06-15-2024 End: 06-15-2024 flow sheet Madisyn KERNS Work Phone: [facility] Comment on above: Second trimester pre gnancy; 24 weeks gestation of ; Diabetes mellitus screening; Elevated blood pressure affecting in first trimester, antepartum; High blood pressure affecting in first trimester, antepartum; Heartburn during in second trimester Start: 06-15-2024 End: 06-15-2024 ambulatory MADISYN GAONA Not Available Start: 06-15-2024 End: 06-15-2024 Bamboo flowsheet Madisyn KERNS Work Phone: [facility] Start: 06-15-2024 End: 06-15-2024 Bamboo flowsheet Madisyn KERNS Work Phone: [facility] Start: 05-18-2024 End: 05-18-2024 Bamboo flowsheet Zhen Jacquie DO Work Phone: [facility] Start: 05-18-2024 End: 05-18-2024 Bamboo flowsheet Zhen Jacquie DO Work Phone: [facility] Start: 05-18-2024 End: 05-18-2024 ambulatory ZHEN JACQUIE Not Available Start: 05-18-2024 End: 05-18-2024 flow sheet Zhen Jacquie DO Work Phone: [facility] Comment on above: 20 weeks gestation o f ; Second trimester Start: 04-20-2024 End: 04-20-2024 Bamboo flowsheet Madisyn KERNS Work Phone: [facility] Start: 04-20-2024 End: 04-20-2024 Bamboo flowsheet Madisyn KERNS Work Phone: [facility] Start: 04-20-2024 End: 04-20-2024 Office outpatient visit 15 minutes Madisyn KERNS Work Phone: [facility] Comment on above: Screening, , for anatomic survey; Well woman exam with routine gynecological exam; Screen for STD (sexually transmitted disease); Vaginal discharge; Second trimester Start: 04-20-2024 End: 04-20-2024 Patient encounter procedure Madisyn KERNS Work Phone: [facility] Start: 04-20-2024 End: 04-20-2024 ambulatory MADISYN GAONA Not Available Start: 03-22-2024 End: 03-22-2024 Bamboo flowsheet Zhen Jacquie DO Work Phone: [facility] Start: 03-22-2024 End: 03-22-2024 Bamboo flowsheet Zhen Jacquie DO Work Phone: [facility] Start: 03-22-2024 End: 03-22-2024 flow sheet Zhen Jacquie DO Work Phone: [facility] Comment on above: Second trimester pre gnancy; Abnormal CBC Start: 03-22-2024 End: 03-22-2024 ambulatory ZHEN JACQUIE Not Available Start: 02-24-2024 End: 02-24-2024 ambulatory ZHEN JACQUIE Not Available Start: 02-22-2024 End: 02-22-2024 ambulatory MADISYN GAONA Not Available Start: 02-11-2024 End: 02-11-2024 ambulatory ZHEN JACQUIE Not Available Start: 02-08-2024 End: 02-08-2024 ambulatory ZHEN JACQUIE Not Available Start: 01-31-2024 End: 01-31-2024 Emergency department patient visit MD Jacques Mccarthy Work Phone: [facility] Work Phone: Start: 10-08-2021 End: 10-08-[address] ZHEN DHILLON Facility:[facility] Start: 02-19-[address] ZHEN DHILLON Facility :[facility] Start: 02-11-2021 End: 02-11-[address] ZHEN DHILLON Facility:[facility] Start: 02-06-2021 Evaluation and management of inpatient DR ZHEN DHILLON Facility:[facility] Start: 02-05-2021 End: 02-09-2021 Evaluation and management of inpatient DR ZHEN DHILLON Facility:[facility] Start: 01-30-2021 End: 01-30-[address] ZHEN DHILLON Facility:[facility] Start: 01-29-2021 End: 01-29-[address] ZHEN DHILLON Facility:[facility] Start: 01-22-2021 End: 01-22-[address] ZHEN DHILLON Facility:[facility] Start: 01-15-2021 End: 01-15-[address] ZHEN DHILLON Facility:[facility] Start: 01-14-2021 End: 01-14-[address] ZHEN DHILLON Facility:[facility] Start: 01-13-2021 End: 01-13-[address] ZHEN DHILLON Facility:[facility] Start: 01-08-2021 End: 01-08-[address] JACQUES MCCARTHY Facility:[facility] Start: 12-31-2020 End: 01-01-[address] IRINEO COMBS Facility:[facility] Start: 12-19-2020 End: 12-20-[address] JACQUES MCCARTHY Facility:[facility] Start: 12-12-2020 End: 12-13-[address] ZHEN DHILLON Facility:[facility] Start: 12-05-2020 End: 12-06-[address] ZHEN DHILLON Facility:[facility] Start: 12-03-2020 End: 12-04-[address] ZHEN DHILLON Facility:[facility] Start: 11-01-[address] ZHEN DHILLON Facility :[facility] Procedures Date Procedure Procedure Detail Performing Clinician Start: 09-08-2024 Ecg routine ecg w/le ast 12 lds w/i&r Gerardo Dickey MD Work Phone: Start: 09-08-2024 US OB UMBILICAL LARRY RY DOPPLER Zhen Jacquie DO Work Phone: Start: 09-08-2024 US OB GROWTH Zhen Fazi o DO Work Phone: Start: 09-08-2024 US OB BPP W NON-STRESS Zhen Jacquie DO Work Phone: Start: 08-30-2024 US OB BPP W NON-STRESS Zhen Jacquie DO Work Phone: Start: 08-30-2024 [facility] UA (CLEAN/CATCH) DISPLAY DIRECTOR/MICRO IF IND. Zhen Jacquie DO Work Phone: Start: 08-29-2024 Urnls dip stick/tabl et rgnt non-auto w/o micrscp Zhen Jacquie DO Work Phone: Start: 08-22-2024 Urnls dip stick/tabl et rgnt non-auto w/o micrscp Zhen Jacquie DO Work Phone: Start: 08-14-2024 Urnls dip stick/tabl et rgnt non-auto w/o micrscp Zhen Jacquie DO Work Phone: Start: 08-07-2024 ALL CBC WITH AUTO DIFF Zhen Jacquie DO Work Phone: Start: 08-05-2024 ALL CBC WITH AUTO DIFF Zhen Jacquie DO Work Phone: Start: 08-04-2024 [facility] UA (CLEAN/CATCH) DISPLAY DIRECTOR/MICRO IF IND. Zhen Jacquie DO Work Phone: Start: 07-31-2024 Urnls dip stick/tabl et rgnt non-auto w/o micrscp Madisyn KERNS Work Phone: Start: 07-17-2024 Urnls dip stick/tabl et rgnt non-auto w/o micrscp Zhen Jacquie DO Work Phone: Start: 07-14-2024 Glucose quantitative blood xcpt reagent strip Gregg Fox MD Work Phone: Start: 07-13-2024 ALL CBC WITH AUTO DIFF Madisyn KERNS Work Phone: Start: 06-15-2024 Urnls dip stick/tabl et rgnt non-auto w/o micrscp Madisyn KERNS Work Phone: Start: 05-18-2024 Urnls dip stick/tabl et rgnt non-auto w/o micrscp Zhen Jacquie DO Work Phone: Start: 04-20-2024 Urnls dip stick/tabl et rgnt non-auto w/o micrscp Madisyn KERNS Work Phone: Start: 02-06-2021 Extraction of Produc ts of Conception, Low Cervical, Open Approach DR ZHEN DHILLON Start: 02-05-2021 Introduction of Othe r Hormone into Peripheral Vein, Percutaneous Approach DR ZHEN DHILLON Plan of Treatment Date Care Activity Detail Author Start: 09-08-2025 Adult BMI Screening Adult BMI Screen ing [facility] Start: 09-08-2025 Tobacco Screening Tobacco Screening [facility] Start: 09-05-2025 Adult BMI Screening Adult BMI Screen ing [facility] Start: 09-05-2025 Tobacco Screening Tobacco Screening [facility] Start: 08-15-2025 Tobacco Screening Tobacco Screening [facility] Start: 07-14-2025 Adult BMI Screening Adult BMI Screen ing [facility] Start: 06-21-2025 Adult BMI Screening Adult BMI Screen ing [facility] Start: 04-30-2025 End: 04-30-2025 Patient encounter procedure 04/30/2025 9:00 AM EDT [facility] [address] [place] [address] Gerardo Dickey MD [address] [place] [address] [facility] Start: 09-14-2024 End: 09-14-2024 Admission to same day surgery center 09/14/2024 2:00 PM EST - 09/14/2024 3:00 PM EST Surgery [facility] [address] [place] [id number] Irineo Bueno MD [address] [facility] [address] [address] REPEAT [14419 (CPT )] [facility] Comment on above: REPEAT [59 620 (CPT )] Start: 09-14-2024 End: 09-14-2024 delivery attempted REPEAT 09/14/2024 2:00 PM EST NUÑEZ LD OR Start: 09-14-2024 Subsequent hospital visit by physician 09/14/2024 2:00 PM EST Hospital Encounter [facility] [address] [place] [phone] Irineo Bueno MD [address] [facility] [place], [place] [id number] [facility] Start: 09-08-2024 End: 09-08-2024 Patient encounter procedure 09/08/2024 10:30 AM EST Office Visit [facility] [address] [place] [address] Gerardo Dickey MD [address] [place] [address] [facility] Start: 09-05-2024 End: 09-05-2024 Patient encounter procedure 09/05/2024 10:40 AM EST Routine [facility] [address] [place] [phone] Zhen Dhillon DO [address] [place] [address] [facility] Start: 08-30-2024 End: 08-30-2024 Patient encounter procedure 08/30/2024 10:30 AM EST Office Visit [facility] [address] [place] [phone] Sanam Cesar MD [address] [place] [address] [facility] Start: 08-29-2024 End: 08-29-2024 Patient encounter procedure [facility] Comment on above: Arrived Start: 08-22-2024 End: 08-22-2024 Patient encounter procedure 08/22/2024 2:30 PM EST Routine [facility] [address] [place] [address] Zhen Dhillon, DO [address] [place] [address] [facility] Start: 08-14-2024 End: 08-14-2024 Patient encounter procedure 08/14/2024 3:30 PM EST Routine [facility] [address] [place] [phone] Zhen Dhillon, DO [address] [place] [address] [facility] Start: 07-31-2024 End: 07-31-2024 Patient encounter procedure [facility] Comment on above: Arrived Start: 07-17-2024 End: 07-17-2024 Patient encounter procedure 07/17/2024 3:20 PM EST Routine [facility] [address] [place] [address] Zhen Dhillon, DO [address] [place] [address] [facility] Start: 07-17-2024 End: 07-17-2024 Professional / ancillary services management 07/17/2024 3:00 PM EST Ancillary Procedure [facility] [address] [place] [phone] [facility] Start: 07-17-2024 End: 07-17-2025 US biophysical profile w non stress test US biophysical profile w non stress test Imaging Routine Third trimester Gestational diabetes mellitus (GDM) in third trimester, gestational diabetes method of control unspecified Hypertension, unspecified type ([facility]) Expected: 07/17/2024 (Approximate), Expires: 07/17/2025 [facility] Comment on above: Expected: 07/17/2024 (Approximate), Expires: 07/17/2025 Start: 07-17-2024 End: 07-17-2025 US for US OB SCAN FOR GROWTH Imaging Routine Third trimester Gestational diabetes mellitus (GDM) in third trimester, gestational diabetes method of control unspecified Hypertension, unspecified type ([facility]/H[facility]) Expected: 07/17/2024 (Approximate), Expires: 07/17/2025 [facility] Healthcare Work Phone: Comment on above: Expected: 07/17/2024 (Approximate), Expires: 07/17/2025 Start: 07-14-2024 End: 07-14-2024 Patient encounter procedure [facility] [place] Start: 06-15-2024 End: 06-15-2024 Patient encounter procedure 06/15/2024 3:30 PM EST Routine [facility] [address] [facility] [place] [phone] Madisyn Gaona PA [address] [place], [place] [id number] [facility] Start: 06-15-2024 End: 06-15-2025 CBC panel - Blood by Automated count CBC Lab Routine Diabetes mellitus screening Expected: 06/15/2024 (Approximate), Expires: 06/15/2025 [facility] Healthcare Work Phone: Comment on above: Expected: 06/15/2024 (Approximate), Expires: 06/15/2025 Start: 06-15-2024 End: 06-15-2025 Measurement of glucose 1 hour after glucose challenge for glucose tolerance test Glucose tolerance, 1 hour Lab Routine Diabetes mellitus screening Expected: 06/15/2024 (Approximate), Expires: 06/15/2025 [facility] Comment on above: Expected: 06/15/2024 (Approximate), Expires: 06/15/2025 Start: 05-18-2024 End: 05-18-2024 Patient encounter procedure 05/18/2024 11:40 AM EDT Office Visit [facility] [address] [facility] [address] [place] [phone] Zhen Dhillon DO [address] [place] [address] [facility] Start: 05-18-2024 End: 05-18-2024 Professional / ancillary services management 05/18/2024 10:30 AM EDT Ancillary Procedure [facility] [address] [facility] [phone] [facility] Start: 04-20-2024 End: 04-20-2025 [...] Start: 04-02-2024 Influenza vaccination Influenza Vacc ine [facility] Start: 03-22-2024 End: 03-22-2024 Patient encounter procedure 03/22/2024 11:20 AM EDT Routine [facility] [address] [facility] [phone] Zhen Dhillon DO [address] [facility] [place] [address] Arrived [facility] Comment on above: Arrived Start: 2018 Screening for malign ant neoplasm of cervix Pap Smear [facility] Start: 2016 DTaP,Tdap and Td Vaccines (1 - Tdap) DTaP,Tdap and Td Vaccines (1 - Tdap) [facility] Start: 2015 Adult BMI Follow Up Plan Adult BMI Follow Up Plan [facility] Start: 2015 Adult BMI Screening Adult BMI Screen ing [facility] Start: 2009 Depression Screening Depression Scre ening [facility] Start: 2009 Tobacco Screening Tobacco Screening [facility] CBC W Auto Different ial panel - Blood CBC and differential Lab Routine Abnormal CBC Ordered: 03/22/2024 [facility] Work Phone: Comment on above: Ordered: 03/22/2024 Patient Education - Th e Second Month High Blood Pressure ED [facility] Work Phone: Patient referral [facility] Work Phone: Payers Date Payer Category Payer Medicaid [id number] 2024 Medicaid [id number] 2024 Self-pay 2023 Private Health Insurance [id number] 2023 Private Health Insurance [id number] 2022 Medicaid HMO [employer] [id number] 1997 Unknown [id number] 2.16.840.1.148799.3.579.2. 593 1997 Unknown [id number] 2.16.840.1.485368.3.579.2. 593 1997 Unknown [id number] 2.16.840.1.282251.3.579.2. 593 1997 Unknown [id number] 2.16.840.1.726451.3.579.2. 593 1997 Unknown [id number] 2.16.840.1.660052.3.579.2. 593 1997 Unknown [id number] 2.16.840.1.085879.3.579.2. 593 1997 Unknown [id number] 2.16.840.1.463979.3.579.2. 593 1997 Unknown [id number] 2.16.840.1.155301.3.579.2. 593 1997 Unknown [id number] 2.16.840.1.780741.3.579.2. 593 1997 Unknown [id number] 2.16.840.1.103461.3.579.2. 593 1997 Unknown [id number] 2.16.840.1.051114.3.579.2. 593 1997 Unknown [id number] 2.16.840.1.896285.3.579.2. 593 1997 Unknown [id number] 2.16.840.1.974672.3.579.2. 593 1997 Unknown [id number] 2.16.840.1.165543.3.579.2. 593 1997 Unknown [id number] 2.16.840.1.596585.3.579.2. 593 1997 Unknown [id number] 2.16.840.1.336373.3.579.2. 593 1997 Unknown [id number] 2.16.840.1.325611.3.579.2. 593 1997 Unknown [id number] 2.16.840.1.829244.3.579.2. 593 1997 Unknown [id number] 2.16.840.1.934487.3.579.2. 1285 1997 Unknown [id number] 2.16.840.1.700842.3.579.2. 1258 1997 Unknown [id number] 2.16.840.1.382442.3.579.2. 1258 1997 Unknown [id number] 2.16.840.1.177750.3.579.2. 1258 1997 Unknown [id number] 2.16.840.1.132641.3.579.2. 1258 1997 Unknown [id number] 2.16.840.1.039973.3.579.2. 1258 1997 Unknown [id number] 2.16.840.1.928588.3.579.2. 1258 1997 Unknown [id number] 2.16.840.1.051738.3.579.2. 1258 1997 Unknown [id number] 2.16.840.1.953988.3.579.2. 1258 1997 Unknown [id number] 2.16.840.1.407742.3.579.2. 1258 1997 Unknown [id number] 2.16.840.1.104817.3.579.2. 1258 1997 Unknown [id number] 2.16.840.1.506407.3.579.2. 1258 1997 Unknown [id number] 2.16.840.1.159851.3.579.2. 1258 1997 Unknown [id number] 2.16.840.1.736994.3.579.2. 1258 1997 Unknown [id number] 2.16.840.1.568318.3.579.2. 6 1997 Unknown [id number] 2.16.840.1.132052.3.579.2. 1286 1997 Unknown [id number] 2.16.840.1.344985.3.579.2. 1286 1997 Unknown [id number] 2.16.840.1.061065.3.579.2. 1286 1997 Unknown [id number] 2.16.840.1.151275.3.579.2. 1286 1959 Unknown [id number] 1959 Unknown [id number] 1959 Unknown [id number] Unknown [id number] 2.16.840.1.799948.3.579.2. 531 Social History Date Type Detail Facility Start: 01-13-2024 [facility] Start: 01-31-2024 Tobacco smoking stat [facility] Never smoked tobacco (finding) [facility] Start: 1995 Sex Assigned At Female F [facility] Tobacco smoking stat [facility] Tobacco smoking consumption unknown [facility] Healthcare Start: 1995 Sex assigned at Not on file N [facility] Start: 08-23-2020 End: 06-21-2024 Gender identity Not on file [facility] Start: 10-07-2020 End: 07-14-2024 Tobacco smoking status NHIS Ex-smoker [facility] History of tobacco use Current smoker [facility] Start: 10-07-2020 End: 07-14-2024 Tobacco use and exposure Smokeless tobacco non-user [facility] Start: 06-21-2024 End: 09-08-2024 Alcoholic beverage intake Ex-drinker (finding) [facility] Start: 08-23-2020 End: 06-21-2024 History of Social function [facility] Childcare Unknown [facility] Start: 10-07-2020 End: 07-14-2024 Tobacco Comment quit 3 years ago [facility] Start: 08-23-2020 Sex Female (finding) [facility] History of tobacco use Cigarette Smoker P [facility] Medical Equipment Procedure Code Equipment Code Equipment Original Text Equipment Identifier Dates [id number] Start: 07-17-2024 End: 08-16-2024 1 each by In Vit ro route Daily Use to check FSBS four times daily [id number] Start: 07-17-2024 End: 08-16-2024 Inject 1 each un jany the skin Daily [id number] Start: 08-23-2024 End: 09-22-2024 Inject 1 each un jany the skin See administration instructions Use four times daily with insulin pen. [id number] Start: 08-22-2024 End: 08-23-2024 Clinical Notes 02-05-2021 to 09-08-2024 Telephone Encounter - Terra Lundberg MD - 09/08/2024 4:48 PM ESTTelephone Encounter - Terra Lundberg MD - 09/08/2024 4:48 PM Sue Dickey MD - 09/08/2024 10:30 AM EST Note Date & Type Note Facility 09-08-2024 Miscellaneous Notes The patient was evaluated by Cardiology outpatient Suspicion that elevated ventricular systolic pressure likely due to BMI greater than 35. No increased monitoring anticipated from a cardiology standpoint I called the patient and I reviewed this with her. However due to her multiple comorbidities and due to the physiological changes of that can occur following delivery I discussed with the patient that I will still recommend delivery at a tertiary care center. The patient is in agreement with the plan. She is scheduled for a section at [facility] 09/14/[address] Bueno was notified who will be the attending bd special education teacher We will also reach out to the patient primary OB for an update TERRA LUNDBERG MD documented in this encounter [facility] staff 09-08-2024 Telephone encounter Note The patient was evaluated by Cardiology outpatient Suspicion that elevated ventricular systolic pressure likely due to BMI greater than 35. No increased monitoring anticipated from a cardiology standpoint I called the patient and I reviewed this with her. However due to her multiple comorbidities and due to the physiological changes of that can occur following delivery I discussed with the patient that I will still recommend delivery at a tertiary care center. The patient is in agreement with the plan. She is scheduled for a section at [facility] 09/14/[address] Bueno was notified who will be the attending bd special education teacher We will also reach out to the patient primary OB for an update TERRA LUNDBERG MD [facility] 09-08-2024 History of Present illness Narrative Samantha Benjamin Date of visit: 09/08/2024 Date of : 1995 Age: 29 y.o. Patient Active Problem List Diagnosis Chronic hypertension affecting Gestational diabetes mellitus (GDM), antepartum cardiac outflow tracts on ultrasound Separation of chorion and amnion membranes, antepartum Polyhydramnios affecting arrhythmia affecting , antepartum Gestational diabetes mellitus (GDM) in third trimester Tachycardia No Known Allergies Current Outpatient Medications Medication Sig Dispense Refill ALCOHOL PREP PADS pads, medicated Apply 1 Pad topically in the morning. aspirin 81 mg Take 1 tablet (81 mg total) by mouth in the morning. citalopram (CeleXA) 20 mg tablet Take 1 tablet (20 mg total) by mouth in the morning. 30 tablet 0 labetaloL (NORMODYNE) 100 mg tablet Take 3 tablets (300 mg total) by mouth in the morning and 3 tablets (300 mg total) at noon and 3 tablets (300 mg total) in the evening. LANTUS U-100 INSULIN 100 unit/mL injection 0.1 mL (10 Units total) nightly. miscellaneous medical supply misc by miscellaneous route once. Pen for Gestational Diabetes, test strips omeprazole (PriLOSEC) 20 mg capsule Take 1 capsule (20 mg total) by mouth in the morning. 90 capsule 3 ONETOUCH ULTRA TEST strip TEST WITH 1 STRIP IN MORNING BEFORE BREAKFAST,1 HOUR AFTER EACH MEAL FOR A TOTAL OF 4 TIMES A DAY ONETOUCH ULTRA2 METER [facility] USE TO CHECK FASTING BLOOD SUGAR BEFORE BREAKFAST & 1 HR AFTER EACH MEAL FOR TOTAL OF 4 TIMES DAILY No current facility-administered medications for this visit. 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 Images not available. 1. Normal left ventricular systolic function with mild concentric hypertrophy 2. Normal right ventricular size and systolic function with mildly elevated right-sided pressures estimated at 37 mm mmHg 3. Trivial pericardial effusion I had the opportunity to meet this with 5-year-old at home today. She is currently 35 weeks With this she has had hypertension and diabetes which have been well controlled She has shortness of breath consistent with her last . She has not had chest pain or palpitations. 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 Image quality is good. Procedures: Echo Doppler Color Flow echo echo Doppler study Situs and Relations: There is atrial situs solitus, atrioventricular concordance (D-looped ventricles) normally related great arteries (S,D,S). There is levocardia. The heart is located in the left chest. The cardiac apex points to the left. Systemic Veins: There are normal systemic venous connections, with the superior and inferior Vena Cava returning to the right atrium. Right Atrium: The right atrium has normal size and appearance. Tricuspid Valve: The tricuspid valve appears normal. Tricuspid valve annulus measures 11.4 mm; Z-score 0.06 Right Ventricle: The right ventricle has a normal size, wall thickness, and systolic function. Pulmonary valve and Artery The pulmonary valve, main and branch pulmonary arteries are normal. Pulmonary valve annulus measures 7.88 mm ; Z-score of 1.22. Left pulmonary artery measures 3.79 mm; Z-score -1.91. Right pulmonary artery measures 3.54 mm; Z-score 1.66 Septal Defects: There is a patent foramen ovale (PFO). There is right -to-left shunting across the patent foramen ovale. Suspect mid muscular small ventricular septal defect with bidirectional shunting. Interventricular septum measures 5.05 mm Pulmonary Veins: The right upper pulmonary vein drains normally to the left atrium. The left Lower pulmonary vein drains normally to the left atrium. Left Atrium: The left atrium has normal size and appearance. Mitral Valve: The Mitral valve appears normal. Mitral valve annulus measures 10.4 mm with a Z-score of 0.32 Left Ventricle: The left ventricle has normal has normal size, wall thickness, and systolic function. Aortic Valve: The left ventricular outflow tract and aortic valve are normal. Aortic valve measures 6.7 mm ; Z-score 1.84 Aorta and Ductus: Normal left sided aortic arch with no coarctation or dilation. There is a left-sided patent ductus arteriosus. There is pulmonary artery to descending aorta shunt across the patent ductus arteriosus. Rhythm: Normal sinus rhythm with an average heart rate of 134 beats per minute, normal mechanical DC interval of 114 milliseconds Other: No pericardial effusion Miscellaneous: Small septal defects, minor valve abnormalities and post-efra development of coarctation may not be evident during cardiac examination. Summary Normal intracardiac anatomy and function Normal atrioventricular coupling with normal heart rate ; no ectopy appreciated Normal cardiothoracic index PFO with right to left shunting PDA with right to left shunting Follow-up: Postnatally STRESS: No results found. HOLTER: No results found. CARDIAC CATH: No results found. CAROTID: No results found. CXR: No results found. Lipid Profile: 08/07/2024 WBCs 16.3 Hemoglobin 12.5 EK09/08/2024 Sinus tachycardia with poor anterior R-wave progression Past Medical History: Diagnosis Date Anxiety Chronic hypertension affecting Past Surgical History: Procedure Laterality Date SECTION 2020 Family History Problem Relation Age of Onset Arrhythmia Mother PVCs Lupus Mother Rheum arthritis Mother Sleep apnea Father Heart defect Brother murmur Heart defect Maternal Aunt murmur Heart defect Maternal Aunt Cardiomyopathy Diabetes Maternal Grandmother Sudden Maternal Grandfather 44 Heart attack Maternal Grandfather 44 Diabetes Paternal Grandfather Prostate cancer Paternal Grandfather Seizures Neg Hx Hypertension Neg Hx Asthma Neg Hx Stroke Neg Hx Clotting disorder Neg Hx High Cholesterol Neg Hx Thyroid Issues Neg Hx Social History Socioeconomic History Marital status: Single Spouse name: Not on file Number of children: Not on file Years of education: Not on file Highest education level: Not on file Occupational History Not on file Tobacco Use Smoking status: Former Types: Cigarettes Smokeless tobacco: Never Tobacco comments: quit 3 years ago Vaping Use Vaping status: Former Substance and Sexual Activity Alcohol use: Not Currently Drug use: Not Currently Sexual activity: Yes Partners: Male Other Topics Concern Caffeine Use No Social History Narrative Not on file Social Drivers of Health Financial Resource Strain: Not on file Food Insecurity: No Food Insecurity (09/05/2024) Hunger Screening Food Insecurity - Worry: Never True Food Insecurity - Inability: Never True Transportation Needs: Not on file Physical Activity: Not on file Stress: Not on file Social Connections: Not on file Interpersonal Safety: Not on file Housing Instability: Not on file Review of Systems Review of Systems Constitutional: Negative. HENT: Negative. Eyes: Negative. Cardiovascular: Negative. Vascular: Negative. Respiratory: Negative. Endocrine: Negative. Hematologic/Lymphatic: Bruises/bleeds easily. Skin: Negative. Musculoskeletal: Negative. Gastrointestinal: Negative. Genitourinary: Negative. Neurological: Negative. Psychiatric/Behavioral: Positive for depression. The patient is nervous/anxious. Allergic/Immunologic: Positive for environmental allergies. CARDIOVASCULAR: Please review HPI. Physical Examination General appearance: Alert, oriented and cooperative. In no acute distress. Pleasant Skin: Warm and dry to touch. Respiratory: Clear to auscultation bilaterally, no use of accessory muscles. Cardiovascular: RRR with normal S1 and S2 with no murmurs. Musculoskeletal: No peripheral edema. VITAL SIGNS: BP 118/84 Pulse 102 Ht 160.9 cm (5' 3.35 ) Wt 102.5 kg (226 lb) LMP 12/21/2023 SpO2 97% BMI 39.59 kg/m No orders of the defined types were placed in this encounter. Medications Discontinued During This Encounter Medication Reason ondansetron (ZOFRAN) 4 mg tablet vits62/FA/om3/dha/epa ( GUMMY ORAL) IMPRESSIONS/PLAN 1. Pulmonary hypertension ([facility]) - [facility] [place] - POCT EKG 2. 35 weeks gestation of - [facility] [place], [place] 3. Chronic hypertension affecting 4. Tachycardia 1. Hypertension associated with , currently well controlled 2. Diabetes associated with 3. Mild left ventricular hypertrophy on echocardiogram, likely associated with hypertension 4. Right ventricular systolic pressure estimated at 37 mmHg on echocardiogram, likely associated with BMI greater than 35 From a maternal cardiac standpoint there is no concern regarding delivery. She explains to me that she has a planned at 37 weeks because of her other issues. From a cardiology standpoint any delivery/timing acceptable. No increased monitoring is anticipated from a cardiology standpoint We discussed that over the jail she should have continued evaluation of her blood pressure, etcetera for risk factor modification. I would anticipate a repeat echo in 3-5 years to assess left ventricular thickness, etcetera TODAYS ORDERS Orders Placed This Encounter Procedures POCT EKG FOLLOW UP Return for 6-9 months. PCP: JACQUES MCCARTHY MD Referring Physician: Terra Lundberg MD [address] [facility], [address] [place] [id number] documented in this encounter [facility] 09-05-2024 Miscellaneous Notes I called Dr Dhillon and reviewed with him recommendations for delivery at a tertiary care center as well as the necessity for cardiology evaluation He agrees with the plan Due to advanced gestational age the patient is to continue with the care with him until we can arrange for transfer of care TERRA LUNDBERG MD documented in this encounter [facility] 09-05-2024 Telephone encounter Note I called Dr Dhillon and reviewed with him recommendations for delivery at a tertiary care center as well as the necessity for cardiology evaluation He agrees with the plan Due to advanced gestational age the patient is to continue with the care with him until we can arrange for transfer of care TERRA LUNDBERG MD [facility] 09-05-2024 Miscellaneous Notes Called patient with [...] consultation and evaluation of the pulmonary hypertension TERRA LUNDBERG MD documented in this encounter [facility] 09-05-2024 Telephone encounter Note Called patient [...] consultation and evaluation of the pulmonary hypertension TERRA LUNDBERG MD [facility] History of Present illness Narrative [address] [facility] [address] September 05, 2024 Patient: Samantha Benjamin Date of : 1995 Date of Visit: 09/05/[address] Fox; I had the pleasure of seeing Samantha Benjamin, at our pediatric cardiology clinic on 09/05/2024 .As you know, Ms Samantha Benjamin is a 29 y.o. female G 2 P1 001 referred to Cardiology (10/05/24) at 35 weeks and 5 days for observation of PAC's. Patient is scheduled for Section on 09/14/24 at [facility]. Ms Samantha Benjamin is accompanied by her Mother. Since Ms. Samantha Benjamin denies having any cardiac symptoms:No chest pain, no cyanosis, no palpitations, lightheadedness, dizziness, syncope, or near syncope. No shortness of breath, no wheezing. No seizures. No headaches. No abdominal pain/contractions, no recent viral illnesses, no abdominal bleeding, spotting or discharge. has been complicated by the followin. 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 PACs 7. Chorion amnion separation Review of Systems Constitution: Negative for diaphoresis, fever, weight gain or weight loss. Head: Negative for headaches or vision changes ENT: Negative for congestion or nosebleeds. Cardiovascular: Negative for chest pain, palpitations, racing heart, irregular heart beats or cyanosis. Positive for flu one week ago. Respiratory: Negative for coughing or increased work of breathing. Positive for shortness of breath with activity. Patient states she has shortness of breath with Labetalol. Musculoskeletal: Negative for joint pain or swelling. Gastrointestinal: Negative for diarrhea, nausea or vomiting. Renal: Negative for excessive urination or painful urination. Neurological: Negative for dizziness, light-headedness, syncope, seizures, numbness, or tingling. Psychiatric/Behavioral: Positive for stress, anxiety or depression. Negative for cramping, spotting or bleeding, or abnormal discharge. Positive for contractions 3 weeks ago. All other systems negative Current Outpatient Medications Medication Sig Dispense Refill ALCOHOL PREP PADS pads, medicated Apply 1 Pad topically in the morning. aspirin 81 mg Take 1 tablet (81 mg total) by mouth in the morning. citalopram (CeleXA) 20 mg tablet Take 1 tablet (20 mg total) by mouth in the morning. 30 tablet 0 labetaloL (NORMODYNE) 100 mg tablet Take 3 tablets (300 mg total) by mouth in the morning and 3 tablets (300 mg total) at noon and 3 tablets (300 mg total) in the evening. LANTUS U-100 INSULIN 100 unit/mL injection 0.1 mL (10 Units total) nightly. miscellaneous medical supply [facility] by miscellaneous route once. Pen for Gestational Diabetes, test strips omeprazole (PriLOSEC) 20 mg capsule Take 1 capsule (20 mg total) by mouth in the morning. 90 capsule 3 ONETOUCH ULTRA TEST strip TEST WITH 1 STRIP IN MORNING BEFORE BREAKFAST,1 HOUR AFTER EACH MEAL FOR A TOTAL OF 4 TIMES A DAY ONETOUCH ULTRA2 METER [facility] USE TO CHECK FASTING BLOOD SUGAR BEFORE BREAKFAST & 1 HR AFTER EACH MEAL FOR TOTAL OF 4 TIMES DAILY ondansetron (ZOFRAN) 4 mg tablet Take 4 mg by mouth every 8 (eight) hours as needed for nausea or vomiting. (Patient not taking: Reported on 07/14/2024) vits62/FA/om3/dha/epa ( GUMMY ORAL) Take by mouth. (Patient not taking: Reported on 09/05/2024) No current facility-administered medications for this visit. No Known Allergies Past Medical History: Diagnosis Date Anxiety Chronic hypertension affecting Past Surgical History: Procedure Laterality Date SECTION 2020 Family History Problem Relation Age of Onset Arrhythmia Mother PVCs Lupus Mother Rheum arthritis Mother Sleep apnea Father Heart defect Brother murmur Heart defect Maternal Aunt murmur Heart defect Maternal Aunt Cardiomyopathy Diabetes Maternal Grandmother Sudden Maternal Grandfather 44 Heart attack Maternal Grandfather 44 Diabetes Paternal Grandfather Prostate cancer Paternal Grandfather Seizures Neg Hx Hypertension Neg Hx Asthma Neg Hx Stroke Neg Hx Clotting disorder Neg Hx High Cholesterol Neg Hx Thyroid Issues Neg Hx There is no family history of congenital heart disease, SIDS, sudden cardiac , or congenital anomalies or arrhythmias or hypercoaguble state ,no congenital deafness.No family history of anyone with sudden, unexplained, and unexpected before the age of 50.Parent denies anyone in the family who has been diagnosed with a sudden -predisposing heart condition such as HCM, LQTS, Brugada syndrome. Social History: Social History Socioeconomic History Marital status: Single Spouse name: Not on file Number of children: Not on file Years of education: Not on file Highest education level: Not on file Occupational History Not on file Tobacco Use Smoking status: Former Types: Cigarettes Smokeless tobacco: Never Tobacco comments: quit 3 years ago Vaping Use Vaping status: Former Substance and Sexual Activity Alcohol use: Not Currently Drug use: Not Currently Sexual activity: Yes Partners: Male Other Topics Concern Not on file Social History Narrative Not on file Social Drivers of Health Financial Resource Strain: Not on file Food Insecurity: No Food Insecurity (09/05/2024) Hunger Screening Food Insecurity - Worry: Never True Food Insecurity - Inability: Never True Transportation Needs: Not on file Physical Activity: Not on file Stress: Not on file Social Connections: Not on file Interpersonal Safety: Not on file Housing Instability: Not on file Living Conditions Lives with parents Secondhand Smoke Exposure? No Vitals: 09/05/24 1113 BP: 141/82 BP Site: Right Arm BP Postition: Sitting Pulse: 102 SpO2: 99% Weight: 103.1 kg (227 lb 6.4 oz) Height: 160.9 cm (5' 3.35 ) On examination I found a well appearing female in no respiratory distress.she was alert and oriented. Mucous membranes were pink and moist.she was anicteric and acyanotic echcoardiogram of a female fetus who mom has named Mya demonstrated normal intracardiac anatomy ; interventricular septum with just above the upper limit of normal ( 5.05 mm). There is possibly as tiny mid muscular ventricular septal defect but I could only appreciated it intermittently. There was normal atrioventricular coupling with normal heart rate with normal mechanical DC interval. I did not appreciate any ectopy.The cardiothoracic was normal index. There was normal right left shunting the patent foremen ovale as well as a patent ductus arteriosus. Both the left-sided ductal as well as the left sided aortic arch were widely patent with laminar flow. Inferior vena cava, superior vena cava, umbilical artery and umbilical vein as well as ductus venosus Doppler flow patterns were all normal. We visualized 2 normal unobstructed pulmonary veins entering into the left atrium. Of note small septal defects, minor valve abnormalities and post efra development of coarctation may not be evident during cardiac examination. My impression is that Ms Samantha Benjamin is a 29 y.o. female who is currently gestational age 35 weeks and 5 days with a female fetus who today demonstrated normal intracardiac anatomy with normal myocardial function. I do not appreciate any ectopy. I discussed that if in the event there is a ventricular septal defect , it is hemodynamically insignificant. I discussed That this ventricular septal defect will decrease in size as progresses and may actually spontaneously close before . If it is present after the natural history is the same postnatally, itwill either get smaller stayed the same in size or spontaneously close. I emphasize that she will not develop heart failure because of the defect and it will not affect her global/cognitive development and will not cause any symptoms: Cardiac or otherwise. He does not require SBE prophylaxis for this ventricular septal defect. I discussed with Ms. Samantha Benjamin and her mother the findings and all fetuses must have have to remain alive in utero: Foremen ovale and a ductus arteriosus. I discussed foremen ovale patent (patent foremen ovale) is found in 30% of the normal population is not clinically significant especially if there is no family history of hypercoagulable state. Therefore in the absence of any hypercoagulable state or right to left shunting this patent foramen ovale does not need to be closed. With respect to the ductus arteriosus if it remains patent (patent ductus arteriosus) the management will depend on the size: If it is large it will cause left heart failure and will require either surgical closure or cardiac catheterization depending on her age and size. If it remains present and is small then it can be closed electively by cardiac catheterization when She gets older. I however emphasized that the majority ductus arteriosus close within 1st weeks of life. I also explained that we do monitor all PDAs even if they are small and are not causing any congestive heart failure to ensure that if and when it closes, coarctation of the aorta does not develop. Based on today's echocardiogram I do not see any contraindication for delivery to occur in an outside facility. Since small septal defects, minor valve abnormalities and post development of coarctation may not be evident during cardiac examination I do recommend post echocardiogram which does not neccessarily need to be done while admitted to hospital but can be done in office at approximately 1 week of life. If there is a cardiac concern before discharge it is reasonable to do one at that time. I do not recommend an echocardiogram in the first 24 hours of life as all neonates require time to transition physiologically in the first 24 hours of life. Certainly if there needs to be a echocardiogram it can be done in the [facility] since I am responsible for reading all echocardiograms and pediatric cardiovascular studies. I discussed all the above in great detail with Ms. Benjamin and her mother. All questions and concerns were addressed. Time spent with Ms. Samantha Benjamin and her monther was 110 minutes, 50% or more was face to face interaction coordinating care and discussing pathophysiology and management.This time included time spent preparing for the visit, obtaining and reviewing any outside history/data, taking a history, performing an exam/evaluation, counseling and educating the patient/family about the diagnosis and plan, performing medical decision making, referring to and communicating with other health care referrals, independently interpreting results and documenting in the EMR, and coordinating care Thank you so much for allowing me to participate in Mr Benjamin's care .Please feel free to contact me if you have any queries or concerns. Sincerely, Sanam Cesar M.D. Trailer Technician [facility] This note is dictated with the use of M*Modal.Please note that this dictation was completed with computer voice recognition software. Quite often unanticipated grammatical, syntax, homophones, and other interpretive errors are inadvertently transcribed by the computer software. Please disregard these errors. Please excuse any errors that have escaped final proofreading. documented in this encounter [employer] 08-29-2024 History of Present illness Narrative Reason [...] nursing note reviewed. Exam conducted with a survey director present. Vitals: Estimated body mass index [...] by Judie Gutierrez LPN on behalf of: Zhen Dhillon DO documented in this encounter [facility] 08-22-2024 History of Present illness Narrative Reason for Appointment: Patient ID: Samantha Benjamin is a 29 y.o. female who presents for Routine Visit Patient presents today for Return OB appointment. MEDICATIONS Current Outpatient Medications Medication Instructions Alcohol Swabs (Alcohol Prep Pad) 70 % pads 1 Pad, Topical, Daily, Use four times daily to check FSBS. Blood Glucose Monitoring Suppl (Luv Rink Glucometer) w/Device kit 1 kit, Does not [...] nursing note reviewed. Exam conducted with a survey director present. Vitals: Estimated body mass index [...] times a day. Pt has appt at [facility] on 08/30/24. Reviewed glucose log with pt - initial prescription of Lantus sent in for pt. Pt to stay on labetalol 300 TID. Orders Placed This Encounter Procedures POCT urinalysis dipstick manually resulted Follow Up: Patient is to return to office in 2 week for routine OB appointment. Documented by Judie Gutierrez LPN on behalf of: Zhen Dhillon DO documented in this encounter [facility] 08-16-2024 History of Present illness Narrative Called patient 08/15/24 and 08/16/24 to inform patient of date and time for the Pediatric Cardiology Consultation. L/M for patient to return my call. documented in this encounter [facility] 08-15-2024 History of Present illness Narrative Video Visit via Real-time Synchronous Audiovisual Provider Location: [facility] MATERNAL- MEDICINE AT [address] [facility] [id number] Patient Location: Other [place] Office Patient Location Button Reclaimer: None Video Visit Consent Statement: I discussed [...] that there are some limitations compared to [id number] evaluations. We elected to proceed. REASON FOR [...] outflow tracts on ultrasound BMI 40.0-44.9, adult ([facility]) Past Medical History: Diagnosis Date [...] and the other consultants, we search on YES.TAP and all the available care everywhere epic I did review all the imaging studies of the patient available on EMR, ordered by the primary care physician and the other oracle webcenter consultant HABITS: Patient activity no restrictions, diet [...] more likely to fail compared to insulin. roasterman data on children whose mothers took oral [...] Chronic hypertension affecting 4. BMI 40.0-44.9, adult ([facility]) Denies signs and symptoms of [...] patient is in complete care of her marble setter. Patient does have ultrasound appointment scheduled with us. Thank you for allowing me to participate in Samantha Benjamin . If there any questions please do not hesitate to contact us. Sincerely, Terra Lundberg MD, FACOG (she/hers) Maternal- Medicine [address] [place] [address] documented in this encounter [facility] 08-14-2024 History of Present illness Narrative Reason for Appointment: Patient ID: Samantha Benjamin is a 29 y.o. female who presents for No chief complaint on file. Patient presents today for Return OB appointment. MEDICATIONS Current Outpatient Medications Medication Instructions Alcohol Swabs (Alcohol Prep Pad) 70 % pads 1 Pad, Topical, Daily, Use four times daily to check FSBS. Blood Glucose Monitoring Suppl (Luv Rink Glucometer) w/Device kit 1 kit, Does not [...] nursing note reviewed. Exam conducted with a survey director present. Vitals: Estimated body mass index [...] by Angela Butt LPN on behalf of: Zhen Dhillon DO documented in this encounter [facility] 07-31-2024 History of Present illness Narrative Reason for Appointment: Patient ID: Samantha Benjamin is a 29 y.o. female who presents for Routine Visit Patient presents today for Return OB appointment. MEDICATIONS Current Outpatient Medications Medication Instructions Alcohol Swabs (Alcohol Prep Pad) 70 % pads 1 Pad, Topical, Daily, Use four times daily to check FSBS. Blood Glucose Monitoring Suppl (D-Dnevnik Glucometer) w/Device kit 1 kit, Does not [...] week for routine OB appointment. Documented by aTshia Moore MA on behalf of: LUIS F Tarango documented in this encounter [facility] 07-17-2024 History of Present illness Narrative Reason [...] by Angela Butt LPN on behalf of: Zhen Dhillon DO documented in this encounter [facility] 07-14-2024 History of Present illness Narrative Headache/epigastric pain/blurry vision/swelling? no Cramping/contractions? no Abnormal vaginal discharge? no Spotting/vaginal bleeding? no Loss or gush of fluid like your water may have broken? no Do you have cats at home? no Do you change the litter box (reason: risk of toxoplasmosis)? Genetic testing done this here or other office? yes Have you been seen here at [facility] in a previous ? no Recent ER visits or hospitalizations? no Bring blood sugar log or meter with you today? (Please bring them with you for every visit at [facility]) no Flu vaccine (Jun-September)? no Any concerns [...] outflow tracts on ultrasound BMI 40.0-44.9, adult ([facility]) Past Medical History: Diagnosis Date [...] evening., Disp: , Rfl: miscellaneous medical supply [facility] by miscellaneous route once., Disp: , Rfl: [...] and the other consultants, we search on YES.TAP and all the available care everywhere [facility] I did review all the imaging studies of the patient available on EMR, ordered by the primary care physician and the other oracle webcenter consultant HABITS: Patient activity no restrictions, diet [...] her 3 hour glucose tolerance test, refer [facility] for diabetes management.. 8. Patient came more than 1 hour late for her ultrasound appointment and therefore has been rescheduled at our [facility] site. DISPOSITION: At this point the patient is in complete care of her marble setter. Patient does have ultrasound appointment scheduled with us. Thank you for allowing me to participate in Samantha Benjamin . If there any questions please do not hesitate to contact us. Sincerely, GREGG FOX MD documented in this encounter [facility] 06-15-2024 History of Present illness Narrative [...] LUIS F Tarango documented in this encounter [facility] 05-18-2024 History of Present illness Narrative Reason [...] nursing note reviewed. Exam conducted with a survey director present. Vitals: Estimated body mass index [...] of MSAFP orders to have drawn at [facility] in [place]. Documented by Angela Butt LPN on behalf of: Zhen Dhillon DO documented in this encounter [facility] 04-20-2024 History of Present illness Narrative Reason [...] LUIS F Tarango documented in this encounter [facility] 03-22-2024 History of Present illness Narrative Reason [...] nursing note reviewed. Exam conducted with a survey director present. Vitals: Estimated body mass index [...] and [facility] Patient has been consulted regarding any further do's and don'ts of . Patient voiced understanding and all questions and concerns were answered. Scheduled 09/14/24. No orders of the defined types were placed in this encounter. Follow Up: Patient is to return in 4 weeks for routine OB appointment. Documented by Judie Gutierrez LPN on behalf of: Zhen Dhillon DO documented in this encounter [facility] 02-05-2021 Note OPERATIVE NOTE OPERATION DATE: 02-06-21 ANESTHETIC:Spinal with Duramorph. PARATRANSIT DRIVER:ELVIA Prajapati PREOPERATIVE DIAGNOSIS: 1. Intrauterine at 37 [...] the Recovery Room in stable condition. [facility] Signed and Approved by: DR ZHEN DHILLON . 02/11/2021 11:15:00 [facility] [...] any abdominal pain unrelieved with narcotics. [facility] Signed and Approved by: DR ZHEN DHILLON . 02/25/2021 23:13:00 [facility] Evaluation note No assessment inform ation available [facility] Work Phone: Evaluation note Diagnosis [...] Chronic hypertension affecting [facility] Diagnosis Third trimester state, incidental 28 weeks gestation of Gestational diabetes mellitus (GDM) in third trimester, gestational diabetes method of control unspecified Hypertension, unspecified type (CMS/[facility]) Gestational diabetes mellitus (GDM), antepartum, gestational [...] unspecified Chronic hypertension affecting BMI 40.0-44.9, adult (CMS-HCC) arrhythmia affecting , antepartum Abnormality in heart rate/rhythm, antepartum condition or complication Polyhydramnios affecting Separation of chorion and amnion membranes, antepartum documented [facility] Diagnosis Abnormal ultrasonic finding on screening of mother, antepartum- Primary [facility] Diagnosis Third trimester state, incidental 34 weeks gestation of Insulin controlled gestational diabetes mellitus (GDM) during , antepartum [facility] Diagnosis 34 weeks gestation of Third trimester state, incidental [facility]* Diagnosis Pulmonary hypertension (CMS-HCC)- Primary Other chronic pulmonary heart diseases 35 weeks gestation of [facility] Diagnosis Pulmonary hypertension (CMS-HCC)- Primary Other chronic pulmonary heart diseases 35 weeks gestation of Chronic hypertension affecting Tachycardia Unspecified tachycardia [facility] this [facility]* Diagnosis arrhythmia affecting , antepartum- Primary Abnormality in heart rate/rhythm, antepartum condition or complication Abnormal ultrasonic finding on screening of mother, antepartum Anomaly of heart of fetus affecting , antepartum, single or unspecified fetus documented in this encounter [facility] filedocumented in this encounter [facility] System[facility]ructionsNot on filedocumented in this encounter [facility]* Attachments The following attachments cannot be sent through Care Everywhere. * Preeclampsia (Chilean) * labor (Chilean) [facility] System[facility]ructionsNot on file [facility] in [facility] System[facility]ructionsNot on file documented in [facility] SystemInstructionsNot on file [facility] in [facility] SystemInstructionsNot on file [facility] in [facility] System[facility]ructionsNot on file documented in [facility] System[facility]ructionsNot on file [facility] Purpose Family History [...] and content) DATE CREATED AUTHOR 10/15/2021 [facility] DATE CREATED AUTHOR AUTHOR'S ORGANIZ ATION 02/19/2024 [facility] DATE CREATED AUTHOR AUTHOR'S ORGANIZ ATION 07/17/2024 [facility] DATE CREATED AUTHOR AUTHOR'S ORGANIZ ATION 08/31/2024 [facility] EPIC DATE CREATED AUTHOR AUTHOR'S ORGANIZ ATION 09/07/2024 [facility] DATE CREATED AUTHOR AUTHOR'S ORGANIZ ATION 09/10/2024 [facility] Care Teams (unrecognized sec tion and content) Team Status: Active Member Role Status Dates Jacques Mccarthy MD Primary Care Provider Active Team Status: Inactive Member Role Status Dates Jacques Mccarthy MD Primary Care Provider Active Start: January 31, 2024 End: January 31, 2024 Kwesi Dudley DO Emergency Provider Active St art: January 31, 2024 End: January 31, 2024 Installation Engineer Relationship Specialty Start Date End Date Jacques Mccarthy MD [address] [place] [address] PCP - General Family Medicine 02/08/24 Installation Engineer Relationship Specialty Start Date End Date Jacques Mccarthy MD [address] [facility] [place] [address] PCP - General Family Medicine 02/08/24 Installation Engineer Relationship Specialty Start Date End Date Jacques Mccarthy MD PCP - General Family Medicine 10/07/20 Installation Engineer Relationship Specialty Start Date End Date Jacques Mccarthy MD [address] [facility] [place] [address] PCP - General Family Medicine 02/08/24 Installation Engineer Relationship Specialty Start Date End Date Jacques Mccarthy MD [address] [facility] [place] [address] PCP - General Family Medicine 02/08/24 Installation Engineer Relationship Specialty Start Date End Date Jacques Mccarthy MD [address] [facility] [place] [address] PCP - General Family Medicine 02/08/24 Installation Engineer Relationship Specialty Start Date End Date Jacques Mccarthy MD PCP - General Family Medicine 10/07/20 Installation Engineer Relationship Specialty Start Date End Date Jacques Mccarthy MD [address] [facility] [place] [address] PCP - General Family Medicine 02/08/24 Installation Engineer Relationship Specialty Start Date End Date Jacques Mccarthy MD [address] [facility] [place] [address] PCP - General Family Medicine 02/08/24 Installation Engineer Relationship Specialty Start Date End Date Jacques Mccarthy MD [address] [facility] [place] [address] PCP - General Family Medicine 02/08/24 Installation Engineer Relationship Specialty Start Date End Date Jacques Mccarthy MD [address] [facility] [place] [address] PCP - General Family Medicine 02/08/24 Installation Engineer Relationship Specialty Start Date End Date Jacques Mccarthy MD [address] [facility] [place] [address] PCP - General Family Medicine 02/08/24 Installation Engineer Relationship Specialty Start Date End Date Jacques Mccarthy MD [address] [facility] [place] [address] PCP - General Family Medicine 02/08/24 Installation Engineer Relationship Specialty Start Date End Date Jacques Mccarthy MD [address] [facility] [place] [address] PCP - General Family Medicine 02/08/24 Installation Engineer Relationship Specialty Start Date End Date Jacques Mccarthy MD [address] [facility] [place] [address] PCP - General Family Medicine 02/08/24 Installation Engineer Relationship Specialty Start Date End Date Jacques Mccarthy MD PCP - General Family Medicine 10/07/20 Installation Engineer Relationship Specialty Start Date End Date Jacques Mccarthy MD PCP - General Family Medicine 10/07/20 Installation Engineer Relationship Specialty Start Date End Date Jacques Mccarthy MD PCP - General Family Medicine 10/07/20 Installation Engineer Relationship Specialty Start Date End Date Jacques Mccarthy MD [address] [place] [address] PCP - General Family Medicine 02/08/24 Installation Engineer Relationship Specialty Start Date End Date Jacques Mccarthy MD [address] [place] [address] PCP - General Family Medicine 02/08/24 Installation Engineer Relationship Specialty Start Date End Date Jacques Mccarthy MD [address] [place] [address] PCP - General Family Medicine 02/08/24 Installation Engineer Relationship Specialty Start Date End Date Jacques Mccarthy MD PCP - General Family Medicine 10/07/20 Installation Engineer Relationship Specialty Start Date End Date Jacques Mccarthy MD PCP - General Family Medicine 10/07/20 Installation Engineer Relationship Specialty Start Date End Date Jacques Mccarthy MD PCP - General Family Medicine 10/07/20 Installation Engineer Relationship Specialty Start Date End Date Jacques Mccarthy MD [address] [place] [address] PCP - General Family Medicine 02/08/24 Installation Engineer Relationship Specialty Start Date End Date Jacques Mccarthy MD PCP - General Family Medicine 10/07/20 Installation Engineer Relationship Specialty Start Date End Date Jacques Mccarthy MD PCP - General Family Medicine 10/07/20 Installation Engineer Relationship Specialty Start Date End Date Jacques [...] Reason Comments elevated blood glucose levels Hypertension 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 36 WKS G ESTATION ECHO @ [place] SCHED W PT Specialty Diagnoses / Procedures Referred By Eliel t Referred To Contact Cardiology Diagnoses Pulmonary hypertension ([facility] 35 weeks gestation of Terra Lundberg MD [address], [address] [place] [id number] Phone: tel: fax: Antonio Harden MD [address] [place] [address] Phone: tel: fax: Referral ID Status Reason Start Date Expiration Date Visits Requested Visits Authorized [id number] Pending Review Specialty Services Required 09/05/2024 09/05/2025 1 1 Reason Comments Observation of PACs Specialty Diagnoses / Procedures Referred By Contac t Referred To Contact Pediatric Cardiology Diagnoses Abnormal ultrasonic finding on screening of mother, antepartum Terra Lundberg MD [address], [address] [place] [id number] Phone: tel: fax: Sanam Cesar MD [address] [place] [id number] Phone: tel: fax: Referral ID Status Reason Start Date Expiration Date Visits Requested Visits Authorized [id number] Pending Review Specialty Services Required 08/15/2024 08/15/2025 1 1 FOR RECORDS PERTAINING TO PATIENTS WHO ARE [...] BE BASED ON THE PRIMARY CLINICAL RECORDS. [facility] [employer] provides no warranty or guarantee of the accuracy or completeness of information in this document.
[2024-09-11 18:41] VITALS: BP 141/71; PULSE 92
== END 2024-09-11 18:45 | disposition home or self-care (01) ==
LOC: FBCO 01:28 → FBC 18:13
PROVIDERS: PCP Family Medicine; Visit Provider Obstetrics & Gynecology
DX: O24.419 Gestational diabetes mellitus in pregnancy, unspecified control (principal); Z3A.36 36 weeks gestation of pregnancy
CPT/HCPCS: 59025

== ENCOUNTER 2025-05-18 11:02 | Outpatient (OUT) | payer MEDICAID, SELFPAY ==
--- OUTSIDE RECORDS SUMMARY | 2025-05-18 11:10 | XMS_ITS | CCD ---
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 Role Phone JACQUIE, DR FAJARDO Consulting [...] MIGUEL ÁNGEL, DR HANNA Primary Care Unavailable FRUITDALE, DR IRINEO [facility] Consulting Unavailable JACQUIE, DR [...] [employer] Consulting Unavailable MIGUEL ÁNGEL, DR HANNA [facility] Care Unavailable JACQUIE, DR FAJARDO Attending Unavailable JACQUIE, DR FAJARDO Consulting Unavailable JACQUIE, DR FAJARDO Attending Unavailable HOY, DR HANNA [facility] Care Unavailable JACQUIE, DR FAJARDO Admitting Unavailable MD Jacques Mccarthy Primary Care Provider [phone] DO Kwesi Dudley Emergency Provider Kwesi Dudley Admitting Unavailable Kwesi Dudley Attending Unavailable Jacques Mccarthy Primary Care Unavailable Jacques Mccarthy MD Primary Care Provider [phone] Jacques Mccarthy MD Primary Care Provider [phone] ZHEN DHILLON Referring Unavailable JACQUES MCCARTHY Primary Care Unavailable GERARDO DICKEY Attending Unavailable TERRA LUNDBERG Referring Unavailable JACQUES MCCARTHY Primary Care Unavailable GREGG FOX Attending Unavailable ZHEN DHILLON Referring Unavailable JACQUES MCCARTHY Primary Care Unavailable HOY, JACQUES M Referring Unavailable HOY, JACQUES M Primary Care Unavailable TERRA LUNDBERG Attending Unavailable JACQUIE, ZHEN R Referring Unavailable HOY, JACQUES M Primary Care Unavailable SANAM CESAR F Attending Unavaila ble HOY, JACQUES M Referring Unavailable HOY, JACQUES M Primary Care Unavailable CESAR, SANAM K F Referring Unavaila ble HOY, JACQUES M Primary Care Unavailable IRINEO TORRES Admitting Unavailable BRIAN, IRINEO Jesus Attending Unavailable HOY, JACQUES M Primary Care Unavailable HOY, JACQUES M Primary Care Unavailable JACQUIE, ZHEN Attending Unavailable JACQUIE, ZHEN Attending Unavailable NIRMALA, MADISYN Attending Unavailable JACQUIE, ZHEN Attending Unavailable JACQUIE, ZHEN Attending Unavailable NIRMALA, MADISYN Attending Unavailable JACQUIE, ZHEN Attending Unavailable NIRMALA, MADISYN Attending Unavailable JACQUIE, ZHEN Attending Unavailable NIRMALA, MADISYN Attending Unavailable JACQUIE, ZHEN Attending Unavailable NIRMALA, MADISYN Attending Unavailable JACQUIE, ZHEN Attending Unavailable Jacques Mccarthy MD Primary Care Provider [phone] Fely Nieves DO Primary Care Provider [phone] Fely Nieves DO Attending Provider Medications Current Medications Medication Drug Class(es) Dates Sig (Normalized) Sig (Original) acetaminophen 500 mg oral tablet (1 source) Start: 09-16-2024 take 2 tablets by mouth every eight hours acetaminophen (TYLENOL EXTRA STRENGTH) 500 mg tablet Take 2 tablets (1,000 mg total) by mouth every 8 (eight) hours. 30 tablet 09/16/2024 Active docusate sodium 100 mg oral capsule (1 source) Start: 09-16-2024 take 1 capsule by mouth in the morning, then take 1 capsule by mouth at bedtime docusate sodium (COLACE) 100 mg capsule Take 1 capsule (100 mg total) by mouth in the morning and 1 capsule (100 mg total) before bedtime. 10 capsule 09/16/2024 Active ibuprofen 800 mg oral tablet (1 source) Nonsteroidal Anti-inflammatory Drug Start: 09-16-2024 take 1 tablet by mouth every eight hours ibuprofen (MOTRIN) 800 mg tablet Take 1 tablet (800 mg total) by mouth every 8 (eight) hours. 30 tablet 09/16/2024 Active miscellaneous medical supply misc (5 sources) miscellaneous medical supply misc by miscellaneous route once. Active norethindrone 0.35 mg oral tablet (3 sources) Start: 09-16-2024 End: 10-24-2025 take 1 tablet by mouth once daily norethindrone (Micronor) 0.35 MG tablet Indications: 6 weeks follow-up , S/P section Take 1 tablet (0.35 mg) by mouth Daily 28 tablet 11 10/24/2024 10/24/2025 Active omeprazole 20 mg delayed release oral [...] 06/15/2024 06/15/2025 Active ONETOUCH ULTRA2 METER misc (8 sources) Start: 07-31-2024 ONETOUCH ULTRA 2 METER misc USE TO CHECK FASTING BLOOD SUGAR BEFORE BREAKFAST & 1 HR AFTER EACH MEAL FOR TOTAL OF 4 TIMES DAILY 07/31/2024 Active Completed/Discontinued Medications Medication Drug Class(es) Dates Sig (Normalized) Sig (Original) aspirin 81 mg delayed release oral tablet (19 sources) Platelet Aggregation Inhibitor, Nonsteroidal Anti-inflammatory Drug End: 10-24-2024 take 1 tablet by mouth once daily aspirin 81 MG EC tablet Take 81 mg by mouth Daily 10/24/2024 Discontinued Blood Glucose Monitoring Suppl (D-Care Glucometer) w/Device kit (20 sources) Start: 07-17-2024 End: 10-24-2024 Blood Glucose Monitoring Suppl (D-Care Glucometer) w/Device [...] total of 4times daily. 1 kit 07/17/2024 10/24/2024 Discontinued Start: 07-17-2024 End: 07-17-[address] Gl[address] Monitoring Sup [address] (D-Care Glucometer) w/Device kit Indications: Gestational diabetes [...] 07/17/2025 Active cephalexin 500 mg oral capsule (8 sources) Cephalosporin Antibacterial Start: 08-05-2024 End: 08-29-2024 cephalexin (Keflex) 500 MG capsule Take 500 mg by mouth in the morning and 500 mg at noon and 500 mg in the evening and 500 mg before bedtime. 08/05/2024 08/29/2024 Discontinued citalopram 20 mg oral tablet (20 sources) Serotonin Reuptake Inhibitor Start: 10-05-2023 End: 03-14-2028 take 1 tablet by mouth once daily Citalopram (Celexa) 20 mg tablet Discontinued 20 MG PO Daily January 31, 2024 12:00am May 18, 2025 9:30am End: 07-14-2024 take 2 tablets by mouth in the morning citalopram (CeleXA) 10 mg tablet Take 2 tablets (20 mg total) by mouth in the morning. 07/14/2024 Discontinued (Reorder) 3 ml insulin glargine 100 unt/ml pen injector (20 sources) Insulin Analog Start: 08-23-2024 End: 10-24-2024 inject 10 [IU] by subcutaneous injection at bedtime insulin glargine (Lantus SoloStar) 100 UNIT/ML pen Indications: Insulin controlled gestational diabetes mellitus (GDM) during , antepartum Inject 10 Units under the skin at bedtime 3 mL 3 08/23/2024 10/24/2024 Discontinued Start: 08-22-2024 LANTUS U-100 I NSULIN 100 [...] ml/ml medicated pad (20 sources) Start: 07-17-2024 End: 10-24-2024 Alcohol Swabs (Alcohol Prep Pad) 70 % pads Indications: Gestational diabetes mellitus (GDM) in third trimester, gestational diabetes method of control unspecified , Gestational diabetes mellitus (GDM), antepartum, gestational diabetes method of control unspecified , Elevated glucose tolerance test Apply 1 Pad topically Daily Use four times daily to check FSBS. 150 each 3 07/17/2024 10/24/2024 Discontinued labetalol hydrochloride 300 mg oral tablet (20 sources) beta-Adrenergi c All Start: 08-05-2024 End: 10-24-2024 take 1 tablet by mouth in the morning, then take 1 tablet by mouth in the evening, then take 1 tablet by mouth at bedtime labetalol (Normodyne) 300 MG tablet Indications: Hypertension, unspecified type (CMS/HCC) Take 1 tablet (300 mg) by mouth in the morning and 1 tablet (300 mg) in the evening and 1 tablet (300 mg) before bedtime. 90 tablet 08/23/2024 10/24/2024 Discontinued Start: 05-01-2024 End: 09-13-2024 take 1 tablet [...] 60 tablet 6 03/02/2024 Active Start: 01-31-2024 End: 05-18-2025 take 1 tablet by mouth twice daily Labetalol 100 mg tablet Discontinued 100 MG PO Twice daily 20 January 31, 2024 12:00am May 18, 2025 9:11am labetaloL (NORMO DYNE) 100 mg tablet Take [...] ( GUMMY ORAL) (11 sources) End: 09-08-2024 vits62/FA/om3/dha /epa ( GUMMY ORAL) Take by mouth. 09/08/2024 Discontinued vits62/ FA/om3/dha/epa ( GUMMY ORAL) Take by mouth. Active Problems Active Problems Problem Classification Problem Date Documented Date Episodic/Chronic Anxiety disorders (3 sources) Anxiety disorder, unspecified; Translations: [Generalized anxiety disorder] Onset: 01-15-2021 05-18-2025 Chronic Diabetes mellitus without complication (6 sources) Other abnormal glucose; Translations: [Abnormal glucose tolerance test] Onset: 12-12-2020 Episodic Essential hypertension (6 sources) Hypertensive disorder; Translations: [Essential (primary) hypertension] [...] unspecified fetus] 09-08-2024 Episodic Other complications of ; puerperium affecting management of mother (1 source) Encounter for delivery without indication; Translations: [Encounter for delivery without indication] Onset: 09-14-2024 Episodic Other complications of (2 sources) Heartburn; Translations: [Other specified related conditions, second trimester] 06-15-2024 Episodic Other complications of (3 sources) ultrasound [...] applicable or unspecified] Onset: 08-15-2024 Episodic Other ear and sense organ disorders (2 sources) Eczema of external auditory canal; Translations: [Acute eczematoid otitis externa, bilateral] 05-18-2025 Episodic Other nervous system disorders (2 sources) Chronic pain; Translations: [Other chronic pain] 05-18-2025 Chronic Other nutritional; endocrine; and metabolic disorders [...] screening for Streptococcus B] Onset: 12-05-2020 Episodic Pulmonary heart disease (6 sources) Pulmonary hypertension; Translations: [Pulmonary hypertension, unspecified] [...] 09-05-2024 Episodic Residual codes; unclassified (1 source) Pain, unspecified; Translations: [Pain, unspecified] Onset: 09-11-2024 Episodic Residual codes; unclassified (1 source) 32 weeks gestation of ; Translations: [32 weeks gestation of ] Onset: 08-15-2024 Episodic Residual codes; unclassified (2 sources) Family history of lupus erythematosus 05-18-2025 Episodic Unclassified (1 source) CONTACT W/AND (SUSP) EXPOS COVID-19; Translations: [CONTACT W/AND (SUSP) EXPOS COVID-19] Onset: 02-27-2021 Unclassified (1 source) New Patient Onset: 09-08-2024 Unclassified (1 source) elevated blood glucose levels Onset: 07-14-2024 Unclassified (1 source) Scheduled Onset: 09-14-2024 Unclassified (1 source) Observation of PACs Onset: 09-05-2024 Past or Other Problems Problem Classification Problem Date Documented Date Episodic/Chronic Cardiac dysrhythmias (6 sources) Tachycardia; Translations: [Tachycardia, unspecified] Onset: 09-08-2024 09-08-2024 Episodic Diabetes or abnormal glucose tolerance complicating ; childbirth; or the puerperium (20 sources) Gestational diabetes mellitus in childbirth, diet controlled; Translations: [Gestational diabetes mellitus in , diet controlled] Onset: 12-19-2020 Episodic distress and abnormal forces of labor (1 source) Labor and delivery complicated by stress, unspecified; Translations: [LABOR AND DEL COMP STRESS UNS] Onset: 02-27-2021 Episodic Immunizations and screening for infectious disease (3 sources) Encounter for screening for human papillomavirus (HPV); Translations: [Patient encounter status] Onset: 10-09-2021 04-20-2024 Episodic Other complications of ; puerperium affecting management of mother (1 source) Deliveries by ; Translations: [Encounter for delivery without indication] Onset: 09-14-2024 09-14-2024 Episodic Other complications of (1 source) Other mental disorders complicating , third trimester; Translations: [OTH MENTAL D/O COMP PREG THIRD TRI] Onset: 01-15-2021 Episodic Other complications of (13 sources) condition affecting obstetrical care of mother; Translations: [Maternal care for abnormalities of the heart rate or rhythm, unspecified trimester, not applicable or unspecified] Onset: 08-15-2024 08-15-2024 Episodic Other complications of (13 sources) ultrasound scan abnormal; Translations: [Abnormal ultrasonic finding on screening of mother] Onset: 06-21-2024 06-21-2024 Episodic Other connective tissue disease (3 sources) Other specified soft tissue disorders; Translations: [OTHER SPEC SOFT TISSUE DISORDERS] Onset: 01-13-2021 Episodic Other female genital disorders (2 sources) Vaginal discharge; Translations: [Other specified noninflammatory disorders of vagina] 04-20-2024 Episodic Other nutritional; endocrine; and metabolic disorders (14 sources) Body mass index 40+ - severely obese; Translations: [Body mass index (BMI) 40.0-44.9, adult] Onset: 06-21-2024 Resolved: 09-08-2024 08-15-2024 Chronic Polyhydramnios and other problems of amniotic cavity (20 sources) Polyhydramnios; Translations: [Polyhydramnios, unspecified trimester, not applicable or unspecified] Onset: 08-15-2024 08-15-2024 Episodic Residual codes; unclassified (1 source) 37 [...] Test Name Value Interpretation Reference Range Facility HCG ( test) Ql (U)o n 10-24-2024 Interpretation and review of laboratory results Normal [facility] Preg Test, Ur Negative Negative [facility] CBC AND AUTO DIFFon 09-16-19 25 ABSOLUTE BASOPHIL 0.1 X10E9/L Normal 0.0-0.2 [facility] Comment on above: Performed By: #### C BC, CMP, 2532-0, 3084-1, 43522-8 #### [facility] ([id number]) [address] [place] [address] ABSOLUTE NEUTROPHIL 12.8 X10E9/L High 1.5-6.6 [facility] Comment on above: Performed By: #### C ANGEL, CMP, 2532-0, 4-1, 87580-3 #### [facility] ([id number]) [address], [address] [place] [address] Basophils/100 WBC (Bld) 0.7 % Normal [facility] Comment on above: Performed By: #### Allie ORTIZ, CMP, 2532-0, 4-1, 63571-5 #### [facility] ([id number]) [address], [address] [place] [address] Eosinophils (Bld) [#/Vol] 0.1 10*3/uL Normal 0.0-0.4 [facility] Comment on above: Performed By: #### Allie ORTIZ, CMP, 2-0, 4-1, 65682-5 #### [facility] ([id number]) [address], [address] [place] [address] Eosinophils/100 WBC (Bld) 0.6 % Normal [facility] Comment on above: Performed By: #### Allie ORTIZ, CMP, 2-0, 3083-1, 52928-2 #### [facility] ([id number]) [address], [address] [place] [address] Erythrocyte distribution width (RBC) [Ratio] 14.0 % Normal 11.5-15.0 [facility] Comment on above: Performed By: #### Allie ORTIZ, CMP, 2532-0, 4-1, 52563-5 #### [facility] ([id number]) [address], [address] [place] [address] Hematocrit (Bld) [Volume fraction] 24.5 % Low 35-47 [facility] Comment on above: Performed By: #### Allie ORTIZ, CMP, 2532-0, 4-1, 67533-7 #### [facility] ([id number]) [address], [address] [place] [address] Hemoglobin (Bld) [Mass/Vol] 8.4 g/dL Low 11.7-15.5 [facility] Comment on above: Performed By: #### C BC, CMP, 2532-0, 3084-1, 04203-9 #### [facility] ([id number]) [address], [facility] [address] [place] [address] Lymphocytes (Bld) [#/Vol] 1.6 10*3/uL Normal 1.0-3.5 [facility] Comment on above: Performed By: #### Allie BC, CMP, 2532-0, 3084-1, 56728-0 #### [facility] ([id number]) [address] [place] [address] Lymphocytes/100 WBC (Bld) 10.5 % Normal [facility] Comment on above: Performed By: #### Allie BC, CMP, 2532-0, 3084-1, 12946-1 #### [facility] ([id number]) [address], [address] [place] [address] MCH (RBC) [Entitic mass] 29.6 pg Normal 27-34 [facility] Comment on above: Performed By: #### Allie BC, CMP, 2532-0, 4-1, 32766-6 #### [facility] ([id number]) [address], [address] [place] [address] MCHC (RBC) [Mass/Vol] 34.3 g/dL Normal 32-36 [facility] Comment on above: Performed By: #### Allie BC, CMP, 2532-0, 3084-1, 04706-9 #### [facility] ([id number]) [address], [address] [place] [address] MCV (RBC) [Entitic vol] 86 fL Normal 80-100 [facility] Comment on above: Performed By: #### C BC, CMP, 2532-0, 3084-1, 06317-5 #### [facility] ([id number]) [address], [address] [place] [address] Monocytes (Bld) [#/Vol] 1.2 10*3/uL High 0-0.9 [facility] Comment on above: Performed By: #### C BC, CMP, 2532-0, 3084-1, 36377-3 #### [facility] ([id number]) [address], [address] [place] [address] Monocytes/100 WBC (Bld) 7.3 % Normal [facility] Comment on above: Performed By: #### C BC, CMP, 2532-0, 3084-1, 79838-2 #### [facility] ([id number]) [address], [address] [place] [address] Neutrophils/100 WBC (Bld) 80.9 % Normal [facility] Comment on above: Performed By: #### C BC, CMP, 2532-0, 3084-1, 14487-1 #### [facility] ([id number]) [address], [address] [place] [address] Platelet mean volume (Bld) [Entitic vol] 9.8 fL Normal 7-12 [facility] Comment on above: Performed By: #### C BC, CMP, 2532-0, 3084-1, 28214-2 #### [facility] ([id number]) [address], [address] [place] [address] Platelets (Bld) [#/Vol] 192 10*3/uL Normal 150-450 [facility] Comment on above: Performed By: #### C BC, CMP, 2532-0, 3084-1, 79461-7 #### [facility] ([id number]) [address], [address] [place] [address] RBC COUNT 2.85 X10E12/L Low 3.80-5.20 [facility] Comment on above: Performed By: #### C BC, CMP, 2532-0, 3084-1, 40453-6 #### [facility] ([id number]) [address], [address] [place] [address] WBC (Bld) [#/Vol] 15.8 10*3/uL High 4.0-11.0 [facility] Comment on above: Performed By: #### C BC, CMP, 2532-0, 4-1, 11418-2 #### [facility] ([id number]) [address], [address] [place] [address] CBC AND AUTO DIFFon 09-15-19 25 ABSOLUTE BASOPHIL 0.1 X10E9/L Normal 0.0-0.2 [facility] Comment on above: Performed By: #### C BC, CMP, 2532-0, 4-1, 66263-9 #### [facility] ([id number]) [address], [address] [place] [address] ABSOLUTE NEUTROPHIL 15.1 X10E9/L High 1.5-6.6 [facility] Comment on above: Performed By: #### C BC, CMP, 2532-0, 4-1, 02443-5 #### [facility] ([id number]) [address], [address] [place] [address] Basophils/100 WBC (Bld) 0.3 % Normal [facility] Comment on above: Performed By: #### C BC, CMP, 2532-0, 3084-1, 14421-1 #### [facility] ([id number]) [address], [address] [place] [address] Eosinophils (Bld) [#/Vol] 0.0 10*3/uL Normal 0.0-0.4 [facility] Comment on above: Performed By: #### C BC, CMP, 2532-0, 3084-1, 81972-5 #### [facility] ([id number]) [address], [address] [place] [address] Eosinophils/100 WBC (Bld) 0.1 % Normal [facility] Comment on above: Performed By: #### C BC, CMP, 2532-0, 4-1, 50386-2 #### [facility] ([id number]) [address], [facility] [address] [place] [address] Erythrocyte distribution width (RBC) [Ratio] 13.8 % Normal 11.5-15.0 [facility] Comment on above: Performed By: #### C BC, CMP, 2532-0, 4-1, 51197-3 #### [facility] ([id number]) [address], [address] [place] [address] Hematocrit (Bld) [Volume fraction] 25.9 % Low 35-47 [facility] Comment on above: Performed By: #### C BC, CMP, 2532-0, 4-1, 64403-0 #### [facility] ([id number]) [address] [place] [address] Hemoglobin (Bld) [Mass/Vol] 8.9 g/dL Low 11.7-15.5 [facility] Comment on above: Performed By: #### C BC, CMP, 2532-0, 3084-1, 02180-6 #### [facility] ([id number]) [address] [place] [address] Lymphocytes (Bld) [#/Vol] 1.3 10*3/uL Normal 1.0-3.5 [facility] Comment on above: Performed By: #### C BC, CMP, 2532-0, 3084-1, 79914-3 #### [facility] ([id number]) [address], [address] [place] [address] Lymphocytes/100 WBC (Bld) 7.1 % Normal [facility] Comment on above: Performed By: #### C BC, CMP, 2532-0, 3084-1, 38746-5 #### [facility] ([id number]) [address], [address] [place] [address] MCH (RBC) [Entitic mass] 29.7 pg Normal 27-34 [facility] Comment on above: Performed By: #### C BC, CMP, 2532-0, 3084-1, 34506-1 #### [facility] ([id number]) [address], [address] [place] [address] MCHC (RBC) [Mass/Vol] 34.3 g/dL Normal 32-36 [facility] Comment on above: Performed By: #### C BC, CMP, 2532-0, 3084-1, 62754-1 #### [facility] ([id number]) [address], [address] [place] [address] MCV (RBC) [Entitic vol] 86 fL Normal 80-100 [facility] Comment on above: Performed By: #### C BC, CMP, 2532-0, 3084-1, 89137-3 #### [facility] ([id number]) [address], [address] [place] [address] Monocytes (Bld) [#/Vol] 1.5 10*3/uL High 0-0.9 [facility] Comment on above: Performed By: #### C BC, CMP, 2532-0, 3084-1, 79783-1 #### [facility] ([id number]) [address], [address] [place] [address] Monocytes/100 WBC (Bld) 8.4 % Normal [facility] Comment on above: Performed By: #### C BC, CMP, 2532-0, 3084-1, 61062-0 #### [facility] ([id number]) [address], [address] [place] [address] Neutrophils/100 WBC (Bld) 84.1 % Normal [facility] Comment on above: Performed By: #### C BC, CMP, 2532-0, 3084-1, 62970-3 #### [facility] ([id number]) [address], [address] [place] [address] Platelet mean volume (Bld) [Entitic vol] 9.4 fL Normal 7-12 [facility] Comment on above: Performed By: #### C BC, CMP, 2532-0, 3084-1, 48424-7 #### [facility] ([id number]) [address], [address] [place] [address] Platelets (Bld) [#/Vol] 195 10*3/uL Normal 150-450 [facility] Comment on above: Performed By: #### C BC, CMP, 2532-0, 3084-1, 49456-6 #### [facility] ([id number]) [address] [place] [address] RBC COUNT 3.00 X10E12/L Low 3.80-5.20 [facility] Comment on above: Performed By: #### C BC, CMP, 2532-0, 3084-1, 56065-1 #### [facility] ([id number]) [address], [address] [place] [address] WBC (Bld) [#/Vol] 18.0 10*3/uL High 4.0-11.0 [facility] Comment on above: Performed By: #### C BC, CMP, 2532-0, 3084-1, 76263-8 #### [facility] ([id number]) [address] [address] CHLAMYDIA/GC PCR, Uon 2024 CHLAMYDIA/GC PCR, U CHLAMYDIA PCR, U Negative (qualifier value) Chlamydia trachomatis not detected by nucleic acid amplification. This does not exclude the possibility of infection because results are dependent on adequate specimen collection. GONORRHOEAE PCR, U Negative (qualifier value) Neisseria gonorrhoeae not detected by nucleic acid amplification. This does not exclude the possibility of infection because results are dependent on adequate specimen collection. Normal [facility] Comment on above: Performed By: #### C GUPCR #### [facility] ([id number]) [address] [address] COMPLETE BLOOD COUNTon 09-14 Erythrocyte distribution width (RBC) [Ratio] 13.6 % Normal 11.5-15.0 [facility] Comment on above: Performed By: #### C ANGEL CMP, 2532-0, 3084-1, 22905-2 #### [facility] ([id number]) [address] [address] Hematocrit (Bld) [Volume fraction] 39.0 % Normal 35-47 [facility] Comment on above: Performed By: #### Allie BC CMP, 2532-0, 3084-1, 84066-7 #### [facility] ([id number]) [address] [address] Hemoglobin (Bld) [Mass/Vol] 13.2 g/dL Normal 11.7-15.5 [facility] Comment on above: Performed By: #### Allie BC CMP, 2532-0, 3084-1, 18297-7 #### [facility] ([id number]) [address] [address] MCH (RBC) [Entitic mass] 28.9 pg Normal 27-34 [facility] Comment on above: Performed By: #### C BC CMP, 2532-0, 3084-1, 63067-9 #### [facility] ([id number]) [address], [address] [place] [address] MCHC (RBC) [Mass/Vol] 33.9 g/dL Normal 32-36 [facility] Comment on above: Performed By: #### C BC, CMP, 2532-0, 3084-1, 42351-7 #### [facility] ([id number]) [address], [address] [place] [address] MCV (RBC) [Entitic vol] 85 fL Normal 80-100 [facility] Comment on above: Performed By: #### Allie BC, CMP, 2532-0, 4-1, 40658-6 #### [facility] ([id number]) [address], [address] [place] [address] Platelet mean volume (Bld) [Entitic vol] 9.4 fL Normal 7-12 [facility] Comment on above: Performed By: #### Allie BC, CMP, 2532-0, 4-1, 39527-7 #### [facility] ([id number]) [address], [address] [place] [address] Platelets (Bld) [#/Vol] 242 10*3/uL Normal 150-450 [facility] Comment on above: Performed By: #### Allie BC, CMP, 2532-0, 4-1, 54886-1 #### [facility] ([id number]) [address], [address] [place] [address] RBC COUNT 4.57 X10E12/L Normal 3.80-5.20 [facility] Comment on above: Performed By: #### C BC, CMP, 2532-0, 3084-1, 89614-7 #### [facility] ([id number]) [address], [address] [place] [address] WBC (Bld) [#/Vol] 16.2 10*3/uL High 4.0-11.0 [facility] Comment on above: Performed By: #### C BC, CMP, 2532-0, 3084-1, 74629-9 #### [facility] ([id number]) [address], [address] [place] [address] COMPREHENSIVE METABOLIC PANE Robinson 09-14-2024 Albumin [Mass/Vol] 3.6 g/dL Normal 3.2-5.3 [facility] Comment on above: Performed By: #### C BC, CMP, 2532-0, 3084-1, 43929-9 #### [facility] ([id number]) [address], [address] [place] [address] ALP [Catalytic activity/Vol] 213 U/L High 39-130 [facility] Comment on above: Performed By: #### Allie BC, CMP, 2532-0, 3084-1, 61967-3 #### [facility] ([id number]) [address], [address] [place] [address] ALT [Catalytic activity/Vol] 18 U/L Normal 0-31 [facility] Comment on above: Performed By: #### C BC, CMP, 2532-0, 3084-1, 59387-0 #### [facility] ([id number]) [address], [address] [place] [address] Anion gap [Moles/Vol] 11 mmol/L Normal 5-15 [facility] Comment on above: Performed By: #### C BC, CMP, 2532-0, 3084-1, 00515-8 #### [facility] ([id number]) [address], [address] [place] [address] AST [Catalytic activity/Vol] 13 U/L Normal 0-41 [facility] Comment on above: Performed By: #### C BC, CMP, 2532-0, 3084-1, 83769-0 #### [facility] ([id number]) [address], [address] [place] [address] Bilirubin [Mass/Vol] 0.5 mg/dL Normal 0.3-1.2 [facility] Comment on above: Performed By: #### Allie BC, CMP, 2532-0, 3084-1, 80276-2 #### [facility] ([id number]) [address], [address] [place] [address] Calcium [Mass/Vol] 9.1 mg/dL Normal 8.5-10.5 [facility] Comment on above: Performed By: #### Allie ORTIZ, CMP, 2532-0, 3084-1, 69185-8 #### [facility] ([id number]) [address], [address] [place] [address] Chloride [Moles/Vol] 101 mmol/L Normal 98-109 [facility] Comment on above: Performed By: #### Allie ORTIZ, CMP, 2532-0, 3084-1, 70856-4 #### [facility] ([id number]) [address] [facility] [facility] [address] [place] [address] CO2 [Moles/Vol] 24 mmol/L Normal 22-32 [facility] Comment on above: Performed By: #### Allie ORTIZ, CMP, 2532-0, 3084-1, 89602-7 #### [facility] ([id number]) [address], [address] [place] [address] Creatinine [Mass/Vol] 0.44 mg/dL Normal 0.40-1.00 [facility] Comment on above: Result Comment: METH OD TRACEABLE TO IDMS STANDARD Performed By: #### C ANGEL, CMP, 2532-0, 3084-1, 68348-7 #### [facility] ([id number]) [address], [address] [place] [address] eGFR (CKD-EPI) NON-RACE DEPENDENT >90 Normal >59 [facility] Comment on above: Result Comment: Reported eGFR is based on the CKD-EPI 2020 equation that does not use a race coefficient. Performed By: #### C PRINCESS ORTIZ, 2532-0, 3084-1, 64680-5 #### [facility] ([id number]) [address], [address] [place] [address] Glucose [Mass/Vol] 79 mg/dL Normal 65-99 [facility] Comment on above: Performed By: #### Allie ORTIZ, CMP, 2532-0, 3084-1, 79657-2 #### [facility] ([id number]) [address], [address] [place] [address] Potassium [Moles/Vol] 3.9 mmol/L Normal 3.5-5.0 [facility] Comment on above: Performed By: #### Allie ORTIZ CMP, 2532-0, 3084-1, 84357-5 #### [facility] ([id number]) [address], [address] [place] [address] Protein [Mass/Vol] 6.2 g/dL Normal 6.0-8.0 [facility] Comment on above: Performed By: #### Allie ORTIZ CMP, 2532-0, 3084-1, 35466-8 #### [facility] ([id number]) [address], [address] [place] [address] Sodium [Moles/Vol] 136 mmol/L Normal 134-146 [facility] Comment on above: Performed By: #### Allie ORTIZ, CMP, 2532-0, 3084-1, 11733-1 #### [facility] ([id number]) [address], [address] [place] [address] Urea nitrogen [Mass/Vol] 5 mg/dL Normal 5-23 [facility] Comment on above: Performed By: #### Allie ORITZ, CMP, 2532-0, 3084-1, 34125-1 #### [facility] ([id number]) [address] [place] [address] CORD ARTERIAL GASon 09-14-19 25 SIMA'S TEST Normal [facility] Comment on above: Performed By: #### C STOCK DIGGER #### [facility] ([id number]) [address] [place] [address] BASE,DEFICIT 2.0 MMOL/L Normal 0.0-2.0 [facility] Comment on above: Performed By: #### C STOCK DIGGER #### [facility] ([id number]) [address] [place] [address] HCO3 (Bld) [Moles/Vol] 27.4 mmol/L High 22-26 [facility] Comment on above: Performed By: #### C STOCK DIGGER #### [facility] ([id number]) [address] [place] [address] Oxygen (Bld) [Partial pressure] 9 mm[Hg] Low 12-24 [facility] Comment on above: Performed By: #### C STOCK DIGGER #### [facility] ([id number]) [address] [place] [address] Oxygen saturation in Blood 6.0 % Low 7.1-39.5 [facility] Comment on above: Performed By: #### C STOCK DIGGER #### [facility] ([id number]) [address] [place] [address] OXYGEN SOURCE RoomAir Normal [facility] Comment on above: Performed By: #### C STOCK DIGGER #### [facility] ([id number]) [address] [place] [address] PCO2 61.8 MMHG High 40.8-57.6 [facility] Comment on above: Performed By: #### C STOCK DIGGER #### [facility] ([id number]) [address] [place] [address] pH (Bld) 7.254 [pH] Normal 7.24-7.30 [facility] Comment on above: Performed By: #### C STOCK DIGGER #### [facility] ([id number]) [address] [place] [address] SAMPLE SITE [employer] Normal [facility] Comment on above: Performed By: #### C STOCK DIGGER #### [facility] ([id number]) [address] [place] [address] SAMPLE TYPE UMBILICALCORD Normal [facility] Comment on above: Performed By: #### C STOCK DIGGER #### [facility] ([id number]) [address] [place] [address] CORD VENOUS GASon 09-14-2024 SIMA'S TEST Normal [facility] Comment on above: Performed By: #### C RDV #### [facility] ([id number]) [address] [place] [address] Base excess Calc (Bld) [Moles/Vol] 0.0 mmol/L Normal 0.0-2.0 [facility] Comment on above: Performed By: #### C RDV #### [facility] ([id number]) [address] [place] [address] HCO3 (Bld) [Moles/Vol] 27.0 mmol/L High 20.0-24.0 [facility] Comment on above: Performed By: #### C RDV #### [facility] ([id number]) [address] [place] [address] Oxygen (Bld) [Partial pressure] 14 mm[Hg] Low 22-35 [facility] Comment on above: Performed By: #### C RDV #### [facility] ([id number]) [address] [place] [address] Oxygen saturation in Blood 16.0 % Low 32.5-66.3 [facility] Comment on above: Performed By: #### C RDV #### [facility] ([id number]) [address] [place] [address] OXYGEN SOURCE [employer] [facility] Comment on above: Performed By: #### C RDV #### [facility] ([id number]) [address] [place] [address] PCO2 51.2 MMHG High 32.6-43.8 [facility] Comment on above: Performed By: #### C RDV #### [facility] ([id number]) [address] [place] [address] pH (Bld) 7.330 [pH] Normal 7.25-7.37 [facility] Comment on above: Performed By: #### C RDV #### [facility] ([id number]) [address] [place] [address] SAMPLE SITE [employer] [facility] Comment on above: Performed By: #### C RDV #### [facility] ([id number]) [address] [place] [address] SAMPLE TYPE UMBILICALCORD [facility] Comment on above: Performed By: #### C RDV #### [facility] ([id number]) [address] [place] [address] DRUG SCREEN, URINEon 025 AMPHETAMINE/METHAMP Negative Normal NEG [facility] Comment on above: Result Comment: AMPH /METH screening cut off = 1000 ng/mL Performed By: #### U PCR, DSU #### [facility] ([id number]) [address] [facility], [address] [place] [address] BARBITURATES Negative Normal NEG [facility] Comment on above: Result Comment: Matilda iturates screening cut off value = 200 ng/mL Performed By: #### U PCR, DSU #### [facility] ([id number]) [address], [address] [place] [address] BENZODIAZEPINES Negative Normal NEG [facility] Comment on above: Result Comment: Cornell odiazepines screening cut off value = 200 ng/mL Performed By: #### U PCR, DSU #### [facility] ([id number]) [address], [address] [place] [address] CANNABINOIDS Negative Normal NEG [facility] Comment on above: Result Comment: Marleny abinoids/THC screening cut off value = 50 ng/mL Performed By: #### U PCR, DSU #### [facility] ([id number]) [address], [address] [place] [address] COCAINE METABOLITE Negative Normal NEG [facility] Comment on above: Result Comment: Coca ine screening cut off value = 300 ng/mL Performed By: #### U PCR, DSU #### [facility] ([id number]) [address], [address] [place] [address] ECSTASY Positive Abnormal NEG [facility] Comment on above: Result Comment: Inte rference from Buproprion or Labetalol may cause a positive result, confirmation available upon request. Ecstasy screening cut off value = 500 ng/mL This report is intended for use in clinical monitoring or management of patients. Performed By: #### U PCR, DSU #### [facility] ([id number]) [address], [address] [place] [address] METHADONE Negative Normal NEG [facility] Comment on above: Result Comment: Meth adone screening cut off value = 300 ng/mL. Performed By: #### U PCR, DSU #### [facility] ([id number]) [address], [address] [place] [address] OPIATES Negative Normal NEG [facility] Comment on above: Result Comment: Opia darryl screening cut off value = 300 ng/mL NOTE: This test is used for the detection of codeine, hydrocodone (>1000 ng/mL), morphine and hydromorphone (>900 ng/mL) in urine. Performed By: #### U PCR, DSU #### [facility] ([id number]) [address], [address] [place] [address] OXYCODONE Negative Normal NEG [facility] Comment on above: Result Comment: Oxyc odone screening cut off value = 300 ng/mL NOTE: This test is used for the detection of oxycodone and oxymorphone in urine. Performed By: #### U PCR, DSU #### [facility] ([id number]) [address] [facility], [address] [address] PHENCYCLIDINE Negative Normal NEG [facility] Comment on above: Result Comment: Phen cyclidine screening cut off value = 25 ng/mL Performed By: #### U PCR, DSU #### [facility] ([id number]) [address] [facility], [address] [place] [address] LDH [Catalytic activity/Vol] on 09-14-2024 LDH 165 U/L Normal 100-235 [facility] Comment on above: Performed By: #### C BC, CMP, 2532-0, 3084-1, 05916-8 #### [facility] ([id number]) [address], [address] [place] [address] PROTEIN CREAT RATIOon 2024 RANDOM URINE PROTEIN 60 mg/L Normal <120 [facility] Comment on above: Performed By: #### U PCR, DSU #### [facility] ([id number]) [address] [address] U/PRO/PHOTOGRAPHIC RESTORER RATIO CALC 0.16 Normal <0.2 [facility] Comment on above: Result Comment: Neph rotic Syndrome is associated with ratios >3.5 Performed By: #### U PCR, DSU #### [facility] ([id number]) [address] [place] [address], [address] [place] [address] URINE CREATININE,RDM 36.65 mg/dL Normal [facility] Comment on above: Performed By: #### U PCR, DSU #### [facility] ([id number]) [address] [place] [address], [address] [address] T. pallidum IgG+IgM IA Ql (S )on 09-14-2024 Syphilis Total <0.2 Normal 0.0-0.8 [facility] Comment on above: Result Comment: NON REACTIVE No serologic evidence of infection to Treponema pallidum (syphilis). Repeat testing may be considered in patients with suspected acute or primary syphilis in 2 to 4 weeks. Performed By: #### C BC, CMP, 2532-0, 3084-1, 86633-5 #### [facility] ([id number]) [address] [place] [address], [address] [address] URIC ACIDon 09-14-2024 Urate [Mass/Vol] 2.9 mg/dL Normal 2.6-7.2 [facility] Comment on above: Performed By: #### C BC, CMP, 2532-0, 3084-1, 65069-7 #### [facility] ([id number]) [address] [place] [address], [address] [address] POCT EKGon 09-08-2024 [facility] US OB BPP W NON-STRESS on 09-08-[address] [address] Ultrasound Report Signed Patient: SAMANTHA BENJAMIN MR#: [id number] : 1995 Acct:[id number] Age/Sex: 29 / F ADM Date: 09/07/24 Loc: US Attending Dr: Zhen Dhillon D.O. Ordering Physician: Zhen Dhillon D.O. Date of Service: 09/07/24 Procedure(s): US OB BPP w non-stress Accession Number(s): [id number] cc: Zhen Dhillon D.O.; Jacques Mccarthy M.D. The [address] [address] Patient Name: SAMANTHA BENJAMIN MRN: [facility]:[id number] date: 1995 Sex: F Assigned Patient Location: US Current Patient Location: US Accession/Order Number: [id number] Exam Date: 09/07/2024 17:55 Report Date: 09/08/2024 [...] Combs M.D. Signed By: 09/08/24 0755 DD/ 0753 TD/TT: General Store Manager: [facility] Radiology, Radiologi MD barb - 09/08/2024 [place] [address] Ultrasound Report Signed Patient: SAMANTHA BENJAMIN MR#: [id number] : 1995 Acct:[id number] Age/Sex: 29 / F ADM Date: 09/07/24 Loc: US Attending Dr: Zhen Dhillon D.O. Ordering Physician: Zhen Dhillon D.O. Date of Service: 09/07/24 Procedure(s): US OB BPP w non-stress Accession Number(s): [id number] cc: Zhen Dhillon D.O.; Jacques Mccarthy M.D. [place] [id number] Patient Name: SAMANTHA BENJAMIN MRN: [facility]:[id number] date: 1995 Sex: F Assigned Patient Location: US Current Patient Location: US Accession/Order Number: [id number] Exam Date: 09/07/2024 17:55 Report Date: 09/08/2024 [...] Dictated By: Irineo Combs M.D. Signed By: 09/08/24754 DD/ 2 TD/TT: General Store Manager: [facility] Radiology Study observation (narrative) [facility] US OB BPP W NON-STRESS Ordered By: Radiologist Radiology on 09-08-2024 [facility] Work Phone: US OB GROWTHon 09-08-2024 [place] [address] Ultrasound Report Signed Patient: SAMANTHA BENJAMIN MR#: [id number] : 1995 Acct:[id number] Age/Sex: 29 / F ADM Date: 09/07/24 Loc: US Attending Dr: Zhen Dhillon D.O. Ordering Physician: Zhen Dhillon D.O. Date of Service: 09/07/24 Procedure(s): US OB growth Accession Number(s): [id number] cc: Zhen Dhillon D.O.; Jacques Mccarthy M.D. The [place] [id number] Patient Name: SAMANTHA BENJAMIN MRN: [facility]:[id number] date: 1995 Sex: F Assigned Patient Location: US Current Patient Location: US Accession/Order Number: [id number] Exam Date: 09/07/2024 17:55 Report Date: 09/08/2024 [...] M.D. Signed By: 09/08/24826 DD/ 3 TD/TT: General Store Manager: [facility] RadiologyIva MD - 09/08/2024 [place] [address] Ultrasound Report Signed Patient: SAMANTHA BENJAMIN MR#: [id number] : 1995 Acct:[id number] Age/Sex: 29 / F ADM Date: 09/07/24 Loc: US Attending Dr: Zhen Dhillon D.O. Ordering Physician: Zhen Dhillon D.O. Date of Service: 09/07/24 Procedure(s): US OB growth Accession Number(s): [id number] cc: Zhen Dhillon D.O.; Jacques Mccarthy M.D. [place] [id number] Patient Name: SAMANTHA BENJAMIN MRN: [facility]:[id number] date: 1995 Sex: F Assigned Patient Location: Current Patient Location: US Accession/Order Number: [id number] Exam Date: 09/07/2024 17:55 Report Date: 09/08/2024 [...] M.D. Signed By: 09/08/24826 DD/ 3 TD/TT: General Store Manager: [facility] Radiology Study observation (narrative) [facility] US OB GROWTHOrdered By: Randy ologist Radiology on 09-08-2024 [facility] Work Phone: US OB UMBILICAL ARTERY DOPPL Yifan 09-08-2024 [place] [address] Ultrasound Report Signed Patient: SAMANTHA BENJAMIN MR#: [id number] : 1995 Acct:[id number] Age/Sex: 29 / F ADM Date: 09/07/24 Loc: US Attending Dr: Zhen Dhillon D.O. Ordering Physician: Zhen Dhillon D.O. Date of Service: 09/07/24 Procedure(s): US OB umbilical artery Accession Number(s): [id number] cc: Zhen Dhillon D.O.; Jacques Mccarthy M.D. [place] [id number] Patient Name: SAMANTHA BENJAMIN MRN: [id number] date: 1995 Sex: F Assigned Patient Location: US Current Patient Location: US Accession/Order Number: [id number] Exam Date: 09/07/2024 17:55 Report Date: 09/08/2024 [...] M.D. Signed By: 09/08/24828 DD/ 5 TD/TT: General Store Manager: [facility] Radiology, Radiologadelfo day MD - 09/08/2024 [place] [address] Ultrasound Report Signed Patient: SAMANTHA BENJAMIN MR#: [id number] : 1995 Acct:[id number] Age/Sex: 29 / F ADM Date: 09/07/24 Loc: US Attending Dr: Zhen Dhillon D.O. Ordering Physician: Zhen Dhillon D.O. Date of Service: 09/07/24 Procedure(s): US OB umbilical artery Accession Number(s): [id number] cc: Zhen Dhillon D.O.; Jacques Mccarthy M.D. The [place] [id number] Patient Name: SAMANTHA BENJAMIN MRN: [facility]:[id number] date: 1995 Sex: F Assigned Patient Location: Current Patient Location: US Accession/Order Number: [id number] Exam Date: 09/07/2024 17:55 Report Date: 09/08/2024 [...] M.D. Signed By: 09/08/24828 DD/ 5 TD/TT: General Store Manager: [facility] Radiology Study observation (narrative) [facility] US OB UMBILICAL ARTERY DOPPL EROrdered By: Radiologist Radiology on 09-08-2024 [facility] Work Phone: TB UA (CLEAN/CATCH) POSTMASTER/KEYLA RO IF IND.on 08-30-2024 BILIRUBIN URINE Negative NEGATIVE [facility] BLOOD URINE Negative NEGATIVE [facility] Clarity (U) CLEAR CLEAR [facility] Color (U) YELLOW YELLOW [facility] GLUCOSE URINE UA Negative NEGATIVE mg/dL [facility] Interpretation and review of laboratory results Abnormal [facility] Ketones Ql (U) 15 mg/dL Abnormal NEGATIVE [facility] Leukocyte esterase Test strip Ql (U) Negative NEGATIVE [facility] NITRITE URINE Negative NEGATIVE [facility] pH (U) 6.0 [pH] 5.0 - 9.0 [facility] Protein (U) [Mass/Vol] 30 mg/dL Abnormal NEG/TRACE NO [facility] SPECIFIC GRAVITY URINE >=1.030 Abnormal 1.005 - 1.025 [facility] URINE MICROSCOPIC INDICATED YES [facility] UROBILINOGEN URINE 0.2 EU/dL 0.2 - 1.0 EU/dL [facility] CLINISYNC [facility] US OB BPP W NON-STRESS on 08-30-2024 [place] [address] Ultrasound Report Signed Patient: SAMANTHA BENJAMIN MR#: [id number] : 1995 Acct:[id number] Age/Sex: 29 / F ADM Date: 08/30/24 Loc: [place] [address]: Zhen Dhillon D.O. Ordering Physician: Zhen Dhillon D.O. Date of Service: 08/30/24 Procedure(s): US OB BPP w non-stress Accession Number(s): [id number] cc: Zhen Dhillon D.O.; Jacques Mccarthy M.D. The [place] [id number] Patient Name: SAMANTHA BENJAMIN MRN: [id number] date: 1995 Sex: F Assigned Patient Location: [facility] Current Patient Location: [facility] Accession/Order Number: [id number] Exam Date: 08/30/2024 13:43 Report Date: 08/30/2024 14:27 At the request of: ZHEN DHILLON Procedure: US OB BPP w non-stress Ultrasound biophysical profile CLINICAL: Evaluate well-being. Clinical gestational age of 34 weeks 6 days. TECHNIQUE: Dedicated ultrasound imaging of the fetus was performed to include the administrative office assistant's evaluation of biophysical profile. FINDINGS: Comparison: Ultrasound [...] Signed By: 08/30/24 1430 DD/ 1427 TD/TT: General Store Manager: [facility] Radiology, Radiologi MD barb - 08/30/2024 [place] [address] Ultrasound Report Signed Patient: SAMANTHA BENJAMIN MR#: [id number] : 1995 Acct:[id number] Age/Sex: 29 / F ADM Date: 08/30/24 Loc: [facility] 250-[address]: Zhen Dhillon D.O. Ordering Physician: Zhen Dhillon D.O. Date of Service: 08/30/24 Procedure(s): US OB BPP w non-stress Accession Number(s): [id number] cc: Zhen Dhillon D.O.; Jacques Mccarthy M.D. [place] [address] Patient Name: SAMANTHA BENJAMIN MRN: [facility]:[id number] date: 1995 Sex: F Assigned Patient Location: [facility] Current Patient Location: [facility] Accession/Order Number: [id number] Exam Date: 08/30/2024 13:43 Report Date: 08/30/2024 14:27 At the request of: ZHEN DHILLON Procedure: US OB BPP w non-stress Ultrasound biophysical profile CLINICAL: Evaluate well-being. Clinical gestational age of 34 weeks 6 days. TECHNIQUE: Dedicated ultrasound imaging of the fetus was performed to include the administrative office assistant's evaluation of biophysical profile. FINDINGS: Comparison: Ultrasound [...] Signed By: 08/30/24 1430 DD/ 1427 TD/TT: General Store Manager: [facility] Radiology Study observation (narrative) [facility] US OB BPP W NON-STRESS Ordered By: Radiologist Radiology on 08-30-2024 [facility] Work Phone: Urinalysis macro (dipstick) panel (U)on 08-29-2024 Bilirubin, UA Negative Negative - 4(70) +++ mg/dL [facility] Blood, UA Negative Negative - 50 Hardeep/mcL [facility] Clarity, UA Clear [facility] Color, UA Yellow [facility] Glucose, UA Positive Negative - 1999(110) ++++ mg/dL [facility] Comment on above: 100 Interpretation and review of laboratory results Abnormal [facility] Ketones, UA Negative Negative - 160(16) ++++ mg/dL [facility] Leukocytes, UA Negative Negative - 500+++ Renee/mcL [facility] [facility] N[facility], UA Negative Negative - Positive [facility] pH, UA 7 5 - 9 [facility] Protein, UA Positive Negative - 1999(20) ++++ mg/dL [facility] Comment on above: 30 Spec Grav, UA 1.02 1 - 1.03 [facility] Urobilinogen, UA 1.0 0.2 - 12 mg/dL [facility] Urinalysis macro (dipstick) panel (U)on 08-22-2024 Bilirubin, UA Negative Negative - 4(70) +++ mg/dL [facility] Blood, UA Negative Negative - 50 Hardeep/mcL [facility] Clarity, UA Clear [facility] Color, UA Yellow [facility] Glucose, UA Negative Negative - 1999(110) ++++ mg/dL [facility] Interpretation and review of laboratory results Normal [facility] Ketones, UA Negative Negative - 160(16) ++++ mg/dL [facility] Leukocytes, UA Negative Negative - 500+++ Renee/mcL [facility] Nitrite, UA Negative Negative - Positive [facility] pH, UA 7 5 - 9 [facility] Protein, UA Negative Negative - 2000(20) ++++ mg/dL [facility] Spec Grav, UA 1.015 1 - 1.03 [facility] Urobilinogen, UA 0.2 0.2 - 12 mg/dL [facility] Urinalysis macro (dipstick) panel (U)on 08-14-2024 Bilirubin, UA Negative Negative - 4(70) +++ mg/dL [facility] Blood, UA Positive Negative - 50 Hardeep/mcL [facility] Comment on above: trace-intact Clarity, UA Clear [facility] Color, UA Yellow [facility] Glucose, UA Negative Negative - 1999(110) ++++ mg/dL [facility] Interpretation and review of laboratory results Abnormal [facility] Ketones, UA Positive Negative - 160(16) ++++ mg/dL [facility] Comment on above: 40 Leukocytes, UA Negative Negative - 500+++ Renee/mcL [facility] Nitrite, UA Negative Negative - Positive [facility] pH, UA 6 5 - 9 [facility] Protein, UA Trace Negative - 2000(20) ++++ mg/dL [facility] Spec Grav, UA 1.02 1 - 1.03 [facility] Urobilinogen, UA 0.2 0.2 - 12 mg/dL [facility] ALL CBC WITH AUTO DIFFon BASOPHILS ABSOLUTE AUTO 0.1 [facility] Basophils/100 WBC (Bld) 0.3 % 0.2 - 2.0 % [facility] Eosinophils/100 WBC (Bld) 0.6 % Low 0.9 - 7.0 % [facility] Erythrocyte distribution width (RBC) [Ratio] 12.2 % 11.0 - 15.0 % [facility] Hematocrit (Bld) [Volume fraction] 36.7 % 36.0 - 48.0 % [facility] Hemoglobin (Bld) [Mass/Vol] 12.5 g/dL 12.0 - 16.0 g/dL [facility] IMMATURE GRANULOCYTES ABS AUTO 0.33 High [facility] Immature granulocytes/100 WBC (Bld) 2 % High 0.0 - 0.5 % [facility] Interpretation and review of laboratory results Abnormal [facility] LYMPHOCYTES ABSOLUTE AUTO 1.6 [facility] Lymphocytes/100 WBC (Bld) 9.9 % Low 20.5 - 60.0 % [facility] MCH (RBC) [Entitic mass] 29.7 pg 26.7 - 34.0 pg [facility] MCHC (RBC) [Mass/Vol] 34.1 g/dL 29.9 - 35.2 g/dL [facility] MCV (RBC) [Entitic vol] 87.2 fL 81.0 - 99.0 fL [facility] MONOCYTES ABSOLUTE AUTO 1 High [facility] Monocytes/100 WBC (Bld) 6.3 % 1.7 - 12.0 % [facility] NEUTROPHILS ABSOLUTE AUTO 13.2 High [facility] Neutrophils/100 WBC (Bld) 80.9 % High 43.0 - 75.0 % [facility] Platelet mean volume (Bld) [Entitic vol] 10.5 fL 9.5 - 13.5 fL [facility] TBH EO # 0.1 [facility] PLT 247 [facility] RBC 4.21 [facility] WBC 16.3 High [facility] CLINISYNC [facility] ALL CBC WITH AUTO DIFFon BASOPHILS ABSOLUTE AUTO 0.1 [facility] Basophils/100 WBC (Bld) 0.3 % 0.2 - 2.0 % [facility] Eosinophils/100 WBC (Bld) 0.2 % Low 0.9 - 7.0 % [facility] Erythrocyte distribution width (RBC) [Ratio] 12.1 % 11.0 - 15.0 % [facility] Hematocrit (Bld) [Volume fraction] 35.3 % Low 36.0 - 48.0 % [facility] Hemoglobin (Bld) [Mass/Vol] 12.1 g/dL 12.0 - 16.0 g/dL [facility] IMMATURE GRANULOCYTES ABS AUTO 0.31 High [facility] Immature granulocytes/100 WBC (Bld) 1.7 % High 0.0 - 0.5 % [facility] Interpretation and review of laboratory results Abnormal [facility] LYMPHOCYTES ABSOLUTE AUTO 1.4 [facility] Lymphocytes/100 WBC (Bld) 7.9 % Low 20.5 - 60.0 % [facility] MCH (RBC) [Entitic mass] 29.8 pg 26.7 - 34.0 pg [facility] MCHC (RBC) [Mass/Vol] 34.3 g/dL 29.9 - 35.2 g/dL [facility] MCV (RBC) [Entitic vol] 86.9 fL 81.0 - 99.0 fL [facility] MONOCYTES ABSOLUTE AUTO 1.3 High [facility] Monocytes/100 WBC (Bld) 7.1 % 1.7 - 12.0 % [facility] NEUTROPHILS ABSOLUTE AUTO 15.1 High [facility] Neutrophils/100 WBC (Bld) 82.8 % High 43.0 - 75.0 % [facility] Platelet mean volume (Bld) [Entitic vol] 10.5 fL 9.5 - 13.5 fL [facility] EO # 0 [facility] PLT 217 [facility] RBC 4.06 Low [facility] WBC 18.2 High [facility] CLINIS[facility]NC [facility] UA (CLEAN/CATCH) POSTMASTER/KEYLA RO IF IND.on 08-04-2024 BILIRUBIN URINE Negative NEGATIVE [facility] BLOOD URINE Negative NEGATIVE [facility] Clarity (U) CLEAR CLEAR [facility] Color (U) YELLOW YELLOW [facility] GLUCOSE URINE UA 500 mg/dL Abnormal NEGATIVE [facility] Interpretation and review of laboratory results Abnormal [facility] Ketones Ql (U) Negative NEGATIVE mg/dL [facility] Leukocyte esterase Test strip Ql (U) Negative NEGATIVE [facility] NITRITE URINE Negative NEGATIVE [facility] pH (U) 6.0 [pH] 5.0 - 9.0 [facility] PROTEIN URINE Negative NEG/TRACE mg/dL [facility] SPECIFIC GRAVITY URINE 1.025 1.005 - 1.025 [facility] URINE MICROSCOPIC INDICATED NO [facility] UROBILINOGEN URINE 0.2 EU/dL 0.2 - 1.0 EU/dL [facility]on 07-31-2024 Bilirubin, UA Negative Negative - 4(70) +++ mg/dL [facility] Blood, UA Positive Negative - 50 Hardeep/mcL [facility] Comment on above: small Clarity, UA Clear [facility] Color, UA Yellow [facility] Glucose, UA Positive Negative - 1999(110) ++++ mg/dL [facility] Comment on above: 250 Interpretation and review of laboratory results Abnormal [facility] Ketones, UA Negative Negative - 160(16) ++++ mg/dL [facility] Leukocytes, UA Negative Negative - 500+++ Renee/mcL [facility] Nitrite, UA Negative Negative - Positive [facility] pH, UA 6 5 - 9 [facility] Protein, UA Trace Negative - 1999(20) ++++ mg/dL [facility] Spec Grav, UA 1.02 1 - 1.03 [facility] Urobilinogen, UA 0.2 0.2 - 12 mg/dL [facility] Urinalysis macro (dipstick) panel (U)on 07-17-2024 Bilirubin, UA Negative Negative - 4(70) +++ mg/dL [facility] Blood, UA Negative Negative - 50 Hardeep/mcL [facility] Clarity, UA Clear [facility] Color, UA Yellow [facility] Glucose, UA Positive Negative - 2000(110) ++++ mg/dL [facility] Comment on above: 500 Interpretation and review of laboratory results Abnormal [facility] Ketones, UA Positive Negative - 160(16) ++++ mg/dL [facility] Comment on above: TRACE Leukocytes, UA Negative Negative - 500+++ Renee/mcL [facility] Nitrite, UA Negative Negative - Positive [facility] pH, UA 5.5 5 - 9 [facility] Protein, UA Negative Negative - 2000(20) ++++ mg/dL [facility] Spec Grav, UA 1.02 1 - 1.03 [facility] Urobilinogen, UA 0.2 0.2 - 12 mg/dL [facility] Glucose random or fasting- P OCTon 07-14-2024 External Glucose Fasting Or Random (Fbs) 169 [facility] ALL CBC WITH AUTO DIFFon BASOPHILS ABSOLUTE AUTO 0.1 [facility] Basophils/100 WBC (Bld) 0.3 % 0.2 - 2.0 % [facility] Eosinophils/100 WBC (Bld) 0.3 % Low 0.9 - 7.0 % [facility] Erythrocyte distribution width (RBC) [Ratio] 12.1 % 11.0 - 15.0 % [facility] Hematocrit (Bld) [Volume fraction] 37.3 % 36.0 - 48.0 % [facility] Hemoglobin (Bld) [Mass/Vol] 12.7 g/dL 12.0 - 16.0 g/dL [facility] IMMATURE GRANULOCYTES ABS AUTO 0.32 High [facility] Immature granulocytes/100 WBC (Bld) 1.8 % High 0.0 - 0.5 % [facility] Interpretation and review of laboratory results Abnormal [facility] LYMPHOCYTES ABSOLUTE AUTO 1.5 [facility] Lymphocytes/100 WBC (Bld) 8.3 % Low 20.5 - 60.0 % [facility] MCH (RBC) [Entitic mass] 30.3 pg 26.7 - 34.0 pg [facility] MCHC (RBC) [Mass/Vol] 34 g/dL 29.9 - 35.2 g/dL [facility] MCV (RBC) [Entitic vol] 89 fL 81.0 - 99.0 fL [facility] MONOCYTES ABSOLUTE AUTO 0.9 High [facility] Monocytes/100 WBC (Bld) 5.2 % 1.7 - 12.0 % [facility] NEUTROPHILS ABSOLUTE AUTO 15 High [facility] Neutrophils/100 WBC (Bld) 84.1 % High 43.0 - 75.0 % [facility] Platelet mean volume (Bld) [Entitic vol] 10.4 fL 9.5 - 13.5 fL [facility] TBH EO # 0.1 [facility] TBH PLT 255 [facility] RBC 4.19 Low [facility] WBC 17.8 High [facility] Urinalysis macro (dipstick) panel (U)on 06-15-2024 Bilirubin, UA Negative Negative - 4(70) +++ mg/dL [facility] Blood, UA Negative Negative - 50 Hardeep/mcL [facility] Clarity, UA Clear [facility] Color, UA Yellow [facility] Glucose, UA Positive Negative - 1999(110) ++++ mg/dL [facility] Interpretation and review of laboratory results Abnormal [facility] Ketones, UA Negative Negative - 160(16) ++++ mg/dL [facility] Leukocytes, UA Positive Negative - 500+++ Renee/mcL [facility] Nitrite, UA Negative Negative - Positive [facility] pH, UA 5.5 5 - 9 [facility] Protein, UA Negative Negative - 1999(20) ++++ mg/dL [facility] Spec Grav, UA 1.02 1 - 1.03 [facility] Urobilinogen, UA 1.0 0.2 - 12 mg/dL [facility] Urinalysis macro (dipstick) panel (U)on 05-18-2024 Bilirubin, UA Negative Negative - 4(70) +++ mg/dL [facility] Blood, UA Negative Negative - 50 Hardeep/mcL [facility] Clarity, UA Clear [facility] Color, UA Yellow [facility] Glucose, UA Negative Negative - 1999(110) ++++ mg/dL [facility] Interpretation and review of laboratory results Normal [facility] Ketones, UA Negative Negative - 160(16) ++++ mg/dL [facility] Leukocytes, UA Negative Negative - 500+++ Renee/mcL [facility] Nitrite, UA Negative Negative - Positive [facility] pH, UA 7 5 - 9 [facility] Protein, UA Negative Negative - 1999(20) ++++ mg/dL [facility] Spec Grav, UA 1.025 1 - 1.03 [facility] Urobilinogen, UA 0.2 0.2 - 12 mg/dL [facility] Urinalysis macro (dipstick) panel (U)on 04-20-2024 Bilirubin, UA Positive Negative - 4(70) +++ mg/dL [facility] Comment on above: small Blood, UA Negative Negative - 50 Hardeep/mcL [facility] Clarity, UA Clear [facility] Color, UA Yellow [facility] Glucose, UA Negative Negative - 1999(110) ++++ mg/dL [facility] Interpretation and review of laboratory results Abnormal [facility] Ketones, UA Positive Negative - 160(16) ++++ mg/dL [facility] Comment on above: trace Leukocytes, UA Negative Negative - 500+++ Renee/mcL [facility] Nitrite, UA Negative Negative - Positive [facility] pH, UA 6.5 5 - 9 [facility] Protein, UA Trace Negative - 1999(20) ++++ mg/dL [facility] Spec Grav, UA 1.030 1 - 1.03 [facility] Urobilinogen, UA 1.0 0.2 - 12 mg/dL [facility] Activated partial thrombopla stin time (aPTT) in platelet poor plasma by coagulation aOrdered By: Kwesi Dudley on 01-31-2024 aPTT Coag (PPP) [Time] 26.1 s 25.1-36.5 [facility] Comment on above: A hematocrit value g reater than 55% may lead to inaccurate results in coagulation testing. Patients having hematocrit values >55% require a special collection tube for coagulation studies. Please contact the laboratory at [phone] for redraw instructions. Alanine aminotransferase [En zymatic activity/volume] in Serum or PlasmaOrdered By: Kwesi Dudley on 01-31-2024 ALT [Catalytic activity/Vol] 22 U/L Normal 7-52 [facility] Comment on above: Performed By: #### H S TROP, PTT, CMP, DDIMER, BNP, CK, PT, CBC #### [facility] [address] Albumin [Mass/volume] in Ser um or Plasma by Bromocresol green (BCG) dye binding methoOrdered By: Kwesi Dudley on 01-31-2024 Albumin BCG dye [Mass/Vol] 4.7 g/dL 3.5-5.7 [facility] Alkaline phosphatase [Enzyma tic activity/volume] in Serum or PlasmaOrdered By: Kwesi Dudley on 01-31-2024 ALP [Catalytic activity/Vol] 67 U/L Normal 34-104 [facility] Comment on above: Performed By: #### H S TROP, PTT, CMP, DDIMER, BNP, CK, PT, CBC #### [facility] [address] [place] [address] Aspartate aminotransferase [ Enzymatic activity/volume] in Serum or PlasmaOrdered By: Kwesi Dudley on 01-31-2024 AST [Catalytic activity/Vol] 17 U/L Normal 13-39 [facility] Comment on above: Performed By: #### H S TROP, PTT, CMP, DDIMER, BNP, CK, PT, CBC #### [address] Automated basophil %Ordered By: Kwesi Dudley on 01-31-2024 Basophils/100 WBC (Bld) 0.6 % Normal . [facility] Comment on above: Performed By: #### H S TROP, PTT, CMP, DDIMER, BNP, CK, PT, CBC #### [facility] [address] [place] [address] Automated basophil countOrde red By: Kwesi Dudley on 01-31-2024 Basophils (Bld) [#/Vol] 0.1 10*3/uL Normal 0.0-0.2 [facility] Comment on above: Result Comment: PERF ORMED BY: [place] [address] PATHOLOGIST [employer]ATEGY DIRECTOR CARLOS HITCHCOCK M.D. Performed By: #### H S TROP, PTT, CMP, DDIMER, BNP, CK, PT, CBC #### [address] Automated blood monocyte cou ntOrdered By: Kwesi Dudley on 01-31-2024 Monocytes (Bld) [#/Vol] 1.3 10*3/uL High 0.0-0.8 [facility] Comment on above: Performed By: #### H S TROP, PTT, CMP, DDIMER, BNP, CK, PT, CBC #### [address] Automated eosinophil %Ordere d By: Kwesi Dudley on 01-31-2024 Eosinophils/100 WBC (Bld) 0.3 % Normal . [facility] Comment on above: Performed By: #### H S TROP, PTT, CMP, DDIMER, BNP, CK, PT, CBC #### [address] Automated eosinophil countOr dered By: Kwesi Dudley on 01-31-2024 Eosinophils (Bld) [#/Vol] 0.1 10*3/uL Normal 0.0-0.45 [facility] Comment on above: Performed By: #### H S TROP, PTT, CMP, DDIMER, BNP, CK, PT, CBC #### [address] Automated monocyte %Ordered By: Kwesi Dudley on 01-31-2024 Monocytes/100 WBC (Bld) 7.5 % Normal . [facility] Comment on above: Performed By: #### H S TROP, PTT, CMP, DDIMER, BNP, CK, PT, CBC #### [address] Automated neutrophil %Ordere d By: Kwesi Dudley on 01-31-2024 Neutrophils/100 WBC (Bld) 79.8 % Normal . [facility] Comment on above: Performed By: #### H S TROP, PTT, CMP, DDIMER, BNP, CK, PT, CBC #### [address] [place] [address] [place] BNP ser/plasOrdered By: Delgado Dudley on 01-31-2024 Natriuretic peptide B (Bld) [Mass/Vol] 30.0 pg/mL Normal 5-100 [facility] Comment on above: Result Comment: PERF ORMED BY: [place] [address] PATHOLOGIST [employer] STRATEGY DIRECTOR CARLOS HITCHCOCK M.D. Performed By: #### H S TROP, PTT, CMP, DDIMER, BNP, CK, PT, CBC #### [address] Bilirubin Test strip Ql (U)O rdered By: Kwesi Dudley on 01-31-2024 Bilirubin Ql (U) Negative Negative [facility] Bilirubin.total [Mass/volume ] in Serum or PlasmaOrdered By: Kwesi Dudley on 01-31-2024 Bilirubin [Mass/Vol] 0.5 mg/dL Normal 0.3-1.0 [facility] Comment on above: Performed By: #### H S TROP, PTT, CMP, DDIMER, BNP, CK, PT, CBC #### [address] Calcium [Mass/volume] in Ser um or PlasmaOrdered By: Kwesi Dudley on 01-31-2024 Calcium [Mass/Vol] 9.6 mg/dL Normal 8.6-10.3 [facility] Comment on above: Performed By: #### H S TROP, PTT, CMP, DDIMER, BNP, CK, PT, CBC #### [address] Carbon dioxide, total [Moles /volume] in Serum or PlasmaOrdered By: Kwesi Dudley on 01-31-2024 CO2 [Moles/Vol] 30.1 mmol/L Normal 21.0-31.0 [facility] Comment on above: Performed By: #### H S TROP, PTT, CMP, DDIMER, BNP, CK, PT, CBC #### [address] Chloride [Moles/volume] in S marty or PlasmaOrdered By: Kwesi Dudley on 01-31-2024 Chloride [Moles/Vol] 101 mmol/L Normal 98-107 [facility] Comment on above: Performed By: #### H S TROP, PTT, CMP, DDIMER, BNP, CK, PT, CBC #### [address] Color of Urine by AutoOrdere d By: Kwesi Dudley on 01-31-2024 Color (U) Colorless Normal Yellow [facility] Comment on above: Order Comment: Name Collection Type:: Clean-Voided Midstream Performed By: #### U A, UHCG #### [address] Complete Blood Count Auto Di ffon 01-31-2024 Mean Corpuscular HGB Conc 34.6 g/dL Normal 32.0-35.0 [facility] Comment on above: Performed By: #### H S TROP, PTT, CMP, DDIMER, BNP, CK, PT, CBC #### [address] Monocytes/100 WBC (Bld) 14.85 % Normal 0.00-20.00 [facility] [facility], [facility] Comment on above: Performed By: #### H S TROP, PTT, CMP, DDIMER, BNP, CK, PT, CBC #### [address] NRBC% 0.0 /100{WBC} Normal 0-0.5 [facility] Comment on above: Performed By: #### H S TROP, PTT, CMP, DDIMER, BNP, CK, PT, CBC #### [address] Comprehensive Metabolic Pane robinson 01-31-2024 Albumin [Mass/Vol] 4.7 g/dL Normal 3.5-5.7 [facility] Comment on above: Performed By: #### H S TROP, PTT, CMP, DDIMER, BNP, CK, PT, CBC #### [place] [address] Creatinine Clr [facility] 119.17 Normal [facility] Comment on above: Result Comment: PERF ORMED BY: [place] [address] PATHOLOGIST BUSINESS CONTINUITY STRATEGY DIRECTOR CARLOS HITCHCOCK M.D. Performed By: #### H S TROP, PTT, CMP, DDIMER, BNP, CK, PT, CBC #### [address] GFR/1.73 sq M.predicted MDRD (S/P/Bld) [Vol rate/Area] mL/min/{1.73_m2} Normal [facility] Comment on above: Performed By: #### H S TROP, PTT, CMP, DDIMER, BNP, CK, PT, CBC #### [address] Creatine kinase [Enzymatic a ctivity/volume] in Serum or PlasmaOrdered By: Kwesi [place] on 01-31-2024 CK [Catalytic activity/Vol] 76 U/L Normal 30-223 [facility] Comment on above: Performed By: #### H S TROP, PTT, CMP, DDIMER, BNP, CK, PT, CBC #### [address] Creatinine [Mass/volume] in Serum or PlasmaOrdered By: Kwesi [place] on 01-31-2024 Creatinine [Mass/Vol] 0.80 mg/dL Normal 0.60-1.20 [facility] Comment on above: Performed By: #### H S TROP, PTT, CMP, DDIMER, BNP, CK, PT, CBC #### [address] D-Dimer High Sensitivityon 0 01-31-2024 D-Dimer [...] coagulation studies. Please contact the laboratory at [phone] for redraw instructions. PERFORMED BY: [place] [address] PATHOLOGIST BUSINESS CONTINUITY STRATEGY DIRECTOR CARLOS HITCHCOCK M.D. Performed By: #### H S TROP, PTT, CMP, DDIMER, BNP, CK, PT, CBC #### [place] [id number] [facility] ECG 12 lead ECGon 01-31-2024 ECG 12 lead ECG [facility] [place] [address] [place] [address] Electrocardiograph Report Signed Patient: Samantha Benajmin MR#: [id number] : 1995 Acct:[id number] Age/Sex: 28 / F ADM Date: 01/31/24 Loc: ER Room: Type: [facility] ER Attending Dr: Ordering Provider: Kwesi [place] DO Date of Service: 01/31/2408/25/1404 ECG/ECG [...] By: MUS Signed By Kwesi [place] DO 1923 Normal [facility] Erythrocyte distribution wid th [Ratio] by Automated countOrdered By: Kwesi [place] on 01-31-2024 Erythrocyte distribution width (RBC) [Ratio] 12.4 % Normal 11.9-15.3 [facility] Comment on above: Performed By: #### H S TROP, PTT, CMP, DDIMER, BNP, CK, PT, CBC #### [facility] [address] Erythrocytes [#/volume] in B lood by Automated countOrdered By: Kwesi [place] on 01-31-2024 RBC (Bld) [#/Vol] 4.93 10*6/uL Normal 3.60-5.00 [facility] Comment on above: Performed By: #### H S TROP, PTT, CMP, DDIMER, BNP, CK, PT, CBC #### [facility] [address] [place] [id number] [facility] Fibrin D-dimer [Presence] in Platelet poor plasma by Latex agglutinationOrdered By: Kwesi [place] on 01-31-2024 Fibrin D-dimer LA Ql (PPP) < 200 ng/mL 0-243 [facility] Comment on above: The reference range [...] coagulation studies. Please contact the laboratory at [phone] for redraw instructions. Glucose [Mass/volume] in Ser um or PlasmaOrdered By: Kwesi [place] on 01-31-2024 Glucose [Mass/Vol] 91 mg/dL Normal 70-100 [facility] Comment on above: ADA recommended refe rence rangeRandom Glucose Reference Range is dependent on time and content of last meal. Glucose of more than 200 mg/dL in a nonstressed, ambulatory subject supports the diagnosis of Diabetes Mellitus. Result Comment: [facility] Glucose Reference Range is dependent on time and content of last meal. Glucose of more than 200 mg/dL in a nonstressed, ambulatory subject supports the diagnosis of Diabetes Mellitus. ADA recommended reference range Performed By: #### H S TROP, PTT, CMP, DDIMER, BNP, CK, PT, CBC #### [address] Glucose [Mass/volume] in Uri ne by Test stripOrdered By: Kwesi [place] on 01-31-2024 Glucose Test strip (U) [Mass/Vol] Normal mg/dL Normal [facility] HCG ( test) IA.rapi d Ql (U)Ordered By: Kwesi [place] on 01-31-2024 HCG ( test) Ql (U) Positive High [facility] HCG,Urineon 01-31-2024 Beta HCG ( test) Ql (U) Positive High [facility] Comment on above: Order Comment: Name Collection Type:: Clean-Voided Midstream Result Comment: PERF ORMED BY: [place] [address] PATHOLOGIST BUSINESS CONTINUITY STRATEGY DIRECTOR CARLOS HITCHCOCK M.D. Performed By: #### H S TROP, PTT, CMP, DDIMER, BNP, CK, PT, CBC #### [address] Hematocrit [Volume Fraction] of Blood by Automated countOrdered By: Kwesi [place] on 01-31-2024 Hematocrit (Bld) [Volume fraction] 45.1 % Normal 34.0-46.4 [facility] Comment on above: Performed By: #### H S TROP, PTT, CMP, DDIMER, BNP, CK, PT, CBC #### [address] Hemoglobin Test strip Ql (U) Ordered By: Kwesi [place] on 01-31-2024 Hemoglobin Ql (U) Negative Negative [facility] Hemoglobin [Mass/volume] in BloodOrdered By: Kwesi [place] on 01-31-2024 Hemoglobin (Bld) [Mass/Vol] 15.6 g/dL High 11.8-15.4 [facility] Comment on above: Performed By: #### H S TROP, PTT, CMP, DDIMER, BNP, CK, PT, CBC #### [facility] [address] [place] [address] [place] INR in Platelet poor plasma by Coagulation assayOrdered By: Kwesi [place] on 01-31-2024 INR Coag (PPP) [Relative time] 1.2 {INR} Normal [facility] Comment on above: INR Therapeutic Rang [...] BNP, CK, PT, CBC #### [facility] [address] [place] [address] [place] Ketones [Presence] in Urine by Test stripOrdered By: Kwesi [place] on 01-31-2024 Ketones Ql (U) Negative Normal Negative [facility] Comment on above: Order Comment: Name Collection Type:: Clean-Voided Midstream Performed By: #### U A, CG #### [facility] [address] [place] [address] [place] Leukocyte esterase [Presence ] in Urine by Test stripOrdered By: Kwesi [place] on 01-31-2024 Leukocyte esterase Test strip Ql (U) Negative Normal Negative [facility] Comment on above: Order Comment: Name Collection Type:: Clean-Voided Midstream Performed By: #### U A, UHCG #### [facility] [address] Leukocytes [#/volume] correc edna for nucleated erythrocytes in Blood by Automated counOrdered By: Kwesi [place] on 01-31-2024 WBC corrected for nucl RBC Auto (Bld) [#/Vol] 17.5 10*3/uL High 3.8-11.6 [facility] Leukocytes [#/volume] in Blo od by Automated countOrdered By: Kwesi [place] on 01-31-2024 WBC (Bld) [#/Vol] 17.5 10*3/uL High 3.8-11.6 [facility] Comment on above: Performed By: #### H S TROP, PTT, CMP, DDIMER, BNP, CK, PT, CBC #### [facility] [address] [place] [address] Lymphocytes [#/volume] in Bl ood by Automated countOrdered By: Kwesi [place] on 01-31-2024 Lymphocytes (Bld) [#/Vol] 2.1 10*3/uL Normal 1.00-4.8 [facility] Comment on above: Performed By: #### H S TROP, PTT, CMP, DDIMER, BNP, CK, PT, CBC #### [facility] [address] [place] [address] Lymphocytes/100 leukocytes i n Blood by Automated countOrdered By: Kwesi [place] on 01-31-2024 Lymphocytes/100 WBC (Bld) 11.8 % Normal . [facility] Comment on above: Performed By: #### H S TROP, PTT, CMP, DDIMER, BNP, CK, PT, CBC #### [facility] [address] [place] [address] [place] MCH [Entitic mass] by Automa edna countOrdered By: Kwesi [place] on 01-31-2024 MCH (RBC) [Entitic mass] 31.7 pg Normal 24.7-34.3 [facility] Comment on above: Performed By: #### H S TROP, PTT, CMP, DDIMER, BNP, CK, PT, CBC #### [facility] [address] MCHC Auto (RBC) [Mass/Vol]Or dered By: Kwesi [place] on 01-31-2024 MCHC (RBC) [Mass/Vol] 34.6 g/dL 32.0-35.0 [facility] MCV [Entitic volume] by Auto mated countOrdered By: Kwesi [place] on 01-31-2024 MCV (RBC) [Entitic vol] 91.4 fL Normal 80-100 [facility] Comment on above: Performed By: #### H S TROP, PTT, CMP, DDIMER, BNP, CK, PT, CBC #### [facility] [address] Monocyte distribution width [Entitic volume] in Blood by AutomatedOrdered By: Kwesi [place] on 01-31-2024 Monocyte distribution width Auto (Bld) [Entitic vol] 14.85 % 0.00-20.00 [facility] Neutrophils [#/volume] in Bl ood by Automated countOrdered By: Kwesi [place] on 01-31-2024 Neutrophils (Bld) [#/Vol] 14.0 10*3/uL High 1.8-7.7 [facility] Comment on above: Performed By: #### H S TROP, PTT, CMP, DDIMER, BNP, CK, PT, CBC #### [facility] [address] Nitrite Test strip Ql (U)Ord ered By: Kwesi [place] on 01-31-2024 Nitrite Ql (U) Negative Negative [facility] No Panel InformationOrdered By: Kwesi [place]ley on 01-31-2024 Estimated GFR (CKD-EPI) > 60.0 mL/Min [facility] Creatinine Clearance (Chem 119.17 [facility] Nucleated erythrocytes [Pres ence] in Blood by Automated countOrdered By: Kwesi [place] on 01-31-2024 Nucleated RBC Auto Ql (Bld) 0.0 /100{WBC} 0-0.5 [facility] Partial Thromboplastin Timeo n 01-31-2024 aPTT Coag (Bld) [Time] 26.1 s Normal 25.1-36.5 [facility] Comment on above: Result Comment: A he matocrit value greater than 55% may lead to inaccurate results in coagulation testing. Patients having hematocrit values >55% require a special collection tube for coagulation studies. Please contact the laboratory at [phone] for redraw instructions. Performed By: #### H S TROP, PTT, CMP, DDIMER, BNP, CK, PT, CBC #### [address] Platelet mean volume [Entiti c volume] in Blood by Automated countOrdered By: Kwesi [place] on 01-31-2024 Platelet mean volume (Bld) [Entitic vol] 8.7 fL Normal 6.3-10.7 [facility] Comment on above: Performed By: #### H S TROP, PTT, CMP, DDIMER, BNP, CK, PT, CBC #### [address] Platelets [#/volume] in Bloo d by Automated countOrdered By: Kwesi [place]ley on 01-31-2024 Platelets (Bld) [#/Vol] 297 10*3/uL Normal 150-450 [facility] Comment on above: Performed By: #### H S TROP, PTT, CMP, DDIMER, BNP, CK, PT, CBC #### [address] Potassium [Moles/volume] in Serum or PlasmaOrdered By: Kwesi [place]ley on 01-31-2024 Potassium [Moles/Vol] 3.4 mmol/L Low 3.5-5.1 [facility] Comment on above: Performed By: #### H S TROP, PTT, CMP, DDIMER, BNP, CK, PT, CBC #### [address] Protein Test strip (U) [Mass /Vol]Ordered By: Kwesi [place]ley on 01-31-2024 Protein (U) [Mass/Vol] Negative Negative [facility] Protein [Mass/volume] in Ser um or PlasmaOrdered By: Kwesi [place]ley on 01-31-2024 Protein [Mass/Vol] 7.7 g/dL Normal 6.4-8.9 [facility] Comment on above: Performed By: #### H S TROP, PTT, CMP, DDIMER, BNP, CK, PT, CBC #### [facility] [address] [place] [address] Prothrombin time (PT)Ordered By: Kwesi [place]ley on 01-31-2024 PT Coag (PPP) [Time] 14.0 s High 9.0-12.9 [facility] Comment on above: A hematocrit value g reater than 55% may lead to inaccurate results in coagulation testing. Patients having hematocrit values >55% require a special collection tube for coagulation studies. Please contact the laboratory at [phone] for redraw instructions. Result Comment: A he matocrit value greater than 55% may lead to inaccurate results in coagulation testing. Patients having hematocrit values >55% require a special collection tube for coagulation studies. Please contact the laboratory at [phone] for redraw instructions. Performed By: #### H S TROP, PTT, CMP, DDIMER, BNP, CK, PT, CBC #### [facility] [address] [place] [address] Serum globulin measurement b y calculation (mass/volume)Ordered By: Kwesi [place] on 01-31-2024 Globulin (S) [Mass/Vol] 3.0 g/dL [facility] Comment on above: Performed By: #### H S TROP, PTT, CMP, DDIMER, BNP, CK, PT, CBC #### [facility] [address] [place] [address] Serum or plasma albumin/glob ulin mass ratioOrdered By: Kwesi [place]ley on 01-31-2024 Albumin/Globulin [Mass ratio] 1.6 {ratio} [facility] Comment on above: Performed By: #### H S TROP, PTT, CMP, DDIMER, BNP, CK, PT, CBC #### [address] Serum or plasma anion gap de terminationOrdered By: Kwesi [place]ley on 01-31-2024 Anion gap [Moles/Vol] 8.3 mmol/L Normal 6.0-15.0 [facility] Comment on above: Performed By: #### H S TROP, PTT, CMP, DDIMER, BNP, CK, PT, CBC #### [facility] [address] Sodium [Moles/volume] in Ser um or PlasmaOrdered By: Kwesi [place]ley on 01-31-2024 Sodium [Moles/Vol] 136 mmol/L Normal 136-145 [facility] Comment on above: Performed By: #### H S TROP, PTT, CMP, DDIMER, BNP, CK, PT, CBC #### [address] Specific gravity Test strip (U) [Rel density]Ordered By: Kwesi [place] on 01-31-2024 Specific gravity (U) [Rel density] 1.005 1.001-1.03 0 [facility] Troponin I High Sensitivityo n 01-31-2024 Troponin I High Sensitivity 3.5 pg/mL Normal 0.0-15.0 [facility] Comment on above: Result Comment: PERF ORMED BY: [place] [address] PATHOLOGIST BUSINESS CONTINUITY STRATEGY DIRECTOR CARLOS HITCHCOCK M.D. Performed By: #### H S TROP, PTT, CMP, DDIMER, BNP, CK, PT, CBC #### [address] Troponin I.cardiac [Mass/vol ume] in Serum or Plasma by Detection limit <= 0.01 ng/Ordered By: Kwesi Dudley on 01-31-2024 Troponin I.cardiac DL <= 0.01 ng/mL [Mass/Vol] 3.5 pg/mL 0.0-15.0 [facility] Urea nitrogen [Mass/volume] in Serum or PlasmaOrdered By: Kwesi Dudley on 01-31-2024 Urea nitrogen [Mass/Vol] 10 mg/dL Normal 7-25 [facility] Comment on above: Performed By: #### H S TROP, PTT, CMP, DDIMER, BNP, CK, PT, CBC #### [facility] [address] Urinalysison 01-31-2024 Bilirubin,Urine Negative Normal Negative [facility] Comment on above: Order Comment: Name Collection Type:: Clean-Voided Midstream Performed By: #### U A, UHCG #### [facility] [address] Glucose Ql (U) Normal Normal Normal [facility] Comment on above: Order Comment: Name Collection Type:: Clean-Voided Midstream Performed By: #### U A, UHCG #### [place] [address] [place] Nitrite,Urine Negative Normal Negative [facility] Comment on above: Order Comment: Name Collection Type:: Clean-Voided Midstream Performed By: #### U A, UHCG #### [address] Occult Blood,Urine Negative Normal Negative [facility] Comment on above: Order Comment: Name Collection Type:: Clean-Voided Midstream Performed By: #### U A, UHCG #### [place] [address] [place] Protein,Urine Negative Normal Negative [facility] Comment on above: Order Comment: Name Collection Type:: Clean-Voided Midstream Performed By: #### U A, UHCG #### [address] Specificy Ord,Urine 1.005 Normal 1.001-1.03 0 [facility] Comment on above: Order Comment: Name Collection Type:: Clean-Voided Midstream Performed By: #### U A, UHCG #### [place] [address] [place] Urobilinogen,Urine Normal Normal Normal [facility] Comment on above: Order Comment: Name Collection Type:: Clean-Voided Midstream Performed By: #### U A, UHCG #### [address] Urine appearanceOrdered By: Kwesi Dudley on 01-31-2024 Appearance (U) Clear Normal Clear [facility] Comment on above: Order Comment: Name Collection Type:: Clean-Voided Midstream Performed By: #### U A, UHCG #### [facility] [address] [place] [id number] [facility] Urobilinogen Test strip (U) [Mass/Vol]Ordered By: Kwesi Luis Enrique on 01-31-2024 Urobilinogen (U) [Mass/Vol] Normal mg/dL Normal [facility] pH of Urine by Test stripOrd ered By: Kwesi Luis Enrique on 01-31-2024 pH (U) 6.5 [pH] Normal 5.0-9.0 [facility] Comment on above: Order Comment: Name Collection Type:: Clean-Voided Midstream Performed By: #### U A, UHCG #### [facility] [address] [place] [address] PAP ACOG PANEL 2: 23 to 31on 10-14-2021 . . Normal [facility] Comment on above: Performed By: #### P TT #### [facility] [address] [address] Kaela Dimas Age Gdln ACOG Testing - Normal [facility] Comment on above: Performed By: #### P TT #### [facility] [address] [address] [id number] Kaela Dimas DIAGNOSIS: Comment Normal [facility] Comment on above: Result Comment: NEGA TIVE FOR INTRAEPITHELIAL LESION OR MALIGNANCY. CELLULAR CHANGES ASSOCIATED WITH INFLAMMATION ARE PRESENT. Performed By: #### P TT #### [facility] [address] [place], [place] [address] Kaela Dimas Methodology: Comment Normal [facility] Comment on above: Result Comment: This liquid based ThinPrep(R) pap test was screened with the use of an image guided system. Performed By: #### P TT #### [facility] [address] [id number] Kaela Dimas Note: Comment Normal [facility] Comment on above: Result Comment: The Pap smear is a screening test designed to aid in the detection of premalignant and malignant conditions of the uterine cervix. It is not a diagnostic procedure and should not be used as the sole means of detecting cervical cancer. Both false-positive and false-negative reports do occur. . Performed By: #### P TT #### [facility] [address] [place] [address] Kaelastephanie Dimsa Performed by: Comment Normal [facility] Comment on above: Result Comment: Nancy Collins, Unemployment Benefits Claims Taker (ASCP) Performed By: #### P TT #### [facility] [address] [place] [address] Kaela Judie Reflex Criteria: Comment Normal [facility] Comment on above: Result Comment: The HPV DNA reflex criteria were not met with this specimen result therefore, no HPV testing was performed. . Performed By: #### P TT #### [facility] [address] [place] [address] Kaela Judie Specimen adequacy: Comment Normal [facility] Comment on above: Result Comment: Sati sfactory for evaluation. Endocervical and/or squamous metaplastic cells (endocervical component) are present. Performed By: #### P TT #### [facility] [address] [place] [address] Kaela Judie CBC AUTO DIFFon 02-07-2021 BASO # 0.1 103/ul Normal 0.0-0.1 [facility] Comment on above: Performed By: #### C BC #### [facility] [address] [place] [address] Kaela Judie Basophils/100 WBC (Bld) 0.3 % Normal 0.2-2.0 [facility] Comment on above: Performed By: #### C BC #### [facility] [address] [place] [address] Kaela Judie EO # 0.1 103/ul Normal 0.0-0.7 [facility] Comment on above: Performed By: #### C BC #### [facility] [address] [place] [address] Kaela Judie Eosinophils/100 WBC (Bld) 0.5 % Critically low 0.9-7.0 [facility] Comment on above: Performed By: #### C BC #### [facility] [address] [id number] Kaela Dimas Erythrocyte distribution width (RBC) [Ratio] 12.3 % Normal 11.0-15.0 [facility] Comment on above: Performed By: #### C BC #### [facility] [address] [id number] Kaelastephanie Dimas Hematocrit (Bld) [Volume fraction] 33.8 % Critically low 36.0-48.0 [facility] Comment on above: Performed By: #### C BC #### [facility] [address] [place] [address] Kaela Judie Hemoglobin (Bld) [Mass/Vol] 11.6 g/dL Critically low 12.0-16.0 [facility] Comment on above: Performed By: #### C BC #### [facility] [address] [place] [address] Kaela Judie IG # 0.20 10e3/ul Critically high 0.00-0.03 [facility] Comment on above: Performed By: #### C BC #### [facility] [address] [place] [address] Kaela Judie IG % 1.2 % Critically high 0.0-0.5 [facility] Comment on above: Performed By: #### C BC #### [facility] [address] [place] [address] Kaela Judie LYMPH # 1.6 103/ul Normal 1.2-3.8 [facility] Comment on above: Performed By: #### C BC #### [facility] [address] [place] [address] Kaela Dimas Lymphocytes/100 WBC (Bld) 9.2 % Critically low 20.5-60.0 [facility] Comment on above: Performed By: #### C BC #### [facility] [address] [place], [place] [id number] Kaela Dimas MANUAL DIFF REQ NO Normal [facility] Comment on above: Performed By: #### C BC #### [facility] [address] [id number] Kaela Dimas MCH (RBC) [Entitic mass] 30.8 pg Normal 26.7-34.0 [facility] Comment on above: Performed By: #### C BC #### [facility] [address] [id number] Kaela Dimas MCHC (RBC) [Mass/Vol] 34.3 g/dL Normal 29.9-35.2 [facility] Comment on above: Performed By: #### C BC #### [facility] [address] [id number] Kaelastephanie Dimas MCV (RBC) [Entitic vol] 89.7 fL Normal 81.0-99.0 [facility] Comment on above: Performed By: #### C BC #### [facility] [address] [place] [address] Kaela Dimas MONO # 0.9 103/ul Critically high 0.3-0.8 [facility] Comment on above: Performed By: #### C BC #### [facility] [address] [place], [place] [id number] Kaela Dimas Monocytes/100 WBC (Bld) 5.5 % Normal 1.7-12.0 [facility] Comment on above: Performed By: #### C BC #### [facility] [address] [place] [address] Kaela Dimas NEUT # 14.1 103/ul Critically high 1.4-6.5 [facility] Comment on above: Performed By: #### C BC #### [facility] [address] [place], [place] [id number] Kaela Judie Neutrophils/100 WBC (Bld) 83.3 % Critically high 43.0-75.0 [facility] Comment on above: Performed By: #### C BC #### [facility] [address] [place], [place] [id number] Kaelastephanie Dimas Platelet mean volume (Bld) [Entitic vol] 11.0 fL Normal 9.5-13.5 [facility] [facility] Comment on above: Performed By: #### C BC #### [facility] [address] [place], [place] [address] Kaela Dimas PLT 192 103/ul Normal 150-450 [facility] Comment on above: Performed By: #### C BC #### [facility] [address] [place], [place] [id number] Kaela Dimas RBC 3.77 106/ul Critically low 4.20-5.40 [facility] Comment on above: Performed By: #### C BC #### [facility] [address] [place], [place] [id number] Kaela Dimas WBC 16.9 103/ul Critically high 4.0-11.0 [facility] Comment on above: Performed By: #### C BC #### [facility] [address] [place] [address] Kaela Dimas ASYMPTOMATIC COVID-19 ANTIGE Non 02-05-2021 EUA Statement SEE BELOW Normal [facility] Comment on above: Result Comment: This [...] sooner. Performed By: #### G TT3P #### [facility] [address] [place] [address] Kaela Dimas SARS-CoV-2 (COVID-19) RNA RIGOBERTO+probe Ql (Unsp spec) Negative Normal NEGATIVE [facility] Comment on above: Result Comment: Nega tive results are presumptive. They do not preclude infection and should not be used as the sole basis for treatment decisions. Additional confirmatory testing by a molecular method should be considered. Performed By: #### G TT3P #### [facility] [address] [place], [place] [id number] Kaela Judie CBC AUTO DIFFon 02-05-2021 BASO # 0.1 103/ul Normal 0.0-0.1 [facility] Comment on above: Performed By: #### C BC #### [facility] [address] [place] [id number] Kaela Judie Basophils/100 WBC (Bld) 0.3 % Normal 0.2-2.0 [facility] Comment on above: Performed By: #### C BC #### [facility] [address] [place] [address] Kaela Judie EO # 0.1 103/ul Normal 0.0-0.7 [facility] Comment on above: Performed By: #### C BC #### [facility] [address] [place], [place] [id number] Kaela Judie Eosinophils/100 WBC (Bld) 0.3 % Critically low 0.9-7.0 [facility] Comment on above: Performed By: #### C BC #### [facility] [address] [place] [address] Kaela Judie Erythrocyte distribution width (RBC) [Ratio] 12.0 % Normal 11.0-15.0 [facility] Comment on above: Performed By: #### C BC #### [facility] [address] [place], [place] [id number] Kaela Judie Hematocrit (Bld) [Volume fraction] 36.9 % Normal 36.0-48.0 [facility] Comment on above: Performed By: #### C BC #### [facility] [address] [place], [place] [id number] Kaela Judie Hemoglobin (Bld) [Mass/Vol] 12.7 g/dL Normal 12.0-16.0 [facility] Comment on above: Performed By: #### C BC #### [facility] [address] [place] [address] Kaela Judie IG # 0.19 10e3/ul Critically high 0.00-0.03 [facility] Comment on above: Performed By: #### C BC #### [facility] [address] [place] [id number] Kaela Judie IG % 1.0 % Critically high 0.0-0.5 [facility] Comment on above: Performed By: #### C BC #### [facility] [address] [place] [id number] Kaela Judie LYMPH # 1.4 103/ul Normal 1.2-3.8 [facility] Comment on above: Performed By: #### C BC #### [facility] [address] [place], [place] [id number] Kaela Judie Lymphocytes/100 WBC (Bld) 7.6 % Critically low 20.5-60.0 [facility] Comment on above: Performed By: #### C BC #### [facility] [address] [place] [address] Kaela Judie MANUAL DIFF REQ NO Normal [facility] Comment on above: Performed By: #### C BC #### [facility] [address] [place] [address] Kaela Judie MCH (RBC) [Entitic mass] 30.5 pg Normal 26.7-34.0 [facility] Comment on above: Performed By: #### C BC #### [facility] [address] [place] [address] Kaela Judie MCHC (RBC) [Mass/Vol] 34.4 g/dL Normal 29.9-35.2 [facility] Comment on above: Performed By: #### C BC #### [facility] [address] [place] [address] Kaela Judie MCV (RBC) [Entitic vol] 88.5 fL Normal 81.0-99.0 [facility] Comment on above: Performed By: #### C BC #### [facility] [address] [place] [address] Kaela Judie MONO # 1.0 103/ul Critically high 0.3-0.8 [facility] Comment on above: Performed By: #### C BC #### [facility] [address] [place], [place] [id number] Kaela Judie Monocytes/100 WBC (Bld) 5.5 % Normal 1.7-12.0 [facility] Comment on above: Performed By: #### C BC #### [facility] [address] [place], [place] [id number] Kaela Dimas NEUT # 15.7 103/ul Critically high 1.4-6.5 [facility] Comment on above: Performed By: #### C BC #### [facility] [address] [place] [address] Kaela Dimas Neutrophils/100 WBC (Bld) 85.3 % Critically high 43.0-75.0 [facility] Comment on above: Performed By: #### C BC #### [facility] [address] [place] [address] Kaela Dimas Platelet mean volume (Bld) [Entitic vol] 11.8 fL Normal 9.5-13.5 [facility] Comment on above: Performed By: #### C BC #### [facility] [address] [place] [address] Kaelastephanie Sahuen PLT 226 103/ul Normal 150-450 [facility] Comment on above: Performed By: #### C BC #### [facility] [address] [place], [place] [id number] Kaelastephanie Sahuen RBC 4.17 106/ul Critically low 4.20-5.40 [facility] Comment on above: Performed By: #### C BC #### [facility] [address] [place], [place] [id number] Kaela Dimas WBC 18.5 103/ul Critically high 4.0-11.0 [facility] Comment on above: Performed By: #### C BC #### [facility] [address] [place], [place] [id number] Kaela Dimas DRUG SCREEN RAPID (URINE)on 02-05-2021 AMP Negative Normal NEGATIVE [facility] Comment on above: Performed By: #### D SEJALRPD #### [facility] [address] [place], [place] [id number] Kaela Judie BAR Negative Normal NEGATIVE [facility] Comment on above: Performed By: #### D SEJALRPD #### [facility] [address] [place] [address] Kaela Judie BUP Negative Normal NEGATIVE [facility] Comment on above: Performed By: #### D RUGRPD #### [facility] [address] [place] [address] Kaela Judie BZO Negative Normal NEGATIVE [facility] Comment on above: Performed By: #### D RUGRPD #### [facility] [address] [place] [address] Kaela Judie JERRY Negative Normal NEGATIVE [facility] Comment on above: Performed By: #### D RUGRPD #### [facility] [address] [place] [address] Kaela Judie CUT-OFFS SEE BELOW Normal [facility] Comment on above: Result Comment: [...] ng/mL Performed By: #### D RUGRPD #### [facility] [address] [place] [address] Kaela Judie DRUG CUT HEADER DRUG CLASS TEST SYST EM CUT-OFF CONCENTRATIONS ARE FOLLOWS: Normal [facility] Comment on above: Performed By: #### D RUGRPD #### [facility] [address] [place] [address] Kaela Judie mAMP Negative Normal NEGATIVE [facility] Comment on above: Performed By: #### D RUGRPD #### [facility] [address] [place] [address] Kaela Judie MTD Negative Normal NEGATIVE [facility] Comment on above: Performed By: #### D RUGRPD #### [facility] [address] [place] [address] Kaela Judie OPI Negative Normal NEGATIVE [facility] Comment on above: Performed By: #### D RUGRPD #### [facility] [address] [place] [address] Kaela Judie OXY Negative Normal NEGATIVE [facility] Comment on above: Performed By: #### D RUGRPD #### [facility] [address] [place] [address] Kaela Judie PCP Negative Normal NEGATIVE [facility] Comment on above: Performed By: #### D RUGRPD #### [facility] [address] [place] [address] Kaela Judie PPX Negative Normal NEGATIVE [facility] Comment on above: Performed By: #### D RUGRPD #### [facility] [address] [place] [address] Kaela Judie TCA Negative Normal NEGATIVE [facility] Comment on above: Performed By: #### D RUGRPD #### [facility] [address] [place] [address] Kaela Judie THC Negative Normal NEGATIVE [facility] Comment on above: Performed By: #### D RUGRPD #### [facility] [address] [place] [address] Kaela Judie TYPE AND SCREENon 02-05-2021 TYPE AND SCREEN Negative Normal [facility] Comment on above: Performed By: #### P TT #### [facility] [address] [place] [address] Kaela Judie GROUP B STREP CULTUREon 07-0 S. agalactiae Ag Ql (Unsp spec) Culture Observations: NEGATIVE FOR GROUP B STREPTOCOCCUS. Normal [facility] Comment on above: Performed By: #### P TT #### [facility] [address] [place] [address] Kaela Judie US PREG BIOPHY W NON [...] by: MICHELLE LANE Date: 2021-01-30 08:23 Normal [facility] US PREG GROWTHon 01-30-2021 US [...] by: MICHELLE LANE Date: 2021-01-30 08:25 Normal [facility] US PREG BIOPHY W NON [...] MICHELLE LANE Date: 2021-01-23 07:22 Normal [facility] US PREG BIOPHY W NON STRESSo [...] by: MICHELLE LANE Date: 2021-01-16 07:31 Normal [facility] PROTEIN 24HR URINEon 021 T PROT, 24 HR UR 603.9 mg/24 hr Critically high 42.0-225.0 [facility] Comment on above: Performed By: #### G TT3P #### [facility] [address] [place] [address] Kaela Judie UR PROT 12.2 mg/dL Critically high <=12.0 [facility] Comment on above: Performed By: #### G TT3P #### [facility] [address] [place] [address] Kaela Judie UR TOT VOL 4950 ml/24 HR Normal [facility] Comment on above: Performed By: #### G TT3P #### [facility] [address] [place] [address] Kaela Judie CBC AUTO DIFFon 01-13-2021 BASO # 0.0 103/ul Normal 0.0-0.1 [facility] Comment on above: Performed By: #### G TT3P #### [facility] [address] [place], [place] [id number] Kaela Judie Basophils/100 WBC (Bld) 0.2 % Normal 0.2-2.0 [facility] Comment on above: Performed By: #### G TT3P #### [facility] [address] [place] [address] Kaela Judie EO # 0.1 103/ul Normal 0.0-0.7 [facility] Comment on above: Performed By: #### G TT3P #### [facility] [address] [place], [place] [id number] Kaela Judie Eosinophils/100 WBC (Bld) 0.6 % Critically low 0.9-7.0 [facility] Comment on above: Performed By: #### G TT3P #### [facility] [address] [place] [address] Kaela Judie Erythrocyte distribution width (RBC) [Ratio] 11.7 % Normal 11.0-15.0 [facility] Comment on above: Performed By: #### G TT3P #### [facility] [address] [place] [address] Kaela Judie Hematocrit (Bld) [Volume fraction] 34.5 % Critically low 36.0-48.0 [facility] Comment on above: Performed By: #### G TT3P #### [facility] [address] [place], [place] [id number] Kaela Judie Hemoglobin (Bld) [Mass/Vol] 12.1 g/dL Normal 12.0-16.0 [facility] Comment on above: Performed By: #### G TT3P #### [facility] [address] [place] [address] Kaela Judie IG # 0.20 10e3/ul Critically high 0.00-0.03 [facility] Comment on above: Performed By: #### G TT3P #### [facility] [address] [place] [address] Kaela Judie IG % 1.2 % Critically high 0.0-0.5 [facility] Comment on above: Performed By: #### G TT3P #### [facility] [address] [place] [address] Kaela Judie LYMPH # 1.5 103/ul Normal 1.2-3.8 [facility] Comment on above: Performed By: #### G TT3P #### [facility] [address] [place] [id number] Kaela Judie Lymphocytes/100 WBC (Bld) 8.6 % Critically low 20.5-60.0 [facility] Comment on above: Performed By: #### G TT3P #### [facility] [address] [place] [address] Kaela Judie MANUAL DIFF REQ NO Normal [facility] Comment on above: Performed By: #### G TT3P #### [facility] [address] [place] [address] Kaela Judie MCH (RBC) [Entitic mass] 30.6 pg Normal 26.7-34.0 [facility] Comment on above: Performed By: #### G TT3P #### [facility] [address] [place] [address] Kaelastephanie Dimas MCHC (RBC) [Mass/Vol] 35.1 g/dL Normal 29.9-35.2 [facility] Comment on above: Performed By: #### G TT3P #### [facility] [address] [place] [address] Kaela Judie MCV (RBC) [Entitic vol] 87.3 fL Normal 81.0-99.0 [facility] Comment on above: Performed By: #### G TT3P #### [facility] [address] [place] [address] Kaela Judie MONO # 1.2 103/ul Critically high 0.3-0.8 [facility] Comment on above: Performed By: #### G TT3P #### [facility] [address] [place], [place] [id number] Kaela Judie Monocytes/100 WBC (Bld) 6.6 % Normal 1.7-12.0 [facility] Comment on above: Performed By: #### G TT3P #### [facility] [address] [place] [id number] Kaela Dimas NEUT # 14.4 103/ul Critically high 1.4-6.5 [facility] Comment on above: Performed By: #### G TT3P #### [facility] [address] [place], [place] [id number] Kaela Dimas Neutrophils/100 WBC (Bld) 82.8 % Critically high 43.0-75.0 [facility] Comment on above: Performed By: #### G TT3P #### [facility] [address] [place] [address] Kaela Dimas Platelet mean volume (Bld) [Entitic vol] 12.1 fL Normal 9.5-13.5 [facility] Comment on above: Performed By: #### G TT3P #### [facility] [address] [place] [address] Kaela Judie PLT 216 103/ul Normal 150-450 [facility] Comment on above: Performed By: #### G TT3P #### [facility] [address] [place] [address] Kaela Judie RBC 3.95 106/ul Critically low 4.20-5.40 [facility] Comment on above: Performed By: #### G TT3P #### [facility] [address] [place] [address] Kaela Dimas WBC 17.4 103/ul Critically high 4.0-11.0 [facility] Comment on above: Performed By: #### G TT3P #### [facility] [address] [place], [place] [id number] Kaela Dimas CULTURE URINEon 01-13-2021 CULTURE URINE Culture Observations : LIGHT GROWTH OF MIXED GENITAL TINO. NO POTENTIAL PATHOGENS SEEN. Normal [facility] Comment on above: Performed By: #### P TT #### [facility] [address] [place] [address] Kaela Dimas LDHon 01-13-2021 LDH 194 U/L Normal 122-222 [facility] Comment on above: Performed By: #### U ELIZABETH, LDH #### [facility] [address] [place] [address] Kaela Judie PROF 14(COMP METB)on 021 Albumin [Mass/Vol] 2.7 g/dL Critically low 3.5-5.0 [facility] Comment on above: Performed By: #### G TT3P #### [facility] [address] [place], [place] [id number] Kaela Judie Albumin/Globulin [Mass ratio] 0.9 {ratio} Normal [facility] Comment on above: Performed By: #### G TT3P #### [facility] [address] [place], [place] [id number] Kaela Judie ALP [Catalytic activity/Vol] 134 U/L Critically high 38-126 [facility] Comment on above: Performed By: #### G TT3P #### [facility] [address] [place], [place] [id number] Kaela Judie ALT [Catalytic activity/Vol] 21 U/L Normal 9-52 [facility] Comment on above: Performed By: #### G TT3P #### [facility] [address] [place], [place] [id number] Kaela Judie Anion gap [Moles/Vol] 11.6 mmol/L Normal [facility] Comment on above: Performed By: #### G TT3P #### [facility] [address] [place] [address] Kaela Judie AST [Catalytic activity/Vol] 17 U/L Normal 14-36 [facility] Comment on above: Performed By: #### G TT3P #### [facility] [address] [place], [place] [id number] Kaela Judie Bilirubin [Mass/Vol] 0.2 mg/dL Normal 0.2-1.3 [facility] Comment on above: Performed By: #### G TT3P #### [facility] [address] [place], [place] [id number] Kaela Judie Calcium [Mass/Vol] 9.1 mg/dL Normal 8.4-10.2 [facility] Comment on above: Performed By: #### G TT3P #### [facility] [address] [place] [address] Kaela Judie Chloride [Moles/Vol] 106 mmol/L Normal 98-107 [facility] Comment on above: Performed By: #### G TT3P #### [facility] [address] [place] [address] Kaela Judie CO2 [Moles/Vol] 25.8 mmol/L Normal 22.0-30.0 [facility] Comment on above: Performed By: #### G TT3P #### [facility] [address] [place] [address] Kaela Judie Creatinine [Mass/Vol] 0.53 mg/dL Normal 0.52-1.04 [facility] Comment on above: Performed By: #### G TT3P #### [facility] [address] [place] [address] Kaela Judie EGFR-AF SUDANESE >60 Normal >=60 [facility] Comment on above: Performed By: #### G TT3P #### [facility] [address] [place] [address] Kaela Judie EGFR-NON AF SUDANESE >60 Normal >=60 [facility] Comment on above: Performed By: #### G TT3P #### [facility] [address] [place] [address] Kaela Judie Globulin (S) [Mass/Vol] 3.0 g/dL Normal [facility] Comment on above: Performed By: #### G TT3P #### [facility] [address] [place] [address] Kaela Judie Glucose [Mass/Vol] 85 mg/dL Normal 74-106 [facility] Comment on above: Performed By: #### G TT3P #### [facility] [address] [place] [address] Kaela Judie Potassium [Moles/Vol] 3.4 mmol/L Normal 3.4-5.0 [facility] Comment on above: Performed By: #### G TT3P #### [facility] [address] [place] [address] Kaela Judie Protein [Mass/Vol] 5.7 g/dL Critically low 6.1-8.2 Th [facility] Comment on above: Performed By: #### G TT3P #### [facility] [address] [place] [address] Kaela Judie Sodium [Moles/Vol] 140 mmol/L Normal 137-145 [facility] Comment on above: Performed By: #### G TT3P #### [facility] [address] [place] [address] Kaela Judie Urea nitrogen [Mass/Vol] 10.0 mg/dL Normal 7.0-17.0 [facility] Comment on above: Performed By: #### G TT3P #### [facility] [address] [place] [address] Kaela Judie Urea nitrogen/Creatinine [Mass ratio] 18.9 mg/mg Normal [facility] Comment on above: Performed By: #### G TT3P #### [facility] [address] [place] [address] Kaela Judie PTTon 01-13-2021 aPTT Coag (Bld) [Time] 23.6 s Normal 22.3-36.2 Th [facility] Comment on above: Performed By: #### P TT #### [facility] [address] [place] [address] Kaela Judie URIC ACID SERUMon 01-13-2021 Urate [Mass/Vol] 3.7 mg/dL Normal 2.5-6.2 [facility] Comment on above: Performed By: #### U ELIZABETH, LDH #### [facility] [address] [place] [address] Kaela Judie UA (CLEAN/CATCH) POSTMASTER/MICRO I F IND.on 01-12-2021 Bilirubin Ql (U) Negative Normal NEGATIVE [facility] Comment on above: Performed By: #### U MICRO, UACSIND #### [facility] [address] [place] [address] Kaela Judie Clarity (U) CLEAR Normal CLEAR [facility] Comment on above: Performed By: #### U MICRO, UACSIND #### [facility] [address] [place], [place] [address] Kaela Judie Color (U) LT. YELLOW Normal YELLOW [facility] Comment on above: Performed By: #### U MICRO, UACSIND #### [facility] [address] [place] [address] Kaela Judie Glucose Ql (U) Negative Normal NEGATIVE [facility] Comment on above: Performed By: #### U MICRO, UACSIND #### [facility] [address] [place] [address] Kaela Judie Hemoglobin Ql (U) Negative Normal NEGATIVE [facility] Comment on above: Performed By: #### U MICRO, UACSIND #### [facility] [address] [place] [address] Kaela Judie Ketones Ql (U) Negative Normal NEGATIVE [facility] Comment on above: Performed By: #### U MICRO, UACSIND #### [facility] [address] [place] [address] Kaela Judie LEUKOCYTES TRACE Abnormal NEGATIVE [facility] Comment on above: Performed By: #### U MICRO, UACSIND #### [facility] [address] [place] [address] Kaela Judie Nitrite Ql (U) Negative Normal NEGATIVE [facility] Comment on above: Performed By: #### U MICRO, UACSIND #### [facility] [address] [place] [address] Kaela Judie pH (U) 6.0 [pH] Normal 5-9 [facility] Comment on above: Performed By: #### U MICRO, UACSIND #### [facility] [address] [place] [address] Kaela Judie SPEC GRAVITY 1.025 Normal 1.005-<=1. 025 [facility] Comment on above: Performed By: #### U MICRO, UACSIND #### [facility] [address] [place] [address] Kaela Judie UA PROTEIN Negative Normal NEGATIVE/ TRACE [facility] Comment on above: Performed By: #### U MICRO, UACSIND #### [facility] [address] [place] [address] Kaela Judie UR MICRO IND INDICATED Normal [facility] Comment on above: Performed By: #### U MICRO, UACSIND #### [facility] [address] [place] [address] Kaelastephanie Dimas Urobilinogen Qn (U) 0.2 {Sylvester'U}/dL Normal 0.2 - 1. 0 [facility] Comment on above: Performed By: #### U MICRO, UACSIND #### [facility] [address] [place] [address] Kaela Judie URINE MICROSCOPIC ONLYon BACTERIA TRACE Abnormal NONE SEEN [facility] Comment on above: Performed By: #### U MICRO, UACSIND #### [facility] [address] [place] [address] Kaelastephanie Dimas Bacteria identified Cx Nom (U) INDICATED Normal [facility] Comment on above: Performed By: #### U MICRO, UACSIND #### [facility] [address] [place] [address] Kaela Judie CAST NONE SEEN Normal NONE SEEN [facility] Comment on above: Performed By: #### U MICRO, UACSIND #### [facility] [address] [place] [address] Kaela Judie Crystals LM Nom (Urine sed) NONE SEEN Normal NONE SEEN [facility] Comment on above: Performed By: #### U MICRO, UACSIND #### [facility] [address] [place] [address] Kaela Judie Epithelial cells LM Ql (Urine sed) FEW Abnormal NONE SEEN /RARE [facility] Comment on above: Performed By: #### U MICRO, UACSIND #### [facility] [address] [place] [address] Kaela Judie MUCOUS SMALL Abnormal NONE SEEN [facility] Comment on above: Performed By: #### U MICRO, UACSIND #### [facility] [address] [place] [address] Kaela Judie RBC 0-2 Normal 0-2 [facility] Comment on above: Performed By: #### U MICRO, UACSIND #### [facility] [address] [place] [address] Kaela Dimas WBC 2-5 Abnormal NONE SEEN [facility] Comment on above: Performed By: #### U MICRO, UACSIND #### [facility] [address] [place] [id number] Kaela Dimas US PREG BIOPHY W NON [...] by: IRINEO COMBS Date: 2021-01-09 07:18 Normal [facility] US PREG GROWTHon 12-31-2020 US PREG [...] cm; 32 weeks 2 days; % EFW: 4.347307, 39% FL/AC: 0.669663 FL/BPD: 0.885008 HC/AC: 1.181940 GESTATIONAL AGE: Age by EDC: 32 weeks 1 day SUSANNA by EDC: 02/24/2021 Age by US: 32 weeks 0 days SUSANNA by US: 02/25/2021 IMPRESSION: Normal interval growth Electronically authenticated by: IRINEO COMBS Date: 2020-12-31 09:38 Normal [facility] GTT 3 HR PREGon 12-12-2020 Glucose [Mass/Vol] 86 mg/dL Normal 74-106 [facility] Comment on above: Performed By: #### G TT3P #### [facility] [address] [place] [address] Kaela Judie Glucose [Mass/Vol] 179 mg/dL Normal [facility] Comment on above: Performed By: #### G TT3P #### [facility] [address] [place] [address] Kaela Judie Glucose [Mass/Vol] 131 mg/dL Normal [facility] Comment on above: Performed By: #### G TT3P #### [facility] [address] [place] [address] Kaela Judie Glucose [Mass/Vol] 145 mg/dL Normal [facility] Comment on above: Performed By: #### G TT3P #### [facility] [address] [place] [address] Kaela Judie GLUCOSE - 1HRon 12-05-2020 Glucose [Mass/Vol] 151 mg/dL Critically high 74-106 T [facility] Comment on above: Result Comment: sherri ent was approximately 5 minutes late for draw Performed By: #### G LU1HR #### [facility] [address] [place] [address] Kaela Judie HEMOGRAM AND PLATELon 2020 Hematocrit (Bld) [Volume fraction] 38.4 % Normal 36.0-48.0 [facility] Comment on above: Performed By: #### G TT3P #### [facility] [address] [place] [address] Kaela Judie Hemoglobin (Bld) [Mass/Vol] 13.2 g/dL Normal 12.0-16.0 [facility] Comment on above: Performed By: #### G TT3P #### [facility] [address] [place], [place] [id number] Kaela Judie MCH (RBC) [Entitic mass] 30.8 pg Normal 26.7-34.0 [facility] Comment on above: Performed By: #### G TT3P #### [facility] [address] [place], [place] [address] Kaela Dimas MCHC (RBC) [Mass/Vol] 34.4 g/dL Normal 29.9-35.2 [facility] Comment on above: Performed By: #### G TT3P #### [facility] [address] [place], [place] [address] Kaela Dimas MCV (RBC) [Entitic vol] 89.5 fL Normal 81.0-99.0 [facility] Comment on above: Performed By: #### G TT3P #### [facility] [address] [place], [place] [address] Kaela Dimas PLT 238 103/ul Normal 150-450 [facility] Comment on above: Performed By: #### G TT3P #### [facility] [address] [place] [address] Kaela Dimas RBC 4.29 106/ul Normal 4.20-5.40 [facility] Comment on above: Performed By: #### G TT3P #### [facility] [address] [place] [address] Kaela Dimas WBC 17.0 103/ul Critically high 4.0-11.0 [facility] Comment on above: Performed By: #### G TT3P #### [facility] [address] [place] [address] Kaela Dimas US PREG GROWTHon 12-03-2020 US [...] cm; 28 weeks 0 days; % EFW: 2.183139, 2 lbs. 10 oz., 40% FL/AC: 0.164429 FL/BPD: 0.427738 HC/AC: 1.164978 GESTATIONAL AGE: Age by EDC: 28 weeks 1 day SUSANNA by EDC: 02/24/2021 Age by US: 20 weeks 2 days SUSANNA by US: 02/23/2021 IMPRESSION: Normal interval growth Electronically authenticated by: IRINEO COMBS Date: 2020-12-03 10:04 Normal [facility] Vital Signs Date Time Vital Sign Value Performing Clinician Faci lity 05-18-2025 10:18-0400 Diastolic blood pressure 82 mm[Hg] Fely Ezequiel DO Work Phone: [facility] 05-18-2025 10:18-0400 Systolic blood pressure 148 mm[Hg] Fely Ezequiel DO Work Phone: [facility] 05-18-2025 09:31-0400 Body height 160.02 cm Fely Ezequiel DO Work Phone: [facility] 05-18-2025 09:31-0400 Body mass index (BMI) [Ratio] 38.4 kg/m2 Fely Ezequiel DO Work Phone: [facility] 05-18-2025 09:31-0400 Body temperature 97.9 [degF] Fely Ezequiel DO Work Phone: [facility] 05-18-2025 09:31-0400 Body weight 98.42 kg Fely Ezequiel DO Work Phone: [facility] 05-18-2025 09:31-0400 Heart rate 84 /min Fely Ezequiel DO Work Phone: [facility] 05-18-2025 09:31-0400 Respiratory rate 18 /min Fely Ezequiel DO Work Phone: [facility] 05-18-2025 09:31-0400 SaO2% (BldA) [Mass fraction] 97 % Fely Ezequiel DO Work Phone: [facility] 10-24-2024 14:41-0400 Body mass index (BMI) [Ratio] 36.51 kg/m2 Zhen Jacquie DO Work Phone: [facility] 10-24-2024 14:41-0400 Body weight 93.5 kg Zhen Jacquie DO Work Phone: [facility] 10-24-2024 14:41-0400 Diastolic blood pressure 84 mm[Hg] Zhen Jacquie DO Work Phone: [facility] 10-24-2024 14:41-0400 Systolic blood pressure 122 mm[Hg] Zhen Jacquie DO Work Phone: [facility] 09-26-2024 15:37-0500 Body mass index (BMI) [Ratio] 36.46 kg/m2 Madisyn Gaona PA Work Phone: [facility] 09-26-2024 15:37-0500 Body weight 93.35 kg Madisyn Milano PA Work Phone: [facility] 09-26-2024 15:37-0500 Diastolic blood pressure 82 mm[Hg] Madisyn Milano PA Work Phone: [facility] 09-26-2024 15:37-0500 Systolic blood pressure 124 mm[Hg] Madisyn Nirmala PA Work Phone: [facility] 09-08-2024 10:31-0500 Body height 160.9 cm Gerardo Dickey MD Work Phone: [facility] 09-08-2024 10:31-0500 Body mass index (BMI) [Ratio] 39.59 kg/m2 Gerardo Dickey MD Work Phone: [facility] 09-08-2024 10:31-0500 Body weight 102.51 kg Gerardo Dickey MD Work Phone: [facility] 09-08-2024 10:31-0500 Diastolic blood pressure 84 mm[Hg] Gerardo Dickey MD Work Phone: [facility] 09-08-2024 10:31-0500 Heart rate 102 /min Gerardo Dickey MD Work Phone: [facility] 09-08-2024 10:31-0500 SaO2% (BldA) [Mass fraction] 97 % eGrardo Dickey MD Work Phone: [facility] 09-08-2024 10:31-0500 Systolic blood pressure 118 mm[Hg] Gerardo Dickey MD Work Phone: [facility] 09-05-2024 11:13-0500 Body height 160.9 cm Sanam Cesar MD Work Phone: [facility] 09-05-2024 11:13-0500 Body mass index (BMI) [Ratio] 39.84 kg/m2 Sanam Cesar MD Work Phone: [facility] [employer] [facility] 09-05-2024 11:13-0500 Body weight 103.15 kg Sanam Cesar MD Work Phone: [facility] 09-05-2024 11:13-0500 Diastolic blood pressure 82 mm[Hg] Sanam Cesar MD Work Phone: [facility] 09-05-2024 11:13-0500 Heart rate 102 /min Sanam Cesar MD Work Phone: [facility] [employer] [facility] 09-05-2024 11:13-0500 SaO2% (BldA) [Mass fraction] 99 % Sanam Cesar MD Work Phone: [facility] 09-05-2024 11:13-0500 Systolic blood pressure 141 mm[Hg] Sanam Cesar MD Work Phone: [facility] 08-29-2024 14:37-0500 Body mass index (BMI) [Ratio] 41.42 kg/m2 Zhen Jacquie DO Work Phone: [facility] 08-29-2024 14:37-0500 Body weight 106.05 kg Zhen Jacquie DO Work Phone: [facility] 08-29-2024 14:37-0500 Diastolic blood pressure 78 mm[Hg] Zhen Jacquie DO Work Phone: [facility] 08-29-2024 14:37-0500 Systolic blood pressure 128 mm[Hg] Zhen Jacquie DO Work Phone: [facility] 08-22-2024 15:09-0500 Body mass index (BMI) [Ratio] 41.45 kg/m2 Zhen Jacquie DO Work Phone: [facility] 08-22-2024 15:09-0500 Body weight 106.14 kg Zhen Jacquie DO Work Phone: [facility] 08-22-2024 15:09-0500 Diastolic blood pressure 80 mm[Hg] Zhen Jacqiue DO Work Phone: [facility] 08-22-2024 15:09-0500 Systolic blood pressure 132 mm[Hg] Zhen Jacquie DO Work Phone: [facility] 08-14-2024 16:26-0500 Body mass index (BMI) [Ratio] 41.65 kg/m2 Zhen Jacquie DO Work Phone: [facility] 08-14-2024 16:26-0500 Body weight 106.65 kg Zhen Jacquie DO Work Phone: [facility] 08-14-2024 16:26-0500 Diastolic blood pressure 80 mm[Hg] Zhen Jacquie DO Work Phone: [facility] 08-14-2024 16:26-0500 Systolic blood pressure 130 mm[Hg] Zhen Jacquie DO Work Phone: [facility] 07-31-2024 15:22-0500 Body mass index (BMI) [Ratio] 41.81 kg/m2 Madisyn KERNS Work Phone: [facility] 07-31-2024 15:22-0500 Body weight 107.05 kg Madisyn KERNS Work Phone: [facility] 07-31-2024 15:22-0500 Diastolic blood pressure 72 mm[Hg] Madisyn KERNS Work Phone: [facility] 07-31-2024 15:22-0500 Systolic blood pressure 122 mm[Hg] Madisyn KERNS Work Phone: [facility] 07-17-2024 16:19-0500 Body mass index (BMI) [Ratio] 41.81 kg/m2 Zhen Jacquie DO Work Phone: [facility] 07-17-2024 16:19-0500 Body weight 107.05 kg Zhen Jacquie DO Work Phone: [facility] 07-17-2024 16:19-0500 Diastolic blood pressure 72 mm[Hg] Zhen Jacquie DO Work Phone: [facility] 07-17-2024 16:19-0500 Systolic blood pressure 122 mm[Hg] Zhen Jacquie DO Work Phone: [facility] 07-14-2024 11:13-0500 Body height 160 cm Gregg Fox MD Work Phone: [facility] 07-14-2024 11:13-0500 Body mass index (BMI) [Ratio] 40.74 kg/m2 Gregg Fox MD Work Phone: [facility] 07-14-2024 11:13-0500 Body weight 104.33 kg Gregg Fox MD Work Phone: [facility] 07-14-2024 11:13-0500 Diastolic blood pressure 84 mm[Hg] Gregg Fox MD Work Phone: [facility] 07-14-2024 11:13-0500 Heart rate 104 /min Gregg Fox MD Work Phone: [facility] 07-14-2024 11:13-0500 Systolic blood pressure 144 mm[Hg] Gregg Fox MD Work Phone: [facility] 06-15-2024 15:34-0500 Body mass index (BMI) [Ratio] 40.6 kg/m2 Madisyn Nirmala PA Work Phone: [facility] 06-15-2024 15:34-0500 Body weight 103.96 kg Madisyn Nirmala PA Work Phone: [facility] 06-15-2024 15:34-0500 Diastolic blood pressure 76 mm[Hg] Madisyn Milano PA Work Phone: [facility] 06-15-2024 15:34-0500 Systolic blood pressure 122 mm[Hg] Madisyn Nirmala PA Work Phone: [facility] 05-18-2024 12:07-0400 Body mass index (BMI) [Ratio] 39.5 kg/m2 Zhen Jacquie DO Work Phone: [facility] 05-18-2024 12:07-0400 Body weight 101.15 kg Zhen Jacquie DO Work Phone: [facility] 05-18-2024 12:07-0400 Diastolic blood pressure 78 mm[Hg] Zhen Jacquie DO Work Phone: [facility] 05-18-2024 12:07-0400 Systolic blood pressure 124 mm[Hg] Zhen Jacquie DO Work Phone: [facility] 04-20-2024 08:46-0400 Body mass index (BMI) [Ratio] 39.41 kg/m2 Madisyn Nirmala PA Work Phone: [facility] 04-20-2024 08:46-0400 Body weight 100.92 kg Madisyn Milano PA Work Phone: [facility] 04-20-2024 08:46-0400 Diastolic blood pressure 82 mm[Hg] Madisyn Nirmala PA Work Phone: [facility] 04-20-2024 08:46-0400 Systolic blood pressure 122 mm[Hg] Madisyn Milano PA Work Phone: [facility] 03-22-2024 11:34-0400 Body mass index (BMI) [Ratio] 39.5 kg/m2 Zhen Jacquie DO Work Phone: [facility] 03-22-2024 11:34-0400 Body weight 101.15 kg Zhen Jacquie DO Work Phone: [facility] 03-22-2024 11:34-0400 Diastolic blood pressure 74 mm[Hg] Zhen Jacquie DO Work Phone: [facility] 03-22-2024 11:34-0400 Systolic blood pressure 122 mm[Hg] Zhen Jacquie DO Work Phone: [facility] 01-31-2024 18:14-0400 Diastolic blood pressure 74 mm[Hg] MD Jacques Mccarthy Work Phone: [facility] 01-31-2024 18:14-0400 Heart rate 100 /min MD Jacques Mccarthy Work Phone: [facility] 01-31-2024 18:14-0400 Respiratory rate 18 /min MD Jacquse Mccarthy Work Phone: [facility] 01-31-2024 18:14-0400 SaO2% (BldA) [Mass fraction] 100 % MD Jacques Mccarthy Work Phone: [facility] 01-31-2024 18:14-0400 Systolic blood pressure 156 mm[Hg] MD Jacques Mccarthy Work Phone: [facility] 01-31-2024 14:04-0400 Body height 160.02 cm MD Jacques Mccarthy Work Phone: [facility] 01-31-2024 14:04-0400 Body temperature 97.4 [degF] MD Jacques Mccarthy Work Phone: [facility] 01-31-2024 14:04-0400 Body weight 98.5 kg MD Jacques Mccarthy Work Phone: [facility] Encounters Encounter Date Encounter Type Care Provider Facility Start: 05-18-2025 End: 05-18-2025 ambulatory Fely Nieves DO Work Phone: -[facility] Start: 05-18-2025 End: 05-18-2025 Patient encounter procedure Fely Nieves DO -[facility] Work Phone: Start: 04-26-2025 End: 04-26-2025 Telephone encounter [facility] Start: 10-24-2024 End: 10-24-2024 ambulatory ZHEN JACQUIE Not Available Start: 10-24-2024 End: 10-24-2024 care visit Zhen Jacquie DO Work Phone: [facility] Comment on above: 6 weeks f ollow-up; S/P section; Gestational diabetes mellitus (GDM), delivered, current hospitalization Start: 09-26-2024 End: 09-26-2024 ambulatory MADISYN GAONA Not Available Start: 09-26-2024 End: 09-26-2024 Postop follow up visit related to original px Madisyn KERNS Work Phone: [facility] Comment on above: Encounter for postpa rtum visit; S/P section Start: 09-26-2024 End: 09-26-2024 Bamboo flowsheet Madisyn KERNS Work Phone: [facility] Start: 09-26-2024 End: 09-26-2024 Bamboo flowsheet Madisyn KERNS Work Phone: [facility] Start: 09-16-2024 End: 09-16-2024 Evaluation and management of inpatient [facility] Start: 09-14-2024 End: 09-16-2024 Evaluation and management of inpatient IRINEO Jesus [facility] Start: 09-11-2024 ambulatory [facility] Start: 09-08-2024 End: 09-08-2024 Clinisync Result Encounter Zhen Jacquie DO Work Phone: [facility] External Department Unsolicited Start: 09-08-2024 End: 09-08-2024 Clinisync Result Encounter Zhen Jacquie DO Work Phone: [facility] Unsolicited Start: 09-08-2024 End: 09-08-2024 Telephone encounter Terra Lundberg MD Work Phone: [facility] Start: 09-08-2024 End: 09-08-2024 Office consultation new/estab patient 60 min Geradro Dickey MD Work Phone: [facility] Comment on above: Pulmonary hypertensi on (CMS-HCC) (Primary Dx); 35 weeks gestation of ; Chronic hypertension affecting ; Tachycardia Start: 09-08-2024 End: 09-08-2024 [facility] Start: 09-07-2024 End: 09-07-2024 Chart abstracting Scanning Provider External [facility] Start: 09-05-2024 End: 09-05-2024 Telephone encounter Terra Lundberg MD Work Phone: [facility] Start: 09-05-2024 End: 09-05-2024 ambulatory SANAM Hannah [facility] Start: 09-05-2024 End: 09-05-2024 Office consultation new/estab patient 80 min Sanam Cesar MD Work Phone: [facility] Comment on above: arrhythmia [...] Bamboo flowsheet Zhen Jacquie DO Work Phone: [facility] Start: 08-29-2024 End: 08-29-2024 Bamboo flowsheet Zhen Jacquie DO Work Phone: [facility] Start: 08-22-2024 End: 08-22-2024 ambulatory ZHEN JACQUIE Not Available Start: 08-22-2024 End: 08-22-2024 flow sheet Zhen Jacquie DO Work Phone: [facility] Comment on above: Third trimester preg red; 34 weeks gestation of ; Insulin controlled gestational diabetes mellitus (GDM) during , antepartum Start: 08-22-2024 End: 08-22-2024 Bamboo flowsheet Zhen Jacquie DO Work Phone: [facility] Start: 08-22-2024 End: 08-22-2024 Bamboo flowsheet Zhen Jacquie DO Work Phone: [facility] Start: 08-16-2024 End: 08-16-2024 Documentation procedure Judie Stearns [facility] Start: 08-15-2024 End: 08-15-2024 Office outpatient visit 25 minutes Terra Lundberg MD Work Phone: [facility] Comment on above: 32 weeks gestation o f (Primary Dx); Gestational diabetes mellitus (GDM) in third trimester, gestational diabetes method of control unspecified; Chronic hypertension affecting ; BMI 40.0-44.9, adult ([facility]); arrhythmia affecting , antepartum; Polyhydramnios affecting ; Separation of chorion and amnion membranes, antepartum Start: 08-15-2024 End: 08-15-2024 Orders Only Judie Stearns [facility] Comment on above: Abnormal ultrasonic finding on [...] 07-31-2024 Bamboo flowsheet Madisyn KERNS Work Phone: [facility] Start: 07-17-2024 End: 07-17-2024 ambulatory ZHEN CONNELLYO Not Available Start: 07-17-2024 End: 07-17-2024 flow sheet Zhen Connellyo DO Work Phone: [facility] Comment on above: Third [...] Gregg Fox MD Work Phone: [facility] [place] Comment on above: Gestational diabetes mellitus (GDM), antepartum, gestational diabetes method of control unspecified (Primary Dx); Chronic hypertension affecting Start: 07-14-2024 End: 07-14-2024 [facility] Start: 07-13-2024 End: 07-13-2024 Clinisync Result Encounter Madisyn KERNS Work Phone: [facility] External Department Unsolicited Start: 07-13-2024 End: 07-13-2024 Clinisync Result Encounter Madisyn KERNS Work Phone: [facility] External Department Unsolicited Start: 06-21-2024 End: 06-21-2024 Chart abstracting Gregg Fox MD Work Phone: [facility] Start: 06-15-2024 End: 06-15-2024 flow sheet Madisyn KERNS Work Phone: [facility] Comment on above: Second trimester pre gnancy; 24 weeks gestation of ; Diabetes mellitus screening; Elevated blood pressure affecting in first trimester, antepartum; High blood pressure affecting in first trimester, antepartum; Heartburn during in second trimester Start: 06-15-2024 End: 06-15-2024 ambulatory MADISYN GAONA Not Available Start: 06-15-2024 End: 06-15-2024 Bamboo flowsheet Madisyn KERNS Work Phone: [facility] Start: 06-15-2024 End: 06-15-2024 Bamboo flowsheet Madisyn KERNS Work Phone: [facility] Start: 05-18-2024 End: 05-18-2024 Bamboo flowsheet Zhen Jacquie DO Work Phone: [facility] Start: 05-18-2024 End: 05-18-2024 Bamboo flowsheet Zhen Jacquie DO Work Phone: [facility] Start: 05-18-2024 End: 05-18-2024 ambulatory ZHEN JACQUIE Not Available Start: 05-18-2024 End: 05-18-2024 flow sheet Zhen Jacquie DO Work Phone: [facility] Comment on above: 20 weeks gestation o f ; Second trimester Start: 04-20-2024 End: 04-20-2024 Bamboo flowsheet Madisyn KERNS Work Phone: [facility] Start: 04-20-2024 End: 04-20-2024 Bamboo flowsheet Madisyn KERNS Work Phone: [facility] Start: 04-20-2024 End: 04-20-2024 Office outpatient visit 15 minutes Madisyn KERNS Work Phone: [facility] [facility] Comment on above: Screening, , for anatomic survey; Well woman exam with routine gynecological exam; Screen for STD (sexually transmitted disease); Vaginal discharge; Second trimester Start: 04-20-2024 End: 04-20-2024 Patient encounter procedure Madisyn Gaona PA Work Phone: [facility] Start: 04-20-2024 End: [...] patient visit MD Jacques Mccarthy Work Phone: [facility] [place] Work Phone: Start: 10-08-2021 End: 10-08-[address] ZHEN DHILLON Facility:H1 Start: 02-19-[address] ZHEN DHILLON Facility :H1 Start: 02-11-2021 End: 02-11-[address] ZHEN DHILLON Facility:H1 Start: 02-06-2021 Evaluation and manag ement of inpatient DR ZHEN DHILLON Facility:H1 Start: 02-05-2021 End: 02-09-2021 Evaluation and management of inpatient DR ZHEN DHILLON Facility:H1 Start: 01-30-2021 End: 01-30-[address] ZHEN DHILLON Facility:H1 Start: 01-29-2021 End: 01-29-[address] ZHEN DHILLON Facility:H1 Start: 01-22-2021 End: 01-22-[address] ZHEN DHILLON Facility:H1 Start: 01-15-2021 End: 01-15-[address] ZHEN DHLILON Facility:H1 Start: 01-14-2021 End: 01-14-[address] [...] Date Procedure Procedure Detail Performing Clinician Start: 10-24-2024 Urine test visual color cmprsn meths Zhen Jacquie DO Work Phone: Start: 10-24-2024 H/O: section S/P s ection Zhen Jacquie DO Work Phone: Start: 09-08-2024 Ecg routine ecg w/le ast [...] Work Phone: Start: 08-30-2024 [facility] UA (CLEAN/CATCH) POSTMASTER/MICRO IF IND. Zhen Jacquie DO Work Phone: [...] Work Phone: Start: 08-04-2024 [facility] UA (CLEAN/CATCH) POSTMASTER/MICRO IF IND. Zhen Jacquie DO Work Phone: [...] stick/tabl et rgnt non-auto w/o micrscp Zhen Dhillon DO Work Phone: Start: 04-20-2024 Urnls dip stick/tabl et rgnt non-auto w/o micrscp Madisyn KERNS Work Phone: Start: 02-06-2021 Extraction of Produc ts of Conception, Low Cervical, Open Approach DR ZHEN DHILLON Start: 02-05-2021 Introduction of Othe r Hormone into Peripheral Vein, Percutaneous Approach DR ZHEN DHILLON H/O: section S/P sectio n Madisyn KERNS Work Phone: Plan of Treatment Date Care Activity Detail Author Start: 09-14-2025 Adult BMI Screening Adult BMI Screen ing [facility] Start: 09-14-2025 Tobacco Screening Tobacco Screening [facility] Start: 09-08-2025 Adult BMI Screening Adult BMI Screen ing [facility] Start: 09-08-2025 Tobacco Screening Tobacco Screening [facility] Start: 09-05-2025 Adult BMI Screening Adult BMI Screen ing [facility] Start: 09-05-2025 Tobacco Screening Tobacco Screening [facility] Start: 08-15-2025 Tobacco Screening Tobacco Screening [facility] Start: 07-14-2025 Adult BMI Screening Adult BMI Screen ing [facility] Start: 06-21-2025 Adult BMI Screening Adult BMI Screen ing [facility] Start: 04-30-2025 End: 04-30-2025 Patient encounter procedure 04/30/2025 9:00 AM EDT Office Visit [facility] [address] [place] [address] Gerardo Dickey MD [address] [place] [address] [facility] Start: 04-02-2025 Influenza vaccination Influenza Vacc ine [facility] Start: 12-26-2024 End: 12-26-2024 Patient encounter procedure 12/26/2024 3:00 PM EDT Office Visit [facility] [address] [place] [address] Madisyn Gaona PA [address] [place], [place] [id number] [facility] Start: 10-24-2024 End: 10-24-2024 ambulatory 10/24/2024 2:10 PM EDT Visit [facility] [address] [place] [address] Zhen Dhillon DO [address] [place] [place], [place] [id number] [facility] Start: 09-14-2024 End: 09-14-2024 Admission to same day surgery center 09/14/2024 2:00 PM EST - 09/14/2024 3:00 PM EST Surgery [facility] [address] [facility] [place] [phone] Irineo Torres MD [address] [place] [address], [address] [place], [place] [id number] REPEAT [79550 (CPT )] [facility] Comment on above: REPEAT [59 620 (CPT )] Start: 09-14-2024 End: 09-14-2024 delivery attempted REPEAT 09/14/2024 2:00 PM EST [facility] OR Start: 09-14-2024 Subsequent hospital visit by physician 09/14/2024 2:00 PM EST Hospital Encounter [facility] [address] [place] [phone] Irineo Torres MD [address] [place] [address], [address] [place], [place] [id number] [facility] Start: 09-08-2024 End: 09-08-2024 Patient encounter procedure 09/08/2024 10:30 AM EST Office Visit [facility] [address] [place] [address] Gerardo Dickey MD [address] [place] [address] [facility] Start: 09-05-2024 End: 09-05-2024 Patient encounter procedure 09/05/2024 10:40 AM EST Routine [facility] [address] [place] [phone] Zhen Dhillon, [address] [place] [address] [facility] Start: 08-30-2024 End: 08-30-2024 Patient encounter procedure 08/30/2024 10:30 AM EST Office Visit [facility] [address] [place] [phone] Sanam Cesar MD [address] [place] [address] [facility] Start: 08-29-2024 End: 08-29-2024 Patient encounter procedure [facility] Comment on above: Arrived Start: 08-22-2024 End: 08-22-2024 Patient encounter procedure 08/22/2024 2:30 PM EST Routine [facility] [address] [place] [phone] Zhen Dhillon, [address] [place] [address] [facility] Start: 08-14-2024 End: 08-14-2024 Patient encounter procedure 08/14/2024 3:30 PM EST Routine [facility] [address] [place] [address] Zhen Dhillon, DO [address] [place] [address] [facility] Start: 07-31-2024 End: 07-31-2024 Patient encounter procedure [facility] Comment on above: Arrived Start: 07-17-2024 End: 07-17-2024 Patient encounter procedure 07/17/2024 3:20 PM EST Routine [facility] [address] [place] [address] Zhen Dhillon, DO [address] [place] [address] [facility] Start: 07-17-2024 End: 07-17-2024 Professional / ancillary services management 07/17/2024 3:00 PM EST Ancillary Procedure [facility] [address] [phone] [facility] Start: 07-17-2024 End: 07-17-2025 US biophysical profile w non stress test US biophysical profile w non stress test Imaging Routine Third trimester Gestational diabetes mellitus (GDM) in third trimester, gestational diabetes method of control unspecified Hypertension, unspecified type (CMS/HCC) Expected: 07/17/2024 (Approximate), Expires: 07/17/2025 [facility] Comment on above: Expected: 07/17/2024 [...] End: 07-14-2024 Patient encounter procedure [facility] [place] Start: 06-15-2024 End: 06-15-2024 Patient encounter procedure 06/15/2024 3:30 PM EST Routine [facility] [address] [place] [phone] Madisyn Gaona PA [address] [place] [address] [facility] Start: 06-15-2024 End: 06-15-2025 CBC panel - Blood by Automated count CBC Lab Routine Diabetes mellitus screening Expected: 06/15/2024 (Approximate), Expires: 06/15/2025 [facility] Work Phone: Comment on above: Expected: 06/15/2024 (Approximate), Expires: 06/15/2025 Start: 06-15-2024 End: 06-15-2025 Measurement of glucose 1 hour after glucose challenge for glucose tolerance test Glucose tolerance, 1 hour Lab Routine Diabetes mellitus screening Expected: 06/15/2024 (Approximate), Expires: 06/15/2025 [facility] Comment on above: Expected: 06/15/2024 (Approximate), Expires: 06/15/2025 Start: 05-18-2024 End: 05-18-2024 Patient encounter procedure 05/18/2024 11:40 AM EDT Office Visit [facility] [address] [place] [phone] Zhen Dhillon DO [address] [place] [address] [facility] Start: 05-18-2024 End: 05-18-2024 Professional / ancillary services management 05/18/2024 10:30 AM EDT Ancillary Procedure [facility] [address] [place] [phone] [facility] Start: 04-20-2024 End: 04-20-2025 Alpha fetoprotein, maternal Alpha fetoprotein, maternal Lab Routine Second trimester Expected: 04/20/2024 (Approximate), Expires: 04/20/2025 [facility] Work Phone: Comment on above: Expected: 04/20/2024 (Approximate), Expires: 04/20/2025 Start: 04-20-2024 End: 04-20-2025 US for US OB ANATOMY SINGLE W US OB CERVICAL LENGTH Imaging Routine Screening, , for anatomic survey Expected: 04/20/2024 (Approximate), Expires: 04/20/2025 [facility] Comment on above: Expected: 04/20/2024 (Approximate), Expires: 04/20/2025 Start: 04-20-2024 End: 04-20-2024 Patient encounter procedure [facility] Comment on above: Arrived Start: 04-02-2024 Influenza vaccination Influenza Vacc ine [facility] Start: 03-22-2024 End: 03-22-2024 Patient encounter procedure 03/22/2024 11:20 AM EDT Routine [facility] [address] [place] [address] Zhen Dhillon, DO [address] [place] [address] Arrived [facility] Comment on above: Arrived Start: 2018 Screening for malign ant neoplasm of cervix Pap Smear [facility] Start: 2016 DTaP,Tdap and Td Vaccines (1 - Tdap) DTaP,Tdap and Td Vaccines (1 - Tdap) [facility] Start: 2015 Adult BMI Follow Up Plan Adult BMI Follow Up Plan [facility] Start: 2015 Adult BMI Screening Adult BMI Screen ing [facility] Start: 2009 Depression Screening Depression Scre ening [facility] Start: 2009 Tobacco Screening Tobacco Screening [facility] Aldosterone [Mass/volume] in Serum or Plasma [facility] CBC W Auto Different ial panel - Blood CBC and differential Lab Routine Abnormal CBC Ordered: 03/22/2024 [facility] Work Phone: Comment on above: Ordered: 03/22/2024 Cefuroxime free [Mass/volume] in Serum or Plasma [facility] Comprehensive metabo lic 2000 panel - Serum or Plasma [facility] Hemoglobin A1c/Hemoglobin.total in Blood Hemoglobin A1c Lab Routine Gestational diabetes mellitus (GDM), delivered, current hospitalization Ordered: 10/24/2024 [facility] Work Phone: Comment on above: Ordered: 10/24/2024 Patient Education - Th e Second Month High Blood Pressure ED [facility] Work Phone: Patient referral [facility] Work Phone: Renin [Enzymatic activity/volume] in Plasma [facility] Rheumatoid factor [Units/volume] in Serum or Plasma [facility] Immunizations Immunization Date Immunization Notes Care Provider Fa cility 04-08-2018 bacillus calmette-nathaniel vaccine Fely Ezequiel DO Work Phone: [facility] 03-12-2003 diphtheria, tetanus toxoids and acellular pertussis vaccine, unspecified formulation Fely Ezequiel DO Work Phone: [facility] 03-12-2003 measles, mumps and rubella virus vaccine Fely Ezequiel DO Work Phone: [facility] 03-12-2003 poliovirus vaccine, inactivated Fely Ezequiel DO Work Phone: [facility] 09-27-1998 diphtheria, tetanus toxoids and acellular pertussis vaccine, unspecified formulation Fely Ezequiel DO Work Phone: [facility] 09-27-1998 haemophilus influenz ae type b vaccine, conjugate unspecified formulation Fely Ezequiel DO Work Phone: [facility] 09-27-1998 poliovirus vaccine, inactivated Fely Ezequiel DO Work Phone: [facility] 03-18-1998 measles, mumps and rubella virus vaccine Fely Ezequiel DO Work Phone: [facility] 1997 diphtheria, tetanus toxoids and acellular pertussis vaccine, unspecified formulation Fely Ezequiel DO Work Phone: [facility] 1997 haemophilus influenz ae type b conjugate and Hepatitis B vaccine Fely Ezequiel DO Work Phone: [facility] 1997 diphtheria, tetanus toxoids and acellular pertussis vaccine, unspecified formulation Fely Ezequiel DO Work Phone: [facility] 1997 poliovirus vaccine, inactivated Fely Ezequiel DO Work Phone: [facility] 1997 diphtheria, tetanus toxoids and acellular pertussis vaccine, unspecified formulation Fely Ezequiel DO Work Phone: [facility] 1997 haemophilus influenz ae type b conjugate and Hepatitis B vaccine Fely Ezequiel DO Work Phone: [facility] 1997 poliovirus vaccine, inactivated Fely Ezequiel DO Work Phone: [facility] 1997 hepatitis B vaccine, pediatric or pediatric/adolescent dosage Fely Ezequiel DO Work Phone: [facility] Payers Date Payer Category Payer Medicaid [id number] 2024 Self-pay 2023 Private Health Insurance [id number] 2023 Private Health Insurance [id number] 2022 Medicaid HMO [employer] [id number] 2022 Medicaid [id number] 1997 Unknown [id number] 2.16.840.1.220847.3.579.2. 593 1997 Unknown [id number] 2.16.840.1.833666.3.579.2. 593 1997 Unknown [id number] 2.16.840.1.583134.3.579.2. 593 1997 Unknown [id number] 2.16.840.1.936596.3.579.2. 593 1997 Unknown [id number] 2.16.840.1.319645.3.579.2. 593 1997 Unknown [id number] 2.16.840.1.950890.3.579.2. 593 1997 Unknown [id number] 2.16.840.1.296557.3.579.2. 593 1997 Unknown [id number] 2.16.840.1.205701.3.579.2. 593 1997 Unknown [id number] 2.16.840.1.081589.3.579.2. 593 1997 Unknown [id number] 2.16.840.1.556704.3.579.2. 593 1997 Unknown [id number] 2.16.840.1.650788.3.579.2. 593 1997 Unknown [id number] 2.16.840.1.406947.3.579.2. 593 1997 Unknown [id number] 2.16.840.1.112662.3.579.2. 593 1997 Unknown [id number] 2.16.840.1.585648.3.579.2. 593 1997 Unknown [id number] 2.16.840.1.616598.3.579.2. 593 1997 Unknown [id number] 2.16.840.1.329105.3.579.2. 593 1997 Unknown [id number] 2.16.840.1.318622.3.579.2. 593 1997 Unknown [id number] 2.16.840.1.028729.3.579.2. 593 1997 Unknown [id number] 2.16.840.1.995345.3.579.2. 1286 1997 Unknown [id number] 2.16.840.1.024779.3.579.2. 6 1997 Unknown [id number] 2.16.840.1.655390.3.579.2. 6 1997 Unknown [id number] 2.16.840.1.622576.3.579.2. 1286 1997 Unknown [id number] 2.16.840.1.853962.3.579.2. 1286 1997 Unknown [id number] 2.16.840.1.832742.3.579.2. 1286 1997 Unknown [id number] 2.16.840.1.806614.3.579.2. 1285 1997 Unknown [id number] 2.16.840.1.691088.3.579.2. 1286 1997 Unknown [id number] 2.16.840.1.155519.3.579.2. 1286 1997 Unknown [id number] 2.16.840.1.986236.3.579.2. 6 1997 Unknown [id number] 2.16.840.1.736628.3.579.2. 1258 1997 Unknown [id number] 2.16.840.1.602168.3.579.2. 1258 1997 Unknown [id number] 2.16.840.1.754731.3.579.2. 1258 1997 Unknown [id number] 2.16.840.1.932013.3.579.2. 1258 1997 Unknown [id number] 2.16.840.1.438385.3.579.2. 1258 1997 Unknown [id number] 2.16.840.1.604600.3.579.2. 1258 1997 Unknown [id number] 2.16.840.1.549718.3.579.2. 1258 1997 Unknown [id number] 2.16.840.1.800314.3.579.2. 1258 1997 Unknown [id number] 2.16.840.1.268539.3.579.2. 1258 1997 Unknown [id number] 2.16.840.1.761741.3.579.2. 1258 1997 Unknown [id number] 2.16.840.1.412164.3.579.2. 1258 1997 Unknown [id number] 2.16.840.1.696413.3.579.2. 1258 1997 Unknown [id number] 2.16.840.1.097495.3.579.2. 1258 1997 Unknown [id number] 2.16.840.1.737610.3.579.2. 1258 1997 Unknown [id number] 2.16.840.1.668230.3.579.2. 1259 1959 Unknown [id number] 1959 Unknown [id number] 1959 Unknown [id number] Unknown [id number] 2.16.840.1.974990.3.579.2. 531 Social History Date Type Detail Facility Start: 01-13-2024 [facility] Start: 01-31-2024 Tobacco smoking stat [facility] Never smoked tobacco (finding) [facility] Start: 1995 Sex Assigned At Female [facility] Tobacco smoking stat [facility] Tobacco smoking consumption unknown [facility] Start: 1997 Sex assigned at Not on file [facility] Start: 08-23-2020 End: 08-15-2024 Gender identity Not on file [facility] Start: 07-14-2024 End: 05-18-2025 Tobacco smoking status MDIS Ex-smoker [facility] History of tobacco use Current smoker [facility] History of tobacco use Cigarette Smoker P [facility] Start: 10-07-2020 End: 07-14-2024 Tobacco use and exposure Smokeless tobacco non-user [facility] Start: 08-15-2024 End: 09-15-2024 Alcoholic beverage intake Ex-drinker (finding) [facility] Start: 08-23-2020 End: 08-15-2024 History of Social function [facility] Childcare Unknown [facility] Start: 10-07-2020 End: 07-14-2024 Tobacco Comment quit 3 years ago [facility] Start: 08-23-2020 Sex Female (finding) [facility] Medical Equipment Procedure Code Equipment Code Equipment Original Text Equipment Identifier Dates [id number] Start: 07-17-2024 End: 08-16-2024 1 each by In Vit ro route Daily Use to check FSBS four times daily [id number] Start: 07-17-2024 End: 08-16-2024 Inject 1 each un jany the skin Daily [id number] Start: 08-23-2024 End: 09-22-2024 Inject 1 each un jany the skin See administration instructions Use four times daily with insulin pen. [id number] Start: 08-22-2024 End: 08-23-2024 Clinical Notes 02-05-2021 to 04-26-2025 Telephone Encounter - Angela Hodgson - 04/26/2025 8:57 AM EDTTelephone Encounter - Angela Hodgson - 04/26/2025 8:57 AM Jacinta Gutierrez LPN - 10/24/2024 2:10 PM LUIS F Chase - 09/26/2024 2:40 PM EST Note Date & Type Note Facility 04-26-2025 Miscellaneous Notes LMOM for pt to return call to [facility] regarding her upcoming appt on 04/30 and her ins being OON. documented in this encounter [facility] 04-26-2025 Telephone encounter Note LMOM for pt to return call to [facility] regarding her upcoming appt on 04/30 and her ins being OON. [facility] 10-24-2024 History of Present illness Narrative Reason for Appointment: Patient ID: Samantha Benjamin is a 29 y.o. female who presents for Post-op Visit and Follow-up Patient presents today for Post Follow Up appointment. MEDICATIONS Current Outpatient Medications Medication Instructions citalopram (CELEXA) 20 mg, Oral, Every morning omeprazole (PRILOSEC) 20 mg, Oral, Daily before breakfast, Do not crush or chew. ALLERGIES No Known Allergies PROBLEMS Active Ambulatory Problems Diagnosis Date Noted 6 weeks follow-up 10/24/2024 S/P section 10/24/2024 Resolved Ambulatory Problems Diagnosis Date Noted No [...] History: Procedure Laterality Date SECTION, LOW TRANSVERSE 09/14/2024 [facility] REVIEW OF SYSTEMS Review of Systems: Review [...] nursing note reviewed. Exam conducted with a operating room technologist present. Vitals: Estimated body mass index is 36.51 kg/m as calculated from the following: Height as of 02/22/24: 5' 3 . Weight as of this encounter: 206 lb 1.9 oz. BP: 122/84 Patient's last menstrual period was 10/20/2024 (exact date). ASSESSMENT & PLAN ICD-10-CM 1. 6 weeks follow-up Z39.2 POCT , urine manually resulted 2. S/P section Z98.891 POCT , urine manually resulted Post Follow Up: Patient is doing well but has complaints of uncontrolled sugar during . Patient presents today for 6 week visit. Patient is s/p delivery. Patient states depression but denies suicidal and homicidal ideations. Pt taking celexa and doing well on medication. All options were discussed with the patient regarding control and patient desires oral contraception . Follow Up: Patient is to return for annual unless needed otherwise. Documented by Judie Gutierrez LPN on behalf of: Zhen Dhillon DO documented in this encounter [facility] 09-26-2024 History of Present illness Narrative Reason for Appointment: Patient ID: Samantha Benjamin is a 29 y.o. female who presents for Post-op Visit Patient presents today for Post Follow Up appointment.and post op csection MEDICATIONS Current Outpatient Medications Medication Instructions Alcohol Swabs (Alcohol Prep Pad) 70 % pads 1 Pad, Topical, Daily, Use four times daily to check FSBS. aspirin 81 mg, Daily Blood Glucose Monitoring Suppl (D-Crackle Glucometer) w/Device kit 1 kit, Does not apply, Daily, Use four times daily to check FSBS. In the morning prior to breakfast & 1 hour after each meal for a total of 4times daily. citalopram (CELEXA) 20 mg, Oral, Every morning labetalol (NORMODYNE) 300 mg, Oral, 3 times [...] breath sounds. Abdominal: Palpations: Abdomen is soft. Comments: Pfannenstiel incision healing well Musculoskeletal: General: Normal range of motion. Neurological: General: No focal deficit present. Mental Status: She is alert and oriented to person, place, and time. Psychiatric: Mood and Affect: Mood normal. Behavior: Behavior normal. Thought Content: Thought content normal. Judgment: Judgment normal. Vitals and nursing note reviewed. Vitals: Estimated body mass index is 36.46 kg/m as calculated from the following: Height as of 02/22/24: 5' 3 . Weight as of this encounter: 205 lb 12.8 oz. BP: 124/82 Patient's last menstrual period was 12/21/2023. ASSESSMENT & PLAN ICD-10-CM 1. Encounter for visit Z39.2 2. S/P section Z98.891 Patient presents today for a one week postop section check. Patient is doing well with minor complaints of pain. Incision has been noted as healing well with no signs and symptoms of infection. Follow Up: Patient is to return in 5 weeks for 6 week evaluation. Documented by LUIS F Tarango on behalf of: LUIS F Tarango documented in this encounter [facility] 09-08-2024 Miscellaneous Notes The patient was evaluated [...] She is scheduled for a section at [facility] 09/14/[address] Torres was notified who will be the attending manager installation We will also reach out to the patient primary OB for an update TERRA LUNDBERG MD documented in this encounter [facility] [employer] [facility] 09-08-2024 Telephone encounter Note The patient was [...] She is scheduled for a section at [facility] 09/14/[address] Torres was notified who will be the attending manager installation We will also reach out to the patient primary OB for an update TERRA LUNDBERG MD [facility] 09-08-2024 History of Present illness Narrative [...] 4 TIMES A DAY ONETOUCH ULTRA2 METER misc USE TO CHECK FASTING BLOOD SUGAR BEFORE BREAKFAST & 1 HR AFTER EACH MEAL FOR TOTAL OF 4 TIMES DAILY No current facility-administered medications for this visit. 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 Images not available. [...] of 134 beats per minute, normal mechanical IN interval of 114 milliseconds Other: No pericardial [...] ( GUMMY ORAL) IMPRESSIONS/PLAN 1. Pulmonary hypertension ([facility]) - [facility] [place] - POCT EKG 2. 35 weeks gestation of - [facility] [place] 3. Chronic hypertension affecting 4. Tachycardia 1. [...] cardiology standpoint We discussed that over the usp she should have continued evaluation of her blood pressure, etcetera for risk factor modification. I would anticipate a repeat echo in 3-5 years to assess left ventricular thickness, etcetera TODAYS ORDERS Orders Placed This Encounter Procedures POCT EKG FOLLOW UP Return for 6-9 months. PCP: JACQUES MCCARTHY MD Referring Physician: Terra Lundberg MD [address] [facility] [address] [place] [address] documented in this encounter [facility] 09-05-2024 Miscellaneous Notes I called Dr Dhillon [...] MD documented in this encounter [facility] 09-05-2024 Telephone encounter Note I called Dr Dhillon and reviewed with him recommendations for delivery at a tertiary care center as well as the necessity for cardiology evaluation He agrees with the plan Due to advanced gestational age the patient is to continue with the care with him until we can arrange for transfer of care TERRA LUNDBERG MD [facility] 09-05-2024 Miscellaneous Notes Called patient with report [...] MD documented in this encounter [facility] 09-05-2024 Telephone encounter Note Called patient with [...] of the pulmonary hypertension TERRA LUNDBERG MD [facility] 09-05-2024 History of Present illness Narrative [address] [facility] [address] September 05, 2024 Patient: Samantha Benjamin Date [...] is scheduled for Section on 09/14/24 at [facility]. Ms Samantha Benjamin is accompanied by her [...] (10 Units total) nightly. miscellaneous medical supply [facility] by miscellaneous route once. Pen for Gestational Diabetes, test strips omeprazole (PriLOSEC) 20 mg capsule Take 1 capsule (20 mg total) by mouth in the morning. 90 capsule 3 ONETOUCH ULTRA TEST strip TEST WITH 1 STRIP IN MORNING BEFORE BREAKFAST,1 HOUR AFTER EACH MEAL FOR A TOTAL OF 4 TIMES A DAY ONETOUCH ULTRA2 METER [facility] USE TO CHECK FASTING BLOOD SUGAR BEFORE [...] with parents Secondhand Smoke Exposure? No Vitals: 02/04/25 1113 BP: 141/82 BP Site: Right Arm [...] with normal heart rate with normal mechanical IN interval. I did not appreciate any ectopy.The [...] during cardiac examination I do recommend post efra echocardiogram which does not neccessarily need to [...] echocardiogram it can be done in the [facility] since I am responsible for [...] queries or concerns. Sincerely, Sanam Cesar M.D. Reflexologist [facility] This note is dictated with the use of M*Modal.Please note that this dictation was completed with computer voice recognition software. Quite often unanticipated grammatical, syntax, homophones, and other interpretive errors are inadvertently transcribed by the computer software. Please disregard these errors. Please excuse any errors that have escaped final proofreading. documented in this encounter [facility] 08-29-2024 History of Present illness Narrative Reason [...] nursing note reviewed. Exam conducted with a operating room technologist present. Vitals: Estimated body mass index is 41.42 kg/m as calculated from the following: Height as of 02/21/24: 5' 3 . Weight as of this [...] Zhen Dhillon DO documented in this encounter [facility] 08-22-2024 History of Present illness Narrative Reason for Appointment: Patient ID: Samantha Benjamin is a 29 y.o. female who presents for Routine Visit Patient presents today for Return OB appointment. MEDICATIONS Current Outpatient Medications Medication Instructions Alcohol Swabs (Alcohol Prep Pad) 70 % pads 1 Pad, Topical, Daily, Use four times daily to check FSBS. Blood Glucose Monitoring Suppl ([employer] Glucometer) w/Device kit 1 kit, Does not [...] nursing note reviewed. Exam conducted with a operating room technologist present. Vitals: Estimated body mass index is [...] times a day. Pt has appt at [facility] on 08/30/24. Reviewed glucose log with [...] Zhen Dhillon DO documented in this encounter [facility] 08-16-2024 History of Present illness Narrative Called patient 08/15/24 and 08/16/24 to inform patient of date and time for the Pediatric Cardiology Consultation. L/M for patient to return my call. documented in this encounter [facility] 08-15-2024 History of Present illness Narrative Video Visit via Real-time Synchronous Audiovisual Provider Location: [facility] MATERNAL- MEDICINE AT [address] [address] Patient Location: [facility] Office Patient Location Floral Decorator: None Video Visit Consent Statement: I discussed [...] that there are some limitations compared to [id number] evaluations. We elected to proceed. REASON FOR [...] outflow tracts on ultrasound BMI 40.0-44.9, adult ([facility]) Past Medical History: Diagnosis Date [...] evening., Disp: , Rfl: miscellaneous medical supply [facility], by miscellaneous route once., Disp: , Rfl: [...] and the other consultants, we search on TroopSwap and all the available care everywhere epic I did review all the imaging studies of the patient available on EMR, ordered by the primary care physician and the other project consultant HABITS: Patient activity no restrictions, diet [...] more likely to fail compared to insulin. meterman data on children whose mothers took oral [...] Chronic hypertension affecting 4. 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 Patient does have ultrasound appointment scheduled with us. Thank you for allowing me to participate in Samantha Benjamin . If there any questions please do not hesitate to contact us. Sincerely, Terra Lundberg MD, FACOG (she/hers) Maternal- Medicine [address] [place] [address] documented in this encounter [facility] 08-14-2024 History of Present illness Narrative Reason for Appointment: Patient ID: Samantha Benjamin is a 29 y.o. female who presents for No chief complaint on file. Patient presents today for Return OB appointment. MEDICATIONS Current Outpatient Medications Medication Instructions Alcohol Swabs (Alcohol Prep Pad) 70 % pads 1 Pad, Topical, Daily, Use four times daily to check FSBS. Blood Glucose Monitoring Suppl ([employer] Glucometer) w/Device kit 1 kit, Does not [...] nursing note reviewed. Exam conducted with a operating room technologist present. Vitals: Estimated body mass index is [...] Zhen Dhillon DO documented in this encounter [facility] 07-31-2024 History of Present illness [...] Tarango documented in this encounter [facility] 07-17-2024 History of Present illness [...] Zhen Dhillon DO documented in this encounter [facility] 07-14-2024 History of Present illness [...] yes Have you been seen here at [facility] in a previous ? no Recent ER visits or hospitalizations? no Bring blood sugar log or meter with you today? (Please bring them with you for every visit at [facility]) no Flu vaccine (Jun-September)? no Any [...] outflow tracts on ultrasound BMI 40.0-44.9, adult ([facility]) Past Medical History: Diagnosis Date [...] evening., Disp: , Rfl: miscellaneous medical supply [facility], by miscellaneous route once., Disp: , Rfl: [...] and the other consultants, we search on Tro[employer] and all the available care everywhere epic I did review all the imaging studies of the patient available on EMR, ordered by the primary care physician and the other project consultant HABITS: Patient activity no restrictions, diet [...] her 3 hour glucose tolerance test, refer [facility] for diabetes management.. 8. Patient came more than 1 hour late for her ultrasound appointment and therefore has been rescheduled at our [facility] site. DISPOSITION: At this point the patient is in complete care of her bakery demonstrator. Patient does have ultrasound appointment scheduled with us. Thank you for allowing me to participate in Samanthajavy Benjamin . If there any questions please do not hesitate to contact us. Sincerely, GREGG FOX MD documented in this encounter [facility] 06-15-2024 History of Present illness Narrative Reason [...] Tarango documented in this encounter [facility] 05-18-2024 History of Present illness [...] nursing note reviewed. Exam conducted with a operating room technologist present. Vitals: Estimated body mass index is [...] of MSAFP orders to have drawn at [facility] in [place]. Documented by Angela Butt LPN on behalf of: Zhen Dhillon DO documented in this encounter [facility] 04-20-2024 History of Present illness [...] Tarango documented in this encounter [facility] 03-22-2024 History of Present illness [...] nursing note reviewed. Exam conducted with a operating room technologist present. Vitals: Estimated body mass index is [...] or undercooked meat, and stay away from [facility]. Patient has been consulted regarding any further do's and don'ts of . Patient voiced understanding and all questions and concerns were answered. Scheduled 09/14/24. No orders of the defined types were placed in this encounter. Follow Up: Patient is to return in 4 weeks for routine OB appointment. Documented by Judie Gutierrez LPN on behalf of: Zhen Dhillon DO documented in this encounter [facility] 02-05-2021 Note OPERATIVE NOTE OPERATION DATE: 02-06-21 ANESTHETIC:Spinal with Duramorph. BORE MILL OPERATOR:ELVIA Prajapati PREOPERATIVE DIAGNOSIS: 1. Intrauterine at [...] to the Recovery Room in stable condition. [facility] Signed and Approved by: DR ZHEN DHILLON . 02/11/2021 11:15:00 [facility] 02-05-2021 Note DISCHARGE SUMMARY Discharge [...] Tylenol, any abdominal pain unrelieved with narcotics. [facility] Signed and Approved by: DR ZHEN DHILLON . 02/25/2021 23:13:00 [facility] Evaluation note No assessment inform ation available [facility] Work Phone: Evaluation note Diagnosis [...] HealthcareEvaluation note* Diagnosis Third trimester state, incidental 28 weeks gestation of Gestational diabetes mellitus (GDM) in third trimester, gestational diabetes method of control unspecified Hypertension, unspecified type ([facility]) Gestational diabetes mellitus (GDM), antepartum, [...] unspecified Chronic hypertension affecting BMI 40.0-44.9, adult ([facility]) arrhythmia affecting , antepartum Abnormality in heart rate/rhythm, antepartum condition or complication Polyhydramnios affecting Separation of chorion and amnion membranes, antepartum [facility] Diagnosis Abnormal ultrasonic finding on screening of mother, antepartum- Primary [facility]* Diagnosis Third trimester state, incidental 34 weeks gestation of Insulin controlled gestational diabetes mellitus (GDM) during , antepartum documented in this encounter [facility]Evaluation note* Diagnosis 34 weeks gestation of Third trimester state, incidental documented in this encounter [facility]* Diagnosis Pulmonary hypertension ([facility])- Primary Other chronic pulmonary heart diseases 35 weeks gestation of [facility] Diagnosis Pulmonary hypertension ([facility])- Primary Other chronic pulmonary heart diseases 35 weeks gestation of Chronic hypertension affecting Tachycardia Unspecified tachycardia documented [facility] this [facility]* Diagnosis arrhythmia affecting , antepartum- Primary Abnormality in heart rate/rhythm, antepartum condition or complication Abnormal ultrasonic finding on screening of mother, antepartum Anomaly of heart of fetus affecting , antepartum, single or unspecified fetus documented in this encounter [facility]* Diagnosis Gestational diabetes mellitus (GDM), antepartum, gestational diabetes method of control unspecified- Primary Chronic hypertension affecting documented in this encounter [facility]* Diagnosis Encounter for visit S/P section Other postprocedural status documented in this encounter [facility] HealthcareEvaluation note* Diagnosis 6 weeks follow-up S/P section Other postprocedural status Gestational diabetes mellitus (GDM), delivered, current hospitalization documented in this encounter [facility] HealthcareEvaluation note* Diagnosis Onset Date Resolution Status Admit Date Chronic pain acute May 9:01am Eczema of both external ears acute May 18, 2025 9:01am Family history of lupus acute O ctober 2024 9:01am Generalized anxiety disorder acute May 18, 2025 9:01am Hypertension acute May 9:01am Pulmonary hypertension acute Oc tober 2024 9:01am [facility] Work Phone: Instructions* Attachments The following attachments cannot be sent through Care Everywhere. * Preeclampsia ([facility]) * labor (Divehi) documented in this [facility] SystemInstructionsNot on file documented in this encounterProMobile [facility] SystemInstructionsNot on file documented in this encounterProMobile City Hospital Health SystemInstructionsNot on file documented in this encounterProLancaster [facility] SystemInstructionsNot on file documented in this encounterProMedica Health SystemInstructionsNot on file documented in this encounterProLancaster [facility] Health SystemInstructionsNot on file documented in this encounterProMedica Health SystemInstructionsNot on file documented in this encounterProLancaster [facility] Health SystemInstructionsNot on file documented in this encounterProLima Memorial Hospital SystemInstructionsNot on file documented in this encounterEast [facility] Health SystemReason for referral (narrative)No reason for referral information availableDetwiler Memorial Hospital Work Phone: Summary Purpose Family History Relationship Condition Age at Onset Recorded Date/T geena mother Lupus Unknown Fibromyalgia Unknown Rheumatoid arthritis Unknown father Diabetes mellitus Unknown Hypertension Unknown Advance Directives Advance Directive Response Recorded Date/ Time Advance Directives No January 30 3:45pm Date Activated Date Inactivated Comments 09/14/2024 9:11 AM 09/16/2024 4:09 PM Chief Complaint and Reason for Visit Chief Complaint 6 wks high blood pressure Chief Complaint Admit Date EST PCP May 18, 2025 9 :01am Reason for Visit Admit Date Chronic pain May 18, 2025 9 :01am Eczema of both external ears May 9:01am Family history of lupus May 18 9:01am Generalized anxiety disorder May 9:01am Hypertension May 18, 2025 9 :01am Pulmonary hypertension May 18 9:01am Additional Source Comments INFORMATION SOURCE (unrecogn ized section and content) DATE CREATED AUTHOR 10/15/2021 [facility] DATE CREATED AUTHOR AUTHOR'S ORGANIZ ATION 02/19/2024 [facility] DATE CREATED AUTHOR AUTHOR'S ORGANIZ ATION 09/10/2024 [facility] DATE CREATED AUTHOR AUTHOR'S ORGANIZ ATION 09/13/2024 [facility] DATE CREATED AUTHOR AUTHOR'S ORGANIZ ATION 09/16/2024 [facility] DATE CREATED AUTHOR AUTHOR'S ORGANIZ ATION 10/25/2024 [facility] EPIC Care Teams (unrecognized sec tion and content) Team Status: Active Member Role Status Dates Jacques Mccarthy MD Primary Care Provider Active Team Status: Inactive Member Role Status Dates Jacques Mccarthy MD Primary Care Provider Active Start: January 31, 2024 End: January 31, 2024 Kwesi Dudley DO Emergency Provider Active St art: January 31, 2024 End: January 31, 2024 Airplane Patrol Pilot Relationship Specialty Start Date End Date Jacques Mccarthy MD [address] [place] [address] PCP - General Family Medicine 02/08/24 Airplane Patrol Pilot Relationship Specialty Start Date End Date Jacques Mccarthy MD [address] [place] [address] PCP - General Family Medicine 02/08/24 Airplane Patrol Pilot Relationship Specialty Start Date End Date Jacques Mccarthy MD [address] [facility] [place] [address] PCP - General Family Medicine 02/08/24 Airplane Patrol Pilot Relationship Specialty Start Date End Date Jacques Mccarthy MD [address] [facility] [place] [address] PCP - General Family Medicine 02/08/24 Airplane Patrol Pilot Relationship Specialty Start Date End Date Jacques Mccarthy MD [address] [facility] [place] [address] PCP - General Family Medicine 02/08/24 Airplane Patrol Pilot Relationship Specialty Start Date End Date Jacques Mccarthy MD [address] [facility] [place] [address] PCP - General Family Medicine 02/08/24 Airplane Patrol Pilot Relationship Specialty Start Date End Date Jacuqes Mccarthy MD [address] [facility] [place] [address] PCP - General Family Medicine 02/08/24 Airplane Patrol Pilot Relationship Specialty Start Date End Date Jacques Mccarthy MD [address] [facility] [place] [address] PCP - General Family Medicine 02/08/24 Airplane Patrol Pilot Relationship Specialty Start Date End Date Jacques Mccarthy MD [address] [facility] [place] [address] PCP - General Family Medicine 02/08/24 Airplane Patrol Pilot Relationship Specialty Start Date End Date Jacques Mccarthy MD [address] [facility] [place] [address] PCP - General Family Medicine 02/08/24 Airplane Patrol Pilot Relationship Specialty Start Date End Date Jacques Mccarthy MD [address] [facility] [place] [address] PCP - General Family Medicine 02/08/24 Airplane Patrol Pilot Relationship Specialty Start Date End Date Jacques Mccarthy MD [address] [facility] [place] [address] PCP - General Family Medicine 02/08/24 Airplane Patrol Pilot Relationship Specialty Start Date End Date Jacques Mccarthy MD [address] [facility] [place] [address] PCP - General Family Medicine 02/08/24 Airplane Patrol Pilot Relationship Specialty Start Date End Date Jacques Mccarthy MD PCP - General Family Medicine 10/07/20 Airplane Patrol Pilot Relationship Specialty Start Date End Date Jacques Mccarthy MD PCP - General Family Medicine 10/07/20 Airplane Patrol Pilot Relationship Specialty Start Date End Date Jacques Mccarthy MD PCP - General Family Medicine 10/07/20 Airplane Patrol Pilot Relationship Specialty Start Date End Date Jacques Mccarthy MD [address] [facility] [place] [address] PCP - General Family Medicine 02/08/24 Airplane Patrol Pilot Relationship Specialty Start Date End Date Jacques Mccarthy MD [address] [place] [address] PCP - General Family Medicine 02/08/24 Airplane Patrol Pilot Relationship Specialty Start Date End Date Jacques Mccarthy MD [address] [place] [address] PCP - General Family Medicine 02/08/24 Airplane Patrol Pilot Relationship Specialty Start Date End Date Jacques Mccarthy MD PCP - General Family Medicine 10/07/20 Airplane Patrol Pilot Relationship Specialty Start Date End Date Jacques Mccarthy MD PCP - General Family Medicine 10/07/20 Airplane Patrol Pilot Relationship Specialty Start Date End Date Jacques Mccarthy MD PCP - General Family Medicine 10/07/20 Airplane Patrol Pilot Relationship Specialty Start Date End Date Jacques Mccarthy MD [address] [place] [address] PCP - General Family Medicine 02/08/24 Airplane Patrol Pilot Relationship Specialty Start Date End Date Jacques Mccarthy MD PCP - General Family Medicine 10/07/20 Airplane Patrol Pilot Relationship Specialty Start Date End Date Jacques Mccarthy MD PCP - General Family Medicine 10/07/20 Airplane Patrol Pilot Relationship Specialty Start Date End Date Jacques Mccarthy MD PCP - General Family Medicine 10/07/20 Airplane Patrol Pilot Relationship Specialty Start Date End Date Jacques Mccarthy MD PCP - General Family Medicine 10/07/20 Airplane Patrol Pilot Relationship Specialty Start Date End Date Jacques Mccarthy MD PCP - General Family Medicine 10/07/20 Airplane Patrol Pilot Relationship Specialty Start Date End Date Jacques Mccarthy MD [address] [place] [address] PCP - General Family Medicine 02/08/24 Airplane Patrol Pilot Relationship Specialty Start Date End Date Jacques Mccarthy MD PCP - General Family Medicine 10/07/20 Team Status: Active Member Role/Relationship Status Dates Fely Nieves DO Primary Care Provider Active Team Status: Inactive Member Role/Relationship Status Dates Fely Nieves DO Primary Care Provider Active Start: May 18, 2025 End: May 18, 2025 Fely Nieves DO Attending Provider Active Sta rt: May 18, 2025 End: May 18, 2025 Goals (unrecognized section and content) Goals may [...] this encounterNot on filedocumented as of this encounterGoals may be documented in an alternate section Reason for Visit (unrecogniz ed section and content) Reason Comments Routine Visit Reason Comments 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 HTN 36 WKS G ESTATION ECHO @ [place] SCHED W PT Specialty Diagnoses / Procedures Referred By Contac t Referred To Contact Cardiology Diagnoses Pulmonary hypertension ([facility]) 35 weeks gestation of Terra Lundberg MD [address], [address] [place] [address] Phone: tel: fax: Antonio Harden MD [address] [place] [address] Phone: tel: fax: Referral ID Status Reason Start Date Expiration Date Visits Requested Visits Authorized [id number] Pending Review Specialty Services Required 09/05/2024 09/05/2025 1 1 Reason Comments Observation of PACs Specialty Diagnoses / Procedures Referred By Contac t Referred To Contact Pediatric Cardiology Diagnoses Abnormal ultrasonic finding on screening of mother, antepartum Terra Lundberg MD [address], [address] [place] [address] Phone: tel: fax: Sanam Cesar MD [address] [place] [address] Phone: tel: fax: Referral ID Status Reason Start Date Expiration Date Visits Requested Visits Authorized [id number] Pending Review Specialty Services Required 08/15/2024 08/15/2025 1 1 Reason Comments elevated blood glucose levels Hypertension Reason Comments Post-op Visit Reason Comments Post-op Visit Follow-up FOR RECORDS PERTAINING TO PATIENTS WHO ARE [...] BE BASED ON THE PRIMARY CLINICAL RECORDS. [facility]. provides no warranty or guarantee of the accuracy or completeness of information in this document.
[2025-05-18 12:47] LABS: Hematocrit 46.0 % (36.0-48.0); Hemoglobin 15.0 g/dL (12.0-16.0); Immature Granulocytes Abs Auto 0.05 10^3/uL (0.00-0.03); Immature Granulocytes Pct Auto 0.4 % (0.0-0.5); Lymphocytes Absolute Auto 1.5 10^3/uL (1.2-3.8); Mean Corpuscular HGB Conc 32.6 g/dL (29.9-35.2); Mean Corpuscular Hemoglobin 26.5 pg (26.7-34.0); Mean Corpuscular Volume 81.4 fL (81.0-99.0); Platelet Count 343 10^3/uL (150-450); Red Blood Count 5.65 10^6/uL (4.20-5.40); White Blood Count 11.5 10^3/uL (4.0-11.0)
[2025-05-18 14:10] LABS: Alanine Aminotransferase 28 U/L (14-59); Albumin Globulin Ratio 1.0; Albumin Level 4.4 g/dL (3.4-5.0); Alkaline Phosphatase 119 U/L (46-116); Anion Gap 14.0; Aspartate Amino Transferase 12 U/L (15-37); Blood Urea Nitrogen 11.0 mg/dL (7.0-18.0); Calcium 9.2 mg/dL (8.5-10.1); Carbon Dioxide 26.7 mmol/L (21.0-32.0); Chloride 103 mmol/L (98-107); Cholesterol 220 mg/dL (<=200); Estimated GFR (African America >60 (>=60 mL/min/1.73m^2); Estimated GFR (Non-African Ame >60 (>=60 mL/min/1.73m^2); Globulin 4.5 g/dL; Glucose 92 mg/dL (74-106); HDL Cholesterol 59 mg/dL (40-60); Potassium 3.7 mmol/L (3.5-5.1); Sodium 140 mmol/L (136-145); TSH W/ REFLEX FT4 0.897 uIU/mL (0.358-3.740); Total Protein 8.9 g/dL (6.4-8.2); Triglycerides 76 mg/dL (<=150); VLDL CHOLESTEROL 15.2 mg/dL
[2025-05-21 16:17] LABS: BOX Test Date Sent 10/17/25; BOX Test Reference Lab Cleveland Clinic; BOX Test Sent Out Urine Metanephrines
[2025-05-22 12:15] LABS: BOX Test Result 10/21/25
[2025-05-23 05:07] LABS: Renin Activity, Plasma 1.265 ng/mL/hr (0.167-5.380)
[2025-05-23 20:08] LABS: Aldosterone LCMS, Serum 6.0 ng/dL (0.0-30.0)
== END 2025-05-18 11:03 | disposition home or self-care (01) ==
LOC: LAB 11:06
PROVIDERS: PCP Student in an Organized Health Care Education/Training Program; Visit Provider Student in an Organized Health Care Education/Training Program
DX: O24.419 Gestational diabetes mellitus in pregnancy, unspecified control (principal); I10 Essential (primary) hypertension; G89.29 Other chronic pain
CPT/HCPCS: 36415; 80053; 80061; 82043; 82088; 82384; 82570; 83036; 83835; 84244; 84443; 85025; 85652; 86038; 86140; 86431

== ENCOUNTER 2025-05-24 08:59 | Outpatient (OUT) | payer MEDICAID, SELFPAY ==
--- NOTE | 2025-05-24 09:00 | CA_ITS ---
Patient Name: RADAMES BENJAMIN MR#: [id number] : 1995 Exam Date: 05/24/2025 Ordering Doctor: SUMMER ARIZMENDI ECHOCARDIOGRAM REPORT PROCEDURE: CA ECHO DOPPLER COMPLETE INDICATIONS: Pulmonary hypertension COMPARISON: None. DESCRIPTION: COMPLETE ECHOCARDIOGRAM Real-time transthoracic echocardiography with 2D, M-mode, spectral and color flow Doppler performed. QUALITY: Technical quality was good. LEFT VENTRICLE: Normal chamber size. Mild concentric left ventricular hypertrophy. Global left ventricular systolic function is normal. LV EF: Estimated left ventricular ejection fraction is 5-60%. DIASTOLIC: Normal diastolic function. ATRIAL SEPTUM: No clear evidence of interatrial septal communication by color Doppler. LEFT ATRIUM: Normal chamber size. RIGHT ATRIUM: Mild dilatation. RIGHT VENTRICLE: Mild dilatation. Normal right ventricular systolic function. TRICUSPID VALVE: Normal mobility and thickness. No stenosis with trivial regurgitation. No evidence of pulmonary hypertension. RVSP 24 mmHg MITRAL VALVE: Normal mobility and thickness. No evidence of mitral valve stenosis. There is no mitral annular calcification. No mitral regurgitation. AORTIC VALVE: Normal trileaflet appearance. No visible sclerosis. Normal leaflet mobility. No evidence of aortic valve stenosis. No aortic regurgitation. AORTIC ROOT: Normal diameter and appearance, measuring 3.1 cm. The ascending aorta is normal in size measuring 2.7 cm. PULMONIC VALVE: Normal thickness and mobility. No stenosis. Trivial regurgitation. PERICARDIUM: Trivial pericardial effusion. IVC: Collapses with inspiration. Normal size. PLEURA: CONCLUSION: 1. Mild concentric left ventricular hypertrophy with normal systolic function. Estimated LVEF is 55 to 60%. 2. Mildly dilated right ventricle with normal systolic function. 3. Mildly dilated right atrium. 4. Normal diastolic function. 5. No significant valvular dysfunction. 6. Normal right-sided pressures. Adult Echocardiography Procedure Report Left Ventricle LVEDD (3.7 - 5.6 cm): 4.64 cm LVESD (2.2 - 4.0 cm): 3.18 cm LVIVS thickness (0.6 - 1.2 cm): 1.04 cm LVPW thickness (0.5 - 1.0 cm): 1.17 cm e': 0.10 m/s E - e': 7.64 LVOT Max Gradient: 3.67 mm[Hg] LVOT Area (cm2): 0.96 m/s Peak Velocity (LVOT): 0.96 m/s Mean Velocity (LVOT): 0.68 m/s LVOT Diameter 1.99 cm Left Ventricular Ejection Fraction: 55-60 % Left Atrium LA Volume Index (2D A2C): 24.95 ml/m2 Left Atrium Systolic Dimension: 3.70 cm Mitral Valve MV E to A Ratio: 1.14 Mitral Valve A-Wave Peak Velocity: 0.71 m/s Mitral Valve E-Wave Peak Velocity: 0.80 m/s Right Ventricle RV Internal Diastolic Dimension: 4.67 cm Aorta AO Root Diam: 3.08 cm Ascending Ao Diam: 2.68 cm Aortic Valve AoV Area (Peak Buster): 2.46 cm2, 2.46 cm2 AoV Area (VTI): 2.47 cm2, 2.47 cm2 Peak Velocity(Antegrade Flow): 1.21 m/s Peak Gradient(Antegrade Flow): 5.83 mm[Hg] Mean Velocity(Antegrade Flow): 0.86 m/s Mean Gradient(Antegrade Flow): 3.36 mm[Hg] Velocity Time Integral: 25.42 cm Tricuspid Valve Peak Velocity (Regurgitant Flow): 2.29 m/s, 1.96 m/s, 2.30 m/s Pulmonic Valve Mean Gradient: 2.87 mm[Hg], 2.33 mm[Hg] Mean Velocity: 0.77 m/s, 0.72 m/s Peak Velocity: 1.07 m/s Peak Gradient: 5.42 mm[Hg], 3.81 mm[Hg] Right Atrium Right Atrium Systolic Pressure: 93.14 ml, 93.14 ml Dictated by: Juan Bonilla M.D. on 05/24/2025 at 12:16 Approved by: Juan Bonilla M.D. on 05/24/2025 at 12:22
--- OUTSIDE RECORDS SUMMARY | 2025-05-24 09:02 | XMS_ITS | Clinical Summary ---
Author Organization [facility] Address [address] [place] [address] Care Team Providers Care Swimming Pool Serviceperson Name Role Phone Unavailable Primary Care Provider Unavailabl e Allergies No known active allergies Medications No known medications Active Problems ProblemNoted DateDiagnosed DatePain, abdominal, etwkauidtut00/07/2012 Headache(784.0)11/07/2011Tremor, axvwbdyfi02/07/2012Keratosis vlfwenu6611/07/2011 Encounters DateTypeDepartmentCare MtxzMvnenjxufaa28/17/2025Lab Requisition [facility] [address] [place] [address] Fely Nieves DO from Last 3 Months Family History Medical HistoryRelationCommentsHeadacheBrotherHeartMaternal Auntcardiomyopathy HeartMaternal GrandfatherAMI- at age 44 yrsArthritisMotherrheumatoid (dx at age 6 yrs)GIMotherIBS/intermittent 'attacks' with diarrhea and vomiting fibromyalgia [Other]MotherRelationStatusCommentsBrotherMaternal AuntMaternal GrandfatherMother Social History Tobacco UseTypesPacks/DayYears UsedDateSmoking Tobacco: Passive Smoke Exposure - Never SmokerSmokeless Tobacco: NeverAlcohol UseStandard Drinks/WeekCommentsNot Asked0 (1 standard drink = 0.6 oz pure alcohol)CommentsUnknownSex and Gender InformationValueDate RecordedSex Assigned at BirthNot on fileLegal Sex Fluvur2807/03/2012 10:14 AM ESTGender IdentityNot on fileSexual OrientationNot on file Last Filed Vital Signs Vital SignReadingTime TakenCommentsBlood Gymyomyn685/7105 1:10 PM EDT Kpneq8297 1:10 PM EDTTemperature--Respiratory Rate--Oxygen Saturation-- Inhaled Oxygen Concentration--Szdewx12.1 kg (121 lb 6.4 oz)12/02/2011 1:10 PM HHQOrhodb520.3 cm (5' 3.11 )12/02/2011 1:10 PM EDTBody Mass Index21.43012/02/2011 1:10 PM EDT Plan of Treatment Health MaintenanceDue DateLast DoneCommentsAnxiety Ztckmnzrq40/03/2015Depression Zzvwqitch50/03/2015HIV Htxvfrqju66/03/2015Hepatitis C Escdoaylw06/03/2015 DTaP,Tdap,Td Vaccine (1 - Tdap)2016Hepatitis B Vaccine (1 of 3 - 19+ 3- dose series)2016Cervical Cancer Pooicmsmk72/03/2018HPV Vaccine (1 - 3-dose SCDM series)4Covid-19 Vaccine (1 - 2024- season)2025Influenza Vaccine (#1)2025 Procedures Procedure NamePriorityDate/TimeAssociated DiagnosisCommentsCREATININE (SPECIAL CHEM)Lsllsid2605/18/2025 11:56 AM EDTMETANEPHRINES RAN TXIdllztu30/17/2025 11:56 AM EDT METANEPHRINES RAN ZRXzmuace85/17/2025 11:56 AM EDT from Last 3 Months Results * METANEPHRINES RAN UR (05/18/2025 11:56 AM EDT)ComponentValueRef RangeTest MethodAnalysis TimePerformed AtPathologist SignatureMetanephrine, Urine Random 750 - 227 ug/g creat1 10:30 AM EDTCCINCIN[facility] Normetanephrine, Urine Gzoaic450630 - 450 ug/g creat1 10:30 AM EDT [facility] MAIN LABMetanephrine Total, Urine Zzssui743921 - 677 ug/g creat1 10:30 AM EDTCCLEVELAND CLIN[facility]AB[facility]ATION LABComment: Urine Metanephrine test performed by Liquid Chromatography Tandem Mass Spectrometry (LC-MS/MS). Results obtained with different methods or kits cannot be used interchangeably. This test was developed, and its performance characteristics determined by the [facility] Department of Pathology and Laboratory Medicine. It has not been cleared or approved by the FDA. The [facility] Department of Pathology and Laboratory Medicine is regulated under CLIA as qualified to perform high-complexity testing. This test is used for clinical purposes. It should not be regarded as investigational or for research. Specimen (Source)Anatomical Location / LateralityCollection Method / Volume Collection TimeReceived TimeUrineURINE SPECIMEN / Unebvxe5305/18/2025 11:56 AM EDT 05/18/2025 11:23 PM EDT Narrative Authorizing ProviderResult TypeResult StatusKaitlou Nieves DOLABORATORYFinal ResultPerforming OrganizationAddressCity/State/ZIP CodePhone Number [facility] [address] [place] [address], * CREATININE (SPECIAL CHEM) (05/18/2025 11:56 AM EDT)Specimen (Source)Anatomical Location / LateralityCollection Method / VolumeCollection TimeReceived Time UrineURINE SPECIMEN / Fihqdyp8205/18/2025 11:56 AM EDT1 11:23 PM EDT Narrative Authorizing ProviderResult TypeResult StatusKaittomas Cadenao DOLABORATORYFinal ResultPerforming OrganizationAddressty/[facility]/ZIP CodePhone Number [facility] [address] [place] [address], from Last 3 Months Insurance MemberSubscriberPlan / Payer (Effective 2018-Present)Name:Samantha Benjamin Relation to Subscriber:ChildName:PIA BENJAMIN Date of :1967 (Home) Address: [address] [place] [address] Payer ID:Not on file Group ID:Not on file Type:[facility] Address: [place] [id number]
--- OUTSIDE RECORDS SUMMARY | 2025-05-24 09:02 | XMS_ITS | Encounter Summary ---
Author Organization [facility] Address [address] [place] [address] Care Team Providers Care Nurse Receptionist Name Role Phone Unavailable Primary Care Provider Unavailabl e Source Comments In the event this information is protected by the Federal Confidentiality of Alcohol and Drug AbusePatient Records regulations: The Federal rules restrict any use of the information to criminally investigate or prosecute any alcohol or drug abuse patient.[facility] Encounter Details DateTypeDepartmentCare Team (Latest Contact Info)Fegkrqqpclr07/17/2025Lab Requisition [facility] [address] [place] [id number] Fely Nieves DO [address] [place] [id number] Social History Tobacco UseTypesPacks/DayYears UsedDateSmoking Tobacco: Passive Smoke Exposure - Never SmokerSmokeless Tobacco: NeverAlcohol UseStandard Drinks/WeekCommentsNot Asked0 (1 standard drink = 0.6 oz pure alcohol)CommentsUnknownSex and Gender InformationValueDate RecordedSex Assigned at BirthNot on fileLegal Sex Lrzurm2607/03/2012 10:14 AM ESTGender IdentityNot on fileSexual OrientationNot on filedocumented as of this encounter Plan of Treatment Not on file documented as of this encounter Procedures Procedure NamePriorityDate/TimeAssociated DiagnosisCommentsMETANEPHRINES RAN UR Fzwhxtu2605/18/2025 11:56 AM EDT CREATININE (SPECIAL CHEM)Kznfxec7905/18/2025 11:56 AM EDTMETANEPHRINES RAN UR Wntbexd6005/18/2025 11:56 AM EDT documented in this encounter Results * CREATININE (SPECIAL CHEM) (05/18/2025 11:56 AM EDT)Specimen (Source)Anatomical Location / LateralityCollection Method / VolumeCollection TimeReceived Time UrineURINE SPECIMEN / Bsjiupi6105/18/2025 11:56 AM EDT1 11:23 PM EDT Narrative Authorizing ProviderResult TypeResult StatusKaitlou Nieves DOLABORATORYFinal ResultPerforming OrganizationAddressCity/State/[facility] CodePhone Number [facility] [address] [place] [address] * METANEPHRINES RAN UR (05/18/2025 11:56 AM EDT)ComponentValueRef RangeTest MethodAnalysis TimePerformed AtPathologist SignatureMetanephrine, Urine Random 750 - 227 ug/g creat1 10:30 AM EDTCDOCT[facility] Normetanephrine, Urine Ljnxuc208127 - 450 ug/g creat1 10:30 AM EDT [facility] LABMetanephrine Total, Urine Qkbwno863909 - 677 ug/g creat1 10:30 AM EDTCDOCTORS HOSPITAL MAIN LABComment: Urine Metanephrine test performed by Liquid Chromatography Tandem Mass Spectrometry (LC-MS/MS). Results obtained with different methods or kits cannot be used interchangeably. This test was developed, and its performance characteristics determined by the [facility] Department of Pathology and Laboratory Medicine. It has not been cleared or approved by the FDA. The [facility] Department of Pathology and Laboratory Medicine is regulated under CLIA as qualified to perform high-complexity testing. This test is used for clinical purposes. It should not be regarded as investigational or for research. Specimen (Source)Anatomical Location / LateralityCollection Method / Volume Collection TimeReceived TimeUrineURINE SPECIMEN / Wnvrgsg7905/18/2025 11:56 AM EDT 05/18/2025 11:23 PM EDT Narrative Authorizing ProviderResult TypeResult StatusKaitlou Nieves DOLABORATORYFinal ResultPerforming OrganizationAddressCity/State/ZIP CodePhone Number [facility] [address] documented in this encounter Visit Diagnoses Not on filedocumented in this encounter
--- OUTSIDE RECORDS SUMMARY | 2025-05-24 09:02 | XMS_ITS | Clinical Summary ---
Author Organization [facility] Address [address] [place] [address] Care Team Providers Care Administrative Services Director Name Role Phone Hernán Mccarthy MD Primary Care Provider [phone] Allergies No known active allergies Medications MedicationSigDispense QuantityRefillsLast FilledStart DateEnd DateStatus omeprazole (PriLOSEC) [address] capsule Indications:Heartburn during in second trimester ([facility])Take 1 capsule (20 mg) by mouth in the morning. Take before meals. Do not crush or chew.. 30 capsule /5Active norethindrone (Micronor) 0.35 MG tablet Indications:6 weeks follow-up ([facility]),S/P sectionTake 1 tablet (0.35 mg) by mouth Daily 28 tablet /[id number] citalopram (CeleXA) 20 MG tablet Indications:Anxiety, generalizedTake 1 tablet (20 mg) by mouth in the morning. 30 tablet 11011/03/324951/6Active Active Problems ProblemNoted DateDiagnosed Date6 weeks follow-up ([facility])10/24/2024 S/P yfsefrv4410/24/2024 Family History Medical HistoryRelationNameCommentsSleep apneaFatherRelationNameStatusComments Father Social History Tobacco UseTypesPacks/DayYears UsedDateSmoking Tobacco: Never Assessed CommentsNoSex and Gender InformationValueDate RecordedSex Assigned at BirthNot on fileLegal TxrKjaakk80/15/2023 11:47 PM EDTGender IdentityNot on fileSexual OrientationNot on file Last Filed Vital Signs Vital SignReadingTime TakenCommentsBlood Zjpzknoo284/8410/24/2024 2:41 PM EDT Pulse--Temperature--Respiratory Rate--Oxygen Saturation--Inhaled Oxygen Concentration--Znqibt61.5 kg (206 lb 1.9 oz)10/24/2024 2:41 PM YMLHprusv681 cm (5' 3 )02/22/2024 10:05 AM EDTBody Mass Index36.51002/22/2024 10:05 AM EDT Plan of Treatment Not on file Insurance Care Teams Team MemberRelationshipSpecialtyStart DateEnd Hernán Mccarthy MD [address] [place] [address] PCP - GeneralFamily Medicine02/08/24
--- OUTSIDE RECORDS SUMMARY | 2025-05-24 09:02 | XMS_ITS | Clinical Summary ---
Author Organization [facility] Address [id number] [address] [place] [address] Care Team Providers Care Fitness Services Manager Name Role Phone Hernán Mccarthy MD Primary Care Provider [phone] Allergies No known active allergies Medications MedicationSigDispense QuantityRefillsLast FilledStart DateEnd DateStatus miscellaneous medical supply [facility] by miscellaneous route once. Pen for Gestational Diabetes, test stripsActive labetaloL (NORMODYNE) 100 mg tablet Take 3 tablets (300 mg total) by mouth in the morning and 3 tablets (300 mg total) at noon and 3 tablets (300 mg total) in the evening.Active citalopram (CeleXA) 20 mg tablet Indications:Gestational diabetes mellitus (GDM), antepartum, gestational diabetes method of control unspecifiedTake 1 tablet (20 mg total) by mouth in the morning. 30 tablet 07/14/2024ctive TuggUCH ULTRA2 METER [facility] USE TO CHECK FASTING BLOOD SUGAR BEFORE BREAKFAST & 1 HR AFTER EACH MEAL FOR TOTAL OF 4 TIMES DAILY07/31/2024ctive norethindrone (MICRONOR) 0.35 mg tablet Take 1 tablet (0.35 mg total) by mouth in the morning. 28 tablet 1205Active acetaminophen (TYLENOL EXTRA STRENGTH) 500 mg tablet Take 2 tablets (1,000 mg total) by mouth every 8 (eight) hours. 30 tablet 5Active docusate sodium (COLACE) 100 mg capsule Take 1 capsule (100 mg total) by mouth in the morning and 1 capsule (100 mg total) before bedtime. 10 capsule 5Active ibuprofen (MOTRIN) 800 mg tablet Take 1 tablet (800 mg total) by mouth every 8 (eight) hours. 30 tablet 5Active Active Problems ProblemNoted DateDiagnosed DateDelivery of by section 09/14/20242310Ecnvsltkdgc32/07/2025Separation of chorion and amnion membranes, pcvgnbrmbo83/14/2025Polyhydramnios affecting rstwkiemb62/14/2025Fetal arrhythmia affecting , ifvstcvumk63/14/2025Gestational diabetes mellitus (GDM) in third qsqunooau94/14/2025Gestational diabetes mellitus (GDM), antepartum 06/21/2024Fetal cardiac outflow tracts on deosunxykg27/20/2024hronic hypertension affecting Resolved Problems ProblemNoted DateDiagnosed DateResolved DateBMI 40.0-44.9, adult06/21/2024 09/08/2024 Encounters DateTypeDepartmentCare YgkhPdhawakxzie63/25/2025Telephone [facility] [address] [place] [address] Angela Hodgson from Last 3 Months Immunizations No known immunizations Family History Medical HistoryRelationNameCommentsHeart defectBrothermurmurSleep apneaFather Heart defectMaternal Aunt 1murmurHeart defectMaternal Aunt 2CardiomyopathyHeart attackMaternal GrandfatherSudden deathMaternal GrandfatherDiabetesMaternal GrandmotherArrhythmiaMotherPVCsLupusMotherRheum arthritisMotherDiabetesPaternal GrandfatherProstate cancerPaternal GrandfatherAsthmaNeg HxClotting disorderNeg HxHigh CholesterolNeg HxHypertensionNeg HxSeizuresNeg HxStrokeNeg HxThyroid IssuesNeg HxRelationNameStatusCommentsBrotherFatherMaternal Aunt 1Maternal Aunt 2AliveMaternal GrandfatherMaternal GrandmotherMotherPaternal Grandfather Social History Tobacco UseTypesPacks/DayYears UsedDateSmoking Tobacco: FormerCigarettes Smokeless Tobacco: Never Tobacco Cessation:Counseling Given: Not Answered Comments:quit 3 years ago Alcohol UseStandard Drinks/WeekCommentsNot Currently0 (1 standard drink = 0.6 oz pure alcohol)ChildcareAnswerDate TsyypmdnVfmqvigldPeaoxwu30/22/2021mployment AnswerDate EgtmqsaySsiagleeitCzrlrju13/22/2021Hunger ScreeningAnswerDate RecordedWithin the past 12 months we worried whether our food would run out before we got money to buy more.Never True09/05/2024Within the past 12 months the food we bought just didn't last and we didn't have money to get more.Never True09/05/2024Purpose - LifeAnswerDate RecordedPurpose and direction in life Nynoywv1708/23/2020CommentsNoSex and Gender InformationValueDate Recorded Sex Assigned at BirthNot on fileLegal GgvYbwdxb82/22/2021 1:40 PM ESTGender IdentityNot on fileSexual OrientationNot on file Last Filed Vital Signs Vital SignReadingTime TakenCommentsBlood Genabfbd282/58009/16/2024 11:40 AM EST Pumnx965309/16/2024 11:40 AM WTVQjkitrbmllf70 ??C (98.6 ??F)09/16/2024 11:40 AM ESTRespiratory Dclr250109/16/2024 11:40 AM ESTOxygen Eojiztgkih34%09/14/2024 7:00 PM ESTInhaled Oxygen Concentration--Imozzi918.3 kg (230 lb)09/14/2024 1:34 PM DZIWsimky631 cm (5' 3 )09/14/2024 1:34 PM ESTBody Mass Index40.7409/14/2024 1:34 PM EST Plan of Treatment Health MaintenanceDue DateLast DoneCommentsDepression Qcobnqxsi08/03/2009dult BMI Follow Up Plan2015DTaP,Tdap and Td Vaccines (1 - Tdap)2016Pap Smear2018Influenza Iaftman9604/02/2025dult BMI Npziotzhw26/13/2026 09/14/2024Tobacco Iurhhefnx62 Medical Devices Not on file Insurance Advance Directives * Full Code (Latest Code Status on File) Date ActivatedDate InactivatedComments09/14/2024 9:11 AM09/16/2024 4:09 PM Care Teams Team MemberRelationshipSpecialtyStart DateEnd Date Hernán Mccarthy MD PCP - GeneralFamily Medicine10/07/20
--- OUTSIDE RECORDS SUMMARY | 2025-05-24 09:05 | XMS_ITS | CCD ---
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 Name Role Phone JACQUIE, DR FAJARDO [...] MIGUEL ÁNGEL, DR HANNA Primary Care Unavailable WORCESTER, DR IRINEO Pompa Consulting Unavailable JACQUIE, DR FAJARDO Attending Unavailable JACQUIE, DR FAJARDO Admitting Unavailable MIGUEL ÁNGEL, DR HANNA Primary Care Unavailable JACQUIE, DR FAJARDO Consulting Unavailable JACQUIE, DR FAJARDO Attending Unavailable JACQUIE, DR FAJARDO Consulting Unavailable MIGUEL ÁNGEL, DR HANNA Primary Care Unavailable JACQUIE, DR FAJARDO Admitting Unavailable JACQUIE, DR FAJARDO Consulting Unavailable LUIS MIGUEL, PENELOPE Admitting Unavailable JONGY, DR HANNA Primary Care Unavailable PENELOPE BOLANOS Attending Unavailable ZIEBER, DR MICHELLE Matthews Consulting Unavailable LUIS MIGUEL, PENELOPE Consulting Unavailable JONGY, DR HANNA Primary Care Unavailable GARRET, DR IRINEO Pompa Consulting Unavailable JACQUIE, DR FAJARDO Attending Unavailable JACQUIE, DR FAJARDO Admitting Unavailable JACQUIE, DR FAJARDO Consulting Unavailable JACQUIE, DR FAJARDO Consulting Unavailable LUIS MIGUEL, PENELOPE Admitting Unavailable LUIS MIGUEL, PENELOPE Attending Unavailable JONGY, DR HANNA Primary Care Unavailable ZIEBER, DR MICHELLE Matthews Consulting Unavailable JACQUIE, DR FAJARDO Attending Unavailable JACQUIE, DR FAJARDO Admitting Unavailable JONGY, DR HANNA Primary Care Unavailable JONGY, DR HANNA Primary Care Unavailable JACQIUE, DR FAJARDO Attending Unavailable JACQUIE, DR FAJARDO Admitting Unavailable JACQUIE, DR FAJARDO Attending Unavailable JACQUIE, DR FAJARDO Admitting Unavailable HOY, DR HANNA Primary Care Unavailable JACQUIE, DR FAJARDO Consulting Unavailable JACQUIE, DR FAJARDO Attending Unavailable HOY, DR HANNA Primary Care Unavailable JACQUIE, DR FAJARDO Admitting Unavailable JACQUIE, DR FAJARDO Admitting Unavailable GARRET, DR IRINEO Pompa Consulting Unavailable MIGUEL ÁNGEL, DR HANNA [facility] Care Unavailable JACQUIE, DR FAJARDO Attending Unavailable JACQUIE, DR FAJARDO Consulting Unavailable JACQUIE, DR FAJARDO Attending Unavailable HOY, DR HANNA [facility] Care Unavailable JACQUIE, DR FAJARDO Admitting Unavailable MD Jacques Mccarthy Primary Care Provider [phone] DO Kwesi Dudley Emergency Provider Kwesi Dudley Admitting Unavailable Kwesi Dudley Attending Unavailable Jacques Mccarthy Primary Care Unavailable Jacques Mccarthy MD Primary Care Provider [phone] Jacques Mccarthy MD Primary Care Provider [phone] ZHEN DHILLON Referring Unavailable JACQUES MCCARTHY Primary [...] ble HOY, JACQUES M Primary Care Unavailable TORRES, IRINEO Jesus Admitting Unavailable TORRES, IRINEO Jesus Attending Unavailable HOY, JACQUES M [...] Unavailable Jacques Mccarthy MD Primary Care Provider Fely Nieves DO Primary Care Provider [phone] Fely Nieves DO Attending Provider Medications Current Medications MedicationDrug Class(es)DatesSig (Normalized)Sig (Original)acetaminophen 500 mg oral tablet (1 source)Start: 88-57-7828irhp 2 tablets by mouth every eight hours acetaminophen (TYLENOL EXTRA STRENGTH) 500 mg tablet Take 2 tablets (1,000 mg total) by mouth every8 (eight) hours. 30 tablet 09/16/2024 Activedocusate sodium 100 mg oral capsule (1 source)Start: 43-98-3209ihjn 1 capsule by mouth in the morning, then take 1 capsule by mouth at bedtimedocusate sodium (COLACE) 100 mg capsule Take 1 capsule (100 mg total) by mouth in the morning and 1capsule (100 mg total) before bedtime. 10 capsule 09/16/2024 Activeibuprofen 800 mg oral tablet (1 source)Nonsteroidal Anti-inflammatory DrugStart: 86-14-6742onbl 1 tablet by mouth every eight hoursibuprofen (MOTRIN) 800 mg tablet Take 1 tablet (800 mg total) by mouth every 8 (eight) hours. 30 tablet 09/16/2024 Activemiscellaneous medical supply misc (5 sources)miscellaneous medical supply misc by miscellaneous route once. Active norethindrone 0.35 mg oral tablet (3 sources)Start: 09-16-2024 End: 11-67-8268uish 1 tablet by mouth once dailynorethindrone (Micronor) 0.35 MG tablet Indications: 6 weeks follow-up , S/P section Take 1 tablet (0.35 mg) by mouth Daily 28 tablet 11 10/24/2024 10/24/2025 Active omeprazole 20 mg delayed release oral capsule (20 sources)Proton Pump InhibitorStart: 07-14-2024 End: 16-77-9977tipa 1 capsule by mouth in the morningomeprazole (PriLOSEC) 20 mg capsule Indications: Gestational diabetes mellitus (GDM), antepartum, ge stational diabetes method of control unspecified Take 1 capsule (20 mg total) by mouth in the morning. 90 capsule 3 07/14/2024 ActiveStart: 06-15-2024 End: 85-96-2382qstx 1 capsule by mouth once before mealtimeomeprazole (PriLOSEC) [address] capsule Indications: Heartburn during in second trimester T lesly 1 capsule (20 mg) by mouth in the morning. Take before meals. Do not crush or chew.. 30 06/15/2024 06/15/2025 ActiveONETOUCH ULTRA2 METER misc (8 sources)Start: 96-10-1379LOGVPLKF ULTRA2 MET[place] [facility] [place] CHECK FASTING BLOOD SUGAR BEFORE BREAKFAST & 1 HR AFTER EACH MEAL FOR TOTAL OF 4 TIMES DAILY 07/31/2024 Active Completed/Discontinued Medications MedicationDrug Class(es)DatesSig (Normalized)Sig (Original)aspirin 81 mg delayed release oral tablet (19 sources)Platelet Aggregation Inhibitor, Nonsteroidal Anti-inflammatory Drug End: 48-61-0126mfiy 1 tablet by mouth once dailyaspirin 81 MG EC tablet Take 81 mg by mouth Daily 10/24/2024 DiscontinuedBlood Glucose Monitoring Suppl (D-Care Glucometer) w/Device kit (20 sources)Start: 07-17-2024 End: 53-65-5488Arkoo Glucose Monitoring Suppl (D-Care Glucometer) w/Device kit Indications: Gestational diabetes mellitus (GDM) in third trimester, gestational diabetes method of control unspecified , Gestational diabetes mellitus (GDM), antepartum, gestational diabetes method of control unspecified , Elevated glu cose tolerance test 1 kit Daily Use four times daily to check FSBS. In the morning prior to breakfast & 1 hour after each meal for a total of 4times daily. 1 kit 07/17/2024 10/24/2024 DiscontinuedStart: 07-17-2024 End: 04-99-3790Gqghr Glucose Monitoring Suppl (D-Care Glucometer) w/Device kit Indications: Gestational diabetes mellitus (GDM) in third trimester, gestational diabetes method of control unspecified , Gestational diabetes mellitus (GDM), antepartum, gestational diabetes method of control unspecified , Elevated glu cose tolerance test 1 kit Daily Use four times daily to check FSBS. In the morning prior to breakfast & 1 hour after each meal for a total of 4times daily. 1 kit 07/17/2024 07/17/2025 Activecephalexin 500 mg oral capsule (8 sources)Cephalosporin AntibacterialStart: 08-05-2024 End: 71-53-0789rumvpoyvou (Keflex) 500 MG capsule Take 500 mg by mouth in the morning and 500 mg at noon and 500 mg in the evening and 500 mg before bedtime. 08/05/2024 08/29/2024 Discontinuedcitalopram 20 mg oral tablet (20 sources)Serotonin Reuptake InhibitorStart: 10-05-2023 End: 63-88-0432hacg 1 tablet by mouth once dailyCitalopram (Celexa) 20 mg tablet Discontinued 20 MG PO Daily January 31, 2024 12:00am May 18, 2025 9:30am End: 75-50-1459uthx 2 tablets by mouth in the morningcitalopram (CeleXA) 10 mg tablet Take 2 tablets (20 mg total) by mouth in the morning. 07/14/2024 Di scontinued (Reorder)3 ml insulin glargine 100 unt/ml pen injector (20 sources)Insulin AnalogStart: 08-23-2024 End: 99-62-9514ajlfkb 10 [IU] by subcutaneous injection at bedtimeinsulin glargine (Lantus SoloStar) 100 UNIT/ML pen Indications: Insulin controlled gestational diabetes mellitus (GDM) during , antepartum Inject 10 Units under the skin at bedtime 3 mL 3 08/23/2024 10/24/2024 DiscontinuedStart: 12-04-7894AWFUGT U-100 INSULIN 100 unit/mL injection 0.1 mL (10 Units total) nightly. 08/22/2024 ActiveStart: 08-22-2024 End: 99-85-8565ajifax 10 [IU] by subcutaneous injection in the eveninginsulin glargine (Lantus) 100 UNIT/ML injection Indications: Hyperglycemia , GESTATIONAL DIABETES Inject 10 Units under the skin in the evening 3 mL 08/22/2024 08/23/2024 Discontinuedisopropyl alcohol 0.7 ml/ml medicated pad (20 sources)Start: 07-17-2024 End: 69-12-3538Crcswza Swabs (Alcohol Prep Pad) 70 % pads Indications: Gestational diabetes mellitus (GDM) in third trimester, gestational diabetes method of control unspecified , Gestational diabetes mellitus (GDM), antepartum, gestational diabetes method of control unspecified , Elevated glucose tolerance test Apply 1 Pad topically Daily Use four times daily to check FSBS. 150 each 3 07/17/2024 10/24/2024 Discontinuedlabetalol hydrochloride 300 mg oral tablet (20 sources)beta-Adrenergic BlockerStart: 08-05-2024 End: 54-40-0760sxzw 1 tablet by mouth in the morning, then take 1 tablet by mouth in the evening, then take 1 tablet by mouth at bedtimelabetalol (Normodyne) 300 MG tablet Indications: Hypertension, unspecified type (CMS/HCC) Take 1 tablet (300 mg) by mouth in the morning and 1 tablet (300 mg) in the evening and 1 tablet (300 mg) before bedtime. 90 tablet 08/23/2024 10/24/2024 DiscontinuedStart: 05-01-2024 End: 61-41-6579wtys 1 tablet by mouth in the morning, then take 1 tablet by mouth in the evening, then take 1 tablet by mouth at bedtimelabetalol (Normodyne) 200 MG tablet Indications: Elevated blood pressure affecting in first trimester, antepartum , High blood pressure affecting in first trimester, antepartum Take 1 tablet (200 mg) by mouth in the morning and 1 tablet (200 mg) in the evening and 1 tablet (200 mg) before bedtime. 270 tablet 06/15/2024 08/14/2024 DiscontinuedStart: 03-02-2024 End: 16-40-0802zmlq 1 tablet by mouth in the morninglabetalol (Normodyne) 200 MG tablet Indications: Elevated blood pressure affecting in first trimester, antepartum , High blood pressure affecting in first trimester, antepartum Take 1 tablet (200 mg) by mouth in the morning and 1 tablet (200 mg) before bedtime. 60 tablet 6 03/02/2024 ActiveStart: 01-31-2024 End: 86-04-9509shnf 1 tablet by mouth twice dailyLabetalol 100 mg tablet Discontinued 100 MG PO Twice daily January 31, 2024 12:00am May 18, 2025 9:11amlabetaloL (NORMODYNE) 100 mg tablet Take 3 tablets (300 mg total) by mouth in the morning and 3 tablets (300 mg total) at noon and 3 tablets (300 mg total) in the evening. ActivelabetaloL (NORMODYNE) 100 mg tablet Take 2 tablets (200 mg total) by mouth in the morning and 2 tablets (200 mg total) at noon and 2 tablets (200 mg total) in the evening. ActiveNIFEdipine 10 mg oral capsule (5 sources)Dihydropyridine Calcium Channel BlockerStart: 08-05-2024 End: 11-04-6517boix 1 capsule by mouth every six hoursNIFEdipine (Procardia) 10 MG capsule Take 10 mg by mouth every 6 (six) hours 08/05/2024 08/22/2024 D iscontinuedondansetron 4 mg oral tablet (11 sources)Serotonin-3 Receptor Antagonist End: 80-52-2073ytbw 1 tablet by mouth every eight hours as needed for nausea and vomitingondansetron (ZOFRAN) 4 mg tablet Take 4 mg by mouth every 8 (eight) hours as needed for nausea or vomiting. 09/08/2024 Discontinuedprenatal vits62/FA/om3/dha/epa ( GUMMY ORAL) (11 sources) End: 90-77-8216sjzdpbon vits62/FA/om3/dha/epa ( GUMMY ORAL) Take by mouth. 09/08/2024 Discontinuedprenatal vits62/FA/om3/dha/epa ( GUMMY ORAL) Take by mouth. Active Problems Active Problems Problem ClassificationProblemDateDocumented DateEpisodic/ChronicAnxiety disorders (3 sources)Anxiety disorder, unspecified; Translations: [Generalized anxiety disorder]Onset: 494704-98-0323OrwejnrMiuwocpf mellitus without complication (6 sources)Other abnormal glucose; Translations: [Abnormal glucose tolerance test]Onset: 62-03-5902VotmvxfyNsmlaneet hypertension (6 sources)Hypertensive disorder; Translations: [Essential (primary) hypertension]Onset: 366111-13-7490ZzytdzoNnofdeooqzwp complicating ; childbirth and the puerperium (20 sources)Unspecified pre-existing hypertension complicating , third trimester; Translations: [Pre-existing hypertension with pre-eclampsia, complicating childbirth]Onset: 11-42-1113RlenefsZriufiejwmqc complicating ; childbirth and the puerperium (5 sources)Unspecified pre-eclampsia, third trimester; Translations: [Gestational [-induced] hypertension without significant proteinuria, first trimester]Onset: 10-51-6507FbjrggrfGhkmj complications of ; puerperium affecting management of mother (1 source)Abnormality of heart; Translations: [Anomaly of heart of fetus affecting , antepartum, single or unspecified fetus]01-20-6636Fdaqjwyi Other complications of ; puerperium affecting management of mother (1 source)Encounter for delivery without indication; Translations: [Encounter for delivery without indication]Onset: 54-97-1310Mysmhhzg Other complications of (2 sources)Heartburn; Translations: [Other specified related conditions, second trimester]21-03-8529UodcmwetCygjy complications of (3 sources) ultrasound scan abnormal; Translations: [Abnormal ultrasonic finding on screening of mother]48-27-5217AorybzyoOwqsx complications of (1 source)Abnormal ultrasonic finding on screening of mother; Translations: [Abnormal ultrasonic finding on screening of mother] Onset: 90-63-3303DuxbfjwbZmxqz complications of (1 source)Maternal care for abnormalities of the heart rate or rhythm, unspecified trimester, not applicable or unspecified; Translations: [Maternal care for abnormalities of the heart rate or rhythm, unspecified trimester, not applicable or unspecified]Onset: 03-78-8527OlmxxbqxWowof ear and sense organ disorders (2 sources)Eczema of external auditory canal; Translations: [Acute eczematoid otitis externa, bilateral]12-26-1080NlosespjSrjjo nervous system disorders (2 sources)Chronic pain; Translations: [Other chronic pain]70-08-1799Picafhx Other nutritional; endocrine; and metabolic disorders (1 source)Body mass index (BMI) 40.0-44.9, adult; Translations: [Body mass index (BMI) 40.0-44.9, adult]Onset: 29-76-3162ShtbrakYfvkq and delivery including normal (20 sources)Encounter for care and examination of lactating mother; Translations: [Single live ]Onset: 63-28-6653TefitdzaMrmra screening for suspected conditions (not mental disorders or infectious disease) (19 sources)Encounter for screening for malignant neoplasm of cervix; Translations: [Encounter for screening for Streptococcus B]Onset: 66-12-2373UxbtflarXzjgkwrnv heart disease (6 sources)Pulmonary hypertension; Translations: [Pulmonary hypertension, unspecified]Onset: 416546-72-2323TgmssbsRcynmpvl codes; unclassified (2 sources)35 weeks gestation of ; Translations: [35 WEEKS GESTATION OF ]Onset: 18-33-4961YynexnkrShwrtaln codes; unclassified (2 sources)Gestation period, 20 weeks; Translations: [20 weeks gestation of ]17-99-4153DdrktkakTisfnnkc codes; unclassified (2 sources)Gestation period, 24 weeks; Translations: [24 weeks gestation of ]08-58-2588IdxscxhtRetyfzeg codes; unclassified (2 sources)Gestation period, 28 weeks; Translations: [28 weeks gestation of ]28-42-4785ChkxqbreCrtpspmv codes; unclassified (2 sources)Gestation period, 30 weeks; Translations: [30 weeks gestation of ]06-11-6556MymrosgxHmwxrund codes; unclassified (3 sources)Gestation period, 32 weeks; Translations: [32 weeks gestation of ]37-67-2098WfiikfjaRwjzacxm codes; unclassified (4 sources)Gestation period, 34 weeks; Translations: [34 weeks gestation of ]98-86-7285NvdcsqrpUpmzixtf codes; unclassified (3 sources)Gestation period, 35 weeks; Translations: [35 weeks gestation of ]46-07-2231BldcydejHyozkxoi codes; unclassified (1 source)Pain, unspecified; Translations: [Pain, unspecified]Onset: 09-11-2024 EpisodicResidual codes; unclassified (1 source)32 weeks gestation of ; Translations: [32 weeks gestation of ]Onset: 18-39-0061IqklgomlEhggqulz codes; unclassified (2 sources)Family history of lupus kqujxvhohycgn71-22-9071DpijjijvEgwvwhitgzqb (1 source)CONTACT W/AND (SUSP) EXPOS COVID-19; Translations: [CONTACT W/AND (SUSP) EXPOS COVID-19]Onset: 18-70-4585Zbomafkxbcsy (1 source)New PatientOnset: 70-02-2208Okfgaarrctah (1 source)elevated blood glucose levelsOnset: 38-95-8810Vqxdvyewvfci (1 source)Scheduled C-sectionOnset: 09-93-6824Pulceyibwlpo (1 source) Observation of PACsOnset: 09-05-2024 Past or Other Problems Problem ClassificationProblemDateDocumented DateEpisodic/ChronicCardiac dysrhythmias (6 sources)Tachycardia; Translations: [Tachycardia, unspecified]Onset: 285949-42-0246JwrmhulzYentsqln or abnormal glucose tolerance complicating ; childbirth; or the puerperium (20 sources)Gestational diabetes mellitus in childbirth, diet controlled; Translations: [Gestational diabetes mellitus in , diet controlled] Onset: 30-84-2406JfhebbftMbpvt distress and abnormal forces of labor (1 source)Labor and delivery complicated by stress, unspecified; Translations: [LABOR AND DEL COMP STRESS UNS]Onset: 91-95-0906Kaoyvgat Immunizations and screening for infectious disease (3 sources)Encounter for screening for human papillomavirus (HPV); Translations: [Patient encounter status]Onset: 956073-82-9100NzxtglkpAynvc complications of ; puerperium affecting management of mother (1 source)Deliveries by ; Translations: [Encounter for delivery without indication]Onset: 697322-01-2701GxkmhvcdYjimp complications of (1 source)Other mental disorders complicating , third trimester; Translations: [OTH MENTAL D/O COMP PREG THIRD TRI]Onset: 78-07-7610SezdrddqGhyoo complications of (13 sources) condition affecting obstetrical care of mother; Translations: [Maternal care for abnormalities of the heart rate or rhythm, unspecified trimester, not applicable or unspecified]Onset: 273500-27-5992Kohshqwi Other complications of (13 sources) ultrasound scan abnormal; Translations: [Abnormal ultrasonic finding on screening of mother]Onset: 665027-18-0986Evngznpq Other connective tissue disease (3 sources)Other specified soft tissue disorders; Translations: [OTHER SPEC SOFT TISSUE DISORDERS]Onset: 58-68-3901EcerdjczHcvby female genital disorders (2 sources)Vaginal discharge; Translations: [Other specified noninflammatory disorders of vagina]31-53-7477ZfzdvxxtKgzpj nutritional; endocrine; and metabolic disorders (14 sources)Body mass index 40+ - severely obese; Translations: [Body mass index (BMI) 40.0-44.9, adult]Onset: 06-21-2024 Resolved: 783566-12-7528TvrcnriDxnzsmbdcarlaa and other problems of amniotic cavity (20 sources)Polyhydramnios; Translations: [Polyhydramnios, unspecified trimester, not applicable or unspecified]Onset: 264820-30-2389Ijlgtjkg Residual codes; unclassified (1 source)37 weeks gestation of ; Translations: [37 WEEKS GESTATION OF ]Onset: 27-19-2155BygixlfuEdanxest codes; unclassified (1 source)36 weeks gestation of ; Translations: [36 WEEKS GESTATION OF ]Onset: 27-58-8577HhqchonrChqxotdc codes; unclassified (1 source)34 weeks gestation of ; Translations: [34 WEEKS GESTATION OF ]Onset: 98-03-3323XdyvyvxwKrqrfric codes; unclassified (1 source)28 weeks gestation of ; Translations: [28 WEEKS GESTATION OF ]Onset: 76-16-6076Whstnyav Results Test NameValueInterpretationReference RangeFacilityHCG ( test) Ql (U)on 98-70-8089Rhylkffzumnvjj and review of laboratory resultsNormalWashington [facility] Preg Test, UrNegativeNegativeNOBarton County Memorial HospitalNOBarton County Memorial HospitalCBC AND AUTO DIFFon 78-60-9087VGAFEMKY BASOPHIL0.1 X10E9/LNormal0.0-0.2ProMedFostoria City Hospital Comment on above:Performed By: #### CBC, CMP, 2532-0, 3084-1, 58367-6 #### [facility] ([id number]) [address], [address] [place], [place] [address]PQSBHEJX TCQHXPADFD27.8 X10E9/LHigh1.5-6.6ProCleveland ClinicComment on above:Performed By: #### CBC, CMP, 2532-0, 3084-1, 01607-5 #### [facility] ([id number]) [address], [address] [place], [place] [address]Dhimkaetw/100 WBC (Bld)0.7 %NormalFlower Hospital Comment on above:Performed By: #### CBC, CMP, 2532-0, 3084-1, 78746-3 #### [facility] ([id number]) [address], [address] [place], [place] [address]Wjhebijhbvw (Bld) [#/Vol]0.1 10*3/uLNormal0.0-0.4ProCleveland ClinicComment on above:Performed By: #### CBC, CMP, 2532-0, 3084-1, 35610-0 #### [facility] ([id number]) [address], [address] [place], [place] [address]Grbtfedzwfk/100 WBC (Bld)0.6 %[facility] Comment on above:Performed By: #### CBC, CMP, 2532-0, 3084-1, 70890-8 #### [facility] ([id number]) [address], [facility] [address] [place], [place] [address]Udkohcmgixe distribution width (RBC) [Ratio]14.0 %Normal 11.5-15.0ProMer[facility] Health [facility] Hospital HospitalComment on above:Performed By: #### CBC, CMP, 2532-0, 3084-1, 83942-1 #### [facility] ([id number]) [address], [address] [address]Vqhfngpivr (Bld) [Volume fraction]24.5 %Vub87-57QwxWjibss [place] HospitalComment on above:Performed By: #### CBC, CMP, 2532-0, 4-1, 03777-8 #### [facility] ([id number]) [address], [address] [address]Gcwrluzrcc (Bld) [Mass/Vol]8.4 g/dLLow11.7-15.5PMain Campus Medical Center HospitalComment on above:Performed By: #### CBC, CMP, 2532-0, 3084-1, 21767-1 #### [facility] ([id number]) [address] [address]Zsqrsggbpbb (Bld) [#/Vol]1.6 10*3/uLNormal1.0-3.5PMain Campus Medical Center HospitalComment on above:Performed By: #### CBC, CMP, 2532-0, 3084-1, 35691-9 #### [facility] ([id number]) [address] [address] [place], [place] [address]Cllmgzbnszm/100 WBC (Bld)10.5 %NormalFlower Hospital Comment on above:Performed By: #### CBC, CMP, 2532-0, 3084-1, 92718-6 #### [facility] ([id number]) [address], [address] [place], [place] [address]TNR (RBC) [Entitic mass]29.6 xzGolqhq81-21EapJjnnho [facility] HospitalComment on above:Performed By: #### CBC, CMP, 2532-0, 3084-1, 04367-6 #### [facility] ([id number]) [address], [address] [place], [place] [address]GATP (RBC) [Mass/Vol]34.3 g/rOLaypih65-98GqzLsnfft [facility] HospitalComment on above:Performed By: #### CBC, CMP, 2532-0, 3084-1, 01482-4 #### [facility] ([id number]) [address], [address] [place], [place] [address]GLE (RBC) [Entitic vol]86 wMHbrdgu78-823ZhwIavnzd [facility] Va Medical CenterComment on above:Performed By: #### CBC, CMP, 2532-0, 3084-1, 55023-1 #### [facility] ([id number]) [address], [facility] [address] [place], [place] [address]Fczbgvfql (Bld) [#/Vol]1.2 10*3/uLHigh0-0.9ProCleveland ClinicComment on above:Performed By: #### CBC, CMP, 2532-0, 3084-1, 47769-1 #### [facility] ([id number]) [address], [facility] [address] [place], [place] [address]Widmgfavi/100 WBC (Bld)7.3 %NormalProMercy Health [facility] Hospital Comment on above:Performed By: #### CBC, CMP, 2532-0, 3084-1, 13019-1 #### [facility] ([id number]) [address], [address] [place], [place] [address]Ydlnpmpcgwu/100 WBC (Bld)80.9 %NormalFlower Hospital Comment on above:Performed By: #### CBC, CMP, 2532-0, 3084-1, 08661-5 #### [facility] ([id number]) [address], [address] [place], [place] [address]Tzvroszb mean volume (Bld) [Entitic vol]9.8 fLNormal7-12 [facility] HospitalComment on above:Performed By: #### CBC, CMP, 2532-0, 3084-1, 85787-0 #### [facility] ([id number]) [address], [address] [place], [place] [address]Dibcmhnpl (Bld) [#/Vol]192 10*3/dZVpyfmv840-831ZkgCsvmgm [place] HospitalComment on above:Performed By: #### CBC, CMP, 2532-0, 3084-1, 34720-2 #### [facility] ([id number]) [address], [address] [place], [place] [address]EHW COUNT2.85 X10E12/LLow3.80-5.20[facility] Comment on above:Performed By: #### CBC, CMP, 2532-0, 3084-1, 55175-1 #### [facility] ([id number]) [address], [address] [place], [place] [address]WRY (Bld) [#/Vol]15.8 10*3/uLHigh4.0-11.0Flower HospitalComment on above:Performed By: #### CBC, CMP, 2532-0, 3084-1, 18311-0 #### [facility] ([id number]) [address], [address] [place], [place] [address]KZC AND AUTO DIFFon 64-03-6203HFVBKNGA BASOPHIL0.1 X10E9/LNormal 0.0-0.2PThe Christ HospitalComment on above:Performed By: #### CBC, CMP, 2532-0, 3084-1, 26103-1 #### [facility] ([id number]) [address], [address] [place], [place] [address]ZTCMHFQS ODOOSQAJPI30.1 X10E9/LHigh1.5-6.6ProMer[facility] HospitalComment on above:Performed By: #### CBC, CMP, 2532-0, 3084-1, 48176-7 #### [facility] ([id number]) [address], [facility] [address] [place], [place] [address]Vlcadsinn/100 WBC (Bld)0.3 %NormalFlower Hospital Comment on above:Performed By: #### CBC, CMP, 2532-0, 4-1, 07249-6 #### [facility] ([id number]) [address], [address] [place] [address]Sumbwbdgxsc (Bld) [#/Vol]0.0 10*3/uLNormal0.0-0.4ProCleveland ClinicComment on above:Performed By: #### CBC, CMP, 2532-0, 4-1, 01419-4 #### [facility] ([id number]) [address], [address] [place] [address]Sxsdykimuoh/100 WBC (Bld)0.1 %NormalFlower Hospital Comment on above:Performed By: #### CBC, CMP, 2532-0, 3084-1, 18284-0 #### [facility] ([id number]) [address], [address] [place], [place] [address]Eqdfmggyiqe distribution width (RBC) [Ratio]13.8 %Normal 11.5-15.0ProCleveland ClinicComment on above:Performed By: #### CBC, CMP, 2532-0, 3084-1, 81621-4 #### [facility] ([id number]) [address], [address] [place] [address]Wbolkfpyxi (Bld) [Volume fraction]25.9 %Qnw10-68IjtImrdda [place] HospitalComment on above:Performed By: #### CBC, CMP, 2532-0, 3084-1, 83382-9 #### [facility] ([id number]) [address], [address] [place], [place] [address]Jdzsqxzopq (Bld) [Mass/Vol]8.9 g/dLLow11.7-15.5ProMedFostoria City Hospital HospitalComment on above:Performed By: #### CBC, CMP, 2532-0, 4-1, 78479-1 #### [facility] ([id number]) [address], [address] [place], [place] [address]Ssnhvqtwbkt (Bld) [#/Vol]1.3 10*3/uLNormal1.0-3.5ProMedFostoria City Hospital HospitalComment on above:Performed By: #### CBC, CMP, 2-0, 4-1, 15692-3 #### [facility] ([id number]) [address], [address] [place], [place] [address]Pzwpougrqoj/100 WBC (Bld)7.1 %NormalProMercy Health [facility] Hospital Hospital Comment on above:Performed By: #### CBC, CMP, 2532-0, 4-1, 57388-3 #### [facility] ([id number]) [address], [address] [place], [place] [address]MFW (RBC) [Entitic mass]29.7 dnNthreb69-69WczJtrkzr [place] HospitalComment on above:Performed By: #### CBC, CMP, 2532-0, 3084-1, 06637-4 #### [facility] ([id number]) [address], [address] [place], [place] [address]XHCC (RBC) [Mass/Vol]34.3 g/wGOqrnxt25-71LdwHkmnvn [place] HospitalComment on above:Performed By: #### CBC, CMP, 2532-0, 3084-1, 48586-6 #### [facility] ([id number]) [address], [address] [place], [place] [address]LTR (RBC) [Entitic vol]86 yJHkoevv09-296ZitQizsce [place] HospitalComment on above:Performed By: #### CBC, CMP, 2532-0, 3084-1, 41155-2 #### [facility] ([id number]) [address], [address] [place], [place] [address]Fdlutlgpe (Bld) [#/Vol]1.5 10*3/uLHigh0-0.9ProCleveland ClinicComment on above:Performed By: #### CBC, CMP, 2532-0, 3084-1, 46208-1 #### [facility] ([id number]) [address], [address] [place], [place] [address]Ifcmmnlfq/100 WBC (Bld)8.4 %NormalFlower Hospital Comment on above:Performed By: #### CBC, CMP, 2532-0, 3084-1, 32237-6 #### [facility] ([id number]) [address], [address] [place], [place] [address]Hwngsfbehjv/100 WBC (Bld)84.1 %NormalFlower Hospital Comment on above:Performed By: #### CBC, CMP, 2532-0, 3084-1, 15029-2 #### [facility] ([id number]) [address], [address] [place], [place] [address]Djgvfpuq mean volume (Bld) [Entitic vol]9.4 fLNormal7-12 [facility] HospitalComment on above:Performed By: #### CBC, CMP, 2532-0, 3084-1, 05253-0 #### [facility] ([id number]) [address], [address] [place], [place] [address]Qjhpgxiqm (Bld) [#/Vol]195 10*3/qTVzrtsj756-131VxpMejhhv [place] HospitalComment on above:Performed By: #### CBC, CMP, 2532-0, 3084-1, 83173-6 #### [facility] ([id number]) [address], [address] [place], [place] [address]VBO COUNT3.00 X10E12/LLow3.80-5.20[facility] Comment on above:Performed By: #### CBC, CMP, 2532-0, 3084-1, 91646-2 #### [facility] ([id number]) [address], [address] [place] [address]VGL (Bld) [#/Vol]18.0 10*3/uLHigh4.0-11.0ProCleveland ClinicComment on above:Performed By: #### CBC, CMP, 2532-0, 3084-1, 23809-5 #### [facility] ([id number]) [address], [address] [place] [address]SWBZEXGGF/GC PCR, Uon 96-93-5332GEGMCNNLZ/GC PCR, UCHLAMYDIA PCR, U Negative (qualifier value) Chlamydia trachomatis not detected by nucleic acid amplification. This does not exclude the possibility of infection because results are dependent on adequate specimen collection. GONORRHOEAE PCR, U Negative (qualifier value) Neisseria gonorrhoeae not detected by nucleic acid amplification. This does not exclude the possibility of infection because results are dependent on adequate specimen collection.NormalProCleveland ClinicComment on above:Performed By: #### CGUPCR #### [facility] ([id number]) [address], [address] [place] [address]YTSSIKBV BLOOD COUNTon 26-96-9238Buivgiunqnm distribution width (RBC) [Ratio]13.6 %Hfxfub06.5-15.0Pro[facility] HospitalComment on above: Performed By: #### CBC, CMP, 2532-0, 3084-1, 31318-0 #### [facility] ([id number]) [address], [address] [place], [place] [address]Bnrjbebhmm (Bld) [Volume fraction]39.0 %Lxbisk52-01NasGhuceu [facility] HospitalComment on above:Performed By: #### CBC, CMP, 2532-0, 4-1, 58602-8 #### [facility] ([id number]) [address], [facility] [address] [place], [place] [address]Swfzfmwfyp (Bld) [Mass/Vol]13.2 g/dVVdctze63.7-15.5[facility] HospitalComment on above:Performed By: #### CBC, CMP, 2532-0, 4-1, 78138-7 #### [facility] ([id number]) [address], [address] [place], [place] [address]NES (RBC) [Entitic mass]28.9 ioHetiey73-13BxsEfpgvj [place] HospitalComment on above:Performed By: #### CBC, CMP, 2-0, 4-1, 56698-5 #### [facility] ([id number]) [address], [address] [place], [place] [address]EDDK (RBC) [Mass/Vol]33.9 g/sACbenrz10-36BqxFgowhi [facility] HospitalComment on above:Performed By: #### CBC, CMP, 2532-0, 4-1, 43095-1 #### [facility] ([id number]) [address], [address] [place], [place] [address]TWD (RBC) [Entitic vol]85 bTJxezwv64-850HpzKlswoi Nuñez HospitalComment on above:Performed By: #### CBC, CMP, 2532-0, 3084-1, 92864-5 #### [facility] ([id number]) [address], [address] [place], [place] [address]Njhszbnv mean volume (Bld) [Entitic vol]9.4 fLNormal7-12 [facility] HospitalComment on above:Performed By: #### CBC, CMP, 2532-0, 4-1, 73179-9 #### [facility] ([id number]) [address], [address] [place], [place] [address]Sjzffzvzm (Bld) [#/Vol]242 10*3/jKLrdwks584-758PnmAhotzw [facility] HospitalComment on above:Performed By: #### CBC, CMP, 2532-0, 4-1, 81705-6 #### [facility] ([id number]) [address], [address] [place], [place] [address]LYV COUNT4.57 X10E12/LNormal3.80-5.20Pro[facility] Hospital Comment on above:Performed By: #### CBC, CMP, 2532-0, 3083-1, 71499-4 #### [facility] ([id number]) [address], [address] [place], [place] [address]RAP (Bld) [#/Vol]16.2 10*3/uLHigh4.0-11.0[facility] HospitalComment on above:Performed By: #### CBC, CMP, 2532-0, 3084-1, 20767-7 #### [facility] ([id number]) [address], [address] [place], [place] [address]YKPOOCRDEVNJS METABOLIC PANELon 08-82-8561Awgevns [Mass/Vol]3.6 g/dLNormal3.2-5.3[facility] HospitalComment on above:Performed By: #### CBC, CMP, 2532-0, 3084-1, 75397-2 #### [facility] ([id number]) [address], [address] [place], [place] [address]DDL [Catalytic activity/Vol]213 U/LCmgo87-371OsyCvabuq [facility]ñez HospitalComment on above:Performed By: #### JENIFER, CMP, 2532-0, 3084-1, 53054-9 #### [facility] ([id number]) [address], [address] [place], [place] [address]PKD [Catalytic activity/Vol]18 U/LNormal0-31[facility] HospitalComment on above:Performed By: #### JENIFER, CMP, 2532-0, 3084-1, 39795-0 #### [facility] ([id number]) [address], [address] [place], [place] [address]Xzrqs gap [Moles/Vol]11 mmol/LNormal5-15[facility] HospitalComment on above:Performed By: #### JENIFER, CMP, 2532-0, 3084-1, 63597-2 #### [facility] ([id number]) [address], [address] [place], [place] [address]TEK [Catalytic activity/Vol]13 U/LNormal0-41[facility] HospitalComment on above:Performed By: #### JENIFER, CMP, 2532-0, 3084-1, 75012-1 #### [facility] ([id number]) [address], [address] [place], [place] [address]Rpicthhjr [Mass/Vol]0.5 mg/dLNormal0.3-1.2[facility] HospitalComment on above:Performed By: #### JENIFER, CMP, 2532-0, 3084-1, 92443-0 #### [facility] ([id number]) [address], [address] [place], [place] [address]Oljglxk [Mass/Vol]9.1 mg/dLNormal8.5-10.5[facility] HospitalComment on above:Performed By: #### PRINCESS BURGESS, 2532-0, 4-1, 54908-9 #### [facility] ([id number]) [address], [address] [place], [place] [address]Xcseoesw [Moles/Vol]101 mmol/DKgdalq64-294MgiNedvep [place] HospitalComment on above:Performed By: #### PRINCESS BURGESS, 2532-0, 4-1, 11288-6 #### [facility] ([id number]) [address], [address] [place], [place] [address]NF1 [Moles/Vol]24 mmol/CYnfaco67-62AwrEspqalThe Christ Hospital Comment on above:Performed By: #### PRINCESS BURGESS, 2532-0, 4-1, 68774-8 #### [facility] ([id number]) [address], [address] [place], [place] [address]Pllxmcknno [Mass/Vol]0.44 mg/dLNormal0.40-1.00ProCleveland ClinicComment on above:Result Comment: METHOD TRACEABLE TO IDMS STANDARD Performed By: #### PRINCESS BURGESS, 2532-0, 3083-1, 14137-9 #### [facility] ([id number]) [address], [address] [place], [place] [address]aITS (CKD-EPI) NON-RACE DEPENDENT>90Normal>59ProCleveland ClinicComment on above:Result Comment: Reported eGFR is based on the CKD-EPI 2021 equation that does not use a race coefficient.Performed By: #### PRINCESS BURGESS, 2532-0, 4-1, 02500-2 #### [facility] ([id number]) [address], [address] [place], [place] [address]Kgfwyph [Mass/Vol]79 mg/nFPtsrht76-47ErhNsjjhmFlower Hospital Comment on above:Performed By: #### PRINCESS BURGESS, 2532-0, 4-1, 64425-1 #### [facility] ([id number]) [address], [address] [place], [place] [address]Rfmjxtkmj [Moles/Vol]3.9 mmol/LNormal3.5-5.0ProProtestant Hospitalca [facility]erson HospitalComment on above:Performed By: #### CBC, CMP, 2532-0, 4-1, 57914-9 #### [facility] ([id number]) [address], [address] [place], [place] [address]Enqslxh [Mass/Vol]6.2 g/dLNormal6.0-8.0[facility] Comment on above:Performed By: #### CBC, CMP, 2-0, 4-1, 89270-3 #### [facility] ([id number]) [address], [address] [place], [place] [address]Fdqaan [Moles/Vol]136 mmol/HHnovpl499-044MllRfesvo [facility] HospitalComment on above:Performed By: #### CBC, CMP, 2-0, 4-1, 34139-9 #### [facility] ([id number]) [address], [address] [place], [place] [address]Irhn nitrogen [Mass/Vol]5 mg/dLNormal5-23ProProtestant Hospitalca [facility] HospitalComment on above:Performed By: #### CBC, CMP, 2-0, 4-1, 10162-3 #### [facility] ([id number]) [address], [address] [place], [place] [address]DICF ARTERIAL GASon 27-90-6233XPGAZ'S TESTNormalProProtestant Hospitalca Nickerson HospitalComment on above:Performed By: #### CRDA #### [facility] ([id number]) [address] [place], [place] [address]TAPV,DEFICIT2.0 MMOL/LNormal0.0-2.0Pro[facility] Comment on above:Performed By: #### CRDA #### [facility] ([id number]) [address] [place], [place] [address]IXU2 (Bld) [Moles/Vol]27.4 mmol/TPang19-69LgbDqlsba Nuñez HospitalComment on above:Performed By: #### CRDA #### [facility] ([id number]) [address] [place], [place] [address]Begbqr (Bld) [Partial pressure]9 mm[Hg]Yjj54-12UapTkkbxz Nuñez HospitalComment on above:Performed By: #### CRDA #### [facility] ([id number]) [address] [place], [place] [address]Wrbkrr saturation in Blood6.0 %Low7.1-39.5[facility] Medical CenterComment on above:Performed By: #### CRDA #### [facility] ([id number]) [address] [place], [place] [address]NBPZSL SOURCERoomAirNormalProMedica Nuñez HospitalComment on above:Performed By: #### CRDA #### [facility] ([id number]) [address] [place], [place] [address]BMO686.8 KBGFChqj50.8-57.6ProProtestant Hospitalca [facility] Va Medical CenterComment on above:Performed By: #### CRDA #### [facility] ([id number]) [address] [place], [place] [address]fY (Bld)7.254 [pH]Normal7.24-7.30Pro[facility] Hospital Comment on above:Performed By: #### CRDA #### [facility] ([id number]) [address] [place], [place] [address]HAYDCX SITEArtCordNormalProMedica Nuñez HospitalComment on above:Performed By: #### CRDA #### [facility] ([id number]) [address] [place], [place] [address]BMOYAV TYPEUMBILICALCORDNormalProMedica Nuñze HospitalComment on above:Performed By: #### CRDA #### [facility] ([id number]) [address] [place], [place] [address]WUEZ VENOUS GASon 16-93-1312QMXCA'S TESTNormalProMedica Nuñez HospitalComment on above:Performed By: #### CRDV #### [facility] ([id number]) [address] [place], [place] [address]Chxy excess Calc (Bld) [Moles/Vol]0.0 mmol/LNormal0.0-2.0 [facility] HospitalComment on above:Performed By: #### CRDV #### [facility] ([id number]) [address] [place], [place] [address]QDN3 (Bld) [Moles/Vol]27.0 mmol/LHigh20.0-24.0Pro[facility]ica [facility] HospitalComment on above:Performed By: #### CRDV #### [facility] ([id number]) [address] [place], [place] [address]Rnbfbc (Bld) [Partial pressure]14 mm[Hg]Moe89-88YkiBjrqoa Nuñez HospitalComment on above:Performed By: #### CRDV #### [facility] ([id number]) [address] [place], [place] [address]Argtfa saturation in Blood16.0 %Low32.5-66.3Pro[facility]ica [facility]ñez HospitalComment on above:Performed By: #### CRDV #### [facility] ([id number]) [address] [place], [place] [address]QGPTEV SOURCERoomAirNormalProMedica Nuñez HospitalComment on above:Performed By: #### CRDV #### [facility] ([id number]) [address] [place], [place] [address]XUY516.2 OWOCOgbx90.6-43.8Pro[facility]ica [facility]ñez HospitalComment on above:Performed By: #### CRDV #### [facility] ([id number]) [address], [place] [address]yT (Bld)7.330 [pH]Normal7.25-7.37Pro[facility] Hospital Comment on above:Performed By: #### CRDV #### [facility] ([id number]) [address] [place], [place] [address]XFAABX SITEVenCordNormalProMedica Nickerson HospitalComment on above:Performed By: #### CRDV #### [facility] ([id number]) [address] [place], [place] [address]IXUPWZ TYPEUMBILICALCORDNormalProMedica Nickerson HospitalComment on above:Performed By: #### CRDV #### [facility] ([id number]) [address] [place], [place] [address]UQMN SCREEN, URINEon 43-34-6236ITVCFICBBPV/METHAMPNegativeNormal NEGProProtestant Hospitalca Nickerson HospitalComment on above:Result Comment: AMPH/METH screening cut off = 1000 ng/mLPerformed By: #### NERY OMALLEY #### [facility] ([id number]) [address] [place], [place] [address]YDPNLMSFECCOLgtqmojwAcgxxaMKCUxcTwaxns [facility] HospitalComment on above:Result Comment: Barbiturates screening cut off value = 200 ng/mLPerformed By: #### JOE OMALLEYU #### [facility] ([id number]) [address] [place], [place] [address]VXOLIQIEUTJFDYHDczeptlhVzuejnHQUFljBuegzj Nuñez HospitalComment on above:Result Comment: Benzodiazepines screening cut off value = 200 ng/mL Performed By: #### JOE OMALLEYU #### [facility] ([id number]) [address], [address] [place], [place] [address]SZTOKPHYYLNBAtuallkzGiamihASVBufGfonyc [facility]erson HospitalComment on above:Result Comment: Cannabinoids/THC screening cut off value = 50 ng/mL Performed By: #### UPANTONIETTA, DSU #### [facility] ([id number]) [address] [place], [place] [address]COYRUVV METABOLITENegativeNormalNEGProMercy Health [facility] Hospital Hospital Comment on above:Result Comment: Cocaine screening cut off value = 300 ng/mL Performed By: #### LYSSA, DSU #### [facility] ([id number]) [address], [address] [place], [place] [address]NWPUJCTLkcvtkrlGmuioultHZFWsaBkqboq [place] HospitalComment on above:Result Comment: Interference from Buproprion or Labetalol may cause a positive result, confirmation available upon request. Ecstasy screening cut off value = 500 ng/mL This report is intended for use in clinical monitoring or management of patients.Performed By: #### LYSSA, DSU #### [facility] ([id number]) [address] [place], [place] [address]LZURZIEQCSsfbszpsNrbiuzKKFIawNebast [place] HospitalComment on above:Result Comment: Methadone screening cut off value = 300 ng/mL.Performed By: #### LYSSA, DSU #### [facility] ([id number]) [address], [address] [place], [place] [address]QWDQXYCNibxycgjDrgsmmNSURntVoijbz [facility] HospitalComment on above:Result Comment: Opiates screening cut off value = 300 ng/mL NOTE: This test is used for the detection of codeine, hydrocodone (>1000 ng/mL), morphine and hydromorphone (>900 ng/mL) in urine.Performed By: #### UPANTONIETTA, DSU #### [facility] ([id number]) [address] [place], [place] [address]DOGUFAYKUHmqoporhKrdlleFLOSlgSkhtsa [place] HospitalComment on above:Result Comment: Oxycodone screening cut off value = 300 ng/mL NOTE: This test is used for the detection of oxycodone and oxymorphone in urine.Performed By: #### UPJOE MANEU #### [facility] ([id number]) [address], [address] [place], [place] [address]KBLRVIAKGGJNZZqhlwrghPxzetuXJSYxuEcpcxy [place] HospitalComment on above:Result Comment: Phencyclidine screening cut off value = 25 ng/mL Performed By: #### JOE OMALLEYU #### [facility] ([id number]) [address], [address] [address]ZKP [Catalytic activity/Vol]on 68-95-0770YCE260 U/KIhvkke674-406 [facility] Medical CenterComment on above:Performed By: #### CBC, CMP, 2532-0, 3084-1, 44522-3 #### [facility] ([id number]) [address] [address]LSDUDEM CREAT RATIOon 50-08-4644VLJLVF URINE WLOCHWW68 mg/L Normal<120ProCleveland ClinicComment on above:Performed By: #### JOE OMALLEYU #### [facility] ([id number]) [address] [address]K/PRO/FIRE SUPERVISOR RATIO CALC0.16Normal<0.2[facility] Comment on above:Result Comment: Nephrotic Syndrome is associated with ratios >3.5Performed By: #### JOE OMALLEYU #### [facility] ([id number]) [address], [address] [address]YIPZW CREATININE,RDM36.65 mg/dLNormalFlower Hospital Comment on above:Performed By: #### JOE OMALLEYU #### [facility] ([id number]) [address] [place] [address], [address] [place], [place] [address]Y. pallidum IgG+IgM IA Ql (S)on 10-84-7662Wphcoznd Total<0.2 Normal0.0-0.8ProCleveland ClinicComment on above:Result Comment: NON REACTIVE No serologic evidence of infection to Treponema pallidum (syphilis). Repeat testing may be considered in patients with suspected acute or primary syphilis in 2 to 4 weeks.Performed By: #### CBC, CMP, 2532-0, 3084-1, 43112-0 #### [facility] ([id number]) [address] [place] [address], [address] [place], [place] [address]OKIM ACIDon 39-33-7653Clqqv [Mass/Vol]2.9 mg/dLNormal2.6-7.2 [facility] CenterComment on above:Performed By: #### CBC, CMP, 2532-0, 3084-1, 96067-4 #### [facility] ([id number]) [address] [place] [address], [address] [place], [place] [address]FUCZ EKGon 20-24-9584RqtFyljoaWakeMed Cary Hospital OB BPP W NON-STRESSon 47-42-9837[address] [address] Ultrasound Report Signed Patient: SAMANHTA BENJAMIN MR#: [id number] : 1995 Acct:[id number] Age/Sex: 29 / F ADM Date: 09/07/24 Loc: US Attending Dr: Zhen Dhillon D.O. Ordering Physician: Zhen Dhillon D.O. Date of Service: 09/07/24 Procedure(s): US OB BPP w non-stress Accession Number(s): [id number] cc: Zhen Dhillon D.O.; Jacques Mccarthy M.D. The [address] [address] Patient Name: SAMANTHA BENJAMIN MRN: [facility]:[id number] date: 1995 Sex: F Assigned Patient Location: US Current Patient Location: US Accession/Order Number: [id number] Exam Date: 09/07/2024 17:55 Report Date: 09/08/2024 [...] Signed By: 09/08/24 0755 DD/ 0753 TD/TT: Demand Inspector:TBHRadiology, Radiologist, - 09/08/2024 [place] [address] Ultrasound Report Signed Patient: SAMANTHA BENJAMIN MR#: [id number] : 1995 Acct:[id number] Age/Sex: 29 / F ADM Date: 09/07/24 Loc: US Attending Dr: Zhen Dhillon D.O. Ordering Physician: Zhen Dhillon D.O. Date of Service: 09/07/24 Procedure(s): US OB BPP w non-stress Accession Number(s): [id number] cc: Zhen Dhillon D.O.; Jacques Mccarthy M.D. The [place] [id number] Patient Name: SAMANTHA BENJAMIN MRN: [facility]:[id number] date: 1995 Sex: F Assigned Patient Location: US Current Patient Location: US Accession/Order Number: [id number] Exam Date: 09/07/2024 17:55 Report Date: 09/08/2024 [...] profile score: 8 Electronically authenticated by: IRINEO COMSB Date: 09/08/2024 07:53 Dictated By: Irineo Combs M.D. Signed By: 09/08/24 0755 DD/ 0753 TD/TT: Demand Inspector: JUNE HealthcareRadiology Study observation (narrative)[facility]OM[facility] HealthcareUS OB BPP W NON-STRESSOrdered By: Radiologist Radiology on [id number] [employer] Work Phone: US OB GROWTHon [phone], [place] [address] Ultrasound Report Signed Patient: SAMANTHA BENJAMIN MR#: [id number] : 1995 Acct:[id number] Age/Sex: 29 / F ADM Date: 09/07/24 Loc: US Attending Dr: Zhen Dhillon D.O. Ordering Physician: Zhen Dhillon D.O. Date of Service: 09/07/24 Procedure(s): US OB growth Accession Number(s): [id number] cc: Zhen Dhillon D.O.; Jacques Mccarthy M.D. The [address] [address] Patient Name: SAMANTHA BENJAMIN MRN: [facility]:[id number] date: 1995 Sex: F Assigned Patient Location: US Current Patient Location: US Accession/Order Number: [id number] Exam Date: 09/07/2024 17:55 Report Date: 09/08/2024 [...] M.D. Signed By: 09/08/24826 DD/ 3 TD/TT: Demand Inspector:TBHRadiology, Radiologist, - 09/08/2024 [place] [address] Ultrasound Report Signed Patient: SAMANTHA BENJAMIN MR#: [id number] : 1995 Acct:[id number] Age/Sex: 29 / F ADM Date: 09/07/24 Loc: US Attending Dr: Zhen Dhillon D.O. Ordering Physician: Zhen Dhillon D.O. Date of Service: 09/07/24 Procedure(s): US OB growth Accession Number(s): [id number] cc: Zhen Dhillon D.O.; Jacques Mccarthy M.D. [place] [id number] Patient Name: SAMANTHA BENJAMIN MRN: [facility]:[id number] date: 1995 Sex: F Assigned Patient Location: US Current Patient Location: Accession/Order Number: [id number] Exam Date: 09/07/2024 17:55 Report Date: 09/08/2024 [...] M.D. Signed By: 09/08/24826 DD/ 3 TD/TT: Demand Inspector: JUNE HealthcareRadiology Study observation (narrative)JUNE AlbertoUS OB GROWTHOrdered By: Radiologist Radiology on [id number] Work Phone: US OB UMBILICAL ARTERY DOPPLERon [phone] [address] Ultrasound Report Signed Patient: SAMANTHA BENJAMIN MR#: [id number] : 1995 Acct:[id number] Age/Sex: 29 / F ADM Date: 09/07/24 Loc: US Attending Dr: Zhen Dhillon D.O. Ordering Physician: Zhen Dhillon D.O. Date of Service: 09/07/24 Procedure(s): US OB umbilical artery Accession Number(s): [id number] cc: Zhen Dhillon D.O.; Jacques Mccarthy M.D. [place] [id number] Patient Name: SAMANTHA BENJAMIN MRN: [facility]:[id number] date: 1995 Sex: F Assigned Patient Location: US Current Patient Location: US Accession/Order Number: [id number] Exam Date: 09/07/2024 17:55 Report Date: 09/08/2024 [...] M.D. Signed By: 09/08/24828 DD/ 5 TD/TT: Demand Inspector:TBHRadiology, Radiologist, - 09/08/2024 [place] [address] Ultrasound Report Signed Patient: SAMANTHA BENJAMIN MR#: [id number] : 1995 Acct:[id number] Age/Sex: 29 / F ADM Date: 09/07/24 Loc: US Attending Dr: Zhen Dhillon D.O. Ordering Physician: Zhen Dhillon D.O. Date of Service: 09/07/24 Procedure(s): US OB umbilical artery Accession Number(s): [id number] cc: Zhen Dhillon D.O.; Jacques Mccarthy M.D. [place] [id number] Patient Name: SAMANTHA BENJAMIN MRN: [facility]:[id number] date: 1995 Sex: F Assigned Patient Location: [place] Current Patient Location: [place] Accession/Order Number: [id number] Exam Date: 09/07/2024 17:55 Report Date: 09/08/2024 [...] M.D. Signed By: 09/08/24828 DD/ 5 TD/TT: Demand Inspector: JUNE HealthcareRadiology Study observation (narrative)[facility] HealthcareUS OB UMBILICAL ARTERY DOPPLEROrdered By: Radiologist Radiology on 79-75-5296FSVM [employer] Work Phone: TBK UA (CLEAN/CATCH) CORRECTIONAL CASEWORK SPECIALIST/MICRO IF IND.on 08-30-2024 BILIRUBIN URINENegativeNEGATIVENOMS HealthcareBLOOD URINENegativeNEGATIVENOMS HealthcareClarity (U)CLEARCLEARNOMS HealthcareColor (U)YELLOWYELLOWNOMS HealthcareGLUCOSE URINE UANegativeNEGATIVE mg/dLNOMS HealthcareInterpretation and review of laboratory resultsAbnormalNOMS HealthcareKetones Ql (U)15 mg/dL AbnormalNEGATIVENOMS HealthcareLeukocyte esterase Test strip Ql (U)Negative NEGATIVENOMS HealthcareNITRITE URINENegativeNEGATIVENOMS HealthcarepH (U)6.0 [pH]5.0 - 9.0NOMS HealthcareProtein (U) [Mass/Vol]30 mg/dLAbnormalNEG/TRACENOMS HealthcareSPECIFIC GRAVITY URINE>=1.148Xcyftobb6.005 - 1.025NOMS HealthcareURINE MICROSCOPIC INDICATEDYESNOMS HealthcareUROBILINOGEN URINE0.2 EU/dL0.2 - 1.0 EU/dLNOMS HealthcareCLINISYNCNOMS HealthcareUS OB BPP W NON-STRESSon 35-96-1284WzbJena, [place] [address] Ultrasound Report Signed Patient: SAMANTHA BENJAMIN MR#: [id number] : 1995 Acct:[id number] Age/Sex: 29 / F ADM Date: 08/30/24 Loc: [place] [address]: Zhen Dhillon D.O. Ordering Physician: Zhen Dhillon D.O. Date of Service: 08/30/24 Procedure(s): US OB BPP w non-stress Accession Number(s): [id number] cc: Zhen Dhillon D.O.; Jacques Mccarthy M.D. [place] [address] Patient Name: SAMANTHA BENJAMIN MRN: [id number] date: 1995 Sex: F Assigned Patient Location: [facility] Current Patient Location: [facility] Accession/Order Number: [id number] Exam Date: 08/30/2024 13:43 Report Date: 08/30/2024 14:27 At the request of: ZHEN DHILLON Procedure: US OB BPP w non-stress Ultrasound biophysical profile CLINICAL: Evaluate well-being. Clinical gestational age of 34 weeks 6 days. TECHNIQUE: Dedicated ultrasound imaging of the fetus was performed to include the support analyst's evaluation of biophysical profile. FINDINGS: Comparison: Ultrasound [...] Signed By: 08/30/24 1430 DD/ 1427 TD/TT: Demand Inspector:TBHRadiology, Radiologist, MD - 08/30/2024 [place] [address] Ultrasound Report Signed Patient: SAMANTHA BENJAMIN MR#: [id number] : 1995 Acct:[id number] Age/Sex: 29 / F ADM Date: 08/30/24 Loc: [facility] 250-[address]: Zhen Dhillon D.O. Ordering Physician: Zhen Dhillon D.O. Date of Service: 08/30/24 Procedure(s): US OB BPP w non-stress Accession Number(s): [id number] cc: Zhen Dhillon D.O.; Jacques Mccarthy M.D. [place] [id number] Patient Name: SAMANTHA BENJAMIN MRN: [id number] date: 1995 Sex: F Assigned Patient Location: [facility] Current Patient Location: [facility] Accession/Order Number: [id number] Exam Date: 08/30/2024 13:43 Report Date: 08/30/2024 14:27 At the request of: ZHEN DHILLON Procedure: US OB BPP w non-stress Ultrasound biophysical profile CLINICAL: Evaluate well-being. Clinical gestational age of 34 weeks 6 days. TECHNIQUE: Dedicated ultrasound imaging of the fetus was performed to include the support analyst's evaluation of biophysical profile. FINDINGS: Comparison: Ultrasound [...] Signed By: 08/30/24 1430 DD/ 1427 TD/TT: Demand Inspector: JUNE HealthcareRadiology Study observation (narrative)NOMS HealthcareUS OB BPP W NON-STRESSOrdered By: Radiologist Radiology on 55-88-2052MS[facility] Work Phone: Urinalysis macro (dipstick) panel (U)on 08-29-2024 Bilirubin, UANegativeNegative - 4(70) +++ mg/dLNOMS HealthcareBlood, UANegative Negative - 50 Hardeep/mcLNOMS HealthcareClarity, UAClearNOMS HealthcareColor, UA YellowNOMS HealthcareGlucose, UAPositiveNegative - 2000(110) ++++ mg/dLNOMS HealthcareComment on above:100Interpretation and review of laboratory results AbnormalNOMS HealthcareKetones, UANegativeNegative - 160(16) ++++ mg/dLNOMS HealthcareLeukocytes, UANegativeNegative - 500+++ Renee/mcLNOMS HealthcareNitrite, UANegativeNegative - PositiveNOMS HealthcarepH, UA75 - 9NOMS HealthcareProtein, UAPositiveNegative - 2000(20) ++++ mg/dLNOMS HealthcareComment on above:30Spec Grav, UA1.021 - 1.03NOMS HealthcareUrobilinogen, UA1.00.2 - 12 mg/dLNOMS HealthcareNOMS HealthcareUrinalysis macro (dipstick) panel (U)on 08-22-2024 Bilirubin, UANegativeNegative - 4(70) +++ mg/dLNOMS HealthcareBlood, UANegative Negative - 50 Hardeep/mcLNOMS HealthcareClarity, UAClearNOMS HealthcareColor, UA YellowNOMS HealthcareGlucose, UANegativeNegative - 2000(110) ++++ mg/dLNOMS HealthcareInterpretation and review of laboratory resultsNormalNOID Healthcare Ketones, UANegativeNegative - 160(16) ++++ mg/dLNOMS HealthcareLeukocytes, UA NegativeNegative - 500+++ Renee/mcLNOMS HealthcareNitrite, UANegativeNegative - PositiveNOMS HealthcarepH, UA75 - 9NOMS HealthcareProtein, UANegativeNegative - 2000(20) ++++ mg/dLNOMS HealthcareSpec Grav, UA1.0151 - 1.03NOMS Healthcare Urobilinogen, UA0.20.2 - 12 mg/dLNOMS HealthcareNOMS HealthcareUrinalysis macro (dipstick) panel (U)on 50-29-0020Ceseluwhl, UANegativeNegative - 4(70) +++ mg/dL NOMS HealthcareBlood, UAPositiveNegative - 50 Hardeep/mcLNOID HealthcareComment on above:trace-intactClarity, UAClearNOMS HealthcareColor, UAYellowNOMS Healthcare Glucose, UANegativeNegative - 2000(110) ++++ mg/dLNOID HealthcareInterpretation and review of laboratory resultsAbnormalSALT LAKE [facility] HealthcareKetones, UAPositive Negative - 160(16) ++++ mg/dLNOID HealthcareComment on above:40Leukocytes, UA NegativeNegative - 500+++ Renee/mcLNOID HealthcareNitrite, UANegativeNegative - PositiveNOMS HealthcarepH, UA65 - 9NOID HealthcareProtein, UATraceNegative - 2000(20) ++++ mg/dLNOID HealthcareSpec Grav, UA1.021 - 1.03NOID Healthcare Urobilinogen, UA0.20.2 - 12 mg/dLNOBarton County Memorial HospitalNOMS HealthcareALL CBC WITH AUTO DIFFon 90-11-1464VXYGDGQNI ABSOLUTE AUTO0.1NOMS HealthcareBasophils/100 WBC (Bld)0.3 %0.2 - 2.0 %NOMS HealthcareEosinophils/100 WBC (Bld)0.6 %Low0.9 - 7.0 % NOMCrittenton Behavioral HealthErythrocyte distribution width (RBC) [Ratio]12.2 %11.0 - 15.0 % NOMS HealthcareHematocrit (Bld) [Volume fraction]36.7 %36.0 - 48.0 %NOMCrittenton Behavioral HealthHemoglobin (Bld) [Mass/Vol]12.5 g/dL12.0 - 16.0 g/dLNOBarton County Memorial Hospital IMMATURE GRANULOCYTES ABS AUTO0.33HighNOBarton County Memorial HospitalImmature granulocytes/100 WBC (Bld)2 %High0.0 - 0.5 %NOM HealthcareInterpretation and review of laboratory resultsAbSelect Specialty Hospital-SaginawLYMPHOCYTES ABSOLUTE AUTO1.6NOMS [facility] HospitalLymphocytes/100 WBC (Bld)9.9 %Low20.5 - 60.0 %[facility] Memorial HospitalMCH (RBC) [Entitic mass]29.7 pg26.7 - 34.0 pgNOHannibal Regional HospitalHC (RBC) [Mass/Vol]34.1 g/dL29.9 - 35.2 g/dLWashington County Memorial HospitalMCV (RBC) [Entitic vol]87.2 fL81.0 - 99.0 fL [facility] HospitalMONOCYTES ABSOLUTE MPGH6PzmgDFAV HealthcareMonocytes/100 WBC (Bld)6.3 %1.7 - 12.0 %NOMCrittenton Behavioral HealthNEUTROPHILS ABSOLUTE AUTO13.2HighNOBarton County Memorial HospitalNeutrophils/100 WBC (Bld)80.9 %High43.0 - 75.0 %[facility] Platelet mean volume (Bld) [Entitic vol]10.5 fL9.5 - 13.5 fLWashington County Memorial HospitalTB EO #0.1NOMS [facility] HospitalTB [id number] Regional Medical Center RBC4.21NOMoberly Regional Medical Center WBC 16.3HighWashington County Memorial HospitalCLINISYNCNWestern Missouri Medical CenterALL CBC WITH AUTO DIFFon 43-57-5419HURECNZWQ ABSOLUTE AUTO0.1NOMS [facility] HospitalBasophils/100 WBC (Bld)0.3 % 0.2 - 2.0 %NOMCrittenton Behavioral HealthEosinophils/100 WBC (Bld)0.2 %Low0.9 - 7.0 %[facility] Memorial HospitalErythrocyte distribution width (RBC) [Ratio]12.1 %11.0 - 15.0 %[facility] Memorial HospitalHematocrit (Bld) [Volume fraction]35.3 %Low36.0 - 48.0 %[facility] HospitalHemoglobin (Bld) [Mass/Vol]12.1 g/dL12.0 - 16.0 g/dLWashington County Memorial Hospital IMMATURE GRANULOCYTES ABS AUTO0.31HighWashington County Memorial HospitalImmature granulocytes/100 WBC (Bld)1.7 %High0.0 - 0.5 %[facility] HospitalInterpretation and review of laboratory resultsAbnormalNOBarton County Memorial HospitalLYMPHOCYTES ABSOLUTE AUTO1.4NOBarton County Memorial HospitalLymphocytes/100 WBC (Bld)7.9 %Low20.5 - 60.0 %[facility] Children's HospitalH (RBC) [Entitic mass]29.8 pg26.7 - 34.0 pgNOHannibal Regional HospitalHC (RBC) [Mass/Vol]34.3 g/dL29.9 - 35.2 g/dLNOBarton County Memorial HospitalMCV (RBC) [Entitic vol]86.9 fL81.0 - 99.0 fL NOMS HealthcareMONOCYTES ABSOLUTE AUTO1.3HighNOID HealthcareMonocytes/100 WBC (Bld)7.1 %1.7 - 12.0 %NOMS HealthcareNEUTROPHILS ABSOLUTE AUTO15.1HighNOID HealthcareNeutrophils/100 WBC (Bld)82.8 %High43.0 - 75.0 %[facility] Platelet mean volume (Bld) [Entitic vol]10.5 fL9.5 - 13.5 fLNOBarton County Memorial HospitalTBH EO #0NOID HealthcareTB NNO644IMFRBarton County Memorial HospitalTB RBC4.06LowNOBarton County Memorial HospitalTB WBC18.2HighNOBarton County Memorial HospitalCLINISYNMUSC Health Marion Medical CenterTB UA (CLEAN/CATCH) CORRECTIONAL CASEWORK SPECIALIST/MICRO IF IND.on 14-83-8324MYZFIQJZJ URINENegativeNEGATIVENOMS HealthcareBLOOD URINE NegativeNEGATIVENOID HealthcareClarity (U)CLEARCLEARNOID HealthcareColor (U) YELLOWYELLOWNOID HealthcareGLUCOSE URINE UA500 mg/dLAbnormalNEGATIVENOID HealthcareInterpretation and review of laboratory resultsAbnormalWashington County Memorial Hospital Ketones Ql (U)NegativeNEGATIVE mg/dLNOID HealthcareLeukocyte esterase Test strip Ql (U)NegativeNEGATIVENOBarton County Memorial HospitalNITRITE URINENegativeNEGATIVENOID HealthcarepH (U)6.0 [pH]5.0 - 9.0NOID HealthcarePROTEIN URINENegativeNEG/TRACE mg/dLNOID HealthcareSPECIFIC GRAVITY URINE1.0251.005 - 1.025NOID HealthcareURINE MICROSCOPIC INDICATEDNONOKLAHOMA STATE [facility] HealthcareUROBILINOGEN URINE0.2 EU/dL0.2 - 1.0 EU/dLNOID HealthcareCLINISYNMUSC Health Marion Medical CenterUrinalysis macro (dipstick) panel (U)on 22-39-3863Wealnjayx, UANegativeNegative - 4(70) +++ mg/dLNOBarton County Memorial Hospital Blood, UAPositiveNegative - 50 Hardeep/mcLNOMS HealthcareComment on above:small Clarity, UAClearNOMS HealthcareColor, UAYellowNOMS HealthcareGlucose, UAPositive Negative - 2000(110) ++++ mg/dLNOMS HealthcareComment on above:250Interpretation and review of laboratory resultsAbnormalNOMS HealthcareKetones, UANegative Negative - 160(16) ++++ mg/dLNOMS HealthcareLeukocytes, UANegativeNegative - 500+++ Renee/mcLNOMS HealthcareNitrite, UANegativeNegative - PositiveNOMS HealthcarepH, UA65 - 9NOMS HealthcareProtein, UATraceNegative - 2000(20) ++++ mg/dLNOMS HealthcareSpec Grav, UA1.021 - 1.03NOMS HealthcareUrobilinogen, UA0.2 0.2 - 12 mg/dLNOMS HealthcareNOID HealthcareUrinalysis macro (dipstick) panel (U)on 96-70-2200Mexmdsdnv, UANegativeNegative - 4(70) +++ mg/dLNOMS Healthcare Blood, UANegativeNegative - 50 Hardeep/mcLNOMS HealthcareClarity, UAClearNOMS HealthcareColor, UAYellowNOMS HealthcareGlucose, UAPositiveNegative - 2000(110) ++++ mg/dLNOMS HealthcareComment on above:500Interpretation and review of laboratory resultsAbnormalNOMS HealthcareKetones, UAPositiveNegative - 160(16) ++++ mg/dLNOMS HealthcareComment on above:TRACELeukocytes, UANegativeNegative - 500+++ Renee/mcLNOMS HealthcareNitrite, UANegativeNegative - PositiveNOMS HealthcarepH, UA5.55 - 9NOMS HealthcareProtein, UANegativeNegative - 2000(20) ++++ mg/dLNOMS HealthcareSpec Grav, UA1.021 - 1.03NOID HealthcareUrobilinogen, UA0.20.2 - 12 mg/dLNOMS HealthcareNOMS HealthcareGlucose random or fasting- POCT on 69-76-4903Hloxclij Glucose Fasting Or Random (Fbs)169[facility]-ErieALL CBC WITH AUTO DIFFon 46-14-4288KVYOHAYRE ABSOLUTE AUTO0.1NOMS HealthcareBasophils/100 WBC (Bld)0.3 %0.2 - 2.0 %[facility] Healthcare Eosinophils/100 WBC (Bld)0.3 %Low0.9 - 7.0 %[facility] Memorial HospitalErythrocyte distribution width (RBC) [Ratio]12.1 %11.0 - 15.0 %[facility] Memorial HospitalHematocrit (Bld) [Volume fraction]37.3 %36.0 - 48.0 %[facility] HospitalHemoglobin (Bld) [Mass/Vol]12.7 g/dL12.0 - 16.0 g/dLWashington County Memorial HospitalIMMATURE GRANULOCYTES ABS AUTO 0.32HighNOBarton County Memorial HospitalImmature granulocytes/100 WBC (Bld)1.8 %High0.0 - 0.5 % [facility] HospitalInterpretation and review of laboratory resultsAbnormalWashington County Memorial HospitalLYMPHOCYTES ABSOLUTE AUTO1.5NOMS [facility] HospitalLymphocytes/100 WBC (Bld) 8.3 %Low20.5 - 60.0 %[facility] Children's HospitalH (RBC) [Entitic mass]30.3 pg26.7 - 34.0 pgSSM Health Cardinal Glennon Children's HospitalHC (RBC) [Mass/Vol]34 g/dL29.9 - 35.2 g/dLSSM Health Cardinal Glennon Children's HospitalV (RBC) [Entitic vol]89 fL81.0 - 99.0 fLWashington County Memorial HospitalMONOCYTES ABSOLUTE AUTO0.9 HighSALT LAKE BEHAVIORAL HEALTH [facility]ITAL HealthcareMonocytes/100 WBC (Bld)5.2 %1.7 - 12.0 %[facility] NEUTROPHILS ABSOLUTE ZDLP00XvqgIPEAWashington County Memorial HospitalNeutrophils/100 WBC (Bld)84.1 % High43.0 - 75.0 %[facility] Memorial HospitalPlatelet mean volume (Bld) [Entitic vol]10.4 fL 9.5 - 13.5 fLWashington County Memorial HospitalTB EO #0.1NOMS [facility] HospitalTB CJY361QMRHSoutheast Missouri Hospital RBC4.19LowNOMoberly Regional Medical Center WBC17.8HighWashington County Memorial HospitalCLINISYNCNWestern Missouri Medical CenterUrinalysis macro (dipstick) panel (U)on 69-25-9751Qxyjkjome, UA NegativeNegative - 4(70) +++ mg/dLNOID HealthcareBlood, UANegativeNegative - 50 Hardeep/mcLNOID HealthcareClarity, UAClearNOID HealthcareColor, UAYellowNOID HealthcareGlucose, UAPositiveNegative - 2000(110) ++++ mg/dLSALT LAKE BEHAVIORAL HEALTH [facility] Healthcare Interpretation and review of laboratory resultsAbnormalNOMS HealthcareKetones, UANegativeNegative - 160(16) ++++ mg/dLNOMS HealthcareLeukocytes, UAPositive Negative - 500+++ Renee/mcLNOMS HealthcareNitrite, UANegativeNegative - Positive NOMS HealthcarepH, UA5.55 - 9NOMS HealthcareProtein, UANegativeNegative - 2000(20) ++++ mg/dLNOMS HealthcareSpec Grav, UA1.021 - 1.03NOMS Healthcare Urobilinogen, UA1.00.2 - 12 mg/dLNOMS HealthcareNOMS HealthcareUrinalysis macro (dipstick) panel (U)on 20-33-7733Jacaqihba, UANegativeNegative - 4(70) +++ mg/dL NOMS HealthcareBlood, UANegativeNegative - 50 Hardeep/mcLNOMS HealthcareClarity, UA ClearNOMS HealthcareColor, UAYellowNOMS HealthcareGlucose, UANegativeNegative - 1999(110) ++++ mg/dLNOID HealthcareInterpretation and review of laboratory resultsNormalNOID HealthcareKetones, UANegativeNegative - 160(16) ++++ mg/dLNOMS HealthcareLeukocytes, UANegativeNegative - 500+++ Renee/mcLNOID HealthcareNitrite, UANegativeNegative - PositiveNOMS HealthcarepH, UA75 - 9NOMS HealthcareProtein, UANegativeNegative - 2000(20) ++++ mg/dLNOMS HealthcareSpec Grav, UA1.0251 - 1.03NOID HealthcareUrobilinogen, UA0.20.2 - 12 mg/dLNOMS [facility] HospitalNOID HealthcareUrinalysis macro (dipstick) panel (U)on 37-53-9977Jbmmmqlbt, UA PositiveNegative - 4(70) +++ mg/dLNOMS HealthcareComment on above:smallBlood, UA NegativeNegative - 50 Hardeep/mcLNOMS HealthcareClarity, UAClearNOMS Healthcare Color, UAYellowNOMS HealthcareGlucose, UANegativeNegative - 1999(110) ++++ mg/dL NOMS HealthcareInterpretation and review of laboratory resultsAbnormalNOMS HealthcareKetones, UAPositiveNegative - 160(16) ++++ mg/dLNOID HealthcareComment on above:traceLeukocytes, UANegativeNegative - 500+++ Renee/mcLNOMS Healthcare Nitrite, UANegativeNegative - PositiveNOMS HealthcarepH, UA6.55 - 9NOMS HealthcareProtein, UATraceNegative - 2000(20) ++++ mg/dLNOMS HealthcareSpec Grav, UA1.0301 - 1.03NOMS HealthcareUrobilinogen, UA1.00.2 - 12 mg/dLNOMS HealthcareNOMS HealthcareActivated partial thromboplastin time (aPTT) in platelet poor plasma by coagulation aOrdered By: Kwesi Dudley on 36-07-3819eWUO Coag (PPP) [Time]26.1 s25.1-36.5FOhioHealth Berger HospitalComment on above:A hematocrit value greater than 55% may lead to inaccurate results in coagulation testing. Patientshaving hematocrit values >55% require a special collection tube for coagulation studies. Please contact the laboratory at [phone] for redraw instructions.Alanine aminotransferase [Enzymatic activity/volume] in Serum or PlasmaOrdered By: Kwesi Dudley on 80-02-8822TXS [Catalytic activity/Vol]22 U/LNormal7-52Flower HospitalComment on above:Performed By: #### HS TROP, PTT, CMP, DDIMER, BNP, CK, PT, CBC #### [facility] [address] [place] [address] USAAlbumin [Mass/volume] in Serum or Plasma by Bromocresol green (BCG) dye binding methoOrdered By: Kwesi Dudley on 91-67-2856Ouroqur BCG dye [Mass/Vol]4.7 g/dL3.5-5.7FOhioHealth Berger HospitalAlkaline phosphatase [Enzymatic activity/volume] in Serum or PlasmaOrdered By: Kwesi Dudley on 12-58-2771PBJ [Catalytic activity/Vol]67 U/KCedgzy44-474GrmpchffzFlower HospitalComment on above:Performed By: #### HS TROP, PTT, CMP, DDIMER, BNP, CK, PT, CBC #### [facility] [address] [place] [address] USAAspartate aminotransferase [Enzymatic activity/volume] in Serum or PlasmaOrdered By: Kwesi Dudley on 75-39-3740GPI [Catalytic activity/Vol]17 U/UDcackm69-26FcxciyjghFlower HospitalComment on above: Performed By: #### HS TROP, PTT, CMP, DDIMER, BNP, CK, PT, CBC #### [place] [address] USAAutomated basophil %Ordered By: Kwesi Dudley on 01-31-2024 Basophils/100 WBC (Bld)0.6 %Normal.Flower HospitalComment on above:Performed By: #### HS TROP, PTT, CMP, DDIMER, BNP, CK, PT, CBC #### [place] [address] USAAutomated basophil countOrdered By: Kwesi Dudley on 87-48-3737Vgenncysw (Bld) [#/Vol]0.1 10*3/uLNormal0.0-0.2FOhioHealth Berger HospitalComment on above:Result Comment: PERFORMED BY: [place] [address] PATHOLOGIST GEM TECHNICIAN CARLOS HITCHCOCK M.D.Performed By: #### HS TROP, PTT, CMP, DDIMER, BNP, CK, PT, CBC #### [place] [address] USAAutomated blood monocyte countOrdered By: Kwesi Dudley on 97-29-2966Owudioopr (Bld) [#/Vol]1.3 10*3/uLHigh0.0-0.8Flower HospitalComment on above:Performed By: #### HS TROP, PTT, CMP, DDIMER, BNP, CK, PT, CBC #### [place] [address] USAAutomated eosinophil %Ordered By: Kwesi Dudley on 35-87-9938Sscpmowsvvm/100 WBC (Bld)0.3 %Normal.[facility] Comment on above:Performed By: #### HS TROP, PTT, CMP, DDIMER, BNP, CK, PT, CBC #### [place] [address] USAAutomated eosinophil countOrdered By: Kwesi Dudley on 06-22-8876Pagkczfwxko (Bld) [#/Vol]0.1 10*3/uLNormal0.0-0.45Flower HospitalComment on above:Performed By: #### HS TROP, PTT, CMP, DDIMER, BNP, CK, PT, CBC #### [place] [address] USAAutomated monocyte %Ordered By: Kwesi Dudley on 01-31-2024 Monocytes/100 WBC (Bld)7.5 %Normal.Flower HospitalComment on above:Performed By: #### HS TROP, PTT, CMP, DDIMER, BNP, CK, PT, CBC #### [place] [address] USAAutomated neutrophil %Ordered By: Kwesi Dudley on 35-81-9975Ucgzfvbnkjp/100 WBC (Bld)79.8 %Normal.Flower HospitalComment on above:Performed By: #### HS TROP, PTT, CMP, DDIMER, BNP, CK, PT, CBC #### [place] [address] USABNP ser/plasOrdered By: Kwesi Dudley on 01-31-2024 Natriuretic peptide B (Bld) [Mass/Vol]30.0 pg/mLNormal5-100Flower HospitalComment on above:Result Comment: PERFORMED BY: [place] [address] PATHOLOGIST GEM TECHNICIAN CARLOS HITCHCOCK M.D.Performed By: #### HS TROP, PTT, CMP, DDIMER, BNP, CK, PT, CBC #### [place] [address] USABilirubin Test strip Ql (U)Ordered By: Kwesi Dudley on 30-38-2650Mzynlpcqj Ql (U)NegativeNegativeFlower Hospital Bilirubin.total [Mass/volume] in Serum or PlasmaOrdered By: Kwesi Dudley on 41-71-9736Cweszmbyg [Mass/Vol]0.5 mg/dLNormal0.3-1.0Flower HospitalComment on above:Performed By: #### HS TROP, PTT, CMP, DDIMER, BNP, CK, PT, CBC #### [facility] [address] [place] [id number] USACalcium [Mass/volume] in Serum or PlasmaOrdered By: Kwesi Dudley on 19-03-3961Srzckei [Mass/Vol]9.6 mg/dLNormal8.6-10.3FOhioHealth Berger HospitalComment on above:Performed By: #### HS TROP, PTT, CMP, DDIMER, BNP, CK, PT, CBC #### [place] [address] USACarbon dioxide, total [Moles/volume] in Serum or Plasma Ordered By: Kwesi Dudley on 77-34-5320LZ3 [Moles/Vol]30.1 mmol/POwziql68.0-31.0 Flower HospitalComment on above:Performed By: #### HS TROP, PTT, CMP, DDIMER, BNP, CK, PT, CBC #### [place] [address] USAChloride [Moles/volume] in Serum or PlasmaOrdered By: Kwesi Dudley on 43-11-8510Ckntamba [Moles/Vol]101 mmol/KRqsetb01-015WfmmhfsjxFlower HospitalComment on above:Performed By: #### HS TROP, PTT, CMP, DDIMER, BNP, CK, PT, CBC #### [facility] [address] [place] [id number] USAColor of Urine by AutoOrdered By: Kwesi Dudley on 67-13-3419Dkphc (U)ColorlessNormalYellowFlower HospitalComment on above:Order Comment: Name Collection Type:: Clean-Voided MidstreamPerformed By: #### UA, UHCG #### [place] [id number] USAComplete Blood Count Auto Diffon 22-68-6652Ybph Corpuscular HGB Conc34.6 g/yMMfmipz69.0-35.0The Adventhealth Physician GroupComment on above:Performed By: #### HS TROP, PTT, CMP, DDIMER, BNP, CK, PT, CBC #### [place] [address] USAMonocytes/100 WBC (Bld)14.85 %Normal0.00-20.00The [facility]health Physician GroupComment on above:Performed By: #### HS TROP, PTT, CMP, DDIMER, BNP, CK, PT, CBC #### [place] [address] USANRBC%0.0 /100{WBC}Normal0-0.5The [facility] Comment on above:Performed By: #### HS TROP, PTT, CMP, DDIMER, BNP, CK, PT, CBC #### [place] [address] USAComprehensive Metabolic Panelon 08-05-7879Ueulcrh [Mass/Vol]4.7 g/dLNormal3.5-5.7The [facility] Medical CenterComment on above: Performed By: #### HS TROP, PTT, CMP, DDIMER, BNP, CK, PT, CBC #### [place] [address] USACreatinine Clr Calc Qlbqcfbk860.17NormalThe [facility] Physician [facility] Medical CenterComment on above:Result Comment: PERFORMED BY: [place] [address] PATHOLOGIST GEM TECHNICIAN CARLOS HITCHCOCK M.D.Performed By: #### HS TROP, PTT, CMP, DDIMER, BNP, CK, PT, CBC #### [place] [address] USAGFR/1.73 sq M.predicted MDRD (S/P/Bld) [Vol rate/Area] mL/min/{1.73_m2}NormalThe [facility] Physician [facility] CenterComment on above:Performed By: #### HS TROP, PTT, CMP, DDIMER, BNP, CK, PT, CBC #### [place] [address] USACreatine kinase [Enzymatic activity/volume] in Serum or PlasmaOrdered By: Kwesi Benitezluis f on 69-57-8897AK [Catalytic activity/Vol]76 U/L Klspra48-023AxmtlmbrrFlower HospitalComment on above:Performed By: #### HS TROP, PTT, CMP, DDIMER, BNP, CK, PT, CBC #### [place] [address] USACreatinine [Mass/volume] in Serum or PlasmaOrdered By: Kwesithom Dudley on 85-87-6668Gqqbkbzwtv [Mass/Vol]0.80 mg/dLNormal0.60-1.20 Flower HospitalComment on above:Performed By: #### HS TROP, PTT, CMP, DDIMER, BNP, CK, PT, CBC #### [place] [address] USAD-Dimer High Sensitivityon 17-25-7290U-Dimer High Sensitivity< 821Vfanke0-188Mnl [facility] Physician GroupComment on above:Result Comment: The reference range for D-dimer is [...] coagulation studies. Please contact the laboratory at [phone] for redraw instructions. PERFORMED BY: [place] [address] PATHOLOGIST GEM TECHNICIAN CARLOS HITCHCOCK M.D.Performed By: #### HS TROP, PTT, CMP, DDIMER, BNP, CK, PT, CBC #### [facility] [address] [place] [id number] USAECG 12 lead ECGon [id number] 12 lead ECGKETTERING [facility] Main [place] [address] [place], [place] [id number] Electrocardiograph Report Signed Patient: Samantha Benjamin MR#: [id number] : 1995 Acct:[id number] Age/Sex: 28 / F ADM Date: 01/31/24 Loc: ER Room: Type: [facility] ER Attending Dr: Ordering [...] By: MUS Signed By Kwesi Dudley DO [facility] HospitalBayfront Health [facility] Petersburg Physician GroupErythrocyte distribution width [Ratio] by Automated countOrdered By: Kwesi Dudley on 89-93-3664Gccordiyuum distribution width (RBC) [Ratio]12.4 %Lcjzdy44.9-15.3FOhioHealth Berger HospitalComment on above:Performed By: #### HS TROP, PTT, CMP, DDIMER, BNP, CK, PT, CBC #### [facility] [address] [place] [address] USAErythrocytes [#/volume] in Blood by Automated countOrdered By: Kwesi Dudley on 65-35-2817QGW (Bld) [#/Vol]4.93 10*6/uLNormal3.60-5.00 Flower HospitalComment on above:Performed By: #### HS TROP, PTT, CMP, DDIMER, BNP, CK, PT, CBC #### [facility] [address] [place] [address] USAFibrin D-dimer [Presence] in Platelet poor plasma by Latex agglutinationOrdered By: Kwesi Dudley on 43-94-2672Gpmdyu D-dimer LA Ql (PPP)< 200 ng/mL0-243Flower HospitalComment on above:The reference range for D-dimer is <243 ng/mL D-dimer units.D-dimer results must be used in conjunction with a clinicalpretest probability (PTP) assessment model for deep veinthrombosis (DVT) and pulmonary embolism (PE). Results <230ng/mL d-dimer units can be used as a negative predictor inpatients with low or moderate probability for DVT/PE.Results above the exclusion threshold of 230 ng/ml D- dimerunits for DVT/PE may indicate the need for furtherdiagnostic testing.D- Dimer can be increased in hospitalized patients due toco-morbid conditions.A hematocrit value greater than 55% may lead to inaccurate results in coagulation testing. Patients having hematocrit values >55% require a special collection tube for coagulation studies. Please contact the laboratory at [phone] for redraw instructions.Glucose [Mass/volume] in Serum or PlasmaOrdered By: Kwesi Dudley on 01-37-5398Hvshbvj [Mass/Vol]91 mg/lDLicutk08-940ZtdkmwwbtFlower HospitalComment on above:ADA recommended reference rangeRandom Glucose Reference Range is dependent on time and content of last meal. Glucose of more than 200 mg/dL in a nonstressed, ambulatory subject supports the diagnosisof Diabetes Mellitus.Result Comment: Random Glucose Reference Range is dependent on time and content of last meal. Glucose of more than 200 mg/dL in a nonstressed, ambulatory subject supports the diagnosis of Diabetes Mellitus. ADA recommended reference rangePerformed By: #### HS TROP, PTT, CMP, DDIMER, BNP, CK, PT, CBC #### [facility] [address] [place] [address] USAGlucose [Mass/volume] in Urine by Test stripOrdered By: Kwesi Dudley on 88-70-4021Dvpeynl Test strip (U) [Mass/Vol]Normal mg/dLNoal Flower HospitalHCG ( test) IA.rapid Ql (U)Ordered By: Kwesi Dudley on 28-34-7933TMZ ( test) Ql (U)PositiveHighFlower HospitalHCG,Urineon 01-29-6504Kgcx HCG ( test) Ql (U) PositiveHighSarasota Memorial Hospital - Venice Physician GroupComment on above:Order Comment: Name Collection Type:: Clean-Voided MidstreamResult Comment: PERFORMED BY: [place] [address] PATHOLOGIST GEM TECHNICIAN CARLOS HITCHCOCK M.D.Performed By: #### HS TROP, PTT, CMP, DDIMER, BNP, CK, PT, CBC #### [place] [id number] USAHematocrit [Volume Fraction] of Blood by Automated count Ordered By: Kwesi Dudley on 35-76-4729Vabbumfbzn (Bld) [Volume fraction]45.1 % Mqztbl32.0-46.4FOhioHealth Berger HospitalComment on above:Performed By: #### HS TROP, PTT, CMP, DDIMER, BNP, CK, PT, CBC #### [place] [address] USAHemoglobin Test strip Ql (U)Ordered By: Kwesi Dudley on 00-03-1838Jmyzykjqpt Ql (U)NegativeNegativeFlower Hospital Hemoglobin [Mass/volume] in BloodOrdered By: Kwesi Dudley on 01-31-2024 Hemoglobin (Bld) [Mass/Vol]15.6 g/iLPiyu83.8-15.4FOhioHealth Berger HospitalComment on above:Performed By: #### HS TROP, PTT, CMP, DDIMER, BNP, CK, PT, CBC #### [place] [address] USAINR in Platelet poor plasma by Coagulation assayOrdered By: Kwesi Dudley on 87-83-0142BPK Coag (PPP) [Relative time]1.2 {INR}Normal Flower HospitalComment on above:INR Therapeutic Range A) Pre- and Peroperative OAT started two weeks before surgery. NOT HIP SURGERY: 1.5 - 2.5 HIP SURGERY: 2 - 3B) Primary and secondary prevention of venous THROMBOSIS: 2 - 3C) Active venous thrombosis, pulmonary embolismand prevention of recurrent venous thrombosis: 2 - 3D) Prevention of arterial thromboembolismincluding patients with mechanical heart valves: 3 - 4.5Result Comment: INR Therapeutic Range A) Pre- and [...] patients with mechanical heart valves: 3 - 4.5Performed By: #### HS TROP, PTT, CMP, DDIMER, BNP, CK, PT, CBC #### [facility] [address] [place] [address] USAKetones [Presence] in Urine by Test stripOrdered By: Kwesi Dudley on 52-31-9144Tkfhtta Ql (U)NegativeNormalThe Surgical Hospital at SouthwoodsComment on above:Order Comment: Name Collection Type:: Clean- Voided MidstreamPerformed By: #### UA, UHCG #### [address] [address] USALeukocyte esterase [Presence] in Urine by Test strip Ordered By: Kwesi Dudley on 51-34-6160Bemnycyir esterase Test strip Ql (U) NegativermHolmes County Joel Pomerene Memorial HospitalComment on above:Order Comment: Name Collection Type:: Clean-Voided MidstreamPerformed By: #### UA, UHCG #### [place] [id number] USALeukocytes [#/volume] corrected for nucleated erythrocytes in Blood by Automated counOrdered By: Kwesi Dudley on 87-21-4560ZJX corrected for nucl RBC Auto (Bld) [#/Vol]17.5 10*3/uLHigh3.8-11.6FOhioHealth Berger HospitalLeukocytes [#/volume] in Blood by Automated countOrdered By: Kwesi Dudley on 51-82-7592PRL (Bld) [#/Vol]17.5 10*3/uLHigh3.8-11.6FOhioHealth Berger HospitalComment on above:Performed By: #### HS TROP, PTT, CMP, DDIMER, BNP, CK, PT, CBC #### [facility] [address] [place] [address] USALymphocytes [#/volume] in Blood by Automated countOrdered By: Kwesi Dudley on 75-28-3078Blosqadjdlm (Bld) [#/Vol]2.1 10*3/uLNormal1.00-4.8 Flower HospitalComment on above:Performed By: #### HS TROP, PTT, CMP, DDIMER, BNP, CK, PT, CBC #### [facility] [address] [place] [address] USALymphocytes/100 leukocytes in Blood by Automated count Ordered By: Kwesi Dudley on 82-93-5005Zwyiydqtkmf/100 WBC (Bld)11.8 %Normal. Flower HospitalComment on above:Performed By: #### HS TROP, PTT, CMP, DDIMER, BNP, CK, PT, CBC #### [facility] [address] [place] [address] [Entitic mass] by Automated countOrdered By: Kwesi Dudley on 38-10-1144KRK (RBC) [Entitic mass]31.7 rnHymkrj96.7-34.3FOhioHealth Berger HospitalComment on above:Performed By: #### HS TROP, PTT, CMP, DDIMER, BNP, CK, PT, CBC #### [facility] [address] [place] [address] Auto (RBC) [Mass/Vol]Ordered By: Kwesi Dudley on 83-65-6553SCGC (RBC) [Mass/Vol]34.6 g/dL32.0-35.0Flower HospitalMCV [Entitic volume] by Automated countOrdered By: Kwesi Dudley on 80-84-5736KHE (RBC) [Entitic vol]91.4 bAOmfgkn50-420SymknrpdrFlower HospitalComment on above:Performed By: #### HS TROP, PTT, CMP, DDIMER, BNP, CK, PT, CBC #### [facility] [address] [place] [address] USAMonocyte distribution width [Entitic volume] in Blood by AutomatedOrdered By: Kwesi Dudley on 72-35-1955Vkhegyth distribution width Auto (Bld) [Entitic vol]14.85 %0.00-20.00Flower HospitalNeutrophils [#/volume] in Blood by Automated countOrdered By: Kwesi Dudley on 01-31-2024 Neutrophils (Bld) [#/Vol]14.0 10*3/uLHigh1.8-7.7FOhioHealth Berger HospitalComment on above:Performed By: #### HS TROP, PTT, CMP, DDIMER, BNP, CK, PT, CBC #### [facility] [address] [place] [id number] USANitrite Test strip Ql (U)Ordered By: Kwesi Dudley on 59-81-1503Lmjymnv Ql (U)NegativeNegativeFlower HospitalNo Panel InformationOrdered By: Kwesi Dudley on 57-29-5897Glwskeqvr GFR (CKD-EPI)> 60.0 mL/MinFlower HospitalPharmacy Creatinine Clearance (Chem 119.17Flower HospitalNucleated erythrocytes [Presence] in Blood by Automated countOrdered By: Kwesi Dudley on 96-01-6371Izrqqglqz RBC Auto Ql (Bld)0.0 /100{WBC}0-0.5FOhioHealth Berger HospitalPartial Thromboplastin Timeon 55-61-8083yOND Coag (Bld) [Time]26.1 vJllhit52.1-36.5The Adventhealth Physician GroupComment on above:Result Comment: A hematocrit value greater than 55% may lead to inaccurate results in coagulation testing. Patients having hematocrit values >55% require a special collection tube for coagulation studies. Please contact the laboratory at [phone] for redraw instructions.Performed By: #### HS TROP, PTT, CMP, DDIMER, BNP, CK, PT, CBC #### [place] [id number] USAPlatelet mean volume [Entitic volume] in Blood by Automated countOrdered By: Kwesi Dudley on 86-86-1738Cfubqmbo mean volume (Bld) [Entitic vol]8.7 fLNormal6.3-10.7FOhioHealth Berger HospitalComment on above:Performed By: #### HS TROP, PTT, CMP, DDIMER, BNP, CK, PT, CBC #### [place] [address] USAPlatelets [#/volume] in Blood by Automated countOrdered By: Kwesi Dudley on 22-04-2728Cgzsnomrq (Bld) [#/Vol]297 10*3/uBLxrhqv729-483 Flower HospitalComment on above:Performed By: #### HS TROP, PTT, CMP, DDIMER, BNP, CK, PT, CBC #### [place] [address] USAPotassium [Moles/volume] in Serum or PlasmaOrdered By: Kwesi Dudley on 02-33-6954Fqkhxzewb [Moles/Vol]3.4 mmol/LLow3.5-5.1FOhioHealth Berger HospitalComment on above:Performed By: #### HS TROP, PTT, CMP, DDIMER, BNP, CK, PT, CBC #### [place] [address] USAProtein Test strip (U) [Mass/Vol]Ordered By: Kwesi Dudley on 57-78-4603Szovxup (U) [Mass/Vol]NegativeNegativeFlower HospitalProtein [Mass/volume] in Serum or PlasmaOrdered By: Kwesi Dudley on 77-01-8414Wjsmmcs [Mass/Vol]7.7 g/dLNormal6.4-8.9Flower HospitalComment on above:Performed By: #### HS TROP, PTT, CMP, DDIMER, BNP, CK, PT, CBC #### [place] [address] USAProthrombin time (PT)Ordered By: Kwesi Dudley on 96-18-3002ZY Coag (PPP) [Time]14.0 sHigh9.0-12.9Flower HospitalComment on above:A hematocrit value greater than 55% may lead to inaccurate results in coagulation testing. Patientshaving hematocrit values >55% require a special collection tube for coagulation studies. Please contact the laboratory at [phone] for redraw instructions.Result Comment: A hematocrit value greater than 55% may lead to inaccurate results in coagulation testing. Patients having hematocrit values >55% require a special collection tube for coagulation studies. Please contact the laboratory at [phone] for redraw instructions.Performed By: #### HS TROP, PTT, CMP, DDIMER, BNP, CK, PT, CBC #### [facility] [address] [place] [id number] USASerum globulin measurement by calculation (mass/volume) Ordered By: Kwesi Dudley on 93-91-2565Wgiyhkbb (S) [Mass/Vol]3.0 g/dLNormal Flower HospitalComment on above:Performed By: #### HS TROP, PTT, CMP, DDIMER, BNP, CK, PT, CBC #### [facility] [address] [place] [address] USASerum or plasma albumin/globulin mass ratioOrdered By: Kwesi Dudley on 27-41-7905Dwybnck/Globulin [Mass ratio]1.6 {ratio}Normal Flower HospitalComment on above:Performed By: #### HS TROP, PTT, CMP, DDIMER, BNP, CK, PT, CBC #### [facility] [address] [place] [address] USASerum or plasma anion gap determinationOrdered By: Kwesi Dudley on 48-46-2767Cjegl gap [Moles/Vol]8.3 mmol/LNormal6.0-15.0Flower HospitalComment on above:Performed By: #### HS TROP, PTT, CMP, DDIMER, BNP, CK, PT, CBC #### [place] [id number] USASodium [Moles/volume] in Serum or PlasmaOrdered By: Kwesi Dudley on 26-09-2020Rbmwff [Moles/Vol]136 mmol/VLpqmov572-546UropuuxlhFlower HospitalComment on above:Performed By: #### HS TROP, PTT, CMP, DDIMER, BNP, CK, PT, CBC #### [place] [address] USASpecific gravity Test strip (U) [Rel density]Ordered By: Kwesi Dudley on 81-45-8658Kxgbrdpj gravity (U) [Rel density]1.0051.001-1.030 Flower HospitalTroponin I High Sensitivityon 01-31-2024 Troponin I High Sensitivity3.5 pg/mLNormal0.0-15.0The [facility] Comment on above:Result Comment: PERFORMED BY: [place] [address] PATHOLOGIST GEM TECHNICIAN CARLOS HITCHCOCK M.D.Performed By: #### HS TROP, PTT, CMP, DDIMER, BNP, CK, PT, CBC #### [place] [address] USATroponin I.cardiac [Mass/volume] in Serum or Plasma by Detection limit <= 0.01 ng/Ordered By: Kwesi Dudley on 81-65-3182Hirtrgxu I.cardiac DL <= 0.01 ng/mL [Mass/Vol]3.5 pg/mL0.0-15.0Flower HospitalUrea nitrogen [Mass/volume] in Serum or PlasmaOrdered By: Kwesi Dudley on 28-59-6361Xndj nitrogen [Mass/Vol]10 mg/dLNormal7-25Flower HospitalComment on above:Performed By: #### HS TROP, PTT, CMP, DDIMER, BNP, CK, PT, CBC #### [place] [address] USAUrinalysison 15-41-1631Ittkagnoo,UrineNegativeNormal NegativeThe Adventhealth Physician GroupComment on above:Order Comment: Name Collection Type:: Clean-Voided MidstreamPerformed By: #### UA, UHCG #### [place] [address] USAGlucose Ql (U)NormalNormalNormOrlando Health Emergency Room - Lake Mary Physician GroupComment on above:Order Comment: Name Collection Type:: Clean-Voided MidstreamPerformed By: #### UA, UHCG #### [facility] [address] [place] [address] USANitrite,UrineNegativeNormalNegativeSarasota Memorial Hospital - Venice Physician GroupComment on above:Order Comment: Name Collection Type:: Clean-Voided MidstreamPerformed By: #### UA, UHCG #### [place] [address] USAOccult Blood,UrineNegativeNormalNegativeSarasota Memorial Hospital - Venice Physician GroupComment on above:Order Comment: Name Collection Type:: Clean- Voided MidstreamPerformed By: #### UA, UHCG #### [place] [address] USAProtein,UrineNegativeNormalNegativeSarasota Memorial Hospital - Venice Physician GroupComment on above:Order Comment: Name Collection Type:: Clean-Voided MidstreamPerformed By: #### UA, UHCG #### [facility] [address] [place] [address] USASpecificy Griffin,Urine1.971Nhgogd2.001-1.030The [facility] Physician GroupComment on above:Order Comment: Name Collection Type:: Clean- Voided MidstreamPerformed By: #### UA, UHCG #### [facility] [address] [place] [address] USAUrobilinogen,UrineNormalNormalNormOrlando Health Emergency Room - Lake Mary Physician GroupComment on above:Order Comment: Name Collection Type:: Clean- Voided MidstreamPerformed By: #### UA, UHCG #### [facility] [address] [place], [place] [id number] USAUrine appearanceOrdered By: Kwesi Dudley on 01-31-2024 Appearance (U)ClearNormalClearFlower HospitalComment on above: Order Comment: Name Collection Type:: Clean-Voided MidstreamPerformed By: #### UA, UHCG #### [address] [place] [address] USAUrobilinogen Test strip (U) [Mass/Vol]Ordered By: Kwesi Luis Enrique on 19-52-9135Zbbmdhlmrczb (U) [Mass/Vol]Normal mg/dLNormalFlower HospitalpH of Urine by Test stripOrdered By: Kwesi Luis Enrique on 70-22-4628rR (U)6.5 [pH]Normal5.0-9.0Flower HospitalComment on above:Order Comment: Name Collection Type:: Clean-Voided MidstreamPerformed By: #### UA, UHCG #### [facility] [address] [place] [id number] USAPAP ACOG PANEL 2: 21 to 29on 10-14-2021..NormalMercy Health West HospitalComment on above:Performed By: #### PTT #### [facility] [address] [place] [address] Kaela SahuenAge Gdln ACOG Npvwpjk55-62GjkxmlKwhJoint Township District Memorial HospitalComment on above:Performed By: #### PTT #### [facility] [address] [place] [address] Kaela KarenDIAGNOSIS:CommentKindred Hospital Lima on above:Result Comment: NEGATIVE FOR INTRAEPITHELIAL LESION OR MALIGNANCY. CELLULAR CHANGES ASSOCIATED WITH INFLAMMATION ARE PRESENT.Performed By: #### PTT #### [facility] [address] [place] [address] Kaela KarenMethodology:CommentNoElyria Memorial Hospital on above: Result Comment: This liquid based ThinPrep(R) pap test was screened with the use of an image guided system.Performed By: #### PTT #### [facility] [address] [place] [address] Kaela KarenNote:CommentKindred Hospital Lima on above:Result Comment: The Pap smear is a screening test designed to aid in the detection of premalignant and malignant conditions of the uterine cervix. It is not a diagnostic procedure and should not be used as the sole means of detecting cervical cancer. Both false-positive and false-negative reports do occur. .Performed By: #### PTT #### [facility] [address] [place] [address] Kaela KarenPerformed by:CommentKindred Hospital Lima on above: Result Comment: Kenyetta Collins, Service Desk Team Lead (ASCP)Performed By: #### PTT #### [facility] [address] [place] [address] Kaela KarenReflex Criteria:[facility] on above: Result Comment: The HPV DNA reflex criteria were not met with this specimen result therefore, no HPV testing was performed. .Performed By: #### PTT #### [facility] [address] [place] [address] Kaela KarenSpecimen adequacy:[facility] on above:Result Comment: Satisfactory for evaluation. Endocervical and/or squamous metaplastic cells (endocervical component) are present.Performed By: #### PTT #### [facility] [address] [place] [address] Kaela KarenCBC AUTO DIFFon 46-82-3579ZXIP #0.1 103/ulNormal0.0-0.1Mer[facility] Health West HospitalComment on above:Performed By: #### CBC #### [facility] [address] [place] [address] Kaela KarenBasophils/100 WBC (Bld)0.3 %Normal0.2-2.0[facility] Comment on above:Performed By: #### CBC #### [facility] [address] [place] [address] Kaela KarenEO #0.1 103/ulNormal0.0-0.7The [facility] on above: Performed By: #### CBC #### [facility] [address] [place] [address] Kaela KarenEosinophils/100 WBC (Bld)0.5 %Critically low0.9-7.0The [facility] on above:Performed By: #### CBC #### [facility] [address] [place] [address] Kaela KarenErythrocyte distribution width (RBC) [Ratio]12.3 %Ozzukh17.0-15.0The [facility]beigh HospitalComment on above:Performed By: #### CBC #### [facility] [address] [place] [address] Kaela KarenHematocrit (Bld) [Volume fraction]33.8 %Critically low36.0-48.0The [facility]beigh HospitalComment on above:Performed By: #### CBC #### [facility] [address] [place] [address] Kaela KarenHemoglobin (Bld) [Mass/Vol]11.6 g/dLCritically low12.0-16.0The [facility]igh HospitalComment on above:Performed By: #### CBC #### [facility] [address] [place] [address] Kaela KarenIG #0.20 10e3/ulCritically high0.00-0.03The [facility]igh HospitalComment on above:Performed By: #### CBC #### [facility] [address] [place] [address] Kaela KarenIG %1.2 %Critically high0.0-0.5The [facility] HospitalCombeaumont hospital on above:Performed By: #### CBC #### [facility] [address] [place] [address] Kaela KarenLYMPH #1.6 103/ulNormal1.2-3.8The [facility]igh HospitalComment on above: Performed By: #### CBC #### [facility] [address] [place] [address] Kaela KarenLymphocytes/100 WBC (Bld)9.2 %Critically low20.5-60.0The [facility]igh HospitalComment on above:Performed By: #### CBC #### [facility] [address] [place] [address] Kaela KarenMANUAL DIFF REQNONormalThe [facility]beigh HospitalComment on above: Performed By: #### CBC #### [facility] [address] [place] [address] Kaela KarenMCH (RBC) [Entitic mass]30.8 gwSkrdil85.7-34.0The [facility] Comment on above:Performed By: #### CBC #### [facility] [address] [place] [address] Kaela DimasGLENS FALLS H[facility]PITAL (RBC) [Mass/Vol]34.3 g/rYWlqfni22.9-35.2The [facility] Comment on above:Performed By: #### CBC #### [facility] [address] [place] [address] Kaela DimasCANCER TREATMENT CENTERS [facility] (RBC) [Entitic vol]89.7 oOAqhfjt47.0-99.0The [facility] Comment on above:Performed By: #### CBC #### [facility] [address] [place] [address] Kaela DimasMONO #0.9 103/ulCritically high0.3-0.8The [facility]igh HospitalComment on above:Performed By: #### CBC #### [facility] [address] [place] [address] Kaela KarenMonocytes/100 WBC (Bld)5.5 %Normal1.7-12.0The [facility] Comment on above:Performed By: #### CBC #### [facility] [address] [place] [address] Kaela SahuenNEUT #14.1 103/ulCritically high1.4-6.5The [facility]igh HospitalComment on above:Performed By: #### CBC #### [facility] [address] [place] [address] Kaela KarenNeutrophils/100 WBC (Bld)83.3 %Critically high43.0-75.0The [facility]igh HospitalComment on above:Performed By: #### CBC #### [facility] [address] [place] [address] Kaela KarenPlatelet mean volume (Bld) [Entitic vol]11.0 fLNormal9.5-13.5The [facility]igh HospitalComment on above:Performed By: #### CBC #### [facility] [address] [place] [address] Kaela DimasPLT192 103/wlYpxzvk409-760Oaz [facility]igh HospitalComment on above: Performed By: #### CBC #### [facility] [address] [place] [address] Kaela DimasRBC3.77 106/ulCritically low4.20-5.40The [facility]igh HospitalComment on above:Performed By: #### CBC #### [facility] [address] [place] [address] Kaela DimasWBC16.9 103/ulCritically high4.0-11.0The [facility]igh HospitalComment on above:Performed By: #### CBC #### [facility] [address] [place] [address] Kaela SahuenASYMPTOMATIC COVID-19 ANTIGENon 87-93-2150SBF StatementSEE BELOW NormalThe [facility]igh HospitalCombeaumont hospital on above:Result Comment: This test has not been FDA [...] declaration is terminated or authorization is revoked sooner.Performed By: #### GTT3P #### [facility] [address] [place] [address] Kaela Jordan-CoV-2 (COVID-19) RNA RIGOBERTO+probe Ql (Unsp spec)NegativeNormal NEGATIVEThe [facility] on above:Result Comment: Negative results are presumptive. They do not preclude infection and should not be used as the sole basis for treatment decisions. Additional confirmatory testing by a molecular method should be considered.Performed By: #### GTT3P #### [facility] [address] [place] [address] Kaela KarenCBC AUTO DIFFon [id number] #0.1 103/ulNormal0.0-0.1The [facility] Reserve Hospitalment on above:Performed By: #### CBC #### [facility] [address] [place] [address] Kaela KarenBasophils/100 WBC (Bld)0.3 %Normal0.2-2.0The [facility] Comment on above:Performed By: #### CBC #### [facility] [address] [place] [address] Kaela KarenEO #0.1 103/ulNormal0.0-0.7The [facility]igh HospitalComment on above: Performed By: #### CBC #### [facility] [address] [place] [address] Kaela KarenEosinophils/100 WBC (Bld)0.3 %Critically low0.9-7.0The [facility]beigh HospitalComment on above:Performed By: #### CBC #### [facility] [address] [place] [address] Kaela KarenErythrocyte distribution width (RBC) [Ratio]12.0 %Tdlivs33.0-15.0The [facility] Hospitalment on above:Performed By: #### CBC #### [facility] [address] [place] [address] Kaela KarenHematocrit (Bld) [Volume fraction]36.9 %Plmzps33.0-48.0The [facility]igh HospitalComment on above:Performed By: #### CBC #### [facility] [address] [place] [address] Kaela KarenHemoglobin (Bld) [Mass/Vol]12.7 g/xMLwymsn28.0-16.0The [facility]igh HospitalComment on above:Performed By: #### CBC #### [facility] [address] [place] [address] Kaela KarenIG #0.19 10e3/ulCritically high0.00-0.03The [facility]igh HospitalComment on above:Performed By: #### CBC #### [facility] [address] [address] Kaela SahuenIG %1.0 %Critically high0.0-0.5The [facility]igh HospitalComment on above:Performed By: #### CBC #### [facility] [address] [place] [address] Kaela KarenLYMPH #1.4 103/ulNormal1.2-3.8The [facility]igh HospitalComment on above: Performed By: #### CBC #### [facility] [address] [place] [address] Kaela KarenLymphocytes/100 WBC (Bld)7.6 %Critically low20.5-60.0The [facility]beigh HospitalComment on above:Performed By: #### CBC #### [facility] [address] [place] [address] Kaela KarenMANUAL DIFF REQNONormalThe Glenbeigh HospitalComment on above: Performed By: #### CBC #### [facility] [address] [place] [address] Kaela KarenMCH (RBC) [Entitic mass]30.5 wpOwrpii34.7-34.0[facility] Comment on above:Performed By: #### CBC #### [facility] [address] [place] [address] Kaela KarenMCHC (RBC) [Mass/Vol]34.4 g/fVKtccsk17.9-35.2[facility] Comment on above:Performed By: #### CBC #### [facility] [address] [place] [address] Kaela KarenMCV (RBC) [Entitic vol]88.5 iMKbvvaj91.0-99.0[facility] Comment on above:Performed By: #### CBC #### [facility] [address] [place] [address] Kaela KarenMONO #1.0 103/ulCritically high0.3-0.8The [facility]igh HospitalComment on above:Performed By: #### CBC #### [facility] [address] [address] Kaela KarenMonocytes/100 WBC (Bld)5.5 %Normal1.7-12.0[facility] Comment on above:Performed By: #### CBC #### [facility] [address] [place] [address] Kaela KarenNEUT #15.7 103/ulCritically high1.4-6.5The [facility] HospitalComment on above:Performed By: #### CBC #### [facility] [address] [place] [address] Kaela KarenNeutrophils/100 WBC (Bld)85.3 %Critically high43.0-75.0The [facility] HospitalComment on above:Performed By: #### CBC #### [facility] [address] [place] [address] Kaela KarenPlatelet mean volume (Bld) [Entitic vol]11.8 fLNormal9.5-13.5The [facility] Hospitalment on above:Performed By: #### CBC #### [facility] [address] [place] [address] Kaela TquolJLZ166 103/ebSeybgb328-308Nzn [facility] Hospitalment on above: Performed By: #### CBC #### [facility] [address] [place] [address] Kaela KarenRBC4.17 106/ulCritically low4.20-5.40The [facility] Hospitalment on above:Performed By: #### CBC #### [facility] [address] [place] [address] Kaela NgyuxACT60.5 103/ulCritically high4.0-11.0The [facility] on above:Performed By: #### CBC #### [facility] [address] [place] [address] Kaela KarenDRUG SCREEN RAPID (URINE)on 20-26-3480IVUZaphakurRwhonfMGAWKFSZPef [facility] Hospitalment on above:Performed By: #### DRUGRPD #### [facility] [address] [place] [address] Kaela KarenBARNegativeNormalNEGATIVEMercy Health West HospitalComment on above: Performed By: #### DRUGRPD #### [facility] [address] [place] [address] Kaela KarenBUPNegativeNormalNEGATIVEMercy Health West HospitalComment on above: Performed By: #### DRUGRPD #### [facility] [address] [place] [address] Kaela KarenBZONegativeNormalNEGATIVEMercy Health West HospitalComment on above: Performed By: #### DRUGRPD #### [facility] [address] [place] [address] Kaela KarenCOCNegativeNormalNEGATIVEMercy Health West HospitalComment on above: Performed By: #### DRUGRPD #### [facility] [address] [place] [address] Kaela KarenCUT-OFFSSEE [facility] HospitalComment on above:Result Comment: AMP (Amphetamine): 500ng/mL, BAR (Barbituates): 200 ng/mL, BZO (Benzodiazepines): 150 ng/mL, BUP (Buprenorphine): 10 ng/mL, JERRY (Cocaine): 150 ng/mL, mAMP (Methamphetamine): 500 ng/mL, MTD (Methadone): 200 ng/mL, OPI (Opiates): 100 ng/mL, OXY (Oxycodone): 100 ng/mL, PCP (Phencyclidine): 25 ng/mL, PPX (Propoxyphene): 300 ng/mL, THC (Cannabinoids): 50 ng/mL, TCA (Trycyclic Antidepressants): 300 ng/mLPerformed By: #### DRUGRPD #### [facility] [address] [place] [address] KarenDRUG CUT HEADERDRUG CLASS TEST SYSTEM CUT-OFF CONCENTRATIONS ARE FOLLOWS:NormalThe [facility] HospitalCombeaumont hospital on above:Performed By: #### DRUGRPD #### [facility] [address] [place] [address] Kaela KarenmAMPNegativeNormalNEGATIVECleveland Clinic Mentor Hospital HospitalComment on above: Performed By: #### DRUGRPD #### [facility] [address] [place] [address] Kaela KarenMTDNegativeNormalNEGATIVEMercy Health West HospitalComment on above: Performed By: #### DRUGRPD #### [facility] [address] [place] [address] Kaela KarenOPINegativeNormalNEGATIVECleveland Clinic [facility] Hospital HospitalComment on above: Performed By: #### DRUGRPD #### [facility] [address] [place] [address] Kaela KarenOXYNegativeNormalNEGATIVEMercy Health West HospitalComment on above: Performed By: #### DRUGRPD #### [facility] [address] [place] [address] Kaela KarenPCPNegativeNormalNEGATIVEMercy Health West HospitalComment on above: Performed By: #### DRUGRPD #### [facility] [address] [place] [address] Kaela KarenPPXNegativeNormalNEGATIVEMercy Health West HospitalComment on above: Performed By: #### DRUGRPD #### [facility] [address] [place] [address] Kaela KarenTCANegativeNormalNEGATIVEMercy Health West HospitalCombeaumont hospital on above: Performed By: #### DRUGRPD #### [facility] [address] [place] [address] Kaela KarenTHCNegativeNormalNEGATIVEMercy Health West HospitalComment on above: Performed By: #### DRUGRPD #### [facility] [address] [place] [address] Kaela KarenTYPE AND SCREENon 91-17-8045CKQR AND SCREENNegativeNormalThSelect Medical Specialty Hospital - Southeast [place]Comment on above:Performed By: #### PTT #### [facility] [address] [place] [address] Kaela KarenGROUP B STREP CULTUREon 01-30-2021. agalactiae Ag Ql (Unsp spec) Culture Observations: NEGATIVE FOR GROUP B STREPTOCOCCUS.NormalThe [facility]igh HospitalComment on above: Performed By: #### PTT #### [facility] [address] [place] [address] Kaela Kruger PREG BIOPHY W NON STRESSon [id number] PREG BIOPHY W NON STRESS EXAMINATION: US [...] Electronically authenticated by: MICHELLE LANE Date: 2021-01-30 08:[address] [place], [place] [address]US PREG GROWTHon [id number] PREG GROWTHEXAMINATION: US PREG GROWTH HISTORY: Pre-existing hypertension complicating [...] Electronically authenticated by: MICHELLE LANE Date: 2021-01-30 08:25[facility] PREG BIOPHY W NON STRESSon [id number] PREG BIOPHY W NON STRESSEXAMINATION: US PREG BIOPHY W NON STRESS HISTORY: [...] Electronically authenticated by: MICHELLE LANE Date: 2021-01-23 07:22No[facility] PREG BIOPHY W NON STRESSon [id number] PREG BIOPHY W NON STRESSEXAMINATION: US PREG BIOPHY W NON STRESS HISTORY: [...] Electronically authenticated by: MICHELLE LANE Date: 2021-01-16 07:31[facility] SystemPROTEIN 24HR URINEon 01-14-2021T PROT, 24 HR UR603.9 mg/24 hr Critically high42.0-225.0The [facility] HospitalComment on above:Performed By: #### GTT3P #### [facility] [address] [place] [address] Kaela Cortez PROT12.2 mg/dLCritically high<=12.0The [facility] HospitalComment on above:Performed By: #### GTT3P #### [facility] [address] [address] Kaela KarenUR TOT APJ3429 ml/24 HRNormalThe [facility]igh HospitalComment on above: Performed By: #### GTT3P #### [facility] [address] [place] [address] Kaela KarenCBC AUTO DIFFon [id number] #0.0 103/ulNormal0.0-0.1The [facility] HospitalComment on above:Performed By: #### GTT3P #### [facility] [address] [place] [address] Kaela KarenBasophils/100 WBC (Bld)0.2 %Normal0.2-2.0[facility] Comment on above:Performed By: #### GTT3P #### [facility] [address] [place] [address] Kaela KarenEO #0.1 103/ulNormal0.0-0.7The [facility] HospitalComment on above: Performed By: #### GTT3P #### [facility] [address] [place] [address] Kaela KarenEosinophils/100 WBC (Bld)0.6 %Critically low0.9-7.0The [facility] HospitalCombeaumont hospital on above:Performed By: #### GTT3P #### [facility] [address] [place] [address] Kaela KarenErythrocyte distribution width (RBC) [Ratio]11.7 %Vcwnnz40.0-15.0The [facility] HospitalComment on above:Performed By: #### GTT3P #### [facility] [address] [place] [address] Kaela KarenHematocrit (Bld) [Volume fraction]34.5 %Critically low36.0-48.0The [facility] HospitalComment on above:Performed By: #### GTT3P #### [facility] [address] [place], [place] [id number] Kaela KarenHemoglobin (Bld) [Mass/Vol]12.1 g/jFLarvky04.0-16.0The [facility] HospitalComment on above:Performed By: #### GTT3P #### [facility] [address] [place] [address] Kaela SahuenIG #0.20 10e3/ulCritically high0.00-0.03The [facility] HospitalComment on above:Performed By: #### GTT3P #### [facility] [address] [place] [address] Kaelastephanie SahuenIG %1.2 %Critically high0.0-0.5The [facility] HospitalComment on above:Performed By: #### GTT3P #### [facility] [address] [place] [address] Kaela KarenLYMPH #1.5 103/ulNormal1.2-3.8The [facility] HospitalComment on above: Performed By: #### GTT3P #### [facility] [address] [place] [address] Kaela KarenLymphocytes/100 WBC (Bld)8.6 %Critically low20.5-60.0[facility] HospitalComment on above:Performed By: #### GTT3P #### [facility] [address] [place] [address] Kaela KarenMANUAL DIFF REQNONormalThe [facility] HospitalComment on above: Performed By: #### GTT3P #### [facility] [address] [place] [address] Kaela KarenMCH (RBC) [Entitic mass]30.6 sbPhsryo52.7-34.0[facility] Comment on above:Performed By: #### GTT3P #### [facility] [address] [place] [address] Kaela KarenMCHC (RBC) [Mass/Vol]35.1 g/hIWcuvhm07.9-35.2[facility] Comment on above:Performed By: #### GTT3P #### [facility] [address] [place] [address] Kaela KarenMCV (RBC) [Entitic vol]87.3 eUTjcsbp38.0-99.0[facility] Comment on above:Performed By: #### GTT3P #### [facility] [address] [address] Kaela KarenMONO #1.2 103/ulCritically high0.3-0.8The [facility] HospitalComment on above:Performed By: #### GTT3P #### [facility] [address] [id number] Kaela KarenMonocytes/100 WBC (Bld)6.6 %Normal1.7-12.0[facility] Comment on above:Performed By: #### GTT3P #### [facility] [address] [place] [address] Kaela KarenNEUT #14.4 103/ulCritically high1.4-6.5The [facility] HospitalComment on above:Performed By: #### GTT3P #### [facility] [address] [place] [address] Kaela KarenNeutrophils/100 WBC (Bld)82.8 %Critically high43.0-75.0The [facility] HospitalComment on above:Performed By: #### GTT3P #### [facility] [address] [place] [address] Kaela KarenPlatelet mean volume (Bld) [Entitic vol]12.1 fLNormal9.5-13.5The [facility] HospitalComment on above:Performed By: #### GTT3P #### [facility] [address] [place] [address] Kaela NsbnqVTS747 103/pvZgyoqg704-775Jtz [facility] HospitalComment on above: Performed By: #### GTT3P #### [facility] [address] [place] [address] Kaela KarenRBC3.95 106/ulCritically low4.20-5.40The [facility] HospitalComment on above:Performed By: #### GTT3P #### [facility] [address] [place] [address] Kaela WhecxKOU42.4 103/ulCritically high4.0-11.0The [facility] HospitalComment on above:Performed By: #### GTT3P #### [facility] [address] [place], [place] [id number] Kaela KarenCULTURE URINEon 53-67-8968IWYNVKT URINECulture Observations: LIGHT GROWTH OF MIXED GENITAL TINO. NO POTENTIAL PATHOGENS SEEN.NormalThe [facility] HospitalComment on above:Performed By: #### PTT #### [facility] [address] [place] [address] Kaela KarenLDHon 15-56-0968RIE410 U/MHliuoi791-565Jue [facility] HospitalComment on above:Performed By: #### URIC, LDH #### [facility] [address] [place] [address] Kaela KarenPROF 14(COMP METB)on 07-28-8901Ybksnck [Mass/Vol]2.7 g/dLCritically low3.5-5.0The [facility] HospitalComment on above:Performed By: #### GTT3P #### [facility] [address] [place] [address] Kaela KarenAlbumin/Globulin [Mass ratio]0.9 {ratio}NormalMercy Health West Hospital Comment on above:Performed By: #### GTT3P #### [facility] [address] [place] [address] Kaela KarenALP [Catalytic activity/Vol]134 U/LCritically ztpa03-820Lbv [facility] HospitalComment on above:Performed By: #### GTT3P #### [facility] [address] [place] [address] Kaela KarenALT [Catalytic activity/Vol]21 U/LNormal9-52The [facility] Comment on above:Performed By: #### GTT3P #### [facility] [address] [place] [address] Kaela KarenAnion gap [Moles/Vol]11.6 mmol/LNormalThe [facility] HospitalComment on above:Performed By: #### GTT3P #### [facility] [address] [place] [address] Kaela KarenAST [Catalytic activity/Vol]17 U/AJgkvmz76-40Pbb [facility] Comment on above:Performed By: #### GTT3P #### [facility] [address] [address] Kaela KarenBilirubin [Mass/Vol]0.2 mg/dLNormal0.2-1.3TSelect Medical Specialty Hospital [facility] Comment on above:Performed By: #### GTT3P #### [facility] [address] [address] Kaela KarenCalcium [Mass/Vol]9.1 mg/dLNormal8.4-10.2[facility] Comment on above:Performed By: #### GTT3P #### [facility] [address] [address] Kaela KarenChloride [Moles/Vol]106 mmol/LGiyikr52-751WocMercy Health West Hospital Comment on above:Performed By: #### GTT3P #### [facility] [address] [address] Kaela KarenCO2 [Moles/Vol]25.8 mmol/QCrabmr67.0-30.0[facility] Comment on above:Performed By: #### GTT3P #### [facility] [address] [address] Kaela KarenCreatinine [Mass/Vol]0.53 mg/dLNormal0.52-1.04[facility] Comment on above:Performed By: #### GTT3P #### [facility] [address] [address] Kaela KarenEGFR-AF ZAMBIAN>60Normal>=60The [facility] HospitalComment on above: Performed By: #### GTT3P #### [facility] [address] [address] Kaela KarenEGFR-NON AF ZAMBIAN>60Normal>=60The [facility] HospitalComment on above:Performed By: #### GTT3P #### [facility] [address] [address] Kaela KarenGlobulin (S) [Mass/Vol]3.0 g/dLNormalThe [facility] HospitalComment on above:Performed By: #### GTT3P #### [facility] [address] [address] Kaela KarenGlucose [Mass/Vol]85 mg/hJGsgrlw69-471Kbd [facility] HospitalComment on above:Performed By: #### GTT3P #### [facility] [address] [address] Kaela KarenPotassium [Moles/Vol]3.4 mmol/LNormal3.4-5.0[facility] Comment on above:Performed By: #### GTT3P #### [facility] [address] [address] Kaela KarenProtein [Mass/Vol]5.7 g/dLCritically low6.1-8.2[facility] Comment on above:Performed By: #### GTT3P #### [facility] [address] [address] Kaela KarenSodium [Moles/Vol]140 mmol/WNnwzsf886-624Oxh [facility] Comment on above:Performed By: #### GTT3P #### [facility] [address] [address] Kaela KarenUrea nitrogen [Mass/Vol]10.0 mg/dLNormal7.0-17.0The [facility] HospitalComment on above:Performed By: #### GTT3P #### [facility] [address] [address] Kaela KarenUrea nitrogen/Creatinine [Mass ratio]18.9 mg/mgNormalThe [facility] HospitalComment on above:Performed By: #### GTT3P #### [facility] [address] [address] Kaela KarenPTTon 38-22-4289cIPH Coag (Bld) [Time]23.6 cLppnat56.3-36.2The [facility] HospitalComment on above:Performed By: #### PTT #### [facility] [address] [place] [address] Kaela KarenURIC ACID SERUMon [id number] [Mass/Vol]3.7 mg/dLNormal2.5-6.2 The [facility] HospitalComment on above:Performed By: #### URIC, LDH #### [facility] [address] [address] Kaela KarenUA (CLEAN/CATCH) CORRECTIONAL CASEWORK SPECIALIST/MICRO IF IND.on 56-65-7391Yboukmzut Ql (U) NegativeNormalNEGATIVECleveland Clinic Mentor Hospital HospitalComment on above:Performed By: #### MALATHI UACSIND #### [facility] [address] [address] Kaela KarenClarity (U)CLEARNormalCLEARCleveland Clinic Mentor Hospital HospitalComment on above: Performed By: #### MALATHI UACSIND #### [facility] [address] [place] [address] Kaela KarenColor (U)LT. YELLOWNormalYELLOWMercy Health West HospitalComment on above:Performed By: #### MALATHI UACSIND #### [facility] [address] [place] [address] Kaela KarenGlucose Ql (U)NegativeNormalNEGATIVEMercy Health West HospitalComment on above:Performed By: #### MALATHI UACSIND #### [facility] [address] [place] [address] Kaela KarenHemoglobin Ql (U)NegativeNormalNEGATIVEMercy Health West HospitalComment on above:Performed By: #### MALATHI UACSIND #### [facility] [address] [address] Kaela KarenKetones Ql (U)NegativeNormalNEGATIVECleveland Clinic Mentor Hospital HospitalComment on above:Performed By: #### MALATHI UACSIND #### [facility] [address] [place] [address] Kaela KarenLEUKOCYTESTRACEAbnormalNEGATIVEMercy Health West HospitalComment on above:Performed By: #### MALATHI UACSIND #### [facility] [address] [place] [address] Kaela KarenNitrite Ql (U)NegativeNormalNEGATIVECleveland Clinic Mentor Hospital HospitalComment on above:Performed By: #### RADHA SERVIN #### [facility] [address] [address] Kaela KarenpH (U)6.0 [pH]Normal5-9The [facility] HospitalComment on above: Performed By: #### RADHA SERVIN #### [facility] [address] [address] Kaela KarenSPEC GRAVITY1.956Jkjppw1.005-<=1.025The [facility] HospitalComment on above:Performed By: #### LISA SERVININD #### [facility] [address] [place] [address] Kaela KarenUA PROTEINNegativeNormalNEGATIVE/ TRACEThe [facility] HospitalComment on above:Performed By: #### RADHA SERVIN #### [facility] [address] [address] Kaela KarenUR MICRO INDINDICATEDNoJoint Township District Memorial HospitalComment on above: Performed By: #### RADHA SERVIN #### [facility] [address] [address] Kaela KarenUrobilinogen Qn (U)0.2 {Sylvester'U}/dLNormal0.2 - 1.0The [facility] HospitalComment on above:Performed By: #### LISA SERVININD #### [facility] [address] [address] Kaela KarenURINE MICROSCOPIC ONLYon 11-50-2360FZRDFQXLJCRUVHwnojvjnIJUZ SEENMercy Health West HospitalComment on above:Performed By: #### LISA SERVININD #### [facility] [address] [address] Kaela KarenBacteria identified Cx Nom (U)INDICATEDNoJoint Township District Memorial Hospital Comment on above:Performed By: #### RADHA SERVIN #### [facility] [address] [address] Kaela KarenCASTNONE SEENNormalNONE SEENMercy Health West HospitalComment on above: Performed By: #### MALATHI UACSIND #### [facility] [address] [address] Kaela KarenCrystals LM Nom (Urine sed)NONE SEENNormalNONE SEENThe [facility] HospitalComment on above:Performed By: #### MALATHI UACSIND #### [facility] [address] [address] Kaela KarenEpithelial cells LM Ql (Urine sed)FEWAbnormalNONE SEEN /RAREThe [facility] HospitalComment on above:Performed By: #### MALATHI UACSIND #### [facility] [address] [place] [address] Kaela KarenMUCOUSSMALLAbnormalNONE SEENThe [facility] HospitalCombeaumont hospital on above: Performed By: #### MALATHI UACSIND #### [facility] [address] [place] [address] Kaela FkkrlQXE0-1Owxzuf6-7Qst [facility] HospitalComment on above:Performed By: #### MALATHI UACSIND #### [facility] [address] [place] [address] Kaela KarenWBC2-5AbnormalNONE SEENThe [facility] HospitalCombeaumont hospital on above: Performed By: #### MALATHI UACSIND #### [facility] [address] [place] [address] Kaela KarenUS PREG BIOPHY W NON STRESSon [id number] PREG BIOPHY W NON STRESS EXAMINATION: US [...] Electronically authenticated by: IRINEO COMBS Date: 2021-01-09 07:18NoJoint Township District Memorial HospitalUS PREG GROWTHon [id number] PREG GROWTHEXAMINATION: US PREG GROWTH HISTORY: Pre-existing hypertension complicating [...] cm; 32 weeks 2 days; % EFW: 4.130249, 39% FL/AC: 0.648183 FL/BPD: 0.377616 HC/AC: 1.243104 GESTATIONAL AGE: Age by EDC: 32 weeks 1 day SUSANNA by EDC: 02/24/2021 Age by US: 32 weeks 0 days SUSANNA by US: 02/25/2021 IMPRESSION: Normal interval growth Electronically authenticated by: IRINEO COMBS Date: 2020-12-31 09:38[facility] SystemGTT 3 HR PREGon 26-67-5087Reajhhd [Mass/Vol]86 mg/dLNormal 74-106[facility] HospitalComment on above:Performed By: #### GTT3P #### [facility] [address] [place] [address] Kaela KarenGlucose [Mass/Vol]179 mg/dLHolzer Health SystemComment on above:Performed By: #### GTT3P #### [facility] [address] [address] Kaela KarenGlucose [Mass/Vol]131 mg/dLHolzer Health SystemComment on above:Performed By: #### GTT3P #### [facility] [address] [place] [address] Kaela KarenGlucose [Mass/Vol]145 mg/dLHolzer Health SystemComment on above:Performed By: #### GTT3P #### [facility] [address] [place] [address] Kaela KarenGLUCOSE - 1HRon 43-45-8626Qmqexwy [Mass/Vol]151 mg/dLCritically high 74-106The [facility] HospitalComment on above:Result Comment: patient was approximately 5 minutes late for drawPerformed By: #### GLU1HR #### [facility] [address] [place] [address] Kaela KarenHEMOGRAM AND PLATELon 28-65-5983Tnizqpakfi (Bld) [Volume fraction] 38.4 %Cfetsf96.0-48.0The [facility] HospitalComment on above:Performed By: #### GTT3P #### [facility] [address] [place] [address] Kaela KarenHemoglobin (Bld) [Mass/Vol]13.2 g/qGXkbqzb71.0-16.0The [facility] HospitalComment on above:Performed By: #### GTT3P #### [facility] [address] [place] [address] Kaela KarenMCH (RBC) [Entitic mass]30.8 kdXoijtg36.7-34.0[facility] Comment on above:Performed By: #### GTT3P #### [facility] [address] [place] [address] Kaela KarenMCHC (RBC) [Mass/Vol]34.4 g/cCPcrbud89.9-35.2[facility] Comment on above:Performed By: #### GTT3P #### [facility] [address] [place] [address] Kaela KarenMCV (RBC) [Entitic vol]89.5 xGFkypxa11.0-99.0[facility] Comment on above:Performed By: #### GTT3P #### [facility] [address] [place] [address] Kaela IyilwDGD055 103/wuAkypju181-487Mep [facility] HospitalComment on above: Performed By: #### GTT3P #### [facility] [address] [place], [place] [address] Kaela DimasRBC4.29 106/ulNormal4.20-5.40The [facility] HospitalComment on above: Performed By: #### GTT3P #### [facility] [address] [place], [place] [address] Kaela DimasWBC17.0 103/ulCritically high4.0-11.0The [facility] HospitalComment on above:Performed By: #### GTT3P #### [facility] [address] [place], [place] [address] Kaela DimasUS PREG GROWTHon [id number] PREG GROWTHEXAMINATION: US PREG GROWTH HISTORY: Pre-existing hypertension complicating [...] cm; 28 weeks 0 days; % EFW: 2.153754, 2 lbs. 10 oz., 40% FL/AC: 0.963556 FL/BPD: 0.433356 HC/AC: 1.868373 GESTATIONAL AGE: Age by EDC: 28 weeks 1 day SUSANNA by EDC: 02/24/2021 Age by US: 20 weeks 2 days SUSANNA by US: 02/23/2021 IMPRESSION: Normal interval growth Electronically authenticated by: IRINEO COMBS Date: 2020-12-03 10:04[facility] Vital Signs Date TimeVital SignValuePerforming OwbveovbqWrvwsthd31-82-7432 10:18-0400 Diastolic blood bkeupzuh91 mm[Hg]Fely Nieves DO Work Phone: [facility]10-17-2025 10:18-0400 Systolic blood jcelstid602 mm[Hg]Fely Cadenao DO Work Phone: [phone] [place], [place] 5031010-17-2025 09:31-0400 Body gawnje298.02 cmFely Ezequiel DO Work Phone: [phone])[address] [place], [place] 5031010-17-2025 09:31-0400 Body mass index (BMI) [Ratio]38.4 kg/f3Grdljoh Ezequiel DO Work Phone: [phone])[address] [place], [place] 5031010-17-2025 09:31-0400 Body mnsqxfajlvx90.9 [degF]Fely Ezequiel DO Work Phone: [phone])[address] [place], [place] 5031010-17-2025 09:31-0400 Body .42 kgFely Ezequiel DO Work Phone: [address] [place], [place] 5031010-17-2025 09:31-0400 Heart rate84 /minRosalinon Ezequiel DO Work Phone: [phone])[address] [place], [place] 5031010-17-2025 09:31-0400 Respiratory rate18 /minFely Ezequiel DO Work Phone: [address] [place], [place] 5031010-17-2025 09:31-0400 SaO2% (BldA) [Mass fraction]97 %Fely Ezequiel DO Work Phone: [address] [place], [place] 5031003-25-2025 14:41-0400 Body mass index (BMI) [Ratio]36.51 kg/s2Jbsck Jacquie DO Work Phone: [facility] HospitalBoslbvedsk01-46-6438 14:41-0400Body kddjxu65.5 kg Zhen Jacquie DO Work Phone: [facility] HospitalFzvqxridux00-93-5027 14:41-0400Diastolic blood nergilcj13 mm[Hg]Zhen Jacquie DO Work Phone: [facility] HospitalKqxfepuqvt32-30-5754 14:41-0400Systolic blood lnvdxkhe419 mm[Hg]Zhen Jacquie DO Work Phone: [facility] HospitalYgcmnukdpu63-06-4845 15:37-0500Body mass index (BMI) [Ratio]36.46 kg/m2Madisyn Silvestre PA Work Phone: [facility] HospitalAvtvjbytnl26-30-3122 15:37-0500Body .35 kgMadisyn Julioey PA Work Phone: [facility] HospitalAulxdctshl22-32-6243 15:37-0500Diastolic blood oeakfqhv02 mm[Hg]Madisyn Julioey PA Work Phone: [facility] HospitalSbrlbbvgmg87-08-7264 15:37-0500Systolic blood vcyeefyo215 mm[Hg]Madisyn Julioey PA Work Phone: [facility] HospitalNkxqqsphxs91-92-0361 10:31-0500Body avfyed375.9 Lila Dickey MD Work Phone: [facility]02-07-2025 10:31-0500Body mass index (BMI) [Ratio]39.59 kg/g4UzupaGerardo Dickey MD Work Phone: [facility]02-07-2025 10:31-0500Body tvesti495.51 kgGerardo Dickey MD Work Phone: [facility]02-07-2025 10:31-0500Diastolic blood kqgewsou62 mm[Hg]Gerardo Dickey MD Work Phone: [facility]02-07-2025 10:31-0500Heart rate 102 /minGerardo Dickey MD Work Phone: [facility]02-07-2025 10:31-5362LaM9% (BldA) [Mass fraction]97 %Gerardo Dickey MD Work Phone: [facility]02-07-2025 10:31-0500Systolic blood mm[Hg]Gerardo Dickey MD Work Phone: [facility]02-04-2025 11:13-0500Body hiqjuu740.9 Steff Cesar MD Work Phone: [facility]02-04-2025 11:13-0500Body mass index (BMI) [Ratio]39.84 kg/e8OuowkrmtSanam Cesar MD Work Phone: [facility]02-04-2025 11:13-0500Body faqsmb284.15 kgSanam Cesar MD Work Phone: 1(452)645-[facility]02-04-2025 11:13-0500Diastolic blood pdqdswzi40 mm[Hg]Sanam Cesar MD Work Phone: 1(648)415-[facility]02-04-2025 11:13-0500Heart rate 102 /minSanam Cesar MD Work Phone: [facility]02-04-2025 11:13-1773HzM8% (BldA) [Mass fraction]99 %Sanam Cesar MD Work Phone: 1(256)502-[facility]02-04-2025 11:13-0500Systolic blood wohdymrb913 mm[Hg]Sanam Cesar MD Work Phone: [facility]01-28-2025 14:37-0500Body mass index (BMI) [Ratio]41.42 kg/p1Ajrap Jacquie DO Work Phone: [facility] HospitalVbxzmtxexo17-99-9792 14:37-0500Body akzykv024.05 kgCorey Jacquie DO Work Phone: [facility] HospitalLwnzhhnljr75-06-7375 14:37-0500Diastolic blood nmkohfqo86 mm[Hg]Zhen Jacquie DO Work Phone: [facility] HospitalPotiyosmkz56-46-4985 14:37-0500Systolic blood zigzmtxn112 mm[Hg]Zhen Jacquie DO Work Phone: [facility] HospitalGppubedkmc25-27-6153 15:09-0500Body mass index (BMI) [Ratio]41.45 kg/j1Ctfgc Jacquie DO Work Phone: 1(419)[address]01-21-2025 15:09-0500Body ezeftk230.14 kgCorey Jacquie DO Work Phone: 1(732)738-[address] [place], [place] [address]Apszktuemt73-23-0065 15:09-0500Diastolic blood buwxwwzn03 mm[Hg]Zhen Jacquie DO Work Phone: 1(449)[facility] [place], [place] [address]Kgkiwqxokt06-89-7178 15:09-0500Systolic blood fctjxopg834 mm[Hg]Zhen Jacquie DO Work Phone: 1(314)[address] [place], [place] 7174901-13-2025 16:26-0500Body mass index (BMI) [Ratio]41.65 kg/q0Tjptx Jacquie DO Work Phone: 1(901)[address] [place] [address]-13-2025 16:26-0500Body .65 kgCorey Jacquie DO Work Phone: 1(134)[facility] [place], [place] [address]Dqmcboxuso10-52-4470 16:26-0500Diastolic blood dtfhuqfy92 mm[Hg]Zhen Jacquie DO Work Phone: 1(991)[facility] [place], [place] [address]Skjzrwpfie70-09-2999 16:26-0500Systolic blood ocyidrfo741 mm[Hg]Zhen Jacquie DO Work Phone: 1(286)[facility] [place], [place] [address]Uykqnhryre52-99-5808 15:22-0500Body mass index (BMI) [Ratio]41.81 kg/m2Amy Nirmala KERNS Work Phone: 1(315)[facility] [place], [place] [address]Hrlkqgnwax38-15-3024 15:22-0500Body .05 kgAmy Nirmala PA Work Phone: 1(753)[facility] [place], [place] [address]Bhzvqkhtsu60-23-4064 15:22-0500Diastolic blood zpqvtcyq39 mm[Hg]Madisyn KERNS Work Phone: 1(464)[facility] [place], [place] [address]Yhkyjjmbpm08-83-5009 15:22-0500Systolic blood uxvshudg559 mm[Hg]Madisyn Silvestre PA Work Phone: 1(571)[facility] [place], [place] [address]Wtwfdmmvrv16-89-8239 16:19-0500Body mass index (BMI) [Ratio]41.81 kg/l5Xybxv Jacquie DO Work Phone: 1(024)[facility] [place], [place] [address]Zykczmaxei68-74-4966 16:19-0500Body eveydd106.05 kgCorey Jacquie DO Work Phone: [facility] HospitalFkamvtugyr94-80-9471 16:19-0500Diastolic blood upmwsguf25 mm[Hg]Zhen Jacquie DO Work Phone: [facility] HospitalXpeiasxfwx32-94-5191 16:19-0500Systolic blood onphfhkd951 mm[Hg]Zhen Jacquie DO Work Phone: 1(216)045-[address] [place], [place] [address]Aaenhijcto40-96-5138 11:13-0500Body lyzwhs612 cm Gregg Fox MD Work Phone: 1(496)[address] [place], [place] 6892312-13-2024 11:13-0500Body mass index (BMI) [Ratio]40.74 kg/e2OydkqoGregg Fox MD Work Phone: 1(466)[address] [place], [place] 6892312-13-2024 11:13-0500Body kzzixo855.33 kgGregg Fox MD Work Phone: 1(101)[address] [place], [place] 6892312-13-2024 11:13-0500Diastolic blood ymxyjelk12 mm[Hg]Gregg Fox MD Work Phone: 1(684)[address] [place], [place] 6892312-13-2024 11:13-0500Heart rate 104 /minGregg Fox MD Work Phone: 1(564)[address] [place], [place] 6892312-13-2024 11:13-0500Systolic blood pwkzifzq772 mm[Hg]Gregg Fox MD Work Phone: 1(706)[address] [place], [place] 6892311-14-2024 15:34-0500Body mass index (BMI) [Ratio]40.6 kg/m2Madisyn KERNS Work Phone: 1(394)615-[facility] [place] [address]Dqbxxdjnjv43-19-3985 15:34-0500Body usgemn178.96 kgMadisyn KERNS Work Phone: [facility] HospitalCjqlpocrpe78-92-4601 15:34-0500Diastolic blood dytnjufv07 mm[Hg]Madisyn KERNS Work Phone: 1(424)339-[address] [place] [address]-14-2024 15:34-0500Systolic blood sqtjuinh690 mm[Hg]Madisyn KERNS Work Phone: 1(144)537-[address] [place], [place] [address]Vsuchxvjgi13-28-1134 12:07-0400Body mass index (BMI) [Ratio]39.5 kg/c2Hesss Jacquie DO Work Phone: 1(344)407-[address] [place], [place] [address]Vhfccolwga78-87-5458 12:07-0400Body .15 kgCorey Jacquie DO Work Phone: 1(936)[facility] [place], [place] [address]Rsjzaoomco96-16-2160 12:07-0400Diastolic blood mm[Hg]Zhen Jacquie DO Work Phone: 1(368)[facility] [place], [place] [address]Qvllitpvrl93-99-1178 12:07-0400Systolic blood ktkmkomw310 mm[Hg]Zhen Jacquie DO Work Phone: 1(861)[facility] [place], [place] [address]Jzjoszpqcb26-93-7069 08:46-0400Body mass index (BMI) [Ratio]39.41 kg/m2Madisyn KERNS Work Phone: 1(080)[facility] [place], [place] [address]Oxqvyvsmia18-12-6035 08:46-0400Body .92 kgMadisyn KERNS Work Phone: 1(463)[facility] [place], [place] [address]Gucrwzkocm41-33-4388 08:46-0400Diastolic blood rlbzwcim72 mm[Hg]Madisyn KERNS Work Phone: 1(174)211-[address] [place], [place] [address]Rcqfxpsjew61-31-4055 08:46-0400Systolic blood adlegiwl070 mm[Hg]Madisyn KERNS Work Phone: 1(850)[facility] [place], [place] [address]Geactyvtru04-27-2349 11:34-0400Body mass index (BMI) [Ratio]39.5 kg/p9Gkmtb Jacquie DO Work Phone: 1(541)[address] [place], [place] [address]Qcbnzuamlw44-45-1580 11:34-0400Body qcaudy977.15 kgCorey Jacquie DO Work Phone: 1(059)[facility] [place], [place] [address]Tcdwwerzqa19-87-2540 11:34-0400Diastolic blood vhlxhibp14 mm[Hg]Zhen Jacquie DO Work Phone: 1(043)[facility] [place] [address]-21-2024 11:34-0400Systolic blood vhzgpdal956 mm[Hg]Zhen Braggo DO Work Phone: [facility] HospitalUqgcactjfo98-66-1012 18:14-0400Diastolic blood bqqwuhch34 mm[Hg]MD Jacques Mccarthy Work Phone: [facility]07-01-2024 18:14-0400 Heart autd418 /minMD Jacques Mccarthy Work Phone: 1(037)447-[address] [place], [place] 3866107-01-2024 18:14-0400 Respiratory rate18 /minMD Jacques Miguel Ángel Work Phone: 1(305)[address]07-01-2024 18:14-0400 SaO2% (BldA) [Mass fraction]100 %MD Jacques Mccarthy Work Phone: 1(263)[address]07-01-2024 18:14-0400 Systolic blood gicxunrv370 mm[Hg]MD Jacques Mccarthy Work Phone: 1(790)054-[address] [place], [place] 3866107-01-2024 14:04-0400 Body vyfxga634.02 cmMD Jacques Jongnona Work Phone: 1(471)822-[address] [place], [place] 3866107-01-2024 14:04-0400 Body qpctqfbovjs37.4 [degF]MD Jacques Mccarthy Work Phone: 1(010)[address]07-01-2024 14:04-0400 Body xcaywo20.5 kgMD Jacques Mccarthy Work Phone: 1(392)671-[address] [place] [address] Encounters Encounter DateEncounter TypeCare ProviderFacilityStart: 05-18-2025 End: 13-70-2696frbmhcbxzaYlptham Rizzo DO Work Phone: [facility]: 05-18-2025 End: 18-95-4480Ufppixs encounter procedureKaedmund Nieves DO-[facility] [place] Work Phone: Start: 04-26-2025 End: 52-96-3335Qcyyyqlfh encounterSusan [facility] Start: 10-24-2024 End: 82-31-5304uhjtnevjfnMFWOL FAZIONot AvailableStart: 10-24-2024 End: 62-82-4129Kxeatabhdb care visitCorey Jacquie DO Work Phone: noms [facility] OBComment on above:6 weeks follow-up; S/P section; Gestational diabetes mellitus (GDM), delivered, current hospitalizationStart: 09-26-2024 End: 21-35-5772ebftxhpyatDND RAMEYNot AvailableStart: 09-26-2024 End: 51-10-2299Zrakrq follow up visit related to original Gem KERNS Work Phone: noms [facility] OBComment on above:Encounter for visit; S/P sectionStart: 09-26-2024 End: 55-89-3541Bcedpy Daniela KERNS Work Phone: noms [facility] OBStart: 09-26-2024 End: 50-94-4425Loztmf Daniela KERNS Work Phone: noms [facility] OBStart: 09-16-2024 End: 13-83-6389Jvgxrlaadu and management of inpatientC[facility] HospitalStart: 09-14-2024 End: 48-03-9536Ezxcfrndqh and management of inpatientDAVID A [facility] HospitalStart: 05-49-1877jlbqhpmfnwZHDXILFSanford [facility] Center Ambulatory PPGStart: 09-08-2024 End: 93-88-0819Zwrrbciru Result EncounterCorey Jacquie DO Work Phone: noms External Department UnsolicitedStart: 09-08-2024 End: 28-42-9300Otxmrzxqm Result EncounterCorey Jacquie DO Work Phone: noms External Department UnsolicitedStart: 09-08-2024 End: 18-53-0019Geaobxuoz encounterTerra Lundberg MD Work Phone: [phone]-Rtejv [facility] Start: 09-08-2024 End: 41-14-6391Oczdqp consultation new/estab patient 60 Ana Dickey MD Work Phone: [facility] CardiologyComment on above: Pulmonary hypertension (CMS-HCC) (Primary Dx); 35 weeks gestation of ; Chronic hypertension affecting ; TachycardiaStart: 09-08-2024 End: 22-35-5688zhwitpjyvjDFHKCAren DICKEYProMedica New Holland HospitalStart: 09-07-2024 End: 38-35-0658Ytiva abstractingScanning Provider ExternalProMedica Physicians CardiologyStart: 09-05-2024 End: 05-98-8131Zkdbdctty encounterTerra Lundberg MD Work Phone: [phone]-Inaku [facility] Start: 09-05-2024 End: 83-52-8002wnzksadukrMMQECOXJ K F WHITFIELDWadsworth-Rittman Hospitaltart: 09-05-2024 End: 59-26-7182Zhrauy consultation new/estab patient 80 Kristen Cesar MD Work Phone: [facility] CardiologyComment on above: arrhythmia affecting , antepartum (Primary Dx); Abnormal ultrasonic finding on screening of mother, antepartum; Anomaly of heart of fetus affecting , antepartum, single or unspecified fetusStart: 08-30-2024 End: 18-29-3443Qgastdmkv Result EncounterCorey Jacquie DO Work Phone: noms External Department UnsolicitedStart: 08-30-2024 End: 53-43-1026Yfpvhtygp Result EncounterCorey Jacquie DO Work Phone: noms External Department UnsolicitedStart: 08-29-2024 End: 33-87-7726Pcdnfwpt flow sheetCorey Jacquie DO Work Phone: noms BCP OBComment on above:34 weeks gestation of ; Third trimester pregnancyStart: 08-29-2024 End: 11-06-8901gjbxctwgmmQURUU FAZIONot AvailableStart: 08-29-2024 End: 82-26-3989Ujqcgh flowsheetCorey Jacquie DO Work Phone: noms BCP OBStart: 08-29-2024 End: 50-85-8984Jeslbt flowsheetCorey Jacquie DO Work Phone: noms BCP OBStart: 08-22-2024 End: 30-97-8093qskxwdbepnWNDAW FAZIONot AvailableStart: 08-22-2024 End: 90-42-7437Shmqjmxk flow sheetCorey Jacquie DO Work Phone: noms [facility] OBComment on above:Third trimester ; 34 weeks gestation of ; Insulin controlled gestational diabetes mellitus (GDM) during , antepartumStart: 08-22-2024 End: 12-72-4390Bcylow flowsheetCorey Jacquie DO Work Phone: noms BCP OBStart: 08-22-2024 End: 58-85-5253Sxzxht flowsheetCorey Jacquie DO Work Phone: noms BCP OBStart: 08-16-2024 End: 98-99-2727Sxxijpzksbeur procedureJudie Stearns RDMSMaternal- Medicine at [facility]ittman Hospitaltart: 08-15-2024 End: 13-85-1135Vaklun outpatient visit 25 minutesTerra Lundberg MD Work Phone: [phone]-Dxxul [facility] Comment on above:32 weeks gestation of (Primary Dx); Gestational diabetes mellitus (GDM) in third trimester, gestational diabetes method of control unspecified; Chronic hypertension affecting ; BMI 40.0-44.9, adult ([facility]); arrhythmia affecting , antepartum; Polyhydramnios affecting ; Separation of chorion and amnion membranes, antepartumStart: 08-15-2024 End: 63-86-7761Qzsizu OnlyJudie Stearns RDMSMaternal- Medicine at [facility] HospitalComment on above:Abnormal ultrasonic finding on screening of mother, antepartum (Primary Dx)Start: 08-14-2024 End: 80-29-1600ockzmbrerzPBITG FAZIONot AvailableStart: 08-14-2024 End: 44-76-2304Ezmlqitk flow sheetCorey Jacquie DO Work Phone: NOZO BCP OBComment on above:32 weeks gestation of ; Third trimester pregnancyStart: 08-14-2024 End: 65-27-0845Yicgbx flowsheetCorey Jacquie DO Work Phone: NOKH BCP OBStart: 08-14-2024 End: 93-14-6269Fpztal flowsheetCorey Jacquie DO Work Phone: NOGN BCP OBStart: 08-07-2024 End: 21-69-8067Nslnvhpuw Result EncounterCorey Jacquie DO Work Phone: NOAU External Department UnsolicitedStart: 08-07-2024 End: 52-07-8679Glpeigvts Result EncounterCorey Jacquie DO Work Phone: NOJS External Department UnsolicitedStart: 08-05-2024 End: 48-44-0658Ruzamrqnm Result EncounterCorey Jacquie DO Work Phone: noms External Department UnsolicitedStart: 08-05-2024 End: 02-12-0765Nfatoabrz Result EncounterCorey Jacquie DO Work Phone: noms External Department UnsolicitedStart: 08-04-2024 End: 25-29-6068Qyfjslsbr Result EncounterCorey Jacquie DO Work Phone: NOIR External Department UnsolicitedStart: 08-04-2024 End: 30-43-3014Dhaiomsom Result EncounterCorey Jacquie DO Work Phone: noms External Department UnsolicitedStart: 07-31-2024 End: 25-68-6662Cdhakgxu flow sheetMadisyn KERNS Work Phone: noms BCP OBComment on above:Third trimester ; 30 weeks gestation of pregnancyStart: 07-31-2024 End: 28-40-3288klcvzcsrsjUHH RAMEYNot AvailableStart: 07-31-2024 End: 17-49-2404Bssqxd flowsheetMadisyn KERNS Work Phone: noms BCP OBStart: 07-31-2024 End: 06-13-3639Jhdxhx hannahheetMadisyn KERNS Work Phone: noms BCP OBStart: 07-17-2024 End: 34-45-0450ifrqafrfevAOSRG FAZIONot AvailableStart: 07-17-2024 End: 15-85-1528Hzbwbfzd flow sheetCorey Jacquie DO Work Phone: noms [facility] OBComment on above:Third trimester ; 28 weeks gestation of ; Gestational diabetes mellitus (GDM) in third trimester, gestational diabetes method of control unspecified; Hypertension, unspecified type (CMS/HCC); Gestational diabetes mellitus (GDM), antepartum, gestational diabetes method of control unspecified; Elevated glucose tolerance testStart: 07-14-2024 End: 07-41-8269Tpvnjb consultation new/estab patient 60 Gracia Fox MD Work Phone: Maternal Medicine CitraComment on above: Gestational diabetes mellitus (GDM), antepartum, gestational diabetes method of control unspecified(Primary Dx); Chronic hypertension affecting pregnancyStart: 07-14-2024 End: 96-87-2263ikpatojcwyXWJRJZPeconic Bay Medical Center Ambulatory PPGStart: 07-13-2024 End: 94-53-4377Gypnfpklu Result EncounterMadisyn KERNS Work Phone: noms External Department UnsolicitedStart: 07-13-2024 End: 59-39-6297Enmagivun Result EncounterMadisyn KERNS Work Phone: noms External Department UnsolicitedStart: 06-21-2024 End: 98-12-6430Amxii Woodrow Fox MD Work Phone: [phone]-Unhzv [facility] Start: 06-15-2024 End: 58-29-1699Uhetyyvg flow sheetMadisyn KERNS Work Phone: NOMS [facility] OBComment on above:Second trimester ; 24 weeks gestation of ; Diabetes mellitus screening; Elevated blood pressure affecting in first trimester, antepartum; High blood pressure affecting in first trimester, antepartum; Heartburn during in second trimesterStart: 06-15-2024 End: 09-80-4917qykqfurpxpALL RAMEYNot AvailableStart: 06-15-2024 End: 01-00-1397Jwohob Daniela KERNS Work Phone: NOAB [facility] OBStart: 06-15-2024 End: 08-11-4185Pnmyzz Daniela KERNS Work Phone: NOJI BCP OBStart: 05-18-2024 End: 79-98-0635Sahhwt flowsheetCorey Jacquie DO Work Phone: NOGY [facility] OBStart: 05-18-2024 End: 06-17-2232Niwrku flowsheetCorey Jacquie DO Work Phone: NORI [facility] OBStart: 05-18-2024 End: 74-40-3997ohhbeziuyzEDMDK FAZIONot AvailableStart: 05-18-2024 End: 70-49-6175Qpkrkysl flow sheetCorey Jacquie DO Work Phone: NOWF [facility] OBComment on above:20 weeks gestation of ; Second trimester pregnancyStart: 04-20-2024 End: 64-26-1822Zwjhyo Daniela KERNS Work Phone: NOMS BCP OBStart: 04-20-2024 End: 37-58-9175Zflrtc Daniela KERNS Work Phone: NOMS BCP OBStart: 04-20-2024 End: 38-58-0827Youetc outpatient visit 15 minutesAmy Nirmala KERNS Work Phone: NOMS [facility] OBComment on above:Screening, , for anatomic survey; Well woman exam with routine gynecological exam; Screen for STD (sexually transmitted disease); Vaginal discharge; Second trimester pregnancyStart: 04-20-2024 End: 14-35-7818Neidmwu encounter procedureMadisyn KERNS Work Phone: noms HealthcareStart: 04-20-2024 End: 42-75-9790zkjqzchjgbXKG RAMEYNot AvailableStart: 03-22-2024 End: 24-54-1560Zeoexq flowsheetCorey Jacquie DO Work Phone: noms BCP OBStart: 03-22-2024 End: 19-34-2457Ilociv flowsheetCorey Jacquie DO Work Phone: noms BCP OBStart: 03-22-2024 End: 84-46-9948Kowektsr flow sheetCorey Jacquie DO Work Phone: noms BCP OBComment on above:Second trimester ; Abnormal CBCStart: 03-22-2024 End: 70-34-4396kspxoizkrqORMGC FAZIONot AvailableStart: 02-24-2024 End: 33-64-7192zabpnmibywQRUOG FAZIONot AvailableStart: 02-22-2024 End: 97-86-5755nbrzylproyQTV RAMEYNot AvailableStart: 02-11-2024 End: 44-17-7338gqfvevfvcpFGXGV FAZIONot AvailableStart: 02-08-2024 End: 76-65-0961lmsbdhiuvbQSEZD FAZIONot AvailableStart: 01-31-2024 End: 18-12-3937Yudzgpsue department patient visitMD Jacques Mccarthy Work Phone: [facility] Work Phone: Start: 10-08-2021 End: 50-65-9209gvljhvrhwgNW ZHEN FAZIOFacility:R3Nppmk: 49-80-5923ozcpgomsfkQE ZHEN FAZIOFacility:Z4Kdcmp: 02-11-2021 End: 93-15-9030gqmlkapswiMJ ZHEN FAZIOFacility:U6Axtsl: 37-07-5239Tlpbniedwp and management of inpatientDR ZHEN FAZIOFacility:J4Ftuug: 02-05-2021 End: 12-12-2959Pvvozwxffq and management of inpatientDR ZHEN FAZIOFacility:H1 Start: 01-30-2021 End: 34-18-1551ebhjjvoblgJC ZHEN FAZIOFacility:I3Pldpn: 01-29-2021 End: 67-25-5916bjideulucqIM ZHEN FAZIOFacility:Q3Ubtrn: 01-22-2021 End: 45-57-9396vlpwxmkhtyTL ZHEN FAZIOFacility:T3Ouxzg: 01-15-2021 End: 73-94-3576tfrxpoivhoYX ZHEN FAZIOFacility:C6Uzbai: 01-14-2021 End: 47-17-9117qhgygnspxuQI ZHEN FAZIOFacility:C4Bdezc: 01-13-2021 End: 38-77-0099dymezbzpioMR ZHEN FAZIOFacility:O6Crhxx: 01-08-2021 End: 98-44-9529mqvllmekqgVW JACQUES HOYFacility:E0Keoxi: 12-31-2020 End: 33-84-2200inamtgewwmJA IRINEO V WESTFacility:Q1Fxeoy: 12-19-2020 End: 73-24-2998xslrdsngfyUL JACQUES HOYFacility:V9Xszqh: 12-12-2020 End: 81-60-6381unatbrogatPG ZHEN FAZIOFacility:W6Ojxsx: 12-05-2020 End: 36-85-4285xoknsgttjiWF ZHEN FAZIOFacility:I0Kvpms: 12-03-2020 End: 30-01-1628yyruumrvbhIS ZHEN FAZIOFacility:V6Umjin: 19-54-5274vzzsriocxcFL ZHEN FAZIOFacility:H1 Procedures DateProcedureProcedure DetailPerforming ClinicianStart: 96-76-7829Iyosv test visual color cmprsn methsCorey Jacquie DO Work Phone: Start: 10-24-2024H/O: sectionS/P sectionCorey Jacquie DO Work Phone: Start: 80-63-2836Eaj routine ecg w/least 12 lds w/i&r Gerardo Dickey MD Work Phone: Start: 26-93-6325ME OB UMBILICAL ARTERY DOPPLERCorey Jacquie DO Work Phone: Start: 52-33-8271EI OB GROWTHCorey Jacquie DO Work Phone: Start: 42-95-0020AN OB BPP W NON-STRESSCorey Jacquie DO Work Phone: Start: 40-67-2716MJ OB BPP W NON-STRESSCorey Jacquie DO Work Phone: Start: 64-98-9967WQM UA (CLEAN/CATCH) CORRECTIONAL CASEWORK SPECIALIST/MICRO IF IND.Zhen Jacquie DO Work Phone: Start: 36-00-5068Rdieo dip stick/tablet rgnt non-auto w/o micrscpCorey Jacquie DO Work Phone: Start: 65-68-8855Ovzjs dip stick/tablet rgnt non-auto w/o micrscpCorey Jacquie DO Work Phone: Start: 31-39-6098Innul dip stick/tablet rgnt non-auto w/o micrscpCorey Jacquie DO Work Phone: Start: 91-39-3498PBE CBC WITH AUTO DIFFCorey Jacquie DO Work Phone: Start: 88-53-9412XTT CBC WITH AUTO DIFFCorey Jacquie DO Work Phone: Start: 30-86-4632GDD UA (CLEAN/CATCH) CORRECTIONAL CASEWORK SPECIALIST/MICRO IF IND.Zhen Jacquie DO Work Phone: Start: 87-46-4590Hybxb dip stick/tablet rgnt non-auto w/o micrscpAmy Nirmala PA Work Phone: Start: 41-37-9063Cjdgl dip stick/tablet rgnt non-auto w/o micrscpCorey Jacquie DO Work Phone: Start: 17-12-3010Zktdciq quantitative blood xcpt reagent stripGregg Fox MD Work Phone: Start: 94-58-9871LLG CBC WITH AUTO DIFFMadisyn KERNS Work Phone: Start: 46-34-5741Mvbnb dip stick/tablet rgnt non-auto w/o micrscpAmy Nirmala KERNS Work Phone: Start: 10-85-3818Qpfws dip stick/tablet rgnt non-auto w/o micrscpCorey Jacquie DO Work Phone: Start: 67-51-6448Yobuu dip stick/tablet rgnt non-auto w/o micrscpAmy Nirmala KERNS Work Phone: Start: 33-11-0985Fxonaxrsou of Products of Conception, Low Cervical, Open ApproachDR ZHEN FAZIOStart: 82-61-5033Ptkjqedwwmdl of Other Hormone into Peripheral Vein, Percutaneous ApproachDR ZHEN FAZIOH/O: sectionS/P sectionMadisyn KERNS Work Phone: Plan of Treatment DateCare ActivityDetailAuthorStart: 77-30-1125Atmxe BMI ScreeningAdult BMI ScreeningProMedica Health SystemStart: 73-48-6466Ngeelzn ScreeningTobacco ScreeningProMedica Health SystemStart: 06-00-9647Yjqmb BMI ScreeningAdult BMI ScreeningProMedica Health SystemStart: 94-20-0443Ocuumzs ScreeningTobacco ScreeningProMedica Health SystemStart: 34-11-8985Bosms BMI ScreeningAdult BMI ScreeningProMedica Health SystemStart: 69-14-1356Zpckjmv ScreeningTobacco ScreeningProMedica Health SystemStart: 06-02-0277Rkawtiy ScreeningTobacco ScreeningProMedica Health SystemStart: 13-68-4093Uylvk BMI ScreeningAdult BMI ScreeningProMedica Health SystemStart: 80-55-9178Jazgs BMI ScreeningAdult BMI ScreeningProMedica Health SystemStart: 04-30-2025 End: 70-57-4448Jdvciee encounter lwmdewnnr14/29/2025 9:00 AM EDT Office Visit [facility] [address] [place] [address] Gerardo Dickey MD [address] [place], [place] [address] [facility] CardiologyStart: 16-63-9812Cgbdknlgf vaccinationInfluenza VaccineMercy Health Tiffin Hospitalca [facility] SystemStart: 12-26-2024 End: 55-11-7005Woxttay encounter plbpdojeo01/27/2025 3:00 PM EDT Office Visit [facility] [address] [place] [address] Madisyn Silvestre PA [address] [place], [place] [address] [facility] OBStart: 10-24-2024 End: 53-55-3873kgvpankqsh08/25/2025 2:10 PM EDT Visit [facility] [address] [facility] [place] [address] Zhen Dhillon, [address] [place], [facility] OBStart: 09-14-2024 End: 85-57-8434Esrumueam to same day surgery cidlxg1509/14/2024 2:00 PM EST - 09/14/2024 3:00 PM EST Surgery [facility] - Labor [address] [place] [address] Irineo Torres MD [address] [facility], [address] [address] REPEAT [69815 (CPT )][facility] LaborComment on above: REPEAT [66478 (CPT )]Start: 09-14-2024 End: 32-03-6164Murgnhgp delivery attempted vbacC-SECTION REPEAT 09/14/2024 2:00 PM ESTTOLEDO LD ORStart: 91-63-9917Dcekhwbaaf hospital visit by physician 09/14/2024 2:00 PM EST Hospital Encounter [facility] [address] [place] [address] Irineo Torres MD [address] [facility], [address] [address] [facility]: 09-08-2024 End: 03-11-5121Ncldobn encounter /07/2025 10:30 AM EST Office Visit [facility] [address] [place] [address] Gerardo Dickey MD [address] [place] [address] [facility]iologyStart: 09-05-2024 End: 33-38-2776Ziupulz encounter pwdygszqv31/04/2025 10:40 AM EST Routine [facility] [address] [place] [address] Zhen Dhillon, DO [address] [place] [address] [facility]CP OBStart: 08-30-2024 End: 84-85-8138Uxmysbm encounter pdkptgxry63/29/2025 10:30 AM EST Office Visit [facility] [address] [place] [address] Sanam Cesar MD [address] [place] [address] [facility] CardiologyStart: 08-29-2024 End: 52-53-1962Hzzbhiw encounter procedureNOMS BCP OBComment on above:Arrived Start: 08-22-2024 End: 01-73-3713Gxxbkro encounter uatvixeqf16/21/2025 2:30 PM EST Routine [facility] [address] [facility] [place] [address] Zhen Dhillon, [facility] [place] [address] [facility]CP OBStart: 08-14-2024 End: 96-83-8553Cntqdia encounter boacwtkak91/13/2025 3:30 PM EST Routine [facility] [address] [place] [address] Zhen Dhillon, [facility] [place] [address] [facility]CP OBStart: 07-31-2024 End: 70-76-5793Ghgmjrk encounter procedureNOMS BCP OBComment on above:Arrived Start: 07-17-2024 End: 20-19-4312Njxumag encounter tjnpdyyrn18/16/2024 3:20 PM EST Routine [facility] [address] [facility] [place] [address] Zhen Dhillon, [facility] [place] [address] [facility]CP OBStart: 07-17-2024 End: 23-64-9811Qyziaormzgzh / ancillary services zredlpnegv84/16/2024 3:00 PM EST Ancillary Procedure [facility] [address] [facility] [place] [address] [phone] BCP OBStart: 07-17-2024 End: 19-08-3593BI biophysical profile w non stress testUS biophysical profile w non stress test Imaging Routine Third trimester Gestational diabetes mellitus (GDM) in third trimester, gestational diabetes method of control unspecified Hypertension, unspecified type ([facility]) Expected: 07/17/2024 (Approximate), Expires: 07/17/2025[facility] HealthcareComment on above: Expected: 07/17/2024 (Approximate), Expires: 07/17/2025Start: 07-17-2024 End: 11-07-7324PL for pregnancyUS OB SCAN FOR GROWTH Imaging Routine Third trimester Gestational diabetes mellitus(GDM) in third trimester, gestational diabetes method of control unspecified Hypertension, unspecified type ([facility]/HCC) Expected: 07/17/2024 (Approximate), Expires: 07/17/2025[facility] Work Phone: comment on above:Expected: 07/17/2024 (Approximate), Expires: 07/17/2025Start: 07-14-2024 End: 52-88-9967Vbmyigc encounter procedureMaternal Medicine Citra Start: 06-15-2024 End: 59-94-6660Cunytmk encounter cbxowzcfi38/14/2024 3:30 PM EST Routine [facility] [address] [facility] [place] [address] Madisyn Silvestre PA [address] [place] [address] [facility] BCP OBStart: 06-15-2024 End: 92-87-3574QOP panel - Blood by Automated countCBC Lab Routine Diabetes mellitus screening Expected: 06/15/2024 (Approximate), Expires: 06/15/2025[facility] Work Phone: comment on above:Expected: 06/15/2024 (Approximate), Expires: 06/15/2025Start: 06-15-2024 End: 01-23-9104Dasevbqirru of glucose 1 hour after glucose challenge for glucose tolerance testGlucose tolerance, 1 hour Lab Routine Diabetes mellitus screening Expected: 06/15/2024 (Approximate), Expires: 06/15/2025[facility] HospitalComment on above:Expected: 06/15/2024 (Approximate), Expires: 06/15/2025Start: 05-18-2024 End: 67-73-1109Rppktji encounter feznhwnls09/17/2024 11:40 AM EDT Office Visit [facility] [address] [facility] [place] [phone] Zhen Dhillon, DO [address] [place] [address] [facility] OBStart: 05-18-2024 End: 17-97-2269Hdskdtkafkqg / ancillary services bvczzehxwl44/17/2024 10:30 AM EDT Ancillary Procedure [facility] [address] [facility] [place] [address] [facility] OBStart: 04-20-2024 End: 25-73-9687Gdhaz fetoprotein, maternalAlpha fetoprotein, maternal Lab Routine Second trimester Expected: 04/20/2024 (Approximate), Expires: 04/20/2025[facility] Work Phone: comment on above:Expected: 04/20/2024 (Approximate), Expires: 04/20/2025Start: 04-20-2024 End: 33-16-4127BE for pregnancyUS OB ANATOMY SINGLE W US OB CERVICAL LENGTH Imaging Routine Screening, , for anatomic survey Expected: 04/20/2024 (Approximate), Expires: 04/20/2025NO[facility] HealthcareComment on above: Expected: 04/20/2024 (Approximate), Expires: 04/20/2025Start: 04-20-2024 End: 97-76-0311Nfnmuiv encounter procedureNOLAKESIDE HOSPITAL OBComment on above:Arrived Start: 07-63-7832Mfjmsmweq vaccinationInfluenza VaccineMercy Health Tiffin Hospitalca Health System Start: 03-22-2024 End: 02-15-7310Arfewva encounter jvychivrd39/21/2024 11:20 AM EDT Routine [facility] [address] [place] [address] Zhen Dhillon, DO [address] [place] [address] ArrivedNOLAKESIDE HOSPITAL OBComment on above: ArrivedStart: 74-94-0874Mwmbzjhcy for malignant neoplasm of cervixPap Smear [facility] SystemStart: 78-67-9356BSpY,Tdap and Td Vaccines (1 - Tdap) DTaP,Tdap and Td Vaccines (1 - Tdap)[facility] SystemStart: 2015 Adult BMI Follow Up PlanAdult BMI Follow Up PlanSelect Medical [facility] SystemStart: 42-35-3532Iqlro BMI ScreeningAdult BMI ScreeningSelect Medical [facility] SystemStart: 98-03-3112Bgmrsekniu ScreeningDepression ScreeningSelect Medical [facility] SystemStart: 32-58-5343Rkhvrkj ScreeningTobacco ScreeningACMC Healthcare System GlenbeighAldosterone [Mass/volume] in Serum or [facility] for RehabilitationCBC W Auto Differential panel - BloodCBC and differential Lab Routine Abnormal CBC Ordered: 03/22/2024[facility] Work Phone: comment on above:Ordered: 03/22/2024efuroxime free [Mass/volume] in Serum or [facility] for RehabilitationComprehensive metabolic 2000 panel - Serum or [facility] Hemoglobin A1c/Hemoglobin.total in BloodHemoglobin A1c Lab Routine Gestational diabetes mellitus (GDM), delivered, current hospitalization Ordered: 10/24/2024 [facility] Work Phone: comment on above:Ordered: 10/24/2024Patient Education - The Second Month High Blood Pressure EDOhio[facility]tr Work Phone: Patient referralOhiohealth Shelby Hospital Ctr Work Phone: Renin [Enzymatic activity/volume] in PlasmaFlower HospitalRheumatoid factor [Units/volume] in Serum or Plasma [facility] HospitalUS Heart TransthoracicAdventHealth Daytona Beach Immunizations Immunization DateImmunizationNotesCare IyuboyheRjwgoeoa18-34-1776sokwhuea calmette-nathaniel vaccineFely Nieves DO Work Phone: [facility]08-11-2003diphtheria, tetanus toxoids and acellular pertussis vaccine, unspecified formulationFely Nieves DO Work Phone: [facility]08-11-2003measles, mumps and rubella virus vaccineKaitlyn Ezequiel DO Work Phone: [phone]-[facility]08-11-2003poliovirus vaccine, inactivatedKaitlyn Ezequiel DO Work Phone: [phone] [place], [place] [address]-26-1999diphtheria, tetanus toxoids and acellular pertussis vaccine, unspecified formulationKaitlyn Ezequiel DO Work Phone: [phone] [place], [place] [address]-26-1999haemophilus influenzae type b vaccine, conjugate unspecified formulationKaitlyn Ezequiel DO Work Phone: [phone] [place], [place] [address]-26-1999poliovirus vaccine, inactivatedKaitlyn Ezequiel DO Work Phone: [phone] [place], [place] [address]-17-1998measles, mumps and rubella virus vaccineKaitlyn Ezequiel DO Work Phone: [phone] [place], [place] [address]-20-1998diphtheria, tetanus toxoids and acellular pertussis vaccine, unspecified formulationKaitlyn Ezequiel DO Work Phone: [phone] [place], [place] 5031002-20-1998haemophilus influenzae type b conjugate and Hepatitis B vaccineKaitlyn Ezequiel DO Work Phone: [phone] [place], [place] [address]31[address]-22-1997diphtheria, tetanus toxoids and acellular pertussis vaccine, unspecified formulationKaitlyn Ezequiel DO Work Phone: [phone] [place], [place] [address]-22-1997poliovirus vaccine, inactivatedKaitlyn Ezequiel DO Work Phone: [phone] [place], [place] [address]31[address]-24-1997diphtheria, tetanus toxoids and acellular pertussis vaccine, unspecified formulationKaitlyn Ezequiel DO Work Phone: [phone] [place], [place] [address]31[address]-24-1997haemophilus influenzae type b conjugate and Hepatitis B vaccineKaitlyn Ezequiel DO Work Phone: [phone]poliovirus vaccine, inactivatedKaitlyn Ezequiel DO Work Phone: [facility]1997hepatitis B vaccine, pediatric or pediatric/adolescent dosageKaitlyn Ezequiel DO Work Phone: [facility] Payers DatePayer CategoryPayerPolicy ID2024Medicaid [id number] Private Health [id number] Health [id number] 2023Medicaid [facility] MEDICAID [id number] [id number] .1.694857.3.57[id number] .1.504028.3.579.2.67303-83-8427Qhkbcxt6060024 .1.458498.3.579.[id number] 2.16.840.1.971469.3.579.2.84684-43-2663Krjkrgf4560475 2.16.840.1.221551.3.579.2.84243-50-9174Ozxnpjd8049599 2.16.840.1.759360.3.579.2.84667-04-7514Fndulye7969065 2.16.840.1.865171.3.579.2.34243-44-8066Nwsqdcx8574171 2.16.840.1.327215.3.579.2.85385-66-8802Ycfnukb0498531 2.16840.1.646074.3.579.2.77758-90-8635Hwrqbaj1535684 2.16840.1.211369.3.579.2.75989-87-7146Wojwgjc9977141 2.16840.1.494547.3.579.2.48482-42-3373Bswfzgr1652213 2.16840.1.683457.3.579.2.97051-04-8894Pinyykt0464497 2.16.840.1.422299.3.579.2.94643-23-5591Gbopxeq6672976 2.16840.1.165432.3.579.2.50364-73-4971Imqpynw5818181 2.16840.1.233094.3.579.2.22657-39-3566Qbtetst0894612 2.16840.1.536280.3.579.2.34529-46-6187Tlnmonp8271553 2.16.840.1.511952.3.579.2.04474-78-5794Wfhtydr3601094 2.16840.1.144251.3.579.2.52645-51-5407Muumjkx452198230 2.16.840.1.682397.3.579.2.153588-68-8870Rvatjvk709159958 2.16840.1.941491.3.579.2.371199-86-9709Jtaziux956816597 2.16.840.1.149976.3.579.2.772492-23-9272Ehxqqme66387110 2.16840.1.333434.3.579.2.255990-20-0364Tncyymw020858713 2.16840.1.785477.3.579.2.263774-61-7320Gvtcixw031608024 2.840.1.745010.3.579.2.995948-81-4076Eluiwyz506150986 2.840.1.648988.3.579.2.460434-62-7545Mfklzeb044014399 2.840.1.454070.3.579.2.460548-78-7298Jlfhvfc875263618 2.840.1.394696.3.579.2.926739-20-1225Uumofso990750393 2.840.1.186189.3.579.2.834008-13-6395Gvbkpwl6158883 2.840.1.589446.3.579.2.551709-19-8338Vptpbgv6875463 2.840.1.760395.3.579.2.830934-62-1845Spgclms2856265 2.16840.1.960099.3.579.2.752094-93-7901Lwoqnib4639738 2.840.1.283799.3.579.2.056015-74-9142Trzvajs4604529 2.16.840.1.171225.3.579.2.703980-53-0507Itoqavd0432744 2.16.840.1.004917.3.579.2.809959-87-0741Hmvognt5955890 2.16.840.1.445849.3.579.2.393835-80-4440Htavqbh9803521 2.16.0.1.477895.3.579.2.446823-51-2535Otewbpy2684739 2.16.840.1.834321.3.579.2.613904-87-5499Cxvrzfq1142305 2.16.840.1.219191.3.579.2.863359-65-7989Tcmgfjq9971511 2.0.1.860864.3.579.2.537882-61-1875Gnhnmhf9648965 2.0.1.920993.3.579.2.228547-64-5657Burjuhe5782002 2.16.840.1.282813.3.579.2.129194-32-0942Lnozzwz1558104 2.0.1.231294.3.579.2.861279-19-8524Okmeytx0335849 2.0.1.028836.3.579.2.368208-97-3299Fexclib76547420431956-60-4584Lpnsdpu 7782831487221-38-9471NzxaorwYL7994042Dqhtphc07890859 2.0.1.245683.3.579.2.531 Social History DateTypeDetailFacilityStart: 37-31-9312khnxqmhgQhkshacieFlower Hospital Start: 50-56-7197Hnrwgbq smoking status NHISNever smoked tobacco (finding) [facility] Hospitaltart: 63-66-7629Hph Assigned At BirthFemale Flower HospitalTobacco smoking status NHISTobacco smoking consumption unknownWashington County Memorial HospitalStart: 28-35-9907Pur assigned at birthNot on [facility] HospitalStart: 08-23-2020 End: 47-54-4463Ngohev identityNot on [facility] HospitalStart: 07-14-2024 End: 06-78-0627Yswyzdq smoking status NHISEx-smokerACMC Healthcare System [facility]igh History of tobacco useCurrent smokerACMC Healthcare System GlenbeighHistory of tobacco useCigarette SmokerPsychiatric hospitaltart: 10-07-2020 End: 77-95-7311Mxysjcv use and exposureSmokeless tobacco non-userPsychiatric hospitaltart: 08-15-2024 End: 12-09-2292Tuupjumkn beverage intakeEx-drinker (finding)Psychiatric hospitaltart: 08-23-2020 End: 44-44-8060Xzjvpfr of Social functionACMC Healthcare System GlenbeighChildcareUnknown Psychiatric hospitaltart: 10-07-2020 End: 97-46-2984Mxnqyei Commentquit 3 years agoPsychiatric hospitaltart: 76-26-2673WonJuxxsu (finding)[facility] Medical Equipment Procedure CodeEquipment CodeEquipment Original TextEquipment IdentifierDates [id number]: 07-17-2024 End: each by In Vitro route Daily Use to check FSBS four times daily [id number]: 07-17-2024 End: 60-55-3963Oqqwup 1 each under the skin [id number]: 08-23-2024 End: 97-21-6440Vmsptf 1 each under the skin See administration instructions Use four times daily with insulin pen.[id number]: 08-22-2024 End: 08-23-2024 Clinical Notes 02-05-2021 to 04-26-2025 Note Date & LjzzBqdbNvlysjhz00-81-4955 Miscellaneous Notes* Telephone Encounter - Angela Hodgson - 04/26/2025 8:57 AM EDT LMOM for pt to return call to [facility] regarding her upcoming appt on 04/30 and her ins being OON. documented in this encounterACMC Healthcare System Glenbeigh09-25-2025 Telephone encounter Note* Telephone Encounter - Angela Rema - 04/26/2025 8:57 AM EDT LMOM for pt to return call to [facility] regarding her upcoming appt on 04/30 and her ins being OON. [facility]03-25-2025 History of Present illness Narrative* Judie Gutierrez LPN - 10/24/2024 2:10 PM EDT Reason for Appointment: Patient ID: Samantha Benjamin [...] Procedure Laterality Date SECTION, LOW [facility]SVER[facility] RE[facility] OF SYSTEMS Review of Systems: Review [...] nursing note reviewed. Exam conducted with a policy change clerks supervisor present. Vitals: Estimated body mass index is [...] of: Zhen Dhillon DO documented in this encounterWashington County Memorial HospitalThiqqdexqj99-63-3958 History of Present illness Narrative* LUIS F Tarango - 09/26/2024 2:40 PM EST Reason for Appointment: Patient ID: Samantha Benjamin is a 29 y.o. female who presents for Post-op Visit Patient presents today for Post Follow Up appointment.and post op csection MEDICATIONS Current Outpatient Medications Medication Instructions Alcohol Swabs (Alcohol Prep Pad) 70 % pads 1 Pad, Topical, Daily, Use four times daily to check FSBS. aspirin 81 mg, Daily Blood Glucose Monitoring Suppl (SOLEM Electronique Glucometer) w/Device kit 1 kit, Does not [...] of: LUIS F Tarango documented in this encounterWashington County Memorial HospitalEhlnrjuzko35-20-6791 Miscellaneous Notes* Telephone Encounter - Terra Lundberg MD - 09/08/2024 4:48 PM EST The patient was evaluated by Cardiology outpatient [...] She is scheduled for a section at [facility] 09/14/[address] Torres was notified who will be the attending senior litigation paralegal We will also reach out to the patient primary OB for an update TERRA LUNDBERG MD documented in this encounterACMC Healthcare System Glenbeigh02-07-2025 Telephone encounter Note* Telephone Encounter - Terra Lundberg MD - 09/08/2024 4:48 PM EST The patient was evaluated by Cardiology outpatient [...] She is scheduled for a section at [facility] 09/14/[address] 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 Images not available. [...] rhythm without any evidence of ectopy Recommend evaluationProcedure Info: Echocardiography Report. Image quality is good. Procedures: Echo Doppler Color Flow echo echo Doppler study Situs and Relations: There is atrial situs solitus, atrioventricular concordance (D-looped ventricles) normally related great arteries (S,D,S). There is levocardia. The heart is located in the left chest. The cardiac apex points to the left. Systemic Veins:There are normal systemic venous connections, with the superior and inferior Vena Cava returning tothe right atrium. Right Atrium: The right atrium has normal size and appearance. Tricuspid Valve: The tricuspid valve appears normal. Tricuspid valve annulus measures 11.4 mm; Z-score 0.06 Right Ventricle: The right ventricle has a normal size, wall thickness, and systolic function. Pulmonary valveand Artery The pulmonary valve, main and branch pulmonary arteries are normal. Pulmonary valve annulus measures 7.88 mm ; Z-score of 1.22. Left pulmonary artery measures 3.79 mm; Z-score -1.91. Rightpulmonary artery measures 3.54 mm; Z-score 1.66 Septal [...] of 134 beats per minute, normal mechanical AL interval of 114 milliseconds Other: No pericardial effusion Miscellaneous: Small septal defects, minor valve abnormalities and post- development of coarctation may not be evident during cardiac examination. Summary Normal intracardiacanatomy and function Normal atrioventricular coupling with normal [...] ( GUMMY ORAL) IMPRESSIONS/PLAN 1. Pulmonary hypertension ([facility]) - [facility] - [place] - POCT EKG 2. 35 weeks gestation of - [facility] [place] 3. Chronic hypertension affecting 4. Tachycardia 1. [...] cardiology standpoint We discussed that over the assisted she should have continued evaluation of her blood pressure, etcetera for risk factor modification. I would anticipate a repeat echo in 3-5 years to assess left ventricular thickness, etcetera TODAYS ORDERS Orders Placed This Encounter Procedures POCT EKG FOLLOW UP Return for 6-9 months. PCP: JACQUES MCCARTHY MD Referring Physician: Terra Lundberg MD [address] [facility], [address] [place] [id number] documented in this encounterACMC Healthcare System Glenbeigh02-04-2025 Miscellaneous Notes* Telephone Encounter - Terra Lundberg MD - 09/05/2024 4:42 PM EST I called Dr Dhillon and reviewed with him recommendations for delivery at a tertiary care center as well as the necessity for cardiology evaluation He agrees with the plan Due to advanced gestational age the patient is to continue with the care with him until wecan arrange for transfer of care TERRA LUNDBERG MD documented in this encounterACMC Healthcare System Glenbeigh02-04-2025 Telephone encounter Note* Telephone Encounter - Terra Lundberg MD - 09/05/2024 4:42 PM EST I called Dr Dhillon and reviewed with him recommendations for delivery at a tertiary care center as well as the necessity for cardiology evaluation He agrees with the plan Due to advanced gestational age the patient is to continue with the care with him until wecan arrange for transfer of care TERRA LUNDBERG MD [facility]02-04-2025 Miscellaneous Notes* Telephone Encounter - Terra Lundberg MD - 09/05/2024 3:38 PM EST Called patient with report from her echocardiogram [...] hypertension TERRA LUNDBERG MD documented in this encounterACMC Healthcare System Glen[facility]igh02-04-2025 Telephone encounter Note* Telephone Encounter - Terra Lundberg MD - 09/05/2024 3:38 PM EST Called patient with report from her echocardiogram [...] of the pulmonary hypertension TERRA LUNDBERG MD [facility]02-04-2025 History of Present illness Narrative* Sanam Cesar MD - 09/05/2024 10:30 AM EST [address] [facility] [address] September 05, 2024 Patient: Samantha Benjamin Date [...] is scheduled for Section on 09/14/24 at [facility]. Ms Samantha Benjamin is accompanied by [...] work of breathing. Positive for shortness of breathwith activity. Patient states she has shortness of [...] -predisposing heart condition such as HCM, LQTS, Brugadasyndrome. Social History: Social History Socioeconomic History Marital [...] with normal heart rate with normal mechanical AL interval. I did not appreciate any ectopy.The [...] septal defect. I discussed with Ms. Samantha Benajmin and her mother the findings and all [...] 1st weeks of life. I also explained thatwe do monitor all PDAs even if they are small and are not causing any congestive heart failure to ensure that if and when it closes, coarctation of the aorta does not develop. Based on today's echocardiogram I do not see any contraindication for delivery to occur in [facility]. Since small septal defects, minor valve [...] echocardi[facility] since I am responsible for reading all [...] reviewing any outside history/data, taking a history, pe rforming an exam/evaluation, counseling and educating the patient/family [...] queries or concerns. Sincerely, Sanam Cesar M.D. Trommel Tender [facility] This note is dictated with the use of M*Modal.Please note that this dictation was completed with computer voice recognition software. Quite often unanticipated grammatical, syntax, homophones, and other interpretive errors are inadvertently transcribed by the computer software. Please disregard these errors. Please excuse any errors that have escaped final proofreading. documented in this encounterACMC Healthcare System [facility]01-28-[facility] History of Present illness Narrative* Judiechristal Gutierrez, ASIA - 08/29/2024 2:20 PM EST Reason for Appointment: Patient ID: Samantha Benjamin [...] nursing note reviewed. Exam conducted with a policy change clerks supervisor present. Vitals: Estimated body mass index is [...] of: Zhen Dhillon DO documented in this encounterWashington County Memorial [id number] History of Present illness Narrative* Judie Gutierrez LPN - 08/22/2024 2:30 PM EST Reason for Appointment: Patient ID: Samantha Benjamin [...] nursing note reviewed. Exam conducted with a policy change clerks supervisor present. Vitals: Estimated body mass index is [...] times a day. Pt has appt at [facility] on 08/30/24. Reviewed glucose log [...] of: Zhen Dhillon DO documented in this encounterWashington County Memorial [id number] History of Present illness Narrative* Judie Stearns RDMS - 08/16/2024 1:35 PM EST Called patient 08/15/24 and 08/16/24 to inform patient of date and time for the Pediatric Cardiology Consultation. L/M for patient to return my call. documented in this encounterACMC Healthcare System Glenbeigh01-14-2025 History of Present illness Narrative* Terra Lundberg MD - 08/15/2024 9:15 AM EST Video Visit via Real-time Synchronous Audiovisual Provider Location: [facility]- MEDICINE AT [address] [address] Patient Location: Other [place] Office Patient Location Apprenticeship Consultant: None Video Visit Consent Statement: I discussed risks, benefits, and alternatives of a real-time synchronous audiovisual consultation with the patient (and any accompanying persons) including the risks that the patient's personal health details and medical records will be discussed over real-time, synchronous, interactive video/audio/telecommunication technology, the visit will not be recorded withoutthe express consent of both the provider and the patient, and that there are some limitations compared to [id number] evaluations. We elected to proceed. REASON FOR [...] outflow tracts on ultrasound BMI 40.0-44.9, adult ([facility]) Past Medical History: Diagnosis Date Anxiety [...] evening., Disp: , [place]fl[place] medical [place] [facility] [place] once., Disp: , [...] and the other consultants, we search on [employer] and all the available care everywhere epic I did review all the imaging studies of the patient available on EMR, ordered by the primary care physician and the other apartment leasing consultant HABITS: Patient activity no restrictions, diet [...] insulin resistance and hyperglycemia. This is a malfunctionor dysfunction of glucose sensors in the liver [...] the patient's insulin is not sufficient to achievea normal glycemic state. I informed the patient [...] the strategy for improving and outcome should mao achieve euglycemic state. We explained to the [...] more likely to fail compared to insulin. dining service inspector data on children whose mothers took oral hypoglycemic agents while is limited. Medication is typically initiated when >20-30% of the blood glucose values in one week are outof range. Glucose goals in : Fasting 60 [...] Chronic hypertension affecting 4. BMI 40.0-44.9, adult ([facility]) Denies signs and symptoms of preeclampsia and reports stable blood pressure. Precautions given 5. arrhythmia affecting , antepartum premature atrial contractions (PACs) are typically benign, but some cases can be secondary tostructural heart disease, and rare cases with frequent PACs can progress to tachyarrhythmia which can compromise well-being. Progression to tachyarrhythmia is more common in cases of frequent PACs, or PACs in a bigeminal or trigeminal pattern. PACs can be intermittent with days or weekswithout arrhythmia with later recurrence, but PACs typically [...] potential etiologies and complications of polyhydramnios. The mostcommon cause is idiopathic with no known etiology. [...] 15-30% of cases, and affected patients are signif icantly more likely to undergo delivery. Progression of polyhydramnios is suggestive of anunderlying structural or genetic etiology. Reports associating idiopathic [...] stillbirth. surveillance recommended and weekly fluid checks aswell as evaluation of the chorion amnion separation. The patient desires this to be done through primary OB office due to insurance issues. The patient tells me that she has been prescribed nifedipine for contractions. ACOG guidelines were reviewed with the patient. Tocolysis is recommended only for patients receiving corticosteroids to get them through the steroid window. Side effects of the nifedipine were discussed. Long- term use of tocolysis has not been shown to decrease rates of delivery. She desires to further discuss the nifedipine with her primary OB RECOMMENDATION: - Please see original Maternal- medicine consultation note - continue current dose of labetalol - monitor for signs and symptoms of labor - if you would like [facility] to start managing the patient diabetes [...] patient is in complete care of her bonderizer. Patient does have ultrasound appointment scheduled with us. Thank you for allowing me to participate in Samantha Benjamin . If there any questions pleasedo not hesitate to contact us. Sincerely, Terra Lundberg MD, FACOG (she/hers) Maternal- Medicine [facility] [address] [place] [address] documented in this encounterBrightlook HospitaluBeam [id number] History of Present illness Narrative* Angela Butt, ASIA - 08/14/2024 3:30 PM EST Reason for Appointment: Patient ID: Samantha Benjamin [...] nursing note reviewed. Exam conducted with a policy change clerks supervisor present. Vitals: Estimated body mass index is [...] bring her FSBS log for review. Patient toreturn to clinic in 1 week. Documented by Angela Butt LPN on behalf of: Zhen Dhillon DO documented in this encounterWashington County Memorial [id number] History of Present illness Narrative* LUIS F Tarango - 07/31/2024 3:10 PM EST Reason for Appointment: Patient ID: Samantha Benjamin is a 29 y.o. female who presents for Routine Visit Patient presents today for Return OB appointment. MEDICATIONS Current Outpatient Medications Medication Instructions Alcohol Swabs (Alcohol Prep Pad) 70 % pads 1 Pad, Topical, Daily, Use four times daily to check FSBS. Blood Glucose Monitoring Suppl (Cloudwise-vivio Glucometer) w/Device kit 1 kit, Does not [...] of: LUIS F Tarango documented in this encounterWashington County Memorial [id number] History of Present illness Narrative* Angela Daquan, ARCHITECTURAL DRAFTSMAN - 07/17/2024 3:20 PM EST Reason for Appointment: Patient ID: Samantha Benjamin [...] of: Zhen Dhillon DO documented in this encounterWashington County Memorial HospitalFvkamqujor39-03-3035 History of Present illness Narrative* Betzaida Nails RN - 07/14/2024 11:00 AM EST Headache/epigastric pain/blurry vision/swelling? no Cramping/contractions? no Abnormal vaginal discharge? no Spotting/vaginal bleeding? no Loss or gush of fluid like your water may have broken? no Do you have cats at home? no Do you change the litter box (reason: risk of toxoplasmosis)? Genetic testing done this here or other office? yes Have you been seen here at [facility] in a previous ? no Recent ER visits or hospitalizations? no Bring blood sugar log or meter with you today? (Please bring them with you for every visit at [facility]) no Flu vaccine (Jun-September)? no Any concerns that you would like me to mention to the provider today? no * Gregg Fox MD - 07/14/2024 11:00 AM EST REASON FOR CONSULTATION: Maternal Essential hypertension. HISTORY [...] outflow tracts on ultrasound BMI 40.0-44.9, adult ([facility]) Past Medical History: Diagnosis Date Anxiety [...] total) by mouth in the morning., Disp: ,Rfl: ondansetron (ZOFRAN) 4 mg tablet, Take 4 [...] and the other consultants, we search on [employer] and all the available care everywhere epic I did review all the imaging studies of the patient available on EMR, ordered by the primary care physician and the other apartment leasing consultant HABITS: Patient activity no restrictions, diet [...] that unlike other hypertensive disorders in essential hypertensionneeds to be treated with a goal of [...] her 3 hour glucose tolerance test, refer [facility] for diabetes management.. 8. Patient came more than 1 hour late for her ultrasound appointment and therefore has been rescheduled at our [facility] site. DISPOSITION: At this point the patient is in complete care of her bonderizer. Patient does have ultrasound appointment scheduled with us. Thank you for allowing me to participate in Samantha Benjamin . If there any questions pleasedo not hesitate to contact us. Sincerely, GREGG FOX MD documented in this encounterACMC Healthcare System Glenbeigh11-14-2024 History of Present illness Narrative* LUIS F Tarango - 06/15/2024 3:30 PM EST Reason for Appointment: Patient ID: Samantha Benjamin [...] of: LUIS F Tarango documented in this encounterWashington County Memorial [id number] History of Present illness Narrative* Angela Butt LPN - 05/18/2024 11:40 AM EDT Reason for Appointment: Patient ID: Samantha Benjamin [...] nursing note reviewed. Exam conducted with a policy change clerks supervisor present. Vitals: Estimated body mass index is [...] in 4 weeks for routine OB annual ap pointment. Patients BP's are doing well at the moment on current regimen. Patient was given printout of MSAFP orders to have drawn at [facility] in [place]. Documented by Angela Butt LPN on behalf of: Zhen Dhillon DO documented in this encounterWashington County Memorial [id number] History of Present illness Narrative* LUIS F Tarango - 04/20/2024 8:30 AM EDT Reason for Appointment: Patient ID: Samantha Benjamin [...] of: LUIS F Tarango documented in this encounterWashington County Memorial HospitalDpiaigtafe24-81-3513 History of Present illness Narrative* Judie Brenda, ASIA - 03/22/2024 11:20 AM EDT Reason for Appointment: Patient ID: Samantha Benjamin [...] nursing note reviewed. Exam conducted with a policy change clerks supervisor present. Vitals: Estimated body mass index is [...] or undercooked meat, and stay away from [facility]. Patient has been consulted regarding any further do's and don'tsof . Patient voiced understanding and all questions and concerns were answered. Scheduled c- section 09/14/24. No orders of the defined types were placed in this encounter. Follow Up: Patient is to return in 4 weeks for routine OB appointment. Documented by Judie Gutierrez LPN on behalf of: Zhen Dhillon DO documented in this encounterWashington County Memorial HospitalLqngcapmzx67-65-2743 NoteOPERATIVE NOTE OPERATION DATE: 02-06-21 ANESTHETIC:Spinal with Duramorph. PUBLIC HEALTH CLINICAL NURSE SPECIALIST:ELVIA Prajapati PREOPERATIVE DIAGNOSIS: 1. Intrauterine at 37 [...] to the Recovery Room in stable condition. IFC Signed and Approved by: DR ZHEN DHILLON . 02/11/2021 11:15:00[facility]07-07-2021 NoteDISCHARGE SUMMARY Discharge Date: 02-09-21 PRIMARY DIAGNOSIS: 1. [...] abdominal pain unrelieved with narcotics. [facility] Signed and Approved by: DR ZHEN DHILLON . 02/25/2021 23:13:00[facility] HospitalEvaluation noteNo assessment information availableOhiohealth Shelby Hospital Ctr Work Phone: Evaluation note* Diagnosis 20 weeks gestation of Second trimester state, incidental documented in this encounter [facility] HealthcareEvaluation note* Diagnosis Second trimester state, incidental 24 weeks gestation of Diabetes mellitus screening Screening for diabetes mellitus Elevated blood pressure affecting in first trimester, antepartum High blood pressure affecting in first trimester, antepartum Heartburn during in second trimester documented in this encounter [facility] HealthcareEvaluation note* Diagnosis Third trimester state, incidental 28 weeks gestation of Gestational diabetes mellitus (GDM) in third trimester, gestational diabetes method of control unspecified Hypertension, unspecified type ([facility]) Gestational diabetes mellitus (GDM), antepartum, gestational [...] weeks gestation of documented in this encounter [facility] HealthcareEvaluation note* Diagnosis 32 weeks gestation of Third trimester state, incidental documented in this encounter [facility] HealthcareEvaluation note* Diagnosis 32 weeks gestation of - Primary Gestational diabetes mellitus (GDM) in third trimester, gestational diabetes method of control unspecified Chronic hypertension affecting BMI 40.0-44.9, adult ([facility]) arrhythmia affecting , antepartum Abnormality in heart rate/rhythm, antepartum condition or complication Polyhydramnios affecting Separation of chorion and amnion membranes, antepartum documented in this encounter [facility]* Diagnosis Abnormal ultrasonic finding on screening of mother, antepartum- Primary documented in this encounter [facility]* Diagnosis Third trimester state, incidental 34 weeks gestation of Insulin controlled gestational diabetes mellitus (GDM) during , antepartum documented in this encounter [facility] HealthcareEvaluation note* Diagnosis 34 weeks gestation of Third trimester state, incidental documented in this encounter [facility] HealthcareEvaluation note* Diagnosis Pulmonary hypertension ([facility])- Primary Other chronic pulmonary heart diseases 35 weeks gestation of documented in this encounter [facility] note* Diagnosis Pulmonary hypertension ([facility])- Primary Other chronic pulmonary heart diseases 35 weeks gestation of Chronic hypertension affecting Tachycardia Unspecified tachycardia documented in this encounter [facility]* Diagnosis arrhythmia affecting , antepartum- Primary Abnormality in heart rate/rhythm, antepartum condition or complication Abnormal ultrasonic finding on screening of mother, antepartum Anomaly of heart of fetus affecting , antepartum, single or unspecified fetus documented in this encounter [facility]* Diagnosis Gestational diabetes mellitus (GDM), antepartum, gestational diabetes method of control unspecified- Primary Chronic hypertension affecting documented in this encounter [facility]* Diagnosis Encounter for visit S/P section Other postprocedural status documented in this encounter [facility]Evaluation note* Diagnosis 6 weeks follow-up S/P section Other postprocedural status Gestational diabetes mellitus (GDM), delivered, current hospitalization documented in this encounter [facility] HealthcareEvaluation note* Diagnosis Onset Date Resolution Status Admit Date Chronic pain acuteOctober 2024 9:01amEczema of both external earsacuteOctober 2024 9:01amFamily history of lupusacuteOctober 2024 9:01amGeneralized anxiety disorderacuteOctober 2024 9:01amHypertensionacuteOctober 2024 9:01amPulmonary hypertensionacuteOctcasey [facility] hospital 2024 9:01am [facility] Work Phone: Instructions* Attachments The following attachments cannot be sent through Care Everywhere. * Preeclampsia ([place]) * labor ([place]) documented in this encounterProWalker Baptist Medical Center Health SystemInstructionsNot on file documented in this encounterProWalker Baptist Medical Center Health SystemInstructionsNot on file documented in this encounterProMeditn Health SystemInstructionsNot on file documented in this encounterProMeditn Health SystemInstructionsNot on file documented in this encounterProMedica Health SystemInstructionsNot on file documented in this encounterProMedica Health SystemInstructionsNot on file documented in this encounterProMedica Health SystemInstructionsNot on file documented in this encounterProWalker Baptist [facility] Health SystemInstructionsNot on file documented in this encounterProWalker Baptist Medical [facility] Health SystemInstructionsNot on file documented in this encounterTwin City Hospital Health SystemReason for referral (narrative)No reason for referral information availableAdena Health System Work Phone: Summary Purpose Family History Relationship Condition Age at Onset Recorded Date/T geena mother Lupus Unknown FibromyalgiaUnknownRheumatoid arthritisUnknownfatherDiabetes mellitusUnknown HypertensionUnknown Advance Directives Advance Directive Response Recorded Date/ Time Advance Directives No January 30 3:45pm Date ActivatedDate InactivatedComments09/14/2024 9:11 AM09/16/2024 4:09 PM Chief Complaint and Reason for [...] section and content) DATE CREATED AUTHOR 10/15/2021 [facility] DATE CREATED AUTHOR AUTHOR'S ORGANIZ ATION 02/19/2024 [facility] DATE CREATED AUTHOR AUTHOR'S ORGANIZ ATION 09/10/2024 [facility] DATE CREATED AUTHOR AUTHOR'S ORGANIZ ATION 09/13/2024 [facility] DATE CREATED AUTHOR AUTHOR'S ORGANIZ ATION 09/16/2024 [facility] DATE CREATED AUTHOR AUTHOR'S ORGANIZ ATION 10/25/2024 [facility] EPIC Care Teams (unrecognized sec tion and content) Team Status: Active Member Role Status Dates Jacques Mccarthy MD Primary Care Provider Active Team Status: Inactive Member Role Status Dates Jacques Mccarthy MD Primary Care Provider Active Start: January 31, 2024 End: January 30Olga Mcfarlane ProviderActiveStart: January 31, 2024 End: January 31, 2024Team MemberRelationshipSpecialtyStart DateEnd Date Jacques Mccarthy MD [address] [place] [address] PCP - GeneralFamily Medicine02/08/24Team MemberRelationshipSpecialtyStart DateEnd Date Jacques Mccarthy MD [address] [place] [address] PCP - GeneralFamily Medicine02/08/24Team MemberRelationshipSpecialtyStart DateEnd Date Jacques Mccarthy MD [address] [place] [address] PCP - GeneralFamily Medicine02/08/24Team MemberRelationshipSpecialtyStart DateEnd Date Jacques Mccrathy MD [address] [place] [facility] [address] PCP - GeneralFamily Medicine02/08/24Team MemberRelationshipSpecialtyStart DateEnd Date Jacques Mccarthy MD [address] [place] [facility] [address] PCP - GeneralFamily Medicine02/08/24Team MemberRelationshipSpecialtyStart DateEnd Date Jacques Mccarthy MD [address] [place] [place] [address] PCP - GeneralFamily Medicine02/08/24Team MemberRelationshipSpecialtyStart DateEnd Date Jacques Mccarthy MD [address] [place] [facility] [address] PCP - GeneralFamily Medicine02/08/24Team MemberRelationshipSpecialtyStart DateEnd Date Jacques Mccarthy MD [address] [place] [facility] [address] PCP - GeneralFamily Medicine02/08/24Team MemberRelationshipSpecialtyStart DateEnd Date Jacques Mccarthy MD [address] [place] [place] [address] PCP - GeneralFamily Medicine02/08/24Team MemberRelationshipSpecialtyStart DateEnd Date Jacques Mccarthy MD [address] [place] [facility] [address] PCP - GeneralFamily Medicine02/08/24Team MemberRelationshipSpecialtyStart DateEnd Date Jacques Mccarthy MD [address] [place] [facility] [address] PCP - GeneralFamily Medicine02/08/24Team MemberRelationshipSpecialtyStart DateEnd Date Jacques Mccarthy MD [address] [place] [facility] [address] PCP - GeneralFamily Medicine02/08/24Team MemberRelationshipSpecialtyStart DateEnd Date Jacques Mccarthy MD [address] [place] [facility] [address] PCP - GeneralFamily Medicine02/08/24Team MemberRelationshipSpecialtyStart DateEnd Date Jacques Mccarthy MD PCP - GeneralFamily Medicine10/07/20Team MemberRelationshipSpecialtyStart DateEnd Date Jacques Mccarthy MD PCP - GeneralFamily Medicine10/07/20Team MemberRelationshipSpecialtyStart DateEnd Date Jacques Mccarthy MD PCP - GeneralFamily Medicine10/07/20Team MemberRelationshipSpecialtyStart DateEnd Date Jacques Mccarthy MD [address] [place] [facility] [address] PCP - GeneralFamily Medicine02/08/24Team MemberRelationshipSpecialtyStart DateEnd Date Jacques Mccarthy MD [address] [place] [facility] [address] PCP - GeneralFamily Medicine02/08/24Team MemberRelationshipSpecialtyStart DateEnd Date Jacques Mccarthy MD [address] [place] [facility] [address] PCP - GeneralFamily Medicine02/08/24Team MemberRelationshipSpecialtyStart DateEnd Date Jacques Mccarthy MD PCP - GeneralFamily Medicine10/07/20Team MemberRelationshipSpecialtyStart DateEnd Date Jacques Mccarthy MD PCP - GeneralFamily Medicine10/07/20Team MemberRelationshipSpecialtyStart DateEnd Date Jacques Mccarthy MD PCP - GeneralFamily Medicine10/07/20Team MemberRelationshipSpecialtyStart DateEnd Date Jacques Mccarthy MD [address] [place] [facility] [address] PCP - GeneralFamily Medicine02/08/24Team MemberRelationshipSpecialtyStart DateEnd Date Jacques Mccarthy MD PCP - GeneralFamily Medicine10/07/20Team MemberRelationshipSpecialtyStart DateEnd Date Jacques Mccarthy MD PCP - GeneralFamily Medicine10/07/20Team MemberRelationshipSpecialtyStart DateEnd Date Jacques Mccarthy MD PCP - GeneralFamily Medicine10/07/20Team MemberRelationshipSpecialtyStart DateEnd Date Jacques Mccarthy MD PCP - Generalmily Medicine10/07/20Team MemberRelationshipSpecialtyStart DateEnd Date Jacques Mccarthy MD PCP - Generalmily Medicine10/07/20Team MemberRelationshipSpecialtyStart DateEnd Date Jacques Mccarthy MD [address] [place] [address] PCP - Generalmi Medicine02/08/24Team MemberRelationshipSpecialtyStart DateEnd Date Jacques Mccarthy MD PCP - Generalmily Medicine10/07/20 Team Status: Active Member Role/Relationship Status Dates Fely Nieves DO Primary Care Provider Active Team Status: Inactive Member Role/Relationship Status Dates Fely Nieves DO Primary Care Provider Active Start: May 18, 2025 End: May 18, 2025Fely Nieves DOAttending ProviderActiveStart: May 18, 2025 End: May 18, 2025 [...] for Visit (unrecogniz ed section and content) ReasonCommentsRoutine VisitReasonCommentsNew PatientNP PULM HTN 36 WKS GESTATION ECHO @ AGUEDA SCHED W PTSpecialtyDiagnoses / ProceduresReferred By ContactReferred To ContactCardiology Diagnoses Pulmonary hypertension (CMS-HCC) 35 weeks gestation of Terra Lundberg MD [address], [address] [place] [address] Phone: tel: fax: Antonio Harden MD [address] [place] [address] Phone: tel: fax: Referral IDStatusReasonStart DateExpiration DateVisits RequestedVisits [id number] Review Specialty Services Required [id number] Observation of PACsSpecialtyDiagnoses / ProceduresReferred By ContactReferred To ContactPediatric Cardiology Diagnoses Abnormal ultrasonic finding on screening of mother, antepartum Terra Lundberg MD [address], [address] [place] [address] Phone: tel: fax: Sanam Cesar MD [address] [address] Phone: tel: fax: Referral IDStatusReasonStart DateExpiration DateVisits RequestedVisits [id number] Review Specialty Services Required [id number] blood glucose levelsHypertension ReasonCommentsPost-op VisitReasonCommentsPost-op VisitPostpartum Follow-up FOR RECORDS PERTAINING TO PATIENTS WHO [...] BE BASED ON THE PRIMARY CLINICAL RECORDS. [facility] [employer] [facility]. provides no warranty or guarantee of the accuracy or completeness of information in this document.
== END 2025-05-24 09:00 | disposition home or self-care (01) ==
LOC: CARD 08:59
PROVIDERS: PCP Student in an Organized Health Care Education/Training Program; Visit Provider Student in an Organized Health Care Education/Training Program
DX: I27.20 Pulmonary hypertension, unspecified (principal)
CPT/HCPCS: 93306

== ENCOUNTER 2025-06-13 07:37 | Outpatient (OUT) | payer MEDICAID, SELFPAY ==
--- OUTSIDE RECORDS SUMMARY | 2025-06-13 07:40 | XMS_ITS | Encounter Summary ---
Author Organization [facility] Address [address] [place] [address] Care Team Providers Care Solder Making Laborer Name Role Phone Hernán Mccarthy MD Primary Care Provider [phone] Encounter Details DateTypeDepartmentCare Team (Latest Contact Info)Zkgccdikhdl85/24/2025Clinisync Result Encounter [facility] External Department Unsolicited Scotty Dhillon, DO [address] [facility] [place] [address] Social History Tobacco UseTypesPacks/DayYears UsedDateSmoking Tobacco: Never Assessed CommentsYesSex and Gender InformationValueDate RecordedSex Assigned at BirthNot on fileLegal KbhPufpju10/15/2023 11:47 PM EDTGender IdentityNot on fileSexual OrientationNot on filedocumented as of this encounter Plan of Treatment Not on file documented as of this encounter Procedures Procedure NamePriorityDate/TimeAssociated DiagnosisCommentsUS OB GROWTH 08/25/2024 6:26 AM EST documented in this encounter Results * US OB GROWTH (08/25/2024 6:26 AM EST)Anatomical RegionLateralityModalityOther Specimen (Source)Anatomical Location / LateralityCollection Method / Volume Collection TimeReceived Time08/25/2024 6:26 AM EST Narrative 08/25/2024 6:28 AM EST The [facility] ?[address] ? [place] [address] ? Ultrasound Report ? Signed ? Patient: SOURAV,SAMANTHA N ?MR#: [id number] ?? : 1995 ?Acct:[id number] ?? Age/Sex: 29 / F ?ADM Date: 01/23/25 ?? Loc: US ? Attending Dr: Scotty Dhillon D.O. ? Ordering Physician: Scotty Dhillon D.O. ?? Date of Service: 08/24/24 ?? Procedure(s): US OB growth ?? Accession Number(s): [id number] ? cc: Scotty Dhillon D.O.; Hernán Mccarthy M.D. ? [facility] ? [address] ? [place] [address] ? Patient Name: ?? SAMANTHA Spence SOURAV ? MRN: [facility]:[id number] ? date: 1995 ?Sex: F ?? Assigned Patient Location: US ?? Current Patient Location: US ?? Accession/Order Number: [id number] ?? Exam Date: 08/24/2024 ??17:13 ?Report Date: 08/25/2024 ??06:26 ? At the request of: ?? SCOTTY ??JACQUIE ? Procedure: ??US OB growth ? EXAMINATION: US OB growth ? HISTORY: GESTATIONAL DIABETES MELLITUS O24.419 ? COMPARISON: Ultrasound OB growth 08/17/2024 ? FINDINGS: ? Heart Rate: 153 bpm ?? Amniotic Fluid Volume: 28.1 cm; greater than 95th percentile ?? Number: One ?? Position: Cephalic ? BIOMETRY: ?? BPD: 8.58 cm;; 34 weeks 4 days;; 66% ?? HC: 31.39 cm; ; 35 weeks 1 day;; 44% ?? AC: 31.82 cm;; ; 35 weeks 5 days; 92% ?? FL: 6.56 cm;; 33 weeks 6 days;; 35% ?? EFW: 2582 g;; 75% ?? FL/AC: 20.62 ?? FL/BPD: 76.44 ?? HC/AC: 0.99 ? GESTATIONAL AGE: ?? Age by EDC: 34 weeks 0 days ?? SUSANNA by EDC: 10/05/2024 ?? Age by US: 34 weeks 6 days ?? SUSANNA by US: 09/29/2024 ? US/US OB growth ?? IMPRESSION: ? 1. Single live intrauterine with growth detailed above. ?? 2. Abdominal circumference is at 92nd percentile. ?? 3. Polyhydramnios which is increased since prior study. ? Electronically authenticated by: PILLO ??DOMINGO ?? Date: 08/25/2024 ??06:26 ? Dictated By: ?Pillo Kern M.D. ? Signed By: ?08/25/24627 ? DD/ 0626 ? TD/TT: ? Bottling Equipment Sales Representative: Procedure Note Radiology, Radiologist, - 08/25/2024 [place] [address] Ultrasound Report Signed Patient: SAMANTHA BENJAMIN NMR#: [id number] : 1995Acct:[id number] Age/Sex: 29 / FADM Date: 08/24/24 Loc: US Attending Dr: Scotty Dhillon D.O. Ordering Physician: Scotty Dhillon D.O. Date of Service: 08/24/24 Procedure(s): US OB growth Accession Number(s): [id number] cc: Scotty Dhillon D.O.; Hernán Mccarthy M.D. The [place] [address] Patient Name: SAMANTHA BENJAMIN MRN: [facility]:[id number] date: 1995 Sex: F Assigned Patient Location: Current Patient Location: US Accession/Order Number: [id number] Exam Date: 08/24/2024 17:13 Report Date: 08/25/2024 06:26 At the request of: SCOTTY DHILLON Procedure: US OB growth EXAMINATION: US OB growth HISTORY: GESTATIONAL DIABETES MELLITUS O24.419 COMPARISON: Ultrasound OB growth 08/17/2024 FINDINGS: Heart Rate: 153 bpm Amniotic Fluid Volume: 28.1 cm; greater than 95th percentile Number: One Position: Cephalic BIOMETRY: BPD: 8.58 cm;; 34 weeks 4 days;; 66% HC: 31.39 cm; ; 35 weeks 1 day;; 44% AC: 31.82 cm;; ; 35 weeks 5 days; 92% FL: 6.56 cm;; 33 weeks 6 days;; 35% EFW: 2582 g;; 75% FL/AC: 20.62 FL/BPD: 76.44 HC/AC: 0.99 GESTATIONAL AGE: Age by EDC: 34 weeks 0 days SUSANNA by EDC: 10/05/2024 Age by US: 34 weeks 6 days SUSANNA by US: 09/29/2024 US/US OB growth IMPRESSION: 1. Single live intrauterine with growth detailed above. 2. Abdominal circumference is at 92nd percentile. 3. Polyhydramnios which is increased since prior study. Electronically authenticated by: PILLO KERN Date: 08/25/2024 06:26 Dictated By: Pillo Kern M.D. Signed By:08/25/24627 DD/ 5 TD/TT: Bottling Equipment Sales Representative: Authorizing ProviderResult TypeResult StatusCorey Jacquie DOCLINISYNC IMAGINGFinal Result documented in this encounter Visit Diagnoses Not on filedocumented in this encounter Care Teams Team MemberRelationshipSpecialtyStart DateEnd Date Hernán Mccarthy MD [address] [place] [address] PCP - GeneralFamily Medicine02/08/24documented as of this encounter
--- OUTSIDE RECORDS SUMMARY | 2025-06-13 07:40 | XMS_ITS | Encounter Summary ---
Author Organization [facility] Address [address] [place] [address] Care Team Providers Care Account Services Coordinator Name Role Phone Hernán Mccarthy MD Primary Care Provider [phone] Encounter Details DateTypeDepartmentCare Team (Latest Contact Info)Zdeuufvxpxw02/03/2025Clinisync Result Encounter [facility] External Department Unsolicited Scotty Dhillon, DO [address] [facility] [place] [address] Social History Tobacco UseTypesPacks/DayYears UsedDateSmoking Tobacco: Never Assessed CommentsYesSex and Gender InformationValueDate RecordedSex Assigned at BirthNot on fileLegal VvpFfedve63/15/2023 11:47 PM EDTGender IdentityNot on fileSexual OrientationNot on filedocumented as of this encounter Plan of Treatment Not on file documented as of this encounter Procedures Procedure NamePriorityDate/TimeAssociated DiagnosisCommentsUS OB PLACENTA 08/04/2024 9:12 PM EST documented in this encounter Results * US OB PLACENTA (08/04/2024 9:12 PM EST)Anatomical RegionLateralityModality OtherSpecimen (Source)Anatomical Location / LateralityCollection Method / VolumeCollection TimeReceived Time08/04/2024 9:12 PM EST Narrative 08/04/2024 9:15 PM EST The [facility] [facility] ?[address] ? [place] [address] ? Ultrasound Report ? Signed ? Patient: SOURAV,SAMANTHA N ?MR#: [id number] ?? : 1995 ?Acct:[id number] ?? Age/Sex: 29 / F ?ADM Date: ?? Loc: FBC ??258-1 ? Attending Dr: Scotty Dhillon D.O. ? Ordering Physician: Scotty Dhillon D.O. ?? Date of Service: 08/04/24 ?? Procedure(s): US OB placenta ?? Accession Number(s): [id number] ? cc: Scotty Dhillon D.O.; Hernán Mccarthy M.D. ? The [facility] ? [address] ? [place] [address] ? Patient Name: ?? SAMANTHA BENJAMIN ? MRN: [facility]:[id number] ? date: 1995 ?Sex: F ?? Assigned Patient Location: FBC ?? Current Patient Location: FBC ?? Accession/Order Number: [id number] ?? Exam Date: 08/04/2024 ??18:00 ?Report Date: 08/04/2024 ??21:12 ? At the request of: ?? SCOTTY ??JACQUIE ? Procedure: ??US OB placenta ? EXAMINATION: US OB placenta, US OB cervical length ? HISTORY: abdominal pain ? COMPARISON: Ultrasound OB incomplete anatomy 07/17/2024 ? FINDINGS: ? PLACENTA: Anterior. ?? CERVIX LENGTH: 4.0 cm in length with small amount of fluid within cervical ?? canal. ?? HEART RATE: 149 bpm ?? OTHER: Cephalic presentation. ?? AMNIOTIC FLUID: 13.1 cm (polyhydramnios). ? US/US OB placenta ?? IMPRESSION: ? 1. Anterior placenta without evidence of abruption or subchorionic hematoma. ?? 2. Small amount of fluid within the cervical canal. Cervix is 4.0 cm in ?? length. ?? 3. Single live intrauterine . ?? 4. Polyhydramnios. ? Electronically authenticated by: PILLO ??DOMINGO ?? Date: 08/04/2024 ??21:12 ? Dictated By: ?Pillo Kern M.D. ? Signed By: ?08/04/242114 ? DD/ 11 ? TD/TT: ? Hydro Generation Supervisor: Procedure Note Radiology, Radiologist, MD - 08/04/[address] [address] Ultrasound Report Signed Patient: SOURAV,SAMANTHA NMR#: [id number] : 1995Acct:[id number] Age/Sex: 29 / FADM Date: Loc: [facility] 258-[address]: Scotty Dhillon D.O. Ordering Physician: Scotty Dhillon D.O. Date of Service: 08/04/24 Procedure(s): US OB placenta Accession Number(s): [id number] cc: Scotty Dhillon D.O.; Hernán Mccarthy M.D. [place] [id number] Patient Name: SAMANTHA BENJAMIN MRN: [facility]:[id number] date: 1995 Sex: F Assigned Patient Location: [facility] Current Patient Location: [facility] Accession/Order Number: [id number] Exam Date: 08/04/2024 18:00 Report Date: 08/04/2024 21:12 At the request of: SCOTTY DHILLON Procedure: US OB placenta EXAMINATION: US OB placenta, US OB cervical length HISTORY: abdominal pain COMPARISON: Ultrasound OB incomplete anatomy 07/17/2024 FINDINGS: PLACENTA: Anterior. CERVIX LENGTH: 4.0 cm in length with small amount of fluid within cervical canal. HEART RATE: 149 bpm OTHER: Cephalic presentation. AMNIOTIC FLUID: 13.1 cm (polyhydramnios). US/US OB placenta IMPRESSION: 1. Anterior placenta without evidence of abruption or subchorionichematoma. 2. Small amount of fluid within the cervical canal. Cervix is 4.0 cm in length. 3. Single live intrauterine . 4. Polyhydramnios. Electronically authenticated by: PILLO KERN Date: 08/04/2024 21:12 Dictated By: Pillo Kern M.D. Signed By:08/04/242114 DD/ 11 TD/TT: Hydro Generation Supervisor: Authorizing ProviderResult TypeResult StatusCorey Jacquie DOCLINISYNC IMAGINGFinal Result documented in this encounter Visit Diagnoses Not on filedocumented in this encounter Care Teams Team MemberRelationshipSpecialtyStart DateEnd Date Hernán Mccarthy MD [address] [place] [address] PCP - GeneralFamily Medicine02/08/24documented as of this encounter
--- OUTSIDE RECORDS SUMMARY | 2025-06-13 07:40 | XMS_ITS | Patient Health Record ---
Demographics Address [address] [place] [address] Email Address Preferred Language en Marital Status Unknown Christian Affiliation Unknown Race White Ethnic Group Not or Lati no Author Organization [facility] Address [address] [place] [address] Support Name Relationship Address Phone LISA SHERMAN Emergency Contact [address] [facility] [place], [place] [phone] SOURAV RADAMES Guarantor Unknown Care Team Providers Care Outboard Motors Experimental Mechanic Name Role Phone Dr. John Dejesus Primary Care Provider Reason For Referral No Information Encounters Encounter Location Date Provider Diagnosis [facility] [address] [place] [address] 05/22/2025 John Dejesus [facility] [address] [place] [address]/22/2025 John Dejesus Plan Of Treatment No Information Insurance Providers Payer Name Payer Address Payer Phone Subscriber Number Group Number Insured Name Patient Relationship to Insured Coverage Start Date Coverage End Date zCARESO URCE-te rmed [address] [place] [address] [id number] SOURAVRADAMES Self - patient is the insured zMEDICAID CF after [employer]-termed [address] [place] [address] [id number] - patient is the insured 2020zDENTAL [employer]-termed [address] [place] [id number] - patient is the [id number] 2020zDental MEDICAID CFC after [employer]-termed [address] [place] [id number], GABRIELLESelf - patient is the [id number] 2020
--- OUTSIDE RECORDS SUMMARY | 2025-06-13 07:40 | XMS_ITS | Encounter Summary ---
Author Organization [facility] Address [address] [place] [address] Care Team Providers Care Cost Estimating Engineer Name Role Phone Hernán Mccarthy MD Primary Care Provider [phone] Encounter Details DateTypeDepartmentCare Team (Latest Contact Info)Rzeadpcylqd62/13/2025Clinisync Result Encounter [facility] External Department Unsolicited Scotty Dhillon, DO [address] [facility] [place] [address] Social History Tobacco UseTypesPacks/DayYears UsedDateSmoking Tobacco: Never Assessed CommentsYesSex and Gender InformationValueDate RecordedSex Assigned at BirthNot on fileLegal HleAokapz60/15/2023 11:47 PM EDTGender IdentityNot on fileSexual OrientationNot on filedocumented as of this encounter Plan of Treatment Not on file documented as of this encounter Procedures Procedure NamePriorityDate/TimeAssociated DiagnosisCommentsUS OB BPP WO NON-BNEOCM9408/14/2024 8:39 PM EST documented in this encounter Results * US OB BPP WO NON-STRESS (08/14/2024 8:39 PM EST)Anatomical Region LateralityModalityOtherSpecimen (Source)Anatomical Location / Laterality Collection Method / VolumeCollection TimeReceived Time08/14/2024 8:39 PM EST Narrative 08/14/2024 8:41 PM EST [facility] ?[address] ? [place] [address] ? Ultrasound Report ? Signed ? Patient: SOURAV,SAMANTHA N ?MR#: [id number] ?? : 1995 ?Acct:[id number] ?? Age/Sex: 29 / F ?ADM Date: /13/25 ?? Loc: [facility] ??250-1 ? Attending Dr: Scotty Dhillon D.O. ? Ordering Physician: Scotty Dhillon D.O. ?? Date of Service: 08/14/24 ?? Procedure(s): US OB BPP wo non-stress ?? Accession Number(s): [id number] ? cc: Scotty Dhillon D.O.; Hernán Mccarthy M.D. ? [facility] ? [address] ? [place] [address] ? Patient Name: ?? SAMANTHA Spence SOURAV ? MRN: [facility]:[id number] ? date: 1995 ?Sex: F ?? Assigned Patient Location: FBC ?? Current Patient Location: FBC ?? Accession/Order Number: [id number] ?? Exam Date: 08/14/2024 ??19:50 ?Report Date: 08/14/2024 ??20:39 ? At the request of: ?? SCOTTY ??JACQUIE ? Procedure: ??US OB BPP wo non-stress ? EXAMINATION: US OB BPP wo non-stress ? HISTORY:Non-reactive NST ? COMPARISON: Ultrasound OB biophysical 08/10/2024 ? TECHNIQUE: Ultrasound biophysical profile was performed in the radiology ?? department. ? BREATHING MOVEMENTS: 2 ?? GROSS BODY MOVEMENTS: 2 ?? TONE: 2 ?? QUALITATIVE AMNIOTIC FLUID VOLUME: 2 ? PRESENTATION: CEPHALIC ?? HEART RATE: 139.90 bpm ?? AMNIOTIC FLUID VOLUME: 30.10 cm ?? GESTATIONAL AGE: 32 weeks 4 days ? US/US OB BPP wo non-stress ?? IMPRESSION: ? 1. Total biophysical profile score: 8 ?? 2. Polyhydramnios; stable to slightly increased. ?? 3. 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 ? Electronically authenticated by: PILLO ??DOMINGO ?? Date: 08/14/2024 ??20:39 ? Dictated By: ?Pillo Kern M.D. ? Signed By: ?08/14/242040 ? DD/ 38 ? TD/TT: ? Edge Inker: Procedure Note Radiology, Radiologist, MD - 01/13/2025 [place] [address] Ultrasound Report Signed Patient: SAMANTHA BENJAMIN NMR#: [id number] : 1995Acct:[id number] Age/Sex: 29 / FADM Date: 08/14/24 Loc: [facility] 250-[address]: Scotty Dhillon D.O. Ordering Physician: Scotty Dhillon D.O. Date of Service: 08/14/24 Procedure(s): US OB BPP wo non-stress Accession Number(s): [id number] cc: Scotty Dhillon D.O.; Hernán Mccarthy M.D. The [place] [address] Patient Name: SAMANTHA BENJAMIN MRN: [id number]:[id number] date: 1995 Sex: F Assigned Patient Location: [facility] Current Patient Location: [facility] Accession/Order Number: [id number] Exam Date: 08/14/2024 19:50 Report Date: 08/14/2024 20:39 At the request of: SCOTTY DHILLON Procedure: US OB BPP wo non-stress EXAMINATION: US OB BPP wo non-stress HISTORY:Non-reactive NST COMPARISON: Ultrasound OB biophysical 08/10/2024 TECHNIQUE: Ultrasound biophysical profile was performed in the radiology department. BREATHING MOVEMENTS: 2 GROSS BODY MOVEMENTS: 2 TONE: 2 QUALITATIVE AMNIOTIC FLUID VOLUME: 2 PRESENTATION: CEPHALIC HEART RATE: 139.90 bpm AMNIOTIC FLUID VOLUME: 30.10 cm GESTATIONAL AGE: 32 weeks 4 days US/US OB BPP wo non-stress IMPRESSION: 1. Total biophysical profile score: 8 2. Polyhydramnios; stable to slightly increased. 3. 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 Electronically authenticated by: PILLO KERN Date: 08/14/2024 20:39 Dictated By: Pillo Kern M.D. Signed By:08/14/242040 DD/ 38 TD/TT: Edge Inker: Authorizing ProviderResult TypeResult StatusCorey Jacquie DOCLINISYNC IMAGINGFinal Result documented in this encounter Visit Diagnoses Not on filedocumented in this encounter Care Teams Team MemberRelationshipSpecialtyStart DateEnd Date Hernán Mccarthy MD [address] [place] [address] PCP - GeneralFamily Medicine02/08/24documented as of this encounter
--- OUTSIDE RECORDS SUMMARY | 2025-06-13 07:40 | XMS_ITS | Encounter Summary ---
Author Organization [facility] Address [address] [place] [address] Care Team Providers Care Protective Service Specialist Name Role Phone Hernán Mccarthy MD Primary Care Provider [phone] Encounter Details DateTypeDepartmentCare Team (Latest Contact Info)Lyyaoapqdxm72/07/2025Clinisync Result Encounter [facility] External Department Unsolicited Scotty Dhillon, DO [address] [facility] [address] [place] [address] Social History Tobacco UseTypesPacks/DayYears UsedDateSmoking Tobacco: Never Assessed CommentsYesSex and Gender InformationValueDate RecordedSex Assigned at BirthNot on fileLegal OrnXxqlqq97/15/2023 11:47 PM EDTGender IdentityNot on fileSexual OrientationNot on filedocumented as of this encounter Plan of Treatment Not on file documented as of this encounter Procedures Procedure NamePriorityDate/TimeAssociated DiagnosisCommentsUS OB BPP W NON-KQGOZR0108/08/2024 8:56 AM EST documented in this encounter Results * US OB BPP W NON-STRESS (08/08/2024 8:56 AM EST)Anatomical Region LateralityModalityOtherSpecimen (Source)Anatomical Location / Laterality Collection Method / VolumeCollection TimeReceived Time08/08/2024 8:56 AM EST Narrative 08/08/2024 8:58 AM EST The [facility] ?[address] ? [place] [address] ? Ultrasound Report ? Signed ? Patient: SOURAV,SAMANTHA N ?MR#: [id number] ?? : 1995 ?Acct:[id number] ?? Age/Sex: 29 / F ?ADM Date: 08/07/ ?? Loc: [facility] ??253-1 ? Attending Dr: Scotty Dhillon D.O. ? Ordering Physician: Scotty Dhillon D.O. ?? Date of Service: 08/07/24 ?? Procedure(s): US OB BPP w non-stress ?? Accession Number(s): [id number] ? cc: Scotty Dhillon D.O.; Hernán Mccarthy M.D. ? [facility] ? [address] ? [place] [address] ? Patient Name: ?? SAMANTHA Spence SOURAV ? MRN: [facility]:[id number] ? date: 1995 ?Sex: F ?? Assigned Patient Location: FBC ?? Current Patient Location: [facility] ?? Accession/Order Number: [id number] ?? Exam Date: 08/07/2024 ??18:35 ?Report Date: 08/08/2024 ??08:56 ? At the request of: ?? SCOTTY ??LAURIE ? Procedure: ??US OB BPP w non-stress ? EXAMINATION: US OB BPP w non-stress ? HISTORY:GDM ? COMPARISON: Ultrasound OB biophysical 08/05/2024 ? TECHNIQUE: Ultrasound biophysical profile was performed in the radiology ?? department. ? BREATHING MOVEMENTS: 0 ?? GROSS BODY MOVEMENTS: 2 ?? TONE: 2 ?? QUALITATIVE AMNIOTIC FLUID VOLUME: 2 ? PRESENTATION: Cephalic ?? HEART RATE: 142 bpm ?? AMNIOTIC FLUID VOLUME: 29.8 cm (greater than 95th percentile) ?? GESTATIONAL AGE: 31 weeks 4 days ? US/US OB BPP w non-stress ?? IMPRESSION: ? 1. Total biophysical profile score: 6 ?? 2. Polyhydramnios. ? Electronically authenticated by: PILLO ??DOMINGO ?? Date: 08/08/2024 ??08:56 ? Dictated By: ?Pillo Kern M.D. ? Signed By: ?08/08/24 0858 ? DD/ 0856 ? TD/TT: ? Transmitter Tester: Procedure Note Radiology, Radiologist, MD - 08/08/[address] [address] Ultrasound Report Signed Patient: SAMANTHA BENJAMIN NMR#: [id number] : 1995Acct:[id number] Age/Sex: 29 / FADM Date: 08/07/24 Loc: [facility] 253-[address]: Scotty Dhillon D.O. Ordering Physician: Scotty Dhillon D.O. Date of Service: 08/07/24 Procedure(s): US OB BPP w non-stress Accession Number(s): [id number] cc: Scotty Dhillon D.O.; Hernán Mccarthy M.D. The [place] [address] Patient Name: SAMANTHA BENJAMIN MRN: [id number] date: 1995 Sex: F Assigned Patient Location: [facility] Current Patient Location: [facility] Accession/Order Number: [id number] Exam Date: 08/07/2024 18:35 Report Date: 08/08/2024 08:56 At the request of: SCOTTY DHILLON Procedure: US OB BPP w non-stress EXAMINATION: US OB BPP w non-stress HISTORY:GDM COMPARISON: Ultrasound OB biophysical 08/05/2024 TECHNIQUE: Ultrasound biophysical profile was performed in the radiology department. BREATHING MOVEMENTS: 0 GROSS BODY MOVEMENTS: 2 TONE: 2 QUALITATIVE AMNIOTIC FLUID VOLUME: 2 PRESENTATION: Cephalic HEART RATE: 142 bpm AMNIOTIC FLUID VOLUME: 29.8 cm (greater than 95th percentile) GESTATIONAL AGE: 31 weeks 4 days US/US OB BPP w non-stress IMPRESSION: 1. Total biophysical profile score: 6 2. Polyhydramnios. Electronically authenticated by: PILLO KERN Date: 08/08/2024 08:56 Dictated By: Pillo Kern M.D. Signed By:08/08/24 0858 DD/ TD/TT: Transmitter Tester: Authorizing ProviderResult TypeResult StatusCorenona Dhillon DOCLINISYNC IMAGINGFinal Result documented in this encounter Visit Diagnoses Not on filedocumented in this encounter Care Teams Team MemberRelationshipSpecialtyStart DateEnd Date Hernán Mccarthy MD [address] [place] [address] PCP - GeneralFamily Medicine02/08/24documented as of this encounter
--- OUTSIDE RECORDS SUMMARY | 2025-06-13 07:40 | XMS_ITS | Encounter Summary ---
Author Organization [facility] Address [address] [place] [address] Care Team Providers Care High School Admissions Representative Name Role Phone Hernán Mccarthy MD Primary Care Provider [phone] Encounter Details DateTypeDepartmentCare Team (Latest Contact Info)Unzjxllzgon60/12/2024Clinisync Result Encounter [facility] External Department Unsolicited Scotty Dhillon, DO [address] [place] [address] Social History Tobacco UseTypesPacks/DayYears UsedDateSmoking Tobacco: Never Assessed CommentsUnknownSex and Gender InformationValueDate RecordedSex Assigned at Not on fileLegal ZudDxgewq69/15/2023 11:47 PM EDTGender IdentityNot on file Sexual OrientationNot on filedocumented as of this encounter Plan of Treatment Not on file documented as of this encounter Procedures Procedure NamePriorityDate/TimeAssociated DiagnosisCommentsUS OB TRANSVAGINAL 02/11/2024 8:47 AM EDT documented in this encounter Results * US OB TRANSVAGINAL (02/11/2024 8:47 AM EDT)Anatomical RegionLateralityModality OtherSpecimen (Source)Anatomical Location / LateralityCollection Method / VolumeCollection TimeReceived Time02/11/2024 8:47 AM EDT Narrative 02/11/2024 8:50 AM EDT [facility] ?[address] ? [place] [address] ? Ultrasound Report ? Signed ? Patient: Brandon,Samantha N ?MR#: [id number] ?? : 1995 ?Acct:[id number] ?? Age/Sex: 28 / F ?ADM Date: /12/24 ?? Loc: [facility] ? Attending Dr: Scotty Dhillon D.O. ? Ordering Physician: Scotty Dhillon D.O. ?? Date of Service: 02/11/24 ?? Procedure(s): US OB transvaginal ?? Accession Number(s): [id number] ? cc: Scotty Dhillon D.O.; Hernán Mccarthy M.D. ? [facility] ? [address] ? [place] [address] ? Patient Name: ?? SAMANTHA BENJAMIN ? MRN: [facility]:[id number] ? date: 1995 ?Sex: F ?? Assigned Patient Location: [facility] ?? Current Patient Location: [facility] ?? Accession/Order Number: [id number] ?? Exam Date: 02/11/2024 ??08:11 ?Report Date: 02/11/2024 ??08:47 ? At the request of: ?? SCOTTY ??JACQUIE ? Procedure: ??US OB transvaginal ? EXAMINATION: US OB transvaginal ? HISTORY: MISSED MENSES ? COMPARISON: No relevant comparison available. ? FINDINGS: ? Gutierres intrauterine gestation ?? Gestational sac: Normal morphology, 2.27 cm, 6 weeks 6 days ?? CRL: 4.6 mm, 6 weeks 1 day ?? Yolk sac: 1.5 mm ?? Heart rate: 142 beats minute ? Cervix: Closed, 3.5 cm ? The uterus is normal, anteverted, retroflexed ? The right ovary is normal. The left ovary is not visualized ? Clinical age: 7 weeks 3 days ?? Clinical SUSANNA: 09/26/2024 ? Ultrasound age: 6 weeks 1 day ?? Ultrasound SUSANNA: 10/05/2024 ? US/US OB transvaginal ?? IMPRESSION: ? Viable gutierres intrauterine gestation measuring 6 weeks 1 day ? Electronically authenticated by: IRINEO ??GARRET ?? Date: 02/11/2024 ??08:47 ? Dictated By: ?Irineo Combs M.D. ? Signed By: ?02/10/ 0850 ? DD/ 0847 ? TD/TT: ? Field Reimbursement Manager: Procedure Note Radiology, Radiologist, - 02/11/2024 [place] [address] Ultrasound Report Signed Patient: Samantha Benjamin NMR#: [id number] : 1995Acct:[id number] Age/Sex: 28 / FADM Date: 02/11/24 Loc: [facility] Attending Dr: Scotty Dhillon D.O. Ordering Physician: Scotty Dhillon D.O. Date of Service: 02/11/24 Procedure(s): US OB transvaginal Accession Number(s): [id number] cc: Scotty Dhillon D.O.; Hernán Mccarthy M.D. The [place] [id number] Patient Name: SAMANTHA BENJAMIN MRN: [facility]:[id number] date: 1995 Sex: F Assigned Patient Location: [facility] Current Patient Location: [facility] Accession/Order Number: [id number] Exam Date: 02/11/2024 08:11 Report Date: 02/11/2024 08:47 At the request of: SCOTTY DHILLON Procedure: US OB transvaginal EXAMINATION: US OB transvaginal HISTORY: MISSED MENSES COMPARISON: No relevant comparison available. FINDINGS: Gutierres intrauterine gestation Gestational sac: Normal morphology, 2.27 cm, 6 weeks 6 days CRL: 4.6 mm, 6 weeks 1 day Yolk sac: 1.5 mm Heart rate: 142 beats minute Cervix: Closed, 3.5 cm The uterus is normal, anteverted, retroflexed The right ovary is normal. The left ovary is not visualized Clinical age: 7 weeks 3 days Clinical SUSANNA: 09/26/2024 Ultrasound age: 6 weeks 1 day Ultrasound SUSANNA: 10/05/2024 US/US OB transvaginal IMPRESSION: Viable gutierres intrauterine gestation measuring 6 weeks 1 day Electronically authenticated by: IRINEO COMBS Date: 02/11/2024 08:47 Dictated By: Irineo Combs M.D. Signed By:02/11/24 0850 DD/ 0847 TD/TT: Field Reimbursement Manager: Authorizing ProviderResult TypeResult StatusCorey Jacquie DOCLINISYNC IMAGINGFinal Result documented in this encounter Visit Diagnoses Not on filedocumented in this encounter Care Teams Team MemberRelationshipSpecialtyStart DateEnd Hernán Mccarthy MD [address] [place] [phone] PCP - GeneralFamily Medicine02/08/24documented as of this encounter
--- OUTSIDE RECORDS SUMMARY | 2025-06-13 07:40 | XMS_ITS | Encounter Summary ---
Author Organization [facility] Address [address] [place] [address] Care Team Providers Care Online Content Developer Name Role Phone Hernán Mccarthy MD Primary Care Provider [phone] Encounter Details DateTypeDepartmentCare Team (Latest Contact Info)Fthvkdzixjb99/24/2025Clinisync Result Encounter [facility] External Department Unsolicited Scotty Dhillon, DO [address] [place] [address] Social History Tobacco UseTypesPacks/DayYears UsedDateSmoking Tobacco: Never Assessed CommentsYesSex and Gender InformationValueDate RecordedSex Assigned at BirthNot on fileLegal NqwUxbwxz57/15/2023 11:47 PM EDTGender IdentityNot on fileSexual OrientationNot on filedocumented as of this encounter Plan of Treatment Not on file documented as of this encounter Procedures Procedure NamePriorityDate/TimeAssociated DiagnosisCommentsUS OB UMBILICAL ARTERY GDGFQPW4408/25/2024 6:28 AM EST documented in this encounter Results * US OB UMBILICAL ARTERY DOPPLER (08/25/2024 6:28 AM EST)Anatomical Region LateralityModalityRadiographic ImagingSpecimen (Source)Anatomical Location / LateralityCollection Method / VolumeCollection TimeReceived Time08/25/2024 6:28 AM EST Narrative 08/25/2024 6:30 AM EST [facility] ?[address] ? [place] [address] ? Ultrasound Report ? Signed ? Patient: SOURAV,SAMANTHA N ?MR#: [id number] ?? : 1995 ?Acct:[id number] ?? Age/Sex: 29 / F ?ADM Date: 01/23/25 ?? Loc: US ? Attending Dr: Scotty Dhillon D.O. ? Ordering Physician: Scotty Dhillon D.O. ?? Date of Service: 08/24/24 ?? Procedure(s): US OB umbilical artery ?? Accession Number(s): [id number] ? cc: Scotty Dhillon D.O.; Hernán Mccarthy M.D. ? [facility] ? [address] ? [place] [address] ? Patient Name: ?? SAMANTHA Spence SOURAV ? MRN: [facility]:[id number] ? date: 1995 ?Sex: F ?? Assigned Patient Location: ?? Current Patient Location: US ?? Accession/Order Number: [id number] ?? Exam Date: 08/24/2024 ??17:13 ?Report Date: 08/25/2024 ??06:28 ? At the request of: ?? SCOTTY ??JACQUIE ? Procedure: ??US OB umbilical artery ? EXAMINATION: US OB umbilical artery ? HISTORY: GESTATIONAL DIABETES MELLITUS O24.419 ? COMPARISON: Ultrasound umbilical artery 08/17/2024 ? TECHNIQUE: Duplex Doppler evaluation of the umbilical arteries. ? FINDINGS: ?? HEART RATE: 153 bpm ?? UMBILICAL ARTERIES: 2 ?? GESTATIONAL AGE: 34 weeks 0 days ? WAVEFORM: Normal upstroke. No notching. Forward flow in diastole. ?? PEAK SYSTOLIC VELOCITY: 86 cm/s ?? END DIASTOLIC VELOCITY: 33 cm/s ?? SYST/DIAST RATIO (S:D): 2.6 ?? RESISTIVE INDEX: 0.6 ? US/US OB umbilical artery ?? IMPRESSION: ? 1. Class 0 = Normal umbilical artery blood velocity ? Electronically authenticated by: PILLO ??DOMINGO ?? Date: 08/25/2024 ??06:28 ? Dictated By: ?Pillo Kern M.D. ? Signed By: ?08/25/24 0630 ? DD/ 06 ? TD/TT: ? Barrel Roller: Procedure Note Radiology, Radiologist, MD - 08/25/2024 The [place] [id number] Ultrasound Report Signed Patient: SAMANTHA BENJAMIN NMR#: [id number] : 1995Acct:[id number] Age/Sex: 29 / FADM Date: 08/24/24 Loc: US Attending Dr: Scotty Dhillon D.O. Ordering Physician: Scotty Dhillon D.O. Date of Service: 08/24/24 Procedure(s): US OB umbilical artery Accession Number(s): [id number] cc: Scotty Dhillon D.O.; Hernán Mccarthy M.D. [place] [address] Patient Name: SAMANTHA BENJAMIN MRN: [facility]:[id number] date: 1995 Sex: F Assigned Patient Location: Current Patient Location: US Accession/Order Number: [id number] Exam Date: 08/24/2024 17:13 Report Date: 08/25/2024 06:28 At the request of: SCOTTY DHILLON Procedure: US OB umbilical artery EXAMINATION: US OB umbilical artery HISTORY: GESTATIONAL DIABETES MELLITUS O24.419 COMPARISON: Ultrasound umbilical artery 08/17/2024 TECHNIQUE: Duplex Doppler evaluation of the umbilical arteries. FINDINGS: HEART RATE: 153 bpm UMBILICAL ARTERIES: 2 GESTATIONAL AGE: 34 weeks 0 days WAVEFORM: Normal upstroke. No notching. Forward flow in diastole. PEAK SYSTOLIC VELOCITY: 86 cm/s END DIASTOLIC VELOCITY: 33 cm/s SYST/DIAST RATIO (S:D): 2.6 RESISTIVE INDEX: 0.6 US/US OB umbilical artery IMPRESSION: 1. Class 0 = Normal umbilical artery blood velocity Electronically authenticated by: PILLO KERN Date: 08/25/2024 06:28 Dictated By: Pillo Kern M.D. Signed By:08/25/24629 DD/ 7 TD/TT: Barrel Roller: Authorizing ProviderResult TypeResult StatusCorey Jacquie DOIMG XR PROCEDURESFinal Result documented in this encounter Visit Diagnoses Not on filedocumented in this encounter Care Teams Team MemberRelationshipSpecialtyStart DateEnd Date Hernán Mccarthy MD [address] [place] [phone] PCP - GeneralFamily Medicine02/08/24documented as of this encounter
--- OUTSIDE RECORDS SUMMARY | 2025-06-13 07:40 | XMS_ITS | Encounter Summary ---
Author Organization [facility] Address [address] [place] [address] Care Team Providers Care Eyeglass Cutter Name Role Phone Hernán Mccarthy MD Primary Care Provider [phone] Encounter Details DateTypeDepartmentCare Team (Latest Contact Info)Owkfkwpbbcg53/16/2025Clinisync Result Encounter [facility] External Department Unsolicited Scotty Dhillon, DO [address] [place] [address] Social History Tobacco UseTypesPacks/DayYears UsedDateSmoking Tobacco: Never Assessed CommentsYesSex and Gender InformationValueDate RecordedSex Assigned at BirthNot on fileLegal PexKyymqe54/15/2023 11:47 PM EDTGender IdentityNot on fileSexual OrientationNot on filedocumented as of this encounter Plan of Treatment Not on file documented as of this encounter Procedures Procedure NamePriorityDate/TimeAssociated DiagnosisCommentsUS OB GROWTH 08/17/2024 11:58 PM EST documented in this encounter Results * US OB GROWTH (08/17/2024 11:58 PM EST)Anatomical RegionLateralityModalityOther Specimen (Source)Anatomical Location / LateralityCollection Method / Volume Collection TimeReceived Time08/17/2024 11:58 PM EST Narrative 08/18/2024 12:01 AM EST [facility] ?[address] ? [place] [address] ? Ultrasound Report ? Signed ? Patient: SOURAV,SAMANTHA N ?MR#: [id number] ?? : 1995 ?Acct:[id number] ?? Age/Sex: 29 / F ?ADM Date: 01/16/25 ?? Loc: [facility] ? Attending Dr: Scotty Dhillon D.O. ? Ordering Physician: Scotty Dhillon D.O. ?? Date of Service: 08/17/24 ?? Procedure(s): US OB growth ?? Accession Number(s): [id number] ? cc: Scotty Dhillon D.O.; Hernán Mccarthy M.D. ? [facility] ? [address] ? [place] [address] ? Patient Name: ?? SAMANTHA Spence SOURAV ? MRN: [facility]:[id number] ? date: 1995 ?Sex: F ?? Assigned Patient Location: [facility] ?? Current Patient Location: [facility] ?? Accession/Order Number: [id number] ?? Exam Date: 08/17/2024 ??17:15 ?Report Date: 08/17/2024 ??23:58 ? At the request of: ?? SCOTTY ??JACQUIE ? Procedure: ??US OB growth ? EXAMINATION: US OB growth ? HISTORY: GDM ? COMPARISON: Ultrasound OB anatomy 05/18/2024 ? FINDINGS: ? Heart Rate: 148 bpm ?? Amniotic Fluid Volume: 25.1 cm; greater than 95th percentile. ?? Number: 1 ?? Position: Cephalic ? BIOMETRY: ?? BPD: 8.94 cm; 36 weeks 1 day; greater than 97th percentile; ; ?? HC: 32.08 cm;; 36 weeks 1 day;; 89% ?? AC: 30.95 cm;; 34 weeks 6 days;; 93% ?? FL: 6.40 cm;; 33 weeks 0 days;; 39% ?? EFW: 2481 g;; 88% ?? FL/AC: 20.66 ?? FL/BPD: 71.57 ?? HC/AC: 1.04 ? GESTATIONAL AGE: ?? Age by EDC: 33 weeks 0 days ?? SUSANNA by EDC: 10/05/2024 ?? Age by US: 35 weeks 0 days ?? SUSANNA by US: 09/21/2024 ? US/US OB growth ?? IMPRESSION: ? 1. Single live intrauterine with growth detailed above. ?? 2. Polyhydramnios. ?? 3. BPD is greater than 97th percentile. ? Electronically authenticated by: PILLO ??DOMINGO ?? Date: 08/17/2024 ??23:58 ? Dictated By: ?Pillo Kern M.D. ? Signed By: ?08/18/24 0001 ? DD/ ? TD/TT: ? Digital Asset Manager: Procedure Note Radiology, Radiologist, - 08/18/2024 [place] [address] Ultrasound Report Signed Patient: SAMANTHA BENJAMIN NMR#: [id number] : 1995Acct:[id number] Age/Sex: 29 / FADM Date: 08/17/24 Loc: [facility] Attending Dr: Scotty Dhillon D.O. Ordering Physician: Scotty Dhillon D.O. Date of Service: 08/17/24 Procedure(s): US OB growth Accession Number(s): [id number] cc: Scotty Dhillon D.O.; Hernán Mccarthy M.D. The [place] [id number] Patient Name: SAMANTHA BENJAMIN MRN: [facility]:[id number] date: 1995 Sex: F Assigned Patient Location: [facility] Current Patient Location: [facility] Accession/Order Number: [id number] Exam Date: 08/17/2024 17:15 Report Date: 08/17/2024 23:58 At the request of: SCOTTY DHILLON Procedure: US OB growth EXAMINATION: US OB growth HISTORY: GDM COMPARISON: Ultrasound OB anatomy 05/18/2024 FINDINGS: Heart Rate: 148 bpm Amniotic Fluid Volume: 25.1 cm; greater than 95th percentile. Number: 1 Position: Cephalic BIOMETRY: BPD: 8.94 cm; 36 weeks 1 day; greater than 97th percentile; ; HC: 32.08 cm;; 36 weeks 1 day;; 89% AC: 30.95 cm;; 34 weeks 6 days;; 93% FL: 6.40 cm;; 33 weeks 0 days;; 39% EFW: 2481 g;; 88% FL/AC: 20.66 FL/BPD: 71.57 HC/AC: 1.04 GESTATIONAL AGE: Age by EDC: 33 weeks 0 days SUSANNA by EDC: 10/05/2024 Age by US: 35 weeks 0 days SUSANNA by US: 09/21/2024 US/US OB growth IMPRESSION: 1. Single live intrauterine with growth detailed above. 2. Polyhydramnios. 3. BPD is greater than 97th percentile. Electronically authenticated by: PILLO KERN Date: 08/17/2024 23:58 Dictated By: Pillo Kern M.D. Signed By:08/18/24 0001 DD/ 2358 TD/TT: Digital Asset Manager: Authorizing ProviderResult TypeResult StatusCorey Jacquie DOCLINISYNC IMAGINGFinal Result documented in this encounter Visit Diagnoses Not on filedocumented in this encounter Care Teams Team MemberRelationshipSpecialtyStart DateEnd Date Hernán Mccarthy MD [address] [place] [phone] PCP - GeneralFamily Medicine02/08/24documented as of this encounter
--- OUTSIDE RECORDS SUMMARY | 2025-06-13 07:40 | XMS_ITS | Encounter Summary ---
Author Organization [facility] Address [address] [place] [address] Care Team Providers Care Family Caseworker Name Role Phone Hernán Mccarthy MD Primary Care Provider [phone] Encounter Details DateTypeDepartmentCare Team (Latest Contact Info)Tkpsdvcbexw16/17/2025Clinisync Result Encounter [facility] External Department Unsolicited Scotty Dhillon, DO [address] [place] [address] Social History Tobacco UseTypesPacks/DayYears UsedDateSmoking Tobacco: Never Assessed CommentsYesSex and Gender InformationValueDate RecordedSex Assigned at BirthNot on fileLegal WoaVadtja50/15/2023 11:47 PM EDTGender IdentityNot on fileSexual OrientationNot on filedocumented as of this encounter Plan of Treatment Not on file documented as of this encounter Procedures Procedure NamePriorityDate/TimeAssociated DiagnosisCommentsUS OB UMBILICAL ARTERY ZBQPVGE8008/18/2024 12:01 AM EST documented in this encounter Results * US OB UMBILICAL ARTERY DOPPLER (08/18/2024 12:01 AM EST)Anatomical Region LateralityModalityRadiographic ImagingSpecimen (Source)Anatomical Location / LateralityCollection Method / VolumeCollection TimeReceived Time08/18/2024 12:01 AM EST Narrative 08/18/2024 12:03 AM EST [facility] ?[address] ? [place] [address] ? Ultrasound Report ? Signed ? Patient: SOURAV,SAMANTHA N ?MR#: [id number] ?? : 1995 ?Acct:[id number] ?? Age/Sex: 29 / F ?ADM Date: 01/16/25 ?? Loc: [facility] ? Attending Dr: Scotty Dhillon D.O. ? Ordering Physician: Scotty Dhillon D.O. ?? Date of Service: 08/17/24 ?? Procedure(s): US OB umbilical artery ?? Accession Number(s): [id number] ? cc: Scotty Dhillon D.O.; Hernán Mccarthy M.D. ? [facility] ? [address] ? [place] [address] ? Patient Name: ?? SAMANTHA Spence SOURAV ? MRN: [facility]:[id number] ? date: 1995 ?Sex: F ?? Assigned Patient Location: [facility] ?? Current Patient Location: [facility] ?? Accession/Order Number: [id number] ?? Exam Date: 08/17/2024 ??17:15 ?Report Date: 08/18/2024 ??00:01 ? At the request of: ?? SCOTTY ??JACQUIE ? Procedure: ??US OB umbilical artery ? EXAMINATION: US OB umbilical artery ? HISTORY: GESTATIONAL DIABETES MELLITUS O24.419 ? COMPARISON: No relevant comparison available. ? TECHNIQUE: Duplex Doppler evaluation of the umbilical arteries. ? FINDINGS: ?? HEART RATE: 148 bpm ?? UMBILICAL ARTERIES: 2 ?? GESTATIONAL AGE: 33 weeks 0 days ? WAVEFORM: Normal upstroke. No notching. Forward flow in diastole. ?? PEAK SYSTOLIC VELOCITY: 78.0 cm/s ?? END DIASTOLIC VELOCITY: 28.3 cm/s ?? SYST/DIAST RATIO (S:D): 2.8 ?? RESISTIVE INDEX: Not calculated ? US/US OB umbilical artery ?? IMPRESSION: ? 1. Class 0 = Normal umbilical artery blood velocity ? Electronically authenticated by: PILLO ??DOMINGO ?? Date: 08/18/2024 ??00:01 ? Dictated By: ?Pillo Kern M.D. ? Signed By: ?08/18/24 0003 ? DD/ 0001 ? TD/TT: ? Barista: Procedure Note Radiology, Radiologist, MD - 08/18/[address] [address] Ultrasound Report Signed Patient: SAMANTHA BENJAMIN NMR#: [id number] : 1995Acct:[id number] Age/Sex: 29 / FADM Date: 08/17/24 Loc: [facility] Attending Dr: Scotty Dhillon D.O. Ordering Physician: Scotty Dhillon D.O. Date of Service: 08/17/24 Procedure(s): US OB umbilical artery Accession Number(s): [id number] cc: Scotty Dhillon D.O.; Hernán Mccarthy M.D. [place] [address] Patient Name: SAMANTHA BENJAMIN MRN: [facility]:[id number] date: 1995 Sex: F Assigned Patient Location: [facility] [place] [facility] Accession/Order Number: [id number] Exam Date: 08/17/2024 17:15 Report Date: 08/18/2024 00:01 At the request of: SCOTTY DHILLON Procedure: US OB umbilical artery EXAMINATION: US OB umbilical artery HISTORY: GESTATIONAL DIABETES MELLITUS O24.419 COMPARISON: No relevant comparison available. TECHNIQUE: Duplex Doppler evaluation of the umbilical arteries. FINDINGS: HEART RATE: 148 bpm UMBILICAL ARTERIES: 2 GESTATIONAL AGE: 33 weeks 0 days WAVEFORM: Normal upstroke. No notching. Forward flow in diastole. PEAK SYSTOLIC VELOCITY: 78.0 cm/s END DIASTOLIC VELOCITY: 28.3 cm/s SYST/DIAST RATIO (S:D): 2.8 RESISTIVE INDEX: Not calculated US/US OB umbilical artery IMPRESSION: 1. Class 0 = Normal umbilical artery blood velocity Electronically authenticated by: PILLO KERN Date: 08/18/2024 00:01 Dictated By: Pillo Kern M.D. Signed By:08/18/24 0003 DD/ 0001 TD/TT: Barista: Authorizing ProviderResult TypeResult StatusCorey Jacquie DOIMG XR PROCEDURESFinal Result documented in this encounter Visit Diagnoses Not on filedocumented in this encounter Care Teams Team MemberRelationshipSpecialtyStart DateEnd Date Hernán Mccarthy MD [address] [place] [phone] PCP - GeneralFamily Medicine02/08/24documented as of this encounter
--- OUTSIDE RECORDS SUMMARY | 2025-06-13 07:40 | XMS_ITS | Encounter Summary ---
Author Organization [facility] Address [address] [place] [address] Care Team Providers Care Business Services Sales Agent Name Role Phone Hernán Mccarthy MD Primary Care Provider [phone] Encounter Details DateTypeDepartmentCare Team (Latest Contact Info)Axnehcwmiwz86/16/2024Clinisync Result Encounter [facility] External Department Unsolicited Scotty Dhillon, DO [address] [place] [phone] Social History Tobacco UseTypesPacks/DayYears UsedDateSmoking Tobacco: Never Assessed CommentsYesSex and Gender InformationValueDate RecordedSex Assigned at BirthNot on fileLegal OngCqiuip77/15/2023 11:47 PM EDTGender IdentityNot on fileSexual OrientationNot on filedocumented as of this encounter Plan of Treatment Not on file documented as of this encounter Procedures Procedure NamePriorityDate/TimeAssociated DiagnosisCommentsUS OB INCOMPLETE RDBXSSL9106/17/2024 6:19 AM EST documented in this encounter Results * US OB INCOMPLETE ANATOMY (06/17/2024 6:19 AM EST)Anatomical RegionLaterality ModalityOtherSpecimen (Source)Anatomical Location / LateralityCollection Method / VolumeCollection TimeReceived Time06/17/2024 6:19 AM EST Narrative 06/17/2024 6:22 AM EST [facility] [place] [facility] ?[address] ? [place] [address] ? Ultrasound Report ? Signed ? Patient: SOURAV,SAMANTHA N ?MR#: [id number] ?? : 1995 ?Acct:[id number] ?? Age/Sex: 29 / F ?ADM Date: 11/14/24 ?? Loc: [facility] ? Attending Dr: Scotty Dhillon D.O. ? Ordering Physician: Scotty Dhillon D.O. ?? Date of Service: 06/15/24 ?? Procedure(s): US OB incomplete anatomy ?? Accession Number(s): [id number] ? cc: Scotty Dhillon D.O.; Hernán Mccarthy M.D. ? [facility] ? [address] ? [place] [address] ? Patient Name: ?? SAMANTHA Spence SOURAV ? MRN: [facility]:[id number] ? date: 1995 ?Sex: F ?? Assigned Patient Location: [facility] ?? Current Patient Location: [facility] ?? Accession/Order Number: [id number] ?? Exam Date: 06/15/2024 ??14:41 ?Report Date: 06/17/2024 ??06:19 ? At the request of: ?? SCOTTY ??LAURIE ? Procedure: ??US OB incomplete anatomy ? EXAM: US OB incomplete anatomy ? HISTORY: INCOMPLETE ANATOMY ? COMPARISON: Ultrasound OB anatomy 05/18/2024 ? TECHNIQUE: Transabdominal ultrasound ? FINDINGS: ?? Presentation: Cephalic ?? Heart rate: 154 bpm ?? Anatomy: Spine, three-vessel cord, cord insertion visualized without ?? appreciable abnormality. ?? Suboptimally anatomy: Cardiac outflow tracts could not be adequately evaluated ? on today's study. ? GA: 24 weeks 0 days ?? SUSANNA: 10/05/2024 ? US/US OB incomplete anatomy ?? IMPRESSION: ? 1. Suboptimal visualization of the cardiac outflow tracts. ?? 2. Adequate visualization of the spine, three-vessel cord, cord insertion; no ?? appreciable abnormality. ? Electronically authenticated by: PILLO ??DOMINGO ?? Date: 06/17/2024 ??06:19 ? Dictated By: ?Pillo Kern M.D. ? Signed By: ?06/17/24621 ? DD/ 06 ? TD/TT: ? Waiter/Waitress Buffet: Procedure Note Radiology, Radiologist, MD - 06/17/2024 The [place] [id number] Ultrasound Report Signed Patient: SAMANTHA BENJAMIN NMR#: [id number] : 1995Acct:[id number] Age/Sex: 29 / FADM Date: 06/15/24 Loc: [facility] Attending Dr: Scotty Dhillon D.O. Ordering Physician: Scotty Dhillon D.O. Date of Service: 06/15/24 Procedure(s): US OB incomplete anatomy Accession Number(s): [id number] cc: Scotty Dhillon D.O.; Hernán Mccarthy M.D. [place] [id number] Patient Name: SAMANTHA BENJAMIN MRN: [facility]:[id number] date: 1995 Sex: F Assigned Patient Location: [facility] Current Patient Location: [facility] Accession/Order Number: [id number] Exam Date: 06/15/2024 14:41 Report Date: 06/17/2024 06:19 At the request of: SCOTTY DHILLON Procedure: US OB incomplete anatomy EXAM: US OB incomplete anatomy HISTORY: INCOMPLETE ANATOMY COMPARISON: Ultrasound OB anatomy 05/18/2024 TECHNIQUE: Transabdominal ultrasound FINDINGS: Presentation: Cephalic Heart rate: 154 bpm Anatomy: Spine, three-vessel cord, cord insertion visualized without appreciable abnormality. Suboptimally anatomy: Cardiac outflow tracts could not be adequatelyevaluated on today's study. GA: 24 weeks 0 days SUSANNA: 10/05/2024 US/US OB incomplete anatomy IMPRESSION: 1. Suboptimal visualization of the cardiac outflow tracts. 2. Adequate visualization of the spine, three-vessel cord, cord insertion;no appreciable abnormality. Electronically authenticated by: PILLO KERN Date: 06/17/2024 06:19 Dictated By: Pillo Kern M.D. Signed By:06/17/24621 DD/ 8 TD/TT: Waiter/Waitress Buffet: Authorizing ProviderResult TypeResult StatusCorenona Dhillon DOCLINISYNC IMAGINGFinal Result documented in this encounter Visit Diagnoses Not on filedocumented in this encounter Care Teams Team MemberRelationshipSpecialtyStart DateEnd Date Hernán Mccarthy MD [address] [place] [phone] PCP - GeneralFamily Medicine02/08/24documented as of this encounter
--- OUTSIDE RECORDS SUMMARY | 2025-06-13 07:40 | XMS_ITS | Encounter Summary ---
Author Organization [facility] Address [address] [place] [address] Care Team Providers Care Early Intervention Specialist Name Role Phone Hernán Mccarthy MD Primary Care Provider [phone] Encounter Details DateTypeDepartmentCare Team (Latest Contact Info)Innhbgtdlyi28/27/2025Clinisync Result Encounter [facility] External Department Unsolicited Zhen Dhillon, DO [address] [facility] [address] [place] [address] Social History Tobacco UseTypesPacks/DayYears UsedDateSmoking Tobacco: Never Assessed CommentsYesSex and Gender InformationValueDate RecordedSex Assigned at BirthNot on fileLegal NtrBgbyjb74/15/2023 11:47 PM EDTGender IdentityNot on fileSexual OrientationNot on filedocumented as of this encounter Plan of Treatment Not on file documented as of this encounter Procedures Procedure NamePriorityDate/TimeAssociated DiagnosisCommentsCA ECHO DOPPLER WGHXXCRT64/27/2025 10:29 AM EST documented in this encounter Results * CA ECHO DOPPLER COMPLETE (08/28/2024 10:29 AM EST)Anatomical RegionLaterality ModalityOtherSpecimen (Source)Anatomical Location / LateralityCollection Method / VolumeCollection TimeReceived Time08/28/2024 10:29 AM EST Narrative 08/28/2024 10:30 AM EST [facility] ?[address] ? [place] [address] ? Cardiology Report ? Signed ? Patient: SOURAV,SAMANTHA N ?MR#: [id number] ?? : 1995 ?Acct:[id number] ?? Age/Sex: 29 / F ?ADM Date: 01/24/25 ?? Loc: CARD ? Attending Dr: Zhen Dhillon D.O. ? Ordering Physician: Zhen Dhillon D.O. ?? Date of Service: 08/25/24 ?? Procedure(s): CA echo doppler complete ?? Accession Number(s): [id number] ? cc: Zhen Dhillon D.O.; Hernán Mccarthy M.D. ? Patient Name: ? SAMANTHA SOURAV ? MR#: [id number] ? : 1995 ? Exam Date: 08/25/2024 ?? Ordering Doctor: DR Zhen Dhillon . ? ECHOCARDIOGRAM REPORT ? PROCEDURE: ? CA ECHO DOPPLER COMPLETE ? INDICATIONS: ? Hypertension in ? COMPARISON: ? None. ? DESCRIPTION: ? COMPLETE ECHOCARDIOGRAM Real-time transthoracic ?? echocardiography with 2D, M-mode, spectral and color flow Doppler performed. ? QUALITY: ? Technical quality was good. ? LEFT VENTRICLE: ? Normal chamber size. Mild concentric left ventricular ?? hypertrophy. Global left ventricular systolic function is normal. ?? LV EF: ? Calculated left ventricular ejection fraction is 68%. ?? DIASTOLIC: ? Diastolic function is indeterminate. ?? ATRIAL SEPTUM: ? LEFT ATRIUM: ? Normal chamber size. ?? RIGHT ATRIUM: ? Normal chamber size. ?? RIGHT VENTRICLE: ? Normal chamber size. Normal right ventricular systolic ?? function. ? TRICUSPID VALVE: ? Normal mobility and thickness. No stenosis with trivial ?? regurgitation. Mild pulmonary hypertension. RVSP 37 mmHg ? MITRAL VALVE: ? Normal mobility and thickness. ?? No evidence of mitral valve ?? stenosis. ??There is no mitral annular calcification. No mitral regurgitation. ? AORTIC VALVE: ? Normal trileaflet appearance. No visible sclerosis. ??Normal ?? leaflet mobility. ??No evidence of aortic valve stenosis. No aortic ?? regurgitation. ? AORTIC ROOT: ? Normal diameter and appearance. ? PULMONIC VALVE: ? Normal thickness and mobility. No stenosis. Trivial ?? regurgitation. ? PERICARDIUM: ? Trivial pericardial effusion. ? IVC: ? Collapses with inspirations. Normal size. ? PLEURA: ? CONCLUSION: ? 1. The left ventricle exhibits mild concentric hypertrophy with normal ?? systolic function. ??Calculated LVEF is 68%. ?? 2. Normal right ventricular size and systolic function. ?? 3. No significant valvular dysfunction. ?? 4. Mildly elevated right-sided pressures. ?? 5. Trivial pericardial effusion. ? Adult Echocardiography Procedure Report ?? Left Ventricle ?? LVEDD (3.7 - 5.6 cm): ? 4.85 cm ?? LVESD (2.2 - 4.0 cm): ? 3.33 cm ?? LVIVS thickness (0.6 - 1.2 cm): ? 1.04 cm ?? LVPW thickness (0.5 - 1.0 cm): ? 1.15 cm ?? e': ? 0.09 m/s ?? E - e': ? 8.24 ?? LVOT Max Gradient: ? 6.38 mm[Hg] ?? LVOT Area (cm2): ? 1.26 m/s ?? Peak Velocity (LVOT): ? 1.26 m/s ?? Mean Velocity (LVOT): ? 0.78 m/s ?? LVOT Diameter ? 1.86 cm ?? Left Ventricular Ejection Fraction: ? 68.19 % ?? Left Atrium ?? LA Volume Index (2D A2C): ? 30.30 ml/m2 ?? Left Atrium Systolic Dimension: ? 3.73 cm ?? Mitral Valve ?? MV E to A Ratio: ? 1.39, 1.38 ?? Mitral Valve A-Wave Peak Velocity: ? 0.56 m/s ?? Mitral Valve E-Wave Peak Velocity: ? 0.78 m/s ?? Right Ventricle ?? RV Internal Diastolic Dimension: ? 3.23 cm ?? Aorta ?? AO Root Diam: ? 2.67 cm ?? Ascending Ao Diam: ? 2.65 cm ?? Aortic Valve ?? AoV Area (Peak Buster): ? 2.04 cm2, 1.99 cm2 ?? AoV Area (VTI): ? 1.87 cm2, 1.85 cm2 ?? Peak Velocity(Antegrade Flow): ? 1.72 m/s, 1.64 m/s ?? Peak Gradient(Antegrade Flow): ? 11.84 mm[Hg], 10.75 mm[Hg] ?? Mean Velocity(Antegrade Flow): ? 1.10 m/s, 1.07 m/s ?? Mean Gradient(Antegrade Flow): ? 5.77 mm[Hg], 5.46 mm[Hg] ?? Velocity Time Integral: ? 34.61 cm, 33.99 cm ?? Tricuspid Valve ?? Peak Velocity (Regurgitant Flow): ? 2.34 m/s, 2.72 m/s, 2.63 m/s, 2.91 m/s ?? Pulmonic Valve ?? Mean Gradient: ? 4.47 mm[Hg], 4.52 mm[Hg], 5.19 mm[Hg], 5.13 mm[Hg] ?? Mean Velocity: ? 0.99 m/s, 1.00 m/s, 1.07 m/s, 1.07 m/s ?? Peak Velocity: ? 1.41 m/s ?? Peak Gradient: ? 7.33 mm[Hg], 7.33 mm[Hg], 8.93 mm[Hg], 8.42 mm[Hg] ?? Right Atrium ?? Right Atrium Systolic Pressure: ? 46.98 ml, 46.98 ml ? Dictated by: Triston Bonilla M.D. on 08/28/2024 at 10:23 ? Approved by: Triston Bonilla M.D. on 08/28/2024 at 10:29 ? Dictated By: ?TRISTON BONILLA ? Signed By: ?08/28/ 1030 ? DD/ 1029 ? TD/TT: ? Technology Support Analyst: Procedure Note Radiology, Radiologist, - 08/28/2024 [place] [address] Cardiology Report Signed Patient: SAMANTHA BENJAMIN NMR#: [id number] : 1995Acct:[id number] Age/Sex: M Date: 08/25/24 Loc: CARD Attending Dr: Zhen Dhillon D.O. Ordering Physician: Zhen Dhillon D.O. Date of Service: 08/25/24 Procedure(s): CA echo doppler complete Accession Number(s): [id number] cc: Zhen Dhillon D.O.; Hernán Mccarthy M.D. Patient Name: SAMANTHA BENJAMIN MR#: [id number] : 1995 Exam Date: 08/25/2024 Ordering Doctor: DR Zhen Dhillon . ECHOCARDIOGRAM REPORT PROCEDURE: CA ECHO DOPPLER COMPLETE INDICATIONS: Hypertension in COMPARISON: None. DESCRIPTION: COMPLETE ECHOCARDIOGRAM Real-time transthoracic echocardiography with 2D, M-mode, spectral and color flow Dopplerperformed. QUALITY: Technical quality was good. LEFT VENTRICLE: Normal chamber size. Mild concentric left ventricular hypertrophy. Global left ventricular systolic function is normal. LV EF: Calculated left ventricular ejection fraction is 68%. DIASTOLIC: Diastolic function is indeterminate. ATRIAL SEPTUM: LEFT ATRIUM: Normal chamber size. RIGHT ATRIUM: Normal chamber size. RIGHT VENTRICLE: Normal chamber size. Normal right ventricularsystolic function. TRICUSPID VALVE: Normal mobility and thickness. No stenosis withtrivial regurgitation. Mild pulmonary hypertension. RVSP 37 mmHg MITRAL VALVE: Normal mobility and thickness. No evidence of mitralvalve stenosis. There is no mitral annular calcification. No mitralregurgitation. AORTIC VALVE: Normal trileaflet appearance. No visible sclerosis.Normal leaflet mobility. No evidence of aortic valve stenosis. No aortic regurgitation. AORTIC ROOT: Normal diameter and appearance. PULMONIC VALVE: Normal thickness and mobility. No stenosis. Trivial regurgitation. PERICARDIUM: Trivial pericardial effusion. IVC: Collapses with inspirations. Normal size. PLEURA: CONCLUSION: 1. The left ventricle exhibits mild concentric hypertrophy with normal systolic function. Calculated LVEF is 68%. 2. Normal right ventricular size and systolic function. 3. No significant valvular dysfunction. 4. Mildly elevated right-sided pressures. 5. Trivial pericardial effusion. Adult Echocardiography Procedure Report Left Ventricle LVEDD (3.7 - 5.6 cm): 4.85 cm LVESD (2.2 - 4.0 cm): 3.33 cm LVIVS thickness (0.6 - 1.2 cm): 1.04 cm LVPW thickness (0.5 - 1.0 cm): 1.15 cm e': 0.09 m/s E - e': 8.24 LVOT Max Gradient: 6.38 mm[Hg] LVOT Area (cm2): 1.26 m/s Peak Velocity (LVOT): 1.26 m/s Mean Velocity (LVOT): 0.78 m/s LVOT Diameter 1.86 cm Left Ventricular Ejection Fraction: 68.19 % Left Atrium LA Volume Index (2D A2C): 30.30 ml/m2 Left Atrium Systolic Dimension: 3.73 cm Mitral Valve MV E to A Ratio: 1.39, 1.38 Mitral Valve A-Wave Peak Velocity: 0.56 m/s Mitral Valve E-Wave Peak Velocity: 0.78 m/s Right Ventricle RV Internal Diastolic Dimension: 3.23 cm Aorta AO Root Diam: 2.67 cm Ascending Ao Diam: 2.65 cm Aortic Valve AoV Area (Peak Buster): 2.04 cm2, 1.99 cm2 AoV Area (VTI): 1.87 cm2, 1.85 cm2 Peak Velocity(Antegrade Flow): 1.72 m/s, 1.64 m/s Peak Gradient(Antegrade Flow): 11.84 mm[Hg], 10.75 mm[Hg] Mean Velocity(Antegrade Flow): 1.10 m/s, 1.07 m/s Mean Gradient(Antegrade Flow): 5.77 mm[Hg], 5.46 mm[Hg] Velocity Time Integral: 34.61 cm, 33.99 cm Tricuspid Valve Peak Velocity (Regurgitant Flow): 2.34 m/s, 2.72 m/s, 2.63 m/s, 2.91m/s Pulmonic Valve Mean Gradient: 4.47 mm[Hg], 4.52 mm[Hg], 5.19 mm[Hg], 5.13 mm[Hg] Mean Velocity: 0.99 m/s, 1.00 m/s, 1.07 m/s, 1.07 m/s Peak Velocity: 1.41 m/s Peak Gradient: 7.33 mm[Hg], 7.33 mm[Hg], 8.93 mm[Hg], 8.42 mm[Hg] Right Atrium Right Atrium Systolic Pressure: 46.98 ml, 46.98 ml Dictated by: Triston Bonilla M.D. on 08/28/2024 at 10:23 Approved by: Triston Bonilla M.D. on 08/28/2024 at 10:29 Dictated By: TRISTON BONILLA Signed By:08/28/24 1030 DD/ 1029 TD/TT: Technology Support Analyst: Authorizing ProviderResult TypeResult StatusCorey Jacquie DOCLINISYNC IMAGINGFinal Result documented in this encounter Visit Diagnoses Not on filedocumented in this encounter Care Teams Team MemberRelationshipSpecialtyStart DateEnd Date Hernán Mccarthy MD [address] [place] [phone] PCP - GeneralFamily Medicine02/08/24documented as of this encounter
--- OUTSIDE RECORDS SUMMARY | 2025-06-13 07:40 | XMS_ITS | Encounter Summary ---
Author Organization [facility] Address [address] [place] [address] Care Team Providers Care Clicker Operator Name Role Phone Hernán Mccarthy MD Primary Care Provider [phone] Encounter Details DateTypeDepartmentCare Team (Latest Contact Info)Myifndslebb78/06/2025Clinisync Result Encounter [facility] External Department Unsolicited Scotty Dhillon, DO [address] [facility] [place] [address] Social History Tobacco UseTypesPacks/DayYears UsedDateSmoking Tobacco: Never Assessed CommentsYesSex and Gender InformationValueDate RecordedSex Assigned at BirthNot on fileLegal LbbEngjtl46/15/2023 11:47 PM EDTGender IdentityNot on fileSexual OrientationNot on filedocumented as of this encounter Plan of Treatment Not on file documented as of this encounter Procedures Procedure NamePriorityDate/TimeAssociated DiagnosisCommentsUS OB UMBILICAL ARTERY PCMXQPI6208/07/2024 9:20 PM EST MLR HEMOGLOBIN S0MTetvpjr38/06/2025 8:20 PM EST documented in this encounter Results * OB UMBILICAL ARTERY DOPPLER (08/07/2024 9:20 PM EST)Anatomical Region LateralityModalityRadiographic ImagingSpecimen (Source)Anatomical Location / LateralityCollection Method / VolumeCollection TimeReceived Time08/07/2024 9:20 PM EST Narrative 08/07/2024 9:23 PM EST [facility] ?[address] ? [place] [address] ? Ultrasound Report ? Signed ? Patient: SOURAV,SAMANTHA N ?MR#: [id number] ?? : 1995 ?Acct:[id number] ?? Age/Sex: 29 / F ?ADM Date: 08/07/24 ?? Loc: [facility] ??253-1 ? Attending Dr: Scotty Dhillon D.O. ? Ordering Physician: Scotty Dhillon D.O. ?? Date of Service: 08/07/24 ?? Procedure(s): US OB umbilical artery ?? Accession Number(s): [id number] ? cc: Scotty Dhillon D.O.; Hernán Mccarthy M.D. ? [facility] ? [address] ? [place] [address] ? Patient Name: ?? SAMANTHA BENJAMIN ? MRN: [facility]:[id number] ? date: 1995 ?Sex: F ?? Assigned Patient Location: [facility] ?? Current Patient Location: [facility] ?? Accession/Order Number: [id number] ?? Exam Date: 08/07/2024 ??19:10 ?Report Date: 08/07/2024 ??21:20 ? At the request of: ?? SCOTTY ??JACQUIE ? Procedure: ??US OB umbilical artery ? Examination:US OB umbilical artery ? INDICATION:non reactive NST ? COMPARISON:08/05/2023 biophysical profile ? TECHNIQUE:Limited ultrasonography was performed. ? FINDINGS:There is a single live intrauterine gestation in cephalic ?? presentation ?? demonstrating spontaneous motion. heartbeat 142 bpm was obtained. ?? A ?? three-vessel cord is visualized. There is normal flow of the umbilical ?? arteries. There is persistent polyhydramnios with JANES of 29.8 cm. The largest ?? pocket of fluid measures 9.2 cm. ? US/US OB umbilical artery ?? IMPRESSION: ? Single live intrauterine gestation with spontaneous motion and cardiac ?? activity. presentation is cephalic. A three-vessel cord is visualized ?? demonstrating normal flow. Persistent polyhydramnios as discussed above. ? Electronically authenticated by: GERTRUDE ??LICHA ?? Date: 08/07/2024 ??21:20 ? Dictated By: ?Gertrude Hurt M.D. ? Signed By: ?08/07/242122 ? DD/ 19 ? TD/TT: ? Supervisor Sintering Plant: Procedure Note Radiology, Radiologist, - 08/07/2024 [place] [address] Ultrasound Report Signed Patient: SAMANTHA BENJAMIN NMR#: [id number] : 1995Acct:[id number] Age/Sex: 29 / FADM Date: 08/07/24 Loc: [facility] 253-[address]: Scotty Dhillon D.O. Ordering Physician: Scotty Dhillon D.O. Date of Service: 08/07/24 Procedure(s): US OB umbilical artery Accession Number(s): [id number] cc: Scotty Dhillon D.O.; Hernán Mccarthy M.D. The [address] [address] Patient Name: SAMANTHA BENJAMIN MRN: [facility]:[id number] date: 1995 Sex: F Assigned Patient Location: [facility] Current Patient Location: [facility] Accession/Order Number: [id number] Exam Date: 08/07/2024 19:10 Report Date: 08/07/2024 21:20 At the request of: SCOTTY DHILLON Procedure: US OB umbilical artery Examination:US OB umbilical artery INDICATION:non reactive NST COMPARISON:08/05/2023 biophysical profile TECHNIQUE:Limited ultrasonography was performed. FINDINGS:There is a single live intrauterine gestation in cephalic presentation demonstrating spontaneous motion. heartbeat 142 bpm wasobtained. A three-vessel cord is visualized. There is normal flow of the umbilical arteries. There is persistent polyhydramnios with JANES of 29.8 cm. Thelargest pocket of fluid measures 9.2 cm. US/US OB umbilical artery IMPRESSION: Single live intrauterine gestation with spontaneous motion andcardiac activity. presentation is cephalic. A three-vessel cord isvisualized demonstrating normal flow. Persistent polyhydramnios as discussed above. Electronically authenticated by: GERTRUDE HURT Date: 08/07/2024 21:20 Dictated By: Gertrude Hurt M.D. Signed By:08/07/242122 DD/ 19 TD/TT: Supervisor Sintering Plant: Authorizing ProviderResult TypeResult StatusCorey Jacquie DOIMG XR PROCEDURESFinal Result * MLR HEMOGLOBIN A1C (08/07/2024 8:20 PM EST)ComponentValueRef RangeTest Method Analysis TimePerformed AtPathologist SignatureGLYCOHEMOGLOBIN A1C5.54.5 - 6.2 %TBHComment: ADA RECOMMENDED LIMIT 4.0 - 6.0 ADA THERAPEUTIC TARGET < 7.0 ACTION SUGGESTED > 7.0 ESTIMATED AVERAGE WQTIILZ976yj/dLTBHSpecimen (Source)Anatomical Location / LateralityCollection Method / VolumeCollection TimeReceived Time08/07/2024 8:20 PM EST08/07/2024 9:20 PM EST Narrative [facility] - 08/07/2024 9:34 PM EST Authorizing ProviderResult TypeResult StatusCorey Jacquie DOCLINISYNCFinal Result Performing OrganizationAddressCity/State/ZIP CodePhone Number [facility] documented in this encounter Visit Diagnoses Not on filedocumented in this encounter Care Teams Team MemberRelationshipSpecialtyStart DateEnd Hernán Mccarthy MD [address] [place] [phone] PCP - GeneralFamily Medicine02/08/24documented as of this encounter
--- OUTSIDE RECORDS SUMMARY | 2025-06-13 07:40 | XMS_ITS | Clinical Summary ---
Author Organization [facility] tem Address [id number] [address] [place] [address] Care Team Providers Care Air Hole Driller Name Role Phone Hernán Mccarthy MD Primary Care Provider [phone] Allergies No known active allergies Medications MedicationSigDispense QuantityRefillsLast FilledStart DateEnd DateStatus miscellaneous medical supply [facility] by miscellaneous route once. Pen [...] mouth in the morning. 30 tablet 07/14/2024ctive [facility] ULTRA2 METER [facility] USE TO CHECK FASTING BLOOD [...] Problems ProblemNoted DateDiagnosed DateDelivery of by section 09/14/20241959Iribcgtvspg73/07/2025Separation of chorion and amnion membranes, dnwkexhbgy08/14/2025Polyhydramnios affecting eakjsoibg03/14/2025Fetal arrhythmia affecting , gjtlcrcyhr34/14/2025Gestational diabetes mellitus (GDM) in third yqgnbvsaa05/14/2025Gestational diabetes mellitus (GDM), antepartum 06/21/2024Fetal cardiac outflow tracts on huisquqvxn36/20/2024hronic hypertension affecting Resolved Problems ProblemNoted DateDiagnosed DateResolved DateBMI 40.0-44.9, adult06/21/2024 09/08/2024 Encounters DateTypeDepartmentCare QowhFiwhqoskdlj54/25/2025Telephone [facility] [address] [place] [address] Angela Hodgson from Last 3 [...] standard drink = 0.6 oz pure alcohol)ChildcareAnswerDate JaqyxwztOgzvxvhhvRcnwbed02/22/2021mployment AnswerDate YwivdswmVvhydrdkeyJrkywsj51/22/2021Hunger ScreeningAnswerDate RecordedWithin the past 12 months we worried whether our food would run out before we got money to buy more.Never True09/05/2024Within the past 12 months the food we bought just didn't last and we didn't have money to get more.Never True09/05/2024Purpose - LifeAnswerDate RecordedPurpose and direction in life Ghwyapc6008/23/2020CommentsNoSex and Gender InformationValueDate Recorded Sex Assigned at BirthNot on fileLegal MnyHqocjr12/22/2021 1:40 PM ESTGender IdentityNot on fileSexual OrientationNot on file Last Filed Vital Signs Vital SignReadingTime TakenCommentsBlood Monkkrrc669/58009/16/2024 11:40 AM EST Ricgt173009/16/2024 11:40 AM CSSPnujffsipqr85 ??C (98.6 ??F)09/16/2024 11:40 AM ESTRespiratory Ookf875609/16/2024 11:40 AM ESTOxygen Jcpxdyxmdo12%09/14/2024 7:00 PM ESTInhaled Oxygen Concentration--Gzocac931.3 kg (230 lb)09/14/2024 1:34 PM NPYIiqgjq476 cm (5' 3 )09/14/2024 1:34 PM ESTBody Mass Index40.7409/14/2024 1:34 PM EST Plan of Treatment Health MaintenanceDue DateLast DoneCommentsDepression Dgwiqvjlt83/03/2009dult BMI Follow Up Plan2015DTaP,Tdap and Td Vaccines (1 - Tdap)2016Pap Smear2018Influenza Qgozqib9604/02/2025dult BMI Gtpvheutq66/13/2026 09/14/2024Tobacco Wpqxugvty42 Medical Devices Not on file Insurance Advance Directives * Full Code (Latest Code Status on File) Date ActivatedDate InactivatedComments09/14/2024 9:11 AM09/16/2024 4:09 PM Care Teams Team MemberRelationshipSpecialtyStart DateEnd Date Hernán Mccarthy MD PCP - GeneralFamily Medicine10/07/20
--- OUTSIDE RECORDS SUMMARY | 2025-06-13 07:40 | XMS_ITS | Clinical Summary ---
Author Organization [facility] Address [address] [place] [address] Care Team Providers Care Able Seaman Name Role Phone Unavailable Primary Care Provider Unavailabl e Allergies No known active allergies Medications No known medications Active Problems ProblemNoted DateDiagnosed DatePain, abdominal, zwfvdhszgfa20/07/2012 Headache(784.0)11/07/2011Tremor, /07/2012Keratosis wydombl8211/07/2011 Encounters DateTypeDepartmentCare UykoNgdrloudapz02/17/2025Lab Requisition [facility] [address] [place] [address] Fely Nieves DO from Last 3 Months [...] RecordedSex Assigned at BirthNot on fileLegal Sex Wqufsx9007/03/2012 10:14 AM ESTGender IdentityNot on fileSexual OrientationNot on file Last Filed Vital Signs Vital SignReadingTime TakenCommentsBlood Lnuxrebs719/7105 1:10 PM EDT Wylsg5953 1:10 PM EDTTemperature--Respiratory Rate--Oxygen Saturation-- Inhaled Oxygen Concentration--Qqdhsi26.1 kg (121 lb 6.4 oz)12/02/2011 1:10 PM QYCFmivbu753.3 cm (5' 3.11 )12/02/2011 1:10 PM EDTBody Mass Index21.43012/02/2011 1:10 PM EDT Plan of Treatment Health MaintenanceDue DateLast DoneCommentsAnxiety Zdsylfkti88/03/2015Depression Wwjnltkwo69/03/2015HIV Sqczwexot88/03/2015Hepatitis C Muutemrxx38/03/2015 DTaP,Tdap,Td Vaccine (1 - Tdap)2016Hepatitis B Vaccine (1 of 3 - 19+ 3- dose series)2016Cervical Cancer Ilfkstboa20/03/2018HPV Vaccine (1 - 3-dose SCDM series)4Covid-19 Vaccine (1 - 2024- season)2025Influenza Vaccine (#1)2025 Procedures Procedure NamePriorityDate/TimeAssociated DiagnosisCommentsCREATININE (SPECIAL CHEM)Brdyasb2805/18/2025 11:56 AM EDTMETANEPHRINES RAN LPLmmljjb25/17/2025 11:56 AM EDT METANEPHRINES RAN TAUforvun85/17/2025 11:56 AM EDT from Last 3 Months Results * METANEPHRINES RAN UR (05/18/2025 11:56 AM EDT)ComponentValueRef RangeTest MethodAnalysis TimePerformed AtPathologist SignatureMetanephrine, Urine Random 750 - 227 ug/g creat1 10:30 AM [facility]ST[facility] Normetanephrine, Urine Kuuvbi303964 - 450 ug/g creat1 10:30 AM EDT [facility] LABMetanephrine Total, Urine Wemxtp009929 - 677 ug/g creat1 10:30 AM EDTCUNIVERSITY [facility] LABComment: Urine Metanephrine test performed by Liquid Chromatography Tandem Mass Spectrometry (LC-MS/MS). Results obtained with different methods or kits cannot be used interchangeably. This test was developed, and its performance characteristics determined by the [facility] Department of Pathology and Laboratory Medicine. It has not been cleared or approved by the FDA. The [facility] Department of Pathology and Laboratory Medicine is regulated under CLIA as qualified to perform high-complexity testing. This test is used for clinical purposes. It should not be regarded as investigational or for research. Specimen (Source)Anatomical Location / LateralityCollection Method / Volume Collection TimeReceived TimeUrineURINE SPECIMEN / Hvzzleu9905/18/2025 11:56 AM EDT 05/18/2025 11:23 PM EDT Narrative Authorizing ProviderResult TypeResult StatusKaitlou Nieves DOLABORATORYFinal ResultPerforming OrganizationAddressCity/State/ZIP CodePhone Number [facility] [address] [place] [address], * CREATININE (SPECIAL CHEM) (05/18/2025 11:56 AM EDT)Specimen (Source)Anatomical Location / LateralityCollection Method / VolumeCollection TimeReceived Time UrineURINE SPECIMEN / Dimwvrc5405/18/2025 11:56 AM EDT1 11:23 PM EDT Narrative Authorizing ProviderResult TypeResult StatusKaittomas Cadenao DOLABORATORYFinal ResultPerforming OrganizationAddressty/[facility]/ZIP CodePhone Number [facility] [address] [place] [address], from Last 3 Months Insurance MemberSubscriberPlan / Payer (Effective 2018-Present)Name:Samantha Benjamin Relation to Subscriber:ChildName:PIA BENJAMIN Date of :1967 (Home) Address: [address] [place] [address] Payer ID:Not on file Group ID:Not on file Type:[facility] Address: [place] [id number]
--- OUTSIDE RECORDS SUMMARY | 2025-06-13 07:40 | XMS_ITS | Encounter Summary ---
Author Organization [facility] Address [address] [place] [address] Care Team Providers Care Assembler Seat Name Role Phone Hernán Mccarthy MD Primary Care Provider [phone] Encounter Details DateTypeDepartmentCare Team (Latest Contact Info)Xbqyexrzvrg92/17/2024Clinisync Result Encounter [facility] External Department Unsolicited Scotty Dhillon, DO [address] [place] [address] Social History Tobacco UseTypesPacks/DayYears UsedDateSmoking Tobacco: Never Assessed CommentsYesSex and Gender InformationValueDate RecordedSex Assigned at BirthNot on fileLegal FehXwkspu60/15/2023 11:47 PM EDTGender IdentityNot on fileSexual OrientationNot on filedocumented as of this encounter Plan of Treatment Not on file documented as of this encounter Procedures Procedure NamePriorityDate/TimeAssociated DiagnosisCommentsUS OB CERVICAL LENGTH 05/18/2024 12:45 PM EDT documented in this encounter Results * US OB CERVICAL LENGTH (05/18/2024 12:45 PM EDT)Anatomical RegionLaterality ModalityOtherSpecimen (Source)Anatomical Location / LateralityCollection Method / VolumeCollection TimeReceived Time05/18/2024 12:45 PM EDT Narrative 05/18/2024 12:47 PM EDT [facility] ?[address] ? [place] [address] ? Ultrasound Report ? Signed ? Patient: SOURAV,SAMANTHA N ?MR#: [id number] ?? : 1995 ?Acct:[id number] ?? Age/Sex: 29 / F ?ADM Date: 10/17/24 ?? [facility] ? Attending Dr: Scotty Dhillon D.O. ? Ordering Physician: Scotty Dhillon D.O. ?? Date of Service: 05/18/24 ?? Procedure(s): US OB cervical length ?? Accession Number(s): [id number] ? cc: Scotty Dhillon D.O.; Hernán Mccarthy M.D. ? [facility] ? [address] ? [place] [address] ? Patient Name: ?? SAMANTHA BENJAMIN ? MRN: [facility]:[id number] ? date: 1995 ?Sex: F ?? Assigned Patient Location: [facility] ?? Current Patient Location: [facility] ?? Accession/Order Number: [id number] ?? Exam Date: 05/18/2024 ??10:40 ?Report Date: 05/18/2024 ??12:45 ? At the request of: ?? SCOTTY ??JACQUIE ? Procedure: ??US OB cervical length ? EXAMINATION: US OB anatomy, US OB cervical length ? HISTORY: ANATOMY ? COMPARISON: No relevant comparison available. ? TECHNIQUE: Transabdominal sonographic examination was performed for ?? obstetrical ?? and evaluation. ? FINDINGS: ? Number: 1 ?? Heart Rate: 159 bpm H.B. /min ?? Amniotic Fluid Volume: Subjectively normal ?? position: Transverse presentation, transverse lie ?? Placental Location: Anterior, the placental edge is 5.4 cm in the internal ?? cervical os ?? Cervix Length: 4.91 cm , closed ? Normal anatomy: Lateral ventricles, cerebellum, posterior fossa, nose, lips, ?? orbits, four-chamber heart, diaphragm, stomach, kidneys, abdominal cord ?? insertion, bladder, umbilical arteries, extremities ? Nonvisualized: RVOT, LVOT ? Suboptimal visualization, three-vessel cord, spine ? BIOMETRY: ?? BPD: 4.82 cm; 20 weeks 4 days; 73.50 % ?? HC: 18.55 cm; 20 weeks 6 days; 80.70 % ?? AC: 17.28 cm; 22 weeks 2 days; 96.20 % ?? FL: 3.29 cm; 20 weeks 2 days; 52.60 % ?? EFW:433.92 g; 97 %, 15 ounces ?? FL/AC: 19.04 ?? FL/BPD: 68.26 ?? HC/AC: 1.07 ? GESTATIONAL AGE: ?? Age by EDC: 20 weeks 0 days ?? SUSANNA by EDC: 2024-10-05 ? Age by current US: 21 weeks 0 days ?? SUSANNA by current US: 2024-09-28 ? US/US OB cervical length ?? IMPRESSION: ? Suboptimal nonvisualization of anatomy as detailed related to maternal body ?? habitus and position ? Viable intrauterine gestation measuring 20 weeks 0 days ?? Closed cervix measuring 5 cm in length ? *Reference: [facility] Practice Guideline for the performance of Obstetric ?? Ultrasound ?? Examinations, May 02, 2007. ? Electronically authenticated by: IRINEO ??GARRET ?? Date: 05/18/2024 ??12:45 ? Dictated By: ?Irineo Combs M.D. ? Signed By: ?10/17/24 1247 ? DD/ 1245 ? TD/TT: ? Home Organizer: Procedure Note Radiology, Radiologist, MD - 05/18/2024 [place] [address] Ultrasound Report Signed Patient: SAMANTHA BENJAMIN NMR#: [id number] : 1995Acct:[id number] Age/Sex: 29 / FADM Date: 05/18/24 Loc: [facility] Attending Dr: Scotty Dhillon D.O. Ordering Physician: Scotty Dhillon D.O. Date of Service: 05/18/24 Procedure(s): US OB cervical length Accession Number(s): [id number] cc: Scotty Dhillon D.O.; Hernán Mccarthy M.D. The [place] [id number] Patient Name: SAMANTHA BENJAMIN MRN: [id number] date: 1995 Sex: F Assigned Patient Location: [facility] Current Patient Location: [facility] Accession/Order Number: [id number] Exam Date: 05/18/2024 10:40 Report Date: 05/18/2024 12:45 At the request of: SCOTTY DHILLON Procedure: US OB cervical length EXAMINATION: US OB anatomy, US OB cervical length HISTORY: ANATOMY COMPARISON: No relevant comparison available. TECHNIQUE: Transabdominal sonographic examination was performed for obstetrical and evaluation. FINDINGS: Number: 1 Heart Rate: 159 bpm H.B. /min Amniotic Fluid Volume: Subjectively normal position: Transverse presentation, transverse lie Placental Location: Anterior, the placental edge is 5.4 cm in the internal cervical os Cervix Length: 4.91 cm , closed Normal anatomy: Lateral ventricles, cerebellum, posterior fossa, nose,lips, orbits, four-chamber heart, diaphragm, stomach, kidneys, abdominal cord insertion, bladder, umbilical arteries, extremities Nonvisualized: RVOT, LVOT Suboptimal visualization, three-vessel cord, spine BIOMETRY: BPD: 4.82 cm; 20 weeks 4 days; 73.50 % HC: 18.55 cm; 20 weeks 6 days; 80.70 % AC: 17.28 cm; 22 weeks 2 days; 96.20 % FL: 3.29 cm; 20 weeks 2 days; 52.60 % EFW:433.92 g; 97 %, 15 ounces FL/AC: 19.04 FL/BPD: 68.26 HC/AC: 1.07 GESTATIONAL AGE: Age by EDC: 20 weeks 0 days SUSANNA by EDC: 2024-10-05 Age by current US: 21 weeks 0 days SUSANNA by current US: 2024-09-28 US/US OB cervical length IMPRESSION: Suboptimal nonvisualization of anatomy as detailed related to maternalbody habitus and position Viable intrauterine gestation measuring 20 weeks 0 days Closed cervix measuring 5 cm in length *Reference: [facility] Practice Guideline for the performance of Obstetric Ultrasound Examinations, May 02, 2007. Electronically authenticated by: IRINEO COMBS Date: 05/18/2024 12:45 Dictated By: Irineo Combs M.D. Signed By:05/18/24 1247 DD/ 1245 TD/TT: Home Organizer: Authorizing ProviderResult TypeResult StatusCorey Jacquie DOCLINISYNC IMAGINGFinal Result documented in this encounter Visit Diagnoses Not on filedocumented in this encounter Care Teams Team MemberRelationshipSpecialtyStart DateEnd Date Hernán Mccarthy MD [address] [place] [address] PCP - GeneralFamily Medicine02/08/24documented as of this encounter
--- OUTSIDE RECORDS SUMMARY | 2025-06-13 07:40 | XMS_ITS | Encounter Summary ---
Author Organization [facility] Address [address] [place] [address] Care Team Providers Care Finance Lecturer Name Role Phone Hernán Mccarthy MD Primary Care Provider [phone] Encounter Details DateTypeDepartmentCare Team (Latest Contact Info)Vdqxpczzoar22/17/2024Clinisync Result Encounter [facility] External Department Unsolicited Scotty Dhillon, DO [address] [place] [address] Social History Tobacco UseTypesPacks/DayYears UsedDateSmoking Tobacco: Never Assessed CommentsYesSex and Gender InformationValueDate RecordedSex Assigned at BirthNot on fileLegal PjhGzijqc95/15/2023 11:47 PM EDTGender IdentityNot on fileSexual OrientationNot on filedocumented as of this encounter Plan of Treatment Not on file documented as of this encounter Procedures Procedure NamePriorityDate/TimeAssociated DiagnosisCommentsUS OB ANATOMY 05/18/2024 12:45 PM EDT documented in this encounter Results * US OB ANATOMY (05/18/2024 12:45 PM EDT)Anatomical RegionLateralityModality OtherSpecimen (Source)Anatomical Location / LateralityCollection Method / VolumeCollection TimeReceived Time05/18/2024 12:45 PM EDT Narrative 05/18/2024 12:47 PM EDT [facility] ?[address] ? [place] [address] ? Ultrasound Report ? Signed ? Patient: SOURAV,SAMANTHA N ?MR#: [id number] ?? : 1995 ?Acct:[id number] ?? Age/Sex: 29 / F ?ADM Date: 10/17/24 ?? Loc: [facility] ? Attending Dr: Scotty Dhillon D.O. ? Ordering Physician: Scotty Dhillon D.O. ?? Date of Service: 05/18/24 ?? Procedure(s): US OB anatomy ?? Accession Number(s): [id number] ? cc: Scotty Dhillon D.O.; Hernán Mccarthy M.D. ? [facility] ? [address] ? [place] [address] ? Patient Name: ?? SAMANTHA Spence SOURAV ? MRN: [facility]:[id number] ? date: 1995 ?Sex: F ?? Assigned Patient Location: [facility] ?? Current Patient Location: [facility] ?? Accession/Order Number: [id number] ?? Exam Date: 05/18/2024 ??10:40 ?Report Date: 05/18/2024 ??12:45 ? At the request of: ?? SCOTTY ??JACQUIE ? Procedure: ??US OB anatomy ? EXAMINATION: US OB anatomy, US OB [...] by current US: 2024-09-28 ? US/US OB anatomy ?? IMPRESSION: ? Suboptimal nonvisualization of anatomy as detailed related to maternal body ?? habitus and position ? Viable intrauterine gestation measuring 20 weeks 0 days ?? Closed cervix measuring 5 cm in length ? *Reference: [facility] Practice Guideline for the performance of Obstetric ?? Ultrasound ?? Examinations, May 02, 2007. ? Electronically authenticated by: IRINEO ??GARRET ?? Date: 05/18/2024 ??12:45 ? Dictated By: ?Irineo Combs M.D. ? Signed By: ?10/17/24 1247 ? DD/ 1245 ? TD/TT: ? Manager Social Media: Procedure Note Radiology, Radiologist, MD - 05/18/2024 [place] [address] Ultrasound Report Signed Patient: SAMANTHA BENJAMIN NMR#: [id number] : 1995Acct:[id number] Age/Sex: 29 / FADM Date: 05/18/24 Loc: [facility] Attending Dr: Scotty Dhillon D.O. Ordering Physician: Scotty Dhillon D.O. Date of Service: 05/18/24 Procedure(s): US OB anatomy Accession Number(s): [id number] cc: Scotty Dhillon D.O.; Hernán Mccarthy M.D. The [address] [address] Patient Name: SAMANTHA BENJAMIN MRN: [id number] date: 1995 Sex: F Assigned Patient Location: [facility] Current Patient Location: [facility] Accession/Order Number: [id number] Exam Date: 05/18/2024 10:40 Report Date: 05/18/2024 12:45 At the request of: SCOTTY DHILLON Procedure: US OB anatomy EXAMINATION: US OB anatomy, US OB cervical [...] SUSANNA by current US: 2024-09-28 US/US OB anatomy IMPRESSION: Suboptimal nonvisualization of anatomy as detailed related to maternalbody habitus and position Viable intrauterine gestation measuring 20 weeks 0 days Closed cervix measuring 5 cm in length *Reference: [facility] Practice Guideline for the performance of Obstetric Ultrasound Examinations, May 02, 2007. Electronically authenticated by: IRINEO COMBS Date: 05/18/2024 12:45 Dictated By: Irineo Combs M.D. Signed By:05/18/24 1247 DD/ 1245 TD/TT: Manager Social Media: Authorizing ProviderResult TypeResult StatusCorey Jacquie DOCLINISYNC IMAGINGFinal Result documented in this encounter Visit Diagnoses Not on filedocumented in this encounter Care Teams Team MemberRelationshipSpecialtyStart DateEnd Date Hernán Mccarthy MD [address] [place] [address] PCP - GeneralFamily Medicine02/08/24documented as of this encounter
--- OUTSIDE RECORDS SUMMARY | 2025-06-13 07:40 | XMS_ITS | Encounter Summary ---
Author Organization [facility] Address [address] [place] [address] Care Team Providers Care Sales Marketing Coordinator Name Role Phone Hernán Mccarthy MD Primary Care Provider [phone] Encounter Details DateTypeDepartmentCare Team (Latest Contact Info)Krfoudafgvu91/16/2025Clinisync Result Encounter [facility] External Department Unsolicited Scotty Dhillon, DO [address] [place] [address] Social History Tobacco UseTypesPacks/DayYears UsedDateSmoking Tobacco: Never Assessed CommentsYesSex and Gender InformationValueDate RecordedSex Assigned at BirthNot on fileLegal AyiEowjuy93/15/2023 11:47 PM EDTGender IdentityNot on fileSexual OrientationNot on filedocumented as of this encounter Plan of Treatment Not on file documented as of this encounter Procedures Procedure NamePriorityDate/TimeAssociated DiagnosisCommentsUS OB BPP W NON-INGUAE1908/17/2024 11:54 PM EST documented in this encounter Results * US OB BPP W NON-STRESS (08/17/2024 11:54 PM EST)Anatomical Region LateralityModalityOtherSpecimen (Source)Anatomical Location / Laterality Collection Method / VolumeCollection TimeReceived Time08/17/2024 11:54 PM EST Narrative 08/17/2024 11:57 PM EST [facility] ?[address] ? [place] [address] ? Ultrasound Report ? Signed ? Patient: SOURAV,SAMANTHA N ?MR#: [id number] ?? : 1995 ?Acct:[id number] ?? Age/Sex: 29 / F ?ADM Date: 01/16/25 ?? Loc: [facility] ? Attending Dr: Scotty Dhillon D.O. ? Ordering Physician: Scotty Dhillon D.O. ?? Date of Service: 08/17/24 ?? Procedure(s): US OB BPP w non-stress ?? Accession Number(s): [id number] ? cc: Scotty Dhillon D.O.; Hernán Mccarthy M.D. ? [facility] ? [address] ? [place] [address] ? Patient Name: ?? SAMANTHA BENJAMIN ? MRN: [facility]:[id number] ? date: 1995 ?Sex: F ?? Assigned Patient Location: [facility] ?? Current Patient Location: ? Accession/Order Number: [id number] ?? Exam Date: 08/17/2024 ??17:15 ?Report Date: 08/17/2024 ??23:54 ? At the request of: ?? SCOTTY ??JACQUIE ? Procedure: ??US OB BPP w non-stress ? EXAMINATION: US OB BPP w non-stress ? HISTORY:GESTATIONAL DIABETES MELLITUS O24.419 ? COMPARISON: Ultrasound OB biophysical 08/10/2024 ? TECHNIQUE: Ultrasound biophysical profile was performed in the radiology ?? department. ? BREATHING MOVEMENTS: 2 ?? GROSS BODY MOVEMENTS: 2 ?? TONE: 2 ?? QUALITATIVE AMNIOTIC FLUID VOLUME: 2 ? PRESENTATION: Cephalic ?? HEART RATE: 148 bpm ?? AMNIOTIC FLUID VOLUME: 25.1 cm; polyhydramnios ?? GESTATIONAL AGE: 33 weeks 0 days ? US/US OB BPP w non-stress ?? IMPRESSION: ? 1. Total biophysical profile score: 8 ?? 2. Polyhydramnios. ? Electronically authenticated by: PILLO ??DOMINGO ?? Date: 08/17/2024 ??23:54 ? Dictated By: ?Pillo Kern M.D. ? Signed By: ?08/17/242356 ? DD/ 2354 ? TD/TT: ? Multi Disciplined Language Analyst: Procedure Note Radiology, Radiologist, MD - 08/17/2024 [facility] [place] [facility] [address] [place] [address] Ultrasound Report Signed Patient: SAMANTHA BENJAMIN NMR#: [id number] : 1995Acct:[id number] Age/Sex: 29 / FADM Date: 08/17/24 Loc: [facility] Attending Dr: Scotty Dhillon D.O. Ordering Physician: Scotty Dhillon D.O. Date of Service: 08/17/24 Procedure(s): US OB BPP w non-stress Accession Number(s): [id number] cc: Scotty Dhillon D.O.; Hernán Mccarthy M.D. The [place] [id number] Patient Name: SAMANTHA BENJAMIN MRN: [id number] date: 1995 Sex: F Assigned Patient Location: [facility] Current Patient Location: Accession/Order Number: [id number] Exam Date: 08/17/2024 17:15 Report Date: 08/17/2024 23:54 At the request of: CSOTTY DHILLON Procedure: US OB BPP w non-stress EXAMINATION: US OB BPP w non-stress HISTORY:GESTATIONAL DIABETES MELLITUS O24.419 COMPARISON: Ultrasound OB biophysical 08/10/2024 TECHNIQUE: Ultrasound biophysical profile was performed in the radiology department. BREATHING MOVEMENTS: 2 GROSS BODY MOVEMENTS: 2 TONE: 2 QUALITATIVE AMNIOTIC FLUID VOLUME: 2 PRESENTATION: Cephalic HEART RATE: 148 bpm AMNIOTIC FLUID VOLUME: 25.1 cm; polyhydramnios GESTATIONAL AGE: 33 weeks 0 days US/US OB BPP w non-stress IMPRESSION: 1. Total biophysical profile score: 8 2. Polyhydramnios. Electronically authenticated by: PILLO KERN Date: 08/17/2024 23:54 Dictated By: Pillo Kern M.D. Signed By:08/17/242356 DD/ 53 TD/TT: Multi Disciplined Language Analyst: Authorizing ProviderResult TypeResult StatusCorey Jacquie DOCLINISYNC IMAGINGFinal Result documented in this encounter Visit Diagnoses Not on filedocumented in this encounter Care Teams Team MemberRelationshipSpecialtyStart DateEnd Date Hernán Mccarthy MD [address] [place] [phone] PCP - GeneralFamily Medicine02/08/24documented as of this encounter
--- OUTSIDE RECORDS SUMMARY | 2025-06-13 07:40 | XMS_ITS | Encounter Summary ---
Author Organization [facility] Address [address] [place] [address] Care Team Providers Care Front End Application Developer Name Role Phone Hernán Mccarthy MD Primary Care Provider [phone] Encounter Details DateTypeDepartmentCare Team (Latest Contact Info)Ezgndqmufrg20/24/2025Clinisync Result Encounter [facility] Unsolicited Scotty Dhillon, DO [address] [place] [address] Social History Tobacco UseTypesPacks/DayYears UsedDateSmoking Tobacco: Never Assessed CommentsYesSex and Gender InformationValueDate RecordedSex Assigned at BirthNot on fileLegal SfmRfwrak61/15/2023 11:47 PM EDTGender IdentityNot on fileSexual OrientationNot on filedocumented as of this encounter Plan of Treatment Not on file documented as of this encounter Procedures Procedure NamePriorityDate/TimeAssociated DiagnosisCommentsUS OB BPP W NON-YXRYDV1608/25/2024 6:22 AM EST documented in this encounter Results * US OB BPP W NON-STRESS (08/25/2024 6:22 AM EST)Anatomical Region LateralityModalityOtherSpecimen (Source)Anatomical Location / Laterality Collection Method / VolumeCollection TimeReceived Time08/25/2024 6:22 AM EST Narrative 08/25/2024 6:25 AM EST [facility] ?[address] ? [place] [address] ? Ultrasound Report ? Signed ? Patient: SOURAV,SAMANTHA N ?MR#: [id number] ?? : 1995 ?Acct:[id number] ?? Age/Sex: 29 / F ?ADM Date: 01/23/25 ?? Loc: US ? Attending Dr: Scotty Dhillon D.O. ? Ordering Physician: Scotty Dhillon D.O. ?? Date of Service: 08/24/24 ?? Procedure(s): US OB BPP w non-stress ?? Accession Number(s): [id number] ? cc: Scotty Dhillon D.O.; Hernán Mccarthy M.D. ? [facility] ? [address] ? [place] [address] ? Patient Name: ?? SAMANTHA BENJAMIN ? MRN: [facility]:[id number] ? date: 1995 ?Sex: F ?? Assigned Patient Location: ?? Current Patient Location: ? Accession/Order Number: [id number] ?? Exam Date: 08/24/2024 ??17:13 ?Report Date: 08/25/2024 ??06:22 ? At the request of: ?? SCOTTY ??JACQUIE ? Procedure: ??US OB BPP w non-stress ? EXAMINATION: US OB BPP w non-stress ? HISTORY:GESTATIONAL DIABETES MELLITUS O24.419 ? COMPARISON: Ultrasound OB biophysical 08/21/2024 ? TECHNIQUE: Ultrasound biophysical profile was performed in the radiology ?? department. ? BREATHING MOVEMENTS: 2 ?? GROSS BODY MOVEMENTS: 2 ?? TONE: 2 ?? QUALITATIVE AMNIOTIC FLUID VOLUME: 2 ? PRESENTATION: Cephalic ?? HEART RATE: 153 bpm ?? AMNIOTIC FLUID VOLUME: 28.1 cm; greater than 95th percentile. ?? GESTATIONAL AGE: 34 weeks 0 days ? US/US OB BPP w non-stress ?? IMPRESSION: ? 1. Total biophysical profile score: 8 ?? 2. Polyhydramnios; increased since prior study. ? Electronically authenticated by: PILLO ??DOMINGO ?? Date: 08/25/2024 ??06:22 ? Dictated By: ?Pillo Kern M.D. ? Signed By: ?08/25/24 06 ? DD/ 06 ? TD/TT: ? Concrete Block Mason: Procedure Note Radiology, Radiologist, MD - 08/25/2024 The [place] [id number] Ultrasound Report Signed Patient: SAMANTHA BENJAMIN NMR#: [id number] : 1995Acct:[id number] Age/Sex: 29 / FADM Date: 08/24/24 Loc: US Attending Dr: Scotty Dhillon D.O. Ordering Physician: Scotty Dhillon D.O. Date of Service: 08/24/24 Procedure(s): US OB BPP w non-stress Accession Number(s): [id number] cc: Scotty Dhillon D.O.; Hernán Mccarthy M.D. [facility] [place] [id number] Patient Name: SAMANTHA BENJAMIN MRN: [id number] date: 1995 Sex: F Assigned Patient Location: US Current Patient Location: Accession/Order Number: [id number] Exam Date: 08/24/2024 17:13 Report Date: 08/25/2024 06:22 At the request of: SCOTTY DHILLON Procedure: US OB BPP w non-stress EXAMINATION: US OB BPP w non-stress HISTORY:GESTATIONAL DIABETES MELLITUS O24.419 COMPARISON: Ultrasound OB biophysical 08/21/2024 TECHNIQUE: Ultrasound biophysical profile was performed in the radiology department. BREATHING MOVEMENTS: 2 GROSS BODY MOVEMENTS: 2 TONE: 2 QUALITATIVE AMNIOTIC FLUID VOLUME: 2 PRESENTATION: Cephalic HEART RATE: 153 bpm AMNIOTIC FLUID VOLUME: 28.1 cm; greater than 95th percentile. GESTATIONAL AGE: 34 weeks 0 days US/US OB BPP w non-stress IMPRESSION: 1. Total biophysical profile score: 8 2. Polyhydramnios; increased since prior study. Electronically authenticated by: PILLO KERN Date: 08/25/2024 06:22 Dictated By: Pillo Kern M.D. Signed By:08/25/24624 DD/ 1 TD/TT: Concrete Block Mason: Authorizing ProviderResult TypeResult StatusCorey Jacquie DOCLINISYNC IMAGINGFinal Result documented in this encounter Visit Diagnoses Not on filedocumented in this encounter Care Teams Team MemberRelationshipSpecialtyStart DateEnd Date Hernán Mccarthy MD [address] [place] [address] PCP - GeneralFamily Medicine02/08/24documented as of this encounter
--- OUTSIDE RECORDS SUMMARY | 2025-06-13 07:40 | XMS_ITS | CCD ---
Author Organization [facility] CliniSyms Care Team Providers Care Digester Hand Name Role Phone JACQUIE, DR FAJARDO Consulting [...] MIGUEL ÁNGEL, DR HANNA Primary Care Unavailable NAPOLEON, DR IRINEO [place] Consulting Unavailable JACQUIE, DR FAJARDO Attending Unavailable JACQUIE, DR FAJARDO Admitting Unavailable MIGUEL ÁNGEL, DR HANNA Primary Care Unavailable JACQUIE, DR FAJARDO Consulting Unavailable JACQUIE, DR FAJARDO Attending Unavailable JACQUIE, DR FAJARDO Consulting Unavailable MIGUEL ÁNGEL, DR HANNA Primary Care Unavailable JACQUIE, DR FAJARDO Admitting Unavailable JACQUIE, DR FAJARDO Consulting Unavailable PENELOPE BOLANOS Admitting Unavailable DAIANAY, DR HANNA Primary Care [...] DR FAJARDO Admitting Unavailable HOY, DR HANNA [facility] Care Unavailable HOY, DR HANNA Primary Care [...] Pompa Consulting Unavailable MIGUEL ÁNGEL, DR HANNA [facility] Care Unavailable JACQUIE, DR FAJARDO Attending Unavailable JACQUIE, DR FAJARDO Consulting Unavailable JACQUIE, DR FAJARDO Attending Unavailable HOY, DR HANNA [facility] Care Unavailable JACQUIE, DR FAJARDO Admitting Unavailable MD Jacques Del Rosario Primary Care Provider [phone] DO Terry Dudley Emergency Provider [phone] Jacques Del Rosario MD Primary Care Provider [phone] Jacques Del Rosario MD Primary Care Provider [phone] ZHEN DHILLON Referring Unavailable JACQUES DEL ROSARIO M Primary Care Unavailable GERARDO DICKEY Attending Unavailable TERRA LUNDBERG Referring Unavailable HONona, JACQUES M Primary Care Unavailable GREGG FOX Attending Unavailable ZHEN DHILLON Referring Unavailable JACQUES DEL ROSARIO M Primary Care Unavailable JACQUES DEL ROSARIO M Referring Unavailable JACQUES DEL ROSARIO M Primary Care Unavailable TERRA LUNDBERG Attending Unavailable JACQUIE, ZHEN R Referring Unavailable HOY, JACQUES M Primary Care Unavailable SANAM CESAR Attending Unavaila ble MIGUEL ÁNGEL, JACQUES M Referring Unavailable HOY, JACQUES M Primary Care Unavailable SANAM CESAR F Referring Unavaila ble DAIANAY, JACQUES M Primary Care Unavailable IRINEO BUENO Admitting Unavailable BRIAN, IRINEO Jesus Attending Unavailable JACQUES DEL ROSARIO M Primary Care Unavailable DAIANAY, JACQUES M Primary Care Unavailable JACQUIE, ZHEN Attending Unavailable JACQUIE, ZHEN Attending Unavailable NIRMALA, MADISYN Attending Unavailable JACQUIE, ZHEN Attending Unavailable JACQUIE, ZHEN Attending Unavailable NIRMALA, MADISYN Attending Unavailable JACQUIE, ZHEN Attending Unavailable NIRMALA, MADISYN Attending Unavailable JACQUIE, ZHEN Attending Unavailable NIRMALA, MADISYN Attending Unavailable JACQUIE, ZHEN Attending Unavailable NIRMALA, MADISYN Attending Unavailable JACQUIE, ZHEN Attending Unavailable Jacques Del Rosario MD Primary Care Provider [id number] Fely Arizmendi DO Primary Care Provider [phone] Fely Arizmendi DO Attending Provider [phone] Jacques Del Rosraio Primary Care Unavailable Terry Dudley Attending Unavailable Terry Dudley Admitting Unavailable Wolfgang Clark MD Attending Provider Unavailable Jacques Del Rosario MD Primary Care Provider [id number] EzequielFely lopez DO Primary Care Provider [phone] Fely Arizmendi DO Attending Provider [phone] Wolfgang Clark MD Attending Provider Unavailable Medications Current Medications MedicationDrug Class(es)DatesSig (Normalized)Sig (Original)acetaminophen 500 mg oral tablet (1 source)Start: 25-00-6753jgmt 2 tablets by mouth every eight hours acetaminophen (TYLENOL EXTRA STRENGTH) 500 mg tablet Take 2 tablets (1,000 mg total) by mouth every8 (eight) hours. 30 tablet 09/16/2024 Activedocusate sodium 100 mg oral capsule (1 source)Start: 83-00-1933ybnb 1 capsule by mouth in the morning, then take 1 capsule by mouth at bedtimedocusate sodium (COLACE) 100 mg capsule Take 1 capsule (100 mg total) by mouth in the morning and 1capsule (100 mg total) before bedtime. 10 capsule 09/16/2024 Activeibuprofen 800 mg oral tablet (1 source)Nonsteroidal Anti-inflammatory DrugStart: 72-35-7411xvby 1 tablet by mouth every eight hoursibuprofen (MOTRIN) 800 mg tablet Take 1 tablet (800 mg total) by mouth every 8 (eight) hours. 30 tablet 09/16/2024 Activelabetalol hydrochloride 100 mg oral tablet (20 sources)beta-Adrenergic BlockerStart: 38-78-4741iokw 1 tablet by mouth twice dailyLabetalol 100 mg tablet Active 100 MG PO Twice daily 60 30 June 04, 2025 12:00am Complies with drug therapyStart: 08-05-2024 End: 79-76-4895toog 1 tablet by mouth in the morning, then take 1 tablet by mouth in the evening, then take 1 tablet by mouth at bedtimelabetalol (Normodyne) 300 MG tablet Take 1 tablet by mouth in the morning and 1 tablet in the evening and 1 tablet before bedtime. 08/05/2024 08/23/2024 Discontinued (Reorder)Start: 05-01-2024 End: 11-49-4445vwvx 1 tablet by mouth in the morning, then take 1 tablet by mouth in the evening, then take 1 tablet by mouth at bedtimelabetalol (Normodyne) 200 MG tablet Indications: Elevated blood pressure affecting in first trimester, antepartum (HHS-HCC) , High blood pressure affecting in first trimester, antepartum (HHS-HCC) Take 1 tablet (200 mg) by mouth in the morning and 1 tablet (200 mg) in the evening and 1 tablet (200 mg) before bedtime. 270 tablet 06/15/2024 08/14/2024 DiscontinuedStart: 03-02-2024 End: 21-26-7439igii 1 tablet by mouth in the morninglabetalol (Normodyne) 200 MG tablet Indications: Elevated blood pressure affecting in first trimester, antepartum , High blood pressure affecting in first trimester, antepartum Take 1 tablet (200 mg) by mouth in the morning and 1 tablet (200 mg) before bedtime. 60 tablet 6 03/02/2024 ActiveStart: 01-31-2024 End: 78-01-0839pbfk 1 tablet by mouth twice dailyLabetalol 100 mg tablet Discontinued 100 MG PO Twice daily 20 0 January 30, 2024 11:00pm May 18, 2025 8:11amlabetaloL (NORMODYNE) 100 mg tablet Take 3 tablets [...] tablets (200 mg total) in the evening. Activemiscellaneous medical supply misc (5 sources)miscellaneous medical supply misc by miscellaneous route once. Active norethindrone 0.35 mg oral tablet (3 sources)Start: 09-16-2024 End: 40-13-6899buyy 1 tablet by mouth once dailynorethindrone (Micronor) 0.35 MG tablet Indications: 6 weeks follow-up , S/P section Take 1 tablet (0.35 mg) by mouth Daily 28 tablet 11 10/24/2024 10/24/2025 Active omeprazole 20 mg delayed release oral capsule (20 sources)Proton Pump InhibitorStart: 07-14-2024 End: 22-76-7884iply 1 capsule by mouth in the morningomeprazole (PriLOSEC) 20 mg capsule Indications: Gestational diabetes mellitus (GDM), antepartum, ge stational diabetes method of control unspecified Take 1 capsule (20 mg total) by mouth in the morning. 90 capsule 3 07/14/2024 ActiveStart: 06-15-2024 End: 92-59-9906bdeb 1 capsule by mouth once before mealtimeomeprazole (PriLOSEC) [address] capsule Indications: Heartburn during in second trimester ( [facility]-H[facility]) Take 1 capsule (20 mg) by mouth in the morning. Take before meals. Do not crush or chew.. 30 capsule 11 06/15/2024 06/15/2025 ActiveONETOUCH ULTRA2 METER misc (8 sources)Start: 44-52-5317NTYIJMNF ULTRA2 METER misc USE TO CHECK FASTING BLOOD SUGAR BEFORE BREAKFAST & 1 HR AFTER EACH MEAL FOR TOTAL OF 4 TIMES DAILY 07/31/2024 Active Completed/Discontinued Medications MedicationDrug Class(es)DatesSig (Normalized)Sig (Original)aspirin 81 mg delayed release oral tablet (19 sources)Platelet Aggregation Inhibitor, Nonsteroidal Anti-inflammatory Drug End: 78-71-6637xjbu 1 tablet by mouth once dailyaspirin 81 MG EC tablet Take 81 mg by mouth Daily 10/24/2024 DiscontinuedBlood Glucose Monitoring Suppl (D-Care Glucometer) w/Device kit (20 sources)Start: 07-17-2024 End: 49-58-9548Tbbxq Glucose Monitoring Suppl (D-Care Glucometer) w/Device kit Indications: Gestational diabetes mellitus (GDM) in third trimester, gestational diabetes method of control unspecified ([facility]-HCC) , Gestational diabetes mellitus (GDM), antepartum, gestational diabetes method of control unspecified ([facility]) , Elevated glucose tolerance test 1 kit Daily Use four times daily to check FSBS. In the morning prior to breakfast & 1 hour after each meal for a total of 4times daily. 1 kit 07/17/2024 10/24/2024 DiscontinuedStart: 07-17-2024 End: 13-20-5993Nfbwr Glucose Monitoring Suppl (D-Care Glucometer) w/Device kit [...] 1 kit 07/17/2024 10/24/2024 DiscontinuedStart: 07-17-2024 End: 12-01-7618Uxetc Glucose Monitoring Suppl (D-Care Glucometer) w/Device kit [...] 07/17/2024 07/17/2025 Activecephalexin 500 mg oral capsule (9 sources)Cephalosporin AntibacterialStart: 08-05-2024 End: 24-69-4797jzcibiqmpy (Keflex) 500 MG capsule Take 500 mg by mouth in the morning and 500 mg at noon and 500 mg in the evening and 500 mg before bedtime. 08/05/2024 08/29/2024 Discontinuedcitalopram 20 mg oral tablet (20 sources)Serotonin Reuptake InhibitorStart: 10-05-2023 End: 45-93-6619szlb 1 tablet by mouth once dailyCitalopram (Celexa) 20 mg tablet Discontinued 20 MG PO Daily January 30, 2024 11:00pm May 18, 2025 8:30am End: 88-16-1418orof 2 tablets by mouth in the morningcitalopram (CeleXA) 10 mg tablet Take 2 tablets (20 mg total) by mouth in the morning. 07/14/2024 Di scontinued (Reorder)3 ml insulin glargine 100 unt/ml pen injector (20 sources)Insulin AnalogStart: 08-23-2024 End: 22-56-1884yadcrv 10 [IU] by subcutaneous injection at bedtimeinsulin glargine (Lantus SoloStar) 100 UNIT/ML pen Indications: Insulin controlled gestational diabetes mellitus (GDM) during , antepartum Inject 10 Units under the skin at bedtime 3 mL 3 08/23/2024 10/24/2024 DiscontinuedStart: 10-11-3095YITXNM U-100 INSULIN 100 unit/mL injection 0.1 mL (10 Units total) nightly. 08/22/2024 ActiveStart: 08-22-2024 End: 08-39-3180lsfspd 10 [IU] by subcutaneous injection in the eveninginsulin glargine (Lantus) 100 UNIT/ML injection Indications: Hyperglycemia , GESTATIONAL DIABETES Inject 10 Units under the skin in the evening 3 mL 08/22/2024 08/23/2024 Discontinuedisopropyl alcohol 0.7 ml/ml medicated pad (20 sources)Start: 07-17-2024 End: 54-67-7679Ufocfhv Swabs (Alcohol Prep Pad) 70 % pads Indications: Gestational diabetes mellitus (GDM) in third trimester, gestational diabetes method of control unspecified (HHS-HCC) , Gestational diabetes mellitus (GDM), antepartum, gestational diabetes method of control unspecified (HHS-HCC) , Elevated glucose tolerance test Apply 1 Pad topically Daily Use four times daily to check FSBS. 150 each 3 07/17/2024 10/24/2024 DiscontinuedNIFEdipine 10 mg oral capsule (6 sources)Dihydropyridine Calcium Channel BlockerStart: 08-05-2024 End: 41-78-5250aetn 1 capsule by mouth every six hoursNIFEdipine (Procardia) 10 MG capsule Take 10 mg by mouth every 6 (six) hours 08/05/2024 08/22/2024 D iscontinuedondansetron 4 mg oral tablet (11 sources)Serotonin-3 Receptor Antagonist End: 05-07-6040nwck 1 tablet by mouth every eight hours as needed for nausea and vomitingondansetron (ZOFRAN) 4 mg tablet Take 4 mg by mouth every 8 (eight) hours as needed for nausea or vomiting. 09/08/2024 Discontinuedprenatal vits62/FA/om3/dha/epa ( GUMMY ORAL) (11 sources) End: 04-90-9612pzgplqkd vits62/FA/om3/dha/epa ( GUMMY ORAL) Take by mouth. 09/08/2024 Discontinuedprenatal vits62/FA/om3/dha/epa ( GUMMY ORAL) Take by mouth. Active Problems Active Problems Problem ClassificationProblemDateDocumented DateEpisodic/ChronicAnxiety disorders (8 sources)Anxiety disorder, unspecified; Translations: [Generalized anxiety disorder]Onset: 478515-74-4213AevbcrkEtzdyirx mellitus without complication (6 sources)Other abnormal glucose; Translations: [Abnormal glucose tolerance test]Onset: 94-10-9066SlvlnassWzjqgarey hypertension (11 sources)Hypertensive disorder; Translations: [Essential (primary) hypertension]Onset: 511200-30-2093ZfzvrlgUhkbkygoxljq complicating ; childbirth and the puerperium (20 sources)Unspecified pre-existing hypertension complicating , third trimester; Translations: [Pre-existing hypertension with pre-eclampsia, complicating childbirth]Onset: 46-45-0283BeldsevAtbsdsfclsyhj and screening for infectious disease (6 sources)Encounter for screening for human papillomavirus (HPV); Translations: [Patient encounter status]Onset: 825879-22-1119OpdpqdonRmsla complications of ; puerperium affecting management of mother (1 source)Abnormality of heart; Translations: [Anomaly of heart of fetus affecting , antepartum, single or unspecified fetus]24-26-4133Fxzfohsm Other complications of ; puerperium affecting management of mother (1 source)Encounter for delivery without indication; Translations: [Encounter for delivery without indication]Onset: 54-09-7728Yjatzkbv Other complications of (2 sources)Heartburn; Translations: [Other specified related conditions, second trimester]31-75-6859EunsnsinUsbrw complications of (3 sources) ultrasound scan abnormal; Translations: [Abnormal ultrasonic finding on screening of mother]78-65-3297SmsmjmmaZjdlk complications of (1 source)Abnormal ultrasonic finding on screening of mother; Translations: [Abnormal ultrasonic finding on screening of mother] Onset: 96-83-3264RgcdefhcPmnxt complications of (1 source)Maternal care for abnormalities of the heart rate or rhythm, unspecified trimester, not applicable or unspecified; Translations: [Maternal care for abnormalities of the heart rate or rhythm, unspecified trimester, not applicable or unspecified]Onset: 36-26-0015LuvxqmdwNppqc ear and sense organ disorders (6 sources)Eczema of external auditory canal; Translations: [Acute eczematoid otitis externa, bilateral]36-56-8726WodebzhgSiald inflammatory condition of skin (2 sources)Psoriasis; Translations: [Psoriasis, unspecified]77-25-2719Opukold Other nervous system disorders (7 sources)Chronic pain; Translations: [Other chronic pain]01-75-7491Oelkfqz Other nutritional; endocrine; and metabolic disorders (1 source)Body mass index (BMI) 40.0-44.9, adult; Translations: [Body mass index (BMI) 40.0-44.9, adult]Onset: 98-06-8954UdbqhmyHgszs nutritional; endocrine; and metabolic disorders (2 sources)Body mass index 30+ - obesity; Translations: [Obesity, unspecified] 64-32-1494YulielrVgfth and delivery including normal (20 sources)Encounter for care and examination of lactating mother; Translations: [Single live ]Onset: 86-44-1516TvacocmfXqgyn screening for suspected conditions (not mental disorders or infectious disease) (19 sources)Encounter for screening for malignant neoplasm of cervix; Translations: [Encounter for screening for Streptococcus B]Onset: 42-50-7844TozoystxZgzxlikce heart disease (11 sources)Pulmonary hypertension; Translations: [Pulmonary hypertension, unspecified]Onset: 659366-76-4862UgnufpsYtocrcev codes; unclassified (2 sources)35 weeks gestation of ; Translations: [35 WEEKS GESTATION OF ]Onset: 36-93-9737OnbyadkfQhtshnjc codes; unclassified (2 sources)Gestation period, 20 weeks; Translations: [20 weeks gestation of ]09-35-7540ZjrhllmwHgbxxxzi codes; unclassified (2 sources)Gestation period, 24 weeks; Translations: [24 weeks gestation of ]59-75-2838AklpqvdmFdbohvsk codes; unclassified (2 sources)Gestation period, 28 weeks; Translations: [28 weeks gestation of ]48-06-1818NhtniohuMtvhzsnj codes; unclassified (2 sources)Gestation period, 30 weeks; Translations: [30 weeks gestation of ]46-57-3442IouhgfmdJsfledbn codes; unclassified (3 sources)Gestation period, 32 weeks; Translations: [32 weeks gestation of ]44-70-1165OmlqzgwrAckgptyc codes; unclassified (4 sources)Gestation period, 34 weeks; Translations: [34 weeks gestation of ]45-39-2029OgsnnfobKmnzlvvt codes; unclassified (3 sources)Gestation period, 35 weeks; Translations: [35 weeks gestation of ]74-09-6818LwloxiphPluwzryz codes; unclassified (1 source)Pain, unspecified; Translations: [Pain, unspecified]Onset: 09-11-2024 EpisodicResidual codes; unclassified (1 source)32 weeks gestation of ; Translations: [32 weeks gestation of ]Onset: 88-92-2084BuahubezIbetybtm codes; unclassified (7 sources)Family history of lupus -08-2139MquourjxLuohmfctnjbc (1 source)CONTACT W/AND (SUSP) EXPOS COVID-19; Translations: [CONTACT W/AND (SUSP) EXPOS COVID-19]Onset: 72-56-6311Tkzvgqigffzy (1 source)New PatientOnset: 33-64-9071Vjwyucqrbrsn (1 source)elevated blood glucose levelsOnset: 50-50-0589Wlenaqtvaxjn (1 source)Scheduled C-sectionOnset: 78-05-5823Vyzgvxkwxzij (1 source) Observation of PACsOnset: 09-05-2024 Past or Other Problems Problem ClassificationProblemDateDocumented DateEpisodic/ChronicCardiac dysrhythmias (6 sources)Tachycardia; Translations: [Tachycardia, unspecified]Onset: 841410-23-2044IhkrxpvkYmcrngqg or abnormal glucose tolerance complicating ; childbirth; or the puerperium (20 sources)Gestational diabetes mellitus in childbirth, diet controlled; Translations: [Gestational diabetes mellitus in , diet controlled] Onset: 96-95-0715YjmkkzfrLvwyw distress and abnormal forces of labor (1 source)Labor and delivery complicated by stress, unspecified; Translations: [LABOR AND DEL COMP STRESS UNS]Onset: 46-29-8596Chbpjqhz Hypertension complicating ; childbirth and the puerperium (5 sources)Unspecified pre-eclampsia, third trimester; Translations: [Gestational [-induced] hypertension without significant proteinuria, first trimester]Onset: 14-59-4356KjxwowkzYsbgj complications of ; puerperium affecting management of mother (1 source)Deliveries by ; Translations: [Encounter for delivery without indication]Onset: 052734-17-9370DldniqsvVxlok complications of (1 source)Other mental disorders complicating , third trimester; Translations: [OTH MENTAL D/O COMP PREG THIRD TRI]Onset: 50-93-8263FnzytkxwRqdxw complications of (13 sources) condition affecting obstetrical care of mother; Translations: [Maternal care for abnormalities of the heart rate or rhythm, unspecified trimester, not applicable or unspecified]Onset: 871595-55-2943Szaoahzr Other complications of (13 sources) ultrasound scan abnormal; Translations: [Abnormal ultrasonic finding on screening of mother]Onset: 679025-27-3682Yootjbig Other connective tissue disease (3 sources)Other specified soft tissue disorders; Translations: [OTHER SPEC SOFT TISSUE DISORDERS]Onset: 53-26-0358YfzbfcmrVjkyb female genital disorders (2 sources)Vaginal discharge; Translations: [Other specified noninflammatory disorders of vagina]98-10-4141CefnneojDvahv nutritional; endocrine; and metabolic disorders (14 sources)Body mass index 40+ - severely obese; Translations: [Body mass index (BMI) 40.0-44.9, adult]Onset: 06-21-2024 Resolved: 050653-65-2235AaztleqKsyxdcrptuqysy and other problems of amniotic cavity (20 sources)Polyhydramnios; Translations: [Polyhydramnios, unspecified trimester, not applicable or unspecified]Onset: 784193-09-3348Xogoeloa Residual codes; unclassified (1 source)37 weeks gestation of ; Translations: [37 WEEKS GESTATION OF ]Onset: 57-56-6656AtlvsjnoVeuoscis codes; unclassified (1 source)36 weeks gestation of ; Translations: [36 WEEKS GESTATION OF ]Onset: 55-70-4269PkmroiduZeemvowa codes; unclassified (1 source)34 weeks gestation of ; Translations: [34 WEEKS GESTATION OF ]Onset: 81-57-6818GqctqlmuEspazxjl codes; unclassified (1 source)28 weeks gestation of ; Translations: [28 WEEKS GESTATION OF ]Onset: 90-04-0357Uqtvljin Results Test NameValueInterpretationReference RangeFacilityChoriogonadotropin.beta subunit ( test) [Presence] in UrineOrdered By: Fely Arizmendi on 25-85-7932Txfb HCG ( test) Ql (U)NegativeCincinnati Va Medical CenterBasophils Auto (Bld) [#/Vol]Ordered By: Fely Arizmendi on 05-18-2025 Basophils (Bld) [#/Vol]0.1 10 3/uL0.0-0.1FCleveland [facility] Basophils/100 WBC Auto (Bld)Ordered By: Fely Arizmendi on 07-78-0151Ypukruksb/100 WBC (Bld)0.4 %0.2-2.0[facility] CenterCholesterol in LDL Calc [Mass/Vol]Ordered By: Fely Arizmendi on 16-47-0006Pkgvgfjibbm in LDL [Mass/Vol] 146.0 mg/dLCincinnati Va Medical CenterComment on above:<100 mg/dl PJMSTDY962-056 mg/dl NEAR OR ABOVE KLNELJH327-799 mg/dl BORDERLINE KOTG294-881 mg/dl HIGH>190 mg/dl VERY HIGHCholesterol in VLDL Calc [Mass/Vol]Ordered By: Fely Arizmendi on 81-04-1807Dwnnnhvpvkx in VLDL [Mass/Vol]15.2 mg/dLCincinnati Va Medical CenterEosinophils/100 WBC Auto (Bld)Ordered By: Fely Arizmendi on 02-21-4999Vpplkcwzqih/100 WBC (Bld)0.4 %Low0.9-7.0[facility] CenterErythrocyte distribution width Auto (RBC) [Ratio]Ordered By: Fely Arizmendi on 25-10-7920Fjjyfaifsnl distribution width (RBC) [Ratio]14.5 %11.0-15.0 [facility] CenterGlobulin Calc (S) [Mass/Vol]Ordered By: Fely Arizmendi on 16-79-6890Kvlydmhp (S) [Mass/Vol]4.5 g/dLCincinnati Va Medical CenterGlomerular filtration rate (GFR) estimation in non- AmericanOrdered By: Fely Arizmendi on 79-30-0357CWA/1.73 sq M.predicted among non-blacks MDRD (S/P/Bld) [Vol rate/Area]mL/min/{1.73_m2}>=60 mL/min/1.73m 2FCleveland Clinic Mentor HospitalGlucose mean value [Mass/volume] in Blood Estimated from glycated hemoglobinOrdered By: Fely Arizmendi on 83-57-9016Mnokoki glucose Estimated from glycated hemoglobin (Bld) [Mass/Vol]103 mg/dLCincinnati Va Medical Center Hematocrit Auto (Bld) [Volume fraction]Ordered By: Fely Arizmendi on 05-18-2025 Hematocrit (Bld) [Volume fraction]46.0 %36.0-48.0[facility] CenterHemoglobin A1c percentageOrdered By: Fely Arizmendi on 82-10-3838RmJ8i (Bld) [Mass fraction]5.2 %4.5-6.2FCleveland Clinic Mentor HospitalComment on above:ADA RECOMMENDED LIMIT 4.0 - 6.0ADA THERAPEUTIC TARGET < 7.0ACTION SUGGESTED> 7.0Hemoglobin [Mass/volume] in BloodOrdered By: Fely Arizmendi on 01-78-5660Kqdohcqjcb (Bld) [Mass/Vol]15.0 g/dL12.0-16.0[facility] CenterLaboratory - Chemistry and Chemistry - challengeOrdered By: Fely Arizmendi on 15-62-3151Zbglans [Mass/Vol]4.4 g/dL3.4-5.0[facility] CenterALP [Catalytic activity/Vol]119 U/PQwqn70-706RxkkfnoetCincinnati Va Medical CenterALT [Catalytic activity/Vol]28 U/I16-77XtylukhktCincinnati Va Medical CenterAST [Catalytic activity/Vol]12 U/GSuf14-22RmnqjatocCincinnati Va Medical CenterBilirubin [Mass/Vol]0.4 mg/dL0.2-1.0[facility] Calcium [Mass/Vol]9.2 mg/dL8.5-10.1FCleveland Clinic Mentor HospitalChloride [Moles/Vol]103 mmol/J13-678PjilqzfedCincinnati Va Medical CenterCholesterol [Mass/Vol]220 mg/dLHigh<=200C[facility] CenterCholesterol in HDL [Mass/Vol]59 mg/pQ64-72RhhecbqfsCincinnati Va Medical CenterComment on above:> or =60 mg/dl - LOW CARDIOVASCULAR RISK<40 mg/dl - HIGH CARDIOVASCULAR RISKCO2 [Moles/Vol]26.7 mmol/L21.0-32.0[facility] CenterCreatinine [Mass/Vol]0.65 mg/dL0.55-1.02[facility] CenterGFR/1.73 sq M.predicted MDRD (S/P/Bld) [Vol rate/Area]mL/min/{1.73_m2}>=60 mL/min/1.73m 2 [facility] CenterGlucose [Mass/Vol]92 mg/zY62-151EsbppgwkdCincinnati Va Medical CenterPotassium [Moles/Vol]3.7 mmol/L3.5-5.1FCleveland Clinic Mentor HospitalProtein [Mass/Vol]8.9 g/dLHigh6.4-8.2FSelect Medical OhioHealth Rehabilitation Hospital - Dublinodium [Moles/Vol]140 mmol/A176-388AbmhzdwziCincinnati Va [facility] Center Triglyceride [Mass/Vol]76 mg/dL<=150C[facility] CenterTSH Qn0.897 m[IU]/L0.358-3.740[facility] CenterUrea nitrogen [Mass/Vol]11.0 mg/dL7.0-18.0[facility] CenterUrea nitrogen/Creatinine [Mass ratio]16.9 mg/mgCincinnati Va Medical CenterLaboratory - Hematology and Cell countsOrdered By: Fely Arizmendi on 54-98-9615QEX (Bld) [Velocity]61 mm/h High<=20[facility] CenterImmature granulocytes/100 WBC (Bld)0.4 %0.0-0.5FCleveland Clinic Mentor HospitalLeukocytes [#/volume] corrected for nucleated erythrocytes in Blood by Automated counOrdered By: Fely Arizmendi on 34-51-5205LEX corrected for nucl RBC Auto (Bld) [#/Vol]11.5 10 3/uLHigh4.0-11.0 [facility] CenterLymphocytes Auto (Bld) [#/Vol]Ordered By: Fely Arizmendi on 70-81-7019Ntivurlbfyc (Bld) [#/Vol]1.5 10 3/uL1.2-3.8C[facility] CenterLymphocytes/100 WBC Auto (Bld)Ordered By: Fely Arizmendi on 34-17-7024Fnzwfobxlgd/100 WBC (Bld)13.1 %Low20.5-60.0[facility] HospitalH Auto (RBC) [Entitic mass]Ordered By: Fely Arizmendi on 15-25-5238EWJ (RBC) [Entitic mass]26.5 pgLow26.7-34.0[facility] [facility] Auto (RBC) [Mass/Vol]Ordered By: Fely Arizmendi on 77-46-0419AXKC (RBC) [Mass/Vol]32.6 g/dL29.9-35.2FC[facility] Mentor HospitalMCV Auto (RBC) [Entitic vol]Ordered By: Fely Arizmendi on 38-45-1994IRD (RBC) [Entitic vol]81.4 fL81.0-99.0[facility] CenterMicroalbumin [Mass/volume] in UrineOrdered By: Fely Arizmendi on 31-11-2568Jzqrlnz DL <= 20 mg/L (U) [Mass/Vol]mg/dL<=30.0[facility] CenterMonocytes Auto (Bld) [#/Vol]Ordered By: Fely Arizmendi on 69-66-9978Oydeldbed (Bld) [#/Vol]0.6 10 3/uL 0.3-0.8[facility] CenterMonocytes/100 WBC Auto (Bld)Ordered By: Fely Arizmendi on 66-70-9874Enxudlgfs/100 WBC (Bld)5.4 %1.7-12.0[facility] CenterNeutrophils Auto (Bld) [#/Vol]Ordered By: Fely Arizmendi on 25-07-4084Lvqgragwopg (Bld) [#/Vol]9.2 10 3/uLHigh1.4-6.5FC[facility] Mentor HospitalNeutrophils/100 WBC Auto (Bld)Ordered By: Fely Arizmendi on 34-39-1720Obccuehrvap/100 WBC (Bld)80.3 %High43.0-75.0[facility] CenterNo Panel InformationOrdered By: Fely Arizmendi on 85-71-4579Kjkt-Double Strand DNA Jeiujili07 [IU]/mLAbnormal0-9[facility] CenterComment on above:Negative <5 Equivocal 5 - 9 Positive >9Anti-Nuclear Antibody Interpret Comment.[facility] CenterComment on above:Autoantibody Disease Association Conditi on Frequency ---------Antinuclear Antibody, SLE, mixed connectiveDirect (JASWINDER-D) tissue diseases ---------dsDNA SLE 40 - 60% ---------Chromatin Drug induced SLE 90% SLE 48 - 97% ---------SSA (Ro) SLE 25 - 35% Sjogren's Syndrome 40 - 70% Lupus 100% ---------SSB (La) SLE 10% Sjogren's Syndrome 30% ---------Sm (anti-Rivers) SLE 15 - 30% ---------TELEPRINTER Mixed Connective TissueDisease 95%(U1 nRNP, SLE 30 - 50%anti- ribonucleoprotein) Polymyositis and/or Dermatomyositis 20% ---------Scl-70 (antiDNA Scleroderma (diffuse) 20 - 35%topoisomerase) Crest 13% ---------Ashley-1 Polymyositis and/or Dermatomyositis 20 - 40% ---------Centromere B Scleroderma - Crest variant 80%Performed at: [address] [id number] Director: Colt Silva PhD, Phone: [phone]-Bvtsjpvq Protein, Quantitative<0.50 mg/dL<=0.50[facility] CenterEosinophils # (Auto)0.1 10 3/uL0.0-0.7FC[facility] Ment[facility] HospitalImmature Granulocyte # (Auto)0.05 10 3/uLHigh0.00-0.03[facility] CenterMiscellaneous TestCOMMENT.[facility] CenterComment on above:Test Ordered: [id number] Catecholamines, PlasmaNorepinephrine 282 pg/mL BN Reference Range: 115-524Thistest was developed and its performance characteristicsdetermined by [facility]. It has not been cleared orapproved by the Food and Drug Administration.Epinephrine 13.3 pg/mL Reference Range: 0.0-55.4This test was developed and its performance characteristicsdetermined by [facility]. It has not been cleared orapproved by the Food and Drug Administration.Dopamine <10.0 pg/mL Reference Range: 0.0-36.7Catecholamines, Plasma reference intervals based on patientin supine position for at least 20 minutes.This test was developed and its performance characteristicsdetermined by [facility]. It has not been cleared orapproved by the Food and Drug Administration.Performed at: - [address] [id number] Director: Jennifer Mims MD, Phone: [phone] at: [address] [id number] Director: Colt Silva PhD, Phone: [phone] Antibody <0.2 AI0.0-0.9[facility] CenterUrine Random Qazsrpujjj27.40 mg/dL20.00-300.00[facility] CenterPlatelet mean volume Auto (Bld) [Entitic vol]Ordered By: Fely Arizmendi on 15-62-5279Lsmmfskn mean volume (Bld) [Entitic vol]10.8 fL9.5-13.5FCleveland Clinic Mentor HospitalPlatelets Auto (Bld) [#/Vol]Ordered By: Fely Arizmendi on 06-50-2723Vkiqjhqnw (Bld) [#/Vol] 343 10 3/iB498-376VthqrumnmCincinnati Va Medical CenterRBC Auto (Bld) [#/Vol]Ordered By: Fely Arizmendi on 39-96-2542SGX (Bld) [#/Vol]5.65 10 6/uLHigh4.20-5.40 [facility] CenterRenin activityOrdered By: Fely Arizmendi on 90-01-1889Wpxta (P) [Catalytic activity/Vol]1.265 ng/mL/hr0.167-5.380[facility] CenterComment on above:This test was developed and its performance characteristicsdetermined by [facility]. It has not been cleared orapproved by the Food and Drug Administration.Performed at: [facility] [place] [id number] Director: Jennifer Mims MD, Phone: [phone] Sjogrens syndrome-A extractable nuclear antibody assay (units/volume)Ordered By: Fely Arizmendi on 67-25-5653Jpprgqwc syndrome-A extractable nuclear Ab Qn (S)<0.2 AI0.0-0.9[facility] Serum Sjogrens syndrome-B extractable nuclear antibody assay (units/volume) Ordered By: Fely Arizmendi on 40-36-9357Ncwuvlqd syndrome-B extractable nuclear Ab Qn (S)<0.2 AI0.0-0.9[facility] Clinicerum Rivers extractable nuclear antigen (CRIS) antibody assay (units/volume)Ordered By: Fely Arizmendi on 91-62-8797Jelpt extractable nuclear Ab Qn (S)0.2 AI0.0-0.9[facility] Clinicerum or plasma albumin/globulin mass ratioOrdered By: Fley Arizmendi on 46-76-0543Dfgkphc/Globulin [Mass ratio]1.0 {ratio}[facility] Clinicerum or plasma aldosterone measurement (mass/volume)Ordered By: Fely Arizmendi on 92-87-4569Pvvferdggtp [Mass/Vol]6.0 ng/dL0.0-30.0[facility] CenterComment on above:This test was developed and its performance characteristicsdetermined by [facility]. It has not been cleared orapproved by the Food and Drug Administration.Performed at: [facility] [id number] Director: Jennifer Mims MD, Phone: [phone] or plasma anion gap determinationOrdered By: Fely Arizmendi on 44-30-0318Lybvl gap [Moles/Vol]14.0 mmol/LFSelect Medical OhioHealth Rehabilitation Hospital - Dublinerum or plasma free cefuroxime measurement (mass/volume)Ordered By: Fely Arizmendi on 87-94-8768Vpamjfyrps free [Mass/Vol]PositiveAbnormalNegative [facility] Clinicerum or plasma rheumatoid factor measurement (units/volume)Ordered By: Fely Arizmendi on 62-89-0088Mhgcnwemyf factor Qn[IU]/mL <14.0[facility] CenterComment on above:Performed at: - [facility] [id number] Director: Colt Silva PhD, Phone: [phone] or plasma total cholesterol/high density lipoprotein (HDL) cholesterol mass ratOrdered By: Fely Arizmendi on 05-18-2025 Cholesterol.total/Cholesterol in HDL [Mass ratio]3.7 {ratio}[facility] CenterComment on above:3.3 - 4.4 LOW RISK4.4 - 7.1 AVERAGE RISK7.1 - 11.0 MODERATE RISK>11.0 HIGH RISKHCG ( test) Ql (U)on 10-24-2024 Interpretation and review of laboratory resultsNormalNOMS HealthcarePreg Test, UrNegativeNegativeNOMS HealthcareNOMS HealthcareCBC AND AUTO DIFFon 09-16-2024 ABSOLUTE BASOPHIL0.1 X10E9/LNormal0.0-0.2PMercy Health West HospitalComment on above:Performed By: #### CBC, CMP, 2532-0, 3084-1, 42525-4 #### [facility] ([id number]) [address], [address] [place], [place] [address]CHFQNTOJ CFSXUOTIRW47.8 X10E9/LHigh1.5-6.6ProCleveland Clinic Akron GeneralComment on above:Performed By: #### CBC, CMP, 2532-0, 3084-1, 83292-1 #### [facility] ([id number]) [address], [address] [place], [place] [address]Myzhaiwxo/100 WBC (Bld)0.7 %NormalProCleveland Clinic Akron General Comment on above:Performed By: #### CBC, CMP, 2532-0, 3084-1, 40069-1 #### [facility] ([id number]) [address], [address] [address]Ywjpyfdbsoi (Bld) [#/Vol]0.1 10*3/uLNormal0.0-0.4ProWright-Patterson Medical Center HospitalComment on above:Performed By: #### CBC, CMP, 2532-0, 3084-1, 92684-0 #### [facility] ([id number]) [address], [facility] [address] [place], [place] [address]Ueoojfrmqgg/100 WBC (Bld)0.6 %NormalSelect Medical Specialty Hospital - [facility] Comment on above:Performed By: #### CBC, CMP, 2532-0, 4-1, 19899-9 #### [facility] ([id number]) [address], [address] [address]Pyiwxwasvgm distribution width (RBC) [Ratio]14.0 %Normal 11.5-15.0ProCleveland Clinic Akron GeneralComment on above:Performed By: #### CBC, CMP, 2532-0, 4-1, 17986-8 #### [facility] ([id number]) [address] [address]Rpaqmlmccd (Bld) [Volume fraction]24.5 %Cwo81-36IjjFpyfviCleveland Clinic Akron GeneralComment on above:Performed By: #### CBC, CMP, 2532-0, 3084-1, 34324-5 #### [facility] ([id number]) [address] [address]Xgiqonxfqo (Bld) [Mass/Vol]8.4 g/dLLow11.7-15.5ProMedHolzer Health System HospitalComment on above:Performed By: #### CBC, CMP, 2532-0, 3084-1, 61447-2 #### [facility] ([id number]) [address], [address] [place], [place] [address]Rtgcczwtrnc (Bld) [#/Vol]1.6 10*3/uLNormal1.0-3.5ProMedica Shacklefords HospitalComment on above:Performed By: #### CBC, CMP, 2532-0, 4-1, 01467-1 #### [facility] ([id number]) [address], [address] [place], [place] [address]Hdsayofdyyd/100 WBC (Bld)10.5 %NormalProWright-Patterson Medical Center Hospital Comment on above:Performed By: #### CBC, CMP, 2532-0, 4-1, 63387-6 #### [facility] ([id number]) [address], [address] [place], [place] [address]XLL (RBC) [Entitic mass]29.6 qmWzvbpi13-24YylHhwhdn [place] HospitalComment on above:Performed By: #### CBC, CMP, 2532-0, 4-1, 78579-2 #### [facility] ([id number]) [address], [address] [place], [place] [address]JHEP (RBC) [Mass/Vol]34.3 g/wQRilvbe30-95QgwGmpabm [place] HospitalComment on above:Performed By: #### CBC, CMP, 2532-0, 4-1, 89525-0 #### [facility] ([id number]) [address], [address] [place], [place] [address]BOI (RBC) [Entitic vol]86 xSYjgrxb75-809NrbKsbmbe [place] HospitalComment on above:Performed By: #### CBC, CMP, 2532-0, 4-1, 80295-9 #### [facility] ([id number]) [address], [address] [place], [place] [address]Wdezdesuw (Bld) [#/Vol]1.2 10*3/uLHigh0-0.9[facility] Hospital - ColumbusComment on above:Performed By: #### CBC, CMP, 2532-0, 3084-1, 86839-9 #### [facility] ([id number]) [address], [address] [place], [place] [address]Intwxytix/100 WBC (Bld)7.3 %NormalSelect Medical Specialty Hospital - [facility] Comment on above:Performed By: #### CBC, CMP, 2532-0, 3084-1, 72844-2 #### [facility] ([id number]) [address], [address] [place], [place] [address]Tauyaellxmg/100 WBC (Bld)80.9 %NormalSelect Medical Specialty Hospital - [place] Comment on above:Performed By: #### CBC, CMP, 2532-0, 4-1, 03464-3 #### [facility] ([id number]) [address], [address] [place], [place] [address]Qwiijcbd mean volume (Bld) [Entitic vol]9.8 fLNormal7-12 [facility] Hospital - ColumbusComment on above:Performed By: #### CBC, CMP, 2532-0, 4-1, 89842-0 #### [facility] ([id number]) [address], [address] [place], [place] [address]Sbxeaaobe (Bld) [#/Vol]192 10*3/qYGwladk464-623QtnYhbvkj [place] HospitalComment on above:Performed By: #### CBC, CMP, 2532-0, 3084-1, 19681-3 #### [facility] ([id number]) [address], [address] [place], [place] [address]BXD COUNT2.85 X10E12/LLow3.80-5.20[facility] Comment on above:Performed By: #### CBC, CMP, 2532-0, 3084-1, 78772-3 #### [facility] ([id number]) [address], [address] [place], [place] [address]RQP (Bld) [#/Vol]15.8 10*3/uLHigh4.0-11.0ProParkview Health Bryan Hospitalca Shacklefords HospitalComment on above:Performed By: #### CBC, CMP, 2532-0, 3084-1, 49013-1 #### [facility] ([id number]) [address], [address] [place], [place] [address]BLX AND AUTO DIFFon 92-19-7736UNSCXIKS BASOPHIL0.1 X10E9/LNormal 0.0-0.2ProMedica [facility]acklefords HospitalComment on above:Performed By: #### CBC, CMP, 2532-0, 4-1, 48675-4 #### [facility] ([id number]) [address], [address] [place], [place] [address]KQYUVDJI JGNQXHUDKE23.1 X10E9/LHigh1.5-6.6ProWright-Patterson Medical Center HospitalComment on above:Performed By: #### CBC, CMP, 2-0, 4-1, 01577-2 #### [facility] ([id number]) [address], [address] [place], [place] [address]Oonldqcmm/100 WBC (Bld)0.3 %NormalProWright-Patterson Medical Center Hospital Comment on above:Performed By: #### CBC, CMP, 2532-0, 4-1, 87928-7 #### [facility] ([id number]) [address], [address] [place], [place] [address]Yceurenbknc (Bld) [#/Vol]0.0 10*3/uLNormal0.0-0.4ProParkview Health Bryan Hospitalca [facility]lefords HospitalComment on above:Performed By: #### CBC, CMP, 2532-0, 3084-1, 43760-2 #### [facility] ([id number]) [address] [address] [place], [place] [address]Ubhhpfgwkcm/100 WBC (Bld)0.1 %NormalAshtabula General Hospital Hospital Comment on above:Performed By: #### CBC, CMP, 2532-0, 3084-1, 94558-3 #### [facility] ([id number]) [address] [address] [place], [place] [address]Xhpzqmhixuh distribution width (RBC) [Ratio]13.8 %Normal 11.5-15.0ProWright-Patterson Medical Center HospitalComment on above:Performed By: #### CBC, CMP, 2532-0, 4-1, 95043-7 #### [facility] ([id number]) [address] [address] [place], [place] [address]Lhbuujhaqc (Bld) [Volume fraction]25.9 %Dph14-38JcsRvdyyd [place] HospitalComment on above:Performed By: #### CBC, CMP, 2532-0, 4-1, 78775-0 #### [facility] ([id number]) [address] [address] [place], [place] [address]Oirjdkunnd (Bld) [Mass/Vol]8.9 g/dLLow11.7-15.5ProMedHolzer Health System HospitalComment on above:Performed By: #### CBC, CMP, 2532-0, 4-1, 91626-7 #### [facility] ([id number]) [address] [address] [place], [place] [address]Coovspqqmem (Bld) [#/Vol]1.3 10*3/uLNormal1.0-3.5PUniversity Hospitals Health System HospitalComment on above:Performed By: #### CBC, CMP, 2532-0, 3084-1, 99306-2 #### [facility] ([id number]) [address] [address] [place], [place] [address]Ceitabnnrwg/100 WBC (Bld)7.1 %NormalProParkview Health Bryan Hospitalca [facility] Comment on above:Performed By: #### CBC, CMP, 2532-0, 3084-1, 90877-4 #### [facility] ([id number]) [address], [address] [place], [place] [address]FGB (RBC) [Entitic mass]29.7 ldZvajch62-82FylTquofs [place] HospitalComment on above:Performed By: #### CBC, CMP, 2532-0, 3084-1, 49489-9 #### [facility] ([id number]) [address], [address] [place], [place] [address]SVTN (RBC) [Mass/Vol]34.3 g/sJBnzwur16-97IbzTxiwmj [place] HospitalComment on above:Performed By: #### CBC, CMP, 2532-0, 4-1, 13055-5 #### [facility] ([id number]) [address], [address] [place], [place] [address]UMD (RBC) [Entitic vol]86 fRCoblwh44-049WybResboy [place] HospitalComment on above:Performed By: #### CBC, CMP, 2532-0, 4-1, 23842-2 #### [facility] ([id number]) [address], [address] [place], [place] [address]Dkbrdzbox (Bld) [#/Vol]1.5 10*3/uLHigh0-0.9ProWright-Patterson Medical Center HospitalComment on above:Performed By: #### CBC, CMP, 2532-0, 3084-1, 81975-1 #### [facility] ([id number]) [address], [address] [place], [place] [address]Npranjrqb/100 WBC (Bld)8.4 %NormalSelect Medical Specialty Hospital - [facility] Comment on above:Performed By: #### CBC, CMP, 2532-0, 3084-1, 17095-3 #### [facility] ([id number]) [address], [address] [place], [place] [address]Iedeodfxgjj/100 WBC (Bld)84.1 %NormalSelect Medical Specialty Hospital - [place] Comment on above:Performed By: #### CBC, CMP, 2532-0, 3084-1, 19978-2 #### [facility] ([id number]) [address], [address] [place], [place] [address]Ndekdiqu mean volume (Bld) [Entitic vol]9.4 fLNormal7-12 [facility] Health Washington TownshipComment on above:Performed By: #### CBC, CMP, 2532-0, 4-1, 77762-3 #### [facility] ([id number]) [address], [address] [place], [place] [address]Gmfpiuvdz (Bld) [#/Vol]195 10*3/fCBfbszz978-164GogFmioov [place] HospitalComment on above:Performed By: #### CBC, CMP, 2532-0, 3084-1, 70833-0 #### [facility] ([id number]) [address], [address] [place], [place] [address]PJE COUNT3.00 X10E12/LLow3.80-5.20[facility] Comment on above:Performed By: #### CBC, CMP, 2532-0, 3084-1, 42562-6 #### [facility] ([id number]) [address], [address] [place], [place] [address]AJP (Bld) [#/Vol]18.0 10*3/uLHigh4.0-11.0[facility] Hospital - ColumbusComment on above:Performed By: #### CBC, CMP, 2532-0, 3084-1, 56124-4 #### [facility] ([id number]) [address], [address] [place], [place] [address]HCAKYHUES/GC PCR, Uon 75-47-0447GWKIOKSZY/GC PCR, UCHLAMYDIA PCR, U Negative (qualifier value) Chlamydia trachomatis not detected by nucleic acid amplification. This does not exclude the possibility of infection because results are dependent on adequate specimen collection. GONORRHOEAE PCR, U Negative (qualifier value) Neisseria gonorrhoeae not detected by nucleic acid amplification. This does not exclude the possibility of infection because results are dependent on adequate specimen collection.NormalProWright-Patterson Medical Center HospitalComment on above:Performed By: #### CGUPCR #### [facility] ([id number]) [address] [address]CIXAZORT BLOOD COUNTon 99-92-3883Tmyoqlkirag distribution width (RBC) [Ratio]13.6 %Emlele50.5-15.0[facility] Hospital - ColumbusComment on above: Performed By: #### CBC, CMP, 2532-0, 3084-1, 00194-4 #### [facility] ([id number]) [address], [address] [address]Sgzfyvwbcc (Bld) [Volume fraction]39.0 %Kashkk78-83DwmGdhljc [place] HospitalComment on above:Performed By: #### CBC, CMP, 2532-0, 3084-1, 75172-8 #### [facility] ([id number]) [address] [address]Yblhqcnrfl (Bld) [Mass/Vol]13.2 g/fCEzbdcm72.7-15.5ProMedica [facility]lefords HospitalComment on above:Performed By: #### CBC, CMP, 2532-0, 3084-1, 07832-4 #### [facility] ([id number]) [address] [address]BOO (RBC) [Entitic mass]28.9 hsLjwdda22-14IkkQolpjg [place] HospitalComment on above:Performed By: #### CBC, CMP, 2532-0, 3084-1, 14120-5 #### [facility] ([id number]) [address], [address] [place], [place] [address]GHZP (RBC) [Mass/Vol]33.9 g/qTBcizvv99-94SyzPcxqel [place] HospitalComment on above:Performed By: #### CBC, CMP, 2532-0, 3084-1, 48431-5 #### [facility] ([id number]) [address], [address] [place], [place] [address]GLC (RBC) [Entitic vol]85 uEEfrsot07-979HuzSspnzr [facility]fords HospitalComment on above:Performed By: #### CBC, CMP, 2532-0, 4-1, 76986-5 #### [facility] ([id number]) [address], [address] [place], [place] [address]Apqlprps mean volume (Bld) [Entitic vol]9.4 fLNormal7-12 [facility] HospitalComment on above:Performed By: #### CBC, CMP, 2532-0, 4-1, 19261-2 #### [facility] ([id number]) [address], [address] [place], [place] [address]Jjpyyiahv (Bld) [#/Vol]242 10*3/dPLzovsv556-271EypUopkst [facility]fords HospitalComment on above:Performed By: #### CBC, CMP, 2532-0, 4-1, 95081-3 #### [facility] ([id number]) [address], [address] [place], [place] [address]DHF COUNT4.57 X10E12/LNormal3.80-5.20[facility] Comment on above:Performed By: #### CBC, CMP, 2532-0, 3084-1, 69791-5 #### [facility] ([id number]) [address], [address] [place], [place] [address]CTX (Bld) [#/Vol]16.2 10*3/uLHigh4.0-11.0Pro[facility] HospitalComment on above:Performed By: #### CBC, CMP, 2532-0, 3084-1, 71191-1 #### [facility] ([id number]) [address], [address] [place], [place] [address]FGBBLYUOWRNDW METABOLIC PANELon 17-91-7859Mpgoeeh [Mass/Vol]3.6 g/dLNormal3.2-5.3Pro[facility] HospitalComment on above:Performed By: #### JENIFER, CMP, 2532-0, 3084-1, 72805-2 #### [facility] ([id number]) [address], [address] [place], [place] [address]KZJ [Catalytic activity/Vol]213 U/UHway31-899CylYytdfa [facility]ñ[place] HospitalComment on above:Performed By: #### JENIFER, CMP, 2532-0, 3084-1, 79766-0 #### [facility] ([id number]) [address], [address] [place], [place] [address]SDR [Catalytic activity/Vol]18 U/LNormal0-31[facility] HospitalComment on above:Performed By: #### JENIFER, CMP, 2532-0, 3084-1, 72607-5 #### [facility] ([id number]) [address], [address] [place], [place] [address]Escha gap [Moles/Vol]11 mmol/LNormal5-15[facility] HospitalComment on above:Performed By: #### CBC, CMP, 2532-0, 3084-1, 96424-1 #### [facility] ([id number]) [address], [address] [place], [place] [address]VUF [Catalytic activity/Vol]13 U/LNormal0-41[facility] HospitalComment on above:Performed By: #### CBC, CMP, 2532-0, 3084-1, 24288-4 #### [facility] ([id number]) [address], [address] [place], [place] [address]Jofkcilyy [Mass/Vol]0.5 mg/dLNormal0.3-1.2ProMedHolzer Health System HospitalComment on above:Performed By: #### JENIFER, CMP, 2532-0, 3084-1, 12522-2 #### [facility] ([id number]) [address], [address] [place], [place] [address]Ilztdzj [Mass/Vol]9.1 mg/dLNormal8.5-10.5ProMedHolzer Health System HospitalComment on above:Performed By: #### JENIFER, CMP, 2532-0, 4-1, 57693-2 #### [facility] ([id number]) [address], [address] [place], [place] [address]Jvuvuwsb [Moles/Vol]101 mmol/SBxzrld48-951UvjWeksel [facility]lefords HospitalComment on above:Performed By: #### JENIFER, PRINCESS, 2-0, 4-1, 73099-7 #### [facility] ([id number]) [address], [address] [place], [place] [address]FA0 [Moles/Vol]24 mmol/JZrcyqi44-33OwcErtvbv [facility] Comment on above:Performed By: #### JENIFER, CMP, 2532-0, 4-1, 47775-1 #### [facility] ([id number]) [address], [address] [place], [place] [address]Bgsgvtggob [Mass/Vol]0.44 mg/dLNormal0.40-1.00ProMedica Nuñez HospitalComment on above:Result Comment: METHOD TRACEABLE TO IDMS STANDARD Performed By: #### JENIFER, CMP, 2532-0, 3084-1, 74243-4 #### [facility] ([id number]) [address], [address] [place], [place] [address]oYTS (CKD-EPI) NON-RACE DEPENDENT>90Normal>59ProCleveland Clinic Akron GeneralComment on above:Result Comment: Reported eGFR is based on the CKD-EPI 2020 equation that does not use a race coefficient.Performed By: #### PRINCESS BURGESS, 2532-0, 3084-1, 04043-8 #### [facility] ([id number]) [address] [facility] [address] [place], [place] [address]Yekzgzd [Mass/Vol]79 mg/cHGdxxpz33-75IomTynvhmSelect Medical Specialty [facility] Comment on above:Performed By: #### PRINCESS BURGESS, 2-0, 4-1, 12659-0 #### [facility] ([id number]) [address] [address]Lbjxzbsez [Moles/Vol]3.9 mmol/LNormal3.5-5.0ProCleveland Clinic Akron GeneralComment on above:Performed By: #### PRINCESS BURGESS, 2532-0, 4-1, 92066-8 #### [facility] ([id number]) [address] [address]Xdsviqt [Mass/Vol]6.2 g/dLNormal6.0-8.0[facility] Comment on above:Performed By: #### PRINCESS BURGESS, 2532-0, 4-1, 16086-6 #### [facility] ([id number]) [address] [address] [place], [place] [address]Ipngxl [Moles/Vol]136 mmol/MWjeoaw835-377YbdAimpee [place] HospitalComment on above:Performed By: #### PRINCESS BURGESS, 2532-0, 4-1, 04769-8 #### [facility] ([id number]) [address] [address] [place], [place] [address]Hgsx nitrogen [Mass/Vol]5 mg/dLNormal5-23ProWright-Patterson Medical Center HospitalComment on above:Performed By: #### CBC, CMP, 2532-0, 3084-1, 47926-2 #### [facility] ([id number]) [address] [facility], [address] [place], [place] [address]WPET ARTERIAL GASon 27-32-3646VBNIT'S TESTNormalProMedica Nuñez HospitalComment on above:Performed By: #### CRDA #### [facility] ([id number]) [address] [place], [place] [address]OYVI,DEFICIT2.0 MMOL/LNormal0.0-2.0ProParkview Health Bryan Hospitalca [facility] Comment on above:Performed By: #### CRDA #### [facility] ([id number]) [address] [place], [place] [address]FKU5 (Bld) [Moles/Vol]27.4 mmol/FSqzt63-95WbsWdmgsw Nuñez HospitalComment on above:Performed By: #### CRDA #### [facility] ([id number]) [address] [place], [place] [address]Ytalmq (Bld) [Partial pressure]9 mm[Hg]Bqu69-72KmlZqnvyi [facility]lefords HospitalComment on above:Performed By: #### CRDA #### [facility] ([id number]) [address] [place], [place] [address]Dalksp saturation in Blood6.0 %Low7.1-39.5ProMedica [facility]lefords HospitalComment on above:Performed By: #### CRDA #### [facility] ([id number]) [address], [place] [address]RHROYF SOURCERoomAirNormalProMedica Nuñez HospitalComment on above:Performed By: #### CRDA #### [facility] ([id number]) [address], [place] [address]CXE716.8 STPWUdmt37.8-57.6ProMedica Nuñez HospitalComment on above:Performed By: #### CRDA #### [facility] ([id number]) [address], [place] [address]pC (Bld)7.254 [pH]Normal7.24-7.30Pro[facility] Comment on above:Performed By: #### CRDA #### [facility] ([id number]) [address], [place] [address]VSOMGK SITEArtCordNormalProMedica Nuñez HospitalComment on above:Performed By: #### CRDA #### [facility] ([id number]) [address], [place] [address]GCFCQC TYPEUMBILICALCORDNormalProMedica Nuñez HospitalComment on above:Performed By: #### CRDA #### [facility] ([id number]) [address], [place] [address]URFA VENOUS GASon 56-24-7168PODBC' TESTNormalProMedica Shacklefords HospitalComment on above:Performed By: #### CRDV #### [facility] ([id number]) [address], [place] [address]Makz excess Calc (Bld) [Moles/Vol]0.0 mmol/LNormal0.0-2.0 ProMedica Nuñez HospitalComment on above:Performed By: #### CRDV #### [facility] ([id number]) [address], [place] [address]AJG2 (Bld) [Moles/Vol]27.0 mmol/LHigh20.0-24.0ProMedica Nuñez HospitalComment on above:Performed By: #### CRDV #### [facility] ([id number]) [address], [place] [address]Wchpqf (Bld) [Partial pressure]14 mm[Hg]Mqm13-78WyyQvrttl Nuñez HospitalComment on above:Performed By: #### CRDV #### [facility] ([id number]) [address], [place] [address]Jjzkpv saturation in Blood16.0 %Low32.5-66.3ProMedFulton County Health CenterComment on above:Performed By: #### CRDV #### [facility] ([id number]) [address], [place] [address]WVMECA SOURCERoomAirNormalProWright-Patterson Medical Center HospitalComment on above:Performed By: #### CRDV #### [facility] ([id number]) [address], [place] [address]LRH145.2 LLICGjne45.6-43.8ProCleveland Clinic Akron GeneralComment on above:Performed By: #### CRDV #### [facility] ([id number]) [address], [place] [address]mA (Bld)7.330 [pH]Normal7.25-7.37[facility] Comment on above:Performed By: #### CRDV #### [facility] ([id number]) [address], [place] [address]OWNNLQ SITEVenCordNormalAshtabula General Hospital HospitalComment on above:Performed By: #### CRDV #### [facility] ([id number]) [address], [place] [address]VPPKTN TYPEUMBILICALCORDNormalProWright-Patterson Medical Center HospitalComment on above:Performed By: #### CRDV #### [facility] ([id number]) [address], [place] [address]EZLI SCREEN, URINEon 02-90-5008UNGXKXUKWRJ/METHAMPNegativeNormal NEGSelect Medical Specialty Hospital - ColumbusComment on above:Result Comment: AMPH/METH screening cut off = 1000 ng/mLPerformed By: #### NERY OMALLEY #### [facility] ([id number]) [address] [place], [place] [address]YMHKEADGVEOGGbhfuhdmVnwjhgILORuuRodzqa Nuñez HospitalComment on above:Result Comment: Barbiturates screening cut off value = 200 ng/mLPerformed By: #### LYSSA, JOEU #### [facility] ([id number]) [address] [place], [place] [address]RBVWFCQDKGSVTSOZuckiotnMmiswvITTZizJzlqtv Nuñez HospitalComment on above:Result Comment: Benzodiazepines screening cut off value = 200 ng/mL Performed By: #### LYSSA, JOEU #### [facility] ([id number]) [address] [place], [place] [address]YUDCWVNAFBAKSqvelblqTtweufWMMJlxNigwaw Nuñez HospitalComment on above:Result Comment: Cannabinoids/THC screening cut off value = 50 ng/mL Performed By: #### JOE OMALLEYU #### [facility] ([id number]) [address], [address] [place], [place] [address]BTXJAWZ METABOLITENegativeNormalNEGProParkview Health Bryan Hospitalca [facility] Comment on above:Result Comment: Cocaine screening cut off value = 300 ng/mL Performed By: #### LYSSA, JOEU #### [facility] ([id number]) [address] [place], [place] [address]IFBGDZGAootfwsjZahitmkuRACJihBcbwcm Nuñez HospitalComment on above:Result Comment: Interference from Buproprion or Labetalol may cause a positive result, confirmation available upon request. Ecstasy screening cut off value = 500 ng/mL This report is intended for use in clinical monitoring or management of patients.Performed By: #### JOE OMALLEYU #### [facility] ([id number]) [address] [place], [place] [address]WCEDKYDXJXjdijxksWxqoqvQHJNedXlpfxg Nuñez HospitalComment on above:Result Comment: Methadone screening cut off value = 300 ng/mL.Performed By: #### JOE OMALLEYU #### [facility] ([id number]) [address] [facility], [address] [place], [place] [address]LTFZOBESanhrtwhCzxqgsLQBItcBqsxah Shacklefords HospitalComment on above:Result Comment: Opiates screening cut off value = 300 ng/mL NOTE: This test is used for the detection of codeine, hydrocodone (>1000 ng/mL), morphine and hydromorphone (>900 ng/mL) in urine.Performed By: #### JOE OMALLEYU #### [facility] ([id number]) [address] [facility], [address] [place] [address]NHEORGVKRClfsjwheLfaruhSSYGkxTcacae [facility] Health Washington TownshipComment on above:Result Comment: Oxycodone screening cut off value = 300 ng/mL NOTE: This test is used for the detection of oxycodone and oxymorphone in urine.Performed By: #### NERY OMALLEY #### [facility] ([id number]) [address] [facility], [address] [place], [place] [address]BALBGURFJZCDDTwuknghwTselgiWRLUxvYevyau Shacklefords HospitalComment on above:Result Comment: Phencyclidine screening cut off value = 25 ng/mL Performed By: #### NERY OMALLEY #### [facility] ([id number]) [address] [facility], [address] [place] [address]EAC [Catalytic activity/Vol]on 31-94-6124PYG877 U/RGzrquk681-485 [facility]lefords HospitalComment on above:Performed By: #### CBC, CMP, 2532-0, 3084-1, 89848-3 #### [facility] ([id number]) [address] [facility], [address] [place] [address]WXJBCZS CREAT RATIOon 96-04-3946CFBSWW URINE VCRCGMT36 mg/L Normal<120ProMedica Shacklefords HospitalComment on above:Performed By: #### NERY OMALLEY #### [facility] ([id number]) [address], [address] [place] [address]G/PRO/SENIOR SOURCING MANAGER RATIO CALC0.16Normal<0.2PMercy Health West Hospital Comment on above:Result Comment: Nephrotic Syndrome is associated with ratios >3.5Performed By: #### UPCR, DSU #### [facility] ([id number]) [address], [address] [address]AMIOU CREATININE,RDM36.65 mg/dLNormalProCleveland Clinic [facility] Comment on above:Performed By: #### UPCR, DSU #### [facility] ([id number]) [address] [address]W. pallidum IgG+IgM IA Ql (S)on 00-09-9553Fsbiqnef Total<0.2 Normal0.0-0.8ProCleveland Clinic Akron GeneralComment on above:Result Comment: NON REACTIVE No serologic evidence of infection to Treponema pallidum (syphilis). Repeat testing may be considered in patients with suspected acute or primary syphilis in 2 to 4 weeks.Performed By: #### CBC, CMP, 2532-0, 3084-1, 65331-8 #### [facility] ([id number]) [address] [address]RMLO ACIDon 58-78-6595Jylmv [Mass/Vol]2.9 mg/dLNormal2.6-7.2 [facility] ColumbusComment on above:Performed By: #### CBC, CMP, 2532-0, 3084-1, 57294-4 #### [facility] ([id number]) [address] [address]IQWM EKGon 29-13-9675HfiDklmgjAdams County HospitalUS OB BPP W NON-STRESSon 85-48-3506B[address] [address] Ultrasound Report Signed Patient: SAMANTHA BENJAMIN MR#: [id number] : 1995 Acct:[id number] Age/Sex: 29 / F ADM Date: 09/07/24 Loc: US Attending Dr: Zhen Dhillon D.O. Ordering Physician: Zhen Dhillon D.O. Date of Service: 09/07/24 Procedure(s): US OB BPP w non-stress Accession Number(s): [id number] cc: Zhen Dhillon D.O.; Jacques Del Rosario M.D. [address] [place] [address] Patient Name: SAMANTHA BENJAMIN MRN: [id number] date: 1995 Sex: F Assigned Patient Location: Current Patient Location: US Accession/Order Number: [id number] Exam Date: 09/07/2024 17:55 Report Date: 09/08/2024 [...] profile score: 8 Electronically authenticated by: IRINEO CUENCA Date: 09/08/2024 07:53 Dictated By: Irineo Cuenca M.D. Signed By: 09/08/24 0755 DD/ 0753 TD/TT: Informatics Scientist:NIKKIEHRadiolognona, Radiologist, MD - 09/08/2024 [place] [address] Ultrasound Report Signed Patient: SAMANTHA BENJAMIN MR#: [id number] : 1995 Acct:[id number] Age/Sex: 29 / F ADM Date: 09/07/24 Loc: US Attending Dr: Zhen Dhillon D.O. Ordering Physician: Zhen Dhillon D.O. Date of Service: 09/07/24 Procedure(s): US OB BPP w non-stress Accession Number(s): [id number] cc: Zhen Dhillon D.O.; Jacques Del Rosario M.D. [place] [id number] Patient Name: SAMANTHA BENJAMIN MRN: [facility]:[id number] date: 1995 Sex: F Assigned Patient Location: US Current Patient Location: US Accession/Order Number: [id number] Exam Date: 09/07/2024 17:55 Report Date: 09/08/2024 [...] profile score: 8 Electronically authenticated by: IRINEO CUENCA Date: 09/08/2024 07:53 Dictated By: Irineo Cuenca M.D. Signed By: 09/08/24 0755 DD/ 075 TD/TT: Informatics Scientist: JUNE HealthcareRadiology Study observation (narrative)JUNE AlbertoUS OB BPP W NON-STRESSOrdered By: Radiologist Radiology on 08-24-0454[facility] Work Phone: US OB GROWTHon [phone] [phone] Ultrasound Report Signed Patient: SAMANTHA BENJAMIN MR#: [id number] : 1995 Acct:[id number] Age/Sex: 29 / F ADM Date: 09/07/24 Loc: US Attending Dr: Zhen Dhillon D.O. Ordering Physician: Zhen Dhillon D.O. Date of Service: 09/07/24 Procedure(s): US OB growth Accession Number(s): [id number] cc: Zhen Dhillon D.O.; Jacques Del Rosario M.D. [place] [address] Patient Name: SAMANTHA BENJAMIN MRN: [id number]:[id number] date: 1995 Sex: F Assigned Patient Location: Current Patient Location: Accession/Order Number: [id number] Exam Date: 09/07/2024 17:55 Report Date: 09/08/2024 [...] the 95th percentile Electronically authenticated by: IRINEO CUENCA Date: 09/08/2024 08:24 Dictated By: Irineo Cuenca M.D. Signed By: 09/08/24826 DD/ 3 TD/TT: Informatics Scientist:RYLEEadiology, Radiologist, - 09/08/2024 [place] [address] Ultrasound Report Signed Patient: SAMANTHA BENJAMIN MR#: [id number] : 1995 Acct:[id number] Age/Sex: 29 / F ADM Date: 09/07/24 Loc: US Attending Dr: Zhen Dhillon D.O. Ordering Physician: Zhen Dhillon D.O. Date of Service: 09/07/24 Procedure(s): US OB growth Accession Number(s): [id number] cc: Zhen Dhillon D.O.; Jacques Del Rosario M.D. [address] [place] [id number] Patient Name: SAMANTHA BENJAMIN MRN: [facility]:[id number] date: 1995 Sex: F Assigned Patient Location: US Current Patient Location: US Accession/Order Number: [id number] Exam Date: 09/07/2024 17:55 Report Date: 09/08/2024 [...] the 95th percentile Electronically authenticated by: IRINEO CUENCA Date: 09/08/2024 08:24 Dictated By: Irineo Cuenca M.D. Signed By: 09/08/24826 DD/ 3 TD/TT: Informatics Scientist: JUNE HealthcareRadiology Study observation (narrative)NOMJoshua HealthcareUS OB GROWTHOrdered By: Radiologist Radiology on 55-43-0792[facility] Work Phone: US OB UMBILICAL ARTERY DOPPLERon [phone], [place] [address] Ultrasound Report Signed Patient: SAMANTHA BENJAMIN MR#: [id number] : 1995 Acct:[id number] Age/Sex: 29 / F ADM Date: 09/07/24 Loc: US Attending Dr: Zhen Dhillon D.O. Ordering Physician: Zhen Dhillon D.O. Date of Service: 09/07/24 Procedure(s): US OB umbilical artery Accession Number(s): [id number] cc: Zhen Dhillon D.O.; Jacques Del Rosario M.D. [place] [id number] Patient Name: SAMANTHA BENJAMIN MRN: [facility]:[id number] date: 1995 Sex: F Assigned Patient Location: Current Patient Location: US Accession/Order Number: [id number] Exam Date: 09/07/2024 17:55 Report Date: 09/08/2024 [...] after 32 weeks. Electronically authenticated by: IRINEO CUENCA Date: 09/08/2024 08:26 Dictated By: Irineo Cuenca M.D. Signed By: 09/08/24828 DD/ 5 TD/TT: Informatics Scientist:TBHRadiology, Radiologist, - 09/08/2024 [place] [address] Ultrasound Report Signed Patient: SAMANTHA BENJAMIN MR#: [id number] : 1995 Acct:[id number] Age/Sex: 29 / F ADM Date: 09/07/24 Loc: US Attending Dr: Zhen Dhillon D.O. Ordering Physician: Zhen Dhillon D.O. Date of Service: 09/07/24 Procedure(s): US OB umbilical artery Accession Number(s): [id number] cc: Zhen Dhillon D.O.; Jacques Del Rosario M.D. [address] [place] [address] Patient Name: SAMANTHA BENJAMIN MRN: [id number]:[id number] date: 1995 Sex: F Assigned Patient Location: US Current Patient Location: US Accession/Order Number: [id number] Exam Date: 09/07/2024 17:55 Report Date: 09/08/2024 [...] after 32 weeks. Electronically authenticated by: IRINEO CUENCA Date: 09/08/2024 08:26 Dictated By: Irineo Cuenca M.D. Signed By: 09/08/24828 DD/ 5 TD/TT: Informatics Scientist: JUNE HealthcareRadiology Study observation (narrative)NOMS HealthcareUS OB UMBILICAL ARTERY DOPPLEROrdered By: Radiologist Radiology on 02-00-3241[facility] Work Phone: [facility]H UA (CLEAN/CATCH) METAL FINISHER/MICRO IF IND.on 08-30-2024 BILIRUBIN URINENegativeNEGATIVENOMS HealthcareBLOOD URINENegativeNEGATIVENOMS HealthcareClarity (U)CLEARCLEARNOMS HealthcareColor (U)YELLOWYELLOWNOMS HealthcareGLUCOSE URINE UANegativeNEGATIVE mg/dLNOMS HealthcareInterpretation and review of laboratory resultsAbnormalNOMS HealthcareKetones Ql (U)15 mg/dL AbnormalNEGATIVENOMS HealthcareLeukocyte esterase Test strip Ql (U)Negative NEGATIVENOMS HealthcareNITRITE URINENegativeNEGATIVENOMS HealthcarepH (U)6.0 [pH]5.0 - 9.0NOMS HealthcareProtein (U) [Mass/Vol]30 mg/dLAbnormalNEG/TRACENOMS HealthcareSPECIFIC GRAVITY URINE>=1.879Mzokeava8.005 - 1.025NOMS HealthcareURINE MICROSCOPIC INDICATEDYESNOMS HealthcareUROBILINOGEN URINE0.2 EU/dL0.2 - 1.0 EU/dLNOMS HealthcareCLINISYNCNOMS HealthcareUS OB BPP W NON-STRESSon 71-82-0811Yfi[address] [address] Ultrasound Report Signed Patient: SAMANTHA BENJAMIN MR#: [id number] : 1995 Acct:[id number] Age/Sex: 29 / F ADM Date: 08/30/24 Loc: [facility] 250-[address]: Zhen Dhillon D.O. Ordering Physician: Jacquie,Zhen D.O. Date of Service: 08/30/24 Procedure(s): US OB BPP w non-stress Accession Number(s): [id number] cc: Zhen Dhillon D.O.; Jacques Del Rosario M.D. [place] [address] Patient Name: SAMANTHA BENJAMIN MRN: [facility]:[id number] date: 1995 Sex: F Assigned Patient Location: [facility] Current Patient Location: [facility] Accession/Order Number: [id number] Exam Date: 08/30/2024 13:43 Report Date: 08/30/2024 14:27 At the request of: ZHEN DHILLON Procedure: US OB BPP w non-stress Ultrasound biophysical profile CLINICAL: Evaluate well-being. Clinical gestational age of 34 weeks 6 days. TECHNIQUE: Dedicated ultrasound imaging of the fetus was performed to include the equities trader's evaluation of biophysical profile. FINDINGS: Comparison: Ultrasound [...] By: Antoine Traylor M.D. Signed By: 08/30/24 143 DD/ 1427 TD/TT: Informatics Scientist:TBHRadiology, Radiologist, - 08/30/2024 [place] [address] Ultrasound Report Signed Patient: SAMANTHA BENJAMIN MR#: [id number] : 1995 Acct:[id number] Age/Sex: 29 / F ADM Date: 08/30/24 Loc: [facility] 250-[address]: Zhen Dhillon D.O. Ordering Physician: Zhen Dhillon D.O. Date of Service: 08/30/24 Procedure(s): US OB BPP w non-stress Accession Number(s): [id number] cc: Zhen Dhillon D.O.; Jacques Del Rosario M.D. [address] [place] [address] Patient Name: SAMANTHA BENJAMIN MRN: [facility]:[id number] date: 1995 Sex: F Assigned Patient Location: [facility] Current Patient Location: [facility] Accession/Order Number: [id number] Exam Date: 08/30/2024 13:43 Report Date: 08/30/2024 14:27 At the request of: ZHEN DHILLON Procedure: US OB BPP w non-stress Ultrasound biophysical profile CLINICAL: Evaluate well-being. Clinical gestational age of 34 weeks 6 days. TECHNIQUE: Dedicated ultrasound imaging of the fetus was performed to include the equities trader's evaluation of biophysical profile. FINDINGS: Comparison: Ultrasound [...] Signed By: 08/30/24 1430 DD/ 1427 TD/TT: Informatics Scientist: [facility] HealthcareRadiology Study observation (narrative)[facility] HealthcareUS OB BPP W NON-STRESSOrdered By: Radiologist Radiology on 19-75-1829[facility] Work Phone: Urinalysis macro (dipstick) panel [...] 1.03NOMS HealthcareUrobilinogen, UA1.00.2 - 12 mg/dLNOMS HealthcareNOMS HealthcareCA ECHO DOPPLER COMPLETEon 21-25-7738Qth[address] [address] Cardiology Report Signed Patient: SAMANTHA BENJAMIN MR#: [id number] : 1995 Acct:[id number] Age/Sex: 29 / F ADM Date: 08/25/24 Loc: CARD Attending Dr: Zhen Dhillon D.O. Ordering Physician: Zhen Dhillon D.O. Date of Service: 08/25/24 Procedure(s): CA echo doppler complete Accession Number(s): [id number] cc: Zhen Dhillon D.O.; Jacques Del Rosario M.D. Patient Name: SAMANTHA BENJAMIN MR#: [id number] : 1995 Exam Date: 08/25/2024 Ordering Doctor: DR Zhen Dhillon . ECHOCARDIOGRAM REPORT PROCEDURE: CA ECHO DOPPLER COMPLETE INDICATIONS: Hypertension in COMPARISON: None. DESCRIPTION: COMPLETE ECHOCARDIOGRAM Real-time transthoracic echocardiography with 2D, M-mode, spectral and color flow Doppler performed. QUALITY: Technical quality was good. LEFT VENTRICLE: Normal chamber size. Mild concentric left ventricular hypertrophy. Global left ventricular systolic function is normal. LV EF: Calculated left ventricular ejection fraction is 68%. DIASTOLIC: Diastolic function is indeterminate. ATRIAL SEPTUM: LEFT ATRIUM: Normal chamber size. RIGHT ATRIUM: Normal chamber size. RIGHT VENTRICLE: Normal chamber size. Normal right ventricular systolic function. TRICUSPID VALVE: Normal mobility and thickness. No stenosis with trivial regurgitation. Mild pulmonary hypertension. RVSP 37 mmHg MITRAL VALVE: Normal mobility and thickness. No evidence of mitral valve stenosis. There is no mitral annular calcification. No mitral regurgitation. AORTIC VALVE: Normal trileaflet appearance. No visible sclerosis. Normal leaflet mobility. No evidence of aortic valve [...] Flow): 2.34 m/s, 2.72 m/s, 2.63 m/s, 2.91 m/s Pulmonic Valve Mean Gradient: 4.47 mm[Hg], 4.52 mm[Hg], 5.19 mm[Hg], 5.13 mm[Hg] Mean Velocity: 0.99 m/s, 1.00 m/s, 1.07 m/s, 1.07 m/s Peak Velocity: 1.41 m/s Peak Gradient: 7.33 mm[Hg], 7.33 mm[Hg], 8.93 mm[Hg], 8.42 mm[Hg] Right Atrium Right Atrium Systolic Pressure: 46.98 ml, 46.98 ml Dictated by: Triston Bonilla M.D. on 08/28/19 (more content not included)...[facility] Radiology, Radiologist, MD - 08/28/2024 [place] [address] Cardiology Report Signed Patient: SAMANTHA BENJAMIN MR#: [id number] : 1995 Acct:[id number] Age/Sex: 29 / F ADM Date: 08/25/24 Loc: CARD Attending Dr: Zhen Dhillon D.O. Ordering Physician: Zhen Dhillon D.O. Date of Service: 08/25/24 Procedure(s): CA echo doppler complete Accession Number(s): [id number] cc: Zhen Dhillon D.O.; Jacques Del Rosario M.D. Patient Name: SAMANTHA BENJAMIN MR#: [id number] : 1995 Exam Date: 08/25/2024 Ordering Doctor: DR Zhen Dhillon . ECHOCARDIOGRAM REPORT PROCEDURE: CA ECHO DOPPLER COMPLETE INDICATIONS: Hypertension in COMPARISON: None. DESCRIPTION: COMPLETE ECHOCARDIOGRAM Real-time transthoracic echocardiography with 2D, M-mode, spectral and color flow Doppler performed. QUALITY: Technical quality was good. LEFT VENTRICLE: Normal chamber size. Mild concentric left ventricular hypertrophy. Global left ventricular systolic function is normal. LV EF: Calculated left ventricular ejection fraction is 68%. DIASTOLIC: Diastolic function is indeterminate. ATRIAL SEPTUM: LEFT ATRIUM: Normal chamber size. RIGHT ATRIUM: Normal chamber size. RIGHT VENTRICLE: Normal chamber size. Normal right ventricular systolic function. TRICUSPID VALVE: Normal mobility and thickness. No stenosis with trivial regurgitation. Mild pulmonary hypertension. RVSP 37 mmHg MITRAL VALVE: Normal mobility and thickness. No evidence of mitral valve stenosis. There is no mitral annular calcification. No mitral regurgitation. AORTIC VALVE: Normal trileaflet appearance. No visible sclerosis. Normal leaflet mobility. No evidence of aortic valve [...] Flow): 2.34 m/s, 2.72 m/s, 2.63 m/s, 2.91 m/s Pulmonic Valve Mean Gradient: 4.47 mm[Hg], 4.52 [...] at 10:29 Dictated By: TRISTON BONILLA Signed By: 08/28/24 1030 DD/ 1029 TD/TT: Informatics Scientist: JUNE AlbertoRadiology Study observation (narrative)JUNE AlbertoCA ECHO DOPPLER COMPLETEOrdered By: Radiologist Radiology on 98-47-0122[facility] Work Phone: US OB BPP W NON-STRESSon 82-31-2183[place], [place] [address] Ultrasound Report Signed Patient: SAMANTHA BENJAMIN MR#: [id number] : 1995 Acct:[id number] Age/Sex: 29 / F ADM Date: 08/24/24 Loc: US Attending Dr: Zhen Dhillon D.O. Ordering Physician: Zhen Dhillon D.O. Date of Service: 08/24/24 Procedure(s): US OB BPP w non-stress Accession Number(s): [id number] cc: Zhen Dhillon D.O.; Jacques Del Rosario M.D. [place] [id number] Patient Name: SAMANTHA BENJAMIN MRN: [id number] date: 1995 Sex: F Assigned Patient Location: US Current Patient Location: Accession/Order Number: [id number] Exam Date: 08/24/2024 17:13 Report Date: 08/25/2024 06:22 At the request of: ZHEN DHILLON Procedure: [...] increased since prior study. Electronically authenticated by: MICHELLE LANE Date: 08/25/2024 06:22 Dictated By: Michelle Lane M.D. Signed By: 08/25/24624 DD/ 1 TD/TT: Informatics Scientist:TBHRadiology, Radiologist, - 08/25/2024 [place] [address] Ultrasound Report Signed Patient: SAMANTHA BENJAMIN MR#: [id number] : 1995 Acct:[id number] Age/Sex: 29 / F ADM Date: 08/24/24 Loc: US Attending Dr: Zhen Dhillon D.O. Ordering Physician: Zhen Dhillon D.O. Date of Service: 08/24/24 Procedure(s): US OB BPP w non-stress Accession Number(s): [id number] cc: Zhen Dhillon D.O.; Jacques Del Rosario M.D. The [address] [address] Patient Name: SAMANTHA BENJAMIN MRN: [facility]:[id number] date: 1995 Sex: F Assigned Patient Location: US Current Patient Location: Accession/Order Number: [id number] Exam Date: 08/24/2024 17:13 Report Date: 08/25/2024 06:22 At the request of: ZHEN DHILLON Procedure: [...] increased since prior study. Electronically authenticated by: MICHELLE LANE Date: 08/25/2024 06:22 Dictated By: Michelle Lane M.D. Signed By: 08/25/24624 DD/ 1 TD/TT: Informatics Scientist: JUNE HealthcareRadiology Study observation (narrative)NOMS HealthcareUS OB BPP W NON-STRESSOrdered By: Radiologist Radiology on 11-51-3591[facility] Work Phone: US OB GROWTHon [phone] [place] [address] Ultrasound Report Signed Patient: SAMANTHA BENJAMIN MR#: [id number] : 1995 Acct:[id number] Age/Sex: 29 / F ADM Date: 08/24/24 Loc: US Attending Dr: Zhen Dhillon D.O. Ordering Physician: Zhen Dhillon D.O. Date of Service: 08/24/24 Procedure(s): US OB growth Accession Number(s): [id number] cc: Zhen Dhillon D.O.; Jacques Del Rosario M.D. The [address] [address] Patient Name: SAMANTHA BENJAMIN MRN: [id number]:[id number] date: 1995 Sex: F Assigned Patient Location: [place] Current Patient Location: [place] Accession/Order Number: [id number] Exam Date: 08/24/2024 17:13 Report Date: 08/25/2024 06:26 At the request of: ZHEN DHILLON Procedure: [...] increased since prior study. Electronically authenticated by: MICHELLE LANE Date: 08/25/2024 06:26 Dictated By: Michelle Lane M.D. Signed By: 08/25/24627 DD/ 5 TD/TT: Informatics Scientist:TBHRadiology, Radiologist, - 08/25/2024 [place] [address] Ultrasound Report Signed Patient: SAMANTHA BENJAMIN MR#: [id number] : 1995 Acct:[id number] Age/Sex: 29 / F ADM Date: 08/24/24 Loc: [place] Attending Dr: Zhen Dhillon D.O. Ordering Physician: Zhen Dhillon D.O. Date of Service: 08/24/24 Procedure(s): US OB growth Accession Number(s): [id number] cc: Zhen Dhillon D.O.; Jacques Del Rosario M.D. [facility] [place] [address] Patient Name: SAMANTHA BENJAMIN MRN: [facility]:[id number] date: 1995 Sex: F Assigned Patient Location: US Current Patient Location: Accession/Order Number: [id number] Exam Date: 08/24/2024 17:13 Report Date: 08/25/2024 06:26 At the request of: ZHEN DHILLON Procedure: [...] increased since prior study. Electronically authenticated by: MICHELLE LANE Date: 08/25/2024 06:26 Dictated By: Michelle Lane M.D. Signed By: 08/25/24627 DD/ 5 TD/TT: Informatics Scientist: JUNE AlbertoRadiology Study observation (narrative)JUNE AlbertoUS OB GROWTHOrdered By: Radiologist Radiology on 52-21-6437[facility] Work Phone: US OB UMBILICAL ARTERY DOPPLERon [phone] [address] Ultrasound Report Signed Patient: SAMANTHA BENJAMIN MR#: [id number] : 1995 Acct:[id number] Age/Sex: 29 / F ADM Date: 08/24/24 Loc: US Attending Dr: Zhen Dhillon D.O. Ordering Physician: Zhen Dhillon D.O. Date of Service: 08/24/24 Procedure(s): US OB umbilical artery Accession Number(s): [id number] cc: Zhen Dhillon D.O.; Jacques Del Rosario M.D. [facility] [place] [address] Patient Name: SAMANTHA BENJAMIN MRN: [id number] date: 1995 Sex: F Assigned Patient Location: US Current Patient Location: US Accession/Order Number: [id number] Exam Date: 08/24/2024 17:13 Report Date: 08/25/2024 06:28 At the request of: ZHEN DHILLON Procedure: [...] umbilical artery blood velocity Electronically authenticated by: MICHELLE LANE Date: 08/25/2024 06:28 Dictated By: Michelle Lane M.D. Signed By: 08/25/24629 DD/ 7 TD/TT: Informatics Scientist:NIKKIEHRadiology, Radiologist, MD - 08/25/2024 [place] [address] Ultrasound Report Signed Patient: SAMANTHA BENJAMIN MR#: [id number] : 1995 Acct:[id number] Age/Sex: 29 / F ADM Date: 08/24/24 Loc: US Attending Dr: Zhen Dhillon D.O. Ordering Physician: Zhen Dhillon D.O. Date of Service: 08/24/24 Procedure(s): US OB umbilical artery Accession Number(s): [id number] cc: Zhen Dhillon D.O.; Jacques Del Rosario M.D. [place] [id number] Patient Name: SAMANTHA BENJAMIN MRN: [id number]:[id number] date: 1995 Sex: F Assigned Patient Location: US Current Patient Location: US Accession/Order Number: [id number] Exam Date: 08/24/2024 17:13 Report Date: 08/25/2024 06:28 At the request of: ZHEN DHILLON Procedure: [...] umbilical artery blood velocity Electronically authenticated by: MICHELLE LANE Date: 08/25/2024 06:28 Dictated By: Michelle Lane M.D. Signed By: 08/25/24629 DD/ 7 TD/TT: Informatics Scientist: JUNE HealthcareRadiology Study observation (narrative)JUNE AlbertoUS OB UMBILICAL ARTERY DOPPLEROrdered By: Radiologist Radiology on 63-75-4490[facility] Work Phone: Urinalysis macro (dipstick) panel (U)on 08-22-2024 Bilirubin, UANegativeNegative - 4(70) +++ mg/dLNOMS HealthcareBlood, UANegative Negative - 50 Hardeep/mcLNOMS HealthcareClarity, UAClearNOMS HealthcareColor, UA YellowNOMS HealthcareGlucose, UANegativeNegative - 2000(110) ++++ mg/dLNOMS HealthcareInterpretation and review of laboratory resultsNormalNOPA Healthcare Ketones, UANegativeNegative - 160(16) ++++ mg/dLNOMS HealthcareLeukocytes, UA NegativeNegative - 500+++ Renee/mcLNOMS HealthcareNitrite, UANegativeNegative - PositiveNOMS HealthcarepH, UA75 - 9NOMS HealthcareProtein, UANegativeNegative - 2000(20) ++++ mg/dLNOMS HealthcareSpec Grav, UA1.0151 - 1.03[facility] Urobilinogen, UA0.20.2 - 12 mg/dLNOMS HealthcareNOMS HealthcareUS OB GROWTHon 47-15-7028Qsz[place], [place] [address] Ultrasound Report Signed Patient: SAMANTHA BENJAMIN MR#: [id number] : 1995 Acct:[id number] Age/Sex: 29 / F ADM Date: 08/17/24 Loc: FBCO Attending Dr: Zhen Dhillon D.O. Ordering Physician: Zhen Dhillon D.O. Date of Service: 08/17/24 Procedure(s): US OB growth Accession Number(s): [id number] cc: Zhen Dhillon D.O.; Jacques Del Rosario M.D. [place] [id number] Patient Name: SAMANTHA BENJAMIN MRN: [id number]:[id number] date: 1995 Sex: F Assigned Patient Location: [facility] [place] [facility] [place]/Order Number: [id number] Exam Date: 08/17/2024 17:15 Report Date: 08/17/2024 23:58 At the request of: ZHEN DHILLON Procedure: [...] greater than 97th percentile. Electronically authenticated by: MICHELLE LANE Date: 08/17/2024 23:58 Dictated By: Michelle Lane M.D. Signed By: 08/18/24 0001 DD/ 2358 TD/TT: Informatics Scientist:TBHRadiology, Radiologist, MD - 08/18/2024 [place] [address] Ultrasound Report Signed Patient: SAMANTHA BENJAMIN MR#: [id number] : 1995 Acct:[id number] Age/Sex: 29 / F ADM Date: 08/17/24 Loc: FBCO Attending Dr: Zhen Dhillon D.O. Ordering Physician: Zhen Dhillon D.O. Date of Service: 08/17/24 Procedure(s): US OB growth Accession Number(s): [id number] cc: Zhen Dhillon D.O.; Jacques Del Rosario M.D. [facility] [place] [id number] Patient Name: SAMANTHA BENJAMIN MRN: [id number]:[id number] date: 1995 Sex: F Assigned Patient Location: FBC Current Patient Location: FBCO Accession/Order Number: [id number] Exam Date: 08/17/2024 17:15 Report Date: 08/17/2024 23:58 At the request of: ZHEN DHILLON Procedure: [...] greater than 97th percentile. Electronically authenticated by: MICHELLE LANE Date: 08/17/2024 23:58 Dictated By: Michelle Lane M.D. Signed By: 08/18/24 0001 DD/ 2358 TD/TT: Informatics Scientist: JUNE Olvear OB GROWTHOrdered By: Radiologist Radiology on 08-32-6719[facility] Work Phone: us OB UMBILICAL ARTERY DOPPLERon [phone], [place] [address] Ultrasound Report Signed Patient: SAMANTHA BENJAMIN MR#: [id number] : 1995 Acct:[id number] Age/Sex: 29 / F ADM Date: 08/17/24 Loc: FBCO Attending Dr: Zhen Dhillon D.O. Ordering Physician: Zhen Dhillon D.O. Date of Service: 08/17/24 Procedure(s): US OB umbilical artery Accession Number(s): [id number] cc: Zhen Dhillon D.O.; Jacques Del Rosario M.D. [facility] [place] [id number] Patient Name: SAMANTHA BENJAMIN MRN: [id number] date: 1995 Sex: F Assigned Patient Location: [facility] [place] [facility] [place]ion/Order Number: [id number] Exam Date: 08/17/2024 17:15 Report Date: 08/18/2024 00:01 At the request of: ZHEN DHILLON Procedure: [...] umbilical artery blood velocity Electronically authenticated by: MICHELLE LANE Date: 08/18/2024 00:01 Dictated By: Michelle Lane M.D. Signed By: 08/18/24 0003 DD/ 0001 TD/TT: Informatics Scientist:TBHRadiology, Radiologist, MD - 08/18/2024 [place] [address] Ultrasound Report Signed Patient: SAMANTHA BENJAMIN MR#: [id number] : 1995 Acct:[id number] Age/Sex: 29 / F ADM Date: 08/17/24 Loc: FBCO Attending Dr: Zhen Dhillon D.O. Ordering Physician: Zhen Dhillon D.O. Date of Service: 08/17/24 Procedure(s): US OB umbilical artery Accession Number(s): [id number] cc: Zhen Dhillon D.O.; Jacques Del Rosario M.D. [address] [address] Patient Name: SAMANTHA BENJAMIN MRN: [id number] date: 1995 Sex: F Assigned Patient Location: [facility] [place] [facility] [place] Accession/Order Number: [id number] Exam Date: 08/17/2024 17:15 Report Date: 08/18/2024 00:01 At the request of: ZHEN DHILLON Procedure: [...] umbilical artery blood velocity Electronically authenticated by: MICHELLE LANE Date: 08/18/2024 00:01 Dictated By: Michelle Lane M.D. Signed By: 08/18/24 0003 DD/ 0001 TD/TT: Informatics Scientist: NOMJoshua HealthcareRadiology Study observation (narrative)NOMNortheast Missouri Rural Health NetworkUS OB UMBILICAL ARTERY DOPPLEROrdered By: Radiologist Radiology on 43-74-3907[facility] Work Phone: US OB BPP W NON-STRESSon [phone] [phone] Ultrasound Report Signed Patient: SAMANTHA BENJAMIN MR#: [id number] : 1995 Acct:[id number] Age/Sex: 29 / F ADM Date: 08/17/24 Loc: FBCO Attending Dr: Zhen Dhillon D.O. Ordering Physician: Zhen Dhillon D.O. Date of Service: 08/17/24 Procedure(s): US OB BPP w non-stress Accession Number(s): [id number] cc: Zhen Dhillon D.O.; Jacques Del Rosario M.D. [facility] [place] [phone] Patient Name: SAMANTHA BENJAMIN MRN: [id number] date: 1995 Sex: F Assigned Patient Location: [facility] Current Patient Location: Accession/Order Number: [id number] Exam Date: 08/17/2024 17:15 Report Date: 08/17/2024 23:54 At the request of: ZHEN DHILLON Procedure: [...] score: 8 2. Polyhydramnios. Electronically authenticated by: MICHELLE LANE Date: 08/17/2024 23:54 Dictated By: Michelle Lane M.D. Signed By: 08/17/247 DD/ 53 TD/TT: Informatics Scientist:NIKKIEHRadiology, Radiologist, MD - 08/17/2024 [place] [address] Ultrasound Report Signed Patient: SAMANTHA BENJAMIN MR#: [id number] : 1995 Acct:[id number] Age/Sex: 29 / F ADM Date: 08/17/24 Loc: FBCO Attending Dr: Zhen Dhillon D.O. Ordering Physician: Zhen Dhillon D.O. Date of Service: 08/17/24 Procedure(s): US OB BPP w non-stress Accession Number(s): [id number] cc: Zhen Dhillon D.O.; Jacques Del Rosario M.D. [place] [address] Patient Name: SAMANTHA BENJAMIN MRN: [id number] date: 1995 Sex: F Assigned Patient Location: [facility] Current Patient Location: Accession/Order Number: [id number] Exam Date: 08/17/2024 17:15 Report Date: 08/17/2024 23:54 At the request of: ZHEN DHILLON Procedure: [...] score: 8 2. Polyhydramnios. Electronically authenticated by: MICHELLE LANE Date: 08/17/2024 23:54 Dictated By: Michelle Lane M.D. Signed By: 08/17/242356 DD/ 53 TD/TT: Informatics Scientist: JUNE HealthcareRadiology Study observation (narrative)NOMS HealthcareUS OB BPP W NON-STRESSOrdered By: Radiologist Radiology on 87-74-5397[facility] Work Phone: US OB GROWTHon [phone] Study observation (narrative)NOMS HealthcareUS OB BPP WO NON-STRESSon 60-75-4092[place], [place] [address] Ultrasound Report Signed Patient: SAMANTHA BENJAMIN MR#: [id number] : 1995 Acct:[id number] Age/Sex: 29 / F ADM Date: 08/14/24 Loc: [facility] 250-[address]: Zhen Dhillon D.O. Ordering Physician: Zhen Dhillon D.O. Date of Service: 08/14/24 Procedure(s): US OB BPP wo non-stress Accession Number(s): [id number] cc: Zhen Dhillon D.O.; Jacques Del Rosario M.D. [facility] [place] [address] Patient Name: SAMANTHA BENJAMIN MRN: [facility]:[id number] date: 1995 Sex: F Assigned Patient Location: [facility] Current Patient Location: [facility] Accession/Order Number: [id number] Exam Date: 08/14/2024 19:50 Report Date: 08/14/2024 20:39 At the request of: ZHEN DHILLON Procedure: US OB BPP wo non-stress [...] Amniotic band is suspected. Electronically authenticated by: MICHELLE LANE Date: 08/14/2024 20:39 Dictated By: Michelle Lnae M.D. Signed By: 08/14/242040 DD/ 38 TD/TT: Informatics Scientist:NIKKIEHRadiology, Radiologist, MD - 08/14/2024 [place] [address] Ultrasound Report Signed Patient: SAMANTHA BENJAMIN MR#: [id number] : 1995 Acct:[id number] Age/Sex: 29 / F ADM Date: 08/14/24 Loc: [facility] 250-[address]: Zhen Dhillon D.O. Ordering Physician: Zhen Dhillon D.O. Date of Service: 08/14/24 Procedure(s): US OB BPP wo non-stress Accession Number(s): [id number] cc: Zhen Dhillon D.O.; Jacques Del Rosario M.D. [place] [id number] Patient Name: SAMANTHA BENJAMIN MRN: [id number] date: 1995 Sex: F Assigned Patient Location: [facility] Current Patient Location: [facility] Accession/Order Number: [id number] Exam Date: 08/14/2024 19:50 Report Date: 08/14/2024 20:39 At the request of: ZHEN DHILLON Procedure: US OB BPP wo non-stress [...] Amniotic band is suspected. Electronically authenticated by: MICHELLE LANE Date: 08/14/2024 20:39 Dictated By: Michelle Lane M.D. Signed By: 08/14/242040 DD/ 38 TD/TT: Informatics Scientist: JUNE HealthcareRadiology Study observation (narrative)JUNE HealthcareUS OB BPP WO NON-STRESSOrdered By: Radiologist Radiology on 57-72-8038[facility] Work Phone: Urinalysis macro (dipstick) panel (U)on 08-14-2024 Bilirubin, UANegativeNegative - 4(70) +++ mg/dLNOMS HealthcareBlood, UAPositive Negative - 50 Hardeep/mcLNOMS HealthcareComment on above:trace-intactClarity, UA ClearNOMS HealthcareColor, UAYellowNOMS HealthcareGlucose, UANegativeNegative - 2000(110) ++++ mg/dLNOMS HealthcareInterpretation and review of laboratory resultsAbnormalNOMS HealthcareKetones, UAPositiveNegative - 160(16) ++++ mg/dL NOMS HealthcareComment on above:40Leukocytes, UANegativeNegative - 500+++ Renee/mcLNOMS HealthcareNitrite, UANegativeNegative - PositiveNOMS HealthcarepH, UA65 - 9NOMS HealthcareProtein, UATraceNegative - 2000(20) ++++ mg/dLNOMS HealthcareSpec Grav, UA1.021 - 1.03NOMS HealthcareUrobilinogen, UA0.20.2 - 12 mg/dLNOMS HealthcareNOMS HealthcareUS OB BPP W NON-STRESSon 33-84-8864[place], [place] [address] Ultrasound Report Signed Patient: SAMANTHA BENJAMIN MR#: [id number] : 1995 Acct:[id number] Age/Sex: 29 / F ADM Date: 08/10/24 Loc: [place] [address]: Zhen Dhillon D.O. Ordering Physician: Zhen Dhillon D.O. Date of Service: 08/10/24 Procedure(s): US OB BPP w non-stress Accession Number(s): [id number] cc: Zhen Dhillon D.O.; Jacques Del Rosario M.D. [facility] [place] [address] Patient Name: SAMANTHA BENJAMIN MRN: [id number]:[id number] date: 1995 Sex: F Assigned Patient Location: [facility] Current Patient Location: [facility] Accession/Order Number: [id number] Exam Date: 08/10/2024 14:15 Report Date: 08/10/2024 14:45 At the request of: ZHEN DHILLON Procedure: US OB BPP w non-stress EXAMINATION: US OB BPP w non-stress HISTORY: Gestational diabetes mellitus COMPARISON: No relevant comparison available. TECHNIQUE: Ultrasound biophysical profile was performed in the radiology department. non-reactive stress testing was performed by nursing staff in the birthing center. FINDINGS: BREATHING MOVEMENTS: 2 GROSS BODY MOVEMENTS: 2 TONE: 2 QUALITATIVE AMNIOTIC FLUID VOLUME: 2 PRESENTATION: CEPHALIC HEART RATE: 156.98 bpm AMNIOTIC FLUID VOLUME: 28.3 cm, polyhydramnios GESTATIONAL AGE: 32 weeks 0 days US/US OB BPP w non-stress IMPRESSION: Total biophysical profile score: 8 Polyhydramnios Electronically authenticated by: IRINEO CUENCA Date: 08/10/2024 14:45 Dictated By: Irineo Cuenca M.D. Signed By: 08/10/24 1448 DD/ 44 TD/TT: Informatics Scientist:TBHRadiology, Radiologist, - 08/10/2024 [place] [address] Ultrasound Report Signed Patient: SAMANTHA BENJAMIN MR#: [id number] : 1995 Acct:[id number] Age/Sex: 29 / F ADM Date: 08/10/24 Loc: [place] [address]: Zhen Dhillon D.O. Ordering Physician: Zhen Dhillon D.O. Date of Service: 08/10/24 Procedure(s): US OB BPP w non-stress Accession Number(s): [id number] cc: Zhen Dhillon D.O.; Jacques Del Rosario M.D. [facility] [place] [address] Patient Name: SAMANTHA BENJAMIN MRN: [id number] date: 1995 Sex: F Assigned Patient Location: [facility] Current Patient Location: [facility] Accession/Order Number: [id number] Exam Date: 08/10/2024 14:15 Report Date: 08/10/2024 14:45 At the request of: ZHEN DHILLON Procedure: US OB BPP w non-stress EXAMINATION: US OB BPP w non-stress HISTORY: Gestational diabetes mellitus COMPARISON: No relevant comparison available. TECHNIQUE: Ultrasound biophysical profile was performed in the radiology department. non-reactive stress testing was performed by nursing staff in the birthing center. FINDINGS: BREATHING MOVEMENTS: 2 GROSS BODY MOVEMENTS: 2 TONE: 2 QUALITATIVE AMNIOTIC FLUID VOLUME: 2 PRESENTATION: CEPHALIC HEART RATE: 156.98 bpm AMNIOTIC FLUID VOLUME: 28.3 cm, polyhydramnios GESTATIONAL AGE: 32 weeks 0 days US/US OB BPP w non-stress IMPRESSION: Total biophysical profile score: 8 Polyhydramnios Electronically authenticated by: IRINEO CUENCA Date: 08/10/2024 14:45 Dictated By: Irineo Cuenca M.D. Signed By: 08/10/248 DD/ 44 TD/TT: Informatics Scientist: NOMS HealthcareRadiology Study observation (narrative)NOMS HealthcareUS OB BPP W NON-STRESSOrdered By: Radiologist Radiology on 42-29-5804[facility] Work Phone: US OB BPP W NON-STRESSon [phone], [place] [address] Ultrasound Report Signed Patient: SAMANTHA BENJAMIN MR#: [id number] : 1995 Acct:[id number] Age/Sex: 29 / F ADM Date: 08/07/24 Loc: [facility] 253-[address]: Zhen Dhillon D.O. Ordering Physician: Zhen Dhillon D.O. Date of Service: 08/07/24 Procedure(s): US OB BPP w non-stress Accession Number(s): [id number] cc: Zhen Dhillon D.O.; Jacques Del Rosario M.D. The [address] [address] Patient Name: SAMANTHA BENJAMIN MRN: [id number] date: 1995 Sex: F Assigned Patient Location: [facility] Current Patient Location: [facility] Accession/Order Number: [id number] Exam Date: 08/07/2024 18:35 Report Date: 08/08/2024 08:56 At the request of: ZHEN DHILLON Procedure: [...] score: 6 2. Polyhydramnios. Electronically authenticated by: MICHELLE LANE Date: 08/08/2024 08:56 Dictated By: Michelle Lane M.D. Signed By: 08/08/24 0858 DD/ TD/TT: Informatics Scientist:TBHRadiology, Radiologist, MD - 08/08/2024 [place] [address] Ultrasound Report Signed Patient: SAMANTHA BENJAMIN MR#: [id number] : 1995 Acct:[id number] Age/Sex: 29 / F ADM Date: 08/07/24 Loc: [facility] 253-[address]: Zhen Dhillon D.O. Ordering Physician: Zhen Dhillon D.O. Date of Service: 08/07/24 Procedure(s): US OB BPP w non-stress Accession Number(s): [id number] cc: Zhen Dhillon D.O.; Jacques Del Rosario M.D. The [address] [address] Patient Name: SAMANTHA BENJAMIN MRN: [id number]:[id number] date: 1995 Sex: F Assigned Patient Location: [facility] Current Patient Location: [facility] Accession/Order Number: [id number] Exam Date: 08/07/2024 18:35 Report Date: 08/08/2024 08:56 At the request of: ZHEN DHILLON Procedure: [...] score: 6 2. Polyhydramnios. Electronically authenticated by: MICHELLE LANE Date: 08/08/2024 08:56 Dictated By: Michelle Lane M.D. Signed By: 08/08/24 0858 DD/ TD/TT: Informatics Scientist: JUNE HealthcareRadiology Study observation (narrative)NOMS HealthcareUS OB BPP W NON-STRESSOrdered By: Radiologist Radiology on 07-59-8153[facility] Work Phone: US OB BPP WO NON-STRESSon 52-76-8304[place], [place] [address] Ultrasound Report Signed Patient: SAMANTHA BENJAMIN MR#: [id number] : 1995 Acct:[id number] Age/Sex: 29 / F ADM Date: 08/07/24 Loc: [facility] 253-[address]: Zhen Dhillon D.O. Ordering Physician: Zhen Dhillon D.O. Date of Service: 08/08/24 Procedure(s): US OB BPP wo non-stress Accession Number(s): [id number] cc: Zhen Dhillon D.O.; Jacques Del Rosario M.D. [address] [address] Patient Name: SAMANTHA BENJAMIN MRN: [facility]:[id number] date: 1995 Sex: F Assigned Patient Location: [facility] Current Patient Location: [facility] Accession/Order Number: [id number] Exam Date: 08/08/2024 07:01 Report Date: 08/08/2024 08:57 At the request of: ZHEN DHILLON Procedure: US OB BPP wo non-stress EXAMINATION: US OB BPP wo non-stress HISTORY:repeat BPP, 01/07 COMPARISON: Ultrasound OB biophysical 08/07/2024 TECHNIQUE: Ultrasound biophysical profile was performed in the radiology department. BREATHING MOVEMENTS: 0 GROSS BODY MOVEMENTS: 2 TONE: 2 QUALITATIVE AMNIOTIC FLUID VOLUME: 2 PRESENTATION: CEPHALIC HEART RATE: 142.86 bpm AMNIOTIC FLUID VOLUME: 30.44 cm GESTATIONAL AGE: 31 weeks 5 days US/US OB BPP wo non-stress IMPRESSION: 1. Total biophysical profile score: 6 2. Polyhydramnios. Electronically authenticated by: MICHELLE LANE Date: 08/08/2024 08:57 Dictated By: Michelle Lane M.D. Signed By: 08/08/24 0859 DD/ 0857 TD/TT: Informatics Scientist:TBHRadiology, Radiologist, MD - 08/08/2024 [place] [address] Ultrasound Report Signed Patient: SAMANTHA BENJAMIN MR#: [id number] : 1995 Acct:[id number] Age/Sex: 29 / F ADM Date: 08/07/24 Loc: [facility] 253-[address]: Zhen Dhillon D.O. Ordering Physician: Zhen Dhillon D.O. Date of Service: 08/08/24 Procedure(s): US OB BPP wo non-stress Accession Number(s): [id number] cc: Zhen Dhillon D.O.; Jacques Del Rosario M.D. The [address] [address] Patient Name: SAMANTHA BENJAMIN MRN: [id number]:[id number] date: 1995 Sex: F Assigned Patient Location: [facility] Current Patient Location: [facility] Accession/Order Number: [id number] Exam Date: 08/08/2024 07:01 Report Date: 08/08/2024 08:57 At the request of: ZHEN DHILLON Procedure: US OB BPP wo non-stress EXAMINATION: US OB BPP wo non-stress HISTORY:repeat BPP, 01/07 COMPARISON: Ultrasound OB biophysical 08/07/2024 TECHNIQUE: Ultrasound biophysical profile was performed in the radiology department. BREATHING MOVEMENTS: 0 GROSS BODY MOVEMENTS: 2 TONE: 2 QUALITATIVE AMNIOTIC FLUID VOLUME: 2 PRESENTATION: CEPHALIC HEART RATE: 142.86 bpm AMNIOTIC FLUID VOLUME: 30.44 cm GESTATIONAL AGE: 31 weeks 5 days US/US OB BPP wo non-stress IMPRESSION: 1. Total biophysical profile score: 6 2. Polyhydramnios. Electronically authenticated by: MICHELLE LANE Date: 08/08/2024 08:57 Dictated By: Michelle Lane M.D. Signed By: 08/08/24 0859 DD/ 0857 TD/TT: Informatics Scientist: JUNE HealthcareRadiology Study observation (narrative)NOMS HealthcareUS OB BPP WO NON-STRESSOrdered By: Radiologist Radiology on 95-82-4310TS[facility] Work Phone: aLL CBC WITH AUTO DIFFon 03-82-5367DAUSDPIBM ABSOLUTE AUTO0.1NOMS HealthcareBasophils/100 WBC (Bld)0.3 %0.2 - 2.0 %[facility] Eosinophils/100 WBC (Bld)0.6 %Low0.9 - 7.0 %NOMS HealthcareErythrocyte distribution width (RBC) [Ratio]12.2 %11.0 - 15.0 %NOMS HealthcareHematocrit (Bld) [Volume fraction]36.7 %36.0 - 48.0 %NOMS HealthcareHemoglobin (Bld) [Mass/Vol]12.5 g/dL12.0 - 16.0 g/dLNOMS HealthcareIMMATURE GRANULOCYTES ABS AUTO 0.33HighNOMS HealthcareImmature granulocytes/100 WBC (Bld)2 %High0.0 - 0.5 %NOMS HealthcareInterpretation and review of laboratory resultsAbnormalNOMS HealthcareLYMPHOCYTES ABSOLUTE AUTO1.6NOMissouri Delta Medical CenterLymphocytes/100 WBC (Bld) 9.9 %Low20.5 - 60.0 %[facility] HospitalH (RBC) [Entitic mass]29.7 pg26.7 - 34.0 pgJefferson Memorial HospitalHC (RBC) [Mass/Vol]34.1 g/dL29.9 - 35.2 g/dLSaint Joseph Health Center MCV (RBC) [Entitic vol]87.2 fL81.0 - 99.0 fLSaint Joseph Health CenterMONOCYTES ABSOLUTE PDDQ7IhcxAVFPSaint Joseph Health CenterMonocytes/100 WBC (Bld)6.3 %1.7 - 12.0 %[facility] NEUTROPHILS ABSOLUTE AUTO13.2HighSaint Joseph Health CenterNeutrophils/100 WBC (Bld)80.9 % High43.0 - 75.0 %[facility] CenterPlatelet mean volume (Bld) [Entitic vol]10.5 fL 9.5 - 13.5 fLSaint Joseph Health CenterTB EO #0.1N[facility] YTZ214MNLNSaint John's Regional Health CenterH RBC4.21NOKindred Hospital WBC16.3HighSaint Joseph Health CenterCLINISYNCNSaint Luke's [facility] MLR HEMOGLOBIN A1Con 11-85-5370Vcrfccq [Mass/Vol]111 mg/dLSaint Joseph Health CenterHbA1c (Bld) [Mass fraction]5.5 %4.5 - 6.2 %[facility] CenterComment on above:ADA RECOMMENDED LIMIT 4.0 - 6.0 ADA THERAPEUTIC TARGET < 7.0 ACTION SUGGESTED > 7.0 CLINISYNCSaint Joseph Health CenterUS OB UMBILICAL ARTERY DOPPLERon 14-46-5168Xkn[place], [place] [address] Ultrasound Report Signed Patient: SAMANTHA BENJAMIN MR#: [id number] : 1995 Acct:[id number] Age/Sex: 29 / F ADM Date: 08/07/24 Loc: [facility] 253-[address]: Zhen Dhillon D.O. Ordering Physician: Zhen Dhillon D.O. Date of Service: 08/07/24 Procedure(s): US OB umbilical artery Accession Number(s): [id number] cc: Zhen Dhillon D.O.; Jacques Del Rosario M.D. [facility] [place] [address] Patient Name: SAMANTHA BENJAMIN MRN: [id number]:[id number] date: 1995 Sex: F Assigned Patient Location: [facility] Current Patient Location: [facility] Accession/Order Number: [id number] Exam Date: 08/07/2024 19:10 Report Date: 08/07/2024 21:20 At the request of: ZHEN DHILLON Procedure: US OB umbilical artery Examination:US OB umbilical artery INDICATION:non reactive NST COMPARISON:08/05/2023 biophysical profile TECHNIQUE:Limited ultrasonography was performed. FINDINGS:There is a single live intrauterine gestation in cephalic presentation demonstrating spontaneous motion. heartbeat 142 bpm was obtained. A three-vessel cord is visualized. There is normal flow of the umbilical arteries. There is persistent polyhydramnios with JANES of 29.8 cm. The largest pocket of fluid measures 9.2 cm. US/US OB umbilical artery IMPRESSION: Single live intrauterine gestation with spontaneous motion and cardiac activity. presentation is cephalic. A three-vessel cord is visualized demonstrating normal flow. Persistent polyhydramnios as discussed above. Electronically authenticated by: GERTRUDE BHAGAT Date: 08/07/2024 21:20 Dictated By: Gertrude Bhagat M.D. Signed By: 08/07/242122 DD/ 19 TD/TT: Informatics Scientist:RYLEEadiology, Radiologist, - 08/07/2024 [place] [address] Ultrasound Report Signed Patient: SAMANTHA BENJAMIN MR#: [id number] : 1995 Acct:[id number] Age/Sex: 29 / F ADM Date: 08/07/24 Loc: [facility] 253-[address]: Zhen Dhillon D.O. Ordering Physician: Zhen Dhillon D.O. Date of Service: 08/07/24 Procedure(s): US OB umbilical artery Accession Number(s): [id number] cc: Zhen Dhillon D.O.; Jaqcues Del Rosario M.D. [place] [id number] Patient Name: SAMANTHA BENJAMIN MRN: [id number]:[id number] date: 1995 Sex: F Assigned Patient Location: [facility] Current Patient Location: [facility] Accession/Order Number: [id number] Exam Date: 08/07/2024 19:10 Report Date: 08/07/2024 21:20 At the request of: ZHEN DHILLON Procedure: US OB umbilical artery Examination:US OB umbilical artery INDICATION:non reactive NST COMPARISON:08/05/2023 biophysical profile TECHNIQUE:Limited ultrasonography was performed. FINDINGS:There is a single live intrauterine gestation in cephalic presentation demonstrating spontaneous motion. heartbeat 142 bpm was obtained. A three-vessel cord is visualized. There is normal flow of the umbilical arteries. There is persistent polyhydramnios with JANES of 29.8 cm. The largest pocket of fluid measures 9.2 cm. US/US OB umbilical artery IMPRESSION: Single live intrauterine gestation with spontaneous motion and cardiac activity. presentation is cephalic. A three-vessel cord is visualized demonstrating normal flow. Persistent polyhydramnios as discussed above. Electronically authenticated by: GERTRUDE BHAGAT Date: 08/07/2024 21:20 Dictated By: Gertrude Bhagat M.D. Signed By: 08/07/242122 DD/ 19 TD/TT: Informatics Scientist: JUNE HealthcareRadiology Study observation (narrative)NOMS HealthcareUS OB UMBILICAL ARTERY DOPPLEROrdered By: Radiologist Radiology on 89-14-7161JQHF Healthcare Work Phone: all CBC WITH AUTO DIFFon 36-94-2901KAJAJAYFS ABSOLUTE AUTO0.1NOMS HealthcareBasophils/100 WBC (Bld)0.3 %0.2 - 2.0 %[facility] Eosinophils/100 WBC (Bld)0.2 %Low0.9 - 7.0 %NOMS HealthcareErythrocyte distribution width (RBC) [Ratio]12.1 %11.0 - 15.0 %NOMS HealthcareHematocrit (Bld) [Volume fraction]35.3 %Low36.0 - 48.0 %[facility] CenterHemoglobin (Bld) [Mass/Vol]12.1 g/dL12.0 - 16.0 g/dLSaint Joseph Health CenterIMMATURE GRANULOCYTES ABS AUTO 0.31HighNOMissouri Delta Medical CenterImmature granulocytes/100 WBC (Bld)1.7 %High0.0 - 0.5 % [facility] CenterInterpretation and review of laboratory resultsAbnormalSaint Joseph Health CenterLYMPHOCYTES ABSOLUTE AUTO1.4NOMissouri Delta Medical CenterLymphocytes/100 WBC (Bld) 7.9 %Low20.5 - 60.0 %[facility] HospitalH (RBC) [Entitic mass]29.8 pg26.7 - 34.0 pgJefferson Memorial HospitalHC (RBC) [Mass/Vol]34.3 g/dL29.9 - 35.2 g/dLSaint Joseph Health Center MCV (RBC) [Entitic vol]86.9 fL81.0 - 99.0 fLSaint Joseph Health CenterMONOCYTES ABSOLUTE AUTO1.3HighSaint Joseph Health CenterMonocytes/100 WBC (Bld)7.1 %1.7 - 12.0 %[facility] CenterNEUTROPHILS ABSOLUTE AUTO15.1HighSaint Joseph Health CenterNeutrophils/100 WBC (Bld)82.8 %High43.0 - 75.0 %[facility] CenterPlatelet mean volume (Bld) [Entitic vol]10.5 fL9.5 - 13.5 fLKindred Hospital EO #0NOKindred Hospital [id number] Hospital RBC4.06LowKindred Hospital WBC18.2HighSaint Joseph Health CenterCLINISYNC [facility] URINE T PROTEIN CREAT RATIOon 10-90-0812MMSGJSIGVJ URINE KCJRLT35.54 mg/dL20.00 - 300.00 mg/dLENCOMPASS HEALTH HealthcareComment on above:Period: 24 hours; Volume: 4,725 mLProtein (U) [Mass/Vol]7.4 mg/dLNINF - 11.9 mg/dLENCOMPASS HEALTH HealthcareComment on above:Period: 24 hours; Volume: 4,725 mLPROTEIN CREATININE RATIO URINE0.24[facility] Health CenterCLINISYNCNOMS HealthcareUS OB BPP WO NON-STRESSon 17-79[place]4079[place], [place] [address] Ultrasound Report Signed Patient: SAMANTHA BENJAMIN MR#: [id number] : 1995 Acct:[id number] Age/Sex: 29 / F ADM Date: Loc: [facility] 258-[address]: Zhen Dhillon D.O. Ordering Physician: Zhen Dhillon D.O. Date of Service: 08/05/24 Procedure(s): US OB BPP wo non-stress Accession Number(s): [id number] cc: Zhen Dhillon D.O.; Jacques Del Rosario M.D. [place] [address] Patient Name: SAMANTHA BENJAMIN MRN: [id number] date: 1995 Sex: F Assigned Patient Location: [facility] Current Patient Location: Accession/Order Number: [id number] Exam Date: 08/05/2024 11:25 Report Date: 08/05/2024 12:28 At the request of: ZHEN DHILLON Procedure: US OB BPP wo non-stress EXAM: US OB BPP wo non-stress HISTORY: poly COMPARISON: Ultrasound obstetrical placenta dated 08/04/2024. TECHNIQUE: Routine sonographic biophysical profile. FINDINGS: Single live intrauterine in cephalic presentation with a heart rate of 150 bpm. Sonographic biophysical profile: breathing movements: Adequate, score 2 gross body movements: Adequate, score 2 tone: Adequate, score 2 Qualitative amniotic fluid volume: Adequate, score 2 Total sonographic biophysical profile score: 8/8 Polyhydramnios with the amniotic fluid index measuring 27.2 cm with the largest pocket measuring 8.9 cm on the current examination and 30.1 cm with the largest pocket measuring 10 cm on the previous examination. US/US OB BPP wo non-stress IMPRESSION: Single live intrauterine in cephalic presentation with a heart rate of 150 bpm. Normal sonographic physical profile with a score of 8/8. Stable polyhydramnios with the amniotic fluid index measuring 27.2 cm with the largest pocket measuring 8.9 cm Electronically authenticated by: REMI REESE Date: 08/05/2024 12:28 Dictated By: Remi Reese M.D. Signed By: 08/05/24 1231 DD/ 1228 TD/TT: Informatics Scientist:RYLEEadiolBrock alejandre, - 08/05/2024 [place] [address] Ultrasound Report Signed Patient: SAMANTHA BENJAMIN MR#: [id number] : 1995 Acct:[id number] Age/Sex: 29 / F ADM Date: Loc: [facility] 258-[address]: Zhen Dhillon D.O. Ordering Physician: Zhen Dhillon D.O. Date of Service: 08/05/24 Procedure(s): US OB BPP wo non-stress Accession Number(s): [id number] cc: Zhen Dhillon D.O.; Jacques Del Rosario M.D. The [place] [address] Patient Name: SAMANTHA BENJAMIN MRN: [id number] date: 1995 Sex: F Assigned Patient Location: [facility] Current Patient Location: Accession/Order Number: [id number] Exam Date: 08/05/2024 11:25 Report Date: 08/05/2024 12:28 At the request of: ZHEN DHILLON Procedure: US OB BPP wo non-stress EXAM: US OB BPP wo non-stress HISTORY: poly COMPARISON: Ultrasound obstetrical placenta dated 08/04/2024. TECHNIQUE: Routine sonographic biophysical profile. FINDINGS: Single live intrauterine in cephalic presentation with a heart rate of 150 bpm. Sonographic biophysical profile: breathing movements: Adequate, score 2 gross body movements: Adequate, score 2 tone: Adequate, score 2 Qualitative amniotic fluid volume: Adequate, score 2 Total sonographic biophysical profile score: 8/8 Polyhydramnios with the amniotic fluid index measuring 27.2 cm with the largest pocket measuring 8.9 cm on the current examination and 30.1 cm with the largest pocket measuring 10 cm on the previous examination. US/US OB BPP wo non-stress IMPRESSION: Single live intrauterine in cephalic presentation with a heart rate of 150 bpm. Normal sonographic physical profile with a score of 8/8. Stable polyhydramnios with the amniotic fluid index measuring 27.2 cm with the largest pocket measuring 8.9 cm Electronically authenticated by: REMI REESE Date: 08/05/2024 12:28 Dictated By: Remi Reese M.D. Signed By: 08/05/24 1231 DD/ 1228 TD/TT: Informatics Scientist: NOMS HealthcareRadiology Study observation (narrative)NOMS HealthcareUS OB BPP WO NON-STRESSOrdered By: Radiologist Radiology on 93-85-2833DEOB Healthcare Work Phone: no Panel InformationOrdered By: Radiologist Radiology on 30-55-4664LKSG Healthcare Work Phone: no Panel Informationon 67-22-7899Lxeydpjqp Study observation (narrative)NOMS HealthcareTBH UA (CLEAN/CATCH) METAL FINISHER/MICRO IF IND.on 72-14-3650MWNRZZTQF URINENegativeNEGATIVENOMS HealthcareBLOOD URINENegative NEGATIVENOMS HealthcareClarity (U)CLEARCLEARNOMS HealthcareColor (U)YELLOWYELLOW NOMS HealthcareGLUCOSE URINE UA500 mg/dLAbnormalNEGATIVENOMS Healthcare Interpretation and review of laboratory resultsAbnormalNOMS HealthcareKetones Ql (U)NegativeNEGATIVE mg/dLNOMS HealthcareLeukocyte esterase Test strip Ql (U) NegativeNEGATIVENOMS HealthcareNITRITE URINENegativeNEGATIVENOMS HealthcarepH (U)6.0 [pH]5.0 - 9.0NOMS HealthcarePROTEIN URINENegativeNEG/TRACE mg/dLNOMS HealthcareSPECIFIC GRAVITY URINE1.0251.005 - 1.025NOMS HealthcareURINE MICROSCOPIC INDICATEDNONOMS HealthcareUROBILINOGEN URINE0.2 EU/dL0.2 - 1.0 EU/dL NOMS HealthcareCLINISYNCNOMS HealthcareUS OB CERVICAL LENGTHon 29-51-1397[address] [address] Ultrasound Report Signed Patient: SAMANTHA BENJAMIN MR#: [id number] : 1995 Acct:[id number] Age/Sex: 29 / F ADM Date: Loc: [facility] 258-[address]: Zhen Dhillon D.O. Ordering Physician: Zhen Dhillon D.O. Date of Service: 08/04/24 Procedure(s): US OB cervical length Accession Number(s): [id number] cc: Zhen Dhillon D.O.; Jacques Del Rosario M.D. The [place] [address] Patient Name: SAMANTHA BENJAMIN MRN: [facility]:[id number] date: 1995 Sex: F Assigned Patient Location: [facility] Current Patient Location: [facility] Accession/Order Number: [id number] Exam Date: 08/04/2024 18:00 Report Date: 08/04/2024 21:12 At the request of: ZHEN DHILLON Procedure: US OB cervical length EXAMINATION: US OB placenta, US OB cervical length HISTORY: abdominal pain COMPARISON: Ultrasound OB incomplete anatomy 07/17/2024 FINDINGS: PLACENTA: Anterior. CERVIX LENGTH: 4.0 cm in length with small amount of fluid within cervical canal. HEART RATE: 149 bpm OTHER: Cephalic presentation. AMNIOTIC FLUID: 13.1 cm (polyhydramnios). US/US OB cervical length IMPRESSION: 1. Anterior placenta without evidence of abruption or subchorionic hematoma. 2. Small amount of fluid within the cervical canal. Cervix is 4.0 cm in length. 3. Single live intrauterine . 4. Polyhydramnios. Electronically authenticated by: MICHELLE LANE Date: 08/04/2024 21:12 Dictated By: Michelle Lane M.D. Signed By: 08/04/242114 DD/ 11 TD/TT: Informatics Scientist:RYLEEadiolognona, Radiologist, - 08/04/2024 [place] [address] Ultrasound Report Signed Patient: SAMANTHA BENJAMIN MR#: [id number] : 1995 Acct:[id number] Age/Sex: 29 / F ADM Date: Loc: [facility] 258- Attending Dr: Zhen Dhillon D.O. Ordering Physician: Zhen Dhillon D.O. Date of Service: 08/04/24 Procedure(s): US OB cervical length Accession Number(s): [id number] cc: Zhen Dhillon D.O.; Jacques Del Rosario M.D. [place] [address] Patient Name: SAMANTHA BENJAMIN MRN: [id number] date: 1995 Sex: F Assigned Patient Location: [facility] Current Patient Location: [facility] Accession/Order Number: [id number] Exam Date: 08/04/2024 18:00 Report Date: 08/04/2024 21:12 At the request of: ZHEN DHILLON Procedure: US OB cervical length EXAMINATION: US OB placenta, US OB cervical length HISTORY: abdominal pain COMPARISON: Ultrasound OB incomplete anatomy 07/17/2024 FINDINGS: PLACENTA: Anterior. CERVIX LENGTH: 4.0 cm in length with small amount of fluid within cervical canal. HEART RATE: 149 bpm OTHER: Cephalic presentation. AMNIOTIC FLUID: 13.1 cm (polyhydramnios). US/US OB cervical length IMPRESSION: 1. Anterior placenta without evidence of abruption or subchorionic hematoma. 2. Small amount of fluid within the cervical canal. Cervix is 4.0 cm in length. 3. Single live intrauterine . 4. Polyhydramnios. Electronically authenticated by: MICHELLE LANE Date: 08/04/2024 21:12 Dictated By: Michelle Lane M.D. Signed By: 08/04/242114 DD/ 11 TD/TT: Informatics Scientist: JUNE LOPEZ PLACENTAon 57-17-8446[place]kp[place], [place] [address] Ultrasound Report Signed Patient: SAMANTHA BENJAMIN MR#: [id number] : 1995 Acct:[id number] Age/Sex: 29 / F ADM Date: Loc: [facility] Attending Dr: Zhen Dhillon D.O. Ordering Physician: Zhen Dhillon D.O. Date of Service: 08/04/24 Procedure(s): US OB placenta Accession Number(s): [id number] cc: Zhen Dhillon D.O.; Jacques Del Rosario M.D. The [address] [address] Patient Name: SAMANTHA BENJAMIN MRN: [facility]:[id number] date: 1995 Sex: F Assigned Patient Location: [facility] Current Patient Location: [facility] Accession/Order Number: [id number] Exam Date: 08/04/2024 18:00 Report Date: 08/04/2024 21:12 At the request of: ZHEN DHILLON Procedure: US OB placenta EXAMINATION: US [...] without evidence of abruption or subchorionic hematoma. 2. Small amount of fluid within the cervical canal. Cervix is 4.0 cm in length. 3. Single live intrauterine . 4. Polyhydramnios. Electronically authenticated by: MICHELLE LANE Date: 08/04/2024 21:12 Dictated By: Michelle Lane M.D. Signed By: 08/04/242114 DD/ 11 TD/TT: Informatics Scientist:RYLEEadiology, Radiologist, MD - 08/04/2024 [place] [address] Ultrasound Report Signed Patient: SAMANTHA BENJAMIN MR#: [id number] : 1995 Acct:[id number] Age/Sex: 29 / F ADM Date: Loc: [facility] Attending Dr: Zhen Dhillon D.O. Ordering Physician: Zhen Dhillon D.O. Date of Service: 08/04/24 Procedure(s): US OB placenta Accession Number(s): [id number] cc: Zhen Dhillon D.O.; Jacques Del Rosario M.D. [place] [id number] Patient Name: SAMANTHA BENJAMIN MRN: [facility]:[id number] date: 1995 Sex: F Assigned Patient Location: [facility] Current Patient Location: [facility] Accession/Order Number: [id number] Exam Date: 08/04/2024 18:00 Report Date: 08/04/2024 21:12 At the request of: ZHEN DHILLON Procedure: US OB placenta EXAMINATION: US [...] without evidence of abruption or subchorionic hematoma. 2. Small amount of fluid within the cervical canal. Cervix is 4.0 cm in length. 3. Single live intrauterine . 4. Polyhydramnios. Electronically authenticated by: MICHELLE LANE Date: 08/04/2024 21:12 Dictated By: Michelle Lane M.D. Signed By: 08/04/242114 DD/ 11 TD/TT: Informatics Scientist: JUNE HealthcareUrinalysis macro (dipstick) panel (U)on 48-11-7461Tvsbarqoq, UA NegativeNegative - 4(70) +++ mg/dLNOMS HealthcareBlood, UAPositiveNegative - 50 Hardeep/mcLNOMS HealthcareComment on above:smallClarity, UAClearNOMS Healthcare Color, UAYellowNOMS HealthcareGlucose, UAPositiveNegative - 2000(110) ++++ mg/dL NOMS HealthcareComment on above:250Interpretation and review of laboratory resultsAbnormalNOMS HealthcareKetones, UANegativeNegative - 160(16) ++++ mg/dL NOMS HealthcareLeukocytes, UANegativeNegative - 500+++ Renee/mcLNOMS Healthcare Nitrite, UANegativeNegative - PositiveNOMS HealthcarepH, UA65 - 9[facility] Protein, UATraceNegative - 2000(20) ++++ mg/dLNOMS HealthcareSpec Grav, UA1.021 - 1.03NOMS HealthcareUrobilinogen, UA0.20.2 - 12 mg/dLNOMS HealthcareNOMS HealthcareUS OB INCOMPLETE ANATOMYon 12-57-2808Frz[place]on, [place] [address] Ultrasound Report Signed Patient: SAMANTHA BENJAMIN MR#: [id number] : 1995 Acct:[id number] Age/Sex: 29 / F ADM Date: 07/17/24 Loc: [facility] Attending Dr: Zhen Dhillon D.O. Ordering Physician: Zhen Dhillon D.O. Date of Service: 07/17/24 Procedure(s): US OB incomplete anatomy Accession Number(s): [id number] cc: Zhen Dhillon D.O.; Jacques Del Rosario M.D. [place] [id number] Patient Name: SAMANTHA BENJAMIN MRN: [id number]:[id number] date: 1995 Sex: F Assigned Patient Location: [facility] Current Patient Location: [facility] Accession/Order Number: [id number] Exam Date: 07/17/2024 15:11 Report Date: 07/17/2024 15:54 At the request of: ZHEN DHILLON Procedure: US OB incomplete anatomy EXAM: US OB incomplete anatomy HISTORY: Follow-up ultrasound of anatomy Z36.2 COMPARISON: 06/15/2024 TECHNIQUE: Transabdominal images FINDINGS: position: Breech presentation, oblique lie Heart rate: 167 beats minute Normal observed anatomy: RVOT, four-chamber heart Non observed anatomy: LVOT Abnormalities: Incidental hyperechogenic focus in the ventricle US/US OB incomplete anatomy IMPRESSION: The left ventricular outflow track could not be visualized Electronically authenticated by: IRINEO CUENCA Date: 07/17/2024 15:54 Dictated By: Irineo Cuenca M.D. Signed By: 07/17/241556 DD/ 53 TD/TT: Informatics Scientist:RYLEEadiolognona, Radiologist, - 07/17/2024 [place] [address] Ultrasound Report Signed Patient: SAMANTHA BENJAMIN MR#: [id number] : 1995 Acct:[id number] Age/Sex: 29 / F ADM Date: 07/17/24 Loc: [facility] Attending Dr: Zhen Dhillon D.O. Ordering Physician: Zhen Dhillon D.O. Date of Service: 07/17/24 Procedure(s): US OB incomplete anatomy Accession Number(s): [id number] cc: Zhen Dhillon D.O.; Jacques Del Rosario M.D. The [place] [address] Patient Name: SAMANTHA BENJAMIN MRN: [id number] date: 1995 Sex: F Assigned Patient Location: [facility] Current Patient Location: [facility] Accession/Order Number: [id number] Exam Date: 07/17/2024 15:11 Report Date: 07/17/2024 15:54 At the request of: ZHEN DHILLON Procedure: US OB incomplete anatomy EXAM: US OB incomplete anatomy HISTORY: Follow-up ultrasound of anatomy Z36.2 COMPARISON: 06/15/2024 TECHNIQUE: Transabdominal images FINDINGS: position: Breech presentation, oblique lie Heart rate: 167 beats minute Normal observed anatomy: RVOT, four-chamber heart Non observed anatomy: LVOT Abnormalities: Incidental hyperechogenic focus in the ventricle US/US OB incomplete anatomy IMPRESSION: The left ventricular outflow track could not be visualized Electronically authenticated by: IRINEO CUENCA Date: 07/17/2024 15:54 Dictated By: Irineo Cuenca M.D. Signed By: 07/17/241556 DD/ 53 TD/TT: Informatics Scientist: JUNE HealthcareRadiology Study observation (narrative)NOMS HealthcareUS OB INCOMPLETE ANATOMYOrdered By: Radiologist Radiology on 50-08-9430[facility] Work Phone: Urinalysis macro (dipstick) panel (U)on 07-17-2024 Bilirubin, UANegativeNegative - 4(70) +++ mg/dLNOMS HealthcareBlood, UANegative Negative - 50 Hardeep/mcLNOMS HealthcareClarity, UAClearNOMS HealthcareColor, UA YellowNOMS HealthcareGlucose, UAPositiveNegative - 2000(110) ++++ mg/dLNOMS HealthcareComment on above:500Interpretation and review of laboratory results AbnormalNOMS HealthcareKetones, UAPositiveNegative - 160(16) ++++ mg/dLNOMS HealthcareComment on above:TRACELeukocytes, UANegativeNegative - 500+++ Renee/mcL NOMS HealthcareNitrite, UANegativeNegative - PositiveNOMS HealthcarepH, UA5.55 - 9NOMS HealthcareProtein, UANegativeNegative - 2000(20) ++++ mg/dLNOMS HealthcareSpec Grav, UA1.021 - 1.03NOMS HealthcareUrobilinogen, UA0.20.2 - 12 mg/dLNOMS HealthcareNOMS HealthcareGlucose random or fasting- POCTon 07-14-2024 External Glucose Fasting Or Random (Fbs)169The [facility] SystemThe [facility] SystemALL CBC WITH AUTO DIFFon 95-18-2351RPGZXQIYU ABSOLUTE AUTO0.1NOMS HealthcareBasophils/100 WBC (Bld)0.3 %0.2 - 2.0 %NOMS HealthcareEosinophils/100 WBC (Bld)0.3 %Low0.9 - 7.0 %NOMS HealthcareErythrocyte distribution width (RBC) [Ratio]12.1 %11.0 - 15.0 %NOMS HealthcareHematocrit (Bld) [Volume fraction]37.3 %36.0 - 48.0 %NOMS HealthcareHemoglobin (Bld) [Mass/Vol]12.7 g/dL12.0 - 16.0 g/dLNOPA HealthcareIMMATURE GRANULOCYTES ABS AUTO0.32HighNOPA HealthcareImmature granulocytes/100 WBC (Bld)1.8 %High0.0 - 0.5 %NOM HealthcareInterpretation and review of laboratory resultsAbnormalNOPA HealthcareLYMPHOCYTES ABSOLUTE AUTO1.5 NOMS HealthcareLymphocytes/100 WBC (Bld)8.3 %Low20.5 - 60.0 %[facility] HospitalH (RBC) [Entitic mass]30.3 pg26.7 - 34.0 pgNOFreeman Heart InstituteHC (RBC) [Mass/Vol]34 g/dL29.9 - 35.2 g/dLJefferson Memorial HospitalV (RBC) [Entitic vol]89 fL81.0 - 99.0 fL NOM HealthcareMONOCYTES ABSOLUTE AUTO0.9HighNOPA HealthcareMonocytes/100 WBC (Bld)5.2 %1.7 - 12.0 %NOM HealthcareNEUTROPHILS ABSOLUTE FEID41SwuwRAKJ HealthcareNeutrophils/100 WBC (Bld)84.1 %High43.0 - 75.0 %[facility] Platelet mean volume (Bld) [Entitic vol]10.4 fL9.5 - 13.5 fLSaint Joseph Health CenterTB EO #0.1NOMS HealthcareTB OKI111BLHKMissouri Delta Medical CenterTB RBC4.19LowNOMissouri Delta Medical CenterTB WBC17.8HighNOPA HealthcareCLINISYNCNOMS HealthcareUS OB INCOMPLETE ANATOMYon 83-46-0741[place] [address] Ultrasound Report Signed Patient: SAMANTHA BENJAMIN MR#: [id number] : 1995 Acct:[id number] Age/Sex: 29 / F ADM Date: 06/15/24 Loc: [facility] Attending Dr: Zhen Dhillon D.O. Ordering Physician: Zhen Dhillon D.O. Date of Service: 06/15/24 Procedure(s): US OB incomplete anatomy Accession Number(s): [id number] cc: Zhen Dhillon D.O.; Jacques Del Rosario M.D. The [address] [address] Patient Name: SAMANTHA BENJAMIN MRN: [id number]:[id number] date: 1995 Sex: F Assigned Patient Location: [facility] Current Patient Location: [facility] Accession/Order Number: [id number] Exam Date: 06/15/2024 14:41 Report Date: 06/17/2024 06:19 At the request of: ZHEN DHILLON Procedure: US OB incomplete anatomy EXAM: US OB incomplete anatomy HISTORY: INCOMPLETE ANATOMY COMPARISON: Ultrasound OB anatomy 05/18/2024 TECHNIQUE: Transabdominal ultrasound FINDINGS: Presentation: Cephalic Heart rate: 154 bpm Anatomy: Spine, three-vessel cord, cord insertion visualized without appreciable abnormality. Suboptimally anatomy: Cardiac outflow tracts could not be adequately evaluated on today's study. GA: 24 weeks 0 days SUSANNA: 10/05/2024 US/US OB incomplete anatomy IMPRESSION: 1. Suboptimal visualization of the cardiac outflow tracts. 2. Adequate visualization of the spine, three-vessel cord, cord insertion; no appreciable abnormality. Electronically authenticated by: MICHELLE LANE Date: 06/17/2024 06:19 Dictated By: Michelle Lane M.D. Signed By: 06/17/24621 DD/ 8 TD/TT: Informatics Scientist:NIKKIEHRadiology, Radiologist, - 06/17/2024 [place] [address] Ultrasound Report Signed Patient: SAMANTHA BENJAMIN MR#: [id number] : 1995 Acct:[id number] Age/Sex: 29 / F ADM Date: 06/15/24 Loc: [facility] Attending Dr: Zhen Dhillon D.O. Ordering Physician: Zhen Dhillon D.O. Date of Service: 06/15/24 Procedure(s): US OB incomplete anatomy Accession Number(s): [id number] cc: Zhen Dhillon D.O.; Jacques Del Rosario M.D. The [place] [address] Patient Name: SAMANTHA BENJAMIN MRN: [id number] date: 1995 Sex: F Assigned Patient Location: [facility] Current Patient Location: [facility] Accession/Order Number: [id number] Exam Date: 06/15/2024 14:41 Report Date: 06/17/2024 06:19 At the request of: ZHEN DHILLON Procedure: US OB incomplete anatomy EXAM: US OB incomplete anatomy HISTORY: INCOMPLETE ANATOMY COMPARISON: Ultrasound OB anatomy 05/18/2024 TECHNIQUE: Transabdominal ultrasound FINDINGS: Presentation: Cephalic Heart rate: 154 bpm Anatomy: Spine, three-vessel cord, cord insertion visualized without appreciable abnormality. Suboptimally anatomy: Cardiac outflow tracts could not be adequately evaluated on today's study. GA: 24 weeks 0 days SUSANNA: 10/05/2024 US/US OB incomplete anatomy IMPRESSION: 1. Suboptimal visualization of the cardiac outflow tracts. 2. Adequate visualization of the spine, three-vessel cord, cord insertion; no appreciable abnormality. Electronically authenticated by: MICHELLE LANE Date: 06/17/2024 06:19 Dictated By: Michelle Lane M.D. Signed By: 06/17/24621 DD/ 8 TD/TT: Informatics Scientist: [facility] CenterRadiology Study observation (narrative)[facility] OB INCOMPLETE ANATOMYOrdered By: Radiologist Radiology on 77-82-9750IGBISaint Joseph Health Center Work Phone: Urinalysis macro (dipstick) panel (U)on 06-15-2024 Bilirubin, UANegativeNegative - 4(70) +++ mg/dLNOMS HealthcareBlood, UANegative Negative - 50 Hardeep/mcLNOMS HealthcareClarity, UAClearNOMS HealthcareColor, UA YellowNOMS HealthcareGlucose, UAPositiveNegative - 2000(110) ++++ mg/dLNOMS HealthcareInterpretation and review of laboratory resultsAbnormalNOMS Healthcare Ketones, UANegativeNegative - 160(16) ++++ mg/dLNOMS HealthcareLeukocytes, UA PositiveNegative - 500+++ Renee/mcLNOMS HealthcareNitrite, UANegativeNegative - PositiveNOMS HealthcarepH, UA5.55 - 9NOMS HealthcareProtein, UANegativeNegative - 2000(20) ++++ mg/dLNOPA HealthcareSpec Grav, UA1.021 - 1.03NOMissouri Delta Medical Center Urobilinogen, UA1.00.2 - 12 mg/dLNOMissouri Delta Medical CenterNOMissouri Delta Medical CenterNo Panel InformationOrdered By: Radiologist Radiology on 43-51-4461QNWJSaint Joseph Health Center Work Phone: No Panel Informationon 51-32-2874Rcsfxjntt Study observation (narrative)NOMS HealthcareUS OB ANATOMYon 54-42-6223Aeq[place], [place] [address] Ultrasound Report Signed Patient: SAMANTHA BENJAMIN MR#: [id number] : 1995 Acct:[id number] Age/Sex: 29 / F ADM Date: 05/18/24 Loc: [facility] Attending Dr: Zhen Dhillon D.O. Ordering Physician: Zhen Dhillon D.O. Date of Service: 05/18/24 Procedure(s): US OB anatomy Accession Number(s): [id number] cc: Zhen Dhillon D.O.; Jacques Del Rosario M.D. [place] [address] Patient Name: SAMANTHA BENJAMIN MRN: [id number] date: 1995 Sex: F Assigned Patient Location: [facility] Current Patient Location: [facility] Accession/Order Number: [id number] Exam Date: 05/18/2024 10:40 Report Date: 05/18/2024 12:45 At the request of: ZHEN DHILLON Procedure: US OB anatomy EXAMINATION: US [...] Lateral ventricles, cerebellum, posterior fossa, nose, lips, orbits, four-chamber heart, diaphragm, stomach, kidneys, abdominal [...] anatomy as detailed related to maternal body habitus and position Viable intrauterine gestation measuring 20 weeks 0 days Closed cervix measuring 5 cm in length *Reference: [employer]UM Practice Guideline for the performance of Obstetric Ultrasound Examinations, May 02, 2007. Electronically authenticated by: IRINEO CUENCA Date: 05/18/2024 12:45 Dictated By: Irineo Cuenca M.D. Signed By: 05/18/24 1247 DD/ TD/TT: Informatics Scientist:NIKKIEHRadiology, Radiologist, - 05/18/2024 [place] [address] Ultrasound Report Signed Patient: SAMANTHA BENJAMIN MR#: [id number] : 1995 Acct:[id number] Age/Sex: 29 / F ADM Date: 05/18/24 Loc: [facility] Attending Dr: Zhen Dhillon D.O. Ordering Physician: Zhen Dhillon D.O. Date of Service: 05/18/24 Procedure(s): US OB anatomy Accession Number(s): [id number] cc: Zhen Dhillon D.O.; Jacques Del Rosario M.D. The [address] [address] Patient Name: SAMANTHA BENJAMIN MRN: [id number] date: 1995 Sex: F Assigned Patient Location: [facility] Current Patient Location: [facility] Accession/Order Number: [id number] Exam Date: 05/18/2024 10:40 Report Date: 05/18/2024 12:45 At the request of: ZHEN DHILLON Procedure: US OB anatomy EXAMINATION: US [...] Lateral ventricles, cerebellum, posterior fossa, nose, lips, orbits, four-chamber heart, diaphragm, stomach, kidneys, abdominal [...] anatomy as detailed related to maternal body habitus and position Viable intrauterine gestation measuring 20 weeks 0 days Closed cervix measuring 5 cm in length *Reference: [employer]UM Practice Guideline for the performance of Obstetric Ultrasound Examinations, May 02, 2007. Electronically authenticated by: IRINEO CUENCA Date: 05/18/2024 12:45 Dictated By: Irineo Cuenca M.D. Signed By: 05/18/24 1247 DD/ 1245 TD/TT: Informatics Scientist: JUNE Olvera OB CERVICAL LENGTHon 63-16-1049[place]tj[place]on, [place] [address] Ultrasound Report Signed Patient: SAMANTHA BENJAMIN MR#: [id number] : 1995 Acct:[id number] Age/Sex: 29 / F ADM Date: 05/18/24 Loc: [facility] Attending Dr: Zhen Dhillon D.O. Ordering Physician: Zhen Dhillon D.O. Date of Service: 05/18/24 Procedure(s): US OB cervical length Accession Number(s): [id number] cc: Zhen Dhillon D.O.; Jacques Del Rosario M.D. [place] [id number] Patient Name: SAMANTHA BENJAMIN MRN: [id number] date: 1995 Sex: F Assigned Patient Location: [facility] Current Patient Location: [facility] Accession/Order Number: [id number] Exam Date: 05/18/2024 10:40 Report Date: 05/18/2024 12:45 At the request of: ZHEN DHILLON Procedure: US OB cervical length EXAMINATION: [...] Lateral ventricles, cerebellum, posterior fossa, nose, lips, orbits, four-chamber heart, diaphragm, stomach, kidneys, abdominal [...] anatomy as detailed related to maternal body habitus and position Viable intrauterine gestation measuring 20 weeks 0 days Closed cervix measuring 5 cm in length *Reference: [employer]UM Practice Guideline for the performance of Obstetric Ultrasound Examinations, May 02, 2007. Electronically authenticated by: IRINEO CUENCA Date: 05/18/2024 12:45 Dictated By: Irineo Cuenca M.D. Signed By: 05/18/24 1247 DD/ 44 TD/TT: Informatics Scientist:TBHRadiology, Radiologist, - 05/18/2024 [place] [address] Ultrasound Report Signed Patient: SAMANTHA BENJAMIN MR#: [id number] : 1995 Acct:[id number] Age/Sex: 29 / F ADM Date: 05/18/24 Loc: [facility] Attending Dr: Zhen Dhillon D.O. Ordering Physician: Zhen Dhiloln D.O. Date of Service: 05/18/24 Procedure(s): US OB cervical length Accession Number(s): [id number] cc: Zhen Dhillon D.O.; Jacques Del Rosario M.D. The [place] [id number] Patient Name: SAMANTHA BENJAMIN MRN: [id number] date: 1995 Sex: F Assigned Patient Location: [facility] Current Patient Location: [facility] Accession/Order Number: [id number] Exam Date: 05/18/2024 10:40 Report Date: 05/18/2024 12:45 At the request of: ZHEN DHILLON Procedure: US OB cervical length EXAMINATION: [...] Lateral ventricles, cerebellum, posterior fossa, nose, lips, orbits, four-chamber heart, diaphragm, stomach, kidneys, abdominal [...] anatomy as detailed related to maternal body habitus and position Viable intrauterine gestation measuring 20 weeks 0 days Closed cervix measuring 5 cm in length *Reference: [employer]UM Practice Guideline for the performance of Obstetric Ultrasound Examinations, May 02, 2007. Electronically authenticated by: IRINEO CUENCA Date: 05/18/2024 12:45 Dictated By: Irineo Cuenca M.D. Signed By: 05/18/24 1247 DD/ 44 TD/TT: Informatics Scientist: JUNE HealthcareUrinalysis macro (dipstick) panel (U)on 34-00-3841Pdxdnxish, UA NegativeNegative - 4(70) +++ mg/dLNOMS HealthcareBlood, UANegativeNegative - 50 Hardeep/mcLNOMS HealthcareClarity, UAClearNOMS HealthcareColor, UAYellowNOMS HealthcareGlucose, UANegativeNegative - 2000(110) ++++ mg/dLNOMS Healthcare Interpretation and review of laboratory resultsNormalNOMS HealthcareKetones, UA NegativeNegative - 160(16) ++++ mg/dLNOMS HealthcareLeukocytes, UANegative Negative - 500+++ Renee/mcLNOMS HealthcareNitrite, UANegativeNegative - Positive NOMS HealthcarepH, UA75 - 9NOMS HealthcareProtein, UANegativeNegative - 2000(20) ++++ mg/dLNOMS HealthcareSpec Grav, UA1.0251 - 1.03NOMS HealthcareUrobilinogen, UA0.20.2 - 12 mg/dLNOMS HealthcareNOMS HealthcareUrinalysis macro (dipstick) panel (U)on 28-73-9131Ghfaxpbma, UAPositiveNegative - 4(70) +++ mg/dLNOMS HealthcareComment on above:smallBlood, UANegativeNegative - 50 Hardeep/mcLNOMS HealthcareClarity, UAClearNOMS HealthcareColor, UAYellowNOMS HealthcareGlucose, UANegativeNegative - 2000(110) ++++ mg/dLNOMS HealthcareInterpretation and review of laboratory resultsAbnormalNOMS HealthcareKetones, UAPositiveNegative - 160(16) ++++ mg/dLNOMS HealthcareComment on above:traceLeukocytes, UANegative Negative - 500+++ Renee/mcLNOMS HealthcareNitrite, UANegativeNegative - Positive NOMS HealthcarepH, UA6.55 - 9NOMS HealthcareProtein, UATraceNegative - 2000(20) ++++ mg/dLNOMS HealthcareSpec Grav, UA1.0301 - 1.03NOMS HealthcareUrobilinogen, UA1.00.2 - 12 mg/dLNOMS HealthcareNOMS HealthcareUS OB TRANSVAGINALon 02-11-[address] [address] Ultrasound Report Signed Patient: Samantha [place] MR#: [id number] : 1995 Acct:[id number] Age/Sex: 28 / F ADM Date: 02/11/24 Loc: [facility] Attending Dr: Zhen Dhillon D.O. Ordering Physician: Zhen Dhillon D.O. Date of Service: 02/11/24 Procedure(s): US OB transvaginal Accession Number(s): [id number] cc: Zhen Dhillon D.O.; Jacques Del Rosario M.D. The [place] [address] Patient Name: SAMANTHA BENJAMIN MRN: [id number] date: 1995 Sex: F Assigned Patient Location: [facility] Current Patient Location: [facility] Accession/Order Number: [id number] Exam Date: 02/11/2024 08:11 Report Date: 02/11/2024 08:47 At the request of: ZHEN DHILLON Procedure: US OB transvaginal EXAMINATION: US [...] 6 weeks 1 day Electronically authenticated by: IRNIEO CUENCA Date: 02/11/2024 08:47 Dictated By: Irineo Cuenca M.D. Signed By: 02/11/24 0850 DD/ TD/TT: Informatics Scientist:NIKKIEHRadiology, Radiologist, MD - 02/11/2024 [place] [address] Ultrasound Report Signed Patient: Samantha [place] MR#: [id number] : 1995 Acct:[id number] Age/Sex: 28 / F ADM Date: 02/11/24 Loc: [facility] Attending Dr: Zhen Dhillon D.O. Ordering Physician: Zhen Dhillon D.O. Date of Service: 02/11/24 Procedure(s): US OB transvaginal Accession Number(s): [id number] cc: Zhen Dhillon D.O.; Jacques Del Rosario M.D. [place] [address] Patient Name: SAMANTHA BENJAMIN MRN: [id number] date: 1995 Sex: F Assigned Patient Location: [facility] Current Patient Location: [facility] Accession/Order Number: [id number] Exam Date: 02/11/2024 08:11 Report Date: 02/11/2024 08:47 At the request of: ZHEN DHILLON Procedure: US OB transvaginal EXAMINATION: US [...] weeks 1 day Electronically authenticated by: IRINEO CUENCA Date: 02/11/2024 08:47 Dictated By: Irineo Cuenca M.D. Signed By: 02/11/2450 DD/ 6 TD/TT: Informatics Scientist: JUNE HealthcareRadiology Study observation (narrative)[facility] FOR BOYSJoshua HealthcareUS OB TRANSVAGINALOrdered By: Radiologist Radiology on 47-95-8077PZXJ Healthcare Work Phone: Activated partial thromboplastin time (aPTT) in platelet poor plasma by coagulation aOrdered By: Terry Dudley on 73-62-2253dWXU Coag (PPP) [Time]26.1 s25.1-36.5FCleveland Clinic Mentor HospitalComment on above:A hematocrit value greater than 55% may lead to inaccurate results in coagulation testing. Patientshaving hematocrit values >55% require a special collection tube for coagulation studies. Please contact the laboratory at [phone] for redraw instructions.Alanine aminotransferase [Enzymatic activity/volume] in Serum or PlasmaOrdered By: Terry Dudley on 90-22-9287WSQ [Catalytic activity/Vol]22 U/L7-52[facility] CenterAlbumin [Mass/volume] in Serum or Plasma by Bromocresol green (BCG) dye binding metho Ordered By: Terry Dudley on 80-13-2922Zfuchrz BCG dye [Mass/Vol]4.7 g/dL3.5-5.7 [facility] CenterAlkaline phosphatase [Enzymatic activity/volume] in Serum or PlasmaOrdered By: Terry Dudley on 55-25-0616EUP [Catalytic activity/Vol]67 U/Q47-900MaingcbyaCincinnati Va Medical CenterAspartate aminotransferase [Enzymatic activity/volume] in Serum or PlasmaOrdered By: Terry Dudley on 75-64-2652CKR [Catalytic activity/Vol]17 U/A09-04IjsdzbxiuCincinnati Va Medical CenterBasophils Auto (Bld) [#/Vol]Ordered By: Terry Dudley on 50-11-2359Gkuefvblk (Bld) [#/Vol]0.1 10*3/uL0.0-0.2FCleveland Clinic Mentor HospitalBasophils/100 WBC Auto (Bld)Ordered By: Terry Dudley on 01-31-2024 Basophils/100 WBC (Bld)0.6 %.[facility] CenterBilirubin Test strip Ql (U)Ordered By: Terry Dudley on 68-19-2672Yegltjfcj Ql (U)Negative NegativeCincinnati Va Medical CenterBilirubin.total [Mass/volume] in Serum or PlasmaOrdered By: Terry Dudley on 51-58-8831Xpwxynomx [Mass/Vol]0.5 mg/dL 0.3-1.0[facility] CenterCalcium [Mass/volume] in Serum or Plasma Ordered By: Terry Dudley on 15-88-7615Mjoqxrl [Mass/Vol]9.6 mg/dL8.6-10.3 [facility] CenterCarbon dioxide, total [Moles/volume] in Serum or PlasmaOrdered By: Terry Dudley on 14-12-7096FY7 [Moles/Vol]30.1 mmol/L 21.0-31.0[facility] CenterChloride [Moles/volume] in Serum or PlasmaOrdered By: Terry Dudley on 74-58-1978Jpzamefu [Moles/Vol]101 mmol/L98-107 [facility] CenterColor Auto (U)Ordered By: Terry Dudley on 24-56-6438Wljhx (U)ColorlessYellowCincinnati Va Medical CenterCreatine kinase [Enzymatic activity/volume] in Serum or PlasmaOrdered By: Terry Dudley on 09-71-7092WH [Catalytic activity/Vol]76 U/I64-783HvgqqkdkfCincinnati Va Medical CenterCreatinine [Mass/volume] in Serum or PlasmaOrdered By: Terry Dudley on 38-16-8478Tgelsmaxof [Mass/Vol]0.80 mg/dL0.60-1.20[facility] CenterEosinophils Auto (Bld) [#/Vol]Ordered By: Terry Dudley on 01-31-2024 Eosinophils (Bld) [#/Vol]0.1 10*3/uL0.0-0.45[facility] Eosinophils/100 WBC Auto (Bld)Ordered By: Terry Dudley on 01-31-2024 Eosinophils/100 WBC (Bld)0.3 %.[facility] CenterErythrocyte distribution width Auto (RBC) [Ratio]Ordered By: Terry Dudley on 01-31-2024 Erythrocyte distribution width (RBC) [Ratio]12.4 %11.9-15.3FCleveland Clinic Mentor HospitalFibrin D-dimer [Presence] in Platelet poor plasma by Latex agglutinationOrdered By: Terry Dudley on 48-55-1908Louwsn D-dimer LA Ql (PPP)< 200 ng/mL0-243C[facility] Medical CenterComment on above:The reference range for D-dimer is [...] coagulation studies. Please contact the laboratory at [phone] for redraw instructions.Globulin Calc (S) [Mass/Vol]Ordered By: Terry Dudley on 30-30-2809Vojiwbgv (S) [Mass/Vol]3.0 g/dLCincinnati Va Medical Center Glucose [Mass/volume] in Serum or PlasmaOrdered By: Terry Dudley on 01-31-2024 Glucose [Mass/Vol]91 mg/eW97-225TzmxewahyCincinnati Va Medical CenterComment on above:ADA recommended reference rangeRandom Glucose Reference Range is dependent on time and content of last meal. Glucose of more than 200 mg/dL in a nonstressed, ambulatory subject supports the diagnosisof Diabetes Mellitus. Glucose [Mass/volume] in Urine by Test stripOrdered By: Terry Dudley on 80-11-3611Uqvvibt Test strip (U) [Mass/Vol]Normal mg/dLNormalCincinnati Va Medical CenterHCG ( test) IA.rapid Ql (U)Ordered By: Terry Dudley on 89-82-9576DIB ( test) Ql (U)PositiveHighCincinnati Va Medical CenterHematocrit Auto (Bld) [Volume fraction]Ordered By: Terry Dudley on 22-50-8962Uqouilshqk (Bld) [Volume fraction]45.1 %34.0-46.4FCleveland Clinic Mentor HospitalHemoglobin Test strip Ql (U)Ordered By: Terry Dudley on 01-31-2024 Hemoglobin Ql (U)NegativeNegativeCincinnati Va Medical CenterHemoglobin [Mass/volume] in BloodOrdered By: Terry Dudley on 28-41-9382Oylltwsehw (Bld) [Mass/Vol]15.6 g/xGLvbz27.8-15.4FCleveland Clinic Mentor HospitalINR in Platelet poor plasma by Coagulation assayOrdered By: Terry Dudley on 21-12-3817WXT Coag (PPP) [Relative time]1.2 {INR}[facility] CenterComment on above: INR Therapeutic Range A) Pre- and Peroperative OAT started two weeks before surgery. NOT HIP SURGERY: 1.5 - 2.5 HIP SURGERY: 2 - 3B) Primary and secondary prevention of venous THROMBOSIS: 2 - 3C) Active venous thrombosis, pulmonary embolismand prevention of recurrent venous thrombosis: 2 - 3D) Prevention of arterial thromboembolismincluding patients with mechanical heart valves: 3 - 4.5 Ketones Test strip Ql (U)Ordered By: Terry Dudley on 17-64-9317Mdqqgup Ql (U) NegativeNegativeCincinnati Va Medical CenterLeukocyte esterase [Presence] in Urine by Test stripOrdered By: Terry Dudley on 80-47-6001Mlvanxfht esterase Test strip Ql (U)NegativeNegativeCincinnati Va Medical CenterLeukocytes [#/volume] corrected for nucleated erythrocytes in Blood by Automated coun Ordered By: Terry Dudley on 28-65-8837RGC corrected for nucl RBC Auto (Bld) [#/Vol]17.5 10*3/uLHigh3.8-11.6FCleveland Clinic Mentor HospitalLymphocytes Auto (Bld) [#/Vol]Ordered By: Terry Dudley on 36-99-6557Iluklouacus (Bld) [#/Vol]2.1 10*3/uL1.00-4.8[facility] Medical CenterLymphocytes/100 WBC Auto (Bld) Ordered By: Terry Dudley on 42-72-3176Eyynphfflut/100 WBC (Bld)11.8 %.[facility] Auto (RBC) [Entitic mass]Ordered By: Terry Dudley on 68-80-1532[facility] (RBC) [Entitic mass]31.7 pg24.7-34.3Fire[facility] Medical CenterMCHC Auto (RBC) [Mass/Vol]Ordered By: Terry Dudley on 14-36-1523AEUM (RBC) [Mass/Vol]34.6 g/dL32.0-35.0[facility] CenterMCV Auto (RBC) [Entitic vol]Ordered By: Terry Dudley on 09-35-2634APN (RBC) [Entitic vol]91.4 tH51-018UvyuzwiaxCincinnati Va Medical CenterMonocyte distribution width [Entitic volume] in Blood by AutomatedOrdered By: Terry Dudley on 73-59-4006Jcltdvav distribution width Auto (Bld) [Entitic vol]14.85 %0.00-20.00[facility] CenterMonocytes Auto (Bld) [#/Vol]Ordered By: Terry Dudley on 01-31-2024 Monocytes (Bld) [#/Vol]1.3 10*3/uLHigh0.0-0.8[facility] Monocytes/100 WBC Auto (Bld)Ordered By: Terry Dudley on 13-10-3957Dipvvarrv/100 WBC (Bld)7.5 %.[facility] CenterNatriuretic peptide B [Mass/Vol] Ordered By: Terry Dudley on 99-86-2242Jpodktrokni peptide B (Bld) [Mass/Vol]30.0 pg/mL5-100[facility] CenterNeutrophils Auto (Bld) [#/Vol] Ordered By: eTrry Dudley on 90-76-4710Bgvbmiikqee (Bld) [#/Vol]14.0 10*3/uLHigh 1.8-7.7FCleveland Clinic Mentor HospitalNeutrophils/100 WBC Auto (Bld)Ordered By: Terry Dudley on 11-61-0844Cudzbpmwyfj/100 WBC (Bld)79.8 %.[facility] CenterNitrite Test strip Ql (U)Ordered By: Terry Dudley on 01-31-2024 Nitrite Ql (U)NegativeNegativeCincinnati Va Medical CenterNo Panel InformationOrdered By: Terry Dudley on 37-89-4921Prakxpdqq GFR (CKD-EPI)> 60.0 mL/MinCincinnati Va Medical CenterPharmacy Creatinine Clearance (Zfwe341.17 [facility] CenterNucleated erythrocytes [Presence] in Blood by Automated countOrdered By: Terry Dudley on 46-29-8040Fbznjzvyt RBC Auto Ql (Bld) 0.0 /100{WBC}0-0.5FCleveland Clinic Mentor HospitalPlatelet mean volume Auto (Bld) [Entitic vol]Ordered By: Terry Dudley on 97-04-2454Cpjsdtmf mean volume (Bld) [Entitic vol]8.7 fL6.3-10.7FCleveland Clinic Mentor HospitalPlatelets Auto (Bld) [#/Vol]Ordered By: Terry Dudley on 81-37-6584Hoetrxwmv (Bld) [#/Vol]297 10*3/iM844-484DymosgpbdCincinnati Va Medical CenterPotassium [Moles/volume] in Serum or PlasmaOrdered By: Terry Dudley on 49-27-3743Cambyvekk [Moles/Vol]3.4 mmol/L Low3.5-5.1FCleveland Clinic Mentor HospitalProtein Test strip (U) [Mass/Vol] Ordered By: Terry Dudley on 01-54-6529Xvwszbs (U) [Mass/Vol]NegativeNegative [facility] CenterProtein [Mass/volume] in Serum or PlasmaOrdered By: Terry Dudley on 14-76-0837Fjizitw [Mass/Vol]7.7 g/dL6.4-8.9[facility] CenterProthrombin time (PT)Ordered By: Terry Dudley on 47-06-0571ZH Coag (PPP) [Time]14.0 sHigh9.0-12.9[facility] CenterComment on above:A hematocrit value greater than 55% may lead to inaccurate results in coagulation testing. Patientshaving hematocrit values >55% require a special collection tube for coagulation studies. Please contact the laboratory at [phone] for redraw instructions.RBC Auto (Bld) [#/Vol]Ordered By: Terry Dudley on 96-07-9239JJH (Bld) [#/Vol]4.93 10*6/uL3.60-5.00Mari[facility] Osteopathic Clinicerum or plasma albumin/globulin mass ratioOrdered By: Terry Dudley on 94-24-5695Zpupfyl/Globulin [Mass ratio]1.6 {ratio}[facility] Osteopathic Clinicerum or plasma anion gap determinationOrdered By: Terry Dudley on 96-86-9155Sjzao gap [Moles/Vol]8.3 mmol/L6.0-15.0M[facility] Osteopathic Clinicodium [Moles/volume] in Serum or PlasmaOrdered By: Terry Dudley on 83-41-3605Mzgbyf [Moles/Vol]136 mmol/W321-883DmsouqtmzMarietta Osteopathic Clinicpecific gravity Test strip (U) [Rel density]Ordered By: Terry Dudley on 19-26-8372Kpevipfa gravity (U) [Rel density]1.0051.001-1.030[facility] CenterTroponin I.cardiac [Mass/volume] in Serum or Plasma by Detection limit <= 0.01 ng/Ordered By: Terry Dudley on 53-91-0432Jxvmbwgs I.cardiac DL <= 0.01 ng/mL [Mass/Vol]3.5 pg/mL0.0-15.0[facility] CenterUrea nitrogen [Mass/volume] in Serum or PlasmaOrdered By: Terry Dudley on 93-43-0076Vatv nitrogen [Mass/Vol]10 mg/dL7-25[facility] Urine appearanceOrdered By: Terry Dudley on 13-63-2952Qsysybjtlz (U)ClearClear [facility] CenterUrobilinogen Test strip (U) [Mass/Vol]Ordered By: Terry Dudley on 22-24-0106Zkdvhbjtxurk (U) [Mass/Vol]Normal mg/dLNormal [facility] CenterWBC Auto (Bld) [#/Vol]Ordered By: Terry Dudley on 53-02-8265AMJ (Bld) [#/Vol]17.5 10*3/uLHigh3.8-11.6FCleveland Clinic Mentor HospitalpH Test strip (U)Ordered By: Terry Dudley on 10-73-6280uV (U)6.5 [pH] 5.0-9.0[facility] CenterPAP ACOG PANEL 2: 21 to 29on 10-14-2021. .NormalThe [facility] on above:Performed By: #### PTT #### [facility] [address] [place] [address] Kaela Friend Gdln ACOG Tykcwaj27-60VczzmmBvjThe [facility] on above:Performed By: #### PTT #### [facility] [address] [place] [address] Kaela KarenDIAGNOSIS:CommentWilson Street Hospital on above:Result Comment: NEGATIVE FOR INTRAEPITHELIAL LESION OR MALIGNANCY. CELLULAR CHANGES ASSOCIATED WITH INFLAMMATION ARE PRESENT.Performed By: #### PTT #### [facility] [address] [place] [address] Kaela KarenMethodology:CommentWilson [address] Hospital on above: Result Comment: This liquid based ThinPrep(R) pap test was screened with the use of an image guided system.Performed By: #### PTT #### [facility] [address] [place] [address] Kaela SahuenNote:CommentNoThe [facility] on above:Result Comment: The Pap smear is a screening test designed to aid in the detection of premalignant and malignant conditions of the uterine cervix. It is not a diagnostic procedure and should not be used as the sole means of detecting cervical cancer. Both false-positive and false-negative reports do occur. .Performed By: #### PTT #### [facility] [address] [place] [address] Kaela KarenPerformed by:CommentWilson Street Hospital on above: Result Comment: Kenyetta Collins, Hydrologic Modeler (ASCP)Performed By: #### PTT #### [facility] [address] [place] [address] Kaela KarenReflex Criteria:CommentWilson Street Hospital on above: Result Comment: The HPV DNA reflex criteria were not met with this specimen result therefore, no HPV testing was performed. .Performed By: #### PTT #### [facility] [address] [place] [address] Kaela KarenSpecimen adequacy:CommentNormalThe [facility]ita Health SystemComment on above:Result Comment: Satisfactory for evaluation. Endocervical and/or squamous metaplastic cells (endocervical component) are present.Performed By: #### PTT #### [facility] [address] [place] [address] Kaela KarenCBC AUTO DIFFon 69-22-2635KTSQ #0.1 103/ulNormal0.0-0.1The [facility] SystemComment on above:Performed By: #### CBC #### [facility] [address] [place] [address] Kaela KarenBasophils/100 WBC (Bld)0.3 %Normal0.2-2.0The [facility] Comment on above:Performed By: #### CBC #### [facility] [address] [place] [address] Kaela KarenEO #0.1 103/ulNormal0.0-0.7The [facility] Health SystemComment on above: Performed By: #### CBC #### [facility] [address] [place] [address] Kaela KarenEosinophils/100 WBC (Bld)0.5 %Critically low0.9-7.0The [facility] Health SystemComment on above:Performed By: #### CBC #### [facility] [address] [place] [address] Kaela KarenErythrocyte distribution width (RBC) [Ratio]12.3 %Rlkmwj09.0-15.0The [facility] SystemComment on above:Performed By: #### CBC #### [facility] [address] [place] [address] Kaela KarenHematocrit (Bld) [Volume fraction]33.8 %Critically low36.0-48.0The [facility]ita Health SystemComment on above:Performed By: #### CBC #### [facility] [address] [place] [address] Kaela KarenHemoglobin (Bld) [Mass/Vol]11.6 g/dLCritically low12.0-16.0The [facility] SystemComment on above:Performed By: #### CBC #### [facility] [address] [address] Kaela KarenIG #0.20 10e3/ulCritically high0.00-0.03The [facility] SystemComment on above:Performed By: #### CBC #### [facility] [address] [place] [address] Kaela KarenIG %1.2 %Critically high0.0-0.5The [facility] Health SystemComment on above:Performed By: #### CBC #### [facility] [address] [place] [address] Kaela KarenLYMPH #1.6 103/ulNormal1.2-3.8The [facility] SystemComment on above: Performed By: #### CBC #### [facility] [address] [place] [address] Kaela KarenLymphocytes/100 WBC (Bld)9.2 %Critically low20.5-60.0[facility] HospitalComment on above:Performed By: #### CBC #### [facility] [address] [place] [address] Kaela KarenMANUAL DIFF REQNONormalThe [facility] Health SystemComment on above: Performed By: #### CBC #### [facility] [address] [place] [address] Kaela KarenMCH (RBC) [Entitic mass]30.8 ylAaiwuc93.7-34.0[facility] Comment on above:Performed By: #### CBC #### [facility] [address] [place] [address] Kaela KarenMCHC (RBC) [Mass/Vol]34.3 g/vJWnixav67.9-35.2[facility] Comment on above:Performed By: #### CBC #### [facility] [address] [place] [address] Kaela KarenMCV (RBC) [Entitic vol]89.7 vMEzkmrf61.0-99.0[facility] Comment on above:Performed By: #### CBC #### [facility] [address] [address] Kaela KarenMONO #0.9 103/ulCritically high0.3-0.8The [facility] SystemComment on above:Performed By: #### CBC #### [facility] [address] [place] [address] Kaela KarenMonocytes/100 WBC (Bld)5.5 %Normal1.7-12.0The [facility] Comment on above:Performed By: #### CBC #### [facility] [address] [place] [address] Kaelastephanie SahuenNEUT #14.1 103/ulCritically high1.4-6.5The [facility] SystemComment on above:Performed By: #### CBC #### [facility] [address] [place] [address] Kaela KarenNeutrophils/100 WBC (Bld)83.3 %Critically high43.0-75.0The [facility] Health SystemComment on above:Performed By: #### CBC #### [facility] [address] [place] [address] Kaela KarenPlatelet mean volume (Bld) [Entitic vol]11.0 fLNormal9.5-13.5The [facility] Health SystemComment on above:Performed By: #### CBC #### [facility] [address] [place] [address] Kaela YuonbYBA275 103/vyRdlkzf117-438Ejy [facility] SystemComment on above: Performed By: #### CBC #### [facility] [address] [place] [address] Kaela KarenRBC3.77 106/ulCritically low4.20-5.40The [facility] SystemComment on above:Performed By: #### CBC #### [facility] [address] [place] [address] Kaela YwzcdSAJ70.9 103/ulCritically high4.0-11.0The [facility] SystemComment on above:Performed By: #### CBC #### [facility] [address] [place] [address] Kaela SahuenASYMPTOMATIC COVID-19 ANTIGENon [id number] StatementSEE BELOW NormalThe [facility] Health SystemComment on above:Result Comment: This test has not [...] is revoked sooner.Performed By: #### GTT3P #### [facility] [address] [place] [address] Kaela LutzQmsnvBMGG-HeZ-9 (COVID-19) RNA RIGOBERTO+probe Ql (Unsp spec)NegativeNormal NEGATIVEThe [facility] Health SystemComment on above:Result Comment: Negative results are presumptive. They do not preclude infection and should not be used as the sole basis for treatment decisions. Additional confirmatory testing by a molecular method should be considered.Performed By: #### GTT3P #### [facility] [address] [place] [address] Kaela SahuenCBC AUTO DIFFon [id number] #0.1 103/ulNormal0.0-0.1The [facility] Health SystemComment on above:Performed By: #### CBC #### [facility] [address] [place], [place] [id number] Kaela SahuenBasophils/100 WBC (Bld)0.3 %Normal0.2-2.0The [facility] Comment on above:Performed By: #### CBC #### [facility] [address] [place] [address] Kaela KarenEO #0.1 103/ulNormal0.0-0.7The [facility] SystemComment on above: Performed By: #### CBC #### [facility] [address] [place] [address] Kaela KarenEosinophils/100 WBC (Bld)0.3 %Critically low0.9-7.0The [facility] Health SystemComment on above:Performed By: #### CBC #### [facility] [address] [place] [address] Kaela KarenErythrocyte distribution width (RBC) [Ratio]12.0 %Vqvvzc69.0-15.0The [facility] Health SystemComment on above:Performed By: #### CBC #### [facility] [address] [place] [address] Kaela KarenHematocrit (Bld) [Volume fraction]36.9 %Azwozw60.0-48.0The [facility] SystemComment on above:Performed By: #### CBC #### [facility] [address] [place] [address] Kaela KarenHemoglobin (Bld) [Mass/Vol]12.7 g/dDIkjkgc75.0-16.0The [facility] SystemComment on above:Performed By: #### CBC #### [facility] [address] [place] [address] Kaela KarenIG #0.19 10e3/ulCritically high0.00-0.03The [facility] SystemComment on above:Performed By: #### CBC #### [facility] [address] [place] [address] Kaela KarenIG %1.0 %Critically high0.0-0.5The [facility] SystemComment on above:Performed By: #### CBC #### [facility] [address] [place] [address] Kaela KarenLYMPH #1.4 103/ulNormal1.2-3.8The [facility] SystemComment on above: Performed By: #### CBC #### [facility] [address] [place] [address] Kaela KarenLymphocytes/100 WBC (Bld)7.6 %Critically low20.5-60.0[facility] HospitalComment on above:Performed By: #### CBC #### [facility] [address] [place] [address] Kaela KarenMANUAL DIFF REQNONormalThe [facility] Health SystemComment on above: Performed By: #### CBC #### [facility] [address] [place] [address] Kaela KarchristalMCH (RBC) [Entitic mass]30.5 lyDkelgy11.7-34.0[facility] Comment on above:Performed By: #### CBC #### [facility] [address] [place] [address] Kaela KarenMCHC (RBC) [Mass/Vol]34.4 g/wTCzkizc87.9-35.2[facility] Comment on above:Performed By: #### CBC #### [facility] [address] [place] [address] Kaela DimasMCV (RBC) [Entitic vol]88.5 pBNixwfc50.0-99.0[facility] Comment on above:Performed By: #### CBC #### [facility] [address] [place] [address] Kaela KarchristalMONO #1.0 103/ulCritically high0.3-0.8The [facility] SystemComment on above:Performed By: #### CBC #### [facility] [address] [place] [address] Kaela KarenMonocytes/100 WBC (Bld)5.5 %Normal1.7-12.0[facility] Comment on above:Performed By: #### CBC #### [facility] [address] [place] [address] Kaelastephanie SahuenNEUT #15.7 103/ulCritically high1.4-6.5The [facility] Health SystemComment on above:Performed By: #### CBC #### [facility] [address] [place] [address] Kaela KarenNeutrophils/100 WBC (Bld)85.3 %Critically high43.0-75.0The [facility] SystemComment on above:Performed By: #### CBC #### [facility] [address] [place] [address] Kaela DimasPlatelet mean volume (Bld) [Entitic vol]11.8 fLNormal9.5-13.5The [facility] HospitalComment on above:Performed By: #### CBC #### [facility] [address] [place] [address] Kaela ZqfxiTRX460 103/wsZbyjdq411-448Kxb [facility] HospitalComment on above: Performed By: #### CBC #### [facility] [address] [place] [address] Kaela KarenRBC4.17 106/ulCritically low4.20-5.40The [facility] SystemComment on above:Performed By: #### CBC #### [facility] [address] [place] [address] Kaela SahuenWBC18.5 103/ulCritically high4.0-11.0The [facility] SystemComment on above:Performed By: #### CBC #### [facility] [address] [place] [address] Kaela KarenDRUG SCREEN RAPID (URINE)on [id number]JNsd [facility] HospitalComasc[facility] on above:Performed By: #### DRUGRPD #### [facility] [address] [place] [address] Kaela KarenBARNegativeNormalNEGATIVEKeenan Private HospitalComment on above: Performed By: #### DRUGRPD #### [facility] [address] [place] [address] Kaela KarenBUPNegativeNormalNEGATIVEKeenan Private HospitalComment on above: Performed By: #### DRUGRPD #### [facility] [address] [place] [address] Kaela KarenBZONegativeNormalNEGATIVEKeenan Private HospitalComment on above: Performed By: #### DRUGRPD #### [facility] [address] [place] [address] Kaela KarenCOCNegativeNormalNEGATIVEKeenan Private HospitalComment on above: Performed By: #### DRUGRPD #### [facility] [address] [place] [address] Kaela KarenCUT-OFFSSEE BELOWNoalThe [facility] Health SystemComment on above:Result Comment: AMP (Amphetamine): 500ng/mL, BAR (Barbituates): 200 ng/mL, BZO (Benzodiazepines): 150 ng/mL, BUP (Buprenorphine): 10 ng/mL, JERRY (Cocaine): 150 ng/mL, mAMP (Methamphetamine): 500 ng/mL, MTD (Methadone): 200 ng/mL, OPI (Opiates): 100 ng/mL, OXY (Oxycodone): 100 ng/mL, PCP (Phencyclidine): 25 ng/mL, PPX (Propoxyphene): 300 ng/mL, THC (Cannabinoids): 50 ng/mL, TCA (Trycyclic Antidepressants): 300 ng/mLPerformed By: #### DRUGRPD #### [facility] [address] [place] [address] KarenDRUG CUT HEADERDRUG CLASS TEST SYSTEM CUT-OFF CONCENTRATIONS ARE FOLLOWS:NormalThe [facility] Health SystemComment on above:Performed By: #### DRUGRPD #### [facility] [address] [place] [address] Kaela KarenmAMPNegativeNormalNEGATIVEKeenan Private HospitalComment on above: Performed By: #### DRUGRPD #### [facility] [address] [place] [address] Kaela KarenMTDNegativeNormalNEGATIVEKeenan Private HospitalComment on above: Performed By: #### DRUGRPD #### [facility] [address] [place] [address] Kaela KarenOPINegativeNormalNEGATIVEKeenan Private HospitalComment on above: Performed By: #### DRUGRPD #### [facility] [address] [place] [address] Kaela KarenOXYNegativeNormalNEGATIVEKeenan Private HospitalComment on above: Performed By: #### DRUGRPD #### [facility] [address] [place] [address] Kaela KarenPCPNegativeNormalNEGATIVEKeenan Private HospitalComment on above: Performed By: #### DRUGRPD #### [facility] [address] [place] [address] Kaela KarenPPXNegativeNormalNEGATIVEHighland District Hospital HospitalComment on above: Performed By: #### DRUGRPD #### [facility] [address] [place] [address] Kaela KarenTCANegativeNormalNEGATIVEKeenan Private HospitalComment on above: Performed By: #### DRUGRPD #### [facility] [address] [place] [address] Kaela KarenTHCNegativeNormalNEGATIVEKeenan Private HospitalComment on above: Performed By: #### DRUGRPD #### [facility] [address] [place] [address] Kaela KarenTYPE AND SCREENon [id number] AND SCREENNegativeNormalThe [facility] HospitalComment on above:Performed By: #### PTT #### [facility] [address] [place] [address] Kaela SahuenGROUP B STREP CULTUREon 01-30-2021. agalactiae Ag Ql (Unsp spec) Culture Observations: NEGATIVE FOR GROUP B STREPTOCOCCUS.NormalKeenan Private HospitalComment on above: Performed By: #### PTT #### [facility] [address] [place] [address] Kaela SahuenUS PREG BIOPHY W NON STRESSon [id number] PREG BIOPHY W NON STRESS EXAMINATION: US [...] Electronically authenticated by: MICHELLE LANE Date: 2021-01-30 08:23[facility] PREG GROWTHon [id number] PREG GROWTHEXAMINATION: US PREG GROWTH HISTORY: Pre-existing [...] Electronically authenticated by: MICHELLE LANE Date: 2021-01-30 08:25[facility] PREG BIOPHY W NON STRESSon [id number] PREG BIOPHY W NON STRESSEXAMINATION: US PREG [...] Electronically authenticated by: MICHELLE LANE Date: 2021-01-23 07:22[facility] BIOP[facility] W NON STRESSon [id number] PREG BIOPHY W NON STRESSEXAMINATION: US PREG [...] Electronically authenticated by: MICHELLE LANE Date: 2021-01-16 07:31[facility] CenterPROTEIN 24HR URINEon 01-14-2021T PROT, 24 HR UR603.9 mg/24 hr Critically high42.0-225.0[facility] HospitalComment on above:Performed By: #### GTT3P #### [facility] [address] [place] [address] Kaela KarenUR PROT12.2 mg/dLCritically high<=12.0[facility] HospitalComment on above:Performed By: #### GTT3P #### [facility] [address] [place] [address] Kaela KarenUR TOT SDA3796 ml/24 HRNormDiley Ridge Medical CenterComment on above: Performed By: #### GTT3P #### [facility] [address] [place] [address] Kaela KarenCBC AUTO DIFFon [id number] #0.0 103/ulNormal0.0-0.1The [facility] SystemComment on above:Performed By: #### GTT3P #### [facility] [address] [place] [address] Kaela KarenBasophils/100 WBC (Bld)0.2 %Normal0.2-2.0The [facility] Comment on above:Performed By: #### GTT3P #### [facility] [address] [place] [address] Kaela KarenEO #0.1 103/ulNormal0.0-0.7The [facility] SystemComment on above: Performed By: #### GTT3P #### [facility] [address] [place], [place] [id number] Kaela KarenEosinophils/100 WBC (Bld)0.6 %Critically low0.9-7.0The [facility] SystemComment on above:Performed By: #### GTT3P #### [facility] [address] [place] [address] Kaela KarenErythrocyte distribution width (RBC) [Ratio]11.7 %Cfbbzy44.0-15.0The [facility] SystemComment on above:Performed By: #### GTT3P #### [facility] [address] [place] [address] Kaela KarenHematocrit (Bld) [Volume fraction]34.5 %Critically low36.0-48.0The [facility] SystemComment on above:Performed By: #### GTT3P #### [facility] [address] [place] [address] Kaela KarenHemoglobin (Bld) [Mass/Vol]12.1 g/vJYugzlv74.0-16.0The [facility] SystemComment on above:Performed By: #### GTT3P #### [facility] [address] [place] [address] Kaela KarenIG #0.20 10e3/ulCritically high0.00-0.03The [facility] SystemComment on above:Performed By: #### GTT3P #### [facility] [address] [place] [address] Kaela KarenIG %1.2 %Critically high0.0-0.5The [facility] SystemComment on above:Performed By: #### GTT3P #### [facility] [address] [place] [address] Kaela KarenLYMPH #1.5 103/ulNormal1.2-3.8The [facility] SystemComment on above: Performed By: #### GTT3P #### [facility] [address] [id number] Kaela KarenLymphocytes/100 WBC (Bld)8.6 %Critically low20.5-60.0[facility] HospitalComment on above:Performed By: #### GTT3P #### [facility] [address] [id number] Kaela KarenMANUAL DIFF REQNONormalThe [facility] SystemComment on above: Performed By: #### GTT3P #### [facility] [address] [address] Kaela KarenMCH (RBC) [Entitic mass]30.6 fqYdxcmu99.7-34.0[facility] Comment on above:Performed By: #### GTT3P #### [facility] [address] [place] [address] Kaela KarenMCHC (RBC) [Mass/Vol]35.1 g/fURknnxz38.9-35.2[facility] Comment on above:Performed By: #### GTT3P #### [facility] [address] [place] [address] Kaela KarenMCV (RBC) [Entitic vol]87.3 tKTyykjb52.0-99.0[facility] Comment on above:Performed By: #### GTT3P #### [facility] [address] [place] [address] Kaela KarenMONO #1.2 103/ulCritically high0.3-0.8The [facility] on above:Performed By: #### GTT3P #### [facility] [address] [place] [address] Kaela KarenMonocytes/100 WBC (Bld)6.6 %Normal1.7-12.0[facility] Comment on above:Performed By: #### GTT3P #### [facility] [address] [place] [address] Kaela KarenNEUT #14.4 103/ulCritically high1.4-6.5The [facility] HospitalComment on above:Performed By: #### GTT3P #### [facility] [address] [place] [address] Kaela Alamoutrophils/100 WBC (Bld)82.8 %Critically high43.0-75.0The [facility] SystemComment on above:Performed By: #### GTT3P #### [facility] [address] [place] [address] Kaela DimasPlatelet mean volume (Bld) [Entitic vol]12.1 fLNormal9.5-13.5The [facility] HospitalComment on above:Performed By: #### GTT3P #### [facility] [address] [place] [address] Kaela SahuIefgeBVB721 103/ayNcufrx616-392Rcs [facility] SystemComment on above: Performed By: #### GTT3P #### [facility] [address] [place] [address] Kaela KarenRBC3.95 106/ulCritically low4.20-5.40The [facility] SystemComment on above:Performed By: #### GTT3P #### [facility] [address] [place] [address] Kaela SahuenWBC17.4 103/ulCritically high4.0-11.0The [facility] SystemComment on above:Performed By: #### GTT3P #### [facility] [address] [place] [address] Kaela KarenCULTURE URINEon [id number] URINECulture Observations: LIGHT GROWTH OF MIXED GENITAL TINO. NO POTENTIAL PATHOGENS SEEN.NormalThe [facility] HospitalComment on above:Performed By: #### PTT #### [facility] [address] [place] [address] Kaela SahuenLDHon [id number] U/QVviken113-278Qsc [facility] SystemComment on above:Performed By: #### URIC, LDH #### [facility] [address] [place] [address] Kaela KarenPROF 14(COMP METB)on 05-30-8664Kglwwpx [Mass/Vol]2.7 g/dLCritically low3.5-5.0[facility] HospitalComment on above:Performed By: #### GTT3P #### [facility] [address] [place], [place] [id number] Kaela KarenAlbumin/Globulin [Mass ratio]0.9 {ratio}NormalKeenan Private Hospital Comment on above:Performed By: #### GTT3P #### [facility] [address] [address] Kaela KarenALP [Catalytic activity/Vol]134 U/LCritically myys84-743Zrj [facility] SystemComment on above:Performed By: #### GTT3P #### [facility] [address] [place] [address] Kaela KarenALT [Catalytic activity/Vol]21 U/LNormal9-52[facility] Comment on above:Performed By: #### GTT3P #### [facility] [address] [place] [address] Kaela KarenAnion gap [Moles/Vol]11.6 mmol/LNormalThe [facility] SystemComment on above:Performed By: #### GTT3P #### [facility] [address] [place] [address] Kaela KarenAST [Catalytic activity/Vol]17 U/IFqakhx15-13Qgr [facility] Comment on above:Performed By: #### GTT3P #### [facility] [address] [place] [address] Kaela KarenBilirubin [Mass/Vol]0.2 mg/dLNormal0.2-1.3TOhioHealth [facility] Comment on above:Performed By: #### GTT3P #### [facility] [address] [place] [address] Kaela KarenCalcium [Mass/Vol]9.1 mg/dLNormal8.4-10.2[facility] Comment on above:Performed By: #### GTT3P #### [facility] [address] [place] [address] Kaela KarenChloride [Moles/Vol]106 mmol/GJpmfqc91-280Owy [facility] Comment on above:Performed By: #### GTT3P #### [facility] [address] [address] Kaela KarenCO2 [Moles/Vol]25.8 mmol/MPmtxfo47.0-30.0The [facility] Comment on above:Performed By: #### GTT3P #### [facility] [address] [address] Kaela KarenCreatinine [Mass/Vol]0.53 mg/dLNormal0.52-1.04[facility] Comment on above:Performed By: #### GTT3P #### [facility] [address] [place] [address] Kaela KarenEGFR-AF SERBIAN>60Normal>=60The [facility] SystemComment on above: Performed By: #### GTT3P #### [facility] [address] [place] [address] Kaela KarenEGFR-NON AF SERBIAN>60Normal>=60The [facility] SystemComment on above:Performed By: #### GTT3P #### [facility] [address] [address] Kaela KarenGlobulin (S) [Mass/Vol]3.0 g/dLNormalThe [facility] SystemComment on above:Performed By: #### GTT3P #### [facility] [address] [place] [address] Kaela KarenGlucose [Mass/Vol]85 mg/dWDcgmgd21-143Gpq [facility] SystemComment on above:Performed By: #### GTT3P #### [facility] [address] [place] [address] Kaela KarenPotassium [Moles/Vol]3.4 mmol/LNormal3.4-5.0[facility] Comment on above:Performed By: #### GTT3P #### [facility] [address] [address] Kaela KarenProtein [Mass/Vol]5.7 g/dLCritically low6.1-8.2[facility] Comment on above:Performed By: #### GTT3P #### [facility] [address] [place] [address] Kaela KarenSodium [Moles/Vol]140 mmol/JPgqqsh411-374Gni [facility] Comment on above:Performed By: #### GTT3P #### [facility] [address] [place] [address] Kaela KarenUrea nitrogen [Mass/Vol]10.0 mg/dLNormal7.0-17.0The [facility] SystemComment on above:Performed By: #### GTT3P #### [facility] [address] [place] [address] Kaela KarenUrea nitrogen/Creatinine [Mass ratio]18.9 mg/mgNormalThe [facility] SystemComment on above:Performed By: #### GTT3P #### [facility] [address] [place] [address] Kaela KarenPTTon [id number] Coag (Bld) [Time]23.6 aRubydd70.3-36.2The [facility] SystemComment on above:Performed By: #### PTT #### [facility] [address] [place] [address] Kaela KarenURIC ACID SERUMon 26-02-5588Lqzwg [Mass/Vol]3.7 mg/dLNormal2.5-6.2 The [facility] SystemComment on above:Performed By: #### URIC, LDH #### [facility] [address] [place] [address] Kaela KarenUA (CLEAN/CATCH) METAL FINISHER/MICRO IF IND.on [id number] Ql (U) NegativeNormalNEGATIVEThe [facility] SystemComment on above:Performed By: #### FRANCINE SERVINCSIND #### [facility] [address] [place] [address] Kaela KarenClarity (U)CLEARNormalCLEARThe [facility] SystemComment on above: Performed By: #### MALATHI UACSIND #### [facility] [address] [place] [address] Kaela KarenColor (U)LT. YELLOWNormalYELLOWHighland District Hospital HospitalComment on above:Performed By: #### LISA SERVININD #### [facility] [address] [place] [address] Kaela KarenGlucose Ql (U)NegativeNormalNEGATIVEHighland District Hospital HospitalComment on above:Performed By: #### FRANCINE SERVINCSIND #### [facility] [address] [place] [address] Kaela KarenHemoglobin Ql (U)NegativeNormalNEGATIVEHighland District Hospital HospitalComment on above:Performed By: #### LISA SERVININD #### [facility] [address] [place] [address] Kaela KarenKetones Ql (U)NegativeNormalNEGATIVEHighland District Hospital HospitalComment on above:Performed By: #### LISA SERVININD #### [facility] [address] [place] [address] Kaela KarenLEUKOCYTESTRACEAbnormalNEGATIVEHighland District Hospital HospitalComment on above:Performed By: #### LISA SERVININD #### [facility] [address] [place] [address] Kaela KarenNitrite Ql (U)NegativeNormalNEGATIVEHighland District Hospital HospitalComment on above:Performed By: #### FRANCINE SERVINCSIND #### [facility] [address] [place] [address] Kaela KarenpH (U)6.0 [pH]Normal5-9[facility] HospitalComment on above: Performed By: #### FRANCINE SERVINCSIND #### [facility] [address] [place] [address] Kaela KarenSPEC GRAVITY1.895Fhmwtg6.005-<=1.025The [facility] HospitalComment on above:Performed By: #### LISA SERVININD #### [facility] [address] [place] [address] Kaela KarenUA PROTEINNegativeNormalNEGATIVE/ TRACEThe Staplehurst HospitalComment on above:Performed By: #### FRANCINE SERVINCSIND #### [facility] [address] [place] [address] Kaela KarenUR MICRO INDINDICATEDAdena Pike Medical CenterComment on above: Performed By: #### RADHA SERVIN #### [facility] [address] [place] [address] Kaela KarenUrobilinogen Qn (U)0.2 {Sylvester'U}/dLNormal0.2 - 1.0The [facility] SystemComment on above:Performed By: #### MALATHI UACSIND #### [facility] [address] [place] [address] Kaela KarenURINE MICROSCOPIC ONLYon 18-50-5032URTIYYCVWBZDCQaxwjdbjMXPT SEENThe [facility] SystemComment on above:Performed By: #### LISA SERVININD #### [facility] [address] [place] [address] Kaela KarenBacteria identified Cx Nom (U)INDICATEDNoFlower Hospital Comment on above:Performed By: #### MALATHI UAFAYIND #### [facility] [address] [place] [address] Kaela KarenCASTNONE SEENNormalNONE SEENKeenan Private HospitalComment on above: Performed By: #### MALATHI UACSIND #### [facility] [address] [place] [address] Kaela KarenCrystals LM Nom (Urine sed)NONE SEENNormalNONE SEENKeenan Private HospitalComment on above:Performed By: #### MALATHI UACSIND #### [facility] [address] [place] [address] Kaela KarenEpithelial cells LM Ql (Urine sed)FEWAbnormalNONE SEEN /RAREThe [facility] SystemComment on above:Performed By: #### MALATHI UACSIND #### [facility] [address] [place] [address] Kaela KarenMUCOUSSMALLAbnormalNONE SEENKeenan Private HospitalComment on above: Performed By: #### MALATHI UACSIND #### [facility] [address] [place] [address] Kaela DimasZwpfdOIL6-9Wpbbco0-8Tvh [facility] SystemComment on above:Performed By: #### MALATHI UACSIND #### [facility] [address] [place] [address] Kaela DimasWBC2-5AbnormalNONE SEENThe [facility] SystemComment on above: Performed By: #### MALATHI UACSIND #### [facility] [address] [place] [address] Kaela DimasUS PREG BIOPHY W NON STRESSon [id number] PREG BIOPHY W NON STRESS EXAMINATION: US [...] profile score: 8.0 Electronically authenticated by: IRINEO CUENCA Date: 2021-01-09 07:18NormCl[facility] PREG GROWTHon [id number] PREG GROWTHEXAMINATION: US PREG GROWTH HISTORY: Pre-existing [...] cm; 32 weeks 2 days; % EFW: 4.282620, 39% FL/AC: 0.560771 FL/BPD: 0.386566 HC/AC: 1.230741 GESTATIONAL AGE: Age by EDC: 32 weeks 1 day SUSANNA by EDC: 02/24/2021 Age by US: 32 weeks 0 days SUSANNA by US: 02/25/2021 IMPRESSION: Normal interval growth Electronically authenticated by: IRINEO CUENCA Date: 2020-12-31 09:38NoFlower HospitalGTT 3 HR PREGon 31-62-5808Aufbthf [Mass/Vol]86 mg/dLNormal 74-106Keenan Private HospitalComment on above:Performed By: #### GTT3P #### [facility] [address] [place] [address] Kaela KarenGlucose [Mass/Vol]179 mg/dLAdena Pike Medical CenterComment on above:Performed By: #### GTT3P #### [facility] [address] [place] [address] Kaela KarenGlucose [Mass/Vol]131 mg/dLAdena Pike Medical CenterComment on above:Performed By: #### GTT3P #### [facility] [address] [place] [address] Kaela KarenGlucose [Mass/Vol]145 mg/dLAdena Pike Medical CenterComment on above:Performed By: #### GTT3P #### [facility] [address] [place] [address] Kaela KarenGLUCOSE - 1HRon 69-55-6397Avywyfi [Mass/Vol]151 mg/dLCritically high 74-106Keenan Private HospitalComment on above:Result Comment: patient was approximately 5 minutes late for drawPerformed By: #### GLU1HR #### [facility] [address] [place] [address] Kaela KarenHEMOGRAM AND PLATELon 89-74-1065Wsaewxugek (Bld) [Volume fraction] 38.4 %Jaqfev18.0-48.0Keen[facility] Private HospitalComment on above:Performed By: #### GTT3P #### [facility] [address] [address] Kaela KarenHemoglobin (Bld) [Mass/Vol]13.2 g/gXRqfwek32.0-16.0The [facility] SystemComment on above:Performed By: #### GTT3P #### [facility] [address] [place] [address] Kaela KarchristalH (RBC) [Entitic mass]30.8 uxXaebxq10.7-34.0The [facility] Comment on above:Performed By: #### GTT3P #### [facility] [address] [place] [address] Kaela KarenMCHC (RBC) [Mass/Vol]34.4 g/fSNplywu12.9-35.2The [facility] Comment on above:Performed By: #### GTT3P #### [facility] [address] [place] [address] Kaela DimasMCV (RBC) [Entitic vol]89.5 cHOjpydx26.0-99.0The [facility] Comment on above:Performed By: #### GTT3P #### [facility] [address] [place] [address] Kaela MgfobHCE032 103/yfSumpce209-324Gts [facility] SystemComment on above: Performed By: #### GTT3P #### [facility] [address] [place] [address] Kaela KarenRBC4.29 106/ulNormal4.20-5.40The [facility] SystemComment on above: Performed By: #### GTT3P #### [facility] [address] [place] [address] Kaela AdcpgRXX75.0 103/ulCritically high4.0-11.0The [facility] SystemComment on above:Performed By: #### GTT3P #### [facility] [address] [place] [address] Kaela DimasUS PREG GROWTHon [id number] PREG GROWTHEXAMINATION: US PREG GROWTH HISTORY: Pre-existing [...] cm; 28 weeks 0 days; % EFW: 2.176470, 2 lbs. 10 oz., 40% FL/AC: 0.890384 FL/BPD: 0.302177 HC/AC: 1.026711 GESTATIONAL AGE: Age by EDC: 28 weeks 1 day SUSANNA by EDC: 02/24/2021 Age by US: 20 weeks 2 days SUSANNA by US: 02/23/2021 IMPRESSION: Normal interval growth Electronically authenticated by: IRINEO CUENCA Date: 2020-12-03 10:04[facility] Vital Signs Date TimeVital SignValuePerforming DuvrojzgdRmzzovcc27-95-9673 16:51-0500 Diastolic blood qjypdjjv18 mm[Hg]Waicai DO Work Phone: 1(032)463-[address] [place], [place] 1316611-03-2025 16:51-0500 Systolic blood gxeyogvk232 mm[Hg][employer] Work Phone: 1(178)076-[address] [place], [place] 1316611-03-2025 15:52-0500 Body dtyafq739.56 cmInnovent [employer] Work Phone: 1(915)222-[address] [place], [place] 1316611-03-2025 15:52-0500 Body mass index (BMI) [Ratio]38 kg/x6JdceomjInnovent Biologics Work Phone: 1(721)470-[facility]11-03-2025 15:52-0500 Body xsohoqcsqsx17.9 [degF][employer] Work Phone: 1(198)965-[facility]11-03-2025 15:52-0500 Body zmqjai762.69 kgKarenitlyn Ezequiel DO Work Phone: [address] [place], [place] 5674211-03-2025 15:52-0500 Heart fpjn012 /minKaitlyn Ezequiel DO Work Phone: [address] [place], [place] 5674211-03-2025 15:52-0500 Respiratory rate18 /minKaitlyn Ezequiel DO Work Phone: [address] [place], [place] 5674211-03-2025 15:52-0500 SaO2% (BldA) [Mass fraction]98 %Fely Ezequiel DO Work Phone: [address] [place], [place] 5674210-31-2025 11:30-0400 Body urhqgs072.56 cmKarenitlyn Ezequiel DO Work Phone: [address] [place], [place] 5674210-31-2025 11:30-0400 Body mass index (BMI) [Ratio]37.3 kg/u1Btyjohi Ezequiel DO Work Phone: [address] [place], [place] 5674210-31-2025 11:30-0400 Body kwiiipnfqwr97.2 [degF]Fely Ezequiel DO Work Phone: [address] [place], [place] 5674210-31-2025 11:30-0400 Body cdblro29.68 kgKaitlyn Ezequiel DO Work Phone: [address] [place], [place] 5674210-31-2025 11:30-0400 Diastolic blood tdzuzubp18 mm[Hg]Fely Ezequiel DO Work Phone: [address] [place], [place] 5674210-31-2025 11:30-0400 Heart rate92 /minKaitlyn Ezequiel DO Work Phone: [address] [place], [place] 5674210-31-2025 11:30-0400 Respiratory rate16 /minKaitlyn Ezequiel DO Work Phone: [address] [place], [place] 5674210-31-2025 11:30-0400 SaO2% (BldA) [Mass fraction]96 %Fely Ezequiel DO Work Phone: [address] [place], [place] 5674210-31-2025 11:30-0400 Systolic blood iqxajynd203 mm[Hg]Fely Ezequiel DO Work Phone: [address]19[address] [place], [place] 5674210-17-2025 10:18-0400 Diastolic blood ughkzxfe97 mm[Hg]Fely Ezequiel DO Work Phone: 1419)[address] [place], [place] 5674210-17-2025 10:18-0400 Systolic blood uuakuylf108 mm[Hg]Fely Ezequiel DO Work Phone: 1419)[address] [place], [place] 5674210-17-2025 09:31-0400 Body .02 cmKarenitlyn Ezequiel DO Work Phone: 1419)[address] [place], [place] 5674210-17-2025 09:31-0400 Body mass index (BMI) [Ratio]38.4 kg/e1Rdsepof Ezequiel DO Work Phone: [address] [place], [place] 5674210-17-2025 09:31-0400 Body jwytfnncgeh14.9 [degF]Fely Ezequiel DO Work Phone: [address] [place], [place] 5674210-17-2025 09:31-0400 Body .42 kgKarenitlyn Ezequiel DO Work Phone: [address] [place], [place] 5674210-17-2025 09:31-0400 Heart rate84 /minKaitlyn Ezequiel DO Work Phone: [address] [place], [place] 5674210-17-2025 09:31-0400 Respiratory rate18 /minKaitlyn Ezequiel DO Work Phone: [address] [place], [place] 5674210-17-2025 09:31-0400 SaO2% (BldA) [Mass fraction]97 %Fely Ezequiel DO Work Phone: [address] [place], [place] 5674203-25-2025 14:41-0400 Body mass index (BMI) [Ratio]36.51 kg/n2Corzr Jacquie DO Work Phone: [facility] CenterJlujprslnr33-61-7674 14:41-0400Body kuqnwc13.5 kg Zhen Jacquie DO Work Phone: [facility] CenterVfhqlssjwu12-40-2269 14:41-0400Diastolic blood cuwxwziz10 mm[Hg]Zhen Jacquie DO Work Phone: 1(901)215-[facility] CenterAjtgfrweig63-94-5064 14:41-0400Systolic blood ovqejthn794 mm[Hg]Zhen Jacquie DO Work Phone: 1(867)656-[address] [place], [place] [address]Rtmqxdbqal92-03-2211 15:37-0500Body mass index (BMI) [Ratio]36.46 kg/m2Amy Nirmala PA Work Phone: [facility] CenterVadetvhqsa09-71-9382 15:37-0500Body .35 kgAmy Zachary PA Work Phone: 1(213)281-[address] [place], [place] [address]Nbbvvwxypt31-07-9614 15:37-0500Diastolic blood wfdwqsgo27 mm[Hg]Madisyn Nirmala PA Work Phone: [facility] CenterLsknqfwbml05-47-7358 15:37-0500Systolic blood mm[Hg]Madisyn Zachary PA Work Phone: [facility] CenterPnbizyowit43-69-6469 10:31-0500Body .9 Lila Dickey MD Work Phone: [facility]02-07-2025 10:31-0500Body mass index (BMI) [Ratio]39.59 kg/a5GqyqhGerardo Dickey MD Work Phone: [facility]02-07-2025 10:31-0500Body .51 kgGerardo Dickey MD Work Phone: [facility]02-07-2025 10:31-0500Diastolic blood zwklgiuc26 mm[Hg]Gerardo Dickey MD Work Phone: [facility]02-07-2025 10:31-0500Heart rate 102 /minGerardo Dickey MD Work Phone: [facility]02-07-2025 10:31-3245AsH4% (BldA) [Mass fraction]97 %Gerardo Dickey MD Work Phone: [facility]02-07-2025 10:31-0500Systolic blood pcglytvm497 mm[Hg]Gerardo Dickey MD Work Phone: [facility]02-04-2025 11:13-0500Body kcqozo952.9 Steff Cesar MD Work Phone: [facility]02-04-2025 11:13-0500Body mass index (BMI) [Ratio]39.84 kg/v8XndfzqsmSanam Cesar MD Work Phone: [facility]02-04-2025 11:13-0500Body .15 kgSanam Cesar MD Work Phone: [facility]02-04-2025 11:13-0500Diastolic blood dwgimjyw76 mm[Hg]Sanam Cesar MD Work Phone: [facility]02-04-2025 11:13-0500Heart rate 102 /minSanam Cesar MD Work Phone: [facility]02-04-2025 11:13-4725QbC8% (BldA) [Mass fraction]99 %Sanam Cesar MD Work Phone: [facility]02-04-2025 11:13-0500Systolic blood leixgblh128 mm[Hg]Sanam Cesar MD Work Phone: [facility]01-28-2025 14:37-0500Body mass index (BMI) [Ratio]41.42 kg/z4Dfdtb Jacquie DO Work Phone: [facility] CenterFfupoejqfs11-21-5588 14:37-0500Body iimuon562.05 kgCorey Jacquie DO Work Phone: 1(250)776-[address] [place], [place] [address]Rwfydbqwkq90-18-6652 14:37-0500Diastolic blood irsvwybw47 mm[Hg]Zhen Jacquie DO Work Phone: 1(828)[facility] [place], [place] [address]Ahdntwpomi30-32-6430 14:37-0500Systolic blood tshiehvi107 mm[Hg]Zhen Jacquie DO Work Phone: 1(842)[facility] [place], [place] [address]Uviqrcyryx30-95-5047 15:09-0500Body mass index (BMI) [Ratio]41.45 kg/x6Zykyo Jacquie DO Work Phone: 1(446)[facility] [place], [place] [address]Micallkrjs56-40-3022 15:09-0500Body gzcpre336.14 kgCorey Jacquie DO Work Phone: 1(526)[facility] [place], [place] [address]Ndkvmqjtbz38-93-5522 15:09-0500Diastolic blood jgvvirjl13 mm[Hg]Zhen Jacquie DO Work Phone: 1(372)[facility] [place], [place] [address]Wnipcohpui36-99-8149 15:09-0500Systolic blood ayoalzga467 mm[Hg]Zhen Jacquie DO Work Phone: 1(820)[facility] [place], [place] [address]Qbdcxoxdxl48-03-6593 16:26-0500Body mass index (BMI) [Ratio]41.65 kg/e3Nbkpt Jacquie DO Work Phone: 1(383)[facility] [place], [place] [address]Irepljnstu17-39-1340 16:26-0500Body xiwptt060.65 kgCorey Jacquie DO Work Phone: 1(869)[facility] [place], [place] [address]Hlwpkaxvpw75-31-7072 16:26-0500Diastolic blood mm[Hg]Zhen Jacquie DO Work Phone: 1(477)[facility] [place], [place] [address]Zrxaiezcop55-83-7769 16:26-0500Systolic blood mm[Hg]Zhen Jacquie DO Work Phone: 1(091)[address] [place], [place] 5825412-30-2024 15:22-0500Body mass index (BMI) [Ratio]41.81 kg/m2Madisyn KERNS Work Phone: 1(640)220-[address] [place], [place] [address]Vosshhryez87-88-7422 15:22-0500Body kxmeej098.05 kgMdaisyn Nirmala KERNS Work Phone: 1(883)288-[address] [place], [place] [address]Gmlmmmpawf73-49-7834 15:22-0500Diastolic blood eehympid44 mm[Hg]Madisyn KERNS Work Phone: 1(545)542-[address] [place], [place] [address]Tkawqhzgvv88-35-0598 15:22-0500Systolic blood axmvbdvf812 mm[Hg]Madisyn KERNS Work Phone: 1(555)[facility] [place], [place] [address]Xllblsdonv46-53-1777 16:19-0500Body mass index (BMI) [Ratio]41.81 kg/e6Xoyuz Jacquie DO Work Phone: 1(652)[facility] [place], [place] [address]Wwypyookee91-91-6034 16:19-0500Body hfegke049.05 kgCorey Jacquie DO Work Phone: 1(056)[facility] [place], [place] [address]Zndnthendk44-05-6558 16:19-0500Diastolic blood mm[Hg]Zhen Jacquie DO Work Phone: 1(689)[facility] [place], [place] [address]Efajzbeahq16-76-5279 16:19-0500Systolic blood mm[Hg]Zhen Jacquie DO Work Phone: 1(891)[facility] [place], [place] [address]Qfskupwbon28-79-5391 11:13-0500Body qzahxe499 cm Gregg Fox MD Work Phone: 1(138)[address] [place], [place] 1821112-13-2024 11:13-0500Body mass index (BMI) [Ratio]40.74 kg/s6EvtublGregg Fox MD Work Phone: 1(909)[address] [place], [place] 1821112-13-2024 11:13-0500Body .33 kgGregg Fox MD Work Phone: 1(280)[address] [place], [place] 1821112-13-2024 11:13-0500Diastolic blood mm[Hg]Gregg Fox MD Work Phone: 1(262)[address] [place], [place] 1821112-13-2024 11:13-0500Heart rate 104 /minGregg Fox MD Work Phone: 1(542)[address] [place], [place] 1821112-13-2024 11:13-0500Systolic blood mm[Hg]Gregg Fox MD Work Phone: 1(989)471-[address] [place], [place] 7853511-14-2024 15:34-0500Body mass index (BMI) [Ratio]40.6 kg/m2Amy Nirmala KERNS Work Phone: [facility] CenterLpebdptlwq18-96-0042 15:34-0500Body .96 kgMadisyn KERNS Work Phone: 1(683)574-[address] [place], [place] [address]Ppmwoprmqu26-63-7005 15:34-0500Diastolic blood ljwoysai75 mm[Hg]Madisyn KERNS Work Phone: 1(579)671-[address] [place], [place] [address]Duxkbzmbjs26-36-0744 15:34-0500Systolic blood cvorubxu874 mm[Hg]Madisyn KERNS Work Phone: 1(601)949-[address] [place], [place] [address]Vctonggmga44-58-6600 12:07-0400Body mass index (BMI) [Ratio]39.5 kg/h4Fottj Jacquie DO Work Phone: 1(621)058-[address] [place], [place] [address]Ecqmqkmebg27-59-2430 12:07-0400Body usyzby884.15 kgCorey Jacquie DO Work Phone: 1(802)974-[address] [place], [place] [address]Hqzwmrcnvd19-40-2278 12:07-0400Diastolic blood jujdsqbz33 mm[Hg]Zhen Jacquie DO Work Phone: 1(921)155-[address] [place], [place] [address]Kvxkrbfayz60-82-8498 12:07-0400Systolic blood mm[Hg]Zhen Jacquie DO Work Phone: 1(980)010-[address] [place], [place] [address]Soflbpjwyt90-36-9533 08:46-0400Body mass index (BMI) [Ratio]39.41 kg/m2Amy Nirmala KERNS Work Phone: 1(443)[address]09-19-2024 08:46-0400Body pnvrik537.92 kgMadisyn KERNS Work Phone: 1(587)282-[address] [place], [place] [address]Mmmzxazxuf64-62-8602 08:46-0400Diastolic blood aepcexcx34 mm[Hg]Madisyn KERNS Work Phone: [facility] CenterYldzpckhvb52-52-0039 08:46-0400Systolic blood tgzutzai082 mm[Hg]Madisyn Silvestre PA Work Phone: [facility] CenterQfwpiofgkr44-52-0341 11:34-0400Body mass index (BMI) [Ratio]39.5 kg/z4Qgysv Jacquie DO Work Phone: [facility] CenterEikeqqsuxz88-78-4505 11:34-0400Body mqbyix286.15 kgCorey Jacquie DO Work Phone: 1(403)049-[facility] CenterGlbqtwuyrt69-25-3897 11:34-0400Diastolic blood danhzqlw45 mm[Hg]Zhen Jacquie DO Work Phone: [facility] CenterLaarsmmwxi35-25-4997 11:34-0400Systolic blood yxvrpboe052 mm[Hg]Zhen Jacquie DO Work Phone: [facility] CenterGceyhpcudh01-31-6384 18:14-0400Diastolic blood xosrnwov43 mm[Hg]MD Jacques Del Rosario Work Phone: 1(969)019-[address] [place], [place] 8564007-01-2024 18:14-0400 Heart mvrt837 /minMD Jacques Del Rosario Work Phone: 1(120)595-[address] [place], [place] 8564007-01-2024 18:14-0400 Respiratory rate18 /min Jacques Hoy Work Phone: 1(674)[facility] [place], [place] 8564007-01-2024 18:14-0400 SaO2% (BldA) [Mass fraction]100 %MD Jacques Del Rosario Work Phone: 1(763)452-[address] [place], [place] 8564007-01-2024 18:14-0400 Systolic blood djzjqeuw645 mm[Hg]MD Jacques Del Rosario Work Phone: 1(903)882-[address] [place], [place] 8564007-01-2024 14:04-0400 Body ietlfv058.02 cmMD Jacques Del Rosario Work Phone: 1(022)867-[address] [place], [place] 8564007-01-2024 14:04-0400 Body peqaebvugor37.4 [degF]MD Jacques Del Rosario Work Phone: 1(541)[address]07-01-2024 14:04-0400 Body .5 kgMD Jacques Del Rosario Work Phone: [facility] Encounters Encounter DateEncounter TypeCare ProviderFacilsuburban community hospital & [facility] hospitalStart: 06-04-2025 End: 66-12-8370mznzujmcscMtoeebb Ezequiel DO Work Phone: -[facility] CenterkStart: 06-04-2025 End: 31-46-8224Zkrripb encounter procedureFely Cadenao DO-[facility] Work Phone: Start: 06-01-2025 End: 44-92-7472apaxloquckMnzdwsg Ezequiel DO Work Phone: [phone]-Zigzoflnw Health RheumatologyStart: 06-01-2025 End: 82-28-1178Dcervtz encounter procedureWolfgang Clark MD-[facility] Work Phone: Start: 05-18-2025 End: 09-00-6771xuznaeqwmwQsddowb Ezequiel DO Work Phone: [facility] Centertart: 05-18-2025 End: 75-92-6382Obycjdl encounter procedureFely Cadenao DO-[facility] Work Phone: Start: 04-26-2025 End: 07-10-7482Yieqwyswa encounterSusan NicholsProMedica Physicians Cardiology Start: 10-24-2024 End: 22-64-8031gecchszchcNUFXR FAZIONot AvailableStart: 10-24-2024 End: 45-15-3177Pliuicmvgm care visitCorey Jacquie DO Work Phone: NOWV BCP OBComment on above:6 weeks follow-up; S/P section; Gestational diabetes mellitus (GDM), delivered, current hospitalizationStart: 09-26-2024 End: 10-98-1402hedwdfjgjuYNI RAMEYNot AvailableStart: 09-26-2024 End: 55-36-7853Dsvady follow up visit related to original Gem KERNS Work Phone: [facility] BCP OBComment on above:Encounter for visit; S/P sectionStart: 09-26-2024 End: 28-30-9622Obqywo Daniela KERNS Work Phone: noms BCP OBStart: 09-26-2024 End: 50-64-6140Ahadpk Daniela KERNS Work Phone: [facility] BCP OBStart: 09-16-2024 End: 97-54-3421Ofssafvwrj and management of inpatientWright-Patterson Medical Center HospitalStart: 09-14-2024 End: 12-02-7585Qvfoadppjx and management of inpatientDAVID A BIRMINGHAMProWright-Patterson Medical Center HospitalStart: 45-66-7078vbcghgowdpMLKKMVJAvera Sacred [facility] Hospital Ambulatory PPGStart: 09-08-2024 End: 99-70-5013Njrwxwcit Result EncounterCorey Jacquie DO Work Phone: noms External Department UnsolicitedStart: 09-08-2024 End: 81-37-8603Vtfzwwuvd Result EncounterCorey Jacquie DO Work Phone: [facility] External Department UnsolicitedStart: 09-08-2024 End: 66-56-6902Ejmpgdoii encounterTerra Lundberg MD Work Phone: [phone]-Glszn [facility] at [facility] Start: 09-08-2024 End: 47-13-9639Iwrtki consultation new/estab patient 62 Ana Dickey MD Work Phone: [facility] CardiologyComment on above: Pulmonary hypertension (CMS-HCC) (Primary Dx); 35 weeks gestation of ; Chronic hypertension affecting ; TachycardiaStart: 09-08-2024 End: 73-91-1070wiookoiojmWPNJDAren DICKEYProMedica Ashburnham HospitalStart: 09-07-2024 End: 18-72-5918Eksxi abstractingScanning Provider ExternalProMedica Physicians CardiologyStart: 09-05-2024 End: 91-09-2829Frisbqxbx Scott Lundberg MD Work Phone: [phone]-Kacev Medicine at [facility] Start: 09-05-2024 End: 09-68-0742qkzgegbawsZXMNCYBP K F WHITFIELDProParkview Health Bryan Hospitalca OhioHealthtart: 09-05-2024 End: 90-93-5000Lzitjt consultation new/estab patient 80 minClaudoscar Cesar MD Work Phone: [facility] Pediatric CardiologyComment on above: arrhythmia affecting , antepartum (Primary Dx); Abnormal ultrasonic finding on screening of mother, antepartum; Anomaly of heart of fetus affecting , antepartum, single or unspecified fetusStart: 08-30-2024 End: 72-85-1615Wzxturadr Result EncounterCorey Jacquie DO Work Phone: noms External Department UnsolicitedStart: 08-30-2024 End: 27-45-4787Wiuskeomh Result EncounterCorey Jacquie DO Work Phone: [facility] External Department UnsolicitedStart: 08-29-2024 End: 14-60-4324Taeleljc flow sheetCorey Jacquie DO Work Phone: [facility] BCP OBComment on above:34 weeks gestation of ; Third trimester pregnancyStart: 08-29-2024 End: 08-09-0424exuspmcxitCVQPY FAZIONot AvailableStart: 08-29-2024 End: 18-38-1642Zwlrbs flowsheetCorey Jacquie DO Work Phone: [facility] BCP OBStart: 08-29-2024 End: 86-28-8823Povcnc flowsheetCorey Jacquie DO Work Phone: [facility] BCP OBStart: 08-28-2024 End: 28-53-6164Opnfektrc Result EncounterCorey Jacquie DO Work Phone: [facility] External Department UnsolicitedStart: 08-28-2024 End: 97-37-4163Szoobtqhv Result EncounterCorey Jacquie DO Work Phone: [facility] External Department UnsolicitedStart: 08-25-2024 End: 65-74-9199Ovpqrlvig Result EncounterCorey Jacquie DO Work Phone: [facility] External Department UnsolicitedStart: 08-25-2024 End: 66-32-2355Fukqiqync Result EncounterCorey Jacquie DO Work Phone: [facility] External Department UnsolicitedStart: 08-22-2024 End: 58-43-0815wqlwspjszkIUWPK FAZIONot AvailableStart: 08-22-2024 End: 22-66-7183Ufderjhl flow sheetCorey Jacquie DO Work Phone: [facility] BCP OBComment on above:Third trimester ; 34 weeks gestation of ; Insulin controlled gestational diabetes mellitus (GDM) during , antepartumStart: 08-22-2024 End: 01-52-4381Aarypk flowsheetCorey Jacquie DO Work Phone: [facility] BCP OBStart: 08-22-2024 End: 09-11-8627Sggcpg flowsheetCorey Jacquie DO Work Phone: [facility] BCP OBStart: 08-18-2024 End: 18-99-2219Hdzvmluwu Result EncounterCorey Jacquie DO Work Phone: [facility] External Department UnsolicitedStart: 08-18-2024 End: 39-51-3846Kndljrlgi Result EncounterCorey Jacquie DO Work Phone: noms External Department UnsolicitedStart: 08-17-2024 End: 37-31-6646Kmthqdmok Result EncounterCorey Jacquie DO Work Phone: noms External Department UnsolicitedStart: 08-17-2024 End: 13-73-2385Fxfmeuhiy Result EncounterCorey Jacquie DO Work Phone: noms External Department UnsolicitedStart: 08-16-2024 End: 42-41-1776Tfcfnbvbsoakg procedureKaren Jinny RDMSMaternal- Medicine at [facility] Hospitaltart: 08-15-2024 End: 78-73-7527Hncglc outpatient visit 25 minutesTerra Lundberg MD Work Phone: [phone]-Hbpfh Medicine at [facility] Comment on above:32 weeks gestation of (Primary Dx); Gestational diabetes mellitus (GDM) in third trimester, gestational diabetes method of control unspecified; Chronic hypertension affecting ; BMI 40.0-44.9, adult ([facility]); arrhythmia affecting , antepartum; Polyhydramnios affecting ; Separation of chorion and amnion membranes, antepartumStart: 08-15-2024 End: 68-08-0567Qrufnq Wan Stearns RDPAMaternal- Medicine at [facility]Comment on above:Abnormal ultrasonic finding on screening of mother, antepartum (Primary Dx)Start: 08-14-2024 End: 32-70-0572trpnxekiplVIMAV FAZIONot AvailableStart: 08-14-2024 End: 54-67-7924Hcicamsl flow sheetCorey Jacquie DO Work Phone: noms BCP OBComment on above:32 weeks gestation of ; Third trimester pregnancyStart: 08-14-2024 End: 91-49-2808Wxikyn flowsheetCorey Jacquie DO Work Phone: noms BCP OBStart: 08-14-2024 End: 45-65-6876Xkhpxt flowsheetCorey Ajcquie DO Work Phone: noms BCP OBStart: 08-14-2024 End: 39-63-8107Mxfblxrkv Result EncounterCorey Jacquie DO Work Phone: noms External Department UnsolicitedStart: 08-10-2024 End: 17-09-2026Jjjinrwsc Result EncounterCorey Jacquie DO Work Phone: noms External Department UnsolicitedStart: 08-10-2024 End: 61-56-1231Jfxoivgdj Result EncounterCorey Jacquie DO Work Phone: noms External Department UnsolicitedStart: 08-08-2024 End: 35-84-2114Eaxdfhxpp Result EncounterCorey Jacquie DO Work Phone: noms External Department UnsolicitedStart: 08-08-2024 End: 80-70-1511Ztdvlcpkb Result EncounterCorey Jacquie DO Work Phone: noms External Department UnsolicitedStart: 08-07-2024 End: 80-75-7975Sgiaafiqc Result EncounterCorey Jacquie DO Work Phone: noms External Department UnsolicitedStart: 08-07-2024 End: 40-12-0619Hergatypz Result EncounterCorey Jacquie DO Work Phone: noms External Department UnsolicitedStart: 08-05-2024 End: 65-04-4546Naagwjntf Result EncounterCorey Jacquie DO Work Phone: noms External Department UnsolicitedStart: 08-05-2024 End: 83-04-2985Nzuoajyek Result EncounterCorey Jacquie DO Work Phone: noms External Department UnsolicitedStart: 08-04-2024 End: 36-85-2598Qhpebhmfu Result EncounterCorey Jacquie DO Work Phone: noms External Department UnsolicitedStart: 08-04-2024 End: 53-59-6038Rtepoeexo Result EncounterCorey Jacquie DO Work Phone: noms External Department UnsolicitedStart: 07-31-2024 End: 85-56-7073Fhjmaudj flow Falguni KERNS Work Phone: NOMS BCP OBComment on above:Third trimester ; 30 weeks gestation of pregnancyStart: 07-31-2024 End: 37-55-2106vcmenttgkqCRL RAMEYNot AvailableStart: 07-31-2024 End: 11-05-1864Knbhcs Daniela KERNS Work Phone: NOMS BCP OBStart: 07-31-2024 End: 59-68-5519Kfvxca flowsheetMadisyn KERNS Work Phone: noms BCP OBStart: 07-17-2024 End: 98-91-9324tucdilxqqyDVUAQ FAMANUELONot AvailableStart: 07-17-2024 End: 85-16-9718Xwtcedgj flow sheetCorey Jacquie DO Work Phone: noms BCP OBComment on above:Third trimester ; 28 weeks gestation of ; Gestational diabetes mellitus (GDM) in third trimester, gestational diabetes method of control unspecified; Hypertension, unspecified type (CMS/HCC); Gestational diabetes mellitus (GDM), antepartum, gestational diabetes method of control unspecified; Elevated glucose tolerance testStart: 07-17-2024 End: 19-04-6747Imfeqsnnf Result EncounterCorey Jacquie DO Work Phone: noms External Department UnsolicitedStart: 07-17-2024 End: 22-95-1892Zxqpfxruz Result EncounterCorey Jacquie DO Work Phone: noms External Department UnsolicitedStart: 07-14-2024 End: 63-91-3855Yugfey consultation new/estab patient 62 Gracia Fox MD Work Phone: Maternal Medicine DonnellyComment on above: Gestational diabetes mellitus (GDM), antepartum, gestational diabetes method of control unspecified(Primary Dx); Chronic hypertension affecting pregnancyStart: 07-14-2024 End: 81-05-1577imexkoswarZYHDEJUpstate University Hospital Ambulatory PPGStart: 07-13-2024 End: 81-29-9409Uurgweyse Result EncounterMadisyn KERNS Work Phone: noms External Department UnsolicitedStart: 07-13-2024 End: 16-34-4217Bczlwqhtk Result EncounterMadisyn KERNS Work Phone: noms External Department UnsolicitedStart: 06-21-2024 End: 25-44-7898Jbsje Woodrow Fox MD Work Phone: [phone]-Akxkx Medicine at [facility] Start: 06-17-2024 End: 57-81-0344Ntdkebfcu Result EncounterCorey Jacquie DO Work Phone: noMS External Department UnsolicitedStart: 06-17-2024 End: 43-73-4847Cadenbajz Result EncounterCorey Jacquie DO Work Phone: noMS External Department UnsolicitedStart: 06-15-2024 End: 20-51-6441Nodlnauu flow sheetMadisyn KERNS Work Phone: NOMS BCP OBComment on above:Second trimester ; 24 weeks gestation of ; Diabetes mellitus screening; Elevated blood pressure affecting in first trimester, antepartum; High blood pressure affecting in first trimester, antepartum; Heartburn during in second trimesterStart: 06-15-2024 End: 99-96-0641avagduefzpZGI RAMEYNot AvailableStart: 06-15-2024 End: 02-10-3478Tdwbzl flowsKarla KERNS Work Phone: NOMS BCP OBStart: 06-15-2024 End: 56-40-7804Oxwulf flowsKarla KERNS Work Phone: NOMS BCP OBStart: 05-18-2024 End: 51-50-1640Eyhpoa flowsheetCorey Jacquie DO Work Phone: NOMS BCP OBStart: 05-18-2024 End: 47-54-5168Okuunt flowsheetCorey Jacquie DO Work Phone: NOMS BCP OBStart: 05-18-2024 End: 10-89-0519Kqzgwtjjn Result EncounterCorey Jacquie DO Work Phone: noMS External Department UnsolicitedStart: 05-18-2024 End: 62-52-9187zcytxorjvhWRSJC FAZIONot AvailableStart: 05-18-2024 End: 67-78-9764Adktawtc flow sheetCorey Jacquie DO Work Phone: NOMS BCP OBComment on above:20 weeks gestation of ; Second trimester pregnancyStart: 04-20-2024 End: 42-79-2753Ebubsy flowsKarla KERNS Work Phone: NOQB BCP OBStart: 04-20-2024 End: 08-33-3859Wcyihu flowsheetMadisyn KERNS Work Phone: noms BCP OBStart: 04-20-2024 End: 97-43-0879Gylsjc outpatient visit 15 minutesMadisyn KERNS Work Phone: noms BCP OBComment on above:Screening, , for anatomic survey; Well woman exam with routine gynecological exam; Screen for STD (sexually transmitted disease); Vaginal discharge; Second trimester pregnancyStart: 04-20-2024 End: 79-48-0617Fjniskf encounter procedureMadisyn KERNS Work Phone: NODB HealthcareStart: 04-20-2024 End: 22-50-0464hekxzpmsylZPW RAMEYNot AvailableStart: 03-22-2024 End: 21-02-4878Ooadfg flowsheetCorey Jacquie DO Work Phone: NOTH BCP OBStart: 03-22-2024 End: 43-89-6499Idswgv flowsheetCorey Jacquie DO Work Phone: NOOQ BCP OBStart: 03-22-2024 End: 32-22-7721Gewunbco flow sheetCorey Jacquie DO Work Phone: noms [facility] OBComment on above:Second trimester ; Abnormal CBCStart: 03-22-2024 End: 92-96-8991qxcntucdqtBWXNB FAZIONot AvailableStart: 02-24-2024 End: 39-71-7525hpwtyxebbuTKTRZ FAZIONot AvailableStart: 02-22-2024 End: 38-93-5157jbfknizonbVMR RAMEYNot AvailableStart: 02-11-2024 End: 08-62-2018Hjeiwamtb Result EncounterCorey Jacquie DO Work Phone: noms External Department UnsolicitedStart: 02-11-2024 End: 51-12-2403Jsgwaljll Result EncounterCorey Jacquie DO Work Phone: NOMS External Department UnsolicitedStart: 02-11-2024 End: 52-37-3395dhnsfsvieoROIQO FAZIONot AvailableStart: 02-08-2024 End: 43-36-3117kvhuvmbpwnCAFBU FAZIONot AvailableStart: 01-31-2024 End: 29-59-4125Justriwyt department patient visitMD Jacques Del Rosario Work Phone: [facility] Work Phone: Start: 10-08-2021 End: 26-18-0860xylkgcybivHD ZHEN FAZIOFacility:E4Iwajv: 74-78-4815pupmivdlabTI ZHEN FAZIOFacility:Y7Xxiky: 02-11-2021 End: 70-24-0097rufrnslxdgTU ZHEN FAZIOFacility:C5Ijarn: 77-10-6177Yhueecjfua and management of inpatientDR ZHEN FAZIOFacility:I1Wcgwc: 02-05-2021 End: 60-02-4023Vmqrqigpsk and management of inpatientDR ZHEN FAZIOFacility:H1 Start: 01-30-2021 End: 86-47-7573qdzbsvplygWD ZHEN FAZIOFacility:X4Szkkp: 01-29-2021 End: 80-95-6362brskkjwliyLX ZHEN FAZIOFacility:A6Ajkkl: 01-22-2021 End: 76-79-1211lquijcoopuGF ZHEN FAZIOFacility:V1Ljsun: 01-15-2021 End: 70-43-1509exhpkxrorwQR ZHEN FAZIOFacility:L2Siyah: 01-14-2021 End: 76-62-2677fffefgzvchFD ZHEN FAZIOFacility:L3Rjgwo: 01-13-2021 End: 72-54-4019yfssttirpkEL ZHEN FAZIOFacility:G3Ksght: 01-08-2021 End: 11-72-2087gergvctvxhSM JACQUES AHMADIYFacility:N5Qmzxv: 12-31-2020 End: 62-37-7412pedvjrdbsbYM IRINEO [place] WESTFacility:O4Euxvj: 12-19-2020 End: 88-66-7947ffqgrpqzcfLG JACQUES HOYFacility:U0Noisq: 12-12-2020 End: 95-76-3511uuzgwlznmcYA ZHEN FAZIOFacility:R0Abira: 12-05-2020 End: 54-54-7645vodokgvihwYZ ZHEN FAZIOFacility:W9Ebsfs: 12-03-2020 End: 72-97-6246ohekdrszfkPI ZHEN FAZIOFacility:G6Vogdx: 64-01-4199admadbxbhxBW ZHEN FAZIOFacility:H1 Procedures DateProcedureProcedure DetailPerforming ClinicianStart: 65-02-3711Bhlje test visual color cmprsn methsCorey Jacquie DO Work Phone: Start: 10-24-2024H/O: sectionS/P sectionCorey Jacquie DO Work Phone: Start: 05-38-3978Dqq routine ecg w/least 12 lds w/i&r Gerardo Dickey MD Work Phone: Start: 04-24-3942XT OB UMBILICAL ARTERY DOPPLERCorey Jacquie DO Work Phone: Start: 88-60-0065QJ OB GROWTHCorey Jacquie DO Work Phone: Start: 25-34-4961VU OB BPP W NON-STRESSCorey Jacquie DO Work Phone: Start: 05-04-5534EP OB BPP W NON-STRESSCorey Jacquie DO Work Phone: Start: 85-66-8740YSI UA (CLEAN/CATCH) METAL FINISHER/MICRO IF IND.Zhen Jacquie DO Work Phone: Start: 46-93-3506Kfffp dip stick/tablet rgnt non-auto w/o micrscpCorey Jacquie DO Work Phone: Start: 24-75-6749WA ECHO DOPPLER COMPLETECorey Jacquie DO Work Phone: Start: 82-68-3107EF OB UMBILICAL ARTERY DOPPLERCorey Jacquie DO Work Phone: Start: 91-84-2215EW OB GROWTHCorey Jacquie DO Work Phone: Start: 02-07-1226YI OB BPP W NON-STRESSCorey Jacquie DO Work Phone: Start: 08-59-5986Ehqbj dip stick/tablet rgnt non-auto w/o micrscpCorey Jacquie DO Work Phone: Start: 66-00-3570DA OB UMBILICAL ARTERY DOPPLERCorey Jacquie DO Work Phone: Start: 35-94-5409YO OB GROWTHCorey Jacquie DO Work Phone: Start: 77-77-6651FY OB BPP W NON-STRESSCorey Jacquie DO Work Phone: Start: 75-52-1895EP OB BPP WO NON-STRESSCorey Jacquie DO Work Phone: Start: 27-21-2623Wpmtr dip stick/tablet rgnt non-auto w/o micrscpCorey Jacquie DO Work Phone: Start: 76-76-7973JT OB BPP W NON-STRESSCorey Jacquie DO Work Phone: Start: 82-55-6655PD OB BPP WO NON-STRESSCorey Jacquie DO Work Phone: Start: 28-39-0898JI OB BPP W NON-STRESSCorey Jacquie DO Work Phone: Start: 69-06-4254WA OB UMBILICAL ARTERY DOPPLERCorey Jacquie DO Work Phone: Start: 25-86-5911ZFS CBC WITH AUTO DIFFCorey Jacquie DO Work Phone: Start: 71-02-0239LXR HEMOGLOBIN P7ZBbcau Jacquie DO Work Phone: Start: 41-28-8355OTP URINE T PROTEIN CREAT RATIOCorey Jacquie DO Work Phone: Start: 06-03-1814KF OB BPP WO NON-STRESSCorey Jacquie DO Work Phone: Start: 51-94-2311NYC CBC WITH AUTO DIFFCorey Jacquie DO Work Phone: Start: 93-75-9079DH OB CERVICAL LENGTHCorey Jacquie DO Work Phone: Start: 88-92-8179YW OB PLACENTACorey Jacquie DO Work Phone: Start: 01-16-7625EEI UA (CLEAN/CATCH) METAL FINISHER/MICRO IF IND.Zhen Jacquie DO Work Phone: Start: 00-76-1324Ownjl dip stick/tablet rgnt non-auto w/o micrscpAmy Nirmala KERNS Work Phone: Start: 23-09-6186Grlgo dip stick/tablet rgnt non-auto w/o micrscpCorey Jacquie DO Work Phone: Start: 08-46-5367LU OB INCOMPLETE ANATOMYCorey Jacquie DO Work Phone: Start: 62-89-7232Eyomevi quantitative blood xcpt reagent stripGregg Fox MD Work Phone: Start: 46-46-2779ZGH CBC WITH AUTO DIFFAmy Nirmala KERNS Work Phone: Start: 20-24-4566AT OB INCOMPLETE ANATOMYCorey Jacquie DO Work Phone: Start: 09-03-1870Guuor dip stick/tablet rgnt non-auto w/o micrscpAmy Nirmala KERNS Work Phone: Start: 87-60-2389IU OB ANATOMYCorey Jacquie DO Work Phone: Start: 55-17-4958VY OB CERVICAL LENGTHCorey Jacquie DO Work Phone: Start: 14-11-1444Ajiwv dip stick/tablet rgnt non-auto w/o micrscpCorey Jacquie DO Work Phone: Start: 38-96-1277Uztvn dip stick/tablet rgnt non-auto w/o micrscpAmy Nirmala KERNS Work Phone: Start: 84-94-2939OB OB TRANSVAGINALCorey Jacquie DO Work Phone: Start: 50-60-6627Ekupfwccss of Products of Conception, Low Cervical, Open ApproachDR ZHEN FAZIOStart: 60-58-1101Przpghfjseuj of Other Hormone into Peripheral Vein, Percutaneous ApproachDR HZEN FAZIOH/O: sectionS/P sectionAmy Nirmala KERNS Work Phone: Plan of Treatment DateCare ActivityDetailAuthorStart: 81-47-4055Xxkhw BMI ScreeningAdult BMI ScreeningProMedica Health SystemStart: 34-78-0895Oxsdrtl ScreeningTobacco ScreeningTrumbull Regional Medical Centerca Health SystemStart: 49-53-5704Tuywr BMI ScreeningAdult BMI ScreeningProMedica Health SystemStart: 77-39-4521Qxbyjid ScreeningTobacco ScreeningProMedica Health SystemStart: 33-45-4986Uofcx BMI ScreeningAdult BMI ScreeningProParkview Health Bryan Hospitalca Health SystemStart: 85-73-8290Nhoyxkq ScreeningTobacco ScreeningProMedica Health SystemStart: 85-67-2727Xissecz ScreeningTobacco ScreeningProMedica Health SystemStart: 47-93-2419Klwiu BMI ScreeningAdult BMI ScreeningProParkview Health Bryan Hospitalca Health SystemStart: 19-23-3414Wkbrg BMI ScreeningAdult BMI ScreeningProMedica Health SystemStart: 04-30-2025 End: 15-45-1377Cvimsvs encounter gsxetgnub11/29/2025 9:00 AM EDT Office Visit [facility] [address] [place] [address] Gerardo Dickey MD [address] [place] [address] [facility] CardiologyStart: 69-71-6831Nzfxayyql vaccinationInfluenza VaccineTrumbull Regional Medical Centerca [facility] SystemStart: 12-26-2024 End: 84-46-2037Qhszkne encounter wuhshcinn22/27/2025 3:00 PM EDT Office Visit [facility] OB [address] [place] [address] Madisyn Silvestre PA [address] [place], [place] [id number] NOMS BCP OBStart: 10-24-2024 End: 81-85-9679glmstdvrvt43/25/2025 2:10 PM EDT Visit [facility] OB [address] [place] [address] Zhen Dhillon DO [address] [place], [facility] NOMS BCP OBStart: 09-14-2024 End: 54-02-0266Dzpltggfm to same day surgery gfcmsw5309/14/2024 2:00 PM EST - 09/14/2024 3:00 PM EST Surgery [facility] Labor [address] [facility] [place] [phone] Irineo Bueno MD [address] [facility] [facility], [address] [address] REPEAT [75674 (CPT )][facility] LaborComment on above: REPEAT [96888 (CPT )]Start: 09-14-2024 End: 75-71-6064Nfumhdtr delivery attempted vbacC-SECTION REPEAT 09/14/2024 2:00 PM ESTTOLEDValerie LD ORStart: 10-86-4068Uokhmklbvq hospital visit by physician 09/14/2024 2:00 PM EST Hospital Encounter [facility] - Labor [address] [place] [address] Irineo Bueno MD [address] [facility], [address] [address] [facility] - LaborStart: 09-08-2024 End: 93-79-9397Mqfhrrk encounter wkhromxru96/07/2025 10:30 AM EST Office Visit [facility] [address] [place] [address] Gerardo Dickey MD [address] [place] [address] [facility]iologyStart: 09-05-2024 End: 88-02-8613Kujyauj encounter ynzgzreda87/04/2025 10:40 AM EST Routine [facility] [address] [place] [address] Zhen Dhillon, DO [address] [place] [address] [facility]OMS BCP OBStart: 08-30-2024 End: 96-42-6307Johljgr encounter eptqzaqnd95/29/2025 10:30 AM EST Office Visit [facility] [address] [place] [phone] Sanam Cesar MD [address] [place] [address] [facility] CardiologyStart: 08-29-2024 End: 99-46-0679Kctpbqp encounter procedureNOMS BCP OBComment on above:Arrived Start: 08-22-2024 End: 87-03-2042Txxdxdn encounter oyffvpxpc05/21/2025 2:30 PM EST Routine [facility] [address] [place] [address] Zhen Dhillon, DO [address] [place] [address] [facility] BCP OBStart: 08-14-2024 End: 29-44-6937Tdblhme encounter ukhupnnlz96/13/2025 3:30 PM EST Routine [facility] [address] [place] [address] Zhen Dhillon, DO [address] [place] [address] [place] [address] [facility]OMS BCP OBStart: 07-31-2024 End: 11-51-0172Fvipfyo encounter procedureNOMS BCP OBComment on above:Arrived Start: 07-17-2024 End: 33-35-1871Ymxtgiy encounter vwiqyjdya68/16/2024 3:20 PM EST Routine [facility] [address] [place] [address] Zhen Dhillon, [address] [place] [address] [facility] BCP OBStart: 07-17-2024 End: 51-98-3643Dnsuhffjpizh / ancillary services hyjjptrnbx53/16/2024 3:00 PM EST Ancillary Procedure [facility] [address] [place] [address] [facility]OM[facility] BCP OBStart: 07-17-2024 End: 21-60-8331IE biophysical profile w non stress testUS biophysical profile w non stress test Imaging Routine Third trimester Gestational diabetes mellitus (GDM) in third trimester, gestational diabetes method of control unspecified Hypertension, unspecified type ([facility]) Expected: 07/17/2024 (Approximate), Expires: 07/17/2025N[facility]S HealthcareComment on above: Expected: 07/17/2024 (Approximate), Expires: 07/17/2025Start: 07-17-2024 End: 71-57-1016II for pregnancyUS OB SCAN FOR GROWTH Imaging Routine Third trimester Gestational diabetes mellitus(GDM) in third trimester, gestational diabetes method of control unspecified Hypertension, unspecified type ([facility]) Expected: 07/17/2024 (Approximate), Expires: 07/17/2025[facility] Work Phone: comment on above:Expected: 07/17/2024 (Approximate), Expires: 07/17/2025Start: 07-14-2024 End: 29-28-1972Lflplmh encounter procedureMaternal Medicine Donnelly Start: 06-15-2024 End: 79-79-0782Riwcvgz encounter rakrzbbxj18/14/2024 3:30 PM EST Routine [facility] [address] [place] [address] Madisyn Silvestre PA [address] [place] [address] [facility] BCP OBStart: 06-15-2024 End: 99-90-3278PLJ panel - Blood by Automated countCBC Lab Routine Diabetes mellitus screening Expected: 06/15/2024 (Approximate), Expires: 06/15/2025[facility] Work Phone: comment on above:Expected: 06/15/2024 (Approximate), Expires: 06/15/2025Start: 06-15-2024 End: 61-65-4686Ojmoqtenuia of glucose 1 hour after glucose challenge for glucose tolerance testGlucose tolerance, 1 hour Lab Routine Diabetes mellitus screening Expected: 06/15/2024 (Approximate), Expires: 06/15/2025[facility] CenterComment on above:Expected: 06/15/2024 (Approximate), Expires: 06/15/2025Start: 05-18-2024 End: 28-33-7874Qytkaom encounter bsbordqms22/17/2024 11:40 AM EDT Office Visit [facility] [address] [facility] [facility] [place] [phone] Zhen Dhillon DO [address] [place] [address] [facility] BCP OBStart: 05-18-2024 End: 31-38-1961Anpzjgcvrmsw / ancillary services pnrhmyohnz68/17/2024 10:30 AM EDT Ancillary Procedure [facility] OB [address] [place] [phone] [facility]OM[facility] BCP OBStart: 04-20-2024 End: 72-43-7774Amofr fetoprotein, maternalAlpha fetoprotein, maternal Lab Routine Second trimester Expected: 04/20/2024 (Approximate), Expires: 04/20/2025[facility] Work Phone: comment on above:Expected: 04/20/2024 (Approximate), Expires: 04/20/2025Start: 04-20-2024 End: 01-22-7038GJ for pregnancyUS OB ANATOMY SINGLE W US OB CERVICAL LENGTH Imaging Routine Screening, , for anatomic survey Expected: 04/20/2024 (Approximate), Expires: 04/20/2025[facility] HealthcareComment on above: Expected: 04/20/2024 (Approximate), Expires: 04/20/2025Start: 04-20-2024 End: 12-62-6525Sbqkxgr encounter procedureNOSHASTA REGIONAL [facility] OBComment on above:Arrived Start: 43-89-1776Hvmiqssrk vaccinationInfluenza VaccineProParkview Health Bryan Hospitalca Health System Start: 03-22-2024 End: 22-88-9856Avhcuwz encounter lytxqtand38/21/2024 11:20 AM EDT Routine [facility] [address] [place] [phone] Zhen Dhillon, DO [address] [place] [address] ArrivedNOSHASTA REGIONAL MEDICAL [facility]ENTER OBComment on above: ArrivedStart: 89-15-6025Tnritrrzu for malignant neoplasm of cervixPap Smear [facility] SystemStart: 13-60-0234VQcD,Tdap and Td Vaccines (1 - Tdap) DTaP,Tdap and Td Vaccines (1 - Tdap)[facility] SystemStart: 2015 Adult BMI Follow Up PlanAdult BMI Follow Up PlanThe [facility] Hospital SystemStart: 63-35-1349Nrfvq BMI ScreeningAdult BMI ScreeningThe [facility] Hospital SystemStart: 01-31-0584Cuhbaswfxu ScreeningDepression ScreeningMission Hospital McDowelltart: 61-95-4850Mrerksl ScreeningTobacco ScreeningAdams County HospitalAldosterone [Mass/volume] in Serum or [facility] CampusCBC W Auto Differential panel - BloodCBC and differential Lab Routine Abnormal CBC Ordered: 03/22/2024[facility] Work Phone: comment on above:Ordered: 03/22/2024efuroxime free [Mass/volume] in Serum or [facility] CampusComprehensive metabolic 2000 panel - Serum or [facility] Hemoglobin A1c/Hemoglobin.total in BloodHemoglobin A1c Lab Routine Gestational diabetes mellitus (GDM), delivered, current hospitalization Ordered: 10/24/2024 [facility] Work Phone: comment on above:Ordered: 10/24/2024Patient Education - The Second Month High Blood [facility]Select [facility] Work Phone: Patient referralSelect [facility] Work Phone: Renin [Enzymatic activity/volume] in PlasmaCincinnati Va Medical CenterRheumatoid factor [Units/volume] in Serum or Plasma [facility] CenterUS Heart TransthoracicCincinnati Va Medical CenterUS Unspecified body [facility] Immunizations Immunization DateImmunizationNotesCare OepisyxnBpteebls78-29-9118tdowrgkb [place]-nathaniel vaccineCanyon Ridge Hospital Ezequiel DO Work Phone: [facility]08-11-2003diphtheria, tetanus toxoids and acellular pertussis vaccine, unspecified formulationKaBrecksville VA / [facility] DO Work Phone: [facility]08-11-2003measles, mumps and rubella virus vaccineMulticare Health DO Work Phone: [facility]08-11-2003poliovirus vaccine, inactivatedKaitlyn Ezequiel DO Work Phone: [phone] [place], [place] [address]202-26-1999diphtheria, tetanus toxoids and acellular pertussis vaccine, unspecified formulationKaitlyn Ezequiel DO Work Phone: [phone] [place], [place] [id number] influenzae type b vaccine, conjugate unspecified formulationKaitlyn Ezequiel DO Work Phone: [phone] [place], [place] [id number] vaccine, inactivatedKaitlyn Ezequiel DO Work Phone: [phone] [place], [place] [id number], mumps and rubella virus vaccineKaitlyn Ezequiel DO Work Phone: [phone] [place], [place] [id number], tetanus toxoids and acellular pertussis vaccine, unspecified formulationKaitlyn Ezequiel DO Work Phone: [phone] [place], [place] [id number] influenzae type b conjugate and Hepatitis B vaccineKaitlyn Ezequiel DO Work Phone: [phone] [place], [place] [id number], tetanus toxoids and acellular pertussis vaccine, unspecified formulationKaitlyn Ezequiel DO Work Phone: [phone] [place], [place] [id number] vaccine, inactivatedKaitlyn Ezequiel DO Work Phone: [phone] [place], [place] 5674210-24-1997diphtheria, tetanus toxoids and acellular pertussis vaccine, unspecified formulationKaitlyn Ezequiel DO Work Phone: [phone] [place], [place] 5674210-24-1997haemophilus influenzae type b conjugate and Hepatitis B vaccineKaitlyn Ezequiel DO Work Phone: [phone] [place], [place] 5674210-24-1997poliovirus vaccine, inactivatedKaitlyn Ezequiel DO Work Phone: [phone] [place], [place] 5674208-04-1997hepatitis B vaccine, pediatric or pediatric/adolescent Mariomanjutomas Ezequiel DO Work Phone: [facility] Payers DatePayer CategoryPayerPolicy [id number] [id number] Private Health [id number] 75-31-9182Smbzxij Health [id number] 2023Medicaid [facility] [id number] [id number] [id number] 2.1.420346.3.57[id number] .1.136817.3.579.2.46571-75-0381Pnalpxj4491101 .1.264599.3.579.2.45624-46-7474Ecmirzp4013546 .1.297463.3.579.205319-33-8839Aiwfgcz0611343 2.16.840.1.105522.3.579.2.70660-65-8348Oonmrov2170548 2.16.840.1.403103.3.579.2.77313-51-8593Thgvgkc1353511 2.16.840.1.152693.3.579.2.05918-05-9087Liwpiod5692536 2.16.840.1.266339.3.579.2.76357-34-7930Ghgbzma8876332 2.16.840.1.064504.3.579.2.68176-64-9409Xcyvzix2604178 2.16.840.1.626363.3.579.2.26395-97-1827Wtyalbc6556335 2.16.840.1.626975.3.579.2.10068-15-6049Pydtttk2457247 2.16.840.1.829993.3.579.2.22285-32-2779Eookeao6462579 2.16.840.1.932959.3.579.2.68658-76-8869Opdranq7393337 2.16.840.1.505408.3.579.2.10897-87-9021Oxrnqbf7034006 2.16.840.1.116131.3.579.2.50297-17-5611Oxmzkmw5847313 2.16.840.1.678700.3.579.2.86868-01-1946Znxyzic3441606 2.16.840.1.631189.3.579.2.05938-89-0253Gvjefkx0362314 2.16.840.1.914630.3.579.2.11410-64-1189Nzzrfnl972239406 2.16.840.1.201215.3.579.2.080443-86-6509Vemwwjr562574066 2.16.840.1.144728.3.579.2.925175-88-2928Iwbdiny888840423 2.16.840.1.637665.3.579.2.777881-18-6843Firzgpn10627356 2.16.840.1.989968.3.579.2.684619-92-7508Fcvpxuk333198345 2.16840.1.135367.3.579.2.767230-13-0158Jkezlgx879207335 2.16840.1.272639.3.579.2.310100-17-3436Gtslwua146893370 2.16840.1.603488.3.579.2.249593-86-1316Syrhkoc818534134 2.840.1.059997.3.579.2.454486-38-3022Iurjggn870150511 2.16840.1.346809.3.579.2.571821-57-0726Ygvktbx935583715 2.16840.1.817816.3.579.2.145683-70-4333Yyiqepe3295358 2.840.1.028284.3.579.2.963766-19-7548Bnxnlqr4548082 2.840.1.433574.3.579.2.886972-95-7326Vtzvnsf0181454 2.16840.1.967720.3.579.2.005292-84-6500Wnvgbzt6060720 2.16840.1.759804.3.579.2.365853-88-5887Kacrmgn7759487 2.16840.1.713965.3.579.2.280854-62-3748Zfvigig9276073 2.16840.1.456715.3.579.2.406883-07-5440Critkny9468635 2.160.1.411729.3.579.2.172533-54-0843Fypcmxp5160358 2.16.840.1.330610.3.579.2.618871-77-3933Ybamsan9336174 2.0.1.601041.3.579.2.550594-89-5210Gyemahy5176186 2.160.1.794019.3.579.2.933260-02-1352Jgcfbnr7194006 2.0.1.098676.3.579.2.508997-47-9768Zgdmcpk7773681 2.0.1.381187.3.579.2.357656-25-9042Hnukpdx2488478 2.0.1.152735.3.579.2.796634-97-9346Swybdko2734420 2.0.1.604019.3.579.2.712540-04-3932Njbgunu3733746 2.0.1.175300.3.579.2.872482-58-9964Bewqroy85603249516864-46-2492Mmezxqd 8831682412996-62-5107BpfkjgnBH1911871Fufrwkn93691149 2..1.353725.3.579.2.531 Social History DateTypeDetailFacilityStart: 50-75-6126yveascvdNnjmoqywrCincinnati Va Medical Center Start: 32-15-8300Sbyflss smoking status NHISNever smoked tobacco (finding) [facility] Clinictart: 39-90-3942Zhx Assigned At BirthFemale [facility] Medical CenterTobacco smoking status NHISTobacco smoking consumption unknownENCOMPASS HEALTH HealthcareStart: 63-14-3015Ulb assigned at birthNot on fileNOMS HealthcareStart: 08-23-2020 End: 49-49-5205Natqvr identityNot on [facility] CenterStart: 07-14-2024 End: 80-13-9503Uoxkoue smoking status NHISEx-smokerAdams County Hospital History of tobacco useCurrent smokerAdams County HospitalHistory of tobacco useCigarette SmokerMission Hospital McDowelltart: 10-07-2020 End: 47-02-2490Vsnuesf use and exposureSmokeless tobacco non-userMission Hospital McDowelltart: 08-15-2024 End: 12-54-5553Tlyiuncsu beverage intakeEx-drinker (finding)[facility] McDowelltart: 08-23-2020 End: 33-50-2572Gxagehb of Social functionMission Hospital McDowelltart: 40-87-6669GzfzluckjYjjnrtkIrwFhfwic Health SystemStart: 10-07-2020 End: 74-86-8820Yhadtyo Commentquit 3 years agoMission Hospital McDowelltart: 05-59-8991JcmMfbkuz (finding)[facility] Medical Equipment Procedure CodeEquipment CodeEquipment Original TextEquipment IdentifierDates [id number]: 07-17-2024 End: each by In Vitro route Daily Use to check FSBS four times daily [id number]: 07-17-2024 End: 29-43-7972Kqwtjk 1 each under the skin [id number]: 08-23-2024 End: 93-13-7195Ljhhng 1 each under the skin See administration instructions Use four times daily with insulin pen.[id number]: 08-22-2024 End: 08-23-2024 Clinical Notes 02-05-2021 to 05-18-2025 Note Date & ZpeyTuyvFxqbejca06-38-9977 Evaluation note* Diagnosis Onset Date Resolution Status Admit Date Chronic pain acuteOctober 2024 9:01amEczema of both external earsacuteOctober 2024 9:01amFamily history of lupusacuteOctober 2024 9:01amGeneralized anxiety disorderacuteOctober 2024 9:01amHypertensionacuteOctober 2024 9:01amPulmonary hypertensionacuteOctober 2024 9:01am [facility] Work Phone: 1(157) 517-589710-17-2025 Evaluation note* Diagnosis Onset Date Resolution Status Admit Date Chronic pain acuteOctober 2024 9:01amEczema of both external earsacuteOctober 2024 9:01amFamily history of lupusacuteOctober 2024 9:01amGeneralized anxiety disorderacuteOctober 2024 9:01amHypertensionacuteOctober 2024 9:01amPulmonary hypertensionacuteOctober 2024 9:01amFamily history of lupusacuteOctober 2024 11:20amPositive JASWINDER (antinuclear antibody)acute June 01, 2025 11:20amPsoriasisacuteOctober 2024 11:20amChronic pain acuteNov2024 3:49pmGeneralized anxiety disorderacuteNovember 2024 3:49pmHypertensionacuteNovember 2024 3:49pmObesity (BMI 30-39.9)acute June 04, 2025 3:49pmPositive JASWINDER (antinuclear antibody)acuteNov2024 3:49pmPulmonary hypertensionacuteNovember 2024 3:49pm [facility] Work Phone: 1(156) 720-203809-25-2025 Miscellaneous Notes* Telephone Encounter - Angela Hodgson - 04/26/2025 8:57 AM EDT LMOM for pt to return call to [facility] regarding her upcoming appt on 04/30 and her ins being OON. documented in this encounterAdams County Hospital09-25-2025 Telephone encounter Note* Telephone Encounter - Angela Hodgson - 04/26/2025 8:57 AM EDT LMOM for pt to return call to [facility] regarding her upcoming appt on 04/30 and her ins being OON. [facility]03-25-[facility] History of Present illness Narrative* Judie Gutierrez, DEHYDROGENATION OPERATOR HEAD - 10/24/2024 2:10 PM EDT Reason for [...] Procedure Laterality Date SECTION, LOW TRANSVERSE 09/14/2024 [facility] REVIEW OF SYSTEMS Review of Systems: Review [...] nursing note reviewed. Exam conducted with a hostel parent present. Vitals: Estimated body mass index is [...] of: Zhen Dhillon DO documented in this encounterSaint Joseph Health CenterJgdprjdnly89-37-7909 History of Present illness Narrative* LUIS F [...] of: LUIS F Tarango documented in this encounterSaint Joseph Health CenterLrpojbpkro05-07-7300 Miscellaneous Notes* Telephone Encounter - Terra Lundberg [...] She is scheduled for a section at [facility] 09/14/[address] Bueno was notified who will be the attending special collections librarian We will also reach out to the patient primary OB for an update TERRA LUNDBERG MD documented in this encounterAdams County Hospital02-07-2025 Telephone encounter Note* Telephone Encounter - Terra [...] She is scheduled for a section at [facility] 09/14/[address] Bueno was notified who will be the attending special collections librarian We will also reach out to the patient primary OB for an update TERRA LUNDBERG MD [facility]02-07-2025 History of Present illness Narrative* Gerardo Dickey [...] (10 Units total) nightly. miscellaneous medical supply [facility] by miscellaneous route once. Pen for Gestational Diabetes, test strips omeprazole (PriLOSEC) 20 mg capsule Take 1 capsule (20 mg total) by mouth in the morning. 90 capsule 3 ONETOUCH ULTRA TEST strip TEST WITH 1 STRIP IN MORNING BEFORE BREAKFAST,1 HOUR AFTER EACH MEAL FOR A TOTAL OF 4 TIMES A DAY ONETOUCH ULTRA2 METER [facility] USE TO CHECK FASTING BLOOD SUGAR BEFORE BREAKFAST & 1 HR AFTER EACH MEAL FOR TOTAL OF 4 TIMES DAILY No current facility-administered medications for this visit. Chief Complaint Patient presents with New Patient OUTREACH EDUCATOR PULM HTN 36 WKS GESTATION ECHO @ [facility] SCHED W PT History of Present Illness Echocardiogram from [place] done 08/25/24 report reviewed. Images not available. [...] of 134 beats per minute, normal mechanical NE interval of 114 milliseconds Other: No pericardial [...] ( GUMMY ORAL) IMPRESSIONS/PLAN 1. Pulmonary hypertension ([facility] [place] [place] [facility] PO[facility] E[facility] 2. 35 weeks gestation of - [facility] [place] [place] 3. Chronic hypertension affecting 4. Tachycardia [...] cardiology standpoint We discussed that over the terminal operations manager she should have continued evaluation of her blood pressure, etcetera for risk factor modification. I would anticipate a repeat echo in 3-5 years to assess left ventricular thickness, etcetera TODAYS ORDERS Orders Placed This Encounter Procedures POCT EKG FOLLOW UP Return for 6-9 months. PCP: JACQUES DEL ROSARIO MD Referring Physician: Terra Lundberg MD [address], [address] [place] [address] documented in this encounterTrumbull Regional Medical CenterMAINtag Kresge Eye InstituteArxajz20-43-3677 Miscellaneous Notes* Telephone Encounter - Terra Lundberg [...] care TERRA LUNDBERG MD documented in this encounterAdams County Hospital02-04-2025 Telephone encounter Note* Telephone Encounter - Terra [...] for transfer of care TERRA LUNDBERG MD [facility]02-04-2025 Miscellaneous Notes* Telephone Encounter - Terra Lundberg MD - 09/05/2024 3:38 PM EST Called patient with report from her echocardiogram Mild pulmonary hypertension on report with RVSP 37 mmgh The patient denies any cardiac symptoms. No OB complaints. I reviewed with the patient that I would recommend urgent cardiology evaluation and delivery at tertiary [facility] center. Delivery has been recommended at 37 weeks by repeat . We will also reach to the patient primary OB to convey these recommendations Before not able to arrange outpatient Cardiology the patient will have to be admitted prior to delivery for cardiology consultation and evaluation of the pulmonary hypertension TERRA LUNDBERG MD documented in this encounterAdams County Hospital02-04-2025 Telephone encounter Note* Telephone Encounter - Terra [...] of the pulmonary hypertension TERRA LUNDBERG MD [employer] Muoevd01-24-3023 History of Present illness Narrative* Sanam Cesar MD - 09/05/2024 10:30 AM EST [address] [facility] [address] September 05, 2024 Patient: Samantha Benjamin Date [...] is scheduled for Section on 09/14/24 at [facility]. Ms Samantha Benjamin is accompanied by her [...] (10 Units total) nightly. miscellaneous medical supply [facility] by miscellaneous route once. Pen for Gestational Diabetes, test strips omeprazole (PriLOSEC) 20 mg capsule Take 1 capsule (20 mg total) by mouth in the morning. 90 capsule 3 ONETOUCH ULTRA TEST strip TEST WITH 1 STRIP IN MORNING BEFORE BREAKFAST,1 HOUR AFTER EACH MEAL FOR A TOTAL OF 4 TIMES A DAY ONETOUCH ULTRA2 METER [facility] USE TO CHECK FASTING BLOOD SUGAR BEFORE [...] with normal heart rate with normal mechanical NE interval. I did not appreciate any ectopy.The [...] any contraindication for delivery to occur in [facility] facility. Since small septal defects, minor valve [...] echocardiogram it can be done in the [facility] since I am responsible for reading [...] queries or concerns. Sincerely, Sanam Cesar M.D. [facility] This note is dictated with the use of M*Modal.Please note that this dictation was completed with computer voice recognition software. Quite often unanticipated grammatical, syntax, homophones, and other interpretive errors are inadvertently transcribed by the computer software. Please disregard these errors. Please excuse any errors that have escaped final proofreading. documented in this encounterTrumbull Regional Medical CenterMAINtag Kresge Eye InstituteVgxkbe48-04-5144 History of Present illness Narrative* Judiechristal Gutierrez, [...] nursing note reviewed. Exam conducted with a hostel parent present. Vitals: Estimated body mass index is [...] of: Zhen Dhillon DO documented in this encounterSaint Joseph Health CenterMpnmmyjobc03-53-7045 History of Present illness Narrative* Judie Gutierrez [...] to check FSBS. Blood Glucose Monitoring Suppl (D-Elli Glucometer) w/Device kit 1 kit, Does not [...] nursing note reviewed. Exam conducted with a hostel parent present. Vitals: Estimated body mass index is [...] times a day. Pt has appt at [facility] on 08/30/24. Reviewed glucose log with pt - initial prescription of Lantus sent in for pt. Pt to stay on labetalol 300 TID. Orders Placed This Encounter Procedures POCT urinalysis dipstick manually resulted Follow Up: Patient is to return to office in 2 week for routine OB appointment. Documented by Judie Gutierrez LPN on behalf of: Zhen Dhillon DO documented in this encounterSaint Joseph Health CenterTricemvdfn47-09-1032 History of Present illness Narrative* Judie Stearns RDMS - 08/16/2024 1:35 PM EST Called patient 08/15/24 and 08/16/24 to inform patient of date and time for the Pediatric Cardiology Consultation. L/M for patient to return my call. documented in this encounterAdams County Hospital01-14-2025 History of Present illness Narrative* Terra Lundberg MD - 08/15/2024 9:15 AM EST Video Visit via Real-time Synchronous Audiovisual Provider Location: [facility] [address] [address] Patient Location: Other [place] Office Patient Location Movie Machine Operator: None Video Visit Consent Statement: [...] that there are some limitations compared to lwcm-rq-impr evaluations. We elected to proceed. REASON FOR [...] outflow tracts on ultrasound BMI 40.0-44.9, adult ([facility]) Past Medical History: Diagnosis Date Anxiety Chronic [...] and the other consultants, we search on [employer] and all the available care everywhere epic I did review all the imaging studies of the patient available on EMR, ordered by the primary care physician and the other data integrity consultant HABITS: Patient activity no restrictions, diet [...] more likely to fail compared to insulin. alf data on children whose mothers took oral [...] Chronic hypertension affecting 4. BMI 40.0-44.9, adult ([facility]) Denies signs and symptoms of preeclampsia and [...] of labor - if you would like [facility] to start managing the patient diabetes please [...] patient is in complete care of her band straightener. Patient does have ultrasound appointment scheduled with us. Thank you for allowing me to participate in Samantha Benjamin . If there any questions pleasedo not hesitate to contact us. Sincerely, Terra Lundberg MD, FACOG (she/hers) Maternal- Medicine [facility] [address] [facility] [address] [place] [address] documented in this encounterTrumbull Regional Medical CenterMAINtag Kresge Eye InstituteJzygao44-47-3723 History of Present illness Narrative* Angela Butt, DEHYDROGENATION OPERATOR HEAD - 08/14/2024 3:30 PM EST Reason for Appointment: Patient ID: Samantha Benjamin is a 29 y.o. female who presents for No chief complaint on file. Patient presents today for Return OB appointment. MEDICATIONS Current Outpatient Medications Medication Instructions Alcohol Swabs (Alcohol Prep Pad) 70 % pads 1 Pad, Topical, Daily, Use four times daily to check FSBS. Blood Glucose Monitoring Suppl ([employer]-Elli Glucometer) w/Device kit 1 kit, Does not [...] nursing note reviewed. Exam conducted with a hostel parent present. Vitals: Estimated body mass index is [...] of: Zhen Dhillon DO documented in this encounterSaint Joseph Health CenterChrrvowbxu59-66-4961 History of Present illness Narrative* LUIS F [...] of: LUIS F Tarango documented in this encounterSaint Joseph Health CenterAznrqafdcw52-89-5180 History of Present illness Narrative* Angela Butt, DEHYDROGENATION OPERATOR HEAD - 07/17/2024 3:20 PM EST Reason for [...] of: Zhen Dhillon DO documented in this encounterSaint Joseph Health CenterStxgkvlygq63-02-8610 History of Present illness Narrative* Betzaida Nails [...] yes Have you been seen here at [facility] in a previous ? no Recent ER visits or hospitalizations? no Bring blood sugar log or meter with you today? (Please bring them with you for every visit at [facility]) no Flu vaccine (Jun-September)? no Any [...] outflow tracts on ultrasound BMI 40.0-44.9, adult ([facility]) Past Medical History: Diagnosis Date Anxiety Chronic [...] and the other consultants, we search on [employer] and all the available care everywhere epic I did review all the imaging studies of the patient available on EMR, ordered by the primary care physician and the other data integrity consultant HABITS: Patient activity no restrictions, diet [...] her 3 hour glucose tolerance test, refer [facility] for diabetes management.. 8. Patient came more than 1 hour late for her ultrasound appointment and therefore has been rescheduled at our [facility] site. DISPOSITION: At this point the patient is in complete care of her band straightener. Patient does have ultrasound appointment scheduled with us. Thank you for allowing me to participate in Samantha Benjamin . If there any questions pleasedo not hesitate to contact us. Sincerely, GREGG FOX MD documented in this encounterAdams County Hospital11-14-2024 History of Present illness Narrative* LUIS F [...] of: LUIS F Tarango documented in this encounterSaint Joseph Health CenterPtzxfikxpx02-31-5253 History of Present illness Narrative* Angela Francoismessi, ASIA - 05/18/2024 11:40 AM EDT Reason for [...] nursing note reviewed. Exam conducted with a hostel parent present. Vitals: Estimated body mass index is [...] of MSAFP orders to have drawn at [facility] in [place]. Documented by Angela Butt LPN on behalf of: Zhen Dhillon DO documented in this encounterSaint Joseph Health CenterSguicpzjno25-56-0198 History of Present illness Narrative* LUIS F [...] of: LUIS F Tarango documented in this encounterSaint Joseph Health CenterFzrvcnfugg10-95-5138 History of Present illness Narrative* Judie Gutierrez, DEHYDROGENATION OPERATOR HEAD - 03/22/2024 11:20 AM EDT Reason for [...] nursing note reviewed. Exam conducted with a hostel parent present. Vitals: Estimated body mass index is [...] undercooked meat, and stay away from [facility]. Patient has been consulted regarding any further do's and don'tsof . Patient voiced understanding and all questions and concerns were answered. Scheduled c- section 09/14/24. No orders of the defined types were placed in this encounter. Follow Up: Patient is to return in 4 weeks for routine OB appointment. Documented by Judie Gutierrez LPN on behalf of: Zhen Dhillon DO documented in this encounterSaint Joseph Health CenterLtuqvcgznr40-36-7941 NoteOPERATIVE NOTE OPERATION DATE: 02-06-21 ANESTHETIC:Spinal with Duramorph. MIXING MACHINE OPERATOR:ELVIA Prajapati PREOPERATIVE DIAGNOSIS: 1. Intrauterine at [...] to the Recovery Room in stable condition. [facility] Signed and Approved by: DR ZHEN DHILLON . 02/11/2021 11:15:00[facility]07-07-2021 NoteDISCHARGE SUMMARY Discharge Date: 02-09-21 PRIMARY [...] Tylenol, any abdominal pain unrelieved with narcotics. [facility] Signed and Approved by: DR ZHEN DHILLON . 02/25/2021 23:13:00[facility]al[facility] noteNo assessment information availableSelect Medical Specialty [facility] Work Phone: Evaluation note* Diagnosis 20 weeks gestation of Second trimester state, incidental [facility]* Diagnosis Second trimester state, incidental 24 weeks gestation of Diabetes mellitus screening Screening for diabetes mellitus Elevated blood pressure affecting in first trimester, antepartum High blood pressure affecting in first trimester, antepartum Heartburn during in second trimester documented in [facility] encounter [facility]* Diagnosis Third trimester state, incidental 28 weeks gestation of Gestational diabetes mellitus (GDM) in third trimester, gestational diabetes method of control unspecified Hypertension, unspecified type ([facility]) Gestational diabetes mellitus (GDM), antepartum, gestational diabetes method of control unspecified Elevated glucose tolerance test Impaired glucose tolerance test documented in [facility] encounter [facility]* Diagnosis Second trimester state, incidental Abnormal CBC Other abnormal blood chemistry documented [facility]* Diagnosis Screening, , for anatomic survey Encounter for anatomic survey Well woman exam with routine gynecological exam Routine gynecological examination Screen for STD (sexually transmitted disease) Screening examination for venereal disease Vaginal discharge Leukorrhea, not specified as infective Second trimester state, incidental documented in [facility]* Diagnosis Third trimester state, incidental 30 weeks gestation of documented in [facility] encounter [facility]* Diagnosis 32 weeks gestation of Third trimester state, incidental documented in [facility]* Diagnosis 32 weeks gestation of - Primary Gestational diabetes mellitus (GDM) in third trimester, gestational diabetes method of control unspecified Chronic hypertension affecting BMI 40.0-44.9, adult ([facility]) arrhythmia affecting , antepartum Abnormality in heart rate/rhythm, antepartum condition or complication Polyhydramnios affecting Separation of chorion and amnion membranes, antepartum documented [facility] encounter [facility]* Diagnosis Abnormal ultrasonic finding on screening of mother, antepartum- Primary documented in this encounter [facility]* Diagnosis Third trimester state, incidental 34 weeks gestation of Insulin controlled gestational diabetes mellitus (GDM) during , antepartum documented [facility]* Diagnosis 34 weeks gestation of Third trimester state, incidental documented in [facility]* Diagnosis Pulmonary hypertension ([facility])- Primary Other chronic pulmonary heart diseases 35 weeks gestation of documented in this encounter [facility]* Diagnosis Pulmonary hypertension ([facility] [facility] Primary Other chronic pulmonary heart diseases 35 weeks gestation of Chronic hypertension affecting Tachycardia Unspecified tachycardia [facility] this [facility] Diagnosis arrhythmia affecting , antepartum- Primary Abnormality in heart rate/rhythm, antepartum condition or complication Abnormal ultrasonic finding on screening of mother, antepartum Anomaly of heart of fetus affecting , antepartum, single or unspecified fetus [facility]* Diagnosis Gestational diabetes mellitus (GDM), antepartum, gestational diabetes method of control unspecified- Primary Chronic hypertension affecting documented [facility] this [facility]* Diagnosis Encounter for visit S/P section Other postprocedural status documented [facility] Diagnosis 6 weeks follow-up S/P section Other postprocedural status Gestational diabetes mellitus (GDM), delivered, current hospitalization documented in this encounter [facility]* Diagnosis Onset Date Resolution Status Admit Date Chronic pain acuteOctober 2024 9:01amEczema of both external earsacuteOctober 2024 9:01amFamily history of lupusacuteOctober 2024 9:01amGeneralized anxiety disorderacuteOctober 2024 9:01amHypertensionacuteOctober 2024 9:01amPulmonary hypertensionacute[facility] 9:01am [facility] Work Phone: Instructions* Attachments The following attachments cannot be sent through Care Everywhere. * Preeclampsia (Maldivian) * labor (Maldivian) documented in this encounterProCommunity [facility] Health SystemInstructionsNot on file documented in this encounterProMediMAINtag Health SystemInstructionsNot on file documented in this encounterProMediMAINtag Health SystemInstructionsNot on file documented in this encounterProMedica Health SystemInstructionsNot on file documented in this encounterProMediMAINtag Health SystemInstructionsNot on file documented in this encounterProMediMAINtag Health SystemInstructionsNot on file documented in this encounterProCommunity Hospital Health SystemInstructionsNot on file documented in this encounterProCommunity Hospital Health SystemInstructionsNot on file documented in this [email or web address] SystemInstructionsNot on file documented in this encounterProParkview Health Bryan HospitalMAINtag Health SystemReason for referral (narrative)No reason for referral information availableWilson Street [facility] Work Phone: Summary Purpose Family History Relationship Condition Age at Onset Recorded Date/T geena mother Lupus Unknown FibromyalgiaUnknownRheumatoid arthritisUnknownfatherDiabetes mellitusUnknown HypertensionUnknown Advance Directives Advance Directive Response Recorded Date/ Time Advance Directives No January 30 3:45pm Date ActivatedDate InactivatedComments09/14/2024 9:11 AM09/16/2024 4:09 PM Advance Directive Response Recorded Date/ Time Advance Directives No January 30 2:45pm Chief Complaint and Reason for Visit Chief [...] 9 :01am Pulmonary hypertension May 18 9:01am Chief Complaint Admit Date EST PCP May 18, 2025 9 :01am REF DR ARIZMENDI ABNORMAL IMMUNOLOGICAL [facility] 2024 11:20am Chief Complaint Admit Date EST PCP May 18, 2025 9 :01am REF DR ARIZMENDI ABNORMAL IMMUNOLOGICAL [facility] 2024 11:20am 2 week June 04, 2025 3 :49pm Reason for Visit Admit Date Chronic pain May 18, 2025 9 :01am Eczema of both external ears May 9:01am Family history of lupus May 18 9:01am Generalized anxiety disorder May 9:01am Hypertension May 18, 2025 9 :01am Pulmonary hypertension May 18 9:01am Family history of lupus June 01 11:20am Positive JASWINDER (antinuclear antibody) [facility] 2024 11:20am Psoriasis June 01, 2025 1 1:20am Chronic pain June 04, 2025 3 :49pm Generalized anxiety disorder June 3:49pm Hypertension June 04, 2025 3 :49pm Obesity (BMI 30-39.9) June 04, 2025 3:49pm Positive JASWINDER (antinuclear antibody) Angelica rosado 2024 3:49pm Pulmonary hypertension June 04 3:49pm Additional Source Comments INFORMATION SOURCE (unrecogn ized section and content) DATE CREATED AUTHOR 10/15/2021 [facility] DATE CREATED AUTHOR AUTHOR'S ORGANIZ ATION 09/10/2024 [facility] DATE CREATED AUTHOR AUTHOR'S ORGANIZ ATION 09/13/2024 [facility] DATE CREATED AUTHOR AUTHOR'S ORGANIZ ATION 09/16/2024 [facility] DATE CREATED AUTHOR AUTHOR'S ORGANIZ ATION 10/25/2024 [facility] DATE CREATED AUTHOR AUTHOR'S ORGANIZ ATION 05/24/2025 [facility] Care Teams (unrecognized sec tion and content) Team Status: Active Member Role Status Dates Jacques Del Rosario MD Primary Care Provider Active Team Status: Inactive Member Role Status Dates Jacques Del Rosario MD Primary Care Provider Active Start: January 31, 2024 End: January 30Olga Mcfarlane ProviderActiveStart: January 31, 2024 End: January 31, 2024Team MemberRelationshipSpecialtyStart DateEnd Date Jacques Del Rosario MD [address] [facility] [place] [address] PCP - GeneralMercyone Oelwein Medical Centerly Medicine02/08/24Team MemberRelationshipSpecialtyStart DateEnd Date Jacques Del Rosario MD [address] [facility] [place] [address] PCP - Generalmi Medicine02/08/24Team MemberRelationshipSpecialtyStart DateEnd Date Jacques Del Rosario MD [address] [facility] [place] [address] PCP - Generalmi Medicine02/08/24Team MemberRelationshipSpecialtyStart DateEnd Date Jacquse Del Rosario MD [address] [facility] [place] [address] [facility] - [facility]Lem[facility]02/08/24Team MemberRelationshipSpecialtyStart DateEnd Date Jacques Del Rosario MD [address] [facility] [place] [address] PCP - Generalmily Medicine02/08/24Team MemberRelationshipSpecialtyStart DateEnd Date Jacques Del Rosario MD [address] [facility] [place] [address] PCP - [facility] Medicine02/08/24Team MemberRelationshipSpecialtyStart DateEnd Date Jacques Del Rosario MD [address] [facility] [place] [address] PCP - GeneralFamily Medicine02/08/24Team MemberRelationshipSpecialtyStart DateEnd Date Jacques Del Rosario MD [address] [facility] [place] [address] PCP - GeneralFamily Medicine02/08/24Team MemberRelationshipSpecialtyStart DateEnd Date Jacques Del Rosario MD [address] [facility] [place] [address] PCP - GeneralFamily Medicine02/08/24Team MemberRelationshipSpecialtyStart DateEnd Date Jacques Del Rosario MD [address] [facility] [place] [address] PCP - GeneralFamily Medicine02/08/24Team MemberRelationshipSpecialtyStart DateEnd Date Jacques Del Rosario MD [address] [facility] [place] [address] PCP - GeneralFamily Medicine02/08/24Team MemberRelationshipSpecialtyStart DateEnd Date Jacques Del Rosario MD [address] [facility] [place] [address] PCP - GeneralFamily Medicine02/08/24Team MemberRelationshipSpecialtyStart DateEnd Date Jacques Del Rosario MD [address] [facility] [place] [address] PCP - GeneralFamily Medicine02/08/24Team MemberRelationshipSpecialtyStart DateEnd Date Jacques Del Rosario MD PCP - GeneralFamily Medicine10/07/20Team MemberRelationshipSpecialtyStart DateEnd Date Jacques Del Rosario MD PCP - GeneralFamily Medicine10/07/20Team MemberRelationshipSpecialtyStart DateEnd Date Jacques Del Rosario MD PCP - GeneralFamily Medicine10/07/20Team MemberRelationshipSpecialtyStart DateEnd Date Jacques Del Rosario MD [address] [facility] [place] [address] PCP - GeneralFamily Medicine02/08/24Team MemberRelationshipSpecialtyStart DateEnd Date Jacques Del Rosario MD [address] [facility] [place] [address] PCP - GeneralFamily Medicine02/08/24Team MemberRelationshipSpecialtyStart DateEnd Date Jacques Del Rosario MD [address] [facility] [place] [address] PCP - GeneralFamily Medicine02/08/24Team MemberRelationshipSpecialtyStart DateEnd Date Jacques Del Rosario MD PCP - GeneralFamily Medicine10/07/20Team MemberRelationshipSpecialtyStart DateEnd Date Jacques Del Rosario MD PCP - GeneralFamily Medicine10/07/20Team MemberRelationshipSpecialtyStart DateEnd Date Jacques Del Rosario MD PCP - GeneralFamily Medicine10/07/20Team MemberRelationshipSpecialtyStart DateEnd Date Jacques Del Rosario MD [address] [facility] [place] [address] PCP - GeneralFamily Medicine02/08/24Team MemberRelationshipSpecialtyStart DateEnd Date Jacques Del Rosario MD PCP - GeneralFamily Medicine10/07/20Team MemberRelationshipSpecialtyStart DateEnd Date Jacques Del Rosario MD PCP - GeneralFamily Medicine10/07/20Team MemberRelationshipSpecialtyStart DateEnd Date Jacques Del Rosario MD PCP - GeneralFamily Medicine10/07/20Team MemberRelationshipSpecialtyStart DateEnd Date Jacques Del Rosario MD PCP - GeneralFamily Medicine10/07/20Team MemberRelationshipSpecialtyStart DateEnd Date Jacques Del Rosario MD PCP - GeneralFamily Medicine10/07/20Team MemberRelationshipSpecialtyStart DateEnd Date Jacques Del Rosario MD [address] [facility] [place] [address] PCP - GeneralFamily Medicine02/08/24Team MemberRelationshipSpecialtyStart DateEnd Date Jacques Del Rosario MD PCP - GeneralMercyone Oelwein Medical Centerly Medicine10/07/20 Team Status: Active Member Role/Relationship Status Dates Fely Arizmendi , DO Primary Care Provider Active Team Status: Inactive Member Role/Relationship Status Dates Fely Arizmendi , DO Primary Care Provider Active Start: May 18, 2025 End: May 18, 2025Aundrealou Arizmendi , DOAttending ProviderActiveStart: May 18, 2025 End: May 18, 2025 Team Status: Inactive Member Role/Relationship Status Dates Fely Arizmendi , DO Primary Care Provider Active Start: June 01, 2025 End: June 01assam Eduardo MDAttending ProviderActiveStart: June 01, 2025 End: June 01, 2025Team MemberRelationshipSpecialtyStart DateEnd Date Jacques Del Rosario MD [address] [place] [address] [facility]02/08/24 Team Status: Inactive Member Role/Relationship Status Dates Fely Arizmendi , DO Primary Care Provider Active Start: June 04, 2025 End: June 04, 2025Karenriolou Arizmendi , DOAttending ProviderActiveStart: June 04, 2025 End: June 04, 2025 Goals (unrecognized section and content) Goals [...] encounterGoals may be documented in an alternate sectionGoals may be documented in an alternate sectionGoals may be documented in an alternate section Reason for Visit (unrecogniz ed section and content) ReasonCommentsRoutine VisitReasonCommentsNew PatientNP PULM HTN 36 WKS GESTATION ECHO @ AGUEDA SCHED W PTSpecialtyDiagnoses / ProceduresReferred By ContactReferred To ContactCardiology Diagnoses Pulmonary hypertension (CMS-HCC) 35 weeks gestation of Terra Lundberg MD [address], [address] [place] [address] Phone: tel: fax: Antonio Harden MD [address] [place] [address] Phone: tel: fax: Referral IDStatusReasonStart DateExpiration DateVisits RequestedVisits [id number] Review Specialty Services Required [id number] Observation of PACsSpecialtyDiagnoses / ProceduresReferred By ContactReferred To ContactPediatric Cardiology Diagnoses Abnormal ultrasonic finding on screening of mother, antepartum Terra Lundberg MD [address], [address] [place] [address] Phone: tel: fax: Sanam Cesar MD [address] [address] Phone: tel: fax: Referral IDStatusReasonStmilanville DateExpiration DateVisits RequestedVisits [id number] Review Specialty Services Required [id number] blood glucose levelsHypertension ReasonCommentsPost-op VisitReasonCommentsPost-op VisitPostpartum Follow-up [...] BE BASED ON THE PRIMARY CLINICAL RECORDS. [facility] [employer] [facility]. provides no warranty or guarantee of the accuracy or completeness of information in this document.
--- OUTSIDE RECORDS SUMMARY | 2025-06-13 07:40 | XMS_ITS | Encounter Summary ---
Author Organization [facility] Address [address] [place] [address] Care Team Providers Care Generation Engineering Technologist Name Role Phone Hernán Mccarthy MD Primary Care Provider [phone] Encounter Details DateTypeDepartmentCare Team (Latest Contact Info)Ptluoexxpqi32/09/2025Clinisync Result Encounter [facility] External Department Unsolicited Scotty Dhillon, DO [address] [facility] [place] [address] Social History Tobacco UseTypesPacks/DayYears UsedDateSmoking Tobacco: Never Assessed CommentsYesSex and Gender InformationValueDate RecordedSex Assigned at BirthNot on fileLegal OerItfpbw90/15/2023 11:47 PM EDTGender IdentityNot on fileSexual OrientationNot on filedocumented as of this encounter Plan of Treatment Not on file documented as of this encounter Procedures Procedure NamePriorityDate/TimeAssociated DiagnosisCommentsUS OB BPP W NON-WFTUOF9808/10/2024 2:45 PM EST documented in this encounter Results * US OB BPP W NON-STRESS (08/10/2024 2:45 PM EST)Anatomical Region LateralityModalityOtherSpecimen (Source)Anatomical Location / Laterality Collection Method / VolumeCollection TimeReceived Time08/10/2024 2:45 PM EST Narrative 08/10/2024 2:48 PM EST [facility] ?[address] ? [place] [address] ? Ultrasound Report ? Signed ? Patient: SOURAV,SAMANTHA N ?MR#: [id number] ?? : 1995 ?Acct:[id number] ?? Age/Sex: 29 / F ?ADM Date: 08/10/ ?? Loc: [facility] ??250-1 ? Attending Dr: Scotty Dhillon D.O. ? Ordering Physician: Scotty Dhillon D.O. ?? Date of Service: 08/10/24 ?? Procedure(s): US OB BPP w non-stress ?? Accession Number(s): [id number] ? cc: Scotty Dhillon D.O.; Hernán Mccarthy M.D. ? [facility] ? [address] ? [place] [address] ? Patient Name: ?? SAMANTHA BENJAMIN ? MRN: [facility]:[id number] ? date: 1995 ?Sex: F ?? Assigned Patient Location: [facility] ?? Current Patient Location: [facility] ?? Accession/Order Number: [id number] ?? Exam Date: 08/10/2024 ??14:15 ?Report Date: 08/10/2024 ??14:45 ? At the request of: ?? SCOTTY ??JACQUIE ? Procedure: ??US OB BPP w non-stress ? EXAMINATION: US OB BPP w non-stress ? HISTORY: Gestational diabetes mellitus ? COMPARISON: No relevant comparison available. ? TECHNIQUE: Ultrasound biophysical profile was performed in the radiology ?? department. non-reactive stress testing was performed by nursing staff ?? in ?? the birthing center. ? FINDINGS: ?? BREATHING MOVEMENTS: 2 ?? GROSS BODY MOVEMENTS: 2 ?? TONE: 2 ? QUALITATIVE AMNIOTIC FLUID VOLUME: 2 ?? PRESENTATION: CEPHALIC ?? HEART RATE: 156.98 bpm ?? AMNIOTIC FLUID VOLUME: 28.3 cm, polyhydramnios ?? GESTATIONAL AGE: 32 weeks 0 days ? US/US OB BPP w non-stress ?? IMPRESSION: ? Total biophysical profile score: 8 ? Polyhydramnios ? Electronically authenticated by: IRINEO ??GARRET ?? Date: 08/10/2024 ??14:45 ? Dictated By: ?Irineo Combs M.D. ? Signed By: ?08/10/24 1448 ? DD/ ? TD/TT: ? Print Support Specialist: Procedure Note Radiology, Radiologist, MD - 08/10/[address] [address] Ultrasound Report Signed Patient: SAMANTHA BENJAMIN NMR#: [id number] : 1995Acct:[id number] Age/Sex: 29 / FADM Date: 08/10/24 Loc: [facility] 250-[address]: Scotty Dhillon D.O. Ordering Physician: Scotty Dhillon D.O. Date of Service: 08/10/24 Procedure(s): US OB BPP w non-stress Accession Number(s): [id number] cc: Scotty Dhillon D.O.; Hernán Mccarthy M.D. The [address] [address] Patient Name: SAMANTHA BENJAMIN MRN: [id number]:[id number] date: 1995 Sex: F Assigned Patient Location: [facility] Current Patient Location: [facility] Accession/Order Number: [id number] Exam Date: 08/10/2024 14:15 Report Date: 08/10/2024 14:45 At the request of: SCOTTY DHILLON Procedure: US OB BPP w non-stress EXAMINATION: US OB BPP w non-stress HISTORY: Gestational diabetes mellitus COMPARISON: No relevant comparison available. TECHNIQUE: Ultrasound biophysical profile was performed in the radiology department. non-reactive stress testing was performed by nursingstaff in the birthing center. FINDINGS: BREATHING MOVEMENTS: 2 GROSS BODY MOVEMENTS: 2 TONE: 2 QUALITATIVE AMNIOTIC FLUID VOLUME: 2 PRESENTATION: CEPHALIC HEART RATE: 156.98 bpm AMNIOTIC FLUID VOLUME: 28.3 cm, polyhydramnios GESTATIONAL AGE: 32 weeks 0 days US/US OB BPP w non-stress IMPRESSION: Total biophysical profile score: 8 Polyhydramnios Electronically authenticated by: IRINEO COMBS Date: 08/10/2024 14:45 Dictated By: Irineo Combs M.D. Signed By:08/10/24 1448 DD/ 44 TD/TT: Print Support Specialist: Authorizing ProviderResult TypeResult StatusCorey Jacquie DOCLINISYNC IMAGINGFinal Result documented in this encounter Visit Diagnoses Not on filedocumented in this encounter Care Teams Team MemberRelationshipSpecialtyStart DateEnd Date Hernán Mccarthy MD [address] [place] [address] PCP - GeneralFamily Medicine02/08/24documented as of this encounter
--- OUTSIDE RECORDS SUMMARY | 2025-06-13 07:40 | XMS_ITS | Encounter Summary ---
Author Organization [facility] Address [address] [place] [address] Care Team Providers Care Manager Intelligence Name Role Phone Hernán Mccarthy MD Primary Care Provider [phone] Encounter Details DateTypeDepartmentCare Team (Latest Contact Info)Vjtqwijafla98/16/2024Clinisync Result Encounter [facility] External Department Unsolicited Scotty Dhillon, DO [address] [facility] [place] [address] Social History Tobacco UseTypesPacks/DayYears UsedDateSmoking Tobacco: Never Assessed CommentsYesSex and Gender InformationValueDate RecordedSex Assigned at BirthNot on fileLegal RxjYcqgow58/15/2023 11:47 PM EDTGender IdentityNot on fileSexual OrientationNot on filedocumented as of this encounter Plan of Treatment Not on file documented as of this encounter Procedures Procedure NamePriorityDate/TimeAssociated DiagnosisCommentsUS OB INCOMPLETE ZPNCKSD0107/17/2024 3:54 PM EST documented in this encounter Results * US OB INCOMPLETE ANATOMY (07/17/2024 3:54 PM EST)Anatomical RegionLaterality ModalityOtherSpecimen (Source)Anatomical Location / LateralityCollection Method / VolumeCollection TimeReceived Time07/17/2024 3:54 PM EST Narrative 07/17/2024 3:57 PM EST [facility] [place] ?[address] ? [place] [address] ? Ultrasound Report ? Signed ? Patient: SOURAV,SAMANTHA N ?MR#: [id number] ?? : 1995 ?Acct:[id number] ?? Age/Sex: 29 / F ?ADM Date: 12/16/24 ?? Loc: [facility] ? Attending Dr: Scotty Dhillon D.O. ? Ordering Physician: Scotty Dhillon D.O. ?? Date of Service: 07/17/24 ?? Procedure(s): US OB incomplete anatomy ?? Accession Number(s): [id number] ? cc: Scotty Dhillon D.O.; Hernán Mccarthy M.D. ? The [facility] ? [address] ? [place] [address] ? Patient Name: ?? SAMANTHA Spence SOURAV ? MRN: [facility]:[id number] ? date: 1995 ?Sex: F ?? Assigned Patient Location[facility] ?? Current Patient Location: [facility] ?? Accession/Order Number: [id number] ?? Exam Date: 07/17/2024 ??15:11 ?Report Date: 07/17/2024 ??15:54 ? At the request of: ?? SCOTTY ??LAURIE ? Procedure: ??US OB incomplete anatomy ? EXAM: US OB incomplete anatomy ? HISTORY: Follow-up ultrasound of anatomy Z36.2 ? COMPARISON: 06/15/2024 ? TECHNIQUE: Transabdominal images ? FINDINGS: ? position: Breech presentation, oblique lie ? Heart rate: 167 beats minute ? Normal observed anatomy: RVOT, four-chamber heart ? Non observed anatomy: LVOT ? Abnormalities: Incidental hyperechogenic focus in the ventricle ? US/US OB incomplete anatomy ?? IMPRESSION: ? The left ventricular outflow track could not be visualized ? Electronically authenticated by: IRINEO ??WEST ?? Date: 07/17/2024 ??15:54 ? Dictated By: ?Irineo Combs M.D. ? Signed By: ?07/17/24 1557 ? DD/ 1554 ? TD/TT: ? Pattern Ruler: Procedure Note Radiology, Radiologist, MD - 07/17/2024 [place] [address] Ultrasound Report Signed Patient: SAMANTHA BENJAMIN [facility]#: [id number] : 1995Acct:[id number] Age/Sex: 29 / FADM Date: 07/17/24 Loc: [facility] Attending Dr: Scotty Dhillon D.O. Ordering Physician: Scotty Dhillon D.O. Date of Service: 07/17/24 Procedure(s): US OB incomplete anatomy Accession Number(s): [id number] cc: Scotty Dhillon D.O.; Hernán Mccarthy M.D. [address] [address] Patient Name: SAMANTHA BENJAMIN MRN: [facility]:[id number] date: 1995 Sex: F Assigned [facility] Current Patient Location: [facility] Accession/Order Number: [id number] Exam Date: 07/17/2024 15:11 Report Date: 07/17/2024 15:54 At the request of: SCOTTY DHILLON Procedure: [...] not be visualized Electronically authenticated by: IRINEO COMBS Date: 07/17/2024 15:54 Dictated By: Irineo Combs M.D. Signed By:07/17/24 1557 DD/ 1554 TD/TT: Pattern Ruler: Authorizing ProviderResult TypeResult StatusCorenona Dhillon DOCLINISYNC IMAGINGFinal Result documented in this encounter Visit Diagnoses Not on filedocumented in this encounter Care Teams Team MemberRelationshipSpecialtyStart DateEnd Date Hernán Mccarthy MD [address] [place] [address] PCP - GeneralFamily Medicine02/08/24documented as of this encounter
--- OUTSIDE RECORDS SUMMARY | 2025-06-13 07:40 | XMS_ITS | Encounter Summary ---
Author Organization [facility] Address [address] [place] [address] Care Team Providers Care Premium Auditor Name Role Phone Hernán Mccarthy MD Primary Care Provider [phone] Encounter Details DateTypeDepartmentCare Team (Latest Contact Info)Hlhaahxwunl37/04/2025Clinisync Result Encounter [facility] External Department Unsolicited Scotty Dhillon, DO [address] [facility] [place] [address] Social History Tobacco UseTypesPacks/DayYears UsedDateSmoking Tobacco: Never Assessed CommentsYesSex and Gender InformationValueDate RecordedSex Assigned at BirthNot on fileLegal NhtHbdpgz92/15/2023 11:47 PM EDTGender IdentityNot on fileSexual OrientationNot on filedocumented as of this encounter Plan of Treatment Not on file documented as of this encounter Procedures Procedure NamePriorityDate/TimeAssociated DiagnosisCommentsTBH URINE T PROTEIN CREAT USVMCMsgxzjq2025 5:20 PM EST US OB BPP WO NON-XZFVGZ4708/05/2024 12:28 PM EST documented in this encounter Results * TBH URINE T PROTEIN CREAT RATIO (08/05/2024 5:20 PM EST)ComponentValueRef RangeTest MethodAnalysis TimePerformed AtPathologist SignatureTOTAL PROTEIN URINE RANDOM7.4<=11.9 mg/dLTBHComment:Period: 24 hours; Volume: 4,725 mL CREATININE URINE ULSIAS69.5420.00 - 300.00 mg/dLTBHComment:Period: 24 hours; Volume: 4,725 mLPROTEIN CREATININE RATIO URINE0.24TBHSpecimen (Source) Anatomical Location / LateralityCollection Method / VolumeCollection Time Received Time08/05/2024 5:20 PM EST08/05/2024 5:23 PM EST Narrative [facility] - 08/05/2024 7:19 PM EST Authorizing ProviderResult TypeResult StatusCorey Jacquie DOCLINISYNCFinal Result Performing OrganizationAddressCity/State/ZIP CodePhone Number [facility] * US OB BPP WO NON-STRESS (08/05/2024 12:28 PM EST)Anatomical Region LateralityModalityOtherSpecimen (Source)Anatomical Location / Laterality Collection Method / VolumeCollection TimeReceived Time08/05/2024 12:28 PM EST Narrative 08/05/2024 12:31 PM EST The [facility] ?[address] ? [place] [address] ? Ultrasound Report ? Signed ? Patient: SAMANTHA BENJAMIN N ?MR#: [id number] ?? : 1995 ?Acct:[id number] ?? Age/Sex: 29 / F ?ADM Date: ?? Loc: [facility] ??258-1 ? Attending Dr: Scotty Dhillon D.O. ? Ordering Physician: Scotty Dhillon D.O. ?? Date of Service: 08/05/24 ?? Procedure(s): US OB BPP wo non-stress ?? Accession Number(s): [id number] ? cc: Scotty Dhillon D.O.; Hernán Mccarthy M.D. ? [facility] ? [address] ? [place] [address] ? Patient Name: ?? SAMANTHA Spence SOURAV ? MRN: [id number]:[id number] ? date: 1995 ?Sex: F ?? Assigned Patient Location: [facility] ?? Current Patient Location: ? Accession/Order Number: [id number] ?? Exam Date: 08/05/2024 ??11:25 ?Report Date: 08/05/2024 ??12:28 ? At the request of: ?? SCOTTY ??JACQUIE ? Procedure: ??US OB BPP wo non-stress ? EXAM: US OB BPP wo non-stress ? HISTORY: poly ? COMPARISON: Ultrasound obstetrical placenta dated 08/04/2024. ? TECHNIQUE: Routine sonographic biophysical profile. ? FINDINGS: ?? Single live intrauterine in cephalic presentation with a heart ? rate of 150 bpm. ? Sonographic biophysical profile: ?? breathing movements: Adequate, score 2 ?? gross body movements: Adequate, score 2 ?? tone: Adequate, score 2 ?? Qualitative amniotic fluid volume: Adequate, score 2 ?? Total sonographic biophysical profile score: 8/8 ? Polyhydramnios with the amniotic fluid index measuring 27.2 cm with the ?? largest ?? pocket measuring 8.9 cm on the current examination and 30.1 cm with the ?? largest ?? pocket measuring 10 cm on the previous examination. ? US/US OB BPP wo non-stress ?? IMPRESSION: ?? Single live intrauterine in cephalic presentation with a heart ? rate of 150 bpm. ? Normal sonographic physical profile with a score of 8/8. ? Stable polyhydramnios with the amniotic fluid index measuring 27.2 cm with the ? largest pocket measuring 8.9 cm ? Electronically authenticated by: SANTANA ??HUGH ?? Date: 08/05/2024 ??12:28 ? Dictated By: ?Santana Bryan M.D. ? Signed By: ?08/05/24 1231 ? DD/ 1228 ? TD/TT: ? Flow Worker: Procedure Note Radiology, Radiologist, - 08/05/2024 [place] [address] Ultrasound Report Signed Patient: SAMANTHA BENJAMIN [facility]#: [id number] : 1995Acct:[id number] Age/Sex: 29 FADM Date: Loc: [facility] 258-[address]: Scotty Dhillon D.O. Ordering Physician: Scotty Dhillon D.O. Date of Service: 08/05/24 Procedure(s): US OB BPP wo non-stress Accession Number(s): [id number] cc: Scotty Dhillon D.O.; Hernán Mccarthy M.D. [facility] [address] [place], [place] [address] Patient Name: SAMANTHA BENJAMIN MRN: [facility]:[id number] date: 1995 Sex: F Assigned Patient Location: [facility] Current Patient Location: Accession/Order Number: [id number] Exam Date: 08/05/2024 11:25 Report Date: 08/05/2024 12:28 At the request of: SCOTTY DHILLON Procedure: US OB BPP wo non-stress EXAM: US OB BPP wo non-stress HISTORY: poly COMPARISON: Ultrasound obstetrical placenta dated 08/04/2024. TECHNIQUE: Routine sonographic biophysical profile. FINDINGS: Single live intrauterine in cephalic presentation with a fetalheart rate of 150 bpm. Sonographic biophysical profile: [...] live intrauterine in cephalic presentation with a fetalheart rate of 150 bpm. Normal sonographic physical profile with a score of 8/8. Stable polyhydramnios with the amniotic fluid index measuring 27.2 cm withthe largest pocket measuring 8.9 cm Electronically authenticated by: SANTANA BRYAN Date: 08/05/2024 12:28 Dictated By: Santana Bryan M.D. Signed By:08/05/24 1231 DD/ 1228 TD/TT: Flow Worker: Authorizing ProviderResult TypeResult StatusCorey Jacquie DOCLINISYNC IMAGINGFinal Result documented in this encounter Visit Diagnoses Not on filedocumented in this encounter Care Teams Team MemberRelationshipSpecialtyStart DateEnd Date Hernán Mccarthy MD [address] [place] [address] PCP - GeneralFamily Medicine02/08/24documented as of this encounter
--- OUTSIDE RECORDS SUMMARY | 2025-06-13 07:40 | XMS_ITS | Encounter Summary ---
Author Organization [facility] Address [address] [place] [address] Care Team Providers Care New Business Clerk Name Role Phone Hernán Mccarthy MD Primary Care Provider [phone] Encounter Details DateTypeDepartmentCare Team (Latest Contact Info)Bbktupwmpad65/03/2025Clinisync Result Encounter [facility] External Department Unsolicited Scotty Dhillon, DO [address] [facility] [place] [address] Social History Tobacco UseTypesPacks/DayYears UsedDateSmoking Tobacco: Never Assessed CommentsYesSex and Gender InformationValueDate RecordedSex Assigned at BirthNot on fileLegal YqqJtgpgc39/15/2023 11:47 PM EDTGender IdentityNot on fileSexual OrientationNot on filedocumented as of this encounter Plan of Treatment Not on file documented as of this encounter Procedures Procedure NamePriorityDate/TimeAssociated DiagnosisCommentsUS OB CERVICAL LENGTH 08/04/2024 9:12 PM EST documented in this encounter Results * US OB CERVICAL LENGTH (08/04/2024 9:12 PM EST)Anatomical RegionLaterality ModalityOtherSpecimen (Source)Anatomical Location / LateralityCollection Method / VolumeCollection TimeReceived Time08/04/2024 9:12 PM EST Narrative 08/04/2024 9:15 PM EST [facility] [place] [facility] ?[address] ? [place] [address] ? Ultrasound Report ? Signed ? Patient: SOURAV,SAMANTHA N ?MR#: [id number] ?? : 1995 ?Acct:[id number] ?? Age/Sex: 29 / F ?ADM Date: ?? Loc: [facility] ??258-1 ? Attending Dr: Scotty Dhillon D.O. ? Ordering Physician: Scotty Dhillon D.O. ?? Date of Service: 08/04/24 ?? Procedure(s): US OB cervical length ?? Accession Number(s): [id number] ? cc: Scotty Dhillon D.O.; Hernán Mccarthy M.D. ? [facility] ? [address] ? [place] [address] ? Patient Name: ?? SAMANTHA BENJAMIN ? MRN: [facility]:[id number] ? date: 1995 ?Sex: F ?? Assigned Patient Location: [facility] ?? Current Patient Location: [facility] ?? Accession/Order Number: [id number] ?? Exam Date: 08/04/2024 ??18:00 ?Report Date: 08/04/2024 ??21:12 ? At the request of: ?? SCOTTY ??JACQUIE ? Procedure: ??US OB cervical length ? EXAMINATION: US OB placenta, US OB cervical length ? HISTORY: abdominal pain ? COMPARISON: Ultrasound OB incomplete anatomy 07/17/2024 ? FINDINGS: ? PLACENTA: Anterior. ?? CERVIX LENGTH: 4.0 cm in length with small amount of fluid within cervical ?? canal. ?? HEART RATE: 149 bpm ?? OTHER: Cephalic presentation. ?? AMNIOTIC FLUID: 13.1 cm (polyhydramnios). ? US/US OB cervical length ?? IMPRESSION: ? 1. Anterior placenta without [...] ?08/04/242114 ? DD/ 11 ? TD/TT: ? [employer] Insurance Agent: Procedure Note Radiology, Radiologist, MD - 08/04/2024 [place] [address] Ultrasound Report Signed Patient: SAMANTHA BENJAMIN NMR#: [id number] : 1995Acct:[id number] Age/Sex: 29 / FADM Date: Loc: [facility] 258-[address]: Scotty Dhillon D.O. Ordering Physician: Scotty Dhillon D.O. Date of Service: 08/04/24 Procedure(s): US OB cervical length Accession Number(s): [id number] cc: Scotty Dhillon D.O.; Hernán Mccarthy M.D. [place] [address] Patient Name: SAMANTHA BENJAMIN MRN: [id number] date: 1995 Sex: F Assigned Patient Location: [facility] Current Patient Location: [facility] Accession/Order Number: [id number] Exam Date: 08/04/2024 18:00 Report Date: 08/04/2024 [...] Kern M.D. Signed By:08/04/242114 DD/ 11 TD/TT: [employer] Insurance Agent: Authorizing ProviderResult TypeResult StatusCorey Jacquie DOCLINISYNC IMAGINGFinal Result documented in this encounter Visit Diagnoses Not on filedocumented in this encounter Care Teams Team MemberRelationshipSpecialtyStart DateEnd Date Hernán Mccarthy MD [address] [place] [phone] PCP - GeneralFamily Medicine02/08/24documented as of this encounter
--- OUTSIDE RECORDS SUMMARY | 2025-06-13 07:40 | XMS_ITS | Clinical Summary ---
Author Organization [facility] Address [address] [place] [address] Care Team Providers Care Pricing/Signage Team Member Name Role Phone Hernán Mccarthy MD Primary Care Provider [phone] Allergies No known active allergies Medications MedicationSigDispense QuantityRefillsLast FilledStart DateEnd DateStatus omeprazole (PriLOSEC) [address] capsule Indications:Heartburn during in second trimester ([facility])Take 1 capsule (20 mg) by mouth in the morning. Take before meals. Do not crush or chew.. 30 capsule /5Active norethindrone (Micronor) 0.35 MG tablet Indications:6 weeks follow-up ([facility]),S/P sectionTake 1 tablet (0.35 mg) by mouth Daily 28 tablet /[id number] citalopram (CeleXA) 20 MG tablet Indications:Anxiety, generalizedTake 1 tablet (20 mg) by mouth in the morning. 30 tablet 11011/03/954710/6Active Active Problems ProblemNoted DateDiagnosed Date6 weeks follow-up ([facility])10/24/2024 S/P ipegynr9910/24/2024 Family History Medical HistoryRelationNameCommentsSleep apneaFatherRelationNameStatusComments Father Social History Tobacco UseTypesPacks/DayYears UsedDateSmoking Tobacco: Never Assessed CommentsNoSex and Gender InformationValueDate RecordedSex Assigned at BirthNot on fileLegal FcjVvwopi44/15/2023 11:47 PM EDTGender IdentityNot on fileSexual OrientationNot on file Last Filed Vital Signs Vital SignReadingTime TakenCommentsBlood Uebbkahd655/8410/24/2024 2:41 PM EDT Pulse--Temperature--Respiratory Rate--Oxygen Saturation--Inhaled Oxygen Concentration--Gposjm16.5 kg (206 lb 1.9 oz)10/24/2024 2:41 PM NPLOffgox770 cm (5' 3 )02/22/2024 10:05 AM EDTBody Mass Index36.51002/22/2024 10:05 AM EDT Plan of Treatment Not on file Insurance Care Teams Team MemberRelationshipSpecialtyStart DateEnd Hernán Mccarthy MD [address] [place] [address] PCP - GeneralFamily Medicine02/08/24
--- OUTSIDE RECORDS SUMMARY | 2025-06-13 07:40 | XMS_ITS | Encounter Summary ---
Author Organization [facility] Address [address] [place] [address] Care Team Providers Care Residential Support Specialist Name Role Phone Hernán Mccarthy MD Primary Care Provider [phone] Encounter Details DateTypeDepartmentCare Team (Latest Contact Info)Gqilvxlbdqj43/07/2025Clinisync Result Encounter [facility]S External Department Unsolicited Scotty Dhillon, DO [address] [facility] [place] [address] Social History Tobacco UseTypesPacks/DayYears UsedDateSmoking Tobacco: Never Assessed CommentsYesSex and Gender InformationValueDate RecordedSex Assigned at BirthNot on fileLegal QcuIxrpur32/15/2023 11:47 PM EDTGender IdentityNot on fileSexual OrientationNot on filedocumented as of this encounter Plan of Treatment Not on file documented as of this encounter Procedures Procedure NamePriorityDate/TimeAssociated DiagnosisCommentsUS OB BPP WO NON-KZLSRL4908/08/2024 8:57 AM EST documented in this encounter Results * US OB BPP WO NON-STRESS (08/08/2024 8:57 AM EST)Anatomical Region LateralityModalityOtherSpecimen (Source)Anatomical Location / Laterality Collection Method / VolumeCollection TimeReceived Time08/08/2024 8:57 AM EST Narrative 08/08/2024 8:59 AM EST [facility] ?[address] ? [place] [address] ? Ultrasound Report ? Signed ? Patient: SOURAV,SAMANTHA N ?MR#: [id number] ?? : 1995 ?Acct:[id number] ?? Age/Sex: 29 / F ?ADM Date: 08/07/ ?? Loc: [facility] ??253-1 ? Attending Dr: Scotty Dhillon D.O. ? Ordering Physician: Scotty Dhillon D.O. ?? Date of Service: 08/08/24 ?? Procedure(s): US OB BPP wo non-stress ?? Accession Number(s): [id number] ? cc: Scotty Dhillon D.O.; Hernán Mccarthy M.D. ? [facility] ? [address] ? [place] [address] ? Patient Name: ?? SAMANTHA Spence SOURAV ? MRN: [facility]:[id number] ? date: 1995 ?Sex: F ?? Assigned Patient Location: [facility] ?? Current Patient Location: [facility] ?? Accession/Order Number: [id number] ?? Exam Date: 08/08/2024 ??07:01 ?Report Date: 08/08/2024 ??08:57 ? At the request of: ?? SCOTTY ??LAURIE ? Procedure: ??US OB BPP wo non-stress ? EXAMINATION: US OB BPP wo non-stress ? HISTORY:repeat BPP, 01/07 ? COMPARISON: Ultrasound OB biophysical 08/07/2024 ? TECHNIQUE: Ultrasound biophysical profile was performed in the radiology ?? department. ? BREATHING MOVEMENTS: 0 ?? GROSS BODY MOVEMENTS: 2 ?? TONE: 2 ?? QUALITATIVE AMNIOTIC FLUID VOLUME: 2 ? PRESENTATION: CEPHALIC ?? HEART RATE: 142.86 bpm ?? AMNIOTIC FLUID VOLUME: 30.44 cm ?? GESTATIONAL AGE: 31 weeks 5 days ? US/US OB BPP wo non-stress ?? IMPRESSION: ? 1. Total biophysical profile score: 6 ?? 2. Polyhydramnios. ? Electronically authenticated by: PILLO ??DOMINGO ?? Date: 08/08/2024 ??08:57 ? Dictated By: ?Pillo Kern M.D. ? Signed By: ?08/08/24 0859 ? DD/ 0857 ? TD/TT: ? Psychiatric Nursing Assistant: Procedure Note Radiology, Radiologist, MD - 08/08/[address] [address] Ultrasound Report Signed Patient: SAMANTHA BENJAMIN NMR#: [id number] : 1995Acct:[id number] Age/Sex: 29 / FADM Date: 08/07/24 Loc: [facility] 253-[address]: Scotty Dhillon D.O. Ordering Physician: Scotty Dhillon D.O. Date of Service: 08/08/24 Procedure(s): US OB BPP wo non-stress Accession Number(s): [id number] cc: Scotty Dhillon D.O.; Hernán Mccarthy M.D. [place] [id number] Patient Name: SAMANTHA BENJAMIN MRN: [id number] date: 1995 Sex: F Assigned Patient Location: [facility] Current Patient Location: [facility] Accession/Order Number: [id number] Exam Date: 08/08/2024 07:01 Report Date: 08/08/2024 08:57 At the request of: SCOTTY DHILLON Procedure: [...] Electronically authenticated by: PILLO KERN Date: 08/08/2024 08:57 Dictated By: Pillo Kern M.D. Signed By:08/08/24 0859 DD/ TD/TT: Psychiatric Nursing Assistant: Authorizing ProviderResult TypeResult StatusCorenona Dhillon DOCLINISYNC IMAGINGFinal Result documented in this encounter Visit Diagnoses Not on filedocumented in this encounter Care Teams Team MemberRelationshipSpecialtyStart DateEnd Date Hernán Mccarthy MD [address] [place] [phone] PCP - GeneralFamily Medicine02/08/24documented as of this encounter
== END 2025-06-13 07:38 | disposition home or self-care (01) ==
LOC: US 07:37
PROVIDERS: PCP Student in an Organized Health Care Education/Training Program; Visit Provider Student in an Organized Health Care Education/Training Program
DX: I10 Essential (primary) hypertension (principal)
CPT/HCPCS: 76775; 93975